=== PATIENT | female | born 1945 | race Caucasian/White ===

== ENCOUNTER 2016-08-23 16:09 | Inpatient (IN) | payer MEDICAID, MEDICARE ==
[~2016-08-23] VITALS: Ht 162.6 cm; Wt 72.1 kg
[~2016-08-23 16:09] MED LIST: /AUGM875TA OR; /AUGM875TA PO; /CELE20CA PO; /DULO30CA OR; /ESOM40CA OR; /ONDA4TA OR; /ONDA4TA PO; /PRAV20TA PO; /PREG100CA PO; ACET650S PO; ALLE25CA PO; AMBIE; AMBIEN OR; ANAS0.12 OR; ASA OR; ASPI81TA3 OR; ASPI81TA83 OR; BENT; BENT20TA OR; BENTYL PO; CALCCHW12 OR; CENTRUM PO; CIPR25SS PO; COLA100C2 OR; COZA100T OR; DICY10CA2 OR; DOCU10ELUD PO; FIBEPOW PO; FLAG500T PO; MIRALEX PO; MOTRIN PM PO; NITROGLYCERINE PO; OXYC10TA97 PO; PAXI20TA OR; PERC5TAB8 PO; PLAV75TA2 OR; TRAM50TA2 OR; VALS80CA PO; VITA500C PO; XANA0.5T PO; ZOCO5TAB OR; ZOCOR PO; [UNRECOGNIZED DRUG - OTHER] PO; asa OR
--- NOTE | 2016-08-23 17:06 | REP ---
Clinical: Weakness. Comparison: 03/18/2015. Findings: Mediastinum and cardiac silhouette are normal. Lung warner demonstrate chronic interstitial changes without obvious consolidation, effusion, or pneumothorax. Skeletal structures stable. Impression: Chronic stable changes. No acute cardiopulmonary process. Signed by Raoul Henriquez MD 08/23/2016 04:58 P
--- NOTE | 2016-08-23 17:20 | REP ---
Clinical: Weakness. Comparison: 05/16/2012 . Findings: Age-related atrophy and microvascular ischemic changes are appreciated. The ventricles and sulci are symmetric. Ayala-white differentiation is maintained. There is no evidence for acute intracranial hemorrhage, mass/mass effect, pathology or infarction. No extra-axial fluid collection. Calvarium is intact. Paranasal sinuses and mastoid air cells are clear. Impression: Age related atrophy and microvascular ischemic changes including old left cerebellar infarction. No acute intracranial hemorrhage, infarction, or mass/mass effect. Signed by Raoul Henriquez MD 08/23/2016 05:11 P
[2016-08-23 17:28] LABS: BASO % 0.4 % (0.0-1.0); EOS # 0.4 K/mm3 (0.0-0.50); EOS % 3.5 % (0.0-3.0); LARGE UNSTAINED CELL # 0.3 K/mm3 (0.0-0.4); LARGE UNSTAINED CELL % 2.3 % (0.0-4.0); LYMPH # 2.3 K/mm3 (1.5-4.5); MEAN CORPUSCULAR HEMOGLOBIN 28.3 pg (27.0-33.0); MEAN CORPUSCULAR VOLUME 88.5 fl (80.0-96.0); MONO # 0.7 K/mm3 (0.0-0.8); MONO % 5.5 % (0.0-5.0); NEUTROPHILS % 68.2 % (36.0-66.0); PLATELET COUNT, AUTOMATED 605 k/mm3 (150-450); RED CELL DISTRIBUTION WIDTH 14.9 % (11.5-14.5); WHITE BLOOD COUNT 11.7 K/mm3 (4.0-10.0)
[2016-08-23 17:32] LABS: CREATININE FOR GFR 1.17 MG/DL (0.55-1.02); GLOMERULAR FILTRATION RATE 48.7 (>39); POTASSIUM SERUM 3.9 MEQ/L (3.5-5.1)
[2016-08-23 17:46] LABS: INR 0.95
[2016-08-23] MEDS ORDERED: ASPIRIN 81 MG CHEW TABLET As Ordered ONE (19:35)
[2016-08-23] MEDS ORDERED: ATEN25TA PO (19:42)
[2016-08-23] MEDS ORDERED: TIZA4CAP3 PO (19:42)
[2016-08-23] MEDS ORDERED: OMEP40CA2 PO (19:42)
[2016-08-23] MEDS ORDERED: RANI150T PO (19:42)
[2016-08-23] MEDS ORDERED: AMLO5TAB2 PO (19:42)
[2016-08-23] MEDS ORDERED: ALPR0.5T3 PO (19:42)
[2016-08-23] MEDS ORDERED: PRAV40TA2 PO (19:42)
[2016-08-23] MEDS ORDERED: GABA300C3 PO (19:42)
[2016-08-23] MEDS ORDERED: IBUP800T23 PO (19:44)
[2016-08-23] MEDS ORDERED: HYDR-3713 PO (19:44)
[2016-08-23] MEDS ORDERED: CYMB60CA3 PO (19:44)
[2016-08-23] MEDS ORDERED: ASPI325T PO (19:44)
[2016-08-23] MEDS ORDERED: ONDANSETRON 4MG/2ML VIAL (J2405) IV PRN (19:45)
[2016-08-23] MEDS ORDERED: ACETAMINOPHEN TAB 650MG DOSE (2X325MG) PO PRN (19:45)
[2016-08-23 20:18] LABS: BASO % 0.4 % (0.0-1.0); EOS # 0.4 K/mm3 (0.0-0.50); EOS % 3.1 % (0.0-3.0); LARGE UNSTAINED CELL # 0.3 K/mm3 (0.0-0.4); LARGE UNSTAINED CELL % 2.3 % (0.0-4.0); LYMPH # 3.1 K/mm3 (1.5-4.5); LYMPH % 23.5 % (24.0-44.0); MEAN CORPUSCULAR HEMOGLOBIN 28.1 pg (27.0-33.0); MEAN CORPUSCULAR HGB CONC 31.8 g/dl (32.0-36.5); MEAN CORPUSCULAR VOLUME 88.3 fl (80.0-96.0); MONO # 0.6 K/mm3 (0.0-0.8); MONO % 4.4 % (0.0-5.0); NEUTROPHILS # 8.7 K/mm3 (1.8-7.7); NEUTROPHILS % 66.4 % (36.0-66.0); PLATELET COUNT, AUTOMATED 508 k/mm3 (150-450); RED CELL DISTRIBUTION WIDTH 15.1 % (11.5-14.5); WHITE BLOOD COUNT 13.1 K/mm3 (4.0-10.0)
[2016-08-23] MEDS ORDERED: OMEPRAZOLE 20 MG CAP PO PRN (20:30)
[2016-08-23] MEDS ORDERED: ALPRAZolam 0.5 MG TAB PO PRN (20:30)
[2016-08-23] MEDS ORDERED: tiZANidine 4 MG TAB PO PRN (20:30)
[2016-08-23 20:39] LABS: CALCIUM LEVEL 8.8 MG/DL (8.8-10.2); CREATININE FOR GFR 1.05 MG/DL (0.55-1.02); GLOMERULAR FILTRATION RATE 55.2 (>39); POTASSIUM SERUM 3.8 MEQ/L (3.5-5.1)
--- NOTE | 2016-08-23 20:47 | HPE ---
DATE OF ADMISSION: 08/23/2016 PRIMARY CARE PHYSICIAN: Dr. Kaylene Rain HOSPITALIST ATTENDING: Dr. Dean Raymundo CHIEF COMPLAINT: Right arm and leg weakness. HISTORY OF PRESENT ILLNESS: A 71-year-old female with a history of cerebrovascular accident (CVA) 2004, hypertension, reflux, depression, chronic back pain, coronary artery disease (CAD), myocardial infarction (MA), cardiac stents, bowel resection, hysterectomy, adenoidectomy, tonsil ectomy, active smoker. Still smokes three to four cigarettes daily. No alcohol use. 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 Trial of cardiopulmonary resuscitation (CPR) with no intubation presented to the emergency room with 2-day complaint of right arm and leg weakness. Patient noted some changes on Monday, when she complained of right shoulder pain, which was achy. She is right-handed. In general she has noted right arm and leg weakness. "I had a hard time walking and unable to write since Monday." Patient complained of dragging her right foot and holding onto park. Since that time she otherwise denies any palpitations, lightheadedness, chest pain, pressure, nausea, vomiting , diarrhea, fevers, chills, cough. No complaints of any dizziness. Patient had not taken any medications for pain or for the weakness. She had not called her neurologist. Usually follows with Dr. Tan as outpatient and takes aspirin 325 mg daily. Patient was noted to have some incomprehensible speech for the past 2 days. No difficulty with understanding. She was sent from [facility] to be evaluated in the emergency room. CT of the head was negative. Hospitalist service was called for evaluation of patient's complaints of right-sided weakness. PAST MEDICAL HISTORY: 1. Hypertension. 2. Reflux. 3. Depression. 4. Back pain. 5. CVA 2004. 6. CAD. PAST SURGICAL HISTORY: 1. Cardiac stents. 2. Bowel resection. 3. Hysterectomy. 4. Adenoidectomy. 5. Tonsillectomy. ALLERGIES: No known drug allergies. HOME MEDICATIONS: - aspirin 325 daily - gabapentin 300 three times a day - tizanidine 4 mg every 8 as needed - alprazolam 0.5 as needed - atenolol 25 daily - Norvasc 5 daily - pravastatin 40 daily - Zantac 150 daily - omeprazole 40 as needed - Vicodin, which she does not take anymore - Motrin 800 three times daily as needed - duloxetine 60 mg daily SOCIAL HISTORY: Continues to smoke three to four cigarettes per day. No alcohol use. Retired member of the [employer] of [employer]. REVIEW OF SYSTEMS: A 12-point system otherwise negative aside from positive findings in history of present illness (HPI). PHYSICAL EXAMINATION: Blood pressure on arrival 191/100, on admission 146/72, pulse 86, respiratory rate 16, temperature 97.6, pulse oximetry 100% to 98% on room air. 72.57 kg, 5 feet 4 inches tall. Generally, patient is awake, alert, oriented times three, answering questions appropriately. No facial asymmetry. Tongue is midline. Speech is fluent. No respiratory distress. No facial numbness. Slight dysmetria with [id number] testing on the right. Lungs are clear to auscultation. No wheezes, rales, or rhonchi. Heart: S1, S2, sinus rhythm. Abdomen is soft, nontender, nondistended. Positive bowel sounds. Extremities: No cyanosis, clubbing, or pitting edema. Neurologically, patient is awake, alert, oriented times three. Face is symmetric. Tongue is midline. Patient has fluent speech. No pronator drift. No Babinski bilaterally. Strength is 5/5 times four extremities. No sensory disturbance. EKG: At the bedside sinus rhythm. Ventricular rate of 87. LABORATORY DATA: White count 11.7, hemoglobin 12, hematocrit 39, platelet count 605. INR 0.95. A positive blood. Sodium 139, potassium 3.9, chloride 106, bicarbonate 25, BUN 11, creatinine 1.17 , glucose 99, calcium 9.0. INR 0.95. Chest x-ray: Chronic stable changes. No acute cardiopulmonary process. CT head: Age-related atrophy. Microvascular ischemic changes, including left cerebellar infarct. No acute intracranial hemorrhage, infarct, or mass effect. ASSESSMENT AND PLAN: This is a 71-year-old female with a history of cerebrovascular accident (CVA), on chronic aspirin, hypertension, reflux, depression, back pain, coronary artery disease (CAD), stents, bowel resection, hysterectomy, adenoidectomy, tonsillectomy, actively uses tobacco, who presents to the emergency room with 2-day history of right-sided weakness, unable to ambulate and unable to write on Monday, dragging her right foot. Patient was found to have a normal CT of the head. Hospitalist service was called for admission to evaluate complaints of right-sided weakness and difficulty writing. Patient will be admitted as an inpatient for 2 midnights for the following issues: 1. Right-sided weakness. Patient denied any headache. With her history of CVA in the past on chronic aspirin, patient will be admitted to telemetry to rule out atrial fibrillation or recurrent CVA. Dr. Tan has been consulted from neurology. She will be monitored with neurologic checks every 4 hours. MRI/MRA of the brain. Per Dr. Tan continue on aspirin 325 daily. No changes in medications until MRI is obtained. 2. History of CAD and stents. Continue on aspirin, pravastatin. Patient is not on beta amrit. 3. Hypertension. Continue on atenolol and Norvasc with holding parameters. 4. History of reflux. Continue on Prilosec. 5. Depression. Continue on duloxetine. 6. Chronic back pain and right shoulder pain. Continue, as stated, Tylenol. 7. Active tobacco use. Tobacco cessation counseling and nicotine patch. 8. Code status. Patient is DO NOT INTUBATE. Trial of CPR. Medical order for life-sustaining treatment (MOLST) form has been signed. Patient will be assigned to Dr. Dean Raymundo at 7 a.m. on 08/24/2016.\\ Addendum: per radiologist, Acute basal ganglia CVA. Per Dr. Tan, neurologist java application engineer, continue low dose aspirin at 81 mg daily and add plavix. MTDD
--- NOTE | 2016-08-23 21:20 | REPUSA ---
MRA of the brain Clinical history: stroke. Technique: [id number] MRA images of the brain were obtained without administration of contrast. 3 -D MIP images were also obtained. Findings: The vascular structures extending from the distal carotid and vertebrobasilar arterial syst ems, through the council of [place], demonstrate normal caliber and contour. There is no evidence of an eurysm, stenosis, or thrombosis. Impression: Unremarkable MRA examination of the brain.
--- NOTE | 2016-08-23 21:20 | REPUSA ---
MRI of the brain Clinical history: stroke. Technique: Multiecho multiplanar MRI images of the brain were obtained without administration of cont rast. Diffusion weighted images with ADC mapping was also obtained. Findings: The ventricles and sulci are symmetric but prominent in size bilaterally. There is chronic encephalom alacia in the left cerebellar hemisphere. The brain parenchyma demonstrates restricted diffusion in t he left basal ganglia consistent with an acute infarct. Periventricular and subcortical white matter T2 hyperintensity is scattered bilaterally. There is no midline shift, mass effect, or extra-axial fl uid collection. The midline intracranial structures do not demonstrate any gross abnormalities. The c ervical cranial junction is intact. The orbits are unremarkable. The visualized paranasal sinuses and mastoid air cells are clear. The osseous structures and superficial soft tissues are unremarkable. T he vascular structures demonstrate appropriate flow voids. Impression: 1. Acute infarct in the left basal ganglia. No surrounding mass effect or edema. 2. Moderate cerebral atrophy with chronic small vessel ischemic disease. Encephalomalacia the left ce rebellar hemisphere. Findings were discussed with the hospitalist at 9:15 PM on 08/23/2016.
--- NOTE | 2016-08-23 21:27 | IPN ---
DATE: 08/23/2016 Per Radiology, the patient's MRI of the brain for Carrie Calero shows an acute left basal ganglia cerebrovascular accident. Dr. Tan, neurologist sales promotion representative, had recommended aspirin 81 mg and Plavix to be given. The patient will be given Plavix 75 mg this evening, and we will change the aspirin from 325 mg to 81 mg daily. Will continue with neurologic checks, monitor for worsening changes or transformation to hemorrhagic cerebrovascular accident. WHITNEY
[2016-08-23] MEDS ORDERED: CLOPIDOGREL 75 MG TAB PO ONE (21:30)
[2016-08-23] MEDS ORDERED: CLOPIDOGREL 75 MG TAB As Ordered ONE (21:33)
[2016-08-23] MEDS ORDERED: NORCO, ANEXSIA 5/325MG TABLET (HYDROcodone/ACETAMINOPHEN) As Ordered ONE (22:18)
[2016-08-23 22:25] VITALS: BP 137/94
--- NOTE | 2016-08-23 22:32 | EDDOCDS ---
Physician Documentation [facility] Name: Carrie Calero Age: 71 yrs Sex: Female : 1945 Arrival Date: 08/23/2016 Time: 16:09 Bed 5 Private MD: Kaylene Rain Disposition: 08/23/16 19:34 Hospitalization ordered by Amaris Law for Inpatient Admission. Preliminary diagnosis is Weakness - right sided, rule out CVA. - Bed requested for 4 [facility] (Former[facility]). - Status is Inpatient Admission. af2 - Condition is Stable. - Problem is new. - Symptoms are unchanged. Historical: - Allergies: no known allergies; - Home Meds: 1. gabapentin 300 mg Oral tab three times a day 2. tizanidine 4 mg oral tab 1 tab every 8 hours PRN 3. alprazolam 0.5 mg Oral tab daily PRN 4. atenolol 25 mg Oral tab once daily (Last dose: 08/22/2016) 5. amlodipine 5 mg Oral tab 1 tab once daily (Last dose: 08/22/2016) 6. pravastatin 40 mg oral tab 1 tab once daily (Last dose: 08/22/2016) 7. Zantac 150 mg Oral cap once daily 8. omeprazole 40 mg Oral cpDR 1 cap once daily PRN 9. VICODIN 5/325MG as needed 10. Motrin 800 mg Oral tab 1 tab 3 times per day PRN 11. duloxetine 60 mg Oral cpDR 1 cap once daily (Last dose: 08/22/2016) - PMHx: Hypertension; GERD; Depression; BACK PAIN; STROKE 2004; - PSHx: Cardiac stents; Bowel resection; Hysterectomy; Adenoidectomy; Tonsillectomy; - Social history: Smoking status: Patient uses tobacco products, current every day smoker. No barriers to communication noted, The patient speaks fluent Georgian, Speaks appropriately for age. - Family history: Not pertinent. - : The pt / caregiver states he / she is not on anticoagulants. Home medication list is obtained from the patient. - Exposure Risk Screening:: None identified. Vital Signs: 08/23 16:14 BP 191 / 100; Pulse 87; Resp 16; Temp 97.6(O); Pulse Ox 100% ; Weight 72.57 kg / 159.99 lr2 lbs (R); Height 5 ft. 4 in. (162.56 cm); 16:14 BP 182 / 102 (man/); lr2 16:47 BP 119 / 82 (auto/); ck1 16:48 Pulse 78 MON; Pulse Ox 99% ; ck1 18:05 BP 148 / 100 (auto/); ck1 18:06 Pulse 74 MON; Pulse Ox 96% ; ck1 18:36 BP 146 / 72 (auto/); ck1 18:37 Pulse 86 MON; Pulse Ox 98% ; ck1 19:05 BP 148 / 78 (auto/); cf2 19:06 Pulse 72 MON; Pulse Ox 97% ; cf2 19:35 BP 149 / 100 (auto/); cf2 19:36 Pulse 74 MON; Pulse Ox 97% ; cf2 21:11 BP 160 / 88 (auto/); cf2 21:12 Pulse 78 MON; cf2 21:14 Pulse 80 MON; Pulse Ox 98% ; cf2 21:20 Pulse 76 MON; Pulse Ox 96% ; cf2 21:26 Pulse 82 MON; Pulse Ox 95% ; cf2 21:32 Pulse 76 MON; Pulse Ox 95% ; cf2 21:36 Pulse 72 MON; Pulse Ox 97% ; cf2 21:43 Pulse 72 MON; Pulse Ox 96% ; cf2 21:50 Pulse 72 MON; Pulse Ox 96% ; cf2 16:14 Body Mass Index 27.46 (72.57 kg, 162.56 cm) lr2 MDM: 16:38 Email Specialist/Pulse Ox/q 15 min VS ordered. sd1 16:38 Accucheck ordered. sd1 16:38 IV Saline Lock ordered. sd1 16:38 Rhythm Strip to chart ordered. sd1 16:38 Basic Metabolic Profile Ordered. EDMS 16:38 CBC with Diff Ordered. EDMS 16:38 Partial Thromboplastin Time Ordered. EDMS 16:38 Prothrombin Time Profile\E\INR Ordered. EDMS 16:39 Chest, 1 View Ordered. EDMS 16:39 Type & Screen Ordered. EDMS 16:39 CT Head Without Contrast Ordered. EDMS 16:39 ECG WITH READING ER PHYS+CARDIAG ordered. EDMS 19:02 Basic Metabolic Profile Reviewed. br1 19:02 CBC with Diff Reviewed. br1 19:02 Partial Thromboplastin Time Reviewed. br1 19:02 Prothrombin Time Profile\E\INR Reviewed. br1 19:02 Type & Screen Reviewed. br1 19:02 CT Head Without Contrast Reviewed. br1 19:02 Chest, 1 View Reviewed. br1 19:14 Aspirin 324 mg PO once ordered. br1 19:15 Urinalysis Ordered. EDMS 19:15 Urine Culture Ordered. EDMS 19:15 BED REQUEST+ADM ordered. EDMS 19:22 MRI Screening Tool - Place on chart, inform RN ordered. br1 19:23 -MRA-Brain without contrast Ordered. EDMS 19:23 -MRI-Brain without Ordered. EDMS 19:38 NO ADDED SALT DIET ordered. EDMS 19:39 BASIC METABOLIC PROFILE Ordered. EDMS 19:39 CBC WITH DIFFERENTIAL Ordered. EDMS 19:39 PHYSICAL THERAPY EVAL & TREAT ordered. EDMS 19:40 Admission / Observation Status ordered. EDMS 20:32 MRI Screening Tool - Place on chart, inform RN complete. kb5 20:50 Financial registration complete. zo 21:50 Plavix - Clopidogrel 75 mg PO once ordered. cf2 Administered Medications: 19:34 Drug: Aspirin 324 mg [aspirin 81 mg chewable tablet (4 tabs)] Route: PO; cf2 21:30 Drug: Plavix - Clopidogrel 75 mg [clopidogrel 75 mg tablet (1 tabs)] Route: PO; cf2 21:50 Follow up: Response: No significant change. cf2 22:08 Follow up: Response: No significant change. cf2 Signatures: Dispatcher [employer] [facility] Nany Coon MD MD sd1 Carmtia Doe RN RN [facility] CenterAle RN RN dauLis Delacruz Kristopher, TELEPHONE STATION INSTALLER TELEPHONE STATION INSTALLER kb5 Naveed Lion MD MD br1 Gem Dumas RN RN mk4 Elena BeltranRN RN af2 Eufemia Smith,RN RN cf2 MTDD
--- NOTE | 2016-08-23 22:32 | EDDOCDS ---
Nurse's Notes [facility] Name: Carrie Calero Age: 71 yrs Sex: Female : 1945 Arrival Date: 08/23/2016 Time: 16:09 Bed 5 Private MD: Kaylene Rain Diagnosis: Weakness-right sided, rule out CVA Presentation: 08/23 16:18 Presenting complaint: Patient states: right and leg weakness started 2 days. no change srm in symptoms . no facial asymmetry and tongue midline. speech normal at this time. 2 days speech was incomprehensible. all symptoms started on Monday08/21/2016. sent from [facility]. Adult Sepsis Screening: The patient does not have new or worsening altered mentation. Patient's respiratory rate is less than 22. Systolic blood pressure is greater than 100. Patient has a qSOFA score of 0- Negative Sepsis Screen. Suicide/Homicide risk assessment- the patient denies having any suicidal and/or homicidal ideations and does not present with any other emotional, behavioral or mental health complaints. Status: Patient is not a financial service rep or dependent. Transition of care: Patient was received from [facility]. 16:18 Acuity: MARIUSZ Level 3 srm 16:18 Method Of Arrival: Walkin/Carried/Asstd srm Triage Assessment: 16:29 General: Appears in no apparent distress, Behavior is appropriate for age, cooperative. srm Pain: Pain currently is 8 out of 10 on a pain scale. Historical: - Allergies: no known allergies; - Home Meds: 1. gabapentin 300 mg Oral tab three times a day 2. tizanidine 4 mg oral tab 1 tab every 8 hours PRN 3. alprazolam 0.5 mg Oral tab daily PRN 4. atenolol 25 mg Oral tab once daily (Last dose: 08/22/2016) 5. amlodipine 5 mg Oral tab 1 tab once daily (Last dose: 08/22/2016) 6. pravastatin 40 mg oral tab 1 tab once daily (Last dose: 08/22/2016) 7. Zantac 150 mg Oral cap once daily 8. omeprazole 40 mg Oral cpDR 1 cap once daily PRN 9. VICODIN 5/325MG as needed 10. Motrin 800 mg Oral tab 1 tab 3 times per day PRN 11. duloxetine 60 mg Oral cpDR 1 cap once daily (Last dose: 08/22/2016) - PMHx: Hypertension; GERD; Depression; BACK PAIN; STROKE 2004; - PSHx: Cardiac stents; Bowel resection; Hysterectomy; Adenoidectomy; Tonsillectomy; - Social history: Smoking status: Patient uses tobacco products, current every day smoker. No barriers to communication noted, The patient speaks fluent Zambian, Speaks appropriately for age. - Family history: Not pertinent. - : The pt / caregiver states he / she is not on anticoagulants. Home medication list is obtained from the patient. - Exposure Risk Screening:: None identified. Screenin:25 Screening information is obtained from the patient. Fall risk: No risks identified. mk4 Assistance ADL's: requires no assistance with activities of daily living. Abuse/DV Screen: The patient / caregiver reports he/she is: not in a situation that causes fear, pain or injury. Nutritional screening: No deficits noted. Advance Directives: Currently, there is no health care proxy. There is no active DNR order. There is no living will. There is no Power of Professional Services Manager. Advance directive information has not previously been placed in an [facility] medical record. home support is adequate. Assessment: 16:25 General: Appears in no apparent distress, pt transferred to my room and my care . mk4 General: pt states she " may have had a seizure a few days ago" pt states she had one before in 2004, pt . Neurological: Level of Consciousness is awake, alert, Oriented to person, place, time. Neurological: Gait is steady, Speech is normal, Facial symmetry appears normal, Denies weakness blurred vision headache. Respiratory: Airway is patent Respiratory effort is even, unlabored, Respiratory pattern is regular. 16:40 General: Appears in no apparent distress, Charge nurse aware of need for monitored bed mk4 for pt. Respiratory:. 17:40 General: Appears in no apparent distress, comfortable, Behavior is appropriate for age, ck1 cooperative. Pain: Location: head Pain currently is 8 out of 10 on a pain scale. Neurological: Level of Consciousness is awake, alert, obeys commands, Oriented to person, place, time, Gait is steady, Speech is normal, Facial symmetry appears normal. Respiratory: Respiratory effort is unlabored, Respiratory pattern is regular, symmetrical. Derm: Skin is pink, warm & dry. Musculoskeletal: Circulation, motion, and sensation intact. 18:33 Reassessment: Patient appears in no apparent distress at this time. ck1 19:44 General: Patient states she may "have to leave and come back tomorrow because my cf2 has seizures and he needs to go home and take his medications". Spoke with patient regarding importance of staying for MRI and MD made aware . 21:51 General: Patient alert and oriented, offers no complaints. No neuro deficits. cf2 Vital Signs: 16:14 BP 191 / 100; Pulse 87; Resp 16; Temp 97.6(O); Pulse Ox 100% ; Weight 72.57 kg (R); lr2 Height 5 ft. 4 in. (162.56 cm); 16:14 BP 182 / 102 (man/); lr2 16:47 BP 119 / 82 (auto/); ck1 16:48 Pulse 78 MON; Pulse Ox 99% ; ck1 18:05 BP 148 / 100 (auto/); ck1 18:06 Pulse 74 MON; Pulse Ox 96% ; ck1 18:36 BP 146 / 72 (auto/); ck1 18:37 Pulse 86 MON; Pulse Ox 98% ; ck1 19:05 BP 148 / 78 (auto/); cf2 19:06 Pulse 72 MON; Pulse Ox 97% ; cf2 19:35 BP 149 / 100 (auto/); cf2 19:36 Pulse 74 MON; Pulse Ox 97% ; cf2 21:11 BP 160 / 88 (auto/); cf2 21:12 Pulse 78 MON; cf2 21:14 Pulse 80 MON; Pulse Ox 98% ; cf2 21:20 Pulse 76 MON; Pulse Ox 96% ; cf2 21:26 Pulse 82 MON; Pulse Ox 95% ; cf2 21:32 Pulse 76 MON; Pulse Ox 95% ; cf2 21:36 Pulse 72 MON; Pulse Ox 97% ; cf2 21:43 Pulse 72 MON; Pulse Ox 96% ; cf2 21:50 Pulse 72 MON; Pulse Ox 96% ; cf2 16:14 Body Mass Index 27.46 (72.57 kg, 162.56 cm) lr2 Vitals: 21:53 Log In Time N/A - ambulance arrival. cf2 ED Course: 16:10 Patient visited by Kaylene Xie. lr2 16:10 Kaylene Rain DO is Private Physician. lr2 16:10 Patient moved to Waiting lr2 16:21 Triage Initiated srm 16:25 The patient / caregiver is instructed regarding the plan of care and ED course. mk4 16:34 Patient moved to I10 / 23 srm 17:05 Patient visited by Gem Dumas RN. mk4 17:08 Basic Metabolic Profile Sent. mk4 17:08 CBC with Diff Sent. mk4 17:08 Partial Thromboplastin Time Sent. mk4 17:08 Prothrombin Time Profile\\E\\INR Sent. mk4 17:10 Inserted saline lock: 20 gauge in right antecubital area and blood collected. mk4 17:25 Chest, 1 View Returned. EDMS 17:25 CT Head Without Contrast Returned. EDMS 17:27 Za Campbell,RN is Primary Nurse. mcp 17:27 Patient moved to 5 mcp 17:39 Patient visited by Justine Razo. nb2 17:39 Placed in gown. Bed in low position. Call light in reach. Side rails up X2. Cardiac nb2 monitor on. Pulse ox on. NIBP on. 17:39 EKG done. (by ED staff). Reviewed by Martin NAPOLES. nb2 18:15 Patient visited by Za Campbell,JOSE D. ck1 18:43 Patient visited by Za Campbell RN. ck1 18:50 Primary Nurse role handed off by Za Campbell,JOSE D ck1 19:02 Naveed Lion MD is Attending Physician. br1 19:10 Eufemia Smith,JOSE D is Primary Nurse. cf2 19:10 Patient visited by Euefmia Smith RN. cf2 19:13 Patient visited by Naveed Lion MD. br1 19:29 Patient visited by Eufemia Smith,JOSE D. cf2 19:34 Amaris Law is Hospitalizing Provider. br1 19:50 Patient visited by Eufemia Smith RN. cf2 20:14 Patient visited by Eufemia Smith,JOSE D. cf2 20:22 Patient visited by Eufemia Smith,JOSE D. cf2 20:28 Patient visited by Eufemia Smith RN. cf2 20:28 Patient visited by Eufemia Smith RN. cf2 20:36 Patient moved to MRI rs6 21:14 Patient moved to 5 rs6 21:23 Patient visited by Eufemia Smith RN. cf2 21:23 No procedures done that require assistance. cf2 21:40 Urine Culture Sent. cf2 21:40 Urinalysis Sent. cf2 21:49 Patient visited by Eufemia Smith RN. cf2 21:51 Patient visited by Eufemia Smith RN. cf2 22:01 Patient visited by Eufemia Smith RN. cf2 22:06 -MRI-Brain without Returned. EDMS 22:06 -MRA-Brain without contrast Returned. EDMS Administered Medications: 19:34 Drug: Aspirin 324 mg [aspirin 81 mg chewable tablet (4 tabs)] Route: PO; cf2 21:30 Drug: Plavix - Clopidogrel 75 mg [clopidogrel 75 mg tablet (1 tabs)] Route: PO; cf2 21:50 Follow up: Response: No significant change. cf2 22:08 Follow up: Response: No significant change. cf2 Order Results: Lab Order: Basic Metabolic Profile; SPEC'M 08/23/16 17:00 Test: GLUCOSE, FASTING; Value: 99; Range: 83-110; Units: MG/DL; Status: F Test: BLOOD UREA NITROGEN; Value: 11; Range: 7-18; Units: MG/DL; Status: F Test: CREATININE FOR GFR; Value: 1.17; Range: 0.55-1.02; Abnormal: Above high normal; Units: MG/DL; Status: F Test: GLOMERULAR FILTRATION RATE; Value: 48.7; Range: >39; Status: F Test: SODIUM LEVEL; Value: 139; Range: 136-145; Units: MEQ/L; Status: F Test: POTASSIUM SERUM; Value: 3.9; Range: 3.5-5.1; Units: MEQ/L; Status: F Test: CHLORIDE LEVEL; Value: 106; Range: 98-107; Units: MEQ/L; Status: F Test: CARBON DIOXIDE LEVEL; Value: 25; Range: 21-32; Units: MEQ/L; Status: F Test: ANION GAP; Value: 8; Range: 8-16; Units: MEQ/L; Status: F Test: CALCIUM LEVEL; Value: 9.0; Range: 8.8-10.2; Units: MG/DL; Status: F Test Note: ; Units are mL/min/1.73 m2 Chronic Kidney Disease Staging per NKF: Stage I & II GFR >=60 Normal to Mildly Decreased Stage III GFR 30-59 Moderately Decreased Stage IV GFR 15-29 Severely Decreased Stage V GFR <15 Very Little GFR Left ESRD GFR <15 on BUSINESS REPRESENTATIVE Lab Order: CBC with Diff; SPEC'M 08/23/16 17:00 Test: WHITE BLOOD COUNT; Value: 11.7; Range: 4.0-10.0; Abnormal: Above high normal; Units: K/mm3; Status: F Test: RED BLOOD COUNT; Value: 4.46; Range: 4.00-5.40; Units: M/mm3; Status: F Test: HEMOGLOBIN; Value: 12.6; Range: 12.0-16.0; Units: g/dl; Status: F Test: HEMATOCRIT; Value: 39.5; Range: 36.0-47.0; Units: %; Status: F Test: MEAN CORPUSCULAR VOLUME; Value: 88.5; Range: 80.0-96.0; Units: fl; Status: F Test: MEAN CORPUSCULAR HEMOGLOBIN; Value: 28.3; Range: 27.0-33.0; Units: pg; Status: F Test: MEAN CORPUSCULAR HGB CONC; Value: 32.0; Range: 32.0-36.5; Units: g/dl; Status: F Test: RED CELL DISTRIBUTION WIDTH; Value: 14.9; Range: 11.5-14.5; Abnormal: Above high normal; Units: %; Status: F Test: PLATELET COUNT, AUTOMATED; Value: 605; Range: 150-450; Abnormal: Above high normal; Units: k/mm3; Status: F Test: NEUTROPHILS %; Value: 68.2; Range: 36.0-66.0; Abnormal: Above high normal; Units: %; Status: F Test: LYMPH %; Value: 20.0; Range: 24.0-44.0; Abnormal: Below low normal; Units: %; Status: F Test: MONO %; Value: 5.5; Range: 0.0-5.0; Abnormal: Above high normal; Units: %; Status: F Test: EOS %; Value: 3.5; Range: 0.0-3.0; Abnormal: Above high normal; Units: %; Status: F Test: BASO %; Value: 0.4; Range: 0.0-1.0; Units: %; Status: F Test: LARGE UNSTAINED CELL %; Value: 2.3; Range: 0.0-4.0; Units: %; Status: F Test: NEUTROPHILS #; Value: 8.0; Range: 1.8-7.7; Abnormal: Above high normal; Units: K/mm3; Status: F Test: LYMPH #; Value: 2.3; Range: 1.5-4.5; Units: K/mm3; Status: F Test: MONO #; Value: 0.7; Range: 0.0-0.8; Units: K/mm3; Status: F Test: EOS #; Value: 0.4; Range: 0.0-0.50; Units: K/mm3; Status: F Test: BASO #; Value: 0.0; Range: 0.0-0.2; Units: K/mm3; Status: F Test: LARGE UNSTAINED CELL #; Value: 0.3; Range: 0.0-0.4; Units: K/mm3; Status: F Lab Order: Partial Thromboplastin Time; SPEC'M 08/23/16 17:00 Test: PARTIAL THROMBOPLASTIN TIME; Value: 27.9; Range: 26.6-37.1; Units: SECONDS; Status: F Lab Order: Prothrombin Time Profile\\E\\INR; SPEC'M 08/23/16 17:00 Test: PROTHROMBIN TIME; Value: 12.8; Range: 12.3-14.5; Units: SECONDS; Status: F Test: INR; Value: 0.95; Status: F Test Note: ; THERAPUTIC HUMAN INR VALUES INDICATIONS NORMAL RANGES PROPHYLAXIS/TREATMENT OF: VENOUS THROMBOSIS 2.0-3.0 PULMONARY EMBOLISM 2.0-3.0 PREVENTION OF SYSTEMIC EMBOLISM FROM: TISSUE HEART VALVES 2.0-3.0 ACUTE MYOCARDIAL INFARCTION 2.0-3.0 VALVULAR HEART DISEASE 2.0-3.0 ATRIAL FIBRILLATION 2.0-3.0 MECHANICAL VALVES(HIGH RISK) 2.5-3.5 RECURRENT MYOCARDIAL INFARCTION 2.5-3.5 Lab Order: Type & Screen; SPEC'M 08/23/16 17:00 Test: BLOOD TYPE; Value: A POS; Status: F Test: AB SCREEN (INDIRECT ROBERTH)VIS; Value: NEGATIVE; Status: F Lab Order: Urinalysis; SPEC'M 08/23/16 21:36 Test: APPEARANCE, URINE; Value: CLOUDY; Range: CLEAR; Abnormal: Above high normal; Status: F Test: COLOR, URINE; Value: ELENA; Range: YELLOW; Status: F Test: PH,URINE; Value: 5.0; Range: 5.0-9.0; Units: UNITS; Status: F Test: SPECIFIC GRAVITY URINE AUTO; Value: 1.025; Range: 1.002-1.035; Status: F Test: PROTEIN, URINE AUTO; Value: 1+; Range: NEGATIVE; Abnormal: Above high normal; Units: mg/dL; Status: F Test: GLUCOSE, URINE (UA) AUTO; Value: NEGATIVE; Range: NEGATIVE; Units: mg/dL; Status: F Test: KETONE, URINE AUTO; Value: TRACE; Range: NEGATIVE; Abnormal: Above high normal; Units: mg/dL; Status: F Test: UROBILINOGEN, URINE AUTO; Value: 0.2; Range: 0.0-2.0; Units: mg/dL; Status: F Test: BILIRUBIN, URINE AUTO; Value: NEGATIVE; Range: NEGATIVE; Status: F Test: NITRITE, URINE AUTO; Value: NEGATIVE; Range: NEGATIVE; Status: F Test: LEUKOCYTE ESTERASE, URINE AUTO; Value: 3+; Range: NEGATIVE; Abnormal: Above high normal; Status: F Test: BLOOD, URINE BLOOD; Value: NEGATIVE; Range: NEGATIVE; Status: F Test: WBC, URINE AUTO; Value: 52; Range: 0-3; Abnormal: Above high normal; Units: /HPF; Status: F Test: RBC, URINE AUTO; Value: 17; Range: 0-3; Abnormal: Above high normal; Units: /HPF; Status: F Test: BACTERIA, URINE AUTO; Value: 1+; Range: NEGATIVE; Abnormal: Above high normal; Status: F Test: SQUAMOUS EPITHELIAL CELL UR AU; Value: 9; Range: 0-6; Units: /HPF; Status: F Test: MUCUS, URINE; Value: SMALL; Range: NEGATIVE; Status: F Test: HYALINE CAST, URINE AUTO; Value: 16; Range: 0-1; Units: /LPF; Status: F Lab Order: BASIC METABOLIC PROFILE; SPEC08/23/16 20:06 Test: GLUCOSE, FASTING; Value: 114; Range: 83-110; Abnormal: Above high normal; Units: MG/DL; Status: F Test: BLOOD UREA NITROGEN; Value: 11; Range: 7-18; Units: MG/DL; Status: F Test: CREATININE FOR GFR; Value: 1.05; Range: 0.55-1.02; Abnormal: Above high normal; Units: MG/DL; Status: F Test: GLOMERULAR FILTRATION RATE; Value: 55.2; Range: >39; Status: F Test: SODIUM LEVEL; Value: 141; Range: 136-145; Units: MEQ/L; Status: F Test: POTASSIUM SERUM; Value: 3.8; Range: 3.5-5.1; Units: MEQ/L; Status: F Test: CHLORIDE LEVEL; Value: 109; Range: 98-107; Abnormal: Above high normal; Units: MEQ/L; Status: F Test: CARBON DIOXIDE LEVEL; Value: 25; Range: 21-32; Units: MEQ/L; Status: F Test: ANION GAP; Value: 7; Range: 8-16; Abnormal: Below low normal; Units: MEQ/L; Status: F Test: CALCIUM LEVEL; Value: 8.8; Range: 8.8-10.2; Units: MG/DL; Status: F Test Note: ; Units are mL/min/1.73 m2 Chronic Kidney Disease Staging per NKF: Stage I & II GFR >=60 Normal to Mildly Decreased Stage III GFR 30-59 Moderately Decreased Stage IV GFR 15-29 Severely Decreased Stage V GFR <15 Very Little GFR Left ESRD GFR <15 on BUSINESS REPRESENTATIVE Lab Order: CBC WITH DIFFERENTIAL; 08/23/16 20:06 Test: WHITE BLOOD COUNT; Value: 13.1; Range: 4.0-10.0; Abnormal: Above high normal; Units: K/mm3; Status: F Test: RED BLOOD COUNT; Value: 4.11; Range: 4.00-5.40; Units: M/mm3; Status: F Test: HEMOGLOBIN; Value: 11.5; Range: 12.0-16.0; Abnormal: Below low normal; Units: g/dl; Status: F Test: HEMATOCRIT; Value: 36.3; Range: 36.0-47.0; Units: %; Status: F Test: MEAN CORPUSCULAR VOLUME; Value: 88.3; Range: 80.0-96.0; Units: fl; Status: F Test: MEAN CORPUSCULAR HEMOGLOBIN; Value: 28.1; Range: 27.0-33.0; Units: pg; Status: F Test: MEAN CORPUSCULAR HGB CONC; Value: 31.8; Range: 32.0-36.5; Abnormal: Below low normal; Units: g/dl; Status: F Test: RED CELL DISTRIBUTION WIDTH; Value: 15.1; Range: 11.5-14.5; Abnormal: Above high normal; Units: %; Status: F Test: PLATELET COUNT, AUTOMATED; Value: 508; Range: 150-450; Abnormal: Above high normal; Units: k/mm3; Status: F Test: NEUTROPHILS %; Value: 66.4; Range: 36.0-66.0; Abnormal: Above high normal; Units: %; Status: F Test: LYMPH %; Value: 23.5; Range: 24.0-44.0; Abnormal: Below low normal; Units: %; Status: F Test: MONO %; Value: 4.4; Range: 0.0-5.0; Units: %; Status: F Test: EOS %; Value: 3.1; Range: 0.0-3.0; Abnormal: Above high normal; Units: %; Status: F Test: BASO %; Value: 0.4; Range: 0.0-1.0; Units: %; Status: F Test: LARGE UNSTAINED CELL %; Value: 2.3; Range: 0.0-4.0; Units: %; Status: F Test: NEUTROPHILS #; Value: 8.7; Range: 1.8-7.7; Abnormal: Above high normal; Units: K/mm3; Status: F Test: LYMPH #; Value: 3.1; Range: 1.5-4.5; Units: K/mm3; Status: F Test: MONO #; Value: 0.6; Range: 0.0-0.8; Units: K/mm3; Status: F Test: EOS #; Value: 0.4; Range: 0.0-0.50; Units: K/mm3; Status: F Test: BASO #; Value: 0.0; Range: 0.0-0.2; Units: K/mm3; Status: F Test: LARGE UNSTAINED CELL #; Value: 0.3; Range: 0.0-0.4; Units: K/mm3; Status: F Radiology Order: CT Head Without Contrast Test: CT Head Without Contrast REASON FOR EXAMINATION: weakness; Clinical: Weakness.; ; Comparison: 05/16/2012 .; ; Findings:; Age-related atrophy and microvascular ischemic changes are appreciated. The; ventricles and sulci are symmetric. Ayala-white differentiation is maintained.; There is no evidence for acute intracranial hemorrhage, mass/mass effect,; pathology or infarction. No extra-axial fluid collection. Calvarium is intact.; Paranasal sinuses and mastoid air cells are clear.; ; Impression:; Age related atrophy and microvascular ischemic changes including old left; cerebellar infarction.; No acute intracranial hemorrhage, infarction, or mass/mass effect.; ; ; Signed by; Raoul Henriquez MD 08/23/2016 05:11 P; Radiology Order: Chest, 1 View Test: Chest, 1 View REASON FOR EXAMINATION: weakness; Clinical: Weakness.; ; Comparison: 03/18/2015.; ; Findings: Mediastinum and cardiac silhouette are normal. Lung warner; demonstrate chronic interstitial changes without obvious consolidation, effusion,; or pneumothorax. Skeletal structures stable.; ; Impression:; Chronic stable changes. No acute cardiopulmonary process.; ; ; Signed by; Raoul Henriquez MD 08/23/2016 04:58 P; Radiology Order: -MRA-Brain without contrast Test: -MRA-Brain without contrast REASON FOR EXAMINATION: CVA >4.5hrs; ; MRA of the brain; Clinical history: stroke.; Technique: [id number]-eg-shwihs MRA images of the brain were obtained without administration of contrast. 3; -D MIP images were also obtained.; Findings: The vascular structures extending from the distal carotid and vertebrobasilar arterial syst; ems, through the [place] of [place], demonstrate normal caliber and contour. There is no evidence of an; eurysm, stenosis, or thrombosis.; Impression: Unremarkable MRA examination of the brain.; ; Radiology Order: -MRI-Brain without Test: -MRI-Brain without REASON FOR EXAMINATION: CVA >4.5hrs; ; MRI of the brain; Clinical history: stroke.; Technique: Multiecho multiplanar MRI images of the brain were obtained without administration of cont; rast. Diffusion weighted images with ADC mapping was also obtained.; Findings:; The ventricles and sulci are symmetric but prominent in size bilaterally. There is chronic encephalom; alacia in the left cerebellar hemisphere. The brain parenchyma demonstrates restricted diffusion in t; he left basal ganglia consistent with an acute infarct. Periventricular and subcortical white matter; T2 hyperintensity is scattered bilaterally. There is no midline shift, mass effect, or extra-axial fl; uid collection. The midline intracranial structures do not demonstrate any gross abnormalities. The c; ervical cranial junction is intact. The orbits are unremarkable. The visualized paranasal sinuses and; mastoid air cells are clear. The osseous structures and superficial soft tissues are unremarkable. T; he vascular structures demonstrate appropriate flow voids.; Impression:; 1. Acute infarct in the left basal ganglia. No surrounding mass effect or edema.; 2. Moderate cerebral atrophy with chronic small vessel ischemic disease. Encephalomalacia the left ce; rebellar hemisphere.; Findings were discussed with the hospitalist at 9:15 PM on 08/23/2016.; ; Outcome: 18:15 CT Study completed. ck1 19:05 Discharge Assessment: Patient awake, alert and oriented x 3. No cognitive and/or cf2 functional deficits noted. Patient verbalized understanding of disposition instructions. Patient awake and alert. Oriented to person, place and time. patient administered narcotics - no. The following High Risk Discharge criteria are identified: None. Admitted to PCU. Condition: stable. Property :Personal belongings accompany Pt. 19:34 Decision to Hospitalize by Provider. br1 22:32 Patient left the ED. af2 Signatures: Dispatcher [employer] EDMS Carmita Doe RN RN [facility] Elyssa Fritz RN RN [facility] Za Campbell RN RN ck1 Naveed Lion MD MD br1 Gem Dumas, RN RN mk4 Antolin, Gissell, THIRD MILLER THIRD MILLER rs6 Devin,Elena,RN RN af2 Eufemia Smith,RN RN cf2 Justine Razo2 Kaylene Xie2 MTDD
[2016-08-23] MEDS: ALPRAZolam 0.25 MG TAB PO SCH (22:50)
[2016-08-23] MEDS: GABAPENTIN 300 MG CAP PO SCH (22:50)
[2016-08-24] VITALS: BP 146/66
[2016-08-24 04:00] VITALS: BP 151/71
[2016-08-24 08:00] VITALS: BP 158/77
[2016-08-24 08:07] LABS: MEAN CORPUSCULAR HEMOGLOBIN 28.7 pg (27.0-33.0); MEAN CORPUSCULAR VOLUME 89.7 fl (80.0-96.0); WHITE BLOOD COUNT 12.3 K/mm3 (4.0-10.0)
[2016-08-24 08:34] LABS: ANION GAP 8 MEQ/L (8-16); BLOOD UREA NITROGEN 10 MG/DL (7-18); CALCIUM LEVEL 8.9 MG/DL (8.8-10.2); CARBON DIOXIDE LEVEL 25 MEQ/L (21-32); CHLORIDE LEVEL 108 MEQ/L (98-107); CREATININE FOR GFR 0.92 MG/DL (0.55-1.02); GLOMERULAR FILTRATION RATE > 60.0 (>39); GLUCOSE, FASTING 106 MG/DL (83-110); POTASSIUM SERUM 3.7 MEQ/L (3.5-5.1); SODIUM LEVEL 141 MEQ/L (136-145)
[2016-08-24] MEDS: ASPIRIN 81 MG CHEW TABLET PO SCH (08:57)
[2016-08-24] MEDS: ATENOLOL 25 MG TAB PO SCH (08:57)
[2016-08-24] MEDS: DULoxetine 30 MG CAP (CYMBALTA) PO SCH (08:57)
[2016-08-24] MEDS: amLODIPine 5 MG TAB PO SCH (08:57)
[2016-08-24] MEDS: CLOPIDOGREL 75 MG TAB PO SCH (08:57)
[2016-08-24] MEDS: GABAPENTIN 300 MG CAP PO SCH ×3 (08:57→21:01)
[2016-08-24] MEDS: NICOTINE 7 MG/24 HR TRANSDERMAL TD SCH (08:58)
[2016-08-24] MEDS: PRAVASTATIN 20 MG TAB PO SCH (08:58)
[2016-08-24] MEDS ORDERED: ASPIRIN 325 MG TAB PO SCH (09:00)
--- NOTE | 2016-08-24 09:57 | ECGEPIP ---
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
[2016-08-24 12:00] VITALS: BP 130/59
--- NOTE | 2016-08-24 13:14 | REP ---
MRA CAROTIDS WITHOUT AND WITH CONTRAST: HISTORY: Infarction. CONTRAST: ProHance 25 mL. Unenhanced 2D [id number] and contrast enhanced MR angiography were performed at the level of the carotid bifurcations. There is moderate stenosis of 40% of the right internal carotid artery at its origin. The origin of the right external carotid artery is normal. There is mild stenosis of 20% of the left internal carotid artery at its origin. The origin of the left external carotid artery is normal. There is loss of the normal hyperintense signal in the proximal two-thirds of the left vertebral artery. There is reconstitution of the left vertebral artery at the C3 level. The left vertebral artery is hypoplastic. The right vertebral artery is patent and dominant. IMPRESSION: 1. Moderate stenosis of 40% of the right internal carotid artery at its origin. 2. Mild stenosis of 20% of the left internal carotid artery and its origin. 3. There is loss of the normal hyperintense signal in the proximal two-thirds of the left vertebral artery. This is secondary to severe stenosis or occlusion. Signed by Rory Jones MD 08/24/2016 01:17 P
--- NOTE | 2016-08-24 15:41 | IPN ---
DATE: 08/24/2016 SUBJECTIVE: Today, the patient tells me that she is feeling better. She tells me that the weakness in her right upper extremity and right lower extremity are improved. She tells me that she thinks that her slurring has resolved. She denies any headache, chest pain, fevers, chills, nausea, vomiting, or diarrhea. OBJECTIVE: VITAL SIGNS: Temperature 97.2, pulse 81, respiratory rate 16, blood pressure 158/77, oxygen saturation 95% on room air. GENERAL: She is an obese, female laying flat in bed. She does not appear to be in any acute distress. HEENT: Face appears symmetric. Uvula is midline. Tongue is midline. She has moist mucous membranes. No elevation in central venous pressure (CVP). I do not appreciate any slurred speech or dysarthria or expressive aphasia. CARDIOVASCULAR: S1, S2, regular. RESPIRATORY: Clear. ABDOMEN: Obese. EXTREMITIES: No clubbing, cyanosis, or edema. NEUROLOGIC: Her strength is 4/5 in the right upper and right lower extremity and 5/5 in the other two extremities. Otherwise, neurologically, she appears to be intact. LABORATORY STUDIES: WBC 12.3, hemoglobin 11.4, hematocrit 35.8, platelet count 511. Chemistry panel: Sodium 141, potassium 3.7, chloride 108, bicarbonate 25, BUN 10, creatinine 0.9, TSH within normal limits. Hemoglobin A1c is 6.4. Microbiology: A urine culture is pending. IMAGING: The patient did have a CT scan of the head which revealed age-related atrophy and microvascular ischemic changes, including old left cerebellar infarct. She had a chest x-ray which revealed chronic stable changes. No acute cardiopulmonary process. She had a brain MRI that revealed acute infarct in the left basal ganglia, no surrounding mass effect or edema, as well as moderate cerebral atrophy with chronic small vessel ischemic disease, encephalomalacia of the left cerebellar hemisphere. The patient did have an MRA of the brain that was an unremarkable examination. She also had a carotid MRI that revealed loss of signal in the proximal two-thirds of the left vertebral artery secondary to severe stenosis or occlusion. ASSESSMENT AND PLAN: This is a 71-year-old female with acute cerebrovascular accident (CVA). 1. Acute CVA. The patient has a history of a CVA as well. It is unclear what role the patient's vertebral artery occlusion is playing in this or if there is any intervention, although I do not feel that there is likely any intervention that would benefit her. I have spoken with Dr. Tan of neurology who will see the patient later today. Currently, her blood pressure is controlled with Norvasc and atenolol. She is on Pravachol 40 mg. She is on aspirin 81 mg and Plavix has been added to her regimen during this stay. She is an active smoker. I did advise her that quitting smoking would likely decrease her risk of further strokes. An echocardiogram has been ordered. We will attempt to obtain an outpatient record of her recent echocardiogram to avoid repeating the study. Physical therapy (PT), occupation therapy (OT), and speech therapy evaluations have ordered. 2. Anxiety. The patient is continued on her home Xanax and Cymbalta. 3. Active tobacco use. Cessation counseling offered. She is being provided with a nicotine patch. 4. Chronic back pain. The patient is on Neurontin and tizanidine. 5. Gastroesophageal reflux disease. The patient is on omeprazole. 6. Coronary artery disease. The patient is on aspirin and a statin. She is on a beta amrit. We will defer to her outpatient providers. 7. Hypertension. Please note that the patient has been controlled. She is on atenolol and Norvasc. We will continue to monitor this patient closely with frequent neurologic checks.
[2016-08-24 16:00] VITALS: BP 133/66
[2016-08-24 20:00] VITALS: BP 125/57
[2016-08-24] MEDS: ALPRAZolam 0.25 MG TAB PO SCH (21:01)
[2016-08-25] VITALS: BP 134/94
[2016-08-25 04:00] VITALS: BP 144/90
[2016-08-25 06:38] LABS: MEAN CORPUSCULAR HEMOGLOBIN 28.9 pg (27.0-33.0); MEAN CORPUSCULAR HGB CONC 32.5 g/dl (32.0-36.5); MEAN CORPUSCULAR VOLUME 89.1 fl (80.0-96.0); RED CELL DISTRIBUTION WIDTH 15.4 % (11.5-14.5)
[2016-08-25 06:48] LABS: ANION GAP 9 MEQ/L (8-16); BLOOD UREA NITROGEN 10 MG/DL (7-18); CALCIUM LEVEL 9.1 MG/DL (8.8-10.2); CARBON DIOXIDE LEVEL 25 MEQ/L (21-32); CHLORIDE LEVEL 109 MEQ/L (98-107); CREATININE FOR GFR 0.87 MG/DL (0.55-1.02); GLOMERULAR FILTRATION RATE > 60.0 (>39); GLUCOSE, FASTING 119 MG/DL (83-110); POTASSIUM SERUM 3.8 MEQ/L (3.5-5.1); SODIUM LEVEL 143 MEQ/L (136-145)
--- NOTE | 2016-08-25 07:20 | CR ---
DATE OF CONSULTATION: 08/24/2016 REFERRING PHYSICIAN: Amaris Law MD REASON FOR CONSULTATION: Right-sided weakness. HISTORY OF PRESENT ILLNESS: Carrie Calero is a 71-year-old woman with history of stroke in 2004, chronic back pain, hypertension, coronary artery disease who was at her usual state of health until Monday night when she went to sleep. When she woke up on Monday morning she felt right-sided weakness. She was dragging her right leg. She felt weakness of her right arm. She had mild slurring of speech. She felt imbalance and incoordination. She did not seek medical attention. She states that she assumed that she had a stroke. She came to [facility] two days after the onset of her symptoms. She denies any seizures, dysphagia, diplopia or urinary incontinence. She denies any falls or loss of consciousness. She has history of chronic neck and back pain. She has history of chronic insomnia. PAST MEDICAL HISTORY: Hypertension. Acid reflux. Depression. Chronic back pain. History of stroke in 2004. Coronary artery disease status post coronary stents. Bowel resection. Hysterectomy. Tonsillectomy. Myocardial infarction. ALLERGIES: None. HOME MEDICATIONS: - aspirin 325 mg by mouth daily - gabapentin 300 mg by mouth three times a day - tizanidine 4 mg by mouth three times a day as needed - Xanax 0.5 mg by mouth twice a day as needed - atenolol 25 mg by mouth daily - Norvasc 5 mg by mouth daily - pravastatin 40 mg by mouth daily - Zantac 150 mg by mouth twice a day - Prilosec 40 mg by mouth daily - hydrocodone, which she does not take any more - ibuprofen 800 mg by mouth twice a day as needed - Cymbalta 60 mg by mouth daily SOCIAL HISTORY: She continues to smoke 3-4 cigarettes per day. She denies alcohol or illicit drugs. FAMILY HISTORY: Mother had cerebral hemorrhage. REVIEW OF SYSTEMS: All systems were reviewed and were found to be noncontributory except as mentioned in history present illness. PHYSICAL EXAMINATION: Temperature 97, pulse 66, respiratory rate 16, blood pressure 133/66, 96% saturation on room air. HEART: Regular rate and rhythm. LUNGS: Clear to auscultation. ABDOMEN: Soft, nontender, nondistended. NEUROLOGIC EXAMINATION: Patient is awake, alert, oriented to place, person and time. Normal speech comprehension and repetition. Extraocular muscles are intact. No facial weakness. Tongue and uvula are midline. 5/5 strength on left-sided and 5-/5 strength on the right side throughout. Deep tendon flexes 2+ throughout. Normal sensation to light touch, pinprick, vibration. Gait is normal. There is no pedal edema. EARS, NOSE AND THROAT: Examination is within normal limits. DIAGNOSTIC STUDIES: Her MRI scan of brain was reviewed and showed a small left basal ganglia internal capsule acute ischemic stroke. MRA of brain was within normal limits. MRA of the neck showed right internal carotid artery 40% and left internal carotid artery 20% stenosis. ASSESSMENT: 1. Small left basal ganglia internal capsule ischemic stroke. 2. Tobacco abuse. 3. Hypertension. 4. Dyslipidemia. PLAN 1. She must quit smoking. 2. Aspirin 81 mg by mouth daily and Plavix 75 mg by mouth daily. 3. Echocardiogram. 4. Physical and occupational therapy. 5. Follow with our office in 2 weeks after hospital discharge.
[2016-08-25 08:00] VITALS: BP 146/74
[2016-08-25] MEDS: GABAPENTIN 300 MG CAP PO SCH ×3 (10:11→21:13)
[2016-08-25] MEDS: DULoxetine 30 MG CAP (CYMBALTA) PO SCH (10:11)
[2016-08-25] MEDS: CLOPIDOGREL 75 MG TAB PO SCH (10:11)
[2016-08-25] MEDS: amLODIPine 5 MG TAB PO SCH (10:12)
[2016-08-25] MEDS: ATENOLOL 25 MG TAB PO SCH (10:12)
[2016-08-25] MEDS: ASPIRIN 81 MG CHEW TABLET PO SCH (10:13)
[2016-08-25] MEDS: NICOTINE 7 MG/24 HR TRANSDERMAL TD SCH (10:13)
[2016-08-25] MEDS: PRAVASTATIN 20 MG TAB PO SCH (10:13)
[2016-08-25 12:00] VITALS: BP 125/61
--- NOTE | 2016-08-25 14:13 | IPN ---
DATE OF EXAM: 08/25/2016 SUBJECTIVE: Today, the patient tells me that she is feeling better. She tells me that the weakness is improving. She is not quite back to normal, but she is getting there. She has no other complaints of chest pain, shortness of breath, fevers, chills, nausea, vomiting, or diarrhea. OBJECTIVE: VITAL SIGNS: Temperature 97.3, pulse 84, respiratory rate 18, blood pressure 146/74, oxygen saturation 92% on room air. GENERAL: She is a very pleasant female, laying flat in bed, sleeping peacefully when I enter the room. She is easily arousable to verbal stimuli. She does not appear to be in any distress. HEENT: Cranial nerves II through XII are grossly intact. Face is symmetric. Uvula is midline. CARDIOVASCULAR: S1 and S2, regular. RESPIRATORY: Clear. ABDOMEN: Benign, obese. EXTREMITIES: No clubbing, cyanosis, or edema. 4/5 strength in the right upper and right lower extremity, 5/5 otherwise. LABORATORY STUDIES: WBC 11.0, hemoglobin 11.9, hematocrit 36.6, platelet count 467. Chemistry panel: Sodium 143, potassium 3.8, chloride 109, bicarbonate 25, BUN 10, creatinine 0.8. Microbiology: Urine culture positive for Group B Streptococcus. No new imaging. ASSESSMENT AND PLAN: This is a 71-year-old female status post small left basal ganglia internal capsule ischemic stroke. 1. Acute CVA. Dr. Tan's help is greatly appreciated. The patient has been started on Plavix and she is on aspirin 81 mg. Physical therapy (PT) and occupational therapy (OT) will continue to evaluate here. OT has not cleared her for safe discharge at this time. She is to followup with neurology two weeks after discharge. We are currently awaiting the results of an echocardiogram prior to dispositioning her. Cessation counseling has been offered regarding her tobacco. She did have some vertebral artery stenosis and recommend she follow this up with neurology in the outpatient setting, although there is likely little, if anything can be done for it. Her other risk factors include hypertension and dyslipidemia which are being addressed with antihypertensives and pravastatin. 2. Anxiety. She is continued on her home Xanax and Cymbalta. 3. Tobacco use. Cessation counseling offered. She is provided with a nicotine patch. 4. Chronic back pain. She is on Neurontin and tizanidine. 5. Gastroesophageal reflux disease. She is on omeprazole. 6. Coronary artery disease. She is on an aspirin and a statin as well as a beta amrit. 7. Hypertension. Her blood pressure is controlled. She is on atenolol and Norvasc. DISPOSITION: We are awaiting the results of an echocardiogram and clearance from OT. I suspect she can be dispositioned within the next 24-48 hours.
[2016-08-25 16:00] VITALS: BP 135/82
[2016-08-25 20:00] VITALS: BP 142/68
[2016-08-25] MEDS: ALPRAZolam 0.25 MG TAB PO SCH (21:13)
--- NOTE | 2016-08-25 23:32 | EDDOCDS ---
Physician Documentation [facility] Name: Carrie Calero Age: 71 yrs Sex: Female : 1945 Arrival Date: 08/23/2016 Time: 16:09 Bed 5 Private MD: Kaylene Rain Disposition: 08/23/16 19:34 Hospitalization ordered by Amaris Law for Inpatient Admission. Preliminary diagnosis is Weakness - right sided, rule out CVA. - Bed requested for [facility] (Former[facility]). - Status is Inpatient Admission. af2 - Condition is Stable. - Problem is new. - Symptoms are unchanged. Historical: - Allergies: no known allergies; - Home Meds: 1. gabapentin 300 mg Oral tab three times a day 2. tizanidine 4 mg oral tab 1 tab every 8 hours PRN 3. alprazolam 0.5 mg Oral tab daily PRN 4. atenolol 25 mg Oral tab once daily (Last dose: 08/22/2016) 5. amlodipine 5 mg Oral tab 1 tab once daily (Last dose: 08/22/2016) 6. pravastatin 40 mg oral tab 1 tab once daily (Last dose: 08/22/2016) 7. Zantac 150 mg Oral cap once daily 8. omeprazole 40 mg Oral cpDR 1 cap once daily PRN 9. VICODIN 5/325MG as needed 10. Motrin 800 mg Oral tab 1 tab 3 times per day PRN 11. duloxetine 60 mg Oral cpDR 1 cap once daily (Last dose: 08/22/2016) - PMHx: Hypertension; GERD; Depression; BACK PAIN; STROKE 2004; - PSHx: Cardiac stents; Bowel resection; Hysterectomy; Adenoidectomy; Tonsillectomy; - Social history: Smoking status: Patient uses tobacco products, current every day smoker. No barriers to communication noted, The patient speaks fluent Romanian, Speaks appropriately for age. - Family history: Not pertinent. - : The pt / caregiver states he / she is not on anticoagulants. Home medication list is obtained from the patient. - Exposure Risk Screening:: None identified. Vital Signs: 08/23 16:14 BP 191 / 100; Pulse 87; Resp 16; Temp 97.6(O); Pulse Ox 100% ; Weight 72.57 kg / 159.99 lr2 lbs (R); Height 5 ft. 4 in. (162.56 cm); 16:14 BP 182 / 102 (man/); lr2 16:47 BP 119 / 82 (auto/); ck1 16:48 Pulse 78 MON; Pulse Ox 99% ; ck1 18:05 BP 148 / 100 (auto/); ck1 18:06 Pulse 74 MON; Pulse Ox 96% ; ck1 18:36 BP 146 / 72 (auto/); ck1 18:37 Pulse 86 MON; Pulse Ox 98% ; ck1 19:05 BP 148 / 78 (auto/); cf2 19:06 Pulse 72 MON; Pulse Ox 97% ; cf2 19:35 BP 149 / 100 (auto/); cf2 19:36 Pulse 74 MON; Pulse Ox 97% ; cf2 21:11 BP 160 / 88 (auto/); cf2 21:12 Pulse 78 MON; cf2 21:14 Pulse 80 MON; Pulse Ox 98% ; cf2 21:20 Pulse 76 MON; Pulse Ox 96% ; cf2 21:26 Pulse 82 MON; Pulse Ox 95% ; cf2 21:32 Pulse 76 MON; Pulse Ox 95% ; cf2 21:36 Pulse 72 MON; Pulse Ox 97% ; cf2 21:43 Pulse 72 MON; Pulse Ox 96% ; cf2 21:50 Pulse 72 MON; Pulse Ox 96% ; cf2 16:14 Body Mass Index 27.46 (72.57 kg, 162.56 cm) lr2 MDM: 16:38 Cap Parts Cutter/Pulse Ox/q 15 min VS ordered. sd1 16:38 Accucheck ordered. sd1 16:38 IV Saline Lock ordered. sd1 16:38 Rhythm Strip to chart ordered. sd1 16:38 Basic Metabolic Profile Ordered. EDMS 16:38 CBC with Diff Ordered. EDMS 16:38 Partial Thromboplastin Time Ordered. EDMS 16:38 Prothrombin Time Profile\E\INR Ordered. EDMS 16:39 Chest, 1 View Ordered. EDMS 16:39 Type & Screen Ordered. EDMS 16:39 CT Head Without Contrast Ordered. EDMS 16:39 ECG WITH READING ER PHYS+CARDIAG ordered. EDMS 19:02 Basic Metabolic Profile Reviewed. br1 19:02 CBC with Diff Reviewed. br1 19:02 Partial Thromboplastin Time Reviewed. br1 19:02 Prothrombin Time Profile\E\INR Reviewed. br1 19:02 Type & Screen Reviewed. br1 19:02 CT Head Without Contrast Reviewed. br1 19:02 Chest, 1 View Reviewed. br1 19:14 Aspirin 324 mg PO once ordered. br1 19:15 Urinalysis Ordered. EDMS 19:15 Urine Culture Ordered. EDMS 19:15 BED REQUEST+ADM ordered. EDMS 19:22 MRI Screening Tool - Place on chart, inform RN ordered. br1 19:23 -MRA-Brain without contrast Ordered. EDMS 19:23 -MRI-Brain without Ordered. EDMS 19:38 NO ADDED SALT DIET ordered. EDMS 19:39 BASIC METABOLIC PROFILE Ordered. EDMS 19:39 CBC WITH DIFFERENTIAL Ordered. EDMS 19:39 PHYSICAL THERAPY EVAL & TREAT ordered. EDMS 19:40 Admission / Observation Status ordered. EDMS 20:32 MRI Screening Tool - Place on chart, inform RN complete. kb5 20:50 Financial registration complete. zo 21:50 Plavix - Clopidogrel 75 mg PO once ordered. cf2 08/24 10:38 T-Sheet-- Draft Copy was scanned into [employer] and attached to record. gb Administered Medications: 08/23 19:34 Drug: Aspirin 324 mg [aspirin 81 mg chewable tablet (4 tabs)] Route: PO; cf2 21:30 Drug: Plavix - Clopidogrel 75 mg [clopidogrel 75 mg tablet (1 tabs)] Route: PO; cf2 21:50 Follow up: Response: No significant change. cf2 22:08 Follow up: Response: No significant change. cf2 Signatures: Dis[facility] Nany Coon MD MD sd1 Carmita Doe, RN RN [facility], Ale RN JOSE D daq Licha Crenshaw, Reg Reg gb Derian, Zoeann zo [place], Kamari, SURGICAL TECHNOLOGIST SURGICAL TECHNOLOGIST kb5 Naveed Lion MD MD br1 Gem Dumas RN RN mk4 Elena Beltran,RN RN af2 Eufemia Smith,RN RN cf2 The chart was reviewed and I authenticate all verbal orders and agree with the evaluation and treatment provided.Attachments: 08/24 10:38 T-Sheet-- Draft Copy gb Chart Complete MTDD
--- NOTE | 2016-08-25 23:32 | EDDOCDS ---
Nurse's Notes [facility] Name: Carrie Calero Age: 71 yrs Sex: Female : 1945 Arrival Date: 08/23/2016 Time: 16:09 Bed 5 Private MD: Kaylene Rain Diagnosis: Weakness-right sided, rule out CVA Presentation: 08/23 16:18 Presenting complaint: Patient states: right and leg weakness started 2 days. no change srm in symptoms . no facial asymmetry and tongue midline. speech normal at this time. 2 days speech was incomprehensible. all symptoms started on Monday08/21/2016. sent from [place] [facility]. Adult Sepsis Screening: The patient does not have new or worsening altered mentation. Patient's respiratory rate is less than 22. Systolic blood pressure is greater than 100. Patient has a qSOFA score of 0- Negative Sepsis Screen. Suicide/Homicide risk assessment- the patient denies having any suicidal and/or homicidal ideations and does not present with any other emotional, behavioral or mental health complaints. 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 Transition of care: Patient was received from [facility]. 16:18 Acuity: MARIUSZ Level 3 srm 16:18 Method Of Arrival: Walkin/Carried/Asstd srm Triage Assessment: 16:29 General: Appears in no apparent distress, Behavior is appropriate for age, cooperative. srm Pain: Pain currently is 8 out of 10 on a pain scale. Historical: - Allergies: no known allergies; - Home Meds: 1. gabapentin 300 mg Oral tab three times a day 2. tizanidine 4 mg oral tab 1 tab every 8 hours PRN 3. alprazolam 0.5 mg Oral tab daily PRN 4. atenolol 25 mg Oral tab once daily (Last dose: 08/22/2016) 5. amlodipine 5 mg Oral tab 1 tab once daily (Last dose: 08/22/2016) 6. pravastatin 40 mg oral tab 1 tab once daily (Last dose: 08/22/2016) 7. Zantac 150 mg Oral cap once daily 8. omeprazole 40 mg Oral cpDR 1 cap once daily PRN 9. VICODIN 5/325MG as needed 10. Motrin 800 mg Oral tab 1 tab 3 times per day PRN 11. duloxetine 60 mg Oral cpDR 1 cap once daily (Last dose: 08/22/2016) - PMHx: Hypertension; GERD; Depression; BACK PAIN; STROKE 2004; - PSHx: Cardiac stents; Bowel resection; Hysterectomy; Adenoidectomy; Tonsillectomy; - Social history: Smoking status: Patient uses tobacco products, current every day smoker. No barriers to communication noted, The patient speaks fluent Togolese, Speaks appropriately for age. - Family history: Not pertinent. - : The pt / caregiver states he / she is not on anticoagulants. Home medication list is obtained from the patient. - Exposure Risk Screening:: None identified. Screenin:25 Screening information is obtained from the patient. Fall risk: No risks identified. mk4 Assistance ADL's: requires no assistance with activities of daily living. Abuse/DV Screen: The patient / caregiver reports he/she is: not in a situation that causes fear, pain or injury. Nutritional screening: No deficits noted. Advance Directives: Currently, there is no health care proxy. There is no active DNR order. There is no living will. There is no Power of [place]. Advance directive information has not previously been placed in an [facility] medical record. home support is adequate. Assessment: 16:25 General: Appears in no apparent distress, pt transferred to my room and my care . mk4 General: pt states she " may have had a seizure a few days ago" pt states she had one before in 2004, pt . Neurological: Level of Consciousness is awake, alert, Oriented to person, place, time. Neurological: Gait is steady, Speech is normal, Facial symmetry appears normal, Denies weakness blurred vision headache. Respiratory: Airway is patent Respiratory effort is even, unlabored, Respiratory pattern is regular. 16:40 General: Appears in no apparent distress, Charge nurse aware of need for monitored bed mk4 for pt. Respiratory:. 17:40 General: Appears in no apparent distress, comfortable, Behavior is appropriate for age, ck1 cooperative. Pain: Location: head Pain currently is 8 out of 10 on a pain scale. Neurological: Level of Consciousness is awake, alert, obeys commands, Oriented to person, place, time, Gait is steady, Speech is normal, Facial symmetry appears normal. Respiratory: Respiratory effort is unlabored, Respiratory pattern is regular, symmetrical. Derm: Skin is pink, warm & dry. Musculoskeletal: Circulation, motion, and sensation intact. 18:33 Reassessment: Patient appears in no apparent distress at this time. ck1 19:44 General: Patient states she may "have to leave and come back tomorrow because my cf2 has seizures and he needs to go home and take his medications". Spoke with patient regarding importance of staying for MRI and MD made aware . 21:51 General: Patient alert and oriented, offers no complaints. No neuro deficits. cf2 Vital Signs: 16:14 BP 191 / 100; Pulse 87; Resp 16; Temp 97.6(O); Pulse Ox 100% ; Weight 72.57 kg (R); lr2 Height 5 ft. 4 in. (162.56 cm); 16:14 BP 182 / 102 (man/); lr2 16:47 BP 119 / 82 (auto/); ck1 16:48 Pulse 78 MON; Pulse Ox 99% ; ck1 18:05 BP 148 / 100 (auto/); ck1 18:06 Pulse 74 MON; Pulse Ox 96% ; ck1 18:36 BP 146 / 72 (auto/); ck1 18:37 Pulse 86 MON; Pulse Ox 98% ; ck1 19:05 BP 148 / 78 (auto/); cf2 19:06 Pulse 72 MON; Pulse Ox 97% ; cf2 19:35 BP 149 / 100 (auto/); cf2 19:36 Pulse 74 MON; Pulse Ox 97% ; cf2 21:11 BP 160 / 88 (auto/); cf2 21:12 Pulse 78 MON; cf2 21:14 Pulse 80 MON; Pulse Ox 98% ; cf2 21:20 Pulse 76 MON; Pulse Ox 96% ; cf2 21:26 Pulse 82 MON; Pulse Ox 95% ; cf2 21:32 Pulse 76 MON; Pulse Ox 95% ; cf2 21:36 Pulse 72 MON; Pulse Ox 97% ; cf2 21:43 Pulse 72 MON; Pulse Ox 96% ; cf2 21:50 Pulse 72 MON; Pulse Ox 96% ; cf2 16:14 Body Mass Index 27.46 (72.57 kg, 162.56 cm) lr2 Vitals: 21:53 Log In Time N/A - ambulance arrival. cf2 ED Course: 16:10 Patient visited by Kaylene Xie. lr2 16:10 Kaylene Rain DO is Private Physician. lr2 16:10 Patient moved to Waiting lr2 16:21 Triage Initiated srm 16:25 The patient / caregiver is instructed regarding the plan of care and ED course. mk4 16:34 Patient moved to I10 / 23 srm 17:05 Patient visited by Gem Dumas RN. mk4 17:08 Basic Metabolic Profile Sent. mk4 17:08 CBC with Diff Sent. mk4 17:08 Partial Thromboplastin Time Sent. mk4 17:08 Prothrombin Time Profile\\E\\INR Sent. mk4 17:10 Inserted saline lock: 20 gauge in right antecubital area and blood collected. mk4 17:25 Chest, 1 View Returned. EDMS 17:25 CT Head Without Contrast Returned. EDMS 17:27 Za Campbell,RN is Primary Nurse. mcp 17:27 Patient moved to 5 mcp 17:39 Patient visited by Justine Razo. nb2 17:39 Placed in gown. Bed in low position. Call light in reach. Side rails up X2. Cardiac nb2 monitor on. Pulse ox on. NIBP on. 17:39 EKG done. (by ED staff). Reviewed by Martin NAPOLES. nb2 18:15 Patient visited by Za Campbell,JOSE D. ck1 18:43 Patient visited by Za Campbell RN. ck1 18:50 Primary Nurse role handed off by Za Campbell,JOSE D ck1 19:02 Naveed Lion MD is Attending Physician. br1 19:10 Eufemia Smith,JOSE D is Primary Nurse. cf2 19:10 Patient visited by Eufemia Smith RN. cf2 19:13 Patient visited by Naveed Lion MD. br1 19:29 Patient visited by Eufemia Smith,JOSE D. cf2 19:34 Amaris Law is Hospitalizing Provider. br1 19:50 Patient visited by Eufemia Smith RN. cf2 20:14 Patient visited by Eufemia Smith,JOSE D. cf2 20:22 Patient visited by Eufemia Smith,JOSE D. cf2 20:28 Patient visited by Eufemia Smith RN. cf2 20:28 Patient visited by Eufemia Smith RN. cf2 20:36 Patient moved to MRI rs6 21:14 Patient moved to 5 rs6 21:23 Patient visited by Eufemia Smith RN. cf2 21:23 No procedures done that require assistance. cf2 21:40 Urine Culture Sent. cf2 21:40 Urinalysis Sent. cf2 21:49 Patient visited by Eufemia Smith RN. cf2 21:51 Patient visited by Eufemia Smith RN. cf2 22:01 Patient visited by Eufemia Smith RN. cf2 22:06 -MRI-Brain without Returned. EDMS 22:06 -MRA-Brain without contrast Returned. EDMS 08/24 10:38 T-Sheet-- Draft Copy was scanned into [employer] and attached to record. gb Administered Medications: 08/23 19:34 Drug: Aspirin 324 mg [aspirin 81 mg chewable tablet (4 tabs)] Route: PO; cf2 21:30 Drug: Plavix - Clopidogrel 75 mg [clopidogrel 75 mg tablet (1 tabs)] Route: PO; cf2 21:50 Follow up: Response: No significant change. cf2 22:08 Follow up: Response: No significant change. cf2 Order Results: Lab Order: Basic Metabolic Profile; SPEC'M 08/23/16 17:00 Test: GLUCOSE, FASTING; Value: 99; Range: 83-110; Units: MG/DL; Status: F Test: BLOOD UREA NITROGEN; Value: 11; Range: 7-18; Units: MG/DL; Status: F Test: CREATININE FOR GFR; Value: 1.17; Range: 0.55-1.02; Abnormal: Above high normal; Units: MG/DL; Status: F Test: GLOMERULAR FILTRATION RATE; Value: 48.7; Range: >39; Status: F Test: SODIUM LEVEL; Value: 139; Range: 136-145; Units: MEQ/L; Status: F Test: POTASSIUM SERUM; Value: 3.9; Range: 3.5-5.1; Units: MEQ/L; Status: F Test: CHLORIDE LEVEL; Value: 106; Range: 98-107; Units: MEQ/L; Status: F Test: CARBON DIOXIDE LEVEL; Value: 25; Range: 21-32; Units: MEQ/L; Status: F Test: ANION GAP; Value: 8; Range: 8-16; Units: MEQ/L; Status: F Test: CALCIUM LEVEL; Value: 9.0; Range: 8.8-10.2; Units: MG/DL; Status: F Test Note: ; Units are mL/min/1.73 m2 Chronic Kidney Disease Staging per NKF: Stage I & II GFR >=60 Normal to Mildly Decreased Stage III GFR 30-59 Moderately Decreased Stage IV GFR 15-29 Severely Decreased Stage V GFR <15 Very Little GFR Left ESRD GFR <15 on [employer] Lab Order: CBC with Diff; SPEC'M 08/23/16 17:00 Test: WHITE BLOOD COUNT; Value: 11.7; Range: 4.0-10.0; Abnormal: Above high normal; Units: K/mm3; Status: F Test: RED BLOOD COUNT; Value: 4.46; Range: 4.00-5.40; Units: M/mm3; Status: F Test: HEMOGLOBIN; Value: 12.6; Range: 12.0-16.0; Units: g/dl; Status: F Test: HEMATOCRIT; Value: 39.5; Range: 36.0-47.0; Units: %; Status: F Test: MEAN CORPUSCULAR VOLUME; Value: 88.5; Range: 80.0-96.0; Units: fl; Status: F Test: MEAN CORPUSCULAR HEMOGLOBIN; Value: 28.3; Range: 27.0-33.0; Units: pg; Status: F Test: MEAN CORPUSCULAR HGB CONC; Value: 32.0; Range: 32.0-36.5; Units: g/dl; Status: F Test: RED CELL DISTRIBUTION WIDTH; Value: 14.9; Range: 11.5-14.5; Abnormal: Above high normal; Units: %; Status: F Test: PLATELET COUNT, AUTOMATED; Value: 605; Range: 150-450; Abnormal: Above high normal; Units: k/mm3; Status: F Test: NEUTROPHILS %; Value: 68.2; Range: 36.0-66.0; Abnormal: Above high normal; Units: %; Status: F Test: LYMPH %; Value: 20.0; Range: 24.0-44.0; Abnormal: Below low normal; Units: %; Status: F Test: MONO %; Value: 5.5; Range: 0.0-5.0; Abnormal: Above high normal; Units: %; Status: F Test: EOS %; Value: 3.5; Range: 0.0-3.0; Abnormal: Above high normal; Units: %; Status: F Test: BASO %; Value: 0.4; Range: 0.0-1.0; Units: %; Status: F Test: LARGE UNSTAINED CELL %; Value: 2.3; Range: 0.0-4.0; Units: %; Status: F Test: NEUTROPHILS #; Value: 8.0; Range: 1.8-7.7; Abnormal: Above high normal; Units: K/mm3; Status: F Test: LYMPH #; Value: 2.3; Range: 1.5-4.5; Units: K/mm3; Status: F Test: MONO #; Value: 0.7; Range: 0.0-0.8; Units: K/mm3; Status: F Test: EOS #; Value: 0.4; Range: 0.0-0.50; Units: K/mm3; Status: F Test: BASO #; Value: 0.0; Range: 0.0-0.2; Units: K/mm3; Status: F Test: LARGE UNSTAINED CELL #; Value: 0.3; Range: 0.0-0.4; Units: K/mm3; Status: F Lab Order: Partial Thromboplastin Time; SPEC'M 08/23/16 17:00 Test: PARTIAL THROMBOPLASTIN TIME; Value: 27.9; Range: 26.6-37.1; Units: SECONDS; Status: F Lab Order: Prothrombin Time Profile\\E\\INR; SPEC'M 08/23/16 17:00 Test: PROTHROMBIN TIME; Value: 12.8; Range: 12.3-14.5; Units: SECONDS; Status: F Test: INR; Value: 0.95; Status: F Test Note: ; THERAPUTIC HUMAN INR VALUES INDICATIONS NORMAL RANGES PROPHYLAXIS/TREATMENT OF: VENOUS THROMBOSIS 2.0-3.0 PULMONARY EMBOLISM 2.0-3.0 PREVENTION OF SYSTEMIC EMBOLISM FROM: TISSUE HEART VALVES 2.0-3.0 ACUTE MYOCARDIAL INFARCTION 2.0-3.0 VALVULAR HEART DISEASE 2.0-3.0 ATRIAL FIBRILLATION 2.0-3.0 MECHANICAL VALVES(HIGH RISK) 2.5-3.5 RECURRENT MYOCARDIAL INFARCTION 2.5-3.5 Lab Order: Type & Screen; [facility] 08/23/16 17:00 Test: BLOOD TYPE; Value: A POS; Status: F Test: AB SCREEN (INDIRECT ROBERTH)VIS; Value: NEGATIVE; Status: F Lab Order: Urinalysis; [facility] 08/23/16 21:36 Test: APPEARANCE, URINE; Value: CLOUDY; Range: CLEAR; Abnormal: Above high normal; Status: F Test: COLOR, URINE; Value: ELENA; Range: YELLOW; Status: F Test: PH,URINE; Value: 5.0; Range: 5.0-9.0; Units: UNITS; Status: F Test: SPECIFIC GRAVITY URINE AUTO; Value: 1.025; Range: 1.002-1.035; Status: F Test: PROTEIN, URINE AUTO; Value: 1+; Range: NEGATIVE; Abnormal: Above high normal; Units: mg/dL; Status: F Test: GLUCOSE, URINE (UA) AUTO; Value: NEGATIVE; Range: NEGATIVE; Units: mg/dL; Status: F Test: KETONE, URINE AUTO; Value: TRACE; Range: NEGATIVE; Abnormal: Above high normal; Units: mg/dL; Status: F Test: UROBILINOGEN, URINE AUTO; Value: 0.2; Range: 0.0-2.0; Units: mg/dL; Status: F Test: BILIRUBIN, URINE AUTO; Value: NEGATIVE; Range: NEGATIVE; Status: F Test: NITRITE, URINE AUTO; Value: NEGATIVE; Range: NEGATIVE; Status: F Test: LEUKOCYTE ESTERASE, URINE AUTO; Value: 3+; Range: NEGATIVE; Abnormal: Above high normal; Status: F Test: BLOOD, URINE BLOOD; Value: NEGATIVE; Range: NEGATIVE; Status: F Test: WBC, URINE AUTO; Value: 52; Range: 0-3; Abnormal: Above high normal; Units: /HPF; Status: F Test: RBC, URINE AUTO; Value: 17; Range: 0-3; Abnormal: Above high normal; Units: /HPF; Status: F Test: BACTERIA, URINE AUTO; Value: 1+; Range: NEGATIVE; Abnormal: Above high normal; Status: F Test: SQUAMOUS EPITHELIAL CELL UR AU; Value: 9; Range: 0-6; Units: /HPF; Status: F Test: MUCUS, URINE; Value: SMALL; Range: NEGATIVE; Status: F Test: HYALINE CAST, URINE AUTO; Value: 16; Range: 0-1; Units: /LPF; Status: F Lab Order: BASIC METABOLIC PROFILE; SPEC'M 08/23/16 20:06 Test: GLUCOSE, FASTING; Value: 114; Range: 83-110; Abnormal: Above high normal; Units: MG/DL; Status: F Test: BLOOD UREA NITROGEN; Value: 11; Range: 7-18; Units: MG/DL; Status: F Test: CREATININE FOR GFR; Value: 1.05; Range: 0.55-1.02; Abnormal: Above high normal; Units: MG/DL; Status: F Test: GLOMERULAR FILTRATION RATE; Value: 55.2; Range: >39; Status: F Test: SODIUM LEVEL; Value: 141; Range: 136-145; Units: MEQ/L; Status: F Test: POTASSIUM SERUM; Value: 3.8; Range: 3.5-5.1; Units: MEQ/L; Status: F Test: CHLORIDE LEVEL; Value: 109; Range: 98-107; Abnormal: Above high normal; Units: MEQ/L; Status: F Test: CARBON DIOXIDE LEVEL; Value: 25; Range: 21-32; Units: MEQ/L; Status: F Test: ANION GAP; Value: 7; Range: 8-16; Abnormal: Below low normal; Units: MEQ/L; Status: F Test: CALCIUM LEVEL; Value: 8.8; Range: 8.8-10.2; Units: MG/DL; Status: F Test Note: ; Units are mL/min/1.73 m2 Chronic Kidney Disease Staging per NKF: Stage I & II GFR >=60 Normal to Mildly Decreased Stage III GFR 30-59 Moderately Decreased Stage IV GFR 15-29 Severely Decreased Stage V GFR <15 Very Little GFR Left ESRD GFR <15 on [employer] Lab Order: CBC WITH DIFFERENTIAL; SPEC'M 08/23/16 20:06 Test: WHITE BLOOD COUNT; Value: 13.1; Range: 4.0-10.0; Abnormal: Above high normal; Units: K/mm3; Status: F Test: RED BLOOD COUNT; Value: 4.11; Range: 4.00-5.40; Units: M/mm3; Status: F Test: HEMOGLOBIN; Value: 11.5; Range: 12.0-16.0; Abnormal: Below low normal; Units: g/dl; Status: F Test: HEMATOCRIT; Value: 36.3; Range: 36.0-47.0; Units: %; Status: F Test: MEAN CORPUSCULAR VOLUME; Value: 88.3; Range: 80.0-96.0; Units: fl; Status: F Test: MEAN CORPUSCULAR HEMOGLOBIN; Value: 28.1; Range: 27.0-33.0; Units: pg; Status: F Test: MEAN CORPUSCULAR HGB CONC; Value: 31.8; Range: 32.0-36.5; Abnormal: Below low normal; Units: g/dl; Status: F Test: RED CELL DISTRIBUTION WIDTH; Value: 15.1; Range: 11.5-14.5; Abnormal: Above high normal; Units: %; Status: F Test: PLATELET COUNT, AUTOMATED; Value: 508; Range: 150-450; Abnormal: Above high normal; Units: k/mm3; Status: F Test: NEUTROPHILS %; Value: 66.4; Range: 36.0-66.0; Abnormal: Above high normal; Units: %; Status: F Test: LYMPH %; Value: 23.5; Range: 24.0-44.0; Abnormal: Below low normal; Units: %; Status: F Test: MONO %; Value: 4.4; Range: 0.0-5.0; Units: %; Status: F Test: EOS %; Value: 3.1; Range: 0.0-3.0; Abnormal: Above high normal; Units: %; Status: F Test: BASO %; Value: 0.4; Range: 0.0-1.0; Units: %; Status: F Test: LARGE UNSTAINED CELL %; Value: 2.3; Range: 0.0-4.0; Units: %; Status: F Test: NEUTROPHILS #; Value: 8.7; Range: 1.8-7.7; Abnormal: Above high normal; Units: K/mm3; Status: F Test: LYMPH #; Value: 3.1; Range: 1.5-4.5; Units: K/mm3; Status: F Test: MONO #; Value: 0.6; Range: 0.0-0.8; Units: K/mm3; Status: F Test: EOS #; Value: 0.4; Range: 0.0-0.50; Units: K/mm3; Status: F Test: BASO #; Value: 0.0; Range: 0.0-0.2; Units: K/mm3; Status: F Test: LARGE UNSTAINED CELL #; Value: 0.3; Range: 0.0-0.4; Units: K/mm3; Status: F Radiology Order: CT Head Without Contrast Test: CT Head Without Contrast REASON FOR EXAMINATION: weakness; Clinical: Weakness.; ; Comparison: 05/16/2012 .; ; Findings:; Age-related atrophy and microvascular ischemic changes are appreciated. The; ventricles and sulci are symmetric. Ayala-white differentiation is maintained.; There is no evidence for acute intracranial hemorrhage, mass/mass effect,; pathology or infarction. No extra-axial fluid collection. Calvarium is intact.; Paranasal sinuses and mastoid air cells are clear.; ; Impression:; Age related atrophy and microvascular ischemic changes including old left; cerebellar infarction.; No acute intracranial hemorrhage, infarction, or mass/mass effect.; ; ; Signed by; Raoul Henriquez MD 08/23/2016 05:11 P; Radiology Order: Chest, 1 View Test: Chest, 1 View REASON FOR EXAMINATION: weakness; Clinical: Weakness.; ; Comparison: 03/18/2015.; ; Findings: Mediastinum and cardiac silhouette are normal. Lung warner; demonstrate chronic interstitial changes without obvious consolidation, effusion,; or pneumothorax. Skeletal structures stable.; ; Impression:; Chronic stable changes. No acute cardiopulmonary process.; ; ; Signed by; Raoul Henriquez MD 08/23/2016 04:58 P; Radiology Order: -MRA-Brain without contrast Test: -MRA-Brain without contrast REASON FOR EXAMINATION: CVA >4.5hrs; ; MRA of the brain; Clinical history: stroke.; Technique: [id number] MRA images of the brain were obtained without administration of contrast. 3; -D MIP images were also obtained.; Findings: The vascular structures extending from the distal carotid and vertebrobasilar arterial syst; ems, through the [place], demonstrate normal caliber and contour. There is no evidence of an; eurysm, stenosis, or thrombosis.; Impression: Unremarkable MRA examination of the brain.; ; Radiology Order: -MRI-Brain without Test: -MRI-Brain without REASON FOR EXAMINATION: CVA >4.5hrs; ; MRI of the brain; Clinical history: stroke.; Technique: Multiecho multiplanar MRI images of the brain were obtained without administration of cont; rast. Diffusion weighted images with ADC mapping was also obtained.; Findings:; The ventricles and sulci are symmetric but prominent in size bilaterally. There is chronic encephalom; alacia in the left cerebellar hemisphere. The brain parenchyma demonstrates restricted diffusion in t; he left basal ganglia consistent with an acute infarct. Periventricular and subcortical white matter; T2 hyperintensity is scattered bilaterally. There is no midline shift, mass effect, or extra-axial fl; uid collection. The midline intracranial structures do not demonstrate any gross abnormalities. The c; ervical cranial junction is intact. The orbits are unremarkable. The visualized paranasal sinuses and; mastoid air cells are clear. The osseous structures and superficial soft tissues are unremarkable. T; he vascular structures demonstrate appropriate flow voids.; Impression:; 1. Acute infarct in the left basal ganglia. No surrounding mass effect or edema.; 2. Moderate cerebral atrophy with chronic small vessel ischemic disease. Encephalomalacia the left ce; rebellar hemisphere.; Findings were discussed with the hospitalist at 9:15 PM on 08/23/2016.; ; Outcome: 18:15 CT Study completed. ck1 19:05 Discharge Assessment: Patient awake, alert and oriented x 3. No cognitive and/or cf2 functional deficits noted. Patient verbalized understanding of disposition instructions. Patient awake and alert. Oriented to person, place and time. patient administered narcotics - no. The following High Risk Discharge criteria are identified: None. Admitted to PCU. Condition: stable. Property :Personal belongings accompany Pt. 19:34 Decision to Hospitalize by Provider. br1 22:32 Patient left the ED. af2 Signatures: Dispatcher [employer] EDMS Carmita Doe, RN RN srm Fritz, Elyssa, RN RN mcp Den, Licha, Reg Reg gb Ankita-Amelia,Za,RN RN ck1 Naveed Lion MD MD br1 Gem Dumas, RN RN mk4 Antolin, Gissell, [employer] SUPERVISOR [employer] SUPERVISOR rs6 Devin,Elena,RN RN af2 Sarah,Eufemia,RN RN cf2 Justine Razo2 Kaylene Xie2 Chart Complete MTDD
--- NOTE | 2016-08-25 23:32 | EDDOCDS ---
Physician Documentation [facility] Name: Carrie Calero Age: 71 yrs Sex: Female : 1945 Arrival Date: 08/23/2016 Time: 16:09 Bed 5 Private MD: Kaylene Rain Disposition: 08/23/16 19:34 Hospitalization ordered by Amaris Law for Inpatient Admission. Preliminary diagnosis is Weakness - right sided, rule out CVA. - Bed requested for 4 [facility] (Formerly 3 [facility]). - Status is Inpatient Admission. af2 - Condition is Stable. - Problem is new. - Symptoms are unchanged. Historical: - Allergies: no known allergies; - Home Meds: 1. gabapentin 300 mg Oral tab three times a day 2. tizanidine 4 mg oral tab 1 tab every 8 hours PRN 3. alprazolam 0.5 mg Oral tab daily PRN 4. atenolol 25 mg Oral tab once daily (Last dose: 08/22/2016) 5. amlodipine 5 mg Oral tab 1 tab once daily (Last dose: 08/22/2016) 6. pravastatin 40 mg oral tab 1 tab once daily (Last dose: 08/22/2016) 7. Zantac 150 mg Oral cap once daily 8. omeprazole 40 mg Oral cpDR 1 cap once daily PRN 9. VICODIN 5/325MG as needed 10. Motrin 800 mg Oral tab 1 tab 3 times per day PRN 11. duloxetine 60 mg Oral cpDR 1 cap once daily (Last dose: 08/22/2016) - PMHx: Hypertension; GERD; Depression; BACK PAIN; STROKE 2004; - PSHx: Cardiac stents; Bowel resection; Hysterectomy; Adenoidectomy; Tonsillectomy; - Social history: Smoking status: Patient uses tobacco products, current every day smoker. No barriers to communication noted, The patient speaks fluent Korean, Speaks appropriately for age. - Family history: Not pertinent. - : The pt / caregiver states he / she is not on anticoagulants. Home medication list is obtained from the patient. - Exposure Risk Screening:: None identified. Vital Signs: 08/23 16:14 BP 191 / 100; Pulse 87; Resp 16; Temp 97.6(O); Pulse Ox 100% ; Weight 72.57 kg / 159.99 lr2 lbs (R); Height 5 ft. 4 in. (162.56 cm); 16:14 BP 182 / 102 (man/); lr2 16:47 BP 119 / 82 (auto/); ck1 16:48 Pulse 78 MON; Pulse Ox 99% ; ck1 18:05 BP 148 / 100 (auto/); ck1 18:06 Pulse 74 MON; Pulse Ox 96% ; ck1 18:36 BP 146 / 72 (auto/); ck1 18:37 Pulse 86 MON; Pulse Ox 98% ; ck1 19:05 BP 148 / 78 (auto/); cf2 19:06 Pulse 72 MON; Pulse Ox 97% ; cf2 19:35 BP 149 / 100 (auto/); cf2 19:36 Pulse 74 MON; Pulse Ox 97% ; cf2 21:11 BP 160 / 88 (auto/); cf2 21:12 Pulse 78 MON; cf2 21:14 Pulse 80 MON; Pulse Ox 98% ; cf2 21:20 Pulse 76 MON; Pulse Ox 96% ; cf2 21:26 Pulse 82 MON; Pulse Ox 95% ; cf2 21:32 Pulse 76 MON; Pulse Ox 95% ; cf2 21:36 Pulse 72 MON; Pulse Ox 97% ; cf2 21:43 Pulse 72 MON; Pulse Ox 96% ; cf2 21:50 Pulse 72 MON; Pulse Ox 96% ; cf2 16:14 Body Mass Index 27.46 (72.57 kg, 162.56 cm) lr2 MDM: 16:38 [place] Sewer/Pulse Ox/q 15 min VS ordered. sd1 16:38 Accucheck ordered. sd1 16:38 IV Saline Lock ordered. sd1 16:38 Rhythm Strip to chart ordered. sd1 16:38 Basic Metabolic Profile Ordered. EDMS 16:38 CBC with Diff Ordered. EDMS 16:38 Partial Thromboplastin Time Ordered. EDMS 16:38 Prothrombin Time Profile\E\INR Ordered. EDMS 16:39 Chest, 1 View Ordered. EDMS 16:39 Type & Screen Ordered. EDMS 16:39 CT Head Without Contrast Ordered. EDMS 16:39 ECG WITH READING ER PHYS+CARDIAG ordered. EDMS 19:02 Basic Metabolic Profile Reviewed. br1 19:02 CBC with Diff Reviewed. br1 19:02 Partial Thromboplastin Time Reviewed. br1 19:02 Prothrombin Time Profile\E\INR Reviewed. br1 19:02 Type & Screen Reviewed. br1 19:02 CT Head Without Contrast Reviewed. br1 19:02 Chest, 1 View Reviewed. br1 19:14 Aspirin 324 mg PO once ordered. br1 19:15 Urinalysis Ordered. EDMS 19:15 Urine Culture Ordered. EDMS 19:15 BED REQUEST+ADM ordered. EDMS 19:22 MRI Screening Tool - Place on chart, inform RN ordered. br1 19:23 -MRA-Brain without contrast Ordered. EDMS 19:23 -MRI-Brain without Ordered. EDMS 19:38 NO ADDED SALT DIET ordered. EDMS 19:39 BASIC METABOLIC PROFILE Ordered. EDMS 19:39 CBC WITH DIFFERENTIAL Ordered. EDMS 19:39 PHYSICAL THERAPY EVAL & TREAT ordered. EDMS 19:40 Admission / Observation Status ordered. EDMS 20:32 MRI Screening Tool - Place on chart, inform RN complete. kb5 20:50 Financial registration complete. zo 21:50 Plavix - Clopidogrel 75 mg PO once ordered. cf2 08/24 10:38 T-Sheet-- Draft Copy was scanned into [employer] and attached to record. gb Administered Medications: 08/23 19:34 Drug: Aspirin 324 mg [aspirin 81 mg chewable tablet (4 tabs)] Route: PO; cf2 21:30 Drug: Plavix - Clopidogrel 75 mg [clopidogrel 75 mg tablet (1 tabs)] Route: PO; cf2 21:50 Follow up: Response: No significant change. cf2 22:08 Follow up: Response: No significant change. cf2 Signatures: Dis[facility] Nany Coon MD MD sd1 Carmita Doe, RN RN [facility], Ale RN JOSE D daq Licha Crenshaw, Reg Reg gb Derian, Zoeann zo Lott, Kamari, CREDIT AUTHORIZER CREDIT AUTHORIZER kb5 Naveed Lion MD MD br1 Gem Dumas RN RN mk4 Elena Beltran,RN RN af2 Eufemia Smith,RN RN cf2 The chart was reviewed and I authenticate all verbal orders and agree with the evaluation and treatment provided.Attachments: 08/24 10:38 T-Sheet-- Draft Copy gb Chart Complete MTDD
[2016-08-26] VITALS: BP 142/82
[2016-08-26 04:00] VITALS: BP 156/96
[2016-08-26 06:42] LABS: MEAN CORPUSCULAR HEMOGLOBIN 28.9 pg (27.0-33.0); MEAN CORPUSCULAR HGB CONC 32.4 g/dl (32.0-36.5); MEAN CORPUSCULAR VOLUME 89.3 fl (80.0-96.0); WHITE BLOOD COUNT 10.2 K/mm3 (4.0-10.0)
[2016-08-26 06:58] LABS: ANION GAP 9 MEQ/L (8-16); BLOOD UREA NITROGEN 12 MG/DL (7-18); CALCIUM LEVEL 8.8 MG/DL (8.8-10.2); CARBON DIOXIDE LEVEL 24 MEQ/L (21-32); CHLORIDE LEVEL 110 MEQ/L (98-107); CREATININE FOR GFR 0.92 MG/DL (0.55-1.02); GLOMERULAR FILTRATION RATE > 60.0 (>39); GLUCOSE, FASTING 111 MG/DL (83-110); POTASSIUM SERUM 4.1 MEQ/L (3.5-5.1); SODIUM LEVEL 143 MEQ/L (136-145)
[2016-08-26 08:00] VITALS: BP 131/87
[2016-08-26] MEDS: ASPIRIN 81 MG CHEW TABLET PO SCH (08:42)
[2016-08-26] MEDS: CLOPIDOGREL 75 MG TAB PO SCH (08:42)
[2016-08-26] MEDS: DULoxetine 30 MG CAP (CYMBALTA) PO SCH (08:42)
[2016-08-26] MEDS: PRAVASTATIN 20 MG TAB PO SCH (08:42)
[2016-08-26] MEDS: GABAPENTIN 300 MG CAP PO SCH (08:42)
[2016-08-26 08:43] VITALS: BP 131/87
[2016-08-26] MEDS: ATENOLOL 25 MG TAB PO SCH (08:43)
[2016-08-26] MEDS: amLODIPine 5 MG TAB PO SCH (08:43)
[2016-08-26] MEDS: NICOTINE 7 MG/24 HR TRANSDERMAL TD SCH (08:43)
[2016-08-26 12:00] VITALS: BP 145/65
[2016-08-26] MEDS ORDERED: CLOP75TA2 PO (15:02)
[2016-08-26] MEDS ORDERED: NICO7PA TD (15:02)
[2016-08-26] MEDS ORDERED: ASPI81TA PO (15:02)
--- NOTE | 2016-08-26 15:51 | ECHO ---
DATE OF SERVICE: 08/24/2016 REFERRING PROVIDER: Dr. Amaris Law PATIENT LOCATION: Room 4131 REASON FOR ECHOCARDIOGRAM: CVA. 2D MEASUREMENTS: IVS: 1.1 cm LV: 3.8 cm LVPW: 1.0 cm LA: 3.0 cm Aorta: 2.9 cm IVC: 1.1 cm DOPPLER MEASUREMENTS: Peak velocity across the aortic valve: 1.5 m/s Peak velocity across the LVOT: 0.2 m/s Mitral E: 0.80 Mitral A: 0.95 with a ratio of 1.8 Maximum tricuspid valve velocity: 2.3 m/s 2D COMMENTS: 1. Normal left ventricular size, wall thickness and normal global left ventricular systolic function. The estimated global left ventricular systolic ejection fraction is 60-65%. 2. Normal left atrium. Normal right atrium and the left ventricle. 3. The atrial septum appeared to be normal without evidence of defect or shunt. 4. Normal aortic root. 5. No pericardial effusions seen. 6. Minimal calcified aortic valve with normal leaflet excursion. Mildly calcified mitral annulus with normal anterior mitral valve leaflet motion. Normal tricuspid valve. The pulmonic valve and proximal pulmonary artery branches were not well visualized. 7. The inferior vena cava was normal in size, central venous pressure is most likely normal. Doppler, it detects trace mitral regurgitation, trace tricuspid regurgitation. The calculated pulmonary artery systolic pressure was about 10 mmHg. Abnormal relaxation pattern was noted across the mitral valve leaflets as well as the mitral valve annulus consistent with a delayed relaxation. IMPRESSION: 1. Normal global left ventricular systolic function. There are features of left ventricular diastolic dysfunction, grade 1. 2. Aortic valve sclerosis without stenosis or aortic regurgitation. 3. Mitral annulus calcification which shows mitral regurgitation. 4. Trace tricuspid regurgitation with probably mild pulmonary hypertension.
--- NOTE | 2016-08-27 13:34 | DSES ---
DATE OF ADMISSION: 08/23/2016 DATE OF DISCHARGE: 08/26/2016 DISCHARGE DIAGNOSIS: Acute cerebrovascular accident. SECONDARY DIAGNOSIS: Anxiety. Tobacco use. Chronic back pain. Gastroesophageal reflux disease. Coronary artery disease. Hypertension. HOSPITAL COURSE: The patient is a 71-year-old female who initially presented with several days of right upper and lower extremity weakness as well as some dysarthria. She was admitted for potential cerebrovascular accident. She did have a CT scan of the head which revealed age-related microvascular changes. This was followed up with an MRI of the brain, which revealed acute infarct in left basal ganglia with also moderate cerebral atrophy and encephalomalacia in the left cerebral hemisphere. The patient had an MRA of the brain, which was unremarkable and an MRI of the carotids, which revealed loss of the normal hyperintense signal of the proximal two-thirds of the vertebral artery secondary to severe stenosis or occlusion. The patient also did have an echocardiogram which was read by Dr. Herring that revealed normal global LV, SV systolic function, grade 1 diastolic dysfunction, trace tricuspid regurgitation. The patient's symptoms did gradually improve with time. She was seen by physical therapy (PT), occupational therapy (OT) and speech therapy who had all cleared her. She was seen by Dr. Tan of Neurology in consultation. She had a thyroid-stimulating hormone (TSH) which was within normal limits and a hemoglobin A1c slightly elevated at 6.4. SUBJECTIVE: Today, the patient reports she is feeling well, she wants to go home and has no complaints. OBJECTIVE: VITAL SIGNS: Temperature 97.3, pulse 72, respiratory rate 18, blood pressure 131/87, oxygen saturation 98% on room air. GENERAL; She is a pleasant female, sleeping peacefully when I entered the room but easily arousable to verbal stimuli. She is in no acute distress. HEENT: Face is symmetric. Tongue is midline. Uvula is midline. Cranial nerves II-XII appear to be grossly intact. CARDIOVASCULAR EXAM: S1, S2 regular. RESPIRATORY EXAM: Clear. ABDOMINAL EXAM: Benign. EXTREMITIES: No clubbing, cyanosis, and edema, 4/5 strength in the right upper and lower extremity; otherwise 5/5 in the left upper and lower. LABORATORY STUDIES: WBC 10.2, hemoglobin 11.4, hematocrit 35.3, platelet count 464. Chemistry panel: Sodium 143, potassium 4.1, chloride 110, bicarbonate 24, BUN 12, creatinine 0.9. Microbiology. Urine culture was positive for Group B Strep. IMAGING: As outlined above. ASSESSMENT AND PLAN: This is a 71-year-old female status post small left basal ganglia internal capsule acute stroke. Problems: 1. Acute cerebrovascular accident. Dr. Tan's help is greatly appreciated. The patient came into the hospital on aspirin 325 mg daily. This has been decreased to aspirin 81 mg, and she has been started on Plavix 75 mg. PT, OT and speech therapy have all seen her. She has been cleared for discharge. She is to followup with neurology 2 weeks after discharge. Her other workup did not reveal any clear etiology for her stroke other than potentially tobacco use and possible vertebral artery stenosis, which she should followup with neurology in the outpatient setting. Her blood pressure is controlled with an antihypertensive and she is on a statin. 2. Anxiety. She is on Xanax, as above. 3. Tobacco use. Cessation and counseling have been offered. She has been provided a nicotine patch. 4. Chronic back pain. She is on Neurontin and tizanidine. 5. Gastroesophageal reflux disease. She is on omeprazole. 6. Coronary artery disease. She is on aspirin, statin, as well as a beta amrit. 7. Hypertension. Controlled with atenolol and Norvasc. 8. Asymptomatic bacturia: No treatment needed without symptoms DISPOSITION: The patient was cleared by physical therapy. She is medically stable for discharge. She is at her baseline functional status. She is being discharged home to the care of her significant other. She is to followup with her primary care provider (PCP) within 7 days, followup with Neurology within 2 weeks. Her activity is as prior to admission. Her diet is a 2-gram sodium. She is to avoid tobacco and return to the emergency room if her symptoms worsen. MEDICATIONS AT THE TIME OF DISCHARGE: - aspirin 81 mg daily - Plavix 75 mg daily - Nicoderm patch one patch daily 7 mg per 24 hours - hydrocodone/acetaminophen 5-325 mg one tablet every 6 hours as needed for pain , maximum daily dose four - alprazolam 0.5 mg daily as needed for anxiety - amlodipine 5 mg daily - atenolol 25 mg daily - Cymbalta 60 mg daily - gabapentin 300 mg three times a day - ibuprofen 800 mg three times a day - omeprazole 40 mg as needed for heartburn - pravastatin 40 mg daily - ranitidine one tablet by mouth daily - tizanidine 4 mg three times a day as needed for spasms. Greater than 30 minutes spent organizing disposition. MTDD
== END 2016-08-26 15:47 | disposition home or self-care (01) | DRG 66 ==
LOC: M ED 16:09 → M ED INP 19:35 → M ALC 22:25
PROVIDERS: ADMIT General Practice; ATTEND Internal Medicine
DX: I63.9 Cerebral infarction, unspecified (principal); M62.81 Muscle weakness (generalized); I10 Essential (primary) hypertension; K21.9 Gastro-esophageal reflux disease without esophagitis; F32.9 Major depressive disorder, single episode, unspecified; I25.10 Atherosclerotic heart disease of native coronary artery without angina pectoris; I25.2 Old myocardial infarction; Z95.5 Presence of coronary angioplasty implant and graft; F17.210 Nicotine dependence, cigarettes, uncomplicated; M54.9 Dorsalgia, unspecified; M25.511 Pain in right shoulder; E66.9 Obesity, unspecified; F41.9 Anxiety disorder, unspecified; I67.2 Cerebral atherosclerosis; Z79.1 Long term (current) use of non-steroidal anti-inflammatories (NSAID); Z90.710 Acquired absence of both cervix and uterus; Z90.49 Acquired absence of other specified parts of digestive tract; Z79.82 Long term (current) use of aspirin; Z86.73 Personal history of transient ischemic attack (TIA), and cerebral infarction without residual deficits; Z79.899 Other long term (current) drug therapy; Z68.27 Body mass index [BMI] 27.0-27.9, adult

== ENCOUNTER → 2016-09-20 | Outpatient (REF) | payer MEDICARE ==
[~2016-09-20] MED LIST changes: +ALPR0.5T3 PO; +AMLO5TAB2 PO; +ASPI325T PO; +ASPI81TA PO; +ATEN25TA PO; +CLOP75TA2 PO; +CYMB60CA3 PO; +GABA300C3 PO; +HYDR-3713 PO; +IBUP800T23 PO; +NICO7PA TD; +OMEP40CA2 PO; +PRAV40TA2 PO; +RANI150T PO; +TIZA4CAP3 PO
== END ==
LOC: M LAB REF 16:25
PROVIDERS: ATTEND Internal Medicine
DX: B37.3 Candidiasis of vulva and vagina (principal)

== ENCOUNTER 2016-10-24 13:00 | Outpatient (RCR) | payer MEDICARE ==
[~2016-10-24 13:00] MED LIST changes: +GABA-282 PO; -GABA300C3 PO
== END 2016-10-30 | disposition home or self-care (01) ==
LOC: M PT 13:00
PROVIDERS: ATTEND Psychiatry & Neurology Neurology
DX: Z51.89 Encounter for other specified aftercare (principal); R26.89 Other abnormalities of gait and mobility
CPT/HCPCS: 97110; 97162; G8978; G8979

== ENCOUNTER 2016-11-15 12:59 | Outpatient (RCR) | payer MEDICARE | END 2016-11-30 | LOC: M OT 12:59 | PROVIDERS: ATTEND Psychiatry & Neurology Neurology | DX: Z51.89 Encounter for other specified aftercare (principal); I69.351 Hemiplegia and hemiparesis following cerebral infarction affecting right dominant side | CPT/HCPCS: 97110; 97166; G8979; G8980; G8984; G8985; G8986 ==

== ENCOUNTER 2016-12-15 13:11 | Emergency (ER) | payer MEDICARE ==
[~2016-12-15] VITALS: Ht 162.6 cm; Wt 72.1 kg
[2016-12-15] MEDS ORDERED: NICOTINE 21MG/24HR 1 EA TRANSDERMAL TD ONE (15:00)
[2016-12-15 15:02] LABS: BASO # 0.1 K/mm3 (0.0-0.2); BASO % 0.4 % (0.0-1.0); EOS # 0.5 K/mm3 (0.0-0.50); EOS % 3.3 % (0.0-3.0); LARGE UNSTAINED CELL # 0.3 K/mm3 (0.0-0.4); LARGE UNSTAINED CELL % 1.7 % (0.0-4.0); LYMPH # 3.1 K/mm3 (1.5-4.5); LYMPH % 19.2 % (24.0-44.0); MEAN CORPUSCULAR HEMOGLOBIN 29.5 pg (27.0-33.0); MEAN CORPUSCULAR HGB CONC 32.9 g/dl (32.0-36.5); MEAN CORPUSCULAR VOLUME 89.8 fl (80.0-96.0); MONO # 0.8 K/mm3 (0.0-0.8); MONO % 5.6 % (0.0-5.0); NEUTROPHILS # 10.4 K/mm3 (1.8-7.7); NEUTROPHILS % 69.7 % (36.0-66.0); PLATELET COUNT, AUTOMATED 422 k/mm3 (150-450); RED CELL DISTRIBUTION WIDTH 16.3 % (11.5-14.5); WHITE BLOOD COUNT 14.9 K/mm3 (4.0-10.0)
[2016-12-15 15:12] LABS: ABG BASE EXCESS -6.8 (-2.0-2.0); ABG HCO3 16.9 MEQ/L (22.0-26.0); ABG PARTIAL PRESSURE CO2 28.3 mmHg (35.0-45.0); ABG PARTIAL PRESSURE O2 77.2 mmHg (75.0-100.0); ABG STANDARD HCO3 18.9 MEQ/L (22.0-26.0); ABG TOTAL CO2 17.8 MEQ/L (23.0-31.0); ABG pH (ARTERIAL) 7.394 UNITS (7.350-7.450)
[2016-12-15 15:19] LABS: CALCIUM LEVEL 8.9 MG/DL (8.8-10.2); CREATININE FOR GFR 1.04 MG/DL (0.55-1.02); GLOMERULAR FILTRATION RATE 55.8 (>39); POTASSIUM SERUM 3.9 MEQ/L (3.5-5.1)
--- NOTE | 2016-12-15 16:19 | REP ---
CHEST, PORTABLE SINGLE VIEW: COMPARISON: 08/23/2016 There is no evidence of acute infiltrate. No pleural effusion is seen. The heart is normal in size. The mediastinal silhouette is unremarkable. The visualized osseous structures are intact. IMPRESSION: No acute pulmonary disease. Signed by Christophe Ayala MD 12/15/2016 04:31 P
[2016-12-15 16:47] VITALS: BP 132/58
== END 2016-12-15 17:09 | disposition home or self-care (01) ==
LOC: M ED 13:54
DX: I69.398 Other sequelae of cerebral infarction (principal); I10 Essential (primary) hypertension; J44.9 Chronic obstructive pulmonary disease, unspecified; F32.9 Major depressive disorder, single episode, unspecified; K21.9 Gastro-esophageal reflux disease without esophagitis; F17.210 Nicotine dependence, cigarettes, uncomplicated; Z79.899 Other long term (current) drug therapy; Z79.82 Long term (current) use of aspirin; Z79.02 Long term (current) use of antithrombotics/antiplatelets

== ENCOUNTER 2017-04-07 16:19 | Emergency (ER) | payer MEDICAID, MEDICARE ==
[~2017-04-07] VITALS: Ht 162.6 cm; Wt 71.8 kg
[~2017-04-07 16:19] MED LIST changes: +IBUP1TAB7 PO; -IBUP800T23 PO
[2017-04-07] MEDS ORDERED: NORCOTAB PO (18:30)
[2017-04-07] MEDS ORDERED: AMOX500C PO (18:30)
[2017-04-07 18:52] VITALS: BP 157/97
== END 2017-04-07 18:53 | disposition home or self-care (01) ==
LOC: M ED 16:19
DX: G89.18 Other acute postprocedural pain (principal); K05.00 Acute gingivitis, plaque induced; F17.210 Nicotine dependence, cigarettes, uncomplicated; Z79.82 Long term (current) use of aspirin; Z79.899 Other long term (current) drug therapy

== ENCOUNTER 2017-05-27 11:31 | Emergency (ER) | payer MEDICAID, MEDICARE ==
[~2017-05-27] VITALS: Ht 162.6 cm; Wt 72.4 kg
[~2017-05-27 11:31] MED LIST changes: +AMOX500C PO; +NORCOTAB PO
[2017-05-27 11:32] VITALS: BP 124/61
--- NOTE | 2017-05-27 12:36 | REP ---
Clinical: Cough . Comparison: 12/15/2016 . Technique: PA and lateral. Findings: The mediastinum and cardiac silhouette are normal. The lung warner demonstrate mild chronic changes without acute consolidation, effusion, or pneumothorax. The skeletal structures are intact and normal. Impression: 1. No acute cardiopulmonary process. Signed by Raoul Henriquez MD 05/27/2017 12:28 P
[2017-05-27] MEDS ORDERED: AZIT-12 PO (13:44)
[2017-05-27] MEDS ORDERED: ALBU17IN2 INH (13:48)
[2017-05-27] MEDS ORDERED: MUCI1TAB16 PO (13:49)
== END 2017-05-27 13:58 | disposition home or self-care (01) ==
LOC: M ED 11:31
DX: J40 Bronchitis, not specified as acute or chronic (principal); I25.10 Atherosclerotic heart disease of native coronary artery without angina pectoris; I10 Essential (primary) hypertension; E05.90 Thyrotoxicosis, unspecified without thyrotoxic crisis or storm; F17.210 Nicotine dependence, cigarettes, uncomplicated; Z79.82 Long term (current) use of aspirin; Z79.899 Other long term (current) drug therapy; Z95.5 Presence of coronary angioplasty implant and graft; Z86.73 Personal history of transient ischemic attack (TIA), and cerebral infarction without residual deficits

== ENCOUNTER 2017-12-30 19:28 | Emergency (ER) | payer MEDICARE ==
[2017-12-30] MEDS: CLOPIDOGREL 75 MG TAB PO (20:50)
[2017-12-30] MEDS: ASPIRIN 325 MG TAB PO (20:50)
[2017-12-30] MEDS: NITROGLYCERIN 2% OINT 1 GM *U/D* PKT TOP (20:50)
[2017-12-30] MEDS: MORPHINE 2 MG/ML 1ML SYRINGE (J2270) IV (20:51)
[2017-12-30 20:54] LABS: BASO # 0.1 10^3/uL (0.0-0.2); BASO % 0.7 % (0.0-1.0); EOS # 1.1 10^3/uL (0.0-0.50); EOS % 7.5 % (0.0-3.0); HEMATOCRIT 33.6 % (36.0-47.0); HEMOGLOBIN 10.6 g/dl (12.0-15.5); IMMATURE GRANULOCYTE % 0.4 % (0-3.0); LYMPH # 3.6 10^3/uL (1.5-4.5); LYMPH % 25.7 % (24.0-44.0); MEAN CORPUSCULAR HEMOGLOBIN 27.5 pg (27.0-33.0); MEAN CORPUSCULAR HGB CONC 31.5 g/dl (32.0-36.5); MONO # 0.9 10^3/uL (0.0-0.8); MONO % 6.6 % (0.0-5.0); NEUTROPHILS # 8.4 10^3/uL (1.8-7.7); NEUTROPHILS % 59.1 % (36.0-66.0); PLATELET COUNT, AUTOMATED 475 10^3/uL (150-450); RED BLOOD COUNT 3.86 10^6/uL (4.00-5.40); RED CELL DISTRIBUTION WIDTH 15.4 % (11.5-14.5); WHITE BLOOD COUNT 14.1 10^3/uL (4.0-10.0)
[2017-12-30 20:57] LABS: INR 1.03; PROTHROMBIN TIME 13.6 SECONDS (12.1-14.4)
[2017-12-30 20:58] LABS: PARTIAL THROMBOPLASTIN TIME 29.3 SECONDS (25.4-37.6)
[2017-12-30 21:10] LABS: ANION GAP 8 MEQ/L (8-16); BLOOD UREA NITROGEN 17 MG/DL (7-18); CALCIUM LEVEL 8.2 MG/DL (8.8-10.2); CARBON DIOXIDE LEVEL 22 MEQ/L (21-32); CHLORIDE LEVEL 111 MEQ/L (98-107); CK-MB VALUE MASS 7.9 NG/ML (<3.6); CPK CREATINE PHOSPHOKINASE 117 U/L (26-192); CREATININE FOR GFR 1.61 MG/DL (0.55-1.30); GLOMERULAR FILTRATION RATE 33.6 (>39); GLUCOSE, FASTING 108 MG/DL (70-100); MB/CK RELATIVE INDEX 6.75 (< OR =4); POTASSIUM SERUM 4.1 MEQ/L (3.5-5.1); SODIUM LEVEL 141 MEQ/L (136-145)
[2017-12-30 21:28] LABS: ALBUMIN 3.2 GM/DL (3.2-5.2); ALBUMIN/GLOBULIN RATIO 0.86 (1.00-1.93); ALKALINE PHOSPHATASE 93 U/L (45-117); ALT/SGPT 12 U/L (12-78); AST/SGOT 13 U/L (7-37); BILIRUBIN,DIRECT < 0.1 MG/DL (0.0-0.2); BILIRUBIN,TOTAL 0.1 MG/DL (0.2-1.0); LIPASE 86 U/L (73-393); TOTAL PROTEIN 6.9 GM/DL (6.4-8.2)
[2017-12-30] MEDS: NS 500 ML IV (22:00)
[2017-12-30] MEDS: HEPARIN SOD (PORCINE) 5000 UNITS/ML VIAL IV (22:11)
[2017-12-30] MEDS: HEPARIN DRIP 25,000 UNITS in APPROPRIATE DILUENT 1 EA IV (22:11)
== END 2017-12-30 23:43 | disposition short-term general hospital (02) ==
LOC: M ED 19:28
DX: I21.4 Non-ST elevation (NSTEMI) myocardial infarction (principal); I10 Essential (primary) hypertension; E78.5 Hyperlipidemia, unspecified; K21.9 Gastro-esophageal reflux disease without esophagitis; Z86.73 Personal history of transient ischemic attack (TIA), and cerebral infarction without residual deficits; Z95.5 Presence of coronary angioplasty implant and graft; F17.200 Nicotine dependence, unspecified, uncomplicated; Z79.899 Other long term (current) drug therapy; Z79.82 Long term (current) use of aspirin
CPT/HCPCS: J2270

== ENCOUNTER 2018-03-14 12:22 | Emergency (ER) | payer MEDICARE, MEDICAID ==
[2018-03-14 13:08] LABS: BASO # 0.1 10^3/uL (0.0-0.2); BASO % 0.6 % (0.0-1.0); EOS # 0.5 10^3/uL (0.0-0.50); EOS % 4.8 % (0.0-3.0); HEMATOCRIT 32.4 % (36.0-47.0); IMMATURE GRANULOCYTE % 0.5 % (0-3.0); LYMPH % 18.3 % (24.0-44.0); MEAN CORPUSCULAR HGB CONC 30.9 g/dl (32.0-36.5); MEAN CORPUSCULAR VOLUME 87.3 fl (80.0-96.0); MONO # 0.8 10^3/uL (0.0-0.8); MONO % 7.3 % (0.0-5.0); NEUTROPHILS # 7.4 10^3/uL (1.8-7.7); NEUTROPHILS % 68.5 % (36.0-66.0); PLATELET COUNT, AUTOMATED 491 10^3/uL (150-450); RED BLOOD COUNT 3.71 10^6/uL (4.00-5.40); RED CELL DISTRIBUTION WIDTH 15.9 % (11.5-14.5); WHITE BLOOD COUNT 10.9 10^3/uL (4.0-10.0)
[2018-03-14 13:32] LABS: INR 0.95; PROTHROMBIN TIME 12.8 SECONDS (12.1-14.4)
[2018-03-14 13:33] LABS: PARTIAL THROMBOPLASTIN TIME 28.3 SECONDS (25.4-37.6)
[2018-03-14 13:46] LABS: ALBUMIN 3.1 GM/DL (3.2-5.2); ALBUMIN/GLOBULIN RATIO 0.82 (1.00-1.93); ALKALINE PHOSPHATASE 99 U/L (45-117); ALT/SGPT 15 U/L (12-78); ANION GAP 6 MEQ/L (8-16); AST/SGOT 9 U/L (7-37); BILIRUBIN,DIRECT < 0.1 MG/DL (0.0-0.2); BILIRUBIN,TOTAL 0.2 MG/DL (0.2-1.0); BLOOD UREA NITROGEN 13 MG/DL (7-18); CALCIUM LEVEL 8.5 MG/DL (8.8-10.2); CARBON DIOXIDE LEVEL 23 MEQ/L (21-32); CHLORIDE LEVEL 111 MEQ/L (98-107); CPK CREATINE PHOSPHOKINASE 72 U/L (26-192); CREATININE FOR GFR 1.44 MG/DL (0.55-1.30); GLOMERULAR FILTRATION RATE 38.2 (>39); GLUCOSE, FASTING 93 MG/DL (70-100); LIPASE 177 U/L (73-393); MB/CK RELATIVE INDEX 1.67 (< OR =4); SODIUM LEVEL 140 MEQ/L (136-145); TOTAL PROTEIN 6.9 GM/DL (6.4-8.2); TROPONIN I < 0.02 NG/ML (< 0.10)
[2018-03-14] MEDS ORDERED: ISOVUE-370 76% 100ML VIAL (Q9967) As Ordered (14:23)
== END 2018-03-14 18:17 | disposition left against medical advice (07) ==
LOC: M ED 12:22
DX: R07.9 Chest pain, unspecified (principal); R00.1 Bradycardia, unspecified; I25.10 Atherosclerotic heart disease of native coronary artery without angina pectoris; I25.2 Old myocardial infarction; Z86.73 Personal history of transient ischemic attack (TIA), and cerebral infarction without residual deficits; K21.9 Gastro-esophageal reflux disease without esophagitis; F32.9 Major depressive disorder, single episode, unspecified; G89.29 Other chronic pain; M54.9 Dorsalgia, unspecified; Z95.5 Presence of coronary angioplasty implant and graft; Z72.0 Tobacco use; I71.4 Abdominal aortic aneurysm, without rupture; Z79.82 Long term (current) use of aspirin; Z79.899 Other long term (current) drug therapy
CPT/HCPCS: Q9967

== ENCOUNTER 2018-06-22 10:40 | Day surgery (SDC) | payer MEDICARE ==
[~2018-06-22] VITALS: Ht 162.6 cm; Wt 67.5 kg
[~2018-06-22 10:40] MED LIST changes: +ALBU17IN2 INH; -AMLO5TAB2 PO; +AMLO5TAB4 PO; +ASPI81CH40 PO; -ASPI81TA PO; +ATOR80TA59 PO; +AZIT-12 PO; +DULO1CAP3 PO; -GABA-282 PO; +GABA-843 PO; +GLYC1TAB18 PO; +LOSA50TA73 PO; +METO25TA4 PO; +MUCI1TAB16 PO; +NEUR300C PO; +NITR0.4S14 SL; +PANT40TA3 PO; +TIZA4CAP PO; -TIZA4CAP3 PO
[2018-06-22] MEDS ORDERED: NS 1,000 ML IV ONE (11:00)
--- NOTE | 2018-06-22 11:50 | ROOR ---
Patient Name: Carrie Calero Procedure Date: 06/22/2018 11:35 AM Date of : 1945 Age: 72 Room: [facility] Gender: Female Note Status: Finalized Procedure: Upper GI endoscopy Indications: Unexplained iron deficiency anemia, Diarrhea Providers: Meliton GUERRERO MD Referring MD: Kaylene Rain DO Requesting Provider: Medicines: Monitored Anesthesia Care Complications: No immediate complications. Procedure: Pre-Anesthesia Assessment: - The heart rate, respiratory rate, oxygen saturations, blood pressure, adequacy of pulmonary ventilation, and response to care were monitored throughout the procedure. The Endoscope was introduced through the mouth, and advanced to the third part of duodenum. The upper GI endoscopy was accomplished without difficulty. The patient tolerated the procedure well. Findings: The esophagus was normal. The stomach was normal. The examined duodenum was normal. Biopsies for histology were taken with a cold forceps in the second portion of the duodenum and in the third portion of the duodenum for evaluation of celiac disease. Impression: - Normal esophagus. - Normal stomach. - Normal examined duodenum. - Biopsies were taken with a cold forceps for evaluation of celiac disease. Recommendation: - Await pathology results. - Telephone endoscopist for pathology results in 2 weeks. Meliton Guerrero MD Meliton GUERRERO MD 06/22/2018 11:50:27 AM This report has been signed electronically. Number of Addenda: 0 Note Initiated On: 06/22/2018 11:35 AM Estimated Blood Loss: Estimated blood loss: none.
[2018-06-22] MEDS ORDERED: PROPOFOL 200 MG/20 ML VIAL As Ordered ONE (11:52)
[2018-06-22] MEDS ORDERED: LIDOCAINE 2% INJ 100 MG/5 ML SDV (FOR ANES.) As Ordered ONE (11:52)
--- NOTE | 2018-06-22 12:12 | ROOR ---
Patient Name: Carrie Calero Procedure Date: 06/22/2018 11:35 AM Date of : 1945 Age: 72 Room: [facility] Gender: Female Note Status: Finalized Procedure: Colonoscopy Indications: Unexplained iron deficiency anemia Providers: Meliton GUERRERO MD Referring MD: Kaylene Rain DO Requesting Provider: Medicines: Monitored Anesthesia Care Complications: No immediate complications. Procedure: Pre-Anesthesia Assessment: - The heart rate, respiratory rate, oxygen saturations, blood pressure, adequacy of pulmonary ventilation, and response to care were monitored throughout the procedure. The Colonoscope was introduced through the anus and advanced to 10 cm into the ileum. The colonoscopy was performed without difficulty. The patient tolerated the procedure well. The quality of the bowel preparation was good. Findings: The perianal and digital rectal examinations were normal. Retroflexion in the right colon was performed. There was evidence of a prior end-to-side colo-colonic anastomosis in the recto-sigmoid colon. This was patent and was characterized by healthy appearing mucosa. The entire examined colon appeared normal. The terminal ileum appeared normal. Impression: - Patent end-to-side rectosigmoid anastomosis, characterized by healthy appearing mucosa. - The entire colon is otherwise normal. - The examined portion of the ileum was normal. - Small internal hemorrhoids. - No specimens collected. Recommendation: - Continue present medications. - Patient has a contact number available for emergencies. The signs and symptoms of potential delayed complications were discussed with the patient. Return to normal activities tomorrow. Written discharge instructions were provided to the patient. Meliton Guerrero MD Meliton GUERRERO MD 06/22/2018 12:11:43 PM This report has been signed electronically. Number of Addenda: 0 Note Initiated On: 06/22/2018 11:35 AM Estimated Blood Loss: Estimated blood loss: none.
[2018-06-22 12:30] VITALS: BP 110/77
== END 2018-06-22 12:45 | disposition home or self-care (01) ==
LOC: M OPP 10:40
PROVIDERS: ATTEND Internal Medicine Gastroenterology
DX: D50.9 Iron deficiency anemia, unspecified (principal); R19.7 Diarrhea, unspecified; I10 Essential (primary) hypertension; M12.9 Arthropathy, unspecified; M79.7 Fibromyalgia; F41.9 Anxiety disorder, unspecified; F32.9 Major depressive disorder, single episode, unspecified; J44.9 Chronic obstructive pulmonary disease, unspecified; K21.9 Gastro-esophageal reflux disease without esophagitis; Z79.82 Long term (current) use of aspirin; Z79.899 Other long term (current) drug therapy

== ENCOUNTER → 2018-11-12 | Outpatient (CLI) | payer MEDICARE, MEDICAID ==
[~2018-11-12] MED LIST changes: -/CELE20CA PO; -/DULO30CA OR; -/ESOM40CA OR; -/ONDA4TA OR; -/ONDA4TA PO; -/PRAV20TA PO; -/PREG100CA PO; -AMLO5TAB4 PO; +AMLO5TAB6 PO; +ASPI-1 PO; -ASPI325T PO; +ASPI81CH36 PO; -ASPI81CH40 PO; +CELE1CAP4 PO; +CYMB1CAP5 OR; -DOCU10ELUD PO; +DOCU5LIQ PO; +HYDR-3715 PO; -LOSA50TA73 PO; +LOSA50TA88 PO; +LYRI100C PO; +NEXI1CAP3 OR; -NORCOTAB PO; +ONDA-1 OR; +ONDA-1 PO; +PRAV1TAB39 PO
--- NOTE | 2018-11-12 17:51 | REP ---
Bilateral lower extremity arterial Doppler ultrasound: History: Peripheral vascular disease. Findings: The ankle brachial indices are normal, measured at 1.1 on the right and 1.0 on the left. Mild plaquing is seen. There is evidence of a mild stenosis of the superficial femoral artery on the right at mid to distal level. Biphasic waveforms are noted in the arteries bilaterally. Velocity chart right lower extremity arteries: CF A PSV 79 cm/S Profunda 144 Proximal SFA 137 Mid SFA 127 Distal SFA 153 Popliteal 63 Proximal AT A 30 Tibioperoneal trunk 60 Proximal CRITICAL CARE PARAMEDIC 56 Distal CRITICAL CARE PARAMEDIC 63 Distal AT A 48 Velocity chart left lower extremity arteries: CF A PSV 100 cm/S Profunda 160 Proximal SFA 135 Mid SFA 125 Distal SFA 128 Popliteal 104 Proximal AT A 47 Tibioperoneal trunk 74 Proximal CRITICAL CARE PARAMEDIC 57 Distal CRITICAL CARE PARAMEDIC 54 Distal AT A 66 Electronically Signed by Felice Chris MD 11/12/2018 05:42 P
== END ==
LOC: M RAD 12:37
PROVIDERS: ATTEND Internal Medicine
DX: I70.213 Atherosclerosis of native arteries of extremities with intermittent claudication, bilateral legs (principal)

== ENCOUNTER 2018-12-19 12:04 | Emergency (ER) | payer MEDICARE, MEDICAID ==
[~2018-12-19] VITALS: Ht 162.6 cm; Wt 68.2 kg
[2018-12-19] MEDS ORDERED: ALPR0.5T3 PO (12:27)
[2018-12-19] MEDS ORDERED: PLAV1TAB2 PO (12:27)
[2018-12-19] MEDS ORDERED: CHLO125TA PO (12:27)
[2018-12-19 12:36] LABS: BASO # 0.1 10^3/uL (0.0-0.2); BASO % 0.6 % (0.0-1.0); EOS # 0.6 10^3/uL (0.0-0.50); EOS % 4.9 % (0.0-3.0); HEMATOCRIT 29.7 % (36.0-47.0); HEMOGLOBIN 9.8 g/dl (12.0-15.5); LYMPH # 2.4 10^3/uL (1.5-4.5); LYMPH % 20.9 % (24.0-44.0); MEAN CORPUSCULAR HEMOGLOBIN 28.2 pg (27.0-33.0); MEAN CORPUSCULAR VOLUME 85.6 fl (80.0-96.0); MONO # 0.8 10^3/uL (0.0-0.8); MONO % 6.8 % (0.0-5.0); NEUTROPHILS # 7.7 10^3/uL (1.8-7.7); NEUTROPHILS % 66.4 % (36.0-66.0); PLATELET COUNT, AUTOMATED 479 10^3/uL (150-450); RED BLOOD COUNT 3.47 10^6/uL (4.00-5.40); WHITE BLOOD COUNT 11.6 10^3/uL (4.0-10.0)
[2018-12-19] MEDS ORDERED: NS 500 ML IV ONE (12:45)
[2018-12-19 12:47] LABS: INR 1.05; PROTHROMBIN TIME 13.4 SECONDS (11.8-14.0)
[2018-12-19 13:17] LABS: ALBUMIN 3.2 GM/DL (3.2-5.2); BILIRUBIN,TOTAL 0.3 MG/DL (0.2-1.0); CALCIUM LEVEL 8.3 MG/DL (8.8-10.2); CK-MB VALUE MASS 1.1 NG/ML (<3.6); CREATININE FOR GFR 1.82 MG/DL (0.55-1.30); GLOMERULAR FILTRATION RATE 29.1 (>39); MB/CK RELATIVE INDEX 1.59 (< OR =4); POTASSIUM SERUM 3.3 MEQ/L (3.5-5.1); TOTAL PROTEIN 7.1 GM/DL (6.4-8.2); TROPONIN I 0.02 NG/ML (< 0.10)
--- NOTE | 2018-12-19 15:06 | REP ---
CHEST, PORTABLE: AP portable view of the chest is performed and compared to a prior study of 12/30/2017. There is bibasilar interstitial fibrotic change. There is no acute infiltrate. The heart is normal in size and there is calcification and tortuosity of the thoracic aorta. The mediastinal silhouette is unchanged. IMPRESSION: Stable chronic findings without acute infiltrate. Electronically Signed by Christophe Ayala MD 12/19/2018 04:39 P
[2018-12-19 15:11] LABS: CK-MB VALUE MASS 1.2 NG/ML (<3.6); CPK CREATINE PHOSPHOKINASE 57 U/L (26-192); MB/CK RELATIVE INDEX 2.11 (< OR =4); TROPONIN I < 0.02 NG/ML (< 0.10)
[2018-12-19 16:38] VITALS: BP 139/68
--- NOTE | 2018-12-19 19:36 | ECGEPIP ---
[facility] - ED Test Date: 2018-12-19 Pat Name: MAHESH AQUINO Department: Room: - Gender: Female It Director: JKhoi : 1945 Requested By: Nany Coon Order Number: [id number] Reading MD: Nany Coon Measurements Intervals [place] Rate: 71 P: 43 WV: 193 QRS: 5 QRSD: 94 T: 75 QT: 422 QTc: 459 Interpretive Statements SINUS RHYTHM NONSPECIFIC T-WAVE ABNORMALITY LESS PRONOUNCED ST CHANGES COMPARED 03/14/18 Electronically Signed on 12-19-2018 19:35:52 EDT by Nany Coon
--- NOTE | 2018-12-20 06:20 | REP ---
CT CHEST WITHOUT IV CONTRAST: CT chest performed without IV contrast. Sagittal and coronal reconstruction images are performed. Comparison is made with prior studies of 07/31/2015 and 03/14/2018. There are diffuse interstitial fibrotic changes throughout both lungs, which appear stable. There is biapical pleural thickening, which is stable. No acute infiltrate is seen. There is a tiny stable 3 mm nodule in the left lower lobe on image 64. I do not see evidence of significant mediastinal or axillary adenopathy. There is atherosclerotic calcification of the thoracic aorta without aneurysm. The heart is not enlarged. There is no pleural or pericardial effusion. Left adrenal gland is thickened and unchanged. There are degenerative changes of the spine. IMPRESSION: Stable chronic fibrotic changes of the lungs without acute infiltrate. No gross mediastinal adenopathy. Electronically Signed by Christophe Ayala MD 12/20/2018 09:02 A
--- NOTE | 2018-12-20 21:41 | ECGEPIP ---
[facility] - ED Test Date: 2018-12-19 Pat Name: MAHESH AQUINO Department: Room: - Gender: Female Car [employer]: jennifer : 1945 Requested By: MELITON Coombs Order Number: [id number] Reading MD: Meliton Chung Measurements Intervals [place] Rate: 52 P: [place]: 129 QRS: 19 QRSD: 94 T: 99 QT: 469 QTc: 439 Interpretive Statements Sinus bradycardia NONSPECIFIC T-WAVE ABNORMALITY Electronically Signed on 12-20-2018 21:41:14 EDT by Meliton Chung
== END 2018-12-19 16:39 | disposition home or self-care (01) ==
LOC: M ED 12:04
DX: E86.0 Dehydration (principal); R07.89 Other chest pain; R06.02 Shortness of breath; I10 Essential (primary) hypertension; K21.9 Gastro-esophageal reflux disease without esophagitis; F33.9 Major depressive disorder, recurrent, unspecified; Z86.73 Personal history of transient ischemic attack (TIA), and cerebral infarction without residual deficits; Z79.82 Long term (current) use of aspirin; Z79.01 Long term (current) use of anticoagulants; Z95.5 Presence of coronary angioplasty implant and graft; F17.210 Nicotine dependence, cigarettes, uncomplicated

== ENCOUNTER → 2018-12-25 | Outpatient (REF) | payer MEDICARE, MEDICAID ==
[~2018-12-25] MED LIST changes: +CHLO125TA PO; +PLAV1TAB2 PO
[2018-12-25 19:05] LABS: C REACTIVE PROTEIN QUANTITATIV 2.66 MG/DL (0.00-0.30); PERCENT SATURATION 7.6 % (13.2-45.0)
== END ==
LOC: M LAB REF 16:44
PROVIDERS: ATTEND Internal Medicine
DX: G89.29 Other chronic pain (principal); D64.9 Anemia, unspecified

== ENCOUNTER 2019-01-05 09:29 | Emergency (ER) | payer MEDICARE, MEDICAID ==
[~2019-01-05] VITALS: Ht 162.6 cm; Wt 69.1 kg
[~2019-01-05 09:29] MED LIST changes: -ALBU17IN2 INH; +ASPI81CH32 PO; -ASPI81CH36 PO; -DULO1CAP3 PO; +DULO1CAP6 PO; -OMEP40CA2 PO; +OMEP40CA97 PO; +PROV108A INH
[2019-01-05 09:30] VITALS: BP 109/55
[2019-01-05] MEDS ORDERED: PRAM1TAB7 (09:41)
[2019-01-05] MEDS ORDERED: LIDOCAINE 5% (LIDODERM) PATCH TD ONE (10:15)
[2019-01-05] MEDS ORDERED: ACETAMINOPHEN TAB 650MG DOSE (2X325MG) PO ONE (10:15)
[2019-01-05] MEDS ORDERED: METAL LOCK LOOP XX ONE (10:38)
[2019-01-05] MEDS ORDERED: BACL10TA2 PO (10:52)
[2019-01-05] MEDS ORDERED: **NOTE PATIENT COMMENT** MISC XX SCH (21:00)
[2019-02-21] MEDS ORDERED: DULO1CAP6 PO (10:48)
== END 2019-01-05 11:06 | disposition home or self-care (01) ==
LOC: M ED 10:02
DX: S39.012A Strain of muscle, fascia and tendon of lower back, initial encounter (principal); X58.XXXA Exposure to other specified factors, initial encounter; Y92.89 Other specified places as the place of occurrence of the external cause; M54.16 Radiculopathy, lumbar region; M62.830 Muscle spasm of back; I10 Essential (primary) hypertension; G43.909 Migraine, unspecified, not intractable, without status migrainosus; K21.9 Gastro-esophageal reflux disease without esophagitis; K58.9 Irritable bowel syndrome, unspecified; F33.9 Major depressive disorder, recurrent, unspecified; F41.9 Anxiety disorder, unspecified; E78.5 Hyperlipidemia, unspecified; I25.10 Atherosclerotic heart disease of native coronary artery without angina pectoris; Z79.899 Other long term (current) drug therapy; Z79.82 Long term (current) use of aspirin; Z79.02 Long term (current) use of antithrombotics/antiplatelets; F17.210 Nicotine dependence, cigarettes, uncomplicated

== ENCOUNTER 2019-01-08 06:26 | Emergency (ER) | payer MEDICAID, MEDICARE ==
[~2019-01-08] VITALS: Ht 162.6 cm; Wt 67.3 kg
[~2019-01-08 06:26] MED LIST changes: +ALBU17IN2 INH; -ASPI81CH32 PO; +ASPI81CH36 PO; +BACL10TA2 PO; +OMEP40CA2 PO; -OMEP40CA97 PO; +PRAM1TAB7; -PROV108A INH
[2019-01-08] MEDS ORDERED: BACL1TAB8 PO (06:38)
[2019-01-08] MEDS ORDERED: LIDO5DIS41 TOP (06:40)
[2019-01-08] MEDS ORDERED: VENTAER (07:32)
[2019-01-08] MEDS ORDERED: FLUTISP PO (07:32)
[2019-01-08] MEDS ORDERED: SYMB16INH (07:32)
[2019-01-08] MEDS ORDERED: LOSA50TA88 (07:32)
[2019-01-08] MEDS ORDERED: PLAV1TAB2 (07:32)
[2019-01-08] MEDS ORDERED: METO1TAB87 (07:32)
[2019-01-08] MEDS ORDERED: CHLO125TA PO (07:32)
[2019-01-08] MEDS ORDERED: ASPI81TA33 PO (07:32)
[2019-01-08] MEDS ORDERED: SING10TA32 PO (07:32)
[2019-01-08] MEDS ORDERED: MOME0.1C3 (07:32)
[2019-01-08] MEDS ORDERED: MORPHINE 4 MG/ML 1ML VIAL/SYRINGE (J2270) IV ONE (08:45)
[2019-01-08 09:27] LABS: BASO # 0.1 10^3/uL (0.0-0.2); BASO % 0.6 % (0.0-1.0); EOS # 0.6 10^3/uL (0.0-0.50); EOS % 5.2 % (0.0-3.0); HEMATOCRIT 30.7 % (36.0-47.0); HEMOGLOBIN 9.6 g/dl (12.0-15.5); LYMPH # 2.5 10^3/uL (1.5-4.5); LYMPH % 23.7 % (24.0-44.0); MEAN CORPUSCULAR HEMOGLOBIN 27.3 pg (27.0-33.0); MEAN CORPUSCULAR HGB CONC 31.3 g/dl (32.0-36.5); MEAN CORPUSCULAR VOLUME 87.2 fl (80.0-96.0); MONO # 0.8 10^3/uL (0.0-0.8); MONO % 7.4 % (0.0-5.0); NEUTROPHILS # 6.7 10^3/uL (1.8-7.7); NEUTROPHILS % 62.8 % (36.0-66.0); PLATELET COUNT, AUTOMATED 515 10^3/uL (150-450); RED BLOOD COUNT 3.52 10^6/uL (4.00-5.40); WHITE BLOOD COUNT 10.6 10^3/uL (4.0-10.0)
[2019-01-08 09:59] LABS: ALBUMIN 2.9 GM/DL (3.2-5.2); ALT/SGPT 12 U/L (12-78); BILIRUBIN,DIRECT < 0.1 MG/DL (0.0-0.2); BILIRUBIN,TOTAL 0.3 MG/DL (0.2-1.0); BLOOD UREA NITROGEN 16 MG/DL (7-18); CALCIUM LEVEL 8.8 MG/DL (8.8-10.2); CARBON DIOXIDE LEVEL 27 MEQ/L (21-32); CHLORIDE LEVEL 108 MEQ/L (98-107); CREATININE FOR GFR 1.35 MG/DL (0.55-1.30); GLUCOSE, FASTING 104 MG/DL (70-100); LIPASE 88 U/L (73-393); SODIUM LEVEL 130 MEQ/L (136-145); TOTAL PROTEIN 6.8 GM/DL (6.4-8.2)
[2019-01-08] MEDS: GASTROGRAFIN SOLUTION 30ML PO SCH ×2 (10:57→12:01)
[2019-01-08] MEDS ORDERED: KETOROLAC 30 MG/ML VIAL (J1885) IV ONE (12:15)
[2019-01-08] MEDS ORDERED: ISOVUE-370 76% 100ML VIAL (Q9967) As Ordered ONE (12:31)
--- NOTE | 2019-01-08 13:51 | REP ---
CT ABDOMEN AND PELVIS WITH ORAL AND IV CONTRAST: TECHNIQUE: Axial contrast enhanced images from the lung bases to the pubic symphysis using 100 mL Isovue 370 intravenous contrast material with multiplanar reformations. Visualized lung bases demonstrate interstitial fibrotic change. Liver demonstrates no mass. Gallbladder grossly unremarkable. There is mild dilatation of the common bile duct at 9 mm and also of the pancreatic duct at 4 mm with no definite obstructing lesion. No mass is seen in the pancreas. Spleen is normal in size with no intrinsic abnormality. Mild nodular thickening of the adrenal glands is unchanged since the prior CT of 07/31/2015. Right kidney is unremarkable. There is left renal artery stenosis with resultant moderate left renal atrophy. There is a delayed left nephrogram. Abdominal aorta demonstrates moderate atherosclerotic plaquing diffusely with fusiform aneurysmal dilatation of the distal abdominal aorta 3.3 cm slightly increased since prior study in 2015. Right common iliac artery is dilated distally up to 2.4 cm. Left common iliac artery is dilated diffusely up to 1.9 cm. No adenopathy is seen in the abdomen or pelvis. I see no free air or free fluid. No bowel thickening is seen. There is no evidence of appendicitis. No pelvic mass is seen. The patient has had a hysterectomy. The urinary bladder is mildly distended and grossly unremarkable. IMPRESSION: Mild fusiform aneurysmal dilatation of the distal abdominal aorta up to 3.3 cm of moderate intraluminal plaquing. No evidence of aneurysmal rupture or dissection. There is also dilatation of the common iliac arteries. Slight dilatation of the common bile duct 9 mm and pancreatic duct 4 mm. No obstructing lesion identified. Further evaluation may be made with MRCP exam. Left renal artery stenosis with resultant moderate left renal atrophy. Electronically Signed by Christophe Ayala MD 01/10/2019 09:19 A
[2019-01-08 14:34] VITALS: BP 132/63
--- NOTE | 2019-01-10 12:25 | ED PDOC ---
Post-Departure Follow-Up dr pulido faxed formal report of ct abd/p for fu Ambrose Mckeon MD Jan 10, 2019 12:24
== END 2019-01-08 14:41 | disposition home or self-care (01) ==
LOC: M ED 06:26
DX: M54.5 Low back pain (principal); I71.4 Abdominal aortic aneurysm, without rupture; I10 Essential (primary) hypertension; J44.9 Chronic obstructive pulmonary disease, unspecified; F33.9 Major depressive disorder, recurrent, unspecified; F41.9 Anxiety disorder, unspecified; K58.9 Irritable bowel syndrome, unspecified; E78.9 Disorder of lipoprotein metabolism, unspecified; Z79.899 Other long term (current) drug therapy; Z79.02 Long term (current) use of antithrombotics/antiplatelets
CPT/HCPCS: 36415; 74177; 80048; 80076; 81001; 83690; 85025; 93041; 96374; 96375; 99285; J1885; J2270; Q9963; Q9967

== ENCOUNTER 2019-01-19 01:38 | Emergency (ER) | payer MEDICARE ==
[~2019-01-19] VITALS: Ht 162.6 cm; Wt 68.2 kg
[~2019-01-19 01:38] MED LIST changes: +ASPI81TA33 PO; +BACL1TAB8 PO; +FLUTISP PO; +LIDO5DIS41 TOP; +LOSA50TA88; +METO1TAB87; +MOME0.1C3; +PLAV1TAB2; +SING10TA32 PO; +SYMB16INH; +VENTAER
[2019-01-19] MEDS ORDERED: MORPHINE 4 MG/ML 1ML VIAL/SYRINGE (J2270) IM ONE (02:15)
[2019-01-19] MEDS ORDERED: MORPHINE 4 MG/ML 1ML VIAL/SYRINGE (J2270) IV ONE (02:45)
[2019-01-19 03:45] VITALS: BP 147/78
--- NOTE | 2019-01-19 04:09 | REPVR ---
EXAM: CT Head Without Contrast EXAM DATE/TIME: 01/19/2019 1:57 AM CLINICAL HISTORY: 73 years old, female; Weakness, extremity; Left; Additional info: Neuro symptoms TECHNIQUE: Imaging protocol: Computed tomography images of the head without contrast. Radiation optimization: All CT scans at this facility use at least one of these dose optimization techniques: automated exposure control; mA and/or kV adjustment per patient size (includes targeted exams where dose is matched to clinical indication); or iterative reconstruction. COMPARISON: CT Head without contrast 05/16/2012 2:23 PM Comparison made to the reports of a CT scan and MRI of the brain from 08/23/2016, but the images are not available for direct comparison. FINDINGS: Brain: There is moderate, diffuse parenchymal volume loss. There is mild diffuse heterogeneity of the white matter attenuation, consistent with chronic white matter ischemic changes. There is encephalomalacia in the left cerebellar hemisphere, likely due to a prior infarct, unchanged from 2012. Focal areas of low-attenuation are seen in the anterior limb and the posterior limb of the left internal capsule, and in the left basal ganglia, likely due to chronic lacunar infarcts. The infarct in the anterior limb of the internal capsule was present on the 2012 exam. The cortical/white matter interfaces are preserved throughout the brain. There is no evidence of intracranial hemorrhage. Ventricles: The ventricular system demonstrates moderate diffuse compensatory enlargement. Bones/joints: No acute fractures of the skull are identified. Sinuses: There is minimal mucoperiosteal thickening in the visualized paranasal sinuses. No fluid levels. Mastoid air cells: Fluid is seen in the bilateral mastoid air cells. Soft tissues: Unremarkable. Vasculature: Atherosclerotic calcifications are seen in the cerebral arteries at the skull base. IMPRESSION: 1. Chronic encephalomalacia in the left cerebellar hemisphere and smaller low attenuation areas most consistent with chronic lacunar infarcts in the left internal capsule and basal ganglia. 2. No evidence of acute infarct or hemorrhage. Electronically signed by: Jocelin Luciano On 01/19/2019 04:08:56 AM
--- NOTE | 2019-01-19 06:27 | ECGEPIP ---
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
--- NOTE | 2019-01-20 07:54 | REP ---
LEFT SHOULDER, THREE VIEWS: Three views of the left shoulder performed. There is no acute fracture or dislocation. There is mild narrowing at the acromioclavicular joint. IMPRESSION: No fracture or dislocation. Mild narrowing AC joint. Electronically Signed by Christophe Ayala MD 01/20/2019 10:29 P
== END 2019-01-19 04:32 | disposition home or self-care (01) ==
LOC: M ED 01:38
DX: S46.912A Strain of unspecified muscle, fascia and tendon at shoulder and upper arm level, left arm, initial encounter (principal); R00.1 Bradycardia, unspecified; X58.XXXA Exposure to other specified factors, initial encounter; Y92.9 Unspecified place or not applicable; Y93.9 Activity, unspecified; Y99.9 Unspecified external cause status; I25.10 Atherosclerotic heart disease of native coronary artery without angina pectoris; I10 Essential (primary) hypertension; E78.5 Hyperlipidemia, unspecified; K21.9 Gastro-esophageal reflux disease without esophagitis; G89.29 Other chronic pain; M54.9 Dorsalgia, unspecified; Z86.73 Personal history of transient ischemic attack (TIA), and cerebral infarction without residual deficits; Z79.82 Long term (current) use of aspirin; Z79.899 Other long term (current) drug therapy
CPT/HCPCS: 70450; 73030; 93005; 96374; 99284; J2270

== ENCOUNTER 2019-01-31 09:26 | Emergency (ER) | payer MEDICAID, MEDICARE ==
[~2019-01-31] VITALS: Ht 162.6 cm; Wt 69.3 kg
[2019-01-31] MEDS ORDERED: diazePAM 5 MG TAB PO ONE (10:15)
[2019-01-31] MEDS ORDERED: NORCO, ANEXSIA 5/325MG TABLET (HYDROcodone/ACETAMINOPHEN) PO ONE (10:15)
[2019-01-31 10:54] VITALS: BP 156/78
[2019-01-31] MEDS ORDERED: PRED10TA2 PO (11:01)
[2019-01-31] MEDS ORDERED: GABA-843 PO (11:01)
[2019-02-21] MEDS ORDERED: DULO1CAP6 PO (10:48)
== END 2019-01-31 11:11 | disposition home or self-care (01) ==
LOC: M ED 09:26
DX: G89.29 Other chronic pain (principal); M54.5 Low back pain; I10 Essential (primary) hypertension; J44.9 Chronic obstructive pulmonary disease, unspecified; E78.5 Hyperlipidemia, unspecified; K21.9 Gastro-esophageal reflux disease without esophagitis; F33.9 Major depressive disorder, recurrent, unspecified; F41.9 Anxiety disorder, unspecified; K58.9 Irritable bowel syndrome, unspecified; M79.7 Fibromyalgia; Z79.899 Other long term (current) drug therapy; Z79.82 Long term (current) use of aspirin; Z79.02 Long term (current) use of antithrombotics/antiplatelets; F17.210 Nicotine dependence, cigarettes, uncomplicated

== ENCOUNTER → 2019-02-07 | Outpatient (CLI) | payer MEDICARE, MEDICAID ==
[~2019-02-07] MED LIST changes: -ALBU17IN2 INH; +ASPI81CH32 PO; -ASPI81CH36 PO; -OMEP40CA2 PO; +OMEP40CA97 PO; +PRED10TA2 PO; +PROV108A INH; +RANI150T14
--- NOTE | 2019-02-07 18:17 | REP ---
UPPER EXTREMITY DUPLEX DOPPLER ARTERIAL ULTRASOUND: Real-time ultrasound evaluation and duplex Doppler interrogation of the left upper extremity arterial system is performed. A 2 cm long thrombus is seen in the left axillary artery causing incomplete obstruction of the artery. Normal flow velocities are seen in the left subclavian artery with triphasic waveforms, peak systolic velocity is 98 cm/s. Left axillary artery demonstrates prethrombotic peak systolic velocity 19.8 cm/s and post stenosis 128 cm/s with monophasic waveforms in all of the arterial structures distal to the thrombus. Brachial artery demonstrates peak systolic velocity 25.9 cm/s, ulnar artery 17.8 cm/s and radial artery 13.3 cm/s. There is flow into the distal radial and ulnar arteries. Parvus tardus waveforms are seen distal to the thrombus. IMPRESSION: Thrombus in the left axillary artery 2 cm in length causes incomplete obstruction of the artery. Decreased flow velocities and monophasic waveforms, with parvus tardus waveforms, are noted distal to the incomplete obstruction. Electronically Signed by Christophe Ayala MD 02/08/2019 09:51 A
== END ==
LOC: M RAD 12:42
PROVIDERS: ATTEND Surgery Vascular Surgery
DX: I74.2 Embolism and thrombosis of arteries of the upper extremities (principal)

== ENCOUNTER → 2019-02-25 | Outpatient (CLI) | payer MEDICARE, MEDICAID ==
[~2019-02-25] MED LIST changes: +BUPIVACAINE HCL 0.5% 10 ML VIAL As Ordered ONE; +HEPARIN 1,000 UNITS/ML 10ML VIAL (FOR RADIOLOGY& DIALYSIS ONLY) As Ordered ONE; +ISOVUE-300 61% 50ML VIAL (Q9967) As Ordered ONE; +LIDOCAINE 2% MDV 20 ML VIAL As Ordered ONE; +MIDAZOLAM INJ 2 MG/2 ML VIAL (J2250) As Ordered ONE; +diphenhydrAMINE INJ 50MG/ML VIAL (J1200) As Ordered ONE; +fentaNYL 100 MCG/2 ML INJECTION (J3010) As Ordered ONE
[2019-02-25 11:00] VITALS: BP 118/56
--- NOTE | 2019-03-06 07:37 | REPIR ---
DATE OF PROCEDURE: 02/25/2019 ATTENDING SURGEON: Dr. 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 PROCEDURE: Ultrasound evaluation of left brachial artery, left brachial artery exposure, selective left subclavian artery catheter placement with angiogram, left subclavian artery angioplasty with 6 x 100 balloon, left axillary artery angioplasty with 6 x 100 balloon, left brachial artery angioplasty with 6 x 100 balloon. INDICATION: The patient is a 73-year-old female with left hand pain and weakness who underwent an ultrasound which showed occlusive disease in the axillary and brachial artery in the left upper extremity. The patient will undergo an angiogram with possible angioplasty stent and/or atherectomy. ANESTHESIA: Local sedation with 2 mg Versed, 100 mcg of fentanyl and 20 mL of 2% lidocaine mixed with 0.5% Marcaine. FLUORO TIME: 1.1-minute. CONTRAST: 5 mL of Isovue-300. SEDATION TIME: From 09:47 a.m. to 10:29 a.m. for a total of 42 minutes. HEPARIN: 6000 units. PROTAMINE: None. COMPLICATIONS: None. DRAINS: None. SPECIMENS: None. IMPLANTS: None. PROCEDURE: The patient was taken to the angiography suite, placed supine on the angiography room table and then prepped and draped in a standard surgical fashion. The left brachial artery was identified using ultrasound guidance and incision was then made over the brachial artery and the brachial artery was sharply dissected free proximally and distally and encircled with vessel loops. The patient was given heparin after which the brachial artery was cannulated. An angled guidewire and catheter were used to traverse through the brachial artery, axillary artery and into the subclavian artery and an angiogram was performed via selective subclavian artery catheter placement. This showed near occlusive stenosis in the distal subclavian artery extending across the axillary artery and into the proximal brachial artery. The left subclavian artery, axillary artery and brachial artery were all angioplastied with a 6 x 100 balloon. A completion subclavian artery angiogram showed resolution of the stenosis with excellent flow into the brachial artery distally. Catheters and wires were removed. The arteriotomy in the brachial artery was closed using a #6-0 Prolene suture. The incision was closed using #3-0 Monocryl in a running subcuticular fashion. Steri-Strips and dressings were applied. The patient tolerated the procedure well. All instrument, sponge, needle counts were correct at the end of the case. There were no complications. Dr. Gonzales was present for and directed the entire case. The patient was transferred to the holding area and subsequently discharged in stable condition.
== END ==
LOC: M IRPRO 07:47
PROVIDERS: ATTEND Surgery Vascular Surgery
DX: I70.8 Atherosclerosis of other arteries (principal); M79.602 Pain in left arm; N18.9 Chronic kidney disease, unspecified; Z79.899 Other long term (current) drug therapy; Z79.82 Long term (current) use of aspirin; Z79.01 Long term (current) use of anticoagulants; Z72.0 Tobacco use
CPT/HCPCS: 36215; 37246; 75710; C1725; C1769; C1887; C1894; J1200; J2250; J3010; Q9967

== ENCOUNTER → 2019-03-15 | Outpatient (CLI) | payer MEDICAID, MEDICARE ==
[~2019-03-15] MED LIST changes: -ASPI81CH32 PO; +ASPI81CH36 PO; -BUPIVACAINE HCL 0.5% 10 ML VIAL As Ordered ONE; -HEPARIN 1,000 UNITS/ML 10ML VIAL (FOR RADIOLOGY& DIALYSIS ONLY) As Ordered ONE; -ISOVUE-300 61% 50ML VIAL (Q9967) As Ordered ONE; -LIDOCAINE 2% MDV 20 ML VIAL As Ordered ONE; -MIDAZOLAM INJ 2 MG/2 ML VIAL (J2250) As Ordered ONE; +OMEP40CA2 PO; -OMEP40CA97 PO; -RANI150T14; -diphenhydrAMINE INJ 50MG/ML VIAL (J1200) As Ordered ONE; -fentaNYL 100 MCG/2 ML INJECTION (J3010) As Ordered ONE
--- NOTE | 2019-03-15 12:40 | REP ---
LEFT UPPER EXTREMITY ARTERIAL DOPPLER ULTRASOUND: HISTORY: Pain in the left arm. Nicotine dependence. History of thrombus in the left axillary artery. Comparison sonography February 07, 2019. The patient is status post angioplasty. FINDINGS: The axillary and brachial artery is patent. The previously noted collateral is no longer visible. Biphasic and triphasic waveforms are seen throughout the left arm. VELOCITY CHART LEFT UPPER EXTREMITY: Left subclavian proximal 126 cm/s Distal left subclavian 101 cm/s Axillary artery 81 cm/s Proximal brachial artery and 45 cm/s Mid brachial artery 86 cm/s Distal brachial artery 70 cm/s Proximal radial artery 81 cm/s Mid radial artery 56 cm/s Distal radial artery at the wrist 40 cm/s Proximal ulnar artery 52 cm/s Mid ulnar artery 62 cm/s Distal ulnar artery at the wrist 49 cm/s IMPRESSION: The left upper extremity arteries are patent. Previously noted axillary thrombus is no longer visible. Electronically Signed by Felice Chris MD 03/15/2019 02:41 P
== END ==
LOC: M RAD 11:04
PROVIDERS: ATTEND Physician Assistant
DX: M79.602 Pain in left arm (principal); F17.210 Nicotine dependence, cigarettes, uncomplicated; Z86.718 Personal history of other venous thrombosis and embolism

== ENCOUNTER 2019-05-05 09:41 | Emergency (ER) | payer MEDICARE ==
[~2019-05-05] VITALS: Ht 162.6 cm; Wt 70.4 kg
[~2019-05-05 09:41] MED LIST changes: -OMEP40CA2 PO; +OMEP40CA97 PO
[2019-05-05] MEDS ORDERED: PRAM1TAB7 (09:54)
[2019-05-05] MEDS ORDERED: RANI150T14 (09:54)
[2019-05-05] MEDS ORDERED: NITROGLYCERIN 2% OINT 1 GM *U/D* PKT TOP ONE (10:15)
[2019-05-05] MEDS ORDERED: MORPHINE 2 MG/ML 1ML VIAL (J2270) IV PRN (10:15)
--- NOTE | 2019-05-05 10:21 | REP ---
Clinical: Chest pain. Comparison: 12/19/2018. Findings: Mediastinum and cardiac silhouette are stable. Lung warner demonstrate chronic changes without obvious focal consolidation or effusion. No pneumothorax. Skeletal structures intact. Impression: Chronic stable changes. Electronically Signed by Raoul Henriquez MD 05/05/2019 10:12 A
[2019-05-05 10:28] LABS: BASO # 0.1 10^3/uL (0.0-0.2); BASO % 0.6 % (0.0-1.0); EOS # 0.4 10^3/uL (0.0-0.5); EOS % 4.3 % (0.0-3.0); HEMATOCRIT 34.8 % (36.0-47.0); HEMOGLOBIN 10.8 g/dl (12.0-15.5); LYMPH # 2.1 10^3/uL (1.5-5.0); LYMPH % 20.8 % (24.0-44.0); MEAN CORPUSCULAR HEMOGLOBIN 28.6 pg (27.0-33.0); MEAN CORPUSCULAR VOLUME 92.1 fl (80.0-96.0); MONO # 0.7 10^3/uL (0.0-0.8); MONO % 6.4 % (0.0-5.0); NEUTROPHILS # 6.9 10^3/uL (1.5-8.5); NEUTROPHILS % 67.5 % (36.0-66.0); PLATELET COUNT, AUTOMATED 441 10^3/uL (150-450); RED BLOOD COUNT 3.78 10^6/uL (4.00-5.40); WHITE BLOOD COUNT 10.2 10^3/uL (4.0-10.0)
[2019-05-05] MEDS ORDERED: MORPHINE 2 MG/ML 1ML VIAL (J2270) As Ordered ONE (10:32)
[2019-05-05 10:39] LABS: INR 1.05; PROTHROMBIN TIME 13.4 SECONDS (11.8-14.0)
[2019-05-05 11:00] LABS: ALBUMIN 2.9 GM/DL (3.2-5.2); ALT/SGPT 9 U/L (12-78); BILIRUBIN,DIRECT < 0.1 MG/DL (0.0-0.2); BILIRUBIN,TOTAL 0.2 MG/DL (0.2-1.0); BLOOD UREA NITROGEN 14 MG/DL (7-18); CALCIUM LEVEL 8.7 MG/DL (8.8-10.2); CARBON DIOXIDE LEVEL 21 MEQ/L (21-32); CHLORIDE LEVEL 108 MEQ/L (98-107); CK-MB VALUE MASS < 1.0 NG/ML (<3.6); CPK CREATINE PHOSPHOKINASE 47 U/L (26-192); CREATININE FOR GFR 1.31 MG/DL (0.55-1.30); GLOMERULAR FILTRATION RATE 42.5 (>39); GLUCOSE, FASTING 86 MG/DL (70-100); LIPASE 107 U/L (73-393); MB/CK RELATIVE INDEX 2.13 (< OR =4); POTASSIUM SERUM 4.4 MEQ/L (3.5-5.1); SODIUM LEVEL 137 MEQ/L (136-145); TOTAL PROTEIN 6.9 GM/DL (6.4-8.2); TROPONIN I < 0.02 NG/ML (< 0.10)
--- NOTE | 2019-05-05 12:02 | ECGEPIP ---
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
[2019-05-05] MEDS ORDERED: ACETAMINOPHEN TAB 650MG DOSE (2X325MG) PO ONE (12:30)
[2019-05-05 14:33] LABS: CK-MB VALUE MASS 1.3 NG/ML (<3.6); CPK CREATINE PHOSPHOKINASE 48 U/L (26-192); MB/CK RELATIVE INDEX 2.71 (< OR =4); TROPONIN I < 0.02 NG/ML (< 0.10)
[2019-05-05 14:47] VITALS: BP 146/80
--- NOTE | 2019-05-06 16:22 | ECGEPIP ---
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
== END 2019-05-05 14:54 | disposition home or self-care (01) ==
LOC: M ED 09:41
DX: R07.89 Other chest pain (principal); R06.02 Shortness of breath; R51 Headache; I25.2 Old myocardial infarction; I10 Essential (primary) hypertension; E78.5 Hyperlipidemia, unspecified; Z86.73 Personal history of transient ischemic attack (TIA), and cerebral infarction without residual deficits; M54.9 Dorsalgia, unspecified; K57.92 Diverticulitis of intestine, part unspecified, without perforation or abscess without bleeding; Z95.5 Presence of coronary angioplasty implant and graft; F17.200 Nicotine dependence, unspecified, uncomplicated; Z79.899 Other long term (current) drug therapy; Z79.02 Long term (current) use of antithrombotics/antiplatelets; Z79.51 Long term (current) use of inhaled steroids; Z79.82 Long term (current) use of aspirin
CPT/HCPCS: 71045; 80047; 80048; 80076; 82550; 82553; 83690; 84484; 85025; 85610; 93005; 93041; 94760; 96374; 99285; J2270

== ENCOUNTER → 2019-06-06 | Outpatient (CLI) | payer MEDICARE, MEDICAID ==
[~2019-06-06] MED LIST changes: +RANI150T14
--- NOTE | 2019-06-06 11:43 | REP ---
Clinical: History of thrombosed left axillary artery. Comparison: 03/15/2019. Technique: Real time espinosa scale and color Doppler evaluation using linear high frequency transducer. Findings: The left subclavian artery is patent and demonstrates mild smooth noncalcified intimal thickening. The axillary artery appears patent. The previously noted collateral from the axillary artery demonstrates thrombus and near complete occlusion. The brachial, radial, and ulnar arteries appear normal and patent. Biphasic wave patterns are noted throughout the examination. Velocities (cm/sec) Left subclavian artery proximal 112 Left subclavian artery distal 125 Axillary artery 78.3 Brachial artery proximal 84.0 Brachial artery mid 117.0 Brachial artery distal 129 Ulnar artery proximal 52.5 Ulnar artery mid 31.6 Ulnar artery distal 49.7 Radial artery proximal 71.9 Radial artery mid 47.0 Radial artery distal 24.6 Impression: 1. Patent subclavian through the radial and ulnar arteries with findings as described above. 2. Near complete occlusion of the axillary collateral vessel. Electronically Signed by Raoul Henriquez MD 06/06/2019 11:34 A
== END ==
LOC: M RAD 10:02
PROVIDERS: ATTEND Physician Assistant
DX: I77.1 Stricture of artery (principal); M79.602 Pain in left arm

== ENCOUNTER → 2019-06-13 | Outpatient (CLI) | payer MEDICARE, MEDICAID ==
--- NOTE | 2019-06-13 13:56 | REP ---
Left hand series: Four views. History: Injury in a fall. Findings: Four views of the left hand demonstrate marked diffuse osteoporosis. There is an obliquely oriented nondisplaced fracture through the fifth metacarpal with some associated swelling. No carpal injury is appreciated. The distal radius and ulna. An intact. No phalangeal fracture is seen. Impression: Fifth metacarpal fracture nondisplaced. Marked diffuse osteopenia. Electronically Signed by Felice Chris MD 06/13/2019 01:47 P
--- NOTE | 2019-06-13 13:57 | REP ---
Left wrist series: Four views. History: Injury in a fall. Findings: Four views of the left wrist demonstrate osteopenia. There is a soft tissue calcification in the palmar soft tissues adjacent to the fifth metacarpal. There is minimal first carpometacarpal osteoarthritis. No fractures seen. Impression: No wrist fracture noted. Electronically Signed by Felice Chris MD 06/13/2019 01:49 P
== END ==
LOC: M RAD 13:21
PROVIDERS: ATTEND Physician Assistant
DX: M25.542 Pain in joints of left hand (principal)

== ENCOUNTER → 2019-08-28 | Outpatient (REF) | payer MEDICARE, MEDICAID ==
[~2019-08-28] MED LIST changes: +ASPI81CH32 PO; -ASPI81CH36 PO
[2019-08-28 18:35] LABS: BASO # 0.1 10^3/uL (0.0-0.2); BASO % 0.6 % (0.0-1.0); EOS # 1.6 10^3/uL (0.0-0.5); EOS % 11.1 % (0.0-3.0); HEMATOCRIT 36.5 % (36.0-47.0); HEMOGLOBIN 11.1 g/dl (12.0-15.5); LYMPH # 2.3 10^3/uL (1.5-5.0); LYMPH % 16.4 % (24.0-44.0); MEAN CORPUSCULAR HEMOGLOBIN 28.8 pg (27.0-33.0); MEAN CORPUSCULAR HGB CONC 30.4 g/dl (32.0-36.5); MEAN CORPUSCULAR VOLUME 94.8 fl (80.0-96.0); MONO # 0.9 10^3/uL (0.0-0.8); NEUTROPHILS # 9.3 10^3/uL (1.5-8.5); NEUTROPHILS % 65.4 % (36.0-66.0); PLATELET COUNT, AUTOMATED 529 10^3/uL (150-450); RED BLOOD COUNT 3.85 10^6/uL (4.00-5.40); WHITE BLOOD COUNT 14.2 10^3/uL (4.0-10.0)
[2019-08-28 18:50] LABS: INR 1.09; PROTHROMBIN TIME 13.9 SECONDS (11.8-14.0)
== END ==
LOC: M LAB REF 17:32
PROVIDERS: ATTEND Physician Assistant
DX: L98.9 Disorder of the skin and subcutaneous tissue, unspecified (principal); Z79.01 Long term (current) use of anticoagulants

== ENCOUNTER 2019-09-02 12:10 | Emergency (ER) | payer MEDICARE, MEDICAID ==
[~2019-09-02] VITALS: Ht 162.6 cm; Wt 73.3 kg
[2019-09-02 13:22] LABS: BASO # 0.1 10^3/uL (0.0-0.2); BASO % 0.7 % (0.0-1.0); EOS # 1.6 10^3/uL (0.0-0.5); EOS % 12.8 % (0.0-3.0); HEMOGLOBIN 10.8 g/dl (12.0-15.5); LYMPH # 2.1 10^3/uL (1.5-5.0); LYMPH % 16.7 % (24.0-44.0); MEAN CORPUSCULAR HEMOGLOBIN 28.1 pg (27.0-33.0); MEAN CORPUSCULAR VOLUME 93.5 fl (80.0-96.0); MONO # 0.7 10^3/uL (0.0-0.8); MONO % 5.2 % (0.0-5.0); NEUTROPHILS # 8.1 10^3/uL (1.5-8.5); NEUTROPHILS % 64.1 % (36.0-66.0); PLATELET COUNT, AUTOMATED 481 10^3/uL (150-450); RED BLOOD COUNT 3.85 10^6/uL (4.00-5.40); WHITE BLOOD COUNT 12.6 10^3/uL (4.0-10.0)
[2019-09-02 13:46] LABS: BLOOD UREA NITROGEN 15 MG/DL (7-18); CARBON DIOXIDE LEVEL 23 MEQ/L (21-32); CHLORIDE LEVEL 108 MEQ/L (98-107); CREATININE FOR GFR 1.66 MG/DL (0.55-1.30); GLOMERULAR FILTRATION RATE 32.2 (>39); GLUCOSE, FASTING 88 MG/DL (70-100); POTASSIUM SERUM 4.3 MEQ/L (3.5-5.1); SODIUM LEVEL 138 MEQ/L (136-145)
[2019-09-02] MEDS ORDERED: ACETAMINOPHEN 500 MG TAB PO ONE (14:30)
[2019-09-02 14:33] LABS: C REACTIVE PROTEIN QUANTITATIV 4.23 MG/DL (0.00-0.30); CK-MB VALUE MASS 1.7 NG/ML (<3.6); CPK CREATINE PHOSPHOKINASE 87 U/L (26-192); MB/CK RELATIVE INDEX 1.95 (< OR =4); RHEUMATOID FACTOR QUANT 48.1 IU/ML (<15.0); TROPONIN I < 0.02 NG/ML (< 0.10)
[2019-09-02 14:50] LABS: ERYTHROCYTE SEDIMENTATION RATE 65 mm/hr (0-30)
[2019-09-02 14:58] VITALS: BP 158/68
[2019-09-03 14:17] LABS: ANTINUCLEAR ANTIBODIES DIRECT Negative (Negative)
== END 2019-09-02 14:59 | disposition home or self-care (01) ==
LOC: M ED 12:10
DX: R21 Rash and other nonspecific skin eruption (principal); L95.8 Other vasculitis limited to the skin; D69.2 Other nonthrombocytopenic purpura; J44.9 Chronic obstructive pulmonary disease, unspecified; I25.2 Old myocardial infarction; I10 Essential (primary) hypertension; Z95.2 Presence of prosthetic heart valve; Z79.899 Other long term (current) drug therapy

== ENCOUNTER → 2019-09-30 | Outpatient (CLI) | payer MEDICARE ==
--- NOTE | 2019-09-30 16:12 | REP ---
LEFT UPPER EXTREMITY DUPLEX DOPPLER ARTERIAL ULTRASOUND: Real-time ultrasound evaluation and duplex Doppler interrogation of left upper extremity arterial system is performed. Left vertebral artery is not visualized. Left upper extremity arterial system demonstrates normal flow velocities with biphasic and triphasic waveforms, without evidence of hemodynamically significant stenosis. No arterial thrombus is seen. LEFT PSV CCA proximal 74.7 cm/s Proximal subclavian 124 Mid subclavian 66 Distal subclavian 107 Axillary 105 Brachial 108 Ulnar 69 Radial 58 IMPRESSION: No hemodynamically significant stenosis. No arterial thrombus seen. Electronically Signed by Christophe Ayala MD 09/30/2019 04:50 P
--- NOTE | 2019-09-30 16:18 | REP ---
CAROTID ULTRASOUND: Real-time ultrasound evaluation and duplex Doppler interrogation of extracranial carotid vasculature performed. There is mild scattered plaquing and narrowing in the carotid bulbs extending to the internal and external carotid arteries. There is no evidence of hemodynamically significant stenosis, with normal flow velocities identified bilaterally. There is normal direction of flow in the right vertebral artery. The left vertebral artery is not visualized. Right Left PSV ICA 93.4 cm/s 98.2 cm/s EDV ICA 25.2 26.1 PSV CCA 96.2 98.0 PSV ECA 139 102 ICA/CCA ratio 0.97 1.0 IMPRESSION: Mild luminal narrowing bilateral carotid bulbs and internal carotid arteries without evidence of hemodynamically significant stenosis. Electronically Signed by Christophe Ayala MD 09/30/2019 04:50 P
== END ==
LOC: M RAD 12:00
PROVIDERS: ATTEND Physician Assistant
DX: M79.602 Pain in left arm (principal); R09.89 Other specified symptoms and signs involving the circulatory and respiratory systems

== ENCOUNTER → 2019-10-22 | Outpatient (REF) | payer MEDICARE, MEDICAID | LOC: M LAB REF 17:06 | PROVIDERS: ATTEND Internal Medicine | DX: M06.4 Inflammatory polyarthropathy (principal) ==

== ENCOUNTER 2019-11-26 10:56 | Emergency (ER) | payer MEDICAID, MEDICARE ==
[~2019-11-26] VITALS: Ht 162.6 cm; Wt 72.7 kg
[2019-11-26] MEDS ORDERED: ACETAMINOPHEN TAB 650MG DOSE (2X325MG) PO ONE (12:30)
[2019-11-26] MEDS ORDERED: traMADol 50 MG TAB PO ONE (12:30)
[2019-11-26] MEDS ORDERED: TRAM50TA2 PO (14:29)
[2019-11-26 14:38] VITALS: BP 100/59
--- NOTE | 2019-11-26 16:59 | REP ---
LEFT FEMUR: TWO VIEWS. HISTORY: Trauma. FINDINGS: Two views of the left femur demonstrate normal bones, joints, and soft tissues. No fracture or subluxation is seen. IMPRESSION: No fracture noted. Electronically Signed by Felice Chris MD 11/26/2019 06:02 P
--- NOTE | 2019-11-26 16:59 | REP ---
MR SPINE SERIES: FIVE VIEWS. HISTORY: Trauma. Comparison MRI study of the lumbar spine is from July 20, 2011. FINDINGS: Lumbar vertebral body heights are preserved. No fracture is seen. Pedicles and posterior elements are intact. There is osteoarthritic facet joint narrowing at L4-5 and L5-S1 bilaterally. Vascular calcification is noted in the aorta. Sacrum and SI joints are intact. There are surgical clips and sutures in the abdomen. IMPRESSION: No traumatic abnormality noted. Mild osteoarthritic facet changes at L4-5 and L5-S1. Minimal discogenic spurring at L4-5 and L5-S1. Postoperative changes in the abdomen. Electronically Signed by Felice Chris MD 11/26/2019 06:02 P
--- NOTE | 2019-11-26 17:02 | REP ---
PELVIS LEFT HIP: THREE VIEWS. HISTORY: Trauma. FINDINGS: AP view of the pelvis shows an intact bony pelvic ring. There are clips and sutures in the pelvis. Sacrum and SI joints are intact. No hip fracture is appreciated on either side. AP and frog-leg views of the left hip show smooth rounded femoral head and intact hip joint space. Periarticular soft tissues are unremarkable. IMPRESSION: No fracture seen. Electronically Signed by Felice Chris MD 11/26/2019 06:02 P
== END 2019-11-26 14:41 | disposition home or self-care (01) ==
LOC: M ED 10:56
DX: S70.02XA Contusion of left hip, initial encounter (principal); S39.012A Strain of muscle, fascia and tendon of lower back, initial encounter; W19.XXXA Unspecified fall, initial encounter; Y92.9 Unspecified place or not applicable; F17.200 Nicotine dependence, unspecified, uncomplicated; Y99.8 Other external cause status; G43.909 Migraine, unspecified, not intractable, without status migrainosus; Z86.73 Personal history of transient ischemic attack (TIA), and cerebral infarction without residual deficits; J44.9 Chronic obstructive pulmonary disease, unspecified; K21.9 Gastro-esophageal reflux disease without esophagitis; Z79.02 Long term (current) use of antithrombotics/antiplatelets; Z79.82 Long term (current) use of aspirin; Z79.899 Other long term (current) drug therapy

== ENCOUNTER 2019-11-30 14:32 | Emergency (ER) | payer MEDICARE ==
[~2019-11-30] VITALS: Ht 162.6 cm; Wt 72.7 kg
[~2019-11-30 14:32] MED LIST changes: +TRAM50TA2 PO
[2019-11-30] MEDS ORDERED: LOSA25TA14 (14:42)
[2019-11-30] MEDS ORDERED: HYDR-3713 (14:42)
[2019-11-30] MEDS ORDERED: QUET1TAB7 (14:42)
[2019-11-30] MEDS ORDERED: NORCO, ANEXSIA 5/325MG TABLET (HYDROcodone/ACETAMINOPHEN) PO ONE (17:15)
[2019-11-30 17:58] VITALS: BP 136/67
--- NOTE | 2019-12-01 08:36 | REP ---
CT LUMBAR SPINE WITHOUT CONTRAST: CT lumbar spine performed without IV contrast. Sagittal and coronal reconstruction images are performed. There is mild compression fracture of L4 with depression of the superior endplate. There are no retropulsed bony fragments. No other acute fracture or dislocation is seen. There is mild diffuse disc bulging at all levels. Hypertrophic spurring at the posterior facet joints and hypertrophy of the ligamentum flavum appears to cause a moderate degree of spinal stenosis at L4-5. There is aneurysmal dilatation of the distal abdominal aorta, which appear similar to the prior CT of 01/08/2019. IMPRESSION: Mild compression fracture L4 with depression of the superior endplate. No retropulsed osseous fragments. Mild diffuse disc bulging at all levels. There is moderate spinal stenosis at L4-5. Electronically Signed by Christophe Ayala MD 12/01/2019 10:11 A
== END 2019-11-30 18:10 | disposition home or self-care (01) ==
LOC: M ED 14:32
DX: S32.040A Wedge compression fracture of fourth lumbar vertebra, initial encounter for closed fracture (principal); X58.XXXA Exposure to other specified factors, initial encounter; Y92.89 Other specified places as the place of occurrence of the external cause; I10 Essential (primary) hypertension; J44.9 Chronic obstructive pulmonary disease, unspecified; I25.2 Old myocardial infarction; K21.9 Gastro-esophageal reflux disease without esophagitis; K58.9 Irritable bowel syndrome, unspecified; Z79.899 Other long term (current) drug therapy; Z79.82 Long term (current) use of aspirin; Z79.01 Long term (current) use of anticoagulants

== ENCOUNTER 2019-12-31 12:47 | Emergency (ER) | payer MEDICARE ==
[~2019-12-31] VITALS: Ht 162.6 cm; Wt 72.7 kg
[~2019-12-31 12:47] MED LIST changes: +HYDR-3713; +LOSA25TA14; +QUET1TAB7
[2019-12-31] MEDS ORDERED: AMLO5TAB6 PO (13:10)
[2019-12-31] MEDS ORDERED: HYDR200T3 PO (13:10)
[2019-12-31] MEDS ORDERED: GABA-843 PO (13:10)
[2019-12-31] MEDS ORDERED: FAMO40TA3 PO (13:10)
[2019-12-31] MEDS ORDERED: ATOR40TA75 PO (13:10)
[2019-12-31] MEDS ORDERED: DULO1CAP6 PO (13:10)
--- NOTE | 2019-12-31 13:23 | REP ---
Clinical: Chest pain . Comparison: 05/05/2019 . Findings: The mediastinum and cardiac silhouette are stable and within normal limits for portable technique. The lung warner demonstrate stable chronic-appearing changes without acute consolidation, effusion, or pneumothorax. Skeletal structures are intact. Impression: No acute cardiopulmonary process appreciated. Electronically Signed by Raoul Henriquez MD 12/31/2019 01:16 P
[2019-12-31 13:42] LABS: BASO # 0.1 10^3/uL (0.0-0.2); BASO % 0.5 % (0.0-1.0); EOS # 0.5 10^3/uL (0.0-0.5); EOS % 3.4 % (0.0-3.0); HEMATOCRIT 28.8 % (36.0-47.0); HEMOGLOBIN 8.9 g/dl (12.0-15.5); LYMPH % 15.3 % (24.0-44.0); MEAN CORPUSCULAR HEMOGLOBIN 28.5 pg (27.0-33.0); MEAN CORPUSCULAR HGB CONC 30.9 g/dl (32.0-36.5); MEAN CORPUSCULAR VOLUME 92.3 fl (80.0-96.0); MONO # 1.3 10^3/uL (0.0-0.8); MONO % 9.4 % (0.0-5.0); NEUTROPHILS # 9.5 10^3/uL (1.5-8.5); PLATELET COUNT, AUTOMATED 449 10^3/uL (150-450); RED BLOOD COUNT 3.12 10^6/uL (4.00-5.40); WHITE BLOOD COUNT 13.4 10^3/uL (4.0-10.0)
[2019-12-31] MEDS ORDERED: NITR4TASL SL (14:14)
[2019-12-31 14:34] VITALS: BP 110/64
--- NOTE | 2019-12-31 16:23 | ECGEPIP ---
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
== END 2019-12-31 14:36 | disposition left against medical advice (07) ==
LOC: M ED 12:47
DX: R07.9 Chest pain, unspecified (principal); I11.9 Hypertensive heart disease without heart failure; I25.2 Old myocardial infarction; E78.5 Hyperlipidemia, unspecified; Z86.73 Personal history of transient ischemic attack (TIA), and cerebral infarction without residual deficits; I25.10 Atherosclerotic heart disease of native coronary artery without angina pectoris; J44.9 Chronic obstructive pulmonary disease, unspecified; K58.9 Irritable bowel syndrome, unspecified; F41.9 Anxiety disorder, unspecified; F32.9 Major depressive disorder, single episode, unspecified; Z95.5 Presence of coronary angioplasty implant and graft; F17.200 Nicotine dependence, unspecified, uncomplicated; Z79.899 Other long term (current) drug therapy; Z79.02 Long term (current) use of antithrombotics/antiplatelets; Z79.51 Long term (current) use of inhaled steroids; Z79.82 Long term (current) use of aspirin

== ENCOUNTER 2020-02-01 19:50 | Emergency (ER) | payer MEDICARE, OTHER ==
[~2020-02-01 19:50] MED LIST changes: +AMLO1TAB24 PO; -AMLO5TAB6 PO; +ATOR40TA75 PO; +FAMO40TA3 PO; +HYDR200T3 PO; +NITR4TASL SL; +PANT40TA29 PO; -PANT40TA3 PO
[2020-02-01] MEDS ORDERED: PERCOCET 5MG/325MG TAB As Ordered ONE (21:28)
[2020-02-01] MEDS ORDERED: ASPIRIN 81 MG CHEW TABLET As Ordered ONE (21:28)
[2020-02-01] MEDS ORDERED: ISOVUE-370 76% 100ML VIAL As Ordered ONE (22:01)
[2020-03-08 21:36] LABS: BASO # 0.1 10^3/uL (0.0-0.2); BASO % 0.7 % (0.0-1.0); EOS # 0.6 10^3/uL (0.0-0.5); EOS % 5.8 % (0.0-3.0); HEMATOCRIT 33.1 % (36.0-47.0); LYMPH # 2.8 10^3/uL (1.5-5.0); LYMPH % 28.3 % (24.0-44.0); MEAN CORPUSCULAR HEMOGLOBIN 27.9 pg (27.0-33.0); MEAN CORPUSCULAR HGB CONC 30.2 g/dl (32.0-36.5); MEAN CORPUSCULAR VOLUME 92.2 fl (80.0-96.0); MONO # 0.9 10^3/uL (0.0-0.8); MONO % 8.8 % (0.0-5.0); NEUTROPHILS # 5.5 10^3/uL (1.5-8.5); NEUTROPHILS % 56.1 % (36.0-66.0); PLATELET COUNT, AUTOMATED 427 10^3/uL (150-450); RED BLOOD COUNT 3.59 10^6/uL (4.00-5.40); WHITE BLOOD COUNT 9.8 10^3/uL (4.0-10.0)
[2020-03-08 21:49] LABS: INR 0.99; PARTIAL THROMBOPLASTIN TIME 30.2 SECONDS (25.0-38.4); PROTHROMBIN TIME 13.2 SECONDS (11.8-14.0)
--- NOTE | 2020-03-18 16:07 | ECGEPIP ---
SINUS RHYTHM NORMAL ECG INTERPRETATION BASED ON A DEFAULT AGE OF [address] & T-WAVE ABNORMALITY NO OLD AVAILABLE SEE SCANNED DOWNTIME REPORT MTDD
--- NOTE | 2020-03-25 08:36 | REP ---
HISTORY: Chest pain. Bilateral edema. FINDINGS: The lungs are somewhat hyperinflated. EKG electrodes are seen. No infiltrate is seen. Pleural angles are sharp. Heart is not enlarged. The aorta is tortuous. Pulmonary vasculature is not increased. IMPRESSION: Mild hyperinflation. Otherwise, no acute disease. MTDD
[2020-04-12 12:13] LABS: ALT/SGPT 11 U/L (12-78); BILIRUBIN,DIRECT < 0.1 MG/DL (0.0-0.2); BILIRUBIN,TOTAL 0.1 MG/DL (0.2-1.0); BLOOD UREA NITROGEN 10 MG/DL (7-18); CALCIUM LEVEL 8.5 MG/DL (8.8-10.2); CARBON DIOXIDE LEVEL 27 MEQ/L (21-32); CHLORIDE LEVEL 107 MEQ/L (98-107); CK-MB VALUE MASS < 1.0 NG/ML (<3.6); CPK CREATINE PHOSPHOKINASE 60 U/L (26-192); CREATININE FOR GFR 1.34 MG/DL (0.55-1.30); GLOMERULAR FILTRATION RATE 41.3 (>39); GLUCOSE, FASTING 103 MG/DL (70-100); LIPASE 80 U/L (73-393); MB/CK RELATIVE INDEX 1.67 (< OR =4); POTASSIUM SERUM 4.4 MEQ/L (3.5-5.1); SODIUM LEVEL 138 MEQ/L (136-145); THYROID STIMULATING HORMONE 0.753 uIU/ML (0.358-3.740); TROPONIN I < 0.02 NG/ML (< 0.10)
== END 2020-02-01 22:51 | disposition left against medical advice (07) ==
LOC: M ED 19:50
DX: R07.9 Chest pain, unspecified (principal); I11.9 Hypertensive heart disease without heart failure; Z95.5 Presence of coronary angioplasty implant and graft; M79.89 Other specified soft tissue disorders; F17.200 Nicotine dependence, unspecified, uncomplicated; Z79.899 Other long term (current) drug therapy
CPT/HCPCS: 71046; 71275; 80048; 80076; 82550; 82553; 83690; 84439; 84443; 84484; 85025; 85610; 85730; 93005; 93970; 99284; Q9967

== ENCOUNTER → 2020-03-13 | Outpatient (REF) | payer OTHER, MEDICAID ==
[2020-03-13 19:56] LABS: TOTAL PROTEIN 6.9 GM/DL (6.4-8.2)
[2020-03-17 13:13] LABS: ALBUMIN 3.66 GM/DL (3.29-5.55); ALBUMIN % 53.1 % (55.8-66.1); ALPHA-1-GLOBULIN % 5.2 % (2.9-4.9); ALPHA-1-GLOBULINS 0.36 GM/DL (0.17-0.41); ALPHA-2-GLOBULINS 0.97 GM/DL (0.42-0.99); BETA-1-GLOBULINS % 7.2 % (4.7-7.2); BETA-2-GLOBULINS 0.46 GM/DL (0.19-0.55); BETA-2-GLOBULINS % 6.6 % (3.2-6.5); GAMMA GLOBULIN % 13.9 % (11.1-18.8); GAMMA GLOBULINS 0.96 GM/DL (0.65-1.58)
[2020-03-17 17:11] LABS: ANCA-ATYPICAL <1:20 titer (Neg:<1:20); CYTOPLASMIC NEUTROP AB ANCA-C <1:20 titer (Neg:<1:20); PERINUCLEAR AB ANCA-P <1:20 titer (Neg:<1:20); PHOSPHOLIPIDS LEVEL 151 mg/dL (150-250)
== END ==
LOC: M LAB REF 16:54
PROVIDERS: ATTEND Internal Medicine
DX: N18.3 Chronic kidney disease, stage 3 (moderate) (principal)

== ENCOUNTER → 2020-05-05 | Outpatient (REF) | payer MEDICARE | LOC: M LAB REF 19:21 | PROVIDERS: ATTEND Physician Assistant | DX: D23.71 Other benign neoplasm of skin of right lower limb, including hip (principal) | CPT/HCPCS: 11104; 88305; 88313; G0463 ==

== ENCOUNTER → 2020-05-11 | Outpatient (CLI) | payer MEDICARE, MEDICAID ==
--- NOTE | 2020-05-11 14:54 | REP ---
INDICATION: LUNG CANCER SCREENING. COMPARISON: CT angio chest 02/01/2020, 03/14/2018.. TECHNIQUE: Low-dose lung screening CT protocol FINDINGS: Apical pleuroparenchymal scarring in the lung apices is stable for over 2 years. Scattered peripheral fibrotic changes in the subpleural lung warner bilaterally. Some bronchiectatic changes evident with cylindrical bronchiectasis upper and lower lung zones. No calcified pleural plaque, pleural based mass, effusion or acute infiltrate. Allowing for slight differences in technique there is no interval change from 02/01/2020 and 03/14/2018 exams. IMPRESSION: Lung-RADS category 2 benign, benign finding. Stable examination. Patient with this category findings have less than 1% chance of malignancy at the time of the examination. The patient is at high risk for lung malignancy, a routine annual screening low-dose CT would be recommended. <Electronically signed by Gabino Rodriguez > 05/11/20 [id number]
== END ==
LOC: M RAD 11:15
PROVIDERS: ATTEND Specialist
DX: Z12.2 Encounter for screening for malignant neoplasm of respiratory organs (principal); Z87.891 Personal history of nicotine dependence

== ENCOUNTER → 2020-06-04 | Outpatient (REF) | payer MEDICARE, MEDICAID ==
[2020-06-04 17:56] LABS: C REACTIVE PROTEIN QUANTITATIV 1.85 MG/DL (0.00-0.30); COMPLEMENT C3 156 MG/DL (90-180); COMPLEMENT C4 32 MG/DL (10-40); CPK CREATINE PHOSPHOKINASE 42 U/L (26-192)
[2020-06-04 18:16] LABS: HEPATITIS B SURFACE ANTIGEN NEGATIVE (NEGATIVE)
[2020-06-04 20:31] LABS: TOTAL PROTEIN,RANDOM URINE 147.1 MG/DL (0.0-12.0)
[2020-06-09 07:06] LABS: ANA (HEP2) Negative (.); BETA-2 GLYCOPROTEIN I ABY IGA <9 (0-25); BETA-2 GLYCOPROTEIN I ABY IGG <9 (0-20); BETA-2 GLYCOPROTEIN I ABY IGM <9 (0-32); CARDIOLIPIN IGA ANTIBODY <9 APL U/mL (0-11); CARDIOLIPIN IGG ANTIBODY <9 GPL U/mL (0-14); CARDIOLIPIN IGM ANTIBODY <9 MPL U/mL (0-12); HEPATITIS B CORE ANTIBODY IGG Negative (Negative); SSA SJOGRENS A <0.2 AI (0.0-0.9); SSB SJOGRENS B <0.2 AI (0.0-0.9)
== END ==
LOC: M SFHCRHEU 13:52
PROVIDERS: ATTEND Internal Medicine
DX: I77.6 Arteritis, unspecified (principal); R76.8 Other specified abnormal immunological findings in serum
CPT/HCPCS: 82550; 82570; 82595; 82787; 84156; 85613; 85652; 85732; 86038; 86140; 86146; 86147; 86160; 86235; 86431; 86704; 86803; 87340; G0463

== ENCOUNTER → 2020-07-10 | Outpatient (CLI) | payer MEDICAID, MEDICARE ==
[2020-07-10 15:37] LABS: BASO # 0.1 10^3/uL (0.0-0.2); BASO % 0.5 % (0.0-1.0); EOS # 1.2 10^3/uL (0.0-0.5); EOS % 10.2 % (0.0-3.0); HEMOGLOBIN 9.7 g/dl (12.0-15.5); LYMPH # 2.1 10^3/uL (1.5-5.0); LYMPH % 18.6 % (24.0-44.0); MEAN CORPUSCULAR HEMOGLOBIN 27.4 pg (27.0-33.0); MEAN CORPUSCULAR HGB CONC 30.3 g/dl (32.0-36.5); MEAN CORPUSCULAR VOLUME 90.4 fl (80.0-96.0); MONO % 9.1 % (0.0-5.0); NEUTROPHILS # 6.9 10^3/uL (1.5-8.5); NEUTROPHILS % 61.2 % (36.0-66.0); PLATELET COUNT, AUTOMATED 450 10^3/uL (150-450); RED BLOOD COUNT 3.54 10^6/uL (4.00-5.40); WHITE BLOOD COUNT 11.3 10^3/uL (4.0-10.0)
[2020-07-10 16:18] LABS: ERYTHROCYTE SEDIMENTATION RATE 79 mm/hr (0-30)
[2020-07-10 16:53] LABS: ALBUMIN 2.7 GM/DL (3.2-5.2); BILIRUBIN,TOTAL 0.2 MG/DL (0.2-1.0); C REACTIVE PROTEIN QUANTITATIV 2.83 MG/DL (0.00-0.30); CALCIUM LEVEL 8.5 MG/DL (8.8-10.2); CREATININE FOR GFR 1.55 MG/DL (0.55-1.30); GLOMERULAR FILTRATION RATE 34.8 (>39); POTASSIUM SERUM 4.9 MEQ/L (3.5-5.1); TOTAL PROTEIN 6.7 GM/DL (6.4-8.2)
== END ==
LOC: M LAB 14:53
PROVIDERS: ATTEND Internal Medicine
DX: I77.6 Arteritis, unspecified (principal)

== ENCOUNTER 2020-07-20 12:17 | Inpatient (IN) | payer MEDICARE, MEDICAID ==
[~2020-07-20] VITALS: Ht 162.6 cm; Wt 71.5 kg
[~2020-07-20 12:17] MED LIST changes: +FLUTISP NARES; -FLUTISP PO; +GABA-282 PO; -GABA-843 PO; -LOSA25TA14; +LOSA25TA14 PO; +PRAM1TAB7 PO; -QUET1TAB7; +QUET25TA3 PO; -SYMB16INH; +SYMB16INH INH; -VENTAER; +VENTAER INH
--- OUTSIDE RECORDS SUMMARY | 2020-07-20 12:24 | CCD | Continuity of Care Document ---
Author Organization Unknown Address Unknown Phone Unavailable Care Team Providers Care Database Security Expert Name Role Phone Gui Pineda MD AUTM [phone] Kaylene Rain DO AUTM Unavailable Cruzito Tan MD AUTM [phone] [facility] AUTM [phone] Problems Active Problems Provider Date Acute bronchitis Kaylene Rain DO Onset: 05/16/2011 Chronic pain Kaylene Rain DO Onset: 07/08/2011 Chronic obstructive lung disease Kaylene Rain DO Onset: 07/08/2011 Restless legs Kaylene Rain DO Onset: 07/08/2011 Female genital organ symptoms Kaylene Rain DO Onset: 12/2011 Diarrhea Kaylene Rain DO Onset: 08/08/2011 Primary fibromyalgia syndrome Kaylene Rain DO Onset: Orthostatic hypotension Kaylene Rain DO Onset: 9 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 Currently smokes 4-5 cigarettes a day and sometimes she doesn't smoke at all that day Tattoo/Piercing Tattoo Tattoo/Piercing Pierced ears Allergies, Adverse Reactions, Alerts Description No Known Drug Allergies Medications Active Medications SIG Qnty Indications Ordering Provide r Date Mirapex 1mg Tablets take 2 tablet by mouth at night before bedtime 60tabs Kaylene Rain DO 05/26/20 20 Losartan Potassium 25mg Tablets Take 1 Tablet By Mouth Once Daily 30tabs Kaylene Rain,DO 10/22 Hydroxychloroquine Sulfate 200mg T ablets Take One Tablet By Mouth Every Day, Then Increase To Two Times A Day After 7 Days 60tabs Kaylene Rain,DO 09/23/2019 Atorvastatin Calcium 40mg Tablets 1 by mouth every day 90tabs Kaylene Rian,DO 09/23/2019 Amlodipine Besylate 5mg Tablets 1 by mouth daily 30tabs Kaylene Rain,DO 09/17/2019 Famotidine 40mg Tablets Take One Tablet By Mouth Every Day 30tabs Kaylene Rain,DO 07/23/2019 Ferrous Gluconate 324(37.5Fe) mg T ablets 1 by mouth every day 30tabs Kaylene Rain,DO 12/26/2018 Fluticasone Propionate 50mcg/Act Suspension [place] 2 Sprays In Each Nostril Every Morning as Needed 16units Dasia Garcia,STORE PERSON 12/13/2018 Mometasone Furoate 0.1% Cream Apply To [place] Two Times A Day For 2 Weeks The as Needed 15units Kaylene Rain,DO 02/23/2018 Zovirax 5% Ointment use to affected area tid. 30gm Kaylene Rain,DO 02/06/2018 Singulair 10mg Tablets take one tablet by mouth at bedtime prn 30tabs Kaylene Rain,DO 08/04/2017 Symbicort 160-4.5mcg/Act Aerosol 1 puff twice a day prn 10.2units Kaylene Rain,DO 07/07/2017 Ventolin HFA 108(90Base) mcg/Act A erosol 2 puffs four times a day as needed 1units Kaylene RainDO 07/04/2017 Metoprolol Tartrate 25mg Tablets Take One Tablet By Mouth Every Day 30tabs Kaylene Rain,DO 2016 Plavix 75mg Tablets 1 by mouth every day 90tabs Kaylene Rain,DO 09/02/2016 Ra Aspirin Ec Adult Low Strength 81mg Tablets DR 1 by mouth every day 30tabs Kaylene Rain,DO 09/02 Levocetirizine Dihydrochloride 5mg Tablets take one by mouth at at bedtime 30tabs Kaylene juarez,DO 03/08/2016 Pantoprazole Sodium 40mg Tablets D R Take One Tablet By Mouth Every Day 30tabs Dia Newsome, STORE PERSON 0 01/06/2016 Duloxetine HCL 60mg C[address] Anna Take One Capsule By Mouth Twice A Day 180captuyet Rain,DO 01/2016 Colace 100mg Capsules take one capsule by mouth twice a day 60laya Rain,DO 09/17/2014 Alprazolam 0.5mg Tablets 1 by mouth every day at at bedtime as needed 30tabs F41.1 Iain Mcconnell M.D. 05/16/2011 Nitrostat 0.4mg Tablets Sub one under tongue every 5 minutes x 3 as needed for chest discomfort 25tabs Unknown Gabapentin 300mg Capsules 1 by mouth bid Unknown Tylenol Codeine 4 one pill po every 4 to 6 hours Unknown Immunizations CPT Code Status Date Vaccine Lot # U-Flu Given 03/13/2018 Influenza,Unspecified [id number] Refused 04/03/2013 Fluvirin Virus Vaccine Vital Signs Date Vital Result Comment 05/26/2020 1:57pm BP Systolic 138 mmHg BP Diastolic 82 mmHg Height 63 inches 5'3" Weight 158.00 lb O2 % BldC Oximetry 96 % RM Air BMI (Body Mass Index) 28.0 kg/m2 12/19/2019 2:04pm BP Systolic 102 mmHg BP Diastolic 56 mmHg Heart Rate 63 /min Height 63 inches 5'3" Weight 161.00 lb BMI (Body Mass Index) 28.5 kg/m2 Results Test Acquired Date Facility Test Result H/L Range Note Laboratory test finding 07/10/[address] [id number] [phone] Creatinine,Random Urine 341.0 mg/dL Normal 1 Total Protein,Random Urine 198.0 mg/dL High 0.0-12.0 2 CBC With Differential 07/10/[address] [id number] [phone] White Blood Count 11.3 10 High 4.0-10.0 Red Blood Count 3.54 10 Low 4.00-5.40 Hemoglobin 9.7 g/dL Low 12.0-15.5 Hematocrit 32.0 % Low 36.0-47.0 Mean Corpuscular Volume 90.4 fl Normal 80.0-96.0 Mean Corpuscular Hemoglobin 27.4 pg Normal 27.0-33.0 Mean Corpuscular HGB Conc 30.3 g/dL Low 32.0-36.5 Red Cell Distribution Width 16.1 % High 11.5-14.5 Platelet Count, Automated 450 10 Normal 150-450 Neutrophils % 61.2 % Normal 36.0-66.0 Lymph % 18.6 % Low 24.0-44.0 [place] % 9.1 % High 0.0-5.0 Eos % 10.2 % High 0.0-3.0 Baso % 0.5 % Normal 0.0-1.0 Immature Granulocyte % 0.4 % Normal 0-3.0 Nucleated Red Blood Cell % 0.0 % Normal 0-0 Neutrophils # 6.9 10 Normal 1.5-8.5 Lymph # 2.1 10 Normal 1.5-5.0 [place] # 1.0 10 High 0.0-0.8 Eos # 1.2 10 High 0.0-0.5 Baso # 0.1 10 Normal 0.0-0.2 Laboratory test finding 07/10/[address] [address] [phone] Erythrocyte Sedimentation Rate 79 mm/hr High 0 -30 Comprehensive Metabolic Profil 07/10/[address] [id number] [phone] Glucose, Fasting 110 mg/dL High 70-100 Blood Urea Nitrogen 15 mg/dL Normal 7-18 Creatinine For GFR 1.55 mg/dL High 0.55-1.30 Glomerular Filtration Rate 34.8 Low >39 3 Sodium Level 138 mEq/L Normal 136-145 Potassium Serum 4.9 mEq/L Normal 3.5-5.1 Chloride Level 110 mEq/L High 98-107 Carbon Dioxide Level 24 mEq/L Normal 21-32 Anion Gap 4 mEq/L Low 8-16 Calcium Level 8.5 mg/dL Low 8.8-10.2 Ast/Sgot 5 U/L Low 7-37 Alt/SGPT 10 U/L Low 12-78 Alkaline Phosphatase 92 U/L Normal 45-117 Bilirubin,Total 0.2 mg/dL Normal 0.2-1.0 Total Protein 6.7 GM/DL Normal 6.4-8.2 Albumin 2.7 GM/DL Low 3.2-5.2 Albumin/Globulin Ratio 0.7 Low 1.2-2.2 Laboratory test finding 07/10/2020 [facility] [address] [place] [address] [phone] Complement C3 139 mg/dL Normal 90-180 4 Complement C4 29 mg/dL Normal 10-40 5 C Reactive Protein Quantitativ 2.83 mg/dL High 0.00-0.30 6 Complete Blood Count 05/26/2020 [facility] [employer] [employer] Health And Safety Representative: [place] [address] [phone] WBC 11.9 x10*3/UL High 4.1 - 10.9 RBC 3.79 x10*6/UL Low 4.20 - 6.30 Hemoglobin 10.7 g/dL Low 12.0 - 18.0 Hematocrit 32.1 % Low 37.0 - 51.0 MCV 84.7 fL 80.0 - 97.0 MCH 28.4 pg 26.0 - 32.0 MCHC 33.5 g/dL 31.0 - 38.0 RDW 16.2 % High 11.6 - 13.7 PLT 560 x10*3/UL High 140 - 440 MPV 7.6 FL Low 7.8 - 11.0 Lymph % 17.9 % 10.0 - 58.5 Mid % 5.5 % 1.7 - 9.3 Neut % 76.6 % 37.0 - 92.0 Lymph # 2.1 x10*3/UL 0.6 - 4.1 Mid # 0.7 x10*3/UL High 0.1 - 0.6 Neut # 9.1 x10*3/UL High 2.0 - 7.8 Comprehensive Chem Profile 05/26/2020 [facility] Health And Safety Representative: [place] [address] [phone] Glucose 117 mg/dL High 74 - 99 7 BUN 12 mg/dL 7 - 18 Creatinine 1.6 mg/dL High 0.6 - 1.3 Sodium 142 mEq/L 136 - 145 Potassium 3.5 mEq/L 3.5 - 5.1 Chloride 106 mEq/L 98 - 107 Carbon Dioxide 25 mEq/L 21 - 32 Calcium 8.6 mg/dL 8.5 - 10.1 Alk. Phosphatase 92 mg/dL 46 - 116 Total Bilirubin 0.2 mg/dL 0.2 - 1.0 Ast (Sgot) 12 U/L Low 15 - 37 Alt (SGPT) 13 U/L 12 - 78 Albumin 3.2 g/dL Low 3.4 - 5.0 Total Protein 7.2 g/dL 6.4 - 8.2 A/G Ratio 0.80 CALC Low 1.00 - 1.90 GFR 32 mL/min Low >60 GFR 38 mL/min Low >60 8 CBC With Differential 04/29/[address] [id number] [phone] White Blood Count 12.1 10 High 4.0-10.0 Red Blood Count 3.57 10 Low 4.00-5.40 Hemoglobin 9.5 g/dL Low 12.0-15.5 Hematocrit 31.7 % Low 36.0-47.0 Mean Corpuscular Volume 88.8 fl Normal 80.0-96.0 Mean Corpuscular Hemoglobin 26.6 pg Low 27.0-33.0 Mean Corpuscular HGB Conc 30.0 g/dL Low 32.0-36.5 Red Cell Distribution Width 16.7 % High 11.5-14.5 Platelet Count, Automated 439 10 Normal 150-450 Neutrophils % 62.7 % Normal 36.0-66.0 Lymph % 22.4 % Low 24.0-44.0 [place] % 7.9 % High 0.0-5.0 Eos % 6.0 % High 0.0-3.0 Baso % 0.7 % Normal 0.0-1.0 Immature Granulocyte % 0.3 % Normal 0-3.0 Nucleated Red Blood Cell % 0.0 % Normal 0-0 Neutrophils # 7.6 10 Normal 1.5-8.5 Lymph # 2.7 10 Normal 1.5-5.0 [place] # 1.0 10 High 0.0-0.8 Eos # 0.7 10 High 0.0-0.5 Baso # 0.1 10 Normal 0.0-0.2 Comprehensive Metabolic Profil 04/29/[address] [address] [phone] Glucose, Fasting 86 mg/dL Normal 70-100 Blood Urea Nitrogen 14 mg/dL Normal 7-18 Creatinine For GFR 1.68 mg/dL High 0.55-1.30 Glomerular Filtration Rate 31.8 Low >39 9 Sodium Level 140 mEq/L Normal 136-145 Potassium Serum 4.1 mEq/L Normal 3.5-5.1 Chloride Level 110 mEq/L High 98-107 Carbon Dioxide Level 25 mEq/L Normal 21-32 Anion Gap 5 mEq/L Low 8-16 Calcium Level 8.3 mg/dL Low 8.8-10.2 Ast/Sgot 4 U/L Low 7-37 Alt/SGPT 9 U/L Low 12-78 Alkaline Phosphatase 85 U/L Normal 45-117 Bilirubin,Total 0.2 mg/dL Normal 0.2-1.0 Total Protein 6.8 GM/DL Normal 6.4-8.2 Albumin 3.0 GM/DL Low 3.2-5.2 Albumin/Globulin Ratio 0.8 Low 1.2-2.2 Laboratory test finding 04/29/[address] [address] [phone] Carcinoembryonic Antigen 4.0 NG/ML High <2.5 10 Laboratory test finding 03/13/[address] [address] [phone] Phospholipids Level 151 mg/dL Normal 150-250 1 1 Serum Protein Electrophoresis 03/13/[address] [address] [phone] Albumin % 53.1 % Low 55.8-66.1 Tlqjn-9-Oufxepyo % 5.2 % High 2.9-4.9 Dltsa-6-Cempeixki % 14.0 % High 7.1-11.8 Tvsn-2-Nlrnovdbd % 7.2 % Normal 4.7-7.2 Alvy-9-Urlvttscy % 6.6 % High 3.2-6.5 Gamma Globulin % 13.9 % Normal 11.1-18.8 Albumin 3.66 GM/DL Normal 3.29-5.55 Gfaqd-7-Jdwdwgehm 0.36 GM/DL Normal 0.17-0.41 Negly-2-Kzdxffkwt 0.97 GM/DL Normal 0.42-0.99 Vrnw-3-Nohbsjdut 0.50 GM/DL Normal 0.28-0.60 Jvcw-4-Bxcamtymp 0.46 GM/DL Normal 0.19-0.55 Gamma Globulins 0.96 GM/DL Normal 0.65-1.58 Total Protein 6.9 GM/DL Normal 6.4-8.2 Spep Interpretation SEE COMMENT Normal 12 Spep Pathologist Review REV'D BY O ADJAP <SEE NOTE> Normal 13 Anti-Neutrophil Cytoplasmic AB 03/13/2020 [place] [id number] [phone] Cytoplasmic Neutrop AB Anca-C <1:20 titer Normal N eg:<1:20 Perinuclear AB Anca-P <1:20 titer Normal Neg:<1:20 14 Anca-Atypical <1:20 titer Normal Neg:<1:20 15 Laboratory test finding 03/13/2020 [facility] [employer] Health And Safety Representative: [place] [address] [phone] Sed Rate 41 mm/hr High 0 - 15 PT & Aptt 02/01/2020 [facility] nter [address] [place] [address] [phone] Prothrombin Time 13.2 seconds Normal 11.8-14.0 Inr 0.99 Normal 16 Partial Thromboplastin Time 30.2 seconds Normal 25.0-38.4 CBC With Differential 02/01/[address] [address] [phone] White Blood Count 9.8 10 Normal 4.0-10.0 Red Blood Count 3.59 10 Low 4.00-5.40 Hemoglobin 10.0 g/dL Low 12.0-15.5 Hematocrit 33.1 % Low 36.0-47.0 Mean Corpuscular Volume 92.2 fl Normal 80.0-96.0 Mean Corpuscular Hemoglobin 27.9 pg Normal 27.0-33.0 Mean Corpuscular HGB Conc 30.2 g/dL Low 32.0-36.5 Red Cell Distribution Width 15.9 % High 11.5-14.5 Platelet Count, Automated 427 10 Normal 150-450 Neutrophils % 56.1 % Normal 36.0-66.0 Lymph % 28.3 % Normal 24.0-44.0 [place] % 8.8 % High 0.0-5.0 Eos % 5.8 % High 0.0-3.0 Baso % 0.7 % Normal 0.0-1.0 Immature Granulocyte % 0.3 % Normal 0-3.0 Nucleated Red Blood Cell % 0.0 % Normal 0-0 Neutrophils # 5.5 10 Normal 1.5-8.5 Lymph # 2.8 10 Normal 1.5-5.0 [place] # 0.9 10 High 0.0-0.8 Eos # 0.6 10 High 0.0-0.5 Baso # 0.1 10 Normal 0.0-0.2 Cardiac Injury Profile 02/01/[address] [address] [phone] CPK Creatine Phosphokinase 60 U/L Normal 26-19 2 CK-MB Value Mass < 1.0 NG/ML Normal <3.6 MB/CK Relative Index 1.67 Normal < Or =4 17 Liver Profile 02/01/2020 [facility] nter [address] [place] [address] [phone] Ast/Sgot 11 U/L Normal 7-37 Alt/SGPT 11 U/L Low 12-78 Alkaline Phosphatase 101 U/L Normal 45-117 Bilirubin,Total 0.1 mg/dL Low 0.2-1.0 Bilirubin,Direct < 0.1 mg/dL Normal 0.0-0.2 Total Protein 7.0 GM/DL Normal 6.4-8.2 Albumin 3.0 GM/DL Low 3.2-5.2 Albumin/Globulin Ratio 0.8 Low 1.2-2.2 Basic Metabolic Profile 02/01/[address] [address] [phone] Glucose, Fasting 103 mg/dL High 70-100 Blood Urea Nitrogen 10 mg/dL Normal 7-18 Creatinine For GFR 1.34 mg/dL High 0.55-1.30 Glomerular Filtration Rate 41.3 Normal >39 1 8 Sodium Level 138 mEq/L Normal 136-145 Potassium Serum 4.4 mEq/L Normal 3.5-5.1 Chloride Level 107 mEq/L Normal 98-107 Carbon Dioxide Level 27 mEq/L Normal 21-32 Anion Gap 4 mEq/L Low 8-16 Calcium Level 8.5 mg/dL Low 8.8-10.2 Laboratory test finding 02/01/2020 [facility] [address] [place], [place] [id number] [phone] Troponin I < 0.02 NG/ML Normal < 0.10 19 Lipase 80 U/L Normal 73-393 Thyroid Stimulating Hormone 0.753 uIU/ML Normal 0.358-3.740 Free T4 0.90 ng/dL Normal 0.76-1.46 Laboratory test finding 01/24/2020 [facility] And Safety Representative: [place] [address] [phone] Sed Rate 54 mm/hr High 0 - 15 1 note:<nlbl:demographic_chang ed> 2 note:<nlbl:demographic_chang ed> 3 Units are mL/min/1.73 m2 Chronic Kidney Disease Staging per NKF: Stage I & II GFR >=60 Normal to Mildly Decreased Stage III GFR 30-59 Moderately Decreased Stage IV GFR 15-29 Severely Decreased Stage V GFR <15 Very Little GFR Left ESRD GFR <15 on STORYBOARD ARTIST 4 note:<nlbl:demographic_chang ed> 5 note:<nlbl:demographic_chang ed> 6 note:<nlbl:demographic_chang ed> 7 100-125 mg/dL PRE-DIABET ES/FASTING >126 mg/dL DIABETES/FASTING 8 CHRONIC KIDNEY DISEASE STAGI NG PER NKF STAGE I & II GFR >= 60 NORMAL TO MILDLY DECREASED STAGE III GFR 30-59 MODERATELY DECREASED STAGE IV GFR 15-29 SEVERELY DECREASED STAGE V GFR <15 VERY LITTLE GFR LEFT ESRD GFR <15 ON STORYBOARD ARTIST 9 Units are mL/min/1.73 m2 Chronic Kidney Disease Staging per NKF: Stage I & II GFR >=60 Normal to Mildly Decreased Stage III GFR 30-59 Moderately Decreased Stage IV GFR 15-29 Severely Decreased Stage V GFR <15 Very Little GFR Left ESRD GFR <15 on STORYBOARD ARTIST 10 THE CEA ASSAY IS PERFORMED O N THE [place] World[employer]UR BY CHEMILUMINESCENCE AND SHOULD NOT BE COMPARED INTERCHANGEABLY WITH OTHER METHODS. IT SHOULD NOT BE USED ALONE A SCREENING TEST OR DIAGNOSIS FOR THE PRESENCE OR ABSENCE OF MALIGNANT DISEASE. PREDICTIONS OF DISEASE RECURRENCE SHOULD NOT BE BASED SOLELY ON VALUES OBTAINED FROM SERIAL PATIENT SERUM VALUES. 11 Results for this test are fo r research purposes only by the assay's employee adviser. The performance characteristics of this product have not been established. Results should not be used as a diagnostic procedure without confirmation of the diagnosis by another medically established diagnostic product or procedure. Performed at: [address] [id number] Health And Safety Representative: Trevin Hardin MD, Phone: [phone] 12 NO M-SPIKE(S)NOTED. 13 REV'D BY Samaria OLIVARES 14 The presence of positive flu orescence exhibiting P-ANCA or C-ANCA patterns alone is not specific for the diagnosis of Carmen's Granulomatosis (WG) or microscopic polyangiitis. Decisions about treatment should not be based solely on ANCA IFA results. The International ANCA Group Consensus recommends follow up testing of positive sera with both UT- 3 and MPO-ANCA enzyme immunoassays. As m any as 5% serum samples are positive only by EIA. Ref. AM J Clin Pathol 1999;111:507-513. 15 The atypical pANCA pattern h as been observed in a significant percentage of patients with ulcerative colitis, primary sclerosing cholangitis and autoimmune hepatitis. 16 THERAPUTIC HUMAN INR VALUES INDICATIONS NORMAL RANGES PROPHYLAXIS/TREATMENT OF: VENOUS THROMBOSIS 2.0-3.0 PULMONARY EMBOLISM 2.0-3.0 PREVENTION OF SYSTEMIC EMBOLISM FROM: TISSUE HEART VALVES 2.0-3.0 ACUTE MYOCARDIAL INFARCTION 2.0-3.0 VALVULAR HEART DISEASE 2.0-3.0 ATRIAL FIBRILLATION 2.0-3.0 MECHANICAL VALVES(HIGH RISK) 2.5-3.5 RECURRENT MYOCARDIAL INFARCTION 2.5-3.5 17 DIAGNOSIS CRITERIA MMB ng/ml Relative Index (RI) NON-AMI < or = 5 N/A [place] > 5 < or = 4 AMI > 5 > 4 18 Units are mL/min/1.73 m2 Chronic Kidney Disease Staging per NKF: Stage I & II GFR >=60 Normal to Mildly Decreased Stage III GFR 30-59 Moderately Decreased Stage IV GFR 15-29 Severely Decreased Stage V GFR <15 Very Little GFR Left ESRD GFR <15 on STORYBOARD ARTIST 19 Troponin I Reference Interva l for [facility] [place] LOCI: 99th Percentile= 0.00-0.045 ng/ml Risk Stratification: <= 0.10 ng/ml Decreased Risk for Adverse Clinical Events. 0.10-1.50 ng/ml Increased Risk for Adv erse Clinical Events. Evaluation of additional criterion and/or repeat testing in 2-6 hours is suggested to rule out myocardial damage. >= 1.50 ng/ml Indicative of Myocardial Injury. Procedures Date Code Description Status 02/25/2020 733017163 Diabetic Retinal Eye Exam Comple bertram 09/13/2018 [id number] Diabetic Retinal Eye Exam Comple bertram 06/22/2018 [id number] Colonoscopy Completed 11/23/2015 [id number] Mammogram Completed 10/24/2014 [id number] Mammogram Completed 11/19/2013 [id number] Colonoscopy Completed 05/15/2012 [id number] Mammogram Completed 01/24/2011 [id number] Mammogram Completed 04/01/2010 [id number] Colonoscopy Completed Medical Devices Description No Information Available Encounters Type Date Location Provider Dx Diagnosis Office Visit 05/26/2020 2:00p [facility] 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 M79.7 Fibromyalgia F41.0 Panic disorder [episodic par oxysmal anxiety] Z86.73 Prsnl hx of TIA (TIA), and c ereb infrc w/o resid deficits Assessments Date Code Description Provider 05/26/2020 G89.29 Other chronic pain Loco Brumfield 05/26/2020 J44.9 Chronic obstructive pulmonary di sease, unspecified Kaylene Rain DO 05/26/2020 G25.81 Restless legs syndrome Kaylene juarez DO 05/26/2020 I10 Essential (primary) hypertension Kaylene Rain DO 05/26/2020 N18.30 Chronic kidney disease, stage 3 unspecified Kaylene Rain,DO 05/26/2020 M06.4 Inflammatory polyarthropathy Humphrey ra Koffi,DO 05/26/2020 I25.5 Ischemic cardiomyopathy Kaylene Stacy ggs,DO 05/26/2020 D50.9 Iron deficiency anemia, unspecif ied Kaylene Rain,DO 05/26/2020 F17.210 Nicotine dependence, cigarettes, uncomplicated Kaylene Rain,DO 05/26/2020 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 Kaylene Rain, DO 05/26/2020 M79.7 Fibromyalgia Kaylene Rain,DO 05/26/2020 F41.0 Panic disorder [episodic paroxys mal anxiety] Kaylene Rain,DO 05/26/2020 Z86.73 Personal history of transient ischemic attack (TIA), and cerebral infarction without residual deficits Kaylene Rain,DO 05/20/2020 G89.29 Other chronic pain Kaylene Rain,D O 05/20/2020 J44.9 Chronic obstructive pulmonary di sease, unspecified Kaylene Rain,DO 05/20/2020 G25.81 Restless legs syndrome Kaylene Barone gs,DO 05/20/2020 I10 Essential (primary) hypertension Kaylene Rain,DO 04/08/2020 J44.9 Chronic obstructive pulmonary di sease, unspecified Kaylene Rain,DO 04/08/2020 G89.29 Other chronic pain Kaylene Rain,D O 04/08/2020 G25.81 Restless legs syndrome Kaylene Barone gs,DO 04/08/2020 I10 Essential (primary) hypertension Kaylene Rian,DO 03/13/2020 N18.3 Chronic kidney disease, stage 3 (moderate) Kaylene Rain,DO 03/13/2020 N18.3 Chronic kidney disease, stage 3 (moderate) Lab Schedule 01/31/2020 J44.9 Chronic obstructive pulmonary di sease, unspecified Kaylene Rain,DO 01/31/2020 G89.29 Other chronic pain Kaylene Rain,D O 01/31/2020 N18.3 Chronic kidney disease, stage 3 (moderate) Kaylene Rain,DO 01/31/2020 G25.81 Restless legs syndrome Kaylene Barone gs,DO 01/24/2020 M25.50 Pain in unspecified joint Kaylene Rain,DO 01/24/2020 M25.50 Pain in unspecified joint Lab Md stephon Plan of Treatment Future Appointment(s):* 11/23/2020 1:00 pm - Kaylene Rain DO at [facility] 05/26/2020 - Kaylene Rain DO* G89.29 Other chronic pain * J44.9 Chronic obstructive pulmonary disease, unspecified* Comments:* using inhalers as prescribed and has not had to use rescue inhaler. 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 * M79.7 Fibromyalgia * F41.0 Panic disorder [episodic paroxysmal anxiety] * Z86.73 Personal history of transient ischemic attack (TIA), and cerebral infarction without residual deficits * All * New Medication:* Mirapex 1 mg - take 2 tablet by mouth at night before bedtime Functional Status Description No Information Available Mental Status Description No Information Available Referrals Refer to Reason for Referral Status Appt Date [facility] Chest CT Screening Program CT EARLY CANCER LUNG SCREENING EX AM Sent [address] [place] [address] [phone] [facility] Hematology/Oncology CLIENT CARE REPRESENTATIVE CONSULT FOR POSSIBLE OCCULT JAYME FONTANA Patient Notified 03/24/2020 [address] [place] [address] [phone]
--- OUTSIDE RECORDS SUMMARY | 2020-07-20 12:24 | CCD ---
Author Author [facility] Organization [facility] Address Unknown Phone Unavailable Care Team Providers Care School Traffic Supervisor Name Role Phone Alexandra Pang Unavailable PROBLEMS Type Condition ICD9-CM Code [id number] Code Onset Dates Condition S tatus SNOMED Code Notes Problem Vasculitis I77.6 Active 63935777 Problem Lumbar spondylosis M47.816 Active 543057164 Problem Fibromyalgia M79.7 Active 514225754 ALLERGIES No Known Allergies ENCOUNTERS from 1945 to 2020-07-02 Encounter Location Date Provider Diagnosis [facility] Rheumatology [address] [place] [address] Jun, Alexandra Pang Vasculitis I77.6 ; Proteinuria, unspecif ied type R80.9 ; Rheumatoid factor positive R76.8 and Fibromyalgia M79.7 IMMUNIZATIONS No Information SOCIAL HISTORY Tobacco Use: Social History Observation Description Date Details (start date - stop date) Current Smoker Sex Assigned At : Social History Observation Description Sex Assigned At Unknown Alcohol Screening: Question Answer Notes Did you have a drink containing alcohol in the past year? No Points 0 Interpretation Negative Tobacco Use: Question Answer Notes Are you a: current smoker How many cigarettes a day do you smoke? 5 or less REASON FOR REFERRAL No Information VITAL SIGNS Weight 162.8 lbs Jun, Weight-kg 73.8 kg Jun, Height 64 in Jun, BMI 27.94 kg/m2 Jun, Heart Rate 105 /min Jun, Respiratory Rate 20 /min Jun, Temperature 97.2 degrees Fahrenheit Jun, Oximetry 99% Jun, Blood pressure systolic 128 mm Hg Jun, Blood pressure diastolic 68 mm Hg Jun, MEDICATIONS Medication SIG (Take, Route, Frequency, Duration) Notes Start Da te End Date Status Triamcinolone Acetonide 0.1 % 1 application Externally Twice a day to legs ( avoid biopsy site) for 14 days May, A ctive Nitrostat 0.4 MG as directed Sublingual Active Metoprolol Tartrate 25 MG 1 tablet with food Orally Twice a day for 30 day(s) Active Zovirax 5 % 1 application every 3 hours Externally Six times a day Active Losartan Potassium 50 MG 1 tablet Orally Once a day for 30 day(s) Active Furosemide 20 MG 1 tablet Orally Once a day for 30 day(s) Active Ventolin HFA 108 (90 Base) MCG/ACT 1 puff as needed Inhalation ever y 4 hrs Active Ferrous Gluconate 324 (38 Fe) MG 1 tablet with water o r juice between meals Orally Once a day for 30 day(s) Active Symbicort 160-4.5 MCG/ACT 2 puffs Inhalation Twice a day Active Fluticasone Propionate 50 MCG/ACT 1 spray in each nost ril Nasally Once a day for 30 day(s) Active Colace 100 MG 1 capsule as needed Orally Once a day for 30 day(s) Active Alprazolam 0.5 MG 1 tablet Orally Twice a day Active RA Aspirin Adult Low Strength 81 MG 1 tablet Orally Once a day f or 30 day(s) Active Plavix 75 MG 1 tablet Orally Once a day for 30 day(s) Active Duloxetine HCl 60 MG 1 capsule Orally Once a day for 30 day(s) Active Levocetirizine Dihydrochloride 5 MG 1 tablet in the evening Oral ly Once a day Active Singulair 10 MG 1 tablet Orally Once a day for 30 day(s) Active Pantoprazole Sodium 40 MG 1 tablet Orally Once a day for 30 day(s) Active Famotidine 40 MG/5ML as directed Orally Active Gabapentin 300 MG 1 capsule Orally Once a day for 30 day(s) Active Atorvastatin Calcium 80 MG 1 tablet Orally Once a day for 30 day(s) Active Mometasone Furoate 0.1 % 1 application Externally Once a day Active Tramadol HCl 50 MG 1 tablet as needed Orally Once a day Active Triamcinolone Acetonide 0.1 % 1 application Externally Twice a day for Two weeks May, Active PROCEDURES No Information RESULTS No Results REASON FOR VISIT 2-3 weeks MEDICAL (GENERAL) HISTORY Type Description Date Medical History Acute Bronchitis Medical History Chronic Pain Medical History Chronic Obstructive Lung Disease Medical History Restless Leg Syndrome Medical History Fibromyalgia Medical History Orthostatic Hypotension Medical History shingles Medical History biopsy Medical History stroke Medical History MRA Medical History mamogram Medical History coronary stint Medical History diverticulitis Surgical History hysterectomy Surgical History Hyterectomy 1982 Surgical History heart valve stint 2007 Surgical History tonsillectomy Surgical History angiogram Surgical History "stomach reconstruction" Surgical History stent placement Hospitalization History stent placement 2019 Goals Section No Information Health Concerns No Information MEDICAL EQUIPMENT No Information MENTAL STATUS No Information FUNCTIONAL STATUS No Information ASSESSMENTS Encounter Date Diagnosis Assessment Notes Treatment Notes Treatm ent Clinical Notes Jun, Vasculitis (ICD-10 - I77.6) I continue to be concerned that this patient has a significant autoimmune disorder as evidenced by the elevated ESR and CRP, elevated IgG4 level, positive rheumatoid factor, proteinuria, and abnormal findings on physical exam at the lower extremities. Her skin biopsy did not show vasculitis which is surprising to me given that the rash appears inflammatory and started in conjunction with significant lower extremity pain. I'm going to refer her back to dermatology for further evaluation of the skin findings. She had repeat nerve conduction studies, per her report they were unremarkable but we need to get a formal report. If the nerve conduction studies were normal, there may be no utility in getting a lower extremity muscle or nerve biopsy. Given her increased creatinine, she is not a candidate for CT angiogram of the abdomen or pelvis to look for vasculitis. A catheter-based study may be a consideration per radiology. Before contemplating that, I would like to refer her to nephrology for consideration of her renal biopsy. I also discussed empiric treatment with the patient, but I don't favor treatment without a specific diagnosis being made. She will follow-up in mid July with lab before. Jun, Proteinuria, unspecified type (ICD-10 - R80.9) She has an elevated creatinine and proteinuria, I'm referring her to nephrology to consider a renal biopsy. This may be helpful in making a diagnosis which would help guide treatment. Jun, Rheumatoid factor positive (ICD-10 - R76.8) Rheumatoid factor is positive but I see no evidence that she has rheumatoid arthritis. I believe this is simply an indication that the immune system is activated. Jun, Fibromyalgia (ICD-10 - M79.7) She has a long-standing history of chronic pain secondary to fibromyalgia. This is separate and different than her current symptoms. Jun, Other Patient instructions: Staff : Please refer CHEIKH/urgent to nephrology : Patient has half gram of proteinuria and elevated creatinine 1.6-1.9, she has evidence of systemic vasculitis, I'm trying to make a diagnosis and wonder if renal biopsy would be helpful. She needs another follow up with Brigida Gonzalez in Dermatology - please facilitate that Please get nerve conduction studies when they are complete from Neurology office Follow up third week of July with lab before PLAN OF TREATMENT Treatment Notes Assessment Notes Clinical Notes Vasculitis I continue to be concerned t hat this patient has a significant autoimmune disorder as evidenced by the elevated ESR and CRP, elevated IgG4 level, positive rheumatoid factor, proteinuria, and abnormal findings on physical exam at the lower extremities.Her skin biopsy did not show vasculitis which is surprising to me given that the rash appears inflammatory and started in conjunction with significant lower extremity pain.I'm going to refer her back to dermatology for further evaluation of the skin findings.She had repeat nerve conduction studies, per her report they were unremarkable but we need to get a formal report.If the nerve conduction studies were normal, there may be no utility in getting a lower extremity muscle or nerve biopsy.Given her increased creatinine, she is not a candidate for CT angiogram of the abdomen or pelvis to look for vasculitis.A catheter-based study may be a consideration per radiology.Before contemplating that, I would like to refer her to nephrology for consideration of her renal biopsy.I also discussed empiric treatment with the patient, but I don't favor treatment without a specific diagnosis being made.She will follow-up in mid July with lab before. Proteinuria, unspecified type She has an elevated crea tinine and proteinuria, I'm referring her to nephrology to consider a renal biopsy.This may be helpful in making a diagnosis which would help guide treatment. Rheumatoid factor positive Rheumatoid factor is positi ve but I see no evidence that she has rheumatoid arthritis. I believe this is simply an indication that the immune system is activated. Fibromyalgia She has a long-standing hist ory of chronic pain secondary to fibromyalgia. This is separate and different than her current symptoms. Future Test Test Name Order Date Comprehensive Metabolic Profile (CMP) [id number] ERYTHROCYTE SEDIMENTATION RATE [id number] C REACTIVE PROTEIN QUANTITATIV (At [facility]) [id number] CBC with Differential [id number] TOTAL PROTEIN,RANDOM URINE [id number] CREATININE,RANDOM URINE [id number] COMPLEMENT C3 [id number] COMPLEMENT C4 [id number] Next Appt Details july Reason: Provider Name:Alexandra Pang, 2020-07 01:00:00 PM, [address] [place], [address], Provider Name:Brigida Gonzalez, 2020-07-23 09:00:00 AM, [facility] [place], [address], Insurance Providers Payer Name Payer Address Payer Phone Insured Name Patient Relati onship to Insured Coverage Start Date Coverage End Date MEDICAID [employer] [address] [facility] [address] MAHESH AQUINO self MEDICARE Part A and B [address] [facility] [id number] MAHESH AQUINO self
--- OUTSIDE RECORDS SUMMARY | 2020-07-20 12:24 | CCD | Continuity of Care Document ---
Author Author Carrie ARRIAZA PA Organization Unknown Address [address] [place] [address] Phone [phone] Care Team Providers Care Director Of Ancillary Services Name Role Phone Kaylene Rain DO AUTM [phone] Maximo Rodriguez MD Unavailable Problems Active Problems Provider Date Acute gingivitis Onset: 04/07/2017 Atypical chest pain Onset: 12/19/2018 Bronchitis Onset: 05/27/2017 Chronic low back pain Onset: 01/05/2019 Cough Onset: 05/27/2017 Dehydration Onset: 12/19/2018 Sequela of cerebrovascular accident Onse t: 12/15/2016 Left against medical advice Onset: 03/14 Myocardial infarction Onset: 12/30/2017 Postoperative pain Onset: 04/07/2017 Right hemiparesis Onset: 08/23/2016 Essential hypertension ТАТЬЯНА Davalos Onset: 06/14/2019 Social History Type Date Description Comments Sex Unknown ETOH Use Denies alcohol use Tobacco Use Start: Unknown Patient is a current smoker, smo kes every day 5 cigs per day Smoking Status Reviewed: 06/13/19 Patient is a current smoker, smokes every day 5 cigs per day Allergies, Adverse Reactions, Alerts Description No Known Drug Allergies Medications Active Medications SIG Qnty Indications Ordering Provide r Date Tramadol HCL 50mg Tablets take 1 tablet by mouth twice daily for pain 10tabs D. Abilio Acosta MD 04/08/2020 Tylenol With Codeine #4 300-60mg T ablets take 1 tablet by mouth dialy, as needed for pain 4tabs S32.040A Alin Mar MD 12/02/2019 Gabapentin 300mg Capsules Once Daily As Needed as needed for Pain Unknown Metoprolol Tartrate 25mg Tablets Daily Unknown Protonix 20mg Tablets DR 1 by mouth every day Unknown Mirapex 0.5mg Tablets 1/2 tab by mouth every night Unknown Zantac 75 75mg Tablets 2 by mouth twice a day Unknown Aspirin 81mg Tablets DR 1 by mouth every day Unknown Plavix 75mg Tablets 1 by mouth every day Unknown Lipitor 10mg Tablets Unknown Immunizations Description No Information Available Vital Signs Date Vital Result Comment 06/18/2020 11:54am Body Temperature 96.4 F 05/20/2020 5:42pm Body Temperature 96.0 F Results Description No Information Available Procedures Date Code Description Status 06/18/2020 60442 X-Ray Spine Lumbosacral Ap & Lat eral 2-3 Views Completed 01/28/2020 13609 X-Ray Spine Lumbosacral Ap & Lat eral 2-3 Views Completed Medical Devices Description No Information Available Encounters Type Date Location Provider Dx Diagnosis Office Visit 06/18/2020 10:45a [place] ТАТЬЯНА Davalos S32.040D Wedge comprsn fx fourth lum vert, subs for fx w routn heal M51.36 Other intervertebral disc de generation, lumbar region M47.896 Other spondylosis, lumbar re gion M16.0 Bilateral primary osteoarthr itis of hip Office Visit 04/28/2020 3:15p [place] ТАТЬЯНА Davalos M54.5 Low back pain M16.0 Bilateral primary osteoarthr itis of hip M70.61 Trochanteric bursitis, right hip M70.62 Trochanteric bursitis, left hip S32.040S Wedge compression fracture o f fourth lum vertebra, sequela Assessments Date Code Description Provider 06/18/2020 S32.040D Wedge compression fr acture of fourth lumbar vertebra, subsequent encounter for fracture with routine healing ТАТЬЯНА Davalos 06/18/2020 M51.36 Other intervertebral disc degene ration, lumbar region ТАТЬЯНА Davalos 06/18/2020 M47.896 Other spondylosis, lumbar region ТАТЬЯНА Davalos 06/18/2020 M16.0 Bilateral primary osteoarthritis of hip Sha IRonny Sofiya, PA 05/20/2020 M51.36 Other intervertebral disc degene ration, lumbar region Sha I. Sofiya, PA 05/20/2020 M47.896 Other spondylosis, lumbar region Sha I. Sofiya, PA 05/20/2020 M16.0 Bilateral primary osteoarthritis of hip Sha I. Sherlynek, PA 05/20/2020 M70.61 Trochanteric bursitis, right hip Sha I. Sherlynek, PA 05/20/2020 M70.62 Trochanteric bursitis, left hip Sha I. Sherlynek, PA 05/20/2020 S32.040S Wedge compression fr acture of fourth lumbar vertebra, sequela Sha IRonny Arriaza, PA 04/28/2020 M54.5 Low back pain Sha MiriamRonny Arriaza, PA 04/28/2020 M16.0 Bilateral primary osteoarthritis of hip Sha I. Sofiya, PA 04/28/2020 M70.61 Trochanteric bursitis, right hip Sha I. Sherlynek, PA 04/28/2020 M70.62 Trochanteric bursitis, left hip Sha I. Sherlynek, PA 04/28/2020 S32.040S Wedge compression fr acture of fourth lumbar vertebra, sequela Sha IRonny Arriaza, PA 03/04/2020 S32.040D Wedge compression fr acture of fourth lumbar vertebra, subsequent encounter for fracture with routine healing Sha IRonny Arriaza, PA 03/04/2020 M16.0 Bilateral primary osteoarthritis of hip Sha I. Sherlynek, PA 03/04/2020 M70.61 Trochanteric bursitis, right hip Sha I. Sofiya, PA 03/04/2020 M70.62 Trochanteric bursitis, left hip Sha I. Sofiya, PA 03/04/2020 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, lumbar region Sha IRonny Arriaza, PA 03/04/2020 M51.36 Other intervertebral disc degene ration, lumbar region Sha IRonny Arriaza, PA 02/27/2020 S32.040D Wedge compression fr acture of fourth lumbar vertebra, subsequent encounter for fracture with routine healing Sha I. Sherly[place], PA 01/28/2020 S32.040D Wedge compression fr acture of fourth lumbar vertebra, subsequent encounter for fracture with routine healing ТАТЬЯНА Davalos 01/28/2020 R10.31 Right lower quadrant pain ТАТЬЯНА Rojas 01/28/2020 R10.32 Left lower quadrant pain ТАТЬЯНА Davalos Plan of Treatment 06/18/2020 - ТАТЬЯНА Davalos* S32.040D Wedge compression fracture of fourth lumbar vertebra, subsequent encounter for fracture with routine healing * M51.36 Other intervertebral disc degeneration, lumbar region* Follow up:* prn * M47.896 Other spondylosis, lumbar region * M16.0 Bilateral primary osteoarthritis of hip Functional Status Description No Information Available Mental Status Description No Information Available Referrals Refer to Dr Reason for Referral Status Appt Date Sha Arriaza [facility] Create d [address] [place] [phone] Sha Arriaza Pac PT BASED ON MED. [facility] TO PT DEPT. NT Closed [address] [place] [phone]
--- OUTSIDE RECORDS SUMMARY | 2020-07-20 12:24 | CCD | Continuity of Care Document ---
Author Author Carrie TAN M.D. Organization Unknown Address [address] [place] [id number] Phone [phone] Care Team Providers Care Risk Officer Name Role Phone Kaylene Rain D.O. AUTM [phone] Problems Active Problems Provider Date Insomnia Cruzito Tan M.D. Onset: 03/14/2014 Ischemic stroke Cruzito Tan M.D. Onset: 03/14/2014 Syncope Cruzito Tan M.D. Onset: 03/14/2014 Chronic back pain Cruzito Tan M.D. Onset: 03/14/2014 Restless legs Cruzito Tan M.D. Onset: 08/18/2015 Disorders of initiating and maintaining sleep Estiven Oleary Onset: 08/18/2015 Obstructive sleep apnea syndrome Cruzito Tan M.D. Onset: 08/18/2015 Low back pain Cruzito Tan M.D. 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 Onset: 09/28/2016 Spondylolysis Cruzito Tan M.D. Onset: 03/31/2017 Lumbar radiculopathy Cruzito Tan M.D. Onset: 03/31/2017 Pain in right lower limb Cruzito Tan M.D. Onset: 07/20/19 18 History of cerebrovascular accident without residual deficit s Cruzito Tan M.D. Onset: 10/24/2018 Nervous system symptoms Cruzito Tan M.D. Onset: 0 Abnormal gait Cruzito Tan M.D. Onset: 10/30/2019 Spondylolysis of cervical spine Cruzito Tan M.D. Onset: 0 11/06/2019 Neck pain Cruzito Tan M.D. Onset: 11/06/2019 Social History Type Date Description Comments Sex Unknown ETOH Use Denies alcohol use Tobacco Use Start: Unknown Light tobacco smoker (10 or fewe r cigarettes/day) Recreational Drug Use Never Used Drugs Allergies, Adverse Reactions, Alerts Description No Known Drug Allergies Medications Active Medications SIG Qnty Indications Ordering Provide r Date Hydrocodone Bitartrate/Acetaminophen 5-325mg Tablets 1 po bid prn for back and hip pain. 14taarjun Tan M.D. 11/27/2019 Quetiapine Fumarate 25mg Tablets take one tablet by mouth at bedtime 90taarjun Tan M.D. 06/02 Gabapentin 300mg Capsules take one capsule by mouth twice a day 180captuyet Tan M.D. 03/20/2019 Clopidogrel Bisulfate 75mg Tablets take 1 tablet by mouth once daily 90sly Tan M.D. 09/01 Pramipexole Dihydrochloride 1mg Ta blets take 1 tablet by mouth once daily at bedtime maximum daily dose = 1 90sly Tan M.D. 12/10/2013 Immunizations Description No Information Available Vital Signs Date Vital Result Comment 08/18/2015 12:38pm BP Systolic 125 mmHg BP Diastolic 80 mmHg Heart Rate 72 /min Respiratory Rate 16 /min Height 65 inches 5'5" Weight 168.00 lb BMI (Body Mass Index) 28.0 kg/m2 [place] Body Weight 125 lb 11/05/2014 12:46pm BP Systolic 120 mmHg BP Diastolic 80 mmHg Heart Rate 74 /min Respiratory Rate 16 /min Height 64 inches 5'4" Weight 135.00 lb BMI (Body Mass Index) 23.2 kg/m2 [place] Body Weight 120 lb Results Description No Information Available Procedures Date Code Description Status 06/15/2020 73778 Nerve Conduction 11-12 Studies C ompleted 06/15/2020 87625 Needle Electromyography Complete , Five Or More Muscles Studied Completed 06/15/2020 90502 Needle Electromyography Complete , Five Or More Muscles Studied Completed Medical Devices Description No Information Available Encounters Type Date Location Provider Dx Diagnosis Office Visit 07/01/2020 2:45p Main office - [place] Estiven Oleary M79.604 Pain in right leg R29.6 Repeated falls R26.81 Unsteadiness on feet M54.5 Low back pain M43.06 Spondylolysis, lumbar region M54.16 Radiculopathy, lumbar region G25.81 Restless legs syndrome I63.031 Cerebral infrc due to thromb osis of right carotid artery M43.02 Spondylolysis, cervical peter on M54.2 Cervicalgia I63.032 Cerebral infarction due to t hrombosis of left carotid artery Office Visit 01/28/2020 2:00p Main office - [place] Estiven Oleary R29.6 Repeated falls R26.81 Unsteadiness on feet M54.5 Low back pain M43.06 Spondylolysis, lumbar region M54.16 Radiculopathy, lumbar region G25.81 Restless legs syndrome I63.031 Cerebral infrc due to thromb osis of right carotid artery M43.02 Spondylolysis, cervical peter on M54.2 Cervicalgia I63.032 Cerebral infarction due to t hrombosis of left carotid artery F51.01 Primary insomnia Assessments Date Code Description Provider 07/01/2020 M79.604 Pain in right leg Estiven Oleary 07/01/2020 R29.6 Repeated falls Cruzito Tan M.D. 07/01/2020 R26.81 Unsteadiness on feet Cruzito Tan M.D. 07/01/2020 M54.5 Low back pain Cruzito Tan M.D. 07/01/2020 M43.06 Spondylolysis, lumbar region Gunnar Tan M.D. 07/01/2020 M54.16 Radiculopathy, lumbar region Gunnar Tan M.D. 07/01/2020 G25.81 Restless legs syndrome Cruzito St i, M.D. 07/01/2020 I63.031 Cerebral infarction due to thrombosis of right carotid artery Cruzito Tan M.D. 07/01/2020 M43.02 Spondylolysis, cervical region M brayan Tan M.D. 07/01/2020 M54.2 Cervicalgia Cruzito Tan M.D. 07/01/2020 I63.032 Cerebral infarction due to throm bosis of left carotid artery Cruzito Tan M.D. 06/15/2020 M79.606 Pain in leg, unspecified Cruzito Tan M.D. 06/15/2020 M54.89 Other dorsalgia Cruzito Tan M.D. 06/15/2020 M79.604 Pain in right leg Estiven Oleary 06/15/2020 M79.605 Pain in left leg Kristen Oleary 01/28/2020 R29.6 Repeated falls Cruzito Tan M.D. 01/28/2020 R26.81 Unsteadiness on feet Cruzito Tan M.D. 01/28/2020 M54.5 Low back pain Cruzito Tan M.D. 01/28/2020 M43.06 Spondylolysis, lumbar region Gunnar Tan M.D. 01/28/2020 M54.16 Radiculopathy, lumbar region Gunnar Tan M.D. 01/28/2020 G25.81 Restless legs syndrome Cruzito St i, M.D. 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 01/28/2020 M43.02 Spondylolysis, cervical region M brayan Tan M.D. 01/28/2020 M54.2 Cervicalgia Cruzito Tan M.D. 01/28/2020 I63.032 Cerebral infarction due to throm bosis of left carotid artery Cruzito Tan M.D. 01/28/2020 F51.01 Primary insomnia Kristen Oleary Plan of Treatment Future Appointment(s):* 11/25/2020 11:00 am - Cruzito Tan M.D. at Main office - [place] Functional Status Description No Information Available Mental Status Description No Information Available Referrals Refer to Dr Reason for Referral Status Appt Date Cruzito Tan M.D. Created [facility] [address] [place] [address] [phone] Cruzito Tan M.D. Created [facility] [address] [place] [address] [phone]
--- OUTSIDE RECORDS SUMMARY | 2020-07-20 12:24 | CCD | Continuity of Care Document ---
Author Organization Unknown Address Unknown Phone Unavailable Care Team Providers Care Grader Marker Name Role Phone Gui Pineda MD AUTM [phone] Kaylene Rain DO AUTM Unavailable Cruzito Tan MD AUTM [phone] [facility] AUTM [phone] Problems Active Problems Provider Date Acute bronchitis [...] by mouth every day 90tabs Kaylene Rain,DO 09/23/2019 Amlodipine Besylate 5mg Tablets 1 by mouth daily 30tabs Kaylene Rain,DO 09/17/2019 Famotidine 40mg Tablets Take One Tablet By Mouth Every Day 30tabs Kaylene Rain,DO 07/23/2019 Ferrous Gluconate 324(37.5Fe) mg T ablets 1 by mouth every day 30tabs Kaylene Rain,DO 12/26/2018 Fluticasone Propionate 50mcg/Act Suspension [place] 2 Sprays In Each Nostril Every Morning as Needed 16units Dasia Garcia,ELECTRICAL PLUMBING SUPERVISOR 12/13/2018 Mometasone Furoate 0.1% Cream Apply To [...] By Mouth Every Day 30tabs Dia Newsome, ELECTRICAL PLUMBING SUPERVISOR 0 01/06/2016 Duloxetine HCL 60mg Caps DR [...] H/L Range Note Laboratory test finding 07/10/[address] [id number] [phone] Creatinine,Random Urine 341.0 mg/dL Normal 1 Total Protein,Random Urine 198.0 mg/dL High 0.0-12.0 2 CBC With Differential 07/10/[address] [id number] [phone] White Blood Count 11.3 10 High 4.0-10.0 [...] 36.0-66.0 Lymph % 18.6 % Low 24.0-44.0 Roosevelt % 9.1 % High 0.0-5.0 Eos % 10.2 % High 0.0-3.0 Baso % 0.5 % Normal 0.0-1.0 Immature Granulocyte % 0.4 % Normal 0-3.0 Nucleated Red Blood Cell % 0.0 % Normal 0-0 Neutrophils # 6.9 10 Normal 1.5-8.5 Lymph # 2.1 10 Normal 1.5-5.0 Roosevelt # 1.0 10 High 0.0-0.8 Eos # 1.2 10 High 0.0-0.5 Baso # 0.1 10 Normal 0.0-0.2 Laboratory test finding 07/10/[address] [address] [phone] Erythrocyte Sedimentation Rate 79 mm/hr High 0 -30 Comprehensive Metabolic Profil 07/10/[address] [id number] [phone] Glucose, Fasting 110 mg/dL High 70-100 Blood [...] 0.7 Low 1.2-2.2 Laboratory test finding 07/10/2020 [facility] [address] [place] [address] [phone] Complement C3 139 mg/dL Normal 90-180 4 Complement C4 29 mg/dL Normal 10-40 5 C Reactive Protein Quantitativ 2.83 mg/dL High 0.00-0.30 6 Complete Blood Count 05/26/2020 [place] [employer] Attendant: [place] [address] [phone] WBC 11.9 x10*3/UL High 4.1 - 10.9 [...] 2.0 - 7.8 Comprehensive Chem Profile 05/26/2020 [place] [facility] [employer] Attendant: [place] [address] [phone] Glucose 117 mg/dL High 74 - 99 [...] Low >60 8 CBC With Differential 04/29/[address] [id number] [phone] White Blood Count 12.1 10 High 4.0-10.0 [...] 36.0-66.0 Lymph % 22.4 % Low 24.0-44.0 Roosevelt % 7.9 % High 0.0-5.0 Eos % 6.0 % High 0.0-3.0 Baso % 0.7 % Normal 0.0-1.0 Immature Granulocyte % 0.3 % Normal 0-3.0 Nucleated Red Blood Cell % 0.0 % Normal 0-0 Neutrophils # 7.6 10 Normal 1.5-8.5 Lymph # 2.7 10 Normal 1.5-5.0 Roosevelt # 1.0 10 High 0.0-0.8 Eos # 0.7 10 High 0.0-0.5 Baso # 0.1 10 Normal 0.0-0.2 Comprehensive Metabolic Profil 04/29/[address] [address] [phone] Glucose, Fasting 86 mg/dL Normal 70-100 Blood [...] 0.8 Low 1.2-2.2 Laboratory test finding 04/29/[address] [address] [phone] Carcinoembryonic Antigen 4.0 NG/ML High <2.5 10 Laboratory test finding 03/13/[address] [address] [phone] Phospholipids Level 151 mg/dL Normal 150-250 1 1 Serum Protein Electrophoresis 03/13/[address] [address] [phone] Albumin % 53.1 % Low 55.8-66.1 Lgmfc-8-Dexyofji % 5.2 % High 2.9-4.9 Uxywo-4-Qwfltctqw % 14.0 % High 7.1-11.8 Pbvm-8-Cmxjqtame % 7.2 % Normal 4.7-7.2 Lbsl-4-Bevvnzrje % 6.6 % High 3.2-6.5 Gamma Globulin % 13.9 % Normal 11.1-18.8 Albumin 3.66 GM/DL Normal 3.29-5.55 Rsgie-5-Knmlbnrxz 0.36 GM/DL Normal 0.17-0.41 Ozcqu-7-Bhowkamtf 0.97 GM/DL Normal 0.42-0.99 Yslw-2-Lenrqyhxv 0.50 GM/DL Normal 0.28-0.60 Qaxd-5-Ohayyhvzq 0.46 GM/DL Normal 0.19-0.55 Gamma Globulins 0.96 GM/DL Normal 0.65-1.58 Total Protein 6.9 GM/DL Normal 6.4-8.2 Spep Interpretation SEE COMMENT Normal 12 Spep Pathologist Review REV'D BY O ADJAP <SEE NOTE> Normal 13 Anti-Neutrophil Cytoplasmic AB 03/13/2020 [place] [id number] [phone] Cytoplasmic Neutrop AB Anca-C <1:20 titer Normal N eg:<1:20 Perinuclear AB Anca-P <1:20 titer Normal Neg:<1:20 14 Anca-Atypical <1:20 titer Normal Neg:<1:20 15 Laboratory test finding 03/13/2020 [place] [employer] Attendant: [place] [address] [phone] Sed Rate 41 mm/hr High 0 - 15 PT & Aptt 02/01/2020 [facility] nter [address] [place] [address] [phone] Prothrombin Time 13.2 seconds Normal 11.8-14.0 Inr 0.99 Normal 16 Partial Thromboplastin Time 30.2 seconds Normal 25.0-38.4 CBC With Differential 02/01/[address] [address] [phone] White Blood Count 9.8 10 Normal 4.0-10.0 [...] 36.0-66.0 Lymph % 28.3 % Normal 24.0-44.0 Roosevelt % 8.8 % High 0.0-5.0 Eos % 5.8 % High 0.0-3.0 Baso % 0.7 % Normal 0.0-1.0 Immature Granulocyte % 0.3 % Normal 0-3.0 Nucleated Red Blood Cell % 0.0 % Normal 0-0 Neutrophils # 5.5 10 Normal 1.5-8.5 Lymph # 2.8 10 Normal 1.5-5.0 Roosevelt # 0.9 10 High 0.0-0.8 Eos # 0.6 10 High 0.0-0.5 Baso # 0.1 10 Normal 0.0-0.2 Cardiac Injury Profile 02/01/[address] [address] [phone] CPK Creatine Phosphokinase 60 U/L Normal 26-19 2 CK-MB Value Mass < 1.0 NG/ML Normal <3.6 MB/CK Relative Index 1.67 Normal < Or =4 17 Liver Profile 02/01/2020 [facility] nter [address] [place] [address] [phone] Ast/Sgot 11 U/L Normal 7-37 Alt/SGPT 11 U/L Low 12-78 Alkaline Phosphatase 101 U/L Normal 45-117 Bilirubin,Total 0.1 mg/dL Low 0.2-1.0 Bilirubin,Direct < 0.1 mg/dL Normal 0.0-0.2 Total Protein 7.0 GM/DL Normal 6.4-8.2 Albumin 3.0 GM/DL Low 3.2-5.2 Albumin/Globulin Ratio 0.8 Low 1.2-2.2 Basic Metabolic Profile 02/01/[address] [address] [phone] Glucose, Fasting 103 mg/dL High 70-100 Blood [...] mg/dL Low 8.8-10.2 Laboratory test finding 02/01/2020 [facility] [address] [place], [place] 8632991 [phone] Troponin I < 0.02 NG/ML Normal < 0.10 19 Lipase 80 U/L Normal 73-393 Thyroid Stimulating Hormone 0.753 uIU/ML Normal 0.358-3.740 Free T4 0.90 ng/dL Normal 0.76-1.46 Laboratory test finding 01/24/2020 [place] [employer] Attendant: [place] [address] [phone] Sed Rate 54 mm/hr High 0 - 15 1 note:<nlbl:demographic_chang ed> 2 note:<nlbl:demographic_chang ed> 3 Units are mL/min/1.73 m2 Chronic Kidney Disease Staging per NKF: Stage I & II GFR >=60 Normal to Mildly Decreased Stage III GFR 30-59 Moderately Decreased Stage IV GFR 15-29 Severely Decreased Stage V GFR <15 Very Little GFR Left ESRD GFR <15 on GLASS EMBOSSER 4 note:<nlbl:demographic_chang ed> 5 note:<nlbl:demographic_chang ed> 6 note:<nlbl:demographic_chang ed> 7 100-125 mg/dL PRE-DIABET ES/FASTING >126 mg/dL DIABETES/FASTING 8 CHRONIC KIDNEY DISEASE STAGI NG PER NKF STAGE I & II GFR >= 60 NORMAL TO MILDLY DECREASED STAGE III GFR 30-59 MODERATELY DECREASED STAGE IV GFR 15-29 SEVERELY DECREASED STAGE V GFR <15 VERY LITTLE GFR LEFT ESRD GFR <15 ON GLASS EMBOSSER 9 Units are mL/min/1.73 m2 Chronic Kidney Disease Staging per NKF: Stage I & II GFR >=60 Normal to Mildly Decreased Stage III GFR 30-59 Moderately Decreased Stage IV GFR 15-29 Severely Decreased Stage V GFR <15 Very Little GFR Left ESRD GFR <15 on GLASS EMBOSSER 10 THE CEA ASSAY IS PERFORMED O N THE [employer] NetworksAUR BY CHEMILUMINESCENCE AND SHOULD NOT BE COMPARED INTERCHANGEABLY WITH OTHER METHODS. IT SHOULD NOT BE USED ALONE A SCREENING TEST OR DIAGNOSIS FOR THE PRESENCE OR ABSENCE OF MALIGNANT DISEASE. PREDICTIONS OF DISEASE RECURRENCE SHOULD NOT BE BASED SOLELY ON VALUES OBTAINED FROM SERIAL PATIENT SERUM VALUES. 11 Results for this test are fo r research purposes only by the assay's irrigationist designer. The performance characteristics of this product have not been established. Results should not be used as a diagnostic procedure without confirmation of the diagnosis by another medically established diagnostic product or procedure. Performed at: [address] [id number] [employer] Attendant: Trevin Hardin MD, Phone: [phone] 12 NO M-SPIKE(S)NOTED. 13 REV'D BY Samaria OLIVARES 14 The presence of positive flu orescence exhibiting P-ANCA or C-ANCA patterns alone is not specific for the diagnosis of Carmen's Granulomatosis (WG) or microscopic polyangiitis. Decisions about treatment should not be based solely on ANCA IFA results. The International ANCA Group Consensus recommends follow up testing of positive sera with both NC- 3 and MPO-ANCA enzyme immunoassays. As m [...] Little GFR Left ESRD GFR <15 on GLASS EMBOSSER 19 Troponin I Reference Interva l for [employer] [place] LOCI: 99th Percentile= 0.00-0.045 ng/ml Risk Stratification: <= 0.10 ng/ml Decreased Risk for Adverse Clinical Events. 0.10-1.50 ng/ml Increased Risk for Adv erse Clinical Events. Evaluation of additional criterion and/or repeat testing in 2-6 hours is suggested to rule out myocardial damage. >= 1.50 ng/ml Indicative of Myocardial Injury. Procedures Date Code Description Status 02/25/2020 522817775 Diabetic Retinal Eye Exam Comple bertram 09/13/2018 [id number] Diabetic Retinal Eye Exam Comple bertram 06/22/2018 [id number] Colonoscopy Completed 11/23/2015 [id number] Mammogram Completed 10/24/2014 [id number] Mammogram Completed 11/19/2013 [id number] Colonoscopy Completed 05/15/2012 [id number] Mammogram Completed 01/24/2011 [id number] Mammogram Completed 04/01/2010 [id number] Colonoscopy Completed Medical Devices Description No Information Available Encounters Type Date Location Provider Dx Diagnosis Office Visit 05/26/2020 2:00p [facility] Kaylene aRin DO G89.29 Other chronic pain J44.9 Chronic [...] (TIA), and cerebral infarction without residual deficits Kyalene Rain,DO 05/20/2020 G89.29 Other chronic pain Kayleen Rain,D O 05/20/2020 J44.9 Chronic obstructive pulmonary di sease, unspecified Kaylene Rain,DO 05/20/2020 G25.81 Restless legs syndrome Kaylene Barone gs,DO 05/20/2020 I10 Essential (primary) hypertension Kaylene Rain,DO 04/08/2020 J44.9 Chronic obstructive pulmonary di sease, unspecified Kaylene Rain,DO 04/08/2020 G89.29 Other chronic pain Kaylene Rain,D O 04/08/2020 G25.81 Restless legs syndrome Kaylene Barone gs,DO 04/08/2020 I10 Essential (primary) hypertension Kaylene Rain,DO 03/13/2020 N18.3 Chronic kidney disease, [...] 01/24/2020 M25.50 Pain in unspecified joint Lab Fl stephon Plan of Treatment Future Appointment(s):* 11/23/2020 1:00 pm - Kaylene Rain DO at [facility] 05/26/2020 - Kaylene Rain DO* [...] to Reason for Referral Status Appt Date [facility] Chest CT Screening Program CT EARLY CANCER LUNG SCREENING EX AM Sent [address] [place] [address] [phone] [facility] Hematology/Oncology EQUIPMENT PLANNER CONSULT FOR POSSIBLE OCCULT JAYME FONTANA Patient Notified 03/24/2020 [address] [place] [address] [phone]
--- OUTSIDE RECORDS SUMMARY | 2020-07-20 12:24 | CCD ---
Author Author [facility] Organization [facility] Address Unknown Phone Unavailable Care Team Providers Care Can Pusher Name Role Phone Alexandra Pang Unavailable PROBLEMS Type Condition ICD9-CM Code [id number] Code Onset Dates Condition S tatus SNOMED Code Notes Problem Vasculitis I77.6 Active 37822338 Problem Lumbar spondylosis M47.816 Active 914828843 Problem Fibromyalgia M79.7 Active 743237967 ALLERGIES No Known Allergies ENCOUNTERS from 1945 to 2020-07-15 Encounter Location Date Provider Diagnosis [facility] Rheumatology [address] [place] [address] Jul, Alexandra Pang Vasculitis I77.6 ; Proteinuria, unspecif ied type R80.9 ; 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 and Fibromyalgia M79.7 IMMUNIZATIONS No Information SOCIAL [...] FOR REFERRAL No Information VITAL SIGNS Weight 163.8 lbs Jul, Weight-kg 74.3 kg Jul, Height 64 in Jul, BMI 28.11 kg/m2 Jul, Heart Rate 76 /min Jul, Respiratory Rate 18 /min Jul, Temperature 98.2 degrees Fahrenheit Jul, Oximetry 99% Jul, Blood pressure systolic 128 mm Hg Jul, Blood pressure diastolic 68 mm Hg 11 Jul, 2020 MEDICATIONS Medication SIG (Take, Route, Frequency, Duration) Notes Start Da te End Date Status Colace 100 MG 1 capsule as needed Orally Once a day for 30 day(s) Active Furosemide 20 MG 1 tablet Orally Once a day for 30 day(s) Active Alprazolam 0.5 MG 1 tablet Orally Twice a day Active Pramipexole Dihydrochloride 1 MG TAKE 2 TABLETS BY MERY TH AT NIGHT BEFORE BEDTIME Oral for 30 Active Triamcinolone Acetonide 0.1 % 1 application Externally Twice a day for Two weeks May, Active Famotidine 40 MG/5ML as directed Orally Active Duloxetine HCl 60 MG 1 capsule Orally Once a day for 30 day(s) Active Quetiapine Fumarate 25 MG TAKE ONE TABLET BY MOUTH AT BEDTIME Oral for 90 Active Triamcinolone Acetonide 0.1 % 1 application Externally Twice a day to legs ( avoid biopsy site) for 14 days May, A ctive Gabapentin 300 MG 1 capsule Orally Once a day for 30 day(s) Active Levocetirizine Dihydrochloride 5 MG 1 tablet in the evening Oral ly Once a day Active Plavix 75 MG 1 tablet Orally Once a day for 30 day(s) Active Pantoprazole Sodium 40 MG 1 tablet Orally Once a day for 30 day(s) Active Ferrous Gluconate 324 (38 Fe) MG 1 tablet with water o r juice between meals Orally Once a day for 30 day(s) Active Metoprolol Tartrate 25 MG 1 tablet with food Orally Twice a day for 30 day(s) Active Losartan Potassium 50 MG 1 tablet Orally Once a day for 30 day(s) Active Symbicort 160-4.5 MCG/ACT 2 puffs Inhalation Twice a day Active RA Aspirin Adult Low Strength 81 MG 1 tablet Orally Once a day f or 30 day(s) Active Atorvastatin Calcium 80 MG 1 tablet Orally Once a day for 30 day(s) Active Tramadol HCl 50 MG 1 tablet as needed Orally Once a day Active Ventolin HFA 108 (90 Base) MCG/ACT 1 puff as needed Inhalation ever y 4 hrs Active Nitrostat 0.4 MG as directed Sublingual Active Singulair 10 MG 1 tablet Orally Once a day for 30 day(s) Active Cefuroxime Axetil 500 MG TAKE ONE TABLET BY MOUTH TWI A DAY FOR 10 DAYS Oral for 10 Active Mometasone Furoate 0.1 % 1 application Externally Once a day Active Fluticasone Propionate 50 MCG/ACT 1 spray in each nost ril Nasally Once a day for 30 day(s) Active Albuterol Sulfate HFA 108 (90 Base) MCG/ACT INHALE TWO PUFFS BY MOUTH THREE TIMES A DAY FOR 10 DAYS Inhalation for 33 Active Zovirax 5 % 1 application every 3 hours Externally Six times a day Active PROCEDURES No Information RESULTS No Results REASON FOR VISIT 3 weeks MEDICAL (GENERAL) HISTORY Type Description Date Medical History Acute Bronchitis Medical History Chronic Pain Medical History Chronic Obstructive Lung Disease Medical History Restless Leg Syndrome Medical History Fibromyalgia Medical History Orthostatic Hypotension Medical History shingles Medical History biopsy Medical History stroke Medical History MRA Medical History mamogram Medical History coronary stint Medical History diverticulitis Surgical History hysterectomy Surgical History Hyterectomy 1981 Surgical History heart valve stint 2006 Surgical History tonsillectomy Surgical History angiogram Surgical History "stomach reconstruction" Surgical History stent placement Hospitalization History stent placement 2019 Goals Section No Information Health Concerns No Information MEDICAL EQUIPMENT No Information MENTAL STATUS No Information FUNCTIONAL STATUS No Information ASSESSMENTS Encounter Date Diagnosis Assessment Notes Treatment Notes Treatm ent Clinical Notes Jul, Vasculitis (ICD-10 - I77.6) I believe the clinical picture is most likely consistent with vasculitis including the rash, elevated ESR and CRP, positive rheumatoid factor, elevated IgG4 level, and proteinuria. Most likely she needs treatment with prednisone, possibly rituximab, but I would like to have some biopsy confirmation of disease before initiating treatment. I have referred her to nephrology for possible renal biopsy. Jul, Proteinuria, unspecified type (ICD-10 - R80.9) As above, she has new onset proteinuria, elevated creatinine, I'm referring her to nephrology for CHEIKH consultation. 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 I have referred her back to dermatology for another look at her skin because there is clearly something autoimmune going on with her. I wonder if she would benefit from another biopsy in a slightly different location. Jul, Fibromyalgia (ICD-10 - M79.7) She has a long-standing history of fibromyalgia but this is clearly something different and new. Jul, Other Patient instructions : Call nephrology early next week to inquire about your appointment Keep appointment with Dermatology Follow up with me after you see Dermatology ( first or second week of August ) with lab before PLAN OF TREATMENT Treatment Notes Assessment Notes Clinical Notes Vasculitis I believe the clinical pictu re is most likely consistent with vasculitis including the rash, elevated ESR and CRP, positive rheumatoid factor, elevated IgG4 level, and proteinuria.Most likely she needs treatment with prednisone, possibly rituximab, but I would like to have some biopsy confirmation of disease before initiating treatment.I have referred her to nephrology for possible renal biopsy. Proteinuria, unspecified type As above, she has new on set proteinuria, elevated creatinine, I'm referring her to nephrology for CHEIKH consultation. Livedo reticularis She has a livedoid rash at t he lower extremities, her previous biopsy does not show any autoimmune disease which is very surprising.I have referred her back to dermatology for another look at her skin because there is clearly something autoimmune going on with her.I wonder if she would benefit from another biopsy in a slightly different location. Fibromyalgia She has a long-standing hist ory of fibromyalgia but this is clearly something different and new. Future Test Test Name Order Date QUANTIFERON TB GOLD TEST [id number] IgG SUBCLASS 4 [id number] CBC with Differential [id number] C REACTIVE PROTEIN QUANTITATIV (At [facility]) [id number] Comprehensive Metabolic Profile (CMP) [id number] ERYTHROCYTE SEDIMENTATION RATE [id number] TOTAL PROTEIN,RANDOM URINE [id number] CREATININE,RANDOM URINE [id number] Next Appt Details first or second week of August Reason: Provider Name:Brigida Gonzalez, 2020-08-03 01:15:00 PM, [address] [place], [address], Provider Name:Alexandra Pang, 2020-08 01:00:00 PM, [address] [place], [address], Insurance Providers Payer Name Payer Address Payer Phone Insured Name Patient Relati onship to Insured Coverage Start Date Coverage End Date MEDICARE Part A and B [address] [facility] [phone] MAHESH AQUINO self MEDICAID Examify [address] [facility] [address] MAHESH AQUINO self
--- OUTSIDE RECORDS SUMMARY | 2020-07-20 12:24 | CCD | Continuity of Care Document ---
Author Author Carrie TAN M.D. Organization Unknown Address [address] [place] [address] Phone [phone] Care Team Providers Care Commercial Airline Pilot Name Role Phone Kaylene Rain D.O. AUTM [phone] Problems Active Problems Provider Date Insomnia Cruzito [...] Tan M.D. Onset: 0 11/06/2019 Neck pain Cruizto Tan M.D. Onset: 11/06/2019 Social History Type [...] lb BMI (Body Mass Index) 28.0 kg/m2 Kelly Body Weight 125 lb 11/05/2014 12:46pm BP Systolic 120 mmHg BP Diastolic 80 mmHg Heart Rate 74 /min Respiratory Rate 16 /min Height 64 inches 5'4" Weight 135.00 lb BMI (Body Mass Index) 23.2 kg/m2 Kelly Body Weight 120 lb Results Description No Information Available Procedures Date Code Description Status 06/15/2020 41177 Nerve Conduction 11-12 Studies C ompleted 06/15/2020 19930 Needle Electromyography Complete , Five Or More Muscles Studied Completed 06/15/2020 45911 Needle Electromyography Complete , Five Or More Muscles Studied Completed Medical Devices Description No Information Available Encounters Type Date Location Provider Dx Diagnosis Office Visit 01/28/2020 2:00p Main office - [facility] Estiven Oleary R29.6 Repeated falls R26.81 Unsteadiness [...] Provider 07/01/2020 M79.604 Pain in right leg Alejandro Oleary. 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 DRonny 06/15/2020 M79.605 Pain in left leg Alejandro Oleary.D Ronny 01/28/2020 R29.6 Repeated falls Cruzito Tan M.DRonny 01/28/2020 R26.81 Unsteadiness on feet Estiven OlearyDRonny 01/28/2020 M54.5 Low back pain Cruzito Tan M.D. 01/28/2020 M43.06 Spondylolysis, lumbar region Gunnar Tan M.D. 01/28/2020 M54.16 Radiculopathy, lumbar region Gunnar Tan M.D. 01/28/2020 G25.81 Restless legs syndrome Cruzito St i, M.D. 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 01/28/2020 M43.02 Spondylolysis, cervical region Alejandro Tan M.D. 01/28/2020 M54.2 Cervicalgia Cruzito Tan M.D. 01/28/2020 I63.032 Cerebral infarction due to throm bosis of left carotid artery Cruzito Tan M.D. 01/28/2020 F51.01 Primary insomnia Kristen Oleary Plan of Treatment No Information Available Functional Status Description No Information Available Mental Status Description No Information Available Referrals Refer to Dr Reason for Referral Status Appt Date Cruzito Tan M.D. Created [facility] [address] [place] [address] [phone] Cruzito Tan M.D. Created [facility] [address] [place] [address] [phone]
--- OUTSIDE RECORDS SUMMARY | 2020-07-20 12:25 | CCD | Continuity of Care Document ---
Author Author Carrie TAN M.D. Organization Unknown Address [address] [place] [id number] Phone [phone] Care Team Providers Care Yard Operator Name Role Phone Kaylene Rain D.O. AUTM [phone] Problems Active Problems Provider Date Insomnia Cruzito [...] take one tablet by mouth at bedtime 90sly Tan M.D. 06/02 Gabapentin 300mg Capsules Take One Capsule By Mouth Twice A Day 180captuyet Tan M.D. 03/20/2019 Clopidogrel Bisulfate 75mg Tablets Take 1 Tablet By Mouth Once Daily 90sly Tan M.D. 09/01 Pramipexole Dihydrochloride 1mg Ta blets Take 1 Tablet By Mouth Once Daily AT Bedtime Maximum Daily Dose = 1 90sly Tan M.D. 12/10/2013 Immunizations Description No Information Available Vital Signs Date Vital Result Comment 08/18/2015 12:38pm BP Systolic 125 mmHg BP Diastolic 80 mmHg Heart Rate 72 /min Respiratory Rate 16 /min Height 65 inches 5'5" Weight 168.00 lb BMI (Body Mass Index) 28.0 kg/m2 [place] Body Weight 125 lb 11/05/2014 12:46pm BP Systolic 120 mmHg BP Diastolic 80 mmHg Heart Rate 74 /min Respiratory Rate 16 /min Height 64 inches 5'4" Weight 135.00 lb BMI (Body Mass Index) 23.2 kg/m2 [place] Body Weight 120 lb Results Description No Information Available Procedures Description No Information Available Medical Devices Description No Information Available Encounters Type Date Location Provider Dx Diagnosis Office Visit 01/28/2020 2:00p Main office - [place] Estiven Oleary R29.6 Repeated falls R26.81 Unsteadiness on feet M54.5 Low back pain M43.06 Spondylolysis, lumbar region M54.16 Radiculopathy, lumbar region G25.81 Restless legs syndrome 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 [...] Kristen Oleary Plan of Treatment Future Appointment(s):* 07/01/2020 2:45 pm - Cruzito Tan M.D. at Main office - [place] Functional Status Description No Information Available Mental Status Description No Information Available Referrals Refer to Dr Reason for Referral Status Appt Date Cruzito Tan M.D. Created [facility] [address] [place] [address] [phone]
--- OUTSIDE RECORDS SUMMARY | 2020-07-20 12:25 | CCD | Continuity of Care Document ---
Author Author Carrie ARRIAZA PA Organization Unknown Address [address] [facility] [place] [address] Phone [phone] Care Team Providers Care Religious Studies Professor Name Role Phone Kaylene Rain DO AUTM [phone] Maximo Rodriguez MD Unavailable Problems Active Problems [...] Provide r Date Tramadol HCL 50mg Tablets Take 1 tablet by mouth twice daily for pain 10tabs Oswaldo Mathew 04/08/2020 Tylenol With Codeine #4 300-60mg T [...] Available Procedures Date Code Description Status 06/18/2020 57529 X-Ray Spine Lumbosacral Ap & Lat eral 2-3 Views Completed 01/28/2020 72896 X-Ray Spine Lumbosacral Ap & Lat eral 2-3 Views Completed Medical Devices Description No Information Available Encounters Type Date Location Provider Dx Diagnosis Office Visit 04/28/2020 3:15p [place] ТАТЬЯНА Davalos M54.5 Low back pain M16.0 Bilateral primary osteoarthr itis of hip M70.61 Trochanteric bursitis, right hip M70.62 Trochanteric bursitis, left hip S32.040S Wedge compression fracture o f fourth lum vertebra, sequela Assessments Date Code Description Provider 06/18/2020 M51.36 Other intervertebral disc degene ration, lumbar region ТАТЬЯНА Davalos 06/18/2020 M47.896 Other spondylosis, lumbar region ТАТЬЯНА Davalos 06/18/2020 M16.0 Bilateral primary osteoarthritis of hip ТАТЬЯНА Davalos 06/18/2020 M70.61 Trochanteric bursitis, right hip ТАТЬЯНА Davalos 06/18/2020 M70.62 Trochanteric bursitis, left hip ТАТЬЯНА Davalos 06/18/2020 S32.040S Wedge compression fr acture of fourth lumbar vertebra, sequela ТАТЬЯНА Davalos 05/20/2020 M51.36 Other intervertebral disc degene ration, lumbar region Sha Soto Drazek, PA 05/20/2020 M47.896 Other spondylosis, lumbar region Sha I. Sofiya, PA 05/20/2020 M16.0 Bilateral primary osteoarthritis of hip Sha I. Sofiya, PA 05/20/2020 M70.61 Trochanteric bursitis, right hip Sha I. Sofiya, PA 05/20/2020 M70.62 Trochanteric bursitis, left hip Sha IRonny Arriaza, PA 05/20/2020 S32.040S Wedge compression fr acture of fourth lumbar vertebra, sequela Sha IRonny Arriaza, PA 04/28/2020 M54.5 Low back pain Sha IRonny Arriaza, PA 04/28/2020 M16.0 Bilateral primary osteoarthritis of hip Sha I. Sofiya, PA 04/28/2020 M70.61 Trochanteric bursitis, right hip Sha IRonny Arriaza, PA 04/28/2020 M70.62 Trochanteric bursitis, left hip Sha IRonny Arriaza, PA 04/28/2020 S32.040S Wedge compression fr acture of fourth lumbar vertebra, sequela Sha IRonny Arriaza, PA 03/04/2020 S32.040D Wedge compression fr acture of fourth lumbar vertebra, subsequent encounter for fracture with routine healing Sha IRonny Arriaza, PA 03/04/2020 M16.0 Bilateral primary osteoarthritis of hip Sha IRonny Arriaza, PA 03/04/2020 M70.61 Trochanteric bursitis, right hip Sha IRnony Arriaza, PA 03/04/2020 M70.62 Trochanteric bursitis, left hip Sha I. Sofiya, PA 03/04/2020 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, lumbar region Sha IRonny Arriaza, PA 03/04/2020 M51.36 Other intervertebral disc degene ration, lumbar region Sha IRonny Arriaza, PA 02/27/2020 S32.040D Wedge compression fr acture of fourth lumbar vertebra, subsequent encounter for fracture with routine healing Sha IRonny Arriaza, PA 01/28/2020 S32.040D Wedge compression fr acture of fourth lumbar vertebra, subsequent encounter for fracture with routine healing Sha IRonny Plataek, PA 01/28/2020 R10.31 Right lower quadrant pain ТАТЬЯНА Rojas 01/28/2020 R10.32 Left lower quadrant pain ТАТЬЯНА Davalos Plan of Treatment 06/18/2020 - ТАТЬЯНА Davalos* M51.36 Other intervertebral disc degeneration, lumbar region* Follow up:* prn * M47.896 Other spondylosis, lumbar region * M16.0 Bilateral primary osteoarthritis of hip * M70.61 Trochanteric bursitis, right hip * M70.62 Trochanteric bursitis, left hip * S32.040S Wedge compression fracture of fourth lumbar vertebra, sequela Functional Status Description No Information Available Mental Status Description No Information Available Referrals Refer to Dr Reason for Referral Status Appt Date Sha Arriaza Pac PT BASED ON MED. [facility] TO PT DEPT, NT Create d [address] [place] [phone] Sha Arriaza Pac PT BASED ON MED. [facility] TO PT DEPT. NT Closed [address] [place] [phone]
--- OUTSIDE RECORDS SUMMARY | 2020-07-20 12:25 | CCD | Continuity of Care Document ---
Author Author Carrie TAN M.D. Organization Unknown Address [address] [place] [id number] Phone [phone] Care Team Providers Care Speed Belt Sander Tender Name Role Phone Kaylene Rain D.O. AUTM [phone] Problems Active Problems Provider Date Insomnia Cruzito [...] lb BMI (Body Mass Index) 28.0 kg/m2 [place] Body Weight 125 lb 11/05/2014 12:46pm BP Systolic 120 mmHg BP Diastolic 80 mmHg Heart Rate 74 /min Respiratory Rate 16 /min Height 64 inches 5'4" Weight 135.00 lb BMI (Body Mass Index) 23.2 kg/m2 [place] Body Weight 120 lb Results Description No Information Available Procedures Date Code Description Status 06/15/2020 52156 Nerve Conduction 11-12 Studies C ompleted 06/15/2020 69831 Needle Electromyography Complete , Five Or More Muscles Studied Completed 06/15/2020 14930 Needle Electromyography Complete , Five Or More Muscles Studied Completed Medical Devices Description No Information Available Encounters Type Date Location Provider Dx Diagnosis Office Visit 01/28/2020 2:00p Main office - [place] Estiven Oleary R29.6 Repeated falls R26.81 Unsteadiness [...] Provider 07/01/2020 M79.604 Pain in right leg Cruzito Tan M. DRonny 07/01/2020 R29.6 Repeated falls Cruzito Tan M.D. 07/01/2020 R26.81 Unsteadiness on feet Cruzito Tan M.DRonny 07/01/2020 M54.5 Low back pain Alejandro Oleary.DRonny 07/01/2020 M43.06 Spondylolysis, lumbar region Gunnar sin Dominick M.DRonny 07/01/2020 M54.16 Radiculopathy, lumbar region Gunnar sin Dominick M.DRonny 07/01/2020 G25.81 Restless legs syndrome Alejandro Castellon i.DRonny 07/01/2020 I63.031 Cerebral infarction due to thrombosis of right carotid artery Cruzito Tan M.DRonny 07/01/2020 M43.02 Spondylolysis, cervical region M Alejandro Lott.DRonny 07/01/2020 M54.2 Cervicalgia Cruzito Tan M.DRonny 07/01/2020 I63.032 Cerebral infarction due to throm bosis of left carotid artery Cruzito Tan M.DRonny 06/15/2020 M79.604 Pain in right leg Cruzito Tan M. DRonny 06/15/2020 M79.605 Pain in left leg Cruzito Ali M.D Ronny 06/15/2020 M54.89 Other dorsalgia Cruzito Tan M.DRonny 01/28/2020 R29.6 Repeated falls Cruzito Tan M.DRonny 01/28/2020 R26.81 Unsteadiness on feet Cruzito Tan M.DRonny 01/28/2020 M54.5 Low back pain Cruzito Tan M.DRonny 01/28/2020 M43.06 Spondylolysis, lumbar region Gunnar sin Estiven TanDoRnny 01/28/2020 M54.16 Radiculopathy, lumbar region Gunnar Tan [...] Status Appt Date Cruzito Tan M.D. Created [facility] [address] [place] [address] [phone]
--- OUTSIDE RECORDS SUMMARY | 2020-07-20 12:25 | CCD | Continuity of Care Document ---
Author Author Carrie RAIN Organization Unknown Address [phone] [address] Phone [phone] Care Team Providers Care Driver Sales Name Role Phone Gui Pineda MD AUTM [phone] Kaylene Rain DO AUTM Unavailable Cruzito Tan MD AUTM [phone] [facility] AUTM [phone] Problems Active Problems Provider Date Acute bronchitis [...] mouth at night before bedtime 60tabs Kaylene Rain,DO 05/26/20 20 Losartan Potassium 25mg Tablets Take [...] Kaylene Rain,DO 12/26/2018 Fluticasone Propionate 50mcg/Act Suspension [place] 2 Sprays In Each Nostril Every Morning as Needed 16units Dasia Garcia,[facility] 12/13/2018 Mometasone Furoate 0.1% Cream Apply To [...] times a day as needed 1units Kaylene Rain,DO 07/04/2017 Metoprolol Tartrate 25mg Tablets Take One Tablet By Mouth Every Day 30tabs Kaylene Rain,DO 2016 Plavix 75mg Tablets 1 by mouth every day 90tabs Kaylene Rain,DO 09/02/2016 Ra Aspirin Ec Adult Low Strength 81mg Tablets DR 1 by mouth every day 30tabs Kaylene Rain,DO 09/02 Levocetirizine Dihydrochloride 5mg Tablets take one by mouth at at bedtime 30tabs Kaylene Abisai juarez,DO 03/08/2016 Pantoprazole Sodium 40mg Tablets D R Take One Tablet By Mouth Every Day 30tabs Dia Newsome, INTELLIGENCE OFFICER 0 01/06/2016 Duloxetine HCL 60mg Caps DR Anna Take One Capsule By Mouth Twice A Day 180caps Kaylenejerrell Rain,DO 01/2016 Colace 100mg Capsules take one capsule by mouth twice a day 60caps Kaylene Koffi,DO 09/17/2014 Alprazolam 0.5mg Tablets 1 by mouth every day at at bedtime as needed 30tabs F41.1 Kaylene Koffi,DO 05/03 Nitrostat 0.4mg Tablets Sub one under tongue [...] Date Facility Test Result H/L Range Note Complete Blood Count 05/26/2020 [employer] Anchorman: [place] [address] [phone] WBC 11.9 x10*3/UL High 4.1 - 10.9 [...] 2.0 - 7.8 Comprehensive Chem Profile 05/26/2020 [place] [facility] Anchorman: [place] [address] [phone] Glucose 117 mg/dL High 74 - 99 1 BUN 12 mg/dL 7 - 18 Creatinine [...] Low >60 GFR 38 mL/min Low >60 2 CBC With Differential 04/29/2020 [facility] [address] [place] [address] [phone] White Blood Count 12.1 10 High 4.0-10.0 [...] 36.0-66.0 Lymph % 22.4 % Low 24.0-44.0 Hopkins % 7.9 % High 0.0-5.0 Eos % 6.0 % High 0.0-3.0 Baso % 0.7 % Normal 0.0-1.0 Immature Granulocyte % 0.3 % Normal 0-3.0 Nucleated Red Blood Cell % 0.0 % Normal 0-0 Neutrophils # 7.6 10 Normal 1.5-8.5 Lymph # 2.7 10 Normal 1.5-5.0 Hopkins # 1.0 10 High 0.0-0.8 Eos # 0.7 10 High 0.0-0.5 Baso # 0.1 10 Normal 0.0-0.2 Comprehensive Metabolic Profil 04/29/2020 [place] [id number] [phone] Glucose, Fasting 86 mg/dL Normal 70-100 Blood Urea Nitrogen 14 mg/dL Normal 7-18 Creatinine For GFR 1.68 mg/dL High 0.55-1.30 Glomerular Filtration Rate 31.8 Low >39 3 Sodium Level 140 mEq/L Normal 136-145 Potassium [...] 0.8 Low 1.2-2.2 Laboratory test finding 04/29/2020 [place] [address] [phone] Carcinoembryonic Antigen 4.0 NG/ML High <2.5 4 Laboratory test finding 03/13/2020 [place] [employer] tia aly Anchorman: [place] [address] [phone] Sed Rate 41 mm/hr High 0 - 15 Anti-Neutrophil Cytoplasmic AB 03/13/2020 [place] [id number] [phone] Cytoplasmic Neutrop AB Anca-C <1:20 titer Normal N eg:<1:20 Perinuclear AB Anca-P <1:20 titer Normal Neg:<1:20 5 Anca-Atypical <1:20 titer Normal Neg:<1:20 6 Serum Protein Electrophoresis 03/13/[address] [address] [phone] Albumin % 53.1 % Low 55.8-66.1 Luqgd-2-Sjikalda % 5.2 % High 2.9-4.9 Tyfnx-4-Vkwwchozc % 14.0 % High 7.1-11.8 Flds-2-Cguziwrxd % 7.2 % Normal 4.7-7.2 Gvpx-9-Qfqrutkpa % 6.6 % High 3.2-6.5 Gamma Globulin % 13.9 % Normal 11.1-18.8 Albumin 3.66 GM/DL Normal 3.29-5.55 Xpzjv-7-Zjilveryd 0.36 GM/DL Normal 0.17-0.41 Ebhhi-4-Axzklhpli 0.97 GM/DL Normal 0.42-0.99 Wmxv-0-Uoauaphpz 0.50 GM/DL Normal 0.28-0.60 Msnj-4-Qnnjchhdf 0.46 GM/DL Normal 0.19-0.55 Gamma Globulins 0.96 GM/DL Normal 0.65-1.58 Total Protein 6.9 GM/DL Normal 6.4-8.2 Spep Interpretation SEE COMMENT Normal 7 Spep Pathologist Review REV'D BY O ADJAP <SEE NOTE> Normal 8 Laboratory test finding 03/13/[address] [address] [phone] Phospholipids Level 151 mg/dL Normal 150-250 9 Laboratory test finding 02/01/[address] [address] [phone] Troponin I < 0.02 NG/ML Normal < 0.10 10 Lipase 80 U/L Normal 73-393 Thyroid Stimulating Hormone 0.753 uIU/ML Normal 0.358-3.740 Free T4 0.90 ng/dL Normal 0.76-1.46 Basic Metabolic Profile 02/01/[address] [address] [phone] Glucose, Fasting 103 mg/dL High 70-100 Blood Urea Nitrogen 10 mg/dL Normal 7-18 Creatinine For GFR 1.34 mg/dL High 0.55-1.30 Glomerular Filtration Rate 41.3 Normal >39 1 1 Sodium Level 138 mEq/L Normal 136-145 Potassium Serum 4.4 mEq/L Normal 3.5-5.1 Chloride Level 107 mEq/L Normal 98-107 Carbon Dioxide Level 27 mEq/L Normal 21-32 Anion Gap 4 mEq/L Low 8-16 Calcium Level 8.5 mg/dL Low 8.8-10.2 Liver Profile 02/01/2020 [facility] nter [address] [place] [address] [phone] Ast/Sgot 11 U/L Normal 7-37 Alt/SGPT 11 U/L Low 12-78 Alkaline Phosphatase 101 U/L Normal 45-117 Bilirubin,Total 0.1 mg/dL Low 0.2-1.0 Bilirubin,Direct < 0.1 mg/dL Normal 0.0-0.2 Total Protein 7.0 GM/DL Normal 6.4-8.2 Albumin 3.0 GM/DL Low 3.2-5.2 Albumin/Globulin Ratio 0.8 Low 1.2-2.2 Cardiac Injury Profile 02/01/[address] [address] [phone] CPK Creatine Phosphokinase 60 U/L Normal 26-19 2 CK-MB Value Mass < 1.0 NG/ML Normal <3.6 MB/CK Relative Index 1.67 Normal < Or =4 12 CBC With Differential 02/01/2020 [facility] [address] [place] [address] [phone] White Blood Count 9.8 10 Normal 4.0-10.0 [...] 36.0-66.0 Lymph % 28.3 % Normal 24.0-44.0 Hopkins % 8.8 % High 0.0-5.0 Eos % 5.8 % High 0.0-3.0 Baso % 0.7 % Normal 0.0-1.0 Immature Granulocyte % 0.3 % Normal 0-3.0 Nucleated Red Blood Cell % 0.0 % Normal 0-0 Neutrophils # 5.5 10 Normal 1.5-8.5 Lymph # 2.8 10 Normal 1.5-5.0 Hopkins # 0.9 10 High 0.0-0.8 Eos # 0.6 10 High 0.0-0.5 Baso # 0.1 10 Normal 0.0-0.2 PT & Aptt 02/01/2020 [facility] nter [address] [place] [address] [phone] Prothrombin Time 13.2 seconds Normal 11.8-14.0 Inr 0.99 Normal 13 Partial Thromboplastin Time 30.2 seconds Normal 25.0-38.4 Laboratory test finding 01/24/2020 [place] [employer] Anchorman: [place] [address] [phone] Sed Rate 54 mm/hr High 0 - 15 Istat Chem8+ Panel 12/31/2019 [facility] nter [address] [place], [place] [id number] [phone] iSTAT HCT 31.0 % Low 38.0-51.0 iSTAT Glucose 122 mg/dL High 70-105 iSTAT Sodium 138 mEq/L Normal 136-145 iSTAT Potassium 3.8 mEq/L Normal 3.5-5.1 iSTAT CA++ 4.6 mg/dL Normal 4.5-5.3 iSTAT Chloride 104 mEq/L Normal 98-109 iSTAT Co2 20.0 MM/L Low 23.0-27.0 iSTAT BUN 9 mg/dL Normal 8-26 iSTAT Creatinine 1.3 mg/dL Normal 0.6-1.3 CBC With Differential 12/31/2019 [facility] [address] [place], [place] [address] [phone] White Blood Count 13.4 10 High 4.0-10.0 Red Blood Count 3.12 10 Low 4.00-5.40 Hemoglobin 8.9 g/dL Low 12.0-15.5 Hematocrit 28.8 % Low 36.0-47.0 Mean Corpuscular Volume 92.3 fl Normal 80.0-96.0 Mean Corpuscular Hemoglobin 28.5 pg Normal 27.0-33.0 Mean Corpuscular HGB Conc 30.9 g/dL Low 32.0-36.5 Red Cell Distribution Width 17.3 % High 11.5-14.5 Platelet Count, Automated 449 10 Normal 150-450 Neutrophils % 71.0 % High 36.0-66.0 Lymph % 15.3 % Low 24.0-44.0 Hopkins % 9.4 % High 0.0-5.0 Eos % 3.4 % High 0.0-3.0 Baso % 0.5 % Normal 0.0-1.0 Immature Granulocyte % 0.4 % Normal 0-3.0 Nucleated Red Blood Cell % 0.0 % Normal 0-0 Neutrophils # 9.5 10 High 1.5-8.5 Lymph # 2.0 10 Normal 1.5-5.0 Hopkins # 1.3 10 High 0.0-0.8 Eos # 0.5 10 Normal 0.0-0.5 Baso # 0.1 10 Normal 0.0-0.2 Laboratory test finding 12/31/2019 [facility] [address] [place] [address] [phone] iSTAT Troponin 0.00 NG/ML Normal 0.00-0.08 Complete Blood Count 12/19/2019 [place] [employer] Anchorman: [place] [address] [phone] WBC 10.8 x10*3/UL 4.1 - 10.9 RBC 3.41 x10*6/UL Low 4.20 - 6.30 Hemoglobin 9.7 g/dL Low 12.0 - 18.0 14 Hematocrit 30.3 % Low 37.0 - 51.0 MCV 88.7 fL 80.0 - 97.0 MCH 28.6 pg 26.0 - 32.0 MCHC 32.2 g/dL 31.0 - 38.0 RDW 17.2 % High 11.6 - 13.7 PLT 530 x10*3/UL High 140 - 440 MPV 7.0 FL Low 7.8 - 11.0 Lymph % 21.6 % 10.0 - 58.5 Mid % 7.6 % 1.7 - 9.3 Neut % 70.8 % 37.0 - 92.0 Lymph # 2.3 x10*3/UL 0.6 - 4.1 Mid # 0.8 x10*3/UL High 0.1 - 0.6 Neut # 7.7 x10*3/UL 2.0 - 7.8 Laboratory test finding 12/19/2019 [place] [employer] tia aly Anchorman: [place] [address] [phone] Sed Rate 55 mm/hr High 0 - 15 Comprehensive Chem Profile 12/19/2019 [place] [facility] Menjivar Anchorman: [place] [address] [phone] Glucose 100 mg/dL High 74 - 99 15 BUN 11 mg/dL 7 - 18 Creatinine 1.5 mg/dL High 0.6 - 1.3 16 Sodium 138 mEq/L 136 - 145 Potassium 4.5 mEq/L 3.5 - 5.1 Chloride 104 mEq/L 98 - 107 Carbon Dioxide 27 mEq/L 21 - 32 Calcium 8.0 mg/dL Low 8.5 - 10.1 17 Alk. Phosphatase 96 mg/dL 46 - 116 Total Bilirubin 0.2 mg/dL Low 0.2 - 1.0 Ast (Sgot) 10 U/L Low 15 - 37 Alt (SGPT) 14 U/L 12 - 78 Albumin 2.7 g/dL Low 3.4 - 5.0 18 Total Protein 7.1 g/dL 6.4 - 8.2 A/G Ratio 0.61 CALC Low 1.00 - 1.90 GFR 34 mL/min Low >60 GFR 41 mL/min Low >60 19 Lipid Profile 12/19/2019 [facility] Anchorman: [place] [address] [phone] Cholesterol 109 mg/dL Low 131 - 200 Triglycerides 93 mg/dL 30 - 150 HDL Cholesterol 52 mg/dL 35 - 60 LDL (Calculated) 38 CALC Low 50 - 159 1 100-125 mg/dL PRE-DIABET ES/FASTING >126 mg/dL DIABETES/FASTING 2 CHRONIC KIDNEY DISEASE STAGI NG PER NKF STAGE I & II GFR >= 60 NORMAL TO MILDLY DECREASED STAGE III GFR 30-59 MODERATELY DECREASED STAGE IV GFR 15-29 SEVERELY DECREASED STAGE V GFR <15 VERY LITTLE GFR LEFT ESRD GFR <15 ON DIRECTOR [employer] 3 Units are mL/min/1.73 m2 Chronic Kidney Disease Staging per NKF: Stage I & II GFR >=60 Normal to Mildly Decreased Stage III GFR 30-59 Moderately Decreased Stage IV GFR 15-29 Severely Decreased Stage V GFR <15 Very Little GFR Left ESRD GFR <15 on DIRECTOR [employer] 4 THE CEA ASSAY IS PERFORMED O N THE [employer] BY CHEMILUMINESCENCE AND SHOULD NOT BE COMPARED INTERCHANGEABLY WITH OTHER METHODS. IT SHOULD NOT BE USED ALONE A SCREENING TEST OR DIAGNOSIS FOR THE PRESENCE OR ABSENCE OF MALIGNANT DISEASE. PREDICTIONS OF DISEASE RECURRENCE SHOULD NOT BE BASED SOLELY ON VALUES OBTAINED FROM SERIAL PATIENT SERUM VALUES. 5 The presence of positive flu orescence exhibiting P-ANCA or C-ANCA patterns alone is not specific for the diagnosis of Carmen's Granulomatosis (WG) or microscopic polyangiitis. Decisions about treatment should not be based solely on ANCA IFA results. The International ANCA Group Consensus recommends follow up testing of positive sera with both NM- 3 and MPO-ANCA enzyme immunoassays. As m any as 5% serum samples are positive only by EIA. Ref. AM J Clin Pathol 1999;111:507-513. 6 The atypical pANCA pattern h as been observed in a significant percentage of patients with ulcerative colitis, primary sclerosing cholangitis and autoimmune hepatitis. 7 NO M-SPIKE(S)NOTED. 8 REV'D BY Samaria OLIVARES 9 Results for this test are fo r research purposes only by the assay's architect marine. The performance characteristics of this product have not been established. Results should not be used as a diagnostic procedure without confirmation of the diagnosis by another medically established diagnostic product or procedure. Performed at: [address] [id number] Anchorman: Trevin Hardin MD, Phone: [phone] 10 Troponin I Reference Interva l for [employer] [place] LOCI: 99th Percentile= 0.00-0.045 ng/ml Risk Stratification: <= 0.10 ng/ml Decreased Risk for Adverse Clinical Events. 0.10-1.50 ng/ml Increased Risk for Adv erse Clinical Events. Evaluation of additional criterion and/or repeat testing in 2-6 hours is suggested to rule out myocardial damage. >= 1.50 ng/ml Indicative of Myocardial Injury. 11 Units are mL/min/1.73 m2 Chronic Kidney Disease Staging per NKF: Stage I & II GFR >=60 Normal to Mildly Decreased Stage III GFR 30-59 Moderately Decreased Stage IV GFR 15-29 Severely Decreased Stage V GFR <15 Very Little GFR Left ESRD GFR <15 on DIRECTOR [employer] 12 DIAGNOSIS CRITERIA MMB ng/ml Relative Index (RI) NON-AMI < or = 5 N/A BLANC ZONE > 5 < or = 4 AMI > 5 > 4 13 THERAPUTIC HUMAN INR VALUES INDICATIONS NORMAL RANGES PROPHYLAXIS/TREATMENT OF: VENOUS THROMBOSIS 2.0-3.0 PULMONARY EMBOLISM 2.0-3.0 PREVENTION OF SYSTEMIC EMBOLISM FROM: TISSUE HEART VALVES 2.0-3.0 ACUTE MYOCARDIAL INFARCTION 2.0-3.0 VALVULAR HEART DISEASE 2.0-3.0 ATRIAL FIBRILLATION 2.0-3.0 MECHANICAL VALVES(HIGH RISK) 2.5-3.5 RECURRENT MYOCARDIAL INFARCTION 2.5-3.5 14 NOTE: RESULT VERIFIED. 15 100-125 mg/dL PRE-DIABET ES/FASTING >126 mg/dL DIABETES/FASTING 16 NOTE: RESULT VERIFIED. 17 NOTE: RESULT VERIFIED. 18 NOTE: RESULT VERIFIED. 19 CHRONIC KIDNEY DISEASE STAGI NG PER NKF STAGE I & II GFR >= 60 NORMAL TO MILDLY DECREASED STAGE III GFR 30-59 MODERATELY DECREASED STAGE IV GFR 15-29 SEVERELY DECREASED STAGE V GFR <15 VERY LITTLE GFR LEFT ESRD GFR <15 ON DIRECTOR MULTIM[employer]IA Procedures Date Code Description Status 02/25/2020 672231439 Diabetic Retinal Eye Exam Comple bertram 09/13/2018 [id number] Diabetic Retinal Eye Exam Comple bertram 06/22/2018 [id number] Colonoscopy Completed 11/23/2015 [id number] Mammogram Completed 10/24/2014 [id number] Mammogram Completed 11/19/2013 [id number] Colonoscopy Completed 05/15/2012 [id number] Mammogram Completed 01/24/2011 [id number] Mammogram Completed 04/01/2010 [id number] Colonoscopy Completed Medical Devices Description No Information Available Encounters Type Date Location Provider Dx Diagnosis Office Visit 05/26/2020 2:00p [facility] PRicarda Rain DO G89.29 Other chronic pain J44.9 [...] and c ereb infrc w/o resid deficits Office Visit 12/19/2019 2:00p [place] [facility] aly DO M06.4 Inflammatory polyarthropathy J44.9 Chronic obstructive pulmonar y disease, unspecified G89.29 Other chronic pain N18.3 Chronic kidney disease, stag e 3 (moderate) I25.5 Ischemic cardiomyopathy I73.9 Peripheral vascular disease, unspecified G25.81 Restless legs syndrome D50.9 Iron deficiency anemia, unsp ecified I10 Essential (primary) hyperten mando E78.00 Pure hypercholesterolemia, u nspecified Assessments Date Code Description Provider 05/26/2020 G89.29 Other chronic pain Loco Brumfield 05/26/2020 J44.9 Chronic obstructive pulmonary di sease, unspecified Kaylene Rain,DO 05/26/2020 G25.81 Restless legs syndrome Kaylene juarez,DO 05/26/2020 I10 Essential (primary) hypertension Kaylene Rain,DO 05/26/2020 N18.30 Chronic kidney disease, stage 3 unspecified Kaylene Koffi,DO 05/26/2020 M06.4 Inflammatory polyarthropathy Humphrey ra Koffi,DO [...] and cerebral infarction without residual deficits Kaylene Koffi,DO 04/08/2020 J44.9 Chronic obstructive pulmonary di sease, unspecified Kaylene Rain,DO 04/08/2020 G89.29 Other chronic pain Kaylene Koffi,D O 04/08/2020 G25.81 Restless legs syndrome Kaylene Barone larry,DO 04/08/2020 I10 Essential (primary) hypertension Kaylene Koffi,DO 03/13/2020 N18.3 Chronic kidney disease, stage 3 (moderate) Kaylene Rain,DO 03/13/2020 N18.3 Chronic kidney disease, stage 3 (moderate) Lab Schedule 01/31/2020 J44.9 Chronic obstructive pulmonary di sease, unspecified Kaylene Rain,DO 01/31/2020 G89.29 Other chronic pain Kaylene Koffi,D O 01/31/2020 N18.3 Chronic kidney disease, stage 3 (moderate) Kaylene Koffi,DO 01/31/2020 G25.81 Restless legs syndrome Kaylene juarez,DO 01/24/2020 M25.50 Pain in unspecified joint Kaylene Rain,DO 01/24/2020 M25.50 Pain in unspecified joint Lab Sc hedule 12/30/2019 J44.9 Chronic obstructive pulmonary di sease, unspecified Kaylene Rain,DO 12/30/2019 G89.29 Other chronic pain Loco Brumfield O 12/30/2019 N18.3 Chronic kidney disease, stage 3 (moderate) Kaylene Rain,DO 12/30/2019 G25.81 Restless legs syndrome Kaylene juarez,DO 12/19/2019 M06.4 Inflammatory polyarthropathy Milagro Rain,DO 12/19/2019 J44.9 Chronic obstructive pulmonary di sease, unspecified Kaylene Rain,DO 12/19/2019 G89.29 Other chronic pain Loco Brumfield O 12/19/2019 N18.3 Chronic kidney disease, stage 3 (moderate) Kaylene Rain,DO 12/19/2019 I25.5 Ischemic cardiomyopathy Kaylene marins,DO 12/19/2019 I73.9 Peripheral vascular disease, uns pecified Kaylene Rain,DO 12/19/2019 G25.81 Restless legs syndrome Kaylene juarez,DO 12/19/2019 D50.9 Iron deficiency anemia, unspecif ied Kaylene Rain,DO 12/19/2019 I10 Essential (primary) hypertension Kaylene Rain, 12/19/2019 E78.00 Pure hypercholesterolemia, unspe cified Kaylene Rain DO Plan of Treatment Future Appointment(s):* 11/23/2020 1:00 pm - Kaylene Rain DO at [facility] 05/26/2020 - Kaylene Rain DO* [...] to Reason for Referral Status Appt Date [facility] Chest CT Screening Program CT EARLY CANCER LUNG SCREENING EX AM Sent [address] [place] [address] [phone] [facility] Hematology/Oncology SHAKE MA[facility]ER CONSULT FOR POSSIBLE OCCULT JAYME FONTANA Patient Notified 03/24/2020 [address] [place] [address] [phone]
--- OUTSIDE RECORDS SUMMARY | 2020-07-20 12:25 | CCD ---
Author Author [facility] Organization [facility] Address Unknown Phone Unavailable Care Team Providers Care Housekeeping Assistant Name Role Phone Carlos, Brigida Unavailable PROBLEMS Type Condition ICD9-CM Code GZP55-NM Code Onset Dates Condition S tatus SNOMED Code Notes Problem Vasculitis I77.6 Active 89624620 Problem Lumbar spondylosis M47.816 Active 912331017 Problem Fibromyalgia M79.7 Active 796011856 ALLERGIES No Known Allergies ENCOUNTERS from 1945 to 2020-06-11 Encounter Location Date Provider Diagnosis [address] [address] Jun, Brigida Gonzalez IMMUNIZATIONS No Information SOCIAL HISTORY Tobacco Use: [...] REASON FOR REFERRAL No Information VITAL SIGNS No information MEDICATIONS Medication SIG (Take, Route, Frequency, Duration) Notes Start Da te End Date Status Levocetirizine Dihydrochloride 5 MG 1 tablet in the evening Oral ly Once a day Active Pantoprazole Sodium 40 MG 1 tablet Orally Once a day for 30 day(s) Active Plavix 75 MG 1 tablet Orally Once a day for 30 day(s) Active Tramadol HCl 50 MG 1 tablet as needed Orally Once a day Active Alprazolam 0.5 MG 1 tablet Orally Twice a day Active Furosemide 20 MG 1 tablet Orally Once a day for 30 day(s) Active Mometasone Furoate 0.1 % 1 application Externally Once a day Active Singulair 10 MG 1 tablet Orally Once a day for 30 day(s) Active Fluticasone Propionate 50 MCG/ACT 1 spray in each nost ril Nasally Once a day for 30 day(s) Active Symbicort 160-4.5 MCG/ACT 2 puffs Inhalation Twice a day Active Gabapentin 300 MG 1 capsule Orally Once a day for 30 day(s) Active Losartan Potassium 50 MG 1 tablet Orally Once a day for 30 day(s) Active RA Aspirin Adult Low Strength 81 MG 1 tablet Orally Once a day f or 30 day(s) Active Famotidine 40 MG/5ML as directed Orally Active Atorvastatin Calcium 80 MG 1 tablet Orally Once a day for 30 day(s) Active Metoprolol Tartrate 25 MG 1 tablet with food Orally Twice a day for 30 day(s) Active Ferrous Gluconate 324 (38 Fe) MG 1 tablet with water o r juice between meals Orally Once a day for 30 day(s) Active Nitrostat 0.4 MG as directed Sublingual Active Triamcinolone Acetonide 0.1 % 1 application Externally Twice a day for Two weeks May, Active Colace 100 MG 1 capsule as needed Orally Once a day for 30 day(s) Active Duloxetine HCl 60 MG 1 capsule Orally Once a day for 30 day(s) Active Ventolin HFA 108 (90 Base) MCG/ACT 1 puff as needed Inhalation ever y 4 hrs Active Zovirax 5 % 1 application every 3 hours Externally Six times a day Active Triamcinolone Acetonide 0.1 % 1 application Externally Twice a day to legs ( avoid biopsy site) for 14 days May, A ctive PROCEDURES No Information RESULTS No Results REASON FOR VISIT Results MEDICAL (GENERAL) HISTORY Type Description Date Medical History Acute Bronchitis Medical History Chronic Pain Medical History Chronic Obstructive Lung Disease Medical History Restless Leg Syndrome Medical History Fibromyalgia Medical History Orthostatic Hypotension Medical History shingles Medical History biopsy Medical History stroke Medical History MRA Medical History mamogram Medical History coronary stint Medical History diverticulitis Surgical History hysterectomy Surgical History tonsillectomy Surgical History angiogram Surgical History "stomach reconstruction" Surgical History stent placement Hospitalization History stent placement 2019 [place] No Information Health Concerns No Information MEDICAL EQUIPMENT No Information MENTAL STATUS No Information FUNCTIONAL STATUS No Information ASSESSMENTS No Information PLAN OF TREATMENT Next Appt Details Provider Name:Brigida Gonzalez, 2020-06-16 01:00:00 PM, [address] [place], [address], Provider Name:Alexandra Pang, 2020-06 01:00:00 PM, [address] [place], [address], Insurance Providers Payer Name Payer Address Payer Phone Insured Name Patient Relati onship to Insured Coverage Start Date Coverage End Date MEDICARE Part A and B [address] [facility] [id number] MAHESH AQUINO self MEDICAID [facility] [address] [facility] [address] MAHESH AQUINO self
--- OUTSIDE RECORDS SUMMARY | 2020-07-20 12:25 | CCD | Continuity of Care Document ---
Author Author Carrie RAIN Organization Unknown Address [address] [address] Phone [phone] Care Team Providers Care Restaurant Kitchen Manager Name Role Phone Gui Pineda MD AUTM [phone] Kaylene Rain DO AUTM Unavailable Cruzito Tan MD AUTM [phone] [facility] AUTM [phone] Problems Active Problems Provider Date Acute bronchitis [...] Kaylene Rain,DO 12/26/2018 Fluticasone Propionate 50mcg/Act Suspension [place] 2 Sprays In Each Nostril Every Morning as Needed 16units Dasia Garcia,[facility] 12/13/2018 Mometasone Furoate 0.1% Cream Apply To [...] By Mouth Every Day 30tabs Dia Newsome, CLINICAL APPEALS REVIEWER 0 01/06/[address] H[address] C[address] [...] Range Note Complete Blood Count 05/26/2020 [facility] [employer] Distributor: [place] [address] [phone] WBC 11.9 x10*3/UL High 4.1 - 10.9 [...] 2.0 - 7.8 Comprehensive Chem Profile 05/26/2020 [place] [facility] [employer] Distributor: [place] [address] [phone] Glucose 117 mg/dL High 74 - 99 [...] Low >60 2 CBC With Differential 04/29/2020 [facility] [address] [place] [address] [phone] White Blood Count 12.1 10 High 4.0-10.0 [...] 36.0-66.0 Lymph % 22.4 % Low 24.0-44.0 Mcdonald % 7.9 % High 0.0-5.0 Eos % 6.0 % High 0.0-3.0 Baso % 0.7 % Normal 0.0-1.0 Immature Granulocyte % 0.3 % Normal 0-3.0 Nucleated Red Blood Cell % 0.0 % Normal 0-0 Neutrophils # 7.6 10 Normal 1.5-8.5 Lymph # 2.7 10 Normal 1.5-5.0 Mcdonald # 1.0 10 High 0.0-0.8 Eos # 0.7 10 High 0.0-0.5 Baso # 0.1 10 Normal 0.0-0.2 Comprehensive Metabolic Profil 04/29/2020 [place] [id number] [phone] Glucose, Fasting 86 mg/dL Normal 70-100 Blood [...] 0.8 Low 1.2-2.2 Laboratory test finding 04/29/2020 [place] [address] [phone] Carcinoembryonic Antigen 4.0 NG/ML High <2.5 4 Laboratory test finding 03/13/2020 [place] [facility] [employer] [facility] [employer] Distributor: [place] [address] [phone] Sed Rate 41 mm/hr High 0 - 15 Anti-Neutrophil Cytoplasmic AB 03/13/2020 [place] [id number] [phone] Cytoplasmic Neutrop AB Anca-C <1:20 titer Normal N eg:<1:20 Perinuclear AB Anca-P <1:20 titer Normal Neg:<1:20 5 Anca-Atypical <1:20 titer Normal Neg:<1:20 6 Serum Protein Electrophoresis 03/13/[address] [address] [phone] Albumin % 53.1 % Low 55.8-66.1 Holla-0-Zyjfustq % 5.2 % High 2.9-4.9 Wyzed-6-Meomoyvve % 14.0 % High 7.1-11.8 Wglk-8-Subadgnuk % 7.2 % Normal 4.7-7.2 Ibox-1-Mhplhbkoh % 6.6 % High 3.2-6.5 Gamma Globulin % 13.9 % Normal 11.1-18.8 Albumin 3.66 GM/DL Normal 3.29-5.55 Xfxzz-7-Upnzkvobl 0.36 GM/DL Normal 0.17-0.41 Rqapf-9-Onhkqetga 0.97 GM/DL Normal 0.42-0.99 Uwix-4-Zzwsbkjvg 0.50 GM/DL Normal 0.28-0.60 Wugy-3-Kyberktqm 0.46 GM/DL Normal 0.19-0.55 Gamma Globulins 0.96 GM/DL Normal 0.65-1.58 Total Protein 6.9 GM/DL Normal 6.4-8.2 Spep Interpretation SEE COMMENT Normal 7 Spep Pathologist Review REV'D BY O ADJAP <SEE NOTE> Normal 8 Laboratory test finding 03/13/[address] [address] [phone] Phospholipids Level 151 mg/dL Normal 150-250 9 Laboratory test finding 02/01/[address] [address] [phone] Troponin I < 0.02 NG/ML Normal < 0.10 10 Lipase 80 U/L Normal 73-393 Thyroid Stimulating Hormone 0.753 uIU/ML Normal 0.358-3.740 Free T4 0.90 ng/dL Normal 0.76-1.46 Basic Metabolic Profile 02/01/[address] [address] [phone] Glucose, Fasting 103 mg/dL High 70-100 Blood [...] 8.5 mg/dL Low 8.8-10.2 Liver Profile 02/01/2020 [facility] nter [address] [place] [address] [phone] Ast/Sgot 11 U/L Normal 7-37 Alt/SGPT 11 U/L Low 12-78 Alkaline Phosphatase 101 U/L Normal 45-117 Bilirubin,Total 0.1 mg/dL Low 0.2-1.0 Bilirubin,Direct < 0.1 mg/dL Normal 0.0-0.2 Total Protein 7.0 GM/DL Normal 6.4-8.2 Albumin 3.0 GM/DL Low 3.2-5.2 Albumin/Globulin Ratio 0.8 Low 1.2-2.2 Cardiac Injury Profile 02/01/[address] [address] [phone] CPK Creatine Phosphokinase 60 U/L Normal 26-19 2 CK-MB Value Mass < 1.0 NG/ML Normal <3.6 MB/CK Relative Index 1.67 Normal < Or =4 12 CBC With Differential 02/01/2020 [facility] [address] [place] [address] [phone] White Blood Count 9.8 10 Normal 4.0-10.0 [...] 36.0-66.0 Lymph % 28.3 % Normal 24.0-44.0 Mcdonald % 8.8 % High 0.0-5.0 Eos % 5.8 % High 0.0-3.0 Baso % 0.7 % Normal 0.0-1.0 Immature Granulocyte % 0.3 % Normal 0-3.0 Nucleated Red Blood Cell % 0.0 % Normal 0-0 Neutrophils # 5.5 10 Normal 1.5-8.5 Lymph # 2.8 10 Normal 1.5-5.0 Mcdonald # 0.9 10 High 0.0-0.8 Eos # 0.6 10 High 0.0-0.5 Baso # 0.1 10 Normal 0.0-0.2 PT & Aptt 02/01/2020 [facility] nter [address] [place] [address] [phone] Prothrombin Time 13.2 seconds Normal 11.8-14.0 Inr 0.99 Normal 13 Partial Thromboplastin Time 30.2 seconds Normal 25.0-38.4 Laboratory test finding 01/24/2020 [place] [facility] [employer] [employer] Distributor: [place] [address] [phone] Sed Rate 54 mm/hr High 0 - 15 Istat Chem8+ Panel 12/31/2019 [facility] nter [address] [place], [place] [address] [phone] iSTAT HCT 31.0 % Low 38.0-51.0 iSTAT Glucose 122 mg/dL High 70-105 iSTAT Sodium 138 mEq/L Normal 136-145 iSTAT Potassium 3.8 mEq/L Normal 3.5-5.1 iSTAT CA++ 4.6 mg/dL Normal 4.5-5.3 iSTAT Chloride 104 mEq/L Normal 98-109 iSTAT Co2 20.0 MM/L Low 23.0-27.0 iSTAT BUN 9 mg/dL Normal 8-26 iSTAT Creatinine 1.3 mg/dL Normal 0.6-1.3 CBC With Differential 12/31/2019 [facility] [address] [place], [place] [address] [phone] White Blood Count 13.4 10 High 4.0-10.0 [...] 36.0-66.0 Lymph % 15.3 % Low 24.0-44.0 Mcdonald % 9.4 % High 0.0-5.0 Eos % 3.4 % High 0.0-3.0 Baso % 0.5 % Normal 0.0-1.0 Immature Granulocyte % 0.4 % Normal 0-3.0 Nucleated Red Blood Cell % 0.0 % Normal 0-0 Neutrophils # 9.5 10 High 1.5-8.5 Lymph # 2.0 10 Normal 1.5-5.0 Mcdonald # 1.3 10 High 0.0-0.8 Eos # 0.5 10 Normal 0.0-0.5 Baso # 0.1 10 Normal 0.0-0.2 Laboratory test finding 12/31/2019 [facility] [address] [place] [address] [phone] iSTAT Troponin 0.00 NG/ML Normal 0.00-0.08 Complete Blood Count 12/19/2019 [place] [facility] [employer] [employer] Distributor: [place] [address] [phone] WBC 10.8 x10*3/UL 4.1 - 10.9 RBC [...] 2.0 - 7.8 Laboratory test finding 12/19/2019 [place] [facility] [employer] Distributor: [place] [address] [phone] Sed Rate 55 mm/hr High 0 - 15 Comprehensive Chem Profile 12/19/2019 [place] [facility] [employer] Distributor: [place] [address] [phone] Glucose 100 mg/dL High 74 - 99 [...] mL/min Low >60 19 Lipid Profile 12/19/2019 [facility] [employer] Distributor: [place] [address] [phone] Cholesterol 109 mg/dL Low 131 - 200 [...] LITTLE GFR LEFT ESRD GFR <15 ON ZOO VETERINARIAN 3 Units are mL/min/1.73 m2 Chronic Kidney Disease Staging per NKF: Stage I & II GFR >=60 Normal to Mildly Decreased Stage III GFR 30-59 Moderately Decreased Stage IV GFR 15-29 Severely Decreased Stage V GFR <15 Very Little GFR Left ESRD GFR <15 on ZOO VETERINARIAN 4 THE CEA ASSAY IS PERFORMED O N THE ihijiAUR BY CHEMILUMINESCENCE AND SHOULD NOT BE COMPARED [...] up testing of positive sera with both LA- 3 and MPO-ANCA enzyme immunoassays. As m [...] r research purposes only by the assay's automotive specialty technician. The performance characteristics of this product have not been established. Results should not be used as a diagnostic procedure without confirmation of the diagnosis by another medically established diagnostic product or procedure. Performed at: [address] [id number] 61 [employer] Distributor: Trevin Hardin MD, Phone: [phone] Troponin I Reference Interva l for [employer] [place] LOCI: 99th Percentile= 0.00-0.045 ng/ml Risk Stratification: [...] Little GFR Left ESRD GFR <15 on ZOO VETERINARIAN 12 DIAGNOSIS CRITERIA MMB ng/ml Relative Index [...] LITTLE GFR LEFT ESRD GFR <15 ON ZOO VETERINARIAN Procedures Date Code Description Status 02/25/2020 [id number] Diabetic Retinal Eye Exam Comple bertram 09/13/2018 [id number] Diabetic Retinal Eye Exam Comple bertram 06/22/2018 [id number] Colonoscopy Completed 11/23/2015 [id number] Mammogram Completed 10/24/2014 [id number] Mammogram Completed 11/19/2013 [id number] Colonoscopy Completed 05/15/2012 [id number] Mammogram Completed 01/24/2011 [id number] Mammogram Completed 04/01/2010 [id number] Colonoscopy Completed Medical Devices Description No Information Available Encounters Type Date Location Provider Dx Diagnosis Office Visit 12/19/2019 2:00p [facility] Kaylene Rain ,DO M06.4 Inflammatory polyarthropathy J44.9 Chronic obstructive pulmonar y disease, unspecified G89.29 Other chronic pain N18.3 Chronic kidney disease, stag e 3 (moderate) I25.5 Ischemic cardiomyopathy I73.9 Peripheral vascular disease, unspecified G25.81 Restless legs syndrome D50.9 Iron deficiency anemia, unsp ecified I10 Essential (primary) hyperten mando E78.00 Pure hypercholesterolemia, u nspecified Assessments Date Code Description Provider 05/26/2020 G89.29 Other chronic pain Loco Brumfield O 05/26/2020 J44.9 Chronic obstructive pulmonary di sease, unspecified Kaylene Rain,DO 05/26/2020 G25.81 Restless legs syndrome Kaylene juarez,DO 05/26/2020 I10 Essential (primary) hypertension Kaylene Rain,DO 05/26/2020 N18.30 Chronic kidney disease, stage 3 unspecified Kaylene Rain,DO 05/26/2020 M06.4 Inflammatory polyarthropathy Humphrey ra Rain,DO 05/26/2020 I25.5 Ischemic cardiomyopathy Kaylene marins,DO 05/26/2020 D50.9 Iron deficiency anemia, unspecif ied Kaylene Rain,DO 05/26/2020 F17.210 Nicotine dependence, cigarettes, uncomplicated Kaylene Rain,DO 05/26/2020 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 Kaylene Rain, DO 05/26/2020 M79.7 Fibromyalgia Kaylene Rain,DO 05/26/2020 F41.0 Panic disorder [episodic paroxys mal anxiety] Kaylene Rain,DO 05/26/2020 Z86.73 Personal history of transient ischemic attack (TIA), and cerebral infarction without residual deficits Kaylene Rain,DO 04/08/2020 J44.9 Chronic obstructive pulmonary di sease, unspecified Kaylene Rain,DO 04/08/2020 G89.29 Other chronic pain Kaylene Rain,D O 04/08/2020 G25.81 Restless legs syndrome Kaylene juarez,DO 04/08/2020 I10 Essential (primary) hypertension Kaylene Rain,DO 03/13/2020 N18.3 Chronic kidney disease, stage 3 (moderate) Kaylene Rain,DO 03/13/2020 N18.3 Chronic kidney disease, stage 3 (moderate) Lab Schedule 01/31/2020 J44.9 Chronic obstructive pulmonary di sease, unspecified Kaylene Rain,DO 01/31/2020 G89.29 Other chronic pain Kaylene Koffi,D O 01/31/2020 N18.3 Chronic kidney disease, stage 3 (moderate) Kaylene Rain,DO 01/31/2020 G25.81 Restless legs syndrome Kaylene juarez,DO 01/24/2020 M25.50 Pain in unspecified joint Kaylene Rain,DO 01/24/2020 M25.50 Pain in unspecified joint Lab Sc hedule 12/30/2019 J44.9 Chronic obstructive pulmonary di sease, unspecified Kaylene Rain,DO 12/30/2019 G89.29 Other chronic pain Kaylene Koffi,D O 12/30/2019 N18.3 Chronic kidney disease, stage 3 (moderate) Kaylenejerrell Rain,DO 12/30/2019 G25.81 Restless legs syndrome Kaylene juarez,DO 12/19/2019 M06.4 Inflammatory polyarthropathy Milagro Rain,DO 12/19/2019 J44.9 Chronic obstructive pulmonary di sease, unspecified Kaylene Rain,DO 12/19/2019 G89.29 Other chronic pain Kaylene Rain,D O 12/19/2019 N18.3 Chronic kidney disease, stage 3 (moderate) Kaylene Rain,DO 12/19/2019 I25.5 Ischemic cardiomyopathy Kaylene Stacy ggs,DO 12/19/2019 I73.9 Peripheral vascular disease, uns pecified Kaylene Rain,DO 12/19/2019 G25.81 Restless legs syndrome Kaylene Abisai juarez,DO 12/19/2019 D50.9 Iron deficiency anemia, unspecif ied Kaylene Rain,DO 12/19/2019 I10 Essential (primary) hypertension Kaylene Rain, 12/19/2019 E78.00 Pure hypercholesterolemia, unspe cified Kaylene Rain DO Plan of Treatment Future Appointment(s):* 11/23/2020 1:00 pm - Kaylene Rain DO at [facility] 05/26/2020 - Kaylene Rain DO* [...] to Reason for Referral Status Appt Date [facility] Chest CT Screening Program CT EARLY CANCER LUNG SCREENING EX AM Sent [address] [place] [address] [phone] [facility] Hematology/Oncology [employer] SUPERVISOR CONSULT FOR POSSIBLE OCCULT JAYME FONTANA Patient Notified 03/24/2020 [address] [place] [address] [phone]
--- OUTSIDE RECORDS SUMMARY | 2020-07-20 12:25 | CCD ---
Author Author [facility] Organization [facility] Address Unknown Phone Unavailable Care Team Providers Care Interpretative Dancer Name Role Phone Alexandra Pang Unavailable PROBLEMS Type Condition ICD9-CM Code AEB18-MD Code Onset Dates Condition S tatus SNOMED Code Notes Problem Vasculitis I77.6 Active 90338716 Problem Lumbar spondylosis M47.816 Active 518154091 Problem Fibromyalgia M79.7 Active 984657556 ALLERGIES No Known Allergies ENCOUNTERS from 1945 to 2020-06-08 Encounter Location Date Provider Diagnosis [facility]umatology [address] [place] [address] Jun, Alexandra Pang Vasculitis I77.6 ; Rheumatoid factor pos itive R76.8 ; Lumbar spondylosis M47.816 and Fibromyalgia M79.7 IMMUNIZATIONS No Information SOCIAL [...] FOR REFERRAL No Information VITAL SIGNS Weight 161.0 lbs Jun, Weight-kg 73.0 kg Jun, Height 64 in Jun, BMI 27.63 kg/m2 Jun, Heart Rate 64 /min Jun, Respiratory Rate 18 /min Jun, Temperature 97.8 degrees Fahrenheit Jun, Oximetry 100% Jun, Blood pressure systolic 124 mm Hg Jun, Blood pressure diastolic 66 mm Hg Jun, MEDICATIONS Medication SIG (Take, [...] May, A ctive PROCEDURES No Information RESULTS REASON FOR VISIT follow up MEDICAL (GENERAL) HISTORY Type Description Date Medical History Acute Bronchitis Medical History Chronic Pain Medical History Chronic Obstructive Lung Disease Medical History Restless Leg Syndrome Medical History Fibromyalgia Medical History Orthostatic Hypotension Surgical History hysterectomy Surgical History tonsillectomy Surgical History angiogram Surgical History "stomach reconstruction" Surgical History stent placement Hospitalization History stent placement 2019 Goals Section No Information Health Concerns No Information MEDICAL EQUIPMENT No Information MENTAL STATUS No Information FUNCTIONAL STATUS No Information ASSESSMENTS Encounter Date Diagnosis Assessment Notes Treatment Notes Treatm ent Clinical Notes Jun, Vasculitis (ICD-10 - I77.6) The lower extremity rash seems to be vasculitic. Not clear to me if this is a systemic vasculitis affecting other organ systems or more of a limited cutaneous issue. I need to get more information including the skin biopsy results. Additional lab tests need to be obtained today. I'm referring her back to neurology for lower extremity EMG/nerve conduction. Additional testing that she might need could include muscle and nerve biopsy. Not clear if she could have any further angiographic studies like MRI angiogram of the abdominal vasculature with her elevated creatinine. Alternatively, she may need empiric treatment with a drug like azathioprine or CellCept. She will follow up in 2-3 weeks to review test results. Jun, Rheumatoid factor positive (ICD-10 - R76.8) Rheumatoid factor was previously reportedly positive though I could not find a record of that. Clinically she doesn't have any evidence of RA joint disease. Positive rheumatoid factor is most likely an indicator that the immune system is activated, a nonspecific result. I will order some specific tests in relation to positive rheumatoid factor including cryoglobulins and Sjogren's antibodies. Jun, Lumbar spondylosis (ICD-10 - M47.816) She has chronic back pain which is related to mechanical issues, this does not appear to be an autoimmune problem. She should continue to follow this up with pain management. Jun, Fibromyalgia (ICD-10 - M79.7) She has significant chronic pain secondary to fibromyalgia, but some of her lower extremity pain may be related to vasculitic inflammation. Jun, Other Patient instructions: I think this rash is caused by an autoimmune disease that's causing inflammation in your system. Continue the Plaquenil, that's a helpful drug for you to be on, but we may need to add additional medications. Lab tests today. We will refer you back to your neurologist Dr. Tan for nerve conduction tests of the lower extremities. Staff : The patient's neurologist is Dr. Tan - please refer back to him for E MG/nerve conduction lower extremities? Vasculitis please see if he can do this CHEIKH. Also, please continue to try to work on obtaining skin biopsy report both from [facility]. Follow-up visit 2-3 weeks PLAN OF TREATMENT Treatment Notes Assessment Notes Clinical Notes Vasculitis The lower extremity rash see ms to be vasculitic.Not clear to me if this is a systemic vasculitis affecting other organ systems or more of a limited cutaneous issue.I need to get more information including the skin biopsy results.Additional lab tests need to be obtained today.I'm referring her back to neurology for lower extremity EMG/nerve conduction.Additional testing that she might need could include muscle and nerve biopsy. Not clear if she could have any further angiographic studies like MRI angiogram of the abdominal vasculature with her elevated creatinine.Alternatively, she may need empiric treatment with a drug like azathioprine or CellCept.She will follow up in 2-3 weeks to review test results. Rheumatoid factor positive Rheumatoid factor was previ ously reportedly positive though I could not find a record of that.Clinically she doesn't have any evidence of RA joint disease.Positive rheumatoid factor is most likely an in dicator that the immune system is activated, a nonspecific result.I will order some specific tests in relation to positive rheumatoid factor including cryoglobulins and Sjogren's antibodies. Lumbar spondylosis She has chronic back pain wh ich is related to mechanical issues, this does not appear to be an autoimmune problem.She should continue to follow this up with pain management. Fibromyalgia She has significant chronic pain secondary to fibromyalgia, but some of her lower extremity pain may be related to vasculitic inflammation. Treatment Notes Test Name Order Date C REACTIVE PROTEIN QUANTITATIV (At [facility]) 2020-06-08 CPK CREATINE PHOSPHOKINASE 2020-06-08 HEPATITIS B SURFACE ANTIGEN 2020-06-08 Lupus Anticoagulant with RFX Send Out ONLY 2020-06-08 ERYTHROCYTE SEDIMENTATION RATE 2020-06-08 HEPATITIS C ANTIBODY INDEX 2020-06-08 TOTAL PROTEIN,RANDOM URINE 2020-06-08 COMPLEMENT C4 2020-06-08 ANTI-SJOGRENS A&B ANTIBODIES 2020-06-08 LAKESHA TITER & PATTERN 2020-06-08 COMPLEMENT C3 2020-06-08 HEPATITIS B CORE ANTIBODY IGG 2020-06-08 CREATININE,RANDOM URINE 2020-06-08 ANTI-CARDIOLIPIN ANTIBODIES 2020-06-08 CRYOGLOBULINS 2020-06-08 BETA-2 GLYCOPROTEIN 1 LEANN ROBERT 2020-06-08 IgG SUBCLASS 4 2020-06-08 RHEUMATOID FACTOR QUANT 2020-06-08 Next Appt Details 2-3 weeks Reason: Provider Name:Brigida Gonzalez, 2020-06-16 01:00:00 PM, [address] [place], [address], Provider Name:Alexandra Pang, 2020-06 01:00:00 PM, [address] [place], [address], Insurance Providers Payer Name Payer Address Payer Phone Insured Name Patient Relati onship to Insured Coverage Start Date Coverage End Date MEDICARE Part A and B [address] [facility] [address] MAHESH AQUINO self [facility]ICA[facility] [address] [facility] [id number] MAHESH AQUINO self
--- OUTSIDE RECORDS SUMMARY | 2020-07-20 12:25 | CCD ---
Author Author [facility] Organization [facility] Address Unknown Phone Unavailable Care Team Providers Care Director Park Name Role Phone Jaun Pangy Unavailable PROBLEMS Type Condition ICD9-CM Code [id number] Code Onset Dates Condition S tatus SNOMED Code Notes Problem Vasculitis I77.6 Active 86455509 Problem Lumbar spondylosis M47.816 Active 354776355 Problem Fibromyalgia M79.7 Active 056281642 ALLERGIES No Known Allergies ENCOUNTERS from 1945 to 2020-06-09 Encounter Location Date Provider Diagnosis [facility] [address] [place] [address] Jun, Alexandra Pang IMMUNIZATIONS No Information SOCIAL HISTORY Tobacco Use: [...] Information RESULTS No Results REASON FOR VISIT right foot pain MEDICAL (GENERAL) HISTORY Type Description Date Medical [...] Details Provider Name:Brigida Gonzalez, 2020-06-16 01:00:00 PM, [address] [place] [address], [id number], Provider Name:Alexandra Pang, 2020-06 01:00:00 PM, [address] [place] [address], [address], Insurance Providers Payer Name Payer Address Payer Phone Insured Name Patient Relati onship to Insured Coverage Start Date Coverage End Date MEDICARE Part A and B [address] [facility] [phone] MAHESH AQUINO self MEDICAID [employer] [address] [facility] [id number] MAHESH AQUINO self
--- OUTSIDE RECORDS SUMMARY | 2020-07-20 12:26 | CCD ---
Author Author [employer] Organization [employer] Address Unknown Phone Unavailable Care Team Providers Care Studio Technician Video Operator Name Role Phone Brigida Gonzalez Unavailable PROBLEMS Type Condition ICD9-CM Code FIB25-AX Code Onset Dates Condition S tatus SNOMED Code Notes Problem Fibromyalgia M79.7 Active 883587235 ALLERGIES No Known Allergies ENCOUNTERS from 1945 to 2020-05-22 Encounter Location Date Provider Diagnosis [facility] [address] [place] [address] May, Brigida Gonzalez IMMUNIZATIONS No Information SOCIAL HISTORY [...] Notes Start Da te End Date Status Ventolin HFA 108 (90 Base) MCG/ACT 1 puff as needed Inhalation ever y 4 hrs Active Furosemide 20 MG 1 tablet Orally Once a day for 30 day(s) Active Alprazolam 0.5 MG 1 tablet Orally Twice a day Active Losartan Potassium 50 MG 1 tablet Orally Once a day for 30 day(s) Active Symbicort 160-4.5 MCG/ACT 2 puffs Inhalation Twice a day Active Colace 100 MG 1 capsule as needed Orally Once a day for 30 day(s) Active Gabapentin 300 MG 1 capsule Orally Once a day for 30 day(s) Active Ferrous Gluconate 324 (38 Fe) MG 1 tablet with water o r juice between meals Orally Once a day for 30 day(s) Active Atorvastatin Calcium 80 MG 1 tablet Orally Once a day for 30 day(s) Active Triamcinolone Acetonide 0.1 % 1 application Externally Twice a day to legs ( avoid biopsy site) for 14 days May, A ctive Levocetirizine Dihydrochloride 5 MG 1 tablet in [...] Nitrostat 0.4 MG as directed Sublingual Active RA Aspirin Adult Low Strength 81 MG 1 tablet Orally Once a day f or 30 day(s) Active Mometasone Furoate 0.1 % 1 application Externally Once a day Active Singulair 10 MG 1 tablet Orally Once a day for 30 day(s) Active Famotidine 40 MG/5ML as directed Orally Active Metoprolol Tartrate 25 MG 1 tablet with food Orally Twice a day for 30 day(s) Active Triamcinolone Acetonide 0.1 % 1 application Externally Twice a day for Two weeks May, Active Tramadol HCl 50 MG 1 tablet as needed Orally Once a day Active Zovirax 5 % 1 application every 3 hours Externally Six times a day Active PROCEDURES No Information RESULTS No Results REASON FOR VISIT No Information MEDICAL (GENERAL) HISTORY Type Description Date Medical [...] Information ASSESSMENTS No Information PLAN OF TREATMENT Medication Medication Name Sig Start Date Stop Date Levocetirizine Dihydrochloride 5 MG 1 tablet in the evening Oral ly Once a day Triamcinolone Acetonide 0.1 % 1 application Externally Twice a day for Two weeks May, Next Appt Details Provider Name:Brigida Gonzalez, 2020-06-16 01:00:00 PM, [address] [place], [address], Insurance Providers Payer Name Payer Address Payer Phone Insured Name Patient Relati onship to Insured Coverage Start Date Coverage End Date MEDICARE Part A and [address] [facility] [phone] MAHESH AQUINO self
--- OUTSIDE RECORDS SUMMARY | 2020-07-20 12:26 | CCD | Continuity of Care Document ---
Author Author Carrie RAIN Organization Unknown Address [phone] [address] Phone [phone] Care Team Providers Care Beamer Operator Name Role Phone Gui Pineda MD AUTM [phone] Kaylene Rain DO AUTM Unavailable Cruzito Tan MD AUTM [phone] [facility] AUTM [phone] Problems Active Problems Provider Date Acute bronchitis [...] Kaylene Rain,DO 12/26/2018 Fluticasone Propionate 50mcg/Act Suspension [place] 2 Sprays In Each Nostril Every Morning as Needed 16units Dasia Garcia,[facility] 12/13/2018 Mometasone Furoate 0.1% Cream Apply To [...] By Mouth Every Day 30tabs Dia Newsome, ORDER BUILDER LOADER 0 01/06/[address] Duloxetine HCL 60mg Caps DR Part Take One Capsule By Mouth Twice A Day 180caps Kaylene Rain,DO 01/2016 Colace 100mg Capsules take one capsule by mouth twice a day 60caps Kaylene Rain,DO 09/17/2014 Alprazolam 0.5mg Tablets 1 by mouth every day at at bedtime as needed 30tabs F41.1 Kaylene Rain,DO 05/03 Nitrostat 0.4mg Tablets Sub one under [...] Date Facility Test Result H/L Range Note CBC With Differential 04/29/2020 [facility] [address] [place] [address] [phone] White Blood Count 12.1 10 High 4.0-10.0 [...] 36.0-66.0 Lymph % 22.4 % Low 24.0-44.0 Butts % 7.9 % High 0.0-5.0 Eos % 6.0 % High 0.0-3.0 Baso % 0.7 % Normal 0.0-1.0 Immature Granulocyte % 0.3 % Normal 0-3.0 Nucleated Red Blood Cell % 0.0 % Normal 0-0 Neutrophils # 7.6 10 Normal 1.5-8.5 Lymph # 2.7 10 Normal 1.5-5.0 Butts # 1.0 10 High 0.0-0.8 Eos # 0.7 10 High 0.0-0.5 Baso # 0.1 10 Normal 0.0-0.2 Comprehensive Metabolic Profil 04/29/[address] [address] [phone] Glucose, Fasting 86 mg/dL Normal 70-100 Blood Urea Nitrogen 14 mg/dL Normal 7-18 Creatinine For GFR 1.68 mg/dL High 0.55-1.30 Glomerular Filtration Rate 31.8 Low >39 1 Sodium Level 140 mEq/L Normal 136-145 Potassium [...] 0.8 Low 1.2-2.2 Laboratory test finding 04/29/[address] [address] [phone] Carcinoembryonic Antigen 4.0 NG/ML High <2.5 2 Laboratory test finding 03/13/2020 [facility] tia aly Cemetery Warden: [place] [address] [phone] Sed Rate 41 mm/hr High 0 - 15 Anti-Neutrophil Cytoplasmic AB 03/13/[address] [address] [phone] Cytoplasmic Neutrop AB Anca-C <1:20 titer Normal N eg:<1:20 Perinuclear AB Anca-P <1:20 titer Normal Neg:<1:20 3 Anca-Atypical <1:20 titer Normal Neg:<1:20 4 Serum Protein Electrophoresis 03/13/[address] [address] [phone] Albumin % 53.1 % Low 55.8-66.1 Trzri-1-Hccnotnx % 5.2 % High 2.9-4.9 Izsnq-9-Ecalbinlb % 14.0 % High 7.1-11.8 Uwrf-3-Nxyvhefzw % 7.2 % Normal 4.7-7.2 Nmnn-2-Kvubtmgyq % 6.6 % High 3.2-6.5 Gamma Globulin % 13.9 % Normal 11.1-18.8 Albumin 3.66 GM/DL Normal 3.29-5.55 Kbcfv-0-Mdakyfujl 0.36 GM/DL Normal 0.17-0.41 Xqpjo-9-Eufpygbeh 0.97 GM/DL Normal 0.42-0.99 Njxy-8-Nmufunmix 0.50 GM/DL Normal 0.28-0.60 Nign-8-Ebwyryrjb 0.46 GM/DL Normal 0.19-0.55 Gamma Globulins 0.96 GM/DL Normal 0.65-1.58 Total Protein 6.9 GM/DL Normal 6.4-8.2 Spep Interpretation SEE COMMENT Normal 5 Spep Pathologist Review REV'D BY O ADJAP <SEE NOTE> Normal 6 Laboratory test finding 03/13/[address] [address] [phone] Phospholipids Level 151 mg/dL Normal 150-250 7 Laboratory test finding 02/01/2020 [facility] [address] [place] [address] [phone] Troponin I < 0.02 NG/ML Normal < 0.10 8 Lipase 80 U/L Normal 73-393 Thyroid Stimulating Hormone 0.753 uIU/ML Normal 0.358-3.740 Free T4 0.90 ng/dL Normal 0.76-1.46 Basic Metabolic Profile 02/01/2020 [facility] [address] [place] [address] [phone] Glucose, Fasting 103 mg/dL High 70-100 Blood Urea Nitrogen 10 mg/dL Normal 7-18 Creatinine For GFR 1.34 mg/dL High 0.55-1.30 Glomerular Filtration Rate 41.3 Normal >39 9 Sodium Level 138 mEq/L Normal 136-145 Potassium Serum 4.4 mEq/L Normal 3.5-5.1 Chloride Level 107 mEq/L Normal 98-107 Carbon Dioxide Level 27 mEq/L Normal 21-32 Anion Gap 4 mEq/L Low 8-16 Calcium Level 8.5 mg/dL Low 8.8-10.2 Liver Profile 02/01/2020 [facility] nter [address] [place] [address] [phone] Ast/Sgot 11 U/L Normal 7-37 Alt/SGPT 11 U/L Low 12-78 Alkaline Phosphatase 101 U/L Normal 45-117 Bilirubin,Total 0.1 mg/dL Low 0.2-1.0 Bilirubin,Direct < 0.1 mg/dL Normal 0.0-0.2 Total Protein 7.0 GM/DL Normal 6.4-8.2 Albumin 3.0 GM/DL Low 3.2-5.2 Albumin/Globulin Ratio 0.8 Low 1.2-2.2 Cardiac Injury Profile 02/01/[address] [address] [phone] CPK Creatine Phosphokinase 60 U/L Normal 26-19 2 CK-MB Value Mass < 1.0 NG/ML Normal <3.6 MB/CK Relative Index 1.67 Normal < Or =4 10 CBC With Differential 02/01/[address] [address] [phone] White Blood Count 9.8 10 Normal 4.0-10.0 [...] 36.0-66.0 Lymph % 28.3 % Normal 24.0-44.0 Butts % 8.8 % High 0.0-5.0 Eos % 5.8 % High 0.0-3.0 Baso % 0.7 % Normal 0.0-1.0 Immature Granulocyte % 0.3 % Normal 0-3.0 Nucleated Red Blood Cell % 0.0 % Normal 0-0 Neutrophils # 5.5 10 Normal 1.5-8.5 Lymph # 2.8 10 Normal 1.5-5.0 Butts # 0.9 10 High 0.0-0.8 Eos # 0.6 10 High 0.0-0.5 Baso # 0.1 10 Normal 0.0-0.2 PT & Aptt 02/01/2020 [facility] nter [address] [place] [address] [phone] Prothrombin Time 13.2 seconds Normal 11.8-14.0 Inr 0.99 Normal 11 Partial Thromboplastin Time 30.2 seconds Normal 25.0-38.4 Laboratory test finding 01/24/2020 [facility] Cemetery Warden: [place] [address] [phone] Sed Rate 54 mm/hr High 0 - 15 Istat Chem8+ Panel 12/31/2019 [facility] nter [address] [place] [address] [phone] iSTAT HCT 31.0 % Low 38.0-51.0 iSTAT Glucose 122 mg/dL High 70-105 iSTAT Sodium 138 mEq/L Normal 136-145 iSTAT Potassium 3.8 mEq/L Normal 3.5-5.1 iSTAT CA++ 4.6 mg/dL Normal 4.5-5.3 iSTAT Chloride 104 mEq/L Normal 98-109 iSTAT Co2 20.0 MM/L Low 23.0-27.0 iSTAT BUN 9 mg/dL Normal 8-26 iSTAT Creatinine 1.3 mg/dL Normal 0.6-1.3 CBC With Differential 12/31/[address] [address] [phone] White Blood Count 13.4 10 High 4.0-10.0 [...] 36.0-66.0 Lymph % 15.3 % Low 24.0-44.0 Butts % 9.4 % High 0.0-5.0 Eos % 3.4 % High 0.0-3.0 Baso % 0.5 % Normal 0.0-1.0 Immature Granulocyte % 0.4 % Normal 0-3.0 Nucleated Red Blood Cell % 0.0 % Normal 0-0 Neutrophils # 9.5 10 High 1.5-8.5 Lymph # 2.0 10 Normal 1.5-5.0 Butts # 1.3 10 High 0.0-0.8 Eos # 0.5 10 Normal 0.0-0.5 Baso # 0.1 10 Normal 0.0-0.2 Laboratory test finding 12/31/[address] [address] [phone] iSTAT Troponin 0.00 NG/ML Normal 0.00-0.08 Complete Blood Count 12/19/2019 [facility] Cemetery Warden: [place] [address] [phone] WBC 10.8 x10*3/UL 4.1 - 10.9 RBC 3.41 x10*6/UL Low 4.20 - 6.30 Hemoglobin 9.7 g/dL Low 12.0 - 18.0 12 Hematocrit 30.3 % Low 37.0 - 51.0 [...] 2.0 - 7.8 Laboratory test finding 12/19/2019 [facility] Cemetery Warden: [place] [address] [phone] Sed Rate 55 mm/hr High 0 - 15 Comprehensive Chem Profile 12/19/2019 [facility] Warden: [place] [address] [phone] Glucose 100 mg/dL High 74 - 99 13 BUN 11 mg/dL 7 - 18 Creatinine 1.5 mg/dL High 0.6 - 1.3 14 Sodium 138 mEq/L 136 - 145 Potassium 4.5 mEq/L 3.5 - 5.1 Chloride 104 mEq/L 98 - 107 Carbon Dioxide 27 mEq/L 21 - 32 Calcium 8.0 mg/dL Low 8.5 - 10.1 15 Alk. Phosphatase 96 mg/dL 46 - 116 Total Bilirubin 0.2 mg/dL Low 0.2 - 1.0 Ast (Sgot) 10 U/L Low 15 - 37 Alt (SGPT) 14 U/L 12 - 78 Albumin 2.7 g/dL Low 3.4 - 5.0 16 Total Protein 7.1 g/dL 6.4 - 8.2 A/G Ratio 0.61 CALC Low 1.00 - 1.90 GFR 34 mL/min Low >60 GFR 41 mL/min Low >60 17 Lipid Profile 12/19/2019 [facility] , Cemetery Warden: Dr Sai Pascal [place], [place] [address] [phone] Cholesterol 109 mg/dL Low 131 - 200 Triglycerides 93 mg/dL 30 - 150 HDL Cholesterol 52 mg/dL 35 - 60 LDL (Calculated) 38 CALC Low 50 - 159 1 Units are mL/min/1.73 m2 Chronic Kidney Disease Staging per NKF: Stage I & II GFR >=60 Normal to Mildly Decreased Stage III GFR 30-59 Moderately Decreased Stage IV GFR 15-29 Severely Decreased Stage V GFR <15 Very Little GFR Left ESRD GFR <15 on COAT PADDER 2 THE CEA ASSAY IS PERFORMED O N THE [employer] BY CHEMILUMINESCENCE AND SHOULD NOT BE COMPARED INTERCHANGEABLY WITH OTHER METHODS. IT SHOULD NOT BE USED ALONE A SCREENING TEST OR DIAGNOSIS FOR THE PRESENCE OR ABSENCE OF MALIGNANT DISEASE. PREDICTIONS OF DISEASE RECURRENCE SHOULD NOT BE BASED SOLELY ON VALUES OBTAINED FROM SERIAL PATIENT SERUM VALUES. 3 The presence of positive flu orescence exhibiting P-ANCA or C-ANCA patterns alone is not specific for the diagnosis of Carmen's Granulomatosis (WG) or microscopic polyangiitis. Decisions about treatment should not be based solely on ANCA IFA results. The International ANCA Group Consensus recommends follow up testing of positive sera with both MI- 3 and MPO-ANCA enzyme immunoassays. As m any as 5% serum samples are positive only by EIA. Ref. AM J Clin Pathol 1999;111:507-513. 4 The atypical pANCA pattern h as been observed in a significant percentage of patients with ulcerative colitis, primary sclerosing cholangitis and autoimmune hepatitis. 5 NO M-SPIKE(S)NOTED. 6 REV'D BY Samaria OLIVARES 7 Results for this test are fo r research purposes only by the assay's director presales. The performance characteristics of this product have not been established. Results should not be used as a diagnostic procedure without confirmation of the diagnosis by another medically established diagnostic product or procedure. Performed at: - [address], [place], [place] [address] 61 Cemetery Warden: Trevin Hardin MD, Phone: [phone] Troponin I Reference Interva l for Siemens Brinklow LOCI: 99th Percentile= 0.00-0.045 ng/ml Risk Stratification: <= 0.10 ng/ml Decreased Risk for Adverse Clinical Events. 0.10-1.50 ng/ml Increased Risk for Adv erse Clinical Events. Evaluation of additional criterion and/or repeat testing in 2-6 hours is suggested to rule out myocardial damage. >= 1.50 ng/ml Indicative of Myocardial Injury. 9 Units are mL/min/1.73 m2 Chronic Kidney Disease Staging per NKF: Stage I & II GFR >=60 Normal to Mildly Decreased Stage III GFR 30-59 Moderately Decreased Stage IV GFR 15-29 Severely Decreased Stage V GFR <15 Very Little GFR Left ESRD GFR <15 on COAT PADDER 10 DIAGNOSIS CRITERIA MMB ng/ml Relative Index (RI) NON-AMI < or = 5 N/A BLNAC ZONE > 5 < or = 4 AMI > 5 > 4 11 THERAPUTIC HUMAN INR VALUES INDICATIONS NORMAL RANGES PROPHYLAXIS/TREATMENT OF: VENOUS THROMBOSIS 2.0-3.0 PULMONARY EMBOLISM 2.0-3.0 PREVENTION OF SYSTEMIC EMBOLISM FROM: TISSUE HEART VALVES 2.0-3.0 ACUTE MYOCARDIAL INFARCTION 2.0-3.0 VALVULAR HEART DISEASE 2.0-3.0 ATRIAL FIBRILLATION 2.0-3.0 MECHANICAL VALVES(HIGH RISK) 2.5-3.5 RECURRENT MYOCARDIAL INFARCTION 2.5-3.5 12 NOTE: RESULT VERIFIED. 13 100-125 mg/dL PRE-DIABET ES/FASTING >126 mg/dL DIABETES/FASTING 14 NOTE: RESULT VERIFIED. 15 NOTE: RESULT VERIFIED. 16 NOTE: RESULT VERIFIED. 17 CHRONIC KIDNEY DISEASE STAGI NG PER NKF STAGE I & II GFR >= 60 NORMAL TO MILDLY DECREASED STAGE III GFR 30-59 MODERATELY DECREASED STAGE IV GFR 15-29 SEVERELY DECREASED STAGE V GFR <15 VERY LITTLE GFR LEFT ESRD GFR <15 ON COAT PADDER Procedures Date Code Description Status 02/25/2020 [id number] Diabetic Retinal Eye Exam Comple bertram 09/13/2018 [id number] Diabetic Retinal Eye Exam Comple bertram 06/22/2018 [id number] Colonoscopy Completed 11/23/2015 [id number] Mammogram Completed 10/24/2014 [id number] Mammogram Completed 11/19/2013 [id number] Colonoscopy Completed 05/15/2012 [id number] Mammogram Completed 01/24/2011 [id number] Mammogram Completed 04/01/2010 [id number] Colonoscopy Completed Medical Devices Description No Information Available Encounters Type Date Location Provider Dx Diagnosis Office Visit 12/19/2019 2:00p [facility] Kaylene Rain ,DO M06.4 Inflammatory polyarthropathy J44.9 Chronic obstructive pulmonar y disease, unspecified G89.29 Other chronic pain N18.3 Chronic kidney disease, stag e 3 (moderate) I25.5 Ischemic cardiomyopathy I73.9 Peripheral vascular disease, unspecified G25.81 Restless legs syndrome D50.9 Iron deficiency anemia, unsp ecified I10 Essential (primary) hyperten mando E78.00 Pure hypercholesterolemia, u nspecified Assessments Date Code Description Provider 04/08/2020 J44.9 Chronic obstructive pulmonary di sease, unspecified Kaylene Rain,DO 04/08/2020 G89.29 Other chronic pain Loco Brumfield O 04/08/2020 G25.81 Restless legs syndrome Kaylene juarez,DO 04/08/2020 I10 Essential (primary) hypertension Kaylene Rain, 03/13/2020 N18.3 Chronic kidney disease, stage 3 (moderate) Kaylene Rain,DO 03/13/2020 N18.3 Chronic kidney disease, stage 3 (moderate) Lab Schedule 01/31/2020 J44.9 Chronic obstructive pulmonary di sease, unspecified Kaylene Rain,DO 01/31/2020 G89.29 Other chronic pain Loco Brumfield O 01/31/2020 N18.3 Chronic kidney disease, stage [...] Rain,DO 12/30/2019 G25.81 Restless legs syndrome Kaylene Barone larry,DO 12/19/2019 M06.4 Inflammatory polyarthropathy Milagro guajardo Koffi,DO 12/19/2019 J44.9 Chronic obstructive pulmonary di sease, unspecified Kaylene Rain,DO 12/19/2019 G89.29 Other chronic pain Kaylene Loco Rain O 12/19/2019 N18.3 Chronic kidney disease, stage 3 (moderate) Kaylene Rain,DO 12/19/2019 I25.5 Ischemic cardiomyopathy Kaylene marins,DO 12/19/2019 I73.9 Peripheral vascular disease, uns pecified Kaylene Rain,DO 12/19/2019 G25.81 Restless legs syndrome Kaylene Barone larry,DO 12/19/2019 D50.9 Iron deficiency anemia, unspecif ied Kaylene Rain,DO 12/19/2019 I10 Essential (primary) hypertension Kaylene Rain,DO 12/19/2019 E78.00 Pure hypercholesterolemia, unspe cified Kaylene Rain DO Plan of Treatment 05/26/2020 - Kaylene Rain DO* All * New Medication:* Mirapex 1 mg - take 2 tablet by mouth at night before bedtime Functional Status Description No Information Available Mental Status Description No Information Available Referrals Refer to Dr Reason for Referral Status Appt Date [facility] Chest CT Screening Program CT EARLY CANCER LUNG SCREENING EX AM Sent [address] [place] [address] [phone] [facility] Hematology/Oncology [employer] PROJECT MANAGER CONSULT FOR POSSIBLE OCCULT JAYME FONTANA Patient Notified 03/24/2020 [address] [place] [address] [phone]
--- OUTSIDE RECORDS SUMMARY | 2020-07-20 12:26 | CCD ---
Author Author [facility] Organization [facility] Address Unknown Phone Unavailable Care Team Providers Care Wire Weaver Helper Name Role Phone Brigida Gonzalez Unavailable PROBLEMS Type Condition ICD9-CM Code ZBT61-ND Code Onset Dates Condition S tatus SNOMED Code Notes Problem Fibromyalgia M79.7 Active [id number] ALLERGIES No Known Allergies ENCOUNTERS from 1945 to 2020-05-15 Encounter Location Date Provider Diagnosis [facility] [place] [address] [place] [address] 0 3 May, 2020 Brigida Gonzalez Rash R21 IMMUNIZATIONS No Information SOCIAL HISTORY Tobacco Use: [...] FOR REFERRAL No Information VITAL SIGNS Weight 158 lbs May, Height 64 in May, BMI 27.12 kg/m2 May, Blood pressure systolic 130 mm Hg May, Blood pressure diastolic 68 mm Hg May, MEDICATIONS Medication SIG (Take, Route, Frequency, Duration) Start Date En d Date Status Furosemide 20 MG 1 tablet Orally Once a day for 30 day(s) Active Triamcinolone Acetonide 0.1 % 1 application Externally Twice a day to legs ( avoid biopsy site) for 14 days May, Active Losartan Potassium 50 MG 1 tablet Orally Once a day for 30 day(s) Active Symbicort 160-4.5 MCG/ACT 2 puffs Inhalation Twice a day Active Tramadol HCl 50 MG 1 tablet as needed Orally Once a day Active Plavix 75 MG 1 tablet Orally Once a day for 30 day(s) Active Fluticasone Propionate 50 MCG/ACT 1 spray in each nost ril Nasally Once a day for 30 day(s) Active Atorvastatin Calcium 80 MG 1 tablet Orally Once a day for 30 day(s) Active Singulair 10 MG 1 tablet Orally Once a day for 30 day(s) Active Nitrostat 0.4 MG as directed Sublingual A ctive Alprazolam 0.5 MG 1 tablet Orally Twice a day Active Ferrous Gluconate 324 (38 Fe) MG 1 tablet with water o r juice between meals Orally Once a day for 30 day(s) Active Levocetirizine Dihydrochloride 5 MG 1 tablet in the ev ening Orally Once a day for 30 day(s) Active Duloxetine HCl 60 MG 1 capsule Orally Once a day for 30 day(s) Active Famotidine 40 MG/5ML as directed Orally A ctive Gabapentin 300 MG 1 capsule Orally Once a day for 30 day(s) Active Colace 100 MG 1 capsule as needed Orally Once a day for 30 day(s) Active Pantoprazole Sodium 40 MG 1 tablet Orally Once a day for 30 day(s) Active Ventolin HFA 108 (90 Base) MCG/ACT 1 puff as needed Inhalation ever y 4 hrs Active Metoprolol Tartrate 25 MG 1 tablet with food Orally Twice a day for 30 day(s) Active Zovirax 5 % 1 application every 3 hours Externally Six times a day Active Mometasone Furoate 0.1 % 1 application Externally Once a day Active RA Aspirin Adult Low Strength 81 MG 1 tablet Orally Once a day f or 30 day(s) Active PROCEDURES No Information RESULTS No Results REASON FOR VISIT Rash MEDICAL (GENERAL) HISTORY Type Description Date Medical [...] STATUS No Information ASSESSMENTS Encounter Date Diagnosis Notes May, Rash (ICD-10 - R21) PLAN OF TREATMENT Medication Medication Name Sig Start Date Stop Date Triamcinolone Acetonide 0.1 % 1 application Externally Twice a day to legs ( avoid biopsy site) for 14 days May, Treatment Notes Assessment Notes Clinical Notes Rash Scattered purpuric macules w ith telangiectasias on upper and lower extremities. Benign pigmented purpura vs vasculitis vs other 4mm punch biopsy today on right medial lower legProcedure: Punch Biopsy. [place] protocol was followed in compliance with [facility] standards. The patient was educated on the potential risks and benefits of the procedure and gave his/her informed consent. Area(s) treated with EtOH. Local anesthesia performed with <1mL of 1% lidocaine with epinephrine per site. Site(s) verified with patient via timeout utilizing patient''s name and date of . Biopsy/Biopsies performed. Dual site-specimen cup verification performed verbally between provider and clinic staff. Hemostasis achieved with hyfrecation or aluminum chloride. Photographs of biopsies scanned into the chart and documented in the physical exam. Closure: superficial interrupted 4-0 non-absorbable ethilon sutures. Petrolatum and bandage applied. Wound care instruction addressed with patient by provider or clinic staff and wound care handout given. Suture removal: patient was instructed with a date to return for suture removal. Patient tolerated the procedure well and left in stable condition. Pain reports that his/her pain was well-managed. There was no noted significant difference from baseline pain score after procedure. Patient was educated to use acetaminophen 500mg up to 4 times daily. If not sufficient, patient was educated to re-present to the dermatology clinic or, if after hours, the emergency department. Patient was informed they would be notified in 10-14 days by telephone for all malignant conditions and scheduled for definitive management. Next Appt Details 10-14 days sutures Reason: Insurance Providers Payer Name Payer Address Payer Phone Insured Name Patient Relati onship to Insured Coverage Start Date Coverage End Date MEDICARE Part A and B [address] [facility] [id number] [phone] MAHESH AQUINO self
--- OUTSIDE RECORDS SUMMARY | 2020-07-20 12:26 | CCD ---
Author Author [facility] Organization [facility] Address Unknown Phone Unavailable Care Team Providers Care Administrative Assistant Receptionist Name Role Phone Brigida Gonzalez Unavailable PROBLEMS Type Condition ICD9-CM Code [id number] Code Onset Dates Condition S tatus SNOMED Code Notes Problem Fibromyalgia M79.7 Active [id number] ALLERGIES No Known Allergies ENCOUNTERS from 1945 to 2020-05-25 Encounter Location Date Provider Diagnosis [facility] [place] [address] [place] [address] 1 7 May, 2020 Brigidarachel Palmaant Rash R21 and Visit for suture removal Z4 8.02 IMMUNIZATIONS No Information SOCIAL HISTORY Tobacco Use: [...] 65 in May, BMI 27.12 kg/m2 May, MEDICATIONS Medication SIG (Take, Route, Frequency, [...] Information RESULTS No Results REASON FOR VISIT s/r andrash MEDICAL (GENERAL) HISTORY Type Description Date Medical [...] Notes Treatment Notes Treatm ent Clinical Notes May, Rash (ICD-10 - R21) -Add hydroxyzine QHS -Check labs Was contacted by pharmacy regarding interaction between hydroxyzine and Plaquenil. Script for hydroxyzine was cancelled. Patient is already on Neurontin, levocetirizine, and topical steroid May, Visit for suture removal (ICD-10 - Z48.02) PLAN OF TREATMENT Medication Medication Name Sig Start Date Stop Date Levocetirizine Dihydrochloride 5 MG 1 tablet in the evening Oral ly Once a day Triamcinolone Acetonide 0.1 % 1 application Externally Twice a day for Two weeks May, Treatment Notes Assessment Notes Clinical Notes Rash -Add hydroxyzine QHS -Check labsWas contacted by pharmacy regarding interaction between hydroxyzine and Plaquenil. Script for hydroxyzine was cancelled. Patient is already on Neurontin, levocetirizine, and topical steroid Treatment Notes Test Name Order Date COMPLEMENT C3 2020-05-25 COMPLEMENT C4 2020-05-25 ERYTHROCYTE SEDIMENTATION RATE 2020-05-25 LAKESHA TITER & PATTERN 2020-05-25 C1Q Antibody 2020-05-25 Next Appt Details 4 Weeks Reason:rash follow up Provider Name:Brigida Gonzalez, 2020-06-16 01:00:00 PM, [address] [place], [address], Follow Up:4 Weeksrash follow up Insurance Providers Payer Name Payer Address Payer Phone Insured Name Patient Relati onship to Insured Coverage Start Date Coverage End Date MEDICARE Part A and B [address] [facility] [place] [phone] MAHESH AQUINO self
--- OUTSIDE RECORDS SUMMARY | 2020-07-20 12:26 | CCD | Continuity of Care Document ---
Author Author Carrie ARRIAZA PA Organization Unknown Address [address] [facility] [place] [address] Phone [phone] Care Team Providers Care Running Instructor Name Role Phone Kaylene Rain DO AUTM [phone] Maximo Rodriguez MD Unavailable Problems Active Problems [...] r Date Tramadol HCL 50mg Tablets Take 1-2 Tablets By Mouth Every 6 Hours as Needed For Pain, MDD 3 15tabs D. Abilio Acosta MD 04/08/2020 Tylenol With [...] Available Vital Signs Date Vital Result Comment 05/20/2020 5:42pm Body Temperature 96.0 F 06/13/2019 3:45pm Height 64 inches 5'4" Weight 149.00 lb BMI (Body Mass Index) 25.6 kg/m2 Results Description No Information Available Procedures Date Code Description Status 01/28/2020 41898 X-Ray Spine Lumbosacral Ap & Lat eral 2-3 Views Completed 12/16/2019 97303 X-Ray Spine Lumbosacral Ap & Lat eral 2-3 Views Completed 12/02/2019 15536 FX CL Vertebral Body Wi Cast/Bra ce Completed Medical Devices Description No Information Available Encounters Type Date Location Provider Dx Diagnosis Office Visit 04/28/2020 3:15p [place] ТАТЬЯНА Davalos M54.5 Low back pain M16.0 Bilateral primary osteoarthr itis of hip M70.61 Trochanteric bursitis, right hip M70.62 Trochanteric bursitis, left hip S32.040S Wedge compression fracture o f fourth lum vertebra, sequela Assessments Date Code Description Provider 05/20/2020 M54.5 Low back pain ТАТЬЯНА Davalos 05/20/2020 M16.0 Bilateral primary osteoarthritis of hip ТАТЬЯНА Davalos 05/20/2020 M70.61 Trochanteric bursitis, right hip ТАТЬЯНА Davalos 05/20/2020 M70.62 Trochanteric bursitis, left hip ТАТЬЯНА Davalos 05/20/2020 S32.040S Wedge compression fr acture of fourth lumbar vertebra, sequela ТАТЬЯНА Davalos 04/28/2020 M54.5 Low back pain Sha Arriaza, PA 04/28/2020 M16.0 Bilateral primary osteoarthritis of hip Sha Arriaza, PA 04/28/2020 M70.61 Trochanteric bursitis, right hip Sha IRonny Arriaaz, PA 04/28/2020 M70.62 Trochanteric bursitis, left hip Sha IRonny Arriaza, PA 04/28/2020 S32.040S Wedge compression fr acture of fourth lumbar vertebra, sequela Sha Arriaza, PA 03/04/2020 S32.040D Wedge compression fr acture of fourth lumbar vertebra, subsequent encounter for fracture with routine healing Sha Arriaza, PA 03/04/2020 M16.0 Bilateral primary osteoarthritis of hip Sha Arriaza, PA 03/04/2020 M70.61 Trochanteric bursitis, right hip Sha IRonny Arriaza, PA 03/04/2020 M70.62 Trochanteric bursitis, left hip Sha IRonny Arriaza, PA 03/04/2020 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, lumbar region Sha Arriaza, PA 03/04/2020 M51.36 Other intervertebral disc degene ration, lumbar region Sha Arriaza, PA 02/27/2020 S32.040D Wedge compression fr acture of fourth lumbar vertebra, subsequent encounter for fracture with routine healing Sha Arriaza, PA 01/28/2020 S32.040D Wedge compression fr acture of fourth lumbar vertebra, subsequent encounter for fracture with routine healing Sha IRonny Arriaza, PA 01/28/2020 R10.31 Right lower quadrant pain Sha I Ronny Arriaza, PA 01/28/2020 R10.32 Left lower quadrant pain Sha IRonny Arriaza, PA 12/16/2019 S32.040D Wedge compression fr acture of fourth lumbar vertebra, subsequent encounter for fracture with routine healing Sha IRonny Arriaza, PA 12/16/2019 M51.36 Other intervertebral disc degene ration, lumbar region Sha Arriaza, PA 12/02/2019 S32.040A Wedge compression fr acture of fourth lumbar vertebra, initial encounter for closed fracture Sha Arriaza, PA 12/02/2019 S32.040A Wedge compression fr acture of fourth lumbar vertebra, initial encounter for closed fracture ТАТЬЯНА Davalos 12/02/2019 M51.36 Other intervertebral disc degene ration, lumbar region ТАТЬЯНА Davalos 12/02/2019 M16.0 Bilateral primary osteoarthritis of hip ТАТЬЯНА Davalos Plan of Treatment 05/20/2020 - ТАТЬЯНА Davalos* M54.5 Low back pain * M16.0 Bilateral primary osteoarthritis of hip * M70.61 Trochanteric bursitis, right hip * M70.62 Trochanteric bursitis, left hip * S32.040S Wedge compression fracture of fourth lumbar vertebra, sequela* Follow up:* 4 weeks with IID for back recheck with xrays Functional Status Description No Information Available Mental Status Description No Information Available Referrals Refer to Reason for Referral Status Appt Date Sha Arriaza Pac PT BASED ON MED. [facility] TO PT DEPT. NT Closed [address] [place] [address] [address] [place] [address] [phone]
--- OUTSIDE RECORDS SUMMARY | 2020-07-20 12:28 | CCD ---
Author Author [facility] Organization [facility] Address Unknown Phone Unavailable Care Team Providers Care Bi Analyst Name Role Phone Koffi, Kaylene DO Unavailable Unavailable Koffi, Kaylene DO Unavailable Unavailable Koffi, Kaylene DO Unavailable Unavailable Koffi, Kaylene DO Unavailable Unavailable Koffi, Kaylene DO Unavailable Unavailable Koffi, Kaylene DO Unavailable Unavailable Koffi, Kaylene DO Unavailable Unavailable Koffi, Kaylene DO Unavailable Unavailable Koffi, Kaylene DO Unavailable Unavailable Koffi, Kaylene DO Unavailable Unavailable Koffi, Kaylene DO Unavailable Unavailable Koffi, Kaylene DO Unavailable Unavailable Koffi, Kaylene DO Unavailable Unavailable Koffi, Kaylene DO Unavailable Unavailable Koffi, Kaylene DO Unavailable Unavailable Koffi, Kaylene DO Unavailable Unavailable Koffi, Kaylene DO Unavailable Unavailable Koffi, Kaylene DO Unavailable Unavailable Koffi, Kaylene DO Unavailable Unavailable Koffi, Kaylene DO Unavailable Unavailable Koffi, Akylene DO Unavailable Unavailable Koffi, Kaylene DO Unavailable Unavailable Koffi, Kaylene DO Unavailable Unavailable Koffi, Kaylene DO Unavailable Unavailable Koffi, Kaylene DO Unavailable Unavailable Koffi, Kaylene DO Unavailable Unavailable Koffi, Kaylene DO Unavailable Unavailable Koffi, Kaylene DO Unavailable Unavailable Koffi, Kaylene DO Unavailable Unavailable Koffi, Kaylene DO Unavailable Unavailable Koffi, Kaylene DO Unavailable Unavailable Koffi, Kaylene DO Unavailable Unavailable Koffi, Kaylene DO Unavailable Unavailable Koffi, Kaylene DO Unavailable Unavailable Koffi, Kaylene DO Unavailable Unavailable Koffi, Kaylene DO Unavailable Unavailable Koffi, Kaylene DO Unavailable Unavailable Koffi, Kaylene DO Unavailable Unavailable Koffi, Kaylene DO Unavailable Unavailable Koffi, Kaylene DO Unavailable Unavailable Koffi, Kaylene DO Unavailable Unavailable Koffi, Kaylene DO Unavailable Unavailable Koffi, Kaylene DO Unavailable Unavailable Koffi, Kaylene DO Unavailable Unavailable Koffi, Kaylene DO Unavailable Unavailable Koffi, Kaylene DO Unavailable Unavailable Koffi, Kaylene DO Unavailable Unavailable Koffi, Kaylene DO Unavailable Unavailable Koffi, Kaylene DO Unavailable Unavailable Koffi, Kaylene DO Unavailable Unavailable Koffi, Kaylene DO Unavailable Unavailable Koffi, Kaylene DO Unavailable Unavailable Koffi, Kaylene DO Unavailable Unavailable Koffi, Kaylene DO Unavailable Unavailable Koffi, Kaylene DO Unavailable Unavailable Koffi, Kaylene DO Unavailable Unavailable Koffi, Kaylene DO Unavailable Unavailable Kofif, Kaylene DO Unavailable Unavailable Koffi, Kaylene DO Unavailable Unavailable Koffi, Kaylene DO Unavailable Unavailable Koffi, Kaylene DO Unavailable Unavailable Koffi, Kaylene DO Unavailable Unavailable Koffi, Kaylene DO Unavailable Unavailable Koffi, Kaylene DO Unavailable Unavailable Koffi, Kaylene DO Unavailable Unavailable Koffi, Kaylene DO Unavailable Unavailable Koffi, Kaylene DO Unavailable Unavailable Koffi, Kaylene DO Unavailable Unavailable Koffi, Kaylene DO Unavailable Unavailable Koffi, Kaylene DO Unavailable Unavailable Koffi, Kaylene DO Unavailable Unavailable Koffi, Kaylene DO Unavailable Unavailable Kocan, J Maria Elena HUB BANDER Unavailable Unavailable Kocan, J Maria Elena HUB BANDER Unavailable Unavailable Kocan, J Maria Elena HUB BANDER Unavailable Unavailable Kocan, J Maria Elena HUB BANDER Unavailable Unavailable Kocan, J Maria Elena HUB BANDER Unavailable Unavailable Kocan, J Maria Elena HUB BANDER Unavailable Unavailable Kocan, J Maria Elena HUB BANDER Unavailable Unavailable Kocan, J Maria Elena HUB BANDER Unavailable Unavailable Kocan, J Maria Elena HUB BANDER Unavailable Unavailable Kocan, J Maria Elena HUB BANDER Unavailable Unavailable Kocan, J Maria Elena HUB BANDER Unavailable Unavailable Kocan, J Maria Elena HUB BANDER Unavailable Unavailable Kocan, J Maria Elena HUB BANDER Unavailable Unavailable Koffi, Kaylene DO Unavailable Unavailable Koffi, Kaylene DO Unavailable Unavailable Koffi, Kaylene DO Unavailable Unavailable Koffi, Kaylene DO Unavailable Unavailable Koffi, Kaylene DO Unavailable Unavailable Koffi, Kaylene DO Unavailable Unavailable Koffi, Kaylene DO Unavailable Unavailable Koffi, Kaylene DO Unavailable Unavailable Koffi, Kaylene DO Unavailable Unavailable Koffi, Kaylene DO Unavailable Unavailable Koffi, Kaylene DO Unavailable Unavailable Koffi, Kaylene DO Unavailable Unavailable Koffi, Kaylene DO Unavailable Unavailable Koffi, Kalyene DO Unavailable Unavailable Koffi, Kaylene DO Unavailable Unavailable Koffi, Kaylene DO Unavailable Unavailable Koffi, Kaylene DO Unavailable Unavailable Koffi, Kaylene DO Unavailable Unavailable Koffi, Kaylene DO Unavailable Unavailable Koffi, Kaylene DO Unavailable Unavailable Koffi, Kaylene DO Unavailable Unavailable Koffi, Kaylene DO Unavailable Unavailable Koffi, Kaylene DO Unavailable Unavailable Koffi, Kaylene DO Unavailable Unavailable Koffi, Kaylene DO Unavailable Unavailable Koffi, Kaylene DO Unavailable Unavailable Koffi, Kaylene DO Unavailable Unavailable Koffi, Kaylene DO Unavailable Unavailable Koffi, Kaylene DO Unavailable Unavailable Koffi, Kaylene DO Unavailable Unavailable Koffi, Kaylene DO Unavailable Unavailable Koffi, Kaylene DO Unavailable Unavailable Koffi, Kaylene DO Unavailable Unavailable Koffi, Kaylene DO Unavailable Unavailable Koffi, Kaylene DO Unavailable Unavailable Koffi, Kaylene DO Unavailable Unavailable Koffi, Kaylene DO Unavailable Unavailable Koffi, Kaylene DO Unavailable Unavailable Koffi, Kaylene DO Unavailable Unavailable Koffi, Kaylene DO Unavailable Unavailable Koffi, Kaylene DO Unavailable Unavailable Koffi, Kaylene DO Unavailable Unavailable Koffi, Kaylene DO Unavailable Unavailable Koffi, Kaylene DO Unavailable Unavailable Koffi, Kaylene DO Unavailable Unavailable Koffi, Kaylene DO Unavailable Unavailable Koffi, Kaylene DO Unavailable Unavailable Koffi, Kaylene DO Unavailable Unavailable Koffi, Kaylene DO Unavailable Unavailable Koffi, Kaylene DO Unavailable Unavailable Koffi, Kaylene DO Unavailable Unavailable Koffi, Kaylene DO Unavailable Unavailable Koffi, Kaylene DO Unavailable Unavailable Koffi, Kaylene DO Unavailable Unavailable Koffi, Kaylene DO Unavailable Unavailable Koffi, Kaylene DO Unavailable Unavailable Koffi, Kaylene DO Unavailable Unavailable Koffi, Kaylene DO Unavailable Unavailable Koffi, Kaylene DO Unavailable Unavailable Koffi, Kaylene DO Unavailable Unavailable Koffi, Kaylene DO Unavailable Unavailable Koffi, Kaylene DO Unavailable Unavailable Koffi, Kaylene DO Unavailable Unavailable Koffi, Kaylene DO Unavailable Unavailable Koffi, Kaylene DO Unavailable Unavailable Koffi, Kaylene DO Unavailable Unavailable Koffi, Kaylene DO Unavailable Unavailable Koffi, Kaylene DO Unavailable Unavailable Koffi, Kaylene DO Unavailable Unavailable Koffi, Kaylene DO Unavailable Unavailable Koffi, Kaylene DO Unavailable Unavailable Koffi, Kaylene DO Unavailable Unavailable Clark, L Radha RPA Unavailable Unavailable Clark, L Radha RPA Unavailable Unavailable Clark, L Radha RPA Unavailable Unavailable Clark, L Radha RPA Unavailable Unavailable Clark, L Radha RPA Unavailable Unavailable Clark, L Radha RPA Unavailable Unavailable Clark, L Radha RPA Unavailable Unavailable Clark, L Radha RPA Unavailable Unavailable Clark, L Radha RPA Unavailable Unavailable Clark, L Radha RPA Unavailable Unavailable Clark, L Radha RPA Unavailable Unavailable Clark, L Radha RPA Unavailable Unavailable Clark, L Radha RPA Unavailable Unavailable Clark, L Radha RPA Unavailable Unavailable Clark, L Radha RPA Unavailable Unavailable Clark, L Radha RPA Unavailable Unavailable Clark, L Radha RPA Unavailable Unavailable Clark, L Radha RPA Unavailable Unavailable Clark, L Radha RPA Unavailable Unavailable Clark, L Radha RPA Unavailable Unavailable Clark, L Radha RPA Unavailable Unavailable Clark, L Radha RPA Unavailable Unavailable Clark, L Radha RPA Unavailable Unavailable Clark, L Radha RPA Unavailable Unavailable Clark, L Radha RPA Unavailable Unavailable Clark, L Radha RPA Unavailable Unavailable Clark, L Radha RPA Unavailable Unavailable Clark, L Radha RPA Unavailable Unavailable Clark, L Radha RPA Unavailable Unavailable Clark, L Radha RPA Unavailable Unavailable Clark, L Radha RPA Unavailable Unavailable Clark, L Radha RPA Unavailable Unavailable DRAZEK, I FIGUEROA PA Unavailable Unavailable DRAZEK, I FIGUEROA PA Unavailable Unavailable DRAZEK, I FIGUEROA PA Unavailable Unavailable DRAZEK, I FIGUEROA PA Unavailable Unavailable DRAZEK, I FIGUEROA PA Unavailable Unavailable DRAZEK, I FIGUEROA PA Unavailable Unavailable DRAZEK, I FIGUEROA PA Unavailable Unavailable DRAZEK, I FIGUEROA PA Unavailable Unavailable DRAZEK, I FIGUEROA PA Unavailable Unavailable DRAZEK, I FIGUEROA PA Unavailable Unavailable DRAZEK, I FIGUEROA PA Unavailable Unavailable DRAZEK, I FIGUEROA PA Unavailable Unavailable DRAZEK, I FIGUEROA PA Unavailable Unavailable DRAZEK, I FIGUEROA PA Unavailable Unavailable DRAZEK, I FIGUEROA PA Unavailable Unavailable DRAZEK, I FIGUEROA PA Unavailable Unavailable DRAZEK, I FIGUEROA PA Unavailable Unavailable DRAZEK, I FIGUEROA PA Unavailable Unavailable DRAZEK, I FIGUEROA PA Unavailable Unavailable DRAZEK, I FIGUEROA PA Unavailable Unavailable DRAZEK, I FIGUEROA PA Unavailable Unavailable DRAZEK, I FIGUEROA PA Unavailable Unavailable DRAZEK, I FIGUEROA PA Unavailable Unavailable DRAZEK, I FIGUEROA PA Unavailable Unavailable DRAZEK, I FIGUEROA PA Unavailable Unavailable DRAZEK, I FIGUEROA PA Unavailable Unavailable DRAZEK, I FIGUEROA PA Unavailable Unavailable DRAZEK, I FIGUEROA PA Unavailable Unavailable DRAZEK, I FIGUEROA PA Unavailable Unavailable DRAZEK, I FIGUEROA PA Unavailable Unavailable RODRI, JAYSON CURRIE Unavailable Unavailable RODRI, JAYSON CURRIE Unavailable Unavailable RODRI, JAYSON CURRIE Unavailable Unavailable RODRI, JAYSON CURRIE Unavailable Unavailable RODRI, JAYSON CURRIE Unavailable Unavailable RODRI, JAYSON CURRIE Unavailable Unavailable RODRI, JAYSON CURRIE Unavailable Unavailable RODRI, JAYSON CURRIE Unavailable Unavailable RODRI, JAYSON CURRIE Unavailable Unavailable RODRI, JAYSON CURRIE Unavailable Unavailable RODRI, JAYSON CURRIE Unavailable Unavailable RODRI, JAYSON CURRIE Unavailable Unavailable RODRI, JAYSON CURRIE Unavailable Unavailable RODRI, JAYSON CURRIE Unavailable Unavailable RODRI, JAYSON CURRIE Unavailable Unavailable RODRI, JAYSON CURRIE Unavailable Unavailable RODRI, JAYSON CURRIE Unavailable Unavailable RODRI, JAYSON CURRIE Unavailable Unavailable RODRI, JAYSON CURRIE Unavailable Unavailable RODRI, JAYSON CURRIE Unavailable Unavailable RODRI, JAYSON CURRIE Unavailable Unavailable RODRI, JAYSON CURRIE Unavailable Unavailable RODRI, JAYSON CURRIE Unavailable Unavailable RODRI, JAYSON CURRIE Unavailable Unavailable RODRI, JAYSON CURRIE Unavailable Unavailable RODRI, JAYSON CURRIE Unavailable Unavailable RODRI, JAYSON CURRIE Unavailable Unavailable RODRI, JAYSON CURRIE Unavailable Unavailable RODRI, JAYSON CURRIE Unavailable Unavailable RODRI, JAYSON CURRIE Unavailable Unavailable RODRI, JAYSON CURRIE Unavailable Unavailable RODRI, JAYSON CURRIE Unavailable Unavailable RODRI, JAYSON CURRIE Unavailable Unavailable RODRI, JAYSON CURRIE Unavailable Unavailable RODRI, JAYSON CURRIE Unavailable Unavailable RODRI, JAYSON CURRIE Unavailable Unavailable RODRI, JAYSON CURRIE Unavailable Unavailable RODRI, JAYSON CURRIE Unavailable Unavailable RODRI, JAYSON CURRIE Unavailable Unavailable RODRI, JAYSON CURRIE Unavailable Unavailable RODRI, JAYSON CURRIE Unavailable Unavailable RODRI, JAYSON CURRIE Unavailable Unavailable RODRI, JAYSON CURRIE Unavailable Unavailable RODRI, JAYSON CURRIE Unavailable Unavailable RODRI, JAYSON CURRIE Unavailable Unavailable RODRI, JAYSON CURRIE Unavailable Unavailable RODRI, JAYSON CURRIE Unavailable Unavailable RODRI, JAYSON CURRIE Unavailable Unavailable RODRI, JAYSON CURRIE Unavailable Unavailable RODRI, JASYON CURRIE Unavailable Unavailable RODRI, JAYSON CURRIE Unavailable Unavailable RODRI, JAYSON CURRIE Unavailable Unavailable RODRI, JAYSON CURRIE Unavailable Unavailable RODRI, JAYSON CURRIE Unavailable Unavailable Cruzito Tan MD Unavailable Unavailable Cruzito Tan MD Unavailable Unavailable Cruzito Tan MD Unavailable Unavailable Cruzito Tan MD Unavailable Unavailable Cruzito Tan MD Unavailable Unavailable Cruzito Tan MD Unavailable Unavailable Cruzito Tan MD Unavailable Unavailable Cruzito Tan MD Unavailable Unavailable Ali, Cruzito MD Unavailable Unavailable Ali, Cruzito MD Unavailable Unavailable Ali, Cruzito MD Unavailable Unavailable Ali, Cruzito MD Unavailable Unavailable Ali, Cruzito MD Unavailable Unavailable Ali, Cruzito MD Unavailable Unavailable Ali, Cruzito MD Unavailable Unavailable Ali, Cruzito MD Unavailable Unavailable Ali, Cruzito MD Unavailable Unavailable Ali, Cruzito MD Unavailable Unavailable Ali, Cruzito MD Unavailable Unavailable Ali, Cruzito MD Unavailable Unavailable Ali, Cruzito MD Unavailable Unavailable Ali, Cruzito MD Unavailable Unavailable Ali, Cruzito MD Unavailable Unavailable Ali, Cruzito MD Unavailable Unavailable Ali, Cruzito MD Unavailable Unavailable Ali, Cruzito MD Unavailable Unavailable Ali, Cruzito MD Unavailable Unavailable Ali, Cruzito MD Unavailable Unavailable Ali, Cruzito MD Unavailable Unavailable Ali, Cruzito MD Unavailable Unavailable Ali, Cruzito MD Unavailable Unavailable Ali, Cruzito MD Unavailable Unavailable Ali, Cruzito MD Unavailable Unavailable Ali, Cruzito MD Unavailable Unavailable Ali, Cruzito MD Unavailable Unavailable Ali, Cruzito MD Unavailable Unavailable Ali, Cruzito MD Unavailable Unavailable Ali, Cruzito MD Unavailable Unavailable Ali, Cruzito MD Unavailable Unavailable Ali, Cruzito MD Unavailable Unavailable Ali, Cruzito MD Unavailable Unavailable Ali, Cruzito MD Unavailable Unavailable Ali, Cruzito MD Unavailable Unavailable Ali, Cruzito MD Unavailable Unavailable Ali, Cruzito MD Unavailable Unavailable Ali, Cruzito MD Unavailable Unavailable Ali, Cruzito MD Unavailable Unavailable Ali, Cruzito MD Unavailable Unavailable Ali, Cruzito MD Unavailable Unavailable Ali, Cruzito MD Unavailable Unavailable Ali, Cruzito MD Unavailable Unavailable Ali, Cruzito MD Unavailable Unavailable Re-disclosure Warning The records that you are about to access may contain information from federally-assisted alcohol or drug abuse programs. If such information is present, then the following federally mandated warning applies: This information has been disclosed to you from records protected by federal confidentiality rules (42 CFR part 2). The federal rules prohibit you from making any further disclosure of this information unless further disclosure is expressly permitted by the written consent of the person to whom it pertains or as otherwise permitted by 42 CFR part 2. A general authorization for the release of medical or other information is NOT sufficient for this purpose. The Federal rules restrict any use of the information to criminally investigate or prosecute any alcohol or drug abuse patient.The records that you are about to access may contain highly sensitive health information, the redisclosure of which is protected by Article 27-F of the [place] State Public Health law. If you continue you may have access to information: Regarding HIV / AIDS; Provided by facilities licensed or operated by the [facility] Office of Mental Health; or Provided by the [facility] Office for People With Developmental Disabilities. If such information is present, then the following [facility] mandated warning applies: This information has been disclosed to you from confidential records which are protected by state law. State law prohibits you from making any further disclosure of this information without the specific written consent of the person to whom it pertains, or as otherwise permitted by law. Any unauthorized further disclosure in violation of state law may result in a fine or snf sentence or both. A general authorization for the release of medical or other information is NOT sufficient authorization for further disc losure. Family History Family Member Name Family Member Gender Family Member Status Date o f Status Description Data Source(s) Unknown Unknown Problem MEDENT ([facility]) Unknown Unknown Problem [facility] ([facility]) Unknown Unknown Problem [facility] ([facility]) Unknown Unknown Problem [facility] ([facility]) Unknown Unknown Problem [facility] ([facility] ) Encounters Encounter Providers Location Date Indications Data Source(s ) Office Visit, Est Pt., Level 4 [address] [place] [address] 07/13/2020 12:00:00 AM EST eCW1 ([facility]) Office Visit Attender: Cruzito Tan MD Main office [place] 07/01/2020 01:45:00 PM EST MED[facility] ([facility]) Office Visit, Est Pt., Level [address] [place] [id number] 06/24/2020 12:00:00 AM EST eCW1 ([facility]) Outpatient Attender: FIGUEROA VAZ Physical Therapy 06/18/2020 0 9:45:00 AM EST MEDENT ([facility]) Outpatient Attender: Maria Elena [email or web address] 2019 12:00:00 AM EST - 06/12/2020 02:38:36 PM EST [facility] Unknown [address] [place] [address], [facility] [id number] 06/09/2020 12:00:00 AM EST eCW1 ([facility]) [place] [address] [facility] [address] 06/08/2020 12:00:00 AM EST eCW1 ([facility]) Office Visit, Est Pt., Level 5 PC [address] [place] [address] 06/04/2020 12:00:00 AM EST eCW1 ([facility]) Outpatient Attender: Kaylene Desir 05/26 01:00:00 PM EST [facility] ([facility] ) [place] [address] [facility] [address] 05/21/2020 12:00:00 AM EST eCW1 ([facility]) Out[place] [address] [facility] [address] 05/19/2020 12:00:00 AM EST eCW1 ([facility]) [place] [address] [facility] [address] 05/12/2020 12:00:00 AM EST eCW1 ([facility]) Out[place] [address] [facility] [address] 05/05/2020 12:00:00 AM EST eCW1 ([facility]) Outpatient Attender: FIGUEROA AVZ Physical Therapy 04/28/2020 0 3:15:00 PM EDT MED[facility] ([facility]) Office Visit Attender: Cruzito Tan MD Main office - [place] 01/28/2020 02:00:00 PM EDT [facility] ([facility]) Outpatient [address] [facility] [address] 01/21/2020 12:00:00 AM EDT eCW1 ([facility]) Outpatient Referrer: Kaylene Rain DO 12/23/2019 07:50:00 AM EDT [facility] Outpatient Attender: Kaylene Desir 12/18 02:00:00 PM EDT MEDENT ([facility] ) Outpatient Attender: JAYSON [email or web address] 0 12:00:00 AM EDT - 10/24/2019 09:09:45 AM EDT [facility] Outpatient Attender: Kaylene Gottilogradha Rendon 10/21 02:45:00 PM EDT MED[facility] ([facility] ) Outpatient Referrer: Kaylene Rain DO 10/10/2019 01:59:00 PM EDT [facility] Outpatient Referrer: Kaylene Rain DO 10/02/2019 03:18:00 PM EDT [facility] Outpatient Referrer: Kaylene Rain DO 10/02/2019 10:31:00 AM EDT [facility] Outpatient Attender: Kaylene Rain DO Gwyn Julieta 09/22 02:45:00 PM EDT MED[facility] ([facility] ) Outpatient Attender: Radha Clark RPA Angelica/Talcott/Bryson/R eindl 09/17/2019 11:00:00 AM EDT MED[facility] ([facility]) Outpatient Attender: Kaylene Desir 09/05 01:00:00 PM EST MED[facility] ([facility] ) Outpatient Referrer: JAYSON [email or web address] 08/07/2019 12:00:00 AM EST [facility] Outpatient Attender: Kaylene Desir 07/23 12:30:00 PM EST MED[facility] ([facility] ) Outpatient Attender: JAYSON MACE MDConsultant: JAYSON Avitia JP.[email or web address] 07/10/2019 12:22:38 PM EST - 07/10/2019 02:02:15 PM EST [facility] Outpatient Referrer: Kaylene Rain DO 07/08/2019 02:11:00 PM EST [facility] Outpatient Attender: Radha Clark RPA Angelica/Talcott/Bryson/R eindl 06/19/2019 10:15:00 AM EST [facility] ([facility]) Outpatient Attender: Kaylene Desir 06/17 01:30:00 PM EST MED[facility] ([facility] ) Outpatient Referrer: Kaylene Rain DO 06/14/2019 02:15:00 PM EST [facility] Outpatient Attender: Cruzito Tan MD Main office - [place] 06/12/2019 12:30:00 PM EST [facility] ([facility]) Immunizations Vaccine Date Status Description Data Source(s) INFLUENZA VIRUS VACCINE QUADRIVAL SPLIT (65 YR UP)/PF 04/14/2020 12:00:00 AM EDT completed [facility] Medications Medication Brand Name Start Date Product Form Dose Route Admi nistrative Instructions Pharmacy Instructions Status Indications Reaction Description Data Source(s) 1 mg 07/16/2020 12:00:00 AM EST tablet 90 TAKE ONE TABLET BY MOUTH EVERY DAY AT BEDTIME TAKE ONE TABLET BY MOUTH EVERY DAY AT BEDTIME SOLD: 07/16/2020 [facility] Alprazolam 0.5 MG Oral Tablet ALPRAZOLAM 07/14/2020 12:00:00 AM EST ta blet 30 TAKE ONE TABLET BY MOUTH EVERY DAY AT BEDTIME NEEDED MAXIMUM DAILY DOSE = 1 TAKE ONE TABLET BY MOUTH EVERY DAY AT BEDTIME NEEDED MAXIMUM DAILY DOSE = 1 SOLD: 07/16/2020 [facility] 50 mg 07/13/2020 12:00:00 AM EST tablet 10 TAKE ONE TABLET BY MOUTH TWICE A DAY NEEDED FOR PAIN MAXIMUM DAILY DOSE = 2 TABLETS TAKE ONE TABLET BY MOUTH TWICE A DAY NEEDED FOR PAIN MAXIMUM DAILY DOSE = 2 TABLETS SOLD: 07/16/2020 [facility] 500 mg 07/07/2020 12:00:00 AM EST tablet 20 TAKE ONE TABLET BY MOUTH TWICE A DAY FOR 10 DAYS TAKE ONE TABLET BY MOUTH TWICE A DAY FOR 10 DAYS SOLD: 07/07/2020 [facility] 90 mcg/actuation 07/07/2020 12:00:00 AM EST HFA aerosol inha ler 8 INHALE TWO PUFFS BY MOUTH THREE TIMES A DAY FOR 10 DAYS INHALE TWO PUFFS BY MOUTH THREE TIMES A DAY FOR 10 DAYS SOLD: 07/07/2020 [facility] 25 mg 07/02/2020 12:00:00 AM EST tablet 90 TAKE ONE TABLET BY MOUTH EVERY DAY AT BEDTIME TAKE ONE TABLET BY MOUTH EVERY DAY AT BEDTIME SOLD: 07/02/2020 [facility] 75 mg 07/02/2020 12:00:00 AM EST tablet 90 TAKE ONE TABLET BY MOUTH EVERY DAY TAKE ONE TABLET BY MOUTH EVERY DAY SOLD: 07/02/2020 [facility] 50 mg 06/30/2020 12:00:00 AM EST tablet 10 TAKE ONE TABLET BY MOUTH TWICE A DAY FOR PAIN MAXIMUM DAILY DOSE = 2 TABLETS TAKE ONE TABLET BY MOUTH TWICE A DAY FOR PAIN MAXIMUM DAILY DOSE = 2 TABLETS SOLD: 06/30/2020 [facility] 1 mg 06/22/2020 12:00:00 AM EST tablet 60 TAKE 2 TABLETS BY MOUTH AT NIGHT BEFORE BEDTIME TAKE 2 TABLETS BY MOUTH AT NIGHT BEFORE BEDTIME SOLD: 2019 [facility] 50 mg 06/17/2020 12:00:00 AM EST tablet 10 TAKE ONE TABLET BY MOUTH TWICE A DAY FOR PAIN MAXIMUM DAILY DOSE = 2 TABLETS TAKE ONE TABLET BY MOUTH TWICE A DAY FOR PAIN MAXIMUM DAILY DOSE = 2 TABLETS SOLD: 06/17/2020 [facility] Alprazolam 0.5 MG Oral Tablet ALPRAZOLAM 06/14/2020 12:00:00 AM EST ta blet 30 TAKE ONE TABLET BY MOUTH AT BEDTIME NEEDED MAXIMUM DAILY DOSE = 1 TABLETS TAKE ONE TABLET BY MOUTH AT BEDTIME NEEDED MAXIMUM DAILY DOSE = 1 TABLETS SOLD: 06/14/2020 [facility] Alprazolam 0.5 MG Oral Tablet ALPRAZOLAM 06/10/2020 12:00:00 AM EST ta blet 30 TAKE ONE TABLET BY MOUTH AT BEDTIME NEEDED MAXIMUM DAILY DOSE = 1 TABLETS TAKE ONE TABLET BY MOUTH AT BEDTIME NEEDED MAXIMUM DAILY DOSE = 1 TABLETS SOLD: 06/11/2020 [facility] 50 mg 06/08/2020 12:00:00 AM EST tablet 15 TAKE 1-2 TABLETS BY MOUTH EVERY 6 HOURS NEEDED FOR PAIN MAXIMUM DAILY DOSE = 3 TAKE 1-2 TABLETS BY MOUTH EVERY 6 HOURS NEEDED FOR PAIN MAXIMUM DAILY DOSE = 3 SOLD: 06/08/2020 [facility] Losartan Potassium 25 MG Oral Tablet losartan (COZAAR) 25 MG tablet losartan (COZAAR) 25 MG tablet 06/05/2020 12:00:00 AM EST 25 mg Oral active Take 25 mg by mouth daily [facility] 50 mg 06/02/2020 12:00:00 AM EST tablet 15 TAKE ONE TO TWO TABLETS BY MOUTH EVERY 6 HOURS NEEDED FOR PAIN MAXIMUM DAILY DOSE = 3 TABLETS TAKE ONE TO TWO TABLETS BY MOUTH EVERY 6 HOURS NEEDED FOR PAIN MAXIMUM DAILY DOSE = 3 TABLETS SOLD: 06/02/2020 [facility] 50 mg 05/29/2020 12:00:00 AM EST tablet 15 TAKE ONE TO TWO TABLETS BY MOUTH EVERY 6 HOURS NEEDED FOR PAIN MAXIMUM DAILY DOSE = 3 TAKE ONE TO TWO TABLETS BY MOUTH EVERY 6 HOURS NEEDED FOR PAIN MAXIMUM DAILY DOSE = 3 SOLD: 05/29/2020 [facility] Pramipexole dihydrochloride 1 MG Oral Tablet [Mirapex] Mirap ex 05/26/2020 12:00:00 AM EST ORAL active [facility]IVAS ([facility]) 25 mg 05/25/2020 12:00:00 AM EST tablet 30 TAKE ONE TABLET BY MOUTH EVERY DAY TAKE ONE TABLET BY MOUTH EVERY DAY SOLD: 05/25/2020 [facility] 25 mg 05/25/2020 12:00:00 AM EST tablet 30 TAKE ONE TABLET BY MOUTH EVERY DAY TAKE ONE TABLET BY MOUTH EVERY DAY SOLD: 06/22/2020 [facility] Famotidine 40 MG Oral Tablet famotidine (PEPCID) 40 MG tablet famotidine (PEPCID) 40 MG tablet 05/23/2020 12:00:00 AM EST 40 mg Oral active Take 40 mg by mouth daily [facility] 50 mg 05/20/2020 12:00:00 AM EST tablet 15 TAKE ONE TO TWO TABLETS BY MOUTH EVERY 6 HOURS NEEDED FOR PAIN MAXIMUM DAILY DOSE = 3 TABLETS TAKE ONE TO TWO TABLETS BY MOUTH EVERY 6 HOURS NEEDED FOR PAIN MAXIMUM DAILY DOSE = 3 TABLETS SOLD: 05/20/2020 [facility] 1 mg 05/19/2020 12:00:00 AM EST tablet 90 TAKE ONE TABLET BY MOUTH EVERY DAY AT BEDTIME MAXIMUM DAILY DOSE = 1 TAKE ONE TABLET BY MOUTH EVERY DAY AT BE DTIME MAXIMUM DAILY DOSE = 1 SOLD: 05/19/2020 [facility] Triamcinolone Acetonide 0.001 MG/MG [facility] Ointment Triamcinolone Acetonide 0.1 % Triamcinolone Acetonide 0.1 % 05/19/2020 12:00:00 AM EST 1.0 {application} active Triamcinolone Aceton zita 0.1 % eCW1 ([facility]) Triamcinolone Acetonide 0.001 MG/MG [facility] Ointment Triamcinolone Acetonide 0.1 % Triamcinolone Acetonide 0.1 % 05/19/2020 12:00:00 AM EST 1.0 {application} active Triamcinolone Aceton zita 0.1 % eCW1 ([facility]) Triamcinolone Acetonide 0.001 MG/MG [facility] Ointment Triamcinolone Acetonide 0.1 % Triamcinolone Acetonide 0.1 % 05/19/2020 12:00:00 AM EST 1.0 {application} active Triamcinolone Aceton zita 0.1 % eCW1 ([facility]) Triamcinolone Acetonide 0.001 MG/MG [facility] Ointment Triamcinolone Acetonide 0.1 % Triamcinolone Acetonide 0.1 % 05/19/2020 12:00:00 AM EST 1.0 {application} active Triamcinolone Aceton zita 0.1 % eCW1 ([facility]) Triamcinolone Acetonide 0.001 MG/MG [facility] Ointment Triamcinolone Acetonide 0.1 % Triamcinolone Acetonide 0.1 % 05/19/2020 12:00:00 AM EST 1.0 {application} active Triamcinolone Aceton zita 0.1 % eCW1 ([facility]) Triamcinolone Acetonide 0.001 MG/MG [facility] Ointment Triamcinolone Acetonide 0.1 % Triamcinolone Acetonide 0.1 % 05/19/2020 12:00:00 AM EST 1.0 {application} active Triamcinolone Aceton zita 0.1 % eCW1 ([facility]) Triamcinolone Acetonide 0.001 MG/MG [facility] Ointment Triamcinolone Acetonide 0.1 % Triamcinolone Acetonide 0.1 % 05/19/2020 12:00:00 AM EST 1.0 {application} active Triamcinolone Aceton zita 0.1 % eCW1 ([facility]) Triamcinolone Acetonide 0.001 MG/MG [facility] Ointment Triamcinolone Acetonide 0.1 % Triamcinolone Acetonide 0.1 % 05/12/2020 12:00:00 AM EST 1.0 {application} active Triamcinolone Aceton zita 0.1 % eCW1 ([facility]) Triamcinolone Acetonide 0.001 MG/MG [facility] Ointment Triamcinolone Acetonide 0.1 % Triamcinolone Acetonide 0.1 % 05/12/2020 12:00:00 AM EST 1.0 {application} active Triamcinolone Aceton zita 0.1 % eCW1 ([facility]) Triamcinolone Acetonide 0.001 MG/MG Topi [facility] Ointment Triamcinolone Acetonide 0.1 % Triamcinolone Acetonide 0.1 % 05/12/2020 12:00:00 AM EST 1.0 {application} active Triamcinolone Aceton zita 0.1 % eCW1 ([facility]) Triamcinolone Acetonide 0.001 MG/MG Topi [facility] Ointment Triamcinolone Acetonide 0.1 % Triamcinolone Acetonide 0.1 % 05/12/2020 12:00:00 AM EST 1.0 {application} active Triamcinolone Aceton zita 0.1 % eCW1 ([facility]) Triamcinolone Acetonide 0.001 MG/MG Topi [facility] Ointment Triamcinolone Acetonide 0.1 % Triamcinolone Acetonide 0.1 % 05/12/2020 12:00:00 AM EST 1.0 {application} active Triamcinolone Aceton zita 0.1 % eCW1 ([facility]) 0.1 % 05/12/2020 12:00:00 AM EST ointment 80 APPLY 1 APPLICATION TWICE A DAY TO LEGS FOR 14 DAYS (AVOID BIOPSY SITE) APPLY 1 APPLICATION TWICE A DAY TO LEGS FOR 14 DAYS (AVOID BIOPSY SITE) SOLD: 05/12/2020 [facility] 50 mg 05/12/2020 12:00:00 AM EST tablet 15 TAKE 1-2 TABLETS BY MOUTH EVERY 6 HOURS NEEDED FOR PAIN MAXIMUM DAILY DOSE = 3 TAKE 1-2 TABLETS BY MOUTH EVERY 6 HOURS NEEDED FOR PAIN MAXIMUM DAILY DOSE = 3 SOLD: 05/12/2020 [facility] Triamcinolone Acetonide 0.001 MG/MG Topi [facility] Ointment Triamcinolone Acetonide 0.1 % Triamcinolone Acetonide 0.1 % 05/12/2020 12:00:00 AM EST 1.0 {application} active Triamcinolone Aceton zita 0.1 % eCW1 ([facility]) Triamcinolone Acetonide 0.001 MG/MG Topi [facility] Ointment Triamcinolone Acetonide 0.1 % Triamcinolone Acetonide 0.1 % 05/12/2020 12:00:00 AM EST 1.0 {application} active Triamcinolone Aceton zita 0.1 % eCW1 ([facility]) Triamcinolone Acetonide 0.001 MG/MG Topi [facility] Ointment Triamcinolone Acetonide 0.1 % Triamcinolone Acetonide 0.1 % 05/12/2020 12:00:00 AM EST 1.0 {application} active Triamcinolone Aceton zita 0.1 % eCW1 ([facility]) Triamcinolone Acetonide 0.001 MG/MG Topi reg[facility] Ointment Triamcinolone Acetonide 0.1 % Triamcinolone Acetonide 0.1 % 05/12/2020 12:00:00 AM EST 1.0 {application} active Triamcinolone Aceton zita 0.1 % eCW1 ([facility]) 25 mg 05/11/2020 12:00:00 AM EST tablet 90 TAKE ONE TABLET BY MOUTH AT BEDTIME TAKE ONE TABLET BY MOUTH AT BEDTIME SOLD: 05/11/2020 [facility] Alprazolam 0.5 MG Oral Tablet ALPRAZOLAM 05/09/2020 12:00:00 AM EST ta blet 30 TAKE ONE TABLET BY MOUTH EVERY DAY AT BEDTIME NEEDED MAXIMUM DAILY DOSE = 1 TAKE ONE TABLET BY MOUTH EVERY DAY AT BEDTIME NEEDED MAXIMUM DAILY DOSE = 1 SOLD: 05/10/2020 [facility] 25 mg 05/08/2020 12:00:00 AM EST tablet 30 TAKE 1 TABLET BY MOUTH ONCE DAILY TAKE 1 TABLET BY MOUTH ONCE DAILY SOLD: 06/05/2020 [facility] Hydroxychloroquine Sulfate 200 MG Oral Tablet HYDROXYCHLOROQ UINE SULFATE 05/08/2020 12:00:00 AM EST tablet 60 TAKE ONE TABLET BY MOUTH EVERY DAY, THEN INCREASE TO TWO TIMES A DAY AFTER 7 DAYS TAKE ONE TABLET BY MOUTH EVERY DAY, THEN INCREASE TO TWO TIMES A DAY AFTER 7 DAYS SOLD: 07/03/2020 [facility] Hydroxychloroquine Sulfate 200 MG Oral Tablet HYDROXYCHLOROQ UINE SULFATE 05/08/2020 12:00:00 AM EST tablet 60 TAKE ONE TABLET BY MOUTH EVERY DAY, THEN INCREASE TO TWO TIMES A DAY AFTER 7 DAYS TAKE ONE TABLET BY MOUTH EVERY DAY, THEN INCREASE TO TWO TIMES A DAY AFTER 7 DAYS SOLD: 06/05/2020 [facility] Hydroxychloroquine Sulfate 200 MG Oral Tablet HYDROXYCHLOROQ UINE SULFATE 05/08/2020 12:00:00 AM EST tablet 60 TAKE ONE TABLET BY MOUTH EVERY DAY, THEN INCREASE TO TWO TIMES A DAY AFTER 7 DAYS TAKE ONE TABLET BY MOUTH EVERY DAY, THEN INCREASE TO TWO TIMES A DAY AFTER 7 DAYS SOLD: 05/08/2020 [facility] 25 mg 05/08/2020 12:00:00 AM EST tablet 30 TAKE 1 TABLET BY MOUTH ONCE DAILY TAKE 1 TABLET BY MOUTH ONCE DAILY SOLD: 05/08/2020 [facility] 25 mg 05/08/2020 12:00:00 AM EST tablet 30 TAKE 1 TABLET BY MOUTH ONCE DAILY TAKE 1 TABLET BY MOUTH ONCE DAILY SOLD: 07/03/2020 [facility] 75 mg 05/01/2020 12:00:00 AM EDT tablet 90 TAKE ONE TABLET BY MOUTH EVERY DAY TAKE ONE TABLET BY MOUTH EVERY DAY SOLD: 05/01/2020 [facility] 50 mg 04/28/2020 12:00:00 AM EDT tablet 30 TAKE 1-2 TABLETS BY MOUTH EVERY 4 TO 6 HOURS NEEDED FOR PAIN MAXIMUM DAILY DOSE = 6 TAKE 1-2 TABLETS BY MOUTH EVERY 4 TO 6 HOURS NEEDED FOR PAIN MAXIMUM DAILY DOSE = 6 SOLD: 04/28/2020 [facility] Alprazolam 0.5 MG Oral Tablet ALPRAZOLAM 04/10/2020 12:00:00 AM EDT ta blet 30 TAKE ONE TABLET BY MOUTH EVERY DAY AT BEDTIME NEEDED MAXIMUM DAILY DOSE = 1 TAKE ONE TABLET BY MOUTH EVERY DAY AT BEDTIME NEEDED MAXIMUM DAILY DOSE = 1 SOLD: 04/10/2020 [facility] 50 mg 04/08/2020 12:00:00 AM EDT tablet 30 TAKE ONE TO TWO TABLETS BY MOUTH EVERY 4 TO 6 HOURS NEEDED FOR PAIN MAXIMUM DAILY DOSE = 6 TABLETS TAKE ONE TO TWO TABLETS BY MOUTH EVERY 4 TO 6 HOURS NEEDED FOR PAIN MAXIMUM DAILY DOSE = 6 TABLETS SOLD: 04/08/2020 [facility] tramadol hydrochloride 50 MG Oral Tablet Tramadol HCL 04/08/2020 12:00:00 AM EDT ORAL active [facility] ([facility] ) 300-60 mg 04/07/2020 12:00:00 AM EDT tablet 4 TAKE ONE TABLET BY MOUTH EVERY DAY NEEDED FOR PAIN MAXIMUM DAILY DOSE = 1 TABLET TAKE ONE TABLET BY MOUTH EVERY DAY NEEDED FOR PAIN MAXIMUM DAILY DOSE = 1 TABLET SOLD: 04/07/2020 [facility] 300-60 mg 04/03/2020 12:00:00 AM EDT tablet 5 TAKE ONE TABLET BY MOUTH DAILY NEEDED FOR PAIN MAXIMUM DAILY DOSE = 1 TAKE ONE TABLET BY MOUTH DAILY NEEDED FOR PAIN MAXIMUM DAILY DOSE = 1 SOLD: 04/03/2020 [facility] 300-60 mg 03/28/2020 12:00:00 AM EDT tablet 10 TAKE ONE TABLET BY MOUTH TWICE A DAY NEEDED FOR PAIN MAXIMUM DAILY DOSE = 2 TAKE ONE TABLET BY MOUTH TWICE A DAY NEEDED FOR PAIN MAXIMUM DAILY DOSE = 2 SOLD: 03/28/2020 [facility] 300-60 mg 03/23/2020 12:00:00 AM EDT tablet 15 TAKE ONE TABLET BY MOUTH EVERY 4 TO 6 HOURS NEEDED FOR PAIN MAXIMUM DAILY DOSE = 3 TABLETS TAKE ONE TABLET BY MOUTH EVERY 4 TO 6 HOURS NEEDED FOR PAIN MAXIMUM DAILY DOSE = 3 TABLETS SOLD: 03/24/2020 [facility] 300-60 mg 03/17/2020 12:00:00 AM EDT tablet 15 TAKE 1 TABLET BY MOUTH EVERY 4-6 HOURS NEEDED FOR PAIN MAXIMUM DAILY DOSE = 3 TAKE 1 TABLET BY MOUTH EVERY 4-6 HOURS NEEDED FOR PAIN MAXIMUM DAILY DOSE = 3 SOLD: 03/18/2020 [facility] 60 mg 03/14/2020 12:00:00 AM EDT capsule,delayed release (DR/EC) 180 TAKE ONE CAPSULE BY MOUTH TWICE A DAY TAKE ONE CAPSULE BY MOUTH TWICE A DAY SOLD: 03/15/2020 [facility] 60 mg 03/14/2020 12:00:00 AM EDT capsule,delayed release (DR/EC) 180 TAKE ONE CAPSULE BY MOUTH TWICE A DAY TAKE ONE CAPSULE BY MOUTH TWICE A DAY SOLD: 06/11/2020 [facility] Alprazolam 0.5 MG Oral Tablet ALPRAZOLAM 03/11/2020 12:00:00 AM EDT ta blet 30 TAKE ONE TABLET BY MOUTH EVERY DAY AT BEDTIME NEEDED MAXIMUM DAILY DOSE = 1 TAKE ONE TABLET BY MOUTH EVERY DAY AT BEDTIME NEEDED MAXIMUM DAILY DOSE = 1 SOLD: 03/12/2020 [facility] 300-60 mg 03/10/2020 12:00:00 AM EDT tablet 15 TAKE ONE TABLET BY MOUTH EVERY 4 TO 6 HOURS NEEDED FOR PAIN, MAXIMUM DAILY DOSE = THREE TABLETS TAKE ONE TABLET BY MOUTH EVERY 4 TO 6 HOURS NEEDED FOR PAIN, MAXIMUM DAILY DOSE = THREE TABLETS SOLD: 03/10/2020 [facility] 300-60 mg 03/06/2020 12:00:00 AM EDT tablet 15 TAKE ONE TABLET BY MOUTH EVERY 4 TO 6 HOURS NEEDED FOR PAIN - MAXIMUM DAILY DOSE = 3 TAKE ONE TABLET BY MOUTH EVERY 4 TO 6 HOURS NEEDED FOR PAIN - MAXIMUM DAILY DOSE = 3 SOLD: 03/06/2020 [facility] 300-60 mg 03/02/2020 12:00:00 AM EDT tablet 15 TAKE ONE TABLET BY MOUTH EVERY 4 TO 6 HOURS NEEDED FOR PAIN MAXIMUM DAILY DOSE = 3 TAKE ONE TABLET BY MOUTH EVERY 4 TO 6 HOURS NEEDED FOR PAIN MAXIMUM DAILY DOSE = 3 SOLD: 03/02/2020 [facility] 10 mg 02/27/2020 12:00:00 AM EDT tablet 20 TAKE ONE TABLET BY MOUTH EVERY DAY WITH FOOD TAKE ONE TABLET BY MOUTH EVERY DAY WITH FOOD SOLD: 02/28/2020 [facility] 300-60 mg 02/26/2020 12:00:00 AM EDT tablet 15 TAKE ONE TABLET BY MOUTH EVERY 4 TO 6 HOURS NEEDED FOR PAIN MAXIMUM DAILY DOSE = 3 TABLETS TAKE ONE TABLET BY MOUTH EVERY 4 TO 6 HOURS NEEDED FOR PAIN MAXIMUM DAILY DOSE = 3 TABLETS SOLD: 02/26/2020 [facility] 300-60 mg 02/19/2020 12:00:00 AM EDT tablet 20 TAKE 1 TABLET BY MOUTH EVERY 4-6 HOURS NEEDED FOR PAIN MAXIMUM DAILY DOSE = 4 TAKE 1 TABLET BY MOUTH EVERY 4-6 HOURS NEEDED FOR PAIN MAXIMUM DAILY DOSE = 4 SOLD: 02/19/2020 [facility] 300-60 mg 02/11/2020 12:00:00 AM EDT tablet 20 TAKE ONE TABLET BY MOUTH EVERY 4 TO 6 HOURS NEEDED FOR PAIN MAXIMUM DAILY DOSE = 4 TAKE ONE TABLET BY MOUTH EVERY 4 TO 6 HOURS NEEDED FOR PAIN MAXIMUM DAILY DOSE = 4 SOLD: 02/12/2020 [facility] Alprazolam 0.5 MG Oral Tablet ALPRAZOLAM 02/10/2020 12:00:00 AM EDT ta blet 30 TAKE ONE TABLET BY MOUTH AT BEDTIME NEEDED, MAXIMUM DAILY DOSE = 1 TAKE ONE TABLET BY MOUTH AT BEDTIME NEEDED, MAXIMUM DAILY DOSE = 1 SOLD: 02/11/2020 [facility] 300-60 mg 02/07/2020 12:00:00 AM EDT tablet 20 TAKE ONE TABLET BY MOUTH EVERY 4 TO 6 HOURS NEEDED FOR PAIN MAXIMUM DAILY DOSE = 4 TABLETS TAKE ONE TABLET BY MOUTH EVERY 4 TO 6 HOURS NEEDED FOR PAIN MAXIMUM DAILY DOSE = 4 TABLETS SOLD: 02/07/2020 [facility] 300-60 mg 02/03/2020 12:00:00 AM EDT tablet 20 TAKE ONE TABLET BY MOUTH EVERY 4 TO 6 HOURS NEEDED FOR PAIN MAXIMUM DAILY DOSE = 4 TAKE ONE TABLET BY MOUTH EVERY 4 TO 6 HOURS NEEDED FOR PAIN MAXIMUM DAILY DOSE = 4 SOLD: 02/03/2020 [facility] Famotidine 40 MG Oral Tablet FAMOTIDINE 01/28/2020 12:00:00 AM EDT tab let 30 TAKE ONE TABLET BY MOUTH EVERY DAY TAKE ONE TABLET BY MOUTH EVERY DAY SOLD: 05/24/2020 [facility] Famotidine 40 MG Oral Tablet FAMOTIDINE 01/28/2020 12:00:00 AM EDT tab let 30 TAKE ONE TABLET BY MOUTH EVERY DAY TAKE ONE TABLET BY MOUTH EVERY DAY SOLD: 06/21/2020 [facility] 40 mg 01/28/2020 12:00:00 AM EDT tablet 30 TAKE ONE TABLET BY MOUTH EVERY DAY TAKE ONE TABLET BY MOUTH EVERY DAY SOLD: 04/26/2020 [facility] 40 mg 01/28/2020 12:00:00 AM EDT tablet 30 TAKE ONE TABLET BY MOUTH EVERY DAY TAKE ONE TABLET BY MOUTH EVERY DAY SOLD: 03/28/2020 [facility] 40 mg 01/28/2020 12:00:00 AM EDT tablet 30 TAKE ONE TABLET BY MOUTH EVERY DAY TAKE ONE TABLET BY MOUTH EVERY DAY SOLD: 01/28/2020 [facility] Famotidine 40 MG Oral Tablet FAMOTIDINE 01/28/2020 12:00:00 AM EDT tab let 30 TAKE ONE TABLET BY MOUTH EVERY DAY TAKE ONE TABLET BY MOUTH EVERY DAY SOLD: 07/19/2020 [facility] 300-60 mg 01/28/2020 12:00:00 AM EDT tablet 30 TAKE ONE TABLET BY MOUTH EVERY 4 TO 6 HOURS NEEDED FOR PAIN, MAXIMUM DAILY DOSE = 6 TAKE ONE TABLET BY MOUTH EVERY 4 TO 6 HOURS NEEDED FOR PAIN, MAXIMUM DAILY DOSE = 6 SOLD: 01/28/2020 [facility] 40 mg 01/28/2020 12:00:00 AM EDT tablet 30 TAKE ONE TABLET BY MOUTH EVERY DAY TAKE ONE TABLET BY MOUTH EVERY DAY SOLD: 02/26/2020 [facility] 300-60 mg 01/21/2020 12:00:00 AM EDT tablet 30 TAKE ONE TABLET BY MOUTH EVERY 4 TO 6 HOURS NEEDED FOR PAIN MAXIMUM DAILY DOSE = 6 TAKE ONE TABLET BY MOUTH EVERY 4 TO 6 HOURS NEEDED FOR PAIN MAXIMUM DAILY DOSE = 6 SOLD: 01/21/2020 [facility] 300-60 mg 01/13/2020 12:00:00 AM EDT tablet 30 TAKE 1 TABLET BY MOUTH EVERY 4-6 HOURS NEEDED FOR PAIN MAXIMUM DAILY DOSE = 6 TAKE 1 TABLET BY MOUTH EVERY 4-6 HOURS NEEDED FOR PAIN MAXIMUM DAILY DOSE = 6 SOLD: 01/13/2020 [facility] Alprazolam 0.5 MG Oral Tablet ALPRAZOLAM 01/11/2020 12:00:00 AM EDT ta blet 30 TAKE ONE TABLET BY MOUTH AT BEDTIME NEEDED MAXIMUM DAILY DOSE = 1 TAKE ONE TABLET BY MOUTH AT BEDTIME NEEDED MAXIMUM DAILY DOSE = 1 SOLD: 01/12/2020 [facility] Hydroxychloroquine Sulfate 200 MG Oral Tablet HYDROXYCHLOROQ UINE SULFATE 01/09/2020 12:00:00 AM EDT tablet 60 TAKE ONE TABLET BY MOUTH EVERY DAY, THEN INCREASE TO TWO TIMES A DAY AFTER 7 DAYS TAKE ONE TABLET BY MOUTH EVERY DAY, THEN INCREASE TO TWO TIMES A DAY AFTER 7 DAYS SOLD: 03/10/2020 [facility] Hydroxychloroquine Sulfate 200 MG Oral Tablet HYDROXYCHLOROQ UINE SULFATE 01/09/2020 12:00:00 AM EDT tablet 60 TAKE ONE TABLET BY MOUTH EVERY DAY, THEN INCREASE TO TWO TIMES A DAY AFTER 7 DAYS TAKE ONE TABLET BY MOUTH EVERY DAY, THEN INCREASE TO TWO TIMES A DAY AFTER 7 DAYS SOLD: 01/09/2020 [facility] Hydroxychloroquine Sulfate 200 MG Oral Tablet HYDROXYCHLOROQ UINE SULFATE 01/09/2020 12:00:00 AM EDT tablet 60 TAKE ONE TABLET BY MOUTH EVERY DAY, THEN INCREASE TO TWO TIMES A DAY AFTER 7 DAYS TAKE ONE TABLET BY MOUTH EVERY DAY, THEN INCREASE TO TWO TIMES A DAY AFTER 7 DAYS SOLD: 04/10/2020 [facility] Hydroxychloroquine Sulfate 200 MG Oral Tablet HYDROXYCHLOROQ UINE SULFATE 01/09/2020 12:00:00 AM EDT tablet 60 TAKE ONE TABLET BY MOUTH EVERY DAY, THEN INCREASE TO TWO TIMES A DAY AFTER 7 DAYS TAKE ONE TABLET BY MOUTH EVERY DAY, THEN INCREASE TO TWO TIMES A DAY AFTER 7 DAYS SOLD: 02/07/2020 [facility] 300-60 mg 01/07/2020 12:00:00 AM EDT tablet 30 TAKE ONE TABLET BY MOUTH EVERY 4 TO 6 HOURS NEEDED FOR PAIN MAXIMUM DAILY DOSE = 6 TAKE ONE TABLET BY MOUTH EVERY 4 TO 6 HOURS NEEDED FOR PAIN MAXIMUM DAILY DOSE = 6 SOLD: 01/07/2020 [facility] 0.4 mg 12/31/2019 12:00:00 AM EDT tablet, sublingual [address] PLACE ONE TABLET UNDER THE TONGUE EVERY 5 MINUTES FOR UP TO 3 DOSES NEEDED FOR CHEST PAIN. IF CHEST PAIN STILL PERSISTS CONTACT [address] ONE TABLET UNDER THE TONGUE EVERY 5 MINUTES FOR UP TO 3 DOSES NEEDED FOR CHEST PAIN. IF CHEST PAIN STILL PERSISTS CONTACT 911 SOLD: 12/31/2019 [facility] 300-60 mg 12/30/2019 12:00:00 AM EDT tablet 30 TAKE ONE TABLET BY MOUTH EVERY 4 TO 6 HOURS NEEDED FOR PAIN MAXIMUM DAILY DOSE = 6 TABLETS TAKE ONE TABLET BY MOUTH EVERY 4 TO 6 HOURS NEEDED FOR PAIN MAXIMUM DAILY DOSE = 6 TABLETS SOLD: 12/30/2019 [facility] 300-60 mg 12/17/2019 12:00:00 AM EDT tablet 30 TAKE ONE TABLET BY MOUTH EVERY 4-6 HOURS NEEDED FOR PAIN MAXIMUM DAILY DOSE = 6 TABLETS TAKE ONE TABLET BY MOUTH EVERY 4-6 HOURS NEEDED FOR PAIN MAXIMUM DAILY DOSE = 6 TABLETS SOLD: 12/17/2019 [facility] Alprazolam 0.5 MG Oral Tablet ALPRAZOLAM 12/14/2019 12:00:00 AM EDT ta blet 30 TAKE 1TABLET BY MOUTH EVERY DAY AT BEDTIME NEEDED MAXIMUM DAILY DOSE = 1 TAKE 1TABLET BY MOUTH EVERY DAY AT BEDTIME NEEDED MAXIMUM DAILY DOSE = 1 SOLD: 12/15/2019 [facility] 300-60 mg 12/09/2019 12:00:00 AM EDT tablet 30 TAKE 1 TABLET BY MOUTH EVERY 4-6 HOURS NEEDED FOR PAIN MAXIMUM DAILY DOSE = 6 TAKE 1 TABLET BY MOUTH EVERY 4-6 HOURS NEEDED FOR PAIN MAXIMUM DAILY DOSE = 6 SOLD: 12/09/2019 [facility] 300 mg 12/03/2019 12:00:00 AM EDT capsule 180 TAKE ONE CAPSULE BY MOUTH TWICE A DAY TAKE ONE CAPSULE BY MOUTH TWICE A DAY SOLD: 12/03/2019 [facility] 300 mg 12/03/2019 12:00:00 AM EDT capsule 180 TAKE ONE CAPSULE BY MOUTH TWICE A DAY TAKE ONE CAPSULE BY MOUTH TWICE A DAY SOLD: 03/02/2020 [facility] 300 mg 12/03/2019 12:00:00 AM EDT capsule 180 TAKE ONE CAPSULE BY MOUTH TWICE A DAY TAKE ONE CAPSULE BY MOUTH TWICE A DAY SOLD: 05/29/2020 [facility] 300-60 mg 12/02/2019 12:00:00 AM EDT tablet 30 TAKE ONE TABLET BY MOUTH EVERY 4 TO 6 HOURS NEEDED FOR PAIN, MAXIMUM DAILY DOSE = 6 TAKE ONE TABLET BY MOUTH EVERY 4 TO 6 HOURS NEEDED FOR PAIN, MAXIMUM DAILY DOSE = 6 SOLD: 12/02/2019 [facility] Acetaminophen 300 MG / Codeine Phosphate 60 MG Oral Tablet [Tylenol with Codeine] Tylenol With Codeine #4 12/02/2019 12:00:00 AM EDT ORAL active [facility] ([facility]) Acetaminophen 325 MG / Hydrocodone Bitartrate 5 MG Ora l Tablet Hydrocodone Bitartrate/Acetaminophen 11/27/2019 12:00:00 AM EDT ORAL active [facility] ([facility]) 5-325 mg 11/27/2019 12:00:00 AM EDT tablet 14 TAKE ONE TABLET BY MOUTH TWICE A DAY NEEDED FOR BACK PAIN AND HIP PAIN MAXIMUM DAILY DOSE = 2 TAKE ONE TABLET BY MOUTH TWICE A DAY NEEDED FOR BACK PAIN AND HIP PAIN MAXIMUM DAILY DOSE = 2 SOLD: 11/27/2019 [facility] 50 mg 11/26/2019 12:00:00 AM EDT tablet 9 TAKE ONE TABLET BY MOUTH THREE TIMES A DAY NEEDED FOR PAIN, MAXIMUM DAILY DOSE = 3 TAKE ONE TABLET BY MOUTH THREE TIMES A DAY NEEDED FOR PAIN, MAXIMUM DAILY DOSE = 3 SOLD: 11/26/2019 [facility] 1 mg 11/21/2019 12:00:00 AM EDT tablet 90 TAKE 1 TABLET BY MOUTH ONCE DAILY AT BEDTIME MAXIMUM DAILY DOSE = 1 TAKE 1 TABLET BY MOUTH ONCE DAILY AT BED TIME MAXIMUM DAILY DOSE = 1 SOLD: 02/19/2020 [facility] 1 mg 11/21/2019 12:00:00 AM EDT tablet 90 TAKE 1 TABLET BY MOUTH ONCE DAILY AT BEDTIME MAXIMUM DAILY DOSE = 1 TAKE 1 TABLET BY MOUTH ONCE DAILY AT BED TIME MAXIMUM DAILY DOSE = 1 SOLD: 11/21/2019 [facility] 25 mg 11/18/2019 12:00:00 AM EDT tablet 90 TAKE 1 TABLET BY MOUTH ONCE DAILY AT BEDTIME TAKE 1 TABLET BY MOUTH ONCE DAILY AT BEDTIME SOLD: 11/18/2019 [facility] 25 mg 11/18/2019 12:00:00 AM EDT tablet 90 TAKE 1 TABLET BY MOUTH ONCE DAILY AT BEDTIME TAKE 1 TABLET BY MOUTH ONCE DAILY AT BEDTIME SOLD: 02/13/2020 [facility] Alprazolam 0.5 MG Oral Tablet ALPRAZOLAM 11/15/2019 12:00:00 AM EDT ta blet 30 TAKE ONE TABLET BY MOUTH AT BEDTIME NEEDED MAXIMUM DAILY DOSE = 1 TAKE ONE TABLET BY MOUTH AT BEDTIME NEEDED MAXIMUM DAILY DOSE = 1 SOLD: 11/15/2019 [facility] 25 mg 11/06/2019 12:00:00 AM EDT tablet 30 TAKE ONE TABLET BY MOUTH EVERY DAY TAKE ONE TABLET BY MOUTH EVERY DAY SOLD: 04/26/2020 [facility] 25 mg 11/06/2019 12:00:00 AM EDT tablet 30 TAKE ONE TABLET BY MOUTH EVERY DAY TAKE ONE TABLET BY MOUTH EVERY DAY SOLD: 02/26/2020 [facility] tramadol hydrochloride 50 MG Oral Tablet Tramadol HCL 11/06/2019 12:00:00 AM EDT ORAL completed [facility] ([facility]) 25 mg 11/06/2019 12:00:00 AM EDT tablet 30 TAKE ONE TABLET BY MOUTH EVERY DAY TAKE ONE TABLET BY MOUTH EVERY DAY SOLD: 12/30/2019 [facility] 25 mg 11/06/2019 12:00:00 AM EDT tablet 30 TAKE ONE TABLET BY MOUTH EVERY DAY TAKE ONE TABLET BY MOUTH EVERY DAY SOLD: 11/06/2019 [facility] 25 mg 11/06/2019 12:00:00 AM EDT tablet 30 TAKE ONE TABLET BY MOUTH EVERY DAY TAKE ONE TABLET BY MOUTH EVERY DAY SOLD: 12/02/2019 [facility] tramadol hydrochloride 50 MG Oral Tablet TRAMADOL HCL 11/06/2019 12:00:00 AM EDT tablet 14 TAKE ONE TABLET BY MOUTH TWICE A DAY NEEDED FOR BACK PAIN MAXIMUM DAILY DOSE = 2 TAKE ONE TABLET BY MOUTH TWICE A DAY NEEDED FOR BACK PAIN MAXIMUM DAILY DOSE = 2 SOLD: 11/06/2019 [facility] 25 mg 11/06/2019 12:00:00 AM EDT tablet 30 TAKE ONE TABLET BY MOUTH EVERY DAY TAKE ONE TABLET BY MOUTH EVERY DAY SOLD: 03/28/2020 [facility] tramadol hydrochloride 50 MG Oral Tablet Tramadol HCL 11/06/2019 12:00:00 AM EDT ORAL completed [facility] ([facility] 25 mg 11/06/2019 12:00:00 AM EDT tablet 30 TAKE ONE TABLET BY MOUTH EVERY DAY TAKE ONE TABLET BY MOUTH EVERY DAY SOLD: 01/27/2020 [facility] 75 mg 10/31/2019 12:00:00 AM EDT tablet 90 TAKE 1 TABLET BY MOUTH ONCE DAILY TAKE 1 TABLET BY MOUTH ONCE DAILY SOLD: 10/31/2019 [facility] 75 mg 10/31/2019 12:00:00 AM EDT tablet 90 TAKE 1 TABLET BY MOUTH ONCE DAILY TAKE 1 TABLET BY MOUTH ONCE DAILY SOLD: 01/27/2020 [facility] 25 mg 10/24/2019 12:00:00 AM EDT tablet 30 TAKE 1 TABLET BY MOUTH ONCE DAILY AT BEDTIME TAKE 1 TABLET BY MOUTH ONCE DAILY AT BEDTIME SOLD: 10/24/2019 [facility] 10 mg 10/23/2019 12:00:00 AM EDT tablet 30 TAKE FOUR TABLETS BY MOUTH EVERY DAY FOR 3 DAYS THEN 3 TABS. DAILY FOR 3 DAYS THEN 2 TABS. DAILY FOR 3 DAYS THEN 1 TAB.. DAILY FOR 3 DAYS UNTIL SEEN TAKE FOUR TABLETS BY MOUTH EVERY DAY FOR 3 DAYS THEN 3 TABS. DAILY FOR 3 DAYS THEN 2 TABS. DAILY FOR 3 DAYS THEN 1 TAB.. DAILY FOR 3 DAYS UNTIL SEEN SOLD: 10/23/2019 [facility] 25 mg 10/23/2019 12:00:00 AM EDT tablet 30 TAKE 1 TABLET BY MOUTH ONCE DAILY TAKE 1 TABLET BY MOUTH ONCE DAILY SOLD: 10/23/2019 [facility] 25 mg 10/23/2019 12:00:00 AM EDT tablet 30 TAKE 1 TABLET BY MOUTH ONCE DAILY TAKE 1 TABLET BY MOUTH ONCE DAILY SOLD: 12/15/2019 [facility] 25 mg 10/23/2019 12:00:00 AM EDT tablet 30 TAKE 1 TABLET BY MOUTH ONCE DAILY TAKE 1 TABLET BY MOUTH ONCE DAILY SOLD: 11/18/2019 [facility] 25 mg 10/23/2019 12:00:00 AM EDT tablet 30 TAKE 1 TABLET BY MOUTH ONCE DAILY TAKE 1 TABLET BY MOUTH ONCE DAILY SOLD: 02/10/2020 [facility] 25 mg 10/23/2019 12:00:00 AM EDT tablet 30 TAKE 1 TABLET BY MOUTH ONCE DAILY TAKE 1 TABLET BY MOUTH ONCE DAILY SOLD: 04/10/2020 [facility] Losartan Potassium 25 MG Oral Tablet Losartan Potassium 12:00:00 AM EDT active [facility] ([facility]) Prednisone 10 MG Oral Tablet Prednisone 10/23/2019 12:00:00 AM EDT completed [facility] ([facility]) Losartan Potassium 25 MG Oral Tablet LOSARTAN POTASSIUM 12:00:00 AM EDT tablet 30 TAKE 1 TABLET BY MOUTH ONCE DAILY TAKE 1 TABLET BY MOUTH ONCE DAILY SOLD: 03/10/2020 [facility] 25 mg 10/23/2019 12:00:00 AM EDT tablet 30 TAKE 1 TABLET BY MOUTH ONCE DAILY TAKE 1 TABLET BY MOUTH ONCE DAILY SOLD: 01/12/2020 [facility] Alprazolam 0.5 MG Oral Tablet ALPRAZOLAM 10/15/2019 12:00:00 AM EDT ta blet 30 TAKE 1 TABLET BY MOUTH EVERY DAY AT BEDTIME NEEDED MAXIMUM DAILY DOSE = 1 TAKE 1 TABLET BY MOUTH EVERY DAY AT BEDTIME NEEDED MAXIMUM DAILY DOSE = 1 SOLD: 10/15/2019 [facility] Hydroxychloroquine Sulfate 200 MG Oral Tablet HYDROXYCHLOROQ UINE SULFATE 09/24/2019 12:00:00 AM EDT tablet 60 TAKE ONE TABLET BY MOUTH EVERY DAY, THEN INCREASE TO TWO TIMES A DAY AFTER 7 DAYS TAKE ONE TABLET BY MOUTH EVERY DAY, THEN INCREASE TO TWO TIMES A DAY AFTER 7 DAYS SOLD: 12/12/2019 [facility] 40 mg 09/24/2019 12:00:00 AM EDT tablet 90 TAKE ONE TABLET BY MOUTH EVERY DAY TAKE ONE TABLET BY MOUTH EVERY DAY SOLD: 09/24/2019 [facility] Hydroxychloroquine Sulfate 200 MG Oral Tablet HYDROXYCHLOROQ UINE SULFATE 09/24/2019 12:00:00 AM EDT tablet 60 TAKE ONE TABLET BY MOUTH EVERY DAY, THEN INCREASE TO TWO TIMES A DAY AFTER 7 DAYS TAKE ONE TABLET BY MOUTH EVERY DAY, THEN INCREASE TO TWO TIMES A DAY AFTER 7 DAYS SOLD: 11/15/2019 [facility] Hydroxychloroquine Sulfate 200 MG Oral Tablet HYDROXYCHLOROQ UINE SULFATE 09/24/2019 12:00:00 AM EDT tablet 60 TAKE ONE TABLET BY MOUTH EVERY DAY, THEN INCREASE TO TWO TIMES A DAY AFTER 7 DAYS TAKE ONE TABLET BY MOUTH EVERY DAY, THEN INCREASE TO TWO TIMES A DAY AFTER 7 DAYS SOLD: 10/20/2019 [facility] 40 mg 09/24/2019 12:00:00 AM EDT tablet 90 TAKE ONE TABLET BY MOUTH EVERY DAY TAKE ONE TABLET BY MOUTH EVERY DAY SOLD: 12/20/2019 [facility] atorvastatin 40 MG Oral Tablet ATORVASTATIN CALCIUM 09/24/2019 1 2:00:00 AM EDT tablet 90 TAKE ONE TABLET BY MOUTH EVERY D AY TAKE ONE TABLET BY MOUTH EVERY DAY SOLD: 06/14/2020 [facility] atorvastatin 40 MG Oral Tablet ATORVASTATIN CALCIUM 09/24/2019 1 2:00:00 AM EDT tablet 90 TAKE ONE TABLET BY MOUTH EVERY D AY TAKE ONE TABLET BY MOUTH EVERY DAY SOLD: 03/18/2020 [facility] Hydroxychloroquine Sulfate 200 MG Oral Tablet HYDROXYCHLOROQ UINE SULFATE 09/24/2019 12:00:00 AM EDT tablet 60 TAKE ONE TABLET BY MOUTH EVERY DAY, THEN INCREASE TO TWO TIMES A DAY AFTER 7 DAYS TAKE ONE TABLET BY MOUTH EVERY DAY, THEN INCREASE TO TWO TIMES A DAY AFTER 7 DAYS SOLD: 09/24/2019 [facility] Hydroxychloroquine Sulfate 200 MG Oral Tablet Hydroxychloroq uine Sulfate 09/23/2019 12:00:00 AM EDT active [facility] ([facility]) atorvastatin 40 MG Oral Tablet Atorvastatin Calcium 09/23/2019 1 2:00:00 AM EDT ORAL active [facility] ( [facility]) Alprazolam 0.5 MG Oral Tablet ALPRAZOLAM 09/18/2019 12:00:00 AM EDT ta blet 30 TAKE ONE TABLET BY MOUTH AT BEDTIME NEEDED MAXIMUM DAILY DOSE = 1 TAKE ONE TABLET BY MOUTH AT BEDTIME NEEDED MAXIMUM DAILY DOSE = 1 SOLD: 09/18/2019 [facility] Amlodipine 5 MG Oral Tablet Amlodipine Besylate 09/17/2019 12:00:00 A M EDT ORAL active [facility] ([facility]) 5 mg 09/17/2019 12:00:00 AM EDT tablet 60 TAKE ONE TABLET BY MOUTH TWICE A DAY TAKE ONE TABLET BY MOUTH TWICE A DAY SOLD: 12/08/2019 [facility] 5 mg 09/17/2019 12:00:00 AM EDT tablet 60 TAKE ONE TABLET BY MOUTH TWICE A DAY TAKE ONE TABLET BY MOUTH TWICE A DAY SOLD: 12/06/2019 [facility] 5 mg 09/17/2019 12:00:00 AM EDT tablet 60 TAKE ONE TABLET BY MOUTH TWICE A DAY TAKE ONE TABLET BY MOUTH TWICE A DAY SOLD: 11/10/2019 [facility] 5 mg 09/17/2019 12:00:00 AM EDT tablet 60 TAKE ONE TABLET BY MOUTH TWICE A DAY TAKE ONE TABLET BY MOUTH TWICE A DAY SOLD: 10/14/2019 [facility] 5 mg 09/17/2019 12:00:00 AM EDT tablet 60 TAKE ONE TABLET BY MOUTH TWICE A DAY TAKE ONE TABLET BY MOUTH TWICE A DAY SOLD: 09/17/2019 [facility] Alprazolam 0.5 MG Oral Tablet ALPRAZOLAM 08/20/2019 12:00:00 AM EST ta blet 30 TAKE ONE TABLET BY MOUTH AT BEDTIME NEEDED MAXIMUM DAILY DOSE = 1 TAKE ONE TABLET BY MOUTH AT BEDTIME NEEDED MAXIMUM DAILY DOSE = 1 SOLD: 08/20/2019 [facility] Furosemide 20 MG Oral Tablet furosemide (LASIX) 20 MG tablet furosemide (LASIX) 20 MG tablet 07/24/2019 12:00:00 AM EST 20 mg Oral activ e Take 20 mg by mouth daily [facility] 20 mg 07/24/2019 12:00:00 AM EST tablet 30 TAKE ONE TABLET BY MOUTH EVERY DAY TAKE ONE TABLET BY MOUTH EVERY DAY SOLD: 08/20/2019 [facility] 20 mg 07/24/2019 12:00:00 AM EST tablet 30 TAKE ONE TABLET BY MOUTH EVERY DAY TAKE ONE TABLET BY MOUTH EVERY DAY SOLD: 09/16/2019 [facility] 20 mg 07/24/2019 12:00:00 AM EST tablet 30 TAKE ONE TABLET BY MOUTH EVERY DAY TAKE ONE TABLET BY MOUTH EVERY DAY SOLD: 07/25/2019 [facility] 40 mg 07/23/2019 12:00:00 AM EST tablet 30 TAKE ONE TABLET BY MOUTH EVERY DAY TAKE ONE TABLET BY MOUTH EVERY DAY SOLD: 12/03/2019 [facility] 40 mg 07/23/2019 12:00:00 AM EST tablet 30 TAKE ONE TABLET BY MOUTH EVERY DAY TAKE ONE TABLET BY MOUTH EVERY DAY SOLD: 07/23/2019 [facility] 40 mg 07/23/2019 12:00:00 AM EST tablet 30 TAKE ONE TABLET BY MOUTH EVERY DAY TAKE ONE TABLET BY MOUTH EVERY DAY SOLD: 09/13/2019 [facility] 40 mg 07/23/2019 12:00:00 AM EST tablet 30 TAKE ONE TABLET BY MOUTH EVERY DAY TAKE ONE TABLET BY MOUTH EVERY DAY SOLD: 08/18/2019 [facility] Famotidine 40 MG Oral Tablet Famotidine 07/23/2019 12:00:00 AM EST active [facility] ([facility]) Furosemide 20 MG Oral Tablet Furosemide 07/23/2019 12:00:00 AM EST ORAL completed [facility] ([facility]) 40 mg 07/23/2019 12:00:00 AM EST tablet 30 TAKE ONE TABLET BY MOUTH EVERY DAY TAKE ONE TABLET BY MOUTH EVERY DAY SOLD: 11/06/2019 [facility] 40 mg 07/23/2019 12:00:00 AM EST tablet 30 TAKE ONE TABLET BY MOUTH EVERY DAY TAKE ONE TABLET BY MOUTH EVERY DAY SOLD: 10/10/2019 [facility] Alprazolam 0.5 MG Oral Tablet ALPRAZOLAM 07/23/2019 12:00:00 AM EST ta blet 30 TAKE ONE TABLET BY MOUTH AT BEDTIME NEEDED, MAXIMUM DAILY DOSE = 1 TAKE ONE TABLET BY MOUTH AT BEDTIME NEEDED, MAXIMUM DAILY DOSE = 1 SOLD: 07/23/2019 [facility] 40 mg 07/23/2019 12:00:00 AM EST tablet 30 TAKE ONE TABLET BY MOUTH EVERY DAY TAKE ONE TABLET BY MOUTH EVERY DAY SOLD: 12/30/2019 [facility] Metoprolol Tartrate 25 MG Oral Tablet me toprolol tartrate (LOPRESSOR) 25 MG tablet metoprolol tartrate (LOPRESSOR) 25 MG tablet 07/10/2019 12:0 0:00 AM EST 25 mg Oral active Take 1 tablet (2 5 mg total) by mouth 2 (two) times a day [facility] Alprazolam 0.5 MG Oral Tablet ALPRAZOLAM 06/27/2019 12:00:00 AM EST ta blet 30 TAKE ONE TABLET BY MOUTH AT BEDTIME NEEDED MAXIMUM DAILY DOSE = 1 TAKE ONE TABLET BY MOUTH AT BEDTIME NEEDED MAXIMUM DAILY DOSE = 1 SOLD: 06/27/2019 [facility] 25 mg 06/13/2019 12:00:00 AM EST tablet 30 TAKE ONE TABLET BY MOUTH AT BEDTIME TAKE ONE TABLET BY MOUTH AT BEDTIME SOLD: 07/10/2019 [facility] 25 mg 06/13/2019 12:00:00 AM EST tablet 30 TAKE ONE TABLET BY MOUTH AT BEDTIME TAKE ONE TABLET BY MOUTH AT BEDTIME SOLD: 08/05/2019 [facility] quetiapine 25 MG Oral Tablet QUEtiapine (SEROQUEL) 25 MG tablet QUEtiapine (SEROQUEL) 25 MG tablet 06/13/2019 12:00:00 AM EST 25 mg Oral active Take 25 mg by mouth [facility] 300 mg 06/13/2019 12:00:00 AM EST capsule 180 TAKE ONE CAPSULE BY MOUTH TWICE A DAY TAKE ONE CAPSULE BY MOUTH TWICE A DAY SOLD: 09/08/2019 [facility] 300 mg 06/13/2019 12:00:00 AM EST capsule 180 TAKE ONE CAPSULE BY MOUTH TWICE A DAY TAKE ONE CAPSULE BY MOUTH TWICE A DAY SOLD: 06/13/2019 [facility] 25 mg 06/13/2019 12:00:00 AM EST tablet 30 TAKE ONE TABLET BY MOUTH AT BEDTIME TAKE ONE TABLET BY MOUTH AT BEDTIME SOLD: 09/27/2019 [facility] 1 mg 06/13/2019 12:00:00 AM EST tablet 90 TAKE ONE TABLET BY MOUTH AT BEDTIME TAKE ONE TABLET BY MOUTH AT BEDTIME SOLD: 09/08/2019 [facility] 25 mg 06/13/2019 12:00:00 AM EST tablet 30 TAKE ONE TABLET BY MOUTH AT BEDTIME TAKE ONE TABLET BY MOUTH AT BEDTIME SOLD: 09/01/2019 [facility] 25 mg 06/13/2019 12:00:00 AM EST tablet 30 TAKE ONE TABLET BY MOUTH AT BEDTIME TAKE ONE TABLET BY MOUTH AT BEDTIME SOLD: 06/13/2019 [facility] 1 mg 06/13/2019 12:00:00 AM EST tablet 90 TAKE ONE TABLET BY MOUTH AT BEDTIME TAKE ONE TABLET BY MOUTH AT BEDTIME SOLD: 06/13/2019 [facility] quetiapine 25 MG Oral Tablet Quetiapine Fumarate 06/12/2019 12:00:00 AM EST ORAL active [facility] ([facility]) 80 mg 06/11/2019 12:00:00 AM EST tablet 90 TAKE ONE TABLET BY MOUTH EVERY DAY TAKE ONE TABLET BY MOUTH EVERY DAY SOLD: 06/11/2019 [facility] 0.5 mg 05/29/2019 12:00:00 AM EST tablet 30 TAKE ONE TABLET BY MOUTH AT BEDTIME NEEDED MAXIMUM DAILY DOSE = 1 TAKE ONE TABLET BY MOUTH AT BEDTIME NEEDED MAXIMUM DAILY DOSE = 1 SOLD: 05/29/2019 [facility] 25 mg 05/01/2019 12:00:00 AM EDT tablet 30 TAKE ONE TABLET BY MOUTH EVERY DAY TAKE ONE TABLET BY MOUTH EVERY DAY SOLD: 07/22/2019 [facility] 25 mg 05/01/2019 12:00:00 AM EDT tablet 30 TAKE ONE TABLET BY MOUTH EVERY DAY TAKE ONE TABLET BY MOUTH EVERY DAY SOLD: 09/15/2019 [facility] 25 mg 05/01/2019 12:00:00 AM EDT tablet 30 TAKE ONE TABLET BY MOUTH EVERY DAY TAKE ONE TABLET BY MOUTH EVERY DAY SOLD: 10/11/2019 [facility] 25 mg 05/01/2019 12:00:00 AM EDT tablet 30 TAKE ONE TABLET BY MOUTH EVERY DAY TAKE ONE TABLET BY MOUTH EVERY DAY SOLD: 08/18/2019 [facility] 25 mg 05/01/2019 12:00:00 AM EDT tablet 30 TAKE ONE TABLET BY MOUTH EVERY DAY TAKE ONE TABLET BY MOUTH EVERY DAY SOLD: 06/24/2019 [facility] 25 mg 05/01/2019 12:00:00 AM EDT tablet 30 TAKE ONE TABLET BY MOUTH EVERY DAY TAKE ONE TABLET BY MOUTH EVERY DAY SOLD: 05/29/2019 [facility] 60 mg 04/01/2019 12:00:00 AM EDT capsule,delayed release (DR/EC) 180 TAKE ONE CAPSULE BY MOUTH TWICE A DAY TAKE ONE CAPSULE BY MOUTH TWICE A DAY SOLD: 06/27/2019 [facility] 60 mg 04/01/2019 12:00:00 AM EDT capsule,delayed release (DR/EC) 180 TAKE ONE CAPSULE BY MOUTH TWICE A DAY TAKE ONE CAPSULE BY MOUTH TWICE A DAY SOLD: 09/22/2019 [facility] 60 mg 04/01/2019 12:00:00 AM EDT capsule,delayed release (DR/EC) 180 TAKE ONE CAPSULE BY MOUTH TWICE A DAY TAKE ONE CAPSULE BY MOUTH TWICE A DAY SOLD: 12/17/2019 [facility] 324 mg (37.5 mg iron) 12/27/2018 12:00:00 AM EDT tablet 3 0 TAKE ONE TABLET BY MOUTH EVERY DAY TAKE ONE TABLET BY MOUTH EVERY DAY SOLD: 09/10/2019 [facility] 150 mg 12/27/2018 12:00:00 AM EDT tablet 30 TAKE 1 TABLET BY MOUTH IN THE EVENING BEFORE BED TAKE 1 TABLET BY MOUTH IN THE EVENING BEFORE BED SOLD: 06/28/2019 [facility] 150 mg 12/27/2018 12:00:00 AM EDT tablet 30 TAKE 1 TABLET BY MOUTH IN THE EVENING BEFORE BED TAKE 1 TABLET BY MOUTH IN THE EVENING BEFORE BED SOLD: 06/02/2019 [facility] 324 mg (37.5 mg iron) 12/27/2018 12:00:00 AM EDT tablet 3 0 TAKE ONE TABLET BY MOUTH EVERY DAY TAKE ONE TABLET BY MOUTH EVERY DAY SOLD: 10/06/2019 [facility] 324 mg (37.5 mg iron) 12/27/2018 12:00:00 AM EDT tablet 3 0 TAKE ONE TABLET BY MOUTH EVERY DAY TAKE ONE TABLET BY MOUTH EVERY DAY SOLD: 10/09/2019 [facility] Losartan Potassium 50 MG Oral Tablet losartan (COZAAR) 50 MG tablet losartan (COZAAR) 50 MG tablet 50 mg Oral aborted Take 50 mg by mouth 2 (two) times a day [facility] Insurance Providers Payer name Policy type / Coverage type Policy ID Covered alliance party ID Covered alliance party's relationship to thompson Policy Thompson Plan Information EMEDNY [id number] SP [id number] MEDICARE [id number] SP [id number] MEDICARE [id number] SP [id number] MEDICAID [id number] MEDICARE [id number] MEDICARE [id number] Jewell [id number] [id number] HUMANA GOLD O [id number] S [id number] MEDICAID [id number] HUMANA GOLD [id number] SP [id number] MEDICARE C [id number] S [id number] EMEDNY [id number] SP [id number] MEDICAID [id number] SP [id number] MEDICARE [id number] Jewell [id number] Y64 MEDICARE [id number] SP [id number] A MEDICAID [id number] SP [id number] 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 [id number] Self [id number] Medicaid Medigap Part B [id number] Self [id number] Medicare Natl Govt Servic Medicare Primary [id number] Self [id number] MEDICAID [id number] SP [id number] MEDICAID [id number] SP [id number] 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 [id number] Self [id number] Medicaid Medigap Part B [id number] Self [id number] Medicare [place]l Govt Servic Medicare Primary [id number] Self [id number] 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 [id number] Self [id number] Medicaid Medigap Part B [id number] Self [id number] Medicare [place] Govt Servic Medicare Primary [id number] Self [id number] Medicaid Medigap Part B [id number] Self [id number] 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 [id number] Self [id number] Medicare [place]l Govt Servic Medicare Primary [id number] Self [id number] Medicaid Medigap Part B [id number] Self [id number] 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 [id number] Self [id number] Medicare [place] Govt Servic Medicare Primary [id number] Self [id number] Medicaid Medigap Part B [id number] Self [id number] 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 [id number] Self [id number] Medicare [place] Govt Servic Medicare Primary [id number] Self [id number] Medicaid Medigap Part B [id number] Self [id number] 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 [id number] Self [id number] Medicare [place] Govt Servic Medicare Primary [id number] Self [id number] MEDICAID UNAVAILABLE [place] BLE [place] Primary [id number] Self [id number] Medicaid Medigap Part B [id number] Self [id number] 63C 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 [id number] Self [id number] Medicare [place] Govt Servic Medicare Primary [id number] Self [id number] MEDICAID [id number] Jewell [id number] MEDICARE [id number] Jewell [id number] Medicaid Medigap Part B [id number] Self [id number] 63C 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 [id number] Self [id number] Medicare [place] Govt Servic Medicare Primary [id number] Self [id number] Medicaid Medigap Part B [id number] Self [id number] 63C 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 [id number] Self [id number] Medicare [place] Govt Servic Medicare Primary [id number] Self [id number] Medicaid Medigap Part B [id number] Self [id number] 63C 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 [id number] Self [id number] Medicare [place] Govt Serv[employer] Medicare Primary [id number] Self [id number] MEDICARE PI PI Medicaid Medigap Part B [id number] Self [id number] 63C 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 [id number] Self [id number] Medicare [place] Govt Servic Medicare Primary [id number] Self [id number] Medicaid Medigap Part B [id number] Self [id number] 63C 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 [id number] Self [id number] Medicare [place] Govt Servic Medicare Primary [id number] Self [id number] Medicaid Medigap Part B [id number] Self [id number] 63C 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 [id number] Self [id number] Medicare [place] Govt Servic Medicare Primary [id number] Self [id number] MEDICARE C [id number] S [id number] A Medicaid Medigap Part B [id number] Self [id number] 63C 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 [id number] Self [id number] Medicare [place] Govt Servic Medicare Primary [id number] Self [id number] Medicaid Medigap Part B [id number] Self [id number] 63C 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 [id number] Self [id number] Medicare [place] Govt Servic Medicare Primary [id number] Self [id number] MEDICAID [id number] SP [id number] Medicaid Medigap Part B [id number] Self [id number] 63C 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 [id number] Self [id number] Medicare [place] Govt Servic Medicare Primary [id number] Self [id number] Medicaid Medigap Part B [id number] Self [id number] 63C 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 [id number] Self [id number] Medicare [place] Govt Serv[employer] Medicare Primary [id number] Self [id number] MEDICARE [id number] SP [id number] [place]ig[place] Part B Self Medicare [place] Gov't Servi Medicare Primary Self Medicaid Medigap Part B 1 1 Self 1 1 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 Self Medicare [facility] Govt Servic Medicare Primary Self [place] Medigap Part B Self Medicare [facility] Medicare Primary Self [facility] () Workers 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 Self OTHER WORKERS COMPENSATION [id number] SP [id number] A Problems, Conditions, and Diagnoses Code Display Name Description Problem Type Effective Dates Data Source(s) I25.5 Ischemic cardiomyopathy Ischemic cardiomyopathy 291481 2020 12:00:00 AM EST [facility] M47.816 [id number] Lumbar spondylosis Problem 06/04/2020 12:00: 00 AM EST eCW1 ([facility]) I77.6 [id number] Vasculitis Problem 06/04/2020 12:00:00 AM ES T eCW1 ([facility]) M79.7 [id number] Fibromyalgia Problem 01/21/2020 12:00:00 AM EDT eCW1 ([facility]) 81543549 Neck pain Neck pain Problem 11/06/2019 12:00:00 AM ED T [facility] ([facility]) 829204296 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 Problem 11/06/2019 12:00:00 AM EDT [facility] ([facility]) 49575988 Abnormal gait Abnormal gait Problem 10/30/2019 12:00:00 AM EDT [facility] ([facility]) 025523114 Nervous system symptoms Nervous system symptoms Proble m 10/30/2019 12:00:00 AM EDT [facility] ([facility]) 556631605 CVA - cerebrovascular accident due to ce rebral artery occlusion CVA - cerebrovascular accident due to cerebral artery occlusion Problem 06/18/2019 12:00:00 AM EST [facility] ([facility]) 95692232 Essential hypertension Essential hypertension Problem 06/14/2019 12:00:00 AM EST [facility] ([facility]) I10 Essential (primary) hypertension Essential (primary) h ypertension Diagnosis 06/12/2020 01:26:55 PM EST [facility] E78.5 Hyperlipidemia, unspecified Hyperlipidemia, unspecifie d Diagnosis 06/12/2020 01:26:55 PM [facility] N18.9 Chronic kidney disease, unspecified Chronic kidn ey disease, unspecified Diagnosis 06/12/2020 01:26:55 PM [facility] Z72.0 Tobacco use Tobacco use Diagnosis 06/12/2020 01:26:55 PM [facility] I25.83 Coronary atherosclerosis due to lipid ri ch plaque Coronary atherosclerosis due to lipid ri Diagnosis 06/12/2020 01:26:55 PM [facility] I25.10 Atherosclerotic heart diseas e of [facility] coronary artery without angina pectoris Atherosclerotic heart disease of [facility] Diagnosis 06/12/2020 01:26:55 PM [facility] F41.9 Anxiety disorder, unspecified Anxiety disorder, unspec ified Diagnosis 10/23/2019 12:50:14 PM EDT [facility] D64.9 Anemia, unspecified Anemia, unspecified Diagnosis 0 10/23/2019 12:50:14 PM EDT [facility] Z86.73 Personal history of transien t ischemic attack (TIA), and cerebral infarction without residual deficits Personal history of transient ischemic a Diagnosis 10/23/2019 12:50:14 PM EDT [facility] M79.606 Pain in leg, unspecified Pain in leg, unspecified Diag nosis 07/10/2019 12:22:38 PM [facility] Surgeries/Procedures Procedure Description Date Indications Data Source(s) RADEX SPINE LUMBOSACRAL 2/3 VIEWS 06/18/2020 12:00:00 AM EST [facility] ([facility]) Needle electromyography, each extremity, with related paraspinal areas, when performed, done with nerve conduction, amplitude and latency/velocity study; complete, five or more muscles studied, innervated by three or more nerves or four or more spinal levels (list separately in addition to the code for primary procedure). 06/15/2020 12:00:00 AM EST ANITHA T ([facility]) Needle electromyography, each extremity, with related paraspinal areas, when performed, done with nerve conduction, amplitude and latency/velocity study; complete, five or more muscles studied, innervated by three or more nerves or four or more spinal levels (list separately in addition to the code for primary procedure). 06/15/2020 12:00:00 AM EST MEDEN T ([facility] ) Nerve Conduction 11-12 Studies 06/15/2020 12:00:00 AM EST [facility] ([facility] ) ECG ROUTINE ECG W/LEAST 12 LDS W/I&R POCT AMB EKG Routine 06/12/2020 5:31 PM EST Coronary artery disease due to lipid rich plaque Essential hypertension 06/12/2020 10:31:00 PM EST Essential hypertensionCoronary artery disease due to lipid rich plaque [facility] Essential hypertension Coronary artery disease due to lipid tristian h plaque HEPATIC FUNCTION PANEL HEPATIC FUNCTION PANEL Routine 05/26/2020 05/26/2020 12:00:00 AM EST [facility] BASIC METABOLIC PANEL CALCIUM TOTAL BASIC METABOLIC PANEL Routine 05/26/2020 05/26/2020 12:00:00 AM [facility] BLOOD COUNT COMPLETE AUTO&AUTO DIFRNTL WBC COUNT CBC AND DIFFER ENTIAL Routine 04/21/2020 04/21/2020 12:00:00 AM EDT [facility] Diabetic Retinal Eye Exam 02/25/2020 12:00:00 AM EDT [facility] ([facility]) RADEX SPINE LUMBOSACRAL 2/3 VIEWS 01/28/2020 12:00:00 AM EDT [facility] ([facility] RADEX SPINE LUMBOSACRAL 2/3 VIEWS 12/16/2019 12:00:00 AM EDT [facility] ([facility] ) CLTX VRT BDY FX W/O MANJ REQ&W/CSTING/BRACING 12/02/19 12:00:00 AM EDT [facility] ([facility] ) MRI BRAIN BRAIN STEM W/O CONTRAST MATERIAL 11/02/2019 12:00:00 AM EDT [facility] ([facility] MRI BRAIN BRAIN STEM W/O CONTRAST MATERIAL 11/02/2019 12:00:00 AM EDT [facility] ([facility] MRI SPINAL CANAL CERVICAL W/O CONTRAST MATRL 0 12:00:00 AM EDT [facility] ([facility] MRI SPINAL CANAL CERVICAL W/O CONTRAST MATRL 0 12:00:00 AM EDT [facility] ([facility]) RADEX HAND MINIMUM 3 VIEWS 08/23/2019 12:00:00 AM EST [facility] ([facility]) RADEX HAND MINIMUM 3 VIEWS 07/25/2019 12:00:00 AM EST [facility] ([facility]) RADEX HAND MINIMUM 3 VIEWS 07/11/2019 12:00:00 AM EST [facility] ([facility]) APPLICATION CAST ELBOW FINGER SHORT ARM 07/04/2019 12: 00:00 AM EST [facility] ([facility]) CLTX METACARPAL FX W/O MANIPULATION EACH BONE 06/13/20 12:00:00 AM EST [facility] ([facility]) Results ID Date Data Source [id number] 07/10/2020 03:17:00 PM EST [facility] ([facility]) Name Value Range Interpretation Code Description Data Amber rce(s) Supporting Document(s) Creatinine [Mass/volume] in Urine 341.0 mg/dL [facility] ([facility]) <content>note:<nlbl:demographic_changed> </content>
<content></content> Protein [Mass/volume] in Urine 198.0 mg/dL 0.0-12.0 [facility] ([facility]) <content>note:<nlbl:demographic_changed> </content>
<content></content> ID Date Data Source [id number] 07/10/2020 03:14:00 PM EST [facility]) Name Value Range Interpretation Code Description Data Amber rce(s) Supporting Document(s) Complement C3 [Mass/volume] in Serum or Plasma 139 mg/dL 90-180 [facility] ([facility]) <content>note:<nlbl:demographic_changed> </content>
<content></content> Complement C4 [Mass/volume] in Serum or Plasma 29 mg/dL 10-40 [facility] ([facility]) <content>note:<nlbl:demographic_changed> </content>
<content></content> C reactive protein [Mass/volume] in Serum or Plasma by High sensitivity method 2.83 mg/dL 0.00-0.30 [facility] ([facility] ) <content>note:<nlbl:demographic_changed> </content>
<content></content> ID Date Data Source [id number] 07/10/2020 03:14:00 PM EST [facility] ([facility]) Name Value Range Interpretation Code Description Data Amber rce(s) Supporting Document(s) Blood Urea Nitrogen 15 mg/dL 7-18 [facility] ([facility]) Glucose, Fasting 110 mg/dL 70-100 [facility] ([facility]) Creatinine For GFR 1.55 mg/dL 0.55-1.30 [facility] ([facility]) Glomerular Filtration Rate 34.8 [facility] ([facility]) <content>Units are mL/min/1.73 m2</content>
<content></content>
<content>Chronic Kidney Disease Staging per NKF:</content>
<content></content>
<content>Stage I & II GFR >=60 Normal to Mildly Decreased</content>
<content>Stage III GFR 30- 59 Moderately Decreased</content>
<content>Stage IV GFR 15-29 Severely Decreased</content>
<content>Stage V GFR <15 Very Little GFR Left</content>
<content>ESRD GFR <15 on ELECTRICAL SIGN WIRER</content>
<content></content> Sodium Level 138 meq/L 136-145 [facility] ([facility]) Chloride Level 110 meq/L 98-107 [facility] ([facility]) Carbon Dioxide Level 24 meq/L 21-32 [facility] ([facility]) Potassium Serum 4.9 meq/L 3.5-5.1 [facility] ([facility]) Calcium Level 8.5 mg/dL 8.8-10.2 [facility] ([facility]) Anion Gap 4 meq/L 8-16 [facility] ([facility]) Ast/Sgot 5 U/L 7-37 [facility] ([facility]) Alt/SGPT 10 U/L 12-78 [facility] ([facility]) Bilirubin,Total 0.2 mg/dL 0.2-1.0 [facility] ([facility]) Alkaline Phosphatase 92 U/L 45-117 [facility] ([facility]) Albumin 2.7 GM/DL 3.2-5.2 [facility] ([facility]) Total Protein 6.7 GM/DL 6.4-8.2 [facility] ([facility]) Albumin/Globulin Ratio 0.7 1.2-2.2 [facility] ([facility]) ID Date Data Source [id number] 07/10/2020 03:14:00 PM EST [facility] ([facility]) Name Value Range Interpretation Code Description Data Amber rce(s) Supporting Document(s) Erythrocyte sedimentation rate by Westergren method 79 mm/hr 0-30 [facility] ([facility]) ID Date Data Source [id number] 07/10/2020 03:14:00 PM EST [facility] ([facility]) Name Value Range Interpretation Code Description Data Amber rce(s) Supporting Document(s) White Blood Count 11.3 10 4.0-10.0 [facility] ([facility]) Hemoglobin 9.7 g/dL 12.0-15.5 [facility] ([facility]) Red Blood Count 3.54 10 4.00-5.40 [facility] ([facility]) Hematocrit 32.0 % 36.0-47.0 [facility] ([facility]) Mean Corpuscular Volume 90.4 fl 80.0-96.0 [facility] ([facility]) Mean Corpuscular Hemoglobin 27.4 pg 27.0-33.0 ME DENT ([facility]) Mean Corpuscular HGB Conc 30.3 g/dL 32.0-36.5 MEDE NT ([facility]) Red Cell Distribution Width 16.1 % 11.5-14.5 MS D[facility] ([facility]) Platelet Count, Automated 450 10 150-450 MED[facility] NT ([facility]) Neutrophils % 61.2 % 36.0-66.0 [facility] ([facility]) Lymph % 18.6 % 24.0-44.0 [facility] ([facility]) [place] % 9.1 % 0.0-5.0 [facility]) Eos % 10.2 % 0.0-3.0 [facility]) Immature Granulocyte % 0.4 % 0-3.0 [facility] ([facility]) Baso % 0.5 % 0.0-1.0 [facility]) Neutrophils # 6.9 10 1.5-8.5 [facility] ([facility]) Nucleated Red Blood Cell % 0.0 % 0-0 [facility] ([facility]) Lymph # 2.1 10 1.5-5.0 [facility]) [place]ac # 1.0 10 0.0-0.8 [facility]) Eos # 1.2 10 0.0-0.5 [facility]) Baso # 0.1 10 0.0-0.2 [facility]) ID Date Data Source RHEUMATOID FACTOR QUANT 06/04/2020 12:00:00 AM EST eCW1 ([facility]) Name Value Range Interpretation Code Description Data Amber rce(s) Supporting Document(s) 67.1 <15.0 eCW1 ([facility]) ID Date Data Source IgG SUBCLASS 4 06/04/2020 12:00:00 AM EST eCW1 ([facility]) Name Value Range Interpretation Code Description Data Amber rce(s) Supporting Document(s) 237 2-96 eCW1 ([facility]) ID Date Data Source CREATININE,RANDOM URINE 06/04/2020 12:00:00 AM EST eCW1 ([facility]) Name Value Range Interpretation Code Description Data Amber rce(s) Supporting Document(s) 267.0 eCW1 ([facility]) ID Date Data Source LAKESHA TITER & PATTERN 06/04/2020 12:00:00 AM EST eCW1 ([facility]) Name Value Range Interpretation Code Description Data Amber rce(s) Supporting Document(s) Negative . eCW1 ([facility]) ID Date Data Source ANTI-SJOGRENS A&B ANTIBODIES 06/04/2020 12:00:00 AM EST eCW1 ([facility]) Name Value Range Interpretation Code Description Data Amber rce(s) Supporting Document(s) <0.2 0.0-0.9 eCW1 ([facility]) <0.2 0.0-0.9 eCW1 ([facility]) ID Date Data Source TOTAL PROTEIN,RANDOM URINE 06/04/2020 12:00:00 AM EST eCW1 ( [facility]) Name Value Range Interpretation Code Description Data Amber rce(s) Supporting Document(s) 147.1 0.0-12.0 eCW1 ([facility]) ID Date Data Source HEPATITIS C ANTIBODY INDEX 06/04/2020 12:00:00 AM EST eCW1 ( [facility]) Name Value Range Interpretation Code Description Data Amber rce(s) Supporting Document(s) 0.0 <0.8 eCW1 ([facility]) ID Date Data Source Lupus Anticoagulant with RFX Send Out ONLY 06/04/2020 12:00: 00 AM EST eCW1 ([facility]) Name Value Range Interpretation Code Description Data Amber rce(s) Supporting Document(s) 42.9 0.0-47.0 eCW1 ([facility]) 39.1 0.0-51.9 eCW1 ([facility]) Comment: . eCW1 ([facility]) ID Date Data Source CRYOGLOBULINS 06/04/2020 12:00:00 AM EST eCW1 ([facility]) Name Value Range Interpretation Code Description Data Amber rce(s) Supporting Document(s) NEGATIVE NEGATIVE eCW1 ([facility]) ID Date Data Source ANTI-CARDIOLIPIN ANTIBODIES 06/04/2020 12:00:00 AM EST eCW1 ([facility]) Name Value Range Interpretation Code Description Data Amber rce(s) Supporting Document(s) <9 0-12 eCW1 ([facility]) <9 0-11 eCW1 ([facility]) <9 0-14 eCW1 ([facility]) ID Date Data Source HEPATITIS B CORE ANTIBODY IGG 06/04/2020 12:00:00 AM EST eCW 1 ([facility]) Name Value Range Interpretation Code Description Data Amber rce(s) Supporting Document(s) Negative Negative eCW1 ([facility]) ID Date Data Source ERYTHROCYTE SEDIMENTATION RATE 06/04/2020 12:00:00 AM EST eC W1 ([facility]) Name Value Range Interpretation Code Description Data Amber rce(s) Supporting Document(s) 54 0-30 eCW1 ([facility]) ID Date Data Source HEPATITIS B SURFACE ANTIGEN 06/04/2020 12:00:00 AM EST eCW1 ([facility]) Name Value Range Interpretation Code Description Data Amber rce(s) Supporting Document(s) NEGATIVE NEGATIVE eCW1 ([facility]) ID Date Data Source CPK CREATINE PHOSPHOKINASE 06/04/2020 12:00:00 AM EST eCW1 ( [facility]) Name Value Range Interpretation Code Description Data Amber rce(s) Supporting Document(s) 42 26-192 eCW1 ([facility]) ID Date Data Source COMPLEMENT C4 06/04/2020 12:00:00 AM EST eCW1 ([facility]) Name Value Range Interpretation Code Description Data Amber rce(s) Supporting Document(s) 32 10-40 eCW1 ([facility]) ID Date Data Source COMPLEMENT C3 06/04/2020 12:00:00 AM EST eCW1 ([facility]) Name Value Range Interpretation Code Description Data Amber rce(s) Supporting Document(s) 156 90-180 eCW1 ([facility]) ID Date Data Source BETA-2 GLYCOPROTEIN 1 LEANN ROBERT 06/04/2020 12:00:00 AM EST eCW 1 ([facility]) Name Value Range Interpretation Code Description Data Amber rce(s) Supporting Document(s) <9 0-25 eCW1 ([facility]) <9 0-32 eCW1 ([facility]) <9 0-20 eCW1 ([facility]) ID Date Data Source [id number] 05/26/2020 01:48:00 PM EST [facility] ([facility]) Name Value Range Interpretation Code Description Data Amber rce(s) Supporting Document(s) Glucose [Mass/volume] in Serum or Plasma 117 mg/dL 74-99 [facility] ([facility]) 100-125 mg/dL PRE-DIABETES/FASTING >126 mg/dL DIABETES/FASTING Urea nitrogen [Mass/volume] in Serum or Plasma 12 mg/dL 7-18 [facility] ([facility]) Sodium [Moles/volume] in Serum or Plasma 142 meq/L 136-145 [facility] ([facility]) Creatinine 1.6 mg/dL 0.6-1.3 [facility] Chloride [Moles/volume] in Serum or Plasma 106 meq/L 98-107 [facility] ([facility]) Carbon dioxide, total [Moles/volume] in Serum or Plasma 25 meq/L 21 -32 [facility] ([facility]) Potassium [Moles/volume] in Serum or Plasma 3.5 meq/L 3.5-5.1 [facility] ([facility]) Calcium [Mass/volume] in Serum or Plasma 8.6 mg/dL 8.5-10.1 [facility] ([facility]) Total Bilirubin 0.2 mg/dL 0.2-1.0 [facility] ([facility]) Aspartate aminotransferase [Enzymatic activity/volume] in Serum or Plasma 12 U/L 15-37 [facility] ([facility] ) Alkaline phosphatase isoenzyme [Units/volume] in Serum or Pl asma 92 mg/dL 46-116 [facility] ([facility]) Proteinase 3 Ab [Units/volume] in Serum 7.2 g/dL 6.4-8.2 [facility] ([facility]) Alanine aminotransferase [Enzymatic activity/volume] in Seru m or Plasma 13 U/L 12-78 [facility] Albumin [Mass/volume] in Serum or Plasma 3.2 g/dL 3.4-5.0 [facility] ([facility]) Glomerular filtration rate/1.73 sq M pre dicted among non-blacks [Volume Rate/Area] in Serum or Plasma by Creatinine-based formula (MDRD) 32 mL/min [facility] Glomerular filtration rate/1.73 sq M pre dicted among blacks [Volume Rate/Area] in Serum or Plasma by Creatinine-based formula (MDRD) 38 mL/min [facility] <content>CHRONIC KIDNEY DISEASE STAGING PER NKF</content>
<content></content>
<content>STAGE I & II GFR >= 60 NORMAL TO MILDLY DECREASED</content>
<content>STAGE III GFR 30-59 MODERATELY DECREASED</content>
<content>STAGE IV GFR 15-29 SEVERELY DECREASED</content>
<content>STAGE V GFR <15 VERY LITTLE GFR LEFT</content>
<content>ESRD GFR <15 ON ELECTRICAL SIGN WIRER</content>
<content></content> A/G Ratio 0.80 CALC 1.00-1.90 [facility] ([facility]) ID Date Data Source [id number] 05/26/2020 01:48:00 PM EST [facility] Name Value Range Interpretation Code Description Data Amber rce(s) Supporting Document(s) Erythrocytes [#/volume] in Blood by Automated count 3.79 x10*6/UL 4.2 0-6.30 [facility] ([facility]) Leukocytes [#/volume] in Blood by Automated count 11.9 x10*3/UL 4.1-1 0.9 [facility] ([facility]) Hematocrit [Volume Fraction] of Blood by Automated count 32.1 % 3 7.0-51.0 [facility] MCV 84.7 fL 80.0-97.0 [facility] ([facility]) Hemoglobin [Mass/volume] in Blood 10.7 g/dL 12.0-18.0 [facility] ([facility]) Erythrocyte distribution width [Ratio] by Automated count 16.2 % 11.6-13.7 [facility] ([facility]) MCH 28.4 pg 26.0-32.0 [facility]) MCHC 33.5 g/dL 31.0-38.0 [facility]) Platelets [#/volume] in Blood by Automated count 560 x10*3/UL 140-440 [facility] ([facility]) Lymph % 17.9 % 10.0-58.5 [facility]) MPV 7.6 FL 7.8-11.0 [facility]) Mid % 5.5 % 1.7-9.3 [facility] ([facility]) Neut % 76.6 % 37.0-92.0 [facility]) Lymph # 2.1 x10*3/UL 0.6-4.1 [facility] ([facility]) Neut # 9.1 x10*3/UL 2.0-7.8 [facility] ([facility]) Mid # 0.7 x10*3/UL 0.1-0.6 [facility] ([facility]) ID Date Data Source [id number] 05/14/2020 12:00:00 AM EST [facility] [place] [facility] Patient Name: MAXWELL AQUINO [facility] 1945[facility] [place] [address] Date of Exam: 05/14/2020#: Fax: [phone] EXAM: MRI LUMBAR SPINE WITHOUT CONTRASTPROCEDURE INFORMATION:Exam: MR Lumbar Spine Without Contrast.Exam date and time: 05/14/2020 10:40 AM Age: 74 years oldClinical indication: Low back painTECHNIQUE: Imaging protocol: Multiplanar magnetic resonance images of thelumbar spine without intravenous contrast.COMPARISON: MRI LUMBAR SPINE WITHOUT CONTRAST 01/24/2019 1:35 PMFINDINGS:Vertebrae: 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 The diameter appears to be about 32 mm on the previousexam. CT follow-up is recommended for more complete assessment. There isinterval compression of the superior endplate of L4 with associated edemasuggesting a recent injury. There has been a 5.6 mm decrease in staturecentrally. A small Schmorl's node has developed on sagittal image 6measuring 8 mm in diameter. There is symmetric sacralization of L5.Spinal cord: The conus medullaris is normal.L1-L2: No significant disc disease. No significant spinal canal stenosis.No neural foraminal stenosis. L2-L3: No significant disc disease. Nosignificant spinal canal stenosis. No neural foraminal stenosis. L3-L4:There is mild bulging of the L3-L4 disc anteriorly. There is no posteriordisc herniation. There is mild facet arthropathy and subarticular stenosis.L4-L5: The L4-L5 level demonstrates a mild diffuse posterior discherniation. There is moderate facet arthropathy and thickening of theligaments posteriorly. There is moderate subarticular stenosis on axialimage 8 and constriction of the central canal with limited fluid separatingthe nerve root. There is no foraminal compromise.L5-S1: The L5-S1 level shows no evidence of a significant posterior discherniation. There is moderate facet arthropathy and ligament thickening.There is no nerve root compression.Soft tissues: See "L4-L5" finding.Other findings: The lower thoracic and upper lumbar levels show no evidenceof significant disc space narrowing, disc herniations, foraminal stenosisor canal compromise.IMPRESSION:1. 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 The diameter appears to be about 32 mm on the previousexam. CT follow-up is recommended for more complete assessment.2. There is interval compression of the superior endplate of L4 withassociated edema suggesting a recent injury. There has been a 5.6 mmdecrease in stature centrally. A small Schmorl's node has developed onsagittal image 6 measuring 8 mm in diameter.3. There is mild bulging of the L3-L4 disc anteriorly. There is noposterior disc herniation. There is mild facet arthropathy and subarticularstenosis.4. The L4-L5 level demonstrates a mild diffuse posterior disc herniation.There is moderate facet arthropathy and thickening of the ligamentsposteriorly. There is moderate subarticular stenosis on axial image 8 andconstriction of the central canal with limited fluid the nerveroot. There is no foraminal compromise.5. The L5-S1 level shows no evidence of a significant posterior discherniation. There is moderate facet arthropathy and ligament thickening.There is no nerve root compression.Thank you for allowing us to participate in the care of your patient.Dictated and Authenticated by: Rusty Yates MD 05/14/2020 11:48 AM [facility] ( & Angela)RafiV/jmPola you for referring MAHESH AQUINO to our office. Electronically Signed - RAFI 05/14/20 12:29 Name Value Range Interpretation Code Description Data Amber rce(s) Supporting Document(s) ID Date Data Source [id number] 04/29/2020 02:50:00 PM EDT [facility] ([facility]) Name Value Range Interpretation Code Description Data Amber rce(s) Supporting Document(s) Carcinoembryonic Ag [Mass/volume] in Serum or Plasma 4.0 ng/mL [facility] ([facility]) THE CEA ASSAY IS PERFORMED ON THE SpazzlesAUR BY CHEMILUMINESCENCE AND SHOULD NOT BE COMPARED INTERCHANGEABLY WITH OTHER METHODS. IT SHOULD NOT BE USED ALONE A SCREENING TEST OR DIAGNOSIS FOR THE PRESENCE OR ABSENCE OF MALIGNANT DISEASE. PREDICTIONS OF DISEASE RECURRENCE SHOULD NOT BE BASED SOLELY ON VALUES OBTAINED FROM SERIAL PATIENT SERUM VALUES. ID Date Data Source [id number] 04/29/2020 02:50:00 PM EDT [facility] ([facility]) Name Value Range Interpretation Code Description Data Amber rce(s) Supporting Document(s) Glucose, Fasting 86 mg/dL 70-100 [facility] ([facility]) Blood Urea Nitrogen 14 mg/dL 7-18 [facility] ([facility]) Creatinine For GFR 1.68 mg/dL 0.55-1.30 [facility] Glomerular Filtration Rate 31.8 [facility] ([facility]) <content>Units are mL/min/1.73 m2</content>
<content></content>
<content>Chronic Kidney Disease Staging per NKF:</content>
<content></content>
<content>Stage I & II GFR >=60 Normal to Mildly Decreased</content>
<content>Stage III GFR 30- 59 Moderately Decreased</content>
<content>Stage IV GFR 15-29 Severely Decreased</content>
<content>Stage V GFR <15 Very Little GFR Left</content>
<content>ESRD GFR <15 on ELECTRICAL SIGN WIRER</content>
<content></content> Chloride Level 110 meq/L 98-107 [facility] ([facility]) Sodium Level 140 meq/L 136-145 [facility] ([facility]) Potassium Serum 4.1 meq/L 3.5-5.1 [facility] ([facility]) Anion Gap 5 meq/L 8-16 [facility] ([facility]) Carbon Dioxide Level 25 meq/L 21-32 [facility] Alt/SGPT 9 U/L 12-78 [facility] ([facility]) Calcium Level 8.3 mg/dL 8.8-10.2 [facility] ([facility]) Ast/Sgot 4 U/L 7-37 [facility] ([facility]) Alkaline Phosphatase 85 U/L 45-117 [facility] Bilirubin,Total 0.2 mg/dL 0.2-1.0 [facility] ([facility]) Total Protein 6.8 GM/DL 6.4-8.2 [facility] ([facility]) Albumin/Globulin Ratio 0.8 1.2-2.2 [facility] ([facility]) Albumin 3.0 GM/DL 3.2-5.2 [facility]) ID Date Data Source [id number] 04/29/2020 02:50:00 PM EDT [facility] ([facility]) Name Value Range Interpretation Code Description Data Amber rce(s) Supporting Document(s) Red Blood Count 3.57 10 4.00-5.40 [facility] ([facility]) White Blood Count 12.1 10 4.0-10.0 [facility] ([facility]) Hemoglobin 9.5 g/dL 12.0-15.5 [facility] Hematocrit 31.7 % 36.0-47.0 [facility] ([facility]) Mean Corpuscular Volume 88.8 fl 80.0-96.0 [facility] ([facility]) Mean Corpuscular Hemoglobin 26.6 pg 27.0-33.0 [facility] ([facility]) Mean Corpuscular HGB Conc 30.0 g/dL 32.0-36.5 [facility] ([facility]) Red Cell Distribution Width 16.7 % 11.5-14.5 [facility] ([facility]) Platelet Count, Automated 439 10 150-450 [facility] ([facility]) Neutrophils % 62.7 % 36.0-66.0 [facility] ([facility]) Lymph % 22.4 % 24.0-44.0 [facility]) [place] % 7.9 % 0.0-5.0 [facility]) Eos % 6.0 % 0.0-3.0 [facility]) Immature Granulocyte % 0.3 % 0-3.0 [facility] ([facility]) Nucleated Red Blood Cell % 0.0 % 0-0 [facility] ([facility]) Baso % 0.7 % 0.0-1.0 [facility]) Neutrophils # 7.6 10 1.5-8.5 [facility] ([facility]) Arenac # 1.0 10 0.0-0.8 [facility]) Lymph # 2.7 10 1.5-5.0 [facility] Eos # 0.7 10 0.0-0.5 [facility] Baso # 0.1 10 0.0-0.2 [facility] ID Date Data Source [id number] 03/13/2020 11:32:00 AM EDT [facility] ([facility]) Name Value Range Interpretation Code Description Data Amber rce(s) Supporting Document(s) Erythrocyte sedimentation rate by Westergren method 41 mm/hr 0-15 [facility] ([facility]) ID Date Data Source [id number] 03/13/2020 11:31:00 AM EDT [facility] Name Value Range Interpretation Code Description Data Amber rce(s) Supporting Document(s) Perinuclear AB Anca-P Laboratory test result [facility] The presence of positive fluorescence ex hibiting P-ANCA or C-ANCA patterns alone is not specific for the diagnosis of Carmen's Granulomatosis (WG) or microscopic polyangiitis. Decisions about treatment should not be based solely on ANCA IFA results. The International ANCA [employer] Consensus recommends follow up testing of positive sera with both MD- 3 and MPO-ANCA enzyme immunoassays. As m any as 5% serum samples are positive only by EIA. Ref. AM J Clin Pathol 1999;111:507-513. Anca-Atypical Laboratory test result [facility] ([facility]) The atypical pANCA pattern has been obse rved in a significant percentage of patients with ulcerative colitis, primary sclerosing cholangitis and autoimmune hepatitis. Cytoplasmic Neutrop AB Anca-C Laboratory test result [facility] ([facility]) ID Date Data Source [id number] 03/13/2020 11:31:00 AM EDT [facility] Name Value Range Interpretation Code Description Data Amber rce(s) Supporting Document(s) Fjnzf-2-Tfwpcnbw % 5.2 % 2.9-4.9 [facility] ([facility]) Albumin % 53.1 % 55.8-66.1 [facility]) Afnwf-4-Xmcmppukm % 14.0 % 7.1-11.8 [facility] ([facility]) Mhnm-5-Kvlecfrnk % 7.2 % 4.7-7.2 [facility] ([facility]) Eqxl-5-Vxrexhafo % 6.6 % 3.2-6.5 [facility] ([facility]) Gamma Globulin % 13.9 % 11.1-18.8 [facility] ([facility]) Lbmxz-2-Thhurpyaz 0.97 GM/DL 0.42-0.99 [facility] ([facility]) Snkah-1-Frsihmtmn 0.36 GM/DL 0.17-0.41 [facility] ([facility]) Albumin 3.66 GM/DL 3.29-5.55 [facility]) Atti-2-Bepesbgjx 0.50 GM/DL 0.28-0.60 [facility] ([facility]) Gamma Globulins 0.96 GM/DL 0.65-1.58 [facility] ([facility]) Doel-9-Ubtxfhjjs 0.46 GM/DL 0.19-0.55 [facility] ([facility]) Total Protein 6.9 GM/DL 6.4-8.2 [facility] ([facility]) Spep Interpretation Laboratory test result [facility] ([facility]) NO M-SPIKE(S)NOTED. Laboratory test finding (navigational concept) Laboratory test result [facility] ([facility]) REV'D BY Samaria SENIORONG ID Date Data Source [id number] 03/13/2020 11:31:00 AM EDT [facility] ([facility]) Name Value Range Interpretation Code Description Data Amber rce(s) Supporting Document(s) Phospholipid phosphorus [Mass/volume] in Serum 151 mg/dL 150-250 [facility] ([facility]) Results for this test are for research p urposes only by the assay's processing associate. The performance characteristics of this product have not been established. Results should not be used as a diagnostic procedure without confirmation of the diagnosis by another medically established diagnostic product or procedure. Performed at: [address], [place], [place] [id number] 61 Senior Market Research Analyst: Trevin Hardin MD, Phone: [phone] ID Date Data Source [id number] 02/12/2020 12:00:00 AM EDT [facility] [place] [facility] Patient Name: MAHESH AQUINO[address] [facility] Date [place] : 1945[place] [address] Date of Exam: 02/12/2020#: Fax: [phone] EXAM: MRI PELVIS WITHOUT CONTRASTCLINICAL INFORMATION: Bilateral hip pain.There are no prior pelvic MRI's for comparison.3T multiplanar MRI imaging of the pelvis was obtained using varioussequences.The femoral heads are spherical in shape and symmetric in appearance.There is bois-vn-vurrukka rather symmetric appearing hip joint spacenarrowing. No abnormal focal chondral or subchondral signal is seen in thefemoral or acetabular component of either hip. There is no hip jointeffusion. There is abpa-df-olelgilp T2 hypersignal seen in thetrochanteric tendinobursal region of each hip. The signal and morphologythroughout the imaged musculature is within normal limits. There is noevidence of a mass or mass effect. The sacroiliac joints are within normallimits. The cortical and marrow signal seen throughout the imaged osseouspelvis is within normal limits.IMPRESSION:1. Lhkt-sm-huufpdtm bilateral hip degenerative changes.2. [id number]-[id number] bilateral trochanteric tendinobursitis.Accredited by the [employer] in MR.ANGELIC Almaguer/Zoran hernandez for referring MAHESH AQUINO to our office. Electronically Signed - JASSON BETTS DO 02/12/20 17:50 Name Value Range Interpretation Code Description Data Amber rce(s) Supporting Document(s) ID Date Data Source [id number] 02/01/2020 09:00:00 PM EDT [facility] ([facility]) Name Value Range Interpretation Code Description Data Amber rce(s) Supporting Document(s) Prothrombin Time 13.2 s 11.8-14.0 [facility] ([facility]) Inr 0.99 [facility] ([facility] THERAPUTIC HUMAN INR VALUES INDICATIONS NORMAL RANGES PROPHYLAXIS/TREATMENT OF: VENOUS THROMBOSIS 2.0-3.0 PULMONARY EMBOLISM 2.0-3.0 PREVENTION OF SYSTEMIC EMBOLISM FROM: TISSUE HEART VALVES 2.0-3.0 ACUTE MYOCARDIAL INFARCTION 2.0-3.0 VALVULAR HEART DISEASE 2.0-3.0 ATRIAL FIBRILLATION 2.0-3.0 MECHANICAL VALVES(HIGH RISK) 2.5-3.5 RECURRENT MYOCARDIAL INFARCTION 2.5-3.5 Partial Thromboplastin Time 30.2 s 25.0-38.4 [facility] ([facility]) ID Date Data Source [id number] 02/01/2020 08:40:00 PM EDT [facility] ([facility]) Name Value Range Interpretation Code Description Data Amber rce(s) Supporting Document(s) Troponin I.cardiac [Mass/volume] in Serum or Plasma Laboratory test result [facility] ([facility]) <content>Troponin I Reference Interval f or Siemens [place] LOCI:</content>
<content></content>
<content>99th Percentile= 0.00-0.045 ng/ml</content>
<content></content>
<content>Risk Stratification:</content>
<content><= 0.10 ng/ml Decreased Risk for Adverse Clinical</content>
<content>Events.</content>
<content>0.10-1.50 ng/ml Increased Risk for Adverse Clinical</content>
<content>Events. Evaluation of additional</content>
<content>criterion and/or repeat testing in 2-6</content>
<content>hours is suggested to rule out myocardial</content>
<content>damage.</content>
<content>>= 1.50 ng/ml Indicative of Myocardial Injury.</content>
<content></content> Lipoprotein lipase [Enzymatic activity/volume] in Serum or Plasm a 80 U/L 73-393 [facility] ([facility]) Thyrotropin [Units/volume] in Serum or Plasma by Detec tion limit <= 0.05 mIU/L 0.753 uIU/ML 0.358-3.740 [facility] ([facility] ) Thyroxine (T4) free [Mass/volume] in Serum or Plasma 0.90 ng/dL 0.76- 1.46 [facility] ([facility]) ID Date Data Source [id number] 02/01/2020 08:40:00 PM EDT [facility] ([facility]) Name Value Range Interpretation Code Description Data Amber rce(s) Supporting Document(s) Glucose, Fasting 103 mg/dL 70-100 [facility] ([facility]) Blood Urea Nitrogen 10 mg/dL 7-18 [facility] ([facility]) Creatinine For GFR 1.34 mg/dL 0.55-1.30 [facility] Glomerular Filtration Rate 41.3 [facility] ([facility]) <content>Units are mL/min/1.73 m2</content>
<content></content>
<content>Chronic Kidney Disease Staging per NKF:</content>
<content></content>
<content>Stage I & II GFR >=60 Normal to Mildly Decreased</content>
<content>Stage III GFR 30- 59 Moderately Decreased</content>
<content>Stage IV GFR 15-29 Severely Decreased</content>
<content>Stage V GFR <15 Very Little GFR Left</content>
<content>ESRD GFR <15 on ELECTRICAL SIGN WIRER</content>
<content></content> Sodium Level 138 meq/L 136-145 [facility] ([facility]) Potassium Serum 4.4 meq/L 3.5-5.1 [facility] ([facility]) Chloride Level 107 meq/L 98-107 [facility] ([facility]) Carbon Dioxide Level 27 meq/L 21-32 [facility] ([facility]) Anion Gap 4 meq/L 8-16 [facility]) Calcium Level 8.5 mg/dL 8.8-10.2 [facility] ([facility]) ID Date Data Source [id number] 02/01/2020 08:40:00 PM EDT [facility] Name Value Range Interpretation Code Description Data Amber rce(s) Supporting Document(s) Ast/Sgot 11 U/L 7-37 [facility]) Alt/SGPT 11 U/L 12-78 [facility] ([facility]) Alkaline Phosphatase 101 U/L 45-117 [facility] ([facility]) Bilirubin,Total 0.1 mg/dL 0.2-1.0 [facility] ([facility]) Bilirubin,Direct Laboratory test result 0.0-0.2 [facility] ([facility]) Total Protein 7.0 GM/DL 6.4-8.2 [facility] ([facility]) Albumin 3.0 GM/DL 3.2-5.2 [facility] ([facility]) Albumin/Globulin Ratio 0.8 1.2-2.2 [facility] ([facility]) ID Date Data Source [id number] 02/01/2020 08:40:00 PM EDT [facility] ([facility]) Name Value Range Interpretation Code Description Data Amber rce(s) Supporting Document(s) CPK Creatine Phosphokinase 60 U/L 26-192 [facility] ([facility]) CK-MB Value Mass Laboratory test result [facility]) MB/CK Relative Index 1.67 [facility] ([facility]) <content>DIAGNOSIS CRITERIA</content>
<content>MMB ng/ml Relative Index (RI)</content>
<content>NON-AMI < or = 5 N/A</content>
<content>BLANC ZONE > 5 < or = 4</content>
<content>AMI > 5 > 4</content>
<content></content> ID Date Data Source [id number] 02/01/2020 08:40:00 PM EDT [facility] ([facility]) Name Value Range Interpretation Code Description Data Amber rce(s) Supporting Document(s) White Blood Count 9.8 10 4.0-10.0 [facility] ([facility]) Red Blood Count 3.59 10 4.00-5.40 [facility] ([facility]) Hematocrit 33.1 % 36.0-47.0 [facility] Hemoglobin 10.0 g/dL 12.0-15.5 [facility] ([facility]) Mean Corpuscular Volume 92.2 fl 80.0-96.0 [facility] ([facility]) Red Cell Distribution Width 15.9 % 11.5-14.5 [facility] ([facility]) Mean Corpuscular HGB Conc 30.2 g/dL 32.0-36.5 [facility] NT ([facility]) Mean Corpuscular Hemoglobin 27.9 pg 27.0-33.0 [facility] ([facility]) Platelet Count, Automated 427 10 150-450 [facility] ([facility]) Neutrophils % 56.1 % 36.0-66.0 [facility] ([facility]) Lymph % 28.3 % 24.0-44.0 [facility]) Eos % 5.8 % 0.0-3.0 [facility]) [place] % 8.8 % 0.0-5.0 [facility]) Baso % 0.7 % 0.0-1.0 [facility]) Immature Granulocyte % 0.3 % 0-3.0 [facility] ([facility]) Nucleated Red Blood Cell % 0.0 % 0-0 [facility] ([facility]) Neutrophils # 5.5 10 1.5-8.5 [facility] ([facility]) Eos # 0.6 10 0.0-0.5 [facility] Lymph # 2.8 10 1.5-5.0 [facility] [place] # 0.9 10 0.0-0.8 [facility] ([facility]) Baso # 0.1 10 0.0-0.2 [facility] ([facility]) ID Date Data Source [id number] 01/24/2020 01:00:00 PM EDT [facility] ([facility]) Name Value Range Interpretation Code Description Data Amber rce(s) Supporting Document(s) C reactive protein [Mass/volume] in Serum or Plasma by High sensitivity method Laboratory test result [facility] ([facility]) ID Date Data Source [id number] 01/24/2020 12:59:00 PM EDT [facility] ([facility]) Name Value Range Interpretation Code Description Data Amber rce(s) Supporting Document(s) Erythrocyte sedimentation rate by Westergren method 54 mm/hr 0-15 [facility] ([facility]) ID Date Data Source [id number] 12/31/2019 01:24:00 PM EDT [facility] ([facility]) Name Value Range Interpretation Code Description Data Amber rce(s) Supporting Document(s) Laboratory test finding (navigational concept) 122 mg/dL 70-105 [facility] ([facility]) Laboratory test finding (navigational concept) 31.0 % 38.0-51.0 [facility] ([facility]) Laboratory test finding (navigational concept) 3.8 meq/L 3.5-5.1 [facility] ([facility]) Laboratory test finding (navigational concept) 4.6 mg/dL 4.5-5.3 [facility] ([facility]) Laboratory test finding (navigational concept) 138 meq/L 136-145 [facility] ([facility]) Laboratory test finding (navigational concept) 9 mg/dL 8-26 [facility] ([facility]) Laboratory test finding (navigational concept) 20.0 MM/L 23.0-27.0 [facility] ([facility]) Laboratory test finding (navigational concept) 104 meq/L 98-109 [facility] ([facility]) Laboratory test finding (navigational concept) 1.3 mg/dL 0.6-1.3 [facility] ([facility]) ID Date Data Source [id number] 12/31/2019 01:22:00 PM EDT [facility] ([facility]) Name Value Range Interpretation Code Description Data Amber rce(s) Supporting Document(s) White Blood Count 13.4 10 4.0-10.0 [facility] ([facility]) Red Blood Count 3.12 10 4.00-5.40 [facility] ([facility]) Hematocrit 28.8 % 36.0-47.0 [facility] Hemoglobin 8.9 g/dL 12.0-15.5 [facility] ([facility]) Mean Corpuscular Volume 92.3 fl 80.0-96.0 [facility] ([facility]) Mean Corpuscular HGB Conc 30.9 g/dL 32.0-36.5 [facility] NT ([facility]) Mean Corpuscular Hemoglobin 28.5 pg 27.0-33.0 [facility] ([facility]) Red Cell Distribution Width 17.3 % 11.5-14.5 [facility] ([facility]) Neutrophils % 71.0 % 36.0-66.0 [facility] ([facility]) Platelet Count, Automated 449 10 150-450 [facility] NT ([facility]) [place] % 9.4 % 0.0-5.0 [facility]) Eos % 3.4 % 0.0-3.0 [facility]) Lymph % 15.3 % 24.0-44.0 [facility] ([facility]) Baso % 0.5 % 0.0-1.0 [facility] Immature Granulocyte % 0.4 % 0-3.0 [facility] ([facility]) Nucleated Red Blood Cell % 0.0 % 0-0 [facility] ([facility]) Neutrophils # 9.5 10 1.5-8.5 [facility] ([facility]) Lymph # 2.0 10 1.5-5.0 [facility] [place] # 1.3 10 0.0-0.8 [facility] Eos # 0.5 10 0.0-0.5 [facility] ([facility]) Baso # 0.1 10 0.0-0.2 [facility] ([facility]) ID Date Data Source [id number] 12/31/2019 01:17:00 PM EDT [facility] ([facility]) Name Value Range Interpretation Code Description Data Ambre rce(s) Supporting Document(s) Laboratory test finding (navigational concept) 0.00 ng/mL 0.00-0.08 [facility] ([facility]) ID Date Data Source [id number] 12/31/2019 01:17:00 PM EDT [facility] ([facility]) Name Value Range Interpretation Code Description Data Amber rce(s) Supporting Document(s) Troponin I.cardiac [Mass/volume] in Serum or Plasma Laboratory test result [facility] ([facility]) Laboratory test finding (navigational concept) 0.00 ng/mL 0.00-0.08 [facility] ([facility]) ID Date Data Source [id number] 12/19/2019 02:28:00 PM EDT [facility] ([facility]) Name Value Range Interpretation Code Description Data Amber rce(s) Supporting Document(s) Cholesterol [Mass/volume] in Serum or Plasma 109 mg/dL 131-200 [facility] ([facility]) Cholesterol in HDL [Mass/volume] in Serum or Plasma 52 mg/dL 35-60 [facility] ([facility]) Triglyceride [Mass/volume] in Serum or Plasma 93 mg/dL 30-150 [facility] ([facility]) Cholesterol in LDL [Mass/volume] in Serum or Plasma by calcu lation 38 CALC 50-159 [facility] ([facility]) ID Date Data Source [id number] 12/19/2019 02:28:00 PM EDT [facility] ([facility]) Name Value Range Interpretation Code Description Data Amber rce(s) Supporting Document(s) Urea nitrogen [Mass/volume] in Serum or Plasma 11 mg/dL 7-18 [facility] ([facility]) Creatinine 1.5 mg/dL 0.6-1.3 [facility] NOTE: RESULT VERIFIED. Glucose [Mass/volume] in Serum or Plasma 100 mg/dL 74-99 [facility] ([facility]) 100-125 mg/dL PRE-DIABETES/FASTING >126 mg/dL DIABETES/FASTING Sodium [Moles/volume] in Serum or Plasma 138 meq/L 136-145 [facility] ([facility]) Chloride [Moles/volume] in Serum or Plasma 104 meq/L 98-107 [facility] ([facility]) Potassium [Moles/volume] in Serum or Plasma 4.5 meq/L 3.5-5.1 [facility] ([facility]) Calcium [Mass/volume] in Serum or Plasma 8.0 mg/dL 8.5-10.1 [facility] ([facility]) NOTE: RESULT VERIFIED. Alkaline phosphatase isoenzyme [Units/volume] in Serum or Pl asma 96 mg/dL 46-116 [facility] ([facility]) Carbon dioxide, total [Moles/volume] in Serum or Plasma 27 meq/L 21 -32 [facility] ([facility]) Aspartate aminotransferase [Enzymatic activity/volume] in Serum or Plasma 10 U/L 15-37 [facility] ([facility] ) Alanine aminotransferase [Enzymatic activity/volume] in Seru m or Plasma 14 U/L 12-78 [facility] ([facility]) Total Bilirubin 0.2 mg/dL 0.2-1.0 [facility] ([facility]) A/G Ratio 0.61 CALC 1.00-1.90 [facility] ([facility]) Albumin [Mass/volume] in Serum or Plasma 2.7 g/dL 3.4-5.0 [facility] ([facility]) NOTE: RESULT VERIFIED. Proteinase 3 Ab [Units/volume] in Serum 7.1 g/dL 6.4-8.2 [facility]) Glomerular filtration rate/1.73 sq M pre dicted among non-blacks [Volume Rate/Area] in Serum or Plasma by Creatinine-based formula (MDRD) 34 mL/min [facility] ([facility]) Glomerular filtration rate/1.73 sq M pre dicted among blacks [Volume Rate/Area] in Serum or Plasma by Creatinine-based formula (MDRD) 41 mL/min [facility] ([facility]) <content>CHRONIC KIDNEY DISEASE STAGING PER NKF</content>
<content></content>
<content>STAGE I & II GFR >= 60 NORMAL TO MILDLY DECREASED</content>
<content>STAGE III GFR 30-59 MODERATELY DECREASED</content>
<content>STAGE IV GFR 15-29 SEVERELY DECREASED</content>
<content>STAGE V GFR <15 VERY LITTLE GFR LEFT</content>
<content>ESRD GFR <15 ON ELECTRICAL SIGN WIRER</content>
<content></content> ID Date Data Source [id number] 12/19/2019 02:28:00 PM EDT [facility] ([facility]) Name Value Range Interpretation Code Description Data Amber rce(s) Supporting Document(s) Erythrocyte sedimentation rate by Westergren method 55 mm/hr 0-15 [facility]) ID Date Data Source [id number] 12/19/2019 02:28:00 PM EDT [facility] Name Value Range Interpretation Code Description Data Amber rce(s) Supporting Document(s) Leukocytes [#/volume] in Blood by Automated count 10.8 x10*3/UL 4.1-1 0.9 [facility] ([facility]) Erythrocytes [#/volume] in Blood by Automated count 3.41 x10*6/UL 4.2 0-6.30 [facility] ([facility]) Hemoglobin [Mass/volume] in Blood 9.7 g/dL 12.0-18.0 [facility] ([facility]) NOTE: RESULT VERIFIED. MCV 88.7 fL 80.0-97.0 [facility] ([facility]) MCH 28.6 pg 26.0-32.0 [facility] ([facility]) Hematocrit [Volume Fraction] of Blood by Automated count 30.3 % 3 7.0-51.0 [facility] ([facility]) Erythrocyte distribution width [Ratio] by Automated count 17.2 % 11.6-13.7 [facility] ([facility]) Platelets [#/volume] in Blood by Automated count 530 x10*3/UL 140-440 [facility] ([facility]) MCHC 32.2 g/dL 31.0-38.0 [facility] ([facility]) MPV 7.0 FL 7.8-11.0 [facility] ([facility]) Mid % 7.6 % 1.7-9.3 [facility] ([facility]) Lymph % 21.6 % 10.0-58.5 [facility] ([facility]) Mid # 0.8 x10*3/UL 0.1-0.6 [facility] ([facility]) Neut % 70.8 % 37.0-92.0 [facility] ([facility]) Lymph # 2.3 x10*3/UL 0.6-4.1 [facility] ([facility]) Neut # 7.7 x10*3/UL 2.0-7.8 [facility] ([facility]) ID Date Data Source [id number] 10/22/2019 02:22:00 PM EDT [facility] Name Value Range Interpretation Code Description Data Amebr rce(s) Supporting Document(s) Cyclic citrullinated peptide IgG Ab [Units/volume] in Serum or Plasma 9 units 0-19 [facility] ([facility]) <content>Negative <20</con tent>
<content>Weak positive 20 - 39</content>
<content>Moderate positive 40 - 59</content>
<content>Strong positive >59</content>
<content>Performed at: [facility]</content>
<content>[address], [place] [id number]</content>
<content>Senior Market Research Analyst: Trevin Hardin MD, Phone: [phone]</content>
<content></content> ID Date Data Source [id number] 10/22/2019 02:22:00 PM EDT [facility] ([facility]) Name Value Range Interpretation Code Description Data Amber rce(s) Supporting Document(s) Glucose [Mass/volume] in Serum or Plasma 131 mg/dL 74-99 [facility] ([facility]) 100-125 mg/dL PRE-DIABETES/FASTING >126 mg/dL DIABETES/FASTING Creatinine 1.9 mg/dL 0.6-1.3 [facility] Urea nitrogen [Mass/volume] in Serum or Plasma 17 mg/dL 7-18 [facility] ([facility]) Chloride [Moles/volume] in Serum or Plasma 103 meq/L 98-107 [facility] ([facility]) Carbon dioxide, total [Moles/volume] in Serum or Plasma 25 meq/L 21 -32 [facility] ([facility]) Sodium [Moles/volume] in Serum or Plasma 139 meq/L 136-145 [facility] ([facility]) Potassium [Moles/volume] in Serum or Plasma 3.7 meq/L 3.5-5.1 [facility] ([facility]) Glomerular filtration rate/1.73 sq M pre dicted among blacks [Volume Rate/Area] in Serum or Plasma by Creatinine-based formula (MDRD) 31 mL/min [facility] ([facility]) <content>CHRONIC KIDNEY DISEASE STAGING PER NKF</content>
<content></content>
<content>STAGE I & II GFR >= 60 NORMAL TO MILDLY DECREASED</content>
<content>STAGE III GFR 30-59 MODERATELY DECREASED</content>
<content>STAGE IV GFR 15-29 SEVERELY DECREASED</content>
<content>STAGE V GFR <15 VERY LITTLE GFR LEFT</content>
<content>ESRD GFR <15 ON ELECTRICAL SIGN WIRER</content>
<content></content> Calcium [Mass/volume] in Serum or Plasma 8.3 mg/dL 8.5-10.1 [facility] Glomerular filtration rate/1.73 sq M pre dicted among non-blacks [Volume Rate/Area] in Serum or Plasma by Creatinine-based formula (MDRD) 26 mL/min [facility] ID Date Data Source [id number] 10/22/2019 02:22:00 PM EDT [facility]) Name Value Range Interpretation Code Description Data Amber rce(s) Supporting Document(s) Erythrocyte sedimentation rate by Westergren method 55 mm/hr 0-15 [facility] ID Date Data Source [id number] 10/22/2019 02:22:00 PM EDT [facility] ([facility] Name Value Range Interpretation Code Description Data Amber rce(s) Supporting Document(s) Erythrocytes [#/volume] in Blood by Automated count 3.58 x10*6/UL 4.2 0-6.30 [facility] ([facility]) Leukocytes [#/volume] in Blood by Automated count 14.0 x10*3/UL 4.1-1 0.9 [facility]) NOTE: RESULT VERIFIED. MCH 28.5 pg 26.0-32.0 [facility]) Hematocrit [Volume Fraction] of Blood by Automated count 30.5 % 3 7.0-51.0 [facility] ([facility]) Hemoglobin [Mass/volume] in Blood 10.2 g/dL 12.0-18.0 [facility] ([facility]) MCV 85.0 fL 80.0-97.0 [facility] ([facility]) MCHC 33.5 g/dL 31.0-38.0 [facility] ([facility]) Platelets [#/volume] in Blood by Automated count 551 x10*3/UL 140-440 [facility] ([facility]) Erythrocyte distribution width [Ratio] by Automated count 15.5 % 11.6-13.7 [facility] ([facility]) Lymph % 17.5 % 10.0-58.5 [facility] Neut % 77.4 % 37.0-92.0 [facility] ([facility]) MPV 7.6 FL 7.8-11.0 [facility] Mid % 5.1 % 1.7-9.3 [facility] ([facility]) Neut # 10.9 x10*3/UL 2.0-7.8 [facility] ([facility]) Lymph # 2.4 x10*3/UL 0.6-4.1 [facility] ([facility]) Mid # 0.7 x10*3/UL 0.1-0.6 [facility] ([facility]) ID Date Data Source [id number] 09/17/2019 02:25:00 PM EDT [facility] ([facility]) Name Value Range Interpretation Code Description Data Amber rce(s) Supporting Document(s) Urea nitrogen [Mass/volume] in Serum or Plasma 16 mg/dL 7-18 [facility] ([facility]) Sodium [Moles/volume] in Serum or Plasma 138 meq/L 136-145 [facility] ([facility]) Creatinine 1.8 mg/dL 0.6-1.3 [facility] ([facility]) Glucose [Mass/volume] in Serum or Plasma 123 mg/dL 74-99 [facility] ([facility]) 100-125 mg/dL PRE-DIABETES/FASTING >126 mg/dL DIABETES/FASTING Carbon dioxide, total [Moles/volume] in Serum or Plasma 26 meq/L 21 -32 [facility] ([facility]) Potassium [Moles/volume] in Serum or Plasma 3.6 meq/L 3.5-5.1 [facility] ([facility]) Calcium [Mass/volume] in Serum or Plasma 8.3 mg/dL 8.5-10.1 [facility] ([facility]) Chloride [Moles/volume] in Serum or Plasma 103 meq/L 98-107 [facility] ([facility]) Aspartate aminotransferase [Enzymatic activity/volume] in Se rum or Plasma 8 U/L 15-37 [facility] ([facility]) Alanine aminotransferase [Enzymatic activity/volume] in Seru m or Plasma 11 U/L 12-78 [facility] ([facility]) Alkaline phosphatase isoenzyme [Units/volume] in Serum or Pl asma 96 mg/dL 46-116 [facility] ([facility]) Total Bilirubin 0.2 mg/dL 0.2-1.0 [facility] ([facility]) Albumin [Mass/volume] in Serum or Plasma 2.9 g/dL 3.4-5.0 [facility] ([facility]) Proteinase 3 Ab [Units/volume] in Serum 7.9 g/dL 6.4-8.2 [facility] ([facility]) A/G Ratio 0.58 CALC 1.00-1.90 [facility]) Glomerular filtration rate/1.73 sq M pre dicted among non-blacks [Volume Rate/Area] in Serum or Plasma by Creatinine-based formula (MDRD) 28 mL/min [facility] ([facility]) Glomerular filtration rate/1.73 sq M pre dicted among blacks [Volume Rate/Area] in Serum or Plasma by Creatinine-based formula (MDRD) 33 mL/min [facility] ([facility]) <content>CHRONIC KIDNEY DISEASE STAGING PER NKF</content>
<content></content>
<content>STAGE I & II GFR >= 60 NORMAL TO MILDLY DECREASED</content>
<content>STAGE III GFR 30-59 MODERATELY DECREASED</content>
<content>STAGE IV GFR 15-29 SEVERELY DECREASED</content>
<content>STAGE V GFR <15 VERY LITTLE GFR LEFT</content>
<content>ESRD GFR <15 ON ELECTRICAL SIGN WIRER</content>
<content></content> ID Date Data Source [id number] 09/17/2019 02:25:00 PM EDT [facility] ([facility]) Name Value Range Interpretation Code Description Data Amber rce(s) Supporting Document(s) Creatine kinase [Enzymatic activity/volume] in Serum or Plasma 40 U /L 26-192 [facility] ([facility]) ID Date Data Source [id number] 09/17/2019 02:24:00 PM EDT [facility] ([facility]) Name Value Range Interpretation Code Description Data Amber rce(s) Supporting Document(s) Myoglobin Screen, Urine Laboratory test result [facility] ID Date Data Source [id number] 09/17/2019 02:24:00 PM EDT [facility] ([facility]) Name Value Range Interpretation Code Description Data Amber rce(s) Supporting Document(s) Color, Urine Laboratory test result [facility] ([facility]) Appearance, Urine Laboratory test result [facility]) Specific Porter Urine Auto 1.014 1.002-1.035 [facility] Protein, Urine Auto Laboratory test result [facility]) PH,Urine 5.0 units 5.0-9.0 [facility]) Glucose, Urine (Ua) Auto Laboratory test result [facility] ([facility]) Ketone, Urine Auto Laboratory test result [facility] ([facility]) Bilirubin, Urine Auto Laboratory test result [facility] Urobilinogen, Urine Auto 0.2 mg/dL 0.0-2.0 MEDEN T ([facility]) Leukocyte Esterase, Urine Auto Laboratory test result [facility]ENT ([facility]) WBC, Urine Auto 7 /HPF 0-3 [facility] ([facility]) Blood, Urine Blood Laboratory test result [facility] ([facility]) Nitrite, Urine Auto Laboratory test result [facility] ([facility]) Bacteria, Urine Auto Laboratory test result [facility] ([facility]) Squamous Epithelial Cell Ur AU 2 /HPF 0-6 [facility] ([facility]) RBC, Urine Auto 4 /HPF 0-3 [facility] ([facility]) Transitional Epithelial Auto Laboratory test result [facility] ([facility]) Hyaline Cast, Urine Auto 0 /LPF 0-1 MEDEN T ([facility]) Mucus, Urine Laboratory test result MEDE NT ([facility]) ID Date Data Source [id number] 09/06/2019 02:22:00 PM EST [facility]) Name Value Range Interpretation Code Description Data Amber rce(s) Supporting Document(s) PTT Lupus Type Anticoag Screen 1.1 0-1.2 [facility] ([facility]) RESULT IS LESS THAN 1.2, NO FURTHER TEST ING INDICATED. INTERPRETATION This test is to screen those individuals that may have a circulating lupus anticoagulant. If the LA Screen test is normal, and/or the LA Confirm test is normal, the presence of a Lupus Anticoagulant (LA) is unlikely, but does not completely exclude LA-like activity. If both tests or the LA Confirm test are elevated, the specimen will be reflexed to a hexagonal phase phospholipid test through our reference laboratory for confirmation. A positive hexagonal phase phospholipid is indicative of LA. A negative hexagonal phase phospholipid test may indicate a coagulation factor deficiency or a specific inhibitor. ID Date Data Source [id number] 09/06/2019 02:22:00 PM EST MEDENT ([facility]) Name Value Range Interpretation Code Description Data Amber rce(s) Supporting Document(s) Cyclic citrullinated peptide IgG Ab [Units/volume] in Serum or Plasma 9 units 0-19 [facility] ([facility]) <content>Negative <20</con tent>
<content>Weak positive 20 - 39</content>
<content>Moderate positive 40 - 59</content>
<content>Strong positive >59</content>
<content>Performed at: [facility]</content>
<content>[address] [place] [id number]</content>
<content>Senior Market Research Analyst: Trevin Hardin MD, Phone: [phone]</content>
<content></content> ID Date Data Source [id number] 09/06/2019 02:18:00 PM EST [facility] ([facility]) Name Value Range Interpretation Code Description Data Amber rce(s) Supporting Document(s) Glucose [Mass/volume] in Serum or Plasma 130 mg/dL 74-99 [facility] ([facility]) 100-125 mg/dL PRE-DIABETES/FASTING >126 mg/dL DIABETES/FASTING Urea nitrogen [Mass/volume] in Serum or Plasma 18 mg/dL 7-18 [facility] ([facility]) Potassium [Moles/volume] in Serum or Plasma 3.8 meq/L 3.5-5.1 [facility] ([facility]) Creatinine 2.0 mg/dL 0.6-1.3 [facility] ([facility]) Sodium [Moles/volume] in Serum or Plasma 138 meq/L 136-145 [facility] ([facility]) Carbon dioxide, total [Moles/volume] in Serum or Plasma 23 meq/L 21 -32 [facility] ([facility]) Chloride [Moles/volume] in Serum or Plasma 103 meq/L 98-107 [facility] ([facility]) Calcium [Mass/volume] in Serum or Plasma 8.4 mg/dL 8.5-10.1 [facility] ([facility]) Glomerular filtration rate/1.73 sq M pre dicted among non-blacks [Volume Rate/Area] in Serum or Plasma by Creatinine-based formula (MDRD) 24 mL/min [facility] ([facility]) Glomerular filtration rate/1.73 sq M pre dicted among blacks [Volume Rate/Area] in Serum or Plasma by Creatinine-based formula (MDRD) 30 mL/min [facility] ([facility]) <content>CHRONIC KIDNEY DISEASE STAGING PER NKF</content>
<content></content>
<content>STAGE I & II GFR >= 60 NORMAL TO MILDLY DECREASED</content>
<content>STAGE III GFR 30-59 MODERATELY DECREASED</content>
<content>STAGE IV GFR 15-29 SEVERELY DECREASED</content>
<content>STAGE V GFR <15 VERY LITTLE GFR LEFT</content>
<content>ESRD GFR <15 ON ELECTRICAL SIGN WIRER</content>
<content></content> ID Date Data Source [id number] 09/06/2019 02:18:00 PM EST [facility]ENT ([facility]) Name Value Range Interpretation Code Description Data Amber rce(s) Supporting Document(s) Leukocytes [#/volume] in Blood by Automated count 10.4 x10*3/UL 4.1-1 0.9 [facility] ([facility]) Erythrocytes [#/volume] in Blood by Automated count 3.79 x10*6/UL 4.2 0-6.30 [facility] ([facility]) Hemoglobin [Mass/volume] in Blood 10.8 g/dL 12.0-18.0 [facility] ([facility]) Hematocrit [Volume Fraction] of Blood by Automated count 33.2 % 3 7.0-51.0 [facility] ([facility]) MCV 87.6 fL 80.0-97.0 [facility] MCHC 32.6 g/dL 31.0-38.0 [facility] ([facility] MCH 28.5 pg 26.0-32.0 [facility] ([facility]) Platelets [#/volume] in Blood by Automated count 455 x10*3/UL 140-440 [facility] ([facility]) Erythrocyte distribution width [Ratio] by Automated count 15.4 % 11.6-13.7 [facility] ([facility]) MPV 7.5 FL 7.8-11.0 [facility] ([facility]) Lymph % 17.2 % 10.0-58.5 [facility] ([facility]) Mid % 6.2 % 1.7-9.3 [facility] ([facility]) Mid # 0.8 x10*3/UL 0.1-0.6 [facility] ([facility]) Neut # 7.9 x10*3/UL 2.0-7.8 [facility] ([facility]) Lymph # 1.7 x10*3/UL 0.6-4.1 [facility] ([facility]) Neut % 76.6 % 37.0-92.0 [facility] ([facility]) ID Date Data Source [id number] 09/02/2019 12:48:00 PM EST [facility] ([facility]) Name Value Range Interpretation Code Description Data Amber rce(s) Supporting Document(s) Antinuclear Antibodies Laboratory test result [facility] ([facility]) Performed at: [facility] - [facility] [address] [id number] Senior Market Research Analyst: Jillian Miner MD, Phone: [phone] ID Date Data Source [id number] 09/02/2019 12:48:00 PM EST [facility] ([facility]) Name Value Range Interpretation Code Description Data Amber rce(s) Supporting Document(s) Rheumatoid Factor Quant 48.1 IU/ml MED T ([facility]) <content>note:<nlbl:demographic_changed></content>
<content>note:<nlbl:demog raphic_changed></content>
<content>note:<nlbl:demographic_changed></content>
<content></content> Erythrocyte sedimentation rate by Westergren method 65 mm/hr 0-30 [facility] ([facility]) Bacteria identified in Blood by Culture Laboratory test result [facility] ([facility]) No growth after 72 hours . All specimens observed for 5 days. Results final at that time. No growth after 48 hours . All specimens observed for 5 days. Results final at that time. No growth after 24 hours . All specimens observed for 5 days. Results final at that time. NO GROWTH AFTER 5 DAYS C reactive protein [Mass/volume] in Serum or Plasma by High sensitivity method 4.23 mg/dL 0.00-0.30 [facility] ([facility] ) <content>note:<nlbl:demographic_changed></content>
<content>note:<nlbl:demog raphic_changed></content>
<content>note:<nlbl:demographic_changed></content>
<content></content> ID Date Data Source [id number] 09/02/2019 12:48:00 PM EST [facility] ([facility]) Name Value Range Interpretation Code Description Data Amber rce(s) Supporting Document(s) CPK Creatine Phosphokinase 87 U/L 26-192 [facility] ([facility]) MB/CK Relative Index 1.95 [facility] ([facility]) <content>DIAGNOSIS CRITERIA</content>
<content>MMB ng/ml Relative Index (RI)</content>
<content>NON-AMI < or = 5 N/A</content>
<content>BLANC ZONE > 5 < or = 4</content>
<content>AMI > 5 > 4</content>
<content></content> CK-MB Value Mass 1.7 ng/mL [facility] ([facility]) Troponin I Laboratory test result [facility] ([facility]) <content>Troponin I Reference Interval f or Siemens [place] LOCI:</content>
<content></content>
<content>99th Percentile= 0.00-0.045 ng/ml</content>
<content></content>
<content>Risk Stratification:</content>
<content><= 0.10 ng/ml Decreased Risk for Adverse Clinical</content>
<content>Events.</content>
<content>0.10-1.50 ng/ml Increased Risk for Adverse Clinical</content>
<content>Events. Evaluation of additional</content>
<content>criterion and/or repeat testing in 2-6</content>
<content>hours is suggested to rule out myocardial</content>
<content>damage.</content>
<content>>= 1.50 ng/ml Indicative of Myocardial Injury.</content>
<content></content> ID Date Data Source [id number] 09/02/2019 12:48:00 PM EST [facility] ([facility]) Name Value Range Interpretation Code Description Data Amber rce(s) Supporting Document(s) Lactate [Mass/volume] in Serum or Plasma 1.6 mmol/L 0.4-2.0 [facility] ([facility]) <content>note:<nlbl:demographic_changed> </content>
<content>Y/N query for Sepsis Lactate Rule: Y</content>
<content></content> ID Date Data Source [id number] 09/02/2019 12:48:00 PM EST [facility] ([facility]) Name Value Range Interpretation Code Description Data Amber rce(s) Supporting Document(s) Glucose, Fasting 88 mg/dL 70-100 [facility] ([facility]) Blood Urea Nitrogen 15 mg/dL 7-18 [facility] ([facility]) Sodium Level 138 meq/L 136-145 [facility] ([facility]) Creatinine For GFR 1.66 mg/dL 0.55-1.30 [facility] ([facility]) Glomerular Filtration Rate 32.2 [facility] ([facility]) <content>Units are mL/min/1.73 m2</content>
<content></content>
<content>Chronic Kidney Disease Staging per NKF:</content>
<content></content>
<content>Stage I & II GFR >=60 Normal to Mildly Decreased</content>
<content>Stage III GFR 30- 59 Moderately Decreased</content>
<content>Stage IV GFR 15-29 Severely Decreased</content>
<content>Stage V GFR <15 Very Little GFR Left</content>
<content>ESRD GFR <15 on ELECTRICAL SIGN WIRER</content>
<content></content> Carbon Dioxide Level 23 meq/L 21-32 [facility] Anion Gap 7 meq/L 8-16 [facility]) Potassium Serum 4.3 meq/L 3.5-5.1 [facility] ([facility]) Chloride Level 108 meq/L 98-107 [facility] ([facility]) Calcium Level 8.0 mg/dL 8.8-10.2 [facility] ([facility]) ID Date Data Source [id number] 09/02/2019 12:48:00 PM EST [facility] ([facility]) Name Value Range Interpretation Code Description Data Amber rce(s) Supporting Document(s) White Blood Count 12.6 10 4.0-10.0 [facility] Hematocrit 36.0 % 36.0-47.0 [facility] Red Blood Count 3.85 10 4.00-5.40 [facility] ([facility]) Hemoglobin 10.8 g/dL 12.0-15.5 [facility]) Red Cell Distribution Width 16.1 % 11.5-14.5 ME [facility] ([facility]) Mean Corpuscular HGB Conc 30.0 g/dL 32.0-36.5 [facility]E NT ([facility]) Mean Corpuscular Hemoglobin 28.1 pg 27.0-33.0 [facility] ([facility]) Mean Corpuscular Volume 93.5 fl 80.0-96.0 [facility] ([facility]) Lymph % 16.7 % 24.0-44.0 [facility]) Platelet Count, Automated 481 10 150-450 [facility]E NT ([facility]) Neutrophils % 64.1 % 36.0-66.0 [facility] ([facility]) Baso % 0.7 % 0.0-1.0 [facility]) Eos % 12.8 % 0.0-3.0 [facility] ([facility]) [place] % 5.2 % 0.0-5.0 [facility]) Lymph # 2.1 10 1.5-5.0 [facility]) Neutrophils # 8.1 10 1.5-8.5 [facility] ([facility]) Immature Granulocyte % 0.5 % 0-3.0 [facility] ([facility]) Nucleated Red Blood Cell % 0.0 % 0-0 [facility] ([facility]) Eos # 1.6 10 0.0-0.5 [facility] ([facility]) Baso # 0.1 10 0.0-0.2 [facility] ([facility]) [place] # 0.7 10 0.0-0.8 [facility]) ID Date Data Source [id number] 08/07/2019 10:04:30 PM EST [facility] Name Value Range Interpretation Code Description Data Amber rce(s) Supporting Document(s) &PDF [facility] ASFQUa4cChIXSrPn75/EQAqxEZSqx7DtTZooSLr6GAuvOLMeU6LupFezRMQCXQEBZ06wIQ5FUFJGOSMz yKE [file] pMUH4zpPVzJNyCtaT0qds/6isYC/I9AP0XqOMU9+STEWARD/STEWARDESS THIRD CLASS [file] +BQuQpZPBHFPHsRUUbDX0Un2o9h/GzIPgArF8TZnw7zq2ZbUOB4ZFvEUZ7HyldjAcA5iZ+ZkEKGl+Disability Aide [file] AgICAgICAgICAgICAgICAgICAgICAgICAgICAgICAgICAgICAgICAgICAgICAgICAgICAgICAgICAgIC AgICAgICAgICANCiAgICAgICAgICAgICAgICAgICAg ICAgICAgICAgICAgICAgICAgICAgICAgICAgICAgICAgICAgICAgICAgICAgICAgICAgICAgICAgICAg ICAgICAgICAgICAgICAgICAgICANCiAgICAgICAgICAgICAgICAgICAgICAgICAgICAgICAgICAgICAg ICAgICAgICAgICAgICAgICAgICAgICAgICAgICAgIC AgICAgICAgICAgICAgICAgICAgICAgICAgICAgICANCiAgICAgICAgICAgICAgICAgICAgICAgICAgIC AgICAgICAgICAgICAgICAgICAgICAgICAgICAgICAgICAgICAgICAgICAgICAgICAgICAgICAgICAgIC AgICAgICAgICAgICANCiAgICAgICAgICAgICAgICAg ICAgICAgICAgICAgICAgICAgICAgICAgICAgICAgICAgICAgICAgICAgICAgICAgICAgICAgICAgICAg ICAgICAgICAgICAgICAgICAgICAgICANCiAgICAgICAgICAgICAgICAgICAgICAgICAgICAgICAgICAg ICAgICAgICAgICAgICAgICAgICAgICAgICAgICAgIC AgICAgICAgICAgICAgICAgICAgICAgICAgICAgICAgICANCiAgICAgICAgICAgICAgICAgICAgICAgIC AgICAgICAgICAgICAgICAgICAgICAgICAgICAgICAgICAgICAgICAgICAgICAgICAgICAgICAgICAgIC AgICAgICAgICAgICAgICANCiAgICAgICAgICAgICAg ICAgICAgICAgICAgICAgICAgICAgICAgICAgICAgICAgICAgICAgICAgICAgICAgICAgICAgICAgICAg ICAgICAgICAgICAgICAgICAgICAgICAgICANCiAgICAgICAgICAgICAgICAgICAgICAgICAgICAgICAg ICAgICAgICAgICAgICAgICAgICAgICAgICAgICAgIC AgICAgICAgICAgICAgICAgICAgICAgICAgICAgICAgICAgICANCiAgICAgICAgICAgICAgICAgICAgIC AgICAgICAgICAgICAgICAgICAgICAgICAgICAgICAgICAgICAgICAgICAgICAgICAgICAgICAgICAgIC AgICAgICAgICAgICAgICAgICANCjw/xMYfP0eedRKa sxL1T7ppZm8EUf5YVJ5lg9LxNLZhDLpctoUiHwaRHdUgYASzTrlATbl1AGjaMG2NmPAuG8RuI6WjOMai IO8RMMOpNCQkkZHxSXRuWVInKtR9DVGoYDzkFU1FiYEwYNijLZEjSVSqOxJxWXBcVU8AVRUiC318voGn Wi3PGq5UYwBzKW8msb6ZNiLlHBVwCuvSNwc4HBqmFT 0MhILbX2HuoHEgc9nINpIkK9UKMXUnHPHlDh0BCJTuNmJcZNNgVGtsTN9hFMNoTNSVwTnvedZ6NZ2WAP 9zzkHhZR3VPkIdQl9ePm3KCeKpO9PhN0CeGWYvQTTXIHsbDP4EKBSvXMG7YXQhHiLrWRQOXlNyB14wMG 2HX5Xqb98vSqZ5LIBjGkEyHJfqZQ83dCiyatEkvWWy eKqfRD0QPt1+CRthsgXwBqkNUidbYDRXNsDyRrTKCiWyWEPkKIYjQBUoFlO6WjAaBl2VPNTiZIFxVVIw RbVsDAYnZDWgLGqbRZEwMMl9JgJdTPXeSJLfJP1YFlZpEUFeCKcuAURlTXDoLQZind0WGILuOVGlOBY5 UuJfKULtUPHvFZutPTAsDSOeFUD6BWMdHQGlUE3EVm QjHHYoUUJ6XmCcVHPlKJTyzy6XHGTjJKJqZQU1BOFdXDIrOLAbMLnqYUHzFYS6QUa1PYBoKWCeBG9FQv EuIIQnNAC0IpUgKAUzJBEjia1OBMFqAAMoUuxgDyZuZVBoSIAmSDcaKYOiRXO2ZRXmCZDaBGLiKL5BOq ObFHEbLVt4GPDfLTGiTHQtww4OGUScCYRvQZE0ETXk VQXjTUPlYGfgSYFmVFS7TrJdDPGdWHPyJN6AEdRxOAElTYXeGYwiJEMcQPLebm9ZDZHeJQEjYmKvVfIc XAYxXODpAYgiTUCcPISvPeZ7WSQsAUGvLG5IEmUcQBCvCZR9MVhkSGCqGFRwvj4LACNpIWVeDUZySPGu TDJrVISaWEhkHLDbOAR2ZBz3JXYdATWfXG1UUjUwHY BeGASzMbHsMMDiCYCkzk4OGNNpDVTqFCBaWANyLGKqSKSiKGfgKWLxLJVeUUL6UPDaPIFyWP3IVbLnPX VoMwXmElmxLHZeMJKeqe7DPDFkNEOpHQV3FNObRCEvMGKuUUhyYGZyYXC9KRWeFAUpJWOqDC5MNrUlPP XjIFClKYfjLNHbMQNytp9QXDNiZZL6EpW2MBCvIXRp KRIpDZtsMLXcWTm9EIU8GXViKGEnHI9XPwIvITBcPVWtDNyaHSCeCZMwcz3CFCTjDIM5MgK2TFOgNOVi VMQkAXztLTEaWBn8CJXnLPTvNWBjVL8UEtSlUVYoGSisZDhzJGCbNLBgbp6BtEVzaSfuzb1MTWeRGw6B fMvyFKU3WWbbXg5gsMYhFdSgTUNXYg2QwcHdWUTdIK KEVFusWNOeZENdOcsrRpS7EAe8EdGvBSa7P8AnKTPnEBUwYBTqRFTlZoM5SHUtE2X4OinrFHfbOSB4KQ liFZJ6YlIuKXEhGkG5BwM+TQ7sVHl+Dd9Rt1KvzoL1kzLgBHz9OGC6EU8PAWKUW0OJIi== Procedure Social History Code Duration Value Status Description Data Source(s ) Smoking 07/13/2020 12:00:00 AM EST Current Smoker completed Curre nt Smoker eCW1 ([facility]) Smoking 06/24/2020 12:00:00 AM EST Current Smoker completed Curre nt Smoker eCW1 ([facility]) Alcohol intake 06/12/2020 12:00:00 AM EST Never completed [facility] Smoking 06/12/2020 12:00:00 AM EST Current every day smoker co mpleted Current every day smoker [facility] Smoking 06/04/2020 12:00:00 AM EST Current Smoker completed Curre nt Smoker eCW1 ([facility]) Smoking 06/04/2020 12:00:00 AM EST Current Smoker completed Curre nt Smoker eCW1 ([facility]) Smoking 06/04/2020 12:00:00 AM EST Current Smoker completed Curre nt Smoker eCW1 ([facility]) Smoking 05/19/2020 12:00:00 AM EST Current Smoker completed Curre nt Smoker eCW1 ([facility]) Smoking 05/19/2020 12:00:00 AM EST Current Smoker completed Curre nt Smoker eCW1 ([facility]) Smoking 05/05/2020 12:00:00 AM EST Current Smoker completed Curre nt Smoker eCW1 ([facility]) Smoking 05/05/2020 12:00:00 AM EST Current Smoker completed Curre nt Smoker eCW1 ([facility]) Smoking 01/21/2020 12:00:00 AM EDT Current Smoker completed Curre nt Smoker eCW1 ([facility]) Vital Signs ID Date Data Source UNK Name Value Range Interpretation Code Description Data Source(s) Diastolic blood pressure 68 mm[Hg] 68 mm[Hg] eCW1 ([facility]) Systolic blood pressure 128 mm[Hg] 128 mm[Hg] e CW1 ([facility]) Body temperature 98.2 [degF] 98.2 [degF] eCW1 ( [facility]) Respiratory rate 18 /min 18 /min eCW1 ([facility]) Heart rate 76 /min 76 /min eCW1 ([facility]) Body mass index (BMI) [Ratio] 28.11 kg/m2 28.11 kg/m2 W1 ([facility]) Body height 64 [in_i] 64 [in_i] eCW1 ([facility]) Body weight 74.3 kg 74.3 kg eCW1 ([facility]) Body weight 163.8 [lb_av] 163.8 [lb_av] eCW1 ([facility]) Diastolic blood pressure 68 mm[Hg] 68 mm[Hg] eCW1 ([facility]) Systolic blood pressure 128 mm[Hg] 128 mm[Hg] e CW1 ([facility]) Body temperature 97.2 [degF] 97.2 [degF] eCW1 ( [facility]) Respiratory rate 20 /min 20 /min eCW1 ([facility]) Heart rate 105 /min 105 /min eCW1 ([facility]) Body mass index (BMI) [Ratio] 27.94 kg/m2 27.94 kg/m2 eCW1 ([facility]) Body height 64 [in_i] 64 [in_i] eCW1 ([facility]) Body weight 73.8 kg 73.8 kg eCW1 ([facility]) Body weight 162.8 [lb_av] 162.8 [lb_av] eCW1 ([facility]) Body temperature 96.4 [degF] 96.4 [degF] MED[facility] ([facility]) Diastolic blood pressure 74 mm[Hg] 74 mm[Hg] [facility] Systolic blood pressure 124 mm[Hg] 124 mm[Hg] [facility] Oxygen saturation in Arterial blood by Pulse oximetry 98 % 98 % [facility] Body mass index (BMI) [Ratio] 28.34 kg/m2 28.34 kg/m2 [facility] Body weight 72.576 kg 72.576 kg [facility] Heart rate 92 /min 92 /min [facility] Diastolic blood pressure 66 mm[Hg] 66 mm[Hg] eCW1 ([facility]) Systolic blood pressure 124 mm[Hg] 124 mm[Hg] e CW1 ([facility]) Body temperature 97.8 [degF] 97.8 [degF] eCW1 ( [facility]) Respiratory rate 18 /min 18 /min eCW1 ([facility]) Heart rate 64 /min 64 /min eCW1 ([facility]) Body mass index (BMI) [Ratio] 27.63 kg/m2 27.63 kg/m2 eCW1 ([facility]) Body height 64 [in_i] 64 [in_i] eCW1 ([facility]) Body weight 73.0 kg 73.0 kg eCW1 ([facility]) Body weight 161.0 [lb_av] 161.0 [lb_av] eCW1 ([facility]) Body mass index (BMI) [Ratio] 28.0 kg/m2 28.0 k g/m2 [facility] ([facility]) Oxygen saturation in Arterial blood by Pulse oximetry 96 % 96 % [facility] ([facility]) RM Air Body weight 158.00 [lb_av] 158.00 [lb_av] MEDEN T ([facility]) Body height 63 [in_i] 63 [in_i] [facility] ([facility]) 5'3" Diastolic blood pressure 82 mm[Hg] 82 mm[Hg] [facility] ([facility]) Systolic blood pressure 138 mm[Hg] 138 mm[Hg] M EDENT ([facility]) Body temperature 96.0 [degF] 96.0 [degF] [facility] ([facility] Body mass index (BMI) [Ratio] 27.12 kg/m2 27.12 kg/m2 eCW1 ([facility]) Body height 64 [in_i] 64 [in_i] eCW1 ([facility]) Body weight 158 [lb_av] 158 [lb_av] eCW1 ([facility]) Diastolic blood pressure 68 mm[Hg] 68 mm[Hg] eCW1 ([facility]) Systolic blood pressure 130 mm[Hg] 130 mm[Hg] e CW1 ([facility]) Body mass index (BMI) [Ratio] 27.12 kg/m2 27.12 kg/m2 eCW1 ([facility]) Body height 64 [in_i] 64 [in_i] eCW1 ([facility]) Body weight 158 [lb_av] 158 [lb_av] eCW1 ([facility]) Body temperature 97.8 [degF] 97.8 [degF] eCW1 ( [facility]) Respiratory rate 18 /min 18 /min eCW1 ([facility]) Heart rate 53 /min 53 /min eCW1 ([facility]) Body mass index (BMI) [Ratio] 26.71 kg/m2 26.71 kg/m2 eCW1 ([facility]) Body height 64 [in_i] 64 [in_i] eCW1 ([facility]) Body weight 70.6 kg 70.6 kg eCW1 ([facility]) Body weight 155.6 [lb_av] 155.6 [lb_av] eCW1 ([facility]) Body mass index (BMI) [Ratio] 28.5 kg/m2 28.5 k g/m2 MEDRICK ([facility]) Body weight 161.00 [lb_av] 161.00 [lb_av] ANITHA T ([facility]) Body height 63 [in_i] 63 [in_i] MEDRICK ([facility]) 5'3" Heart rate 63 /min 63 /min [facility]ICK ([facility]) Diastolic blood pressure 56 mm[Hg] 56 mm[Hg] MED[facility]ICK ([facility]) Systolic blood pressure 102 mm[Hg] 102 mm[Hg] M EDENT ([facility]) Body mass index (BMI) [Ratio] 28.3 kg/m2 28.3 k g/m2 [facility] ([facility]) Oxygen saturation in Arterial blood by Pulse oximetry 97 % 97 % MEDRICK ([facility]) Air Body weight 160.00 [lb_av] 160.00 [lb_av] ANITHA T ([facility]) Body height 63 [in_i] 63 [in_i] [facility] ([facility]) 5'3" Heart rate 73 /min 73 /min [facility] ([facility]) Diastolic blood pressure 60 mm[Hg] 60 mm[Hg] [facility] ([facility]) Systolic blood pressure 118 mm[Hg] 118 mm[Hg] [facility] ([facility]) Body weight 72.746 kg 72.746 kg [facility] ([facility]) Body mass index (BMI) [Ratio] 27.5 kg/m2 27.5 k g/m2 [facility] ([facility]) Body weight 160.38 [lb_av] 160.38 [lb_av] [facility] Body height 64 [in_i] 64 [in_i] [facility] ([facility]) 5'4" Body temperature 98.1 [degF] 98.1 [degF] [facility] ([facility]) Diastolic blood pressure 87 mm[Hg] 87 mm[Hg] [facility] ([facility]) Systolic blood pressure 147 mm[Hg] 147 mm[Hg] [facility] ([facility]) Body mass index (BMI) [Ratio] 28.2 kg/m2 28.2 k g/m2 [facility] ([facility]) Oxygen saturation in Arterial blood by Pulse oximetry 98 % 98 % [facility] ([facility]) Air Body weight 159.00 [lb_av] 159.00 [lb_av] [facility] Body height 63 [in_i] 63 [in_i] [facility] ([facility]) 5'3" Heart rate 86 /min 86 /min [facility] ([facility]) Diastolic blood pressure 84 mm[Hg] 84 mm[Hg] [facility] ([facility]) Systolic blood pressure 130 mm[Hg] 130 mm[Hg] [facility] ([facility]) Body weight 73.540 kg 73.540 kg [facility] ([facility]) Body mass index (BMI) [Ratio] 27.8 kg/m2 27.8 k g/m2 [facility] ([facility]) Body weight 162.12 [lb_av] 162.12 [lb_av] [facility] ([facility]) Body height 64 [in_i] 64 [in_i] [facility] ([facility]) 5'4" Diastolic blood pressure 62 mm[Hg] 62 mm[Hg] [facility] ([facility]) Systolic blood pressure 108 mm[Hg] 108 mm[Hg] [facility] ([facility]) Body mass index (BMI) [Ratio] 28.3 kg/m2 28.3 k g/m2 [facility] ([facility]) Oxygen saturation in Arterial blood by Pulse oximetry 98 % 98 % [facility] ([facility]) RM Air Body weight 160.00 [lb_av] 160.00 [lb_av] [facility] ([facility]) Body height 63 [in_i] 63 [in_i] [facility] ([facility]) 5'3" Heart rate 84 /min 84 /min [facility] ([facility]) Diastolic blood pressure 90 mm[Hg] 90 mm[Hg] [facility] ([facility]) Systolic blood pressure 140 mm[Hg] 140 mm[Hg] [facility] ([facility]) Body mass index (BMI) [Ratio] 29.6 kg/m2 29.6 k g/m2 [facility] ([facility]) Oxygen saturation in Arterial blood by Pulse oximetry 97 % 97 % [facility] ([facility]) RM Air Body weight 167.00 [lb_av] 167.00 [lb_av] [facility] ([facility]) Body height 63 [in_i] 63 [in_i] [facility] ([facility]) 5'3" Heart rate 66 /min 66 /min [facility] ([facility]) Diastolic blood pressure 84 mm[Hg] 84 mm[Hg] [facility] ([facility]) Systolic blood pressure 140 mm[Hg] 140 mm[Hg] [facility] ([facility]) Body weight 72.746 kg 72.746 kg [facility] ([facility]) Body mass index (BMI) [Ratio] 27.5 kg/m2 27.5 k g/m2 [facility] ([facility]) Body weight 160.38 [lb_av] 160.38 [lb_av] [facility] ([facility]) Body height 64 [in_i] 64 [in_i] [facility] ([facility], ) 5'4" Diastolic blood pressure 83 mm[Hg] 83 mm[Hg] [facility] ([facility]) Systolic blood pressure 152 mm[Hg] 152 mm[Hg] [facility] ([facility]) Body mass index (BMI) [Ratio] 28.7 kg/m2 28.7 k g/m2 [facility] ([facility]) Oxygen saturation in Arterial blood by Pulse oximetry 98 % 98 % [facility] ([facility]) Body weight 162.00 [lb_av] 162.00 [lb_av] [facility] ([facility]) Body height 63 [in_i] 63 [in_i] [facility] ([facility]) 5'3" Heart rate 96 /min 96 /min [facility] ([facility]) Diastolic blood pressure 60 mm[Hg] 60 mm[Hg] [facility] ([facility]) Systolic blood pressure 126 mm[Hg] 126 mm[Hg] [facility] ([facility]) Body mass index (BMI) [Ratio] 25.6 kg/m2 25.6 k g/m2 [facility] ([facility] ) Body weight 149.00 [lb_av] 149.00 [lb_av] [facility] ([facility] ) Body height 64 [in_i] 64 [in_i] [facility] ([facility] ) 5'4" Patient Treatment Plan of Care Planned Activity Planned Date Details Description Data Source (s) Losartan Potassium 25 MG Oral Tablet 06/05/2020 12:00:00 AM EST [facility] Famotidine 40 MG Oral Tablet 05/23/2020 12:00:00 AM EST [facility] Triamcinolone Acetonide 0.001 MG/MG Topical Ointment 020 12:00:00 AM EST [facility] ([facility]) Triamcinolone Acetonide 0.001 MG/MG Topical Ointment 12:00:00 AM EST [email or web address] ([facility]) Triamcinolone Acetonide 0.001 MG/MG Topical Ointment 12:00:00 AM EST [facility]1 ([facility]) Triamcinolone Acetonide 0.001 MG/MG Topical Ointment 12:00:00 AM EST [facility]1 ([facility]) Furosemide 20 MG Oral Tablet 07/24/2019 12:00:00 AM EST [facility] Metoprolol Tartrate 25 MG Oral Tablet 07/10/2019 12:00:00 AM EST [facility] quetiapine 25 MG Oral Tablet 06/13/2019 12:00:00 AM EST [facility] Losartan Potassium 50 MG Oral Tablet [facility]
--- NOTE | 2020-07-20 12:58 | REP ---
INDICATION: fall on thinners. COMPARISON: Comparison is made with prior CT studies from January 19, 2019 and August 23, 2016.. TECHNIQUE: Helical scanning is acquired. 5 mm axial images were reformatted. Coronal MPR images were generated. FINDINGS: Digital preliminary junior art director radiographs are unremarkable. Patient is edentulous. Bone window settings demonstrate an intact bony calvarium. No skull fracture is seen. No scalp hematoma is appreciated. Visualized paranasal sinuses are clear. Vascular calcification is noted in the distal internal carotid arteries bilaterally. No intraorbital abnormality is seen. 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 There is an old lacunar infarct in the left thalamus which is unchanged from the January 19, 2019 study. A 2nd smaller low-density area representing a lacunar infarct is seen in the anterior limb of the internal capsule on the left. This is unchanged from both prior studies. There are 2 focal low-density areas in the periventricular white matter of the right frontal parietal region which were not apparent on previous studies but appear to be lacunar infarcts. These do not appear to be acute. There is a small focus of decreased density in the right thalamus which was not apparent previously. This is age indeterminate. Mild small vessel changes are again noted. There is no evidence of intracranial hemorrhage. No extra-axial fluid collection, mass or midline shift is observed. 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 Two of these in the right frontal parietal periventricular white matter are new from the December 2018 study however they have a chronic appearance. There is another new sub cm focus of decreased density in the right thalamus which is age indeterminate. No evidence of intracranial hemorrhage or skull fracture.. <Electronically signed by Christiano Chris > 07/20/20 [id number]
[2020-07-20] MEDS ORDERED: MORPHINE 4 MG/ML 1ML VIAL/SYRINGE (J2270) IV ONE ×2 (13:00→15:00)
--- NOTE | 2020-07-20 13:02 | REP ---
INDICATION: fall on thinners. COMPARISON: None. TECHNIQUE: Helical scanning is acquired and overlapping 2 mm high resolution axial images were generated and reviewed at bone and soft tissue window settings. Coronal and sagittal multiplanar re-formations images are generated. FINDINGS: There is no evidence of cervical spine element fracture. No skull base fracture is seen. Cervical vertebral body heights are preserved. Alignment is normal. Facet joints are normally aligned bilaterally at each cervical level on multiplanar re-formations images. There is no evidence of intraspinal or paraspinal hematoma. No extra vertebral abnormality is seen. There are mild degenerative disc changes in the lower cervical spine. Left-sided uncovertebral spurring is noted at C6-7. Biapical pleuroparenchymal scarring is seen in the upper lung regions. Vascular calcification is apparent. IMPRESSION: Degenerative spondylosis changes. No fracture or other traumatic abnormality seen.. <Electronically signed by Christiano Chris > 07/20/20 [id number]
--- OUTSIDE RECORDS SUMMARY | 2020-07-20 13:08 | CCD ---
Author Author [facility] Organization [facility] Address Unknown Phone Unavailable Care Team Providers Care Commercial Insulator Name Role Phone Koffi, Kaylene DO Unavailable [...] DO Unavailable Unavailable Kocan, J Maria Elena RADIOLOGIC TECHNOLOGIST Unavailable Unavailable Kocan, J Maria Elena RADIOLOGIC TECHNOLOGIST Unavailable Unavailable Kocan, J Maria Elena RADIOLOGIC TECHNOLOGIST Unavailable Unavailable Kocan, J Maria Elena RADIOLOGIC TECHNOLOGIST Unavailable Unavailable Kocan, J Maria Elena RADIOLOGIC TECHNOLOGIST Unavailable Unavailable Kocan, J Maria Elena RADIOLOGIC TECHNOLOGIST Unavailable Unavailable Kocan, J Maria Elena RADIOLOGIC TECHNOLOGIST Unavailable Unavailable Kocan, J Maria Elena RADIOLOGIC TECHNOLOGIST Unavailable Unavailable Kocan, J Maria Elena RADIOLOGIC TECHNOLOGIST Unavailable Unavailable Kocan, J Maria Elena RADIOLOGIC TECHNOLOGIST Unavailable Unavailable Kocan, J Maria Elena RADIOLOGIC TECHNOLOGIST Unavailable Unavailable Kocan, J Maria Elena RADIOLOGIC TECHNOLOGIST Unavailable Unavailable Kocan, J Maria Elena RADIOLOGIC TECHNOLOGIST Unavailable Unavailable Koffi, Kaylene DO Unavailable Unavailable [...] Unavailable Unavailable Koffi, Kaylene DO Unavailable Unavailable Kfofi, Kaylene DO Unavailable Unavailable Koffi, Kaylene DO [...] is protected by Article 27-F of the [place] State Public Health law. If you continue you may have access to information: Regarding HIV / AIDS; Provided by facilities licensed or operated by the [facility] Office of Mental Health; or Provided by the [facility] Office for People With Developmental Disabilities. If such information is present, then the following [facility] mandated warning applies: This information has [...] law may result in a fine or intermediate sentence or both. A general authorization for the release of medical or other information is NOT sufficient authorization for further disc losure. Family History Family Member Name Family Member Gender Family Member Status Date o f Status Description Data Source(s) Unknown Unknown Problem MEDENT ([facility]) Unknown Unknown Problem MEDENT ([facility]) Unknown Unknown Problem MEDENT ([facility]) Unknown Unknown Problem MEDENT ([facility]) Unknown Unknown Problem MEDENT ([facility] ) Encounters Encounter Providers Location Date Indications Data Source(s ) Office Visit, Est Pt., Level 4 [address] [place] [address] 07/13/2020 12:00:00 AM EST eCW1 (formerly [facility]) Office Visit Attender: Cruzito Tan MD Main office - [place] 07/01/2020 01:45:00 PM EST MEDENT ([facility]) Office Visit, Est Pt., Level [address] [place] [address] 06/24/2020 12:00:00 AM EST eCW1 (formerly [facility]) Outpatient Attender: FIGUEROA VAZ Physical Therapy 06/18/2020 0 9:45:00 AM EST MEDENT ([facility]) Outpatient Attender: Maria Elena DEWITT.ISRRAEL-SJOswaldo.ISRRAEL 2019 12:00:00 AM EST - 06/12/2020 02:38:36 PM EST [facility] Unknown [address] [place] [address], [facility] [address] 06/09/2020 12:00:00 AM EST eCW1 ([facility]) Unknown [address] [facility] [address] 06/08/2020 12:00:00 AM EST eCW1 ([facility]) Office Visit, Est Pt., Level 5 [address] [place] [address] 06/04/2020 12:00:00 AM EST eCW1 (formerly [facility]) Outpatient Attender: Kaylene Desir 05/26 01:00:00 PM EST MEDENT ([facility] ) [place] [address] [facility] [address] 05/21/2020 12:00:00 AM EST eCW1 ([facility]) [place] [address] [facility] [address] 05/19/2020 12:00:00 AM EST eCW1 ([facility]) [place] [address] [facility] [address] 05/12/2020 12:00:00 AM EST eCW1 ([facility]) [place] [address] [facility] [address] 05/05/2020 12:00:00 AM EST eCW1 ([facility]) Outpatient Attender: FIGUEROA VAZ Physical Therapy 04/28/2020 0 3:15:00 PM EDT MEDENT ([facility]) Office Visit Attender: Cruzito Tan MD Main office - [place] 01/28/2020 02:00:00 PM EDT MEDENT ([facility]) Out[place] [address] [facility] [address] 01/21/2020 12:00:00 AM EDT eCW1 ([facility]) Outpatient Referrer: Kaylene Rain DO 12/23/2019 07:50:00 AM EDT [facility] Outpatient Attender: Kaylene Desir 12/18 02:00:00 PM EDT MEDENT ([facility] ) Outpatient Attender: JAYSON DEWITT.ISRRAEL-SJP.ISRRAEL 0 12:00:00 AM EDT - 10/24/2019 09:09:45 AM EDT [facility] Outpatient Attender: Kaylene Gottilogradha Rendon 10/21 02:45:00 PM EDT MEDENT ([facility] ) Outpatient Referrer: Kaylene Rain DO 10/10/2019 01:59:00 PM EDT [facility] Outpatient Referrer: Kaylene Rain DO 10/02/2019 03:18:00 PM EDT [facility] Outpatient Referrer: Kaylene Rain DO 10/02/2019 10:31:00 AM EDT [facility] Outpatient Attender: Kaylene Rain DO Gwyn Julieta 09/22 02:45:00 PM EDT MEDENT ([facility] ) Outpatient Attender: Radha Clark RPA Angelica/Irrigon/Bryson/R eindl 09/17/2019 11:00:00 AM EDT MEDENT ([facility]) Outpatient Attender: Kaylene Desir 09/05 01:00:00 PM EST MEDENT ([facility] ) Outpatient Referrer: JAYSON ONEILL-SJP.ISRRAEL 08/07/2019 12:00:00 AM EST [facility] Outpatient Attender: Kaylene Desir 07/23 12:30:00 PM EST MEDENT ([facility] ) Outpatient Attender: JAYSON MACE MDConsultant: JAYSON Avitia JP.ISRRAEL-SJP 07/10/2019 12:22:38 PM EST - 07/10/2019 02:02:15 PM EST [facility] Outpatient Referrer: Kaylene Rain DO 07/08/2019 02:11:00 PM EST [facility] Outpatient Attender: Radha Clark RPA Angelica/Irrigon/Bryson/R eindl 06/19/2019 10:15:00 AM EST MEDENT ([facility]) Outpatient Attender: Kaylene Desir 06/17 01:30:00 PM EST MEDENT ([facility] ) Outpatient Referrer: Kaylene Rain DO 06/14/2019 02:15:00 PM EST [facility] Outpatient Attender: Cruzito Tan MD Main office - [place] 06/12/2019 12:30:00 PM EST MEDENT ([facility] LUISA [facility]eno) Immunizations Vaccine [...] active Take 25 mg by mouth daily [facility] 50 mg 06/02/2020 12:00:00 AM EST tablet 15 TAKE ONE TO TWO TABLETS BY MOUTH EVERY 6 HOURS NEEDED FOR PAIN MAXIMUM DAILY DOSE = 3 TABLETS TAKE ONE TO TWO TABLETS BY MOUTH EVERY 6 HOURS NEEDED FOR PAIN MAXIMUM DAILY DOSE = 3 TABLETS SOLD: 06/02/2020 [facility] 50 mg 05/29/2020 12:00:00 AM EST tablet 15 TAKE ONE TO TWO TABLETS BY MOUTH EVERY 6 HOURS NEEDED FOR PAIN MAXIMUM DAILY DOSE = 3 TAKE ONE TO TWO TABLETS BY MOUTH EVERY 6 HOURS NEEDED FOR PAIN MAXIMUM DAILY DOSE = 3 SOLD: 05/29/2020 [facility] Pramipexole dihydrochloride 1 MG Oral Tablet [Mirapex] Mirap ex 05/26/2020 12:00:00 AM EST ORAL active Alejandro VIVAS ([facility]) 25 mg 05/25/2020 12:00:00 AM EST tablet 30 TAKE ONE TABLET BY MOUTH EVERY DAY TAKE ONE TABLET BY MOUTH EVERY DAY SOLD: 05/25/2020 [facility] 25 mg 05/25/2020 12:00:00 AM EST tablet 30 TAKE ONE TABLET BY MOUTH EVERY DAY TAKE ONE TABLET BY MOUTH EVERY DAY SOLD: 06/22/2020 [facility] Famotidine 40 MG Oral Tablet famotidine (PEPCID) 40 MG tablet famotidine (PEPCID) 40 MG tablet 05/23/2020 12:00:00 AM EST 40 mg Oral active Take 40 mg by mouth daily [facility] 50 mg 05/20/2020 12:00:00 AM EST tablet 15 TAKE ONE TO TWO TABLETS BY MOUTH EVERY 6 HOURS NEEDED FOR PAIN MAXIMUM DAILY DOSE = 3 TABLETS TAKE ONE TO TWO TABLETS BY MOUTH EVERY 6 HOURS NEEDED FOR PAIN MAXIMUM DAILY DOSE = 3 TABLETS SOLD: 05/20/2020 [facility] 1 mg 05/19/2020 12:00:00 AM EST tablet 90 TAKE ONE TABLET BY MOUTH EVERY DAY AT BEDTIME MAXIMUM DAILY DOSE = 1 TAKE ONE TABLET BY MOUTH EVERY DAY AT BE DTIME MAXIMUM DAILY DOSE = 1 SOLD: 05/19/2020 [facility] Triamcinolone Acetonide 0.001 MG/MG [facility] Ointment Triamcinolone Acetonide 0.1 % Triamcinolone Acetonide 0.1 % 05/19/2020 12:00:00 AM EST 1.0 {application} active Triamcinolone Aceton zita 0.1 % eCW1 ([facility]) Triamcinolone Acetonide 0.001 MG/MG Topi reg[facility] Ointment Triamcinolone Acetonide 0.1 % Triamcinolone Acetonide 0.1 % 05/19/2020 12:00:00 AM EST 1.0 {application} active Triamcinolone Aceton zita 0.1 % eCW1 ([facility]) Triamcinolone Acetonide 0.001 MG/MG [facility] Ointment Triamcinolone Acetonide 0.1 % Triamcinolone Acetonide 0.1 % 05/19/2020 12:00:00 AM EST 1.0 {application} active Triamcinolone Aceton zita 0.1 % eCW1 ([facility]) Triamcinolone Acetonide 0.001 MG/MG Topi reg[facility] Ointment Triamcinolone Acetonide 0.1 % Triamcinolone Acetonide 0.1 % 05/19/2020 12:00:00 AM EST 1.0 {application} active Triamcinolone Aceton zita 0.1 % eCW1 ([facility]) Triamcinolone Acetonide 0.001 MG/MG [facility]i reg[facility] Ointment Triamcinolone Acetonide 0.1 % Triamcinolone Acetonide 0.1 % 05/19/2020 12:00:00 AM EST 1.0 {application} active Triamcinolone Aceton zita 0.1 % eCW1 ([facility]) Triamcinolone Acetonide 0.001 MG/MG [facility]i reg[facility] Ointment Triamcinolone Acetonide 0.1 % Triamcinolone Acetonide 0.1 % 05/19/2020 12:00:00 AM EST 1.0 {application} active Triamcinolone Aceton zita 0.1 % eCW1 ([facility]) Triamcinolone Acetonide 0.001 MG/MG [facility]i reg[facility] Ointment Triamcinolone Acetonide 0.1 % Triamcinolone Acetonide 0.1 % 05/19/2020 12:00:00 AM EST 1.0 {application} active Triamcinolone Aceton zita 0.1 % eCW1 ([facility]) Triamcinolone Acetonide 0.001 MG/MG [facility]i reg[facility] Ointment Triamcinolone Acetonide 0.1 % Triamcinolone Acetonide 0.1 % 05/12/2020 12:00:00 AM EST 1.0 {application} active Triamcinolone Aceton zita 0.1 % eCW1 ([facility]) Triamcinolone Acetonide 0.001 MG/MG [facility] Ointment Triamcinolone Acetonide 0.1 % Triamcinolone Acetonide 0.1 % 05/12/2020 12:00:00 AM EST 1.0 {application} active Triamcinolone Aceton zita 0.1 % eCW1 ([facility]) Triamcinolone Acetonide 0.001 MG/MG [facility]i reg[facility] Ointment Triamcinolone Acetonide 0.1 % Triamcinolone Acetonide 0.1 % 05/12/2020 12:00:00 AM EST 1.0 {application} active Triamcinolone Aceton zita 0.1 % eCW1 ([facility]) Triamcinolone Acetonide 0.001 MG/MG Topi reg[facility] Ointment Triamcinolone Acetonide 0.1 % Triamcinolone Acetonide 0.1 % 05/12/2020 12:00:00 AM EST 1.0 {application} active Triamcinolone Aceton zita 0.1 % eCW1 ([facility]) Triamcinolone Acetonide 0.001 MG/MG Topi reg[facility] Ointment Triamcinolone Acetonide 0.1 % Triamcinolone Acetonide 0.1 % 05/12/2020 12:00:00 AM EST 1.0 {application} active Triamcinolone Aceton zita 0.1 % eCW1 ([facility]) 0.1 % 05/12/2020 12:00:00 AM EST ointment [...] active Triamcinolone Aceton zita 0.1 % eCW1 ([facility]) Triamcinolone Acetonide 0.001 MG/MG Topi regina Ointment Triamcinolone Acetonide 0.1 % Triamcinolone Acetonide 0.1 % 05/12/2020 12:00:00 AM EST 1.0 {application} active Triamcinolone Aceton zita 0.1 % eCW1 ([facility]) Triamcinolone Acetonide 0.001 MG/MG Topi reg[facility] Ointment Triamcinolone Acetonide 0.1 % Triamcinolone Acetonide 0.1 % 05/12/2020 12:00:00 AM EST 1.0 {application} active Triamcinolone Aceton zita 0.1 % eCW1 ([facility]) Triamcinolone Acetonide 0.001 MG/MG Topi regina Ointment Triamcinolone Acetonide 0.1 % Triamcinolone Acetonide 0.1 % 05/12/2020 12:00:00 AM EST 1.0 {application} active Triamcinolone Aceton zita 0.1 % eCW1 ([facility]) 25 mg 05/11/2020 12:00:00 AM EST tablet 90 TAKE ONE TABLET BY MOUTH AT BEDTIME TAKE ONE TABLET BY MOUTH AT BEDTIME SOLD: 05/11/2020 [facility] Alprazolam 0.5 MG Oral Tablet ALPRAZOLAM 05/09/2020 [...] TABLET BY MOUTH ONCE DAILY SOLD: 06/05/2020 [facility] Hydroxychloroquine Sulfate 200 MG Oral Tablet [...] TABLET BY MOUTH ONCE DAILY SOLD: 05/08/2020 [facility] 25 mg 05/08/2020 [...] 12:00:00 AM EDT ORAL active MEDENT ([facility] 300-60 mg 04/07/2020 12:00:00 [...] 12/02/2019 12:00:00 AM EDT ORAL active MEDENT ([facility]) Acetaminophen 325 MG / Hydrocodone Bitartrate 5 MG Ora l Tablet Hydrocodone Bitartrate/Acetaminophen 11/27/2019 12:00:00 AM EDT ORAL active MEDENT ([facility]) 5-325 mg 11/27/2019 12:00:00 [...] 11/06/2019 12:00:00 AM EDT ORAL completed MEDENT ([facility]) 25 mg 11/06/2019 12:00:00 [...] 11/06/2019 12:00:00 AM EDT ORAL completed MEDENT ([facility] ) 25 mg 11/06/2019 12:00:00 [...] Prednisone 10/23/2019 12:00:00 AM EDT completed MEDENT ([facility]) Losartan Potassium 25 MG Oral [...] Sulfate 09/23/2019 12:00:00 AM EDT active MEDENT ([facility]) atorvastatin 40 MG Oral Tablet Atorvastatin Calcium 09/23/2019 1 2:00:00 AM EDT ORAL active MEDENT ( [facility]) Alprazolam 0.5 MG Oral Tablet ALPRAZOLAM 09/18/2019 12:00:00 AM EDT ta blet 30 TAKE ONE TABLET BY MOUTH AT BEDTIME NEEDED MAXIMUM DAILY DOSE = 1 TAKE ONE TABLET BY MOUTH AT BEDTIME NEEDED MAXIMUM DAILY DOSE = 1 SOLD: 09/18/2019 [facility] Amlodipine 5 MG Oral Tablet Amlodipine Besylate 09/17/2019 12:00:00 A M EDT ORAL active MEDENT ([facility]) 5 mg 09/17/2019 12:00:00 AM EDT [...] e Take 20 mg by mouth daily [facility] 20 mg 07/24/2019 12:00:00 AM [...] 07/23/2019 12:00:00 AM EST ORAL completed [facility] ([facility]) 40 mg 07/23/2019 12:00:00 AM [...] by mouth 2 (two) times a day [facility] Alprazolam 0.5 MG Oral Tablet [...] Oral active Take 25 mg by mouth [facility] 300 mg 06/13/2019 12:00:00 AM [...] TABLET BY MOUTH AT BEDTIME SOLD: 09/27/2019 [facility] 1 mg 06/13/2019 12:00:00 AM EST [...] 12:00:00 AM EST ORAL active MEDENT ([facility]) 80 mg 06/11/2019 12:00:00 [...] by mouth 2 (two) times a day [facility] Insurance Providers Payer name Policy type / Coverage type Policy ID Covered republican ID Covered republican's relationship to thompson Policy Thompson Plan Information EMEDNY [id number] SP [id number] MEDICARE [id number] SP [id number] MEDICARE [id number] SP [id number] MEDICAID [id number] MEDICARE [id number] MEDICARE [id number] Jewell [id number] Y64 HUMANA GOLD O [id number] S [id number] MEDICAID M [id number] HUMANA GOLD [id number] SP [id number] MEDICARE C [id number] S [id number] EMEDNY [id number] SP [id number] MEDICAID [id number] SP [id number] MEDICARE [id number] Jewell [id number] Y64 MEDICARE [id number] SP [id number] A MEDICAID [id number] SP [id number] 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 [id number] Self [id number] Medicaid Medigap Part B [id number] Self [id number] Medicare Natl Govt Servic Medicare Primary [id number] Self [id number] MEDICAID [id number] SP [id number] MEDICAID [id number] SP [id number] 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 [id number] Self [id number] Medicaid Medigap Part B [id number] Self [id number] 63C Medicare Natl Govt Servic Medicare Primary [id number] Self [id number] 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 [id number] Self [id number] Medicaid Medigap Part B [id number] Self [id number] 63C Medicare [place] Govt Servic Medicare Primary [id number] Self [id number] Medicaid Medigap Part B [id number] Self [id number] 63C 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 [id number] Self [id number] Medicare [place]l Govt Servic Medicare Primary [id number] Self [id number] Medicaid Medigap Part B [id number] Self [id number] 63C 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 [id number] Self [id number] Medicare Natl Govt Servic Medicare Primary [id number] Self [id number] Medicaid Medigap Part B [id number] Self [id number] 63C 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 [id number] Self [id number] Medicare Natl Govt Servic Medicare Primary [id number] Self [id number] Medicaid Medigap Part B [id number] Self [id number] 63C 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 [id number] Self [id number] Medicare Natl Govt Servic Medicare Primary [id number] Self [id number] MEDICAID UNAVAILABLE [place]NA[place]ILA BLE [place] Medicare Primary [id number] Self [id number] Medicaid Medigap Part B [id number] Self [id number] 63C 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 [id number] Self [id number] Medicare Natl Govt Servic Medicare Primary [id number] Self [id number] MEDICAID [id number] Jewell [id number] MEDICARE [id number] Jewell [id number] A Medicaid Medigap Part B [id number] Self [id number] 63C 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 [id number] Self [id number] Medicare Natl Govt Servic Medicare Primary [id number] Self [id number] Medicaid Medigap Part B [id number] Self [id number] 63C 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 [id number] Self [id number] Medicare Natl Govt Servic Medicare Primary [id number] Self [id number] Medicaid Medigap Part B [id number] Self [id number] 63C 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 [id number] Self [id number] Medicare Natl Govt Servic Medicare Primary [id number] Self [id number] MEDICARE PI PI Medicaid Medigap Part B [id number] Self [id number] 63C 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 [id number] Self [id number] Medicare Natl Govt Servic Medicare Primary [id number] Self [id number] Medicaid Medigap Part B [id number] Self [id number] 63C 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 [id number] Self [id number] Medicare Natl Govt Servic Medicare Primary [id number] Self [id number] Medicaid Medigap Part B [id number] Self [id number] 63C 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 [id number] Self [id number] Medicare Natl Govt Servic Medicare Primary [id number] Self [id number] MEDICARE C [id number] S [id number] A Medicaid Medigap Part B [id number] Self [id number] 63C 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 [id number] Self [id number] Medicare Natl Govt Servic Medicare Primary [id number] Self [id number] Medicaid Medigap Part B [id number] Self [id number] 63C 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 [id number] Self [id number] Medicare Natl Govt Servic Medicare Primary [id number] Self [id number] MEDICAID [id number] SP [id number] Medicaid Medigap Part B [id number] Self [id number] 63C 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 [id number] Self [id number] Medicare Natl Govt Servic Medicare Primary [id number] Self [id number] Medicaid Medigap Part B [id number] Self [id number] 63C 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 [id number] Self [id number] Medicare Natl Govt Servic Medicare Primary [id number] Self [id number] MEDICARE [id number] SP [id number] A Medicaid [place] Medig[place] Part B Self Medicare Nat[place] Gov't Servi Medicare Primary Self Medicaid Medigap Part B 1 1 Self 1 1 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 Self Medicare [facility] Govt Servic Medicare Primary Self [place] Medigap Part B Self Medicare [facility] Medicare Primary Self [facility] () Workers 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 Self OTHER WORKERS COMPENSATION [id number] SP [id number] A Problems, Conditions, and Diagnoses Code Display Name Description Problem Type Effective Dates Data Source(s) I25.5 Ischemic cardiomyopathy Ischemic cardiomyopathy 907236 2020 12:00:00 AM EST [facility] M47.816 173649544 Lumbar spondylosis Problem 06/04/2020 12:00: 00 AM EST eCW1 ([facility]) I77.6 93088785 Vasculitis Problem 06/04/2020 12:00:00 AM ES T eCW1 ([facility]) M79.7 518491603 Fibromyalgia Problem 01/21/2020 12:00:00 AM EDT eCW1 ([facility]) 25997471 Neck pain Neck pain Problem 11/06/2019 12:00:00 AM ED T MEDENT ([facility]) 559045862 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 Problem 11/06/2019 12:00:00 AM EDT MEDENT ([facility]) 96172623 Abnormal gait Abnormal gait Problem 10/30/2019 12:00:00 AM EDT MEDENT ([facility]) 815952716 Nervous system symptoms Nervous system symptoms Proble m 10/30/2019 12:00:00 AM EDT MEDENT ([facility]) 257342648 CVA - cerebrovascular accident due to ce rebral artery occlusion CVA - cerebrovascular accident due to cerebral artery occlusion Problem 06/18/2019 12:00:00 AM EST MEDENT ([facility]) 96577416 Essential hypertension Essential hypertension Problem 06/14/2019 12:00:00 AM EST MEDENT ([facility]) I10 Essential (primary) hypertension Essential (primary) h ypertension Diagnosis 06/12/2020 01:26:55 PM EST [facility] E78.5 Hyperlipidemia, unspecified Hyperlipidemia, unspecifie d Diagnosis 06/12/2020 01:26:55 PM [facility] N18.9 Chronic kidney disease, unspecified Chronic kidn ey disease, unspecified Diagnosis 06/12/2020 01:26:55 PM [facility] Z72.0 Tobacco use Tobacco use Diagnosis 06/12/2020 01:26:55 PM [facility] I25.83 Coronary atherosclerosis due to lipid ri ch plaque Coronary atherosclerosis due to lipid ri Diagnosis 06/12/2020 01:26:55 PM [facility] I25.10 Atherosclerotic heart diseas e of [place] coronary artery without angina pectoris Atherosclerotic heart disease of [place] Diagnosis 06/12/2020 01:26:55 PM [facility] F41.9 Anxiety disorder, unspecified Anxiety disorder, unspec ified Diagnosis 10/23/2019 12:50:14 PM EDT [facility] D64.9 Anemia, unspecified Anemia, unspecified Diagnosis 0 10/23/2019 12:50:14 PM EDT [facility] Z86.73 Personal history of transien t ischemic attack (TIA), and cerebral infarction without residual deficits Personal history of transient ischemic a Diagnosis 10/23/2019 12:50:14 PM EDT [facility] M79.606 Pain in leg, unspecified Pain in leg, unspecified Diag nosis 07/10/2019 12:22:38 PM [facility] Surgeries/Procedures Procedure Description Date Indications Data Source(s) RADEX SPINE LUMBOSACRAL 2/3 VIEWS 06/18/2020 12:00:00 AM EST MEDENT ([facility]) Needle electromyography, each extremity, with related paraspinal areas, when performed, done with nerve conduction, amplitude and latency/velocity study; complete, five or more muscles studied, innervated by three or more nerves or four or more spinal levels (list separately in addition to the code for primary procedure). 06/15/2020 12:00:00 AM EST ANITHA T ([facility]) Needle electromyography, each extremity, with related paraspinal areas, when performed, done with nerve conduction, amplitude and latency/velocity study; complete, five or more muscles studied, innervated by three or more nerves or four or more spinal levels (list separately in addition to the code for primary procedure). 06/15/2020 12:00:00 AM EST MEDEN T ([facility] ) Nerve Conduction 11-12 Studies 06/15/2020 12:00:00 AM EST MEDENT ([facility] ) ECG ROUTINE ECG W/LEAST 12 LDS W/I&R POCT AMB EKG Routine 06/12/2020 5:31 PM EST Coronary artery disease due to lipid rich plaque Essential hypertension 06/12/2020 10:31:00 PM EST Essential hypertensionCoronary artery disease due to lipid rich plaque [facility] Essential hypertension Coronary artery disease due to lipid tristian h plaque HEPATIC FUNCTION PANEL HEPATIC FUNCTION PANEL Routine 05/26/2020 05/26/2020 12:00:00 AM EST [facility] BASIC METABOLIC PANEL CALCIUM TOTAL BASIC METABOLIC PANEL Routine 05/26/2020 05/26/2020 12:00:00 AM [facility] BLOOD COUNT COMPLETE AUTO&AUTO DIFRNTL WBC COUNT CBC AND DIFFER ENTIAL Routine 04/21/2020 04/21/2020 12:00:00 AM EDT [facility] Diabetic Retinal Eye Exam 02/25/2020 12:00:00 AM EDT MEDENT ([facility]) RADEX SPINE LUMBOSACRAL 2/3 VIEWS 01/28/2020 12:00:00 AM EDT MEDENT ([facility] ) RADEX SPINE LUMBOSACRAL 2/3 VIEWS 12/16/2019 12:00:00 AM EDT MEDENT ([facility] ) CLTX VRT BDY FX W/O MANJ REQ&W/CSTING/BRACING 12/02/19 12:00:00 AM EDT [facility] ([facility] [facility] ) MRI BRAIN BRAIN STEM W/O CONTRAST MATERIAL 11/02/2019 12:00:00 AM EDT [facility] ([facility], ) MRI BRAIN BRAIN STEM W/O CONTRAST MATERIAL 11/02/2019 12:00:00 AM EDT [facility] ([facility] ) MRI SPINAL CANAL CERVICAL W/O CONTRAST MATRL 0 12:00:00 AM EDT [facility] ([facility], ) MRI SPINAL CANAL CERVICAL W/O CONTRAST MATRL 0 12:00:00 AM EDT [facility] ([facility]) RADEX HAND MINIMUM 3 VIEWS 08/23/2019 12:00:00 AM EST [facility] ([facility]) RADEX HAND MINIMUM 3 VIEWS 07/25/2019 12:00:00 AM EST [facility] ([facility]) RADEX HAND MINIMUM 3 VIEWS 07/11/2019 12:00:00 AM EST [facility] ([facility]) APPLICATION CAST ELBOW FINGER SHORT ARM 07/04/2019 12: 00:00 AM EST [facility] ([facility]) CLTX METACARPAL FX W/O MANIPULATION EACH BONE 06/13/20 12:00:00 AM EST [facility] ([facility]) Results ID Date Data Source [id number] 07/10/2020 03:17:00 PM EST [facility] ([facility]) Name Value Range Interpretation Code Description Data Amber rce(s) Supporting Document(s) Creatinine [Mass/volume] in Urine 341.0 mg/dL [facility] ([facility]) <content>note:<nlbl:demographic_changed> </content>
<content></content> Protein [Mass/volume] in Urine 198.0 mg/dL 0.0-12.0 [facility] ([facility]) <content>note:<nlbl:demographic_changed> </content>
<content></content> ID Date Data Source [id number] 07/10/2020 03:14:00 PM EST [facility] Name Value Range Interpretation Code Description Data Amber rce(s) Supporting Document(s) Complement C3 [Mass/volume] in Serum or Plasma 139 mg/dL 90-180 [facility] ([facility]) <content>note:<nlbl:demographic_changed> </content>
<content></content> Complement C4 [Mass/volume] in Serum or Plasma 29 mg/dL 10-40 [facility] ([facility]) <content>note:<nlbl:demographic_changed> </content>
<content></content> C reactive protein [Mass/volume] in Serum or Plasma by High sensitivity method 2.83 mg/dL 0.00-0.30 [facility] ([facility] ) <content>note:<nlbl:demographic_changed> </content>
<content></content> ID Date Data Source [id number] 07/10/2020 03:14:00 PM EST [facility] ([facility]) Name Value Range Interpretation Code Description Data Amber rce(s) Supporting Document(s) Blood Urea Nitrogen 15 mg/dL 7-18 [facility] ([facility]) Glucose, Fasting 110 mg/dL 70-100 [facility] ([facility]) Creatinine For GFR 1.55 mg/dL 0.55-1.30 [facility] ([facility]) Glomerular Filtration Rate 34.8 [facility] ([facility]) <content>Units are mL/min/1.73 m2</content>
<content></content>
<content>Chronic Kidney Disease Staging per NKF:</content>
<content></content>
<content>Stage I & II GFR >=60 Normal to Mildly Decreased</content>
<content>Stage III GFR 30- 59 Moderately Decreased</content>
<content>Stage IV GFR 15-29 Severely Decreased</content>
<content>Stage V GFR <15 Very Little GFR Left</content>
<content>ESRD GFR <15 on POLICE CHIEF DEPUTY</content>
<content></content> Sodium Level 138 meq/L 136-145 [facility] ([facility]) Chloride Level 110 meq/L 98-107 [facility] ([facility]) Carbon Dioxide Level 24 meq/L 21-32 [facility] ([facility]) Potassium Serum 4.9 meq/L 3.5-5.1 [facility] ([facility]) Calcium Level 8.5 mg/dL 8.8-10.2 [facility] ([facility]) Anion Gap 4 meq/L 8-16 [facility] [facility] Ast/Sgot 5 U/L 7-37 [facility] ([place] [facility]) Alt/SGPT 10 U/L 12-78 [facility] ([place] [facility]) Bilirubin,Total 0.2 mg/dL 0.2-1.0 [facility] ([facility]) Alkaline Phosphatase 92 U/L 45-117 [facility] ([facility]) Albumin 2.7 GM/DL 3.2-5.2 [facility] ([place] [facility]) Total Protein 6.7 GM/DL 6.4-8.2 [facility] ([facility]) Albumin/Globulin Ratio 0.7 1.2-2.2 [facility] ([facility]) ID Date Data Source [id number] 07/10/2020 03:14:00 PM EST [facility] ([facility]) Name Value Range Interpretation Code Description Data Amber rce(s) Supporting Document(s) Erythrocyte sedimentation rate by Westergren method 79 mm/hr 0-30 [facility] ([facility]) ID Date Data Source [id number] 07/10/2020 03:14:00 PM EST [facility] ([facility]) Name Value Range Interpretation Code Description Data Amber rce(s) Supporting Document(s) White Blood Count 11.3 10 4.0-10.0 [facility] ([facility]) Hemoglobin 9.7 g/dL 12.0-15.5 [facility] ([place] [facility]) Red Blood Count 3.54 10 4.00-5.40 [facility] ([facility]) Hematocrit 32.0 % 36.0-47.0 [facility] ([place] [facility]) Mean Corpuscular Volume 90.4 fl 80.0-96.0 [facility] ([facility]) Mean Corpuscular Hemoglobin 27.4 pg 27.0-33.0 ME [facility]ENT ([facility]) Mean Corpuscular HGB Conc 30.3 g/dL 32.0-36.5 MEDE NT ([facility]) Red Cell Distribution Width 16.1 % 11.5-14.5 PA [facility] ([facility]) Platelet Count, Automated 450 10 150-450 MEDE NT ([facility]) Neutrophils % 61.2 % 36.0-66.0 [facility] ([facility]) Lymph % 18.6 % 24.0-44.0 [facility]) Edgar % 9.1 % 0.0-5.0 [facility]) Eos % 10.2 % 0.0-3.0 [facility] [facility]) Immature Granulocyte % 0.4 % 0-3.0 [facility] ([facility]) Baso % 0.5 % 0.0-1.0 [facility] [facility]) Neutrophils # 6.9 10 1.5-8.5 [facility] ([facility]) Nucleated Red Blood Cell % 0.0 % 0-0 [facility] ([facility]) Lymph # 2.1 10 1.5-5.0 [facility] [facility]) Edgar # 1.0 10 0.0-0.8 [facility] [facility]) Eos # 1.2 10 0.0-0.5 [facility] [facility]) Baso # 0.1 10 0.0-0.2 [facility] [facility]) ID Date Data Source RHEUMATOID FACTOR QUANT 06/04/2020 12:00:00 AM EST eCW1 ([facility]) Name Value Range Interpretation Code Description Data Amber rce(s) Supporting Document(s) 67.1 <15.0 eCW1 ([facility]) ID Date Data Source IgG SUBCLASS 4 06/04/2020 12:00:00 AM EST eCW1 ([facility]) Name Value Range Interpretation Code Description Data Amber rce(s) Supporting Document(s) 237 2-96 eCW1 ([facility]) ID Date Data Source CREATININE,RANDOM URINE 06/04/2020 12:00:00 AM EST eCW1 ([facility]) Name Value Range Interpretation Code Description Data Amber rce(s) Supporting Document(s) 267.0 eCW1 ([facility]) ID Date Data Source LAKESHA TITER & PATTERN 06/04/2020 12:00:00 AM EST eCW1 ([facility]) Name Value Range Interpretation Code Description Data Amber rce(s) Supporting Document(s) Negative . eCW1 ([facility]) ID Date Data Source ANTI-SJOGRENS A&B ANTIBODIES 06/04/2020 12:00:00 AM EST eCW1 ([facility]) Name Value Range Interpretation Code Description Data Amber rce(s) Supporting Document(s) <0.2 0.0-0.9 eCW1 ([facility]) <0.2 0.0-0.9 eCW1 ([facility]) ID Date Data Source TOTAL PROTEIN,RANDOM URINE 06/04/2020 12:00:00 AM EST eCW1 ( [facility]) Name Value Range Interpretation Code Description Data Amber rce(s) Supporting Document(s) 147.1 0.0-12.0 eCW1 ([facility]) ID Date Data Source HEPATITIS C ANTIBODY INDEX 06/04/2020 12:00:00 AM EST eCW1 ( [facility]) Name Value Range Interpretation Code Description Data Amber rce(s) Supporting Document(s) 0.0 <0.8 eCW1 ([facility]) ID Date Data Source Lupus Anticoagulant with RFX Send Out ONLY 06/04/2020 12:00: 00 AM EST eCW1 ([facility]) Name Value Range Interpretation Code Description Data Amber rce(s) Supporting Document(s) 42.9 0.0-47.0 eCW1 ([facility]) 39.1 0.0-51.9 eCW1 ([facility]) Comment: . eCW1 ([facility]) ID Date Data Source CRYOGLOBULINS 06/04/2020 12:00:00 AM EST eCW1 ([facility]) Name Value Range Interpretation Code Description Data Amber rce(s) Supporting Document(s) NEGATIVE NEGATIVE eCW1 ([facility]) ID Date Data Source ANTI-CARDIOLIPIN ANTIBODIES 06/04/2020 12:00:00 AM EST eCW1 ([facility]) Name Value Range Interpretation Code Description Data Amber rce(s) Supporting Document(s) <9 0-12 eCW1 ([facility]) <9 0-11 eCW1 ([facility]) <9 0-14 eCW1 ([facility]) ID Date Data Source HEPATITIS B CORE ANTIBODY IGG 06/04/2020 12:00:00 AM EST eCW 1 ([facility]) Name Value Range Interpretation Code Description Data Amber rce(s) Supporting Document(s) Negative Negative eCW1 ([facility]) ID Date Data Source ERYTHROCYTE SEDIMENTATION RATE 06/04/2020 12:00:00 AM EST eC W1 ([facility]) Name Value Range Interpretation Code Description Data Amber rce(s) Supporting Document(s) 54 0-30 eCW1 ([facility]) ID Date Data Source HEPATITIS B SURFACE ANTIGEN 06/04/2020 12:00:00 AM EST eCW1 ([facility]) Name Value Range Interpretation Code Description Data Amber rce(s) Supporting Document(s) NEGATIVE NEGATIVE eCW1 ([facility]) ID Date Data Source CPK CREATINE PHOSPHOKINASE 06/04/2020 12:00:00 AM EST eCW1 ( [facility]) Name Value Range Interpretation Code Description Data Amber rce(s) Supporting Document(s) 42 26-192 eCW1 ([facility]) ID Date Data Source COMPLEMENT C4 06/04/2020 12:00:00 AM EST eCW1 ([facility]) Name Value Range Interpretation Code Description Data Amber rce(s) Supporting Document(s) 32 10-40 eCW1 ([facility]) ID Date Data Source COMPLEMENT C3 06/04/2020 12:00:00 AM EST eCW1 ([facility]) Name Value Range Interpretation Code Description Data Amber rce(s) Supporting Document(s) 156 90-180 eCW1 ([facility]) ID Date Data Source BETA-2 GLYCOPROTEIN 1 LEANN ROBERT 06/04/2020 12:00:00 AM EST eCW 1 ([facility]) Name Value Range Interpretation Code Description Data Amber rce(s) Supporting Document(s) <9 0-25 eCW1 ([facility]) <9 0-32 eCW1 ([facility]) <9 0-20 eCW1 ([facility]) ID Date Data Source [id number] 05/26/2020 01:48:00 PM EST [facility] ([facility]) Name Value Range Interpretation Code Description Data Amber rce(s) Supporting Document(s) Glucose [Mass/volume] in Serum or Plasma 117 mg/dL 74-99 [facility] ([facility]) 100-125 mg/dL PRE-DIABETES/FASTING >126 mg/dL DIABETES/FASTING Urea nitrogen [Mass/volume] in Serum or Plasma 12 mg/dL 7-18 [facility] ([facility]) Sodium [Moles/volume] in Serum or Plasma 142 meq/L 136-145 [facility] ([facility]) Creatinine 1.6 mg/dL 0.6-1.3 [facility] Chloride [Moles/volume] in Serum or Plasma 106 meq/L 98-107 [facility] ([facility]) Carbon dioxide, total [Moles/volume] in Serum or Plasma 25 meq/L 21 -32 [facility] ([facility]) Potassium [Moles/volume] in Serum or Plasma 3.5 meq/L 3.5-5.1 [facility] ([facility]) Calcium [Mass/volume] in Serum or Plasma 8.6 mg/dL 8.5-10.1 [facility] ([facility]) Total Bilirubin 0.2 mg/dL 0.2-1.0 [facility] ([facility]) Aspartate aminotransferase [Enzymatic activity/volume] in Serum or Plasma 12 U/L 15-37 [facility] ([facility] ) Alkaline phosphatase isoenzyme [Units/volume] in Serum or Pl asma 92 mg/dL 46-116 [facility] ([facility]) Proteinase 3 Ab [Units/volume] in Serum 7.2 g/dL 6.4-8.2 [facility] ([facility]) Alanine aminotransferase [Enzymatic activity/volume] in Seru m or Plasma 13 U/L 12-78 [facility] Albumin [Mass/volume] in Serum or Plasma 3.2 g/dL 3.4-5.0 [facility] ([facility]) Glomerular filtration rate/1.73 sq M pre dicted among non-blacks [Volume Rate/Area] in Serum or Plasma by Creatinine-based formula (MDRD) 32 mL/min [facility] Glomerular filtration rate/1.73 sq M pre dicted among blacks [Volume Rate/Area] in Serum or Plasma by Creatinine-based formula (MDRD) 38 mL/min [facility] <content>CHRONIC KIDNEY DISEASE STAGING PER NKF</content>
<content></content>
<content>STAGE I & II GFR >= 60 NORMAL TO MILDLY DECREASED</content>
<content>STAGE III GFR 30-59 MODERATELY DECREASED</content>
<content>STAGE IV GFR 15-29 SEVERELY DECREASED</content>
<content>STAGE V GFR <15 VERY LITTLE GFR LEFT</content>
<content>ESRD GFR <15 ON POLICE CHIEF DEPUTY</content>
<content></content> A/G Ratio 0.80 CALC 1.00-1.90 [facility] ([facility]) ID Date Data Source [id number] 05/26/2020 01:48:00 PM EST [facility] Name Value Range Interpretation Code Description Data Amber rce(s) Supporting Document(s) Erythrocytes [#/volume] in Blood by Automated count 3.79 x10*6/UL 4.2 0-6.30 [facility] ([facility]) Leukocytes [#/volume] in Blood by Automated count 11.9 x10*3/UL 4.1-1 0.9 [facility] ([facility]) Hematocrit [Volume Fraction] of Blood by Automated count 32.1 % 3 7.0-51.0 [facility] MCV 84.7 fL 80.0-97.0 [facility] ([facility]) Hemoglobin [Mass/volume] in Blood 10.7 g/dL 12.0-18.0 [facility] ([facility]) Erythrocyte distribution width [Ratio] by Automated count 16.2 % 11.6-13.7 [facility] ([facility]) MCH 28.4 pg 26.0-32.0 [facility] [facility]) MCHC 33.5 g/dL 31.0-38.0 [facility] [facility]) Platelets [#/volume] in Blood by Automated count 560 x10*3/UL 140-440 [facility] ([facility]) Lymph % 17.9 % 10.0-58.5 [facility] [facility]) MPV 7.6 FL 7.8-11.0 [facility] [facility]) Mid % 5.5 % 1.7-9.3 [facility] [facility]) Neut % 76.6 % 37.0-92.0 [facility] [facility]) Lymph # 2.1 x10*3/UL 0.6-4.1 [facility] ([facility]) Neut # 9.1 x10*3/UL 2.0-7.8 [facility] ([facility]) Mid # 0.7 x10*3/UL 0.1-0.6 [facility] ([facility]) ID Date Data Source [id number] 05/14/2020 12:00:00 AM EST [facility] Patient Name: MAXWELL AQUINO [facility] Date [facility] : 1945[facility] [place] [address] Date of Exam: 05/14/2020#: Fax: [phone] EXAM: [...] cm at the L3 level on the M8ljfibtze series. The diameter appears to be about [...] by: Rusty Yates MD 05/14/2020 11:48 AM [facility] ( & Angela)RafiV/jmPola you for referring MAHESH AQUINO to our office. Electronically Signed - RAFI 05/14/20 12:29 Name Value Range Interpretation Code Description Data Amber rce(s) Supporting Document(s) ID Date Data Source [id number] 04/29/2020 02:50:00 PM EDT [facility] ([facility]) Name Value Range Interpretation Code Description Data Amber rce(s) Supporting Document(s) Carcinoembryonic Ag [Mass/volume] in Serum or Plasma 4.0 ng/mL [facility] ([facility]) THE CEA ASSAY IS PERFORMED ON THE JimuboxAUR BY CHEMILUMINESCENCE AND SHOULD NOT BE COMPARED INTERCHANGEABLY WITH OTHER METHODS. IT SHOULD NOT BE USED ALONE A SCREENING TEST OR DIAGNOSIS FOR THE PRESENCE OR ABSENCE OF MALIGNANT DISEASE. PREDICTIONS OF DISEASE RECURRENCE SHOULD NOT BE BASED SOLELY ON VALUES OBTAINED FROM SERIAL PATIENT SERUM VALUES. ID Date Data Source [id number] 04/29/2020 02:50:00 PM EDT [facility] ([facility]) Name Value Range Interpretation Code Description Data Amber rce(s) Supporting Document(s) Glucose, Fasting 86 mg/dL 70-100 [facility] ([facility]) Blood Urea Nitrogen 14 mg/dL 7-18 [facility] ([facility]) Creatinine For GFR 1.68 mg/dL 0.55-1.30 [facility] Glomerular Filtration Rate 31.8 [facility] ([facility]) <content>Units are mL/min/1.73 m2</content>
<content></content>
<content>Chronic Kidney Disease Staging per NKF:</content>
<content></content>
<content>Stage I & II GFR >=60 Normal to Mildly Decreased</content>
<content>Stage III GFR 30- 59 Moderately Decreased</content>
<content>Stage IV GFR 15-29 Severely Decreased</content>
<content>Stage V GFR <15 Very Little GFR Left</content>
<content>ESRD GFR <15 on POLICE CHIEF DEPUTY</content>
<content></content> Chloride Level 110 meq/L 98-107 [facility] ([facility]) Sodium Level 140 meq/L 136-145 [facility] ([facility]) Potassium Serum 4.1 meq/L 3.5-5.1 [facility] ([facility]) Anion Gap 5 meq/L 8-16 [facility] ([facility]) Carbon Dioxide Level 25 meq/L 21-32 [facility] Alt/SGPT 9 U/L 12-78 [facility] ([facility]) Calcium Level 8.3 mg/dL 8.8-10.2 [facility] ([facility]) Ast/Sgot 4 U/L 7-37 [facility] ([facility]) Alkaline Phosphatase 85 U/L 45-117 [facility] Bilirubin,Total 0.2 mg/dL 0.2-1.0 [facility] ([facility]) Total Protein 6.8 GM/DL 6.4-8.2 [facility] ([facility]) Albumin/Globulin Ratio 0.8 1.2-2.2 [facility] ([facility]) Albumin 3.0 GM/DL 3.2-5.2 [facility] [facility]) ID Date Data Source [id number] 04/29/2020 02:50:00 PM EDT [facility] ([facility]) Name Value Range Interpretation Code Description Data Amber rce(s) Supporting Document(s) Red Blood Count 3.57 10 4.00-5.40 [facility] ([facility]) White Blood Count 12.1 10 4.0-10.0 [facility] ([facility]) Hemoglobin 9.5 g/dL 12.0-15.5 [facility] [facility] Hematocrit 31.7 % 36.0-47.0 [facility] ([place] [facility]) Mean Corpuscular Volume 88.8 fl 80.0-96.0 [facility] ([facility]) Mean Corpuscular Hemoglobin 26.6 pg 27.0-33.0 [facility] ([facility]) Mean Corpuscular HGB Conc 30.0 g/dL 32.0-36.5 [facility] NT ([facility]) Red Cell Distribution Width 16.7 % 11.5-14.5 [facility] ([facility]) Platelet Count, Automated 439 10 150-450 [facility] NT ([facility]) Neutrophils % 62.7 % 36.0-66.0 [facility] ([facility]) Lymph % 22.4 % 24.0-44.0 [facility] [facility]) Edgar % 7.9 % 0.0-5.0 [facility] [facility]) Eos % 6.0 % 0.0-3.0 [facility] [facility]) Immature Granulocyte % 0.3 % 0-3.0 [facility] ([facility]) Nucleated Red Blood Cell % 0.0 % 0-0 [facility] ([facility]) Baso % 0.7 % 0.0-1.0 [facility] [facility]) Neutrophils # 7.6 10 1.5-8.5 [facility] ([facility]) Edgar # 1.0 10 0.0-0.8 [facility] [facility]) Lymph # 2.7 10 1.5-5.0 [facility] [facility] Eos # 0.7 10 0.0-0.5 [facility] [facility] Baso # 0.1 10 0.0-0.2 [facility] [facility] ID Date Data Source [id number] 03/13/2020 11:32:00 AM EDT [facility] ([facility]) Name Value Range Interpretation Code Description Data Amber rce(s) Supporting Document(s) Erythrocyte sedimentation rate by Westergren method 41 mm/hr 0-15 [facility] ([facility]) ID Date Data Source [id number] 03/13/2020 11:31:00 AM EDT [facility] Name Value Range Interpretation Code Description Data Amber rce(s) Supporting Document(s) Perinuclear AB Anca-P Laboratory test result [facility] The presence of positive fluorescence ex hibiting P-ANCA or C-ANCA patterns alone is not specific for the diagnosis of Carmen's Granulomatosis (WG) or microscopic polyangiitis. Decisions about treatment should not be based solely on ANCA IFA results. The International ANCA [employer] Consensus recommends follow up testing of positive sera with both CO- 3 and MPO-ANCA enzyme immunoassays. As m any as 5% serum samples are positive only by EIA. Ref. AM J Clin Pathol 1999;111:507-513. Anca-Atypical Laboratory test result [facility] ([facility]) The atypical pANCA pattern has been obse rved in a significant percentage of patients with ulcerative colitis, primary sclerosing cholangitis and autoimmune hepatitis. Cytoplasmic Neutrop AB Anca-C Laboratory test result [facility] ([facility]) ID Date Data Source [id number] 03/13/2020 11:31:00 AM EDT [facility] Name Value Range Interpretation Code Description Data Amber rce(s) Supporting Document(s) Kufho-3-Cacpdbxp % 5.2 % 2.9-4.9 [facility] ([facility]) Albumin % 53.1 % 55.8-66.1 [facility] ([place] [facility]) Uqlkd-1-Ekuhyzgfx % 14.0 % 7.1-11.8 [facility] ([facility]) Koes-5-Fndzyftpc % 7.2 % 4.7-7.2 [facility] ([facility]) Fttc-0-Hhygdhhkg % 6.6 % 3.2-6.5 [facility] ([facility]) Gamma Globulin % 13.9 % 11.1-18.8 [facility] ([facility]) Nbaxp-2-Kmvnuefwu 0.97 GM/DL 0.42-0.99 [facility] ([facility]) Knqlz-6-Lkfewkkgf 0.36 GM/DL 0.17-0.41 [facility] ([facility]) Albumin 3.66 GM/DL 3.29-5.55 [facility] [facility] Vmcj-8-Qdqbwbdpx 0.50 GM/DL 0.28-0.60 [facility] ([facility]) Gamma Globulins 0.96 GM/DL 0.65-1.58 [facility] ([facility]) Cpmm-9-Bmgvoolmi 0.46 GM/DL 0.19-0.55 [facility] ([facility]) Total Protein 6.9 GM/DL 6.4-8.2 [facility] ([facility]) Spep Interpretation Laboratory test result [facility] ([facility]) NO M-SPIKE(S)NOTED. Laboratory test finding (navigational concept) Laboratory test result [facility] ([facility]) REV'D BY Samaria SENIORONG ID Date Data Source [id number] 03/13/2020 11:31:00 AM EDT [facility] ([facility]) Name Value Range Interpretation Code Description Data Amber rce(s) Supporting Document(s) Phospholipid phosphorus [Mass/volume] in Serum 151 mg/dL 150-250 [facility] ([facility]) Results for this test are for research p urposes only by the assay's hazardous materials waste technician. The performance characteristics of this product have not been established. Results should not be used as a diagnostic procedure without confirmation of the diagnosis by another medically established diagnostic product or procedure. Performed at: [address], [place], [place] [address] 61 Nitroglycerin Supervisor: Trevin Hardin MD, Phone: [phone] ID Date Data Source [id number] 02/12/2020 12:00:00 AM EDT [facility] Patient Name: MAHESH [id number] [facility] Date [facility] : 1945[facility] [place] [address] Date of Exam: 02/12/2020#: Fax: [phone] EXAM: MRI PELVIS WITHOUT CONTRASTCLINICAL INFORMATION: Bilateral hip pain.There are no prior pelvic MRI's for comparison.3T multiplanar MRI imaging of the pelvis was obtained using varioussequences.The femoral heads are spherical in shape and symmetric in appearance.There is xtig-pc-jfdkucqt rather symmetric appearing hip joint spacenarrowing. No abnormal focal chondral or subchondral signal is seen in thefemoral or acetabular component of either hip. There is no hip jointeffusion. There is givs-xy-ymfazbza T2 hypersignal seen in thetrochanteric tendinobursal region of each hip. The signal and morphologythroughout the imaged musculature is within normal limits. There is noevidence of a mass or mass effect. The sacroiliac joints are within normallimits. The cortical and marrow signal seen throughout the imaged osseouspelvis is within normal limits.IMPRESSION:1. Cmyq-lj-ytvpoimt bilateral hip degenerative changes.2. Tkxr-gk-lprmitmv bilateral trochanteric tendinobursitis.Accredited by the [employer] in MR.ANGELIC Almaguer/Zoran hernandez for referring MAHESH AQUINO to our office. Electronically Signed - JASSON BETTS DO 02/12/20 17:50 Name Value Range Interpretation Code Description Data Amber rce(s) Supporting Document(s) ID Date Data Source [id number] 02/01/2020 09:00:00 PM EDT [facility] ([facility]) Name Value Range Interpretation Code Description Data Amber rce(s) Supporting Document(s) Prothrombin Time 13.2 s 11.8-14.0 [facility] ([facility]) Inr 0.99 [facility] ([place] [facility]) THERAPUTIC HUMAN INR VALUES INDICATIONS NORMAL RANGES PROPHYLAXIS/TREATMENT OF: VENOUS THROMBOSIS 2.0-3.0 PULMONARY EMBOLISM 2.0-3.0 PREVENTION OF SYSTEMIC EMBOLISM FROM: TISSUE HEART VALVES 2.0-3.0 ACUTE MYOCARDIAL INFARCTION 2.0-3.0 VALVULAR HEART DISEASE 2.0-3.0 ATRIAL FIBRILLATION 2.0-3.0 MECHANICAL VALVES(HIGH RISK) 2.5-3.5 RECURRENT MYOCARDIAL INFARCTION 2.5-3.5 Partial Thromboplastin Time 30.2 s 25.0-38.4 [facility] ([facility]) ID Date Data Source [id number] 02/01/2020 08:40:00 PM EDT [facility] ([facility]) Name Value Range Interpretation Code Description Data Amber rce(s) Supporting Document(s) Troponin I.cardiac [Mass/volume] in Serum or Plasma Laboratory test result [facility] ([facility]) <content>Troponin I Reference Interval f or Siemens [place] LOCI:</content>
<content></content>
<content>99th Percentile= 0.00-0.045 ng/ml</content>
<content></content>
[...] or Plasm a 80 U/L 73-393 [facility] ([facility]) Thyrotropin [Units/volume] in Serum or Plasma by Detec tion limit <= 0.05 mIU/L 0.753 uIU/ML 0.358-3.740 [facility] ([facility] ) Thyroxine (T4) free [Mass/volume] in Serum or Plasma 0.90 ng/dL 0.76- 1.46 [facility] ([facility]) ID Date Data Source [id number] 02/01/2020 08:40:00 PM EDT [facility] ([facility]) Name Value Range Interpretation Code Description Data Amber rce(s) Supporting Document(s) Glucose, Fasting 103 mg/dL 70-100 [facility] ([facility]) Blood Urea Nitrogen 10 mg/dL 7-18 [facility] ([facility]) Creatinine For GFR 1.34 mg/dL 0.55-1.30 [facility] Glomerular Filtration Rate 41.3 [facility] ([facility]) <content>Units are mL/min/1.73 m2</content>
<content></content>
<content>Chronic Kidney Disease Staging per NKF:</content>
<content></content>
<content>Stage I & II GFR >=60 Normal to Mildly Decreased</content>
<content>Stage III GFR 30- 59 Moderately Decreased</content>
<content>Stage IV GFR 15-29 Severely Decreased</content>
<content>Stage V GFR <15 Very Little GFR Left</content>
<content>ESRD GFR <15 on POLICE CHIEF DEPUTY</content>
<content></content> Sodium Level 138 meq/L 136-145 [facility] ([facility]) Potassium Serum 4.4 meq/L 3.5-5.1 [facility] ([facility]) Chloride Level 107 meq/L 98-107 [facility] ([facility]) Carbon Dioxide Level 27 meq/L 21-32 [facility] ([facility]) Anion Gap 4 meq/L 8-16 [facility] ([facility]) Calcium Level 8.5 mg/dL 8.8-10.2 [facility] ([facility]) ID Date Data Source [id number] 02/01/2020 08:40:00 PM EDT [facility] Name Value Range Interpretation Code Description Data Amber rce(s) Supporting Document(s) Ast/Sgot 11 U/L 7-37 [facility] ([facility]) Alt/SGPT 11 U/L 12-78 [facility] ([facility]) Alkaline Phosphatase 101 U/L 45-117 [facility] ([facility]) Bilirubin,Total 0.1 mg/dL 0.2-1.0 [facility] ([facility]) Bilirubin,Direct Laboratory test result 0.0-0.2 [facility] ([facility]) Total Protein 7.0 GM/DL 6.4-8.2 [facility] ([facility]) Albumin 3.0 GM/DL 3.2-5.2 [facility] ([facility]) Albumin/Globulin Ratio 0.8 1.2-2.2 [facility] ([facility]) ID Date Data Source [id number] 02/01/2020 08:40:00 PM EDT [facility] ([facility]) Name Value Range Interpretation Code Description Data Amber rce(s) Supporting Document(s) CPK Creatine Phosphokinase 60 U/L 26-192 [facility] ([facility]) CK-MB Value Mass Laboratory test result [facility] ([facility]) MB/CK Relative Index 1.67 [facility] ([facility]) <content>DIAGNOSIS CRITERIA</content>
<content>MMB ng/ml Relative Index (RI)</content>
<content>NON-AMI < or = 5 N/A</content>
<content>BLANC ZONE > 5 < or = 4</content>
<content>AMI > 5 > 4</content>
<content></content> ID Date Data Source [id number] 02/01/2020 08:40:00 PM EDT [facility] ([facility]) Name Value Range Interpretation Code Description Data Amber rce(s) Supporting Document(s) White Blood Count 9.8 10 4.0-10.0 [facility] ([facility]) Red Blood Count 3.59 10 4.00-5.40 [facility] ([facility]) Hematocrit 33.1 % 36.0-47.0 [facility] [facility] Hemoglobin 10.0 g/dL 12.0-15.5 [facility] ([place] [facility]) Mean Corpuscular Volume 92.2 fl 80.0-96.0 [facility] ([facility]) Red Cell Distribution Width 15.9 % 11.5-14.5 [facility] ([facility]) Mean Corpuscular HGB Conc 30.2 g/dL 32.0-36.5 [facility] ([facility]) Mean Corpuscular Hemoglobin 27.9 pg 27.0-33.0 [facility] ([facility]) Platelet Count, Automated 427 10 150-450 [facility] ([facility]) Neutrophils % 56.1 % 36.0-66.0 [facility] ([facility]) Lymph % 28.3 % 24.0-44.0 [facility] [facility]) Eos % 5.8 % 0.0-3.0 [facility]) Edgar % 8.8 % 0.0-5.0 [facility]) Baso % 0.7 % 0.0-1.0 [facility] ([facility]) Immature Granulocyte % 0.3 % 0-3.0 [facility] ([facility]) Nucleated Red Blood Cell % 0.0 % 0-0 [facility] ([facility]) Neutrophils # 5.5 10 1.5-8.5 [facility] ([facility]) Eos # 0.6 10 0.0-0.5 [facility] [facility] Lymph # 2.8 10 1.5-5.0 [facility] [facility] Edgar # 0.9 10 0.0-0.8 [facility] ([facility]) Baso # 0.1 10 0.0-0.2 [facility] ([facility]) ID Date Data Source [id number] 01/24/2020 01:00:00 PM EDT [facility] ([facility]) Name Value Range Interpretation Code Description Data Amber rce(s) Supporting Document(s) C reactive protein [Mass/volume] in Serum or Plasma by High sensitivity method Laboratory test result [facility] ([facility]) ID Date Data Source [id number] 01/24/2020 12:59:00 PM EDT [facility] ([facility]) Name Value Range Interpretation Code Description Data Amber rce(s) Supporting Document(s) Erythrocyte sedimentation rate by Westergren method 54 mm/hr 0-15 [facility] ([facility]) ID Date Data Source [id number] 12/31/2019 01:24:00 PM EDT [facility] ([facility]) Name Value Range Interpretation Code Description Data Amber rce(s) Supporting Document(s) Laboratory test finding (navigational concept) 122 mg/dL 70-105 [facility] ([facility]) Laboratory test finding (navigational concept) 31.0 % 38.0-51.0 [facility] ([facility]) Laboratory test finding (navigational concept) 3.8 meq/L 3.5-5.1 [facility] ([facility]) Laboratory test finding (navigational concept) 4.6 mg/dL 4.5-5.3 [facility] ([facility]) Laboratory test finding (navigational concept) 138 meq/L 136-145 [facility] ([facility]) Laboratory test finding (navigational concept) 9 mg/dL 8-26 [facility] ([facility]) Laboratory test finding (navigational concept) 20.0 MM/L 23.0-27.0 [facility] ([facility]) Laboratory test finding (navigational concept) 104 meq/L 98-109 [facility] ([facility]) Laboratory test finding (navigational concept) 1.3 mg/dL 0.6-1.3 [facility] ([facility]) ID Date Data Source [id number] 12/31/2019 01:22:00 PM EDT [facility] ([facility]) Name Value Range Interpretation Code Description Data Amber rce(s) Supporting Document(s) White Blood Count 13.4 10 4.0-10.0 [facility] ([facility]) Red Blood Count 3.12 10 4.00-5.40 [facility] ([facility]) Hematocrit 28.8 % 36.0-47.0 [facility] [facility] Hemoglobin 8.9 g/dL 12.0-15.5 [facility] ([facility]) Mean Corpuscular Volume 92.3 fl 80.0-96.0 [facility] ([facility]) Mean Corpuscular HGB Conc 30.9 g/dL 32.0-36.5 [facility] NT ([facility]) Mean Corpuscular Hemoglobin 28.5 pg 27.0-33.0 [facility] ([facility]) Red Cell Distribution Width 17.3 % 11.5-14.5 [facility] ([facility]) Neutrophils % 71.0 % 36.0-66.0 [facility] ([facility]) Platelet Count, Automated 449 10 150-450 [facility] NT ([facility]) Edgar % 9.4 % 0.0-5.0 [facility] [facility]) Eos % 3.4 % 0.0-3.0 [facility]) Lymph % 15.3 % 24.0-44.0 [facility] ([facility]) Baso % 0.5 % 0.0-1.0 [facility] [facility] Immature Granulocyte % 0.4 % 0-3.0 [facility] ([facility]) Nucleated Red Blood Cell % 0.0 % 0-0 [facility] ([facility]) Neutrophils # 9.5 10 1.5-8.5 [facility] ([facility]) Lymph # 2.0 10 1.5-5.0 [facility] [facility] Edgar # 1.3 10 0.0-0.8 [facility] [facility] Eos # 0.5 10 0.0-0.5 [facility] ([facility]) Baso # 0.1 10 0.0-0.2 [facility] ([facility]) ID Date Data Source [id number] 12/31/2019 01:17:00 PM EDT [facility] ([facility]) Name Value Range Interpretation Code Description Data Amber rce(s) Supporting Document(s) Laboratory test finding (navigational concept) 0.00 ng/mL 0.00-0.08 [facility] ([facility]) ID Date Data Source [id number] 12/31/2019 01:17:00 PM EDT [facility] ([facility]) Name Value Range Interpretation Code Description Data Amber rce(s) Supporting Document(s) Troponin I.cardiac [Mass/volume] in Serum or Plasma Laboratory test result [facility] ([facility]) Laboratory test finding (navigational concept) 0.00 ng/mL 0.00-0.08 [facility] ([facility]) ID Date Data Source [id number] 12/19/2019 02:28:00 PM EDT [facility] ([facility]) Name Value Range Interpretation Code Description Data Amber rce(s) Supporting Document(s) Cholesterol [Mass/volume] in Serum or Plasma 109 mg/dL 131-200 [facility] ([facility]) Cholesterol in HDL [Mass/volume] in Serum or Plasma 52 mg/dL 35-60 [facility] ([facility]) Triglyceride [Mass/volume] in Serum or Plasma 93 mg/dL 30-150 [facility] ([facility]) Cholesterol in LDL [Mass/volume] in Serum or Plasma by calcu lation 38 CALC 50-159 [facility] ([facility]) ID Date Data Source [id number] 12/19/2019 02:28:00 PM EDT [facility] ([facility]) Name Value Range Interpretation Code Description Data Amber rce(s) Supporting Document(s) Urea nitrogen [Mass/volume] in Serum or Plasma 11 mg/dL 7-18 [facility] ([facility]) Creatinine 1.5 mg/dL 0.6-1.3 [facility] NOTE: RESULT VERIFIED. Glucose [Mass/volume] in Serum or Plasma 100 mg/dL 74-99 [facility] ([facility]) 100-125 mg/dL PRE-DIABETES/FASTING >126 mg/dL DIABETES/FASTING Sodium [Moles/volume] in Serum or Plasma 138 meq/L 136-145 [facility] ([facility]) Chloride [Moles/volume] in Serum or Plasma 104 meq/L 98-107 [facility] ([facility]) Potassium [Moles/volume] in Serum or Plasma 4.5 meq/L 3.5-5.1 [facility] ([facility]) Calcium [Mass/volume] in Serum or Plasma 8.0 mg/dL 8.5-10.1 [facility] ([facility]) NOTE: RESULT VERIFIED. Alkaline phosphatase isoenzyme [Units/volume] in Serum or Pl asma 96 mg/dL 46-116 [facility] ([facility]) Carbon dioxide, total [Moles/volume] in Serum or Plasma 27 meq/L 21 -32 [facility] ([facility]) Aspartate aminotransferase [Enzymatic activity/volume] in Serum or Plasma 10 U/L 15-37 [facility] ([facility] ) Alanine aminotransferase [Enzymatic activity/volume] in Seru m or Plasma 14 U/L 12-78 [facility] ([facility]) Total Bilirubin 0.2 mg/dL 0.2-1.0 [facility] ([facility]) A/G Ratio 0.61 CALC 1.00-1.90 [facility] ([facility]) Albumin [Mass/volume] in Serum or Plasma 2.7 g/dL 3.4-5.0 [facility] ([facility]) NOTE: RESULT VERIFIED. Proteinase 3 Ab [Units/volume] in Serum 7.1 g/dL 6.4-8.2 [facility] Glomerular filtration rate/1.73 sq M pre dicted among non-blacks [Volume Rate/Area] in Serum or Plasma by Creatinine-based formula (MDRD) 34 mL/min [facility] ([facility]) Glomerular filtration rate/1.73 sq M pre dicted among blacks [Volume Rate/Area] in Serum or Plasma by Creatinine-based formula (MDRD) 41 mL/min [facility] <content>CHRONIC KIDNEY DISEASE STAGING PER NKF</content>
<content></content>
<content>STAGE I & II GFR >= 60 NORMAL TO MILDLY DECREASED</content>
<content>STAGE III GFR 30-59 MODERATELY DECREASED</content>
<content>STAGE IV GFR 15-29 SEVERELY DECREASED</content>
<content>STAGE V GFR <15 VERY LITTLE GFR LEFT</content>
<content>ESRD GFR <15 ON POLICE CHIEF DEPUTY</content>
<content></content> ID Date Data Source [id number] 12/19/2019 02:28:00 PM EDT [facility] ([facility]) Name Value Range Interpretation Code Description Data Amber rce(s) Supporting Document(s) Erythrocyte sedimentation rate by Westergren method 55 mm/hr 0-15 [facility] ID Date Data Source [id number] 12/19/2019 02:28:00 PM EDT [facility] Name Value Range Interpretation Code Description Data Amebr rce(s) Supporting Document(s) Leukocytes [#/volume] in Blood by Automated count 10.8 x10*3/UL 4.1-1 0.9 [facility] ([facility]) Erythrocytes [#/volume] in Blood by Automated count 3.41 x10*6/UL 4.2 0-6.30 [facility] ([facility]) Hemoglobin [Mass/volume] in Blood 9.7 g/dL 12.0-18.0 [facility] NOTE: RESULT VERIFIED. MCV 88.7 fL 80.0-97.0 [facility] ([facility]) MCH 28.6 pg 26.0-32.0 [facility] ([facility]) Hematocrit [Volume Fraction] of Blood by Automated count 30.3 % 3 7.0-51.0 [facility] Erythrocyte distribution width [Ratio] by Automated count 17.2 % 11.6-13.7 [facility] ([facility]) Platelets [#/volume] in Blood by Automated count 530 x10*3/UL 140-440 [facility] MCHC 32.2 g/dL 31.0-38.0 [facility] ([facility]) MPV 7.0 FL 7.8-11.0 [facility] ([facility]) Mid % 7.6 % 1.7-9.3 [facility] ([facility]) Lymph % 21.6 % 10.0-58.5 [facility] ([facility]) Mid # 0.8 x10*3/UL 0.1-0.6 [facility] ([facility]) Neut % 70.8 % 37.0-92.0 [facility] ([facility]) Lymph # 2.3 x10*3/UL 0.6-4.1 [facility] ([facility]) Neut # 7.7 x10*3/UL 2.0-7.8 [facility] ([facility]) ID Date Data Source [id number] 10/22/2019 02:22:00 PM EDT [facility] Name Value Range Interpretation Code Description Data Amber rce(s) Supporting Document(s) Cyclic citrullinated peptide IgG Ab [Units/volume] in Serum or Plasma 9 units 0-19 [facility] <content>Negative <20</con tent>
<content>Weak positive 20 - 39</content>
<content>Moderate positive 40 - 59</content>
<content>Strong positive >59</content>
<content>Performed at: [facility]</content>
<content>[address], [place] [id number]</content>
<content>Nitroglycerin Supervisor: Trevin Hardin MD, Phone: [phone]</content>
<content></content> ID Date Data Source [id number] 10/22/2019 02:22:00 PM EDT [facility] ([facility]) Name Value Range Interpretation Code Description Data Amber rce(s) Supporting Document(s) Glucose [Mass/volume] in Serum or Plasma 131 mg/dL 74-99 [facility] ([facility]) 100-125 mg/dL PRE-DIABETES/FASTING >126 mg/dL DIABETES/FASTING Creatinine 1.9 mg/dL 0.6-1.3 [facility] Urea nitrogen [Mass/volume] in Serum or Plasma 17 mg/dL 7-18 [facility] ([facility]) Chloride [Moles/volume] in Serum or Plasma 103 meq/L 98-107 [facility] ([facility]) Carbon dioxide, total [Moles/volume] in Serum or Plasma 25 meq/L 21 -32 [facility] ([facility]) Sodium [Moles/volume] in Serum or Plasma 139 meq/L 136-145 [facility] ([facility]) Potassium [Moles/volume] in Serum or Plasma 3.7 meq/L 3.5-5.1 [facility] ([facility]) Glomerular filtration rate/1.73 sq M pre dicted among blacks [Volume Rate/Area] in Serum or Plasma by Creatinine-based formula (MDRD) 31 mL/min [facility] ([facility]) <content>CHRONIC KIDNEY DISEASE STAGING PER NKF</content>
<content></content>
<content>STAGE I & II GFR >= 60 NORMAL TO MILDLY DECREASED</content>
<content>STAGE III GFR 30-59 MODERATELY DECREASED</content>
<content>STAGE IV GFR 15-29 SEVERELY DECREASED</content>
<content>STAGE V GFR <15 VERY LITTLE GFR LEFT</content>
<content>ESRD GFR <15 ON POLICE CHIEF DEPUTY</content>
<content></content> Calcium [Mass/volume] in Serum or Plasma 8.3 mg/dL 8.5-10.1 [facility] Glomerular filtration rate/1.73 sq M pre dicted among non-blacks [Volume Rate/Area] in Serum or Plasma by Creatinine-based formula (MDRD) 26 mL/min [facility] ID Date Data Source [id number] 10/22/2019 02:22:00 PM EDT [facility] ([facility]) Name Value Range Interpretation Code Description Data Amber rce(s) Supporting Document(s) Erythrocyte sedimentation rate by Westergren method 55 mm/hr 0-15 [facility] ID Date Data Source [id number] 10/22/2019 02:22:00 PM EDT [facility] Name Value Range Interpretation Code Description Data Amber rce(s) Supporting Document(s) Erythrocytes [#/volume] in Blood by Automated count 3.58 x10*6/UL 4.2 0-6.30 [facility] ([facility]) Leukocytes [#/volume] in Blood by Automated count 14.0 x10*3/UL 4.1-1 0.9 [facility] ([facility]) NOTE: RESULT VERIFIED. MCH 28.5 pg 26.0-32.0 [facility] [facility]) Hematocrit [Volume Fraction] of Blood by Automated count 30.5 % 3 7.0-51.0 [facility] ([facility]) Hemoglobin [Mass/volume] in Blood 10.2 g/dL 12.0-18.0 [facility] ([facility]) MCV 85.0 fL 80.0-97.0 [facility] ([facility]) MCHC 33.5 g/dL 31.0-38.0 [facility] ([facility]) Platelets [#/volume] in Blood by Automated count 551 x10*3/UL 140-440 [facility] ([facility]) Erythrocyte distribution width [Ratio] by Automated count 15.5 % 11.6-13.7 [facility] ([facility]) Lymph % 17.5 % 10.0-58.5 [facility] [facility] Neut % 77.4 % 37.0-92.0 [facility] [facility] MPV 7.6 FL 7.8-11.0 [facility] [facility] Mid % 5.1 % 1.7-9.3 [facility] [facility] Neut # 10.9 x10*3/UL 2.0-7.8 [facility] ([facility]) Lymph # 2.4 x10*3/UL 0.6-4.1 [facility] ([facility]) Mid # 0.7 x10*3/UL 0.1-0.6 [facility] ([facility]) ID Date Data Source [id number] 09/17/2019 02:25:00 PM EDT [facility] ([facility]) Name Value Range Interpretation Code Description Data Amber rce(s) Supporting Document(s) Urea nitrogen [Mass/volume] in Serum or Plasma 16 mg/dL 7-18 [facility] ([facility]) Sodium [Moles/volume] in Serum or Plasma 138 meq/L 136-145 [facility] ([facility]) Creatinine 1.8 mg/dL 0.6-1.3 [facility] ([facility]) Glucose [Mass/volume] in Serum or Plasma 123 mg/dL 74-99 [facility] ([facility]) 100-125 mg/dL PRE-DIABETES/FASTING >126 mg/dL DIABETES/FASTING Carbon dioxide, total [Moles/volume] in Serum or Plasma 26 meq/L 21 -32 [facility] ([facility]) Potassium [Moles/volume] in Serum or Plasma 3.6 meq/L 3.5-5.1 [facility] ([facility]) Calcium [Mass/volume] in Serum or Plasma 8.3 mg/dL 8.5-10.1 [facility] ([facility]) Chloride [Moles/volume] in Serum or Plasma 103 meq/L 98-107 [facility] ([facility]) Aspartate aminotransferase [Enzymatic activity/volume] in Se rum or Plasma 8 U/L 15-37 [facility] ([facility]) Alanine aminotransferase [Enzymatic activity/volume] in Seru m or Plasma 11 U/L 12-78 [facility] ([facility]) Alkaline phosphatase isoenzyme [Units/volume] in Serum or Pl asma 96 mg/dL 46-116 [facility] ([facility]) Total Bilirubin 0.2 mg/dL 0.2-1.0 [facility] ([facility]) Albumin [Mass/volume] in Serum or Plasma 2.9 g/dL 3.4-5.0 [facility] ([facility]) Proteinase 3 Ab [Units/volume] in Serum 7.9 g/dL 6.4-8.2 [facility] ([facility]) A/G Ratio 0.58 CALC 1.00-1.90 [facility]) Glomerular filtration rate/1.73 sq M pre dicted among non-blacks [Volume Rate/Area] in Serum or Plasma by Creatinine-based formula (MDRD) 28 mL/min [facility] ([facility]) Glomerular filtration rate/1.73 sq M pre dicted among blacks [Volume Rate/Area] in Serum or Plasma by Creatinine-based formula (MDRD) 33 mL/min [facility] ([facility]) <content>CHRONIC KIDNEY DISEASE STAGING PER NKF</content>
<content></content>
<content>STAGE I & II GFR >= 60 NORMAL TO MILDLY DECREASED</content>
<content>STAGE III GFR 30-59 MODERATELY DECREASED</content>
<content>STAGE IV GFR 15-29 SEVERELY DECREASED</content>
<content>STAGE V GFR <15 VERY LITTLE GFR LEFT</content>
<content>ESRD GFR <15 ON POLICE CHIEF DEPUTY</content>
<content></content> ID Date Data Source [id number] 09/17/2019 02:25:00 PM EDT [facility] ([facility]) Name Value Range Interpretation Code Description Data Amber rce(s) Supporting Document(s) Creatine kinase [Enzymatic activity/volume] in Serum or Plasma 40 U /L 26-192 [facility] ([facility]) ID Date Data Source [id number] 09/17/2019 02:24:00 PM EDT [facility] ([facility]) Name Value Range Interpretation Code Description Data Amber rce(s) Supporting Document(s) Myoglobin Screen, Urine Laboratory [facility] ID Date Data Source [id number] 09/17/2019 02:24:00 PM EDT [facility] ([facility]) Name Value Range Interpretation Code Description Data Amber rce(s) Supporting Document(s) Color, Urine Laboratory test result [facility] ([facility]) Appearance, Urine Laboratory [facility] Specific [place] Urine Auto 1.014 1.002-1.035 [facility] [facility] Protein, Urine Auto Laboratory test result [facility] PH,Urine 5.0 units 5.0-9.0 [facility] ([facility] [facility] Glucose, Urine (Ua) Auto Laboratory test result [facility] ([facility]) Ketone, Urine Auto Laboratory test result [facility] ([facility]) Bilirubin, Urine Auto Laboratory test result [facility] Urobilinogen, Urine Auto 0.2 mg/dL 0.0-2.0 MEDEN T ([facility] Leukocyte Esterase, Urine Auto Laboratory test result MEDENT ([facility]) WBC, Urine Auto 7 /HPF 0-3 MED[facility] ([facility]) Blood, Urine Blood Laboratory test result [facility] Nitrite, Urine Auto Laboratory test result [facility]ENT ([facility]) Bacteria, Urine Auto Laboratory test result [facility] Squamous Epithelial Cell Ur AU 2 /HPF 0-6 [facility] ([facility] RBC, Urine Auto 4 /HPF 0-3 MEDENT ([facility]) Transitional Epithelial Auto Laboratory test result [facility] Hyaline Cast, Urine Auto 0 /LPF 0-1 MEDEN T ([facility] Mucus, Urine Laboratory test result MEDE NT ([facility]) ID Date Data Source [id number] 09/06/2019 02:22:00 PM EST [facility]) Name Value Range Interpretation Code Description Data Amber rce(s) Supporting Document(s) PTT Lupus Type Anticoag Screen 1.1 0-1.2 [facility] ([facility]) RESULT IS LESS THAN 1.2, NO [...] a specific inhibitor. ID Date Data Source [id number] 09/06/2019 02:22:00 PM EST MEDENT ([facility]) Name Value Range Interpretation Code Description Data Amber rce(s) Supporting Document(s) Cyclic citrullinated peptide IgG Ab [Units/volume] in Serum or Plasma 9 units 0-19 [facility] ([facility]) <content>Negative <20</con tent>
<content>Weak positive 20 - 39</content>
<content>Moderate positive 40 - 59</content>
<content>Strong positive >59</content>
<content>Performed at: [facility]</content>
<content>[address] [place] [id number]</content>
<content>Nitroglycerin Supervisor: Trevin Hardin MD, Phone: [phone]</content>
<content></content> ID Date Data Source [id number] 09/06/2019 02:18:00 PM EST MEDENT ([facility]) Name Value Range Interpretation Code Description Data Amber rce(s) Supporting Document(s) Glucose [Mass/volume] in Serum or Plasma 130 mg/dL 74-99 [facility] ([facility]) 100-125 mg/dL PRE-DIABETES/FASTING >126 mg/dL DIABETES/FASTING Urea nitrogen [Mass/volume] in Serum or Plasma 18 mg/dL 7-18 [facility] ([facility]) Potassium [Moles/volume] in Serum or Plasma 3.8 meq/L 3.5-5.1 [facility] ([facility]) Creatinine 2.0 mg/dL 0.6-1.3 [facility] ([facility]) Sodium [Moles/volume] in Serum or Plasma 138 meq/L 136-145 [facility] ([facility]) Carbon dioxide, total [Moles/volume] in Serum or Plasma 23 meq/L 21 -32 [facility] ([facility]) Chloride [Moles/volume] in Serum or Plasma 103 meq/L 98-107 [facility] ([facility]) Calcium [Mass/volume] in Serum or Plasma 8.4 mg/dL 8.5-10.1 [facility] ([facility]) Glomerular filtration rate/1.73 sq M pre dicted among non-blacks [Volume Rate/Area] in Serum or Plasma by Creatinine-based formula (MDRD) 24 mL/min MEDENT ([facility]) Glomerular filtration rate/1.73 sq M pre dicted among blacks [Volume Rate/Area] in Serum or Plasma by Creatinine-based formula (MDRD) 30 mL/min [facility]ENT ([facility]) <content>CHRONIC KIDNEY DISEASE STAGING PER NKF</content>
<content></content>
<content>STAGE I & II GFR >= 60 NORMAL TO MILDLY DECREASED</content>
<content>STAGE III GFR 30-59 MODERATELY DECREASED</content>
<content>STAGE IV GFR 15-29 SEVERELY DECREASED</content>
<content>STAGE V GFR <15 VERY LITTLE GFR LEFT</content>
<content>ESRD GFR <15 ON POLICE CHIEF DEPUTY</content>
<content></content> ID Date Data Source [id number] 09/06/2019 02:18:00 PM EST MEDENT ([facility]) Name Value Range Interpretation Code Description Data Amber rce(s) Supporting Document(s) Leukocytes [#/volume] in Blood by Automated count 10.4 x10*3/UL 4.1-1 0.9 [facility] ([facility]) Erythrocytes [#/volume] in Blood by Automated count 3.79 x10*6/UL 4.2 0-6.30 [facility] ([facility]) Hemoglobin [Mass/volume] in Blood 10.8 g/dL 12.0-18.0 [facility] ([facility]) Hematocrit [Volume Fraction] of Blood by Automated count 33.2 % 3 7.0-51.0 [facility] ([facility]) MCV 87.6 fL 80.0-97.0 [facility] ([place] [facility]) MCHC 32.6 g/dL 31.0-38.0 [facility] ([place] [facility]) MCH 28.5 pg 26.0-32.0 MEDENT ([facility]) Platelets [#/volume] in Blood by Automated count 455 x10*3/UL 140-440 [facility] ([facility]) Erythrocyte distribution width [Ratio] by Automated count 15.4 % 11.6-13.7 [facility] ([facility]) MPV 7.5 FL 7.8-11.0 [facility] ([place] [facility]) Lymph % 17.2 % 10.0-58.5 [facility] ([place] [facility]) Mid % 6.2 % 1.7-9.3 MED[facility] ([facility]) Mid # 0.8 x10*3/UL 0.1-0.6 [facility] ([facility]) Neut # 7.9 x10*3/UL 2.0-7.8 [facility] ([facility]) Lymph # 1.7 x10*3/UL 0.6-4.1 [facility] ([facility]) Neut % 76.6 % 37.0-92.0 [facility] ([place] [facility]) ID Date Data Source [id number] 09/02/2019 12:48:00 PM EST MEDENT ([facility]) Name Value Range Interpretation Code Description Data Amber rce(s) Supporting Document(s) Antinuclear Antibodies Laboratory test result [facility] Performed at: [facility] - [facility] [address] [id number] Nitroglycerin Supervisor: Jillian Miner MD, Phone: [phone] ID Date Data Source [id number] 09/02/2019 12:48:00 PM EST [facility] Name Value Range Interpretation Code Description Data Amber rce(s) Supporting Document(s) Rheumatoid Factor Quant 48.1 IU/ml MED T ([facility] <content>note:<nlbl:demographic_changed></content>
<content>note:<nlbl:demog raphic_changed></content>
<content>note:<nlbl:demographic_changed></content>
<content></content> Erythrocyte sedimentation rate by Westergren method 65 mm/hr 0-30 [facility] Bacteria identified in Blood by Culture Laboratory test result [facility] ([facility]) No growth after 72 hours . [...] by High sensitivity method 4.23 mg/dL 0.00-0.30 [facility] <content>note:<nlbl:demographic_changed></content>
<content>note:<nlbl:demog raphic_changed></content>
<content>note:<nlbl:demographic_changed></content>
<content></content> ID Date Data Source [id number] 09/02/2019 12:48:00 PM EST [facility] ([facility]) Name Value Range Interpretation Code Description Data Amber rce(s) Supporting Document(s) CPK Creatine Phosphokinase 87 U/L 26-192 [facility] MB/CK Relative Index 1.95 [facility] <content>DIAGNOSIS CRITERIA</content>
<content>MMB ng/ml Relative Index (RI)</content>
<content>NON-AMI < or = 5 N/A</content>
<content>BLANC ZONE > 5 < or = 4</content>
<content>AMI > 5 > 4</content>
<content></content> CK-MB Value Mass 1.7 ng/mL [facility] Troponin I Laboratory test result [facility] ([facility]) <content>Troponin I Reference Interval f or Siemens [place] LOCI:</content>
<content></content>
<content>99th Percentile= 0.00-0.045 ng/ml</content>
<content></content>
<content>Risk Stratification:</content>
<content><= 0.10 ng/ml Decreased Risk for Adverse Clinical</content>
<content>Events.</content>
<content>0.10-1.50 ng/ml Increased Risk for Adverse Clinical</content>
<content>Events. Evaluation of additional</content>
<content>criterion and/or repeat testing in 2-6</content>
<content>hours is suggested to rule out myocardial</content>
<content>damage.</content>
<content>>= 1.50 ng/ml Indicative of Myocardial Injury.</content>
<content></content> ID Date Data Source [id number] 09/02/2019 12:48:00 PM EST [facility] ([facility]) Name Value Range Interpretation Code Description Data Amber rce(s) Supporting Document(s) Lactate [Mass/volume] in Serum or Plasma 1.6 mmol/L 0.4-2.0 [facility] ([facility]) <content>note:<nlbl:demographic_changed> </content>
<content>Y/N query for Sepsis Lactate Rule: Y</content>
<content></content> ID Date Data Source [id number] 09/02/2019 12:48:00 PM EST [facility] ([facility]) Name Value Range Interpretation Code Description Data Amber rce(s) Supporting Document(s) Glucose, Fasting 88 mg/dL 70-100 [facility] ([facility]) Blood Urea Nitrogen 15 mg/dL 7-18 [facility] ([facility]) Sodium Level 138 meq/L 136-145 [facility] ([facility]) Creatinine For GFR 1.66 mg/dL 0.55-1.30 [facility] ([facility]) Glomerular Filtration Rate 32.2 [facility] ([facility]) <content>Units are mL/min/1.73 m2</content>
<content></content>
<content>Chronic Kidney Disease Staging per NKF:</content>
<content></content>
<content>Stage I & II GFR >=60 Normal to Mildly Decreased</content>
<content>Stage III GFR 30- 59 Moderately Decreased</content>
<content>Stage IV GFR 15-29 Severely Decreased</content>
<content>Stage V GFR <15 Very Little GFR Left</content>
<content>ESRD GFR <15 on POLICE CHIEF DEPUTY</content>
<content></content> Carbon Dioxide Level 23 meq/L 21-32 [facility] Anion Gap 7 meq/L 8-16 [facility] ([place] [facility]) Potassium Serum 4.3 meq/L 3.5-5.1 [facility] ([facility]) Chloride Level 108 meq/L 98-107 [facility] ([facility]) Calcium Level 8.0 mg/dL 8.8-10.2 [facility] ([facility]) ID Date Data Source [id number] 09/02/2019 12:48:00 PM EST [facility] ([facility]) Name Value Range Interpretation Code Description Data Amber rce(s) Supporting Document(s) White Blood Count 12.6 10 4.0-10.0 [facility] Hematocrit 36.0 % 36.0-47.0 [facility] ([place] [facility] Red Blood Count 3.85 10 4.00-5.40 [facility] ([facility]) Hemoglobin 10.8 g/dL 12.0-15.5 [facility] ([place] [facility] Red Cell Distribution Width 16.1 % 11.5-14.5 ME DENT ([facility]) Mean Corpuscular HGB Conc 30.0 g/dL 32.0-36.5 MEDE NT ([facility]) Mean Corpuscular Hemoglobin 28.1 pg 27.0-33.0 ME [facility]ENT ([facility]) Mean Corpuscular Volume 93.5 fl 80.0-96.0 [facility] ([facility]) Lymph % 16.7 % 24.0-44.0 [facility] ([facility]) Platelet Count, Automated 481 10 150-450 MEDE NT ([facility]) Neutrophils % 64.1 % 36.0-66.0 [facility] ([facility]) Baso % 0.7 % 0.0-1.0 [facility] ([facility]) Eos % 12.8 % 0.0-3.0 [facility] ([facility]) Edgar % 5.2 % 0.0-5.0 [facility] ([facility]) Lymph # 2.1 10 1.5-5.0 [facility] ([facility]) Neutrophils # 8.1 10 1.5-8.5 [facility] ([facility]) Immature Granulocyte % 0.5 % 0-3.0 [facility] ([facility]) Nucleated Red Blood Cell % 0.0 % 0-0 MED E[facility] ([facility]) Eos # 1.6 10 0.0-0.5 [facility] ([facility]) Baso # 0.1 10 0.0-0.2 [facility] ([facility]) Edgar # 0.7 10 0.0-0.8 [facility] ([place] [facility]) ID Date Data Source [id number] 08/07/2019 10:04:30 PM EST [facility] Name Value Range Interpretation Code Description Data Amber rce(s) Supporting Document(s) &PDF [facility] IKQEKa1qLcSTFtIv95/DOSxxWAOkc3JhKTcjKHc9DBgqWDKeZ2GdmJjaLQPZMKTOJ58mPO6ZCCPMJCWe yKE [file] mGQG9lpDUgCQnRmyD2ick/6isYC/D0NB5McMOA6+SECURITY OPERATIONS SPECIALIST [file] Stripper [file] AgICAgICAgICAgICAgICAgICAgICAgICAgICAgICAgICAgICAgICAgICAgICAgICAgICAgICAgICAgIC AgICAgICAgICANCiAgICAgICAgICAgICAgICAgICAg ICAgICAgICAgICAgICAgICAgICAgICAgICAgICAgICAgICAgICAgICAgICAgICAgICAgICAgICAgICAg ICAgICAgICAgICAgICAgICAgICANCiAgICAgICAgICAgICAgICAgICAgICAgICAgICAgICAgICAgICAg ICAgICAgICAgICAgICAgICAgICAgICAgICAgICAgIC AgICAgICAgICAgICAgICAgICAgICAgICAgICAgICANCiAgICAgICAgICAgICAgICAgICAgICAgICAgIC AgICAgICAgICAgICAgICAgICAgICAgICAgICAgICAgICAgICAgICAgICAgICAgICAgICAgICAgICAgIC AgICAgICAgICAgICANCiAgICAgICAgICAgICAgICAg ICAgICAgICAgICAgICAgICAgICAgICAgICAgICAgICAgICAgICAgICAgICAgICAgICAgICAgICAgICAg ICAgICAgICAgICAgICAgICAgICAgICANCiAgICAgICAgICAgICAgICAgICAgICAgICAgICAgICAgICAg ICAgICAgICAgICAgICAgICAgICAgICAgICAgICAgIC AgICAgICAgICAgICAgICAgICAgICAgICAgICAgICAgICANCiAgICAgICAgICAgICAgICAgICAgICAgIC AgICAgICAgICAgICAgICAgICAgICAgICAgICAgICAgICAgICAgICAgICAgICAgICAgICAgICAgICAgIC AgICAgICAgICAgICAgICANCiAgICAgICAgICAgICAg ICAgICAgICAgICAgICAgICAgICAgICAgICAgICAgICAgICAgICAgICAgICAgICAgICAgICAgICAgICAg ICAgICAgICAgICAgICAgICAgICAgICAgICANCiAgICAgICAgICAgICAgICAgICAgICAgICAgICAgICAg ICAgICAgICAgICAgICAgICAgICAgICAgICAgICAgIC AgICAgICAgICAgICAgICAgICAgICAgICAgICAgICAgICAgICANCiAgICAgICAgICAgICAgICAgICAgIC AgICAgICAgICAgICAgICAgICAgICAgICAgICAgICAgICAgICAgICAgICAgICAgICAgICAgICAgICAgIC AgICAgICAgICAgICAgICAgICANCjw/aOBrP1jouKFm taN0Q9tuRl2LNl7TDA5da1FhMODlMZhhorLzFepUQcYoWUFtSefOSoe4XNdkBK9XaODkQ5IvL0QzWBwu AH6XFHMwETLjcIKgTYYmFLCnYyV5KBNtXKdaPW8IaQEvWJfrOXXuKCEeYcIpFNKqLS1SFHJsU131zsRr Ss8XAx0UApFeJM3gpp5DQjVbETCgUchOMoj4FFugZT 8XsJAxQ2SehHAxh3vOUaGhN8OSIDWwIAVlEz0YTATgElVyAHYlQDywTT0rTBPoPTTMbRgbgdM5OF7VGL 6kodXkTU0GGmRfVl1dAf0KGaSgT3XrS3DlVLWyADMHQNzqWQ0GTHWgKOK9CPQsRoGkKYIOHePsT51nZO 5CJ0Rvg57eRsM9OZVqZpQmLRsmFR55mPwjqxZsoEZt tUgoTC3ZSt4+EUlvilWcPdjSWvhlGIZIJdQsTiTRBjZxEYApZWYcAROsNiF2VpQgTp8UYZMjUIDpUBCc McXvKUHvLUAsNQkxXTXzOCm1CwYwXSTeGJXtRW4HOcMgZMPiSResBJBrMLUoWTZgph3BVJXdEFFxRJU4 HkXoRBVaFBKzJLytGGNvZLRuABX6XQWgLGFlXH0ETo LyEFNkTTT2TvZhQNEfHSQbjr0GSQFxYUJxFTM4QZOhJSGaVTGsLYutUUReTMQ1DZg5RRSdGZSwMF3ZGd BgLVWqCFP0WiWeUBScQDFbhc4HUKUcGKLtGzugLhHeEYEnMRGyJCtxHLRdZLB5HOEhQIHnMBHfGS7TVo EhGDFvKGh3AKDpSGHcRPAudy8WIKXbFEAcWLJ3EXWo YECuYLKkKAeeOXNpHNI8WyPnEADqKIUzEV1GPiVxUVPjMBDtFVqlUZAdWNOcza6BSWSbWLUwKdOsGfAn OSSwEVTlMUgvLZSwEFJvHvZ3LCKlZPSaNU4ANnErAMVgMBP8EQacLZHgRMKzhi8DKQSsAXWsBPZaKXFw TJCaGQKmBPtqBCLkEVH2XPg1YVLcAIRaOS4HFcWcMM RyUHYnFcTaXRUlJMTiou8PDQThDHZyNQAaULIwOXFmDGPhFLmtVSHzRIOcTZE1STLsOCYkUA6DOxWzTE LiRqTvAwxrWVQaACFavf9QGMOlEJQgYXE6BGGtJPHiMDJkUNehXXGoUDI5HEFwHBUyTQFmOP0KQwJzQM NqUXKhWSmfPNSwTNZmuu3MISQnKXO7YtZ9FRTiHHCw YAOfUXonQCZwKPm5MMH2ABCvZZLyWH1RPwZwADNbHCRrTVwzOQCaDOXgsh9GKOVcGSA3IqF4LUTvCOJq OIIlYNynJKNfYVt4WVRhGCUyYVVvIF4HZnQfTXQfZHzqJOacIKVgTFPfpm2ZrENxoFuxvk8BSIaKRh7I nQxcLNU0GSxiLp3rxTCmUgYqIAYSCn6HkvJtOXLpQJ NOULhvDJFrEMBmAcmiRhB1JJn1KjGnNZn5K9ZyKKAtXIJiTOIjKAJsEiZ8GWAwQ7D8GaiyFBpvWAC8AL nfBXW9PnToMMJcVpD8XkN+OK5jXSn+Mc4Zz7WabaC2mdUuVZl3TZX7CK3GPEIMB8TEWx== Procedure Social History Code Duration Value Status Description Data Source(s ) Smoking 07/13/2020 12:00:00 AM EST Current Smoker completed Curre nt Smoker eCW1 ([facility]) Smoking 06/24/2020 12:00:00 AM EST Current Smoker completed Curre nt Smoker eCW1 ([facility]) Alcohol intake 06/12/2020 12:00:00 AM EST Never completed [facility] Smoking 06/12/2020 12:00:00 AM EST Current every day smoker co mpleted Current every day smoker [facility] Smoking 06/04/2020 12:00:00 AM EST Current Smoker completed Curre nt Smoker eCW1 ([facility]) Smoking 06/04/2020 12:00:00 AM EST Current Smoker completed Curre nt Smoker eCW1 ([facility]) Smoking 06/04/2020 12:00:00 AM EST Current Smoker completed Curre nt Smoker eCW1 ([facility]) Smoking 05/19/2020 12:00:00 AM EST Current Smoker completed Curre nt Smoker eCW1 ([facility]) Smoking 05/19/2020 12:00:00 AM EST Current Smoker completed Curre nt Smoker eCW1 ([facility]) Smoking 05/05/2020 12:00:00 AM EST Current Smoker completed Curre nt Smoker eCW1 ([facility]) Smoking 05/05/2020 12:00:00 AM EST Current Smoker completed Curre nt Smoker eCW1 ([facility]) Smoking 01/21/2020 12:00:00 AM EDT Current Smoker completed Curre nt Smoker eCW1 ([facility]) Vital Signs ID Date Data Source [id number] Name Value Range Interpretation Code Description Data Source(s) Diastolic blood pressure 68 mm[Hg] 68 mm[Hg] eCW1 ([facility]) Systolic blood pressure 128 mm[Hg] 128 mm[Hg] e CW1 ([facility]) Body temperature 98.2 [degF] 98.2 [degF] eCW1 ( [facility]) Respiratory rate 18 /min 18 /min eCW1 ([facility]) Heart rate 76 /min 76 /min eCW1 ([facility]) Body mass index (BMI) [Ratio] 28.11 kg/m2 28.11 kg/m2 W1 ([facility]) Body height 64 [in_i] 64 [in_i] eCW1 ([facility]) Body weight 74.3 kg 74.3 kg eCW1 ([facility]) Body weight 163.8 [lb_av] 163.8 [lb_av] eCW1 ([facility]) Diastolic blood pressure 68 mm[Hg] 68 mm[Hg] eCW1 ([facility]) Systolic blood pressure 128 mm[Hg] 128 mm[Hg] e CW1 ([facility]) Body temperature 97.2 [degF] 97.2 [degF] eCW1 ( [facility]) Respiratory rate 20 /min 20 /min eCW1 ([facility]) Heart rate 105 /min 105 /min eCW1 ([facility]) Body mass index (BMI) [Ratio] 27.94 kg/m2 27.94 kg/m2 eCW1 ([facility]) Body height 64 [in_i] 64 [in_i] eCW1 ([facility]) Body weight 73.8 kg 73.8 kg eCW1 ([facility]) Body weight 162.8 [lb_av] 162.8 [lb_av] eCW1 ([facility]) Body temperature 96.4 [degF] 96.4 [degF] MED[facility] ([facility]) Diastolic blood pressure 74 mm[Hg] 74 mm[Hg] [facility] Systolic blood pressure 124 mm[Hg] 124 mm[Hg] [facility] Oxygen saturation in Arterial blood by Pulse oximetry 98 % 98 % [facility] Body mass index (BMI) [Ratio] 28.34 kg/m2 28.34 kg/m2 [facility] Body weight 72.576 kg 72.576 kg [facility] Heart rate 92 /min 92 /min [facility] Diastolic blood pressure 66 mm[Hg] 66 mm[Hg] eCW1 ([facility]) Systolic blood pressure 124 mm[Hg] 124 mm[Hg] e CW1 ([facility]) Body temperature 97.8 [degF] 97.8 [degF] eCW1 ( [facility]) Respiratory rate 18 /min 18 /min eCW1 ([facility]) Heart rate 64 /min 64 /min eCW1 ([facility]) Body mass index (BMI) [Ratio] 27.63 kg/m2 27.63 kg/m2 eCW1 ([facility]) Body height 64 [in_i] 64 [in_i] eCW1 ([facility]) Body weight 73.0 kg 73.0 kg eCW1 ([facility]) Body weight 161.0 [lb_av] 161.0 [lb_av] eCW1 ([facility]) Body mass index (BMI) [Ratio] 28.0 kg/m2 28.0 k g/m2 MED[facility] ([facility]) Oxygen saturation in Arterial blood by Pulse oximetry 96 % 96 % [facility] ([facility]) RM Air Body weight 158.00 [lb_av] 158.00 [lb_av] MEDEN T ([facility]) Body height 63 [in_i] 63 [in_i] [facility] ([facility]) 5'3" Diastolic blood pressure 82 mm[Hg] 82 mm[Hg] [facility] ([facility]) Systolic blood pressure 138 mm[Hg] 138 mm[Hg] M EDENT ([facility]) Body temperature 96.0 [degF] 96.0 [degF] [facility] ([facility] Body mass index (BMI) [Ratio] 27.12 kg/m2 27.12 kg/m2 eCW1 ([facility]) Body height 64 [in_i] 64 [in_i] eCW1 ([facility]) Body weight 158 [lb_av] 158 [lb_av] eCW1 ([facility]) Diastolic blood pressure 68 mm[Hg] 68 mm[Hg] eCW1 ([facility]) Systolic blood pressure 130 mm[Hg] 130 mm[Hg] e CW1 ([facility]) Body mass index (BMI) [Ratio] 27.12 kg/m2 27.12 kg/m2 eCW1 ([facility]) Body height 64 [in_i] 64 [in_i] eCW1 ([facility]) Body weight 158 [lb_av] 158 [lb_av] eCW1 ([facility]) Body temperature 97.8 [degF] 97.8 [degF] eCW1 ( [facility]) Respiratory rate 18 /min 18 /min eCW1 ([facility]) Heart rate 53 /min 53 /min eCW1 ([facility]) Body mass index (BMI) [Ratio] 26.71 kg/m2 26.71 kg/m2 eCW1 ([facility]) Body height 64 [in_i] 64 [in_i] eCW1 ([facility]) Body weight 70.6 kg 70.6 kg eCW1 ([facility]) Body weight 155.6 [lb_av] 155.6 [lb_av] eCW1 ([facility]) Body mass index (BMI) [Ratio] 28.5 kg/m2 28.5 k g/m2 MEDRICK ([facility]) Body weight 161.00 [lb_av] 161.00 [lb_av] ANITHA T ([facility]) Body height 63 [in_i] 63 [in_i] MEDRICK ([facility]) 5'3" Heart rate 63 /min 63 /min MEDRICK ([facility]) Diastolic blood pressure 56 mm[Hg] 56 mm[Hg] MEDRICK ([facility]) Systolic blood pressure 102 mm[Hg] 102 mm[Hg] M EDENT ([facility]) Body mass index (BMI) [Ratio] 28.3 kg/m2 28.3 k g/m2 MEDENT ([facility]) Oxygen saturation in Arterial blood by Pulse oximetry 97 % 97 % MEDRICK ([facility]) Air Body weight 160.00 [lb_av] 160.00 [lb_av] ANITHA T ([facility]) Body height 63 [in_i] 63 [in_i] MEDENT ([facility]) 5'3" Heart rate 73 /min 73 /min [facility] ([facility]) Diastolic blood pressure 60 mm[Hg] 60 mm[Hg] [facility] ([facility]) Systolic blood pressure 118 mm[Hg] 118 mm[Hg] [facility] ([facility]) Body weight 72.746 kg 72.746 kg [facility] ([facility]) Body mass index (BMI) [Ratio] 27.5 kg/m2 27.5 k g/m2 [facility] ([facility]) Body weight 160.38 [lb_av] 160.38 [lb_av] [facility] Body height 64 [in_i] 64 [in_i] [facility] ([facility]) 5'4" Body temperature 98.1 [degF] 98.1 [degF] [facility] ([facility]) Diastolic blood pressure 87 mm[Hg] 87 mm[Hg] [facility] ([facility]) Systolic blood pressure 147 mm[Hg] 147 mm[Hg] [facility] ([facility]) Body mass index (BMI) [Ratio] 28.2 kg/m2 28.2 k g/m2 [facility] ([facility]) Oxygen saturation in Arterial blood by Pulse oximetry 98 % 98 % [facility] ([facility]) Air Body weight 159.00 [lb_av] 159.00 [lb_av] [facility] Body height 63 [in_i] 63 [in_i] [facility] ([facility]) 5'3" Heart rate 86 /min 86 /min [facility] ([facility]) Diastolic blood pressure 84 mm[Hg] 84 mm[Hg] [facility] ([facility]) Systolic blood pressure 130 mm[Hg] 130 mm[Hg] [facility] ([facility]) Body weight 73.540 kg 73.540 kg [facility] ([facility]) Body mass index (BMI) [Ratio] 27.8 kg/m2 27.8 k g/m2 [facility] ([facility]) Body weight 162.12 [lb_av] 162.12 [lb_av] [facility] ([facility]) Body height 64 [in_i] 64 [in_i] [facility] ([facility]) 5'4" Diastolic blood pressure 62 mm[Hg] 62 mm[Hg] [facility] ([facility]) Systolic blood pressure 108 mm[Hg] 108 mm[Hg] [facility] [facility] ([facility]) Body mass index (BMI) [Ratio] 28.3 kg/m2 28.3 k g/m2 [facility] ([facility]) Oxygen saturation in Arterial blood by Pulse oximetry 98 % 98 % [facility] ([facility]) RM Air Body weight 160.00 [lb_av] 160.00 [lb_av] [facility] T ([facility]) Body height 63 [in_i] 63 [in_i] [facility] ([facility]) 5'3" Heart rate 84 /min 84 /min [facility] ([facility]) Diastolic blood pressure 90 mm[Hg] 90 mm[Hg] [facility] ([facility]) Systolic blood pressure 140 mm[Hg] 140 mm[Hg] [facility] ([facility]) Body mass index (BMI) [Ratio] 29.6 kg/m2 29.6 k g/m2 [facility] ([facility]) Oxygen saturation in Arterial blood by Pulse oximetry 97 % 97 % [facility] ([facility]) RM Air Body weight 167.00 [lb_av] 167.00 [lb_av] [facility] T ([facility]) Body height 63 [in_i] 63 [in_i] [facility] ([facility]) 5'3" Heart rate 66 /min 66 /min [facility] ([facility]) Diastolic blood pressure 84 mm[Hg] 84 mm[Hg] [facility] ([facility]) Systolic blood pressure 140 mm[Hg] 140 mm[Hg] [facility] ([facility]) Body weight 72.746 kg 72.746 kg [facility] ([facility]) Body mass index (BMI) [Ratio] 27.5 kg/m2 27.5 k g/m2 [facility] ([facility]) Body weight 160.38 [lb_av] 160.38 [lb_av] [facility] ([facility]) Body height 64 [in_i] 64 [in_i] [facility] ([facility], ) 5'4" Diastolic blood pressure 83 mm[Hg] 83 mm[Hg] [facility] ([facility]) Systolic blood pressure 152 mm[Hg] 152 mm[Hg] [facility] ([facility]) Body mass index (BMI) [Ratio] 28.7 kg/m2 28.7 k g/m2 [facility] ([facility]) Oxygen saturation in Arterial blood by Pulse oximetry 98 % 98 % [facility] ([facility]) Body weight 162.00 [lb_av] 162.00 [lb_av] [facility] ([facility]) Body height 63 [in_i] 63 [in_i] [facility] ([facility]) 5'3" Heart rate 96 /min 96 /min [facility] ([facility]) Diastolic blood pressure 60 mm[Hg] 60 mm[Hg] [facility] ([facility]) Systolic blood pressure 126 mm[Hg] 126 mm[Hg] [facility] ([facility]) Body mass index (BMI) [Ratio] 25.6 kg/m2 25.6 k g/m2 [facility] ([facility] ) Body weight 149.00 [lb_av] 149.00 [lb_av] [facility] ([facility] ) Body height 64 [in_i] 64 [in_i] [facility] ([facility] ) 5'4" Patient Treatment Plan of Care Planned Activity Planned Date Details Description Data Source (s) Losartan Potassium 25 MG Oral Tablet 06/05/2020 12:00:00 AM EST [facility] Famotidine 40 MG Oral Tablet 05/23/2020 12:00:00 AM EST [facility] Triamcinolone Acetonide 0.001 MG/MG Topical Ointment 020 12:00:00 AM EST [facility] ([facility]) Triamcinolone Acetonide 0.001 MG/MG Topical Ointment 12:00:00 AM EST eCW1 ([facility]) Triamcinolone Acetonide 0.001 MG/MG Topical Ointment 12:00:00 AM EST eCW1 ([facility]) Triamcinolone Acetonide 0.001 MG/MG Topical Ointment 12:00:00 AM EST eCW1 ([facility]) Furosemide 20 MG Oral Tablet 07/24/2019 12:00:00 AM EST [facility] Metoprolol Tartrate 25 MG Oral Tablet 07/10/2019 12:00:00 AM EST [facility] quetiapine 25 MG Oral Tablet 06/13/2019 12:00:00 AM EST [facility] Losartan Potassium 50 MG Oral Tablet [facility]
[2020-07-20 13:42] LABS: BASO # 0.1 10^3/uL (0.0-0.2); BASO % 0.6 % (0.0-1.0); EOS # 0.8 10^3/uL (0.0-0.5); EOS % 7.6 % (0.0-3.0); HEMOGLOBIN 9.2 g/dl (12.0-15.5); LYMPH # 2.1 10^3/uL (1.5-5.0); LYMPH % 19.4 % (24.0-44.0); MEAN CORPUSCULAR HEMOGLOBIN 26.6 pg (27.0-33.0); MEAN CORPUSCULAR HGB CONC 29.7 g/dl (32.0-36.5); MEAN CORPUSCULAR VOLUME 89.6 fl (80.0-96.0); MONO # 0.8 10^3/uL (0.0-0.8); MONO % 7.6 % (0.0-5.0); NEUTROPHILS % 64.3 % (36.0-66.0); PLATELET COUNT, AUTOMATED 433 10^3/uL (150-450); RED BLOOD COUNT 3.46 10^6/uL (4.00-5.40); WHITE BLOOD COUNT 10.9 10^3/uL (4.0-10.0)
[2020-07-20 13:59] LABS: INR 1.01; PROTHROMBIN TIME 13.5 SECONDS (12.5-14.3)
[2020-07-20 14:00] LABS: PARTIAL THROMBOPLASTIN TIME 31.8 SECONDS (24.2-38.5)
[2020-07-20 14:09] LABS: BLOOD UREA NITROGEN 17 MG/DL (7-18); CALCIUM LEVEL 8.5 MG/DL (8.8-10.2); CARBON DIOXIDE LEVEL 22 MEQ/L (21-32); CHLORIDE LEVEL 109 MEQ/L (98-107); CK-MB VALUE MASS 1.4 NG/ML (<3.6); CPK CREATINE PHOSPHOKINASE 44 U/L (26-192); CREATININE FOR GFR 1.67 MG/DL (0.55-1.30); GLOMERULAR FILTRATION RATE 31.9 (>39); GLUCOSE, FASTING 105 MG/DL (70-100); MB/CK RELATIVE INDEX 3.18 (< OR =4); POTASSIUM SERUM 4.2 MEQ/L (3.5-5.1); SODIUM LEVEL 136 MEQ/L (136-145); TROPONIN I < 0.02 NG/ML (< 0.10)
--- NOTE | 2020-07-20 15:09 | REP ---
INDICATION: trauma. COMPARISON: 02/01/2020. TECHNIQUE: CT chest performed without the use of intravenous contrast. Sagittal and coronal reconstruction images are performed. FINDINGS: Lungs: There is diffuse interstitial fibrotic change. No acute infiltrate is seen. Mediastinum: No gross adenopathy. Kiara: No gross adenopathy. Axilla: No gross adenopathy. Pleura: No effusion. Heart: Not enlarged. Thoracic aorta: No aneurysm. Focal ectasia at the isthmus of the thoracic aorta is unchanged compared to multiple prior exams. Visualized osseous structures: There are mild degenerative changes of the spine without compression deformity. IMPRESSION: Unremarkable noncontrast CT chest. <Electronically signed by Christophe Ayala > 07/20/20 [id number]
--- NOTE | 2020-07-20 15:11 | REP ---
INDICATION: trauma. COMPARISON: Comparison is made with prior CT study of the lumbar spine from November 30, 2019, comparison radiographs of the lumbar spine dated November 26, 2019, and comparison MRI study of the lumbar spine from May 14, 2020.. TECHNIQUE: Helical scanning is acquired and 4 mm axial images re-formatted. Coronal and sagittal MPR images are generated. FINDINGS: In the interval since the November 30, 2019 and May 14, 2020 prior lumbar spine study, a partial superior endplate collapse has developed at the L2 level. There is no paravertebral hematoma but this is consistent with a recent compression fracture deformity. Anteriorly there is less than 10% loss of vertebral body height. No other acute fracture is seen. The previous study showed a similar partial collapse of the L4 superior endplate. Progressive changes are seen here. There is some healing sclerosis but erosive changes are noted along the superior endplate of the L4 vertebral body centrally and anteriorly which are new since the prior study and not typical for healing compression deformity changes. There is no progressive loss of vertebral body height or new fracture. At L5, there is also new finding within erosion along the anterior margin of the inferior endplate at L5 which was not seen on November 30, 2019. No paravertebral soft tissue mass is seen. There is moderate central canal stenosis at L4-5 due to ligamentum flavum and facet hypertrophy and can junction with diffuse disc bulging. This was observed on recent MRI study. It is felt to be unchanged. 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 There is a 1.9 cm eccentric aneurysmal bulge from the left lateral wall of the aorta at the level of the left renal artery origin. The infrarenal abdominal aorta measures 4.2 cm in greatest right to left dimension. Its anterior wall is excluded from the field of view of today's study. Left common iliac artery measures 2.4 cm in greatest diameter. The distal right common iliac artery is aneurysmal measuring 2.4 cm in diameter as well. IMPRESSION: 1. Interval partial collapse of the superior endplate of the L2 vertebral body consistent with recent traumatic or osteoporotic compression fracture deformity. 2. Progressive erosive change visible along superior endplate of the L4 vertebral body where the CT exam from November of 2019 showed partial collapse of the superior endplate. Similar new erosive changes seen along the anterior margin of the L5 vertebral body at its inferior endplate. These changes are atypical for degenerative disc disease or healing fracture. They raise the question of low-grade infectious discitis such as tuberculosis or other etiology. 3. Aorta bi-iliac aneurysm again noted. 4. Moderate central canal stenosis again noted at L4-5. <Electronically signed by Christiano Chris > 07/20/20 1722
--- NOTE | 2020-07-20 15:15 | REP ---
INDICATION: trauma. COMPARISON: Comparison CT imaging February 01, 2020.. TECHNIQUE: Helical scanning is acquired and 4 mm axial images are generated. Coronal and sagittal MPR images are generated and reviewed. FINDINGS: Thoracic vertebral body heights are preserved. Partial collapse of the superior endplate of L2 is again noted as described in the CT lumbar spine study. Discogenic spurring is again noted in midthoracic levels as visible previously in the February 01, 2020 prior study. There is a small vacuum phenomena at the T7-T8 disc and there are Schmorl's nodes on either side of the anterior margin of this disc. No bony destructive lesion is seen. No thoracic vertebral body fracture or collapse is observed. No paravertebral mass or hematoma is observed.11 degenerative disc disease changes are noted at C6-7 as well. No focal central canal narrowing is appreciated. No thoracic disc herniation is seen. IMPRESSION: Degenerative disc changes as noted above. No acute abnormality in the thoracic spine. <Electronically signed by Christiano Chris > 07/20/20 [id number]
--- NOTE | 2020-07-20 15:19 | REP ---
INDICATION: trauma COMPARISON: 01/08/2019. TECHNIQUE: CT Scan of the abdomen and pelvis was performed without intravenous contrast. Sagittal and coronal reconstruction images performed. FINDINGS: Lung bases: Unremarkable. Liver: Grossly unremarkable. Gallbladder: Unremarkable. Spleen: Grossly unremarkable.. Adrenals: Normal. Pancreas: Grossly unremarkable.. Kidneys: 2 punctate calcifications are seen in the upper pole of the right kidney. The right kidney demonstrates an extrarenal pelvis. There is moderate left renal atrophy. There is no left hydronephrosis. Small and large bowel: Grossly unremarkable.. Free fluid: None. Abdominal aorta: Focal saccular outpouching along the left side of the abdominal aorta just above the level of the left renal artery is unchanged. The infrarenal abdominal aorta demonstrates fusiform aneurysmal dilatation which has increased since the prior exam, maximum AP diameter 4.2 cm. Common iliac arteries are dilated. Adenopathy: None. Appendix: Not inflamed. Osseous structures: Compression deformities of L2 and L4. Please see CT lumbar spine report from today. Pelvis: Prior hysterectomy. No mass. Bladder grossly unremarkable. IMPRESSION: Increased size of abdominal aortic aneurysm as discussed in detail above since prior CT of 01/08/2019. No free air or free fluid. Compression deformities at L2 and L4. Please see CT lumbar spine report from today. <Electronically signed by Christophe Ayala > 07/20/20 [id number]
[2020-07-20 16:08] LABS: RSV AMPLIFICATION NEGATIVE (NEGATIVE)
[2020-07-20] MEDS ORDERED: ACETAMINOPHEN TAB 650MG DOSE (2X325MG) PO PRN (16:30)
[2020-07-20] MEDS ORDERED: MORPHINE 2 MG/ML 1ML VIAL (J2270) IV PRN (16:45)
[2020-07-20] MEDS ORDERED: NICOTINE 14 MG/24 HR TRANSDERMAL TD ONE (17:00)
[2020-07-20 17:13] LABS: ERYTHROCYTE SEDIMENTATION RATE 67 mm/hr (0-30)
--- NOTE | 2020-07-20 17:15 | HPEPDOC ---
[facility] Medical History & Physical Date of Admission Jul 20, 2020 Date of Service: Jul 20, 2020 Attending Physician: Yandy Esposito MD History and Physical CHIEF COMPLAINT: Back pain HISTORY OF PRESENT ILLNESS: Patient is a 75-year-old female with past medical history of coronary artery disease status post stents, anxiety, depression, COPD, history of multiple CVAs, GERD, chronic pain, hypertension, lipidemia who presented to [facility] emergency room with the chief complaint of persistent bilateral mid and lower back pain status post fall 2 days ago. The patient states she cannot remember what caused her to fall but she lost her balance, she denies hitting her head. She landed on her right side and immediately noticed mid to lower back pain bilaterally. She held off coming to the emergency room states today the pain was 10/10, bilateral from the thoracic to the lumbar area, nonradiating, sharp, worsened with activity. The patient tried Tylenol and other [id number] medications at home did not help with the pain. The patient walks normally with a walker and cane at baseline. She felt as though she had increasing unsteadiness on her feet and cane for further evaluation. The patient denies lower extremity weakness lower extremity pain, numbness, loss of consciousness with her fall, facial drooping, speech issues, blurry vision, chest pain, shortness of breath, lightheadedness, dizziness, nausea, vomiting, tingling actually is. In the emergency room, vital signs were stable. The patient displayed no neurological deficits, no weakness, no pain, no numbness or tingling. WBC slightly elevated at 10.9, creatinine 1.67. CT head: Multiple old cortical and lacunar infarcts as described above- two of these in the right frontal parietal periventricular white matter are new from the December 2018 study however they have a chronic appearance. There is another new sub cm focus of decreased density in the right thalamus which is age indeterminate. CT lumbar spine: L4 vertebral body changes atypical for degenerative disc disease or healing fracture raising the question of low-grade infectious discitis such as tuberculosis or other etiology. Patient was attempted to walk to bathroom but had severe pain and had to have assistance. She lives alone. Due to findings of concern above, patient was admitted to hospitalist service for further workup of lower back pain possibly 2/2 to lumbar discitis, new CVA, ambulatory dysfunction s/p fall REVIEW OF SYSTEMS: Neg except mentioned above PAST MEDICAL HISTORY: Coronary artery disease status post stents Hypertension HLD Depression/anxiety COPD RLS HX of multiple CVAs GERD Chronic pain PAST SURGICAL HISTORY: Total hysterectomy Coronary Artery stent placement Tonsillectomy Stomach reconstruction surgery FAMILY HISTORY: Father: Lung cancer. at 54 y/o Mother: HTN. at 75 y/o SOCIAL HISTORY: Patient is a smoker for5 cigarettes per day. Has been smoking for 30 years. Denies alcohol or drug use. Uses a walker and cane at baseline. Patient follows with cardiology, Dr. Herring. Neurology, Dr. Tan. PCP- Dr. Rain. Lives alone. Full Code. ALLERGIES: Please see below. HOME MEDICATIONS: Please see below. PHYSICAL EXAMINATION: VS: Stable CONSTITUTIONAL: Appears uncomfortable from pain, AAO x 3 EYES: PERRLA, EOM intact HENT, MOUTH: Normocephalic, atraumatic, moist mucous membranes NECK: SUPPLE, no JVD, no lymphadenopathy, no carotid bruit CV: Regular rate and rhythm, S1S2 normal, no murmurs/rubs/gallops RESPIRATORY: Clear to auscultation bilaterally, no rales/rhonchi/wheezes GI: BS positive in 4 quadrants, soft, nontender, nondistended, no rebound or guarding, no organomegaly : Deferred MUSCULOSKELETAL: Stiff to sit up in bed, tenderness to palpation of the bilateral lumbar area on back. No cyanosis, clubbing, swelling, joint deformity, extremity edema, bruising. ROM not tested of back INTEGUMENTARY: right elbow skin injury from fall, scabbed. Otherwise, intact, no rashes, no lesions, no erythema NEUROLOGIC: Cranial Nerves II-XII are intact, no focal deficits PSYCHIATRIC: Mood and affect are normal LABORATORY DATA: Please see below MICRO: Blood cultures x 2 sets ordered IMAGING: F/u MRI/MRA brain and MRI of lumbar spine with contrast CT head: Multiple old cortical and lacunar infarcts as described above. Two of these in the right frontal parietal periventricular white matter are new from the December 2018 study however they have a chronic appearance. There is another new sub cm focus of decreased density in the right thalamus which is age indeterminate. No evidence of intracranial hemorrhage or skull fracture. CT lumbar spine: 1. Interval partial collapse of the superior endplate of the L2 vertebral body consistent with recent traumatic or osteoporotic compression fracture deformity. 2. Progressive erosive change visible along superior endplate of the L4 vertebral body where the CT exam from November of 2019 showed partial collapse of the superior endplate. Similar new erosive changes seen along the anterior margin of the L5 vertebral body at its inferior endplate. These changes are atypical for degenerative disc disease or healing fracture. They raise the question of low grade infectious discitis such as tuberculosis or other etiology. 3. Aorta bi-iliac aneurysm again noted. 4. Moderate central canal stenosis again noted at L4-5. CT abd/pelvis: Increased size of abdominal aortic aneurysm 4.2 cm as discussed in detail above since prior CT of 01/08/2019. No free air or free fluid. Compression deformities at L2 and L4. ASSESSMENT: PLAN: Lumbar back pain possibly 2/2 to lumbar discitis, lumbar compression fracture -Pain s/p mechanical fall -Afebrile, WBC minimally elevated -F/u blood cultures x 2 sets, CRP, ESR -CT spine above -When have results of MRI lumbar spine, would consult orthopedic surgery to evaluate. -Withholding antimicrobial therapy until a microbiologic diagnosis is confirmed, per recommendations (no sepsis or neurological compromise present) -Also did not order PT/OT, would hold off until after orthopedic surgery evaluation. -Morphine PRN for pain CVA, age indeterminant. Hx of CVA in past -Please see CT head above -Currently no neurological deficits; however, concerning for embolic disease? -MRI/MRA brain ordered from ER, echo with bubble study and carotid doppler pending -Follows with Dr. Tan neurology o/p -C/w home ASA, plavix and statin Ambulatory dysfunction s/p mechanical fall -Holding off on PT/OT until MRI can be discussed with orthopedic surgery AAA -Chronic -4.2 cm in size -F/u with PCP CKD Stage III -Cr baseline -C/w home meds, avoid additional nephrotoxic medications Coronary artery disease status post stents -Denies chest pain, shortness of breath -CT chest neg -C/w home cardiac meds Hypertension -C/w home meds HLD -C/w statin Depression/anxiety -Stable -C/w home meds COPD -On RA -C/w home med Tobacco use -Nicotine patch RLS -C/w home med GERD -C/w famotidine Chronic pain -C/w home med DVT px -Heparin sC DISPOSITION: Admitted as acute inpatient. Plan is to continue w/u above and hopeful for discharge home. Vital Signs Vital Signs Date Time Temp Pulse Resp B/P (MAP) Pulse Ox O2 Delivery O2 Flow Rate FiO2 07/20/20 15:30 67 18 132/58 (82) 97 Room Air 07/20/20 12:17 99.1 Laboratory Data Labs 24H Laboratory Tests 2 07/20/20 12:50: Prothrombin Time 13.5, Prothromb Time International Ratio 1.01, Activated Partial Thromboplast Time 31.8, Anion Gap 5L, Glomerular Filtration Rate 31.9L, Calcium Level 8.5L, Total Creatine Kinase 44, Creatine Kinase MB 1.4, Creatine Kinase MB Relative Index 3.18, Troponin I < 0.02 07/20/20 13:25: Immature Granulocyte % (Auto) 0.5, Neutrophils (%) (Auto) 64.3, Lymphocytes (%) (Auto) 19.4L, Monocytes (%) (Auto) 7.6H, Eosinophils (%) (Auto) 7.6H, Basophils (%) (Auto) 0.6, Neutrophils # (Auto) 7.0, Lymphocytes # (Auto) 2.1, Monocytes # (Auto) 0.8, Eosinophils # (Auto) 0.8H, Basophils # (Auto) 0.1, Nucleated Red Blood Cells % (auto) 0.0 07/20/20 15:24: Coronavirus (COVID-19)(PCR) NEGATIVE, Influenza Type A (RT-PCR) NEGATIVE, Influenza Type B (RT-PCR) NEGATIVE, Respiratory Syncytial Virus (PCR) NEGATIVE CBC/BMP Laboratory Tests 07/20/20 12:50 07/20/20 13:25 Home Medications Scheduled Amlodipine Besylate (Amlodipine Besylate) 5 Mg Tablet, 5 MG PO BID Aspirin (Aspirin EC) 81 Mg Tablet.dr, 81 MG PO DAILY Atorvastatin Calcium (Atorvastatin Calcium) 40 Mg Tablet, 40 MG PO DAILY Budesonide/Formoterol (Symbicort 160-4.5 Mcg Inhaler) 6 Gm Hfa.aer.ad, 2 PUFF INH BID Duloxetine Hcl (Duloxetine HCl) 60 Mg Capsule.dr, 60 MG PO BID Famotidine (Famotidine) 40 Mg Tablet, 40 MG PO DAILY Gabapentin (Gabapentin) 300 Mg Capsule, 300 MG PO BID Hydroxychloroquine Sulfate (Hydroxychloroquine Sulfate) 200 Mg Tablet, 200 MG PO BID Losartan Potassium (Losartan Potassium) 25 Mg Tablet, 25 MG PO DAILY Metoprolol Tartrate (Metoprolol Tartrate) 25 Mg Tab, 25 MG PO DAILY Pramipexole Di-HCl (Pramipexole Dihydrochloride) 1 Mg Tablet, 1 MG PO QHS Quetiapine Fumarate (Quetiapine Fumarate) 25 Mg Tablet, 25 MG PO QHS Scheduled PRN Albuterol Sulfate (Ventolin Hfa) 18 Gm Hfa.aer.ad, 2 PUFF INH Q4H PRN for SOB/WHEEZING Alprazolam (Alprazolam) 0.5 Mg Tablet, 0.5 MG PO QHS PRN for ANXIETY/AGITATION Fluticasone Propionate (Fluticasone Propionate) 16 Gm [place].susp, 1 SPRAY NARES DAILY PRN for CONGESTION Nitroglycerin (Nitroglycerin) 0.4 Mg Sub, 0.4 MG SL NITRO PRN for CHEST PAIN Allergies Coded Allergies: No Known Allergies (Unverified , 12/19/18) A-FIB/CHADSVASC A-FIB History Current/History of A-Fib/PAF?: No Current PO Anticoag Therapy: No Age/Risk Factor Scoring CHADSVASC: CHADSVASC Response (Comments) Value Age Risk Factor Age 65-74 years old 1 Gender Risk Factor Female 1 Hx of CHF No 0 Hx of HTN Yes 1 Hx of Stroke/TIA/or VTE Yes 2 Hx of Diabetes No 0 Hx of Vascular Disease No 0 Total 5 Treatment Other anticoagulant ordered: heparin Yandy Esposito MD Jul 20, 2020 17:15
[2020-07-20] MEDS ORDERED: ALBUTEROL 90 MCG/ACT 8GM HFA INHALER INH PRN (17:30)
[2020-07-20] MEDS ORDERED: FLUTICASONE PROP 0.05% NASAL SPRAY 16 GM (FLONASE) NARES PRN (17:30)
[2020-07-20] MEDS ORDERED: ALPRAZolam 0.5 MG TAB PO PRN (17:30)
--- OUTSIDE RECORDS SUMMARY | 2020-07-20 17:41 | CCD ---
Author Author [facility] Organization [facility] Address Unknown Phone Unavailable Care Team Providers Care Final Dressing Cutter Name Role Phone Koffi, Kaylene DO Unavailable [...] DO Unavailable Unavailable Kocan, J Maria Elena ENTEROSTOMAL THERAPY NURSE Unavailable Unavailable Kocan, J Maria Elena ENTEROSTOMAL THERAPY NURSE Unavailable Unavailable Kocan, J Maria Elena ENTEROSTOMAL THERAPY NURSE Unavailable Unavailable Kocan, J Maria Elena ENTEROSTOMAL THERAPY NURSE Unavailable Unavailable Kocan, J Maria Elena ENTEROSTOMAL THERAPY NURSE Unavailable Unavailable Kocan, J Maria Elena ENTEROSTOMAL THERAPY NURSE Unavailable Unavailable Kocan, J Maria Elena ENTEROSTOMAL THERAPY NURSE Unavailable Unavailable Kocan, J Maria Elena ENTEROSTOMAL THERAPY NURSE Unavailable Unavailable Kocan, J Maria Elena ENTEROSTOMAL THERAPY NURSE Unavailable Unavailable Kocan, J Maria Elena ENTEROSTOMAL THERAPY NURSE Unavailable Unavailable Kocan, J Maria Elena ENTEROSTOMAL THERAPY NURSE Unavailable Unavailable Kocan, J Maria Elena ENTEROSTOMAL THERAPY NURSE Unavailable Unavailable Kocan, J Maria Elena ENTEROSTOMAL THERAPY NURSE Unavailable Unavailable Koffi, Kaylene DO Unavailable Unavailable Koffi, Kaylene DO Unavailable Unavailable Koffi, Kaylene DO Unavailable Unavailable Koffi, Kaylene DO Unavailable Unavailable Koffi, Kyalene DO Unavailable Unavailable Koffi, Kaylene DO Unavailable [...] Unavailable RODRI, JAYSON CURRIE Unavailable Unavailable RODRI, JAYSNO CURRIE Unavailable Unavailable RODRI, JAYSON CURRIE Unavailable [...] is protected by Article 27-F of the [place] State Public Health law. If you continue you may have access to information: Regarding HIV / AIDS; Provided by facilities licensed or operated by the [facility] Office of Mental Health; or Provided by the [facility] Office for People With Developmental Disabilities. If such information is present, then the following [facility] mandated warning applies: This information has been [...] law may result in a fine or long-term sentence or both. A general authorization for the release of medical or other information is NOT sufficient authorization for further disc losure. Family History Family Member Name Family Member Gender Family Member Status Date o f Status Description Data Source(s) Unknown Unknown Problem MEDENT ([facility]) Unknown Unknown Problem MEDENT ([facility]) Unknown Unknown Problem MEDENT ([facility]) Unknown Unknown Problem MEDENT ([facility]) Unknown Unknown Problem MEDENT ([facility] ) Encounters Encounter Providers Location Date Indications Data Source(s ) Office Visit, Est Pt., Level 4 [address] [place] [address] 07/13/2020 12:00:00 AM EST eCW1 ([facility]) Office Visit Attender: Cruzito Tan MD Main office - [place] 07/01/2020 01:45:00 PM EST MEDENT ([facility]) Office Visit, Est Pt., Level [address] [place] [phone] 06/24/2020 12:00:00 AM EST eCW1 ([facility]) Outpatient Attender: FIGUEROA VAZ Physical Therapy 06/18/2020 0 9:45:00 AM EST MEDENT ([facility]) Outpatient Attender: Maria Elena DEWITT.ISRRAEL-[email or web address] 2019 12:00:00 AM EST - 06/12/2020 02:38:36 PM EST [facility] Unknown [address] [place] [address], [facility] [address] 06/09/2020 12:00:00 AM EST eCW1 ([facility]) [place] [address] [address] 06/08/2020 12:00:00 AM EST eCW1 ([facility]) Office Visit, Est Pt., Level [address] [place] [address] 06/04/2020 12:00:00 AM EST eCW1 ([facility]) Outpatient Attender: Kaylene Desir 05/26 01:00:00 PM EST MEDENT ([facility] ) [place] [address] [address] 05/21/2020 12:00:00 AM EST eCW1 ([facility]) Outpatient [address] [address] 05/19/2020 12:00:00 AM EST eCW1 ([facility]) [place] [address] [address] 05/12/2020 12:00:00 AM EST eCW1 ([facility]) Outpatient [address] [address] 05/05/2020 12:00:00 AM EST eCW1 ([facility]) Outpatient Attender: FIGUEROA VAZ Physical Therapy 04/28/2020 0 3:15:00 PM EDT MEDENT ([facility]) Office Visit Attender: Cruzito Tan MD Main office - [place] 01/28/2020 02:00:00 PM EDT MEDENT ([facility]) [place]patient [address] [address] 01/21/2020 12:00:00 AM EDT eCW1 ([facility]) Outpatient Referrer: Kaylene Rain DO 12/23/2019 07:50:00 AM EDT [facility] Outpatient Attender: Kaylene Desir 12/18 02:00:00 PM EDT MEDENT ([facility] ) Outpatient Attender: JAYSON DEWITT.ISRRAEL-SJP.ISRRAEL 0 12:00:00 AM EDT - 10/24/2019 09:09:45 AM EDT [facility] Outpatient Attender: Kaylene Gottilogradha Rendon 10/21 02:45:00 PM EDT MEDENT ([facility] ) Outpatient Referrer: Kaylene Rain DO 10/10/2019 01:59:00 PM EDT [facility] Outpatient Referrer: Kaylene Rain DO 10/02/2019 03:18:00 PM EDT [facility] Outpatient Referrer: Kaylene Rain DO 10/02/2019 10:31:00 AM EDT [facility] Outpatient Attender: Kaylene Rain DO Gwyn Julieta 09/22 02:45:00 PM EDT MEDENT ([facility] ) Outpatient Attender: Radha Clark RPA Angelica/Strawberry/Bryson/R eindl 09/17/2019 11:00:00 AM EDT MEDENT ([facility]) Outpatient Attender: Kaylene Desir 09/05 01:00:00 PM EST MEDENT ([facility] ) Outpatient Referrer: JAYSON ONEILL-SJP.ISRRAEL 08/07/2019 12:00:00 AM EST [facility] Outpatient Attender: Kaylene Desir 07/23 12:30:00 PM EST MEDENT ([facility] ) Outpatient Attender: JAYSON MACE MDConsultant: JAYSON Avitia JP.ISRRAEL-SJP 07/10/2019 12:22:38 PM EST - 07/10/2019 02:02:15 PM EST [facility] Outpatient Referrer: Kaylene Rain DO 07/08/2019 02:11:00 PM EST [facility] Outpatient Attender: Radha Clark RPA Angelica/Strawberry/Bryson/R eindl 06/19/2019 10:15:00 AM EST MEDENT ([facility]) Outpatient Attender: Kaylene Desir 06/17 01:30:00 PM EST MEDENT ([facility] ) Outpatient Referrer: Kaylene Rain DO 06/14/2019 02:15:00 PM EST [facility] Outpatient Attender: Cruzito Tan MD Main office - [place] 06/12/2019 12:30:00 PM EST MEDENT ([facility]) Immunizations Vaccine [...] active Take 25 mg by mouth daily [facility] 50 mg 06/02/2020 12:00:00 AM EST tablet 15 TAKE ONE TO TWO TABLETS BY MOUTH EVERY 6 HOURS NEEDED FOR PAIN MAXIMUM DAILY DOSE = 3 TABLETS TAKE ONE TO TWO TABLETS BY MOUTH EVERY 6 HOURS NEEDED FOR PAIN MAXIMUM DAILY DOSE = 3 TABLETS SOLD: 06/02/2020 [email or web address] 50 mg 05/29/2020 12:00:00 AM EST tablet 15 TAKE ONE TO TWO TABLETS BY MOUTH EVERY 6 HOURS NEEDED FOR PAIN MAXIMUM DAILY DOSE = 3 TAKE ONE TO TWO TABLETS BY MOUTH EVERY 6 HOURS NEEDED FOR PAIN MAXIMUM DAILY DOSE = 3 SOLD: 05/29/2020 [facility] Pramipexole dihydrochloride 1 MG Oral Tablet [Mirapex] Mirap ex 05/26/2020 12:00:00 AM EST ORAL active Alejandro VIVAS ([facility]) 25 mg 05/25/2020 12:00:00 AM EST tablet 30 TAKE ONE TABLET BY MOUTH EVERY DAY TAKE ONE TABLET BY MOUTH EVERY DAY SOLD: 05/25/2020 [facility] 25 mg 05/25/2020 12:00:00 AM EST tablet 30 TAKE ONE TABLET BY MOUTH EVERY DAY TAKE ONE TABLET BY MOUTH EVERY DAY SOLD: 06/22/2020 [facility] Famotidine 40 MG Oral Tablet famotidine (PEPCID) 40 MG tablet famotidine (PEPCID) 40 MG tablet 05/23/2020 12:00:00 AM EST 40 mg Oral active Take 40 mg by mouth daily [facility] 50 mg 05/20/2020 12:00:00 AM EST tablet 15 TAKE ONE TO TWO TABLETS BY MOUTH EVERY 6 HOURS NEEDED FOR PAIN MAXIMUM DAILY DOSE = 3 TABLETS TAKE ONE TO TWO TABLETS BY MOUTH EVERY 6 HOURS NEEDED FOR PAIN MAXIMUM DAILY DOSE = 3 TABLETS SOLD: 05/20/2020 [email or web address] 1 mg 05/19/2020 12:00:00 AM EST tablet 90 TAKE ONE TABLET BY MOUTH EVERY DAY AT BEDTIME MAXIMUM DAILY DOSE = 1 TAKE ONE TABLET BY MOUTH EVERY DAY AT BE DTIME MAXIMUM DAILY DOSE = 1 SOLD: 05/19/2020 [facility] Triamcinolone Acetonide 0.001 MG/MG Topi regina Ointment Triamcinolone Acetonide 0.1 % Triamcinolone Acetonide 0.1 % 05/19/2020 12:00:00 AM EST 1.0 {application} active Triamcinolone Aceton zita 0.1 % eCW1 ([facility]) Triamcinolone Acetonide 0.001 MG/MG Topi regina Ointment Triamcinolone Acetonide 0.1 % Triamcinolone Acetonide 0.1 % 05/19/2020 12:00:00 AM EST 1.0 {application} active Triamcinolone Aceton zita 0.1 % eCW1 ([facility]) Triamcinolone Acetonide 0.001 MG/MG Topi regina Ointment Triamcinolone Acetonide 0.1 % Triamcinolone Acetonide 0.1 % 05/19/2020 12:00:00 AM EST 1.0 {application} active Triamcinolone Aceton zita 0.1 % eCW1 ([facility]) Triamcinolone Acetonide 0.001 MG/MG Topi regina Ointment Triamcinolone Acetonide 0.1 % Triamcinolone Acetonide 0.1 % 05/19/2020 12:00:00 AM EST 1.0 {application} active Triamcinolone Aceton zita 0.1 % eCW1 ([facility]) Triamcinolone Acetonide 0.001 MG/MG Topi regina Ointment Triamcinolone Acetonide 0.1 % Triamcinolone Acetonide 0.1 % 05/19/2020 12:00:00 AM EST 1.0 {application} active Triamcinolone Aceton zita 0.1 % eCW1 ([facility]) Triamcinolone Acetonide 0.001 MG/MG Topi regina Ointment Triamcinolone Acetonide 0.1 % Triamcinolone Acetonide 0.1 % 05/19/2020 12:00:00 AM EST 1.0 {application} active Triamcinolone Aceton zita 0.1 % eCW1 ([facility]) Triamcinolone Acetonide 0.001 MG/MG Topi regina Ointment Triamcinolone Acetonide 0.1 % Triamcinolone Acetonide 0.1 % 05/19/2020 12:00:00 AM EST 1.0 {application} active Triamcinolone Aceton zita 0.1 % eCW1 ([facility]) Triamcinolone Acetonide 0.001 MG/MG Topi regina Ointment Triamcinolone Acetonide 0.1 % Triamcinolone Acetonide 0.1 % 05/12/2020 12:00:00 AM EST 1.0 {application} active Triamcinolone Aceton zita 0.1 % eCW1 ([facility]) Triamcinolone Acetonide 0.001 MG/MG Topi reg[facility] Ointment Triamcinolone Acetonide 0.1 % Triamcinolone Acetonide 0.1 % 05/12/2020 12:00:00 AM EST 1.0 {application} active Triamcinolone Aceton zita 0.1 % eCW1 ([facility]) Triamcinolone Acetonide 0.001 MG/MG Topi regina Ointment Triamcinolone Acetonide 0.1 % Triamcinolone Acetonide 0.1 % 05/12/2020 12:00:00 AM EST 1.0 {application} active Triamcinolone Aceton zita 0.1 % eCW1 ([facility]) Triamcinolone Acetonide 0.001 MG/MG Topi regina Ointment Triamcinolone Acetonide 0.1 % Triamcinolone Acetonide 0.1 % 05/12/2020 12:00:00 AM EST 1.0 {application} active Triamcinolone Aceton ziat 0.1 % eCW1 ([facility]) Triamcinolone Acetonide 0.001 MG/MG Topi regina Ointment Triamcinolone Acetonide 0.1 % Triamcinolone Acetonide 0.1 % 05/12/2020 12:00:00 AM EST 1.0 {application} active Triamcinolone Aceton zita 0.1 % eCW1 ([facility]) 0.1 % 05/12/2020 12:00:00 AM EST ointment 80 APPLY 1 APPLICATION TWICE A DAY TO LEGS FOR 14 DAYS (AVOID BIOPSY SITE) APPLY 1 APPLICATION TWICE A DAY TO LEGS FOR 14 DAYS (AVOID BIOPSY SITE) SOLD: 05/12/2020 [facility] 50 mg 05/12/2020 12:00:00 AM EST [...] active Triamcinolone Aceton zita 0.1 % eCW1 ([facility]) Triamcinolone Acetonide 0.001 MG/MG Topi regina Ointment Triamcinolone Acetonide 0.1 % Triamcinolone Acetonide 0.1 % 05/12/2020 12:00:00 AM EST 1.0 {application} active Triamcinolone Aceton zita 0.1 % eCW1 ([facility]) Triamcinolone Acetonide 0.001 MG/MG Topi regina Ointment Triamcinolone Acetonide 0.1 % Triamcinolone Acetonide 0.1 % 05/12/2020 12:00:00 AM EST 1.0 {application} active Triamcinolone Aceton zita 0.1 % eCW1 ([facility]) Triamcinolone Acetonide 0.001 MG/MG Topi regina Ointment Triamcinolone Acetonide 0.1 % Triamcinolone Acetonide 0.1 % 05/12/2020 12:00:00 AM EST 1.0 {application} active Triamcinolone Aceton zita 0.1 % eCW1 ([facility]) 25 mg 05/11/2020 12:00:00 AM EST tablet 90 TAKE ONE TABLET BY MOUTH AT BEDTIME TAKE ONE TABLET BY MOUTH AT BEDTIME SOLD: 05/11/2020 [facility] Alprazolam 0.5 MG Oral Tablet ALPRAZOLAM 05/09/2020 12:00:00 AM EST ta blet 30 TAKE ONE TABLET BY MOUTH EVERY DAY AT BEDTIME NEEDED MAXIMUM DAILY DOSE = 1 TAKE ONE TABLET BY MOUTH EVERY DAY AT BEDTIME NEEDED MAXIMUM DAILY DOSE = 1 SOLD: 05/10/2020 [facility] 25 mg 05/08/2020 12:00:00 AM EST tablet 30 TAKE 1 TABLET BY MOUTH ONCE DAILY TAKE 1 TABLET BY MOUTH ONCE DAILY SOLD: 06/05/2020 [email or web address] Hydroxychloroquine Sulfate 200 MG Oral Tablet [...] 12:00:00 AM EDT ORAL active [facility] ([facility] ) 300-60 mg 04/07/2020 12:00:00 [...] 12/02/2019 12:00:00 AM EDT ORAL active [facility] ([facility]) Acetaminophen 325 MG / Hydrocodone Bitartrate 5 MG Ora l Tablet Hydrocodone Bitartrate/Acetaminophen 11/27/2019 12:00:00 AM EDT ORAL active MEDENT ([facility]) 5-325 mg 11/27/2019 12:00:00 [...] 11/06/2019 12:00:00 AM EDT ORAL completed MEDENT ([facility]) 25 mg 11/06/2019 12:00:00 [...] 11/06/2019 12:00:00 AM EDT ORAL completed MEDENT ([facility] ) 25 mg 11/06/2019 12:00:00 [...] Prednisone 10/23/2019 12:00:00 AM EDT completed MEDENT ([facility]) Losartan Potassium 25 MG Oral [...] Sulfate 09/23/2019 12:00:00 AM EDT active MEDENT ([facility]) atorvastatin 40 MG Oral Tablet Atorvastatin Calcium 09/23/2019 1 2:00:00 AM EDT ORAL active MEDENT ( [facility]) Alprazolam 0.5 MG Oral Tablet ALPRAZOLAM 09/18/2019 12:00:00 AM EDT ta blet 30 TAKE ONE TABLET BY MOUTH AT BEDTIME NEEDED MAXIMUM DAILY DOSE = 1 TAKE ONE TABLET BY MOUTH AT BEDTIME NEEDED MAXIMUM DAILY DOSE = 1 SOLD: 09/18/2019 [facility] Amlodipine 5 MG Oral Tablet Amlodipine Besylate 09/17/2019 12:00:00 A M EDT ORAL active MEDENT ([facility]) 5 mg 09/17/2019 12:00:00 AM EDT [...] e Take 20 mg by mouth daily [facility] 20 mg 07/24/2019 12:00:00 AM EST tablet [...] 07/23/2019 12:00:00 AM EST ORAL completed MED[facility] ([facility]) 40 mg 07/23/2019 12:00:00 AM [...] by mouth 2 (two) times a day [facility] Alprazolam 0.5 MG Oral Tablet ALPRAZOLAM 06/27/2019 [...] Oral active Take 25 mg by mouth [facility] 300 mg 06/13/2019 12:00:00 AM EST capsule [...] 12:00:00 AM EST ORAL active MEDENT ([facility]) 80 mg 06/11/2019 12:00:00 [...] by mouth 2 (two) times a day [facility] Insurance Providers Payer name Policy type / Coverage type Policy ID Covered republican ID Covered republican's relationship to thompson Policy Thompson Plan Information EMEDNY [id number] SP [id number] MEDICARE [id number] SP [id number] MEDICARE [id number] SP [id number] [id number] MEDICAID [id number] MEDICARE [id number] MEDICARE [id number] Jewell [id number] Y64 HUMANA GOLD O [id number] S [id number] MEDICAID M [id number] HUMANA GOLD [id number] SP [id number] MEDICARE C [id number] S [id number] EMEDNY [id number] SP [id number] MEDICAID [id number] SP [id number] MEDICARE [id number] Jewell [id number] Y64 MEDICARE [id number] SP [id number] MEDICAID [id number] SP [id number] 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 [id number] Self [id number] Medicaid Medigap Part B [id number] Self [id number] Medicare Natl Govt Servic Medicare Primary [id number] Self [id number] MEDICAID [id number] SP [id number] MEDICAID [id number] SP [id number] 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 [id number] Self [id number] Medicaid Medigap Part B [id number] Self [id number] Medicare Natl Govt Servic Medicare Primary [id number] Self [id number] 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 [id number] Self [id number] Medicaid Medigap Part B [id number] Self [id number] Medicare [place] Govt Servic Medicare Primary [id number] Self [id number] Medicaid Medigap Part B [id number] Self [id number] 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 [id number] Self [id number] Medicare Natl Govt Servic Medicare Primary [id number] Self [id number] Medicaid Medigap Part B [id number] Self [id number] 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 [id number] Self [id number] Medicare [place] Govt Servic Medicare Primary [id number] Self [id number] Medicaid Medigap Part B [id number] Self [id number] 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 [id number] Self [id number] Medicare Natl Govt Servic Medicare Primary [id number] Self [id number] Medicaid Medigap Part B [id number] Self [id number] 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 [id number] Self [id number] Medicare Natl Govt Servic Medicare Primary [id number] Self [id number] MEDICAID UNAVAILABLE UNAVAILA BLE 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 [id number] Self [id number] Medicare Natl Govt Servic Medicare Primary [id number] Self [id number] Medicaid Medigap Part B [id number] Self [id number] 63C 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 [id number] Self [id number] Medicare Natl Govt Servic Medicare Primary [id number] Self [id number] MEDICARE PI PI Medicaid Medigap Part B [id number] Self [id number] 63C 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 [id number] Self [id number] Medicare Natl Govt Servic Medicare Primary [id number] Self [id number] Medicaid Medigap Part B [id number] Self [id number] 63C 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 [id number] Self [id number] Medicare [place] Govt Servic Medicare Primary [id number] Self [id number] Medicaid Medigap Part B [id number] Self [id number] 63C 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 [id number] Self [id number] Medicare Natl Govt Servic Medicare Primary [id number] Self [id number] MEDICARE C [id number] S [id number] A Medicaid Medigap Part B [id number] Self [id number] 63C 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 [id number] Self [id number] Medicare Natl Govt Servic Medicare Primary [id number] Self [id number] Medicaid Medigap Part B [id number] Self [id number] 63C 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 [id number] Self [id number] Medicare Natl Govt Servic Medicare Primary [id number] Self [id number] MEDICAID [id number] SP [id number] Medicaid Medigap Part B [id number] Self [id number] 63C 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 [id number] Self [id number] Medicare Natl Govt Servic Medicare Primary [id number] Self [id number] Medicaid Medigap Part B [id number] Self [id number] 63C 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 [id number] Self [id number] Medicare [place] Govt Servic Medicare Primary [id number] Self [id number] MEDICARE [id number] SP [id number] A [place] Part B Self Medicare Nat[place] Gov't Servi Medicare Primary Self Medicaid Medigap Part B 1 1 Self 1 1 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 Self Medicare [facility] Medicare Primary Self [place] Part B Self Medicare [facility] Medicare Primary Self [facility] () Workers 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 Self OTHER WORKERS COMPENSATION [id number] SP [id number] A Problems, Conditions, and Diagnoses Code Display Name Description Problem Type Effective Dates Data Source(s) I25.5 Ischemic cardiomyopathy Ischemic cardiomyopathy 707922 2020 12:00:00 AM EST [facility] M47.816 068597818 Lumbar spondylosis Problem 06/04/2020 12:00: 00 AM EST eCW1 ([facility]) I77.6 46238802 Vasculitis Problem 06/04/2020 12:00:00 AM ES T eCW1 ([facility]) M79.7 [id number] Fibromyalgia Problem 01/21/2020 12:00:00 AM EDT eCW1 ([facility]) 81288809 Neck pain Neck pain Problem 11/06/2019 12:00:00 AM ED T MEDENT ([facility]) [id number] 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 Problem 11/06/2019 12:00:00 AM EDT MEDENT ([facility]) 65931030 Abnormal gait Abnormal gait Problem 10/30/2019 12:00:00 AM EDT MEDENT ([facility]) 714304538 Nervous system symptoms Nervous system symptoms Proble m 10/30/2019 12:00:00 AM EDT MEDENT ([facility]) 931810850 CVA - cerebrovascular accident due to ce rebral artery occlusion CVA - cerebrovascular accident due to cerebral artery occlusion Problem 06/18/2019 12:00:00 AM EST MEDENT ([facility]) 55526525 Essential hypertension Essential hypertension Problem 06/14/2019 12:00:00 AM EST MEDENT ([facility]) I10 Essential (primary) hypertension Essential (primary) h ypertension Diagnosis 06/12/2020 01:26:55 PM EST [facility] E78.5 Hyperlipidemia, unspecified Hyperlipidemia, unspecifie d Diagnosis 06/12/2020 01:26:55 PM [facility] N18.9 Chronic kidney disease, unspecified Chronic kidn ey disease, unspecified Diagnosis 06/12/2020 01:26:55 PM [facility] Z72.0 Tobacco use Tobacco use Diagnosis 06/12/2020 01:26:55 PM [facility] I25.83 Coronary atherosclerosis due to lipid ri ch plaque Coronary atherosclerosis due to lipid ri Diagnosis 06/12/2020 01:26:[address] [facility] I25.10 Atherosclerotic heart diseas e of [place] coronary artery without angina pectoris Atherosclerotic heart disease of [place] Diagnosis 06/12/2020 01:26:55 PM [facility] F41.9 Anxiety disorder, unspecified Anxiety disorder, unspec ified Diagnosis 10/23/2019 12:50:14 PM EDT [facility] D64.9 Anemia, unspecified Anemia, unspecified Diagnosis 0 10/23/2019 12:50:14 PM EDT [facility] Z86.73 Personal history of transien t ischemic attack (TIA), and cerebral infarction without residual deficits Personal history of transient ischemic a Diagnosis 10/23/2019 12:50:14 PM EDT [facility] M79.606 Pain in leg, unspecified Pain in leg, unspecified Diag nosis 07/10/2019 12:22:38 PM [facility] Surgeries/Procedures Procedure Description Date Indications Data Source(s) RADEX SPINE LUMBOSACRAL 2/3 VIEWS 06/18/2020 12:00:00 AM EST MEDENT ([facility]) Needle electromyography, each extremity, with related paraspinal areas, when performed, done with nerve conduction, amplitude and latency/velocity study; complete, five or more muscles studied, innervated by three or more nerves or four or more spinal levels (list separately in addition to the code for primary procedure). 06/15/2020 12:00:00 AM EST ANITHA T ([facility]) Needle electromyography, each extremity, with related paraspinal areas, when performed, done with nerve conduction, amplitude and latency/velocity study; complete, five or more muscles studied, innervated by three or more nerves or four or more spinal levels (list separately in addition to the code for primary procedure). 06/15/2020 12:00:00 AM EST MEDEN T ([facility] ) Nerve Conduction 11-12 Studies 06/15/2020 12:00:00 AM EST MEDENT ([facility] ) ECG ROUTINE ECG W/LEAST 12 LDS W/I&R POCT AMB EKG Routine 06/12/2020 5:31 PM EST Coronary artery disease due to lipid rich plaque Essential hypertension 06/12/2020 10:31:00 PM EST Essential hypertensionCoronary artery disease due to lipid rich plaque [facility] Essential hypertension Coronary artery disease due to lipid tristian h plaque HEPATIC FUNCTION PANEL HEPATIC FUNCTION PANEL Routine 05/26/2020 05/26/2020 12:00:00 AM EST [facility] BASIC METABOLIC PANEL CALCIUM TOTAL BASIC METABOLIC PANEL Routine 05/26/2020 05/26/2020 12:00:00 AM [facility] BLOOD COUNT COMPLETE AUTO&AUTO DIFRNTL WBC COUNT CBC AND DIFFER ENTIAL Routine 04/21/2020 04/21/2020 12:00:00 AM EDT [facility] [facility] Diabetic Retinal Eye Exam 02/25/2020 12:00:00 AM EDT [facility] ([facility]) RADEX SPINE LUMBOSACRAL 2/3 VIEWS 01/28/2020 12:00:00 AM EDT [facility] ([facility] ) RADEX SPINE LUMBOSACRAL 2/3 VIEWS 12/16/2019 12:00:00 AM EDT [facility] ([facility] ) CLTX VRT BDY FX W/O MANJ REQ&W/CSTING/BRACING 12/02/19 12:00:00 AM EDT [facility] ([facility] ) MRI BRAIN BRAIN STEM W/O CONTRAST MATERIAL 11/02/2019 12:00:00 AM EDT [facility] ([facility] ) MRI BRAIN BRAIN STEM W/O CONTRAST MATERIAL 11/02/2019 12:00:00 AM EDT [facility] ([facility] ) MRI SPINAL CANAL CERVICAL W/O CONTRAST MATRL 0 12:00:00 AM EDT [facility] ([facility] ) MRI SPINAL CANAL CERVICAL W/O CONTRAST MATRL 0 12:00:00 AM EDT [facility] ([facility]) RADEX HAND MINIMUM 3 VIEWS 08/23/2019 12:00:00 AM EST [facility] ([facility]) RADEX HAND MINIMUM 3 VIEWS 07/25/2019 12:00:00 AM EST [facility] ([facility]) RADEX HAND MINIMUM 3 VIEWS 07/11/2019 12:00:00 AM EST [facility] ([facility]) APPLICATION CAST ELBOW FINGER SHORT ARM 07/04/2019 12: 00:00 AM EST [facility] ([facility]) CLTX METACARPAL FX W/O MANIPULATION EACH BONE 06/13/20 12:00:00 AM EST [facility] ([facility]) Results ID Date Data Source [id number] 07/10/2020 03:17:00 PM EST [facility] ([facility]) Name Value Range Interpretation Code Description Data Amber rce(s) Supporting Document(s) Creatinine [Mass/volume] in Urine 341.0 mg/dL [facility] ([facility]) <content>note:<nlbl:demographic_changed> </content>
<content></content> Protein [Mass/volume] in Urine 198.0 mg/dL 0.0-12.0 [facility] ([facility]) <content>note:<nlbl:demographic_changed> </content>
<content></content> ID Date Data Source [id number] 07/10/2020 03:14:00 PM EST [facility] ([facility]) Name Value Range Interpretation Code Description Data Amber rce(s) Supporting Document(s) Complement C3 [Mass/volume] in Serum or Plasma 139 mg/dL 90-180 [facility] ([facility]) <content>note:<nlbl:demographic_changed> </content>
<content></content> Complement C4 [Mass/volume] in Serum or Plasma 29 mg/dL 10-40 [facility] ([facility]) <content>note:<nlbl:demographic_changed> </content>
<content></content> C reactive protein [Mass/volume] in Serum or Plasma by High sensitivity method 2.83 mg/dL 0.00-0.30 [facility] ([facility] ) <content>note:<nlbl:demographic_changed> </content>
<content></content> ID Date Data Source [id number] 07/10/2020 03:14:00 PM EST [facility] ([facility]) Name Value Range Interpretation Code Description Data Amber rce(s) Supporting Document(s) Blood Urea Nitrogen 15 mg/dL 7-18 [facility] ([facility]) Glucose, Fasting 110 mg/dL 70-100 [facility] ([facility]) Creatinine For GFR 1.55 mg/dL 0.55-1.30 [facility] ([facility]) Glomerular Filtration Rate 34.8 [facility] ([facility]) <content>Units are mL/min/1.73 m2</content>
<content></content>
<content>Chronic Kidney Disease Staging per NKF:</content>
<content></content>
<content>Stage I & II GFR >=60 Normal to Mildly Decreased</content>
<content>Stage III GFR 30- 59 Moderately Decreased</content>
<content>Stage IV GFR 15-29 Severely Decreased</content>
<content>Stage V GFR <15 Very Little GFR Left</content>
<content>ESRD GFR <15 on SCRIPT SUPERVISOR</content>
<content></content> Sodium Level 138 meq/L 136-145 [facility] ([facility]) Chloride Level 110 meq/L 98-107 [facility] ([facility]) Carbon Dioxide Level 24 meq/L 21-32 [facility] ([facility]) Potassium Serum 4.9 meq/L 3.5-5.1 [facility] ([facility]) Calcium Level 8.5 mg/dL 8.8-10.2 [facility] ([facility]) Anion Gap 4 meq/L 8-16 [facility] [facility] Ast/Sgot 5 U/L 7-37 [facility] [facility]) Alt/SGPT 10 U/L 12-78 [facility] [facility]) Bilirubin,Total 0.2 mg/dL 0.2-1.0 [facility] ([facility]) Alkaline Phosphatase 92 U/L 45-117 [facility] ([facility]) Albumin 2.7 GM/DL 3.2-5.2 [facility] ([place] [facility]) Total Protein 6.7 GM/DL 6.4-8.2 [facility] ([facility]) Albumin/Globulin Ratio 0.7 1.2-2.2 [facility] ([facility]) ID Date Data Source [id number] 07/10/2020 03:14:00 PM EST [facility] ([facility]) Name Value Range Interpretation Code Description Data Amber rce(s) Supporting Document(s) Erythrocyte sedimentation rate by Westergren method 79 mm/hr 0-30 [facility] ([facility]) ID Date Data Source [id number] 07/10/2020 03:14:00 PM EST [facility] ([facility]) Name Value Range Interpretation Code Description Data Amber rce(s) Supporting Document(s) White Blood Count 11.3 10 4.0-10.0 [facility] ([facility]) Hemoglobin 9.7 g/dL 12.0-15.5 [facility] ([place] [facility]) Red Blood Count 3.54 10 4.00-5.40 [facility] ([facility]) Hematocrit 32.0 % 36.0-47.0 [facility] ([place] [facility]) Mean Corpuscular Volume 90.4 fl 80.0-96.0 [facility] ([facility]) Mean Corpuscular Hemoglobin 27.4 pg 27.0-33.0 ME DENT ([facility]) Mean Corpuscular HGB Conc 30.3 g/dL 32.0-36.5 MEDE NT ([facility]) Red Cell Distribution Width 16.1 % 11.5-14.5 IA DENT ([facility]) Platelet Count, Automated 450 10 150-450 MEDE NT ([facility]) Neutrophils % 61.2 % 36.0-66.0 [facility]) Lymph % 18.6 % 24.0-44.0 [facility] [place] [facility]) Boyle % 9.1 % 0.0-5.0 [facility]) Eos % 10.2 % 0.0-3.0 [facility]) Immature Granulocyte % 0.4 % 0-3.0 [facility] ([facility]) Baso % 0.5 % 0.0-1.0 [facility] [place] [facility]) Neutrophils # 6.9 10 1.5-8.5 [facility] ([facility]) Nucleated Red Blood Cell % 0.0 % 0-0 [facility] ([facility]) Lymph # 2.1 10 1.5-5.0 [facility] [place] [facility]) Boyle # 1.0 10 0.0-0.8 [facility] [place] [facility]) Eos # 1.2 10 0.0-0.5 [facility] [place] [facility]) Baso # 0.1 10 0.0-0.2 [facility] [facility]) ID Date Data Source RHEUMATOID FACTOR QUANT 06/04/2020 12:00:00 AM EST eCW1 ([facility]) Name Value Range Interpretation Code Description Data Amber rce(s) Supporting Document(s) 67.1 <15.0 eCW1 ([facility]) ID Date Data Source IgG SUBCLASS 4 06/04/2020 12:00:00 AM EST eCW1 ([facility]) Name Value Range Interpretation Code Description Data Amber rce(s) Supporting Document(s) 237 2-96 eCW1 ([facility]) ID Date Data Source CREATININE,RANDOM URINE 06/04/2020 12:00:00 AM EST eCW1 ([facility]) Name Value Range Interpretation Code Description Data Amber rce(s) Supporting Document(s) 267.0 eCW1 ([facility]) ID Date Data Source LAKESHA TITER & PATTERN 06/04/2020 12:00:00 AM EST eCW1 ([facility]) Name Value Range Interpretation Code Description Data Amber rce(s) Supporting Document(s) Negative . eCW1 ([facility]) ID Date Data Source ANTI-SJOGRENS A&B ANTIBODIES 06/04/2020 12:00:00 AM EST eCW1 ([facility]) Name Value Range Interpretation Code Description Data Amber rce(s) Supporting Document(s) <0.2 0.0-0.9 eCW1 ([facility]) <0.2 0.0-0.9 eCW1 ([facility]) ID Date Data Source TOTAL PROTEIN,RANDOM URINE 06/04/2020 12:00:00 AM EST eCW1 ( [facility]) Name Value Range Interpretation Code Description Data Amber rce(s) Supporting Document(s) 147.1 0.0-12.0 eCW1 ([facility]) ID Date Data Source HEPATITIS C ANTIBODY INDEX 06/04/2020 12:00:00 AM EST eCW1 ( [facility]) Name Value Range Interpretation Code Description Data Amber rce(s) Supporting Document(s) 0.0 <0.8 eCW1 ([facility]) ID Date Data Source Lupus Anticoagulant with RFX Send Out ONLY 06/04/2020 12:00: 00 AM EST eCW1 ([facility]) Name Value Range Interpretation Code Description Data Amber rce(s) Supporting Document(s) 42.9 0.0-47.0 eCW1 ([facility]) 39.1 0.0-51.9 eCW1 ([facility]) Comment: . eCW1 ([facility]) ID Date Data Source CRYOGLOBULINS 06/04/2020 12:00:00 AM EST eCW1 ([facility]) Name Value Range Interpretation Code Description Data Amber rce(s) Supporting Document(s) NEGATIVE NEGATIVE eCW1 ([facility]) ID Date Data Source ANTI-CARDIOLIPIN ANTIBODIES 06/04/2020 12:00:00 AM EST eCW1 ([facility]) Name Value Range Interpretation Code Description Data Amber rce(s) Supporting Document(s) <9 0-12 eCW1 ([facility]) <9 0-11 eCW1 ([facility]) <9 0-14 eCW1 ([facility]) ID Date Data Source HEPATITIS B CORE ANTIBODY IGG 06/04/2020 12:00:00 AM EST eCW 1 ([facility]) Name Value Range Interpretation Code Description Data Amber rce(s) Supporting Document(s) Negative Negative eCW1 ([facility]) ID Date Data Source ERYTHROCYTE SEDIMENTATION RATE 06/04/2020 12:00:00 AM EST eC W1 ([facility]) Name Value Range Interpretation Code Description Data Amber rce(s) Supporting Document(s) 54 0-30 eCW1 ([facility]) ID Date Data Source HEPATITIS B SURFACE ANTIGEN 06/04/2020 12:00:00 AM EST eCW1 ([facility]) Name Value Range Interpretation Code Description Data Amber rce(s) Supporting Document(s) NEGATIVE NEGATIVE eCW1 ([facility]) ID Date Data Source CPK CREATINE PHOSPHOKINASE 06/04/2020 12:00:00 AM EST eCW1 ( [facility]) Name Value Range Interpretation Code Description Data Amber rce(s) Supporting Document(s) 42 26-192 eCW1 ([facility]) ID Date Data Source COMPLEMENT C4 06/04/2020 12:00:00 AM EST eCW1 ([facility]) Name Value Range Interpretation Code Description Data Amber rce(s) Supporting Document(s) 32 10-40 eCW1 ([facility]) ID Date Data Source COMPLEMENT C3 06/04/2020 12:00:00 AM EST eCW1 ([facility]) Name Value Range Interpretation Code Description Data Amber rce(s) Supporting Document(s) 156 90-180 eCW1 ([facility]) ID Date Data Source BETA-2 GLYCOPROTEIN 1 LEANN ROBERT 06/04/2020 12:00:00 AM EST eCW 1 ([facility]) Name Value Range Interpretation Code Description Data Amber rce(s) Supporting Document(s) <9 0-25 eCW1 ([facility]) <9 0-32 eCW1 ([facility]) <9 0-20 eCW1 ([facility]) ID Date Data Source [id number] 05/26/2020 01:48:00 PM EST [facility] ([facility]) Name Value Range Interpretation Code Description Data Amber rce(s) Supporting Document(s) Glucose [Mass/volume] in Serum or Plasma 117 mg/dL 74-99 [facility] ([facility]) 100-125 mg/dL PRE-DIABETES/FASTING >126 mg/dL DIABETES/FASTING Urea nitrogen [Mass/volume] in Serum or Plasma 12 mg/dL 7-18 [facility] ([facility]) Sodium [Moles/volume] in Serum or Plasma 142 meq/L 136-145 [facility] ([facility]) Creatinine 1.6 mg/dL 0.6-1.3 [facility] Chloride [Moles/volume] in Serum or Plasma 106 meq/L 98-107 [facility] ([facility]) Carbon dioxide, total [Moles/volume] in Serum or Plasma 25 meq/L 21 -32 [facility] ([facility]) Potassium [Moles/volume] in Serum or Plasma 3.5 meq/L 3.5-5.1 [facility] ([facility]) Calcium [Mass/volume] in Serum or Plasma 8.6 mg/dL 8.5-10.1 [facility] ([facility]) Total Bilirubin 0.2 mg/dL 0.2-1.0 [facility] ([facility]) Aspartate aminotransferase [Enzymatic activity/volume] in Serum or Plasma 12 U/L 15-37 [facility] ([facility] ) Alkaline phosphatase isoenzyme [Units/volume] in Serum or Pl asma 92 mg/dL 46-116 [facility] ([facility]) Proteinase 3 Ab [Units/volume] in Serum 7.2 g/dL 6.4-8.2 [facility] ([facility]) Alanine aminotransferase [Enzymatic activity/volume] in Seru m or Plasma 13 U/L 12-78 [facility] ([facility] Albumin [Mass/volume] in Serum or Plasma 3.2 g/dL 3.4-5.0 [facility] ([facility]) Glomerular filtration rate/1.73 sq M pre dicted among non-blacks [Volume Rate/Area] in Serum or Plasma by Creatinine-based formula (MDRD) 32 mL/min [facility] Glomerular filtration rate/1.73 sq M pre dicted among blacks [Volume Rate/Area] in Serum or Plasma by Creatinine-based formula (MDRD) 38 mL/min [facility] ([facility]) <content>CHRONIC KIDNEY DISEASE STAGING PER NKF</content>
<content></content>
<content>STAGE I & II GFR >= 60 NORMAL TO MILDLY DECREASED</content>
<content>STAGE III GFR 30-59 MODERATELY DECREASED</content>
<content>STAGE IV GFR 15-29 SEVERELY DECREASED</content>
<content>STAGE V GFR <15 VERY LITTLE GFR LEFT</content>
<content>ESRD GFR <15 ON SCRIPT SUPERVISOR</content>
<content></content> A/G Ratio 0.80 CALC 1.00-1.90 [facility] ([facility]) ID Date Data Source [id number] 05/26/2020 01:48:00 PM EST [facility] Name Value Range Interpretation Code Description Data Amber rce(s) Supporting Document(s) Erythrocytes [#/volume] in Blood by Automated count 3.79 x10*6/UL 4.2 0-6.30 [facility] ([facility]) Leukocytes [#/volume] in Blood by Automated count 11.9 x10*3/UL 4.1-1 0.9 [facility] ([facility]) Hematocrit [Volume Fraction] of Blood by Automated count 32.1 % 3 7.0-51.0 [facility] ([facility]) MCV 84.7 fL 80.0-97.0 [facility] ([facility]) Hemoglobin [Mass/volume] in Blood 10.7 g/dL 12.0-18.0 [facility] ([facility]) Erythrocyte distribution width [Ratio] by Automated count 16.2 % 11.6-13.7 [facility] ([facility]) MCH 28.4 pg 26.0-32.0 [facility] [facility]) MCHC 33.5 g/dL 31.0-38.0 [facility] [facility]) Platelets [#/volume] in Blood by Automated count 560 x10*3/UL 140-440 [facility] ([facility]) Lymph % 17.9 % 10.0-58.5 [facility] [facility]) MPV 7.6 FL 7.8-11.0 [facility] [facility]) Mid % 5.5 % 1.7-9.3 [facility] [facility]) Neut % 76.6 % 37.0-92.0 [facility] [facility]) Lymph # 2.1 x10*3/UL 0.6-4.1 [facility] ([facility]) Neut # 9.1 x10*3/UL 2.0-7.8 [facility] ([facility]) Mid # 0.7 x10*3/UL 0.1-0.6 [facility] ([facility]) ID Date Data Source [id number] 05/14/2020 12:00:00 AM EST [facility] Patient Name: MAXWELL AQUINO [facility] Date [place] : 1945[place] [place] [facility] [place] [id number] Date of Exam: 05/14/2020#: Fax: [phone] EXAM: [...] cm at the L3 level on the P2znnveuhd series. The diameter appears to be about [...] by: Rusty Yates MD 05/14/2020 11:48 AM [facility] ( & Angela)RafiV/jmPola you for referring MAHESH AQUINO to our office. Electronically Signed - RAFI 05/14/20 12:29 Name Value Range Interpretation Code Description Data Amber rce(s) Supporting Document(s) ID Date Data Source [id number] 04/29/2020 02:50:00 PM EDT [facility] ([facility]) Name Value Range Interpretation Code Description Data Amber rce(s) Supporting Document(s) Carcinoembryonic Ag [Mass/volume] in Serum or Plasma 4.0 ng/mL [facility] ([facility]) THE CEA ASSAY IS PERFORMED ON THE [employer] BY CHEMILUMINESCENCE AND SHOULD NOT BE COMPARED INTERCHANGEABLY WITH OTHER METHODS. IT SHOULD NOT BE USED ALONE A SCREENING TEST OR DIAGNOSIS FOR THE PRESENCE OR ABSENCE OF MALIGNANT DISEASE. PREDICTIONS OF DISEASE RECURRENCE SHOULD NOT BE BASED SOLELY ON VALUES OBTAINED FROM SERIAL PATIENT SERUM VALUES. ID Date Data Source [id number] 04/29/2020 02:50:00 PM EDT [facility] ([facility]) Name Value Range Interpretation Code Description Data Amber rce(s) Supporting Document(s) Glucose, Fasting 86 mg/dL 70-100 [facility] ([facility]) Blood Urea Nitrogen 14 mg/dL 7-18 [facility] ([facility]) Creatinine For GFR 1.68 mg/dL 0.55-1.30 [facility] ([facility]) Glomerular Filtration Rate 31.8 [facility] ([facility]) <content>Units are mL/min/1.73 m2</content>
<content></content>
<content>Chronic Kidney Disease Staging per NKF:</content>
<content></content>
<content>Stage I & II GFR >=60 Normal to Mildly Decreased</content>
<content>Stage III GFR 30- 59 Moderately Decreased</content>
<content>Stage IV GFR 15-29 Severely Decreased</content>
<content>Stage V GFR <15 Very Little GFR Left</content>
<content>ESRD GFR <15 on SCRIPT SUPERVISOR</content>
<content></content> Chloride Level 110 meq/L 98-107 [facility] ([facility]) Sodium Level 140 meq/L 136-145 [facility] ([facility]) Potassium Serum 4.1 meq/L 3.5-5.1 [facility] ([facility]) Anion Gap 5 meq/L 8-16 [facility] ([facility]) Carbon Dioxide Level 25 meq/L 21-32 [facility] ([facility]) Alt/SGPT 9 U/L 12-78 [facility] ([facility]) Calcium Level 8.3 mg/dL 8.8-10.2 [facility] ([facility]) Ast/Sgot 4 U/L 7-37 [facility] ([facility]) Alkaline Phosphatase 85 U/L 45-117 [facility] ([facility]) Bilirubin,Total 0.2 mg/dL 0.2-1.0 [facility] ([facility]) Total Protein 6.8 GM/DL 6.4-8.2 [facility] ([facility]) Albumin/Globulin Ratio 0.8 1.2-2.2 [facility] ([facility]) Albumin 3.0 GM/DL 3.2-5.2 [facility] [facility]) ID Date Data Source [id number] 04/29/2020 02:50:00 PM EDT [facility] ([facility]) Name Value Range Interpretation Code Description Data Amber rce(s) Supporting Document(s) Red Blood Count 3.57 10 4.00-5.40 [facility] ([facility]) White Blood Count 12.1 10 4.0-10.0 [facility] ([facility]) Hemoglobin 9.5 g/dL 12.0-15.5 [facility] [facility] Hematocrit 31.7 % 36.0-47.0 [facility] ([place] [facility]) Mean Corpuscular Volume 88.8 fl 80.0-96.0 [facility] ([facility]) Mean Corpuscular Hemoglobin 26.6 pg 27.0-33.0 ME D[facility] ([facility]) Mean Corpuscular HGB Conc 30.0 g/dL 32.0-36.5 MEDE NT ([facility]) Red Cell Distribution Width 16.7 % 11.5-14.5 ME [facility] ([facility]) Platelet Count, Automated 439 10 150-450 MEDE NT ([facility]) Neutrophils % 62.7 % 36.0-66.0 [facility] ([facility]) Lymph % 22.4 % 24.0-44.0 [facility] [facility]) Boyle % 7.9 % 0.0-5.0 [facility] [facility]) Eos % 6.0 % 0.0-3.0 [facility] [facility]) Immature Granulocyte % 0.3 % 0-3.0 [facility] ([facility]) Nucleated Red Blood Cell % 0.0 % 0-0 [facility] ([facility]) Baso % 0.7 % 0.0-1.0 [facility] [facility]) Neutrophils # 7.6 10 1.5-8.5 [facility] ([facility]) Boyle # 1.0 10 0.0-0.8 [facility] [facility]) Lymph # 2.7 10 1.5-5.0 [facility] [facility] Eos # 0.7 10 0.0-0.5 [facility] [facility] Baso # 0.1 10 0.0-0.2 [facility] [facility] ID Date Data Source [id number] 03/13/2020 11:32:00 AM EDT [facility] ([facility]) Name Value Range Interpretation Code Description Data Amber rce(s) Supporting Document(s) Erythrocyte sedimentation rate by Westergren method 41 mm/hr 0-15 [facility] ([facility]) ID Date Data Source [id number] 03/13/2020 11:31:00 AM EDT [facility] Name Value Range Interpretation Code Description Data Amber rce(s) Supporting Document(s) Perinuclear AB Anca-P Laboratory test result [facility] ([place] [facility]) The presence of positive fluorescence ex hibiting [...] 1999;111:507-513. Anca-Atypical Laboratory test result [facility] ([facility]) The atypical pANCA pattern has been obse rved in a significant percentage of patients with ulcerative colitis, primary sclerosing cholangitis and autoimmune hepatitis. Cytoplasmic Neutrop AB Anca-C Laboratory test result [facility] ([facility]) ID Date Data Source [id number] 03/13/2020 11:31:00 AM EDT [facility] ([facility]) Name Value Range Interpretation Code Description Data Amber rce(s) Supporting Document(s) Uqzhk-7-Hdigzgoy % 5.2 % 2.9-4.9 [facility] ([facility]) Albumin % 53.1 % 55.8-66.1 [facility] [facility]) Hpria-0-Jnoidhnnt % 14.0 % 7.1-11.8 [facility] ([facility]) Ewxu-5-Hccdcgbfk % 7.2 % 4.7-7.2 [facility] ([facility]) Zvkn-0-Dpnhgaltn % 6.6 % 3.2-6.5 [facility] ([facility]) Gamma Globulin % 13.9 % 11.1-18.8 [facility] ([facility]) Guvuc-4-Epabzrrnh 0.97 GM/DL 0.42-0.99 [facility] ([facility]) Cjiym-5-Kfpjysdzs 0.36 GM/DL 0.17-0.41 [facility] ([facility]) Albumin 3.66 GM/DL 3.29-5.55 [facility] [facility]) Bvvi-2-Cyhgrazac 0.50 GM/DL 0.28-0.60 [facility] ([facility]) Gamma Globulins 0.96 GM/DL 0.65-1.58 [facility] ([facility]) Heej-8-Azmthewey 0.46 GM/DL 0.19-0.55 [facility] ([facility]) Total Protein 6.9 GM/DL 6.4-8.2 [facility] ([facility]) Spep Interpretation Laboratory test result [facility] ([facility]) NO M-SPIKE(S)NOTED. Laboratory test finding (navigational concept) Laboratory test result [facility] ([facility]) REV'D BY Samaria SENIORONG ID Date Data Source [id number] 03/13/2020 11:31:00 AM EDT [facility] ([facility]) Name Value Range Interpretation Code Description Data Amber rce(s) Supporting Document(s) Phospholipid phosphorus [Mass/volume] in Serum 151 mg/dL 150-250 [facility] ([facility]) Results for this test are for research p urposes only by the assay's snailer. The performance characteristics of this product have not been established. Results should not be used as a diagnostic procedure without confirmation of the diagnosis by another medically established diagnostic product or procedure. Performed at: [address], [place], [place] [address] [address] Officer: Trevin Hardin MD, Phone: [phone] ID Date Data Source [id number] 02/12/2020 12:00:00 AM EDT [facility] Patient Name: MAHESH [id number] [facility] Date of : 1945[facility] [place] [address] Date of Exam: 02/12/2020#: Fax: [phone] EXAM: MRI PELVIS WITHOUT CONTRASTCLINICAL INFORMATION: Bilateral hip pain.There are no prior pelvic MRI's for comparison.3T multiplanar MRI imaging of the pelvis was obtained using varioussequences.The femoral heads are spherical in shape and symmetric in appearance.There is mysb-lz-xxjfnauv rather symmetric appearing hip joint spacenarrowing. No abnormal focal chondral or subchondral signal is seen in thefemoral or acetabular component of either hip. There is no hip jointeffusion. There is zvov-ub-orwlhwzd T2 hypersignal seen in thetrochanteric tendinobursal region of each hip. The signal and morphologythroughout the imaged musculature is within normal limits. There is noevidence of a mass or mass effect. The sacroiliac joints are within normallimits. The cortical and marrow signal seen throughout the imaged osseouspelvis is within normal limits.IMPRESSION:1. Arzk-gu-zlfmriol bilateral hip degenerative changes.2. Wjuc-tb-uejmajyb bilateral trochanteric tendinobursitis.Accredited by the [employer] in MR.ANGELIC Almaguer/Zoran hernandez for referring MAHESH AQUINO to our office. Electronically Signed - JASSON BETTS DO 02/12/20 17:50 Name Value Range Interpretation Code Description Data Amber rce(s) Supporting Document(s) ID Date Data Source [id number] 02/01/2020 09:00:00 PM EDT [facility] ([facility]) Name Value Range Interpretation Code Description Data Amber rce(s) Supporting Document(s) Prothrombin Time 13.2 s 11.8-14.0 [facility] ([facility]) Inr 0.99 [facility] ([place] [facility] THERAPUTIC HUMAN INR VALUES INDICATIONS NORMAL RANGES PROPHYLAXIS/TREATMENT OF: VENOUS THROMBOSIS 2.0-3.0 PULMONARY EMBOLISM 2.0-3.0 PREVENTION OF SYSTEMIC EMBOLISM FROM: TISSUE HEART VALVES 2.0-3.0 ACUTE MYOCARDIAL INFARCTION 2.0-3.0 VALVULAR HEART DISEASE 2.0-3.0 ATRIAL FIBRILLATION 2.0-3.0 MECHANICAL VALVES(HIGH RISK) 2.5-3.5 RECURRENT MYOCARDIAL INFARCTION 2.5-3.5 Partial Thromboplastin Time 30.2 s 25.0-38.4 IA D[facility] ([facility]) ID Date Data Source [id number] 02/01/2020 08:40:00 PM EDT [facility] ([facility]) Name Value Range Interpretation Code Description Data Amber rce(s) Supporting Document(s) Troponin I.cardiac [Mass/volume] in Serum or Plasma Laboratory test result [facility] ([facility]) <content>Troponin I Reference Interval f or Siemens Osborne LOCI:</content>
<content></content>
<content>99th Percentile= 0.00-0.045 ng/ml</content>
<content></content>
[...] or Plasm a 80 U/L 73-393 [facility] ([facility]) Thyrotropin [Units/volume] in Serum or Plasma by Detec tion limit <= 0.05 mIU/L 0.753 uIU/ML 0.358-3.740 [facility] ([facility] ) Thyroxine (T4) free [Mass/volume] in Serum or Plasma 0.90 ng/dL 0.76- 1.46 [facility] ([facility]) ID Date Data Source [id number] 02/01/2020 08:40:00 PM EDT [facility] ([facility]) Name Value Range Interpretation Code Description Data Amber rce(s) Supporting Document(s) Glucose, Fasting 103 mg/dL 70-100 [facility] ([facility]) Blood Urea Nitrogen 10 mg/dL 7-18 [facility] ([facility]) Creatinine For GFR 1.34 mg/dL 0.55-1.30 [facility] Glomerular Filtration Rate 41.3 MED [facility] ([facility]) <content>Units are mL/min/1.73 m2</content>
<content></content>
<content>Chronic Kidney Disease Staging per NKF:</content>
<content></content>
<content>Stage I & II GFR >=60 Normal to Mildly Decreased</content>
<content>Stage III GFR 30- 59 Moderately Decreased</content>
<content>Stage IV GFR 15-29 Severely Decreased</content>
<content>Stage V GFR <15 Very Little GFR Left</content>
<content>ESRD GFR <15 on SCRIPT SUPERVISOR</content>
<content></content> Sodium Level 138 meq/L 136-145 [facility] ([facility]) Potassium Serum 4.4 meq/L 3.5-5.1 [facility] ([facility]) Chloride Level 107 meq/L 98-107 [facility] ([facility]) Carbon Dioxide Level 27 meq/L 21-32 [facility] ([facility]) Anion Gap 4 meq/L 8-16 [facility] ([place] [facility]) Calcium Level 8.5 mg/dL 8.8-10.2 [facility] ([facility]) ID Date Data Source [id number] 02/01/2020 08:40:00 PM EDT [facility]) Name Value Range Interpretation Code Description Data Amber rce(s) Supporting Document(s) Ast/Sgot 11 U/L 7-37 [facility] ([place] [facility]) Alt/SGPT 11 U/L 12-78 [facility] ([facility]) Alkaline Phosphatase 101 U/L 45-117 [facility] ([facility]) Bilirubin,Total 0.1 mg/dL 0.2-1.0 [facility] ([facility]) Bilirubin,Direct Laboratory test result 0.0-0.2 [facility] ([facility]) Total Protein 7.0 GM/DL 6.4-8.2 [facility] ([facility]) Albumin 3.0 GM/DL 3.2-5.2 [facility] ([place] [facility]) Albumin/Globulin Ratio 0.8 1.2-2.2 [facility] ([facility]) ID Date Data Source [id number] 02/01/2020 08:40:00 PM EDT [facility] ([facility]) Name Value Range Interpretation Code Description Data Amber rce(s) Supporting Document(s) CPK Creatine Phosphokinase 60 U/L 26-192 [facility] ([facility]) CK-MB Value Mass Laboratory test result [facility] ([facility]) MB/CK Relative Index 1.67 [facility] ([facility]) <content>DIAGNOSIS CRITERIA</content>
<content>MMB ng/ml Relative Index (RI)</content>
<content>NON-AMI < or = 5 N/A</content>
<content>BLANC ZONE > 5 < or = 4</content>
<content>AMI > 5 > 4</content>
<content></content> ID Date Data Source [id number] 02/01/2020 08:40:00 PM EDT [facility] ([facility]) Name Value Range Interpretation Code Description Data Amber rce(s) Supporting Document(s) White Blood Count 9.8 10 4.0-10.0 [facility] ([facility]) Red Blood Count 3.59 10 4.00-5.40 [facility] ([facility]) Hematocrit 33.1 % 36.0-47.0 [facility] [facility]) Hemoglobin 10.0 g/dL 12.0-15.5 [facility] ([place] [facility]) Mean Corpuscular Volume 92.2 fl 80.0-96.0 [facility] ([facility]) Red Cell Distribution Width 15.9 % 11.5-14.5 ME DENT ([facility]) Mean Corpuscular HGB Conc 30.2 g/dL 32.0-36.5 MEDE NT ([facility]) Mean Corpuscular Hemoglobin 27.9 pg 27.0-33.0 ME D[facility] ([facility]) Platelet Count, Automated 427 10 150-450 MEDE NT ([facility]) Neutrophils % 56.1 % 36.0-66.0 [facility] ([facility]) Lymph % 28.3 % 24.0-44.0 [facility] [facility]) Eos % 5.8 % 0.0-3.0 [facility] [facility]) Boyle % 8.8 % 0.0-5.0 [facility] [facility]) Baso % 0.7 % 0.0-1.0 [facility] ([place] [facility]) Immature Granulocyte % 0.3 % 0-3.0 [facility] ([facility]) Nucleated Red Blood Cell % 0.0 % 0-0 [facility] ([facility]) Neutrophils # 5.5 10 1.5-8.5 [facility] ([facility]) Eos # 0.6 10 0.0-0.5 [facility] [facility] Lymph # 2.8 10 1.5-5.0 [facility] [facility] Boyle # 0.9 10 0.0-0.8 [facility] ([place] [facility]) Baso # 0.1 10 0.0-0.2 [facility] ([place] [facility]) ID Date Data Source [id number] 01/24/2020 01:00:00 PM EDT [facility] ([facility]) Name Value Range Interpretation Code Description Data Amber rce(s) Supporting Document(s) C reactive protein [Mass/volume] in Serum or Plasma by High sensitivity method Laboratory test result [facility] ([facility]) ID Date Data Source [id number] 01/24/2020 12:59:00 PM EDT [facility] ([facility]) Name Value Range Interpretation Code Description Data Amber rce(s) Supporting Document(s) Erythrocyte sedimentation rate by Westergren method 54 mm/hr 0-15 [facility] ([facility]) ID Date Data Source [id number] 12/31/2019 01:24:00 PM EDT [facility] ([facility]) Name Value Range Interpretation Code Description Data Amber rce(s) Supporting Document(s) Laboratory test finding (navigational concept) 122 mg/dL 70-105 [facility] ([facility]) Laboratory test finding (navigational concept) 31.0 % 38.0-51.0 [facility] ([facility]) Laboratory test finding (navigational concept) 3.8 meq/L 3.5-5.1 [facility] ([facility]) Laboratory test finding (navigational concept) 4.6 mg/dL 4.5-5.3 [facility] ([facility]) Laboratory test finding (navigational concept) 138 meq/L 136-145 [facility] ([facility]) Laboratory test finding (navigational concept) 9 mg/dL 8-26 [facility] ([facility]) Laboratory test finding (navigational concept) 20.0 MM/L 23.0-27.0 [facility] ([facility]) Laboratory test finding (navigational concept) 104 meq/L 98-109 [facility] ([facility]) Laboratory test finding (navigational concept) 1.3 mg/dL 0.6-1.3 [facility] ([facility]) ID Date Data Source [id number] 12/31/2019 01:22:00 PM EDT [facility] ([facility]) Name Value Range Interpretation Code Description Data Amber rce(s) Supporting Document(s) White Blood Count 13.4 10 4.0-10.0 [facility] ([facility]) Red Blood Count 3.12 10 4.00-5.40 [facility] ([facility]) Hematocrit 28.8 % 36.0-47.0 [facility] ([place] [facility]) Hemoglobin 8.9 g/dL 12.0-15.5 [facility] ([facility]) Mean Corpuscular Volume 92.3 fl 80.0-96.0 [facility] ([facility]) Mean Corpuscular HGB Conc 30.9 g/dL 32.0-36.5 MEDE NT ([facility]) Mean Corpuscular Hemoglobin 28.5 pg 27.0-33.0 ME [facility] ([facility]) Red Cell Distribution Width 17.3 % 11.5-14.5 [facility] ([facility]) Neutrophils % 71.0 % 36.0-66.0 [facility] ([facility]) Platelet Count, Automated 449 10 150-450 MEDE NT ([facility]) Boyle % 9.4 % 0.0-5.0 [facility] [facility]) Eos % 3.4 % 0.0-3.0 [facility] [facility]) Lymph % 15.3 % 24.0-44.0 [facility] ([place] [facility]) Baso % 0.5 % 0.0-1.0 [facility] ([place] [facility] Immature Granulocyte % 0.4 % 0-3.0 [facility] ([facility]) Nucleated Red Blood Cell % 0.0 % 0-0 [facility] ([facility]) Neutrophils # 9.5 10 1.5-8.5 [facility] ([facility]) Lymph # 2.0 10 1.5-5.0 [facility] ([place] [facility] Boyle # 1.3 10 0.0-0.8 [facility] ([place] [facility] Eos # 0.5 10 0.0-0.5 [facility] ([place] [facility]) Baso # 0.1 10 0.0-0.2 [facility] ([place] [facility]) ID Date Data Source [id number] 12/31/2019 01:17:00 PM EDT [facility] ([facility]) Name Value Range Interpretation Code Description Data Amber rce(s) Supporting Document(s) Laboratory test finding (navigational concept) 0.00 ng/mL 0.00-0.08 [facility] ([facility]) ID Date Data Source [id number] 12/31/2019 01:17:00 PM EDT [facility] ([facility]) Name Value Range Interpretation Code Description Data Amber rce(s) Supporting Document(s) Troponin I.cardiac [Mass/volume] in Serum or Plasma Laboratory test result [facility] ([facility]) Laboratory test finding (navigational concept) 0.00 ng/mL 0.00-0.08 [facility] ([facility]) ID Date Data Source [id number] 12/19/2019 02:28:00 PM EDT [facility] ([facility]) Name Value Range Interpretation Code Description Data Amber rce(s) Supporting Document(s) Cholesterol [Mass/volume] in Serum or Plasma 109 mg/dL 131-200 [facility] ([facility]) Cholesterol in HDL [Mass/volume] in Serum or Plasma 52 mg/dL 35-60 [facility] ([facility]) Triglyceride [Mass/volume] in Serum or Plasma 93 mg/dL 30-150 [facility] ([facility]) Cholesterol in LDL [Mass/volume] in Serum or Plasma by calcu lation 38 CALC 50-159 [facility] ([facility]) ID Date Data Source [id number] 12/19/2019 02:28:00 PM EDT [facility] ([facility]) Name Value Range Interpretation Code Description Data Amber rce(s) Supporting Document(s) Urea nitrogen [Mass/volume] in Serum or Plasma 11 mg/dL 7-18 [facility] ([facility]) Creatinine 1.5 mg/dL 0.6-1.3 [facility] NOTE: RESULT VERIFIED. Glucose [Mass/volume] in Serum or Plasma 100 mg/dL 74-99 [facility] ([facility]) 100-125 mg/dL PRE-DIABETES/FASTING >126 mg/dL DIABETES/FASTING Sodium [Moles/volume] in Serum or Plasma 138 meq/L 136-145 [facility] ([facility]) Chloride [Moles/volume] in Serum or Plasma 104 meq/L 98-107 [facility] ([facility]) Potassium [Moles/volume] in Serum or Plasma 4.5 meq/L 3.5-5.1 [facility] ([facility]) Calcium [Mass/volume] in Serum or Plasma 8.0 mg/dL 8.5-10.1 [facility] ([facility]) NOTE: RESULT VERIFIED. Alkaline phosphatase isoenzyme [Units/volume] in Serum or Pl asma 96 mg/dL 46-116 [facility] ([facility]) Carbon dioxide, total [Moles/volume] in Serum or Plasma 27 meq/L 21 -32 [facility] ([facility]) Aspartate aminotransferase [Enzymatic activity/volume] in Serum or Plasma 10 U/L 15-37 [facility] ([facility] ) Alanine aminotransferase [Enzymatic activity/volume] in Seru m or Plasma 14 U/L 12-78 [facility] ([facility]) Total Bilirubin 0.2 mg/dL 0.2-1.0 [facility] ([facility]) A/G Ratio 0.61 CALC 1.00-1.90 [facility] ([place] [facility]) Albumin [Mass/volume] in Serum or Plasma 2.7 g/dL 3.4-5.0 [facility] ([facility]) NOTE: RESULT VERIFIED. Proteinase 3 Ab [Units/volume] in Serum 7.1 g/dL 6.4-8.2 [facility] ([facility] [place] [facility]) Glomerular filtration rate/1.73 sq M pre dicted among non-blacks [Volume Rate/Area] in Serum or Plasma by Creatinine-based formula (MDRD) 34 mL/min [facility] ([facility]) Glomerular filtration rate/1.73 sq M pre dicted among blacks [Volume Rate/Area] in Serum or Plasma by Creatinine-based formula (MDRD) 41 mL/min [facility] ([place] [facility]) <content>CHRONIC KIDNEY DISEASE STAGING PER NKF</content>
<content></content>
<content>STAGE I & II GFR >= 60 NORMAL TO MILDLY DECREASED</content>
<content>STAGE III GFR 30-59 MODERATELY DECREASED</content>
<content>STAGE IV GFR 15-29 SEVERELY DECREASED</content>
<content>STAGE V GFR <15 VERY LITTLE GFR LEFT</content>
<content>ESRD GFR <15 ON SCRIPT SUPERVISOR</content>
<content></content> ID Date Data Source [id number] 12/19/2019 02:28:00 PM EDT [facility] ([facility]) Name Value Range Interpretation Code Description Data Amber rce(s) Supporting Document(s) Erythrocyte sedimentation rate by Westergren method 55 mm/hr 0-15 [facility] ([place] [facility]) ID Date Data Source [id number] 12/19/2019 02:28:00 PM EDT [facility] Name Value Range Interpretation Code Description Data Amber rce(s) Supporting Document(s) Leukocytes [#/volume] in Blood by Automated count 10.8 x10*3/UL 4.1-1 0.9 [facility] ([facility]) Erythrocytes [#/volume] in Blood by Automated count 3.41 x10*6/UL 4.2 0-6.30 [facility] ([facility]) Hemoglobin [Mass/volume] in Blood 9.7 g/dL 12.0-18.0 [facility] ([place] [facility]) NOTE: RESULT VERIFIED. MCV 88.7 fL 80.0-97.0 [facility] ([facility]) MCH 28.6 pg 26.0-32.0 [facility] ([facility]) Hematocrit [Volume Fraction] of Blood by Automated count 30.3 % 3 7.0-51.0 [facility] ([place] [facility]) Erythrocyte distribution width [Ratio] by Automated count 17.2 % 11.6-13.7 [facility] ([facility]) Platelets [#/volume] in Blood by Automated count 530 x10*3/UL 140-440 [facility] ([place] [facility]) MCHC 32.2 g/dL 31.0-38.0 [facility] ([facility]) MPV 7.0 FL 7.8-11.0 [facility] ([facility]) Mid % 7.6 % 1.7-9.3 [facility] ([facility]) Lymph % 21.6 % 10.0-58.5 [facility] ([facility]) Mid # 0.8 x10*3/UL 0.1-0.6 [facility] ([facility]) Neut % 70.8 % 37.0-92.0 [facility] ([facility]) Lymph # 2.3 x10*3/UL 0.6-4.1 [facility] ([facility]) Neut # 7.7 x10*3/UL 2.0-7.8 [facility] ([facility]) ID Date Data Source [id number] 10/22/2019 02:22:00 PM EDT [facility] ([facility]) Name Value Range Interpretation Code Description Data Amber rce(s) Supporting Document(s) Cyclic citrullinated peptide IgG Ab [Units/volume] in Serum or Plasma 9 units 0-19 [facility] ([place] [facility]) <content>Negative <20</con tent>
<content>Weak positive 20 - 39</content>
<content>Moderate positive 40 - 59</content>
<content>Strong positive >59</content>
<content>Performed at: [facility]</content>
<content>[address], [place] [id number]</content>
<content>[address] [employer] Officer: Trevin Hardin MD, Phone: [phone]</content>
<content></content> ID Date Data Source [id number] 10/22/2019 02:22:00 PM EDT [facility] ([facility]) Name Value Range Interpretation Code Description Data Amber rce(s) Supporting Document(s) Glucose [Mass/volume] in Serum or Plasma 131 mg/dL 74-99 [facility] ([facility]) 100-125 mg/dL PRE-DIABETES/FASTING >126 mg/dL DIABETES/FASTING Creatinine 1.9 mg/dL 0.6-1.3 [facility] [facility] Urea nitrogen [Mass/volume] in Serum or Plasma 17 mg/dL 7-18 [facility] ([facility]) Chloride [Moles/volume] in Serum or Plasma 103 meq/L 98-107 [facility] ([facility]) Carbon dioxide, total [Moles/volume] in Serum or Plasma 25 meq/L 21 -32 [facility] ([facility]) Sodium [Moles/volume] in Serum or Plasma 139 meq/L 136-145 [facility] ([facility]) Potassium [Moles/volume] in Serum or Plasma 3.7 meq/L 3.5-5.1 [facility] ([facility]) Glomerular filtration rate/1.73 sq M pre dicted among blacks [Volume Rate/Area] in Serum or Plasma by Creatinine-based formula (MDRD) 31 mL/min [facility] ([facility]) <content>CHRONIC KIDNEY DISEASE STAGING PER NKF</content>
<content></content>
<content>STAGE I & II GFR >= 60 NORMAL TO MILDLY DECREASED</content>
<content>STAGE III GFR 30-59 MODERATELY DECREASED</content>
<content>STAGE IV GFR 15-29 SEVERELY DECREASED</content>
<content>STAGE V GFR <15 VERY LITTLE GFR LEFT</content>
<content>ESRD GFR <15 ON SCRIPT SUPERVISOR</content>
<content></content> Calcium [Mass/volume] in Serum or Plasma 8.3 mg/dL 8.5-10.1 [facility] [facility] Glomerular filtration rate/1.73 sq M pre dicted among non-blacks [Volume Rate/Area] in Serum or Plasma by Creatinine-based formula (MDRD) 26 mL/min [facility] [facility] ID Date Data Source [id number] 10/22/2019 02:22:00 PM EDT [facility] ([facility]) Name Value Range Interpretation Code Description Data Amber rce(s) Supporting Document(s) Erythrocyte sedimentation rate by Westergren method 55 mm/hr 0-15 [facility] [facility] ID Date Data Source [id number] 10/22/2019 02:22:00 PM EDT [facility] ([facility] Name Value Range Interpretation Code Description Data Amber rce(s) Supporting Document(s) Erythrocytes [#/volume] in Blood by Automated count 3.58 x10*6/UL 4.2 0-6.30 [facility] ([facility]) Leukocytes [#/volume] in Blood by Automated count 14.0 x10*3/UL 4.1-1 0.9 [facility] ([facility]) NOTE: RESULT VERIFIED. MCH 28.5 pg 26.0-32.0 [facility] ([place] [facility]) Hematocrit [Volume Fraction] of Blood by Automated count 30.5 % 3 7.0-51.0 [facility] ([facility]) Hemoglobin [Mass/volume] in Blood 10.2 g/dL 12.0-18.0 [facility] ([facility]) MCV 85.0 fL 80.0-97.0 [facility] ([facility]) MCHC 33.5 g/dL 31.0-38.0 [facility] ([facility]) Platelets [#/volume] in Blood by Automated count 551 x10*3/UL 140-440 [facility] ([facility]) Erythrocyte distribution width [Ratio] by Automated count 15.5 % 11.6-13.7 [facility] ([facility]) Lymph % 17.5 % 10.0-58.5 [facility] ([place] [facility] Neut % 77.4 % 37.0-92.0 [facility] ([place] [facility]) MPV 7.6 FL 7.8-11.0 [facility] ([place] [facility] Mid % 5.1 % 1.7-9.3 [facility] ([place] [facility]) Neut # 10.9 x10*3/UL 2.0-7.8 [facility] ([facility]) Lymph # 2.4 x10*3/UL 0.6-4.1 [facility] ([facility]) Mid # 0.7 x10*3/UL 0.1-0.6 [facility] ([facility]) ID Date Data Source [id number] 09/17/2019 02:25:00 PM EDT [facility] ([facility]) Name Value Range Interpretation Code Description Data Amber rce(s) Supporting Document(s) Urea nitrogen [Mass/volume] in Serum or Plasma 16 mg/dL 7-18 [facility] ([facility]) Sodium [Moles/volume] in Serum or Plasma 138 meq/L 136-145 [facility] ([facility]) Creatinine 1.8 mg/dL 0.6-1.3 [facility] ([facility]) Glucose [Mass/volume] in Serum or Plasma 123 mg/dL 74-99 [facility] ([facility]) 100-125 mg/dL PRE-DIABETES/FASTING >126 mg/dL DIABETES/FASTING Carbon dioxide, total [Moles/volume] in Serum or Plasma 26 meq/L 21 -32 [facility] ([facility]) Potassium [Moles/volume] in Serum or Plasma 3.6 meq/L 3.5-5.1 [facility] ([facility]) Calcium [Mass/volume] in Serum or Plasma 8.3 mg/dL 8.5-10.1 [facility] ([facility]) Chloride [Moles/volume] in Serum or Plasma 103 meq/L 98-107 [facility] ([facility]) Aspartate aminotransferase [Enzymatic activity/volume] in Se rum or Plasma 8 U/L 15-37 [facility] ([facility]) Alanine aminotransferase [Enzymatic activity/volume] in Seru m or Plasma 11 U/L 12-78 [facility] ([facility]) Alkaline phosphatase isoenzyme [Units/volume] in Serum or Pl asma 96 mg/dL 46-116 [facility] ([facility]) Total Bilirubin 0.2 mg/dL 0.2-1.0 [facility] ([facility]) Albumin [Mass/volume] in Serum or Plasma 2.9 g/dL 3.4-5.0 [facility] ([facility]) Proteinase 3 Ab [Units/volume] in Serum 7.9 g/dL 6.4-8.2 [facility] ([facility]) A/G Ratio 0.58 CALC 1.00-1.90 [facility] ([place] [facility]) Glomerular filtration rate/1.73 sq M pre dicted among non-blacks [Volume Rate/Area] in Serum or Plasma by Creatinine-based formula (MDRD) 28 mL/min [facility] ([facility]) Glomerular filtration rate/1.73 sq M pre dicted among blacks [Volume Rate/Area] in Serum or Plasma by Creatinine-based formula (MDRD) 33 mL/min MEDENT ([facility]) <content>CHRONIC KIDNEY DISEASE STAGING PER NKF</content>
<content></content>
<content>STAGE I & II GFR >= 60 NORMAL TO MILDLY DECREASED</content>
<content>STAGE III GFR 30-59 MODERATELY DECREASED</content>
<content>STAGE IV GFR 15-29 SEVERELY DECREASED</content>
<content>STAGE V GFR <15 VERY LITTLE GFR LEFT</content>
<content>ESRD GFR <15 ON SCRIPT SUPERVISOR</content>
<content></content> ID Date Data Source [id number] 09/17/2019 02:25:00 PM EDT MEDENT ([facility]) Name Value Range Interpretation Code Description Data Amber rce(s) Supporting Document(s) Creatine kinase [Enzymatic activity/volume] in Serum or Plasma 40 U /L 26-192 MEDENT ([facility]) ID Date Data Source [id number] 09/17/2019 02:24:00 PM EDT MEDENT ([facility]) Name Value Range Interpretation Code Description Data Amber rce(s) Supporting Document(s) Myoglobin Screen, Urine Laboratory test result [facility] ([facility]) ID Date Data Source [id number] 09/17/2019 02:24:00 PM EDT MEDENT ([facility]) Name Value Range Interpretation Code Description Data Amber rce(s) Supporting Document(s) Color, Urine Laboratory test result MEDE NT ([facility]) Appearance, Urine Laboratory test result [facility] ([facility]) Specific Benson Urine Auto 1.014 1.002-1.035 [facility] ([facility]) Protein, Urine Auto Laboratory test result [facility] ([facility]) PH,Urine 5.0 units 5.0-9.0 [facility]) Glucose, Urine (Ua) Auto Laboratory test result MEDENT ([facility]) Ketone, Urine Auto Laboratory test result MEDENT ([facility]) Bilirubin, Urine Auto Laboratory test result [facility] ([facility]) Urobilinogen, Urine Auto 0.2 mg/dL 0.0-2.0 MEDEN T ([facility]) Leukocyte Esterase, Urine Auto Laboratory test result MEDENT ([facility]) WBC, Urine Auto 7 /HPF 0-3 MEDENT ([facility]) Blood, Urine Blood Laboratory test result MED[facility] ([facility]) Nitrite, Urine Auto Laboratory test result MEDENT ([facility]) Bacteria, Urine Auto Laboratory test result [facility] ([facility]) Squamous Epithelial Cell Ur AU 2 /HPF 0-6 [facility] ([facility]) RBC, Urine Auto 4 /HPF 0-3 MEDENT ([facility]) Transitional Epithelial Auto Laboratory test result MED[facility] ([facility]) Hyaline Cast, Urine Auto 0 /LPF 0-1 MEDEN T ([facility]) Mucus, Urine Laboratory test result MEDE NT ([facility]) ID Date Data Source [id number] 09/06/2019 02:22:00 PM EST [facility]) Name Value Range Interpretation Code Description Data Amber rce(s) Supporting Document(s) PTT Lupus Type Anticoag Screen 1.1 0-1.2 [facility] ([facility]) RESULT IS LESS THAN 1.2, [...] a specific inhibitor. ID Date Data Source [id number] 09/06/2019 02:22:00 PM EST MEDENT ([facility]) Name Value Range Interpretation Code Description Data Amber rce(s) Supporting Document(s) Cyclic citrullinated peptide IgG Ab [Units/volume] in Serum or Plasma 9 units 0-19 [facility] ([facility]) <content>Negative <20</con tent>
<content>Weak positive 20 - 39</content>
<content>Moderate positive 40 - 59</content>
<content>Strong positive >59</content>
<content>Performed at: - [facility]</content>
<content>[address] [place] [id number]</content>
<content>[employer] [address] [employer] Officer: Trevin Hardin MD, Phone: [phone]</content>
<content></content> ID Date Data Source [id number] 09/06/2019 02:18:00 PM EST MEDENT ([facility]) Name Value Range Interpretation Code Description Data Amber rce(s) Supporting Document(s) Glucose [Mass/volume] in Serum or Plasma 130 mg/dL 74-99 MEDENT ([facility]) 100-125 mg/dL PRE-DIABETES/FASTING >126 mg/dL DIABETES/FASTING Urea nitrogen [Mass/volume] in Serum or Plasma 18 mg/dL 7-18 MEDENT ([facility]) Potassium [Moles/volume] in Serum or Plasma 3.8 meq/L 3.5-5.1 MEDENT ([facility]) Creatinine 2.0 mg/dL 0.6-1.3 MED[facility] ([facility] Sodium [Moles/volume] in Serum or Plasma 138 meq/L 136-145 MEDENT ([facility]) Carbon dioxide, total [Moles/volume] in Serum or Plasma 23 meq/L 21 -32 MEDENT ([facility]) Chloride [Moles/volume] in Serum or Plasma 103 meq/L 98-107 MEDENT ([facility]) Calcium [Mass/volume] in Serum or Plasma 8.4 mg/dL 8.5-10.1 MEDENT ([facility]) Glomerular filtration rate/1.73 sq M pre dicted among non-blacks [Volume Rate/Area] in Serum or Plasma by Creatinine-based formula (MDRD) 24 mL/min MEDENT ([facility]) Glomerular filtration rate/1.73 sq M pre dicted among blacks [Volume Rate/Area] in Serum or Plasma by Creatinine-based formula (MDRD) 30 mL/min MEDENT ([facility]) <content>CHRONIC KIDNEY DISEASE STAGING PER NKF</content>
<content></content>
<content>STAGE I & II GFR >= 60 NORMAL TO MILDLY DECREASED</content>
<content>STAGE III GFR 30-59 MODERATELY DECREASED</content>
<content>STAGE IV GFR 15-29 SEVERELY DECREASED</content>
<content>STAGE V GFR <15 VERY LITTLE GFR LEFT</content>
<content>ESRD GFR <15 ON SCRIPT SUPERVISOR</content>
<content></content> ID Date Data Source [id number] 09/06/2019 02:18:00 PM EST MEDENT ([facility]) Name Value Range Interpretation Code Description Data Amber rce(s) Supporting Document(s) Leukocytes [#/volume] in Blood by Automated count 10.4 x10*3/UL 4.1-1 0.9 MEDENT ([facility]) Erythrocytes [#/volume] in Blood by Automated count 3.79 x10*6/UL 4.2 0-6.30 MEDENT ([facility]) Hemoglobin [Mass/volume] in Blood 10.8 g/dL 12.0-18.0 MEDENT ([facility]) Hematocrit [Volume Fraction] of Blood by Automated count 33.2 % 3 7.0-51.0 MEDENT ([facility]) MCV 87.6 fL 80.0-97.0 [facility] MCHC 32.6 g/dL 31.0-38.0 [facility] ([facility]) MCH 28.5 pg 26.0-32.0 MEDENT ([facility]) Platelets [#/volume] in Blood by Automated count 455 x10*3/UL 140-440 MEDENT ([facility]) Erythrocyte distribution width [Ratio] by Automated count 15.4 % 11.6-13.7 MEDENT ([facility]) MPV 7.5 FL 7.8-11.0 [facility] ([facility]) Lymph % 17.2 % 10.0-58.5 [facility] ([facility]) Mid % 6.2 % 1.7-9.3 MEDENT ([facility]) Mid # 0.8 x10*3/UL 0.1-0.6 MEDENT ([facility]) Neut # 7.9 x10*3/UL 2.0-7.8 MEDENT ([facility]) Lymph # 1.7 x10*3/UL 0.6-4.1 MEDENT ([facility]) Neut % 76.6 % 37.0-92.0 [facility]) ID Date Data Source [id number] 09/02/2019 12:48:00 PM EST MEDENT ([facility]) Name Value Range Interpretation Code Description Data Amber rce(s) Supporting Document(s) Antinuclear Antibodies Laboratory test result [facility] ([facility]) Performed at: [facility] [address] [id number] [address] Officer: Jillian Miner MD, Phone: [phone] ID Date Data Source [id number] 09/02/2019 12:48:00 PM EST MED[facility] ([facility]) Name Value Range Interpretation Code Description Data Amber rce(s) Supporting Document(s) Rheumatoid Factor Quant 48.1 IU/ml MED T ([facility]) <content>note:<nlbl:demographic_changed></content>
<content>note:<nlbl:demog raphic_changed></content>
<content>note:<nlbl:demographic_changed></content>
<content></content> Erythrocyte sedimentation rate by Westergren method 65 mm/hr 0-30 [facility] ([facility]) Bacteria identified in Blood by Culture Laboratory test result [facility] ([facility]) No growth after 72 hours [...] by High sensitivity method 4.23 mg/dL 0.00-0.30 [facility] ([facility] ) <content>note:<nlbl:demographic_changed></content>
<content>note:<nlbl:demog raphic_changed></content>
<content>note:<nlbl:demographic_changed></content>
<content></content> ID Date Data Source [id number] 09/02/2019 12:48:00 PM EST MEDENT ([facility]) Name Value Range Interpretation Code Description Data Amber rce(s) Supporting Document(s) CPK Creatine Phosphokinase 87 U/L 26-192 MED ENT ([facility]) MB/CK Relative Index 1.95 [facility] ([facility]) <content>DIAGNOSIS CRITERIA</content>
<content>MMB ng/ml Relative Index (RI)</content>
<content>NON-AMI < or = 5 N/A</content>
<content>BLANC ZONE > 5 < or = 4</content>
<content>AMI > 5 > 4</content>
<content></content> CK-MB Value Mass 1.7 ng/mL [facility] ([facility]) Troponin I Laboratory test result [facility] ([facility]) <content>Troponin I Reference Interval f or Siemens Osborne LOCI:</content>
<content></content>
<content>99th Percentile= 0.00-0.045 ng/ml</content>
<content></content>
<content>Risk Stratification:</content>
<content><= 0.10 ng/ml Decreased Risk for Adverse Clinical</content>
<content>Events.</content>
<content>0.10-1.50 ng/ml Increased Risk for Adverse Clinical</content>
<content>Events. Evaluation of additional</content>
<content>criterion and/or repeat testing in 2-6</content>
<content>hours is suggested to rule out myocardial</content>
<content>damage.</content>
<content>>= 1.50 ng/ml Indicative of Myocardial Injury.</content>
<content></content> ID Date Data Source [id number] 09/02/2019 12:48:00 PM EST [facility] ([facility]) Name Value Range Interpretation Code Description Data Abmer rce(s) Supporting Document(s) Lactate [Mass/volume] in Serum or Plasma 1.6 mmol/L 0.4-2.0 [facility] ([facility]) <content>note:<nlbl:demographic_changed> </content>
<content>Y/N query for Sepsis Lactate Rule: Y</content>
<content></content> ID Date Data Source [id number] 09/02/2019 12:48:00 PM EST MEDENT ([facility]) Name Value Range Interpretation Code Description Data Amber rce(s) Supporting Document(s) Glucose, Fasting 88 mg/dL 70-100 [facility] ([facility]) Blood Urea Nitrogen 15 mg/dL 7-18 [facility] ([facility]) Sodium Level 138 meq/L 136-145 [facility] ([facility]) Creatinine For GFR 1.66 mg/dL 0.55-1.30 [facility] ([facility]) Glomerular Filtration Rate 32.2 MED ENT ([facility]) <content>Units are mL/min/1.73 m2</content>
<content></content>
<content>Chronic Kidney Disease Staging per NKF:</content>
<content></content>
<content>Stage I & II GFR >=60 Normal to Mildly Decreased</content>
<content>Stage III GFR 30- 59 Moderately Decreased</content>
<content>Stage IV GFR 15-29 Severely Decreased</content>
<content>Stage V GFR <15 Very Little GFR Left</content>
<content>ESRD GFR <15 on SCRIPT SUPERVISOR</content>
<content></content> Carbon Dioxide Level 23 meq/L 21-32 [facility] Anion Gap 7 meq/L 8-16 [facility]) Potassium Serum 4.3 meq/L 3.5-5.1 [facility] ([facility]) Chloride Level 108 meq/L 98-107 [facility] ([facility]) Calcium Level 8.0 mg/dL 8.8-10.2 MED[facility] ([facility]) ID Date Data Source [id number] 09/02/2019 12:48:00 PM EST MEDENT ([facility]) Name Value Range Interpretation Code Description Data Amber rce(s) Supporting Document(s) White Blood Count 12.6 10 4.0-10.0 [facility] Hematocrit 36.0 % 36.0-47.0 [facility]) Red Blood Count 3.85 10 4.00-5.40 [facility] ([facility]) Hemoglobin 10.8 g/dL 12.0-15.5 [facility]) Red Cell Distribution Width 16.1 % 11.5-14.5 ME DENT ([facility]) Mean Corpuscular HGB Conc 30.0 g/dL 32.0-36.5 MEDE NT ([facility]) Mean Corpuscular Hemoglobin 28.1 pg 27.0-33.0 ME DENT ([facility]) Mean Corpuscular Volume 93.5 fl 80.0-96.0 [facility] ([facility]) Lymph % 16.7 % 24.0-44.0 [facility]) Platelet Count, Automated 481 10 150-450 MEDE NT ([facility]) Neutrophils % 64.1 % 36.0-66.0 [facility] ([facility]) Baso % 0.7 % 0.0-1.0 [facility]) Eos % 12.8 % 0.0-3.0 [facility] ([facility]) Boyle % 5.2 % 0.0-5.0 [facility]) Lymph # 2.1 10 1.5-5.0 [facility]) Neutrophils # 8.1 10 1.5-8.5 [facility] ([facility]) Immature Granulocyte % 0.5 % 0-3.0 MED[facility] ([facility]) Nucleated Red Blood Cell % 0.0 % 0-0 MED ENT ([facility]) Eos # 1.6 10 0.0-0.5 [facility]) Baso # 0.1 10 0.0-0.2 [facility] ([facility]) Boyle # 0.7 10 0.0-0.8 [facility]) ID Date Data Source [id number] 08/07/2019 10:04:30 PM EST [facility] Name Value Range Interpretation Code Description Data Amber rce(s) Supporting Document(s) &PDF [facility] ARJMFz4jNiXVWoJe00/ZCPnnBMGgb6KxWGrvNAd2BFchGJBhP9DbbPohQYESPXGYF54jWZ8SBMWYIYVe yKE [file] uATM4bvFScWBdNyrV7vym/6isYC/I6DP9UcWXI1+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 [file] +RAwWlABMIUVBbQQPzJR6Ig0d0r/ArYFkQsM9SNxf3fb9KyAZE3DJfZCH7UpuyiGzU4lP+ZkEKGl+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 [file] AgICAgICAgICAgICAgICAgICAgICAgICAgICAgICAgICAgICAgICAgICAgICAgICAgICAgICAgICAgIC AgICAgICAgICANCiAgICAgICAgICAgICAgICAgICAg ICAgICAgICAgICAgICAgICAgICAgICAgICAgICAgICAgICAgICAgICAgICAgICAgICAgICAgICAgICAg ICAgICAgICAgICAgICAgICAgICANCiAgICAgICAgICAgICAgICAgICAgICAgICAgICAgICAgICAgICAg ICAgICAgICAgICAgICAgICAgICAgICAgICAgICAgIC AgICAgICAgICAgICAgICAgICAgICAgICAgICAgICANCiAgICAgICAgICAgICAgICAgICAgICAgICAgIC AgICAgICAgICAgICAgICAgICAgICAgICAgICAgICAgICAgICAgICAgICAgICAgICAgICAgICAgICAgIC AgICAgICAgICAgICANCiAgICAgICAgICAgICAgICAg ICAgICAgICAgICAgICAgICAgICAgICAgICAgICAgICAgICAgICAgICAgICAgICAgICAgICAgICAgICAg ICAgICAgICAgICAgICAgICAgICAgICANCiAgICAgICAgICAgICAgICAgICAgICAgICAgICAgICAgICAg ICAgICAgICAgICAgICAgICAgICAgICAgICAgICAgIC AgICAgICAgICAgICAgICAgICAgICAgICAgICAgICAgICANCiAgICAgICAgICAgICAgICAgICAgICAgIC AgICAgICAgICAgICAgICAgICAgICAgICAgICAgICAgICAgICAgICAgICAgICAgICAgICAgICAgICAgIC AgICAgICAgICAgICAgICANCiAgICAgICAgICAgICAg ICAgICAgICAgICAgICAgICAgICAgICAgICAgICAgICAgICAgICAgICAgICAgICAgICAgICAgICAgICAg ICAgICAgICAgICAgICAgICAgICAgICAgICANCiAgICAgICAgICAgICAgICAgICAgICAgICAgICAgICAg ICAgICAgICAgICAgICAgICAgICAgICAgICAgICAgIC AgICAgICAgICAgICAgICAgICAgICAgICAgICAgICAgICAgICANCiAgICAgICAgICAgICAgICAgICAgIC AgICAgICAgICAgICAgICAgICAgICAgICAgICAgICAgICAgICAgICAgICAgICAgICAgICAgICAgICAgIC AgICAgICAgICAgICAgICAgICANCjw/tXPfM1ygwFRh fmA1V7jqYf3QXe5QVY1dz2JwHJLfWQdakiNqIobXKuOhLMVpKshKPlo6PYowYR4TwXUpX4JlK5UaFAjc XD3YWAYiZXGxqBDzVUEzZWPsGkF6KHUaEGqiQS0LtHPsBDddVCIbQZSwXmUvKRNcEA7KOYTjL071odKx Og7AHg4CIgKpRE2uvk6IGdOyPGXgBxhQRlo4TTjoEW 7GaRXcW4NgzKFnz7uYGoOsD5RXRKTvAUQyBn1MGMLzQiJnALVvANrmCE1dJNVoGOKQkGnolqC7PC9YZV 4repAdYQ2JQwVyOq5yQa8KEtBoO0PkR0XjJIIlCGLCRMtdIN2FKQPgMYL6AMStScSxPMOOVwPvC85nVY 7KA2Ghd69xRzU2JVGdKtRcSZggLW16yXseidQkrRTh eZxzRK5ITl3+UDnnlxFhBdtZJcwnKVBXRaQmZxSZUbWvSZIyYTXgEDHyGrB8KxPaMe7EVYDxLCUbELTa DiJuWGGeMMQfGUegQSDtFEe9VdAtGFAaAVVbTU1NExSlFGHsZPgnQYNyQRQfJMPqpj7YXNMnAATuMZK9 YgDoZXHhBNJuDKgiTWKvYMFxRLZ0HMOkCLRjYK8QBb ZoGVUpCGP7HaZmBLFbIWXeir5JQSKxHCTdSAN2LVRjBCSiZKOlFOpvGKBzCXG6URd3ZGNwOADmIJ9SXo YlIBWvVQI8FqRhMGHyCMEinu5UCJFlZEXzWdgePyNsFXHuWRNyVLxuBJYcDOC2UOHgKLYmWTDyRV0OMn IhGKAnCIc6XPPkOFCjDYYvgr0PKJYoCSUnSCC1LMJa FLOwQEZoKPahWIAlWXI6QjUjFYVjGCNaFC4VCdRuKPSaBXHfQHscVNHeCMKbtj1YLLYbHZUiPdZsLmNd NWYzFDGdTEnqJGGyFTSmKdQ0CPWhDNFiCW8HMkLvFDWiZXC3NCwnGMOaJIJxci4PUXFrMVPnNLImJPUc LMAtGEJjGBanYHDbEWW3EOq2ZRCuYOYcJL8ARbLaRB IdXQGyWaXhDIUlOCSbjb3CTPNbTZIvLNMfJEKhOBIcCOYyAPteOPAjHITpPJV3JTYxTJRpXP0AQjDuFZ EbWzXlBqmwLXNaCUZrpi3GJATcAJSqMVE5PQYnCPYhVSKuYOumFEHnRCX1NPFzVCAqYIKaEU2UYcGcQK PmETHsEUkpQXUjUZEmuo5TMGHwJJS2CeY4DXYkJTLg FRImAXqjXSPlMFt8XIB7YWRtEHNmBB5YGjRbWGLyRMZrEVddRQXuZEXxno8WIBOnGPG5DgI7OTWbAOAa VVVfZBcmRARaAGl9BRZxZDFkPRMuHD7QOtVsFKHlBWlfQStzXFOuYRSfze1DrPQtgOlffc2TXQwSSx0O mHroZAX7VMuiEh6kcGJwZlRmIJGSFv9YplLfHRXuOU TOAKyeLEGzCMNiGteiDfL3MGf7GjQkEKx4B2QpUPMxQOHlEGSrZFFaAhV0RIJiJ2T0ZvnfXZvkXOS8TG vmROH9TeTfANVtUmW7VgN+UJ9yXEy+Fx2Iw8EujcB3dmNsKTr7OKT5IR9HLZARO4ESEz== Procedure Social History Code Duration Value Status Description Data Source(s ) Smoking 07/13/2020 12:00:00 AM EST Current Smoker completed Curre nt Smoker eCW1 ([facility]) Smoking 06/24/2020 12:00:00 AM EST Current Smoker completed Curre nt Smoker eCW1 ([facility]) Alcohol intake 06/12/2020 12:00:00 AM EST Never completed [facility] Smoking 06/12/2020 12:00:00 AM EST Current every day smoker co mpleted Current every day smoker [facility] Smoking 06/04/2020 12:00:00 AM EST Current Smoker completed Curre nt Smoker eCW1 ([facility]) Smoking 06/04/2020 12:00:00 AM EST Current Smoker completed Curre nt Smoker eCW1 ([facility]) Smoking 06/04/2020 12:00:00 AM EST Current Smoker completed Curre nt Smoker eCW1 ([facility]) Smoking 05/19/2020 12:00:00 AM EST Current Smoker completed Curre nt Smoker eCW1 ([facility]) Smoking 05/19/2020 12:00:00 AM EST Current Smoker completed Curre nt Smoker eCW1 ([facility]) Smoking 05/05/2020 12:00:00 AM EST Current Smoker completed Curre nt Smoker eCW1 ([facility]) Smoking 05/05/2020 12:00:00 AM EST Current Smoker completed Curre nt Smoker eCW1 ([facility]) Smoking 01/21/2020 12:00:00 AM EDT Current Smoker completed Curre nt Smoker eCW1 ([facility]) Vital Signs ID Date Data Source UNK Name Value Range Interpretation Code Description Data Source(s) Diastolic blood pressure 68 mm[Hg] 68 mm[Hg] eCW1 ([facility]) Systolic blood pressure 128 mm[Hg] 128 mm[Hg] e CW1 ([facility]) Body temperature 98.2 [degF] 98.2 [degF] eCW1 ( [facility]) Respiratory rate 18 /min 18 /min eCW1 ([facility]) Heart rate 76 /min 76 /min eCW1 ([facility]) Body mass index (BMI) [Ratio] 28.11 kg/m2 28.11 kg/m2 W1 ([facility]) Body height 64 [in_i] 64 [in_i] eCW1 ([facility]) Body weight 74.3 kg 74.3 kg eCW1 ([facility]) Body weight 163.8 [lb_av] 163.8 [lb_av] eCW1 ([facility] Diastolic blood pressure 68 mm[Hg] 68 mm[Hg] eCW1 ([facility]) Systolic blood pressure 128 mm[Hg] 128 mm[Hg] e CW1 ([facility]) Body temperature 97.2 [degF] 97.2 [degF] eCW1 ( [facility]) Respiratory rate 20 /min 20 /min eCW1 ([facility]) Heart rate 105 /min 105 /min eCW1 ([facility]) Body mass index (BMI) [Ratio] 27.94 kg/m2 27.94 kg/m2 eCW1 ([facility]) Body height 64 [in_i] 64 [in_i] eCW1 ([facility]) Body weight 73.8 kg 73.8 kg eCW1 ([facility]) Body weight 162.8 [lb_av] 162.8 [lb_av] eCW1 ([facility]) Body temperature 96.4 [degF] 96.4 [degF] MEDENT ([facility]) Diastolic blood pressure 74 mm[Hg] 74 mm[Hg] [facility] Systolic blood pressure 124 mm[Hg] 124 mm[Hg] [facility] Oxygen saturation in Arterial blood by Pulse oximetry 98 % 98 % [facility] Body mass index (BMI) [Ratio] 28.34 kg/m2 28.34 kg/m2 [facility] Body weight 72.576 kg 72.576 kg [facility] Heart rate 92 /min 92 /min [facility] Diastolic blood pressure 66 mm[Hg] 66 mm[Hg] eCW1 ([facility]) Systolic blood pressure 124 mm[Hg] 124 mm[Hg] e CW1 ([facility]) Body temperature 97.8 [degF] 97.8 [degF] eCW1 ( [facility]) Respiratory rate 18 /min 18 /min eCW1 ([facility]) Heart rate 64 /min 64 /min eCW1 ([facility]) Body mass index (BMI) [Ratio] 27.63 kg/m2 27.63 kg/m2 eCW1 ([facility]) Body height 64 [in_i] 64 [in_i] eCW1 ([facility]) Body weight 73.0 kg 73.0 kg eCW1 ([facility]) Body weight 161.0 [lb_av] 161.0 [lb_av] eCW1 ([facility]) Body mass index (BMI) [Ratio] 28.0 kg/m2 28.0 k g/m2 MEDENT ([facility]) Oxygen saturation in Arterial blood by Pulse oximetry 96 % 96 % MED[facility] ([facility]) RM Air Body weight 158.00 [lb_av] 158.00 [lb_av] MEDEN T ([facility]) Body height 63 [in_i] 63 [in_i] MEDENT ([facility]) 5'3" Diastolic blood pressure 82 mm[Hg] 82 mm[Hg] MEDENT ([facility]) Systolic blood pressure 138 mm[Hg] 138 mm[Hg] M EDENT ([facility]) Body temperature 96.0 [degF] 96.0 [degF] MEDENT ([facility] Body mass index (BMI) [Ratio] 27.12 kg/m2 27.12 kg/m2 eCW1 ([facility]) Body height 64 [in_i] 64 [in_i] eCW1 ([facility]) Body weight 158 [lb_av] 158 [lb_av] eCW1 ([facility]) Diastolic blood pressure 68 mm[Hg] 68 mm[Hg] eCW1 ([facility]) Systolic blood pressure 130 mm[Hg] 130 mm[Hg] e CW1 ([facility]) Body mass index (BMI) [Ratio] 27.12 kg/m2 27.12 kg/m2 eCW1 ([facility]) Body height 64 [in_i] 64 [in_i] eCW1 ([facility]) Body weight 158 [lb_av] 158 [lb_av] eCW1 ([facility]) Body temperature 97.8 [degF] 97.8 [degF] eCW1 ( [facility]) Respiratory rate 18 /min 18 /min eCW1 ([facility]) Heart rate 53 /min 53 /min eCW1 ([facility]) Body mass index (BMI) [Ratio] 26.71 kg/m2 26.71 kg/m2 eCW1 ([facility]) Body height 64 [in_i] 64 [in_i] eCW1 ([facility]) Body weight 70.6 kg 70.6 kg eCW1 ([facility]) Body weight 155.6 [lb_av] 155.6 [lb_av] eCW1 ([facility]) Body mass index (BMI) [Ratio] 28.5 kg/m2 28.5 k g/m2 MEDRICK ([facility]) Body weight 161.00 [lb_av] 161.00 [lb_av] ANITHA T ([facility]) Body height 63 [in_i] 63 [in_i] MEDRICK ([facility]) 5'3" Heart rate 63 /min 63 /min MEDRICK ([facility]) Diastolic blood pressure 56 mm[Hg] 56 mm[Hg] MEDRICK ([facility]) Systolic blood pressure 102 mm[Hg] 102 mm[Hg] M EDENT ([facility]) Body mass index (BMI) [Ratio] 28.3 kg/m2 28.3 k g/m2 MEDENT ([facility]) Oxygen saturation in Arterial blood by Pulse oximetry 97 % 97 % MEDRICK ([facility]) Air Body weight 160.00 [lb_av] 160.00 [lb_av] ANITHA T ([facility]) Body height 63 [in_i] 63 [in_i] MEDENT ([facility]) 5'3" Heart rate 73 /min 73 /min [facility] ([facility]) Diastolic blood pressure 60 mm[Hg] 60 mm[Hg] [facility] ([facility]) Systolic blood pressure 118 mm[Hg] 118 mm[Hg] [facility] ([facility]) Body weight 72.746 kg 72.746 kg [facility] ([facility]) Body mass index (BMI) [Ratio] 27.5 kg/m2 27.5 k g/m2 [facility] ([facility]) Body weight 160.38 [lb_av] 160.38 [lb_av] [facility] ([facility]) Body height 64 [in_i] 64 [in_i] [facility] ([facility]) 5'4" Body temperature 98.1 [degF] 98.1 [degF] [facility] ([facility]) Diastolic blood pressure 87 mm[Hg] 87 mm[Hg] [facility] ([facility]) Systolic blood pressure 147 mm[Hg] 147 mm[Hg] [facility] ([facility]) Body mass index (BMI) [Ratio] 28.2 kg/m2 28.2 k g/m2 [facility] ([facility]) Oxygen saturation in Arterial blood by Pulse oximetry 98 % 98 % [facility] ([facility]) Air Body weight 159.00 [lb_av] 159.00 [lb_av] [facility] ([facility]) Body height 63 [in_i] 63 [in_i] [facility] ([facility]) 5'3" Heart rate 86 /min 86 /min [facility] ([facility]) Diastolic blood pressure 84 mm[Hg] 84 mm[Hg] [facility] ([facility]) Systolic blood pressure 130 mm[Hg] 130 mm[Hg] [facility] ([facility]) Body weight 73.540 kg 73.540 kg [facility] ([facility]) Body mass index (BMI) [Ratio] 27.8 kg/m2 27.8 k g/m2 [facility] ([facility]) Body weight 162.12 [lb_av] 162.12 [lb_av] [facility] ([facility]) Body height 64 [in_i] 64 [in_i] [facility] ([facility]) 5'4" Diastolic blood pressure 62 mm[Hg] 62 mm[Hg] [facility] ([facility]) Systolic blood pressure 108 mm[Hg] 108 mm[Hg] [facility] ([facility]) Body mass index (BMI) [Ratio] 28.3 kg/m2 28.3 k g/m2 [facility] ([facility]) Oxygen saturation in Arterial blood by Pulse oximetry 98 % 98 % [facility] ([facility]) RM Air Body weight 160.00 [lb_av] 160.00 [lb_av] [facility] ([facility]) Body height 63 [in_i] 63 [in_i] [facility] ([facility]) 5'3" Heart rate 84 /min 84 /min [facility] ([facility]) Diastolic blood pressure 90 mm[Hg] 90 mm[Hg] [facility] ([facility]) Systolic blood pressure 140 mm[Hg] 140 mm[Hg] [facility] ([facility]) Body mass index (BMI) [Ratio] 29.6 kg/m2 29.6 k g/m2 [facility] ([facility]) Oxygen saturation in Arterial blood by Pulse oximetry 97 % 97 % [facility] ([facility]) RM Air Body weight 167.00 [lb_av] 167.00 [lb_av] [facility] ([facility]) Body height 63 [in_i] 63 [in_i] [facility] ([facility]) 5'3" Heart rate 66 /min 66 /min [facility] ([facility]) Diastolic blood pressure 84 mm[Hg] 84 mm[Hg] [facility] ([facility]) Systolic blood pressure 140 mm[Hg] 140 mm[Hg] [facility] ([facility]) Body weight 72.746 kg 72.746 kg [facility] ([facility]) Body mass index (BMI) [Ratio] 27.5 kg/m2 27.5 k g/m2 [facility] ([facility]) Body weight 160.38 [lb_av] 160.38 [lb_av] [facility] ([facility]) Body height 64 [in_i] 64 [in_i] [facility] ([facility], ) 5'4" Diastolic blood pressure 83 mm[Hg] 83 mm[Hg] [facility] ([facility]) Systolic blood pressure 152 mm[Hg] 152 mm[Hg] M [facility] ([facility]) Body mass index (BMI) [Ratio] 28.7 kg/m2 28.7 k g/m2 [facility] ([facility]) Oxygen saturation in Arterial blood by Pulse oximetry 98 % 98 % [facility] ([facility]) Body weight 162.00 [lb_av] 162.00 [lb_av] [facility] ([facility]) Body height 63 [in_i] 63 [in_i] [facility] ([facility]) 5'3" Heart rate 96 /min 96 /min [facility] ([facility]) Diastolic blood pressure 60 mm[Hg] 60 mm[Hg] [facility] ([facility]) Systolic blood pressure 126 mm[Hg] 126 mm[Hg] [facility] ([facility]) Body mass index (BMI) [Ratio] 25.6 kg/m2 25.6 k g/m2 [facility] ([facility] ) Body weight 149.00 [lb_av] 149.00 [lb_av] [facility] ([facility] ) Body height 64 [in_i] 64 [in_i] [facility] ([facility] ) 5'4" Patient Treatment Plan of Care Planned Activity Planned Date Details Description Data Source (s) Losartan Potassium 25 MG Oral Tablet 06/05/2020 12:00:00 AM EST [facility] Famotidine 40 MG Oral Tablet 05/23/2020 12:00:00 AM EST [facility] Triamcinolone Acetonide 0.001 MG/MG Topical Ointment 020 12:00:00 AM EST [facility] ([facility]) Triamcinolone Acetonide 0.001 MG/MG Topical Ointment 12:00:00 AM EST [facility] ([facility]) Triamcinolone Acetonide 0.001 MG/MG Topical Ointment 12:00:00 AM EST [facility] ([facility]) Triamcinolone Acetonide 0.001 MG/MG Topical Ointment 12:00:00 AM EST [facility] ([facility]) Furosemide 20 MG Oral Tablet 07/24/2019 12:00:00 AM EST [facility] Metoprolol Tartrate 25 MG Oral Tablet 07/10/2019 12:00:00 AM EST [facility] quetiapine 25 MG Oral Tablet 06/13/2019 12:00:00 AM EST [facility] Losartan Potassium 50 MG Oral Tablet [facility]
[2020-07-20] MEDS: MORPHINE 2 MG/ML 1ML VIAL (J2270) IV PRN (18:16)
--- NOTE | 2020-07-20 19:59 | ECGEPIP ---
[facility] - ED Test Date: 2020-07-20 Pat Name: MAHESH AQUINO Department: Room: - Gender: Female [employer]: : 1945 Requested By: MICHAEL Viveros Order Number: [id number] Reading MD: Nany Coon Measurements Intervals [place] Rate: 62 P: 52 NH: 168 QRS: 20 QRSD: 89 T: 37 QT: 448 QTc: 457 Interpretive Statements SINUS RHYTHM SIMILAR 12/31/19 Electronically Signed on 07-20-2020 19:59:38 EST by Nany Coon
[2020-07-20 20:56] VITALS: BP 163/89
[2020-07-20] MEDS ORDERED: QUEtiapine FUMARATE 25 MG TAB PO SCH (21:00)
[2020-07-20] MEDS ORDERED: PRAMIPEXOLE 1 MG TAB PO SCH (21:00)
[2020-07-20] MEDS: HEPARIN SOD (PORCINE) 5000UNITS/ML 1ML VIAL/SYRINGE SC SCH (21:11)
[2020-07-20] MEDS: GABAPENTIN 300 MG CAP PO SCH (21:12)
[2020-07-20] MEDS: DULoxetine 30 MG CAP (CYMBALTA) PO SCH (21:12)
[2020-07-20] MEDS: amLODIPine 5 MG TAB PO SCH (21:13)
--- NOTE | 2020-07-20 23:36 | REPVR ---
PROCEDURE INFORMATION: Exam: MR Lumbar Spine Without Contrast. Exam date and time: 07/20/2020 10:55 PM Age: 75 years old Clinical indication: Patient HX: Low back pain, ; additional info: R/O osteomyelitis/discitis TECHNIQUE: Imaging protocol: Multiplanar magnetic resonance images of the lumbar spine without intravenous contrast. COMPARISON: CT Spine, lumbar w/o contrast 07/20/2020 2:25 PM FINDINGS: Examination is limited by excessive patient motion. There are mild superior endplate compression fractures involving L2 and L4 with mild edema. No significant osseous retropulsion. L4 fracture is mildly progressed from 11/30/2019. There is degenerative endplate signal. No evidence of discitis/osteomyelitis. No gross epidural fluid collection. Conus medullaris terminates at L1. L1-L2: Mild disc bulge and mild facet joint arthropathy. No significant central or foraminal stenosis. L2-L3: Mild disc bulge with bilateral facet joint arthropathy. No definite significant central or foraminal stenosis. L3-L4: Mild to moderate disc bulge with bilateral facet joint arthropathy and posterior laxity of ligamentum flavum. There is wuvg-kt-thvtzwmb central canal stenosis and mild left foraminal stenosis. L4-L5: Cklw-bf-ydtcuwql disc bulge with bilateral facet joint arthropathy. Wiqj-ez-paxkxslj central canal stenosis and mild bilateral foraminal stenosis. L5-S1: Mild disc bulge with bilateral facet joint arthropathy. No significant central canal stenosis. Mild left foraminal stenosis. IMPRESSION: 1. Examination is significantly motion limited. 2. Mild superior endplate compression fracture involving L2 with mild edema, likely subacute in age. 3. Superior endplate compression fracture at L4 with interval increase loss of height since 11/30/2019. There is mild associated edema and progression is likely recent. 4. No definite discitis/osteomyelitis. Electronically signed by: Victor Manuel Luciano On 07/20/2020 23:35:13 PM
--- NOTE | 2020-07-20 23:38 | REPVR ---
PROCEDURE INFORMATION: Exam: MR Head Without Contrast Exam date and time: 07/20/2020 10:07 PM Age: 75 years old Clinical indication: Altered mental status/memory loss; Confusion or disorientation; Patient HX: AMS and weakness that has since subsided; Additional info: CVA TECHNIQUE: Imaging protocol: MR of the head without contrast. COMPARISON: CT Head without contrast 07/20/2020 12:33 PM FINDINGS: Examination is significantly motion limited. Age-related volume loss. Major vascular flow voids at the skull base are preserved. No extra-axial fluid collection. No midline shift or intracranial mass effect. Nonspecific white matter gliosis, probable chronic microvascular ischemia. Chronic left cerebellar infarct. Chronic lacunar infarcts involving the left thalamus and bilateral diaz radiata. No diffusion restriction. Visualized paranasal sinuses and mastoid air cells are clear. Minimal right mastoid effusion. IMPRESSION: 1. Examination is limited by significant patient motion. 2. No definite acute intracranial abnormality. Electronically signed by: Victor Manuel Luciano On 07/20/2020 23:38:07 PM
--- NOTE | 2020-07-20 23:41 | REPVR ---
PROCEDURE INFORMATION: Exam: MR Angiogram Head Without Contrast, Arteries Exam date and time: 07/20/2020 10:07 PM Age: 75 years old Clinical indication: Cognitive deficit; Altered mental status; Patient HX: AMS and weakness that has since subsided; Additional info: CVA TECHNIQUE: Imaging protocol: MR angiogram head without contrast. Exam focused on the arteries. 3D rendering (Not supervised by radiologist): MIP and/or 3D reconstructed images were created by the technologist. COMPARISON: MRA BRAIN W/O CONTRAST 08/23/2016 8:26 PM FINDINGS: Examination is limited by excessive patient motion. Visualized vertebral arteries are patent without occlusion or gross significant stenosis. No occlusion or significant stenosis involving the basilar artery. No large vessel occlusion or gross high-grade stenosis involving either posterior cerebral artery. Bilateral internal carotid arteries are without occlusion or gross significant stenosis. No gross large vessel occlusion involving the MCAs or ACAs. No large intracranial aneurysm is visualized. IMPRESSION: 1. Examination is significantly motion limited. 2. No gross large vessel occlusion. Electronically signed by: Victor Manuel Luciano On 07/20/2020 23:40:52 PM
--- NOTE | 2020-07-20 23:54 | REPVR ---
PROCEDURE INFORMATION: Exam: US Duplex Bilateral Extracranial Arteries Exam date and time: 07/20/2020 11:25 PM Age: 75 years old Clinical indication: Altered mental status/memory loss; Confusion or disorientation; Additional info: CVA TECHNIQUE: Imaging protocol: Real-time Duplex ultrasound scan of the bilateral carotid and vertebral arteries combining espinosa scale, color Doppler and spectral waveform analysis. Bilateral exam. COMPARISON: CT Head without contrast 07/20/2020 12:33 PM FINDINGS: Right common carotid artery: Mild heterogeneous plaque formation at the right common carotid bifurcation. Peak systolic velocity of the right common carotid artery is 110 cm/s. Right internal carotid artery: Mild heterogeneous plaque formation at the right carotid bulb. Peak systolic velocity of the right internal carotid artery is 120 cm/s. Right ICA/CCA ratio: Right ICA CCA ratio is 1.09. Right external carotid artery: No stenosis in the origin. Right vertebral artery: Normal flow within the right vertebral artery. Left common carotid artery: Mild heterogeneous plaque formation at the left common carotid bifurcation. Peak systolic velocity of the left common carotid artery is 124 cm per 2nd. Left internal carotid artery: Mild heterogeneous plaque formation at the left carotid bulb. Peak systolic velocity of the left internal carotid artery is 160 cm/s. Left ICA/CCA ratio: Left ICA CCA ratio is 1.29. Left external carotid artery: No stenosis in the origin. Left vertebral artery: Left vertebral artery is not discretely visualized. IMPRESSION: Elevated velocity at the proximal left ICA suggesting stenosis between 50% and 69%. REFERENCES: SRU CRITERIA. The degree of internal carotid artery stenosis is based on criteria defined by the Society of Radiologists in Ultrasound (SRU). Normal is no stenosis. Mild is less than 50% stenosis. Moderate is 50-69% stenosis. Severe is greater than 69% stenosis to near occlusion. Near occlusion is a markedly narrowed lumen. Total occlusion is no detectable patent lumen. Electronically signed by: Victor Manuel Luciano On 07/20/2020 23:54:11 PM
[2020-07-21] MEDS: HYDROXYCHLOROQUINE 200 MG TAB PO SCH ×2 (00:25→09:00)
[2020-07-21] MEDS: MORPHINE 2 MG/ML 1ML VIAL (J2270) IV PRN ×2 (00:28→12:11)
[2020-07-21 05:37] LABS: APPEARANCE, URINE CLEAR (CLEAR); BACTERIA, URINE AUTO NEGATIVE (NEGATIVE); BILIRUBIN, URINE AUTO NEGATIVE (NEGATIVE); BLOOD, URINE BLOOD NEGATIVE (NEGATIVE); COLOR, URINE YELLOW (YELLOW); GLUCOSE, URINE (UA) AUTO NEGATIVE (NEGATIVE); KETONE, URINE AUTO NEGATIVE (NEGATIVE); LEUKOCYTE ESTERASE, URINE AUTO TRACE (NEGATIVE); NITRITE, URINE AUTO NEGATIVE (NEGATIVE); PROTEIN, URINE AUTO NEGATIVE (NEGATIVE); RBC, URINE AUTO 3 /HPF (0-3); SPECIFIC GRAVITY URINE AUTO 1.015 (1.002-1.035); SQUAMOUS EPITHELIAL CELL UR AU 0 /HPF (0-6); UROBILINOGEN, URINE AUTO 0.2 mg/dL (0.0-2.0); WBC, URINE AUTO 1 /HPF (0-3)
[2020-07-21 06:00] VITALS: BP 127/75
[2020-07-21 07:14] LABS: HEMATOCRIT 29.2 % (36.0-47.0); HEMOGLOBIN 8.7 g/dl (12.0-15.5); MEAN CORPUSCULAR HEMOGLOBIN 26.8 pg (27.0-33.0); MEAN CORPUSCULAR HGB CONC 29.8 g/dl (32.0-36.5); MEAN CORPUSCULAR VOLUME 89.8 fl (80.0-96.0); PLATELET COUNT, AUTOMATED 428 10^3/uL (150-450); RED BLOOD COUNT 3.25 10^6/uL (4.00-5.40)
[2020-07-21 07:36] LABS: CALCIUM LEVEL 8.5 MG/DL (8.8-10.2); CREATININE FOR GFR 1.48 MG/DL (0.55-1.30); GLOMERULAR FILTRATION RATE 36.7 (>39); POTASSIUM SERUM 4.1 MEQ/L (3.5-5.1)
[2020-07-21] MEDS: HEPARIN SOD (PORCINE) 5000UNITS/ML 1ML VIAL/SYRINGE SC SCH (08:59)
[2020-07-21] MEDS: GABAPENTIN 300 MG CAP PO SCH (09:00)
[2020-07-21] MEDS ORDERED: ASPIRIN 81 MG ENTERIC TAB PO SCH (09:00)
[2020-07-21] MEDS: amLODIPine 5 MG TAB PO SCH (09:00)
[2020-07-21] MEDS ORDERED: METOPROLOL TART 25 MG TABLET PO SCH (09:00)
[2020-07-21] MEDS: DULoxetine 30 MG CAP (CYMBALTA) PO SCH (09:00)
[2020-07-21] MEDS ORDERED: LOSARTAN 25 MG TAB PO SCH (09:00)
[2020-07-21] MEDS ORDERED: FAMOTIDINE 20 MG TAB PO SCH (09:00)
[2020-07-21] MEDS ORDERED: ATORVASTATIN 20 MG TAB PO SCH (09:00)
[2020-07-21 09:01] VITALS: BP 128/76
[2020-07-21] MEDS ORDERED: MIRALAX *UNIT DOSE* 17GM PACKET PO PRN (12:45)
[2020-07-21] MEDS ORDERED: TRAM50TA2 PO (12:46)
[2020-07-21] MEDS ORDERED: traMADol 50 MG TAB PO PRN (13:00)
[2020-07-21] MEDS ORDERED: PERCOCET 5MG/325MG TAB PO PRN (13:00)
[2020-07-21 14:00] VITALS: BP 101/57
[2020-07-21] MEDS ORDERED: PERCOCET PO (15:33)
[2020-07-21] MEDS ORDERED: CALC-190 PO (19:12)
[2020-07-21] MEDS ORDERED: ALEN35TA54 PO (19:12)
--- NOTE | 2020-07-21 19:32 | DS.PDOC ---
Discharge Summary General Date of Admission Jul 20, 2020 at 16:58 Date of Discharge 07/21/20 Discharge Summary PROCEDURES PERFORMED DURING STAY: [None]. ADMITTING DIAGNOSES: Lumbar back pain CVA Ambulatory dysfunction s/p mechanical fall AAA CKD Stage III Coronary artery disease status post stents Hypertension HLD Depression/anxiety COPD Tobacco use RLS GERD Chronic pain DISCHARGE DIAGNOSES: Lumbar back pain CVA Ambulatory dysfunction s/p mechanical fall AAA CKD Stage III Coronary artery disease status post stents Hypertension HLD Depression/anxiety COPD Tobacco use RLS GERD Chronic pain COMPLICATIONS/CHIEF COMPLAINT: Ambulatory Dysfunction/Falls. HISTORY OF PRESENT ILLNESS: Patient is a 75-year-old female with past medical history of coronary artery disease status post stents, anxiety, depression, COPD, history of multiple CVAs, GERD, chronic pain, hypertension, lipidemia who presented to [facility] emergency room with the chief complaint of persistent bilateral mid and lower back pain status post fall 2 days ago. The patient states she cannot remember what caused her to fall but she lost her balance, she denies hitting her head. She landed on her right side and immedia tely noticed mid to lower back pain bilaterally. She held off coming to the emergency room states today the pain was 10/10, bilateral from the thoracic to the lumbar area, nonradiating, sharp, worsened with activity. The patient tried Tylenol and other zhbz-jkb-qcdbbin medications at home did not help with the pain. The patient walks normally with a walker and cane at baseline. She felt as though she had increasing unsteadiness on her feet and cane for further evaluation. The patient denies lower extremity weakness lower extremity pain, numbness, loss of consciousness with her fall, facial drooping, speech issues, blurry vision, chest pain, shortness of breath, lightheadedness, dizziness, na usea, vomiting, tingling actually is. In the emergency room, vital signs were stable. The patient displayed no neurological deficits, no weakness, no pain, no numbness or tingling. WBC slightly elevated at 10.9, creatinine 1.67. CT head: Multiple old cortical and lacunar infarcts as described above- two of these in the right frontal parietal periventricular white matter are new from the December 2018 study however they have a chronic appearance. There is another new sub cm focus of decreased density in the right thalamus which is age indeterminate. CT lumbar spine: L4 vertebral body changes atypical for degenerative disc disease or healing fracture raising the question of low-grade infectious discitis such as tuberculosis or other etiology. Patient was attempted to walk to bathroom but had severe pain and had to have assistance. She lives alone HOSPITAL COURSE: Lumbar back pain possibly 2/2 to lumbar discitis, lumbar compression fracture -Pain s/p mechanical fall -Afebrile, WBC minimally elevated -F/u blood cultures x 2 sets, CRP, ESR -CT spine above -MRI : Interval partial collapse of the superior endplate of the L2 vertebral body consistent with recent traumatic or osteoporotic compression fracture deformity. Progressive erosive change visible along superior endplate of the L4 vertebral body where the CT exam from November of 2019 showed partial collapse of the superior endplate. -Withholding antimicrobial therapy until a microbiologic diagnosis is confirmed, per recommendations (no sepsis or neurological compromise present) PT/OT CVA, age indeterminant. Hx of CVA in past -Please see CT head above -Currently no neurological deficits; however, concerning for embolic disease? -MRI/MRA brain negative -Follows with Dr. Tan neurology o/p -C/w home ASA, plavix and statin Ambulatory dysfunction s/p mechanical fall -Holding off on PT/OT until MRI can be discussed with orthopedic surgery AAA -Chronic -4.2 cm in size -F/u with PCP CKD Stage III -Cr baseline -C/w home meds, avoid additional nephrotoxic medications Coronary artery disease status post stents -Denies chest pain, shortness of breath -CT chest neg -C/w home cardiac meds Hypertension -C/w home meds HLD -C/w statin Depression/anxiety -Stable -C/w home meds COPD -On RA -C/w home med Tobacco use -Nicotine patch RLS -C/w home med GERD -C/w famotidine Chronic pain -C/w home med DISCHARGE MEDICATIONS: Please see below. ALLERGIES: Please see below. PHYSICAL EXAMINATION ON DISCHARGE: VITAL SIGNS: Please see below. CONSTITUTIONAL: Appears uncomfortable from pain, AAO x 3 EYES: PERRLA, EOM intact HENT, MOUTH: Normocephalic, atraumatic, moist mucous membranes NECK: SUPPLE, no JVD, no lymphadenopathy, no carotid bruit CV: Regular rate and rhythm, S1S2 normal, no murmurs/rubs/gallops RESPIRATORY: Clear to auscultation bilaterally, no rales/rhonchi/wheezes GI: BS positive in 4 quadrants, soft, nontender, nondistended, no rebound or guarding, no organomegaly : Deferred MUSCULOSKELETAL: Stiff to sit up in bed, tenderness to palpation of the bilateral lumbar area on back. No cyanosis, clubbing, swelling, joint deformity, extremity edema, bruising. ROM not tested of back INTEGUMENTARY: right elbow skin injury from fall, scabbed. Otherwise, intact, n o rashes, no lesions, no erythema NEUROLOGIC: Cranial Nerves II-XII are intact, no focal deficits PSYCHIATRIC: Mood and affect are normal LABORATORY DATA: Please see below. IMAGING: See above PROGNOSIS: Fair ACTIVITY: [As tolerated]. DIET: Cardiac DISPOSITION: 01 Home, Self-Care. ITEMS TO FOLLOWUP ON ON OUTPATIENT: Follow-up with PCP and orthopedic team DISCHARGE CONDITION: [Stable]. TIME SPENT ON DISCHARGE: Greater than 40 minutes. Vital Signs/I&Os Vital Signs Date Time Temp Pulse Resp B/P (MAP) Pulse Ox O2 Delivery O2 Flow Rate FiO2 07/21/20 14:30 18 07/21/20 14:00 99.1 67 101/57 (72) 92 Room Air I&O- Last 24 Hours up to 6 AM 07/21/20 06:00 Intake Total 455 ml Output Total 400 ml Balance 55 ml Laboratory Data Labs 24H Laboratory Tests 2 07/21/20 05:16: Urine Color YELLOW, Urine Appearance CLEAR, Urine pH 5.0, Urine Specific [place] 1.015, Urine Protein NEGATIVE, Urine Glucose (Auto)(UA) NEGATIVE, Urine Ketones (Auto) NEGATIVE, Urine Blood NEGATIVE, Urine Nitrite NEGATIVE, Urine Bilirubin NEGATIVE, Urine Urobilinogen 0.2, Urine Leukocyte Esterase (Auto) TRACEH, Urine WBC (Auto) 1, Urine RBC (Auto) 3, Urine Hyaline Casts (Auto) 0, Urine Bacteria (Auto) NEGATIVE, Urine Squamous Epithelial Cells 0, Urine Sperm (Auto) 07/21/20 06:39: Nucleated Red Blood Cells % (auto) 0.0, Anion Gap 7L, Glomerular Filtration Rate 36.7L, Calcium Level 8.5L CBC/BMP Laboratory Tests 07/21/20 06:39 Microbiology Microbiology 07/20/20 Blood Culture - Preliminary, Resulted No growth after 24 hours . All specim... 07/20/20 Blood Culture - Preliminary, Resulted No growth after 24 hours . All specim... Discharge Medications Scheduled Alendronate Sodium (Alendronate Sodium) 35 Mg Tablet, 35 MG PO Q7D Amlodipine Besylate (Amlodipine Besylate) 5 Mg Tablet, 5 MG PO BID, (Reported) Aspirin (Aspirin EC) 81 Mg Tablet.dr, 81 MG PO DAILY, (Reported) Atorvastatin Calcium (Atorvastatin Calcium) 40 Mg Tablet, 40 MG PO DAILY, (Reported) Calcium Carbonate/Vitamin D3 (Calcium 1,000 + D3 [place]) 1 Each Tablet, 1 TAB PO DAILY Duloxetine Hcl (Duloxetine HCl) 60 Mg Capsule.dr, 60 MG PO BID, (Reported) Famotidine (Famotidine) 40 Mg Tablet, 40 MG PO DAILY, (Reported) Gabapentin (Gabapentin) 300 Mg Capsule, 300 MG PO BID, (Reported) Hydroxychloroquine Sulfate (Hydroxychloroquine Sulfate) 200 Mg Tablet, 200 MG PO BID, (Reported) Losartan Potassium (Losartan Potassium) 25 Mg Tablet, 25 MG PO DAILY, (Reported) Metoprolol Tartrate (Metoprolol Tartrate) 25 Mg Tab, 25 MG PO DAILY, (Reported) Pramipexole Di-HCl (Pramipexole Dihydrochloride) 1 Mg Tablet, 1 MG PO QHS, (Reported) Quetiapine Fumarate (Quetiapine Fumarate) 25 Mg Tablet, 25 MG PO QHS, (Reported) Scheduled PRN Albuterol Sulfate (Ventolin Hfa) 18 Gm Hfa.aer.ad, 2 PUFF INH Q4H PRN for SOB/WHEEZING, (Reported) Alprazolam (Alprazolam) 0.5 Mg Tablet, 0.5 MG PO QHS PRN for ANXIETY/AGITATION, (Reported) Fluticasone Propionate (Fluticasone Propionate) 16 Gm [place].susp, 1 SPRAY NARES DAILY PRN for CONGESTION, (Reported) Nitroglycerin (Nitroglycerin) 0.4 Mg Sub, 0.4 MG SL NITRO PRN for CHEST PAIN, (Reported) Oxycodone/Acetaminophen (Oxycodone-Acetaminophen 5-325) 1 Each Tablet, 2 TAB PO Q6HP PRN for SEVERE PAIN (PS 8-10) Tramadol HCl (Tramadol HCl) 50 Mg Tablet, 1 TAB PO Q6HP PRN for pain Allergies Coded Allergies: No Known Allergies (Unverified , 12/19/18) JENNIFER POON DO Jul 21, 2020 19:32
--- NOTE | 2020-07-22 08:49 | ECHO ---
DATE OF PROCEDURE: 07/21/2020 Age: 75 Gender: Female Height: 163 cm Weight: 73 kg REFERRING PHYSICIAN: Dr. Yandy Esposito INDICATION: Cerebrovascular accident (CVA). MEASUREMENTS: LA 3.0 cm IVS 0.9 cm LV 5.1 cm LVPW 0.8 cm Aorta 2.9 cm IVC 1.3 cm Mitral E wave velocity 67 Mitral A wave 108 E prime septal 7.0 E prime lateral 9.4 FINDINGS: This study is of acceptable technical quality. The patient is in sinus rhythm. Left ventricle is of normal size and normal systolic function, I estimate LVEF around 60% to 65%. No segmental wall motion abnormalities are appreciated. Right ventricle also has normal size and systolic function. Both atria appear normal. Aortic valve is sclerotic, but it has three cusps and preserved mobility. There are mild degenerative abnormalities of the mitral valve, but mobility of leaflets is preserved. Tricuspid valve appears normal. Pulmonic valve was not visualized. No pericardial effusion was present. Inferior vena cava is normal size. Aortic root appears normal. Aortic arch was not well seen. Limited views of abdominal aorta appear normal. Doppler interrogation reveals no aortic stenosis or insufficiency. There is trace mitral insufficiency and trace tricuspid insufficiency. Calculated pulmonary artery pressure is within normal limits. Mitral inflow pattern and tissue Doppler imaging of the mitral annulus reveal grade 1 diastolic dysfunction. CONCLUSIONS: 1. Study is of acceptable technical quality, underlying sinus rhythm. 2. Normal LV size with preserved LV systolic function and grade 1 diastolic dysfunction. 3. Aortic sclerosis, but no stenosis or insufficiency. 4. Trace mitral and tricuspid insufficiency. 5. Likely normal central venous pressure and normal pulmonary artery pressure. [facility]
== END 2020-07-21 16:49 | disposition home health service (06) | DRG 552 ==
LOC: M ED 12:17 → M ED INP 16:58 → M MSPAV 20:55
PROVIDERS: ADMIT Internal Medicine; ATTEND Internal Medicine
DX: M54.5 Low back pain (principal); M48.56XA Collapsed vertebra, not elsewhere classified, lumbar region, initial encounter for fracture; I25.10 Atherosclerotic heart disease of native coronary artery without angina pectoris; F41.9 Anxiety disorder, unspecified; F32.9 Major depressive disorder, single episode, unspecified; J44.9 Chronic obstructive pulmonary disease, unspecified; M46.46 Discitis, unspecified, lumbar region; K21.9 Gastro-esophageal reflux disease without esophagitis; I12.9 Hypertensive chronic kidney disease with stage 1 through stage 4 chronic kidney disease, or unspecified chronic kidney disease; F17.210 Nicotine dependence, cigarettes, uncomplicated; G25.81 Restless legs syndrome; N18.30 Chronic kidney disease, stage 3 unspecified; I71.4 Abdominal aortic aneurysm, without rupture; G89.29 Other chronic pain; E78.5 Hyperlipidemia, unspecified; R26.81 Unsteadiness on feet; Z86.73 Personal history of transient ischemic attack (TIA), and cerebral infarction without residual deficits; Z95.5 Presence of coronary angioplasty implant and graft; Z20.822 Contact with and (suspected) exposure to COVID-19; Z79.82 Long term (current) use of aspirin

== ENCOUNTER 2020-07-24 12:21 | Emergency (ER) | payer MEDICAID, MEDICARE ==
[~2020-07-24] VITALS: Ht 162.6 cm; Wt 72.7 kg
[~2020-07-24 12:21] MED LIST changes: +ALEN35TA54 PO; +CALC-190 PO; +PERCOCET PO
[2020-07-24] MEDS ORDERED: NS 500 ML IV ONE (13:45)
--- NOTE | 2020-07-24 14:06 | REP ---
INDICATION: fall. COMPARISON: Comparison study 20 July 2020.. TECHNIQUE: Helical scanning is acquired. 5 mm axial images were reformatted. Coronal MPR images were generated. FINDINGS: Digital preliminary low vision therapist radiograph is unremarkable. Bone window settings demonstrate no evidence of skull fracture. Visualized paranasal sinuses are essentially clear. Vascular calcification is again noted in the distal internal carotid and distal vertebral arteries. The There is generalized volume loss. Old cortical infarct is seen in the left inferior cerebellum unchanged. There are multiple old lacunar infarcts in the basal ganglia bilaterally. Lacunar infarcts are seen in the periventricular white matter of the right frontal lobe also unchanged. A low-density area is again seen in the right thalamus unchanged from the most recent prior study July 20, 2020. No evidence of intracranial hemorrhage. No extra-axial fluid collection is seen. No intracranial mass lesion. IMPRESSION: Generalized volume loss. Multiple old lacunar infarcts noted bilaterally. Old left cerebellar cortical infarction. No intracranial hemorrhage, skull fracture or other acute intracranial lesion seen.. <Electronically signed by Christiano Chris > 07/24/20 [id number]
[2020-07-24] MEDS ORDERED: ACETAMINOPHEN 325 MG TAB PO ONE (14:30)
[2020-07-24 14:32] LABS: BASO # 0.1 10^3/uL (0.0-0.2); BASO % 0.5 % (0.0-1.0); EOS # 0.5 10^3/uL (0.0-0.5); EOS % 4.4 % (0.0-3.0); HEMATOCRIT 30.5 % (36.0-47.0); HEMOGLOBIN 9.4 g/dl (12.0-15.5); LYMPH # 1.8 10^3/uL (1.5-5.0); LYMPH % 15.3 % (24.0-44.0); MEAN CORPUSCULAR HEMOGLOBIN 27.2 pg (27.0-33.0); MEAN CORPUSCULAR HGB CONC 30.8 g/dl (32.0-36.5); MEAN CORPUSCULAR VOLUME 88.2 fl (80.0-96.0); MONO # 0.9 10^3/uL (0.0-0.8); MONO % 7.9 % (0.0-5.0); NEUTROPHILS # 8.4 10^3/uL (1.5-8.5); NEUTROPHILS % 71.4 % (36.0-66.0); PLATELET COUNT, AUTOMATED 445 10^3/uL (150-450); RED BLOOD COUNT 3.46 10^6/uL (4.00-5.40); WHITE BLOOD COUNT 11.8 10^3/uL (4.0-10.0)
--- NOTE | 2020-07-24 14:41 | REP ---
INDICATION: fall. COMPARISON: Radiographs 11/26/2019. MRI 07/20/2020. TECHNIQUE: Three AP and lateral views of the thoracic spine are performed. FINDINGS: There is no compression fracture of any of the thoracic vertebral bodies. There is normal thoracic kyphosis and alignment. There is mild diffuse spurring. There is mild disc space narrowing at some of the midthoracic disc levels. Posterior elements are intact. There is mild curvature toward the left. IMPRESSION: No acute fracture or dislocation. Mild degenerative changes and curvature. <Electronically signed by Christophe Ayala > 07/24/20 [id number]
[2020-07-24 14:44] LABS: INR 0.97; PROTHROMBIN TIME 13.1 SECONDS (12.5-14.3)
--- NOTE | 2020-07-24 14:45 | REP ---
INDICATION: fall. COMPARISON: Radiographs 11/26/2019 and MRI 07/20/2020. TECHNIQUE: Five views lumbosacral spine. FINDINGS: There is depression of the superior endplate of L2 which is unchanged since the prior MRI. Similar findings are seen at L4. There is no new acute compression fracture. There is normal lumbar lordosis and alignment. There is no spondylolysis. There is mild diffuse spurring. Disc spaces are not significantly narrowed. There is sclerosis and spurring at the posterior facet joints of L3-4, L4-5 and L5-S1. The posterior elements are intact. Metallic clips are seen in the pelvis. IMPRESSION: Depression of the superior endplate of L2 and L4 is chronic and unchanged since 2020. No acute fracture or dislocation. <Electronically signed by Christophe Ayala > 07/24/20 [id number]
[2020-07-24] MEDS ORDERED: traMADol 50 MG TAB PO ONE ×2 (15:00→15:15)
[2020-07-24 15:01] LABS: ALBUMIN 2.8 GM/DL (3.2-5.2); BILIRUBIN,DIRECT 0.1 MG/DL (0.0-0.2); BILIRUBIN,TOTAL 0.3 MG/DL (0.2-1.0); TOTAL PROTEIN 6.8 GM/DL (6.4-8.2)
[2020-07-24] MEDS ORDERED: MORPHINE 2 MG/ML 1ML VIAL (J2270) IV ONE (17:00)
[2020-07-24] MEDS ORDERED: METOPROLOL TART 25 MG TABLET PO ONE (17:30)
--- NOTE | 2020-07-24 19:31 | REPVR ---
PROCEDURE INFORMATION: Exam: MR Lumbar Spine Without Contrast. Exam date and time: 07/24/2020 7:08 PM Age: 75 years old Clinical indication: Low back pain; Additional info: Weakness legs/ back pain TECHNIQUE: Imaging protocol: Multiplanar magnetic resonance images of the lumbar spine without intravenous contrast. COMPARISON: MRI-Spine, L.S. without con 07/20/2020 10:22 PM FINDINGS: Vertebrae: Mild compression deformity at L2 demonstrates presence of marrow edema and fracture of the superior endplate consistent with a acute to subacute fracture. Moderate compression deformity at L4 with 50% loss of vertebral height and evidence of marrow edema adjacent to the superior endplate. Large Schmorl's nodes demonstrated anteriorly and posteriorly. Findings consistent with subacute to acute endplate fracture. Focus of marrow edema in the anterior inferior aspect of L5 without significant loss of vertebral height. Finding may be related to degenerative changes however edema related to an occult fracture not excluded. Spinal cord: Normal signal. No cord compression. L1-L2: There is a moderate central spinal stenosis at L1-L2 secondary to diffuse annular bulging, thickened ligamentum flavum with mild facet joint arthropathy. L2-L3: There is a moderate central spinal stenosis at L2-L3 secondary to diffuse annular bulging, thickened ligamentum flavum with facet joint arthropathy. L3-L4: There is a moderate to severe central spinal stenosis at L3-L4 secondary to diffuse annular bulging, thickened ligamentum flavum with facet joint arthropathy. L4-L5: There is a severe central spinal stenosis at L4-L5 secondary to diffuse annular bulging, thickened ligamentum flavum with facet joint arthropathy. L5-S1: No significant disc disease. No significant spinal canal stenosis. No neural foraminal stenosis. Soft tissues: Partially visualized infrarenal abdominal aortic aneurysm measures 3.5 cm. Possible cyst versus UPJ obstruction right kidney. Otherwise unremarkable. IMPRESSION: 1. Mild compression deformity at L2 with marrow edema and fracture of the superior endplate consistent with a acute to subacute fracture. 2. Moderate compression deformity at L4 with 50% loss of vertebral height and evidence of marrow edema adjacent to the superior endplate. Large Schmorl's nodes demonstrated anteriorly and posteriorly. Findings consistent with subacute to acute endplate fracture. 3. Focus of marrow edema in the anterior inferior aspect of L5 as described above may be related to prior trauma. 4. Multilevel spinal stenoses, moderate at L1-L2 and L2-L3, moderate to severe at L3-L4, and severe at L4-L5. Electronically signed by: Dewayne Hernandez On 07/24/2020 19:31:18 PM
[2020-07-24] MEDS ORDERED: CALCITONIN NASAL SPRAY 3.7 ML BTL STA (20:44)
[2020-07-24] MEDS ORDERED: CALC20SPR (21:08)
--- NOTE | 2020-07-24 21:11 | ECGEPIP ---
[facility] - ED Test Date: 2020-07-24 Pat Name: MAHESH AQUINO Department: Room: - Gender: Female Poultry Sexer: aleena : 1945 Requested By: PAWAN Linares PA-C Order Number: [id number] Reading MD: Nany Coon Measurements Intervals [place] Rate: 89 P: 33 MO: 172 QRS: 13 QRSD: 87 T: 27 QT: 371 QTc: 452 Interpretive Statements SINUS RHYTHM NSTTW abnormalities INCREASED RATE 07/20/20 Electronically Signed on 07-24-2020 21:11:15 EST by Nany Coon
[2020-07-24] MEDS ORDERED: dexameTHASONE 20MG/5ML VIAL (J1100 PER 1MG) IV ONE (21:15)
[2020-07-24 21:47] VITALS: BP 172/79
[2020-07-24] MEDS ORDERED: BRACE EXT (21:57)
--- NOTE | 2020-07-27 13:43 | ER ---
ER ORTHOPEDIC CONSULTATION DATE: 07/24/2020 CHIEF COMPLAINT: Lower back pain. HISTORY OF PRESENT ILLNESS: The patient is a 75-year-old female who states that she has recently over the last several years and definitely over the last several months has been experiencing multiple falls. The patient presented to the Emergency Room several days prior complaining of lower back pain and was diagnosed with a compression fracture. The patient was discharged and sustained another fall and had increased pain, presented back to the Emergency Room. Further imaging was ordered by the Emergency Room practitioners and some edema was seen on the MRI around the L2 and the L4 compression fractures and orthopedics was consulted. The patient states that she has pain in her back that has been present since about Monday which is about two days prior and then had an exacerbation of the pain earlier today after a repeat fall. The patient states that she is still ambulatory on her however, her pain is what bothers her and brings her in for pain medication. The patient states that she denies any bowel or bladder problems or any neurologic weakness. The patient states that the pain is achy and throbbing, this is not made adequately better with Tylenol and NSAIDs and that this is made better with opioid pain medications. She has previously tried a brace which the patient states only provides her some minimal relief. PAST MEDICAL HISTORY: Cerebral artery occlusion, left sided weakness with multiple CVAs, migraines, AAA, angina with am [place] in 2006, coronary artery disease, IBS, spondylosis, old lesser toe fracture, history of shingles, depression, anxiety, degenerative disc disease, fibromyalgia, urinary tract infections, endometriosis, gastric reflux, diverticulosis, GERD, COPD, hypertension, hypercholesterolemia. PAST SURGICAL HISTORY: Tonsillectomy, stents, bowel resection, hysterectomy. MEDICATIONS: 1. Metoprolol. 2. Acetaminophen. 3. Calcium carbonate. 4. Vitamin D3. 5. Alendronate. 6. Nitroglycerin. 7. Metoprolol. 8. Alprazolam. 9. Fluconazole. 10.Albuterol. 11.Aspirin. 12.Losartan. 13.Atorvastatin. 14.Amlodipine. 15.Hydroxychloroquine. 16.Gabapentin. 17.Duloxetine. 18.Amlodipine. SOCIAL HISTORY: The patient lives at home. ALLERGIES: No known drug allergies. PHYSICAL EXAMINATION: The patient was examined in the Emergency Room suite. The patient was seated when I entered the room. The patient was alert and oriented x3. Her affect was calm. The patient's overall appearance was atraumatic. Her neck was supple. The patient had normal eye motions, regular speech patterns. The patient denied any pain with gross evaluation of her bilateral upper extremities. She was able to move her bilateral shoulders, elbows and wrists without any discomfort or pain. The patient was able to stand up and her gait was observed. The patient did guard slightly due to complaining of lower back pain, however her gait was not significantly antalgic. The patient did complain of some point tenderness around her lower lumbar spine. The paraspinals are mildly tender and mildly spastic. Bilateral hips were evaluated. Straight leg raising was negative bilaterally. Bilateral hips were evaluated and had symmetric internal and external rotation about 20 degrees of internal rotation and 30 degrees of external rotation. No significant groin pain was felt with hip range of motion. There was no trochanteric bursal pain. Bilateral knees had appropriate range of motion, stability and strength from about 5 to about 120+ degrees without any instability. Bilateral calves are soft and nontender. The patient was able to wiggle her toes. EHL shows ___ was intact. The patient was able to walk on her tiptoes. Patellar reflexes were symmetrical bilaterally. IMAGING: Imaging which was obtained in the Emergency Room was reviewed. This included lumbar spine x-rays, thoracic x-rays, which were obtained on 07/24/2019. I personally reviewed the images myself as well as reports. The patient had depression of superior endplate of L2 and L4. Per the radiology report, this was unchanged from prior views. Due to the patient's increase in her pain, an MRI was ordered by the Emergency Room provider. The MRI was then reviewed. I reviewed both the images as well as the report. The patient had mild compression of L2 with some marrow edema making this an acute versus a subacute fracture. There was also L4 compression fracture. This was between 25 and 50% loss of vertebral height. There was some evidence of marrow edema, however there was no retropulsion or any radiographic signs of instability or cord compression. Lumbar stenosis was seen as well. ASSESSMENT: Patient is a 75-year-old female with a history of multiple falls who sustained a fall three days ago and then another fall more recently which was earlier today with increased back pain likely due to an acute on chronic versus acute L2 and L4 compression fracture without any neurovascular compromise. PLAN: The patient's pain will be controlled per the Emergency Room. The patient will follow-up with my colleagues at [facility]. She will be provided with their phone number for follow-up. A [place] brace will be prescribed. Additionally, the patient will receive calcitonin intranasally. Should the patient have any deterioration of her neurovascular status, any weakness, any bowel or bladder problems, the patient is to immediately present back to the Emergency Room.
== END 2020-07-24 22:14 | disposition home or self-care (01) ==
LOC: M ED 12:21
DX: S32.020S Wedge compression fracture of second lumbar vertebra, sequela (principal); S32.040S Wedge compression fracture of fourth lumbar vertebra, sequela; W01.0XXA Fall on same level from slipping, tripping and stumbling without subsequent striking against object, initial encounter; M48.061 Spinal stenosis, lumbar region without neurogenic claudication; Y92.9 Unspecified place or not applicable; Y93.9 Activity, unspecified; Y99.9 Unspecified external cause status; I10 Essential (primary) hypertension; Z95.818 Presence of other cardiac implants and grafts; Z78.0 Asymptomatic menopausal state; R29.6 Repeated falls; Z79.82 Long term (current) use of aspirin; Z79.899 Other long term (current) drug therapy; Z79.52 Long term (current) use of systemic steroids
CPT/HCPCS: 36415; 70450; 72072; 72110; 72148; 80047; 80076; 83605; 83690; 84484; 85025; 85610; 85730; 93005; 93041; 94760; 96361; 96374; 99285; J1100

== ENCOUNTER 2020-07-26 13:42 | Emergency (ER) | payer MEDICARE ==
[~2020-07-26] VITALS: Ht 162.6 cm; Wt 72.7 kg
[~2020-07-26 13:42] MED LIST changes: +BRACE EXT; +CALC20SPR
[2020-07-26] MEDS ORDERED: LIDO5DIS41 TOP (15:42)
[2020-07-26] MEDS ORDERED: LIDOCAINE 5% (LIDODERM) PATCH TD ONE (15:45)
[2020-07-26] MEDS ORDERED: ACETAMINOPH W/CODEINE #3 TAB UD PO ONE (15:45)
[2020-07-26 15:52] VITALS: BP 143/75
[2020-07-26] MEDS ORDERED: **NOTE PATIENT COMMENT** MISC XX SCH (21:00)
[2020-07-27] MEDS ORDERED: ROBA750T4 PO (21:04)
== END 2020-07-26 15:59 | disposition home or self-care (01) ==
LOC: M ED 13:42
DX: S32.020D Wedge compression fracture of second lumbar vertebra, subsequent encounter for fracture with routine healing (principal); S32.040D Wedge compression fracture of fourth lumbar vertebra, subsequent encounter for fracture with routine healing; X58.XXXD Exposure to other specified factors, subsequent encounter; Y92.89 Other specified places as the place of occurrence of the external cause; M47.816 Spondylosis without myelopathy or radiculopathy, lumbar region; M48.07 Spinal stenosis, lumbosacral region; G89.29 Other chronic pain; I25.10 Atherosclerotic heart disease of native coronary artery without angina pectoris; I13.10 Hypertensive heart and chronic kidney disease without heart failure, with stage 1 through stage 4 chronic kidney disease, or unspecified chronic kidney disease; N18.30 Chronic kidney disease, stage 3 unspecified; J44.9 Chronic obstructive pulmonary disease, unspecified; I25.2 Old myocardial infarction; E78.5 Hyperlipidemia, unspecified; K58.9 Irritable bowel syndrome, unspecified; K21.9 Gastro-esophageal reflux disease without esophagitis; M19.90 Unspecified osteoarthritis, unspecified site; M79.7 Fibromyalgia; G25.81 Restless legs syndrome; F17.200 Nicotine dependence, unspecified, uncomplicated; Z79.899 Other long term (current) drug therapy; Z79.82 Long term (current) use of aspirin; Z86.73 Personal history of transient ischemic attack (TIA), and cerebral infarction without residual deficits; Z86.79 Personal history of other diseases of the circulatory system; Z82.49 Family history of ischemic heart disease and other diseases of the circulatory system; Z80.1 Family history of malignant neoplasm of trachea, bronchus and lung; Z95.5 Presence of coronary angioplasty implant and graft; Z98.890 Other specified postprocedural states

== ENCOUNTER 2020-07-27 17:42 | Emergency (ER) | payer MEDICARE ==
[~2020-07-27] VITALS: Ht 162.6 cm; Wt 72.7 kg
[2020-07-27] MEDS ORDERED: methocarbamoL 750 MG TAB PO ONE (20:15)
[2020-07-27] MEDS ORDERED: traMADol 50 MG TAB PO ONE ×2 (20:15→21:00)
[2020-07-27] MEDS ORDERED: ROBA750T4 PO (21:04)
[2020-07-27 21:11] VITALS: BP 135/78
== END 2020-07-27 21:14 | disposition home or self-care (01) ==
LOC: M ED 17:42
DX: M54.5 Low back pain (principal); F17.200 Nicotine dependence, unspecified, uncomplicated

== ENCOUNTER 2020-07-31 23:34 | Inpatient (IN) | payer MEDICARE ==
[~2020-07-31] VITALS: Ht 162.6 cm; Wt 71.4 kg
[~2020-07-31 23:34] MED LIST changes: +ROBA750T4 PO
--- OUTSIDE RECORDS SUMMARY | 2020-07-31 23:39 | CCD | Continuity of Care Document ---
Author Author Carrie ARRIAZA PA Organization Unknown Address [address] [place] [address] Phone [phone] Care Team Providers Care Route Rider Name Role Phone Kaylene Rain DO AUTM [phone] Maximo Rodriguez MD Unavailable Problems Active Problems [...] SIG Qnty Indications Ordering Provide r Date Tizanidine HCL 4mg Capsules 1 by mouth three times a day 30caps S32.020A Héctor Hewitt MD 07/29/2020 Hydrocodone-Acetaminophen 5-325mg Tablets 1 tab every 4 hours for as needed for pain. 15tabs S32.020A Jose L Hewitt MD 07/29/2020 Tramadol HCL 50mg Tablets take 1 tablet by mouth twice daily for pain 10tabs Héctor Hewitt MD Tylenol With Codeine #4 300-60mg T ablets [...] Available Vital Signs Date Vital Result Comment 07/29/2020 10:51am Body Temperature 96.3 F Height 63.5 inches 5'3.50" Weight 160.00 lb BMI (Body Mass Index) 27.9 kg/m2 06/18/2020 11:54am Body Temperature 96.4 F Results Description No Information Available Procedures Date Code Description Status 07/29/2020 58912 X-Ray Spine Thoracolumbar Ap & L ateral 2 Views Completed 06/18/2020 76874 X-Ray Spine Lumbosacral Ap & Lat eral 2-3 Views Completed 01/28/2020 31465 X-Ray Spine Lumbosacral Ap & Lat eral 2-3 Views Completed Medical Devices Description No Information Available Encounters Type Date Location Provider Dx Diagnosis Office Visit 06/18[place] 10[place] S32.040D Wedge comprsn fx fourth lum vert, subs for fx w routn heal M51.36 Other intervertebral disc de generation, lumbar region M47.896 Other spondylosis, lumbar re gion M16.0 Bilateral primary osteoarthr itis of hip Office Visit 04/28/2020 3:[place] M54.5 Low back pain M16.0 Bilateral primary osteoarthr itis of hip M70.61 Trochanteric bursitis, right hip M70.62 Trochanteric bursitis, left hip S32.040S Wedge compression fracture o f fourth lum vertebra, sequela Assessments Date Code Description Provider 07/29/2020 S32.020A Wedge compression fr acture of second lumbar vertebra, initial encounter for closed fracture [place] Davalos 06/18/2020 S32.040D Wedge compression fr acture of fourth lumbar vertebra, subsequent encounter for fracture with routine healing ТАТЬЯНА Davalos 06/18/2020 M51.36 Other intervertebral disc degene ration, lumbar region Sha Arriaza, PA 06/18/2020 M47.896 Other spondylosis, lumbar region ТАТЬЯНА Davalos 06/18/2020 M16.0 Bilateral primary osteoarthritis of hip Sha Arriaza, [place] 05/20/2020 M51.36 Other intervertebral disc degene ration, lumbar region Sha Arriaza, PA 05/20/2020 M47.896 Other spondylosis, lumbar region Sha Arriaza, ТАТЬЯНА 05/20/2020 M16.0 Bilateral primary osteoarthritis of hip ТАТЬЯНА Davalos 05/20/2020 M70.61 Trochanteric bursitis, right hip Sha Arriaza, ТАТЬЯНА 05/20/2020 M70.62 Trochanteric bursitis, left hip Sha Arriaza, PA 05/20/2020 S32.040S Wedge compression fr acture of fourth lumbar vertebra, sequela ТАТЬЯНА Davalos 04/28/2020 M54.5 Low back pain ТАТЬЯНА Davalos 04/28/2020 M16.0 Bilateral primary osteoarthritis of hip ТАТЬЯНА Davalos 04/28/2020 M70.61 Trochanteric bursitis, right hip ТАТЬЯНА Davalos 04/28/2020 M70.62 Trochanteric bursitis, left hip ТАТЬЯНА Davalos 04/28/2020 S32.040S Wedge compression fr acture of fourth lumbar vertebra, sequela ТАТЬЯНА Davalos 03/04/2020 S32.040D Wedge compression fr acture of fourth lumbar vertebra, subsequent encounter for fracture with routine healing ТАТЬЯНА Davalos 03/04/2020 M16.0 Bilateral primary osteoarthritis of hip ТАТЬЯНА Davalos 03/04/2020 M70.61 Trochanteric bursitis, right hip ТАТЬЯНА Davalos 03/04/2020 M70.62 Trochanteric bursitis, left hip ТАТЬЯНА Davalos 03/04/2020 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, lumbar region ТАТЬЯНА Davalos 03/04/2020 M51.36 Other intervertebral disc degene ration, lumbar region ТАТЬЯНА Davalos 02/27/2020 S32.040D Wedge compression fr acture of fourth lumbar vertebra, subsequent encounter for fracture with routine healing ТАТЬЯНА Davalos 01/28/2020 S32.040D Wedge compression fr acture of fourth lumbar vertebra, subsequent encounter for fracture with routine healing ТАТЬЯНА Davalos 01/28/2020 R10.31 Right lower quadrant pain ТАТЬЯНА Rojas 01/28/2020 R10.32 Left lower quadrant pain ТАТЬЯНА Davalos Plan of Treatment 07/29/2020 - ТАТЬЯНА Davalos* S32.020A Wedge compression fracture of second lumbar vertebra, initial encounter for closed fracture* New Medication:* Tizanidine HCL 4 mg - 1 by mouth three times a day * Hydrocodone-Acetaminophen 5-325 mg - 1 tab every 4 hours for as needed for pain. * Follow up:* 2 weeks for back recheck with IID with repeat xrays Functional Status Description No Information Available Mental Status Description No Information Available Referrals Refer to Dr Reason for Referral Status Appt Date Sha Ar[facility]aza [facility] NT Create d [address] [place] [phone] Sha Arriaza Pac PT BASED ON MED. [facility] TO PT DEPT. NT Closed [facility] [address] [address] [phone]
--- OUTSIDE RECORDS SUMMARY | 2020-07-31 23:39 | CCD | Continuity of Care Document ---
Author Organization Unknown Address Unknown Phone Unavailable Care Team Providers Care Time Study Clerk Name Role Phone Gui Pineda MD AUTM [phone] Kaylene Rain DO AUTM Unavailable Cruzito Tan MD AUTM [phone] [facility] Rheumatology AUTM [phone] [facility] Home Hea AUTM [phone] Problems Active Problems Provider Date Acute bronchitis [...] Take 1 Tablet By Mouth Once Daily 30bs Kaylene Baronegs,DO 10/22 Hydroxychloroquine Sulfate 200mg T ablets Take One Tablet By Mouth Every Day, Then Increase To Two Times A Day After 7 Days 60tabs Kaylene Rain,DO 09/23/2019 Atorvastatin Calcium 40mg Tablets 1 by mouth every day 90tabs Kaylene Baronegs,DO 09/23/2019 Amlodipine Besylate 5mg Tablets 1 by mouth daily 30tabs Kaylene Baronegs,DO 09/17/2019 Famotidine 40mg Tablets Take One Tablet By Mouth Every Day 30tabs Kaylene Rain,DO 07/23/2019 Ferrous Gluconate 324(37.5Fe) mg T ablets 1 by mouth every day 30tabs Kaylene Baronegs,DO 12/26/2018 Fluticasone Propionate 50mcg/Act Suspension Luther 2 Sprays In Each Nostril Every Morning as Needed [facility] 12/13/2018 Mometasone Furoate 0.1% Cream Apply To Labia Two Times A Day For 2 Weeks The as Needed 15units Kaylene Rain, 02/23/2018 Zovirax 5% Ointment use to affected area tid. 30gm Kaylene Rain,DO 02/06/2018 Symbicort 160-4.5mcg/Act Aerosol 1 puff twice a day prn 10.2units Kaylene Rain,DO 07/07/2017 Ventolin HFA 108(90Base) mcg/Act A erosol 2 puffs four times a day as needed 1units Kaylene Rain,DO 07/04/2017 Metoprolol Tartrate 25mg Tablets Take One Tablet By Mouth Every Day 30tabs Kaylene Rain,DO 2016 Ra Aspirin Ec Adult Low Strength 81mg Tablets DR 1 by mouth every day 30tabs Kaylene Rain,DO 09/02 Plavix 75mg Tablets 1 by mouth every day 90tabs Kaylene Rain,DO 09/02/2016 Levocetirizine Dihydrochloride 5mg Tablets take one by mouth at at bedtime 30tabs Kaylene Barone ,DO 03/08/2016 Duloxetine HCL 60mg Caps DR Part Take One Capsule By Mouth Twice A Day 180izabelatuyet Pattersonjerrell Rain,DO 01/2016 Colace 100mg Capsules take one capsule by mouth twice a day 60laya Pattersonjerrell Rain,DO 09/17/2014 Alprazolam 0.5mg Tablets 1 by mouth every day at at bedtime as needed 30tabs F41.1 Kaylene RainDO 05/03 Nitrostat 0.4mg Tablets Sub one under tongue every 5 minutes x 3 as needed for chest discomfort 25tabs Unknown Gabapentin 300mg Capsules 1 by mouth bid Unknown Alendronate Sodium 35mg Tablets take 1 tablet by mouth once a week Unknown Quetiapine Fumarate 25mg Tablets one by mouth at at bedtime Unknown Tramadol HCL 50mg Tablets 1 tab every 6 hours as needed for pain Unknown 000 Oxycodone-Acetaminophen 5-325mg Ta blets 2 tablets po q6hp prn for severe pain Unknown History Medications Glycopyrrolate 1mg Tablets one by mouth twice a day 60tabs Kaylene RainDO 07/23/2020 - Immunizations CPT Code Status Date Vaccine Lot [...] Result H/L Range Note Laboratory test finding 07/24/2020 [facility] [address] [place], [place] [address] [phone] iSTAT Troponin 0.00 NG/ML Normal 0.00-0.08 Istat Chem8+ Panel 07/24/2020 [facility] nter [address] [place], [place] [address] [phone] iSTAT HCT 31.0 % Low 38.0-51.0 iSTAT Glucose 97 mg/dL Normal 70-105 iSTAT Sodium 138 mEq/L Normal 136-145 iSTAT Potassium 4.0 mEq/L Normal 3.5-5.1 iSTAT CA++ 4.4 mg/dL Low 4.5-5.3 iSTAT Chloride 105 mEq/L Normal 98-109 iSTAT Co2 26.0 MM/L Normal 23.0-27.0 iSTAT BUN 11 mg/dL Normal 8-26 iSTAT Creatinine 1.3 mg/dL Normal 0.6-1.3 CBC With Differential 07/24/[address] [address] [phone] White Blood Count 11.8 10 High 4.0-10.0 Red Blood Count 3.46 10 Low 4.00-5.40 Hemoglobin 9.4 g/dL Low 12.0-15.5 Hematocrit 30.5 % Low 36.0-47.0 Mean Corpuscular Volume 88.2 fl Normal 80.0-96.0 Mean Corpuscular Hemoglobin 27.2 pg Normal 27.0-33.0 Mean Corpuscular HGB Conc 30.8 g/dL Low 32.0-36.5 Red Cell Distribution Width 15.6 % High 11.5-14.5 Platelet Count, Automated 445 10 Normal 150-450 Neutrophils % 71.4 % High 36.0-66.0 Lymph % 15.3 % Low 24.0-44.0 Montague % 7.9 % High 0.0-5.0 Eos % 4.4 % High 0.0-3.0 Baso % 0.5 % Normal 0.0-1.0 Immature Granulocyte % 0.5 % Normal 0-3.0 Nucleated Red Blood Cell % 0.0 % Normal 0-0 Neutrophils # 8.4 10 Normal 1.5-8.5 Lymph # 1.8 10 Normal 1.5-5.0 Montague # 0.9 10 High 0.0-0.8 Eos # 0.5 10 Normal 0.0-0.5 Baso # 0.1 10 Normal 0.0-0.2 Laboratory test finding 07/24/2020 [facility] [address] [place] [address] [phone] Lactic Acid Sepsis Protocol 1.3 mmol/L Normal 0.4- 2.0 1 Prothrombin Time/Inr 07/24/2020 [facility] C enter [address] [place] [address] [phone] Prothrombin Time 13.1 seconds Normal 12.5-14.3 Inr 0.97 Normal 2 Laboratory test finding 07/24/2020 [facility] [address] [place] [address] [phone] Partial Thromboplastin Time 31.0 seconds Normal 24 .2-38.5 Liver Profile 07/24/2020 [facility] nter [address] [place] [address] [phone] Ast/Sgot 9 U/L Normal 7-37 Alt/SGPT 8 U/L Low 12-78 Alkaline Phosphatase 93 U/L Normal 45-117 Bilirubin,Total 0.3 mg/dL Normal 0.2-1.0 Bilirubin,Direct 0.1 mg/dL Normal 0.0-0.2 Total Protein 6.8 GM/DL Normal 6.4-8.2 Albumin 2.8 GM/DL Low 3.2-5.2 Albumin/Globulin Ratio 0.7 Low 1.2-2.2 Laboratory test finding 07/24/[address] [address] [phone] Lipase 48 U/L Low 73-393 3 Laboratory test finding 07/24/2020 [facility] [address] [place] [address] [phone] Bedside Glucose 97 mg/dL Normal 83-110 Influenza A/B RSV Covid Amp 07/20/[address] [address] [phone] Influenza A Amplification NEGATIVE Normal Negati ve 4 Influenza B Amplification NEGATIVE Normal Negative 5 RSV Amplification NEGATIVE Normal Negative 6 Sars Covid-19 Amplification NEGATIVE Normal Negative 7 Laboratory test finding 07/10/[address] [address] [phone] Creatinine,Random Urine 341.0 mg/dL Normal 8 Total Protein,Random Urine 198.0 mg/dL High 0.0-12.0 9 CBC With Differential 07/10/[address] [address] [phone] White Blood Count 11.3 10 High 4.0-10.0 [...] 36.0-66.0 Lymph % 18.6 % Low 24.0-44.0 Montague % 9.1 % High 0.0-5.0 Eos % 10.2 % High 0.0-3.0 Baso % 0.5 % Normal 0.0-1.0 Immature Granulocyte % 0.4 % Normal 0-3.0 Nucleated Red Blood Cell % 0.0 % Normal 0-0 Neutrophils # 6.9 10 Normal 1.5-8.5 Lymph # 2.1 10 Normal 1.5-5.0 Montague # 1.0 10 High 0.0-0.8 Eos # 1.2 10 High 0.0-0.5 Baso # 0.1 10 Normal 0.0-0.2 Laboratory test finding 07/10/2020 [facility] [address] [place] [address] [phone] Erythrocyte Sedimentation Rate 79 mm/hr High 0 -30 Comprehensive Metabolic Profil 07/10/2020 [place] [address] [place] [address] [phone] Glucose, Fasting 110 mg/dL High 70-100 Blood Urea Nitrogen 15 mg/dL Normal 7-18 Creatinine For GFR 1.55 mg/dL High 0.55-1.30 Glomerular Filtration Rate 34.8 Low >39 1 0 Sodium Level 138 mEq/L Normal 136-145 Potassium [...] 0.7 Low 1.2-2.2 Laboratory test finding 07/10/2020 [facility] [address] [place], [place] [address] [phone] Complement C3 139 mg/dL Normal 90-180 11 Complement C4 29 mg/dL Normal 10-40 12 C Reactive Protein Quantitativ 2.83 mg/dL High 0.00-0.30 13 Comprehensive Chem Profile 05/26/2020 [place] [facility] [employer] Building: Dr Sai Pascal [place], [place] [address] [phone] Glucose 117 mg/dL High 74 - 99 14 BUN 12 mg/dL 7 - 18 Creatinine [...] Low >60 GFR 38 mL/min Low >60 15 Complete Blood Count 05/26/2020 [place] [employer] Building: [place] [address] [phone] WBC 11.9 x10*3/UL High 4.1 - 10.9 [...] # 9.1 x10*3/UL High 2.0 - 7.8 CBC With Differential 04/29/2020 [facility] [address] [place], [place] [address] [phone] White Blood Count 12.1 10 High 4.0-10.0 [...] 36.0-66.0 Lymph % 22.4 % Low 24.0-44.0 Montague % 7.9 % High 0.0-5.0 Eos % 6.0 % High 0.0-3.0 Baso % 0.7 % Normal 0.0-1.0 Immature Granulocyte % 0.3 % Normal 0-3.0 Nucleated Red Blood Cell % 0.0 % Normal 0-0 Neutrophils # 7.6 10 Normal 1.5-8.5 Lymph # 2.7 10 Normal 1.5-5.0 Montague # 1.0 10 High 0.0-0.8 Eos # 0.7 10 High 0.0-0.5 Baso # 0.1 10 Normal 0.0-0.2 Comprehensive Metabolic Profil 04/29/[address] [address] [phone] Glucose, Fasting 86 mg/dL Normal 70-100 Blood Urea Nitrogen 14 mg/dL Normal 7-18 Creatinine For GFR 1.68 mg/dL High 0.55-1.30 Glomerular Filtration Rate 31.8 Low >39 1 6 Sodium Level 140 mEq/L Normal 136-145 Potassium [...] 0.8 Low 1.2-2.2 Laboratory test finding 04/29/2020 [facility] [address] [place] [address] [phone] Carcinoembryonic Antigen 4.0 NG/ML High <2.5 17 Laboratory test finding 03/13/2020 [place] [employer] Building: [place] [address] [phone] Sed Rate 41 mm/hr High 0 - 15 Anti-Neutrophil Cytoplasmic AB 03/13/[address] [place] [address] [phone] Cytoplasmic Neutrop AB Anca-C <1:20 titer Normal N eg:<1:20 Perinuclear AB Anca-P <1:20 titer Normal Neg:<1:20 18 Anca-Atypical <1:20 titer Normal Neg:<1:20 19 Serum Protein Electrophoresis 03/13/[address] [address] [phone] Albumin % 53.1 % Low 55.8-66.1 Cpviz-4-Ycvxaywt % 5.2 % High 2.9-4.9 Ysuho-0-Hfekeunkg % 14.0 % High 7.1-11.8 Vwot-6-Bmrrugcul % 7.2 % Normal 4.7-7.2 Toyb-3-Vcwehokjc % 6.6 % High 3.2-6.5 Gamma Globulin % 13.9 % Normal 11.1-18.8 Albumin 3.66 GM/DL Normal 3.29-5.55 Bkutk-3-Ckbqtuqvy 0.36 GM/DL Normal 0.17-0.41 Jdylf-1-Aadzttwil 0.97 GM/DL Normal 0.42-0.99 Akib-8-Chrgxxkiu 0.50 GM/DL Normal 0.28-0.60 Xmjd-3-Ykjbpacgd 0.46 GM/DL Normal 0.19-0.55 Gamma Globulins 0.96 GM/DL Normal 0.65-1.58 Total Protein 6.9 GM/DL Normal 6.4-8.2 Spep Interpretation SEE COMMENT Normal 20 Spep Pathologist Review REV'D BY O ADJAP <SEE NOTE> Normal 21 Laboratory test finding 03/13/2020 [facility] [address] [place] [address] [phone] Phospholipids Level 151 mg/dL Normal 150-250 2 2 PT & Aptt 02/01/2020 [facility] nter [address] [place] [address] [phone] Prothrombin Time 13.2 seconds Normal 11.8-14.0 Inr 0.99 Normal 23 Partial Thromboplastin Time 30.2 seconds Normal 25.0-38.4 CBC With Differential 02/01/[address] [place] [address] [phone] White Blood Count 9.8 10 Normal 4.0-10.0 [...] 36.0-66.0 Lymph % 28.3 % Normal 24.0-44.0 Montague % 8.8 % High 0.0-5.0 Eos % 5.8 % High 0.0-3.0 Baso % 0.7 % Normal 0.0-1.0 Immature Granulocyte % 0.3 % Normal 0-3.0 Nucleated Red Blood Cell % 0.0 % Normal 0-0 Neutrophils # 5.5 10 Normal 1.5-8.5 Lymph # 2.8 10 Normal 1.5-5.0 Montague # 0.9 10 High 0.0-0.8 Eos # 0.6 10 High 0.0-0.5 Baso # 0.1 10 Normal 0.0-0.2 Cardiac Injury Profile 02/01/2020 [facility] [address] [place] [address] [phone] CPK Creatine Phosphokinase 60 U/L Normal 26-19 2 CK-MB Value Mass < 1.0 NG/ML Normal <3.6 MB/CK Relative Index 1.67 Normal < Or =4 24 Liver Profile 02/01/2020 [facility] nter [address] [place] [address] [phone] Ast/Sgot 11 U/L Normal 7-37 Alt/SGPT 11 U/L Low 12-78 Alkaline Phosphatase 101 U/L Normal 45-117 Bilirubin,Total 0.1 mg/dL Low 0.2-1.0 Bilirubin,Direct < 0.1 mg/dL Normal 0.0-0.2 Total Protein 7.0 GM/DL Normal 6.4-8.2 Albumin 3.0 GM/DL Low 3.2-5.2 Albumin/Globulin Ratio 0.8 Low 1.2-2.2 Basic Metabolic Profile 02/01/[address] [address] [phone] Glucose, Fasting 103 mg/dL High 70-100 Blood Urea Nitrogen 10 mg/dL Normal 7-18 Creatinine For GFR 1.34 mg/dL High 0.55-1.30 Glomerular Filtration Rate 41.3 Normal >39 2 5 Sodium Level 138 mEq/L Normal 136-145 Potassium Serum 4.4 mEq/L Normal 3.5-5.1 Chloride Level 107 mEq/L Normal 98-107 Carbon Dioxide Level 27 mEq/L Normal 21-32 Anion Gap 4 mEq/L Low 8-16 Calcium Level 8.5 mg/dL Low 8.8-10.2 Laboratory test finding 02/01/[address] [address] [phone] Troponin I < 0.02 NG/ML Normal < 0.10 26 Lipase 80 U/L Normal 73-393 Thyroid Stimulating Hormone 0.753 uIU/ML Normal 0.358-3.740 Free T4 0.90 ng/dL Normal 0.76-1.46 Laboratory test finding 01/24/2020 [place] [employer] tia aly [employer] Building: [place] [address] [phone] Sed Rate 54 mm/hr High 0 - 15 1 note:<nlbl:demographic_[facility] ed> Y/N query for Sepsis Lactate Rule: Y 2 THERAPUTIC HUMAN INR VALUES INDICATIONS NORMAL RANGES PROPHYLAXIS/TREATMENT OF: VENOUS THROMBOSIS 2.0-3.0 PULMONARY EMBOLISM 2.0-3.0 PREVENTION OF SYSTEMIC EMBOLISM FROM: TISSUE HEART VALVES 2.0-3.0 ACUTE MYOCARDIAL INFARCTION 2.0-3.0 VALVULAR HEART DISEASE 2.0-3.0 ATRIAL FIBRILLATION 2.0-3.0 MECHANICAL VALVES(HIGH RISK) 2.5-3.5 RECURRENT MYOCARDIAL INFARCTION 2.5-3.5 3 note:<nlbl:demographic_[facility] ed> 4 Negative results do not prec lude influenza or RSV virus infection and should not be used as the sole basis for treatment or other patient management decisions. 5 Negative results do not prec lude influenza or RSV virus infection and should not be used as the sole basis for treatment or other patient management decisions. 6 Negative results do not prec lude influenza or RSV virus infection and should not be used as the sole basis for treatment or other patient management decisions. 7 A false negative result may occur if a specimen is improperly collected, transported or handled. False negative results may also occur if inadequate numbers of organisms are present in the specimen. As with any molecular test, mutations within the target regions of Xpert Xpress SARS-CoV-2 could affect primer and/or probe binding resulting in failure to detect the presence of virus. This test cannot rule out diseases caused by other bacterial or viral pathogens. DISCLAIMER: Testing was performed using the [employer] SARS-CoV-2 test. This test was developed and its performance characteristics determined by [employer]. This test has not been FDA cleared or approved. This test has been authorized by FDA under an Emergency Use Authorization (EUA). This test is only authorized for the duration of time the declaration that circumstances exist justifying the authorization of the emergency use of in vitro diagnostic tests for detection of SARS-CoV-2 virus and/or diagnosis of COVID-19 infection under section 564(b)(1) of the Act, 21 U.S.C. 360bbb-3(b)(1), unless the authorization is terminated or revoked sooner. 8 note:<nlbl:demographic_chang ed> 9 note:<nlbl:demographic_chang ed> 10 Units are mL/min/1.73 m2 Chronic Kidney Disease Staging per NKF: Stage I & II GFR >=60 Normal to Mildly Decreased Stage III GFR 30-59 Moderately Decreased Stage IV GFR 15-29 Severely Decreased Stage V GFR <15 Very Little GFR Left ESRD GFR <15 on TRANSPORT NURSE 11 note:<nlbl:demographic_chang ed> 12 note:<nlbl:demographic_chang ed> 13 note:<nlbl:demographic_chang ed> 14 100-125 mg/dL PRE-DIABET ES/FASTING >126 mg/dL DIABETES/FASTING 15 CHRONIC KIDNEY DISEASE STAGI NG PER NKF STAGE I & II GFR >= 60 NORMAL TO MILDLY DECREASED STAGE III GFR 30-59 MODERATELY DECREASED STAGE IV GFR 15-29 SEVERELY DECREASED STAGE V GFR <15 VERY LITTLE GFR LEFT ESRD GFR <15 ON TRANSPORT NURSE 16 Units are mL/min/1.73 m2 Chronic Kidney Disease Staging per NKF: Stage I & II GFR >=60 Normal to Mildly Decreased Stage III GFR 30-59 Moderately Decreased Stage IV GFR 15-29 Severely Decreased Stage V GFR <15 Very Little GFR Left ESRD GFR <15 on TRANSPORT NURSE 17 THE CEA ASSAY IS PERFORMED O N THE [employer] BY CHEMILUMINESCENCE AND SHOULD NOT BE COMPARED INTERCHANGEABLY WITH OTHER METHODS. IT SHOULD NOT BE USED ALONE A SCREENING TEST OR DIAGNOSIS FOR THE PRESENCE OR ABSENCE OF MALIGNANT DISEASE. PREDICTIONS OF DISEASE RECURRENCE SHOULD NOT BE BASED SOLELY ON VALUES OBTAINED FROM SERIAL PATIENT SERUM VALUES. 18 The presence of positive flu orescence exhibiting P-ANCA or C-ANCA patterns alone is not specific for the diagnosis of Carmen's Granulomatosis (WG) or microscopic polyangiitis. Decisions about treatment should not be based solely on ANCA IFA results. The International ANCA Group Consensus recommends follow up testing of positive sera with both FL- 3 and MPO-ANCA enzyme immunoassays. As m any as 5% serum samples are positive only by EIA. Ref. AM J Clin Pathol 1999;111:507-513. 19 The atypical pANCA pattern h as been observed in a significant percentage of patients with ulcerative colitis, primary sclerosing cholangitis and autoimmune hepatitis. 20 NO M-SPIKE(S)NOTED. 21 REV'D BY Samaria OLIVARES 22 Results for this test are fo r research purposes only by the assay's industrial manufacturing technician. The performance characteristics of this product have not been established. Results should not be used as a diagnostic procedure without confirmation of the diagnosis by another medically established diagnostic product or procedure. Performed at: [address] [id number] [employer] Building: Trevin Hardin MD, Phone: [phone] 23 THERAPUTIC HUMAN INR VALUES INDICATIONS NORMAL RANGES PROPHYLAXIS/TREATMENT OF: VENOUS THROMBOSIS 2.0-3.0 PULMONARY EMBOLISM 2.0-3.0 PREVENTION OF SYSTEMIC EMBOLISM FROM: TISSUE HEART VALVES 2.0-3.0 ACUTE MYOCARDIAL INFARCTION 2.0-3.0 VALVULAR HEART DISEASE 2.0-3.0 ATRIAL FIBRILLATION 2.0-3.0 MECHANICAL VALVES(HIGH RISK) 2.5-3.5 RECURRENT MYOCARDIAL INFARCTION 2.5-3.5 24 DIAGNOSIS CRITERIA MMB ng/ml Relative Index (RI) NON-AMI < or = 5 N/A [place]ONE > 5 < or = 4 AMI > 5 > 4 25 Units are mL/min/1.73 m2 Chronic Kidney Disease Staging per NKF: Stage I & II GFR >=60 Normal to Mildly Decreased Stage III GFR 30-59 Moderately Decreased Stage IV GFR 15-29 Severely Decreased Stage V GFR <15 Very Little GFR Left ESRD GFR <15 on TRANSPORT NURSE 26 Troponin I Reference Interva l for BIMA LOCI: 99th Percentile= 0.00-0.045 ng/ml Risk Stratification: <= 0.10 ng/ml Decreased Risk for Adverse Clinical Events. 0.10-1.50 ng/ml Increased Risk for Adv erse Clinical Events. Evaluation of additional criterion and/or repeat testing in 2-6 hours is suggested to rule out myocardial damage. >= 1.50 ng/ml Indicative of Myocardial Injury. Procedures Date Code Description Status 02/25/2020 950834100 Diabetic Retinal Eye Exam Comple bertram 09/13/2018 [id number] Diabetic Retinal Eye Exam Comple bertram 06/22/2018 [id number] Colonoscopy Completed 11/23/2015 [id number] Mammogram Completed 10/24/2014 [id number] Mammogram Completed 11/19/2013 [id number] Colonoscopy Completed 05/15/2012 [id number] Mammogram Completed 01/24/2011 [id number] Mammogram Completed 04/01/2010 [id number] Colonoscopy Completed Medical Devices Description No Information Available Encounters Type Date Location Provider Dx Diagnosis Office Visit 05/26/2020 2:[facility]p [facility] G89.29 Other chronic pain J44.9 [...] resid deficits Assessments Date Code Description Provider 06/30/2020 G89.29 Other chronic pain Kaylene Rain,D O 06/30/2020 J44.9 Chronic obstructive pulmonary di sease, unspecified Kaylene Rain,DO 06/30/2020 G25.81 Restless legs syndrome Kaylene Barone gs,DO 06/30/2020 I10 Essential (primary) hypertension Kaylene Rain,DO 05/26/2020 G89.29 Other chronic pain Kaylene Rain,D O 05/26/2020 J44.9 Chronic obstructive pulmonary di sease, unspecified Kaylene Rain,DO 05/26/2020 G25.81 Restless legs syndrome Kaylene Barone gs,DO 05/26/2020 I10 Essential (primary) hypertension Kaylene Rain,DO 05/26/2020 N18.30 Chronic kidney disease, stage 3 unspecified Kaylene Rain,DO 05/26/2020 M06.4 Inflammatory polyarthropathy Humphrey ra Rain,DO 05/26/2020 I25.5 Ischemic cardiomyopathy Kaylene Regis ggs,DO 05/26/2020 D50.9 Iron deficiency anemia, unspecif [...] gs,DO 04/08/2020 I10 Essential (primary) hypertension Kaylene Rain DO 03/13/2020 N18.3 Chronic kidney disease, stage 3 (moderate) Kaylene Rian DO 03/13/2020 N18.3 Chronic kidney disease, stage 3 (moderate) Lab Schedule 01/31/2020 J44.9 Chronic obstructive pulmonary di sease, unspecified Kaylene Rain DO 01/31/2020 G89.29 Other chronic pain Loco Brumfield O 01/31/2020 N18.3 Chronic kidney disease, stage 3 (moderate) Kaylene Rain, 01/31/2020 G25.81 Restless legs syndrome Kaylene juarez,DO 01/24/2020 M25.50 Pain in unspecified joint Kaylene Rain, 01/24/2020 M25.50 Pain in unspecified joint Lab Sc hedule Plan of Treatment Future Appointment(s):* 11/23/2020 1:00 pm - Kaylene Rain DO at [facility] 05/26/2020 - Kaylene Rain DO* [...] to Reason for Referral Status Appt Date [facility] Chest CT Screening Program CT EARLY CANCER LUNG SCREENING EX AM Sent [address] [place] [address] [phone] [facility] Hematology/Oncology EDUCATIONAL CONSULTANT CONSULT FOR POSSIBLE OCCULT JAYME FONTANA Patient Notified 03/24/2020 [address] [place] [address] [phone]
--- OUTSIDE RECORDS SUMMARY | 2020-07-31 23:39 | CCD ---
Author Author [facility] Organization [facility] Address Unknown Phone Unavailable Care Team Providers Care Artificial Flowers Dyer Name Role Phone Sha Navarrete Unavailable PROBLEMS Type Condition ICD9-CM Code LVT82-PP Code Onset Dates Condition S tatus SNOMED Code Notes Problem Vasculitis I77.6 Active 01946195 Problem Lumbar spondylosis M47.816 Active 495659790 Problem Fibromyalgia M79.7 Active 234795413 ALLERGIES No Known Allergies ENCOUNTERS from 1945 to 2020-07-29 Encounter Location Date Provider Diagnosis [facility] [address] [place] [address] Jul, Sha Navarrete IMMUNIZATIONS No Information SOCIAL HISTORY Tobacco Use: [...] TABLET BY MOUTH AT BEDTIME Oral for Active Triamcinolone Acetonide 0.1 % 1 application [...] 500 MG TAKE ONE TABLET BY MOUTH TW A DAY FOR 10 DAYS Oral for [...] Information RESULTS No Results REASON FOR VISIT NEW PATIENT APPOINTMENT MEDICAL (GENERAL) HISTORY Type Description Date Medical [...] TREATMENT Next Appt Details Provider Name:Brigida Gonzalez, 2020-08-03 01:15:00 PM, [address] [place], [address], Provider Name:Alexandra Pang, 2020-08 01:00:00 PM, [address] [place], [address], Insurance Providers Payer Name Payer Address Payer Phone Insured Name Patient Relati onship to Insured Coverage Start Date Coverage End Date MEDICARE Part A and B [address] [facility] [id number] [phone] MAHESH AQUINO self MEDICAID [facility] [address] [facility] [id number] MAHESH AQUINO self
--- OUTSIDE RECORDS SUMMARY | 2020-07-31 23:39 | CCD | Continuity of Care Document ---
Author Organization Unknown Address Unknown Phone Unavailable Care Team Providers Care Experience Designer Name Role Phone Gui Pineda MD AUTM [phone] Kaylene Rain DO AUTM Unavailable Cruzito Tan MD AUTM [phone] [facility] AUTM [phone] [facility] AUTM [phone] Problems Active Problems Provider Date Acute bronchitis Kaylene Rain DO Onset: 05/16/2011 Chronic pain Kaylene Rain DO Onset: 07/08/2011 Chronic obstructive lung disease Kaylene Rain DO Onset: 07/08/2011 Restless legs Kaylene Rain DO Onset: 07/08/2011 Female genital organ symptoms Kaylene Rain DO Onset: 12/2011 Diarrhea Kaylene Rain DO Onset: 08/08/2011 Primary fibromyalgia syndrome Kaylene Rain DO Onset: Orthostatic hypotension Kalyene Rain DO Onset: 9 CVA - cerebrovascular [...] Kaylene Baronegs,DO 12/26/2018 Fluticasone Propionate 50mcg/Act Suspension Tonica 2 Sprays In Each Nostril Every Morning as Needed 16units [facility] 12/13/2018 Mometasone Furoate 0.1% Cream Apply [...] H/L Range Note Laboratory test finding 07/24/2020 [facility] [address] [place], [place] [id number] [phone] iSTAT Troponin 0.00 NG/ML Normal 0.00-0.08 Istat Chem8+ Panel 07/24/2020 [facility] nter [address] [place], [place] [id number] [phone] iSTAT HCT 31.0 % Low 38.0-51.0 iSTAT Glucose 97 mg/dL Normal 70-105 iSTAT Sodium 138 mEq/L Normal 136-145 iSTAT Potassium 4.0 mEq/L Normal 3.5-5.1 iSTAT CA++ 4.4 mg/dL Low 4.5-5.3 iSTAT Chloride 105 mEq/L Normal 98-109 iSTAT Co2 26.0 MM/L Normal 23.0-27.0 iSTAT BUN 11 mg/dL Normal 8-26 iSTAT Creatinine 1.3 mg/dL Normal 0.6-1.3 CBC With Differential 07/24/[address] [address] [phone] White Blood Count 11.8 10 High 4.0-10.0 [...] 36.0-66.0 Lymph % 15.3 % Low 24.0-44.0 [place] % 7.9 % High 0.0-5.0 Eos % 4.4 % High 0.0-3.0 Baso % 0.5 % Normal 0.0-1.0 Immature Granulocyte % 0.5 % Normal 0-3.0 Nucleated Red Blood Cell % 0.0 % Normal 0-0 Neutrophils # 8.4 10 Normal 1.5-8.5 Lymph # 1.8 10 Normal 1.5-5.0 [place] # 0.9 10 High 0.0-0.8 Eos # 0.5 10 Normal 0.0-0.5 Baso # 0.1 10 Normal 0.0-0.2 Laboratory test finding 07/24/2020 [facility] [address] [place] [address] [phone] Lactic Acid Sepsis Protocol 1.3 mmol/L Normal 0.4- 2.0 1 Prothrombin Time/Inr 07/24/2020 [facility] enter [address] [place] [address] [phone] Prothrombin Time 13.1 seconds Normal 12.5-14.3 Inr 0.97 Normal 2 Laboratory test finding 07/24/2020 [facility] [address] [place] [address] [phone] Partial Thromboplastin Time 31.0 seconds Normal 24 .2-38.5 Liver Profile 07/24/2020 [facility] nter [address] [place] [address] [phone] Ast/Sgot 9 U/L Normal 7-37 Alt/SGPT 8 U/L Low 12-78 Alkaline Phosphatase 93 U/L Normal 45-117 Bilirubin,Total 0.3 mg/dL Normal 0.2-1.0 Bilirubin,Direct 0.1 mg/dL Normal 0.0-0.2 Total Protein 6.8 GM/DL Normal 6.4-8.2 Albumin 2.8 GM/DL Low 3.2-5.2 Albumin/Globulin Ratio 0.7 Low 1.2-2.2 Laboratory test finding 07/24/[address] [address] [phone] Lipase 48 U/L Low 73-393 3 Laboratory test finding 07/24/2020 [facility] [address] [place] [address] [phone] Bedside Glucose 97 mg/dL Normal 83-110 Influenza A/B RSV Covid Amp 07/20/[address] [address] [phone] Influenza A Amplification NEGATIVE Normal Negati ve 4 Influenza B Amplification NEGATIVE Normal Negative 5 RSV Amplification NEGATIVE Normal Negative 6 Sars Covid-19 Amplification NEGATIVE Normal Negative 7 Laboratory test finding 07/10/[address] [address] [phone] Creatinine,Random Urine 341.0 mg/dL Normal 8 Total Protein,Random Urine 198.0 mg/dL High 0.0-12.0 9 CBC With Differential 07/10/[address] [address] [phone] White Blood Count 11.3 10 High 4.0-10.0 [...] 36.0-66.0 Lymph % 18.6 % Low 24.0-44.0 [place] % 9.1 % High 0.0-5.0 Eos % 10.2 % High 0.0-3.0 Baso % 0.5 % Normal 0.0-1.0 Immature Granulocyte % 0.4 % Normal 0-3.0 Nucleated Red Blood Cell % 0.0 % Normal 0-0 Neutrophils # 6.9 10 Normal 1.5-8.5 Lymph # 2.1 10 Normal 1.5-5.0 [place] # 1.0 10 High 0.0-0.8 Eos # 1.2 10 High 0.0-0.5 Baso # 0.1 10 Normal 0.0-0.2 Laboratory test finding 07/10/2020 [facility] [address] [place] [address] [phone] Erythrocyte Sedimentation Rate 79 mm/hr High 0 -30 Comprehensive Metabolic Profil 07/10/2020 [place] [address] [place] [address] [phone] Glucose, Fasting 110 mg/dL High 70-100 Blood [...] 0.7 Low 1.2-2.2 Laboratory test finding 07/10/2020 [facility] [address] [place], [place] [address] [phone] Complement C3 139 mg/dL Normal 90-180 11 Complement C4 29 mg/dL Normal 10-40 12 C Reactive Protein Quantitativ 2.83 mg/dL High 0.00-0.30 13 Comprehensive Chem Profile 05/26/2020 [place] [facility] Director Of Resource Development: Dr Sai Pascal [place], [place] [address] [phone] Glucose 117 mg/dL High 74 - 99 [...] Low >60 15 Complete Blood Count 05/26/2020 [facility] Director Of Resource Development: [place] [address] [phone] WBC 11.9 x10*3/UL High 4.1 - 10.9 [...] 2.0 - 7.8 CBC With Differential 04/29/2020 [facility] [address] [place], [place] [address] [phone] White Blood Count 12.1 10 High 4.0-10.0 [...] 36.0-66.0 Lymph % 22.4 % Low 24.0-44.0 [place] % 7.9 % High 0.0-5.0 Eos % 6.0 % High 0.0-3.0 Baso % 0.7 % Normal 0.0-1.0 Immature Granulocyte % 0.3 % Normal 0-3.0 Nucleated Red Blood Cell % 0.0 % Normal 0-0 Neutrophils # 7.6 10 Normal 1.5-8.5 Lymph # 2.7 10 Normal 1.5-5.0 [place] # 1.0 10 High 0.0-0.8 Eos # 0.7 10 High 0.0-0.5 Baso # 0.1 10 Normal 0.0-0.2 Comprehensive Metabolic Profil 04/29/[address] [address] [phone] Glucose, Fasting 86 mg/dL Normal 70-100 Blood [...] 0.8 Low 1.2-2.2 Laboratory test finding 04/29/2020 [facility] [address] [place] [address] [phone] Carcinoembryonic Antigen 4.0 NG/ML High <2.5 17 Laboratory test finding 03/13/2020 [place] [facility] Director Of Resource Development: [place] [address] [phone] Sed Rate 41 mm/hr High 0 - 15 Anti-Neutrophil Cytoplasmic AB 03/13/[address] [place] [address] [phone] Cytoplasmic Neutrop AB Anca-C <1:20 titer Normal N eg:<1:20 Perinuclear AB Anca-P <1:20 titer Normal Neg:<1:20 18 Anca-Atypical <1:20 titer Normal Neg:<1:20 19 Serum Protein Electrophoresis 03/13/[address] [address] [phone] Albumin % 53.1 % Low 55.8-66.1 Dyhnk-1-Ccrfruew % 5.2 % High 2.9-4.9 Aayyg-3-Aghynlazy % 14.0 % High 7.1-11.8 Amzq-4-Zdtlsatyd % 7.2 % Normal 4.7-7.2 Typa-0-Efgkzibhj % 6.6 % High 3.2-6.5 Gamma Globulin % 13.9 % Normal 11.1-18.8 Albumin 3.66 GM/DL Normal 3.29-5.55 Aowqg-7-Dqmplpykh 0.36 GM/DL Normal 0.17-0.41 Hqpwy-6-Jlaqnsqfz 0.97 GM/DL Normal 0.42-0.99 Gqhp-5-Mckbbwpvo 0.50 GM/DL Normal 0.28-0.60 Ccoi-8-Vnziblspl 0.46 GM/DL Normal 0.19-0.55 Gamma Globulins 0.96 GM/DL Normal 0.65-1.58 Total Protein 6.9 GM/DL Normal 6.4-8.2 Spep Interpretation SEE COMMENT Normal 20 Spep Pathologist Review REV'D BY O ADJAP <SEE NOTE> Normal 21 Laboratory test finding 03/13/2020 [facility] [address] [place] [address] [phone] Phospholipids Level 151 mg/dL Normal 150-250 2 2 PT & Aptt 02/01/2020 [facility] nter [address] [place] [address] [phone] Prothrombin Time 13.2 seconds Normal 11.8-14.0 Inr 0.99 Normal 23 Partial Thromboplastin Time 30.2 seconds Normal 25.0-38.4 CBC With Differential 02/01/[address] [place] [address] [phone] White Blood Count 9.8 10 Normal 4.0-10.0 [...] 36.0-66.0 Lymph % 28.3 % Normal 24.0-44.0 [place] % 8.8 % High 0.0-5.0 Eos % 5.8 % High 0.0-3.0 Baso % 0.7 % Normal 0.0-1.0 Immature Granulocyte % 0.3 % Normal 0-3.0 Nucleated Red Blood Cell % 0.0 % Normal 0-0 Neutrophils # 5.5 10 Normal 1.5-8.5 Lymph # 2.8 10 Normal 1.5-5.0 [place] # 0.9 10 High 0.0-0.8 Eos # 0.6 10 High 0.0-0.5 Baso # 0.1 10 Normal 0.0-0.2 Cardiac Injury Profile 02/01/2020 [facility] [address] [place] [address] [phone] CPK Creatine Phosphokinase 60 U/L Normal 26-19 2 CK-MB Value Mass < 1.0 NG/ML Normal <3.6 MB/CK Relative Index 1.67 Normal < Or =4 24 Liver Profile 02/01/2020 [facility] n[facility] [address] [place] [address] [phone] Ast/Sgot 11 U/L Normal 7-37 Alt/SGPT 11 U/L Low 12-78 Alkaline Phosphatase 101 U/L Normal 45-117 Bilirubin,Total 0.1 mg/dL Low 0.2-1.0 Bilirubin,Direct < 0.1 mg/dL Normal 0.0-0.2 Total Protein 7.0 GM/DL Normal 6.4-8.2 Albumin 3.0 GM/DL Low 3.2-5.2 Albumin/Globulin Ratio 0.8 Low 1.2-2.2 Basic Metabolic Profile 02/01/[address] [address] [phone] Glucose, Fasting 103 mg/dL High 70-100 Blood [...] mg/dL Low 8.8-10.2 Laboratory test finding 02/01/[address] [address] [phone] Troponin I < 0.02 NG/ML Normal < 0.10 26 Lipase 80 U/L Normal 73-393 Thyroid Stimulating Hormone 0.753 uIU/ML Normal 0.358-3.740 Free T4 0.90 ng/dL Normal 0.76-1.46 Laboratory test finding 01/24/2020 [facility] Director Of Resource Development: [place] [address] [phone] Sed Rate 54 mm/hr High 0 - 15 1 note:<nlbl:demographic_[facility] ed> Y/N query for Sepsis Lactate Rule: Y 2 THERAPUTIC HUMAN INR VALUES INDICATIONS NORMAL RANGES PROPHYLAXIS/TREATMENT OF: VENOUS THROMBOSIS 2.0-3.0 PULMONARY EMBOLISM 2.0-3.0 PREVENTION OF SYSTEMIC EMBOLISM FROM: TISSUE HEART VALVES 2.0-3.0 ACUTE MYOCARDIAL INFARCTION 2.0-3.0 VALVULAR HEART DISEASE 2.0-3.0 ATRIAL FIBRILLATION 2.0-3.0 MECHANICAL VALVES(HIGH RISK) 2.5-3.5 RECURRENT MYOCARDIAL INFARCTION 2.5-3.5 3 note:<nlbl:demographic_[facility] ed> 4 Negative results do not [...] pathogens. DISCLAIMER: Testing was performed using the [employer] SARS-CoV-2 test. This test was developed and its performance characteristics determined by [employer] [facility]. This test has not been FDA cleared [...] Little GFR Left ESRD GFR <15 on THIOKOL OPERATOR 11 note:<nlbl:demographic_chang ed> 12 note:<nlbl:demographic_chang ed> 13 note:<nlbl:demographic_chang ed> 14 100-125 mg/dL PRE-DIABET ES/FASTING >126 mg/dL DIABETES/FASTING 15 CHRONIC KIDNEY DISEASE STAGI NG PER NKF STAGE I & II GFR >= 60 NORMAL TO MILDLY DECREASED STAGE III GFR 30-59 MODERATELY DECREASED STAGE IV GFR 15-29 SEVERELY DECREASED STAGE V GFR <15 VERY LITTLE GFR LEFT ESRD GFR <15 ON THIOKOL OPERATOR 16 Units are mL/min/1.73 m2 Chronic Kidney Disease Staging per NKF: Stage I & II GFR >=60 Normal to Mildly Decreased Stage III GFR 30-59 Moderately Decreased Stage IV GFR 15-29 Severely Decreased Stage V GFR <15 Very Little GFR Left ESRD GFR <15 on THIOKOL OPERATOR 17 THE CEA ASSAY IS PERFORMED O N THE [employer] BY CHEMILUMINESCENCE AND SHOULD NOT BE COMPARED [...] up testing of positive sera with both OR- 3 and MPO-ANCA enzyme immunoassays. As m [...] r research purposes only by the assay's durability technician. The performance characteristics of this product have not been established. Results should not be used as a diagnostic procedure without confirmation of the diagnosis by another medically established diagnostic product or procedure. Performed at: [address] [id number] Director Of Resource Development: Trevin Hardin MD, Phone: [phone] THERAPUTIC HUMAN INR VALUES INDICATIONS NORMAL [...] Little GFR Left ESRD GFR <15 on THIOKOL OPERATOR 26 Troponin I Reference Interva l for [employer] LOCI: 99th Percentile= 0.00-0.045 ng/ml Risk Stratification: <= 0.10 ng/ml Decreased Risk for Adverse Clinical Events. 0.10-1.50 ng/ml Increased Risk for Adv erse Clinical Events. Evaluation of additional criterion and/or repeat testing in 2-6 hours is suggested to rule out myocardial damage. >= 1.50 ng/ml Indicative of Myocardial Injury. Procedures Date Code Description Status 02/25/2020 450717316 Diabetic Retinal Eye Exam Comple bertram 09/13/2018 [id number] Diabetic Retinal Eye Exam Comple bertram 06/22/2018 [id number] Colonoscopy Completed 11/23/2015 [id number] Mammogram Completed 10/24/2014 [id number] Mammogram Completed 11/19/2013 [id number] Colonoscopy Completed 05/15/2012 [id number] Mammogram Completed 01/24/2011 [id number] Mammogram Completed 04/01/2010 [id number] Colonoscopy Completed Medical Devices Description No Information Available Encounters Type Date Location Provider Dx Diagnosis Office Visit [facility] G89.29 Other chronic [...] Chronic kidney disease, stage 3 (moderate) Kaylene Rain DO 03/13/2020 N18.3 Chronic kidney [...] 1:00 pm - Kaylene Rain DO at [facility] 05/26/2020 - Kaylene Rain DO* [...] to Reason for Referral Status Appt Date [facility] Chest CT Screening Program CT EARLY CANCER LUNG SCREENING EX AM Sent [address] [place] [address] [phone] [facility] Hematology/Oncology BUDGET TECHNICIAN CONSULT FOR POSSIBLE OCCULT JAYME FONTANA Patient Notified 03/24/2020 [address] [place] [address] [phone]
--- OUTSIDE RECORDS SUMMARY | 2020-07-31 23:40 | CCD | Continuity of Care Document ---
Author Author Carrie HOLLIS Organization Unknown Address [address] [address] Phone [phone] Care Team Providers Care [employer] Name Role Phone Gui Pineda MD AUTM [phone] Kaylene Hollis DO AUTM Unavailable Cruzito Tan MD AUTM [phone] [facility] Rheumatology AUTM [phone] [facility] Home Hea AUTM [phone] Problems Active Problems Provider Date Acute bronchitis Kaylene Hollis DO Onset: 05/16/2011 Chronic pain Kaylene Hollis DO Onset: 07/08/2011 Chronic obstructive lung disease Kaylene Hollis DO Onset: 07/08/2011 Restless legs Kaylene Hollis DO Onset: 07/08/2011 Female genital organ symptoms Kaylene Hollis DO Onset: 12/2011 Diarrhea Kaylene Hollis DO Onset: 08/08/2011 Primary fibromyalgia syndrome Kaylene Hollis DO Onset: Orthostatic hypotension Kaylene Hollis DO Onset: 9 CVA - cerebrovascular accident due to cerebral artery occlus ion Kaylene Hollis DO Onset: 06/18/2019 Social History Type Date [...] mouth at night before bedtime 60tabs Kaylene Hollis,DO 05/26/20 20 Losartan Potassium 25mg Tablets Take 1 Tablet By Mouth Once Daily 30tabs Kaylene Hollis,DO 10/22 Hydroxychloroquine Sulfate 200mg T ablets Take One Tablet By Mouth Every Day, Then Increase To Two Times A Day After 7 Days 60tabs Kaylene Hollis,DO 09/23/2019 Atorvastatin Calcium 40mg Tablets 1 by mouth every day 90tabs Kaylene Hollis,DO 09/23/2019 Amlodipine Besylate 5mg Tablets 1 by mouth daily 30tabs Kaylene Hollis,DO 09/17/2019 Famotidine 40mg Tablets Take One Tablet By Mouth Every Day 30tabs Kaylene Hollis,DO 07/23/2019 Ferrous Gluconate 324(37.5Fe) mg T ablets 1 by mouth every day 30tabs Kaylene Hollis,DO 12/26/2018 Fluticasone Propionate 50mcg/Act Suspension Radisson 2 Sprays In Each Nostril Every Morning as Needed 16units Dasia Garcia,SENIOR PRODUCT ENGINEER 12/13/2018 Mometasone Furoate 0.1% Cream Apply To Labia Two Times A Day For 2 Weeks The as Needed 15units Kaylene Hollis, 02/23/2018 Zovirax 5% Ointment use to affected area tid. 30gm Kaylene Hollis DO 02/06/2018 Symbicort 160-4.5mcg/Act Aerosol 1 puff twice a day prn 10.2units Kaylene HollisDO 07/07/2017 Ventolin HFA 108(90Base) mcg/Act A erosol 2 puffs four times a day as needed 1units Kaylene Hollis DO 07/04/2017 Metoprolol Tartrate 25mg Tablets Take One Tablet By Mouth Every Day 30tabs Kaylene Hollis,DO 2016 Ra Aspirin Ec Adult Low Strength 81mg Tablets DR 1 by mouth every day 30tabs Kaylene Hollis,DO 09/02 Plavix 75mg Tablets 1 by mouth every day 90tabs Kaylene Hollis,DO 09/02/2016 Levocetirizine Dihydrochloride 5mg Tablets take one by mouth at at bedtime 30tabs Kaylene juarezDO 03/08/2016 Duloxetine HCL 60mg Caps DR Part Take One Capsule By Mouth Twice A Day 180caps Kaylene Hollis,DO 01/2016 Colace 100mg Capsules take one capsule by mouth twice a day 60caps Kaylene HollisDO 09/17/2014 Alprazolam 0.5mg Tablets 1 by mouth every day at at bedtime as needed 30tabs F41.1 Kaylene HollisDO 05/03 Nitrostat 0.4mg Tablets Sub one under [...] by mouth twice a day 60tabs Kaylene Hollis DO 07/23/2020 - Immunizations CPT Code Status Date [...] Result H/L Range Note CBC With Differential 07/24/[address] [address] [phone] White Blood Count 11.8 10 High 4.0-10.0 [...] 36.0-66.0 Lymph % 15.3 % Low 24.0-44.0 Piatt % 7.9 % High 0.0-5.0 Eos % 4.4 % High 0.0-3.0 Baso % 0.5 % Normal 0.0-1.0 Immature Granulocyte % 0.5 % Normal 0-3.0 Nucleated Red Blood Cell % 0.0 % Normal 0-0 Neutrophils # 8.4 10 Normal 1.5-8.5 Lymph # 1.8 10 Normal 1.5-5.0 Piatt # 0.9 10 High 0.0-0.8 Eos # 0.5 10 Normal 0.0-0.5 Baso # 0.1 10 Normal 0.0-0.2 Prothrombin Time/Inr 07/24/2020 [facility] [address] [place] [address] [phone] Prothrombin Time 13.1 seconds Normal 12.5-14.3 Inr 0.97 Normal 1 Laboratory test finding 07/24/2020 [facility] [address] [place] [address] [phone] Partial Thromboplastin Time 31.0 seconds Normal 24 .2-38.5 Laboratory test finding 07/24/2020 [facility] [address] [place] [address] [phone] Bedside Glucose 97 mg/dL Normal 83-110 Influenza A/B RSV Covid Amp 07/20/2020 [facility] [address] [place] [address] [phone] Influenza A Amplification NEGATIVE Normal Negati ve 2 Influenza B Amplification NEGATIVE Normal Negative 3 RSV Amplification NEGATIVE Normal Negative 4 Sars Covid-19 Amplification NEGATIVE Normal Negative 5 Laboratory test finding 07/10/[address] [address] [phone] Creatinine,Random Urine 341.0 mg/dL Normal 6 Total Protein,Random Urine 198.0 mg/dL High 0.0-12.0 7 CBC With Differential 07/10/[address] [address] [phone] White Blood Count 11.3 10 High 4.0-10.0 [...] 36.0-66.0 Lymph % 18.6 % Low 24.0-44.0 Piatt % 9.1 % High 0.0-5.0 Eos % 10.2 % High 0.0-3.0 Baso % 0.5 % Normal 0.0-1.0 Immature Granulocyte % 0.4 % Normal 0-3.0 Nucleated Red Blood Cell % 0.0 % Normal 0-0 Neutrophils # 6.9 10 Normal 1.5-8.5 Lymph # 2.1 10 Normal 1.5-5.0 Piatt # 1.0 10 High 0.0-0.8 Eos # 1.2 10 High 0.0-0.5 Baso # 0.1 10 Normal 0.0-0.2 Laboratory test finding 07/10/[address] [address] [phone] Erythrocyte Sedimentation Rate 79 mm/hr High 0 -30 Comprehensive Metabolic Profil 07/10/[address] [id number] [phone] Glucose, Fasting 110 mg/dL High 70-100 Blood Urea Nitrogen 15 mg/dL Normal 7-18 Creatinine For GFR 1.55 mg/dL High 0.55-1.30 Glomerular Filtration Rate 34.8 Low >39 8 Sodium Level 138 mEq/L Normal 136-145 [...] 0.7 Low 1.2-2.2 Laboratory test finding 07/10/2020 [facility] [address] [place], [place] [address] [phone] Complement C3 139 mg/dL Normal 90-180 9 Complement C4 29 mg/dL Normal 10-40 10 C Reactive Protein Quantitativ 2.83 mg/dL High 0.00-0.30 11 Complete Blood Count 05/26/2020 [facility] Certified Cytotechnologist: [place] [address] [phone] WBC 11.9 x10*3/UL High 4.1 - 10.9 [...] 2.0 - 7.8 Comprehensive Chem Profile 05/26/2020 [facility] Certified Cytotechnologist: Dr Sai Pascal [place], [place] [id number] [phone] Glucose 117 mg/dL High 74 - 99 12 BUN 12 mg/dL 7 - 18 Creatinine [...] Low >60 GFR 38 mL/min Low >60 13 Laboratory test finding 04/29/[address] [address] [phone] Carcinoembryonic Antigen 4.0 NG/ML High <2.5 14 Comprehensive Metabolic Profil 04/29/[address] [address] [phone] Glucose, Fasting 86 mg/dL Normal 70-100 Blood Urea Nitrogen 14 mg/dL Normal 7-18 Creatinine For GFR 1.68 mg/dL High 0.55-1.30 Glomerular Filtration Rate 31.8 Low >39 1 5 Sodium Level 140 mEq/L Normal 136-145 Potassium [...] Low 3.2-5.2 Albumin/Globulin Ratio 0.8 Low 1.2-2.2 CBC With Differential 04/29/2020 [place] [id number] [phone] White Blood Count 12.1 10 High 4.0-10.0 [...] 36.0-66.0 Lymph % 22.4 % Low 24.0-44.0 Piatt % 7.9 % High 0.0-5.0 Eos % 6.0 % High 0.0-3.0 Baso % 0.7 % Normal 0.0-1.0 Immature Granulocyte % 0.3 % Normal 0-3.0 Nucleated Red Blood Cell % 0.0 % Normal 0-0 Neutrophils # 7.6 10 Normal 1.5-8.5 Lymph # 2.7 10 Normal 1.5-5.0 Piatt # 1.0 10 High 0.0-0.8 Eos # 0.7 10 High 0.0-0.5 Baso # 0.1 10 Normal 0.0-0.2 Laboratory test finding 03/13/2020 [facility] Certified Cytotechnologist: [place] [address] [phone] Sed Rate 41 mm/hr High 0 - 15 Anti-Neutrophil Cytoplasmic AB 03/13/2020 [place] [address] [phone] Cytoplasmic Neutrop AB Anca-C <1:20 titer Normal N eg:<1:20 Perinuclear AB Anca-P <1:20 titer Normal Neg:<1:20 16 Anca-Atypical <1:20 titer Normal Neg:<1:20 17 Serum Protein Electrophoresis 03/13/[address] [address] [phone] Albumin % 53.1 % Low 55.8-66.1 Zsvau-2-Ultyauat % 5.2 % High 2.9-4.9 Gbpql-6-Vmtfhecau % 14.0 % High 7.1-11.8 Bubr-3-Poradzmtn % 7.2 % Normal 4.7-7.2 Lziu-6-Qyybtmrkh % 6.6 % High 3.2-6.5 Gamma Globulin % 13.9 % Normal 11.1-18.8 Albumin 3.66 GM/DL Normal 3.29-5.55 Epglr-5-Wbcqohpof 0.36 GM/DL Normal 0.17-0.41 Ndbip-5-Mvgpmheok 0.97 GM/DL Normal 0.42-0.99 Nxzr-1-Vazjsjxku 0.50 GM/DL Normal 0.28-0.60 Vkxb-0-Spmwfmkgz 0.46 GM/DL Normal 0.19-0.55 Gamma Globulins 0.96 GM/DL Normal 0.65-1.58 Total Protein 6.9 GM/DL Normal 6.4-8.2 Spep Interpretation SEE COMMENT Normal 18 [facility] Pathologist Review REV'D BY O ADJAP <SEE NOTE> Normal 19 Laboratory test finding 03/13/[address] [address] [phone] Phospholipids Level 151 mg/dL Normal 150-250 2 0 PT & Aptt 02/01/2020 [facility] nter [address] [place] [address] [phone] Prothrombin Time 13.2 seconds Normal 11.8-14.0 Inr 0.99 Normal 21 Partial Thromboplastin Time 30.2 seconds Normal 25.0-38.4 CBC With Differential 02/01/2020 [facility] [address] [place] [address] [phone] White Blood Count 9.8 10 Normal 4.0-10.0 [...] 36.0-66.0 Lymph % 28.3 % Normal 24.0-44.0 Piatt % 8.8 % High 0.0-5.0 Eos % 5.8 % High 0.0-3.0 Baso % 0.7 % Normal 0.0-1.0 Immature Granulocyte % 0.3 % Normal 0-3.0 Nucleated Red Blood Cell % 0.0 % Normal 0-0 Neutrophils # 5.5 10 Normal 1.5-8.5 Lymph # 2.8 10 Normal 1.5-5.0 Piatt # 0.9 10 High 0.0-0.8 Eos # 0.6 10 High 0.0-0.5 Baso # 0.1 10 Normal 0.0-0.2 Cardiac Injury Profile 02/01/2020 [facility] [address] [place] [address] [phone] CPK Creatine Phosphokinase 60 U/L Normal 26-19 2 CK-MB Value Mass < 1.0 NG/ML Normal <3.6 MB/CK Relative Index 1.67 Normal < Or =4 22 Liver Profile 02/01/2020 [facility]ter [address] [place] [address] [phone] Ast/Sgot 11 U/L Normal 7-37 Alt/SGPT 11 U/L Low 12-78 Alkaline Phosphatase 101 U/L Normal 45-117 Bilirubin,Total 0.1 mg/dL Low 0.2-1.0 Bilirubin,Direct < 0.1 mg/dL Normal 0.0-0.2 Total Protein 7.0 GM/DL Normal 6.4-8.2 Albumin 3.0 GM/DL Low 3.2-5.2 Albumin/Globulin Ratio 0.8 Low 1.2-2.2 Basic Metabolic Profile 02/01/2020 [place] [id number] [phone] Glucose, Fasting 103 mg/dL High 70-100 Blood Urea Nitrogen 10 mg/dL Normal 7-18 Creatinine For GFR 1.34 mg/dL High 0.55-1.30 Glomerular Filtration Rate 41.3 Normal >39 2 3 Sodium Level 138 mEq/L Normal 136-145 Potassium Serum 4.4 mEq/L Normal 3.5-5.1 Chloride Level 107 mEq/L Normal 98-107 Carbon Dioxide Level 27 mEq/L Normal 21-32 Anion Gap 4 mEq/L Low 8-16 Calcium Level 8.5 mg/dL Low 8.8-10.2 Laboratory test finding 02/01/[address] [address] [phone] Troponin I < 0.02 NG/ML Normal < 0.10 24 Lipase 80 U/L Normal 73-393 Thyroid Stimulating Hormone 0.753 uIU/ML Normal 0.358-3.740 Free T4 0.90 ng/dL Normal 0.76-1.46 Laboratory test finding 01/24/2020 [facility] Certified Cytotechnologist: [place] [address] [phone] Sed Rate 54 mm/hr High 0 - 15 1 THERAPUTIC HUMAN INR VALUES INDICATIONS NORMAL RANGES PROPHYLAXIS/TREATMENT OF: VENOUS THROMBOSIS 2.0-3.0 PULMONARY EMBOLISM 2.0-3.0 PREVENTION OF SYSTEMIC EMBOLISM FROM: TISSUE HEART VALVES 2.0-3.0 ACUTE MYOCARDIAL INFARCTION 2.0-3.0 VALVULAR HEART DISEASE 2.0-3.0 ATRIAL FIBRILLATION 2.0-3.0 MECHANICAL VALVES(HIGH RISK) 2.5-3.5 RECURRENT MYOCARDIAL INFARCTION 2.5-3.5 2 Negative results do not prec lude influenza or RSV virus infection and should not be used as the sole basis for treatment or other patient management decisions. 3 Negative results do not prec lude influenza or RSV virus infection and should not be used as the sole basis for treatment or other patient management decisions. 4 Negative results do not prec lude influenza or RSV virus infection and should not be used as the sole basis for treatment or other patient management decisions. 5 A false negative result may occur if [...] pathogens. DISCLAIMER: Testing was performed using the [employer] SARS-CoV-2 test. This test was developed and its performance characteristics determined by [employer]. This test has not been FDA cleared [...] the authorization is terminated or revoked sooner. 6 note:<nlbl:demographic_chang ed> 7 note:<nlbl:demographic_chang ed> 8 Units are mL/min/1.73 m2 Chronic Kidney Disease Staging per NKF: Stage I & II GFR >=60 Normal to Mildly Decreased Stage III GFR 30-59 Moderately Decreased Stage IV GFR 15-29 Severely Decreased Stage V GFR <15 Very Little GFR Left ESRD GFR <15 on DIRECTOR CARDIOVASCULAR 9 note:<nlbl:demographic_chang ed> 10 note:<nlbl:demographic_chang ed> 11 note:<nlbl:demographic_chang ed> 12 100-125 mg/dL PRE-DIABET ES/FASTING >126 mg/dL DIABETES/FASTING 13 CHRONIC KIDNEY DISEASE STAGI NG PER NKF STAGE I & II GFR >= 60 NORMAL TO MILDLY DECREASED STAGE III GFR 30-59 MODERATELY DECREASED STAGE IV GFR 15-29 SEVERELY DECREASED STAGE V GFR <15 VERY LITTLE GFR LEFT ESRD GFR <15 ON DIRECTOR CARDIOVASCULAR 14 THE CEA ASSAY IS PERFORMED O N THE [employer] BY CHEMILUMINESCENCE AND SHOULD NOT BE COMPARED INTERCHANGEABLY WITH OTHER METHODS. IT SHOULD NOT BE USED ALONE A SCREENING TEST OR DIAGNOSIS FOR THE PRESENCE OR ABSENCE OF MALIGNANT DISEASE. PREDICTIONS OF DISEASE RECURRENCE SHOULD NOT BE BASED SOLELY ON VALUES OBTAINED FROM SERIAL PATIENT SERUM VALUES. 15 Units are mL/min/1.73 m2 Chronic Kidney Disease Staging per NKF: Stage I & II GFR >=60 Normal to Mildly Decreased Stage III GFR 30-59 Moderately Decreased Stage IV GFR 15-29 Severely Decreased Stage V GFR <15 Very Little GFR Left ESRD GFR <15 on DIRECTOR CARDIOVASCULAR 16 The presence of positive flu orescence exhibiting P-ANCA or C-ANCA patterns alone is not specific for the diagnosis of Carmen's Granulomatosis (WG) or microscopic polyangiitis. Decisions about treatment should not be based solely on ANCA IFA results. The International ANCA Group Consensus recommends follow up testing of positive sera with both GA- 3 and MPO-ANCA enzyme immunoassays. As m any as 5% serum samples are positive only by EIA. Ref. AM J Clin Pathol 1999;111:507-513. 17 The atypical pANCA pattern h as been observed in a significant percentage of patients with ulcerative colitis, primary sclerosing cholangitis and autoimmune hepatitis. 18 NO M-SPIKE(S)NOTED. 19 REV'D BY Samaria OLIVARES 20 Results for this test are fo r research purposes only by the assay's air motor repairer. The performance characteristics of this product have not been established. Results should not be used as a diagnostic procedure without confirmation of the diagnosis by another medically established diagnostic product or procedure. Performed at: [facility] [address] [id number] Certified Cytotechnologist: Trevin Hardin MD, Phone: [phone] 21 THERAPUTIC HUMAN INR VALUES INDICATIONS NORMAL RANGES PROPHYLAXIS/TREATMENT OF: VENOUS THROMBOSIS 2.0-3.0 PULMONARY EMBOLISM 2.0-3.0 PREVENTION OF SYSTEMIC EMBOLISM FROM: TISSUE HEART VALVES 2.0-3.0 ACUTE MYOCARDIAL INFARCTION 2.0-3.0 VALVULAR HEART DISEASE 2.0-3.0 ATRIAL FIBRILLATION 2.0-3.0 MECHANICAL VALVES(HIGH RISK) 2.5-3.5 RECURRENT MYOCARDIAL INFARCTION 2.5-3.5 22 DIAGNOSIS CRITERIA MMB ng/ml Relative Index (RI) NON-AMI < or = 5 N/A [place] > 5 < or = 4 AMI > 5 > 4 23 Units are mL/min/1.73 m2 Chronic Kidney Disease Staging per NKF: Stage I & II GFR >=60 Normal to Mildly Decreased Stage III GFR 30-59 Moderately Decreased Stage IV GFR 15-29 Severely Decreased Stage V GFR <15 Very Little GFR Left ESRD GFR <15 on DIRECTOR CARDIOVASCULAR 24 Troponin I Reference Interva l for Colizer LOCI: 99th Percentile= 0.00-0.045 ng/ml Risk Stratification: <= 0.10 ng/ml Decreased Risk for Adverse Clinical Events. 0.10-1.50 ng/ml Increased Risk for Adv erse Clinical Events. Evaluation of additional criterion and/or repeat testing in 2-6 hours is suggested to rule out myocardial damage. >= 1.50 ng/ml Indicative of Myocardial Injury. Procedures Date Code Description Status 02/25/2020 705181187 Diabetic Retinal Eye Exam Comple bertram 09/13/2018 [id number] Diabetic Retinal Eye Exam Comple bertram 06/22/2018 [id number] Colonoscopy Completed 11/23/2015 [id number] Mammogram Completed 10/24/2014 [id number] Mammogram Completed 11/19/2013 [id number] Colonoscopy Completed 05/15/2012 [id number] Mammogram Completed 01/24/2011 [id number] Mammogram Completed 04/01/2010 [id number] Colonoscopy Completed Medical Devices Description No Information Available Encounters Type Date Location Provider Dx Diagnosis Office Visit 05/26/2020 [facility] G89.29 Other chronic pain J44.9 Chronic [...] Provider 06/30/2020 G89.29 Other chronic pain Kaylene Hollis,D O 06/30/2020 J44.9 Chronic obstructive pulmonary di sease, unspecified Kaylene Hollis,DO 06/30/2020 G25.81 Restless legs syndrome Kaylene juarez,DO 06/30/2020 I10 Essential (primary) hypertension Kaylene Hollis,DO 05/26/2020 G89.29 Other chronic pain Kaylene Hollis,D O 05/26/2020 J44.9 Chronic obstructive pulmonary di sease, unspecified Kaylene Hollis,DO 05/26/2020 G25.81 Restless legs syndrome Kaylene Barone larry,DO 05/26/2020 I10 Essential (primary) hypertension Kaylene Hollis,DO 05/26/2020 N18.30 Chronic kidney disease, stage 3 unspecified Kaylene Hollis,DO 05/26/2020 M06.4 Inflammatory polyarthropathy Milagro Baronegs,DO 05/26/2020 I25.5 Ischemic cardiomyopathy Kaylene Stacy tanias,DO 05/26/2020 D50.9 Iron deficiency anemia, unspecif ied Kaylene Hollis,DO 05/26/2020 F17.210 Nicotine dependence, cigarettes, uncomplicated Kaylene Hollis,DO 05/26/2020 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 Kaylene Hollis, DO 05/26/2020 M79.7 Fibromyalgia Kaylene Hollis,DO 05/26/2020 F41.0 Panic disorder [episodic paroxys mal anxiety] Kaylene Hollis,DO 05/26/2020 Z86.73 Personal history of transient ischemic attack (TIA), and cerebral infarction without residual deficits Kaylene Hollis,DO 05/20/2020 G89.29 Other chronic pain Kaylene Hollis,D O 05/20/2020 J44.9 Chronic obstructive pulmonary di sease, unspecified Kaylene oHllis,DO 05/20/2020 G25.81 Restless legs syndrome Kaylene Barone larry,DO 05/20/2020 I10 Essential (primary) hypertension Kaylene Hollis,DO 04/08/2020 J44.9 Chronic obstructive pulmonary di sease, unspecified Kaylene Hollis,DO 04/08/2020 G89.29 Other chronic pain Kaylene Koffi,D O 04/08/2020 G25.81 Restless legs syndrome Kaylene Abisai juarez,DO 04/08/2020 I10 Essential (primary) hypertension Kaylene DO Koffi 03/13/2020 N18.3 Chronic kidney disease, stage 3 (moderate) Kaylene Hollis, 03/13/2020 N18.3 Chronic kidney disease, stage 3 (moderate) Lab Schedule 01/31/2020 J44.9 Chronic obstructive pulmonary di sease, unspecified Kaylene Hollis, 01/31/2020 G89.29 Other chronic pain Loco Brumfield O 01/31/2020 N18.3 Chronic kidney disease, stage 3 (moderate) Kaylene Hollis,DO 01/31/2020 G25.81 Restless legs syndrome Kaylene Barone larry,DO 01/24/2020 M25.50 Pain in unspecified joint Kaylene Hollis,DO 01/24/2020 M25.50 Pain in unspecified joint Lab Sc hedule Plan of Treatment Future Appointment(s):* 11/23/2020 1:00 pm - Kaylene Hollis DO at [facility] 05/26/2020 - Kaylene Hollis DO* G89.29 Other chronic pain * J44.9 [...] to Reason for Referral Status Appt Date [facility] Chest CT Screening Program CT EARLY CANCER LUNG SCREENING EX AM Sent [address] [place] [address] [phone] [facility] Hematology/Oncology QUALITY COMPLIANCE COORDINATOR CONSULT FOR POSSIBLE OCCULT JAYME FONTANA Patient Notified 03/24/2020 [address] [place] [address] [phone]
--- OUTSIDE RECORDS SUMMARY | 2020-07-31 23:40 | CCD | Continuity of Care Document ---
Author Author Carrie HOLLIS Organization Unknown Address [address] [address] Phone [phone] Care Team Providers Care Wave Guide Assembler Name Role Phone Gui Pineda MD AUTM [phone] Kaylene Hollis DO AUTM Unavailable Cruzito Tan MD AUTM [phone] [facility] Rheumatology AUTM [phone] [facility] Home Hea AUTM [phone] Problems Active Problems Provider Date Acute bronchitis [...] Kaylene Hollis,DO 12/26/2018 Fluticasone Propionate 50mcg/Act Suspension [place] 2 Sprays In Each Nostril Every Morning as Needed 16units Dasia Garcia,[employer]UST[employer] 12/13/2018 Mometasone Furoate 0.1% Cream Apply To [...] at at bedtime 30tabs Kaylene juarez,DO 03/08/2016 Duloxetine HCL 60mg Caps DR Part [...] H/L Range Note Laboratory test finding 07/24/[address] [id number] [phone] iSTAT Troponin 0.00 NG/ML Normal 0.00-0.08 Istat Chem8+ Panel 07/24/2020 [facility] nter [address] [place] [address] [phone] iSTAT HCT 31.0 % Low 38.0-51.0 iSTAT Glucose 97 mg/dL Normal 70-105 iSTAT Sodium 138 mEq/L Normal 136-145 iSTAT Potassium 4.0 mEq/L Normal 3.5-5.1 iSTAT CA++ 4.4 mg/dL Low 4.5-5.3 iSTAT Chloride 105 mEq/L Normal 98-109 iSTAT Co2 26.0 MM/L Normal 23.0-27.0 iSTAT BUN 11 mg/dL Normal 8-26 iSTAT Creatinine 1.3 mg/dL Normal 0.6-1.3 CBC With Differential 07/24/2020 [facility] [address] [place] [address] [phone] White Blood Count 11.8 10 High 4.0-10.0 [...] 36.0-66.0 Lymph % 15.3 % Low 24.0-44.0 Summers % 7.9 % High 0.0-5.0 Eos % 4.4 % High 0.0-3.0 Baso % 0.5 % Normal 0.0-1.0 Immature Granulocyte % 0.5 % Normal 0-3.0 Nucleated Red Blood Cell % 0.0 % Normal 0-0 Neutrophils # 8.4 10 Normal 1.5-8.5 Lymph # 1.8 10 Normal 1.5-5.0 Summers # 0.9 10 High 0.0-0.8 Eos # 0.5 10 Normal 0.0-0.5 Baso # 0.1 10 Normal 0.0-0.2 Laboratory test finding 07/24/2020 [facility] [address] [place] [address] [phone] Lactic Acid Sepsis Protocol 1.3 mmol/L Normal 0.4- 2.0 1 Prothrombin Time/Inr 07/24/2020 [facility] C enter [address] [place] [address] [phone] Prothrombin Time 13.1 seconds Normal 12.5-14.3 Inr 0.97 Normal 2 Laboratory test finding 07/24/2020 [facility] [address] [place] [address] [phone] Partial Thromboplastin Time 31.0 seconds Normal 24 .2-38.5 Liver Profile 07/24/2020 [facility] nter [address] [place] [address] [phone] Ast/Sgot 9 U/L Normal 7-37 Alt/SGPT 8 U/L Low 12-78 Alkaline Phosphatase 93 U/L Normal 45-117 Bilirubin,Total 0.3 mg/dL Normal 0.2-1.0 Bilirubin,Direct 0.1 mg/dL Normal 0.0-0.2 Total Protein 6.8 GM/DL Normal 6.4-8.2 Albumin 2.8 GM/DL Low 3.2-5.2 Albumin/Globulin Ratio 0.7 Low 1.2-2.2 Laboratory test finding 07/24/2020 [facility] [address] [place] [address] [phone] Lipase 48 U/L Low 73-393 3 Laboratory test finding 07/24/2020 [facility] [address] [place] [address] [phone] Bedside Glucose 97 mg/dL Normal 83-110 Influenza A/B RSV Covid Amp 07/20/2020 [facility] [address] [place] [address] [phone] Influenza A Amplification NEGATIVE Normal Negati ve 4 Influenza B Amplification NEGATIVE Normal Negative 5 RSV Amplification NEGATIVE Normal Negative 6 Sars Covid-19 Amplification NEGATIVE Normal Negative 7 Laboratory test finding 07/10/[address] [address] [phone] Creatinine,Random Urine 341.0 mg/dL Normal 8 Total Protein,Random Urine 198.0 mg/dL High 0.0-12.0 9 CBC With Differential 07/10/[address] [address] [phone] White Blood Count 11.3 10 High 4.0-10.0 [...] 36.0-66.0 Lymph % 18.6 % Low 24.0-44.0 Summers % 9.1 % High 0.0-5.0 Eos % 10.2 % High 0.0-3.0 Baso % 0.5 % Normal 0.0-1.0 Immature Granulocyte % 0.4 % Normal 0-3.0 Nucleated Red Blood Cell % 0.0 % Normal 0-0 Neutrophils # 6.9 10 Normal 1.5-8.5 Lymph # 2.1 10 Normal 1.5-5.0 Summers # 1.0 10 High 0.0-0.8 Eos # 1.2 10 High 0.0-0.5 Baso # 0.1 10 Normal 0.0-0.2 Laboratory test finding 07/10/[address] [address] [phone] Erythrocyte Sedimentation Rate 79 mm/hr High 0 -30 Comprehensive Metabolic Profil 07/10/[address] [address] [phone] Glucose, Fasting 110 mg/dL High 70-100 Blood [...] 0.7 Low 1.2-2.2 Laboratory test finding 07/10/2020 [facility] [address] [place], [place] [id number] [phone] Complement C3 139 mg/dL Normal 90-180 11 Complement C4 29 mg/dL Normal 10-40 12 C Reactive Protein Quantitativ 2.83 mg/dL High 0.00-0.30 13 Comprehensive Chem Profile 05/26/2020 [facility] Professional: [place] [address] [phone] Glucose 117 mg/dL High 74 - 99 [...] Low >60 15 Complete Blood Count 05/26/2020 [facility] Network Professional: Dr Sai Pascal [place], [place] [id number] [phone] WBC 11.9 x10*3/UL High 4.1 - 10.9 [...] 2.0 - 7.8 CBC With Differential 04/29/[address] [address] [phone] White Blood Count 12.1 10 High 4.0-10.0 [...] 36.0-66.0 Lymph % 22.4 % Low 24.0-44.0 Summers % 7.9 % High 0.0-5.0 Eos % 6.0 % High 0.0-3.0 Baso % 0.7 % Normal 0.0-1.0 Immature Granulocyte % 0.3 % Normal 0-3.0 Nucleated Red Blood Cell % 0.0 % Normal 0-0 Neutrophils # 7.6 10 Normal 1.5-8.5 Lymph # 2.7 10 Normal 1.5-5.0 Summers # 1.0 10 High 0.0-0.8 Eos # 0.7 10 High 0.0-0.5 Baso # 0.1 10 Normal 0.0-0.2 Comprehensive Metabolic Profil 04/29/[address] [address] [phone] Glucose, Fasting 86 mg/dL Normal 70-100 Blood [...] 0.8 Low 1.2-2.2 Laboratory test finding 04/29/[address] [address] [phone] Carcinoembryonic Antigen 4.0 NG/ML High <2.5 17 Laboratory test finding 03/13/2020 [facility] Network Professional: [place] [address] [phone] Sed Rate 41 mm/hr High 0 - 15 Anti-Neutrophil Cytoplasmic AB 03/13/[address] [address] [phone] Cytoplasmic Neutrop AB Anca-C <1:20 titer Normal N eg:<1:20 Perinuclear AB Anca-P <1:20 titer Normal Neg:<1:20 18 Anca-Atypical <1:20 titer Normal Neg:<1:20 19 Serum Protein Electrophoresis 03/13/[address] [address] [phone] Albumin % 53.1 % Low 55.8-66.1 Skotb-1-Dkwdqalm % 5.2 % High 2.9-4.9 Pwjvj-2-Ndbqlxukw % 14.0 % High 7.1-11.8 Jwnk-4-Ndivuqnmj % 7.2 % Normal 4.7-7.2 Togf-6-Tmpvzntgv % 6.6 % High 3.2-6.5 Gamma Globulin % 13.9 % Normal 11.1-18.8 Albumin 3.66 GM/DL Normal 3.29-5.55 Hhumm-1-Wbpxnngjm 0.36 GM/DL Normal 0.17-0.41 Xofur-0-Rcwecultr 0.97 GM/DL Normal 0.42-0.99 Ujps-8-Uwbjnsres 0.50 GM/DL Normal 0.28-0.60 Hukb-4-Vpallmxst 0.46 GM/DL Normal 0.19-0.55 Gamma Globulins 0.96 GM/DL Normal 0.65-1.58 Total Protein 6.9 GM/DL Normal 6.4-8.2 Spep Interpretation SEE COMMENT Normal 20 Spep Pathologist Review REV'D BY O ADJAP <SEE NOTE> Normal 21 Laboratory test finding 03/13/2020 [facility] [address] [place] [address] [phone] Phospholipids Level 151 mg/dL Normal 150-250 2 2 PT & Aptt 02/01/2020 [facility] nter [address] [place] [address] [phone] Prothrombin Time 13.2 seconds Normal 11.8-14.0 Inr 0.99 Normal 23 Partial Thromboplastin Time 30.2 seconds Normal 25.0-38.4 CBC With Differential 02/01/2020 [place] [address] [place] [address] [phone] White Blood Count 9.8 10 Normal 4.0-10.0 [...] 36.0-66.0 Lymph % 28.3 % Normal 24.0-44.0 Summers % 8.8 % High 0.0-5.0 Eos % 5.8 % High 0.0-3.0 Baso % 0.7 % Normal 0.0-1.0 Immature Granulocyte % 0.3 % Normal 0-3.0 Nucleated Red Blood Cell % 0.0 % Normal 0-0 Neutrophils # 5.5 10 Normal 1.5-8.5 Lymph # 2.8 10 Normal 1.5-5.0 Summers # 0.9 10 High 0.0-0.8 Eos # 0.6 10 High 0.0-0.5 Baso # 0.1 10 Normal 0.0-0.2 Cardiac Injury Profile 02/01/2020 [facility] [address] [place] [address] [phone] CPK Creatine Phosphokinase 60 U/L Normal 26-19 2 CK-MB Value Mass < 1.0 NG/ML Normal <3.6 MB/CK Relative Index 1.67 Normal < Or =4 24 Liver Profile 02/01/2020 [facility] nter [address] [place] [address] [phone] Ast/Sgot 11 U/L Normal 7-37 Alt/SGPT 11 U/L Low 12-78 Alkaline Phosphatase 101 U/L Normal 45-117 Bilirubin,Total 0.1 mg/dL Low 0.2-1.0 Bilirubin,Direct < 0.1 mg/dL Normal 0.0-0.2 Total Protein 7.0 GM/DL Normal 6.4-8.2 Albumin 3.0 GM/DL Low 3.2-5.2 Albumin/Globulin Ratio 0.8 Low 1.2-2.2 Basic Metabolic Profile 02/01/2020 [place] [id number] [phone] Glucose, Fasting 103 mg/dL High 70-100 Blood [...] mg/dL Low 8.8-10.2 Laboratory test finding 02/01/[address] [address] [phone] Troponin I < 0.02 NG/ML Normal < 0.10 26 Lipase 80 U/L Normal 73-393 Thyroid Stimulating Hormone 0.753 uIU/ML Normal 0.358-3.740 Free T4 0.90 ng/dL Normal 0.76-1.46 Laboratory test finding 01/24/2020 [facility] Network Professional: [place] [address] [phone] Sed Rate 54 mm/hr High 0 - 15 1 note:<nlbl:demographic_chang ed> Y/N query for Sepsis Lactate Rule: Y 2 THERAPUTIC HUMAN INR VALUES INDICATIONS NORMAL RANGES PROPHYLAXIS/TREATMENT OF: VENOUS THROMBOSIS 2.0-3.0 PULMONARY EMBOLISM 2.0-3.0 PREVENTION OF SYSTEMIC EMBOLISM FROM: TISSUE HEART VALVES 2.0-3.0 ACUTE MYOCARDIAL INFARCTION 2.0-3.0 VALVULAR HEART DISEASE 2.0-3.0 ATRIAL FIBRILLATION 2.0-3.0 MECHANICAL VALVES(HIGH RISK) 2.5-3.5 RECURRENT MYOCARDIAL INFARCTION 2.5-3.5 3 note:<nlbl:demographic_chang ed> 4 Negative results do not prec [...] pathogens. DISCLAIMER: Testing was performed using the [employer] SARS-CoV-2 test. This test was developed and its performance characteristics determined by [employer]. This test has not been FDA cleared [...] Little GFR Left ESRD GFR <15 on SENIOR QUALITY MANAGER 11 note:<nlbl:demographic_chang ed> 12 note:<nlbl:demographic_chang ed> 13 note:<nlbl:demographic_chang ed> 14 100-125 mg/dL PRE-DIABET ES/FASTING >126 mg/dL DIABETES/FASTING 15 CHRONIC KIDNEY DISEASE STAGI NG PER NKF STAGE I & II GFR >= 60 NORMAL TO MILDLY DECREASED STAGE III GFR 30-59 MODERATELY DECREASED STAGE IV GFR 15-29 SEVERELY DECREASED STAGE V GFR <15 VERY LITTLE GFR LEFT ESRD GFR <15 ON SENIOR QUALITY MANAGER 16 Units are mL/min/1.73 m2 Chronic Kidney Disease Staging per NKF: Stage I & II GFR >=60 Normal to Mildly Decreased Stage III GFR 30-59 Moderately Decreased Stage IV GFR 15-29 Severely Decreased Stage V GFR <15 Very Little GFR Left ESRD GFR <15 on SENIOR QUALITY MANAGER 17 THE CEA ASSAY IS PERFORMED O N THE [employer] BY CHEMILUMINESCENCE AND SHOULD NOT BE COMPARED [...] research purposes only by the assay's automotive electrical helper. The performance characteristics of this product have not been established. Results should not be used as a diagnostic procedure without confirmation of the diagnosis by another medically established diagnostic product or procedure. Performed at: [address] [id number] Network Professional: Trevin Hardin MD, Phone: [phone] THERAPUTIC HUMAN INR VALUES INDICATIONS NORMAL [...] Little GFR Left ESRD GFR <15 on SENIOR QUALITY MANAGER 26 Troponin I Reference Interva l for [place] LOCI: 99th Percentile= 0.00-0.045 ng/ml Risk Stratification: <= 0.10 ng/ml Decreased Risk for Adverse Clinical Events. 0.10-1.50 ng/ml Increased Risk for Adv erse Clinical Events. Evaluation of additional criterion and/or repeat testing in 2-6 hours is suggested to rule out myocardial damage. >= 1.50 ng/ml Indicative of Myocardial Injury. Procedures Date Code Description Status 02/25/2020 502917578 Diabetic Retinal Eye Exam Comple bertram 09/13/2018 [id number] Diabetic Retinal Eye Exam Comple bertram 06/22/2018 [id number] Colonoscopy Completed 11/23/2015 [id number] Mammogram Completed 10/24/2014 [id number] Mammogram Completed 11/19/2013 [id number] Colonoscopy Completed 05/15/2012 [id number] Mammogram Completed 01/24/2011 [id number] Mammogram Completed 04/01/2010 [id number] Colonoscopy Completed Medical Devices Description No Information Available Encounters Type Date Location Provider Dx Diagnosis [facility] Visit [facility] G89.29 Other chronic [...] gs,DO 05/26/2020 I10 Essential (primary) hypertension Kaylene Hollis,DO 05/26/2020 N18.30 Chronic kidney disease, stage 3 unspecified Kaylene Hollis,DO 05/26/2020 M06.4 Inflammatory polyarthropathy Milagro guajardo Koffi,DO 05/26/2020 I25.5 Ischemic cardiomyopathy Kaylene Stacy [...] obstructive pulmonary di sease, unspecified Kaylene Hollis,DO 05/20/2020 G25.81 Restless legs syndrome Kaylene juarez,DO 05/20/2020 I10 Essential (primary) hypertension Kaylene Hollis,DO 04/08/2020 J44.9 Chronic obstructive pulmonary di sease, unspecified Kaylene Hollis,DO 04/08/2020 G89.29 Other chronic pain Kaylene Loco Hollis O 04/08/2020 G25.81 Restless legs syndrome Kaylene Abisai juarez,DO 04/08/2020 I10 Essential (primary) hypertension Kaylene Hollis, 03/13/2020 N18.3 Chronic kidney disease, stage 3 (moderate) Kaylene Hollis,DO 03/13/2020 N18.3 Chronic kidney disease, stage 3 (moderate) Lab Schedule 01/31/2020 J44.9 Chronic obstructive pulmonary di sease, unspecified Kaylene Hollis,DO 01/31/2020 G89.29 Other chronic pain Loco [place]field O 01/31/2020 N18.3 Chronic kidney disease, stage 3 (moderate) Kaylene Hollis,DO 01/31/2020 G25.81 Restless legs syndrome Kaylene juarez,DO 01/24/2020 M25.50 Pain in unspecified joint Kaylene Hollis,DO 01/24/2020 M25.50 Pain in unspecified joint Lab Sc hedule Plan of Treatment Future Appointment(s):* 11/23/2020 1:00 pm - Kaylene Hollis DO at [facility] 05/26/2020 - Kaylene Hollis DO* [...] Dr Reason for Referral Status Appt [place] [facility] [place] Screening Program CT EARLY CANCER LUNG SCREENING EX AM Sent [address] [place] [address] [phone] [facility] [place]ematology/Oncology RETURN AGENT CONSULT FOR POSSIBLE OCCULT JAYME FONTANA Patient Notified 03/24/2020 [address] [place] [address] [phone]
--- OUTSIDE RECORDS SUMMARY | 2020-07-31 23:40 | CCD | Continuity of Care Document ---
Author Author Carrie HOLLIS Organization Unknown Address [address] [address] Phone [phone] Care Team Providers Care Miner Helper Name Role Phone Gui Pineda MD AUTM [phone] Kaylene Hollis DO AUTM Unavailable Cruzito Tan MD AUTM [phone] [facility] Rheumatology AUTM [phone] [facility] Home Hea AUTM [phone] Problems Active Problems Provider Date Acute bronchitis [...] Kaylene Hollis,DO 12/26/2018 Fluticasone Propionate 50mcg/Act Suspension [place] 2 Sprays In Each Nostril Every Morning as Needed 16units Dasia Garcia,CLINICAL PHARMACY MANAGER 12/13/2018 Mometasone Furoate 0.1% Cream Apply To [...] H/L Range Note Laboratory test finding 07/24/[address] [id number] [phone] iSTAT Troponin 0.00 NG/ML Normal 0.00-0.08 Istat Chem8+ Panel 07/24/2020 [facility] nter [address] [place] [address] [phone] iSTAT HCT 31.0 % Low 38.0-51.0 iSTAT Glucose 97 mg/dL Normal 70-105 iSTAT Sodium 138 mEq/L Normal 136-145 iSTAT Potassium 4.0 mEq/L Normal 3.5-5.1 iSTAT CA++ 4.4 mg/dL Low 4.5-5.3 iSTAT Chloride 105 mEq/L Normal 98-109 iSTAT Co2 26.0 MM/L Normal 23.0-27.0 iSTAT BUN 11 mg/dL Normal 8-26 iSTAT Creatinine 1.3 mg/dL Normal 0.6-1.3 CBC With Differential 07/24/2020 [facility] [address] [place] [address] [phone] White Blood Count 11.8 10 High 4.0-10.0 [...] 36.0-66.0 Lymph % 15.3 % Low 24.0-44.0 Deuel % 7.9 % High 0.0-5.0 Eos % 4.4 % High 0.0-3.0 Baso % 0.5 % Normal 0.0-1.0 Immature Granulocyte % 0.5 % Normal 0-3.0 Nucleated Red Blood Cell % 0.0 % Normal 0-0 Neutrophils # 8.4 10 Normal 1.5-8.5 Lymph # 1.8 10 Normal 1.5-5.0 Deuel # 0.9 10 High 0.0-0.8 Eos # 0.5 10 Normal 0.0-0.5 Baso # 0.1 10 Normal 0.0-0.2 Laboratory test finding 07/24/2020 [facility] [address] [place] [address] [phone] Lactic Acid Sepsis Protocol 1.3 mmol/L Normal 0.4- 2.0 1 Prothrombin Time/Inr 07/24/2020 [facility] C enter [address] [place] [address] [phone] Prothrombin Time 13.1 seconds Normal 12.5-14.3 Inr 0.97 Normal 2 Laboratory test finding 07/24/2020 [facility] [address] [place] [address] [phone] Partial Thromboplastin Time 31.0 seconds Normal 24 .2-38.5 Liver Profile 07/24/2020 [facility] nter [address] [place] [address] [phone] Ast/Sgot 9 U/L Normal 7-37 Alt/SGPT 8 U/L Low 12-78 Alkaline Phosphatase 93 U/L Normal 45-117 Bilirubin,Total 0.3 mg/dL Normal 0.2-1.0 Bilirubin,Direct 0.1 mg/dL Normal 0.0-0.2 Total Protein 6.8 GM/DL Normal 6.4-8.2 Albumin 2.8 GM/DL Low 3.2-5.2 Albumin/Globulin Ratio 0.7 Low 1.2-2.2 Laboratory test finding 07/24/2020 [facility] [address] [place] [address] [phone] Lipase 48 U/L Low 73-393 3 Laboratory test finding 07/24/2020 [facility] [address] [place] [address] [phone] Bedside Glucose 97 mg/dL Normal 83-110 Influenza A/B RSV Covid Amp 07/20/2020 [facility] [address] [place] [address] [phone] Influenza A Amplification NEGATIVE Normal Negati ve 4 Influenza B Amplification NEGATIVE Normal Negative 5 RSV Amplification NEGATIVE Normal Negative 6 Sars Covid-19 Amplification NEGATIVE Normal Negative 7 Laboratory test finding 07/10/[address] [address] [phone] Creatinine,Random Urine 341.0 mg/dL Normal 8 Total Protein,Random Urine 198.0 mg/dL High 0.0-12.0 9 CBC With Differential 07/10/[address] [address] [phone] White Blood Count 11.3 10 High 4.0-10.0 [...] 36.0-66.0 Lymph % 18.6 % Low 24.0-44.0 Deuel % 9.1 % High 0.0-5.0 Eos % 10.2 % High 0.0-3.0 Baso % 0.5 % Normal 0.0-1.0 Immature Granulocyte % 0.4 % Normal 0-3.0 Nucleated Red Blood Cell % 0.0 % Normal 0-0 Neutrophils # 6.9 10 Normal 1.5-8.5 Lymph # 2.1 10 Normal 1.5-5.0 Deuel # 1.0 10 High 0.0-0.8 Eos # 1.2 10 High 0.0-0.5 Baso # 0.1 10 Normal 0.0-0.2 Laboratory test finding 07/10/[address] [address] [phone] Erythrocyte Sedimentation Rate 79 mm/hr High 0 -30 Comprehensive Metabolic Profil 07/10/[address] [address] [phone] Glucose, Fasting 110 mg/dL High 70-100 Blood [...] 0.7 Low 1.2-2.2 Laboratory test finding 07/10/2020 [facility] [address] [place], [place] [address] [phone] Complement C3 139 mg/dL Normal 90-180 11 Complement C4 29 mg/dL Normal 10-40 12 C Reactive Protein Quantitativ 2.83 mg/dL High 0.00-0.30 13 Comprehensive Chem Profile 05/26/2020 [place] [facility] [place]: [place] [address] [phone] Glucose 117 mg/dL High 74 - 99 [...] Low >60 15 Complete Blood Count 05/26/2020 [facility] [place]: Dr Sai Pascal [place], [place] [id number] [phone] WBC 11.9 x10*3/UL High 4.1 - 10.9 [...] 2.0 - 7.8 CBC With Differential 04/29/[address] [address] [phone] White Blood Count 12.1 10 High 4.0-10.0 [...] 36.0-66.0 Lymph % 22.4 % Low 24.0-44.0 Deuel % 7.9 % High 0.0-5.0 Eos % 6.0 % High 0.0-3.0 Baso % 0.7 % Normal 0.0-1.0 Immature Granulocyte % 0.3 % Normal 0-3.0 Nucleated Red Blood Cell % 0.0 % Normal 0-0 Neutrophils # 7.6 10 Normal 1.5-8.5 Lymph # 2.7 10 Normal 1.5-5.0 Deuel # 1.0 10 High 0.0-0.8 Eos # 0.7 10 High 0.0-0.5 Baso # 0.1 10 Normal 0.0-0.2 Comprehensive Metabolic Profil 04/29/[address] [address] [phone] Glucose, Fasting 86 mg/dL Normal 70-100 Blood [...] 0.8 Low 1.2-2.2 Laboratory test finding 04/29/[address] [address] [phone] Carcinoembryonic Antigen 4.0 NG/ML High <2.5 17 Laboratory test finding 03/13/2020 [place] [facility] [place]: [place] [address] [phone] Sed Rate 41 mm/hr High 0 - 15 Anti-Neutrophil Cytoplasmic AB 03/13/[address] [address] [phone] Cytoplasmic Neutrop AB Anca-C <1:20 titer Normal N eg:<1:20 Perinuclear AB Anca-P <1:20 titer Normal Neg:<1:20 18 Anca-Atypical <1:20 titer Normal Neg:<1:20 19 Serum Protein Electrophoresis 03/13/[address] [address] [phone] Albumin % 53.1 % Low 55.8-66.1 Ectva-2-Dbmpjuxh % 5.2 % High 2.9-4.9 Ajqnv-0-Rnhokoevz % 14.0 % High 7.1-11.8 Hstg-0-Thumekauc % 7.2 % Normal 4.7-7.2 Yjvz-0-Qnmliiwcz % 6.6 % High 3.2-6.5 Gamma Globulin % 13.9 % Normal 11.1-18.8 Albumin 3.66 GM/DL Normal 3.29-5.55 Nyrss-7-Tymukrwer 0.36 GM/DL Normal 0.17-0.41 Caowh-5-Pxsxyeazy 0.97 GM/DL Normal 0.42-0.99 Bfqa-1-Qkprpezbt 0.50 GM/DL Normal 0.28-0.60 Zvqy-8-Hgmtsvrjv 0.46 GM/DL Normal 0.19-0.55 Gamma Globulins 0.96 GM/DL Normal 0.65-1.58 Total Protein 6.9 GM/DL Normal 6.4-8.2 Spep Interpretation SEE COMMENT Normal 20 Spep Pathologist Review REV'D BY O ADJAP <SEE NOTE> Normal 21 Laboratory test finding 03/13/2020 [facility] [address] [place] [address] [phone] Phospholipids Level 151 mg/dL Normal 150-250 2 2 PT & Aptt 02/01/2020 [facility] nter [address] [place] [address] [phone] Prothrombin Time 13.2 seconds Normal 11.8-14.0 Inr 0.99 Normal 23 Partial Thromboplastin Time 30.2 seconds Normal 25.0-38.4 CBC With Differential 02/01/2020 [place] [address] [place] [address] [phone] White Blood Count 9.8 10 Normal 4.0-10.0 [...] 36.0-66.0 Lymph % 28.3 % Normal 24.0-44.0 Deuel % 8.8 % High 0.0-5.0 Eos % 5.8 % High 0.0-3.0 Baso % 0.7 % Normal 0.0-1.0 Immature Granulocyte % 0.3 % Normal 0-3.0 Nucleated Red Blood Cell % 0.0 % Normal 0-0 Neutrophils # 5.5 10 Normal 1.5-8.5 Lymph # 2.8 10 Normal 1.5-5.0 Deuel # 0.9 10 High 0.0-0.8 Eos # 0.6 10 High 0.0-0.5 Baso # 0.1 10 Normal 0.0-0.2 Cardiac Injury Profile 02/01/2020 [facility] [address] [place] [address] [phone] CPK Creatine Phosphokinase 60 U/L Normal 26-19 2 CK-MB Value Mass < 1.0 NG/ML Normal <3.6 MB/CK Relative Index 1.67 Normal < Or =4 24 Liver Profile 02/01/2020 [facility] nter [address] [place] [address] [phone] Ast/Sgot 11 U/L Normal 7-37 Alt/SGPT 11 U/L Low 12-78 Alkaline Phosphatase 101 U/L Normal 45-117 Bilirubin,Total 0.1 mg/dL Low 0.2-1.0 Bilirubin,Direct < 0.1 mg/dL Normal 0.0-0.2 Total Protein 7.0 GM/DL Normal 6.4-8.2 Albumin 3.0 GM/DL Low 3.2-5.2 Albumin/Globulin Ratio 0.8 Low 1.2-2.2 Basic Metabolic Profile 02/01/2020 [place] [id number] [phone] Glucose, Fasting 103 mg/dL High 70-100 Blood [...] mg/dL Low 8.8-10.2 Laboratory test finding 02/01/[address] [address] [phone] Troponin I < 0.02 NG/ML Normal < 0.10 26 Lipase 80 U/L Normal 73-393 Thyroid Stimulating Hormone 0.753 uIU/ML Normal 0.358-3.740 Free T4 0.90 ng/dL Normal 0.76-1.46 Laboratory test finding 01/24/2020 [place] [facility] [place]: [place] [address] [phone] Sed Rate 54 mm/hr High 0 - [...] pathogens. DISCLAIMER: Testing was performed using the [employer] SARS-CoV-2 test. This test was developed and its performance characteristics determined by [facility]. This test has not been FDA cleared [...] Little GFR Left ESRD GFR <15 on [facility] 11 note:<nlbl:demographic_chang ed> 12 note:<nlbl:demographic_chang ed> 13 note:<nlbl:demographic_chang ed> 14 100-125 mg/dL PRE-DIABET ES/FASTING >126 mg/dL DIABETES/FASTING 15 CHRONIC KIDNEY DISEASE STAGI NG PER NKF STAGE I & II GFR >= 60 NORMAL TO MILDLY DECREASED STAGE III GFR 30-59 MODERATELY DECREASED STAGE IV GFR 15-29 SEVERELY DECREASED STAGE V GFR <15 VERY LITTLE GFR LEFT ESRD GFR <15 ON [facility] 16 Units are mL/min/1.73 m2 Chronic Kidney Disease Staging per NKF: Stage I & II GFR >=60 Normal to Mildly Decreased Stage III GFR 30-59 Moderately Decreased Stage IV GFR 15-29 Severely Decreased Stage V GFR <15 Very Little GFR Left ESRD GFR <15 on [facility] 17 THE CEA ASSAY IS PERFORMED O N THE [employer]UR BY CHEMILUMINESCENCE AND SHOULD NOT BE COMPARED [...] r research purposes only by the assay's bulldozer engineer. The performance characteristics of this product have not been established. Results should not be used as a diagnostic procedure without confirmation of the diagnosis by another medically established diagnostic product or procedure. Performed at: [address] [id number] [place]: Trevin Hardin MD, Phone: [phone] THERAPUTIC HUMAN INR VALUES INDICATIONS NORMAL [...] Little GFR Left ESRD GFR <15 on [facility] 26 Troponin I Reference Interva l for [facility] LOCI: 99th Percentile= 0.00-0.045 ng/ml Risk Stratification: <= 0.10 ng/ml Decreased Risk for Adverse Clinical Events. 0.10-1.50 ng/ml Increased Risk for Adv erse Clinical Events. Evaluation of additional criterion and/or repeat testing in 2-6 hours is suggested to rule out myocardial damage. >= 1.50 ng/ml Indicative of Myocardial Injury. Procedures Date Code Description Status 02/25/2020 [id number] Diabetic Retinal Eye Exam Comple bertram 09/13/2018 [id number] Diabetic Retinal Eye Exam Comple bertram 06/22/2018 [id number] Colonoscopy Completed 11/23/2015 [id number] Mammogram Completed 10/24/2014 [id number] Mammogram Completed 11/19/2013 [id number] Colonoscopy Completed 05/15/2012 [id number] Mammogram Completed 01/24/2011 [id number] Mammogram Completed 04/01/2010 [id number] Colonoscopy Completed Medical Devices Description No Information Available Encounters Type Date Location Provider Dx Diagnosis Office Visit [facility]2020 [facility] G[facility].29 Other chronic [...] 1:00 pm - Kaylene Hollis DO at [facility] 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
--- OUTSIDE RECORDS SUMMARY | 2020-07-31 23:41 | CCD | Continuity of Care Document ---
Author Author Carrie RAIN Organization Unknown Address [address] [address] Phone [phone] Care Team Providers Care Vendette Name Role Phone Gui Pineda MD [facility] [phone] Kaylene Rain DO AUTM Unavailable Cruzito Tan MD [facility] [phone] [facility] [phone] Problems Active Problems Provider Date Acute bronchitis [...] Kaylene Rain,DO 12/26/2018 Fluticasone Propionate 50mcg/Act Suspension [place] 2 Sprays In Each Nostril Every Morning as Needed 16units Dasia Garcia,[facility] 12/13/2018 Mometasone Furoate 0.1% Cream Apply [...] By Mouth Every Day 30tabs Dia Newsome, FING[employer] SEWER 0 01/06/[address]ox[address] HCL 60mg C[address] DR [...] Date Facility Test Result H/L Range Note Influenza A/B RSV Covid Amp 07/20/2020 [facility] [address] [place], [place] [id number] [phone] Influenza A Amplification NEGATIVE Normal Negati ve 1 Influenza B Amplification NEGATIVE Normal Negative 2 RSV Amplification NEGATIVE Normal Negative 3 Sars Covid-19 Amplification NEGATIVE Normal Negative 4 Laboratory test finding 07/10/2020 [facility] [address] [place], [place] [id number] [phone] Creatinine,Random Urine 341.0 mg/dL Normal 5 Total Protein,Random Urine 198.0 mg/dL High 0.0-12.0 6 CBC With Differential 07/10/[address] [address] [phone] White Blood Count 11.3 10 High 4.0-10.0 [...] 36.0-66.0 Lymph % 18.6 % Low 24.0-44.0 Door % 9.1 % High 0.0-5.0 Eos % 10.2 % High 0.0-3.0 Baso % 0.5 % Normal 0.0-1.0 Immature Granulocyte % 0.4 % Normal 0-3.0 Nucleated Red Blood Cell % 0.0 % Normal 0-0 Neutrophils # 6.9 10 Normal 1.5-8.5 Lymph # 2.1 10 Normal 1.5-5.0 Door # 1.0 10 High 0.0-0.8 Eos # 1.2 10 High 0.0-0.5 Baso # 0.1 10 Normal 0.0-0.2 Laboratory test finding 07/10/2020 [facility] [address] [place] [address] [phone] Erythrocyte Sedimentation Rate 79 mm/hr High 0 -30 Comprehensive Metabolic Profil 07/10/[address] [address] [phone] Glucose, Fasting 110 mg/dL High 70-100 Blood Urea Nitrogen 15 mg/dL Normal 7-18 Creatinine For GFR 1.55 mg/dL High 0.55-1.30 Glomerular Filtration Rate 34.8 Low >39 7 Sodium Level 138 mEq/L Normal 136-145 Potassium [...] 0.7 Low 1.2-2.2 Laboratory test finding 07/10/2020 [facility] [address] [place], [place] [id number] [phone] Complement C3 139 mg/dL Normal 90-180 8 Complement C4 29 mg/dL Normal 10-40 9 C Reactive Protein Quantitativ 2.83 mg/dL High 0.00-0.30 10 Complete Blood Count 05/26/2020 [facility] Bar Pointer: Dr Sai Pascal [place], [place] [id number] [phone] WBC 11.9 x10*3/UL High 4.1 - 10.9 [...] 2.0 - 7.8 Comprehensive Chem Profile 05/26/2020 [facility] Bar Pointer: [place] [address] [phone] Glucose 117 mg/dL High 74 - 99 11 BUN 12 mg/dL 7 - 18 Creatinine [...] Low >60 GFR 38 mL/min Low >60 12 CBC With Differential 04/29/2020 [facility] [address] [place] [address] [phone] White Blood Count 12.1 10 High 4.0-10.0 [...] 36.0-66.0 Lymph % 22.4 % Low 24.0-44.0 Door % 7.9 % High 0.0-5.0 Eos % 6.0 % High 0.0-3.0 Baso % 0.7 % Normal 0.0-1.0 Immature Granulocyte % 0.3 % Normal 0-3.0 Nucleated Red Blood Cell % 0.0 % Normal 0-0 Neutrophils # 7.6 10 Normal 1.5-8.5 Lymph # 2.7 10 Normal 1.5-5.0 Door # 1.0 10 High 0.0-0.8 Eos # 0.7 10 High 0.0-0.5 Baso # 0.1 10 Normal 0.0-0.2 Comprehensive Metabolic Profil 04/29/[address] [address] [phone] Glucose, Fasting 86 mg/dL Normal 70-100 Blood Urea Nitrogen 14 mg/dL Normal 7-18 Creatinine For GFR 1.68 mg/dL High 0.55-1.30 Glomerular Filtration Rate 31.8 Low >39 1 3 Sodium Level 140 mEq/L Normal 136-145 [...] 0.8 Low 1.2-2.2 Laboratory test finding 04/29/[address] [address] [phone] Carcinoembryonic Antigen 4.0 NG/ML High <2.5 14 Laboratory test finding 03/13/[address] [address] [phone] Phospholipids Level 151 mg/dL Normal 150-250 1 5 Serum Protein Electrophoresis 03/13/[address] [address] [phone] Albumin % 53.1 % Low 55.8-66.1 Nnhkb-2-Jujmkkiq % 5.2 % High 2.9-4.9 Guiqq-5-Drztculie % 14.0 % High 7.1-11.8 Sdtg-9-Pvyvqpaxd % 7.2 % Normal 4.7-7.2 Zvyl-5-Iwylqnmtc % 6.6 % High 3.2-6.5 Gamma Globulin % 13.9 % Normal 11.1-18.8 Albumin 3.66 GM/DL Normal 3.29-5.55 Corww-4-Oipcpqkiy 0.36 GM/DL Normal 0.17-0.41 Hzocp-2-Dgajojlnh 0.97 GM/DL Normal 0.42-0.99 Luxs-7-Vyhocxedh 0.50 GM/DL Normal 0.28-0.60 Gqyc-1-Bsmjzgizz 0.46 GM/DL Normal 0.19-0.55 Gamma Globulins 0.96 GM/DL Normal 0.65-1.58 Total Protein 6.9 GM/DL Normal 6.4-8.2 Spep Interpretation SEE COMMENT Normal 16 Spep Pathologist Review REV'D BY O ADJAP <SEE NOTE> Normal 17 Anti-Neutrophil Cytoplasmic AB 03/13/[address] [address] [phone] Cytoplasmic Neutrop AB Anca-C <1:20 titer Normal N eg:<1:20 Perinuclear AB Anca-P <1:20 titer Normal Neg:<1:20 18 Anca-Atypical <1:20 titer Normal Neg:<1:20 19 Laboratory test finding 03/13/2020 [facility] Bar Pointer: Dr Sai Pascal [place] [id number] [phone] Sed Rate 41 mm/hr High 0 - 15 PT & Aptt 02/01/2020 [facility] [address] [place] [address] [phone] Prothrombin Time 13.2 seconds Normal 11.8-14.0 Inr 0.99 Normal 20 Partial Thromboplastin Time 30.2 seconds Normal 25.0-38.4 CBC With Differential 02/01/[address] [address] [phone] White Blood Count 9.8 10 Normal 4.0-10.0 [...] 36.0-66.0 Lymph % 28.3 % Normal 24.0-44.0 Door % 8.8 % High 0.0-5.0 Eos % 5.8 % High 0.0-3.0 Baso % 0.7 % Normal 0.0-1.0 Immature Granulocyte % 0.3 % Normal 0-3.0 Nucleated Red Blood Cell % 0.0 % Normal 0-0 Neutrophils # 5.5 10 Normal 1.5-8.5 Lymph # 2.8 10 Normal 1.5-5.0 Door # 0.9 10 High 0.0-0.8 Eos # 0.6 10 High 0.0-0.5 Baso # 0.1 10 Normal 0.0-0.2 Cardiac Injury Profile 02/01/2020 [facility] [address] [place] [address] [phone] CPK Creatine Phosphokinase 60 U/L Normal 26-19 2 CK-MB Value Mass < 1.0 NG/ML Normal <3.6 MB/CK Relative Index 1.67 Normal < Or =4 21 Liver Profile 02/01/2020 [facility] [address] [place] [address] [phone] Ast/Sgot 11 U/L Normal 7-37 Alt/SGPT 11 U/L Low 12-78 Alkaline Phosphatase 101 U/L Normal 45-117 Bilirubin,Total 0.1 mg/dL Low 0.2-1.0 Bilirubin,Direct < 0.1 mg/dL Normal 0.0-0.2 Total Protein 7.0 GM/DL Normal 6.4-8.2 Albumin 3.0 GM/DL Low 3.2-5.2 Albumin/Globulin Ratio 0.8 Low 1.2-2.2 Basic Metabolic Profile 02/01/[address] [address] [phone] Glucose, Fasting 103 mg/dL High 70-100 Blood Urea Nitrogen 10 mg/dL Normal 7-18 Creatinine For GFR 1.34 mg/dL High 0.55-1.30 Glomerular Filtration Rate 41.3 Normal >39 2 2 Sodium Level 138 mEq/L Normal 136-145 Potassium Serum 4.4 mEq/L Normal 3.5-5.1 Chloride Level 107 mEq/L Normal 98-107 Carbon Dioxide Level 27 mEq/L Normal 21-32 Anion Gap 4 mEq/L Low 8-16 Calcium Level 8.5 mg/dL Low 8.8-10.2 Laboratory test finding 02/01/[address] [address] [phone] Troponin I < 0.02 NG/ML Normal < 0.10 23 Lipase 80 U/L Normal 73-393 Thyroid Stimulating Hormone 0.753 uIU/ML Normal 0.358-3.740 Free T4 0.90 ng/dL Normal 0.76-1.46 Laboratory test finding 01/24/2020 [facility] Bar Pointer: [place] [address] [phone] Sed Rate 54 mm/hr High 0 - 15 1 Negative results do not prec lude influenza or RSV virus infection and should not be used as the sole basis for treatment or other patient management decisions. 2 Negative results do not prec lude influenza or RSV virus infection and should not be used as the sole basis for treatment or other patient management decisions. 3 Negative results do not prec lude influenza or RSV virus infection and should not be used as the sole basis for treatment or other patient management decisions. 4 A false negative result may occur if [...] pathogens. DISCLAIMER: Testing was performed using the [employer] SARS-CoV-2 test. This test was developed and its performance characteristics determined by [employer]. This test has not been FDA cleared [...] the authorization is terminated or revoked sooner. 5 note:<nlbl:demographic_chang ed> 6 note:<nlbl:demographic_chang ed> 7 Units are mL/min/1.73 m2 Chronic Kidney Disease Staging per NKF: Stage I & II GFR >=60 Normal to Mildly Decreased Stage III GFR 30-59 Moderately Decreased Stage IV GFR 15-29 Severely Decreased Stage V GFR <15 Very Little GFR Left ESRD GFR <15 on CUT OFF MACHINE HELPER 8 note:<nlbl:demographic_chang ed> 9 note:<nlbl:demographic_chang ed> 10 note:<nlbl:demographic_chang ed> 11 100-125 mg/dL PRE-DIABET ES/FASTING >126 mg/dL DIABETES/FASTING 12 CHRONIC KIDNEY DISEASE STAGI NG PER NKF STAGE I & II GFR >= 60 NORMAL TO MILDLY DECREASED STAGE III GFR 30-59 MODERATELY DECREASED STAGE IV GFR 15-29 SEVERELY DECREASED STAGE V GFR <15 VERY LITTLE GFR LEFT ESRD GFR <15 ON CUT OFF MACHINE HELPER 13 Units are mL/min/1.73 m2 Chronic Kidney Disease Staging per NKF: Stage I & II GFR >=60 Normal to Mildly Decreased Stage III GFR 30-59 Moderately Decreased Stage IV GFR 15-29 Severely Decreased Stage V GFR <15 Very Little GFR Left ESRD GFR <15 on CUT OFF MACHINE HELPER 14 THE CEA ASSAY IS PERFORMED O N THE [employer] BY CHEMILUMINESCENCE AND SHOULD NOT BE COMPARED INTERCHANGEABLY WITH OTHER METHODS. IT SHOULD NOT BE USED ALONE A SCREENING TEST OR DIAGNOSIS FOR THE PRESENCE OR ABSENCE OF MALIGNANT DISEASE. PREDICTIONS OF DISEASE RECURRENCE SHOULD NOT BE BASED SOLELY ON VALUES OBTAINED FROM SERIAL PATIENT SERUM VALUES. 15 Results for this test are fo r research purposes only by the assay's quality assurance representative. The performance characteristics of this product have not been established. Results should not be used as a diagnostic procedure without confirmation of the diagnosis by another medically established diagnostic product or procedure. Performed at: [address] [id number] 61 Bar Pointer: Trevin Hardin MD, Phone: [phone] 16 NO M-SPIKE(S)NOTED. 17 REV'D BY Samaria OLIVARES 18 The presence of positive flu orescence exhibiting P-ANCA or C-ANCA patterns alone is not specific for the diagnosis of Carmen's Granulomatosis (WG) or microscopic polyangiitis. Decisions about treatment should not be based solely on ANCA IFA results. The International ANCA Group Consensus recommends follow up testing of positive sera with both VA- 3 and MPO-ANCA enzyme immunoassays. As m any as 5% serum samples are positive only by EIA. Ref. AM J Clin Pathol 1999;111:507-513. 19 The atypical pANCA pattern h as been observed in a significant percentage of patients with ulcerative colitis, primary sclerosing cholangitis and autoimmune hepatitis. 20 THERAPUTIC HUMAN INR VALUES INDICATIONS NORMAL RANGES PROPHYLAXIS/TREATMENT OF: VENOUS THROMBOSIS 2.0-3.0 PULMONARY EMBOLISM 2.0-3.0 PREVENTION OF SYSTEMIC EMBOLISM FROM: TISSUE HEART VALVES 2.0-3.0 ACUTE MYOCARDIAL INFARCTION 2.0-3.0 VALVULAR HEART DISEASE 2.0-3.0 ATRIAL FIBRILLATION 2.0-3.0 MECHANICAL VALVES(HIGH RISK) 2.5-3.5 RECURRENT MYOCARDIAL INFARCTION 2.5-3.5 21 DIAGNOSIS CRITERIA MMB ng/ml Relative Index (RI) NON-AMI < or = 5 N/A [place] > 5 < or = 4 AMI > 5 > 4 22 Units are mL/min/1.73 m2 Chronic Kidney Disease Staging per NKF: Stage I & II GFR >=60 Normal to Mildly Decreased Stage III GFR 30-59 Moderately Decreased Stage IV GFR 15-29 Severely Decreased Stage V GFR <15 Very Little GFR Left ESRD GFR <15 on CUT OFF MACHINE HELPER 23 Troponin I Reference Interva l for [employer] POS LOCI: 99th Percentile= 0.00-0.045 ng/ml Risk Stratification: <= 0.10 ng/ml Decreased Risk for Adverse Clinical Events. 0.10-1.50 ng/ml Increased Risk for Adv erse Clinical Events. Evaluation of additional criterion and/or repeat testing in 2-6 hours is suggested to rule out myocardial damage. >= 1.50 ng/ml Indicative of Myocardial Injury. Procedures Date Code Description Status 02/25/2020 119444355 Diabetic Retinal Eye Exam Comple bertram 09/13/2018 [id number] Diabetic Retinal Eye Exam Comple bertram 06/22/2018 [id number] Colonoscopy Completed 11/23/2015 [id number] Mammogram Completed 10/24/2014 [id number] Mammogram Completed 11/19/2013 [id number] Colonoscopy Completed 05/15/2012 [id number] Mammogram Completed 01/24/2011 [id number] Mammogram Completed 04/01/2010 [id number] Colonoscopy Completed Medical Devices Description No Information Available Encounters Type Date Location Provider Dx Diagnosis Office Visit 05/26/2020 2:00p [facility] Kaylene Rain ,DO G89.29 Other chronic pain J44.9 Chronic obstructive [...] Description Provider 06/30/2020 G89.29 Other chronic pain Loco Brumfield O 06/30/2020 J44.9 Chronic obstructive pulmonary di sease, unspecified Kaylene Rain,DO 06/30/2020 G25.81 Restless legs syndrome Kaylene juarez,DO 06/30/2020 I10 Essential (primary) hypertension Kaylene Rain,DO 05/26/2020 G89.29 Other chronic pain Loco Brumfield O 05/26/2020 J44.9 Chronic obstructive pulmonary di sease, unspecified Kaylene Rain,DO 05/26/2020 G25.81 Restless legs syndrome Kaylene juarez,DO 05/26/2020 I10 Essential (primary) hypertension Kaylene Rain,DO 05/26/2020 N18.30 Chronic kidney disease, stage 3 unspecified Kaylene Rain,DO 05/26/2020 M06.4 Inflammatory polyarthropathy Humphrey ra Rain,DO 05/26/2020 I25.5 Ischemic cardiomyopathy Kaylene Stacy ggs,DO [...] Rain,DO 05/20/2020 G25.81 Restless legs syndrome Kaylene juarez,DO 05/20/2020 I10 Essential (primary) hypertension Kaylene Rain,DO [...] 01/24/2020 M25.50 Pain in unspecified joint Kaylene Rain DO 01/24/2020 M25.50 Pain in unspecified joint Lab [facility] szymanski Plan of Treatment Future Appointment(s):* 07/22/2020 11:00 am - Lab Schedule at [facility] * 11/23/2020 1:00 pm - Kaylene Rain DO at [facility] 05/26/2020 - Kaylene Rain DO* [...] to Reason for Referral Status Appt Date [facility] Chest CT Screening Program CT EARLY CANCER LUNG SCREENING EX AM Sent [address] [place] [address] [phone] [facility] Hematology/Oncology DIRECTOR GLOBAL CONSULT FOR POSSIBLE OCCULT JAYME FONTANA Patient Notified 03/24/2020 [address] [place] [address] [phone]
--- OUTSIDE RECORDS SUMMARY | 2020-07-31 23:41 | CCD | Continuity of Care Document ---
Author Organization Unknown Address Unknown Phone Unavailable Care Team Providers Care Repair Weaver Name Role Phone Gui Pineda MD AUTM [phone] Kaylene Rain DO AUTM Unavailable Cruzito Tan MD AUTM [phone] [facility] Rheumatology AUTM [phone] [facility] Home Hea AUTM [phone] Problems Active Problems Provider Date Acute bronchitis [...] Kaylene Baronegs,DO 12/26/2018 Fluticasone Propionate 50mcg/Act Suspension [place] 2 Sprays In Each Nostril Every Morning as Needed 16units [facility] 12/13/2018 Mometasone Furoate 0.1% Cream [...] One Capsule By Mouth Twice A Day 180laya Kaylenejerrell RainDO 01/2016 Colace 100mg Capsules take one capsule by mouth twice a day 60izabelatuyet Kaylene Rain,DO 09/17/2014 Alprazolam 0.5mg Tablets 1 [...] H/L Range Note Laboratory test finding 07/24/2020 [facility] [address], [place] [address] [phone] Bedside Glucose 97 mg/dL Normal 83-110 Influenza A/B RSV Covid Amp 07/20/2020 [facility] [address], [place] [id number] [phone] Influenza A Amplification NEGATIVE Normal Negati ve 1 Influenza B Amplification NEGATIVE Normal Negative 2 RSV Amplification NEGATIVE Normal Negative 3 Sars Covid-19 Amplification NEGATIVE Normal Negative 4 Laboratory test finding 07/10/[address] [address] [phone] Creatinine,Random Urine 341.0 mg/dL Normal 5 Total Protein,Random Urine 198.0 mg/dL High 0.0-12.0 6 CBC With Differential 07/10/[address] [address] [phone] White Blood Count 11.3 10 High 4.0-10.0 [...] 36.0-66.0 Lymph % 18.6 % Low 24.0-44.0 [place] % 9.1 % High 0.0-5.0 Eos % 10.2 % High 0.0-3.0 Baso % 0.5 % Normal 0.0-1.0 Immature Granulocyte % 0.4 % Normal 0-3.0 Nucleated Red Blood Cell % 0.0 % Normal 0-0 Neutrophils # 6.9 10 Normal 1.5-8.5 Lymph # 2.1 10 Normal 1.5-5.0 [place] # 1.0 10 High 0.0-0.8 Eos # 1.2 10 High 0.0-0.5 Baso # 0.1 10 Normal 0.0-0.2 Laboratory test finding 07/10/[address] [address] [phone] Erythrocyte Sedimentation Rate 79 mm/hr High 0 -30 Comprehensive Metabolic Profil 07/10/[address] [id number] [phone] Glucose, Fasting 110 mg/dL High 70-100 Blood [...] 0.7 Low 1.2-2.2 Laboratory test finding 07/10/[address] [address] [phone] Complement C3 139 mg/dL Normal 90-180 8 Complement C4 29 mg/dL Normal 10-40 9 C Reactive Protein Quantitativ 2.83 mg/dL High 0.00-0.30 10 Complete Blood Count 05/26/2020 [place] [facility] User Interface Developer: Dr Sai Pascal [place], [place] [id number] [phone] WBC 11.9 x10*3/UL High 4.1 - 10.9 [...] 2.0 - 7.8 Comprehensive Chem Profile 05/26/2020 [place] User Interface Developer: Dr Sai Pascal [place], [place] [address]53 [phone] Glucose 117 mg/dL High 74 - 99 [...] Low >60 12 CBC With Differential 04/29/2020 [facility] [address], [place] [address] [phone] White Blood Count 12.1 10 High 4.0-10.0 [...] 36.0-66.0 Lymph % 22.4 % Low 24.0-44.0 [place] % 7.9 % High 0.0-5.0 Eos % 6.0 % High 0.0-3.0 Baso % 0.7 % Normal 0.0-1.0 Immature Granulocyte % 0.3 % Normal 0-3.0 Nucleated Red Blood Cell % 0.0 % Normal 0-0 Neutrophils # 7.6 10 Normal 1.5-8.5 Lymph # 2.7 10 Normal 1.5-5.0 [place] # 1.0 10 High 0.0-0.8 Eos # 0.7 10 High 0.0-0.5 Baso # 0.1 10 Normal 0.0-0.2 Comprehensive Metabolic Profil 04/29/[address] [address] [phone] Glucose, Fasting 86 mg/dL Normal 70-100 Blood [...] 0.8 Low 1.2-2.2 Laboratory test finding 04/29/[address] [address] [phone] Carcinoembryonic Antigen 4.0 NG/ML High <2.5 14 Laboratory test finding 03/13/2020 [facility] [address] [place] [address] [phone] Phospholipids Level 151 mg/dL Normal 150-250 1 5 Serum Protein Electrophoresis 03/13/2020 [facility] [address] [place] [address] [phone] Albumin % 53.1 % Low 55.8-66.1 Cdaag-4-Quemotvg % 5.2 % High 2.9-4.9 Ptmgm-5-Whxbdisca % 14.0 % High 7.1-11.8 Tokc-0-Mounjacce % 7.2 % Normal 4.7-7.2 Tukx-0-Ybcerwbkb % 6.6 % High 3.2-6.5 Gamma Globulin % 13.9 % Normal 11.1-18.8 Albumin 3.66 GM/DL Normal 3.29-5.55 Megyz-0-Oioyjqqzf 0.36 GM/DL Normal 0.17-0.41 Bjsps-4-Xurxolipm 0.97 GM/DL Normal 0.42-0.99 Diah-8-Lvuhbouuf 0.50 GM/DL Normal 0.28-0.60 Plud-9-Kewvigaax 0.46 GM/DL Normal 0.19-0.55 Gamma Globulins 0.96 GM/DL Normal 0.65-1.58 Total Protein 6.9 GM/DL Normal 6.4-8.2 Spep Interpretation SEE COMMENT Normal 16 Spep Pathologist Review REV'D BY O ADJAP <SEE NOTE> Normal 17 Anti-Neutrophil Cytoplasmic AB 03/13/2020 [place] [address] [phone] Cytoplasmic Neutrop AB Anca-C <1:20 titer Normal N eg:<1:20 Perinuclear AB Anca-P <1:20 titer Normal Neg:<1:20 18 Anca-Atypical <1:20 titer Normal Neg:<1:20 19 Laboratory test finding 03/13/2020 [place] [facility] [employer] [facility] User Interface Developer: [place] [address] [phone] Sed Rate 41 mm/hr High 0 - 15 PT & Aptt 02/01/2020 [facility] nter [address], [place] [address] [phone] Prothrombin Time 13.2 seconds Normal 11.8-14.0 Inr 0.99 Normal 20 Partial Thromboplastin Time 30.2 seconds Normal 25.0-38.4 CBC With Differential 02/01/2020 [facility] [address] [place] [address] [phone] White Blood Count 9.8 10 Normal 4.0-10.0 [...] 36.0-66.0 Lymph % 28.3 % Normal 24.0-44.0 [place]yer % 8.8 % High 0.0-5.0 Eos % 5.8 % High 0.0-3.0 Baso % 0.7 % Normal 0.0-1.0 Immature Granulocyte % 0.3 % Normal 0-3.0 Nucleated Red Blood Cell % 0.0 % Normal 0-0 Neutrophils # 5.5 10 Normal 1.5-8.5 Lymph # 2.8 10 Normal 1.5-5.0 [place] # 0.9 10 High 0.0-0.8 Eos # 0.6 10 High 0.0-0.5 Baso # 0.1 10 Normal 0.0-0.2 Cardiac Injury Profile 02/01/2020 [facility] [address] [place] [address] [phone] CPK Creatine Phosphokinase 60 U/L Normal 26-19 2 CK-MB Value Mass < 1.0 NG/ML Normal <3.6 MB/CK Relative Index 1.67 Normal < Or =4 21 Liver Profile 02/01/2020 [facility] nter [address] [place] [address] [phone] Ast/Sgot 11 U/L Normal 7-37 Alt/SGPT 11 U/L Low 12-78 Alkaline Phosphatase 101 U/L Normal 45-117 Bilirubin,Total 0.1 mg/dL Low 0.2-1.0 Bilirubin,Direct < 0.1 mg/dL Normal 0.0-0.2 Total Protein 7.0 GM/DL Normal 6.4-8.2 Albumin 3.0 GM/DL Low 3.2-5.2 Albumin/Globulin Ratio 0.8 Low 1.2-2.2 Basic Metabolic Profile 02/01/[address] [address] [phone] Glucose, Fasting 103 mg/dL High 70-100 Blood [...] mg/dL Low 8.8-10.2 Laboratory test finding 02/01/[address] [address] [phone] Troponin I < 0.02 NG/ML Normal < 0.10 23 Lipase 80 U/L Normal 73-393 Thyroid Stimulating Hormone 0.753 uIU/ML Normal 0.358-3.740 Free T4 0.90 ng/dL Normal 0.76-1.46 Laboratory test finding 01/24/2020 [place] [employer] [facility] [employer]ly User Interface Developer: [place] [address] [phone] Sed Rate 54 mm/hr High 0 - [...] pathogens. DISCLAIMER: Testing was performed using the [employer] SARS-CoV-2 test. This test was developed and its performance characteristics determined by [employer]. This test has not been FDA cleared [...] Little GFR Left ESRD GFR <15 on TOOL POLISHING MACHINE OPERATOR 8 note:<nlbl:demographic_chang ed> 9 note:<nlbl:demographic_chang ed> 10 note:<nlbl:demographic_chang ed> 11 100-125 mg/dL PRE-DIABET ES/FASTING >126 mg/dL DIABETES/FASTING 12 CHRONIC KIDNEY DISEASE STAGI NG PER NKF STAGE I & II GFR >= 60 NORMAL TO MILDLY DECREASED STAGE III GFR 30-59 MODERATELY DECREASED STAGE IV GFR 15-29 SEVERELY DECREASED STAGE V GFR <15 VERY LITTLE GFR LEFT ESRD GFR <15 ON TOOL POLISHING MACHINE OPERATOR 13 Units are mL/min/1.73 m2 Chronic Kidney Disease Staging per NKF: Stage I & II GFR >=60 Normal to Mildly Decreased Stage III GFR 30-59 Moderately Decreased Stage IV GFR 15-29 Severely Decreased Stage V GFR <15 Very Little GFR Left ESRD GFR <15 on TOOL POLISHING MACHINE OPERATOR 14 THE CEA ASSAY IS PERFORMED O N THE [employer] BY CHEMILUMINESCENCE AND SHOULD NOT BE COMPARED INTERCHANGEABLY WITH OTHER METHODS. IT SHOULD NOT BE USED ALONE A SCREENING TEST OR DIAGNOSIS FOR THE PRESENCE OR ABSENCE OF MALIGNANT DISEASE. PREDICTIONS OF DISEASE RECURRENCE SHOULD NOT BE BASED SOLELY ON VALUES OBTAINED FROM SERIAL PATIENT SERUM VALUES. 15 Results for this test are fo r research purposes only by the assay's electric motor winders assembler. The performance characteristics of this product have not been established. Results should not be used as a diagnostic procedure without confirmation of the diagnosis by another medically established diagnostic product or procedure. Performed at: [facility] [id number] 17 User Interface Developer: Trevin Hardin MD, Phone: [phone] 16 NO M-SPIKE(S)NOTED. 17 REV'D BY Samaria OLIVARES 18 The presence of positive flu orescence exhibiting P-ANCA or C-ANCA patterns alone is not specific for the diagnosis of Carmen's Granulomatosis (WG) or microscopic polyangiitis. Decisions about treatment should not be based solely on ANCA IFA results. The [employer] ANCA [employer] Consensus recommends follow up testing of positive sera with both TX- 3 and MPO-ANCA enzyme immunoassays. As m [...] Little GFR Left ESRD GFR <15 on TOOL POLISHING MACHINE OPERATOR 23 Troponin I Reference Interva l for [employer] [place] LOCI: 99th Percentile= 0.00-0.045 ng/ml Risk Stratification: <= 0.10 ng/ml Decreased Risk for Adverse Clinical Events. 0.10-1.50 ng/ml Increased Risk for Adv erse Clinical Events. Evaluation of additional criterion and/or repeat testing in 2-6 hours is suggested to rule out myocardial damage. >= 1.50 ng/ml Indicative of Myocardial Injury. Procedures Date Code Description Status 02/25/2020 [id number] Diabetic Retinal Eye Exam Comple bertram 09/13/2018 [id number] Diabetic Retinal Eye Exam Comple bertram 06/22/2018 [id number] Colonoscopy Completed 11/23/2015 [id number] Mammogram Completed 10/24/2014 [id number] Mammogram Completed 11/19/2013 [id number] Colonoscopy Completed 05/15/2012 [id number] Mammogram Completed 01/24/2011 [id number] Mammogram Completed 04/01/2010 [id number] Colonoscopy Completed Medical Devices Description No Information Available Encounters Type Date Location Provider Dx Diagnosis Office Visit 05/26/2020 2:00p [facility] Kaylene Rain DO G89.29 Other [...] Description Provider 06/30/2020 G89.29 Other chronic pain oLco Brumfield 06/30/2020 J44.9 Chronic obstructive pulmonary di sease, unspecified Kaylene Rain DO 06/30/2020 G25.81 Restless legs syndrome Kaylene juarez DO 06/30/2020 I10 Essential (primary) hypertension Kaylene Rain,DO [...] kidney disease, stage 3 (moderate) Kaylenejerrell Rain,DO 03/13/2020 N18.3 Chronic kidney disease, stage 3 (moderate) Lab Schedule 01/31/2020 J44.9 Chronic obstructive pulmonary di sease, unspecified Kaylene Rain, 01/31/2020 G89.29 Other chronic pain Loco Brumfield O 01/31/2020 N18.3 Chronic kidney disease, stage 3 (moderate) Kaylene Rain, 01/31/2020 G25.81 Restless legs syndrome Kaylene juarez, 01/24/2020 M25.50 Pain in unspecified joint Kaylene Rain,DO 01/24/2020 M25.50 Pain in unspecified joint Lab Sc [facility] Plan of Treatment Future Appointment(s):* 11/23/2020 1:00 pm - Kaylene Rain DO at [facility] 05/26/2020 - Kaylene Rain DO* [...] Dr Reason for Referral Status Appt Date [facility] Chest CT Screening Program CT EARLY CANCER LUNG SCREENING EX AM Sent [address] [place] [address] [phone] [facility] Hematology/Oncology CONTACT FINGER ASSEMBLER CONSULT FOR POSSIBLE OCCULT JAYME FONTANA Patient Notified 03/24/2020 [address] [place] [address] [phone]
--- OUTSIDE RECORDS SUMMARY | 2020-07-31 23:41 | CCD | Continuity of Care Document ---
Author Author Carrie HOLLIS Organization Unknown Address [address] [address] Phone [phone] Care Team Providers Care Tooth Cutter Spur Name Role Phone Gui Pineda MD AUTM [phone] Kaylene Hollis DO AUTM Unavailable Cruzito Tan MD AUTM [phone] [facility] Rheumatology AUTM [phone] [facility] Home Hea AUTM [phone] Problems Active Problems Provider Date Acute bronchitis [...] Kaylene Hollis,DO 12/26/2018 Fluticasone Propionate 50mcg/Act Suspension [place] 2 Sprays In Each Nostril Every Morning as Needed 16units Dasia Garcia,UNISHEAR OPERATOR 12/13/2018 Mometasone Furoate 0.1% Cream Apply To [...] Date Facility Test Result H/L Range Note Prothrombin Time/Inr 07/24/2020 [facility] enter [address] [place] [id number] [phone] Prothrombin Time 13.1 seconds Normal 12.5-14.3 Inr 0.97 Normal 1 Laboratory test finding 07/24/2020 [facility] [address] [place] [address] [phone] Partial Thromboplastin Time 31.0 seconds Normal 24 .2-38.5 Laboratory test finding 07/24/2020 [facility] [address] [place] [address] [phone] Bedside Glucose 97 mg/dL Normal 83-110 Influenza A/B RSV Covid Amp 07/20/2020 [facility] [address] [place] [address] [phone] Influenza A Amplification NEGATIVE Normal Negati ve 2 Influenza B Amplification NEGATIVE Normal Negative 3 RSV Amplification NEGATIVE Normal Negative 4 Sars Covid-19 Amplification NEGATIVE Normal Negative 5 Laboratory test finding 07/10/2020 [facility] [address] [place] [address] [phone] Creatinine,Random Urine 341.0 mg/dL Normal 6 Total Protein,Random Urine 198.0 mg/dL High 0.0-12.0 7 CBC With Differential 07/10/[address] [address] [phone] White Blood Count 11.3 10 High 4.0-10.0 [...] 36.0-66.0 Lymph % 18.6 % Low 24.0-44.0 [place] % 9.1 % High 0.0-5.0 Eos % 10.2 % High 0.0-3.0 Baso % 0.5 % Normal 0.0-1.0 Immature Granulocyte % 0.4 % Normal 0-3.0 Nucleated Red Blood Cell % 0.0 % Normal 0-0 Neutrophils # 6.9 10 Normal 1.5-8.5 Lymph # 2.1 10 Normal 1.5-5.0 [place] # 1.0 10 High 0.0-0.8 Eos # 1.2 10 High 0.0-0.5 Baso # 0.1 10 Normal 0.0-0.2 Laboratory test finding 07/10/[address] [address] [phone] Erythrocyte Sedimentation Rate 79 mm/hr High 0 -30 Comprehensive Metabolic Profil 07/10/[address] [address] [phone] Glucose, Fasting 110 mg/dL High 70-100 Blood [...] 0.7 Low 1.2-2.2 Laboratory test finding 07/10/[address] [address] [phone] Complement C3 139 mg/dL Normal 90-180 9 Complement C4 29 mg/dL Normal 10-40 10 C Reactive Protein Quantitativ 2.83 mg/dL High 0.00-0.30 11 Complete Blood Count 05/26/2020 [facility] Olive Grader: [place] [address] [phone] WBC 11.9 x10*3/UL High 4.1 - 10.9 [...] 2.0 - 7.8 Comprehensive Chem Profile 05/26/2020 [place] [facility]jiv[facility] Olive Grader: [place] [address] [phone] Glucose 117 mg/dL High 74 - 99 [...] Low >60 13 Laboratory test finding 04/29/2020 [facility] [address] [place] [address] [phone] Carcinoembryonic Antigen 4.0 NG/ML High <2.5 14 Comprehensive Metabolic Profil 04/29/[address] [address] [phone] Glucose, Fasting 86 mg/dL Normal 70-100 Blood [...] 0.8 Low 1.2-2.2 CBC With Differential 04/29/[address] [address] [phone] White Blood Count 12.1 10 High 4.0-10.0 [...] 36.0-66.0 Lymph % 22.4 % Low 24.0-44.0 [place] % 7.9 % High 0.0-5.0 Eos % 6.0 % High 0.0-3.0 Baso % 0.7 % Normal 0.0-1.0 Immature Granulocyte % 0.3 % Normal 0-3.0 Nucleated Red Blood Cell % 0.0 % Normal 0-0 Neutrophils # 7.6 10 Normal 1.5-8.5 Lymph # 2.7 10 Normal 1.5-5.0 [place] # 1.0 10 High 0.0-0.8 Eos # 0.7 10 High 0.0-0.5 Baso # 0.1 10 Normal 0.0-0.2 Laboratory test finding 03/13/2020 [place] [facility] [employer] [facility] Olive Grader: Dr Sai Pascal [place] [id number] [phone] Sed Rate 41 mm/hr High 0 - 15 Anti-Neutrophil Cytoplasmic AB 03/13/[address] [address] [phone] Cytoplasmic Neutrop AB Anca-C <1:20 titer Normal N eg:<1:20 Perinuclear AB Anca-P <1:20 titer Normal Neg:<1:20 16 Anca-Atypical <1:20 titer Normal Neg:<1:20 17 Serum Protein Electrophoresis 03/13/[address] [address] [phone] Albumin % 53.1 % Low 55.8-66.1 Wslla-9-Hirrjlmt % 5.2 % High 2.9-4.9 Xvbgn-3-Khlcylvbf % 14.0 % High 7.1-11.8 Qcga-3-Uvdykwjff % 7.2 % Normal 4.7-7.2 Cjwx-7-Hoaizgtlv % 6.6 % High 3.2-6.5 Gamma Globulin % 13.9 % Normal 11.1-18.8 Albumin 3.66 GM/DL Normal 3.29-5.55 Tnaeg-1-Rytsmtlbm 0.36 GM/DL Normal 0.17-0.41 Bxkvb-1-Oupufopnt 0.97 GM/DL Normal 0.42-0.99 Yysn-0-Mnfktaeto 0.50 GM/DL Normal 0.28-0.60 Hxhd-1-Xiezrdcpr 0.46 GM/DL Normal 0.19-0.55 Gamma Globulins 0.96 GM/DL Normal 0.65-1.58 Total Protein 6.9 GM/DL Normal 6.4-8.2 Spep Interpretation SEE COMMENT Normal 18 Spep Pathologist Review REV'D BY O NADEEN <SEE NOTE> Normal 19 Laboratory test finding 03/13/2020 [facility] [address] [place] [address] [phone] Phospholipids Level 151 mg/dL Normal 150-250 2 0 PT & Aptt 02/01/2020 [facility] nter [address] [place] [address] [phone] Prothrombin Time 13.2 seconds Normal 11.8-14.0 Inr 0.99 Normal 21 Partial Thromboplastin Time 30.2 seconds Normal 25.0-38.4 CBC With Differential 02/01/2020 [facility] [address] [place] [address] [phone] White Blood Count 9.8 10 Normal 4.0-10.0 [...] 36.0-66.0 Lymph % 28.3 % Normal 24.0-44.0 [place] % 8.8 % High 0.0-5.0 Eos % 5.8 % High 0.0-3.0 Baso % 0.7 % Normal 0.0-1.0 Immature Granulocyte % 0.3 % Normal 0-3.0 Nucleated Red Blood Cell % 0.0 % Normal 0-0 Neutrophils # 5.5 10 Normal 1.5-8.5 Lymph # 2.8 10 Normal 1.5-5.0 [place] # 0.9 10 High 0.0-0.8 Eos # 0.6 10 High 0.0-0.5 Baso # 0.1 10 Normal 0.0-0.2 Cardiac Injury Profile 02/01/[address] [address] [phone] CPK Creatine Phosphokinase 60 U/L Normal 26-19 2 CK-MB Value Mass < 1.0 NG/ML Normal <3.6 MB/CK Relative Index 1.67 Normal < Or =4 22 Liver Profile 02/01/2020 [facility] nter [address] [place] [address] [phone] Ast/Sgot 11 U/L Normal 7-37 Alt/SGPT 11 U/L Low 12-78 Alkaline Phosphatase 101 U/L Normal 45-117 Bilirubin,Total 0.1 mg/dL Low 0.2-1.0 Bilirubin,Direct < 0.1 mg/dL Normal 0.0-0.2 Total Protein 7.0 GM/DL Normal 6.4-8.2 Albumin 3.0 GM/DL Low 3.2-5.2 Albumin/Globulin Ratio 0.8 Low 1.2-2.2 Basic Metabolic Profile 02/01/[address] [address] [phone] Glucose, Fasting 103 mg/dL High 70-100 Blood [...] mg/dL Low 8.8-10.2 Laboratory test finding 02/01/[address] [address] [phone] Troponin I < 0.02 NG/ML Normal < 0.10 24 Lipase 80 U/L Normal 73-393 Thyroid Stimulating Hormone 0.753 uIU/ML Normal 0.358-3.740 Free T4 0.90 ng/dL Normal 0.76-1.46 Laboratory test finding 01/24/2020 [place] [employer] [facility] tia Olive Grader: [place] [address] [phone] Sed Rate 54 mm/hr High 0 - [...] pathogens. DISCLAIMER: Testing was performed using the [employer] SARS-CoV-2 test. This test was developed and its performance characteristics determined by [employer] This test has not been FDA cleared [...] Little GFR Left ESRD GFR <15 on SIGNING AGENT 9 note:<nlbl:demographic_chang ed> 10 note:<nlbl:demographic_chang ed> 11 note:<nlbl:demographic_chang ed> 12 100-125 mg/dL PRE-DIABET ES/FASTING >126 mg/dL DIABETES/FASTING 13 CHRONIC KIDNEY DISEASE STAGI NG PER NKF STAGE I & II GFR >= 60 NORMAL TO MILDLY DECREASED STAGE III GFR 30-59 MODERATELY DECREASED STAGE IV GFR 15-29 SEVERELY DECREASED STAGE V GFR <15 VERY LITTLE GFR LEFT ESRD GFR <15 ON SIGNING AGENT 14 THE CEA ASSAY IS PERFORMED O N THE [employer] BY CHEMILUMINESCENCE AND SHOULD NOT BE COMPARED [...] Little GFR Left ESRD GFR <15 on SIGNING AGENT 16 The presence of positive flu orescence [...] r research purposes only by the assay's fast food attendant. The performance characteristics of this product have not been established. Results should not be used as a diagnostic procedure without confirmation of the diagnosis by another medically established diagnostic product or procedure. Performed at: [address] [id number] 61 Olive Grader: Trevin Hardin MD, Phone: [phone] THERAPUTIC HUMAN INR VALUES INDICATIONS NORMAL [...] Little GFR Left ESRD GFR <15 on SIGNING AGENT 24 Troponin I Reference Interva l for [employer] [place] LOCI: 99th Percentile= 0.00-0.045 ng/ml Risk Stratification: <= 0.10 ng/ml Decreased Risk for Adverse Clinical Events. 0.10-1.50 ng/ml Increased Risk for Adv erse Clinical Events. Evaluation of additional criterion and/or repeat testing in 2-6 hours is suggested to rule out myocardial damage. >= 1.50 ng/ml Indicative of Myocardial Injury. Procedures Date Code Description Status 02/25/2020 [id number] Diabetic Retinal Eye Exam Comple bertram 09/13/2018 [id number] Diabetic Retinal Eye Exam Comple bertram 06/22/2018 [id number] Colonoscopy Completed 11/23/2015 [id number] Mammogram Completed 10/24/2014 [id number] Mammogram Completed 11/19/2013 [id number] Colonoscopy Completed 05/15/2012 [id number] Mammogram Completed 01/24/2011 [id number] Mammogram Completed 04/01/2010 [id number] Colonoscopy Completed Medical Devices Description No Information Available Encounters Type Date Location Provider Dx Diagnosis Office Visit 05/26/2020 2:00p [facility] Kaylene Hollis ,DO G89.29 Other chronic pain J44.9 Chronic [...] Hollis,DO 06/30/2020 G25.81 Restless legs syndrome Kaylene Barone gs,DO 06/30/2020 I10 Essential (primary) hypertension Kaylene Hollis,DO 05/26/2020 G89.29 Other chronic pain Kaylene Hollis,D O 05/26/2020 J44.9 Chronic obstructive pulmonary di sease, unspecified Kaylene Hollis,DO 05/26/2020 G25.81 Restless legs syndrome Kaylene Barone gs,DO 05/26/2020 I10 Essential (primary) hypertension Kaylene Hollis,DO 05/26/2020 N18.30 Chronic kidney disease, stage 3 unspecified Kaylene Koffi,DO 05/26/2020 M06.4 Inflammatory polyarthropathy Humphrey ra Baronegs,DO 05/26/2020 I25.5 Ischemic cardiomyopathy Kaylene Regis ggs,DO 05/26/2020 D50.9 Iron deficiency anemia, unspecif ied Kaylene Koffi,DO 05/26/2020 F17.210 Nicotine dependence, cigarettes, uncomplicated Kaylene Hollis,DO 05/26/2020 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 Kaylene Koffi, DO 05/26/2020 M79.7 Fibromyalgia Kaylene Koffi,DO 05/26/2020 F41.0 Panic disorder [episodic paroxys mal anxiety] Kaylene Hollis,DO 05/26/2020 Z86.73 Personal history of transient ischemic attack (TIA), and cerebral infarction without residual deficits Kaylene Koffi,DO 05/20/2020 G89.29 Other chronic pain Kaylene Hollis,D O 05/20/2020 J44.9 Chronic obstructive pulmonary di sease, unspecified Kaylene Hollis,DO 05/20/2020 G25.81 Restless legs syndrome Kaylene juarez,DO 05/20/2020 I10 Essential (primary) hypertension Kaylene Koffi,DO 04/08/2020 J44.9 Chronic obstructive pulmonary di sease, unspecified Kaylene Hollis,DO 04/08/2020 G89.29 Other chronic pain Kaylene Baronegs,D O 04/08/2020 G25.81 Restless legs syndrome Kaylene Barone larry,DO 04/08/2020 I10 Essential (primary) hypertension Kaylene Koffi,DO 03/13/2020 N18.3 Chronic kidney disease, stage 3 (moderate) Kaylene Hollis,DO 03/13/2020 N18.3 Chronic kidney disease, stage 3 (moderate) Lab Schedule 01/31/2020 J44.9 Chronic obstructive pulmonary di sease, unspecified Kaylene Koffi,DO 01/31/2020 G89.29 Other chronic pain Kaylene Baronegs,D O 01/31/2020 N18.3 Chronic kidney disease, stage 3 (moderate) Kaylene Hollis,DO 01/31/2020 G25.81 Restless legs syndrome Kaylene Barone larry,DO 01/24/2020 M25.50 Pain in unspecified joint Kaylene Hollis,DO 01/24/2020 M25.50 Pain in unspecified joint Lab Sc [facility] Plan of Treatment Future Appointment(s):* 11/23/2020 1:00 pm - Kaylene Hollis DO at [facility] 05/26/2020 - Kaylene Hollis DO* [...] to Reason for Referral Status Appt Date [facility] Chest CT Screening Program CT EARLY CANCER LUNG SCREENING EX AM Sent [address] [place] [address] [phone] [facility] Hematology/Oncology MIXER SLAGMAN CONSULT FOR POSSIBLE OCCULT JAYME FONTANA Patient Notified 03/24/2020 [address] [place] [address] [phone]
--- OUTSIDE RECORDS SUMMARY | 2020-07-31 23:44 | CCD ---
Author Author [facility] Address Unknown Phone Unavailable Care Team Providers Care Director Of Infection Prevention Name Role Phone Koffi, Kaylene DO Unavailable [...] DO Unavailable Unavailable Kocan, J Maria Elena DRAWING PRESS OPERATOR Unavailable Unavailable Kocan, J Maria Elena DRAWING PRESS OPERATOR Unavailable Unavailable Kocan, J Maria Elena DRAWING PRESS OPERATOR Unavailable Unavailable Kocan, J Maria Elena DRAWING PRESS OPERATOR Unavailable Unavailable Kocan, J Maria Elena DRAWING PRESS OPERATOR Unavailable Unavailable Kocan, J Maria Elena DRAWING PRESS OPERATOR Unavailable Unavailable Kocan, J Maria Elena DRAWING PRESS OPERATOR Unavailable Unavailable Kocan, J Maria Elena DRAWING PRESS OPERATOR Unavailable Unavailable Kocan, J Maria Elena DRAWING PRESS OPERATOR Unavailable Unavailable Kocan, J Maria Elena DRAWING PRESS OPERATOR Unavailable Unavailable Kocan, J Maria Elena DRAWING PRESS OPERATOR Unavailable Unavailable Kocan, J Maria Elena DRAWING PRESS OPERATOR Unavailable Unavailable Kocan, J Maria Elena DRAWING PRESS OPERATOR Unavailable Unavailable Koffi, Kaylene DO Unavailable Unavailable [...] Koffi, Kaylene DO Unavailable Unavailable Clark, L Rdaha RPA Unavailable Unavailable Clark, L Radha RPA [...] I FIGUEROA PA Unavailable Unavailable DRAZEK, I FIGUEORA PA Unavailable Unavailable DRAZEK, I FIGUEROA PA [...] Unavailable DRAZEK, I FIGUEROA PA Unavailable Unavailable RODRIJAYSON MD Unavailable Unavailable RODRIJAYSON MD Unavailable Unavailable RODRI, JAYSON CURRIE Unavailable Unavailable [...] Unavailable Unavailable RODRI, JAYSON CURRIE Unavailable Unavailable ORDRI, JAYSON CURRIE Unavailable Unavailable RODRI, JAYSON CURRIE [...] is protected by Article 27-F of the [facility] Public Health law. If you continue you may have access to information: Regarding HIV / AIDS; Provided by facilities licensed or operated by the [facility] Office of Mental Health; or Provided by the [facility] Office for People With Developmental Disabilities. If such information is present, then the following [facility] mandated warning applies: This information has [...] law may result in a fine or detention sentence or both. A general authorization for the release of medical or other information is NOT sufficient authorization for further disc losure. Family History Family Member Name Family Member Gender Family Member Status Date o f Status Description Data Source(s) Unknown Unknown Problem MEDENT ([facility] ) Unknown Unknown Problem [facility] ([facility]) Unknown Unknown Problem [facility] ([facility]) Unknown Unknown Problem [facility] ([facility]) Unknown Unknown Problem [facility] ([facility] ) Encounters Encounter Providers Location Date Indications Data Source(s ) Unknown [address] [place] [id number] 07/28/2020 12:00:00 AM EST eCW1 (Critical access hospital) Office Visit, Est Pt., Level 4 [facility] [place] [address] 07/13/2020 12:00:00 AM EST eCW1 (Formerly [facility]) Office Visit Attender: Cruzito Tan MD Main office - [place] 07/01/2020 01:45:00 PM EST MED[facility] ([facility] ) Office Visit, Est Pt., Level 5 [facility] [address] [place] [address] 06/24/2020 12:00:00 AM EST eCW1 (Formerly [facility]) Outpatient Attender: FIGUEROA VAZ Physical Therapy 06/18/2020 0 9:45:00 AM EST MEDENT ([facility] ) Outpatient Attender: Maria Elena [email or web address] 2019 12:00:00 AM EST - 06/12/2020 02:38:36 PM EST [facility] [place] [address] [facility] [address] 06/09/2020 12:00:00 AM EST [facility]CW1 [facility] [place] [address] [facility] [address] 06/08/2020 12:00:00 AM EST eCW1 [facility] Office Visit, Est Pt., Level 5 [address] [place] [address] 06/04/2020 12:00:00 AM EST eCW1 ([facility]ly [facility]) Outpatient Attender: Kaylene Desir 05/26 01:00:00 PM EST [facility] ([facility] ) [place] [address] [facility] [address] 05/21/2020 12:00:00 AM EST eCW1 (Critical access hospital) Outpatient [address] [facility] [place] [address] 05/19/2020 12:00:00 AM EST eCW1 (Critical access hospital) [place] [address] [facility] [address] 05/12/2020 12:00:00 AM EST eCW1 (Critical access hospital) Outpatient [address] [facility] [place] [address] 05/05/2020 12:00:00 AM EST eCW1 (Critical access hospital) Outpatient Attender: FIGUEROA VAZ Physical Therapy 04/28/2020 0 3:15:00 PM EDT MED[facility] ([facility]) Office Visit Attender: Cruzito Tan MD Main office - [place] 01/28/2020 02:00:00 PM EDT MED[facility] ([facility]) [place] [address] [facility] [address] 01/21/2020 12:00:00 AM EDT eCW1 (Critical access hospital) Outpatient Referrer: Kaylene Rain DO 12/23/2019 07:50:00 AM EDT [facility] Outpatient Attender: Kaylene Desir 12/18 02:00:00 PM EDT MEDENT ([facility] ) Outpatient Attender: JAYSON CRUZ 0 12:00:00 AM EDT - 10/24/2019 09:09:45 AM EDT [facility] Outpatient Attender: Kaylene Koffi HERNÁNDEZ Gwyn Parrahema 10/21 02:45:00 PM EDT MEDENT ([facility] ) Outpatient Referrer: Kaylene Rain DO 10/10/2019 01:59:00 PM EDT [facility] Outpatient Referrer: Kaylene Rain DO 10/02/2019 03:18:00 PM EDT [facility] Outpatient Referrer: Kaylene Rain DO 10/02/2019 10:31:00 AM EDT [facility] Outpatient Attender: Kaylene Braonelarry HERNÁNDEZ Gwyn Parrahema 09/22 02:45:00 PM EDT MEDENT ([facility] ) Outpatient Attender: Radha Clark RPA Angelica/Macon/Bryson/R eindl 09/17/2019 11:00:00 AM EDT MED[facility] ([facility]) Outpatient Attender: Kaylene Koffi HERNÁNDEZ Gwyn Underwoodeliot 09/05 01:00:00 PM EST MEDENT ([facility] ) Outpatient Referrer: JAYSON CRUZ 08/07/2019 12:00:00 AM EST [facility] Outpatient Attender: Kaylene Koffi HERÁNNDEZ Gwyn Underwoodeliot 07/23 12:30:00 PM EST MEDENT ([facility] ) Outpatient Attender: JAYSON MACE MDConsultant: JAYSON Avitia JP.WAT-SJP 07/10/2019 12:22:38 PM EST - 07/10/2019 02:02:15 PM EST [facility] Outpatient Referrer: Kaylene Rain DO 07/08/2019 02:11:00 PM EST [facility] Outpatient Attender: Radha Clark RPA Angelica/Macon/Bryson/R eindl 06/19/2019 10:15:00 AM EST MED[facility] ([facility]) Outpatient Attender: Kaylene Desir 06/17 01:30:00 PM EST MEDENT ([facility] ) Outpatient Referrer: Kaylene Rain DO 06/14/2019 02:15:00 PM EST [facility] Outpatient Attender: Cruzito Tan MD Main office - [place] 06/12/2019 12:30:00 PM EST MED[facility] ([facility]) Immunizations Vaccine Date Status Description Data Source(s) INFLUENZA VIRUS VACCINE QUADRIVAL SPLIT 2019-(65 YR UP)/PF 04/14/2020 12:00:00 AM EDT completed [facility] Medications Medication Brand Name Start Date Product Form Dose Route Admi nistrative Instructions Pharmacy Instructions Status Indications Reaction Description Data Source(s) Acetaminophen 325 MG / Hydrocodone Bitartrate 5 MG Ora l Tablet Hydrocodone-Acetaminophen 07/29/2020 12:00:00 AM EST active [facility] ([facility]) tizanidine 4 MG Oral Capsule Tizanidine HCL 07/29/2020 12:00:00 AM EST ORAL active [facility] ([facility]) 4 mg 07/29/2020 12:00:00 AM EST capsule 30 TAKE ONE CAPSULE BY MOUTH THREE TIMES A DAY TAKE ONE CAPSULE BY MOUTH THREE TIMES A DAY SOLD: 07/29/2020 [facility] 5-325 mg 07/29/2020 12:00:00 AM EST tablet 15 TAKE ONE TABLET BY MOUTH EVERY 4 HOURS NEEDED FOR PAIN MAXIMUM DAILY DOSE = 4 TABLETS TAKE ONE TABLET BY MOUTH EVERY 4 HOURS NEEDED FOR PAIN MAXIMUM DAILY DOSE = 4 TABLETS SOLD: 07/29/2020 [facility] 750 mg 07/28/2020 12:00:00 AM EST tablet 21 TAKE ONE TABLET BY MOUTH THREE TIMES A DAY TAKE ONE TABLET BY MOUTH THREE TIMES A DAY SOLD: 07/28/2020 [facility] 5 % 07/26/2020 12:00:00 AM EST adhesive patch,medicate d 15 APPLY ONE PATCH TOPICALLY EVERY DAY, MAY WEAR FOR UP TO 12 HOURS THEN LEAVE OFF FOR 12 HOURS APPLY ONE PATCH TOPICALLY EVERY DAY, MAY WEAR FOR UP TO 12 HOURS THEN LEAVE OFF FOR 12 HOURS SOLD: 07/26/2020 [facility] 200 unit/actuation 07/25/2020 12:00:00 AM EST spray,non-aero dianne 3 SPRAY 1 SPRAY IN ONE NOSTRIL DAILY SPRAY 1 SPRAY IN ONE NOSTRIL DAILY SOLD: 07/25/2020 [facility] Glycopyrrolate 1 MG Oral Tablet Glycopyrrolate 07/23/2020 12:00:00 AM EST ORAL completed MEDENT ([facility]) 35 mg 07/22/2020 12:00:00 AM EST tablet 4 TAKE ONE TABLET BY MOUTH WEEKLY TAKE ONE TABLET BY MOUTH WEEKLY SOLD: 07/22/2020 [facility] 50 mg 07/21/2020 12:00:00 AM EST tablet 20 TAKE ONE TABLET BY MOUTH EVERY 6 HOURS NEEDED FOR PAIN MAXIMUM DAILY DOSE = 4 TABLETS TAKE ONE TABLET BY MOUTH EVERY 6 HOURS NEEDED FOR PAIN MAXIMUM DAILY DOSE = 4 TABLETS SOLD: 07/21/2020 [facility] 5-325 mg 07/21/2020 12:00:00 AM EST tablet 20 TAKE TWO TABLETS BY MOUTH EVERY 6 HOURS NEEDED FOR SEVERE PAIN (PS 8-10) MAXIMUM DAILY DOSE = 4 TABLETS TAKE TWO TABLETS BY MOUTH EVERY 6 HOURS NEEDED FOR SEVERE PAIN (PS 8-10) MAXIMUM DAILY DOSE = 4 TABLETS SOLD: 07/21/2020 [facility] 1 mg 07/16/2020 12:00:00 AM EST tablet [...] A DAY FOR 10 DAYS SOLD: 07/07/2020 [facility] 25 mg 07/02/2020 12:00:00 AM EST tablet 90 TAKE ONE TABLET BY MOUTH EVERY DAY AT BEDTIME TAKE ONE TABLET BY MOUTH EVERY DAY AT BEDTIME SOLD: 07/02/2020 [facility] 75 mg 07/02/2020 12:00:00 AM EST tablet 90 TAKE ONE TABLET BY MOUTH EVERY DAY TAKE ONE TABLET BY MOUTH EVERY DAY SOLD: 07/02/2020 [facility] 50 mg 06/30/2020 12:00:00 AM EST tablet 10 TAKE ONE TABLET BY MOUTH TWICE A DAY FOR PAIN MAXIMUM DAILY DOSE = 2 TABLETS TAKE ONE TABLET BY MOUTH TWICE A DAY FOR PAIN MAXIMUM DAILY DOSE = 2 TABLETS SOLD: 06/30/2020 [facility] 1 mg 06/22/2020 12:00:00 AM EST tablet 60 TAKE 2 TABLETS BY MOUTH AT NIGHT BEFORE BEDTIME TAKE 2 TABLETS BY MOUTH AT NIGHT BEFORE BEDTIME SOLD: 2019 [facility] 50 mg 06/17/2020 12:00:00 AM EST tablet 10 TAKE ONE TABLET BY MOUTH TWICE A DAY FOR PAIN MAXIMUM DAILY DOSE = 2 TABLETS TAKE ONE TABLET BY MOUTH TWICE A DAY FOR PAIN MAXIMUM DAILY DOSE = 2 TABLETS SOLD: 06/17/2020 [facility] Alprazolam 0.5 MG Oral Tablet ALPRAZOLAM 06/14/2020 12:00:00 AM EST ta blet 30 TAKE ONE TABLET BY MOUTH AT BEDTIME NEEDED MAXIMUM DAILY DOSE = 1 TABLETS TAKE ONE TABLET BY MOUTH AT BEDTIME NEEDED MAXIMUM DAILY DOSE = 1 TABLETS SOLD: 06/14/2020 [facility] Alprazolam 0.5 MG Oral Tablet ALPRAZOLAM 06/10/2020 12:00:00 AM EST ta blet 30 TAKE ONE TABLET BY MOUTH AT BEDTIME NEEDED MAXIMUM DAILY DOSE = 1 TABLETS TAKE ONE TABLET BY MOUTH AT BEDTIME NEEDED MAXIMUM DAILY DOSE = 1 TABLETS SOLD: 06/11/2020 [facility] 50 mg 06/08/2020 12:00:00 AM EST tablet 15 TAKE 1-2 TABLETS BY MOUTH EVERY 6 HOURS NEEDED FOR PAIN MAXIMUM DAILY DOSE = 3 TAKE 1-2 TABLETS BY MOUTH EVERY 6 HOURS NEEDED FOR PAIN MAXIMUM DAILY DOSE = 3 SOLD: 06/08/2020 [facility] Losartan Potassium 25 MG Oral Tablet losartan (COZAAR) 25 MG tablet losartan (COZAAR) 25 MG tablet 06/05/2020 12:00:00 AM EST 25 mg Oral active Take 25 mg by mouth daily [facility] 50 mg 06/02/2020 12:00:00 AM EST tablet 15 TAKE ONE TO TWO TABLETS BY MOUTH EVERY 6 HOURS NEEDED FOR PAIN MAXIMUM DAILY DOSE = 3 TABLETS TAKE ONE TO TWO TABLETS BY MOUTH EVERY 6 HOURS NEEDED FOR PAIN MAXIMUM DAILY DOSE = 3 TABLETS SOLD: 06/02/2020 [facility] 50 mg 05/29/2020 12:00:00 AM EST tablet 15 TAKE ONE TO TWO TABLETS BY MOUTH EVERY 6 HOURS NEEDED FOR PAIN MAXIMUM DAILY DOSE = 3 TAKE ONE TO TWO TABLETS BY MOUTH EVERY 6 HOURS NEEDED FOR PAIN MAXIMUM DAILY DOSE = 3 SOLD: 05/29/2020 [facility] Pramipexole dihydrochloride 1 MG Oral Tablet [Mirapex] Mirap ex 05/26/2020 12:00:00 AM EST ORAL active [facility] ([facility]) 25 mg 05/25/2020 12:00:00 AM EST tablet 30 TAKE ONE TABLET BY MOUTH EVERY DAY TAKE ONE TABLET BY MOUTH EVERY DAY SOLD: 07/21/2020 [facility] 25 mg 05/25/2020 12:00:00 AM EST tablet 30 TAKE ONE TABLET BY MOUTH EVERY DAY TAKE ONE TABLET BY MOUTH EVERY DAY SOLD: 06/22/2020 [facility] 25 mg 05/25/2020 12:00:00 AM EST tablet 30 TAKE ONE TABLET BY MOUTH EVERY DAY TAKE ONE TABLET BY MOUTH EVERY DAY SOLD: 05/25/2020 [facility] Famotidine 40 MG Oral Tablet famotidine (PEPCID) 40 MG tablet famotidine (PEPCID) 40 MG tablet 05/23/2020 12:00:00 AM EST 40 mg Oral active Take 40 mg by mouth daily [facility] 50 mg 05/20/2020 12:00:00 AM EST tablet 15 TAKE ONE TO TWO TABLETS BY MOUTH EVERY 6 HOURS NEEDED FOR PAIN MAXIMUM DAILY DOSE = 3 TABLETS TAKE ONE TO TWO TABLETS BY MOUTH EVERY 6 HOURS NEEDED FOR PAIN MAXIMUM DAILY DOSE = 3 TABLETS SOLD: 05/20/2020 [facility] Triamcinolone Acetonide 0.001 MG/MG Topi [facility] Ointment Triamcinolone Acetonide 0.1 % Triamcinolone Acetonide 0.1 % 05/19/2020 12:00:00 AM EST 1.0 {application} active Triamcinolone Aceton zita 0.1 % eCW1 ([facility]) Triamcinolone Acetonide 0.001 MG/MG Topi reg[facility] Ointment Triamcinolone Acetonide 0.1 % Triamcinolone Acetonide 0.1 % 05/19/2020 12:00:00 AM EST 1.0 {application} active Triamcinolone Aceton zita 0.1 % eCW1 ([facility]) Triamcinolone Acetonide 0.001 MG/MG [facility]i [facility] Ointment Triamcinolone Acetonide 0.1 % Triamcinolone Acetonide 0.1 % 05/19/2020 12:00:00 AM EST 1.0 {application} active Triamcinolone Aceton zita 0.1 % eCW1 ([facility]) Triamcinolone Acetonide 0.001 MG/MG [facility] Ointment Triamcinolone Acetonide 0.1 % Triamcinolone Acetonide 0.1 % 05/19/2020 12:00:00 AM EST 1.0 {application} active Triamcinolone Aceton zita 0.1 % eCW1 ([facility]) Triamcinolone Acetonide 0.001 MG/MG Topi reg[facility] Ointment Triamcinolone Acetonide 0.1 % Triamcinolone Acetonide 0.1 % 05/19/2020 12:00:00 AM EST 1.0 {application} active Triamcinolone Aceton zita 0.1 % eCW1 ([facility]) 1 mg 05/19/2020 12:00:00 AM EST tablet 90 TAKE ONE TABLET BY MOUTH EVERY DAY AT BEDTIME MAXIMUM DAILY DOSE = 1 TAKE ONE TABLET BY MOUTH EVERY DAY AT BE DTIME MAXIMUM DAILY DOSE = 1 SOLD: 05/19/2020 [facility] Triamcinolone Acetonide 0.001 MG/MG Topi regina Ointment Triamcinolone Acetonide 0.1 % Triamcinolone Acetonide 0.1 % 05/19/2020 12:00:00 AM EST 1.0 {application} active Triamcinolone Aceton zita 0.1 % eCW1 ([facility]) Triamcinolone Acetonide 0.001 MG/MG [facility] Ointment Triamcinolone Acetonide 0.1 % Triamcinolone Acetonide 0.1 % 05/19/2020 12:00:00 AM EST 1.0 {application} active Triamcinolone Aceton zita 0.1 % eCW1 ([facility]) Triamcinolone Acetonide 0.001 MG/MG [facility] Ointment Triamcinolone Acetonide 0.1 % Triamcinolone Acetonide 0.1 % 05/19/2020 12:00:00 AM EST 1.0 {application} active Triamcinolone Aceton zita 0.1 % eCW1 ([facility]) Triamcinolone Acetonide 0.001 MG/MG [facility] Ointment Triamcinolone Acetonide 0.1 % Triamcinolone Acetonide 0.1 % 05/12/2020 12:00:00 AM EST 1.0 {application} active Triamcinolone Aceton zita 0.1 % eCW1 ([facility]) Triamcinolone Acetonide 0.001 MG/MG [facility] Ointment Triamcinolone Acetonide 0.1 % Triamcinolone Acetonide 0.1 % 05/12/2020 12:00:00 AM EST 1.0 {application} active Triamcinolone Aceton zita 0.1 % eCW1 ([facility]) 0.1 % 05/12/2020 12:00:00 AM EST ointment 80 APPLY 1 APPLICATION TWICE A DAY TO LEGS FOR 14 DAYS (AVOID BIOPSY SITE) APPLY 1 APPLICATION TWICE A DAY TO LEGS FOR 14 DAYS (AVOID BIOPSY SITE) SOLD: 05/12/2020 [facility] Triamcinolone Acetonide 0.001 MG/MG Topi regina Ointment Triamcinolone Acetonide 0.1 % Triamcinolone Acetonide 0.1 % 05/12/2020 12:00:00 AM EST 1.0 {application} active Triamcinolone Aceton zita 0.1 % eCW1 ([facility]) Triamcinolone Acetonide 0.001 MG/MG [facility]i [facility] Ointment Triamcinolone Acetonide 0.1 % Triamcinolone Acetonide 0.1 % 05/12/2020 12:00:00 AM EST 1.0 {application} active Triamcinolone Aceton zita 0.1 % eCW1 ([facility]) Triamcinolone Acetonide 0.001 MG/MG [facility] Ointment Triamcinolone Acetonide 0.1 % Triamcinolone Acetonide 0.1 % 05/12/2020 12:00:00 AM EST 1.0 {application} active Triamcinolone Aceton zita 0.1 % eCW1 ([facility]) Triamcinolone Acetonide 0.001 MG/MG Topi reg[facility] Ointment Triamcinolone Acetonide 0.1 % Triamcinolone Acetonide 0.1 % 05/12/2020 12:00:00 AM EST 1.0 {application} active Triamcinolone Aceton zita 0.1 % eCW1 ([facility]) Triamcinolone Acetonide 0.001 MG/MG Topi reg[facility] Ointment Triamcinolone Acetonide 0.1 % Triamcinolone Acetonide 0.1 % 05/12/2020 12:00:00 AM EST 1.0 {application} active Triamcinolone Aceton zita 0.1 % eCW1 ([facility]) 50 mg 05/12/2020 12:00:00 AM EST tablet [...] active Triamcinolone Aceton zita 0.1 % eCW1 ([facility]) Triamcinolone Acetonide 0.001 MG/MG Topi regina Ointment Triamcinolone Acetonide 0.1 % Triamcinolone Acetonide 0.1 % 05/12/2020 12:00:00 AM EST 1.0 {application} active Triamcinolone Aceton zita 0.1 % eCW1 ([facility]) Triamcinolone Acetonide 0.001 MG/MG Topi regina Ointment Triamcinolone Acetonide 0.1 % Triamcinolone Acetonide 0.1 % 05/12/2020 12:00:00 AM EST 1.0 {application} active Triamcinolone Aceton zita 0.1 % eCW1 ([facility]) 25 mg 05/11/2020 12:00:00 AM EST tablet 90 TAKE ONE TABLET BY MOUTH AT BEDTIME TAKE ONE TABLET BY MOUTH AT BEDTIME SOLD: 05/11/2020 [facility] Alprazolam 0.5 MG Oral Tablet ALPRAZOLAM 05/09/2020 12:00:00 AM EST ta blet 30 TAKE ONE TABLET BY MOUTH EVERY DAY AT BEDTIME NEEDED MAXIMUM DAILY DOSE = 1 TAKE ONE TABLET BY MOUTH EVERY DAY AT BEDTIME NEEDED MAXIMUM DAILY DOSE = 1 SOLD: 05/10/2020 [facility] Hydroxychloroquine Sulfate 200 MG Oral [...] TABLET BY MOUTH ONCE DAILY SOLD: 06/05/2020 [facility] 25 mg 05/08/2020 12:00:00 AM [...] 12:00:00 AM EDT ORAL active MED[facility] ([facility] ) 300-60 mg 04/07/2020 12:00:00 [...] DAILY DOSE = 4 TABLETS SOLD: 02/07/2020 [facility] 300-60 mg 02/03/2020 12:00:00 AM [...] A DAY AFTER 7 DAYS SOLD: 04/10/2020 [facility] Hydroxychloroquine Sulfate 200 MG Oral Tablet [...] 12/02/2019 12:00:00 AM EDT ORAL active [facility] ([facility]) Acetaminophen 325 MG / Hydrocodone Bitartrate 5 MG Ora l Tablet Hydrocodone Bitartrate/Acetaminophen 11/27/2019 12:00:00 AM EDT ORAL active MEDENT ([facility]) 5-325 mg 11/27/2019 12:00:00 AM [...] DAILY AT BEDTIME SOLD: 02/13/2020 [facility] 25 mg 11/18/2019 12:00:00 AM EDT tablet 90 TAKE 1 TABLET BY MOUTH ONCE DAILY AT BEDTIME TAKE 1 TABLET BY MOUTH ONCE DAILY AT BEDTIME SOLD: 11/18/2019 [facility] Alprazolam 0.5 MG Oral Tablet [...] TABLET BY MOUTH EVERY DAY SOLD: 11/06/2019 [facility] 25 mg 11/06/2019 12:00:00 AM EDT tablet 30 TAKE ONE TABLET BY MOUTH EVERY DAY TAKE ONE TABLET BY MOUTH EVERY DAY SOLD: 12/02/2019 [facility] 25 mg 11/06/2019 12:00:00 AM EDT tablet 30 TAKE ONE TABLET BY MOUTH EVERY DAY TAKE ONE TABLET BY MOUTH EVERY DAY SOLD: 03/28/2020 [facility] tramadol hydrochloride 50 MG Oral Tablet Tramadol HCL 11/06/2019 12:00:00 AM EDT ORAL completed MED[facility] ([facility]) 25 mg 11/06/2019 12:00:00 AM EDT tablet 30 TAKE ONE TABLET BY MOUTH EVERY DAY TAKE ONE TABLET BY MOUTH EVERY DAY SOLD: 01/27/2020 [facility] 25 mg 11/06/2019 12:00:00 AM EDT tablet 30 TAKE ONE TABLET BY MOUTH EVERY DAY TAKE ONE TABLET BY MOUTH EVERY DAY SOLD: 04/26/2020 [facility] 25 mg 11/06/2019 12:00:00 AM EDT tablet 30 TAKE ONE TABLET BY MOUTH EVERY DAY TAKE ONE TABLET BY MOUTH EVERY DAY SOLD: 02/26/2020 [facility] tramadol hydrochloride 50 MG Oral Tablet Tramadol HCL 11/06/2019 12:00:00 AM EDT ORAL completed [facility] ([facility]) tramadol hydrochloride 50 MG Oral Tablet TRAMADOL HCL 11/06/2019 12:00:00 AM EDT tablet 14 TAKE ONE TABLET BY MOUTH TWICE A DAY NEEDED FOR BACK PAIN MAXIMUM DAILY DOSE = 2 TAKE ONE TABLET BY MOUTH TWICE A DAY NEEDED FOR BACK PAIN MAXIMUM DAILY DOSE = 2 SOLD: 11/06/2019 [facility] 75 mg 10/31/2019 12:00:00 AM EDT tablet 90 TAKE 1 TABLET BY MOUTH ONCE DAILY TAKE 1 TABLET BY MOUTH ONCE DAILY SOLD: 01/27/2020 [facility] 75 mg 10/31/2019 12:00:00 AM EDT tablet 90 TAKE 1 TABLET BY MOUTH ONCE DAILY TAKE 1 TABLET BY MOUTH ONCE DAILY SOLD: 10/31/2019 [facility] 25 mg 10/24/2019 12:00:00 AM [...] MOUTH ONCE DAILY SOLD: 12/15/2019 [facility] Losartan Potassium 25 MG Oral Tablet Losartan Potassium 12:00:00 AM EDT active MED[facility] ([facility]) Prednisone 10 MG Oral Tablet Prednisone 10/23/2019 12:00:00 AM EDT completed [facility] ([facility]) Losartan Potassium 25 MG Oral Tablet LOSARTAN POTASSIUM 12:00:00 AM EDT tablet 30 TAKE 1 TABLET BY MOUTH ONCE DAILY TAKE 1 TABLET BY MOUTH ONCE DAILY SOLD: 03/10/2020 [facility] 25 mg 10/23/2019 12:00:00 AM EDT tablet 30 TAKE 1 TABLET BY MOUTH ONCE DAILY TAKE 1 TABLET BY MOUTH ONCE DAILY SOLD: 01/12/2020 [facility] 25 mg 10/23/2019 12:00:00 AM EDT tablet 30 TAKE 1 TABLET BY MOUTH ONCE DAILY TAKE 1 TABLET BY MOUTH ONCE DAILY SOLD: 11/18/2019 [facility] 25 mg 10/23/2019 12:00:00 AM EDT tablet 30 TAKE 1 TABLET BY MOUTH ONCE DAILY TAKE 1 TABLET BY MOUTH ONCE DAILY SOLD: 02/10/2020 [facility] 25 mg 10/23/2019 12:00:00 AM EDT tablet 30 TAKE 1 TABLET BY MOUTH ONCE DAILY TAKE 1 TABLET BY MOUTH ONCE DAILY SOLD: 04/10/2020 [facility] Alprazolam 0.5 MG Oral Tablet ALPRAZOLAM 10/15/2019 12:00:00 AM EDT ta blet 30 TAKE 1 TABLET BY MOUTH EVERY DAY AT BEDTIME NEEDED MAXIMUM DAILY DOSE = 1 TAKE 1 TABLET BY MOUTH EVERY DAY AT BEDTIME NEEDED MAXIMUM DAILY DOSE = 1 SOLD: 10/15/2019 [facility] Hydroxychloroquine Sulfate 200 MG Oral Tablet HYDROXYCHLOROQ UINE SULFATE 09/24/2019 12:00:00 AM EDT tablet 60 TAKE ONE TABLET BY MOUTH EVERY DAY, THEN INCREASE TO TWO TIMES A DAY AFTER 7 DAYS TAKE ONE TABLET BY MOUTH EVERY DAY, THEN INCREASE TO TWO TIMES A DAY AFTER 7 DAYS SOLD: 10/20/2019 [facility] atorvastatin 40 MG Oral Tablet ATORVASTATIN CALCIUM 09/24/2019 1 2:00:00 AM EDT tablet 90 TAKE ONE TABLET BY MOUTH EVERY D AY TAKE ONE TABLET BY MOUTH EVERY DAY SOLD: 06/14/2020 [facility] Hydroxychloroquine Sulfate 200 MG Oral Tablet HYDROXYCHLOROQ UINE SULFATE 09/24/2019 12:00:00 AM EDT tablet 60 TAKE ONE TABLET BY MOUTH EVERY DAY, THEN INCREASE TO TWO TIMES A DAY AFTER 7 DAYS TAKE ONE TABLET BY MOUTH EVERY DAY, THEN INCREASE TO TWO TIMES A DAY AFTER 7 DAYS SOLD: 12/12/2019 [facility] 40 mg 09/24/2019 12:00:00 AM EDT tablet 90 TAKE ONE TABLET BY MOUTH EVERY DAY TAKE ONE TABLET BY MOUTH EVERY DAY SOLD: 09/24/2019 [facility] Hydroxychloroquine Sulfate 200 MG Oral Tablet HYDROXYCHLOROQ UINE SULFATE 09/24/2019 12:00:00 AM EDT tablet 60 TAKE ONE TABLET BY MOUTH EVERY DAY, THEN INCREASE TO TWO TIMES A DAY AFTER 7 DAYS TAKE ONE TABLET BY MOUTH EVERY DAY, THEN INCREASE TO TWO TIMES A DAY AFTER 7 DAYS SOLD: 11/15/2019 [facility] 40 mg 09/24/2019 12:00:00 AM EDT tablet 90 TAKE ONE TABLET BY MOUTH EVERY DAY TAKE ONE TABLET BY MOUTH EVERY DAY SOLD: 12/20/2019 [facility] atorvastatin 40 MG Oral Tablet ATORVASTATIN CALCIUM 09/24/2019 1 2:00:00 AM EDT tablet 90 TAKE ONE TABLET BY MOUTH EVERY D AY TAKE ONE TABLET BY MOUTH EVERY DAY SOLD: 03/18/2020 [facility] Hydroxychloroquine Sulfate 200 MG Oral Tablet HYDROXYCHLOROQ UINE SULFATE 09/24/2019 12:00:00 AM EDT tablet 60 TAKE ONE TABLET BY MOUTH EVERY DAY, THEN INCREASE TO TWO TIMES A DAY AFTER 7 DAYS TAKE ONE TABLET BY MOUTH EVERY DAY, THEN INCREASE TO TWO TIMES A DAY AFTER 7 DAYS SOLD: 09/24/2019 [facility] Hydroxychloroquine Sulfate 200 MG Oral Tablet Hydroxychloroq uine Sulfate 09/23/2019 12:00:00 AM EDT active [facility] ([facility]) atorvastatin 40 MG Oral Tablet Atorvastatin Calcium 09/23/2019 1 2:00:00 AM EDT ORAL active [facility] ( [facility]) Alprazolam 0.5 MG Oral Tablet ALPRAZOLAM 09/18/2019 12:00:00 AM EDT ta blet 30 TAKE ONE TABLET BY MOUTH AT BEDTIME NEEDED MAXIMUM DAILY DOSE = 1 TAKE ONE TABLET BY MOUTH AT BEDTIME NEEDED MAXIMUM DAILY DOSE = 1 SOLD: 09/18/2019 [facility] Amlodipine 5 MG Oral Tablet Amlodipine Besylate 09/17/2019 12:00:00 A M EDT ORAL active [facility] ([facility]) 5 mg 09/17/2019 12:00:00 AM EDT tablet 60 TAKE ONE TABLET BY MOUTH TWICE A DAY TAKE ONE TABLET BY MOUTH TWICE A DAY SOLD: 12/08/2019 [facility] 5 mg 09/17/2019 12:00:00 AM EDT tablet 60 TAKE ONE TABLET BY MOUTH TWICE A DAY TAKE ONE TABLET BY MOUTH TWICE A DAY SOLD: 12/06/2019 [facility] 5 mg 09/17/2019 12:00:00 AM EDT tablet 60 TAKE ONE TABLET BY MOUTH TWICE A DAY TAKE ONE TABLET BY MOUTH TWICE A DAY SOLD: 11/10/2019 [facility] 5 mg 09/17/2019 12:00:00 AM EDT tablet 60 TAKE ONE TABLET BY MOUTH TWICE A DAY TAKE ONE TABLET BY MOUTH TWICE A DAY SOLD: 10/14/2019 [facility] 5 mg 09/17/2019 12:00:00 AM EDT tablet 60 TAKE ONE TABLET BY MOUTH TWICE A DAY TAKE ONE TABLET BY MOUTH TWICE A DAY SOLD: 09/17/2019 [facility] Alprazolam 0.5 MG Oral Tablet ALPRAZOLAM 08/20/2019 12:00:00 AM EST ta blet 30 TAKE ONE TABLET BY MOUTH AT BEDTIME NEEDED MAXIMUM DAILY DOSE = 1 TAKE ONE TABLET BY MOUTH AT BEDTIME NEEDED MAXIMUM DAILY DOSE = 1 SOLD: 08/20/2019 [facility] Furosemide 20 MG Oral Tablet furosemide (LASIX) 20 MG tablet furosemide (LASIX) 20 MG tablet 07/24/2019 12:00:00 AM EST 20 mg Oral activ e Take 20 mg by mouth daily [facility] 20 mg 07/24/2019 12:00:00 AM EST tablet [...] MOUTH EVERY DAY SOLD: 12/30/2019 [facility] Alprazolam 0.5 MG Oral Tablet [...] Famotidine 07/23/2019 12:00:00 AM EST active [facility] ([facility]) Furosemide 20 MG Oral Tablet Furosemide 07/23/2019 12:00:00 AM EST ORAL completed [facility] ([facility]) 40 mg 07/23/2019 12:00:00 AM EST tablet 30 TAKE ONE TABLET BY MOUTH EVERY DAY TAKE ONE TABLET BY MOUTH EVERY DAY SOLD: 11/06/2019 [facility] 40 mg 07/23/2019 12:00:00 AM EST tablet 30 TAKE ONE TABLET BY MOUTH EVERY DAY TAKE ONE TABLET BY MOUTH EVERY DAY SOLD: 10/10/2019 [facility] Metoprolol Tartrate 25 MG Oral Tablet me toprolol tartrate (LOPRESSOR) 25 MG tablet metoprolol tartrate (LOPRESSOR) 25 MG tablet 07/10/2019 12:0 0:00 AM EST 25 mg Oral active Take 1 tablet (2 5 mg total) by mouth 2 (two) times a day [facility] Alprazolam 0.5 MG Oral Tablet ALPRAZOLAM 06/27/2019 [...] Oral active Take 25 mg by mouth [facility] 300 mg 06/13/2019 12:00:00 AM EST capsule [...] 12:00:00 AM EST ORAL active [facility] ([facility]) 80 mg 06/11/2019 12:00:00 AM EST tablet 90 TAKE ONE TABLET BY MOUTH EVERY DAY TAKE ONE TABLET BY MOUTH EVERY DAY SOLD: 06/11/2019 [facility] 25 mg 05/01/2019 12:00:00 AM [...] MOUTH EVERY DAY SOLD: 08/18/2019 [facility] 60 mg 04/01/2019 12:00:00 AM [...] TWICE A DAY SOLD: 12/17/2019 [facility] 150 mg 12/27/2018 12:00:00 AM EDT tablet 30 TAKE 1 TABLET BY MOUTH IN THE EVENING BEFORE BED TAKE 1 TABLET BY MOUTH IN THE EVENING BEFORE BED SOLD: 06/28/2019 [facility] 324 mg (37.5 mg iron) [...] by mouth 2 (two) times a day [facility] Insurance Providers Payer name Policy type / Coverage type Policy ID Covered constitution party ID Covered constitution party's relationship to thompson Policy Thompson Plan Information MEDICARE [id number] SP [id number] MEDICARE C [id number] S [id number] [id number] AETNA MEDICARE [id number] SP [id number] [facility] [id number] SP [id number] [place] [id number] SP [id number] MEDICARE [id number] SP [id number] Y64 MEDICAID [id number] MEDICARE [id number] MEDICARE [id number] Jewell [id number] Y64 HUMANA GOLD O [id number] S [id number] MEDICAID M [id number] HUMANA GOLD [id number] SP [id number] EMED[place] [id number] SP [id number] MEDICAID [id number] SP [id number] MEDICARE [id number] Jewell [id number] Y64 MEDICARE [id number] SP [id number] A MEDICAID [id number] SP [id number] 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 [id number] Self [id number] Medicaid Medigap Part B [id number] Self [id number] Medicare Natl Govt Servic Medicare Primary [id number] Self [id number] MEDICAID [id number] SP [id number] MEDICAID [id number] SP [id number] 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 [id number] Self [id number] Medicaid Medigap Part B [id number] Self [id number] Medicare Natl Govt Servic Medicare Primary [id number] Self [id number] 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 [id number] Self [id number] Medicaid Medigap Part B [id number] Self [id number] Medicare [place] Govt Servic Medicare Primary [id number] Self [id number] Medicaid Medigap Part B [id number] Self [id number] 63C 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 [id number] Self [id number] Medicare [place] Govt Servic Medicare Primary [id number] Self [id number] Medicaid Medigap Part B [id number] Self [id number] 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 [id number] Self [id number] Medicare Natl Govt Servic Medicare Primary [id number] Self [id number] Medicaid Medigap Part B [id number] Self [id number] 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 [id number] Self [id number] Medicare [place] Govt Servic Medicare Primary [id number] Self [id number] Medicaid Medigap Part B [id number] Self [id number] 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 [id number] Self [id number] Medicare Natl Govt Servic Medicare Primary [id number] Self [id number] MEDICAID UNAVAILABLE UNAVAILA BLE Medicare [facility] Medicare Primary [id number] Self [id number] Medicaid Medigap Part B [id number] Self [id number] 63C 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 [id number] Self [id number] Medicare Natl Govt Servic Medicare Primary [id number] Self [id number] MEDICAID [id number] Jewell [id number] MEDICARE [id number] Jewell [id number] A Medicaid Medigap Part B [id number] Self [id number] 63C 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 [id number] Self [id number] Medicare Natl Govt Servic Medicare Primary [id number] Self [id number] Medicaid Medigap Part B [id number] Self [id number] 63C 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 [id number] Self [id number] Medicare Natl Govt Servic Medicare Primary [id number] Self [id number] Medicaid Medigap Part B [id number] Self [id number] 63C 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 [id number] Self [id number] Medicare [place] Govt Servic Medicare Primary [id number] Self [id number] MEDICARE PI PI Medicaid Medigap Part B [id number] Self [id number] 63C 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 [id number] Self [id number] Medicare [place] Govt Servic Medicare Primary [id number] Self [id number] Medicaid Medigap Part B [id number] Self [id number] 63C 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 [id number] Self [id number] Medicare [place] Govt Servic Medicare Primary [id number] Self [id number] Medicaid Medigap Part B [id number] Self [id number] 63C 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 [id number] Self [id number] Medicare [place]l Govt Servic Medicare Primary [id number] Self [id number] MEDICARE C [id number] S [id number] A Medicaid Medigap Part B [id number] Self [id number] 63C 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 [id number] Self [id number] Medicare [place] Govt Serv[employer] Medicare Primary [id number] Self [id number] Medicaid Medigap Part B [id number] Self [id number] 63C 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 [id number] Self [id number] Medicare [place] Govt Servic Medicare Primary [id number] Self [id number] MEDICAID [id number] SP [id number] Medicaid Medigap Part B [id number] Self [id number] 63C 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 [id number] Self [id number] Medicare [place] Govt Serv[employer] Medicare Primary [id number] Self [id number] Medicaid Medigap Part B [id number] Self [id number] 63C 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 [id number] Self [id number] Medicare [place] Govt Serv[employer] Medicare Primary [id number] Self [id number] MEDICARE [id number] SP [id number] [place] B Self [place] Gov[place] Servi Medicare Primary Self Medicaid Medigap Part B 1 1 Self 1 1 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 Self Medicare [place] Self [place] Ins Fund [place] Workers 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 Self OTHER WORKERS COMPENSATION [id number] SP [id number] A Problems, Conditions, and Diagnoses Code Display Name Description Problem Type Effective Dates Data Source(s) I25.5 Ischemic cardiomyopathy Ischemic cardiomyopathy 429128 2020 12:00:00 AM EST [facility] M47.816 [id number] Lumbar spondylosis Problem 06/04/2020 12:00: 00 AM EST eCW1 ([facility]) I77.6 [id number] Vasculitis Problem 06/04/2020 12:00:00 AM ES T eCW1 ([facility]) M79.7 [id number] Fibromyalgia Problem 01/21/2020 12:00:00 AM EDT eCW1 ([facility]) [id number] Neck pain Neck pain Problem 11/06/2019 12:00:00 AM ED T YOHANA ([facility]) [id number] 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 Problem 11/06/2019 12:00:00 AM EDT [facility] ([facility]) [id number] Abnormal gait Abnormal gait Problem 10/30/2019 12:00:00 AM EDT [facility] ([facility]) [id number] Nervous system symptoms Nervous system symptoms Proble m 10/30/2019 12:00:00 AM EDT [facility] ([facility]) [id number] CVA - cerebrovascular accident due to ce rebral artery occlusion CVA - cerebrovascular accident due to cerebral artery occlusion Problem 06/18/2019 12:00:00 AM EST [facility] ([facility]) [id number] Essential hypertension Essential hypertension Problem 06/14/2019 12:00:00 AM EST [facility] ([facility]) I10 Essential (primary) hypertension Essential (primary) h ypertension Diagnosis 06/12/2020 01:26:55 PM [facility] E78.5 Hyperlipidemia, unspecified Hyperlipidemia, unspecifie d Diagnosis 06/12/2020 01:26:55 PM EST [facility] N18.9 Chronic kidney disease, unspecified Chronic kidn ey disease, unspecified Diagnosis 06/12/2020 01:26:55 PM EST [facility] Z72.0 Tobacco use Tobacco use Diagnosis 06/12/2020 01:26:55 PM [facility] I25.83 Coronary atherosclerosis due to lipid ri ch plaque Coronary atherosclerosis due to lipid ri Diagnosis 06/12/2020 01:26:55 PM [facility] I25.10 Atherosclerotic heart diseas 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 M79.606 Pain in leg, unspecified Pain in leg, unspecified Diag nosis 07/10/2019 12:22:38 PM EST [facility] Surgeries/Procedures Procedure Description Date Indications Data Source(s) X-Ray Spine Thoracolumbar Ap & Lateral 2 Views 021 12:00:00 AM EST [facility] ([facility]) RADEX SPINE LUMBOSACRAL 2/3 VIEWS 06/18/2020 12:00:00 AM EST [facility] ([facility] ) Needle electromyography, each extremity, with related paraspinal areas, when performed, done with nerve conduction, amplitude and latency/velocity study; complete, five or more muscles studied, innervated by three or more nerves or four or more spinal levels (list separately in addition to the code for primary procedure). 06/15/2020 12:00:00 AM EST MEDEN T ([facility]) Needle electromyography, each extremity, with related paraspinal areas, when performed, done with nerve conduction, amplitude and latency/velocity study; complete, five or more muscles studied, innervated by three or more nerves or four or more spinal levels (list separately in addition to the code for primary procedure). 06/15/2020 12:00:00 AM EST MEDEN T ([facility]) Nerve Conduction 11-12 Studies 06/15/2020 12:00:00 AM EST [facility] ([facility] ECG ROUTINE ECG W/LEAST 12 LDS W/I&R POCT AMB EKG Routine 06/12/2020 5:31 PM EST Coronary artery disease due to lipid rich plaque Essential hypertension 06/12/2020 10:31:00 PM EST Essential hypertensionCoronary artery disease due to lipid rich plaque [facility] Essential hypertension Coronary artery disease due to lipid tristian h plaque HEPATIC FUNCTION PANEL HEPATIC FUNCTION PANEL Routine 05/26/2020 05/26/2020 12:00:00 AM EST [facility] BASIC METABOLIC PANEL CALCIUM TOTAL BASIC METABOLIC PANEL Routine 05/26/2020 05/26/2020 12:00:00 AM EST [facility] BLOOD COUNT COMPLETE AUTO&AUTO DIFRNTL WBC COUNT CBC AND DIFFER ENTIAL Routine 04/21/2020 04/21/2020 12:00:00 AM EDT [facility] Diabetic Retinal Eye Exam 02/25/2020 12:00:00 AM EDT [facility] ([facility]) RADEX SPINE LUMBOSACRAL 2/3 VIEWS 01/28/2020 12:00:00 AM EDT [facility] ([facility] RADEX SPINE LUMBOSACRAL 2/3 VIEWS 12/16/2019 12:00:00 AM EDT [facility] ([facility] ) CLTX VRT BDY FX W/O MANJ REQ&W/CSTING/BRACING 12/02/19 12:00:00 AM EDT [facility] ([facility] ) MRI BRAIN BRAIN STEM W/O CONTRAST MATERIAL 11/02/2019 12:00:00 AM EDT [facility] ([facility] MRI BRAIN BRAIN STEM W/O CONTRAST MATERIAL 11/02/2019 12:00:00 AM EDT [facility] ([facility] MRI SPINAL CANAL CERVICAL W/O CONTRAST MATRL 0 12:00:00 AM EDT [facility] ([facility] MRI SPINAL CANAL CERVICAL W/O CONTRAST MATRL 0 12:00:00 AM EDT [facility] ([facility] RADEX HAND MINIMUM 3 VIEWS 08/23/2019 12:00:00 AM EST [facility] ([facility] ) RADEX HAND MINIMUM 3 VIEWS 07/25/2019 12:00:00 AM EST [facility] ([facility] ) RADEX HAND MINIMUM 3 VIEWS 07/11/2019 12:00:00 AM EST [facility] ([facility] ) APPLICATION CAST ELBOW FINGER SHORT ARM 07/04/2019 12: 00:00 AM EST [facility] ([facility]) CLTX METACARPAL FX W/O MANIPULATION EACH BONE 06/13/20 12:00:00 AM EST [facility] ([facility] ) Results ID Date Data Source [id number] 07/24/2020 02:16:00 PM EST [facility] ([facility]) Name Value Range Interpretation Code Description Data Amber rce(s) Supporting Document(s) Laboratory test finding (navigational concept) 0.00 ng/mL 0.00-0.08 [facility] ([facility]) ID Date Data Source [id number] 07/24/2020 02:13:00 PM EST [facility] ([facility]) Name Value Range Interpretation Code Description Data Amber rce(s) Supporting Document(s) Laboratory test finding (navigational concept) 31.0 % 38.0-51.0 [facility] ([facility]) Laboratory test finding (navigational concept) 138 meq/L 136-145 [facility] ([facility]) Laboratory test finding (navigational concept) 97 mg/dL 70-105 [facility] ([facility]) Laboratory test finding (navigational concept) 4.4 mg/dL 4.5-5.3 [facility] ([facility]) Laboratory test finding (navigational concept) 4.0 meq/L 3.5-5.1 [facility] ([facility]) Laboratory test finding (navigational concept) 26.0 MM/L 23.0-27.0 [facility] ([facility]) Laboratory test finding (navigational concept) 11 mg/dL 8-26 [facility] ([facility]) Laboratory test finding (navigational concept) 105 meq/L 98-109 [facility] ([facility]) Laboratory test finding (navigational concept) 1.3 mg/dL 0.6-1.3 [facility] ([facility]) ID Date Data Source [id number] 07/24/2020 02:12:00 PM EST [facility] ([facility]) Name Value Range Interpretation Code Description Data Amber rce(s) Supporting Document(s) Lactate [Mass/volume] in Serum or Plasma 1.3 mmol/L 0.4-2.0 [facility] ([facility]) <content>note:<nlbl:demographic_changed> </content>
<content>Y/N query for Sepsis Lactate Rule: Y</content>
<content></content> ID Date Data Source [id number] 07/24/2020 02:12:00 PM EST [facility] ([facility]) Name Value Range Interpretation Code Description Data Amber rce(s) Supporting Document(s) White Blood Count 11.8 10 4.0-10.0 [facility] ([facility]) Hemoglobin 9.4 g/dL 12.0-15.5 [facility] Red Blood Count 3.46 10 4.00-5.40 [facility] ([facility]) Hematocrit 30.5 % 36.0-47.0 [facility]) Mean Corpuscular Hemoglobin 27.2 pg 27.0-33.0 ME DENT ([facility]) Mean Corpuscular Volume 88.2 fl 80.0-96.0 [facility] ([facility]) Mean Corpuscular HGB Conc 30.8 g/dL 32.0-36.5 MEDE NT ([facility]) Platelet Count, Automated 445 10 150-450 [facility] NT ([facility]) Red Cell Distribution Width 15.6 % 11.5-14.5 [facility] ([facility]) Neutrophils % 71.4 % 36.0-66.0 [facility] Eos % 4.4 % 0.0-3.0 [facility]) [place] % 7.9 % 0.0-5.0 [facility]) Lymph % 15.3 % 24.0-44.0 [facility]) Immature Granulocyte % 0.5 % 0-3.0 [facility] ([facility]) Nucleated Red Blood Cell % 0.0 % 0-0 [facility] ([facility]) Baso % 0.5 % 0.0-1.0 [facility]) Lymph # 1.8 10 1.5-5.0 [facility]) Neutrophils # 8.4 10 1.5-8.5 [facility] ([facility]) [place] # 0.9 10 0.0-0.8 [facility]) Eos # 0.5 10 0.0-0.5 [facility]) Baso # 0.1 10 0.0-0.2 [facility] ID Date Data Source [id number] 07/24/2020 02:11:00 PM EST [facility] ([facility]) Name Value Range Interpretation Code Description Data Amber rce(s) Supporting Document(s) Lipoprotein lipase [Enzymatic activity/volume] in Serum or Plasm a 48 U/L 73-393 [facility] ([facility]) <content>note:<nlbl:demographic_changed> </content>
<content></content> ID Date Data Source [id number] 07/24/2020 02:11:00 PM EST [facility] ([facility]) Name Value Range Interpretation Code Description Data Amber rce(s) Supporting Document(s) Ast/Sgot 9 U/L 7-37 [facility] ([facility]) Alt/SGPT 8 U/L 12-78 [facility] ([facility]) Alkaline Phosphatase 93 U/L 45-117 [facility] ([facility]) Bilirubin,Total 0.3 mg/dL 0.2-1.0 [facility] ([facility]) Total Protein 6.8 GM/DL 6.4-8.2 [facility] ([facility]) Albumin 2.8 GM/DL 3.2-5.2 [facility] ([facility]) Bilirubin,Direct 0.1 mg/dL 0.0-0.2 [facility] ([facility]) Albumin/Globulin Ratio 0.7 1.2-2.2 [facility] ([facility]) ID Date Data Source [id number] 07/24/2020 02:11:00 PM EST [facility] ([facility]) Name Value Range Interpretation Code Description Data Amber rce(s) Supporting Document(s) aPTT in Blood by Coagulation assay 31.0 s 24.2-38.5 [facility] ([facility]) ID Date Data Source [id number] 07/24/2020 02:11:00 PM EST [facility] ([facility]) Name Value Range Interpretation Code Description Data Amber rce(s) Supporting Document(s) Prothrombin Time 13.1 s 12.5-14.3 [facility] ([facility]) Inr 0.97 [facility] THERAPUTIC HUMAN INR VALUES INDICATIONS NORMAL RANGES PROPHYLAXIS/TREATMENT OF: VENOUS THROMBOSIS 2.0-3.0 PULMONARY EMBOLISM 2.0-3.0 PREVENTION OF SYSTEMIC EMBOLISM FROM: TISSUE HEART VALVES 2.0-3.0 ACUTE MYOCARDIAL INFARCTION 2.0-3.0 VALVULAR HEART DISEASE 2.0-3.0 ATRIAL FIBRILLATION 2.0-3.0 MECHANICAL VALVES(HIGH RISK) 2.5-3.5 RECURRENT MYOCARDIAL INFARCTION 2.5-3.5 ID Date Data Source [id number] 07/24/2020 02:00:00 PM EST [facility] ([facility]) Name Value Range Interpretation Code Description Data Amber rce(s) Supporting Document(s) Bedside Glucose 97 mg/dL 83-110 [facility] ([facility]) ID Date Data Source [id number] 07/20/2020 03:24:00 PM EST [facility] ([facility]) Name Value Range Interpretation Code Description Data Amber rce(s) Supporting Document(s) Influenza A Amplification Laboratory test result [facility] ([facility]) Negative results do not preclude influen za or RSV virus infection and should not be used as the sole basis for treatment or other patient management decisions. Influenza B Amplification Laboratory test result [facility] ([facility]) Negative results do not preclude influen za or RSV virus infection and should not be used as the sole basis for treatment or other patient management decisions. Laboratory test finding (navigational concept) Laboratory test result [facility] ([facility]) A false negative result may occur if a s pecimen is improperly collected, transported or handled. False [...] pathogens. DISCLAIMER: Testing was performed using the [employer] SARS-CoV-2 test. This test was developed and its performance characteristics determined by [employer]. This test has not been FDA cleared [...] the authorization is terminated or revoked sooner. RSV Amplification Laboratory test result [facility] Negative results do not preclude influen za or RSV virus infection and should not be used as the sole basis for treatment or other patient management decisions. ID Date Data Source [id number] 07/20/2020 03:24:00 PM EST [facility] Name Value Range Interpretation Code Description Data Amber rce(s) Supporting Document(s) SARS coronavirus 2 RNA [Presence] in Res piratory specimen by JOSE with probe detection NEGATIVE [facility] This lab was ordered by [facility] a nd reported by [facility]. ID Date Data Source [id number] 07/10/2020 03:17:00 PM EST [facility] ([facility]) Name Value Range Interpretation Code Description Data Amber rce(s) Supporting Document(s) Protein [Mass/volume] in Urine 198.0 mg/dL 0.0-12.0 [facility] ([facility]) <content>note:<nlbl:demographic_changed> </content>
<content></content> Creatinine [Mass/volume] in Urine 341.0 mg/dL [facility] ([facility]) <content>note:<nlbl:demographic_changed> </content>
<content></content> ID Date Data Source [id number] 07/10/2020 03:14:00 PM EST [facility] ([facility]) Name Value Range Interpretation Code Description Data Amber rce(s) Supporting Document(s) Complement C3 [Mass/volume] in Serum or Plasma 139 mg/dL 90-180 [facility] ([facility]) <content>note:<nlbl:demographic_changed> </content>
<content></content> C reactive protein [Mass/volume] in Serum or Plasma by High sensitivity method 2.83 mg/dL 0.00-0.30 [facility] ([facility] ) <content>note:<nlbl:demographic_changed> </content>
<content></content> Complement C4 [Mass/volume] in Serum or Plasma 29 mg/dL 10-40 [facility] ([facility]) <content>note:<nlbl:demographic_changed> </content>
<content></content> ID Date Data Source [id number] 07/10/2020 03:14:00 PM EST [facility] ([facility]) Name Value Range Interpretation Code Description Data Amber rce(s) Supporting Document(s) Blood Urea Nitrogen 15 mg/dL 7-18 [facility] ([facility]) Creatinine For GFR 1.55 mg/dL 0.55-1.30 [facility] ([facility]) Glucose, Fasting 110 mg/dL 70-100 [facility] ([facility]) Glomerular Filtration Rate 34.8 [facility] ([facility]) <content>Units are mL/min/1.73 m2</content>
<content></content>
<content>Chronic Kidney Disease Staging per NKF:</content>
<content></content>
<content>Stage I & II GFR >=60 Normal to Mildly Decreased</content>
<content>Stage III GFR 30- 59 Moderately Decreased</content>
<content>Stage IV GFR 15-29 Severely Decreased</content>
<content>Stage V GFR <15 Very Little GFR Left</content>
<content>ESRD GFR <15 on CLERICAL AIDE TEACHER</content>
<content></content> Sodium Level 138 meq/L 136-145 [facility] ([facility]) Potassium Serum 4.9 meq/L 3.5-5.1 [facility] ([facility]) Chloride Level 110 meq/L 98-107 [facility] ([facility]) Anion Gap 4 meq/L 8-16 [facility] Carbon Dioxide Level 24 meq/L 21-32 [facility] ([facility]) Alt/SGPT 10 U/L 12-78 [facility] Calcium Level 8.5 mg/dL 8.8-10.2 [facility] ([facility]) Ast/Sgot 5 U/L 7-37 [facility] ([facility]) Bilirubin,Total 0.2 mg/dL 0.2-1.0 [facility] ([facility]) Total Protein 6.7 GM/DL 6.4-8.2 [facility] ([facility]) Alkaline Phosphatase 92 U/L 45-117 [facility] ([facility]) Albumin 2.7 GM/DL 3.2-5.2 [facility] ([facility]) Albumin/Globulin Ratio 0.7 1.2-2.2 [facility] ([facility]) ID Date Data Source [id number] 07/10/2020 03:14:00 PM EST [facility] ([facility]) Name Value Range Interpretation Code Description Data Amber rce(s) Supporting Document(s) Erythrocyte sedimentation rate by Westergren method 79 mm/hr 0-30 [facility] ([facility]) ID Date Data Source [id number] 07/10/2020 03:14:00 PM EST [facility] ([facility]) Name Value Range Interpretation Code Description Data Amber rce(s) Supporting Document(s) White Blood Count 11.3 10 4.0-10.0 [facility] ([facility]) Hemoglobin 9.7 g/dL 12.0-15.5 [facility] Red Blood Count 3.54 10 4.00-5.40 [facility] ([facility]) Hematocrit 32.0 % 36.0-47.0 [facility]) Mean Corpuscular Volume 90.4 fl 80.0-96.0 [facility] Mean Corpuscular Hemoglobin 27.4 pg 27.0-33.0 NM DENT ([facility]) Red Cell Distribution Width 16.1 % 11.5-14.5 NM [facility] ([facility]) Mean Corpuscular HGB Conc 30.3 g/dL 32.0-36.5 MEDE NT ([facility]) Platelet Count, Automated 450 10 150-450 MEDE NT ([facility]) Lymph % 18.6 % 24.0-44.0 [facility]) Neutrophils % 61.2 % 36.0-66.0 [facility] ([facility] [place] % 9.1 % 0.0-5.0 [facility]) Immature Granulocyte % 0.4 % 0-3.0 [facility] ([facility]) Eos % 10.2 % 0.0-3.0 [facility]) Baso % 0.5 % 0.0-1.0 [facility]) Lymph # 2.1 10 1.5-5.0 [facility]) Neutrophils # 6.9 10 1.5-8.5 [facility] Nucleated Red Blood Cell % 0.0 % 0-0 MED E[facility] ([facility]) [place] # 1.0 10 0.0-0.8 [facility]) Baso # 0.1 10 0.0-0.2 [facility]) Eos # 1.2 10 0.0-0.5 [facility]) ID Date Data Source RHEUMATOID FACTOR QUANT 06/04/2020 12:00:00 AM EST eCW1 ([facility]) Name Value Range Interpretation Code Description Data Amber rce(s) Supporting Document(s) 67.1 <15.0 eCW1 ([facility]) ID Date Data Source IgG SUBCLASS 4 06/04/2020 12:00:00 AM EST eCW1 ([facility]) Name Value Range Interpretation Code Description Data Amber rce(s) Supporting Document(s) 237 2-96 eCW1 ([facility]) ID Date Data Source CREATININE,RANDOM URINE 06/04/2020 12:00:00 AM EST eCW1 ([facility]) Name Value Range Interpretation Code Description Data Amber rce(s) Supporting Document(s) 267.0 eCW1 ([facility]) ID Date Data Source LAKESHA TITER & PATTERN 06/04/2020 12:00:00 AM EST eCW1 ([facility]) Name Value Range Interpretation Code Description Data Amber rce(s) Supporting Document(s) Negative . eCW1 ([facility]) ID Date Data Source ANTI-SJOGRENS A&B ANTIBODIES 06/04/2020 12:00:00 AM EST eCW1 ([facility]) Name Value Range Interpretation Code Description Data Amber rce(s) Supporting Document(s) <0.2 0.0-0.9 eCW1 ([facility]) <0.2 0.0-0.9 eCW1 ([facility]) ID Date Data Source TOTAL PROTEIN,RANDOM URINE 06/04/2020 12:00:00 AM EST eCW1 ( [facility]) Name Value Range Interpretation Code Description Data Amber rce(s) Supporting Document(s) 147.1 0.0-12.0 eCW1 ([facility]) ID Date Data Source HEPATITIS C ANTIBODY INDEX 06/04/2020 12:00:00 AM EST eCW1 ( [facility]) Name Value Range Interpretation Code Description Data Amber rce(s) Supporting Document(s) 0.0 <0.8 eCW1 ([facility]) ID Date Data Source Lupus Anticoagulant with RFX Send Out ONLY 06/04/2020 12:00: 00 AM EST eCW1 ([facility]) Name Value Range Interpretation Code Description Data Amber rce(s) Supporting Document(s) 42.9 0.0-47.0 eCW1 ([facility]) 39.1 0.0-51.9 eCW1 ([facility]) Comment: . eCW1 ([facility]) ID Date Data Source CRYOGLOBULINS 06/04/2020 12:00:00 AM EST eCW1 ([facility]) Name Value Range Interpretation Code Description Data Amber rce(s) Supporting Document(s) NEGATIVE NEGATIVE eCW1 ([facility]) ID Date Data Source ANTI-CARDIOLIPIN ANTIBODIES 06/04/2020 12:00:00 AM EST eCW1 ([facility]) Name Value Range Interpretation Code Description Data Amber rce(s) Supporting Document(s) <9 0-12 eCW1 ([facility]) <9 0-11 eCW1 ([facility]) <9 0-14 eCW1 ([facility]) ID Date Data Source HEPATITIS B CORE ANTIBODY IGG 06/04/2020 12:00:00 AM EST eCW 1 ([facility]) Name Value Range Interpretation Code Description Data Amber rce(s) Supporting Document(s) Negative Negative eCW1 ([facility]) ID Date Data Source ERYTHROCYTE SEDIMENTATION RATE 06/04/2020 12:00:00 AM EST eC W1 ([facility]) Name Value Range Interpretation Code Description Data Amber rce(s) Supporting Document(s) 54 0-30 eCW1 ([facility]) ID Date Data Source HEPATITIS B SURFACE ANTIGEN 06/04/2020 12:00:00 AM EST eCW1 ([facility]) Name Value Range Interpretation Code Description Data Amber rce(s) Supporting Document(s) NEGATIVE NEGATIVE eCW1 ([facility]) ID Date Data Source CPK CREATINE PHOSPHOKINASE 06/04/2020 12:00:00 AM EST eCW1 ( [facility]) Name Value Range Interpretation Code Description Data Amber rce(s) Supporting Document(s) 42 26-192 eCW1 ([facility]) ID Date Data Source COMPLEMENT C4 06/04/2020 12:00:00 AM EST eCW1 ([facility]) Name Value Range Interpretation Code Description Data Amber rce(s) Supporting Document(s) 32 10-40 eCW1 ([facility]) ID Date Data Source COMPLEMENT C3 06/04/2020 12:00:00 AM EST eCW1 ([facility]) Name Value Range Interpretation Code Description Data Amber rce(s) Supporting Document(s) 156 90-180 eCW1 ([facility]) ID Date Data Source BETA-2 GLYCOPROTEIN 1 LEANN ROBERT 06/04/2020 12:00:00 AM EST eCW 1 ([facility]) Name Value Range Interpretation Code Description Data Amber rce(s) Supporting Document(s) <9 0-25 eCW1 ([facility]) <9 0-32 eCW1 ([facility]) <9 0-20 eCW1 ([facility]) ID Date Data Source [id number] 05/26/2020 01:48:00 PM EST MED[facility] ([facility]) Name Value Range Interpretation Code Description Data Amber rce(s) Supporting Document(s) Erythrocytes [#/volume] in Blood by Automated count 3.79 x10*6/UL 4.2 0-6.30 [facility] ([facility]) Leukocytes [#/volume] in Blood by Automated count 11.9 x10*3/UL 4.1-1 0.9 [facility] ([facility]) Hemoglobin [Mass/volume] in Blood 10.7 g/dL 12.0-18.0 [facility] ([facility]) Hematocrit [Volume Fraction] of Blood by Automated count 32.1 % 3 7.0-51.0 [facility] ([facility]) MCV 84.7 fL 80.0-97.0 [facility] MCH 28.4 pg 26.0-32.0 [facility] Platelets [#/volume] in Blood by Automated count 560 x10*3/UL 140-440 [facility] ([facility]) Erythrocyte distribution width [Ratio] by Automated count 16.2 % 11.6-13.7 [facility] ([facility]) MCHC 33.5 g/dL 31.0-38.0 [facility]) Mid % 5.5 % 1.7-9.3 [facility]) Lymph % 17.9 % 10.0-58.5 [facility] MPV 7.6 FL 7.8-11.0 [facility] ([facility]) Mid # 0.7 x10*3/UL 0.1-0.6 [facility] ([facility]) Neut % 76.6 % 37.0-92.0 [facility]) Lymph # 2.1 x10*3/UL 0.6-4.1 [facility] ([facility]) Neut # 9.1 x10*3/UL 2.0-7.8 [facility] ([facility]) ID Date Data Source [id number] 05/26/2020 01:48:00 PM EST [facility] ([facility]) Name Value Range Interpretation Code Description Data Amber rce(s) Supporting Document(s) Urea nitrogen [Mass/volume] in Serum or Plasma 12 mg/dL 7-18 [facility] ([facility]) Glucose [Mass/volume] in Serum or Plasma 117 mg/dL 74-99 [facility] ([facility]) 100-125 mg/dL PRE-DIABETES/FASTING >126 mg/dL DIABETES/FASTING Sodium [Moles/volume] in Serum or Plasma 142 meq/L 136-145 [facility] ([facility]) Creatinine 1.6 mg/dL 0.6-1.3 [facility] ([facility]) Potassium [Moles/volume] in Serum or Plasma 3.5 meq/L 3.5-5.1 [facility] ([facility]) Chloride [Moles/volume] in Serum or Plasma 106 meq/L 98-107 [facility] ([facility]) Carbon dioxide, total [Moles/volume] in Serum or Plasma 25 meq/L 21 -32 [facility] ([facility]) Calcium [Mass/volume] in Serum or Plasma 8.6 mg/dL 8.5-10.1 [facility] ([facility]) Total Bilirubin 0.2 mg/dL 0.2-1.0 [facility] ([facility]) Aspartate aminotransferase [Enzymatic activity/volume] in Serum or Plasma 12 U/L 15-37 [facility] ([facility] ) Alkaline phosphatase isoenzyme [Units/volume] in Serum or Pl asma 92 mg/dL 46-116 [facility] ([facility]) Alanine aminotransferase [Enzymatic activity/volume] in Seru m or Plasma 13 U/L 12- [facility] ([facility]) Albumin [Mass/volume] in Serum or Plasma 3.2 g/dL 3.4-5.0 [facility] ([facility]) Glomerular filtration rate/1.73 sq M pre dicted among non-blacks [Volume Rate/Area] in Serum or Plasma by Creatinine-based formula (MDRD) 32 mL/min [facility] ([facility]) Proteinase 3 Ab [Units/volume] in Serum 7.2 g/dL 6.4-8.2 [facility] ([facility]) A/G Ratio 0.80 CALC 1.00-1.90 [facility]) Glomerular filtration rate/1.73 sq M pre dicted among blacks [Volume Rate/Area] in Serum or Plasma by Creatinine-based formula (MDRD) 38 mL/min [facility] ([facility]) <content>CHRONIC KIDNEY DISEASE STAGING PER [facility]</content>
<content></content>
<content>STAGE I & II GFR >= 60 NORMAL TO MILDLY DECREASED</content>
<content>STAGE III GFR 30-59 MODERATELY DECREASED</content>
<content>STAGE IV GFR 15-29 SEVERELY DECREASED</content>
<content>STAGE V GFR <15 VERY LITTLE GFR LEFT</content>
<content>ESRD GFR <15 ON CLERICAL AIDE TEACHER</content>
<content></content> ID Date Data Source [id number] 05/14/2020 12:00:00 AM EST [facility] Patient Name: YULISSA [id number] [facility] Date of : 1945[place] [address] Date of Exam: 05/14/2020#: Fax: [phone] EXAM: [...] cm at the L3 level on the [id number] series. The diameter appears to be about [...] by: Rusty Yates MD 05/14/2020 11:48 AM [facility] ( & Angela)AbimbolaadV/Zoran you for referring MAHESH AQUINO to our office. Electronically Signed - RAFI 05/14/20 12:29 Name Value Range Interpretation Code Description Data Amber rce(s) Supporting Document(s) ID Date Data Source [id number] 04/29/2020 02:50:00 PM EDT YOHANA ([facility]) Name Value Range Interpretation Code Description Data Amber rce(s) Supporting Document(s) Carcinoembryonic Ag [Mass/volume] in Serum or Plasma 4.0 ng/mL YOHANA ([facility]) THE CEA ASSAY IS PERFORMED ON THE Modality BY CHEMILUMINESCENCE AND SHOULD NOT BE COMPARED INTERCHANGEABLY WITH OTHER METHODS. IT SHOULD NOT BE USED ALONE A SCREENING TEST OR DIAGNOSIS FOR THE PRESENCE OR ABSENCE OF MALIGNANT DISEASE. PREDICTIONS OF DISEASE RECURRENCE SHOULD NOT BE BASED SOLELY ON VALUES OBTAINED FROM SERIAL PATIENT SERUM VALUES. ID Date Data Source [id number] 04/29/2020 02:50:00 PM EDT [facility] ([facility]) Name Value Range Interpretation Code Description Data Amber rce(s) Supporting Document(s) Glucose, Fasting 86 mg/dL 70-100 [facility] ([facility]) Glomerular Filtration Rate 31.8 MED ENT ([facility]) <content>Units are mL/min/1.73 m2</content>
<content></content>
<content>Chronic Kidney Disease Staging per NKF:</content>
<content></content>
<content>Stage I & II GFR >=60 Normal to Mildly Decreased</content>
<content>Stage III GFR 30- 59 Moderately Decreased</content>
<content>Stage IV GFR 15-29 Severely Decreased</content>
<content>Stage V GFR <15 Very Little GFR Left</content>
<content>ESRD GFR <15 on CLERICAL AIDE TEACHER</content>
<content></content> Blood Urea Nitrogen 14 mg/dL 7-18 [facility] ([facility]) Creatinine For GFR 1.68 mg/dL 0.55-1.30 [facility] ([facility]) Chloride Level 110 meq/L 98-107 [facility] ([facility]) Sodium Level 140 meq/L 136-145 [facility] ([facility]) Potassium Serum 4.1 meq/L 3.5-5.1 [facility] ([facility]) Anion Gap 5 meq/L 8-16 [facility] ([facility]) Carbon Dioxide Level 25 meq/L 21-32 [facility] ([facility]) Alt/SGPT 9 U/L 12-78 [facility]) Calcium Level 8.3 mg/dL 8.8-10.2 [facility] ([facility]) Ast/Sgot 4 U/L 7-37 [facility] ([facility]) Alkaline Phosphatase 85 U/L 45-117 [facility] ([facility]) Bilirubin,Total 0.2 mg/dL 0.2-1.0 [facility] ([facility]) Total Protein 6.8 GM/DL 6.4-8.2 [facility] ([facility]) Albumin/Globulin Ratio 0.8 1.2-2.2 [facility] ([facility]) Albumin 3.0 GM/DL 3.2-5.2 [facility] ([facility]) ID Date Data Source [id number] 04/29/2020 02:50:00 PM EDT [facility] ([facility]) Name Value Range Interpretation Code Description Data Amber rce(s) Supporting Document(s) Red Blood Count 3.57 10 4.00-5.40 [facility] ([facility]) White Blood Count 12.1 10 4.0-10.0 [facility] ([facility]) Hemoglobin 9.5 g/dL 12.0-15.5 [facility] Mean Corpuscular Volume 88.8 fl 80.0-96.0 [facility] ([facility]) Mean Corpuscular Hemoglobin 26.6 pg 27.0-33.0 NM DENT ([facility]) Hematocrit 31.7 % 36.0-47.0 [facility]) Mean Corpuscular HGB Conc 30.0 g/dL 32.0-36.5 MEDE NT ([facility]) Red Cell Distribution Width 16.7 % 11.5-14.5 NM DENT ([facility]) Platelet Count, Automated 439 10 150-450 MEDE NT ([facility]) [place] % 7.9 % 0.0-5.0 [facility] Neutrophils % 62.7 % 36.0-66.0 [facility] ([facility]) Lymph % 22.4 % 24.0-44.0 [facility] Eos % 6.0 % 0.0-3.0 [facility] ([facility]) Baso % 0.7 % 0.0-1.0 [facility]) Immature Granulocyte % 0.3 % 0-3.0 [facility] ([facility]) Neutrophils # 7.6 10 1.5-8.5 [facility] ([facility]) Nucleated Red Blood Cell % 0.0 % 0-0 MED [facility] ([facility]) Eos # 0.7 10 0.0-0.5 [facility] [place] # 1.0 10 0.0-0.8 [facility] ([facility]) Lymph # 2.7 10 1.5-5.0 [facility] ([facility]) Baso # 0.1 10 0.0-0.2 [facility] ([facility]) ID Date Data Source [id number] 03/13/2020 11:32:00 AM EDT [facility] ([facility]) Name Value Range Interpretation Code Description Data Amber rce(s) Supporting Document(s) Erythrocyte sedimentation rate by Westergren method 41 mm/hr 0-15 [facility]) ID Date Data Source [id number] 03/13/2020 11:31:00 AM EDT [facility] ([facility]) Name Value Range Interpretation Code Description Data Amber rce(s) Supporting Document(s) Phospholipid phosphorus [Mass/volume] in Serum 151 mg/dL 150-250 [facility] ([facility]) Results for this test are for research p urposes only by the assay's railway track plant operator. The performance characteristics of this product have not been established. Results should not be used as a diagnostic procedure without confirmation of the diagnosis by another medically established diagnostic product or procedure. Performed at: [address] [id number] [address] Mortgage Consultant: Trevin Hardin MD, Phone: [phone] ID Date Data Source [id number] 03/13/2020 11:31:00 AM EDT [facility] ([facility]) Name Value Range Interpretation Code Description Data Amber rce(s) Supporting Document(s) Jlvlo-4-Biiaoxxa % 5.2 % 2.9-4.9 [facility] ([facility]) Albumin % 53.1 % 55.8-66.1 [facility]) Lvxyw-5-Bidpekctv % 14.0 % 7.1-11.8 [facility] Dkkv-9-Ciizvfbcf % 7.2 % 4.7-7.2 [facility] ([facility]) Ieto-0-Jbxzzqvfp % 6.6 % 3.2-6.5 [facility] ([facility]) Gamma Globulin % 13.9 % 11.1-18.8 [facility] ([facility]) Zudnj-9-Xmpkbozsz 0.97 GM/DL 0.42-0.99 [facility] ([facility]) Ruvaw-6-Snqyxlitm 0.36 GM/DL 0.17-0.41 [facility] ([facility]) Albumin 3.66 GM/DL 3.29-5.55 [facility] ([facility]) Wenx-8-Eogougned 0.50 GM/DL 0.28-0.60 [facility] ([facility]) Gamma Globulins 0.96 GM/DL 0.65-1.58 [facility] ([facility]) Vuoe-9-Xjgebrwag 0.46 GM/DL 0.19-0.55 [facility] ([facility]) Total Protein 6.9 GM/DL 6.4-8.2 [facility] ([facility]) Spep Interpretation Laboratory test result [facility] ([facility]) NO M-SPIKE(S)NOTED. Laboratory test finding (navigational concept) Laboratory test result [facility] ([facility]) REV'D BY Samaria SENIORONG ID Date Data Source [id number] 03/13/2020 11:31:00 AM EDT [facility] ([facility]) Name Value Range Interpretation Code Description Data Amber rce(s) Supporting Document(s) Perinuclear AB Anca-P Laboratory test result [facility]) The presence of positive fluorescence ex hibiting [...] Pathol 1999;111:507-513. Anca-Atypical Laboratory test result [facility]) The atypical pANCA pattern has been obse rved in a significant percentage of patients with ulcerative colitis, primary sclerosing cholangitis and autoimmune hepatitis. Cytoplasmic Neutrop AB Anca-C Laboratory test result [facility] ([facility]) ID Date Data Source [id number] 02/12/2020 12:00:00 AM EDT [facility] Patient Name: MAHESH [id number] [facility] Date of : 1945[place] [address] Date of Exam: 02/12/2020PH#: Fax: [phone] EXAM: MRI PELVIS WITHOUT CONTRASTCLINICAL INFORMATION: Bilateral hip pain.There are no prior pelvic MRI's for comparison.3T multiplanar MRI imaging of the pelvis was obtained using varioussequences.The femoral heads are spherical in shape and symmetric in appearance.There is qnyb-qy-dniooowy rather symmetric appearing hip joint spacenarrowing. No abnormal focal chondral or subchondral signal is seen in thefemoral or acetabular component of either hip. There is no hip jointeffusion. There is jyqb-xp-ewgbabxw T2 hypersignal seen in thetrochanteric tendinobursal region of each hip. The signal and morphologythroughout the imaged musculature is within normal limits. There is noevidence of a mass or mass effect. The sacroiliac joints are within normallimits. The cortical and marrow signal seen throughout the imaged osseouspelvis is within normal limits.IMPRESSION:1. Gfng-pc-lvgahhsw bilateral hip degenerative changes.2. Glzn-wz-gyyjofse bilateral trochanteric tendinobursitis.Accredited by the [employer] in [place].ANGELIC Almaguer/Zoran hernandez for referring MAHESH AQUINO to our office. Electronically Signed - JASSON BETTS DO 02/12/20 17:50 Name Value Range Interpretation Code Description Data Amber rce(s) Supporting Document(s) ID Date Data Source [id number] 02/01/2020 09:00:00 PM EDT [facility] ([facility]) Name Value Range Interpretation Code Description Data Amber rce(s) Supporting Document(s) Prothrombin Time 13.2 s 11.8-14.0 [facility] ([facility]) Partial Thromboplastin Time 30.2 s 25.0-38.4 ME [facility] ([facility]) Inr 0.99 [facility]) THERAPUTIC HUMAN INR VALUES INDICATIONS NORMAL RANGES PROPHYLAXIS/TREATMENT OF: VENOUS THROMBOSIS 2.0-3.0 PULMONARY EMBOLISM 2.0-3.0 PREVENTION OF SYSTEMIC EMBOLISM FROM: TISSUE HEART VALVES 2.0-3.0 ACUTE MYOCARDIAL INFARCTION 2.0-3.0 VALVULAR HEART DISEASE 2.0-3.0 ATRIAL FIBRILLATION 2.0-3.0 MECHANICAL VALVES(HIGH RISK) 2.5-3.5 RECURRENT MYOCARDIAL INFARCTION 2.5-3.5 ID Date Data Source [id number] 02/01/2020 08:40:00 PM EDT [facility] ([facility]) Name Value Range Interpretation Code Description Data Amber rce(s) Supporting Document(s) White Blood Count 9.8 10 4.0-10.0 [facility] ([facility]) Hemoglobin 10.0 g/dL 12.0-15.5 [facility] Red Blood Count 3.59 10 4.00-5.40 [facility] ([facility]) Hematocrit 33.1 % 36.0-47.0 [facility]) Mean Corpuscular Volume 92.2 fl 80.0-96.0 [facility] ([facility]) Mean Corpuscular Hemoglobin 27.9 pg 27.0-33.0 ME [facility] ([facility]) Platelet Count, Automated 427 10 150-450 MED[facility] NT ([facility]) Red Cell Distribution Width 15.9 % 11.5-14.5 ME [facility] ([facility]) Mean Corpuscular HGB Conc 30.2 g/dL 32.0-36.5 MED[facility] NT ([facility]) [place] % 8.8 % 0.0-5.0 [facility]) Neutrophils % 56.1 % 36.0-66.0 [facility] ([facility]) Lymph % 28.3 % 24.0-44.0 [facility]) Eos % 5.8 % 0.0-3.0 [facility]) Immature Granulocyte % 0.3 % 0-3.0 [facility] ([facility]) Baso % 0.7 % 0.0-1.0 [facility]) Nucleated Red Blood Cell % 0.0 % 0-0 [facility] ([facility]) Neutrophils # 5.5 10 1.5-8.5 [facility] ([facility]) Eos # 0.6 10 0.0-0.5 [facility]) Lymph # 2.8 10 1.5-5.0 [facility]) [place] # 0.9 10 0.0-0.8 [facility]) Baso # 0.1 10 0.0-0.2 [facility]) ID Date Data Source [id number] 02/01/2020 08:40:00 PM EDT [facility] ([facility]) Name Value Range Interpretation Code Description Data Amber rce(s) Supporting Document(s) Troponin I.cardiac [Mass/volume] in Serum or Plasma Laboratory test result [facility] ([facility]) <content>Troponin I Reference Interval f or Siemens [place] LOCI:</content>
<content></content>
<content>99th Percentile= 0.00-0.045 ng/ml</content>
<content></content>
<content>Risk Stratification:</content>
<content><= 0.10 ng/ml Decreased Risk for Adverse Clinical</content>
<content>Events.</content>
<content>0.10-1.50 ng/ml Increased Risk for Adverse Clinical</content>
<content>Events. Evaluation of additional</content>
<content>criterion and/or repeat testing in 2-6</content>
<content>hours is suggested to rule out myocardial</content>
<content>damage.</content>
<content>>= 1.50 ng/ml Indicative of Myocardial Injury.</content>
<content></content> Lipoprotein lipase [Enzymatic activity/volume] in Serum or Plasm a 80 U/L 73-393 [facility] ([facility]) Thyrotropin [Units/volume] in Serum or Plasma by Detec tion limit <= 0.05 mIU/L 0.753 uIU/ML 0.358-3.740 [facility] ([facility] ) Thyroxine (T4) free [Mass/volume] in Serum or Plasma 0.90 ng/dL 0.76- 1.46 [facility] ([facility]) ID Date Data Source [id number] 02/01/2020 08:40:00 PM EDT [facility] ([facility]) Name Value Range Interpretation Code Description Data Amber rce(s) Supporting Document(s) Glucose, Fasting 103 mg/dL 70-100 [facility] ([facility]) Blood Urea Nitrogen 10 mg/dL 7-18 [facility] ([facility]) Creatinine For GFR 1.34 mg/dL 0.55-1.30 [facility] ([facility]) Sodium Level 138 meq/L 136-145 [facility] ([facility]) Glomerular Filtration Rate 41.3 [facility] ([facility]) <content>Units are mL/min/1.73 m2</content>
<content></content>
<content>Chronic Kidney Disease Staging per NKF:</content>
<content></content>
<content>Stage I & II GFR >=60 Normal to Mildly Decreased</content>
<content>Stage III GFR 30- 59 Moderately Decreased</content>
<content>Stage IV GFR 15-29 Severely Decreased</content>
<content>Stage V GFR <15 Very Little GFR Left</content>
<content>ESRD GFR <15 on CLERICAL AIDE TEACHER</content>
<content></content> Potassium Serum 4.4 meq/L 3.5-5.1 [facility] ([facility]) Chloride Level 107 meq/L 98-107 [facility] ([facility]) Carbon Dioxide Level 27 meq/L 21-32 [facility] ([facility]) Anion Gap 4 meq/L 8-16 [facility] ([facility]) Calcium Level 8.5 mg/dL 8.8-10.2 [facility] ([facility]) ID Date Data Source [id number] 02/01/2020 08:40:00 PM EDT [facility] ([facility]) Name Value Range Interpretation Code Description Data Amber rce(s) Supporting Document(s) Ast/Sgot 11 U/L 7-37 [facility] ([facility]) Alt/SGPT 11 U/L 12-78 [facility] ([facility]) Bilirubin,Total 0.1 mg/dL 0.2-1.0 [facility] ([facility]) Alkaline Phosphatase 101 U/L 45-117 [facility] ([facility]) Bilirubin,Direct Laboratory test result 0.0-0.2 [facility] ([facility]) Albumin 3.0 GM/DL 3.2-5.2 [facility] ([facility]) Total Protein 7.0 GM/DL 6.4-8.2 [facility] ([facility]) Albumin/Globulin Ratio 0.8 1.2-2.2 [facility] ([facility]) ID Date Data Source [id number] 02/01/2020 08:40:00 PM EDT [facility] ([facility]) Name Value Range Interpretation Code Description Data Amber rce(s) Supporting Document(s) CPK Creatine Phosphokinase 60 U/L 26-192 [facility]) CK-MB Value Mass Laboratory test result [facility] ([facility]) MB/CK Relative Index 1.67 [facility] ([facility]) <content>DIAGNOSIS CRITERIA</content>
<content>MMB ng/ml Relative Index (RI)</content>
<content>NON-AMI < or = 5 N/A</content>
<content>BLANC ZONE > 5 < or = 4</content>
<content>AMI > 5 > 4</content>
<content></content> ID Date Data Source [id number] 01/24/2020 01:00:00 PM EDT [facility] ([facility]) Name Value Range Interpretation Code Description Data Amber rce(s) Supporting Document(s) C reactive protein [Mass/volume] in Serum or Plasma by High sensitivity method Laboratory test result [facility] ([facility]) ID Date Data Source [id number] 01/24/2020 12:59:00 PM EDT [facility] ([facility]) Name Value Range Interpretation Code Description Data Amber rce(s) Supporting Document(s) Erythrocyte sedimentation rate by Westergren method 54 mm/hr 0-15 [facility] ([facility]) ID Date Data Source [id number] 12/31/2019 01:24:00 PM EDT [facility]) Name Value Range Interpretation Code Description Data Amber rce(s) Supporting Document(s) Laboratory test finding (navigational concept) 122 mg/dL 70-105 [facility] ([facility]) Laboratory test finding (navigational concept) 31.0 % 38.0-51.0 [facility] ([facility]) Laboratory test finding (navigational concept) 3.8 meq/L 3.5-5.1 [facility] ([facility]) Laboratory test finding (navigational concept) 4.6 mg/dL 4.5-5.3 [facility] ([facility]) Laboratory test finding (navigational concept) 138 meq/L 136-145 [facility] ([facility]) Laboratory test finding (navigational concept) 9 mg/dL 8-26 [facility] ([facility]) Laboratory test finding (navigational concept) 20.0 MM/L 23.0-27.0 [facility] ([facility]) Laboratory test finding (navigational concept) 104 meq/L 98-109 [facility] ([facility]) Laboratory test finding (navigational concept) 1.3 mg/dL 0.6-1.3 [facility] ([facility]) ID Date Data Source [id number] 12/31/2019 01:22:00 PM EDT [facility] ([facility]) Name Value Range Interpretation Code Description Data Amber rce(s) Supporting Document(s) White Blood Count 13.4 10 4.0-10.0 [facility] ([facility]) Red Blood Count 3.12 10 4.00-5.40 [facility] ([facility]) Hematocrit 28.8 % 36.0-47.0 [facility] Hemoglobin 8.9 g/dL 12.0-15.5 [facility] ([facility]) Mean Corpuscular Volume 92.3 fl 80.0-96.0 [facility] ([facility]) Mean Corpuscular HGB Conc 30.9 g/dL 32.0-36.5 [facility] ([facility]) Mean Corpuscular Hemoglobin 28.5 pg 27.0-33.0 [facility] ([facility]) Red Cell Distribution Width 17.3 % 11.5-14.5 [facility] ([facility]) Neutrophils % 71.0 % 36.0-66.0 [facility] ([facility]) Platelet Count, Automated 449 10 150-450 [facility] ([facility]) [place] % 9.4 % 0.0-5.0 [facility]) Eos % 3.4 % 0.0-3.0 [facility] Lymph % 15.3 % 24.0-44.0 [facility] [place] [facility] Baso % 0.5 % 0.0-1.0 [facility] [place] [facility] Immature Granulocyte % 0.4 % 0-3.0 [facility] ([facility]) Nucleated Red Blood Cell % 0.0 % 0-0 [facility] ([facility]) Neutrophils # 9.5 10 1.5-8.5 [facility] ([facility]) Lymph # 2.0 10 1.5-5.0 [facility] [place] # 1.3 10 0.0-0.8 [facility] Eos # 0.5 10 0.0-0.5 [facility] Baso # 0.1 10 0.0-0.2 [facility] [place] ID Date Data Source [id number] 12/31/2019 01:17:00 PM EDT [facility] ([facility]) Name Value Range Interpretation Code Description Data Amber rce(s) Supporting Document(s) Laboratory test finding (navigational concept) 0.00 ng/mL 0.00-0.08 [facility] ([facility]) ID Date Data Source [id number] 12/31/2019 01:17:00 PM EDT [facility] ([facility]) Name Value Range Interpretation Code Description Data Amber rce(s) Supporting Document(s) Troponin I.cardiac [Mass/volume] in Serum or Plasma Laboratory test result [facility] ([facility]) Laboratory test finding (navigational concept) 0.00 ng/mL 0.00-0.08 [facility] ([facility]) ID Date Data Source [id number] 12/19/2019 02:28:00 PM EDT [facility] ([facility]) Name Value Range Interpretation Code Description Data Amber rce(s) Supporting Document(s) Cholesterol [Mass/volume] in Serum or Plasma 109 mg/dL 131-200 [facility] ([facility]) Cholesterol in HDL [Mass/volume] in Serum or Plasma 52 mg/dL 35-60 [facility] ([facility]) Triglyceride [Mass/volume] in Serum or Plasma 93 mg/dL 30-150 [facility] ([facility]) Cholesterol in LDL [Mass/volume] in Serum or Plasma by calcu lation 38 CALC 50-159 [facility] ([facility]) ID Date Data Source [id number] 12/19/2019 02:28:00 PM EDT [facility] ([facility]) Name Value Range Interpretation Code Description Data Amber rce(s) Supporting Document(s) Urea nitrogen [Mass/volume] in Serum or Plasma 11 mg/dL 7-18 [facility] ([facility]) Creatinine 1.5 mg/dL 0.6-1.3 [facility] ([facility]) NOTE: RESULT VERIFIED. Glucose [Mass/volume] in Serum or Plasma 100 mg/dL 74-99 [facility] ([facility]) 100-125 mg/dL PRE-DIABETES/FASTING >126 mg/dL DIABETES/FASTING Sodium [Moles/volume] in Serum or Plasma 138 meq/L 136-145 [facility] ([facility]) Chloride [Moles/volume] in Serum or Plasma 104 meq/L 98-107 [facility] ([facility]) Potassium [Moles/volume] in Serum or Plasma 4.5 meq/L 3.5-5.1 [facility] ([facility]) Calcium [Mass/volume] in Serum or Plasma 8.0 mg/dL 8.5-10.1 [facility] ([facility]) NOTE: RESULT VERIFIED. Alkaline phosphatase isoenzyme [Units/volume] in Serum or Pl asma 96 mg/dL 46-116 [facility] ([facility]) Carbon dioxide, total [Moles/volume] in Serum or Plasma 27 meq/L 21 -32 [facility] ([facility]) Aspartate aminotransferase [Enzymatic activity/volume] in Serum or Plasma 10 U/L 15-37 [facility] ([facility] ) Alanine aminotransferase [Enzymatic activity/volume] in Seru m or Plasma 14 U/L 12-78 [facility] ([facility]) Total Bilirubin 0.2 mg/dL 0.2-1.0 [facility] ([facility]) A/G Ratio 0.61 CALC 1.00-1.90 [facility]) Albumin [Mass/volume] in Serum or Plasma 2.7 g/dL 3.4-5.0 [facility] ([facility]) NOTE: RESULT VERIFIED. Proteinase 3 Ab [Units/volume] in Serum 7.1 g/dL 6.4-8.2 [facility] ([facility]) Glomerular filtration rate/1.73 sq M pre dicted among non-blacks [Volume Rate/Area] in Serum or Plasma by Creatinine-based formula (MDRD) 34 mL/min [facility] ([facility]) Glomerular filtration rate/1.73 sq M pre dicted among blacks [Volume Rate/Area] in Serum or Plasma by Creatinine-based formula (MDRD) 41 mL/min [facility] ([facility]) <content>CHRONIC KIDNEY DISEASE STAGING PER NKF</content>
<content></content>
<content>STAGE I & II GFR >= 60 NORMAL TO MILDLY DECREASED</content>
<content>STAGE III GFR 30-59 MODERATELY DECREASED</content>
<content>STAGE IV GFR 15-29 SEVERELY DECREASED</content>
<content>STAGE V GFR <15 VERY LITTLE GFR LEFT</content>
<content>ESRD GFR <15 ON CLERICAL AIDE TEACHER</content>
<content></content> ID Date Data Source [id number] 12/19/2019 02:28:00 PM EDT [facility] ([facility]) Name Value Range Interpretation Code Description Data Amber rce(s) Supporting Document(s) Erythrocyte sedimentation rate by Westergren method 55 mm/hr 0-15 [facility] ([facility]) ID Date Data Source [id number] 12/19/2019 02:28:00 PM EDT [facility] ([facility]) Name Value Range Interpretation Code Description Data Amber rce(s) Supporting Document(s) Leukocytes [#/volume] in Blood by Automated count 10.8 x10*3/UL 4.1-1 0.9 [facility] ([facility]) Erythrocytes [#/volume] in Blood by Automated count 3.41 x10*6/UL 4.2 0-6.30 [facility] ([facility]) Hemoglobin [Mass/volume] in Blood 9.7 g/dL 12.0-18.0 [facility] ([facility]) NOTE: RESULT VERIFIED. MCV 88.7 fL 80.0-97.0 [facility] ([facility]) MCH 28.6 pg 26.0-32.0 [facility] ([facility]) Hematocrit [Volume Fraction] of Blood by Automated count 30.3 % 3 7.0-51.0 [facility] ([facility]) Erythrocyte distribution width [Ratio] by Automated count 17.2 % 11.6-13.7 [facility] ([facility]) Platelets [#/volume] in Blood by Automated count 530 x10*3/UL 140-440 [facility] ([facility]) MCHC 32.2 g/dL 31.0-38.0 [facility] ([facility]) MPV 7.0 FL 7.8-11.0 [facility] ([facility]) Mid % 7.6 % 1.7-9.3 [facility] ([facility]) Lymph % 21.6 % 10.0-58.5 [facility] ([facility]) Mid # 0.8 x10*3/UL 0.1-0.6 [facility] ([facility]) Neut % 70.8 % 37.0-92.0 [facility] ([facility]) Lymph # 2.3 x10*3/UL 0.6-4.1 [facility] ([facility]) Neut # 7.7 x10*3/UL 2.0-7.8 [facility] ([facility]) ID Date Data Source [id number] 10/22/2019 02:22:00 PM EDT [facility] ([facility]) Name Value Range Interpretation Code Description Data Amber rce(s) Supporting Document(s) Cyclic citrullinated peptide IgG Ab [Units/volume] in Serum or Plasma 9 units 0-19 [facility] ([facility]) <content>Negative <20</con tent>
<content>Weak positive 20 - 39</content>
<content>Moderate positive 40 - 59</content>
<content>Strong positive >59</content>
<content>Performed at: [facility]</content>
<content>[address], [place] [id number]</content>
<content>Mortgage Consultant: Trevin Hardin MD, Phone: [phone]</content>
<content></content> ID Date Data Source [id number] 10/22/2019 02:22:00 PM EDT [facility] ([facility]) Name Value Range Interpretation Code Description Data Amber rce(s) Supporting Document(s) Glucose [Mass/volume] in Serum or Plasma 131 mg/dL 74-99 [facility] ([facility]) 100-125 mg/dL PRE-DIABETES/FASTING >126 mg/dL DIABETES/FASTING Creatinine 1.9 mg/dL 0.6-1.3 [facility]) Urea nitrogen [Mass/volume] in Serum or Plasma 17 mg/dL 7-18 [facility] ([facility]) Chloride [Moles/volume] in Serum or Plasma 103 meq/L 98-107 [facility] ([facility]) Carbon dioxide, total [Moles/volume] in Serum or Plasma 25 meq/L 21 -32 [facility] ([facility]) Sodium [Moles/volume] in Serum or Plasma 139 meq/L 136-145 [facility] ([facility]) Potassium [Moles/volume] in Serum or Plasma 3.7 meq/L 3.5-5.1 [facility] ([facility]) Glomerular filtration rate/1.73 sq M pre dicted among blacks [Volume Rate/Area] in Serum or Plasma by Creatinine-based formula (MDRD) 31 mL/min [facility] ([facility]) <content>CHRONIC KIDNEY DISEASE STAGING PER NKF</content>
<content></content>
<content>STAGE I & II GFR >= 60 NORMAL TO MILDLY DECREASED</content>
<content>STAGE III GFR 30-59 MODERATELY DECREASED</content>
<content>STAGE IV GFR 15-29 SEVERELY DECREASED</content>
<content>STAGE V GFR <15 VERY LITTLE GFR LEFT</content>
<content>ESRD GFR <15 ON CLERICAL AIDE TEACHER</content>
<content></content> Calcium [Mass/volume] in Serum or Plasma 8.3 mg/dL 8.5-10.1 [facility] ([facility]) Glomerular filtration rate/1.73 sq M pre dicted among non-blacks [Volume Rate/Area] in Serum or Plasma by Creatinine-based formula (MDRD) 26 mL/min [facility] ([facility]) ID Date Data Source [id number] 10/22/2019 02:22:00 PM EDT [facility] ([facility]) Name Value Range Interpretation Code Description Data Amber rce(s) Supporting Document(s) Erythrocyte sedimentation rate by Westergren method 55 mm/hr 0-15 [facility] ([facility]) ID Date Data Source [id number] 10/22/2019 02:22:00 PM EDT [facility] ([facility]) Name Value Range Interpretation Code Description Data Amber rce(s) Supporting Document(s) Erythrocytes [#/volume] in Blood by Automated count 3.58 x10*6/UL 4.2 0-6.30 [facility] ([facility]) Leukocytes [#/volume] in Blood by Automated count 14.0 x10*3/UL 4.1-1 0.9 [facility] ([facility]) NOTE: RESULT VERIFIED. MCH 28.5 pg 26.0-32.0 [facility] Hematocrit [Volume Fraction] of Blood by Automated count 30.5 % 3 7.0-51.0 [facility] ([facility]) Hemoglobin [Mass/volume] in Blood 10.2 g/dL 12.0-18.0 [facility] ([facility]) MCV 85.0 fL 80.0-97.0 [facility] ([facility]) MCHC 33.5 g/dL 31.0-38.0 [facility] ([facility]) Platelets [#/volume] in Blood by Automated count 551 x10*3/UL 140-440 [facility] ([facility]) Erythrocyte distribution width [Ratio] by Automated count 15.5 % 11.6-13.7 [facility] ([facility]) Lymph % 17.5 % 10.0-58.5 [facility] ([facility]) Neut % 77.4 % 37.0-92.0 [facility] ([facility]) MPV 7.6 FL 7.8-11.0 [facility] ([facility]) Mid % 5.1 % 1.7-9.3 [facility] ([facility]) Neut # 10.9 x10*3/UL 2.0-7.8 [facility] ([facility]) Lymph # 2.4 x10*3/UL 0.6-4.1 [facility] ([facility]) Mid # 0.7 x10*3/UL 0.1-0.6 [facility] ([facility]) ID Date Data Source [id number] 09/17/2019 02:25:00 PM EDT [facility] ([facility]) Name Value Range Interpretation Code Description Data Amber rce(s) Supporting Document(s) Urea nitrogen [Mass/volume] in Serum or Plasma 16 mg/dL 7-18 [facility] ([facility]) Sodium [Moles/volume] in Serum or Plasma 138 meq/L 136-145 [facility] ([facility]) Creatinine 1.8 mg/dL 0.6-1.3 [facility] ([facility]) Glucose [Mass/volume] in Serum or Plasma 123 mg/dL 74-99 [facility] ([facility]) 100-125 mg/dL PRE-DIABETES/FASTING >126 mg/dL DIABETES/FASTING Carbon dioxide, total [Moles/volume] in Serum or Plasma 26 meq/L 21 -32 [facility] ([facility]) Potassium [Moles/volume] in Serum or Plasma 3.6 meq/L 3.5-5.1 [facility] ([facility]) Calcium [Mass/volume] in Serum or Plasma 8.3 mg/dL 8.5-10.1 [facility] ([facility]) Chloride [Moles/volume] in Serum or Plasma 103 meq/L 98-107 [facility] ([facility]) Aspartate aminotransferase [Enzymatic activity/volume] in Se rum or Plasma 8 U/L 15-37 [facility] ([facility]) Alanine aminotransferase [Enzymatic activity/volume] in Seru m or Plasma 11 U/L 12-78 [facility] ([facility]) Alkaline phosphatase isoenzyme [Units/volume] in Serum or Pl asma 96 mg/dL 46-116 [facility] ([facility]) Total Bilirubin 0.2 mg/dL 0.2-1.0 [facility] ([facility]) Albumin [Mass/volume] in Serum or Plasma 2.9 g/dL 3.4-5.0 [facility] ([facility]) Proteinase 3 Ab [Units/volume] in Serum 7.9 g/dL 6.4-8.2 [facility] ([facility]) A/G Ratio 0.58 CALC 1.00-1.90 [facility] ([facility]) Glomerular filtration rate/1.73 sq M pre dicted among non-blacks [Volume Rate/Area] in Serum or Plasma by Creatinine-based formula (MDRD) 28 mL/min [facility] ([facility]) Glomerular filtration rate/1.73 sq M pre dicted among blacks [Volume Rate/Area] in Serum or Plasma by Creatinine-based formula (MDRD) 33 mL/min [facility] ([facility]) <content>CHRONIC KIDNEY DISEASE STAGING PER NKF</content>
<content></content>
<content>STAGE I & II GFR >= 60 NORMAL TO MILDLY DECREASED</content>
<content>STAGE III GFR 30-59 MODERATELY DECREASED</content>
<content>STAGE IV GFR 15-29 SEVERELY DECREASED</content>
<content>STAGE V GFR <15 VERY LITTLE GFR LEFT</content>
<content>ESRD GFR <15 ON CLERICAL AIDE TEACHER</content>
<content></content> ID Date Data Source [id number] 09/17/2019 02:25:00 PM EDT [facility] ([facility]) Name Value Range Interpretation Code Description Data Amber rce(s) Supporting Document(s) Creatine kinase [Enzymatic activity/volume] in Serum or Plasma 40 U /L 26-192 [facility] ([facility]) ID Date Data Source [id number] 09/17/2019 02:24:00 PM EDT [facility] ([facility]) Name Value Range Interpretation Code Description Data Amber rce(s) Supporting Document(s) Myoglobin Screen, Urine Laboratory test result [facility] ([facility]) ID Date Data Source [id number] 09/17/2019 02:24:00 PM EDT [facility] ([facility]) Name Value Range Interpretation Code Description Data Amber rce(s) Supporting Document(s) Color, Urine Laboratory test result [facility] ([facility]) Appearance, Urine Laboratory test result [facility] ([facility]) Specific Jenkins Urine Auto 1.014 1.002-1.035 [facility] ([facility]) Protein, Urine Auto Laboratory test result [facility] ([facility]) PH,Urine 5.0 units 5.0-9.0 [facility] Glucose, Urine (Ua) Auto Laboratory test result [facility] ([facility]) Ketone, Urine Auto Laboratory test result [facility] ([facility]) Bilirubin, Urine Auto Laboratory test result [facility] ([facility]) Urobilinogen, Urine Auto 0.2 mg/dL 0.0-2.0 [facility] ([facility]) Leukocyte Esterase, Urine Auto Laboratory test result [facility] ([facility]) WBC, Urine Auto 7 /HPF 0-3 [facility] ([facility]) Blood, Urine Blood Laboratory test result [facility] ([facility]) Nitrite, Urine Auto Laboratory test result [facility] ([facility]) Bacteria, Urine Auto Laboratory test result [facility] ([facility]) Squamous Epithelial Cell Ur AU 2 /HPF 0-6 [facility] ([facility]) RBC, Urine Auto 4 /HPF 0-3 [facility] ([facility]) Transitional Epithelial Auto Laboratory test result [facility] ([facility]) Hyaline Cast, Urine Auto 0 /LPF 0-1 [facility] ([facility]) Mucus, Urine Laboratory test result [facility] ([facility]) ID Date Data Source [id number] 09/06/2019 02:22:00 PM EST [facility] ([facility]) Name Value Range Interpretation Code Description Data Amber rce(s) Supporting Document(s) PTT Lupus Type Anticoag Screen 1.1 0-1.2 [facility] ([facility]) RESULT IS LESS THAN 1.2, [...] a specific inhibitor. ID Date Data Source [id number] 09/06/2019 02:22:00 PM EST [facility] ([facility]) Name Value Range Interpretation Code Description Data Amber rce(s) Supporting Document(s) Cyclic citrullinated peptide IgG Ab [Units/volume] in Serum or Plasma 9 units 0-19 [facility] ([facility]) <content>Negative <20</con tent>
<content>Weak positive 20 - 39</content>
<content>Moderate positive 40 - 59</content>
<content>Strong positive >59</content>
<content>Performed at: [facility]</content>
<content>[address] [place] [id number]</content>
<content>Mortgage Consultant: Trevin Hardin MD, Phone: [phone]</content>
<content></content> ID Date Data Source [id number] 09/06/2019 02:18:00 PM EST [facility] ([facility]) Name Value Range Interpretation Code Description Data Amber rce(s) Supporting Document(s) Glucose [Mass/volume] in Serum or Plasma 130 mg/dL 74-99 [facility] ([facility]) 100-125 mg/dL PRE-DIABETES/FASTING >126 mg/dL DIABETES/FASTING Urea nitrogen [Mass/volume] in Serum or Plasma 18 mg/dL 7-18 [facility] ([facility]) Potassium [Moles/volume] in Serum or Plasma 3.8 meq/L 3.5-5.1 [facility] ([facility]) Creatinine 2.0 mg/dL 0.6-1.3 [facility] ([facility]) Sodium [Moles/volume] in Serum or Plasma 138 meq/L 136-145 [facility] ([facility]) Carbon dioxide, total [Moles/volume] in Serum or Plasma 23 meq/L 21 -32 [facility] ([facility]) Chloride [Moles/volume] in Serum or Plasma 103 meq/L 98-107 [facility] ([facility]) Calcium [Mass/volume] in Serum or Plasma 8.4 mg/dL 8.5-10.1 [facility] ([facility]) Glomerular filtration rate/1.73 sq M pre dicted among non-blacks [Volume Rate/Area] in Serum or Plasma by Creatinine-based formula (MDRD) 24 mL/min [facility] ([facility]) Glomerular filtration rate/1.73 sq M pre dicted among blacks [Volume Rate/Area] in Serum or Plasma by Creatinine-based formula (MDRD) 30 mL/min [facility] ([facility]) <content>CHRONIC KIDNEY DISEASE STAGING PER NKF</content>
<content></content>
<content>STAGE I & II GFR >= 60 NORMAL TO MILDLY DECREASED</content>
<content>STAGE III GFR 30-59 MODERATELY DECREASED</content>
<content>STAGE IV GFR 15-29 SEVERELY DECREASED</content>
<content>STAGE V GFR <15 VERY LITTLE GFR LEFT</content>
<content>ESRD GFR <15 ON CLERICAL AIDE TEACHER</content>
<content></content> ID Date Data Source [id number] 09/06/2019 02:18:00 PM EST MEDENT ([facility]) Name Value Range Interpretation Code Description Data Amber rce(s) Supporting Document(s) Leukocytes [#/volume] in Blood by Automated count 10.4 x10*3/UL 4.1-1 0.9 MEDENT ([facility]) Erythrocytes [#/volume] in Blood by Automated count 3.79 x10*6/UL 4.2 0-6.30 [facility] ([facility]) Hemoglobin [Mass/volume] in Blood 10.8 g/dL 12.0-18.0 [facility] ([facility]) Hematocrit [Volume Fraction] of Blood by Automated count 33.2 % 3 7.0-51.0 [facility] ([facility]) MCV 87.6 fL 80.0-97.0 [facility] MCHC 32.6 g/dL 31.0-38.0 [facility] MCH 28.5 pg 26.0-32.0 [facility] Platelets [#/volume] in Blood by Automated count 455 x10*3/UL 140-440 MED[facility] ([facility]) Erythrocyte distribution width [Ratio] by Automated count 15.4 % 11.6-13.7 [facility] ([facility]) MPV 7.5 FL 7.8-11.0 [facility] Lymph % 17.2 % 10.0-58.5 [facility] Mid % 6.2 % 1.7-9.3 [facility] Mid # 0.8 x10*3/UL 0.1-0.6 [facility] ([facility]) Neut # 7.9 x10*3/UL 2.0-7.8 [facility] ([facility]) Lymph # 1.7 x10*3/UL 0.6-4.1 [facility] ([facility]) Neut % 76.6 % 37.0-92.0 [facility] ID Date Data Source [id number] 09/02/2019 12:48:00 PM EST MEDENT ([facility]) Name Value Range Interpretation Code Description Data Amber rce(s) Supporting Document(s) Antinuclear Antibodies Laboratory test result [facility] ([facility]) Performed at: RN - [facility] [address] [id number] Mortgage Consultant: Jillian Miner MD, Phone: [phone] ID Date Data Source [id number] 09/02/2019 12:48:00 PM EST MEDENT ([facility]) Name Value Range Interpretation Code Description Data Amber rce(s) Supporting Document(s) Rheumatoid Factor Quant 48.1 IU/ml MEDEN T ([facility]) <content>note:<nlbl:demographic_changed></content>
<content>note:<nlbl:demog raphic_changed></content>
<content>note:<nlbl:demographic_changed></content>
<content></content> Erythrocyte sedimentation rate by Westergren method 65 mm/hr 0-30 [facility] ([facility]) Bacteria identified in Blood by Culture Laboratory test result [facility] ([facility]) No growth after 72 hours . All [...] by High sensitivity method 4.23 mg/dL 0.00-0.30 [facility] ([facility] ) <content>note:<nlbl:demographic_changed></content>
<content>note:<nlbl:demog raphic_changed></content>
<content>note:<nlbl:demographic_changed></content>
<content></content> ID Date Data Source [id number] 09/02/2019 12:48:00 PM EST MEDENT ([facility]) Name Value Range Interpretation Code Description Data Amber rce(s) Supporting Document(s) CPK Creatine Phosphokinase 87 U/L 26-192 [facility] ENT ([facility]) MB/CK Relative Index 1.95 [facility] ([facility]) <content>DIAGNOSIS CRITERIA</content>
<content>MMB ng/ml Relative Index (RI)</content>
<content>NON-AMI < or = 5 N/A</content>
<content>BLANC ZONE > 5 < or = 4</content>
<content>AMI > 5 > 4</content>
<content></content> CK-MB Value Mass 1.7 ng/mL [facility] ([facility]) Troponin I Laboratory test result [facility]) <content>Troponin I Reference Interval f or Siemens [place] LOCI:</content>
<content></content>
<content>99th Percentile= 0.00-0.045 ng/ml</content>
<content></content>
<content>Risk Stratification:</content>
<content><= 0.10 ng/ml Decreased Risk for Adverse Clinical</content>
<content>Events.</content>
<content>0.10-1.50 ng/ml Increased Risk for Adverse Clinical</content>
<content>Events. Evaluation of additional</content>
<content>criterion and/or repeat testing in 2-6</content>
<content>hours is suggested to rule out myocardial</content>
<content>damage.</content>
<content>>= 1.50 ng/ml Indicative of Myocardial Injury.</content>
<content></content> ID Date Data Source [id number] 09/02/2019 12:48:00 PM EST MEDENT ([facility]) Name Value Range Interpretation Code Description Data Amber rce(s) Supporting Document(s) Lactate [Mass/volume] in Serum or Plasma 1.6 mmol/L 0.4-2.0 [facility] ([facility]) <content>note:<nlbl:demographic_changed> </content>
<content>Y/N query for Sepsis Lactate Rule: Y</content>
<content></content> ID Date Data Source [id number] 09/02/2019 12:48:00 PM EST MEDENT ([facility]) Name Value Range Interpretation Code Description Data Amber rce(s) Supporting Document(s) Glucose, Fasting 88 mg/dL 70-100 [facility] ([facility]) Blood Urea Nitrogen 15 mg/dL 7-18 [facility] ([facility]) Sodium Level 138 meq/L 136-145 [facility] ([facility]) Creatinine For GFR 1.66 mg/dL 0.55-1.30 [facility] ([facility]) Glomerular Filtration Rate 32.2 [facility] ([facility]) <content>Units are mL/min/1.73 m2</content>
<content></content>
<content>Chronic Kidney Disease Staging per NKF:</content>
<content></content>
<content>Stage I & II GFR >=60 Normal to Mildly Decreased</content>
<content>Stage III GFR 30- 59 Moderately Decreased</content>
<content>Stage IV GFR 15-29 Severely Decreased</content>
<content>Stage V GFR <15 Very Little GFR Left</content>
<content>ESRD GFR <15 on CLERICAL AIDE TEACHER</content>
<content></content> Carbon Dioxide Level 23 meq/L 21-32 [facility] ([facility]) Anion Gap 7 meq/L 8-16 [facility]) Potassium Serum 4.3 meq/L 3.5-5.1 [facility] ([facility]) Chloride Level 108 meq/L 98-107 [facility] ([facility]) Calcium Level 8.0 mg/dL 8.8-10.2 [facility] ([facility]) ID Date Data Source [id number] 09/02/2019 12:48:00 PM EST MED[facility] ([facility]) Name Value Range Interpretation Code Description Data Amber rce(s) Supporting Document(s) White Blood Count 12.6 10 4.0-10.0 [facility] ([facility]) Hematocrit 36.0 % 36.0-47.0 [facility] Red Blood Count 3.85 10 4.00-5.40 [facility] ([facility]) Hemoglobin 10.8 g/dL 12.0-15.5 [facility] ([facility] Red Cell Distribution Width 16.1 % 11.5-14.5 NM DENT ([facility]) Mean Corpuscular HGB Conc 30.0 g/dL 32.0-36.5 MEDE NT ([facility]) Mean Corpuscular Hemoglobin 28.1 pg 27.0-33.0 ME DENT ([facility]) Mean Corpuscular Volume 93.5 fl 80.0-96.0 [facility] ([facility]) Lymph % 16.7 % 24.0-44.0 [facility]) Platelet Count, Automated 481 10 150-450 MEDE NT ([facility]) Neutrophils % 64.1 % 36.0-66.0 [facility] ([facility]) Baso % 0.7 % 0.0-1.0 [facility]) Eos % 12.8 % 0.0-3.0 [facility]) [place] % 5.2 % 0.0-5.0 [facility]) Lymph # 2.1 10 1.5-5.0 [facility]) Neutrophils # 8.1 10 1.5-8.5 [facility] ([facility]) Immature Granulocyte % 0.5 % 0-3.0 [facility] ([facility]) Nucleated Red Blood Cell % 0.0 % 0-0 MED [facility] ([facility]) Eos # 1.6 10 0.0-0.5 [facility]) Baso # 0.1 10 0.0-0.2 [facility]) [place] # 0.7 10 0.0-0.8 [facility]) ID Date Data Source [id number] 08/07/2019 10:04:30 PM EST [facility] Name Value Range Interpretation Code Description Data Amber rce(s) Supporting Document(s) &PDF [facility] THFMPb8cDcPYUaDj99/PUOyxVUIac1FtNQvaLBf8ZVvpKZNqX9HbhDbgTKLAOEXAN95mZP9YSXRECNBy yKE [file] rNRX8xlGLyXGeBfiI2eex/6isYC/E4YN6WnHPR6+GIFTED PROGRAM TEACHER [file] +MAtJeNAQBPVQiWVTyVI2Wy3p8e/NgSMjEwV3VFfb9bh2EnGYD0IVeRIX7RgykkRbS8eE+ZkEKGl+Entry Level Paralegal [file] AgICAgICAgICAgICAgICAgICAgICAgICAgICAgICAgICAgICAgICAgICAgICAgICAgICAgICAgICAgIC AgICAgICAgICANCiAgICAgICAgICAgICAgICAgICAg ICAgICAgICAgICAgICAgICAgICAgICAgICAgICAgICAgICAgICAgICAgICAgICAgICAgICAgICAgICAg ICAgICAgICAgICAgICAgICAgICANCiAgICAgICAgICAgICAgICAgICAgICAgICAgICAgICAgICAgICAg ICAgICAgICAgICAgICAgICAgICAgICAgICAgICAgIC AgICAgICAgICAgICAgICAgICAgICAgICAgICAgICANCiAgICAgICAgICAgICAgICAgICAgICAgICAgIC AgICAgICAgICAgICAgICAgICAgICAgICAgICAgICAgICAgICAgICAgICAgICAgICAgICAgICAgICAgIC AgICAgICAgICAgICANCiAgICAgICAgICAgICAgICAg ICAgICAgICAgICAgICAgICAgICAgICAgICAgICAgICAgICAgICAgICAgICAgICAgICAgICAgICAgICAg ICAgICAgICAgICAgICAgICAgICAgICANCiAgICAgICAgICAgICAgICAgICAgICAgICAgICAgICAgICAg ICAgICAgICAgICAgICAgICAgICAgICAgICAgICAgIC AgICAgICAgICAgICAgICAgICAgICAgICAgICAgICAgICANCiAgICAgICAgICAgICAgICAgICAgICAgIC AgICAgICAgICAgICAgICAgICAgICAgICAgICAgICAgICAgICAgICAgICAgICAgICAgICAgICAgICAgIC AgICAgICAgICAgICAgICANCiAgICAgICAgICAgICAg ICAgICAgICAgICAgICAgICAgICAgICAgICAgICAgICAgICAgICAgICAgICAgICAgICAgICAgICAgICAg ICAgICAgICAgICAgICAgICAgICAgICAgICANCiAgICAgICAgICAgICAgICAgICAgICAgICAgICAgICAg ICAgICAgICAgICAgICAgICAgICAgICAgICAgICAgIC AgICAgICAgICAgICAgICAgICAgICAgICAgICAgICAgICAgICANCiAgICAgICAgICAgICAgICAgICAgIC AgICAgICAgICAgICAgICAgICAgICAgICAgICAgICAgICAgICAgICAgICAgICAgICAgICAgICAgICAgIC AgICAgICAgICAgICAgICAgICANCjw/oQHaM2cudUDq nzE3N6twNw3QHe0KLD4ob0BwWZPdNRkvtfRxPuxMOzYiONZsEucBDjg1RCvfHD0QyNDcB1YzV7FgBHet FE0WQXFaFJGkqIXaGGIiXCEoPoE0WQNnAVeiDC6SsPLhPUabKZOqJMRuSxGjQXPmQG9RRPPlH642fkIv Zn9DFx5SWcEcXR5aru1WCkIwMPXhCfxSQox7NSfsIO 3AyWZiN8MmoPGnb1uRRlQpW6CQWFCrVJZkJl2KACFzJuYkIRUmKLxvGZ8vQXGvQLFKgYzhuuM9GM3ZDM 6ufwUsPN3UFbMkMq8xKo5GRcWtK1IjC2VxZHAyHMDBMThpZL0HPQOrBNO2YMKpTbPiOJECBbKyS38kOO 3BV5Kql20tQdD7EZPdCoLfVSckJA56bArtjwIgzHAt zPymSW5PSi9+EOrblaRxXpuBEtrfJBVPKvUaPyDVAeRuCYHkLRIlNLGhWsE2TxHdHu5KHOIgWQIpZGCe FaZhDJEeWRWyAPdxADSaZDd5WhTmMAZgWIAkBU4AKgFqBVWnADiwISLqENYjLIFpsc0BHEYbEEAdCJD6 TxPqIEDjRIJvCGraLHSqDJIjYGT0EVVaVINeVB7BZx VaMKNrJLO5CoNbQJLeKMKgib4KZNIiBLRoHUM6LDSlRJNeNYYmCYotHOOoXQT5HTb0MVWnPDRaDF6LLr KoRKHrOXD8JbQlPJWjCFPjas6PBHGrOFRuXpnzJrRzKHRzHXQeHZidXONcSDP3QJViHVHaVRCaUZ6JWw KbYFYrXZx2DIMvLHEbPWUmam0VDCNrQJOzRIN0OFJz LXMcJYKvWOxdDHBcMCN7AdNyDBInXTRlHD7NWvSmHGNzIYCrLYlvTFRuIRWvqb1QNSYmWBKbYhTsKbTm JZUeVFHePYtaRGFrYRMaUwT8LIAyNGBzXX1YIcItMNZxPEB6DLoxOKSwOOVlty0DLXRvWTKxVYKeTYUv CKXeRHApKLikDMBxYIO0ZXi1BELbJYKhMK6ZPlEzPX KiFFWgUpFsTDPsFHFaix9ZQGOtPPSrULIeOCZpWXWkUUDqSMncYMHoADRrINF6ZYVyYHTjJP3SJvTtTN NgAcFiSnwnXQLlBFDvwo6PCQNhCJRlBSM1HUGrXOYyQUKyXIgcTZPwPIY1UXOhRKCjLVLyEF1BEeSfHQ WrOWNrAVxrDKNeFUCkia4MQBQwLJB1AuI0LWWaHCKb XKOuCUrhWENyIRe9ZJL9LZBkVFQgNE8SCfVcBDYuKVNuMVrfIPZcJJYrzm7IQTLtTDF2YoB4FLDjMKOz KOLvEMduARHjHOo9TSIlMDCxOSHwIB9FLaZjNPUcRIovYAlnBCBkPQNrxz4JuYXerWtrhe6NTFaSJa7C fIkaVCJ6WFidXt1ymFPvAyEbOZHFCe3OvkPmQCVxHT LRQOjmFVZtOWUmRndfHvB9BKh8UqNtDUb5B4GhKJPxVBNkSGOvADPqPnT4MJBuR5L4HldaNFgbHNV8SI waSRD3JgGoADKhRmZ6DfI+IH3jFOy+Hv8Yq7DpbuO6vrUqKOb9AUU3VN4NXHTOR5TDMf== Procedure Social History Code Duration Value Status Description Data Source(s ) Smoking 07/13/2020 12:00:00 AM EST Current Smoker completed Curre nt Smoker eCW1 ([facility]) Smoking 07/13/2020 12:00:00 AM EST Current Smoker completed Curre nt Smoker eCW1 ([facility]) Smoking 06/24/2020 12:00:00 AM EST Current Smoker completed Curre nt Smoker eCW1 ([facility]) Alcohol intake 06/12/2020 12:00:00 AM EST Never completed [facility] Smoking 06/12/2020 12:00:00 AM EST Current every day smoker co mpleted Current every day smoker [facility] Smoking 06/04/2020 12:00:00 AM EST Current Smoker completed Curre nt Smoker eCW1 ([facility]) Smoking 06/04/2020 12:00:00 AM EST Current Smoker completed Curre nt Smoker eCW1 ([facility]) Smoking 06/04/2020 12:00:00 AM EST Current Smoker completed Curre nt Smoker eCW1 ([facility]) Smoking 05/19/2020 12:00:00 AM EST Current Smoker completed Curre nt Smoker eCW1 ([facility]) Smoking 05/19/2020 12:00:00 AM EST Current Smoker completed Curre nt Smoker eCW1 ([facility]) Smoking 05/05/2020 12:00:00 AM EST Current Smoker completed Curre nt Smoker eCW1 ([facility]) Smoking 05/05/2020 12:00:00 AM EST Current Smoker completed Curre nt Smoker eCW1 ([facility]) Smoking 01/21/2020 12:00:00 AM EDT Current Smoker completed Curre nt Smoker eCW1 ([facility]) Vital Signs ID Date Data Source UNK Name Value Range Interpretation Code Description Data Source(s) Body mass index (BMI) [Ratio] 27.9 kg/m2 27.9 k g/m2 MED[facility] ([facility]) Body weight 160.00 [lb_av] 160.00 [lb_av] MEDEN T ([facility]) Body height 63.5 [in_i] 63.5 [in_i] [facility] ([facility]) 5'3.50" Body temperature 96.3 [degF] 96.3 [degF] MED[facility] ([facility]) Diastolic blood pressure 68 mm[Hg] 68 mm[Hg] eCW1 ([facility]) Systolic blood pressure 128 mm[Hg] 128 mm[Hg] e CW1 ([facility]) Body temperature 98.2 [degF] 98.2 [degF] eCW1 ( [facility]) Respiratory rate 18 /min 18 /min eCW1 ([facility]) Heart rate 76 /min 76 /min eCW1 ([facility]) Body mass index (BMI) [Ratio] 28.11 kg/m2 28.11 kg/m2 eCW1 ([facility]) Body height 64 [in_i] 64 [in_i] eCW1 ([facility]) Body weight 74.3 kg 74.3 kg eCW1 ([facility]) Body weight 163.8 [lb_av] 163.8 [lb_av] eCW1 ([facility]) Diastolic blood pressure 68 mm[Hg] 68 mm[Hg] eCW1 ([facility]) Systolic blood pressure 128 mm[Hg] 128 mm[Hg] e CW1 ([facility]) Body temperature 97.2 [degF] 97.2 [degF] eCW1 ( [facility]) Respiratory rate 20 /min 20 /min eCW1 ([facility]) Heart rate 105 /min 105 /min eCW1 ([facility]) Body mass index (BMI) [Ratio] 27.94 kg/m2 27.94 kg/m2 eCW1 ([facility]) Body height 64 [in_i] 64 [in_i] eCW1 ([facility]) Body weight 73.8 kg 73.8 kg eCW1 ([facility]) Body weight 162.8 [lb_av] 162.8 [lb_av] eCW1 ([facility]) Body temperature 96.4 [degF] 96.4 [degF] MEDENT ([facility]) Diastolic blood pressure 74 mm[Hg] 74 mm[Hg] [facility] Systolic blood pressure 124 mm[Hg] 124 mm[Hg] [facility] Oxygen saturation in Arterial blood by Pulse oximetry 98 % 98 % [facility] Body mass index (BMI) [Ratio] 28.34 kg/m2 28.34 kg/m2 [facility] Body weight 72.576 kg 72.576 kg [facility] Heart rate 92 /min 92 /min [facility] Diastolic blood pressure 66 mm[Hg] 66 mm[Hg] eCW1 ([facility]) Systolic blood pressure 124 mm[Hg] 124 mm[Hg] e CW1 ([facility]) Body temperature 97.8 [degF] 97.8 [degF] eCW1 ( [facility]) Respiratory rate 18 /min 18 /min eCW1 ([facility]) Heart rate 64 /min 64 /min eCW1 ([facility]) Body mass index (BMI) [Ratio] 27.63 kg/m2 27.63 kg/m2 W1 ([facility]) Body height 64 [in_i] 64 [in_i] eCW1 ([facility]) Body weight 73.0 kg 73.0 kg eCW1 ([facility]) Body weight 161.0 [lb_av] 161.0 [lb_av] eCW1 ([facility]) Body mass index (BMI) [Ratio] 28.0 kg/m2 28.0 k g/m2 MEDENT ([facility]) Oxygen saturation in Arterial blood by Pulse oximetry 96 % 96 % MEDRICK ([facility]) Air Body weight 158.00 [lb_av] 158.00 [lb_av] ANITHA T ([facility]) Body height 63 [in_i] 63 [in_i] MEDRICK ([facility]) 5'3" Diastolic blood pressure 82 mm[Hg] 82 mm[Hg] MEDENT ([facility]) Systolic blood pressure 138 mm[Hg] 138 mm[Hg] M EDENT ([facility]) Body temperature 96.0 [degF] 96.0 [degF] MEDENT ([facility]) Body mass index (BMI) [Ratio] 27.12 kg/m2 27.12 kg/m2 eCW1 ([facility]) Body height 64 [in_i] 64 [in_i] eCW1 ([facility]) Body weight 158 [lb_av] 158 [lb_av] eCW1 ([facility]) Diastolic blood pressure 68 mm[Hg] 68 mm[Hg] eCW1 ([facility]) Systolic blood pressure 130 mm[Hg] 130 mm[Hg] e CW1 ([facility]) Body mass index (BMI) [Ratio] 27.12 kg/m2 27.12 kg/m2 eCW1 ([facility]) Body height 64 [in_i] 64 [in_i] eCW1 ([facility]) Body weight 158 [lb_av] 158 [lb_av] eCW1 ([facility]) Body temperature 97.8 [degF] 97.8 [degF] eCW1 ( [facility]) Respiratory rate 18 /min 18 /min eCW1 ([facility]) Heart rate 53 /min 53 /min eCW1 ([facility]) Body mass index (BMI) [Ratio] 26.71 kg/m2 26.71 kg/m2 eCW1 ([facility]) Body height 64 [in_i] 64 [in_i] eCW1 ([facility]) Body weight 70.6 kg 70.6 kg eCW1 ([facility]) Body weight 155.6 [lb_av] 155.6 [lb_av] eCW1 ([facility]) Body mass index (BMI) [Ratio] 28.5 kg/m2 28.5 k g/m2 MEDENT ([facility]) Body weight 161.00 [lb_av] 161.00 [lb_av] KADENEN T ([facility]) Body height 63 [in_i] 63 [in_i] [facility] 5'3" Heart rate 63 /min 63 /min [facility] ([facility]) Diastolic blood pressure 56 mm[Hg] 56 mm[Hg] [facility] ([facility]) Systolic blood pressure 102 mm[Hg] 102 mm[Hg] [facility] ([facility]) Body mass index (BMI) [Ratio] 28.3 kg/m2 28.3 k g/m2 [facility] ([facility]) Oxygen saturation in Arterial blood by Pulse oximetry 97 % 97 % [facility] ([facility]) Air Body weight 160.00 [lb_av] 160.00 [lb_av] [facility] Body height 63 [in_i] 63 [in_i] [facility] ([facility]) 5'3" Heart rate 73 /min 73 /min [facility] ([facility]) Diastolic blood pressure 60 mm[Hg] 60 mm[Hg] [facility] ([facility]) Systolic blood pressure 118 mm[Hg] 118 mm[Hg] [facility] ([facility]) Body weight 72.746 kg 72.746 kg [facility] ([facility]) Body mass index (BMI) [Ratio] 27.5 kg/m2 27.5 k g/m2 [facility] ([facility]) Body weight 160.38 [lb_av] 160.38 [lb_av] [facility] Body height 64 [in_i] 64 [in_i] [facility] ([facility]) 5'4" Body temperature 98.1 [degF] 98.1 [degF] [facility] ([facility]) Diastolic blood pressure 87 mm[Hg] 87 mm[Hg] [facility] ([facility]) Systolic blood pressure 147 mm[Hg] 147 mm[Hg] [facility] ([facility]) Body mass index (BMI) [Ratio] 28.2 kg/m2 28.2 k g/m2 [facility] ([facility]) Oxygen saturation in Arterial blood by Pulse oximetry 98 % 98 % [facility] ([facility]) RM Air Body weight 159.00 [lb_av] 159.00 [lb_av] MEDEN T ([facility]) Body height 63 [in_i] 63 [in_i] [facility] ([facility]) 5'3" Heart rate 86 /min 86 /min [facility] ([facility]) Diastolic blood pressure 84 mm[Hg] 84 mm[Hg] [facility] ([facility]) Systolic blood pressure 130 mm[Hg] 130 mm[Hg] [facility] ([facility]) Body weight 73.540 kg 73.540 kg [facility] ([facility]) Body mass index (BMI) [Ratio] 27.8 kg/m2 27.8 k g/m2 [facility] ([facility]) Body weight 162.12 [lb_av] 162.12 [lb_av] [facility] Body height 64 [in_i] 64 [in_i] [facility] ([facility]) 5'4" Diastolic blood pressure 62 mm[Hg] 62 mm[Hg] [facility] ([facility]) Systolic blood pressure 108 mm[Hg] 108 mm[Hg] [facility] ([facility]) Body mass index (BMI) [Ratio] 28.3 kg/m2 28.3 k g/m2 [facility] ([facility]) Oxygen saturation in Arterial blood by Pulse oximetry 98 % 98 % [facility] ([facility]) RM Air Body weight 160.00 [lb_av] 160.00 [lb_av] MEDEN T ([facility]) Body height 63 [in_i] 63 [in_i] [facility] ([facility]) 5'3" Heart rate 84 /min 84 /min [facility] ([facility]) Diastolic blood pressure 90 mm[Hg] 90 mm[Hg] [facility] ([facility]) Systolic blood pressure 140 mm[Hg] 140 mm[Hg] [facility] ([facility]) Body mass index (BMI) [Ratio] 29.6 kg/m2 29.6 k g/m2 [facility] ([facility]) Oxygen saturation in Arterial blood by Pulse oximetry 97 % 97 % [facility] ([facility]) Air Body weight 167.00 [lb_av] 167.00 [lb_av] MEDEN T ([facility]) Body height 63 [in_i] 63 [in_i] [facility] ([facility]) 5'3" Heart rate 66 /min 66 /min [facility] ([facility]) Diastolic blood pressure 84 mm[Hg] 84 mm[Hg] [facility] ([facility]) Systolic blood pressure 140 mm[Hg] 140 mm[Hg] [facility] ([facility]) Body weight 72.746 kg 72.746 kg [facility] ([facility]) Body mass index (BMI) [Ratio] 27.5 kg/m2 27.5 k g/m2 [facility] ([facility]) Body weight 160.38 [lb_av] 160.38 [lb_av] [facility] Body height 64 [in_i] 64 [in_i] [facility] ([facility]) 5'4" Diastolic blood pressure 83 mm[Hg] 83 mm[Hg] [facility] ([facility]) Systolic blood pressure 152 mm[Hg] 152 mm[Hg] [facility] ([facility]) Body mass index (BMI) [Ratio] 28.7 kg/m2 28.7 k g/m2 [facility] ([facility]) Oxygen saturation in Arterial blood by Pulse oximetry 98 % 98 % [facility] ([facility]) Body weight 162.00 [lb_av] 162.00 [lb_av] [facility] Body height 63 [in_i] 63 [in_i] [facility] ([facility]) 5'3" Heart rate 96 /min 96 /min [facility] ([facility]) Diastolic blood pressure 60 mm[Hg] 60 mm[Hg] [facility] ([facility]) Systolic blood pressure 126 mm[Hg] 126 mm[Hg] [facility] ([facility]) Body mass index (BMI) [Ratio] 25.6 kg/m2 25.6 k g/m2 [facility] ([facility]) Body weight 149.00 [lb_av] 149.00 [lb_av] [facility] ([facility]) Body height 64 [in_i] 64 [in_i] [facility] ([facility]) 5'4" Patient Treatment Plan of Care Planned Activity Planned Date Details Description Data Source (s) Losartan Potassium 25 MG Oral Tablet 06/05/2020 12:00:00 AM EST [facility] Famotidine 40 MG Oral Tablet 05/23/2020 12:00:00 AM EST [facility] Triamcinolone Acetonide 0.001 MG/MG Topical Ointment 12:00:00 AM EST [email or web address] (Critical access hospital) Triamcinolone Acetonide 0.001 MG/MG Topical Ointment 12:00:00 AM EST [email or web address] (Critical access hospital) Triamcinolone Acetonide 0.001 MG/MG Topical Ointment 12:00:00 AM EST [facility] (Critical [facility] hospital) Triamcinolone Acetonide 0.001 MG/MG Topical Ointment 12:00:00 AM EST [facility] (Critical access hospital) Furosemide 20 MG Oral Tablet 07/24/2019 12:00:00 AM EST [facility] Metoprolol Tartrate 25 MG Oral Tablet 07/10/2019 12:00:00 AM EST [facility] quetiapine 25 MG Oral Tablet 06/13/2019 12:00:00 AM EST [facility] Losartan Potassium 50 MG Oral Tablet [facility]
--- NOTE | 2020-08-01 | REPVR ---
PROCEDURE INFORMATION: Exam: CT Cervical Spine Without Contrast Exam date and time: 07/31/2020 11:42 PM Age: 75 years old Clinical indication: Neck pain; Additional info: Unresponsive TECHNIQUE: Imaging protocol: Computed tomography images of the cervical spine without contrast. Radiation optimization: All CT scans at this facility use at least one of these dose optimization techniques: automated exposure control; mA and/or kV adjustment per patient size (includes targeted exams where dose is matched to clinical indication); or iterative reconstruction. COMPARISON: 1. CT Spine,cervical w/o contrast 2020-07-20 12:33 2. US Duplex,carotid (complete) 2019-09-30 12:17 FINDINGS: Limitations: Motion artifact does moderately limit the sensitivity of this examination. Limited by patient's body habitus. Bones/joints: Mild degenerative cervical alignment abnormalities. Discs/Spinal canal/Neural foramina: Diffuse degenerative disc space loss with degenerative disc osteophyte complexes, facet arthropathy, and ligamentum flavum thickening causes up to moderate spinal and foraminal stenosis greatest at C4-C6. Lungs: Scarring or lesion in the right upper lung apex measuring 2.2 cm. Soft tissues: Unremarkable. IMPRESSION: Scarring or lesion in the right upper lung apex measuring 2.2 cm. Correlate with priors or recommend follow-up. COMMENTS: As per Fleischner Society guidelines for follow-up and management of pulmonary nodules: Recommend initial follow-up chest CT at 3, 9 and 24 months. Consider contrast enhanced chest CT, PET scan and/or biopsy as clinically warranted. Electronically signed by: Meliton Spangler On 08/01/2020 00:00:09 AM
--- NOTE | 2020-08-01 00:01 | REPVR ---
PROCEDURE INFORMATION: Exam: CT Head Without Contrast Exam date and time: 07/31/2020 11:42 PM Age: 75 years old Clinical indication: Altered mental status/memory loss; Other: Unreswponsive; Additional info: Unresponsive TECHNIQUE: Imaging protocol: Computed tomography of the head without contrast. Radiation optimization: All CT scans at this facility use at least one of these dose optimization techniques: automated exposure control; mA and/or kV adjustment per patient size (includes targeted exams where dose is matched to clinical indication); or iterative reconstruction. COMPARISON: 1. CT Head without contrast 2020-07-24 13:[address] Head without contrast 2020-07-20 12:33 FINDINGS: Brain: Chronic left ubaldo cerebellar large infarct. Scattered chronic appearing lacunae in the deep espinosa structures and/or periventricular white matter. 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 Cerebral ventricles: No ventriculomegaly. Bones/joints: Unremarkable. No acute fracture. Paranasal sinuses: Visualized sinuses are unremarkable. No fluid levels. Mastoid air cells: Visualized mastoid air cells are well aerated. Soft tissues: Unremarkable. IMPRESSION: No acute abnormality or significant change. Electronically signed by: Meliton Spangler On 08/01/2020 00:01:05 AM
--- OUTSIDE RECORDS SUMMARY | 2020-08-01 00:11 | CCD ---
Author Author [facility] Address Unknown Phone Unavailable Care Team Providers Care Postal Transportation Clerk Name Role Phone Koffi, Kaylene DO Unavailable [...] Unavailable Koffi, Kaylene DO Unavailable Unavailable Koffi, Kaylnee DO Unavailable Unavailable Koffi, Kaylene DO Unavailable [...] DO Unavailable Unavailable Kocan, J Maria Elena HEALTHCARE RECEPTIONIST Unavailable Unavailable Kocan, J Maria Elena HEALTHCARE RECEPTIONIST Unavailable Unavailable Kocan, J Maria Elena HEALTHCARE RECEPTIONIST Unavailable Unavailable Kocan, J Maria Elena HEALTHCARE RECEPTIONIST Unavailable Unavailable Kocan, J Maria Elena HEALTHCARE RECEPTIONIST Unavailable Unavailable Kocan, J Maria Elena HEALTHCARE RECEPTIONIST Unavailable Unavailable Kocan, J Maria Elena HEALTHCARE RECEPTIONIST Unavailable Unavailable Kocan, J Maria Elena HEALTHCARE RECEPTIONIST Unavailable Unavailable Kocan, J Maria Elena HEALTHCARE RECEPTIONIST Unavailable Unavailable Kocan, J Maria Elena HEALTHCARE RECEPTIONIST Unavailable Unavailable Kocan, J Maria Elena HEALTHCARE RECEPTIONIST Unavailable Unavailable Kocan, J Maria Elena HEALTHCARE RECEPTIONIST Unavailable Unavailable Kocan, J Maria Elena HEALTHCARE RECEPTIONIST Unavailable Unavailable Koffi, Kaylene DO Unavailable Unavailable [...] Unavailable Unavailable Koffi, Kaylene DO Unavailable Unavailable Okffi, Kaylene DO Unavailable Unavailable Koffi, Kaylene DO [...] Unavailable Unavailable RODRI, JAYSON CURRIE Unavailable Unavailable Crzuito Tan MD Unavailable Unavailable Cruzito Tan MD [...] is protected by Article 27-F of the [facility] Public Health law. If you continue you may have access to information: Regarding HIV / AIDS; Provided by facilities licensed or operated by the [facility] Office of Mental Health; or Provided by the [facility] Office for People With Developmental Disabilities. If such information is present, then the following [facility] mandated warning applies: This information has [...] law may result in a fine or custodial sentence or both. A general authorization for the release of medical or other information is NOT sufficient authorization for further disc losure. Family History Family Member Name Family Member Gender Family Member Status Date o f Status Description Data Source(s) Unknown Unknown Problem MEDENT ([facility] ) Unknown Unknown Problem MEDENT ([facility]) Unknown Unknown Problem MEDENT ([facility]) Unknown Unknown Problem MEDENT ([facility]) Unknown Unknown Problem MEDENT ([facility] ) Encounters Encounter Providers Location Date Indications Data Source(s ) Unknown [address] [place] [phone] 07/28/2020 12:00:00 AM EST eCW1 ([facility]) Office Visit, Est Pt., Level 4 [facility] [place] [address] 07/13/2020 12:00:00 AM EST eCW1 ([facility]) Office Visit Attender: Cruzito Tan MD Main office - [place] 07/01/2020 01:45:00 PM EST MEDENT ([facility] ) Office Visit, Est Pt., Level 5 [address] [place] [address] 06/24/2020 12:00:00 AM EST eCW1 ([facility]) Outpatient Attender: FIGUEROA VAZ Physical Therapy 06/18/2020 0 9:45:00 AM EST MEDENT ([facility] ) Outpatient Attender: Maria Elena CORNELIUSP.ISRRAEL-SJP.ISRRAEL 2019 12:00:00 AM EST - 06/12/2020 02:38:36 PM EST [facility] Unknown [address] [facility] [address] 06/09/2020 12:00:00 AM EST eCW1 ([facility] [place] [address] [facility] [address] 06/08/2020 12:00:00 AM EST eCW1 ([facility] Office Visit, Est Pt., Level 5 [address] [place] [address] 06/04/2020 12:00:00 AM EST eCW1 ([facility]) Outpatient Attender: Kaylene Desir 05/26 01:00:00 PM EST MEDENT ([facility] ) [place] [address] [facility] [address] 05/21/2020 12:00:00 AM EST eCW1 ([facility]) Outpatient [address] [facility] [place] [address] 05/19/2020 12:00:00 AM EST eCW1 ([facility]) Unknown [address] [facility] [address] 05/12/2020 12:00:00 AM EST eCW1 ([facility]) Outpatient [address] [facility] [place] [address] 05/05/2020 12:00:00 AM EST eCW1 ([facility]) Outpatient Attender: FIGUEROA VAZ Physical Therapy 04/28/2020 0 3:15:00 PM EDT MEDENT ([facility]) Office Visit Attender: Cruzito Tan MD Main office - [place] 01/28/2020 02:00:00 PM EDT MEDENT ([facility]) Outpatient [address] [facility] [address] 01/21/2020 12:00:00 AM EDT eCW1 ([facility]) Outpatient Referrer: Kaylene Rain DO 12/23/2019 07:50:00 AM EDT [facility] Outpatient Attender: Kaylene Desir 12/18 02:00:00 PM EDT MEDENT ([facility] ) Outpatient Attender: JAYSON CRUZ 0 12:00:00 AM EDT - 10/24/2019 09:09:45 AM EDT [facility] Outpatient Attender: Kaylene Koffi HERNÁNDEZ Gwyn Parrahema 10/21 02:45:00 PM EDT MEDENT ([facility] ) Outpatient Referrer: Kaylene Rain DO 10/10/2019 01:59:00 PM EDT [facility] Outpatient Referrer: Kaylene Rain DO 10/02/2019 03:18:00 PM EDT [facility] Outpatient Referrer: Kaylene Rain DO 10/02/2019 10:31:00 AM EDT [facility] Outpatient Attender: Kaylene Baronelarry HERNÁNDEZ Gwyn Parrahema 09/22 02:45:00 PM EDT MEDENT ([facility] ) Outpatient Attender: Radha Clark RPA Angelica/Planada/Bryson/R eindl 09/17/2019 11:00:00 AM EDT MEDENT ([facility] Outpatient Attender: Kaylene Koffi HERNÁNDEZ Gwyn Underwoodeliot 09/05 01:00:00 PM EST MEDENT ([facility] ) Outpatient Referrer: JAYSON CRUZ 08/07/2019 12:00:00 AM EST [facility] Outpatient Attender: Kaylene Koffi HERNÁNDEZ Gwyn Underwoodeliot 07/23 12:30:00 PM EST MEDENT ([facility] ) Outpatient Attender: JAYSON MACE MDConsultant: JAYSON Avitia JP.WAT-SJP 07/10/2019 12:22:38 PM EST - 07/10/2019 02:02:[address] [facility] Outpatient Referrer: Kaylene Rain DO 07/08/2019 02:11:00 PM EST [facility] Outpatient Attender: Radha Clark RPA Angelica/Planada/Bryson/R eindl 06/19/2019 10:15:00 AM EST MEDENT ([facility] Outpatient Attender: Kaylene Desir 06/17 01:30:00 PM EST MEDENT ([facility] ) Outpatient Referrer: Kaylene Rain DO 06/14/2019 02:15:00 PM EST [facility] Outpatient Attender: Cruzito Tan MD Main office - [place] 06/12/2019 12:30:00 PM EST MEDENT ([facility]) Immunizations Vaccine Date Status Description Data Source(s) INFLUENZA VIRUS VACCINE QUADRIVAL SPLIT 2019-(65 YR UP)/PF 04/14/2020 12:00:00 AM EDT completed [facility] Medications Medication Brand Name Start Date Product Form Dose Route Admi nistrative Instructions Pharmacy Instructions Status Indications Reaction Description Data Source(s) Acetaminophen 325 MG / Hydrocodone Bitartrate 5 MG Ora l Tablet Hydrocodone-Acetaminophen 07/29/2020 12:00:00 AM EST active MEDENT ([facility]) tizanidine 4 MG Oral Capsule Tizanidine HCL 07/29/2020 12:00:00 AM EST ORAL active MEDENT ([facility]) 4 mg 07/29/2020 12:00:00 AM [...] 07/23/2020 12:00:00 AM EST ORAL completed MEDENT ([facility]) 35 mg 07/22/2020 12:00:00 [...] A DAY FOR 10 DAYS SOLD: 07/07/2020 [facility] 25 mg 07/02/2020 12:00:00 AM EST tablet 90 TAKE ONE TABLET BY MOUTH EVERY DAY AT BEDTIME TAKE ONE TABLET BY MOUTH EVERY DAY AT BEDTIME SOLD: 07/02/2020 [facility] 75 mg 07/02/2020 12:00:00 AM EST tablet 90 TAKE ONE TABLET BY MOUTH EVERY DAY TAKE ONE TABLET BY MOUTH EVERY DAY SOLD: 07/02/2020 [facility] 50 mg 06/30/2020 12:00:00 AM EST tablet 10 TAKE ONE TABLET BY MOUTH TWICE A DAY FOR PAIN MAXIMUM DAILY DOSE = 2 TABLETS TAKE ONE TABLET BY MOUTH TWICE A DAY FOR PAIN MAXIMUM DAILY DOSE = 2 TABLETS SOLD: 06/30/2020 [facility] 1 mg 06/22/2020 12:00:00 AM EST tablet 60 TAKE 2 TABLETS BY MOUTH AT NIGHT BEFORE BEDTIME TAKE 2 TABLETS BY MOUTH AT NIGHT BEFORE BEDTIME SOLD: 2019 [facility] 50 mg 06/17/2020 12:00:00 AM EST tablet 10 TAKE ONE TABLET BY MOUTH TWICE A DAY FOR PAIN MAXIMUM DAILY DOSE = 2 TABLETS TAKE ONE TABLET BY MOUTH TWICE A DAY FOR PAIN MAXIMUM DAILY DOSE = 2 TABLETS SOLD: 06/17/2020 [facility] Alprazolam 0.5 MG Oral Tablet ALPRAZOLAM 06/14/2020 12:00:00 AM EST ta blet 30 TAKE ONE TABLET BY MOUTH AT BEDTIME NEEDED MAXIMUM DAILY DOSE = 1 TABLETS TAKE ONE TABLET BY MOUTH AT BEDTIME NEEDED MAXIMUM DAILY DOSE = 1 TABLETS SOLD: 06/14/2020 [facility] Alprazolam 0.5 MG Oral Tablet ALPRAZOLAM 06/10/2020 12:00:00 AM EST ta blet 30 TAKE ONE TABLET BY MOUTH AT BEDTIME NEEDED MAXIMUM DAILY DOSE = 1 TABLETS TAKE ONE TABLET BY MOUTH AT BEDTIME NEEDED MAXIMUM DAILY DOSE = 1 TABLETS SOLD: 06/11/2020 [facility] 50 mg 06/08/2020 12:00:00 AM EST [...] active Take 25 mg by mouth daily [facility] 50 mg 06/02/2020 12:00:00 AM EST [...] 12:00:00 AM EST ORAL active M ORTEGA ([facility]) 25 mg 05/25/2020 12:00:00 AM EST [...] active Take 40 mg by mouth daily [facility] 50 mg 05/20/2020 12:00:00 AM EST [...] active Triamcinolone Aceton zita 0.1 % eCW1 ([facility]) Triamcinolone Acetonide 0.001 MG/MG Topi regina Ointment Triamcinolone Acetonide 0.1 % Triamcinolone Acetonide 0.1 % 05/19/2020 12:00:00 AM EST 1.0 {application} active Triamcinolone Aceton zita 0.1 % eCW1 ([facility]) Triamcinolone Acetonide 0.001 MG/MG Topi regina Ointment Triamcinolone Acetonide 0.1 % Triamcinolone Acetonide 0.1 % 05/19/2020 12:00:00 AM EST 1.0 {application} active Triamcinolone Aceton zita 0.1 % eCW1 ([facility]) Triamcinolone Acetonide 0.001 MG/MG Topi regina Ointment Triamcinolone Acetonide 0.1 % Triamcinolone Acetonide 0.1 % 05/19/2020 12:00:00 AM EST 1.0 {application} active Triamcinolone Aceton zita 0.1 % eCW1 ([facility]) Triamcinolone Acetonide 0.001 MG/MG Topi regina Ointment Triamcinolone Acetonide 0.1 % Triamcinolone Acetonide 0.1 % 05/19/2020 12:00:00 AM EST 1.0 {application} active Triamcinolone Aceton zita 0.1 % eCW1 ([facility]) 1 mg 05/19/2020 12:00:00 AM [...] active Triamcinolone Aceton zita 0.1 % eCW1 ([facility]) Triamcinolone Acetonide 0.001 MG/MG Topi regina Ointment Triamcinolone Acetonide 0.1 % Triamcinolone Acetonide 0.1 % 05/19/2020 12:00:00 AM EST 1.0 {application} active Triamcinolone Aceton zita 0.1 % eCW1 ([facility]) Triamcinolone Acetonide 0.001 MG/MG Topi regina Ointment Triamcinolone Acetonide 0.1 % Triamcinolone Acetonide 0.1 % 05/19/2020 12:00:00 AM EST 1.0 {application} active Triamcinolone Aceton zita 0.1 % eCW1 ([facility]) Triamcinolone Acetonide 0.001 MG/MG Topi regina Ointment Triamcinolone Acetonide 0.1 % Triamcinolone Acetonide 0.1 % 05/12/2020 12:00:00 AM EST 1.0 {application} active Triamcinolone Aceton zita 0.1 % eCW1 ([facility]) Triamcinolone Acetonide 0.001 MG/MG Topi regina Ointment Triamcinolone Acetonide 0.1 % Triamcinolone Acetonide 0.1 % 05/12/2020 12:00:00 AM EST 1.0 {application} active Triamcinolone Aceton zita 0.1 % eCW1 ([facility]) 0.1 % 05/12/2020 12:00:00 AM [...] active Triamcinolone Aceton zita 0.1 % eCW1 ([facility]) Triamcinolone Acetonide 0.001 MG/MG Topi regina Ointment Triamcinolone Acetonide 0.1 % Triamcinolone Acetonide 0.1 % 05/12/2020 12:00:00 AM EST 1.0 {application} active Triamcinolone Aceton zita 0.1 % eCW1 ([facility]) Triamcinolone Acetonide 0.001 MG/MG Topi regina Ointment Triamcinolone Acetonide 0.1 % Triamcinolone Acetonide 0.1 % 05/12/2020 12:00:00 AM EST 1.0 {application} active Triamcinolone Aceton zita 0.1 % eCW1 ([facility]) Triamcinolone Acetonide 0.001 MG/MG Topi regina Ointment Triamcinolone Acetonide 0.1 % Triamcinolone Acetonide 0.1 % 05/12/2020 12:00:00 AM EST 1.0 {application} active Triamcinolone Aceton zita 0.1 % eCW1 ([facility]) Triamcinolone Acetonide 0.001 MG/MG Topi regina Ointment Triamcinolone Acetonide 0.1 % Triamcinolone Acetonide 0.1 % 05/12/2020 12:00:00 AM EST 1.0 {application} active Triamcinolone Aceton zita 0.1 % eCW1 ([facility]) 50 mg 05/12/2020 12:00:00 AM [...] active Triamcinolone Aceton zita 0.1 % eCW1 ([facility]) Triamcinolone Acetonide 0.001 MG/MG Topi regina Ointment Triamcinolone Acetonide 0.1 % Triamcinolone Acetonide 0.1 % 05/12/2020 12:00:00 AM EST 1.0 {application} active Triamcinolone Aceton zita 0.1 % eCW1 ([facility]) Triamcinolone Acetonide 0.001 MG/MG Topi regina Ointment Triamcinolone Acetonide 0.1 % Triamcinolone Acetonide 0.1 % 05/12/2020 12:00:00 AM EST 1.0 {application} active Triamcinolone Aceton zita 0.1 % eCW1 ([facility]) 25 mg 05/11/2020 12:00:00 AM [...] 12:00:00 AM EDT ORAL active [facility] ([facility] ) 300-60 mg 04/07/2020 [...] 12/02/2019 12:00:00 AM EDT ORAL active MEDENT ([facility]) Acetaminophen 325 MG [...] completed MEDENT ([facility]) tramadol hydrochloride 50 MG Oral [...] TABLET BY MOUTH ONCE DAILY SOLD: 12/15/2019 [facility] Losartan Potassium 25 MG Oral Tablet Losartan Potassium 12:00:00 AM EDT active MEDENT ([facility]) Prednisone 10 MG Oral Tablet Prednisone 10/23/2019 12:00:00 AM EDT completed MEDENT ([facility]) Losartan Potassium 25 MG Oral Tablet [...] Sulfate 09/23/2019 12:00:00 AM EDT active MEDENT ([facility]) atorvastatin 40 MG Oral Tablet Atorvastatin Calcium 09/23/2019 1 2:00:00 AM EDT ORAL active MEDENT ( [facility]) Alprazolam 0.5 MG Oral Tablet ALPRAZOLAM 09/18/2019 12:00:00 AM EDT ta blet 30 TAKE ONE TABLET BY MOUTH AT BEDTIME NEEDED MAXIMUM DAILY DOSE = 1 TAKE ONE TABLET BY MOUTH AT BEDTIME NEEDED MAXIMUM DAILY DOSE = 1 SOLD: 09/18/2019 [facility] Amlodipine 5 MG Oral Tablet Amlodipine Besylate 09/17/2019 12:00:00 A M EDT ORAL active MEDENT ([facility]) 5 mg 09/17/2019 12:00:00 [...] e Take 20 mg by mouth daily [facility] 20 mg 07/24/2019 12:00:00 AM EST [...] Famotidine 07/23/2019 12:00:00 AM EST active [facility] ([facility]) Furosemide 20 MG Oral Tablet Furosemide 07/23/2019 12:00:00 AM EST ORAL completed [facility] ([facility]) 40 mg 07/23/2019 12:00:00 AM [...] by mouth 2 (two) times a day [facility] Alprazolam 0.5 MG Oral Tablet ALPRAZOLAM [...] Oral active Take 25 mg by mouth [facility] 300 mg 06/13/2019 12:00:00 AM EST [...] 12:00:00 AM EST ORAL active MEDENT ([facility]) 80 mg 06/11/2019 [...] by mouth 2 (two) times a day [facility] Insurance Providers Payer name Policy type / Coverage type Policy ID Covered green party ID Covered green party's relationship to thompson Policy Thompson Plan Information MEDICARE [id number] SP [id number] MEDICARE C [id number] S [id number] [id number] AETNA MEDICARE [id number] SP [id number] [facility] [id number] SP [id number] [place] [id number] SP [id number] MEDICARE [id number] SP [id number] Y64 MEDICAID [id number] MEDICARE [id number] MEDICARE [id number] Jewell [id number] Y64 HUMANA GOLD O [id number] S [id number] MEDICAID M [id number] HUMANA GOLD [id number] SP [id number] EMED[place] [id number] SP [id number] MEDICAID [id number] SP [id number] MEDICARE [id number] Jewell [id number] Y64 MEDICARE [id number] SP [id number] MEDICAID [id number] SP [id number] 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 [id number] Self [id number] Medicaid Medigap Part B [id number] Self [id number] Medicare Natl Govt Servic Medicare Primary [id number] Self [id number] MEDICAID [id number] SP [id number] MEDICAID [id number] SP [id number] 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 [id number] Self [id number] Medicaid Medigap Part B [id number] Self [id number] 63C Medicare [place] Govt Servic Medicare Primary [id number] Self [id number] 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 [id number] Self [id number] Medicaid Medigap Part B [id number] Self [id number] 63C Medicare [place] Govt Servic Medicare Primary [id number] Self [id number] Medicaid Medigap Part B [id number] Self [id number] 63C 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 [id number] Self [id number] Medicare [place] Govt Servic Medicare Primary [id number] Self [id number] Medicaid Medigap Part B [id number] Self [id number] 63C 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 [id number] Self [id number] Medicare Nat[place] Govt Servic Medicare Primary [id number] Self [id number] Medicaid Medigap Part B [id number] Self [id number] 63C 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 [id number] Self [id number] Medicare [place] Govt Servic Medicare Primary [id number] Self [id number] Medicaid Medigap Part B [id number] Self [id number] 63C 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 [id number] Self [id number] Medicare Natl Govt Servic Medicare Primary [id number] Self [id number] MEDICAID UNAVAILABLE UNAVAILA BLE Medicare [facility] Medicare Primary [id number] Self [id number] Medicaid Medigap Part B [id number] Self [id number] 63C 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 [id number] Self [id number] Medicare Natl Govt Servic Medicare Primary [id number] Self [id number] MEDICAID [id number] Jewell [id number] MEDICARE [id number] Jewell [id number] A Medicaid Medigap Part B [id number] Self [id number] 63C 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 [id number] Self [id number] Medicare [place] Govt Servic Medicare Primary [id number] Self [id number] Medicaid Medigap Part B [id number] Self [id number] 63C 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 [id number] Self [id number] Medicare Nat[place] Govt Servic Medicare Primary [id number] Self [id number] Medicaid Medigap Part B [id number] Self [id number] 63C 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 [id number] Self [id number] Medicare [place] Govt Servic Medicare Primary [id number] Self [id number] MEDICARE PI PI Medicaid Medigap Part B [id number] Self [id number] 63C 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 [id number] Self [id number] Medicare [place] Govt Servic Medicare Primary [id number] Self [id number] Medicaid Medigap Part B [id number] Self [id number] 63C 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 [id number] Self [id number] Medicare [place] Govt Servic Medicare Primary [id number] Self [id number] Medicaid Medigap Part B [id number] Self [id number] 63C 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 [id number] Self [id number] Medicare Natl Govt Servic Medicare Primary [id number] Self [id number] MEDICARE C [id number] S [id number] A Medicaid Medigap Part B [id number] Self [id number] 63C 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 [id number] Self [id number] Medicare [place] Govt Servic Medicare Primary [id number] Self [id number] Medicaid Medigap Part B [id number] Self [id number] 63C 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 [id number] Self [id number] Medicare [place] Govt Servic Medicare Primary [id number] Self [id number] MEDICAID [id number] SP [id number] Medicaid Medigap Part B [id number] Self [id number] 63C 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 [id number] Self [id number] Medicare [place] Govt Servic Medicare Primary [id number] Self [id number] Medicaid Medigap Part B [id number] Self [id number] 63C 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 [id number] Self [id number] Medicare [place] Govt Servic Medicare Primary [id number] Self [id number] MEDICARE [id number] SP [id number] [place] Part B Self Medicare [place] Gov't Servi Medicare Primary Self Medicaid Medigap Part B 1 1 Self 1 1 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 Self Medicare [place] Self [place] B [place] Self [place] Ins Fund [place] Workers 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 Self OTHER WORKERS COMPENSATION [id number] SP [id number] A Problems, Conditions, and Diagnoses Code Display Name Description Problem Type Effective Dates Data Source(s) I25.5 Ischemic cardiomyopathy Ischemic cardiomyopathy 045488 2020 12:00:00 AM EST [facility] M47.816 [id number] Lumbar spondylosis Problem 06/04/2020 12:00: 00 AM EST eCW1 ([facility]) I77.6 71472017 Vasculitis Problem 06/04/2020 12:00:00 AM ES T eCW1 ([facility]) M79.7 [id number] Fibromyalgia Problem 01/21/2020 12:00:00 AM EDT eCW1 ([facility]) 23146643 Neck pain Neck pain Problem 11/06/2019 12:00:00 AM ED T YOHANA ([facility]) [id number] 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 Problem 11/06/2019 12:00:00 AM EDT MEDENT ([facility]) [id number] Abnormal gait Abnormal gait Problem 10/30/2019 12:00:00 AM EDT MEDENT ([facility]) 710505949 Nervous system symptoms Nervous system symptoms Proble m 10/30/2019 12:00:00 AM EDT MEDENT ([facility]) [id number] CVA - cerebrovascular accident due to ce rebral artery occlusion CVA - cerebrovascular accident due to cerebral artery occlusion Problem 06/18/2019 12:00:00 AM EST MEDENT ([facility]) [id number] Essential hypertension Essential hypertension Problem 06/14/2019 12:00:00 AM EST MEDENT ([facility]) I10 Essential (primary) hypertension Essential (primary) h ypertension Diagnosis 06/12/2020 01:26:55 PM [facility] E78.5 Hyperlipidemia, unspecified Hyperlipidemia, unspecifie d Diagnosis 06/12/2020 01:26:55 PM EST [facility] N18.9 Chronic kidney disease, unspecified Chronic kidn ey disease, unspecified Diagnosis 06/12/2020 01:26:55 PM EST [facility] Z72.0 Tobacco use Tobacco use Diagnosis 06/12/2020 01:26:55 PM [facility] I25.83 Coronary atherosclerosis due to lipid ri ch plaque Coronary atherosclerosis due to lipid ri Diagnosis 06/12/2020 01:26:55 PM [facility] I25.10 Atherosclerotic heart diseas 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 Atherosclerotic heart disease of nez perce Diagnosis 06/12/2020 01:26:55 PM EST [facility] F41.9 Anxiety disorder, unspecified Anxiety disorder, unspec ified Diagnosis 10/23/2019 12:50:14 PM EDT [facility] D64.9 Anemia, unspecified Anemia, unspecified Diagnosis 0 10/23/2019 12:50:14 PM EDT [facility] Z86.73 Personal history of transien t ischemic attack (TIA), and cerebral infarction without residual deficits Personal history of transient ischemic a Diagnosis 10/23/2019 12:50:14 PM EDT [facility] M79.606 Pain in leg, unspecified Pain in leg, unspecified Diag nosis 07/10/2019 12:22:38 PM EST [facility] Surgeries/Procedures Procedure Description Date Indications Data Source(s) X-Ray Spine Thoracolumbar Ap & Lateral 2 Views 021 12:00:00 AM EST MEDENT ([facility] PC) RADEX SPINE LUMBOSACRAL 2/3 VIEWS 06/18/2020 12:00:00 AM EST MEDENT ([facility] ) Needle electromyography, each extremity, with related paraspinal areas, when performed, done with nerve conduction, amplitude and latency/velocity study; complete, five or more muscles studied, innervated by three or more nerves or four or more spinal levels (list separately in addition to the code for primary procedure). 06/15/2020 12:00:00 AM EST MEDEN T ([facility]) Needle electromyography, each extremity, with related paraspinal areas, when performed, done with nerve conduction, amplitude and latency/velocity study; complete, five or more muscles studied, innervated by three or more nerves or four or more spinal levels (list separately in addition to the code for primary procedure). 06/15/2020 12:00:00 AM EST MEDEN T ([facility]) Nerve Conduction 11-12 Studies 06/15/2020 12:00:00 AM EST MEDENT ([facility], ) ECG ROUTINE ECG W/LEAST 12 LDS W/I&R POCT AMB EKG Routine 06/12/2020 5:31 PM EST Coronary artery disease due to lipid rich plaque Essential hypertension 06/12/2020 10:31:00 PM EST Essential hypertensionCoronary artery disease due to lipid rich plaque [facility] Essential hypertension Coronary artery disease due to lipid tristian h plaque HEPATIC FUNCTION PANEL HEPATIC FUNCTION PANEL Routine 05/26/2020 05/26/2020 12:00:00 AM EST [facility] BASIC METABOLIC PANEL CALCIUM TOTAL BASIC METABOLIC PANEL Routine 05/26/2020 05/26/2020 12:00:00 AM EST [facility] BLOOD COUNT COMPLETE AUTO&AUTO DIFRNTL WBC COUNT CBC AND DIFFER ENTIAL Routine 04/21/2020 04/21/2020 12:00:00 AM EDT [facility] Diabetic Retinal Eye Exam 02/25/2020 12:00:00 AM EDT MEDENT ([facility]) RADEX SPINE LUMBOSACRAL 2/3 VIEWS 01/28/2020 [...] EDT MEDENT ([facility] ) RADEX HAND MINIMUM 3 VIEWS 08/23/2019 12:00:00 AM EST MEDENT ([facility] ) RADEX HAND MINIMUM 3 VIEWS 07/25/2019 12:00:00 AM EST MEDENT ([facility] ) RADEX HAND MINIMUM 3 VIEWS 07/11/2019 12:00:00 AM EST MEDENT ([facility] ) APPLICATION CAST ELBOW FINGER SHORT ARM 07/04/2019 12: 00:00 AM EST MEDENT ([facility]) CLTX METACARPAL FX W/O MANIPULATION EACH BONE 06/13/20 12:00:00 AM EST MEDENT ([facility] ) Results ID Date Data Source [id number] 07/24/2020 02:16:00 PM EST MEDENT ([facility]) Name Value Range Interpretation Code Description Data Amber rce(s) Supporting Document(s) Laboratory test finding (navigational concept) 0.00 ng/mL 0.00-0.08 [facility] ID Date Data Source [id number] 07/24/2020 02:13:00 PM EST MEDENT ([facility]) Name Value Range Interpretation Code Description Data Amber rce(s) Supporting Document(s) Laboratory test finding (navigational concept) 31.0 % 38.0-51.0 [facility] Laboratory test finding (navigational concept) 138 meq/L 136-145 MED[facility] ([facility]) Laboratory test finding (navigational concept) 97 mg/dL 70-105 MED[facility] ([facility]) Laboratory test finding (navigational concept) 4.4 mg/dL 4.5-5.3 [facility] ([facility]) Laboratory test finding (navigational concept) 4.0 meq/L 3.5-5.1 [facility] ([facility]) Laboratory test finding (navigational concept) 26.0 MM/L 23.0-27.0 [facility] ([facility]) Laboratory test finding (navigational concept) 11 mg/dL 8-26 MED[facility] ([facility]) Laboratory test finding (navigational concept) 105 meq/L 98-109 MED[facility] ([facility]) Laboratory test finding (navigational concept) 1.3 mg/dL 0.6-1.3 [facility] ID Date Data Source [id number] 07/24/2020 02:12:00 PM EST MEDENT ([facility]) Name Value Range Interpretation Code Description Data Amber rce(s) Supporting Document(s) Lactate [Mass/volume] in Serum or Plasma 1.3 mmol/L 0.4-2.0 [facility] <content>note:<nlbl:demographic_changed> </content>
<content>Y/N query for Sepsis Lactate Rule: Y</content>
<content></content> ID Date Data Source [id number] 07/24/2020 02:12:00 PM EST MEDENT ([facility]) Name Value Range Interpretation Code Description Data Amber rce(s) Supporting Document(s) White Blood Count 11.8 10 4.0-10.0 MEDENT ([facility]) Hemoglobin 9.4 g/dL 12.0-15.5 [facility] Red Blood Count 3.46 10 4.00-5.40 MEDENT ([facility]) Hematocrit 30.5 % 36.0-47.0 [facility] Mean Corpuscular Hemoglobin 27.2 pg 27.0-33.0 ME DENT ([facility]) Mean Corpuscular Volume 88.2 fl 80.0-96.0 MEDENT ([facility]) Mean Corpuscular HGB Conc 30.8 g/dL 32.0-36.5 MEDE NT ([facility]) Platelet Count, Automated 445 10 150-450 MEDE NT ([facility]) Red Cell Distribution Width 15.6 % 11.5-14.5 ME DENT ([facility]) Neutrophils % 71.4 % 36.0-66.0 [facility] Eos % 4.4 % 0.0-3.0 [facility]) [place] % 7.9 % 0.0-5.0 [facility] Lymph % 15.3 % 24.0-44.0 [facility]) Immature Granulocyte % 0.5 % 0-3.0 MED[facility] ([facility]) Nucleated Red Blood Cell % 0.0 % 0-0 MED ENT ([facility]) Baso % 0.5 % 0.0-1.0 [facility] Lymph # 1.8 10 1.5-5.0 [facility]) Neutrophils # 8.4 10 1.5-8.5 [facility]) [place] # 0.9 10 0.0-0.8 [facility] Eos # 0.5 10 0.0-0.5 [facility] Baso # 0.1 10 0.0-0.2 [facility] ID Date Data Source [id number] 07/24/2020 02:11:00 PM EST MED[facility] ([facility]) Name Value Range Interpretation Code Description Data Amber rce(s) Supporting Document(s) Lipoprotein lipase [Enzymatic activity/volume] in Serum or Plasm a 48 U/L 73-393 MED[facility] ([facility]) <content>note:<nlbl:demographic_changed> </content>
<content></content> ID Date Data Source [id number] 07/24/2020 02:11:00 PM EST MED[facility] ([facility]) Name Value Range Interpretation Code Description Data Amber rce(s) Supporting Document(s) Ast/Sgot 9 U/L 7-37 MED[facility] ([facility]) Alt/SGPT 8 U/L 12-78 MED[facility] ([facility]) Alkaline Phosphatase 93 U/L 45-117 MED[facility] ([facility]) Bilirubin,Total 0.3 mg/dL 0.2-1.0 MEDENT ([facility]) Total Protein 6.8 GM/DL 6.4-8.2 MED[facility] ([facility]) Albumin 2.8 GM/DL 3.2-5.2 MED[facility] ([facility]) Bilirubin,Direct 0.1 mg/dL 0.0-0.2 MED[facility] ([facility]) Albumin/Globulin Ratio 0.7 1.2-2.2 [facility] ([facility]) ID Date Data Source [id number] 07/24/2020 02:11:00 PM EST MED[facility] ([facility]) Name Value Range Interpretation Code Description Data Amber rce(s) Supporting Document(s) aPTT in Blood by Coagulation assay 31.0 s 24.2-38.5 [facility] ([facility]) ID Date Data Source [id number] 07/24/2020 02:11:00 PM EST MED[facility] ([facility]) Name Value Range Interpretation Code Description Data Amber rce(s) Supporting Document(s) Prothrombin Time 13.1 s 12.5-14.3 [facility] ([facility]) Inr 0.97 [facility] THERAPUTIC HUMAN INR VALUES INDICATIONS NORMAL RANGES PROPHYLAXIS/TREATMENT OF: VENOUS THROMBOSIS 2.0-3.0 PULMONARY EMBOLISM 2.0-3.0 PREVENTION OF SYSTEMIC EMBOLISM FROM: TISSUE HEART VALVES 2.0-3.0 ACUTE MYOCARDIAL INFARCTION 2.0-3.0 VALVULAR HEART DISEASE 2.0-3.0 ATRIAL FIBRILLATION 2.0-3.0 MECHANICAL VALVES(HIGH RISK) 2.5-3.5 RECURRENT MYOCARDIAL INFARCTION 2.5-3.5 ID Date Data Source [id number] 07/24/2020 02:00:00 PM EST MED[facility] ([facility]) Name Value Range Interpretation Code Description Data Amber rce(s) Supporting Document(s) Bedside Glucose 97 mg/dL 83-110 MED[facility] ([facility]) ID Date Data Source [id number] 07/20/2020 03:24:00 PM EST MED[facility] ([facility]) Name Value Range Interpretation Code Description Data Amber rce(s) Supporting Document(s) Influenza A Amplification Laboratory test result MED[facility] ([facility]) Negative results do not preclude influen za or RSV virus infection and should not be used as the sole basis for treatment or other patient management decisions. Influenza B Amplification Laboratory test result [facility] ([facility]) Negative results do not preclude influen za or RSV virus infection and should not be used as the sole basis for treatment or other patient management decisions. Laboratory test finding (navigational concept) Laboratory test result MED[facility] ([facility]) A false negative result may occur [...] pathogens. DISCLAIMER: Testing was performed using the [employer] SARS-CoV-2 test. This test was developed and its performance characteristics determined by [employer]. This test has not been FDA cleared [...] revoked sooner. RSV Amplification [facility] Negative results do not preclude influen za or RSV virus infection and should not be used as the sole basis for treatment or other patient management decisions. ID Date Data Source [id number] 07/20/2020 03:24:00 PM EST [facility] Name Value Range Interpretation Code Description Data Amber rce(s) Supporting Document(s) SARS coronavirus 2 RNA [Presence] in Res piratory specimen by JOSE with probe detection NEGATIVE [facility] This lab was ordered by [facility] a nd reported by [facility]. ID Date Data Source [id number] 07/10/2020 03:17:00 PM EST [facility] Name Value Range Interpretation Code Description Data Amber rce(s) Supporting Document(s) Protein [Mass/volume] in Urine 198.0 mg/dL 0.0-12.0 [facility] <content>note:<nlbl:demographic_changed> </content>
<content></content> Creatinine [Mass/volume] in Urine 341.0 mg/dL [facility] <content>note:<nlbl:demographic_changed> </content>
<content></content> ID Date Data Source [id number] 07/10/2020 03:14:00 PM EST [facility] Name Value Range Interpretation Code Description Data Amber rce(s) Supporting Document(s) Complement C3 [Mass/volume] in Serum or Plasma 139 mg/dL 90-180 [facility] <content>note:<nlbl:demographic_changed> </content>
<content></content> C reactive protein [Mass/volume] in Serum or Plasma by High sensitivity method 2.83 mg/dL 0.00-0.30 [facility] ([facility] ) <content>note:<nlbl:demographic_changed> </content>
<content></content> Complement C4 [Mass/volume] in Serum or Plasma 29 mg/dL 10-40 [facility] ([facility]) <content>note:<nlbl:demographic_changed> </content>
<content></content> ID Date Data Source [id number] 07/10/2020 03:14:00 PM EST MED[facility] ([facility]) Name Value Range Interpretation Code Description Data Amber rce(s) Supporting Document(s) Blood Urea Nitrogen 15 mg/dL 7-18 [facility] ([facility]) Creatinine For GFR 1.55 mg/dL 0.55-1.30 [facility] ([facility]) Glucose, Fasting 110 mg/dL 70-100 MEDENT ([facility]) Glomerular Filtration Rate 34.8 MED ENT ([facility]) <content>Units are mL/min/1.73 m2</content>
<content></content>
<content>Chronic Kidney Disease Staging per [facility]:</content>
<content></content>
<content>Stage I & II GFR >=60 Normal to Mildly Decreased</content>
<content>Stage III GFR 30- 59 Moderately Decreased</content>
<content>Stage IV GFR 15-29 Severely Decreased</content>
<content>Stage V GFR <15 Very Little GFR Left</content>
<content>ESRD GFR <15 on RACE STARTER</content>
<content></content> Sodium Level 138 meq/L 136-145 MED[facility] ([facility]) Potassium Serum 4.9 meq/L 3.5-5.1 MED[facility] ([facility]) Chloride Level 110 meq/L 98-107 MED[facility] ([facility]) Anion Gap 4 meq/L 8-16 [facility] Carbon Dioxide Level 24 meq/L 21-32 [facility] ([facility]) Alt/SGPT 10 U/L 12-78 [facility]) Calcium Level 8.5 mg/dL 8.8-10.2 MEDENT ([facility]) Ast/Sgot 5 U/L 7-37 [facility]) Bilirubin,Total 0.2 mg/dL 0.2-1.0 MED[facility] ([facility]) Total Protein 6.7 GM/DL 6.4-8.2 MED[facility] ([facility]) Alkaline Phosphatase 92 U/L 45-117 [facility] ([facility]) Albumin 2.7 GM/DL 3.2-5.2 [facility]) Albumin/Globulin Ratio 0.7 1.2-2.2 [facility] ([facility]) ID Date Data Source [id number] 07/10/2020 03:14:00 PM EST MED[facility] ([facility]) Name Value Range Interpretation Code Description Data Amber rce(s) Supporting Document(s) Erythrocyte sedimentation rate by Westergren method 79 mm/hr 0-30 MED[facility] ([facility]) ID Date Data Source [id number] 07/10/2020 03:14:00 PM EST MED[facility] ([facility]) Name Value Range Interpretation Code Description Data Amber rce(s) Supporting Document(s) White Blood Count 11.3 10 4.0-10.0 MED[facility] ([facility]) Hemoglobin 9.7 g/dL 12.0-15.5 [facility] Red Blood Count 3.54 10 4.00-5.40 MED[facility] ([facility]) Hematocrit 32.0 % 36.0-47.0 [facility]) Mean Corpuscular Volume 90.4 fl 80.0-96.0 [facility] Mean Corpuscular Hemoglobin 27.4 pg 27.0-33.0 RI DENT ([facility]) Red Cell Distribution Width 16.1 % 11.5-14.5 RI DENT ([facility]) Mean Corpuscular HGB Conc 30.3 g/dL 32.0-36.5 MEDE NT ([facility]) Platelet Count, Automated 450 10 150-450 MEDE NT ([facility]) Lymph % 18.6 % 24.0-44.0 [facility]) Neutrophils % 61.2 % 36.0-66.0 [facility] [place] % 9.1 % 0.0-5.0 [facility]) Immature Granulocyte % 0.4 % 0-3.0 [facility] ([facility]) Eos % 10.2 % 0.0-3.0 [facility]) Baso % 0.5 % 0.0-1.0 [facility] Lymph # 2.1 10 1.5-5.0 [facility]) Neutrophils # 6.9 10 1.5-8.5 [facility] Nucleated Red Blood Cell % 0.0 % 0-0 MED ENT ([facility]) [place] # 1.0 10 0.0-0.8 [facility]) Baso # 0.1 10 0.0-0.2 [facility] Eos # 1.2 10 0.0-0.5 [facility]) ID Date Data Source RHEUMATOID FACTOR QUANT 06/04/2020 12:00:00 AM EST eCW1 ([facility]) Name Value Range Interpretation Code Description Data Amber rce(s) Supporting Document(s) 67.1 <15.0 eCW1 ([facility]) ID Date Data Source IgG SUBCLASS 4 06/04/2020 12:00:00 AM EST eCW1 ([facility]) Name Value Range Interpretation Code Description Data Amber rce(s) Supporting Document(s) 237 2-96 eCW1 ([facility]) ID Date Data Source CREATININE,RANDOM URINE 06/04/2020 12:00:00 AM EST eCW1 ([facility]) Name Value Range Interpretation Code Description Data Amber rce(s) Supporting Document(s) 267.0 eCW1 ([facility]) ID Date Data Source LAKESHA TITER & PATTERN 06/04/2020 12:00:00 AM EST eCW1 ([facility]) Name Value Range Interpretation Code Description Data Amber rce(s) Supporting Document(s) Negative . eCW1 ([facility]) ID Date Data Source ANTI-SJOGRENS A&B ANTIBODIES 06/04/2020 12:00:00 AM EST eCW1 ([facility]) Name Value Range Interpretation Code Description Data Amber rce(s) Supporting Document(s) <0.2 0.0-0.9 eCW1 ([facility]) <0.2 0.0-0.9 eCW1 ([facility]) ID Date Data Source TOTAL PROTEIN,RANDOM URINE 06/04/2020 12:00:00 AM EST eCW1 ( [facility]) Name Value Range Interpretation Code Description Data Amber rce(s) Supporting Document(s) 147.1 0.0-12.0 eCW1 ([facility]) ID Date Data Source HEPATITIS C ANTIBODY INDEX 06/04/2020 12:00:00 AM EST eCW1 ( [facility]) Name Value Range Interpretation Code Description Data Amber rce(s) Supporting Document(s) 0.0 <0.8 eCW1 ([facility]) ID Date Data Source Lupus Anticoagulant with RFX Send Out ONLY 06/04/2020 12:00: 00 AM EST eCW1 ([facility]) Name Value Range Interpretation Code Description Data Amber rce(s) Supporting Document(s) 42.9 0.0-47.0 eCW1 ([facility]) 39.1 0.0-51.9 eCW1 ([facility]) Comment: . eCW1 ([facility]) ID Date Data Source CRYOGLOBULINS 06/04/2020 12:00:00 AM EST eCW1 ([facility]) Name Value Range Interpretation Code Description Data Amber rce(s) Supporting Document(s) NEGATIVE NEGATIVE eCW1 ([facility]) ID Date Data Source ANTI-CARDIOLIPIN ANTIBODIES 06/04/2020 12:00:00 AM EST eCW1 ([facility]) Name Value Range Interpretation Code Description Data Amber rce(s) Supporting Document(s) <9 0-12 eCW1 ([facility]) <9 0-11 eCW1 ([facility]) <9 0-14 eCW1 ([facility]) ID Date Data Source HEPATITIS B CORE ANTIBODY IGG 06/04/2020 12:00:00 AM EST eCW 1 ([facility]) Name Value Range Interpretation Code Description Data Amber rce(s) Supporting Document(s) Negative Negative eCW1 ([facility]) ID Date Data Source ERYTHROCYTE SEDIMENTATION RATE 06/04/2020 12:00:00 AM EST eC W1 ([facility]) Name Value Range Interpretation Code Description Data Amber rce(s) Supporting Document(s) 54 0-30 eCW1 ([facility]) ID Date Data Source HEPATITIS B SURFACE ANTIGEN 06/04/2020 12:00:00 AM EST eCW1 ([facility]) Name Value Range Interpretation Code Description Data Amber rce(s) Supporting Document(s) NEGATIVE NEGATIVE eCW1 ([facility]) ID Date Data Source CPK CREATINE PHOSPHOKINASE 06/04/2020 12:00:00 AM EST eCW1 ( [facility]) Name Value Range Interpretation Code Description Data Amber rce(s) Supporting Document(s) 42 26-192 eCW1 ([facility]) ID Date Data Source COMPLEMENT C4 06/04/2020 12:00:00 AM EST eCW1 ([facility]) Name Value Range Interpretation Code Description Data Amber rce(s) Supporting Document(s) 32 10-40 eCW1 ([facility]) ID Date Data Source COMPLEMENT C3 06/04/2020 12:00:00 AM EST eCW1 ([facility]) Name Value Range Interpretation Code Description Data Amber rce(s) Supporting Document(s) 156 90-180 eCW1 ([facility]) ID Date Data Source BETA-2 GLYCOPROTEIN 1 LEANN ROBERT 06/04/2020 12:00:00 AM EST eCW 1 ([facility]) Name Value Range Interpretation Code Description Data Amber rce(s) Supporting Document(s) <9 0-25 eCW1 ([facility]) <9 0-32 eCW1 ([facility]) <9 0-20 eCW1 ([facility]) ID Date Data Source [id number] 05/26/2020 01:48:00 PM EST MEDENT ([facility]) Name Value Range Interpretation Code Description Data Amber rce(s) Supporting Document(s) Erythrocytes [#/volume] in Blood by Automated count 3.79 x10*6/UL 4.2 0-6.30 MEDENT ([facility]) Leukocytes [#/volume] in Blood by Automated count 11.9 x10*3/UL 4.1-1 0.9 MED[facility] ([facility]) Hemoglobin [Mass/volume] in Blood 10.7 g/dL 12.0-18.0 MED[facility] ([facility]) Hematocrit [Volume Fraction] of Blood by Automated count 32.1 % 3 7.0-51.0 MED[facility] ([facility]) MCV 84.7 fL 80.0-97.0 [facility] MCH 28.4 pg 26.0-32.0 [facility] Platelets [#/volume] in Blood by Automated count 560 x10*3/UL 140-440 MED[facility] ([facility]) Erythrocyte distribution width [Ratio] by Automated count 16.2 % 11.6-13.7 [facility] ([facility]) MCHC 33.5 g/dL 31.0-38.0 [facility] Mid % 5.5 % 1.7-9.3 [facility] Lymph % 17.9 % 10.0-58.5 [facility] MPV 7.6 FL 7.8-11.0 [facility] ([facility]) Mid # 0.7 x10*3/UL 0.1-0.6 [facility] ([facility]) Neut % 76.6 % 37.0-92.0 [facility] ([facility]) Lymph # 2.1 x10*3/UL 0.6-4.1 [facility] ([facility]) Neut # 9.1 x10*3/UL 2.0-7.8 [facility] ([facility]) ID Date Data Source [id number] 05/26/2020 01:48:00 PM EST MEDENT ([facility]) Name Value Range Interpretation Code Description Data Amber rce(s) Supporting Document(s) Urea nitrogen [Mass/volume] in Serum or Plasma 12 mg/dL 7-18 [facility] ([facility]) Glucose [Mass/volume] in Serum or Plasma 117 mg/dL 74-99 [facility] ([facility]) 100-125 mg/dL PRE-DIABETES/FASTING >126 mg/dL DIABETES/FASTING Sodium [Moles/volume] in Serum or Plasma 142 meq/L 136-145 [facility] ([facility]) Creatinine 1.6 mg/dL 0.6-1.3 MEDENT ([facility]) Potassium [Moles/volume] in Serum or Plasma 3.5 meq/L 3.5-5.1 [facility] ([facility]) Chloride [Moles/volume] in Serum or Plasma 106 meq/L 98-107 [facility] ([facility]) Carbon dioxide, total [Moles/volume] in Serum or Plasma 25 meq/L 21 -32 [facility] ([facility]) Calcium [Mass/volume] in Serum or Plasma 8.6 mg/dL 8.5-10.1 [facility] ([facility]) Total Bilirubin 0.2 mg/dL 0.2-1.0 MEDENT ([facility]) Aspartate aminotransferase [Enzymatic activity/volume] in Serum or Plasma 12 U/L 15-37 [facility] ([facility] ) Alkaline phosphatase isoenzyme [Units/volume] in Serum or Pl asma 92 mg/dL 46-116 [facility] ([facility]) Alanine aminotransferase [Enzymatic activity/volume] in Seru m or Plasma 13 U/L 12- [facility] ([facility]) Albumin [Mass/volume] in Serum or Plasma 3.2 g/dL 3.4-5.0 [facility] ([facility]) Glomerular filtration rate/1.73 sq M pre dicted among non-blacks [Volume Rate/Area] in Serum or Plasma by Creatinine-based formula (MDRD) 32 mL/min MEDENT ([facility]) Proteinase 3 Ab [Units/volume] in Serum 7.2 g/dL 6.4-8.2 [facility] ([facility]) A/G Ratio 0.80 CALC 1.00-1.90 [facility] Glomerular filtration rate/1.73 sq M pre dicted among blacks [Volume Rate/Area] in Serum or Plasma by Creatinine-based formula (MDRD) 38 mL/min MED[facility] ([facility]) <content>CHRONIC KIDNEY DISEASE STAGING PER [facility]</content>
<content></content>
<content>STAGE I & II GFR >= 60 NORMAL TO MILDLY DECREASED</content>
<content>STAGE III GFR 30-59 MODERATELY DECREASED</content>
<content>STAGE IV GFR 15-29 SEVERELY DECREASED</content>
<content>STAGE V GFR <15 VERY LITTLE GFR LEFT</content>
<content>ESRD GFR <15 ON RACE STARTER</content>
<content></content> ID Date Data Source [id number] 05/14/2020 12:00:00 AM EST [facility] [place] [facility] Patient Name: YULISSA [id number] [facility] Date of : 1945[place], [place] [address] Date of Exam: 05/14/2020#: Fax: [phone] EXAM: [...] cm at the L3 level on the [id number] series. The diameter appears to be about [...] by: Rusty Yates MD 05/14/2020 11:48 AM [facility] ( & Angela)AbimbolaadV/Zoran you for referring MAHESH AQUINO to our office. Electronically Signed - RAFI 05/14/20 12:29 Name Value Range Interpretation Code Description Data Amber rce(s) Supporting Document(s) ID Date Data Source [id number] 04/29/2020 02:50:00 PM EDT YOHANA ([facility]) Name Value Range Interpretation Code Description Data Amber rce(s) Supporting Document(s) Carcinoembryonic Ag [Mass/volume] in Serum or Plasma 4.0 ng/mL YOHANA ([facility]) THE CEA ASSAY IS PERFORMED ON THE [employer] BY CHEMILUMINESCENCE AND SHOULD NOT BE COMPARED INTERCHANGEABLY WITH OTHER METHODS. IT SHOULD NOT BE USED ALONE A SCREENING TEST OR DIAGNOSIS FOR THE PRESENCE OR ABSENCE OF MALIGNANT DISEASE. PREDICTIONS OF DISEASE RECURRENCE SHOULD NOT BE BASED SOLELY ON VALUES OBTAINED FROM SERIAL PATIENT SERUM VALUES. ID Date Data Source [id number] 04/29/2020 02:50:00 PM EDT MEDENT ([facility]) Name Value Range Interpretation Code Description Data Amber rce(s) Supporting Document(s) Glucose, Fasting 86 mg/dL 70-100 MED[facility] ([facility]) Glomerular Filtration Rate 31.8 MED ENT ([facility]) <content>Units are mL/min/1.73 m2</content>
<content></content>
<content>Chronic Kidney Disease Staging per NKF:</content>
<content></content>
<content>Stage I & II GFR >=60 Normal to Mildly Decreased</content>
<content>Stage III GFR 30- 59 Moderately Decreased</content>
<content>Stage IV GFR 15-29 Severely Decreased</content>
<content>Stage V GFR <15 Very Little GFR Left</content>
<content>ESRD GFR <15 on RACE STARTER</content>
<content></content> Blood Urea Nitrogen 14 mg/dL 7-18 MEDENT ([facility]) Creatinine For GFR 1.68 mg/dL 0.55-1.30 MED[facility] ([facility]) Chloride Level 110 meq/L 98-107 MED[facility] ([facility]) Sodium Level 140 meq/L 136-145 [facility] ([facility]) Potassium Serum 4.1 meq/L 3.5-5.1 MED[facility] ([facility]) Anion Gap 5 meq/L 8-16 [facility] ([facility]) Carbon Dioxide Level 25 meq/L 21-32 MED[facility] ([facility]) Alt/SGPT 9 U/L 12-78 [facility] ([facility]) Calcium Level 8.3 mg/dL 8.8-10.2 MED[facility] ([facility]) Ast/Sgot 4 U/L 7-37 [facility] ([facility]) Alkaline Phosphatase 85 U/L 45-117 [facility] ([facility]) Bilirubin,Total 0.2 mg/dL 0.2-1.0 [facility] ([facility]) Total Protein 6.8 GM/DL 6.4-8.2 MED[facility] ([facility]) Albumin/Globulin Ratio 0.8 1.2-2.2 [facility] ([facility]) Albumin 3.0 GM/DL 3.2-5.2 [facility] ([facility]) ID Date Data Source [id number] 04/29/2020 02:50:00 PM EDT MED[facility] ([facility]) Name Value Range Interpretation Code Description Data Amber rce(s) Supporting Document(s) Red Blood Count 3.57 10 4.00-5.40 MED[facility] ([facility]) White Blood Count 12.1 10 4.0-10.0 MED[facility] ([facility]) Hemoglobin 9.5 g/dL 12.0-15.5 [facility] ([facility]) Mean Corpuscular Volume 88.8 fl 80.0-96.0 MED[facility] ([facility]) Mean Corpuscular Hemoglobin 26.6 pg 27.0-33.0 RI DENT ([facility]) Hematocrit 31.7 % 36.0-47.0 [facility] ([facility]) Mean Corpuscular HGB Conc 30.0 g/dL 32.0-36.5 MEDE NT ([facility]) Red Cell Distribution Width 16.7 % 11.5-14.5 RI DENT ([facility]) Platelet Count, Automated 439 10 150-450 MEDE NT ([facility]) [place] % 7.9 % 0.0-5.0 [facility] Neutrophils % 62.7 % 36.0-66.0 [facility] ([facility]) Lymph % 22.4 % 24.0-44.0 [facility] Eos % 6.0 % 0.0-3.0 [facility] ([facility]) Baso % 0.7 % 0.0-1.0 [facility] ([facility]) Immature Granulocyte % 0.3 % 0-3.0 [facility] ([facility]) Neutrophils # 7.6 10 1.5-8.5 MED[facility] ([facility]) Nucleated Red Blood Cell % 0.0 % 0-0 MED ENT ([facility]) Eos # 0.7 10 0.0-0.5 [facility] [place] # 1.0 10 0.0-0.8 [facility] ([facility]) Lymph # 2.7 10 1.5-5.0 [facility] ([facility]) Baso # 0.1 10 0.0-0.2 [facility] ([facility]) ID Date Data Source [id number] 03/13/2020 11:32:00 AM EDT MED[facility] ([facility]) Name Value Range Interpretation Code Description Data Amber rce(s) Supporting Document(s) Erythrocyte sedimentation rate by Westergren method 41 mm/hr 0-15 [facility] ID Date Data Source [id number] 03/13/2020 11:31:00 AM EDT [facility] Name Value Range Interpretation Code Description Data Amber rce(s) Supporting Document(s) Phospholipid phosphorus [Mass/volume] in Serum 151 mg/dL 150-250 [facility] Results for this test are for research p urposes only by the assay's habilitation assistant. The performance characteristics of this product have not been established. Results should not be used as a diagnostic procedure without confirmation of the diagnosis by another medically established diagnostic product or procedure. Performed at: [address] [id number] [address] Architect: Trevin Hardin MD, Phone: [phone] ID Date Data Source [id number] 03/13/2020 11:31:00 AM EDT [facility] Name Value Range Interpretation Code Description Data Amber rce(s) Supporting Document(s) Qvule-8-Uorcydor % 5.2 % 2.9-4.9 MED[facility] ([facility]) Albumin % 53.1 % 55.8-66.1 [facility]) Osczy-0-Hozctchch % 14.0 % 7.1-11.8 [facility] Rtzr-8-Tipkqpnqd % 7.2 % 4.7-7.2 [facility] ([facility]) Mcbw-4-Chlegdipc % 6.6 % 3.2-6.5 [facility] ([facility]) Gamma Globulin % 13.9 % 11.1-18.8 [facility] ([facility]) Acpnh-5-Eufwpcmqr 0.97 GM/DL 0.42-0.99 [facility] ([facility]) Uoonx-0-Aidatumpm 0.36 GM/DL 0.17-0.41 MED[facility] ([facility]) Albumin 3.66 GM/DL 3.29-5.55 [facility] ([facility]) Mvxv-4-Xcufhqrjx 0.50 GM/DL 0.28-0.60 MED[facility] ([facility]) Gamma Globulins 0.96 GM/DL 0.65-1.58 MED[facility] ([facility]) Xmmn-5-Psxtfoprg 0.46 GM/DL 0.19-0.55 MED[facility] ([facility]) Total Protein 6.9 GM/DL 6.4-8.2 MED[facility] ([facility]) Spep Interpretation Laboratory test result [facility] ([facility]) NO M-SPIKE(S)NOTED. Laboratory test finding (navigational concept) Laboratory test result [facility] ([facility]) REV'D BY Samaria SENIORONG ID Date Data Source [id number] 03/13/2020 11:31:00 AM EDT [facility]) Name Value Range Interpretation Code Description Data Amber rce(s) Supporting Document(s) Perinuclear AB Anca-P Laboratory test result [facility]) The presence of positive fluorescence ex hibiting P-ANCA or C-ANCA patterns alone is not specific for the diagnosis of Carmen's Granulomatosis (WG) or microscopic polyangiitis. Decisions about treatment should not be based solely on ANCA IFA results. The International ANCA Group Consensus recommends follow up testing of positive sera with both CA- 3 and MPO-ANCA enzyme immunoassays. As m any as 5% serum samples are positive only by EIA. Ref. AM J Clin Pathol 1999;111:507-513. Anca-Atypical Laboratory test result [facility] ([facility]) The atypical pANCA pattern has been obse rved in a significant percentage of patients with ulcerative colitis, primary sclerosing cholangitis and autoimmune hepatitis. Cytoplasmic Neutrop AB Anca-C Laboratory test result [facility]) ID Date Data Source [id number] 02/12/2020 12:00:00 AM EDT [facility] [facility] Patient Name: MAHESH [id number] [facility] Date of : 1945[place] [address] Date of Exam: 02/12/2020PH#: Fax: [phone] EXAM: MRI PELVIS WITHOUT CONTRASTCLINICAL INFORMATION: Bilateral hip pain.There are no prior pelvic MRI's for comparison.3T multiplanar MRI imaging of the pelvis was obtained using varioussequences.The femoral heads are spherical in shape and symmetric in appearance.There is dfxw-lu-bkjiutqp rather symmetric appearing hip joint spacenarrowing. No abnormal focal chondral or subchondral signal is seen in thefemoral or acetabular component of either hip. There is no hip jointeffusion. There is dwdo-wr-srvuqipn T2 hypersignal seen in thetrochanteric tendinobursal region of each hip. The signal and morphologythroughout the imaged musculature is within normal limits. There is noevidence of a mass or mass effect. The sacroiliac joints are within normallimits. The cortical and marrow signal seen throughout the imaged osseouspelvis is within normal limits.IMPRESSION:1. Nbgc-pw-cbmeusip bilateral hip degenerative changes.2. Uwuq-io-fistkbsr bilateral trochanteric tendinobursitis.Accredited by the [employer] in [place].ANGELIC Almaguer/Zoran hernandez for referring MAHESH AQUINO to our office. Electronically Signed - JASSON BETTS DO 02/12/20 17:50 Name Value Range Interpretation Code Description Data Amber rce(s) Supporting Document(s) ID Date Data Source [id number] 02/01/2020 09:00:00 PM EDT MED[facility] ([facility]) Name Value Range Interpretation Code Description Data Amber rce(s) Supporting Document(s) Prothrombin Time 13.2 s 11.8-14.0 [facility] ([facility]) Partial Thromboplastin Time 30.2 s 25.0-38.4 ME DENT ([facility]) Inr 0.99 [facility]) THERAPUTIC HUMAN INR VALUES INDICATIONS NORMAL RANGES PROPHYLAXIS/TREATMENT OF: VENOUS THROMBOSIS 2.0-3.0 PULMONARY EMBOLISM 2.0-3.0 PREVENTION OF SYSTEMIC EMBOLISM FROM: TISSUE HEART VALVES 2.0-3.0 ACUTE MYOCARDIAL INFARCTION 2.0-3.0 VALVULAR HEART DISEASE 2.0-3.0 ATRIAL FIBRILLATION 2.0-3.0 MECHANICAL VALVES(HIGH RISK) 2.5-3.5 RECURRENT MYOCARDIAL INFARCTION 2.5-3.5 ID Date Data Source [id number] 02/01/2020 08:40:00 PM EDT [facility] ([facility]) Name Value Range Interpretation Code Description Data Amber rce(s) Supporting Document(s) White Blood Count 9.8 10 4.0-10.0 [facility] ([facility]) Hemoglobin 10.0 g/dL 12.0-15.5 [facility]) Red Blood Count 3.59 10 4.00-5.40 [facility] ([facility]) Hematocrit 33.1 % 36.0-47.0 [facility]) Mean Corpuscular Volume 92.2 fl 80.0-96.0 [facility] ([facility]) Mean Corpuscular Hemoglobin 27.9 pg 27.0-33.0 ME DENT ([facility]) Platelet Count, Automated 427 10 150-450 MEDE NT ([facility]) Red Cell Distribution Width 15.9 % 11.5-14.5 ME DENT ([facility]) Mean Corpuscular HGB Conc 30.2 g/dL 32.0-36.5 MEDE NT ([facility]) [place] % 8.8 % 0.0-5.0 [facility]) Neutrophils % 56.1 % 36.0-66.0 [facility] ([facility]) Lymph % 28.3 % 24.0-44.0 [facility]) Eos % 5.8 % 0.0-3.0 [facility]) Immature Granulocyte % 0.3 % 0-3.0 [facility] ([facility]) Baso % 0.7 % 0.0-1.0 [facility]) Nucleated Red Blood Cell % 0.0 % 0-0 MED ENT ([facility]) Neutrophils # 5.5 10 1.5-8.5 [facility] ([facility]) Eos # 0.6 10 0.0-0.5 [facility]) Lymph # 2.8 10 1.5-5.0 [facility]) [place] # 0.9 10 0.0-0.8 [facility] ([facility]) Baso # 0.1 10 0.0-0.2 [facility]) ID Date Data Source [id number] 02/01/2020 08:40:00 PM EDT [facility] ([facility]) Name Value Range Interpretation Code Description Data Amber rce(s) Supporting Document(s) Troponin I.cardiac [Mass/volume] in Serum or Plasma Laboratory test result MEDENT ([facility]) <content>Troponin I Reference Interval f or Siemens Logan LOCI:</content>
<content></content>
<content>99th Percentile= 0.00-0.045 ng/ml</content>
<content></content>
<content>Risk Stratification:</content>
<content><= 0.10 ng/ml Decreased Risk for Adverse Clinical</content>
<content>Events.</content>
<content>0.10-1.50 ng/ml Increased Risk for Adverse Clinical</content>
<content>Events. Evaluation of additional</content>
<content>criterion and/or repeat testing in 2-6</content>
<content>hours is suggested to rule out myocardial</content>
<content>damage.</content>
<content>>= 1.50 ng/ml Indicative of Myocardial Injury.</content>
<content></content> Lipoprotein lipase [Enzymatic activity/volume] in Serum or Plasm a 80 U/L 73-393 [facility] Thyrotropin [Units/volume] in Serum or Plasma by Detec tion limit <= 0.05 mIU/L 0.753 uIU/ML 0.358-3.740 [facility] ) Thyroxine (T4) free [Mass/volume] in Serum or Plasma 0.90 ng/dL 0.76- 1.46 [facility]) ID Date Data Source [id number] 02/01/2020 08:40:00 PM EDT [facility]) Name Value Range Interpretation Code Description Data Amber rce(s) Supporting Document(s) Glucose, Fasting 103 mg/dL 70-100 [facility] Blood Urea Nitrogen 10 mg/dL 7-18 [facility] ([facility] Creatinine For GFR 1.34 mg/dL 0.55-1.30 [facility] ([facility]) Sodium Level 138 meq/L 136-145 [facility]) Glomerular Filtration Rate 41.3 MED ENT ([facility]) <content>Units are mL/min/1.73 m2</content>
<content></content>
<content>Chronic Kidney Disease Staging per NKF:</content>
<content></content>
<content>Stage I & II GFR >=60 Normal to Mildly Decreased</content>
<content>Stage III GFR 30- 59 Moderately Decreased</content>
<content>Stage IV GFR 15-29 Severely Decreased</content>
<content>Stage V GFR <15 Very Little GFR Left</content>
<content>ESRD GFR <15 on RACE STARTER</content>
<content></content> Potassium Serum 4.4 meq/L 3.5-5.1 [facility] ([facility]) Chloride Level 107 meq/L 98-107 [facility] ([facility]) Carbon Dioxide Level 27 meq/L 21-32 [facility] ([facility]) Anion Gap 4 meq/L 8-16 [facility] ([facility]) Calcium Level 8.5 mg/dL 8.8-10.2 [facility] ([facility]) ID Date Data Source [id number] 02/01/2020 08:40:00 PM EDT [facility] ([facility]) Name Value Range Interpretation Code Description Data Amber rce(s) Supporting Document(s) Ast/Sgot 11 U/L 7-37 [facility] ([facility]) Alt/SGPT 11 U/L 12-78 [facility] ([facility]) Bilirubin,Total 0.1 mg/dL 0.2-1.0 [facility] ([facility]) Alkaline Phosphatase 101 U/L 45-117 [facility] ([facility]) Bilirubin,Direct Laboratory test result 0.0-0.2 [facility] ([facility]) Albumin 3.0 GM/DL 3.2-5.2 [facility] ([facility]) Total Protein 7.0 GM/DL 6.4-8.2 [facility] Albumin/Globulin Ratio 0.8 1.2-2.2 [facility] ([facility]) ID Date Data Source [id number] 02/01/2020 08:40:00 PM EDT [facility] Name Value Range Interpretation Code Description Data Amber rce(s) Supporting Document(s) CPK Creatine Phosphokinase 60 U/L 26-192 [facility] CK-MB Value Mass Laboratory test result [facility] MB/CK Relative Index 1.67 [facility] ([facility]) <content>DIAGNOSIS CRITERIA</content>
<content>MMB ng/ml Relative Index (RI)</content>
<content>NON-AMI < or = 5 N/A</content>
<content>BLANC ZONE > 5 < or = 4</content>
<content>AMI > 5 > 4</content>
<content></content> ID Date Data Source [id number] 01/24/2020 01:00:00 PM EDT [facility] Name Value Range Interpretation Code Description Data Amber rce(s) Supporting Document(s) C reactive protein [Mass/volume] in Serum or Plasma by High sensitivity method Laboratory test result [facility] ([facility]) ID Date Data Source [id number] 01/24/2020 12:59:00 PM EDT [facility] ([facility]) Name Value Range Interpretation Code Description Data Amber rce(s) Supporting Document(s) Erythrocyte sedimentation rate by Westergren method 54 mm/hr 0-15 [facility] ID Date Data Source [id number] 12/31/2019 01:24:00 PM EDT [facility] Name Value Range Interpretation Code Description Data Amber rce(s) Supporting Document(s) Laboratory test finding (navigational concept) 122 mg/dL 70-105 [facility] ([facility]) Laboratory test finding (navigational concept) 31.0 % 38.0-51.0 [facility] Laboratory test finding (navigational concept) 3.8 meq/L 3.5-5.1 [facility] ([facility]) Laboratory test finding (navigational concept) 4.6 mg/dL 4.5-5.3 [facility] ([facility]) Laboratory test finding (navigational concept) 138 meq/L 136-145 [facility] ([facility]) Laboratory test finding (navigational concept) 9 mg/dL 8-26 [facility] ([facility]) Laboratory test finding (navigational concept) 20.0 MM/L 23.0-27.0 [facility] ([facility]) Laboratory test finding (navigational concept) 104 meq/L 98-109 [facility] ([facility]) Laboratory test finding (navigational concept) 1.3 mg/dL 0.6-1.3 [facility] ([facility]) ID Date Data Source [id number] 12/31/2019 01:22:00 PM EDT [facility] ([facility]) Name Value Range Interpretation Code Description Data Amber rce(s) Supporting Document(s) White Blood Count 13.4 10 4.0-10.0 [facility] ([facility]) Red Blood Count 3.12 10 4.00-5.40 [facility] ([facility]) Hematocrit 28.8 % 36.0-47.0 [facility] Hemoglobin 8.9 g/dL 12.0-15.5 [facility] ([facility]) Mean Corpuscular Volume 92.3 fl 80.0-96.0 [facility] ([facility]) Mean Corpuscular HGB Conc 30.9 g/dL 32.0-36.5 MEDE NT ([facility]) Mean Corpuscular Hemoglobin 28.5 pg 27.0-33.0 RI DENT ([facility]) Red Cell Distribution Width 17.3 % 11.5-14.5 RI DENT ([facility]) Neutrophils % 71.0 % 36.0-66.0 [facility] ([facility]) Platelet Count, Automated 449 10 150-450 MEDE NT ([facility]) [place] % 9.4 % 0.0-5.0 [facility]) Eos % 3.4 % 0.0-3.0 [facility] Lymph % 15.3 % 24.0-44.0 [facility] Baso % 0.5 % 0.0-1.0 [facility] Immature Granulocyte % 0.4 % 0-3.0 [facility] ([facility]) Nucleated Red Blood Cell % 0.0 % 0-0 MED ENT ([facility]) Neutrophils # 9.5 10 1.5-8.5 [facility] ([facility]) Lymph # 2.0 10 1.5-5.0 [facility] [place] # 1.3 10 0.0-0.8 [facility] Eos # 0.5 10 0.0-0.5 [facility] Baso # 0.1 10 0.0-0.2 [facility] ID Date Data Source [id number] 12/31/2019 01:17:00 PM EDT [facility] ([facility]) Name Value Range Interpretation Code Description Data Amber rce(s) Supporting Document(s) Laboratory test finding (navigational concept) 0.00 ng/mL 0.00-0.08 [facility] ([facility]) ID Date Data Source [id number] 12/31/2019 01:17:00 PM EDT [facility] ([facility]) Name Value Range Interpretation Code Description Data Amber rce(s) Supporting Document(s) Troponin I.cardiac [Mass/volume] in Serum or Plasma Laboratory test result [facility] ([facility]) Laboratory test finding (navigational concept) 0.00 ng/mL 0.00-0.08 [facility] ([facility]) ID Date Data Source [id number] 12/19/2019 02:28:00 PM EDT [facility] ([facility]) Name Value Range Interpretation Code Description Data Amber rce(s) Supporting Document(s) Cholesterol [Mass/volume] in Serum or Plasma 109 mg/dL 131-200 [facility] ([facility]) Cholesterol in HDL [Mass/volume] in Serum or Plasma 52 mg/dL 35-60 [facility] ([facility]) Triglyceride [Mass/volume] in Serum or Plasma 93 mg/dL 30-150 [facility] ([facility]) Cholesterol in LDL [Mass/volume] in Serum or Plasma by calcu lation 38 CALC 50-159 [facility] ([facility]) ID Date Data Source [id number] 12/19/2019 02:28:00 PM EDT [facility] ([facility]) Name Value Range Interpretation Code Description Data Amber rce(s) Supporting Document(s) Urea nitrogen [Mass/volume] in Serum or Plasma 11 mg/dL 7-18 [facility] ([facility]) Creatinine 1.5 mg/dL 0.6-1.3 [facility] ([facility]) NOTE: RESULT VERIFIED. Glucose [Mass/volume] in Serum or Plasma 100 mg/dL 74-99 [facility] ([facility]) 100-125 mg/dL PRE-DIABETES/FASTING >126 mg/dL DIABETES/FASTING Sodium [Moles/volume] in Serum or Plasma 138 meq/L 136-145 [facility] ([facility]) Chloride [Moles/volume] in Serum or Plasma 104 meq/L 98-107 [facility] ([facility]) Potassium [Moles/volume] in Serum or Plasma 4.5 meq/L 3.5-5.1 [facility] ([facility]) Calcium [Mass/volume] in Serum or Plasma 8.0 mg/dL 8.5-10.1 [facility] ([facility]) NOTE: RESULT VERIFIED. Alkaline phosphatase isoenzyme [Units/volume] in Serum or Pl asma 96 mg/dL 46-116 [facility] ([facility]) Carbon dioxide, total [Moles/volume] in Serum or Plasma 27 meq/L 21 -32 [facility] ([facility]) Aspartate aminotransferase [Enzymatic activity/volume] in Serum or Plasma 10 U/L 15-37 [facility] ([facility] ) Alanine aminotransferase [Enzymatic activity/volume] in Seru m or Plasma 14 U/L 12-78 [facility] ([facility]) Total Bilirubin 0.2 mg/dL 0.2-1.0 [facility] ([facility]) A/G Ratio 0.61 CALC 1.00-1.90 [facility]) Albumin [Mass/volume] in Serum or Plasma 2.7 g/dL 3.4-5.0 [facility] ([facility]) NOTE: RESULT VERIFIED. Proteinase 3 Ab [Units/volume] in Serum 7.1 g/dL 6.4-8.2 [facility] ([facility]) Glomerular filtration rate/1.73 sq M pre dicted among non-blacks [Volume Rate/Area] in Serum or Plasma by Creatinine-based formula (MDRD) 34 mL/min [facility] Glomerular filtration rate/1.73 sq M pre dicted among blacks [Volume Rate/Area] in Serum or Plasma by Creatinine-based formula (MDRD) 41 mL/min [facility] [facility] <content>CHRONIC KIDNEY DISEASE STAGING PER NKF</content>
<content></content>
<content>STAGE I & II GFR >= 60 NORMAL TO MILDLY DECREASED</content>
<content>STAGE III GFR 30-59 MODERATELY DECREASED</content>
<content>STAGE IV GFR 15-29 SEVERELY DECREASED</content>
<content>STAGE V GFR <15 VERY LITTLE GFR LEFT</content>
<content>ESRD GFR <15 ON RACE STARTER</content>
<content></content> ID Date Data Source [id number] 12/19/2019 02:28:00 PM EDT [facility] Name Value Range Interpretation Code Description Data Amber rce(s) Supporting Document(s) Erythrocyte sedimentation rate by Westergren method 55 mm/hr 0-15 [facility] ID Date Data Source [id number] 12/19/2019 02:28:00 PM EDT [facility] Name Value Range Interpretation Code Description Data Amber rce(s) Supporting Document(s) Leukocytes [#/volume] in Blood by Automated count 10.8 x10*3/UL 4.1-1 0.9 [facility] ([facility]) Erythrocytes [#/volume] in Blood by Automated count 3.41 x10*6/UL 4.2 0-6.30 [facility] ([facility]) Hemoglobin [Mass/volume] in Blood 9.7 g/dL 12.0-18.0 [facility] ([facility]) NOTE: RESULT VERIFIED. MCV 88.7 fL 80.0-97.0 [facility] ([facility]) MCH 28.6 pg 26.0-32.0 [facility] ([facility]) Hematocrit [Volume Fraction] of Blood by Automated count 30.3 % 3 7.0-51.0 [facility] ([facility] Erythrocyte distribution width [Ratio] by Automated count 17.2 % 11.6-13.7 [facility] ([facility]) Platelets [#/volume] in Blood by Automated count 530 x10*3/UL 140-440 [facility] ([facility]) MCHC 32.2 g/dL 31.0-38.0 [facility] ([facility]) MPV 7.0 FL 7.8-11.0 [facility] ([facility]) Mid % 7.6 % 1.7-9.3 [facility] ([facility]) Lymph % 21.6 % 10.0-58.5 [facility] ([facility]) Mid # 0.8 x10*3/UL 0.1-0.6 [facility] ([facility]) Neut % 70.8 % 37.0-92.0 [facility] ([facility]) Lymph # 2.3 x10*3/UL 0.6-4.1 [facility] ([facility]) Neut # 7.7 x10*3/UL 2.0-7.8 [facility] ([facility] ID Date Data Source [id number] 10/22/2019 02:22:00 PM EDT [facility] ([facility] Name Value Range Interpretation Code Description Data Amber rce(s) Supporting Document(s) Cyclic citrullinated peptide IgG Ab [Units/volume] in Serum or Plasma 9 units 0-19 [facility] ([facility]) <content>Negative <20</con tent>
<content>Weak positive 20 - 39</content>
<content>Moderate positive 40 - 59</content>
<content>Strong positive >59</content>
<content>Performed at: [facility]</content>
<content>[address], [place] [id number]</content>
<content>Golf Course Architect: Trevin Hardin MD, Phone: [phone]</content>
<content></content> ID Date Data Source [id number] 10/22/2019 02:22:00 PM EDT [facility] ([facility]) Name Value Range Interpretation Code Description Data Amber rce(s) Supporting Document(s) Glucose [Mass/volume] in Serum or Plasma 131 mg/dL 74-99 [facility] ([facility]) 100-125 mg/dL PRE-DIABETES/FASTING >126 mg/dL DIABETES/FASTING Creatinine 1.9 mg/dL 0.6-1.3 [facility] Urea nitrogen [Mass/volume] in Serum or Plasma 17 mg/dL 7-18 [facility] ([facility]) Chloride [Moles/volume] in Serum or Plasma 103 meq/L 98-107 [facility] ([facility]) Carbon dioxide, total [Moles/volume] in Serum or Plasma 25 meq/L 21 -32 [facility] ([facility]) Sodium [Moles/volume] in Serum or Plasma 139 meq/L 136-145 [facility] ([facility]) Potassium [Moles/volume] in Serum or Plasma 3.7 meq/L 3.5-5.1 [facility] ([facility]) Glomerular filtration rate/1.73 sq M pre dicted among blacks [Volume Rate/Area] in Serum or Plasma by Creatinine-based formula (MDRD) 31 mL/min [facility] ([facility]) <content>CHRONIC KIDNEY DISEASE STAGING PER NKF</content>
<content></content>
<content>STAGE I & II GFR >= 60 NORMAL TO MILDLY DECREASED</content>
<content>STAGE III GFR 30-59 MODERATELY DECREASED</content>
<content>STAGE IV GFR 15-29 SEVERELY DECREASED</content>
<content>STAGE V GFR <15 VERY LITTLE GFR LEFT</content>
<content>ESRD GFR <15 ON RACE STARTER</content>
<content></content> Calcium [Mass/volume] in Serum or Plasma 8.3 mg/dL 8.5-10.1 [facility] Glomerular filtration rate/1.73 sq M pre dicted among non-blacks [Volume Rate/Area] in Serum or Plasma by Creatinine-based formula (MDRD) 26 mL/min [facility] ID Date Data Source [id number] 10/22/2019 02:22:00 PM EDT [facility] Name Value Range Interpretation Code Description Data Amber rce(s) Supporting Document(s) Erythrocyte sedimentation rate by Westergren method 55 mm/hr 0-15 [facility] ID Date Data Source [id number] 10/22/2019 02:22:00 PM EDT [facility] Name Value Range Interpretation Code Description Data Amber rce(s) Supporting Document(s) Erythrocytes [#/volume] in Blood by Automated count 3.58 x10*6/UL 4.2 0-6.30 [facility] Leukocytes [#/volume] in Blood by Automated count 14.0 x10*3/UL 4.1-1 0.9 [facility] NOTE: RESULT VERIFIED. MCH 28.5 pg 26.0-32.0 [facility] Hematocrit [Volume Fraction] of Blood by Automated count 30.5 % 3 7.0-51.0 [facility] Hemoglobin [Mass/volume] in Blood 10.2 g/dL 12.0-18.0 [facility] MCV 85.0 fL 80.0-97.0 [facility] MCHC 33.5 g/dL 31.0-38.0 [facility] ([facility]) Platelets [#/volume] in Blood by Automated count 551 x10*3/UL 140-440 [facility] ([facility]) Erythrocyte distribution width [Ratio] by Automated count 15.5 % 11.6-13.7 [facility] ([facility]) Lymph % 17.5 % 10.0-58.5 [facility] ([facility]) Neut % 77.4 % 37.0-92.0 [facility] ([facility]) MPV 7.6 FL 7.8-11.0 [facility]) Mid % 5.1 % 1.7-9.3 [facility]) Neut # 10.9 x10*3/UL 2.0-7.8 [facility] ([facility]) Lymph # 2.4 x10*3/UL 0.6-4.1 [facility] ([facility]) Mid # 0.7 x10*3/UL 0.1-0.6 [facility] ([facility]) ID Date Data Source [id number] 09/17/2019 02:25:00 PM EDT [facility] ([facility]) Name Value Range Interpretation Code Description Data Amber rce(s) Supporting Document(s) Urea nitrogen [Mass/volume] in Serum or Plasma 16 mg/dL 7-18 [facility] ([facility]) Sodium [Moles/volume] in Serum or Plasma 138 meq/L 136-145 [facility] ([facility]) Creatinine 1.8 mg/dL 0.6-1.3 [facility] ([facility]) Glucose [Mass/volume] in Serum or Plasma 123 mg/dL 74-99 [facility] ([facility]) 100-125 mg/dL PRE-DIABETES/FASTING >126 mg/dL DIABETES/FASTING Carbon dioxide, total [Moles/volume] in Serum or Plasma 26 meq/L 21 -32 [facility] ([facility]) Potassium [Moles/volume] in Serum or Plasma 3.6 meq/L 3.5-5.1 [facility] ([facility]) Calcium [Mass/volume] in Serum or Plasma 8.3 mg/dL 8.5-10.1 [facility] ([facility]) Chloride [Moles/volume] in Serum or Plasma 103 meq/L 98-107 [facility] ([facility]) Aspartate aminotransferase [Enzymatic activity/volume] in Se rum or Plasma 8 U/L 15-37 [facility] ([facility]) Alanine aminotransferase [Enzymatic activity/volume] in Seru m or Plasma 11 U/L 12-78 [facility] ([facility]) Alkaline phosphatase isoenzyme [Units/volume] in Serum or Pl asma 96 mg/dL 46-116 [facility] ([facility]) Total Bilirubin 0.2 mg/dL 0.2-1.0 [facility] ([facility]) Albumin [Mass/volume] in Serum or Plasma 2.9 g/dL 3.4-5.0 [facility] ([facility]) Proteinase 3 Ab [Units/volume] in Serum 7.9 g/dL 6.4-8.2 [facility] ([facility]) A/G Ratio 0.58 CALC 1.00-1.90 [facility] Glomerular filtration rate/1.73 sq M pre dicted among non-blacks [Volume Rate/Area] in Serum or Plasma by Creatinine-based formula (MDRD) 28 mL/min [facility] ([facility]) Glomerular filtration rate/1.73 sq M pre dicted among blacks [Volume Rate/Area] in Serum or Plasma by Creatinine-based formula (MDRD) 33 mL/min [facility] ([facility]) <content>CHRONIC KIDNEY DISEASE STAGING PER NKF</content>
<content></content>
<content>STAGE I & II GFR >= 60 NORMAL TO MILDLY DECREASED</content>
<content>STAGE III GFR 30-59 MODERATELY DECREASED</content>
<content>STAGE IV GFR 15-29 SEVERELY DECREASED</content>
<content>STAGE V GFR <15 VERY LITTLE GFR LEFT</content>
<content>ESRD GFR <15 ON RACE STARTER</content>
<content></content> ID Date Data Source [id number] 09/17/2019 02:25:00 PM EDT [facility] ([facility]) Name Value Range Interpretation Code Description Data Amber rce(s) Supporting Document(s) Creatine kinase [Enzymatic activity/volume] in Serum or Plasma 40 U /L 26-192 [facility] ([facility]) ID Date Data Source [id number] 09/17/2019 02:24:00 PM EDT [facility] ([facility] Name Value Range Interpretation Code Description Data Amber rce(s) Supporting Document(s) Myoglobin Screen, Urine Laboratory test result [facility] ([facility]) ID Date Data Source [id number] 09/17/2019 02:24:00 PM EDT [facility] Name Value Range Interpretation Code Description Data Amber rce(s) Supporting Document(s) Color, Urine Laboratory test result [facility] ([facility]) Appearance, Urine Laboratory test result [facility] ([facility]) Specific [place] Urine Auto 1.014 1.002-1.035 [facility] ([facility]) Protein, Urine Auto Laboratory test result [facility] ([facility]) PH,Urine 5.0 units 5.0-9.0 [facility] Glucose, Urine (Ua) Auto Laboratory test result [facility] ([facility]) Ketone, Urine Auto Laboratory test result [facility] ([facility]) Bilirubin, Urine Auto Laboratory test result [facility] ([facility]) Urobilinogen, Urine Auto 0.2 mg/dL 0.0-2.0 [facility] ([facility]) Leukocyte Esterase, Urine Auto Laboratory test result [facility] ([facility]) WBC, Urine Auto 7 /HPF 0-3 [facility] ([facility] Blood, Urine Blood Laboratory test result [facility] ([facility]) Nitrite, Urine Auto Laboratory test result [facility] ([facility]) Bacteria, Urine Auto Laboratory test result [facility] ([facility]) Squamous Epithelial Cell Ur AU 2 /HPF 0-6 [facility] ([facility]) RBC, Urine Auto 4 /HPF 0-3 [facility] ([facility]) Transitional Epithelial Auto Laboratory test result [facility] ([facility]) Hyaline Cast, Urine Auto 0 /LPF 0-1 [facility] ([facility]) Mucus, Urine Laboratory test result [facility] ([facility]) ID Date Data Source [id number] 09/06/2019 02:22:00 PM EST [facility] ([facility]) Name Value Range Interpretation Code Description Data Amber rce(s) Supporting Document(s) PTT Lupus Type Anticoag Screen 1.1 0-1.2 [facility] ([facility]) RESULT IS LESS THAN 1.2, NO FURTHER [...] a specific inhibitor. ID Date Data Source [id number] 09/06/2019 02:22:00 PM EST [facility] ([facility]) Name Value Range Interpretation Code Description Data Amber rce(s) Supporting Document(s) Cyclic citrullinated peptide IgG Ab [Units/volume] in Serum or Plasma 9 units 0-19 [facility] ([facility]) <content>Negative <20</con tent>
<content>Weak positive 20 - 39</content>
<content>Moderate positive 40 - 59</content>
<content>Strong positive >59</content>
<content>Performed at: [facility]</content>
<content>[address] [place] [id number]</content>
<content>Golf Course Architect: Trevin Hardin MD, Phone: [phone]</content>
<content></content> ID Date Data Source [id number] 09/06/2019 02:18:00 PM EST [facility] ([facility]) Name Value Range Interpretation Code Description Data Amber rce(s) Supporting Document(s) Glucose [Mass/volume] in Serum or Plasma 130 mg/dL 74-99 [facility] ([facility]) 100-125 mg/dL PRE-DIABETES/FASTING >126 mg/dL DIABETES/FASTING Urea nitrogen [Mass/volume] in Serum or Plasma 18 mg/dL 7-18 [facility] ([facility]) Potassium [Moles/volume] in Serum or Plasma 3.8 meq/L 3.5-5.1 [facility] ([facility]) Creatinine 2.0 mg/dL 0.6-1.3 [facility] Sodium [Moles/volume] in Serum or Plasma 138 meq/L 136-145 [facility] ([facility]) Carbon dioxide, total [Moles/volume] in Serum or Plasma 23 meq/L 21 -32 [facility] ([facility]) Chloride [Moles/volume] in Serum or Plasma 103 meq/L 98-107 [facility] ([facility]) Calcium [Mass/volume] in Serum or Plasma 8.4 mg/dL 8.5-10.1 [facility] ([facility]) Glomerular filtration rate/1.73 sq M pre dicted among non-blacks [Volume Rate/Area] in Serum or Plasma by Creatinine-based formula (MDRD) 24 mL/min [facility] ([facility]) Glomerular filtration rate/1.73 sq M pre dicted among blacks [Volume Rate/Area] in Serum or Plasma by Creatinine-based formula (MDRD) 30 mL/min [facility] ([facility]) <content>CHRONIC KIDNEY DISEASE STAGING PER NKF</content>
<content></content>
<content>STAGE I & II GFR >= 60 NORMAL TO MILDLY DECREASED</content>
<content>STAGE III GFR 30-59 MODERATELY DECREASED</content>
<content>STAGE IV GFR 15-29 SEVERELY DECREASED</content>
<content>STAGE V GFR <15 VERY LITTLE GFR LEFT</content>
<content>ESRD GFR <15 ON RACE STARTER</content>
<content></content> ID Date Data Source [id number] 09/06/2019 02:18:00 PM EST [facility] ([facility]) Name Value Range Interpretation Code Description Data Amber rce(s) Supporting Document(s) Leukocytes [#/volume] in Blood by Automated count 10.4 x10*3/UL 4.1-1 0.9 [facility] ([facility]) Erythrocytes [#/volume] in Blood by Automated count 3.79 x10*6/UL 4.2 0-6.30 [facility] ([facility]) Hemoglobin [Mass/volume] in Blood 10.8 g/dL 12.0-18.0 [facility] ([facility]) Hematocrit [Volume Fraction] of Blood by Automated count 33.2 % 3 7.0-51.0 [facility] ([facility]) MCV 87.6 fL 80.0-97.0 [facility] MCHC 32.6 g/dL 31.0-38.0 [facility] ([facility] MCH 28.5 pg 26.0-32.0 [facility] Platelets [#/volume] in Blood by Automated count 455 x10*3/UL 140-440 [facility] ([facility]) Erythrocyte distribution width [Ratio] by Automated count 15.4 % 11.6-13.7 [facility] ([facility]) MPV 7.5 FL 7.8-11.0 [facility] Lymph % 17.2 % 10.0-58.5 [facility] ([facility] Mid % 6.2 % 1.7-9.3 [facility] Mid # 0.8 x10*3/UL 0.1-0.6 [facility] ([facility]) Neut # 7.9 x10*3/UL 2.0-7.8 [facility] ([facility]) Lymph # 1.7 x10*3/UL 0.6-4.1 [facility] ([facility]) Neut % 76.6 % 37.0-92.0 [facility]) ID Date Data Source [id number] 09/02/2019 12:48:00 PM EST [facility] ([facility]) Name Value Range Interpretation Code Description Data Amber rce(s) Supporting Document(s) Antinuclear Antibodies Laboratory test result [facility] ([facility]) Performed at: RN - [facility] [address] [id number] [employer] Architect: Jillian Miner MD, Phone: [phone] ID Date Data Source [id number] 09/02/2019 12:48:00 PM EST [facility] ([facility]) Name Value Range Interpretation Code Description Data Amber rce(s) Supporting Document(s) Rheumatoid Factor Quant 48.1 IU/ml [facility] ([facility]) <content>note:<nlbl:demographic_changed></content>
<content>note:<nlbl:demog raphic_changed></content>
<content>note:<nlbl:demographic_changed></content>
<content></content> Erythrocyte sedimentation rate by Westergren method 65 mm/hr 0-30 [facility] ([facility]) Bacteria identified in Blood by Culture Laboratory test result [facility] ([facility]) No growth after 72 hours . All [...] High sensitivity method 4.23 mg/dL 0.00-0.30 [facility] ([facility] ) <content>note:<nlbl:demographic_changed></content>
<content>note:<nlbl:demog raphic_changed></content>
<content>note:<nlbl:demographic_changed></content>
<content></content> ID Date Data Source [id number] 09/02/2019 12:48:00 PM EST [facility] ([facility]) Name Value Range Interpretation Code Description Data Amber rce(s) Supporting Document(s) CPK Creatine Phosphokinase 87 U/L 26-192 [facility] ([facility]) MB/CK Relative Index 1.95 [facility] <content>DIAGNOSIS CRITERIA</content>
<content>MMB ng/ml Relative Index (RI)</content>
<content>NON-AMI < or = 5 N/A</content>
<content>BLANC ZONE > 5 < or = 4</content>
<content>AMI > 5 > 4</content>
<content></content> CK-MB Value Mass 1.7 ng/mL [facility] Troponin I Laboratory test result [facility]) <content>Troponin I Reference Interval f or Siemens [place] LOCI:</content>
<content></content>
<content>99th Percentile= 0.00-0.045 ng/ml</content>
<content></content>
<content>Risk Stratification:</content>
<content><= 0.10 ng/ml Decreased Risk for Adverse Clinical</content>
<content>Events.</content>
<content>0.10-1.50 ng/ml Increased Risk for Adverse Clinical</content>
<content>Events. Evaluation of additional</content>
<content>criterion and/or repeat testing in 2-6</content>
<content>hours is suggested to rule out myocardial</content>
<content>damage.</content>
<content>>= 1.50 ng/ml Indicative of Myocardial Injury.</content>
<content></content> ID Date Data Source [id number] 09/02/2019 12:48:00 PM EST [facility] ([facility]) Name Value Range Interpretation Code Description Data Amber rce(s) Supporting Document(s) Lactate [Mass/volume] in Serum or Plasma 1.6 mmol/L 0.4-2.0 [facility] ([facility]) <content>note:<nlbl:demographic_changed> </content>
<content>Y/N query for Sepsis Lactate Rule: Y</content>
<content></content> ID Date Data Source [id number] 09/02/2019 12:48:00 PM EST [facility] ([facility]) Name Value Range Interpretation Code Description Data Amber rce(s) Supporting Document(s) Glucose, Fasting 88 mg/dL 70-100 [facility] ([facility]) Blood Urea Nitrogen 15 mg/dL 7-18 [facility] ([facility]) Sodium Level 138 meq/L 136-145 [facility] ([facility]) Creatinine For GFR 1.66 mg/dL 0.55-1.30 [facility] ([facility]) Glomerular Filtration Rate 32.2 [facility] ([facility]) <content>Units are mL/min/1.73 m2</content>
<content></content>
<content>Chronic Kidney Disease Staging per NKF:</content>
<content></content>
<content>Stage I & II GFR >=60 Normal to Mildly Decreased</content>
<content>Stage III GFR 30- 59 Moderately Decreased</content>
<content>Stage IV GFR 15-29 Severely Decreased</content>
<content>Stage V GFR <15 Very Little GFR Left</content>
<content>ESRD GFR <15 on RACE STARTER</content>
<content></content> Carbon Dioxide Level 23 meq/L 21-32 [facility] ([facility]) Anion Gap 7 meq/L 8-16 [facility] Potassium Serum 4.3 meq/L 3.5-5.1 [facility] ([facility]) Chloride Level 108 meq/L 98-107 [facility] ([facility]) Calcium Level 8.0 mg/dL 8.8-10.2 [facility] ([facility]) ID Date Data Source [id number] 09/02/2019 12:48:00 PM EST [facility] ([facility]) Name Value Range Interpretation Code Description Data Amber rce(s) Supporting Document(s) White Blood Count 12.6 10 4.0-10.0 [facility] ([facility]) Hematocrit 36.0 % 36.0-47.0 [facility] ([facility]) Red Blood Count 3.85 10 4.00-5.40 [facility] ([facility]) Hemoglobin 10.8 g/dL 12.0-15.5 [facility] ([facility] Red Cell Distribution Width 16.1 % 11.5-14.5 [facility] ([facility]) Mean Corpuscular HGB Conc 30.0 g/dL 32.0-36.5 [facility] ([facility]) Mean Corpuscular Hemoglobin 28.1 pg 27.0-33.0 [facility] ([facility]) Mean Corpuscular Volume 93.5 fl 80.0-96.0 [facility] ([facility]) Lymph % 16.7 % 24.0-44.0 [facility]) Platelet Count, Automated 481 10 150-450 [facility] ([facility]) Neutrophils % 64.1 % 36.0-66.0 [facility] ([facility]) Baso % 0.7 % 0.0-1.0 [facility] Eos % 12.8 % 0.0-3.0 [facility]) [place] % 5.2 % 0.0-5.0 [facility] Lymph # 2.1 10 1.5-5.0 [facility] Neutrophils # 8.1 10 1.5-8.5 [facility] ([facility]) Immature Granulocyte % 0.5 % 0-3.0 [facility] ([facility]) Nucleated Red Blood Cell % 0.0 % 0-0 [facility] ([facility]) Eos # 1.6 10 0.0-0.5 [facility] Baso # 0.1 10 0.0-0.2 [facility]) [place] # 0.7 10 0.0-0.8 [facility]) ID Date Data Source [id number] 08/07/2019 10:04:30 PM EST [facility] Name Value Range Interpretation Code Description Data Amber rce(s) Supporting Document(s) &PDF [facility] SWILVl3oNzNYOvAm16/YAKgpENUdq0PtOZfvWMi3OTllRFMmW4VmpKqcQWBBBFMCG14eII7UPHCNDMSf yKE [file] uQFZ4txWMvEUkOzmG4shv/6isYC/Q9ID6ArLHC1+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 [employer]ANS [file] +NIsRhTGCSUNVkLQHzVL7Iz3y7n/RfXYwRvF7VJfq0fy2ItJIO8WCkNHK4UopdtFrN0rM+ZkEKGl+Director Integrated [file] AgICAgICAgICAgICAgICAgICAgICAgICAgICAgICAgICAgICAgICAgICAgICAgICAgICAgICAgICAgIC AgICAgICAgICANCiAgICAgICAgICAgICAgICAgICAg ICAgICAgICAgICAgICAgICAgICAgICAgICAgICAgICAgICAgICAgICAgICAgICAgICAgICAgICAgICAg ICAgICAgICAgICAgICAgICAgICANCiAgICAgICAgICAgICAgICAgICAgICAgICAgICAgICAgICAgICAg ICAgICAgICAgICAgICAgICAgICAgICAgICAgICAgIC AgICAgICAgICAgICAgICAgICAgICAgICAgICAgICANCiAgICAgICAgICAgICAgICAgICAgICAgICAgIC AgICAgICAgICAgICAgICAgICAgICAgICAgICAgICAgICAgICAgICAgICAgICAgICAgICAgICAgICAgIC AgICAgICAgICAgICANCiAgICAgICAgICAgICAgICAg ICAgICAgICAgICAgICAgICAgICAgICAgICAgICAgICAgICAgICAgICAgICAgICAgICAgICAgICAgICAg ICAgICAgICAgICAgICAgICAgICAgICANCiAgICAgICAgICAgICAgICAgICAgICAgICAgICAgICAgICAg ICAgICAgICAgICAgICAgICAgICAgICAgICAgICAgIC AgICAgICAgICAgICAgICAgICAgICAgICAgICAgICAgICANCiAgICAgICAgICAgICAgICAgICAgICAgIC AgICAgICAgICAgICAgICAgICAgICAgICAgICAgICAgICAgICAgICAgICAgICAgICAgICAgICAgICAgIC AgICAgICAgICAgICAgICANCiAgICAgICAgICAgICAg ICAgICAgICAgICAgICAgICAgICAgICAgICAgICAgICAgICAgICAgICAgICAgICAgICAgICAgICAgICAg ICAgICAgICAgICAgICAgICAgICAgICAgICANCiAgICAgICAgICAgICAgICAgICAgICAgICAgICAgICAg ICAgICAgICAgICAgICAgICAgICAgICAgICAgICAgIC AgICAgICAgICAgICAgICAgICAgICAgICAgICAgICAgICAgICANCiAgICAgICAgICAgICAgICAgICAgIC AgICAgICAgICAgICAgICAgICAgICAgICAgICAgICAgICAgICAgICAgICAgICAgICAgICAgICAgICAgIC AgICAgICAgICAgICAgICAgICANCjw/cIDvJ5ponJEc zmV4I0akMw0DCm2HDF8gm9HuKZUtSFocodCkGtiXXtSgYQAmGjeZBea6OIjlIM7EfITtT6YeJ8PfWVmp JI0CLTRtBOIhuDTjFLWoAYRxTyS0RSIaWAuuQB3QgURmUUtpUTUsEHFlKzKwBQMtKU9VHCSuO964fdBm Rr2JPz9ZIxUnCZ7uov3ERvJzYKZnLosJIsg9GRuvKT 9OoBMqL0RvbSDoh9rSFiIsH8MTVABwCZFxFh1CGMJjWmDeSDDyWZxsOV5aFEFxFHFKcQmpnjK3GO7JXE 9nlzSvNL0ZIrGaXt8nJg1YPhObL1MdG0WaROChUTGERDehRR7FVEFnVKI4EBYwCkKxYZLRLcRsH24eFH 5LI0Vwy85kLgY7VOWyTgOdTAdgMT93zPjzbmBddETd mOtfFR9MBt7+CCdxbqAhMiwXQrfeHMYJAbHnTxPWUgWzEVKpUVGcGKXbSoL5SlVkPy2DRCMlPGUqEYHm TgWhUEJrANDgDFnfTKLuGNm3ZaTbNQNrLNFrBM8KEzQwDUVyDTglJCCuZRHbNDQpri5WETSxEAItVCC4 JnTjRRGqQUPvINphVMNqADLwBEB2XRPrRHEiEH1JZr NrFUGnISE8ZgCvLEYgTSZxum0VTROwJGBxSLY5BHKtRZIkZRKpUAlkXBHzZUL7JHd2NHMkDZQfZX6MDx SrWLJrEUS7XaSeUJMyHSHeot7TNTCpHUPpHceqGbFmKSLwLHPoSCbwBZDiXKS5TGCmRREwCUBfOY8ZBj ZgBCIcKFr9XFEhEMAhULExpr4WSHJfWANuHXU9QZHq TNEjMJSrVWxyVLOfHMA8SrDmSTHhFWGxXK0OLiNiJKYdKTCrWZxoFJMrEDCopc8ZFGVkOHGeRfUvZtFg MIJoVGBaLTkcJIPfLSMqTpR0MWVoGJObAW2HVuEtDBYlNFB7MIfkMYHuJIWaey9EUIBgOXGqPHLlEBUs HAYzIDVxVMjnVODwTSJ8HZb6QMPhWWDuEV5CHzHhWR AuLCMqHgExFMQuHKArmi5NJGZbUJAgBLOkPOYtGNNiYTJvMYggSHDdQIErDBU8MFZxSHCdDE9ZEsVsRL JlJuUcGwnmMXMoUFZwfw5FXBEhYUKnFZU6UMHxZQYgZPLuMIknNNWoNLC6SNDmRFCjGKNaHO1BDoYwAM YaRGUjXCngEMUvBEIagy9XFWWgBED8DdE9BHNjZHWc WEFsNIskOTOrIDq5OMQ2MAJfLSIrVW2BHeLzTBMnRODrKFxdEQAbWUKvkc0NVOGsPDU6FgI7IOQdILPc TPOuGPumSXJpEXz7HAYqALUyYSXgUG3CMtBbOVMjPNrqIDlnTYVfVYPsfz1TbNVdpRvgrr0KRDfYJw8C zJoqGWC3FEioIq8rcRVmZjZoTEIVFa2BwyOlKLRcNM PJNYrmUMXsYANxCjbdPmZ5GLh6EfFmBXu9N5DdLMWbLXBzCUXtNAWiZqJ7NGKzV8K6KedsUFehWPO8QN ogRIY4TjErFOSjMiJ0WwO+YM5fRPn+Vx5Zq9EfylX9biPgJCi8OSK8VQ6OWKFJR5CREk== Procedure Social History Code Duration Value Status Description Data Source(s ) Smoking 07/13/2020 12:00:00 AM EST Current Smoker completed Curre nt Smoker eCW1 ([facility]) Smoking 07/13/2020 12:00:00 AM EST Current Smoker completed Curre nt Smoker eCW1 ([facility]) Smoking 06/24/2020 12:00:00 AM EST Current Smoker completed Curre nt Smoker eCW1 ([facility]) Alcohol intake 06/12/2020 12:00:00 AM EST Never completed [facility] Smoking 06/12/2020 12:00:00 AM EST Current every day smoker co mpleted Current every day smoker [facility] Smoking 06/04/2020 12:00:00 AM EST Current Smoker completed Curre nt Smoker eCW1 ([facility]) Smoking 06/04/2020 12:00:00 AM EST Current Smoker completed Curre nt Smoker eCW1 ([facility]) Smoking 06/04/2020 12:00:00 AM EST Current Smoker completed Curre nt Smoker eCW1 ([facility]) Smoking 05/19/2020 12:00:00 AM EST Current Smoker completed Curre nt Smoker eCW1 ([facility]) Smoking 05/19/2020 12:00:00 AM EST Current Smoker completed Curre nt Smoker eCW1 ([facility]) Smoking 05/05/2020 12:00:00 AM EST Current Smoker completed Curre nt Smoker eCW1 ([facility]) Smoking 05/05/2020 12:00:00 AM EST Current Smoker completed Curre nt Smoker eCW1 ([facility]) Smoking 01/21/2020 12:00:00 AM EDT Current Smoker completed Curre nt Smoker eCW1 ([facility]) Vital Signs ID Date Data Source UNK Name Value Range Interpretation Code Description Data Source(s) Body mass index (BMI) [Ratio] 27.9 kg/m2 27.9 k g/m2 MEDENT ([facility]) Body weight 160.00 [lb_av] 160.00 [lb_av] MEDEN T ([facility]) Body height 63.5 [in_i] 63.5 [in_i] MEDENT ([facility]) 5'3.50" Body temperature 96.3 [degF] 96.3 [degF] MEDENT ([facility]) Diastolic blood pressure 68 mm[Hg] 68 mm[Hg] eCW1 ([facility]) Systolic blood pressure 128 mm[Hg] 128 mm[Hg] e CW1 ([facility]) Body temperature 98.2 [degF] 98.2 [degF] eCW1 ( [facility]) Respiratory rate 18 /min 18 /min eCW1 ([facility]) Heart rate 76 /min 76 /min eCW1 ([facility]) Body mass index (BMI) [Ratio] 28.11 kg/m2 28.11 kg/m2 eCW1 ([facility]) Body height 64 [in_i] 64 [in_i] eCW1 ([facility]) Body weight 74.3 kg 74.3 kg eCW1 ([facility]) Body weight 163.8 [lb_av] 163.8 [lb_av] eCW1 ([facility]) Diastolic blood pressure 68 mm[Hg] 68 mm[Hg] eCW1 ([facility]) Systolic blood pressure 128 mm[Hg] 128 mm[Hg] e CW1 ([facility]) Body temperature 97.2 [degF] 97.2 [degF] eCW1 ( [facility]) Respiratory rate 20 /min 20 /min eCW1 ([facility]) Heart rate 105 /min 105 /min eCW1 ([facility]) Body mass index (BMI) [Ratio] 27.94 kg/m2 27.94 kg/m2 eCW1 ([facility]) Body height 64 [in_i] 64 [in_i] eCW1 ([facility]) Body weight 73.8 kg 73.8 kg eCW1 ([facility]) Body weight 162.8 [lb_av] 162.8 [lb_av] eCW1 ([facility]) Body temperature 96.4 [degF] 96.4 [degF] MEDENT ([facility]) Diastolic blood pressure 74 mm[Hg] 74 mm[Hg] [facility] Systolic blood pressure 124 mm[Hg] 124 mm[Hg] [facility] Oxygen saturation in Arterial blood by Pulse oximetry 98 % 98 % [facility] Body mass index (BMI) [Ratio] 28.34 kg/m2 28.34 kg/m2 [facility] Body weight 72.576 kg 72.576 kg [facility] Heart rate 92 /min 92 /min [facility] Diastolic blood pressure 66 mm[Hg] 66 mm[Hg] eCW1 ([facility]) Systolic blood pressure 124 mm[Hg] 124 mm[Hg] e CW1 ([facility]) Body temperature 97.8 [degF] 97.8 [degF] eCW1 ( [facility]) Respiratory rate 18 /min 18 /min eCW1 ([facility]) Heart rate 64 /min 64 /min eCW1 ([facility]) Body mass index (BMI) [Ratio] 27.63 kg/m2 27.63 kg/m2 W1 ([facility]) Body height 64 [in_i] 64 [in_i] eCW1 ([facility]) Body weight 73.0 kg 73.0 kg eCW1 ([facility]) Body weight 161.0 [lb_av] 161.0 [lb_av] eCW1 ([facility]) Body mass index (BMI) [Ratio] 28.0 kg/m2 28.0 k g/m2 MEDENT ([facility]) Oxygen saturation in Arterial blood by Pulse oximetry 96 % 96 % MEDRICK ([facility]) Air Body weight 158.00 [lb_av] 158.00 [lb_av] ANITHA T ([facility]) Body height 63 [in_i] 63 [in_i] MEDRICK ([facility]) 5'3" Diastolic blood pressure 82 mm[Hg] 82 mm[Hg] MEDENT ([facility]) Systolic blood pressure 138 mm[Hg] 138 mm[Hg] M EDENT ([facility]) Body temperature 96.0 [degF] 96.0 [degF] MEDENT ([facility]) Body mass index (BMI) [Ratio] 27.12 kg/m2 27.12 kg/m2 eCW1 ([facility]) Body height 64 [in_i] 64 [in_i] eCW1 ([facility]) Body weight 158 [lb_av] 158 [lb_av] eCW1 ([facility]) Diastolic blood pressure 68 mm[Hg] 68 mm[Hg] eCW1 ([facility]) Systolic blood pressure 130 mm[Hg] 130 mm[Hg] e CW1 ([facility]) Body mass index (BMI) [Ratio] 27.12 kg/m2 27.12 kg/m2 eCW1 ([facility]) Body height 64 [in_i] 64 [in_i] eCW1 ([facility]) Body weight 158 [lb_av] 158 [lb_av] eCW1 ([facility]) Body temperature 97.8 [degF] 97.8 [degF] eCW1 ( [facility]) Respiratory rate 18 /min 18 /min eCW1 ([facility]) Heart rate 53 /min 53 /min eCW1 ([facility]) Body mass index (BMI) [Ratio] 26.71 kg/m2 26.71 kg/m2 eCW1 ([facility]) Body height 64 [in_i] 64 [in_i] eCW1 ([facility]) Body weight 70.6 kg 70.6 kg eCW1 ([facility]) Body weight 155.6 [lb_av] 155.6 [lb_av] eCW1 ([facility]) Body mass index (BMI) [Ratio] 28.5 kg/m2 28.5 k g/m2 MEDENT ([facility]) Body weight 161.00 [lb_av] 161.00 [lb_av] KADENEN T ([facility]) Body height 63 [in_i] 63 [in_i] [facility] 5'3" Heart rate 63 /min 63 /min [facility]) Diastolic blood pressure 56 mm[Hg] 56 mm[Hg] [facility] ([facility]) Systolic blood pressure 102 mm[Hg] 102 mm[Hg] [facility] ([facility]) Body mass index (BMI) [Ratio] 28.3 kg/m2 28.3 k g/m2 [facility] ([facility]) Oxygen saturation in Arterial blood by Pulse oximetry 97 % 97 % [facility] ([facility]) Air Body weight 160.00 [lb_av] 160.00 [lb_av] [facility] Body height 63 [in_i] 63 [in_i] [facility] ([facility]) 5'3" Heart rate 73 /min 73 /min [facility] ([facility]) Diastolic blood pressure 60 mm[Hg] 60 mm[Hg] [facility] ([facility]) Systolic blood pressure 118 mm[Hg] 118 mm[Hg] [facility] ([facility]) Body weight 72.746 kg 72.746 kg [facility] ([facility]) Body mass index (BMI) [Ratio] 27.5 kg/m2 27.5 k g/m2 [facility] ([facility]) Body weight 160.38 [lb_av] 160.38 [lb_av] [facility] Body height 64 [in_i] 64 [in_i] [facility] ([facility]) 5'4" Body temperature 98.1 [degF] 98.1 [degF] [facility] ([facility]) Diastolic blood pressure 87 mm[Hg] 87 mm[Hg] [facility] ([facility]) Systolic blood pressure 147 mm[Hg] 147 mm[Hg] [facility] ([facility]) Body mass index (BMI) [Ratio] 28.2 kg/m2 28.2 k g/m2 [facility] ([facility]) Oxygen saturation in Arterial blood by Pulse oximetry 98 % 98 % [facility] ([facility]) RM Air Body weight 159.00 [lb_av] 159.00 [lb_av] MEDEN T ([facility]) Body height 63 [in_i] 63 [in_i] [facility] ([facility]) 5'3" Heart rate 86 /min 86 /min [facility] ([facility]) Diastolic blood pressure 84 mm[Hg] 84 mm[Hg] [facility] Systolic blood pressure 130 mm[Hg] 130 mm[Hg] [facility] ([facility]) Body weight 73.540 kg 73.540 kg [facility] ([facility]) Body mass index (BMI) [Ratio] 27.8 kg/m2 27.8 k g/m2 [facility] ([facility]) Body weight 162.12 [lb_av] 162.12 [lb_av] [facility] Body height 64 [in_i] 64 [in_i] [facility] ([facility]) 5'4" Diastolic blood pressure 62 mm[Hg] 62 mm[Hg] [facility] ([facility]) Systolic blood pressure 108 mm[Hg] 108 mm[Hg] [facility] ([facility]) Body mass index (BMI) [Ratio] 28.3 kg/m2 28.3 k g/m2 [facility] ([facility]) Oxygen saturation in Arterial blood by Pulse oximetry 98 % 98 % [facility] ([facility]) RM Air Body weight 160.00 [lb_av] 160.00 [lb_av] MEDEN T ([facility]) Body height 63 [in_i] 63 [in_i] [facility] ([facility]) 5'3" Heart rate 84 /min 84 /min [facility] ([facility]) Diastolic blood pressure 90 mm[Hg] 90 mm[Hg] [facility] ([facility]) Systolic blood pressure 140 mm[Hg] 140 mm[Hg] [facility] ([facility]) Body mass index (BMI) [Ratio] 29.6 kg/m2 29.6 k g/m2 [facility] ([facility]) Oxygen saturation in Arterial blood by Pulse oximetry 97 % 97 % [facility] ([facility]) Air Body weight 167.00 [lb_av] 167.00 [lb_av] MEDEN T ([facility]) Body height 63 [in_i] 63 [in_i] [facility] ([facility]) 5'3" Heart rate 66 /min 66 /min [facility] Diastolic blood pressure 84 mm[Hg] 84 mm[Hg] [facility] Systolic blood pressure 140 mm[Hg] 140 mm[Hg] [facility] ([facility]) Body weight 72.746 kg 72.746 kg [facility] ([facility]) Body mass index (BMI) [Ratio] 27.5 kg/m2 27.5 k g/m2 [facility] ([facility]) Body weight 160.38 [lb_av] 160.38 [lb_av] [facility] Body height 64 [in_i] 64 [in_i] [facility]) 5'4" Diastolic blood pressure 83 mm[Hg] 83 mm[Hg] [facility] ([facility]) Systolic blood pressure 152 mm[Hg] 152 mm[Hg] [facility] ([facility]) Body mass index (BMI) [Ratio] 28.7 kg/m2 28.7 k g/m2 [facility] ([facility]) Oxygen saturation in Arterial blood by Pulse oximetry 98 % 98 % [facility] ([facility]) Body weight 162.00 [lb_av] 162.00 [lb_av] [facility] Body height 63 [in_i] 63 [in_i] [facility] ([facility]) 5'3" Heart rate 96 /min 96 /min [facility] Diastolic blood pressure 60 mm[Hg] 60 mm[Hg] [facility] ([facility]) Systolic blood pressure 126 mm[Hg] 126 mm[Hg] [facility] ([facility]) Body mass index (BMI) [Ratio] 25.6 kg/m2 25.6 k g/m2 [facility] ([facility]) Body weight 149.00 [lb_av] 149.00 [lb_av] MEDEN T ([facility]) Body height 64 [in_i] 64 [in_i] MEDENT ([facility]) 5'4" Patient Treatment Plan of Care Planned Activity Planned Date Details Description Data Source (s) Losartan Potassium 25 MG Oral Tablet 06/05/2020 12:00:00 AM EST [facility] Famotidine 40 MG Oral Tablet 05/23/2020 12:00:00 AM EST [facility] Triamcinolone Acetonide 0.001 MG/MG Topical Ointment 12:00:00 AM EST eCW1 ([facility]) Triamcinolone Acetonide 0.001 MG/MG Topical Ointment 12:00:00 AM EST eCW1 ([facility]) Triamcinolone Acetonide 0.001 MG/MG Topical Ointment 12:00:00 AM EST eCW1 ([facility]) Triamcinolone Acetonide 0.001 MG/MG Topical Ointment 12:00:00 AM EST eCW1 ([facility]) Furosemide 20 MG Oral Tablet 07/24/2019 12:00:00 AM EST [facility] Metoprolol Tartrate 25 MG Oral Tablet 07/10/2019 12:00:00 AM EST [facility] quetiapine 25 MG Oral Tablet 06/13/2019 12:00:00 AM EST [facility] Losartan Potassium 50 MG Oral Tablet [facility]
[2020-08-01 00:30] LABS: BASO % 0.2 % (0.0-1.0); EOS # 0.1 10^3/uL (0.0-0.5); EOS % 0.6 % (0.0-3.0); HEMATOCRIT 24.1 % (36.0-47.0); HEMOGLOBIN 7.3 g/dl (12.0-15.5); LYMPH # 1.3 10^3/uL (1.5-5.0); LYMPH % 6.4 % (24.0-44.0); MEAN CORPUSCULAR HEMOGLOBIN 26.6 pg (27.0-33.0); MEAN CORPUSCULAR HGB CONC 30.3 g/dl (32.0-36.5); MONO # 1.2 10^3/uL (0.0-0.8); MONO % 5.8 % (0.0-5.0); NEUTROPHILS % 84.6 % (36.0-66.0); PLATELET COUNT, AUTOMATED 253 10^3/uL (150-450); RED BLOOD COUNT 2.74 10^6/uL (4.00-5.40)
[2020-08-01] MEDS ORDERED: NS 1,000 ML IV ONE (00:45)
[2020-08-01] MEDS ORDERED: ASPIRIN 81 MG CHEW TABLET PO ONE (00:45)
[2020-08-01 01:04] LABS: ALBUMIN 1.9 GM/DL (3.2-5.2); ALT/SGPT 7 U/L (12-78); BILIRUBIN,DIRECT 0.2 MG/DL (0.0-0.2); BILIRUBIN,TOTAL 0.2 MG/DL (0.2-1.0); BLOOD UREA NITROGEN 33 MG/DL (7-18); CALCIUM LEVEL 6.4 MG/DL (8.8-10.2); CARBON DIOXIDE LEVEL 17 MEQ/L (21-32); CHLORIDE LEVEL 111 MEQ/L (98-107); CK-MB VALUE MASS 2.9 NG/ML (<3.6); CPK CREATINE PHOSPHOKINASE 99 U/L (26-192); CREATININE FOR GFR 3.15 MG/DL (0.55-1.30); GLOMERULAR FILTRATION RATE 15.3 (>39); GLUCOSE, FASTING 109 MG/DL (70-100); MB/CK RELATIVE INDEX 2.93 (< OR =4); POTASSIUM SERUM 3.2 MEQ/L (3.5-5.1); SODIUM LEVEL 139 MEQ/L (136-145); THYROID STIMULATING HORMONE 0.179 uIU/ML (0.358-3.740); TOTAL PROTEIN 4.7 GM/DL (6.4-8.2); TROPONIN I < 0.02 NG/ML (< 0.10)
[2020-08-01] MEDS ORDERED: CALCIUM GLUCONATE 1,000 MG in D5W MINI-BAG PLUS 100 ML IV ONE (01:30)
[2020-08-01] MEDS ORDERED: POTASSIUM CHLORIDE 10 MEQ SR TABLET PO ONE (01:30)
[2020-08-01 02:16] LABS: RSV AMPLIFICATION NEGATIVE (NEGATIVE)
[2020-08-01] MEDS ORDERED: CALC20SPR (03:25)
[2020-08-01] MEDS ORDERED: CALC-190 PO (03:25)
[2020-08-01] MEDS ORDERED: ALEN35TA54 PO (03:25)
[2020-08-01] MEDS ORDERED: METH-1165 PO (03:31)
[2020-08-01] MEDS ORDERED: TIZA4CAP PO (03:31)
[2020-08-01] MEDS ORDERED: LIDO1PAD TOP (03:31)
[2020-08-01] MEDS ORDERED: CLOP75TA2 PO (03:31)
[2020-08-01] MEDS ORDERED: MED REC COMMENT (03:37)
[2020-08-01 04:21] LABS: ACETAMINOPHEN LEVEL 10.4 UG/ML (10.0-30.0); ETHYL ALCOHOL (ETHANOL) < 0.003 % (0.000-0.010); SALICYLATE LEVEL 3.2 MG/DL (5.0-30.0)
[2020-08-01] MEDS ORDERED: MAALOX 30 ML SUSP *UDC PO PRN (05:15)
[2020-08-01] MEDS ORDERED: SODIUM CHLORIDE 0.9% 1000ML IV SCH (05:15)
[2020-08-01] MEDS ORDERED: MOM 30ML SUSPENSION UDC PO PRN (05:15)
--- NOTE | 2020-08-01 05:20 | HPEPDOC ---
[facility] Medical History & Physical Date of Admission Aug 01, 2020 Date of Service: Aug 01, 2020 Primary Care Physician: HUANG BARKER M.D. Attending Physician: IRVIN DIAZ MD History and Physical TIME OF SERVICE: 520AM CHIEF COMPLAINT: lethargic HISTORY OF PRESENT ILLNESS: The patient was confused and unable to provide any meaningful history. The history was obtained via chart review and d/w . When this 75 yr old F was brought to the ER she was unresponsive; suspected that she took excess doses of her Xanax, robaxin, methocarbamon and gabapentin, but I was unable to confirm this with the patient. In addition to AMS, treated her for hypotension, UTI, hypokalemia and hypocalcemia with IVF, abx, KCl and Calcium gluconate. At the time of my evaluation she was more alert, and conversant but didnt know how she came to the hospital and couldnt tell me the events that had occurred last night and c/o that her back hurt and that she was feeling short of breath. REVIEW OF SYSTEMS: unobtainable bc the patient is confused PAST MEDICAL/ SURGICAL HISTORY: CKD3 Coronary artery disease status post stent Hypertension HLD Depression/anxiety COPD RLS HX of multiple CVAs GERD Chronic pain Total hysterectomy Coronary Artery stent placement Tonsillectomy Stomach reconstruction surgery FAMILY HISTORY: Father: Lung cancer. at 54 y/o Mother: HTN. at 75 y/o SOCIAL HISTORY: Patient is a smoker for5 cigarettes per day. Has been smoking for 30 years. Denies alcohol or drug use. Uses a walker and cane at baseline. Lives alone. ALLERGIES: Please see below. HOME MEDICATIONS: Please see below. PHYSICAL EXAMINATION: VITAL SIGNS: Please see below. GENERAL APPEARANCE: well nourished / well developed / NAD HEENT: EOMI CARDIOVASCULAR: RRR/NMRG LUNGS: using accessory muscles to breath / not coughing / breath sounds are diminished ABDOMEN: obese / soft & NT on palpation MUSCULOSKELETAL: GERMANIA x 4 INTEGUMENT: has generalized pallor NEUROLOGICAL: CN 2-12 intact / speech not dyarthric PSYCHIATRIC: A&O to person, but not place or time LABORATORY 08/01/20 00:18: Immature Granulocyte % (Auto) 2.4, Neutrophils (%) (Auto) 84.6H, Lymphocytes (%) (Auto) 6.4L, Monocytes (%) (Auto) 5.8H, Eosinophils (%) (Auto) 0.6, Basophils (%) (Auto) 0.2, Neutrophils # (Auto) 17.0H, Lymphocytes # (Auto) 1.3L, Monocytes # (Auto) 1.2H, Eosinophils # (Auto) 0.1, Basophils # (Auto) 0.0, Nucleated Red Blood Cells % (auto) 0.0, Anion Gap 11, Glomerular Filtration Rate 15.3L, Calcium Level 6.4L, Total Bilirubin 0.2, Direct Bilirubin 0.2, Aspartate Amino Transf (AST/SGOT) 5L, Alanine Aminotransferase (ALT/SGPT) 7L, Alkaline Phosphatase 74, Total Creatine Kinase 99, Creatine Kinase MB 2.9, Creatine Kinase MB Relative Index 2.93, Troponin I < 0.02, Total Protein 4.7L, Albumin 1.9L, Albumin/Globulin Ratio 0.7L, Thyroid Stimulating Hormone (TSH) 0.179L, Salicylates Level 3.2L, Acetaminophen Level 10.4, Ethyl Alcohol Level < 0.003 08/01/20 00:23: POC Troponin I (Misc) 0.03 08/01/20 01:32: Coronavirus (COVID-19)(PCR) NEGATIVE, Influenza Type A (RT-PCR) NEGATIVE, Influe nza Type B (RT-PCR) NEGATIVE, Respiratory Syncytial Virus (PCR) NEGATIVE IMAGING: CT head IMPRESSION: No acute abnormality or significant change. CT cervical spine IMPRESSION: Scarring or lesion in the right upper lung apex measuring 2.2 cm. Correlate with priors or recommend follow-up. Chest xray IMPRESSION: No acute findings. MICROBIOLOGY: Respiratory panel & covid neg ASSESSMENT: is a 75 yr old w a hx of CVAs , MDD/LAVERNE , CAD w stents, COPD, , GERD, chronic pain, HTN and DLP who presented w encephalopathy likely due to taking multiple medications; the AMS is resolving she will be admitted for tx of TONEY, acute anemia & UTI. PLAN: 1. Encephalopathy Resolving. May have been a reaction to multiple meds and or infection Plan: admit to PCU / frequent neurochecks / hold alprazolam, duloxetine, famotidine, gabapentin, methocarbamol, tizanidine & quetiapine / treat UTI 2. Hypotension Likely due to infection and medications She has a hx of HTN Plan: hold metoprolol, losartan, amlodipine, nitroglycerin, pramipexole / IVF / treat infection 3. Acute COPD Possibly triggered by aspiration while she was unresponsive The chest xray and COVID are neg Plan: Solumedrol now / aspiration precautions / DuoNeb Q6H, Albuterol Q4HP, Prednisone / hold of PPI bc it can cause an increase in Cr 4. UTI Leukocytosis likely 2/2 UTI Plan: f/u UCx / c/w IV Ceftriaxone 5. TONEY on CKD 3 Based on clinic notes her PCP was of the opinion that the patient may have some sort of vasculitis and had made plans to refer the patient to Nephro for a biopsy. Hep B and C neg therefore unlikely she has cryoglobinemia Plan: f/u [facility] for FENa, PTH, Vitamin D, C3, C4, SPEP / IVF / hold losartan / Nephrology consult / hold ASA in case she needs biopsy this admission 6. Acute anemia Possibly 2/2 GI bleed and or chronic disease Plan: transfuse 1 unit of PRBCs to keep Hg > 8 bc of hx of CAD / f/u iron panel & stool occult, will ask day time team to f/u on results prior to GI consult & discuss Venofer and or EPO agent w Nephro once infection is treated 7. Hypokalemia She received KCl in the ER Will avoid giving additional supplementation to avoid over correction in the setting of TONEY on CKD Plan: f/u repeat K, Mg and Ca 8. Hypocalcemia Corrected Ca++ for low albumin is 8 She received Ca gluconate in the ER Plan: f/u repeat BMP, PTH, TSH and MG 9. Non-anion gap metabolic acidosis Possibly due to RTA Plan: f/u [facility] for Urine anion gap and w Nephro to see if she needs bicarb supplementation 10.Lung lesion Plan: f/u w PCP for spiral CT +/- IR consult for biopsy if size is confirmed to be > 1 cm 11.Coronary artery disease status post stent / HLD / HX of multiple CVAs Plan: hold ASA 12. Osteoporosis Plan: hold alendronate bc GFR is <35 13.Depression/anxiety Plan: resume meds once mental status is back to baseline 14.Chronic Pain Plan: lidocaine patches / hold gabapentin & methocarbamol 15.Chronic Plaquenil use I was unable to find a diagnosis that correlates with the use of this med in recent notes; her PCP had mentioned that the patient had a positive RF and a rash and had made plans to refer her to Derm for a biopsy Plan; the day time team may contact the patients PCP for additional history /c/w Plaquenil DVT px w SCDs bc of anemia Dispo: home after at least 2 midnights stay Home Medications Scheduled Alendronate Sodium (Alendronate Sodium) 35 Mg Tablet, 35 MG PO QWEEK Amlodipine Besylate (Amlodipine Besylate) 5 Mg Tablet, 5 MG PO BID Aspirin (Aspirin EC) 81 Mg Tablet.dr, 81 MG PO DAILY Atorvastatin Calcium (Atorvastatin Calcium) 40 Mg Tablet, 40 MG PO DAILY Calcitonin Montrose (Calcitonin-Montrose) 3.7 Ml Blanchard.pump, 1 SPRAY NA DAILY Calcium Carbonate/Vitamin D3 (Calcium 1,000 + D3 Caplet) 1 Each Tablet, 1 TAB PO DAILY Duloxetine Hcl (Duloxetine HCl) 60 Mg Capsule.dr, 60 MG PO BID Famotidine (Famotidine) 40 Mg Tablet, 40 MG PO DAILY Gabapentin (Gabapentin) 300 Mg Capsule, 300 MG PO BID Hydroxychloroquine Sulfate (Hydroxychloroquine Sulfate) 200 Mg Tablet, 200 MG PO BID Lidocaine (Lidocaine) 5% Adh..patch, 1 PATCH TOP DAILY ON 12 HOURS OFF 12 HOURS Losartan Potassium (Losartan Potassium) 25 Mg Tablet, 25 MG PO DAILY Methocarbamol (Robaxin-750) 750 Mg Tablet, 1 TAB PO TID Metoprolol Tartrate (Metoprolol Tartrate) 25 Mg Tab, 25 MG PO DAILY Pramipexole Di-HCl (Pramipexole Dihydrochloride) 1 Mg Tablet, 1 MG PO QHS Quetiapine Fumarate (Quetiapine Fumarate) 25 Mg Tablet, 25 MG PO QHS Scheduled PRN Albuterol Sulfate (Ventolin Hfa) 18 Gm Hfa.aer.ad, 2 PUFF INH Q4H PRN for SOB/WHEEZING Alprazolam (Alprazolam) 0.5 Mg Tablet, 0.5 MG PO QHS PRN for ANXIETY/AGITATION Fluticasone Propionate (Fluticasone Propionate) 16 Gm Blanchard.susp, 1 SPRAY NARES DAILY PRN for CONGESTION Methocarbamol (Methocarbamol) 750 Mg Tablet, 750 MG PO TID PRN for MUSCLE SPASMS Nitroglycerin (Nitroglycerin) 0.4 Mg Sub, 0.4 MG SL NITRO PRN for CHEST PAIN Tizanidine HCl (Tizanidine HCl) 4 Mg Capsule, 4 MG PO TID PRN for MUSCLE SPASMS Miscellaneous Medications [Med Rec Comment] USED EXTERNAL MED HISTORY AND LAST DISCHARGE FROM 07/22/20 Allergies Coded Allergies: No Known Allergies (Unverified , 12/19/18) A-FIB/CHADSVASC A-FIB History Current/History of A-Fib/PAF?: No Current PO Anticoag Therapy: No IRVIN DIAZ MD Aug 01, 2020 05:20
--- OUTSIDE RECORDS SUMMARY | 2020-08-01 05:27 | CCD ---
Author Author [facility] Address Unknown Phone Unavailable Care Team Providers Care Custom Studio Coordinator Name Role Phone Koffi, Kaylene DO Unavailable [...] DO Unavailable Unavailable Kocan, J Maria Elena MUSHROOM SPAWN MAKER Unavailable Unavailable Kocan, J Maria Elena MUSHROOM SPAWN MAKER Unavailable Unavailable Kocan, J Maria Elena MUSHROOM SPAWN MAKER Unavailable Unavailable Kocan, J Maria Elena MUSHROOM SPAWN MAKER Unavailable Unavailable Kocan, J Maria Elena MUSHROOM SPAWN MAKER Unavailable Unavailable Kocan, J Maria Elena MUSHROOM SPAWN MAKER Unavailable Unavailable Kocan, J Maria Elena MUSHROOM SPAWN MAKER Unavailable Unavailable Kocan, J Maria Elena MUSHROOM SPAWN MAKER Unavailable Unavailable Kocan, J Maria Elena MUSHROOM SPAWN MAKER Unavailable Unavailable Kocan, J Maria Elena MUSHROOM SPAWN MAKER Unavailable Unavailable Kocan, J Maria Elena MUSHROOM SPAWN MAKER Unavailable Unavailable Kocan, J Maria Elena MUSHROOM SPAWN MAKER Unavailable Unavailable Kocan, J Maria Elena MUSHROOM SPAWN MAKER Unavailable Unavailable Koffi, Kaylene DO Unavailable Unavailable [...] Unavailable Clark, L Radha RPA Unavailable Unavailable Clakr, L Radha RPA Unavailable Unavailable Clark, L [...] Unavailable Unavailable RODRI, JAYSON CURRIE Unavailable Unavailable RORDI, JAYSON CURRIE Unavailable Unavailable RODRI, JAYSON CURRIE Unavailable Unavailable RODRI, JAYSON CURRIE Unavailable Unavailable RODRI, JAYSON CURRIE Unavailable Unavailable RODRI, JAYSON CURRIE Unavailable Unavailable RODRI, JAYSON CURRIE Unavailable Unavailable RODRI, JAYSON CURRIE Unavailable Unavailable RODRI, JAYSON CURRIE Unavailable Unavailable RODRI, JAYSON CURRIE Unavailable Unavailable RODRI, JYASON CURRIE Unavailable Unavailable RODRI, JAYSON CURRIE Unavailable [...] is protected by Article 27-F of the [facility] Public Health law. If you continue you may have access to information: Regarding HIV / AIDS; Provided by facilities licensed or operated by the [facility] Office of Mental Health; or Provided by the [facility] Office for People With Developmental Disabilities. If such information is present, then the following [facility] mandated warning applies: This [...] law may result in a fine or assisted sentence or both. A general authorization for the release of medical or other information is NOT sufficient authorization for further disc losure. Family History Family Member Name Family Member Gender Family Member Status Date o f Status Description Data Source(s) Unknown Unknown Problem MEDENT ([facility] ) Unknown Unknown Problem MEDENT ([facility]) Unknown Unknown Problem MED[facility] ([facility]) Unknown Unknown Problem MEDENT ([facility]) Unknown Unknown Problem MEDENT ([facility] ) Encounters Encounter Providers Location Date Indications Data Source(s ) Unknown [address] [place] [id number] 07/28/2020 12:00:00 AM EST eCW1 ([facility]) Office Visit, Est Pt., Level [address] [facility] [place] [address] 07/13/2020 12:00:00 AM EST eCW1 ([facility]) Office Visit Attender: Cruzito Tan MD Main office - [facility] 07/01/2020 01:45:00 PM EST MEDENT ([facility] ) Office Visit, Est Pt., Level 5 [facility] [address] [place] [address] 06/24/2020 12:00:00 AM EST eCW1 ([facility]) Outpatient Attender: FIGUEROA VAZ Physical Therapy 06/18/2020 0 9:45:00 AM EST MEDENT ([facility] ) Outpatient Attender: Maria Elena CORNELIUSP.ISRRAEL-SJP.IRSRAEL 2019 12:00:00 AM EST - 06/12/2020 02:38:[address] [facility] Unknown [address] [facility] [address] 06/09/2020 12:00:00 AM EST eCW1 ([facility]) Unknown [address] [facility] [address] 06/08/2020 12:00:00 AM EST eCW1 [facility]) Office Visit, Est Pt., Level 5 [address] [place] [address] 06/04/2020 12:00:00 AM EST eCW1 ([facility]) Outpatient Attender: Kaylene Desir 05/26 01:00:00 PM EST MEDENT ([facility] ) Unknown [address] [facility] [address] 05/21/2020 12:00:00 AM EST eCW1 ([facility]) Outpatient [address] [facility] [place] [address] 05/19/2020 12:00:00 AM EST eCW1 ([facility]) Unknown [address] [facility] [address] 05/12/2020 12:00:00 AM EST eCW1 ([facility]) Outpatient [address] [facility] [place] [address] 05/05/2020 12:00:00 AM EST eCW1 ([facility]) Outpatient Attender: FIGUEROA VAZ Physical Therapy 04/28/2020 0 3:15:00 PM EDT MEDENT ([facility]) Office Visit Attender: Cruzito Tan MD Main office - [place] 01/28/2020 02:00:00 PM EDT MEDENT ([facility]) Outpatient [address] [facility] [address] 01/21/2020 12:00:00 AM EDT eCW1 ([facility]) Outpatient Referrer: Kaylene Rain DO 12/23/2019 07:50:00 AM EDT [facility] Outpatient Attender: Kaylene Desir 12/18 02:00:00 PM EDT MEDENT ([facility] ) Outpatient Attender: JAYSON CRUZ 0 12:00:00 AM EDT - 10/24/2019 09:09:45 AM EDT [facility] Outpatient Attender: Kaylene Koffi HERNÁNDEZ Gwyn Parrahema 10/21 02:45:00 PM EDT MEDENT ([facility] ) Outpatient Referrer: Kaylene Rain DO 10/10/2019 01:59:00 PM EDT [facility] Outpatient Referrer: Kaylene Rain DO 10/02/2019 03:18:00 PM EDT [facility] Outpatient Referrer: Kaylene Rain DO 10/02/2019 10:31:00 AM EDT [facility] Outpatient Attender: Kaylene Baronelarry HERNÁNDEZ Gwyn Parrahema 09/22 02:45:00 PM EDT MEDENT ([facility] ) Outpatient Attender: Radha Clark RPA Angelica/[place]/R eindl 09/17/2019 11:00:00 AM EDT MEDENT ([facility] Outpatient Attender: Kaylene Koffi HERNÁNDEZ Gwyn Underwoodeliot 09/05 01:00:00 PM EST MEDENT ([facility] ) Outpatient Referrer: JAYSON CRUZ 08/07/2019 12:00:00 AM EST [facility] Outpatient Attender: Kaylene Koffi HERNÁNDEZ Gwyn Underwoodeliot 07/23 12:30:00 PM EST MEDENT ([facility] ) Outpatient Attender: JAYSON MACE MDConsultant: JAYSON Avitia JP.WAT-SJP 07/10/2019 12:22:38 PM EST - 07/10/2019 02:02:15 PM EST [facility] Outpatient Referrer: Kaylene Rain DO 07/08/2019 02:11:00 PM EST [facility] Outpatient Attender: Radha Clark RPA Angelica/[place]/R eindl 06/19/2019 10:15:00 AM EST MEDENT ([facility]) Outpatient Attender: Kaylene Desir 06/17 01:30:00 PM EST MEDENT ([facility] ) Outpatient Referrer: Kaylene Rain DO 06/14/2019 02:15:00 PM EST [facility] Outpatient Attender: Cruzito Tan MD Main office - [place] 06/12/2019 12:30:00 PM EST MEDENT ([facility] Immunizations Vaccine Date Status [...] Hydrocodone-Acetaminophen 07/29/2020 12:00:00 AM EST active MEDENT ([facility]) tizanidine 4 MG Oral Capsule Tizanidine HCL 07/29/2020 12:00:00 AM EST ORAL active MED[facility] ([facility]) 4 mg 07/29/2020 [...] 07/23/2020 12:00:00 AM EST ORAL completed MEDENT ([facility]) 35 mg 07/22/2020 12:00:00 AM EST [...] A DAY FOR 10 DAYS SOLD: 07/07/2020 [facility] 25 mg 07/02/2020 12:00:00 AM EST tablet 90 TAKE ONE TABLET BY MOUTH EVERY DAY AT BEDTIME TAKE ONE TABLET BY MOUTH EVERY DAY AT BEDTIME SOLD: 07/02/2020 [facility] 75 mg 07/02/2020 12:00:00 AM EST tablet 90 TAKE ONE TABLET BY MOUTH EVERY DAY TAKE ONE TABLET BY MOUTH EVERY DAY SOLD: 07/02/2020 [facility] 50 mg 06/30/2020 12:00:00 AM EST tablet 10 TAKE ONE TABLET BY MOUTH TWICE A DAY FOR PAIN MAXIMUM DAILY DOSE = 2 TABLETS TAKE ONE TABLET BY MOUTH TWICE A DAY FOR PAIN MAXIMUM DAILY DOSE = 2 TABLETS SOLD: 06/30/2020 [facility] 1 mg 06/22/2020 12:00:00 AM EST tablet 60 TAKE 2 TABLETS BY MOUTH AT NIGHT BEFORE BEDTIME TAKE 2 TABLETS BY MOUTH AT NIGHT BEFORE BEDTIME SOLD: 2019 [facility] 50 mg 06/17/2020 12:00:00 AM EST tablet 10 TAKE ONE TABLET BY MOUTH TWICE A DAY FOR PAIN MAXIMUM DAILY DOSE = 2 TABLETS TAKE ONE TABLET BY MOUTH TWICE A DAY FOR PAIN MAXIMUM DAILY DOSE = 2 TABLETS SOLD: 06/17/2020 [facility] Alpraz[facility]am 0.5 MG Oral Tablet ALPRAZOLAM 06/14/2020 12:00:00 AM EST ta blet 30 TAKE ONE TABLET BY MOUTH AT BEDTIME NEEDED MAXIMUM DAILY DOSE = 1 TABLETS TAKE ONE TABLET BY MOUTH AT BEDTIME NEEDED MAXIMUM DAILY DOSE = 1 TABLETS SOLD: 06/14/2020 [facility] Alprazolam 0.5 MG Oral Tablet ALPRAZOLAM 06/10/2020 12:00:00 AM EST ta blet 30 TAKE ONE TABLET BY MOUTH AT BEDTIME NEEDED MAXIMUM DAILY DOSE = 1 TABLETS TAKE ONE TABLET BY MOUTH AT BEDTIME NEEDED MAXIMUM DAILY DOSE = 1 TABLETS SOLD: 06/11/2020 [facility] 50 mg 06/08/2020 12:00:00 AM EST [...] active Take 25 mg by mouth daily [facility] 50 mg 06/02/2020 12:00:00 AM EST [...] 12:00:00 AM EST ORAL active M ORTEGA ([facility]) 25 mg 05/25/2020 12:00:00 AM EST [...] active Take 40 mg by mouth daily [facility] 50 mg 05/20/2020 12:00:00 AM EST [...] active Triamcinolone Aceton zita 0.1 % eCW1 ([facility]) Triamcinolone Acetonide 0.001 MG/MG Topi regina Ointment Triamcinolone Acetonide 0.1 % Triamcinolone Acetonide 0.1 % 05/19/2020 12:00:00 AM EST 1.0 {application} active Triamcinolone Aceton zita 0.1 % eCW1 ([facility]) Triamcinolone Acetonide 0.001 MG/MG Topi regina Ointment Triamcinolone Acetonide 0.1 % Triamcinolone Acetonide 0.1 % 05/19/2020 12:00:00 AM EST 1.0 {application} active Triamcinolone Aceton zita 0.1 % eCW1 ([facility]) Triamcinolone Acetonide 0.001 MG/MG Topi regina Ointment Triamcinolone Acetonide 0.1 % Triamcinolone Acetonide 0.1 % 05/19/2020 12:00:00 AM EST 1.0 {application} active Triamcinolone Aceton zita 0.1 % eCW1 ([facility]) Triamcinolone Acetonide 0.001 MG/MG Topi regina Ointment Triamcinolone Acetonide 0.1 % Triamcinolone Acetonide 0.1 % 05/19/2020 12:00:00 AM EST 1.0 {application} active Triamcinolone Aceton zita 0.1 % eCW1 ([facility]) 1 mg 05/19/2020 12:00:00 AM EST tablet [...] active Triamcinolone Aceton zita 0.1 % eCW1 ([facility]) Triamcinolone Acetonide 0.001 MG/MG Topi regina Ointment Triamcinolone Acetonide 0.1 % Triamcinolone Acetonide 0.1 % 05/19/2020 12:00:00 AM EST 1.0 {application} active Triamcinolone Aceton zita 0.1 % eCW1 ([facility]) Triamcinolone Acetonide 0.001 MG/MG Topi regina Ointment Triamcinolone Acetonide 0.1 % Triamcinolone Acetonide 0.1 % 05/19/2020 12:00:00 AM EST 1.0 {application} active Triamcinolone Aceton zita 0.1 % eCW1 ([facility]) Triamcinolone Acetonide 0.001 MG/MG Topi regina Ointment Triamcinolone Acetonide 0.1 % Triamcinolone Acetonide 0.1 % 05/12/2020 12:00:00 AM EST 1.0 {application} active Triamcinolone Aceton zita 0.1 % eCW1 ([facility]) Triamcinolone Acetonide 0.001 MG/MG Topi regina Ointment Triamcinolone Acetonide 0.1 % Triamcinolone Acetonide 0.1 % 05/12/2020 12:00:00 AM EST 1.0 {application} active Triamcinolone Aceton zita 0.1 % eCW1 ([facility]) 0.1 % 05/12/2020 12:00:00 AM EST ointment [...] active Triamcinolone Aceton zita 0.1 % eCW1 ([facility]) Triamcinolone Acetonide 0.001 MG/MG Topi regina Ointment Triamcinolone Acetonide 0.1 % Triamcinolone Acetonide 0.1 % 05/12/2020 12:00:00 AM EST 1.0 {application} active Triamcinolone Aceton zita 0.1 % eCW1 ([facility]) Triamcinolone Acetonide 0.001 MG/MG Topi regina Ointment Triamcinolone Acetonide 0.1 % Triamcinolone Acetonide 0.1 % 05/12/2020 12:00:00 AM EST 1.0 {application} active Triamcinolone Aceton zita 0.1 % eCW1 ([facility]) Triamcinolone Acetonide 0.001 MG/MG Topi regina Ointment Triamcinolone Acetonide 0.1 % Triamcinolone Acetonide 0.1 % 05/12/2020 12:00:00 AM EST 1.0 {application} active Triamcinolone Aceton zita 0.1 % eCW1 ([facility]) Triamcinolone Acetonide 0.001 MG/MG Topi regina Ointment Triamcinolone Acetonide 0.1 % Triamcinolone Acetonide 0.1 % 05/12/2020 12:00:00 AM EST 1.0 {application} active Triamcinolone Aceton zita 0.1 % eCW1 ([facility]) 50 mg 05/12/2020 12:00:00 AM EST tablet [...] active Triamcinolone Aceton zita 0.1 % eCW1 ([facility]) Triamcinolone Acetonide 0.001 MG/MG Topi regina Ointment Triamcinolone Acetonide 0.1 % Triamcinolone Acetonide 0.1 % 05/12/2020 12:00:00 AM EST 1.0 {application} active Triamcinolone Aceton zita 0.1 % eCW1 ([facility]) Triamcinolone Acetonide 0.001 MG/MG Topi regina Ointment Triamcinolone Acetonide 0.1 % Triamcinolone Acetonide 0.1 % 05/12/2020 12:00:00 AM EST 1.0 {application} active Triamcinolone Aceton zita 0.1 % eCW1 ([facility]) 25 mg 05/11/2020 12:00:00 AM EST tablet [...] 1 TABLET BY MOUTH ONCE DAILY SOLD: 07/31/2020 [facility] 25 mg 05/08/2020 12:00:00 AM EST tablet 30 TAKE 1 TABLET BY MOUTH ONCE DAILY TAKE 1 TABLET BY MOUTH ONCE DAILY SOLD: 06/05/2020 [facility] Hydroxychloroquine Sulfate 200 MG Oral Tablet HYDROXYCHLOROQ UINE SULFATE 05/08/2020 12:00:00 AM EST tablet 60 TAKE ONE TABLET BY MOUTH EVERY DAY, THEN INCREASE TO TWO TIMES A DAY AFTER 7 DAYS TAKE ONE TABLET BY MOUTH EVERY DAY, THEN INCREASE TO TWO TIMES A DAY AFTER 7 DAYS SOLD: 07/31/2020 [facility] 25 mg 05/08/2020 12:00:00 AM EST [...] 12:00:00 AM EDT ORAL active MED[facility] ([facility]) 300-60 mg 04/07/2020 12:00:00 AM EDT tablet [...] DOSE = THREE TABLETS SOLD: 03/10/2020 [facility] 300-60 mg 03/06/2020 12:00:00 AM EDT tablet [...] 12/02/2019 12:00:00 AM EDT ORAL active MEDENT ([facility]) Acetaminophen 325 MG / Hydrocodone Bitartrate 5 MG Ora l Tablet Hydrocodone Bitartrate/Acetaminophen 11/27/2019 12:00:00 AM EDT ORAL active MEDENT ([facility]) 5-325 mg 11/27/2019 [...] 11/06/2019 12:00:00 AM EDT ORAL completed MEDENT ([facility]) 25 mg 11/06/2019 [...] 11/06/2019 12:00:00 AM EDT ORAL completed MEDENT ([facility] ) tramadol hydrochloride 50 MG Oral Tablet TRAMADOL [...] Losartan Potassium 12:00:00 AM EDT active MEDENT ([facility]) Prednisone 10 MG Oral Tablet Prednisone 10/23/2019 12:00:00 AM EDT completed [facility]) Losartan Potassium 25 MG Oral Tablet LOSARTAN POTASSIUM 12:00:00 AM EDT tablet 30 TAKE 1 TABLET BY MOUTH ONCE DAILY TAKE 1 TABLET BY MOUTH ONCE DAILY SOLD: 03/10/2020 [facility] 25 mg 10/23/2019 12:00:00 AM [...] TABLET BY MOUTH ONCE DAILY SOLD: 02/10/2020 [facility] 25 mg 10/23/2019 12:00:00 AM [...] TABLET BY MOUTH EVERY DAY SOLD: 12/20/2019 [facility] atorvastatin 40 MG Oral Tablet [...] Sulfate 09/23/2019 12:00:00 AM EDT active MEDENT ([facility]) atorvastatin 40 MG Oral Tablet Atorvastatin Calcium 09/23/2019 1 2:00:00 AM EDT ORAL active MEDENT ( [facility]) Alprazolam 0.5 MG Oral Tablet ALPRAZOLAM 09/18/2019 12:00:00 AM EDT ta blet 30 TAKE ONE TABLET BY MOUTH AT BEDTIME NEEDED MAXIMUM DAILY DOSE = 1 TAKE ONE TABLET BY MOUTH AT BEDTIME NEEDED MAXIMUM DAILY DOSE = 1 SOLD: 09/18/2019 [facility] Amlodipine 5 MG Oral Tablet Amlodipine Besylate 09/17/2019 12:00:00 A M EDT ORAL active MEDENT ([facility]) 5 mg 09/17/2019 12:00:00 AM EDT [...] e Take 20 mg by mouth daily [facility] 20 mg 07/24/2019 12:00:00 AM EST [...] Famotidine 07/23/2019 12:00:00 AM EST active [facility] ([facility]) Furosemide 20 MG Oral Tablet Furosemide 07/23/2019 12:00:00 AM EST ORAL completed [facility] ([facility]) 40 mg 07/23/2019 12:00:00 AM EST tablet 30 TAKE ONE TABLET BY MOUTH EVERY DAY TAKE ONE TABLET BY MOUTH EVERY DAY SOLD: 11/06/2019 [facility] 40 mg 07/23/2019 12:00:00 AM EST tablet 30 TAKE ONE TABLET BY MOUTH EVERY DAY TAKE ONE TABLET BY MOUTH EVERY DAY SOLD: 10/10/2019 [facility] Metoprolol Tartrate 25 MG Oral Tablet me toprolol tartrate (LOPRESSOR) 25 MG tablet metoprolol tartrate (LOPRESSOR) 25 MG tablet 07/10/2019 12:0 0:00 AM EST 25 mg Oral active Take 1 tablet (2 5 mg total) by mouth 2 (two) times a day [facility] Alprazolam 0.5 MG Oral Tablet ALPRAZOLAM [...] Oral active Take 25 mg by mouth [facility] 300 mg 06/13/2019 12:00:00 AM EST [...] 12:00:00 AM EST ORAL active [facility] ([facility] 80 mg [...] by mouth 2 (two) times a day [facility] Insurance Providers Payer name Policy type / Coverage type Policy ID Covered democrat ID Covered democrat's relationship to thompson Policy Thompson Plan Information MEDICARE [id number] SP [id number] MEDICARE C [id number] S [id number] [id number] AETNA MEDICARE [id number] SP [id number] [facility] [id number] SP [id number] EMEDNY [id number] SP [id number] MEDICARE [id number] SP [id number] [id number] MEDICAID [id number] MEDICARE [id number] MEDICARE [id number] Jewell [id number] Y64 HUMANA GOLD O [id number] S [id number] MEDICAID M [id number] S [id number] HUMANA GOLD [id number] SP [id number] EMEDNY [id number] SP [id number] MEDICAID [id number] SP [id number] MEDICARE [id number] Jewell [id number] Y64 MEDICARE [id number] SP [id number] A MEDICAID [id number] SP 00 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 [id number] Self [id number] Medicaid Medigap Part B [id number] Self [id number] Medicare Natl Govt Servic Medicare Primary [id number] Self [id number] MEDICAID [id number] SP [id number] MEDICAID [id number] SP [id number] 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 [id number] Self [id number] Medicaid Medigap Part B [id number] Self [id number] Medicare [place] Govt Servic Medicare Primary [id number] Self [id number] 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 [id number] Self [id number] Medicaid Medigap Part B [id number] Self [id number] Medicare [place] Govt Servic Medicare Primary [id number] Self [id number] Medicaid Medigap Part B [id number] Self [id number] 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 [id number] Self [id number] Medicare [place] Govt Servic Medicare Primary [id number] Self [id number] Medicaid Medigap Part B [id number] Self [id number] 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 [id number] Self [id number] Medicare [place] Govt Servic Medicare Primary [id number] Self [id number] Medicaid Medigap Part B [id number] Self [id number] 63C 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 [id number] Self [id number] Medicare [place] Govt Servic Medicare Primary [id number] Self [id number] MEDICARE PI PI Medicaid Medigap Part B [id number] Self [id number] 63C 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 [id number] Self [id number] Medicare [place] Govt Servic Medicare Primary [id number] Self [id number] Medicaid Medigap Part B [id number] Self [id number] 63C 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 [id number] Self [id number] Medicare [place] Govt Servic Medicare Primary [id number] Self [id number] Medicaid Medigap Part B [id number] Self [id number] 63C 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 [id number] Self [id number] Medicare [place] Govt Servic Medicare Primary [id number] Self [id number] MEDICARE C [id number] S [id number] A Medicaid Medigap Part B [id number] Self [id number] 63C 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 [id number] Self [id number] Medicare [place] Govt Servic Medicare Primary [id number] Self [id number] Medicaid Medigap Part B [id number] Self [id number] 63C 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 [id number] Self [id number] Medicare [place] Govt Servic Medicare Primary [id number] Self [id number] MEDICAID [id number] SP [id number] Medicaid Medigap Part B [id number] Self [id number] 63C 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 [id number] Self [id number] Medicare [place] Govt Servic Medicare Primary [id number] Self [id number] Medicaid Medigap Part B [id number] Self [id number] 63C 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 [id number] Self [id number] Medicare [place] Govt Servic Medicare Primary [id number] Self [id number] MEDICARE [id number] SP [id number] A [place] Part B Self Medicare [place] Gov't Servi Medicare Primary Self Medicaid Medigap Part B 1 1 Self 1 1 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 Self Medicare [place] Self [place] Self State Ins Fund [place] Workers 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 Self OTHER WORKERS COMPENSATION [id number] SP [id number] A Problems, Conditions, and Diagnoses Code Display Name Description Problem Type Effective Dates Data Source(s) I25.5 Ischemic cardiomyopathy Ischemic cardiomyopathy 788149 2020 12:00:00 AM EST [facility] M47.816 720776488 Lumbar spondylosis Problem 06/04/2020 12:00: 00 AM EST eCW1 ([facility]) I77.6 99478107 Vasculitis Problem 06/04/2020 12:00:00 AM ES T eCW1 ([facility]) M79.7 [id number] Fibromyalgia Problem 01/21/2020 12:00:00 AM EDT eCW1 ([facility]) 95685020 Neck pain Neck pain Problem 11/06/2019 12:00:00 AM ED T MEDENT ([facility]) 122440175 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 Problem 11/06/2019 12:00:00 AM EDT MEDENT ([facility]) 44373993 Abnormal gait Abnormal gait Problem 10/30/2019 12:00:00 AM EDT MEDENT ([facility]) 675944559 Nervous system symptoms Nervous system symptoms Proble m 10/30/2019 12:00:00 AM EDT MEDENT ([facility] ) 105906959 CVA - cerebrovascular accident due to ce rebral artery occlusion CVA - cerebrovascular accident due to cerebral artery occlusion Problem 06/18/2019 12:00:00 AM EST MEDENT ([facility]) 03023276 Essential hypertension Essential hypertension Problem 06/14/2019 12:00:00 AM EST MEDENT ([facility]) I10 Essential (primary) hypertension Essential (primary) h ypertension Diagnosis 06/12/2020 01:26:55 PM [facility] E78.5 Hyperlipidemia, unspecified Hyperlipidemia, unspecifie d Diagnosis 06/12/2020 01:26:55 PM [facility] N18.9 Chronic kidney disease, unspecified Chronic kidn ey disease, unspecified Diagnosis 06/12/2020 01:26:55 PM [facility] Z72.0 Tobacco use Tobacco use Diagnosis 06/12/2020 01:26:55 PM [facility] I25.83 Coronary atherosclerosis due to lipid ri ch plaque Coronary atherosclerosis due to lipid ri Diagnosis 06/12/2020 01:26:55 PM [facility] I25.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 Atherosclerotic heart disease of [place] Diagnosis 06/12/2020 01:26:55 PM EST [facility] F41.9 Anxiety disorder, unspecified Anxiety disorder, unspec ified Diagnosis 10/23/2019 12:50:14 PM EDT [facility] D64.9 Anemia, unspecified Anemia, unspecified Diagnosis 0 10/23/2019 12:50:14 PM EDT [facility] Z86.73 Personal history of transien t ischemic attack (TIA), and cerebral infarction without residual deficits Personal history of transient ischemic a Diagnosis 10/23/2019 12:50:14 PM EDT [facility] M79.606 Pain in leg, unspecified Pain in leg, unspecified Diag nosis 07/10/2019 12:22:38 PM EST [facility] Surgeries/Procedures Procedure Description Date Indications Data Source(s) X-Ray Spine Thoracolumbar Ap & Lateral 2 Views 021 12:00:00 AM EST [facility] ([facility] ) RADEX SPINE LUMBOSACRAL 2/3 VIEWS 06/18/2020 12:00:00 AM EST [facility] ([facility] ) Needle electromyography, each extremity, with related paraspinal areas, when performed, done with nerve conduction, amplitude and latency/velocity study; complete, five or more muscles studied, innervated by three or more nerves or four or more spinal levels (list separately in addition to the code for primary procedure). 06/15/2020 12:00:00 AM EST [facility] T ([facility], ) Needle electromyography, each extremity, with related paraspinal areas, when performed, done with nerve conduction, amplitude and latency/velocity study; complete, five or more muscles studied, innervated by three or more nerves or four or more spinal levels (list separately in addition to the code for primary procedure). 06/15/2020 12:00:00 AM EST [facility] T ([facility], ) Nerve Conduction 11-12 Studies 06/15/2020 12:00:00 AM EST [facility] ([facility] ) ECG ROUTINE ECG W/LEAST 12 LDS W/I&R POCT AMB EKG Routine 06/12/2020 5:31 PM EST Coronary artery disease due to lipid rich plaque Essential hypertension 06/12/2020 10:31:00 PM EST Essential hypertensionCoronary artery disease due to lipid rich plaque [facility] Essential hypertension Coronary artery disease due to lipid tristian h plaque HEPATIC FUNCTION PANEL HEPATIC FUNCTION PANEL Routine 05/26/2020 05/26/2020 12:00:00 AM EST [facility] BASIC METABOLIC PANEL CALCIUM TOTAL BASIC METABOLIC PANEL Routine 05/26/2020 05/26/2020 12:00:00 AM EST [facility] BLOOD COUNT COMPLETE AUTO&AUTO DIFRNTL WBC COUNT CBC AND DIFFER ENTIAL Routine 04/21/2020 04/21/2020 12:00:[address] [facility] Diabetic Retinal Eye Exam 02/25/2020 12:00:00 AM EDT [facility] ([facility]) RADEX SPINE LUMBOSACRAL 2/3 VIEWS 01/28/2020 12:00:00 AM EDT [facility] ([facility] ) RADEX SPINE LUMBOSACRAL 2/3 VIEWS 12/16/2019 12:00:00 AM EDT [facility] ([facility] ) CLTX VRT BDY FX W/O MANJ REQ&W/CSTING/BRACING 12/02/19 12:00:00 AM EDT [facility] ([facility] ) MRI BRAIN BRAIN STEM W/O CONTRAST MATERIAL 11/02/2019 12:00:00 AM EDT [facility] ([facility] ) MRI BRAIN BRAIN STEM W/O CONTRAST MATERIAL 11/02/2019 12:00:00 AM EDT [facility] ([facility] ) MRI SPINAL CANAL CERVICAL W/O CONTRAST MATRL 0 12:00:00 AM EDT [facility] ([facility] ) MRI SPINAL CANAL CERVICAL W/O CONTRAST MATRL 0 12:00:00 AM EDT [facility] ([facility] ) RADEX HAND MINIMUM 3 VIEWS 08/23/2019 12:00:00 AM EST [facility] ([facility] ) RADEX HAND MINIMUM 3 VIEWS 07/25/2019 12:00:00 AM EST [facility] ([facility] ) RADEX HAND MINIMUM 3 VIEWS 07/11/2019 12:00:00 AM EST [facility] ([facility] ) APPLICATION CAST ELBOW FINGER SHORT ARM 07/04/2019 12: 00:00 AM EST [facility] ([facility]) CLTX METACARPAL FX W/O MANIPULATION EACH BONE 06/13/20 12:00:00 AM EST [facility] ([facility]) Results ID Date Data Source [id number] 07/24/2020 02:16:00 PM EST [facility] ([facility]) Name Value Range Interpretation Code Description Data Amber rce(s) Supporting Document(s) Laboratory test finding (navigational concept) 0.00 ng/mL 0.00-0.08 [facility] ([facility]) ID Date Data Source [id number] 07/24/2020 02:13:00 PM EST [facility] ([facility]) Name Value Range Interpretation Code Description Data Amber rce(s) Supporting Document(s) Laboratory test finding (navigational concept) 31.0 % 38.0-51.0 [facility] ([facility]) Laboratory test finding (navigational concept) 138 meq/L 136-145 [facility] ([facility]) Laboratory test finding (navigational concept) 97 mg/dL 70-105 [facility] ([facility]) Laboratory test finding (navigational concept) 4.4 mg/dL 4.5-5.3 [facility] ([facility]) Laboratory test finding (navigational concept) 4.0 meq/L 3.5-5.1 [facility] ([facility]) Laboratory test finding (navigational concept) 26.0 MM/L 23.0-27.0 [facility] ([facility]) Laboratory test finding (navigational concept) 11 mg/dL 8-26 [facility] ([facility]) Laboratory test finding (navigational concept) 105 meq/L 98-109 [facility] ([facility]) Laboratory test finding (navigational concept) 1.3 mg/dL 0.6-1.3 [facility] ([facility]) ID Date Data Source [id number] 07/24/2020 02:12:00 PM EST [facility] ([facility]) Name Value Range Interpretation Code Description Data Amber rce(s) Supporting Document(s) Lactate [Mass/volume] in Serum or Plasma 1.3 mmol/L 0.4-2.0 [facility] ([facility]) <content>note:<nlbl:demographic_changed> </content>
<content>Y/N query for Sepsis Lactate Rule: Y</content>
<content></content> ID Date Data Source [id number] 07/24/2020 02:12:00 PM EST [facility] ([facility]) Name Value Range Interpretation Code Description Data Amber rce(s) Supporting Document(s) White Blood Count 11.8 10 4.0-10.0 [facility] ([facility]) Hemoglobin 9.4 g/dL 12.0-15.5 [facility] Red Blood Count 3.46 10 4.00-5.40 [facility] ([facility]) Hematocrit 30.5 % 36.0-47.0 [facility]) Mean Corpuscular Hemoglobin 27.2 pg 27.0-33.0 [facility] ([facility]) Mean Corpuscular Volume 88.2 fl 80.0-96.0 [facility] ([facility]) Mean Corpuscular HGB Conc 30.8 g/dL 32.0-36.5 [facility] ([facility]) Platelet Count, Automated 445 10 150-450 [facility] ([facility]) Red Cell Distribution Width 15.6 % 11.5-14.5 [facility] ([facility]) Neutrophils % 71.4 % 36.0-66.0 [facility] ([facility]) Eos % 4.4 % 0.0-3.0 [facility]) Potter % 7.9 % 0.0-5.0 [facility] Lymph % 15.3 % 24.0-44.0 [facility]) Immature Granulocyte % 0.5 % 0-3.0 [facility] ([facility]) Nucleated Red Blood Cell % 0.0 % 0-0 [facility] ([facility]) Baso % 0.5 % 0.0-1.0 [facility]) Lymph # 1.8 10 1.5-5.0 [facility] Neutrophils # 8.4 10 1.5-8.5 [facility] ([facility]) Potter # 0.9 10 0.0-0.8 [facility] Eos # 0.5 10 0.0-0.5 [facility] Baso # 0.1 10 0.0-0.2 [facility]) ID Date Data Source [id number] 07/24/2020 02:11:00 PM EST [facility] ([facility]) Name Value Range Interpretation Code Description Data Amber rce(s) Supporting Document(s) Lipoprotein lipase [Enzymatic activity/volume] in Serum or Plasm a 48 U/L 73-393 [facility] ([facility]) <content>note:<nlbl:demographic_changed> </content>
<content></content> ID Date Data Source [id number] 07/24/2020 02:11:00 PM EST [facility] ([facility]) Name Value Range Interpretation Code Description Data Amber rce(s) Supporting Document(s) Ast/Sgot 9 U/L 7-37 [facility] Alt/SGPT 8 U/L 12-78 [facility]) Alkaline Phosphatase 93 U/L 45-117 [facility] ([facility]) Bilirubin,Total 0.3 mg/dL 0.2-1.0 [facility] ([facility]) Total Protein 6.8 GM/DL 6.4-8.2 [facility] ([facility]) Albumin 2.8 GM/DL 3.2-5.2 [facility]) Bilirubin,Direct 0.1 mg/dL 0.0-0.2 [facility] ([facility]) Albumin/Globulin Ratio 0.7 1.2-2.2 [facility] ([facility]) ID Date Data Source [id number] 07/24/2020 02:11:00 PM EST [facility] ([facility]) Name Value Range Interpretation Code Description Data Amber rce(s) Supporting Document(s) aPTT in Blood by Coagulation assay 31.0 s 24.2-38.5 [facility] ([facility]) ID Date Data Source [id number] 07/24/2020 02:11:00 PM EST [facility] ([facility]) Name Value Range Interpretation Code Description Data Amber rce(s) Supporting Document(s) Prothrombin Time 13.1 s 12.5-14.3 [facility]) Inr 0.97 [facility] THERAPUTIC HUMAN INR VALUES INDICATIONS NORMAL RANGES PROPHYLAXIS/TREATMENT OF: VENOUS THROMBOSIS 2.0-3.0 PULMONARY EMBOLISM 2.0-3.0 PREVENTION OF SYSTEMIC EMBOLISM FROM: TISSUE HEART VALVES 2.0-3.0 ACUTE MYOCARDIAL INFARCTION 2.0-3.0 VALVULAR HEART DISEASE 2.0-3.0 ATRIAL FIBRILLATION 2.0-3.0 MECHANICAL VALVES(HIGH RISK) 2.5-3.5 RECURRENT MYOCARDIAL INFARCTION 2.5-3.5 ID Date Data Source [id number] 07/24/2020 02:00:00 PM EST [facility] ([facility]) Name Value Range Interpretation Code Description Data Amber rce(s) Supporting Document(s) Bedside Glucose 97 mg/dL 83-110 [facility] ([facility]) ID Date Data Source [id number] 07/20/2020 03:24:00 PM EST [facility] ([facility] Name Value Range Interpretation Code Description Data Amber rce(s) Supporting Document(s) Influenza A Amplification Laboratory test result [facility] Negative results do not preclude influen za or RSV virus infection and should not be used as the sole basis for treatment or other patient management decisions. Influenza B Amplification Laboratory test result [facility] ([facility]) Negative results do not preclude influen za or RSV virus infection and should not be used as the sole basis for treatment or other patient management decisions. Laboratory test finding (navigational concept) Laboratory test result [facility]) A false negative result may occur [...] pathogens. DISCLAIMER: Testing was performed using the [employer] SARS-CoV-2 test. This test was developed and its performance characteristics determined by [employer]. This test has not been FDA cleared [...] revoked sooner. RSV Amplification Laboratory test result [facility]) Negative results do not preclude influen za or RSV virus infection and should not be used as the sole basis for treatment or other patient management decisions. ID Date Data Source [id number] 07/20/2020 03:24:00 PM EST [facility] Name Value Range Interpretation Code Description Data Amber rce(s) Supporting Document(s) SARS coronavirus 2 RNA [Presence] in Res piratory specimen by JOSE with probe detection NEGATIVE [facility] This lab was ordered by [facility] a nd reported by [facility]. ID Date Data Source [id number] 07/10/2020 03:17:00 PM EST [facility] ([facility]) Name Value Range Interpretation Code Description Data Amber rce(s) Supporting Document(s) Protein [Mass/volume] in Urine 198.0 mg/dL 0.0-12.0 [facility] ([facility]) <content>note:<nlbl:demographic_changed> </content>
<content></content> Creatinine [Mass/volume] in Urine 341.0 mg/dL [facility]) <content>note:<nlbl:demographic_changed> </content>
<content></content> ID Date Data Source [id number] 07/10/2020 03:14:00 PM EST [facility] ([facility]) Name Value Range Interpretation Code Description Data Amber rce(s) Supporting Document(s) Complement C3 [Mass/volume] in Serum or Plasma 139 mg/dL 90-180 [facility] ([facility]) <content>note:<nlbl:demographic_changed> </content>
<content></content> C reactive protein [Mass/volume] in Serum or Plasma by High sensitivity method 2.83 mg/dL 0.00-0.30 [facility] <content>note:<nlbl:demographic_changed> </content>
<content></content> Complement C4 [Mass/volume] in Serum or Plasma 29 mg/dL 10-40 [facility] <content>note:<nlbl:demographic_changed> </content>
<content></content> ID Date Data Source [id number] 07/10/2020 03:14:00 PM EST [facility] ([facility]) Name Value Range Interpretation Code Description Data Amber rce(s) Supporting Document(s) Blood Urea Nitrogen 15 mg/dL 7-18 [facility] ([facility]) Creatinine For GFR 1.55 mg/dL 0.55-1.30 [facility] ([facility]) Glucose, Fasting 110 mg/dL 70-100 [facility] ([facility]) Glomerular Filtration Rate 34.8 [facility] ([facility]) <content>Units are mL/min/1.73 m2</content>
<content></content>
<content>Chronic Kidney Disease Staging per NKF:</content>
<content></content>
<content>Stage I & II GFR >=60 Normal to Mildly Decreased</content>
<content>Stage III GFR 30- 59 Moderately Decreased</content>
<content>Stage IV GFR 15-29 Severely Decreased</content>
<content>Stage V GFR <15 Very Little GFR Left</content>
<content>ESRD GFR <15 on EXTERNAL AUDITOR</content>
<content></content> Sodium Level 138 meq/L 136-145 [facility] ([facility]) Potassium Serum 4.9 meq/L 3.5-5.1 [facility] ([facility]) Chloride Level 110 meq/L 98-107 [facility] ([facility]) Anion Gap 4 meq/L 8-16 [facility] ([facility]) Carbon Dioxide Level 24 meq/L 21-32 [facility] ([facility]) Alt/SGPT 10 U/L 12-78 [facility]) Calcium Level 8.5 mg/dL 8.8-10.2 [facility] ([facility]) Ast/Sgot 5 U/L 7-37 [facility]) Bilirubin,Total 0.2 mg/dL 0.2-1.0 [facility] ([facility]) Total Protein 6.7 GM/DL 6.4-8.2 [facility] ([facility]) Alkaline Phosphatase 92 U/L 45-117 [facility] ([facility]) Albumin 2.7 GM/DL 3.2-5.2 [facility] ([facility]) Albumin/Globulin Ratio 0.7 1.2-2.2 [facility] ([facility]) ID Date Data Source [id number] 07/10/2020 03:14:00 PM EST [facility] ([facility]) Name Value Range Interpretation Code Description Data Amber rce(s) Supporting Document(s) Erythrocyte sedimentation rate by Westergren method 79 mm/hr 0-30 [facility] ([facility]) ID Date Data Source [id number] 07/10/2020 03:14:00 PM EST [facility] ([facility]) Name Value Range Interpretation Code Description Data Amber rce(s) Supporting Document(s) White Blood Count 11.3 10 4.0-10.0 [facility] ([facility]) Hemoglobin 9.7 g/dL 12.0-15.5 [facility] ([facility]) Red Blood Count 3.54 10 4.00-5.40 [facility] ([facility]) Hematocrit 32.0 % 36.0-47.0 [facility] Mean Corpuscular Volume 90.4 fl 80.0-96.0 [facility] ([facility]) Mean Corpuscular Hemoglobin 27.4 pg 27.0-33.0 [facility] ([facility]) Red Cell Distribution Width 16.1 % 11.5-14.5 [facility] ([facility]) Mean Corpuscular HGB Conc 30.3 g/dL 32.0-36.5 [facility] ([facility]) Platelet Count, Automated 450 10 150-450 [facility] ([facility]) Lymph % 18.6 % 24.0-44.0 [facility]) Neutrophils % 61.2 % 36.0-66.0 [facility]) Potter % 9.1 % 0.0-5.0 [facility]) Immature Granulocyte % 0.4 % 0-3.0 [facility] ([facility]) Eos % 10.2 % 0.0-3.0 [facility]) Baso % 0.5 % 0.0-1.0 [facility]) Lymph # 2.1 10 1.5-5.0 [facility]) Neutrophils # 6.9 10 1.5-8.5 [facility]) Nucleated Red Blood Cell % 0.0 % 0-0 [facility] ([facility]) Potter # 1.0 10 0.0-0.8 [facility]) Baso # 0.1 10 0.0-0.2 [facility] Eos # 1.2 10 0.0-0.5 [facility]) ID Date Data Source RHEUMATOID FACTOR QUANT 06/04/2020 12:00:00 AM EST eCW1 ([facility]) Name Value Range Interpretation Code Description Data Amber rce(s) Supporting Document(s) 67.1 <15.0 eCW1 ([facility]) ID Date Data Source IgG SUBCLASS 4 06/04/2020 12:00:00 AM EST eCW1 ([facility]) Name Value Range Interpretation Code Description Data Amber rce(s) Supporting Document(s) 237 2-96 eCW1 ([facility]) ID Date Data Source CREATININE,RANDOM URINE 06/04/2020 12:00:00 AM EST eCW1 ([facility]) Name Value Range Interpretation Code Description Data Amber rce(s) Supporting Document(s) 267.0 eCW1 ([facility]) ID Date Data Source LAKESHA TITER & PATTERN 06/04/2020 12:00:00 AM EST eCW1 ([facility]) Name Value Range Interpretation Code Description Data Amber rce(s) Supporting Document(s) Negative . eCW1 ([facility]) ID Date Data Source ANTI-SJOGRENS A&B ANTIBODIES 06/04/2020 12:00:00 AM EST eCW1 ([facility]) Name Value Range Interpretation Code Description Data Amber rce(s) Supporting Document(s) <0.2 0.0-0.9 eCW1 ([facility]) <0.2 0.0-0.9 eCW1 ([facility]) ID Date Data Source TOTAL PROTEIN,RANDOM URINE 06/04/2020 12:00:00 AM EST eCW1 ( [facility]) Name Value Range Interpretation Code Description Data Amber rce(s) Supporting Document(s) 147.1 0.0-12.0 eCW1 ([facility]) ID Date Data Source HEPATITIS C ANTIBODY INDEX 06/04/2020 12:00:00 AM EST eCW1 ( [facility]) Name Value Range Interpretation Code Description Data Amber rce(s) Supporting Document(s) 0.0 <0.8 eCW1 ([facility]) ID Date Data Source Lupus Anticoagulant with RFX Send Out ONLY 06/04/2020 12:00: 00 AM EST eCW1 ([facility]) Name Value Range Interpretation Code Description Data Amber rce(s) Supporting Document(s) 42.9 0.0-47.0 eCW1 ([facility]) 39.1 0.0-51.9 eCW1 ([facility]) Comment: . eCW1 ([facility]) ID Date Data Source CRYOGLOBULINS 06/04/2020 12:00:00 AM EST eCW1 ([facility]) Name Value Range Interpretation Code Description Data Amber rce(s) Supporting Document(s) NEGATIVE NEGATIVE eCW1 ([facility]) ID Date Data Source ANTI-CARDIOLIPIN ANTIBODIES 06/04/2020 12:00:00 AM EST eCW1 ([facility]) Name Value Range Interpretation Code Description Data Amber rce(s) Supporting Document(s) <9 0-12 eCW1 ([facility]) <9 0-11 eCW1 ([facility]) <9 0-14 eCW1 ([facility]) ID Date Data Source HEPATITIS B CORE ANTIBODY IGG 06/04/2020 12:00:00 AM EST eCW 1 ([facility]) Name Value Range Interpretation Code Description Data Amber rce(s) Supporting Document(s) Negative Negative eCW1 ([facility]) ID Date Data Source ERYTHROCYTE SEDIMENTATION RATE 06/04/2020 12:00:00 AM EST eC W1 ([facility]) Name Value Range Interpretation Code Description Data Amber rce(s) Supporting Document(s) 54 0-30 eCW1 ([facility]) ID Date Data Source HEPATITIS B SURFACE ANTIGEN 06/04/2020 12:00:00 AM EST eCW1 ([facility]) Name Value Range Interpretation Code Description Data Amber rce(s) Supporting Document(s) NEGATIVE NEGATIVE eCW1 ([facility]) ID Date Data Source CPK CREATINE PHOSPHOKINASE 06/04/2020 12:00:00 AM EST eCW1 ( [facility]) Name Value Range Interpretation Code Description Data Amber rce(s) Supporting Document(s) 42 26-192 eCW1 ([facility]) ID Date Data Source COMPLEMENT C4 06/04/2020 12:00:00 AM EST eCW1 ([facility]) Name Value Range Interpretation Code Description Data Amber rce(s) Supporting Document(s) 32 10-40 eCW1 ([facility]) ID Date Data Source COMPLEMENT C3 06/04/2020 12:00:00 AM EST eCW1 ([facility]) Name Value Range Interpretation Code Description Data Amber rce(s) Supporting Document(s) 156 90-180 eCW1 ([facility]) ID Date Data Source BETA-2 GLYCOPROTEIN 1 LEANN ROBERT 06/04/2020 12:00:00 AM EST eCW 1 ([facility]) Name Value Range Interpretation Code Description Data Amber rce(s) Supporting Document(s) <9 0-25 eCW1 ([facility]) <9 0-32 eCW1 ([facility]) <9 0-20 eCW1 ([facility]) ID Date Data Source [id number] 05/26/2020 01:48:00 PM EST [facility] ([facility]) Name Value Range Interpretation Code Description Data Amber rce(s) Supporting Document(s) Erythrocytes [#/volume] in Blood by Automated count 3.79 x10*6/UL 4.2 0-6.30 [facility] ([facility]) Leukocytes [#/volume] in Blood by Automated count 11.9 x10*3/UL 4.1-1 0.9 [facility] ([facility]) Hemoglobin [Mass/volume] in Blood 10.7 g/dL 12.0-18.0 [facility] ([facility]) Hematocrit [Volume Fraction] of Blood by Automated count 32.1 % 3 7.0-51.0 [facility] ([facility]) MCV 84.7 fL 80.0-97.0 [facility]) MCH 28.4 pg 26.0-32.0 [facility]) Platelets [#/volume] in Blood by Automated count 560 x10*3/UL 140-440 [facility] ([facility]) Erythrocyte distribution width [Ratio] by Automated count 16.2 % 11.6-13.7 [facility] ([facility]) MCHC 33.5 g/dL 31.0-38.0 [facility]) Mid % 5.5 % 1.7-9.3 [facility]) Lymph % 17.9 % 10.0-58.5 [facility] ([facility]) MPV 7.6 FL 7.8-11.0 [facility]) Mid # 0.7 x10*3/UL 0.1-0.6 [facility] ([facility]) Neut % 76.6 % 37.0-92.0 [facility]) Lymph # 2.1 x10*3/UL 0.6-4.1 [facility] ([facility]) Neut # 9.1 x10*3/UL 2.0-7.8 [facility] ([facility]) ID Date Data Source [id number] 05/26/2020 01:48:00 PM EST [facility] ([facility]) Name Value Range Interpretation Code Description Data Amber rce(s) Supporting Document(s) Urea nitrogen [Mass/volume] in Serum or Plasma 12 mg/dL 7-18 [facility] ([facility]) Glucose [Mass/volume] in Serum or Plasma 117 mg/dL 74-99 [facility] ([facility]) 100-125 mg/dL PRE-DIABETES/FASTING >126 mg/dL DIABETES/FASTING Sodium [Moles/volume] in Serum or Plasma 142 meq/L 136-145 [facility] ([facility]) Creatinine 1.6 mg/dL 0.6-1.3 [facility] ([facility]) Potassium [Moles/volume] in Serum or Plasma 3.5 meq/L 3.5-5.1 [facility] ([facility]) Chloride [Moles/volume] in Serum or Plasma 106 meq/L 98-107 [facility] ([facility]) Carbon dioxide, total [Moles/volume] in Serum or Plasma 25 meq/L 21 -32 [facility] ([facility]) Calcium [Mass/volume] in Serum or Plasma 8.6 mg/dL 8.5-10.1 [facility] ([facility]) Total Bilirubin 0.2 mg/dL 0.2-1.0 [facility] ([facility]) Aspartate aminotransferase [Enzymatic activity/volume] in Serum or Plasma 12 U/L 15-37 [facility] ([facility] ) Alkaline phosphatase isoenzyme [Units/volume] in Serum or Pl asma 92 mg/dL 46-116 [facility] ([facility]) Alanine aminotransferase [Enzymatic activity/volume] in Seru m or Plasma 13 U/L 12-78 [facility] ([facility]) Albumin [Mass/volume] in Serum or Plasma 3.2 g/dL 3.4-5.0 [facility] ([facility]) Glomerular filtration rate/1.73 sq M pre dicted among non-blacks [Volume Rate/Area] in Serum or Plasma by Creatinine-based formula (MDRD) 32 mL/min [facility] ([facility]) Proteinase 3 Ab [Units/volume] in Serum 7.2 g/dL 6.4-8.2 [facility] ([facility]) A/G Ratio 0.80 CALC 1.00-1.90 [facility] Glomerular filtration rate/1.73 sq M pre dicted among blacks [Volume Rate/Area] in Serum or Plasma by Creatinine-based formula (MDRD) 38 mL/min [facility] ([facility]) <content>CHRONIC KIDNEY DISEASE STAGING PER NKF</content>
<content></content>
<content>STAGE I & II GFR >= 60 NORMAL TO MILDLY DECREASED</content>
<content>STAGE III GFR 30-59 MODERATELY DECREASED</content>
<content>STAGE IV GFR 15-29 SEVERELY DECREASED</content>
<content>STAGE V GFR <15 VERY LITTLE GFR LEFT</content>
<content>ESRD GFR <15 ON EXTERNAL AUDITOR</content>
<content></content> ID Date Data Source [id number] 05/14/2020 12:00:00 AM [facility] Patient Name: MAHESH AQUINO[address] [facility] 1945[facility] [place] [address] Date of Exam: 05/14/2020#: Fax: [phone] EXAM: [...] cm at the L3 level on the [id number] series. The diameter appears to be about [...] by: Rusty Yates MD 05/14/2020 11:48 AM [facility] [facility] [place])RafiV/Zoran you for referring MAHESH AQUINO to our office. Electronically Signed - RAFI 05/14/20 12:29 Name Value Range Interpretation Code Description Data Amber rce(s) Supporting Document(s) ID Date Data Source [id number] 04/29/2020 02:50:00 PM EDT [facility] ([facility]) Name Value Range Interpretation Code Description Data Amber rce(s) Supporting Document(s) Carcinoembryonic Ag [Mass/volume] in Serum or Plasma 4.0 ng/mL [facility] ([facility]) THE CEA ASSAY IS PERFORMED ON THE AppTriggerR BY CHEMILUMINESCENCE AND SHOULD NOT BE COMPARED INTERCHANGEABLY WITH OTHER METHODS. IT SHOULD NOT BE USED ALONE A SCREENING TEST OR DIAGNOSIS FOR THE PRESENCE OR ABSENCE OF MALIGNANT DISEASE. PREDICTIONS OF DISEASE RECURRENCE SHOULD NOT BE BASED SOLELY ON VALUES OBTAINED FROM SERIAL PATIENT SERUM VALUES. ID Date Data Source [id number] 04/29/2020 02:50:00 PM EDT [facility] Name Value Range Interpretation Code Description Data Amber rce(s) Supporting Document(s) Glucose, Fasting 86 mg/dL 70-100 [facility] ([facility]) Glomerular Filtration Rate 31.8 [facility]) <content>Units are mL/min/1.73 m2</content>
<content></content>
<content>Chronic Kidney Disease Staging per NKF:</content>
<content></content>
<content>Stage I & II GFR >=60 Normal to Mildly Decreased</content>
<content>Stage III GFR 30- 59 Moderately Decreased</content>
<content>Stage IV GFR 15-29 Severely Decreased</content>
<content>Stage V GFR <15 Very Little GFR Left</content>
<content>ESRD GFR <15 on EXTERNAL AUDITOR</content>
<content></content> Blood Urea Nitrogen 14 mg/dL 7-18 [facility] ([facility]) Creatinine For GFR 1.68 mg/dL 0.55-1.30 [facility] ([facility]) Chloride Level 110 meq/L 98-107 [facility] ([facility]) Sodium Level 140 meq/L 136-145 [facility] ([facility]) Potassium Serum 4.1 meq/L 3.5-5.1 [facility] ([facility]) Anion Gap 5 meq/L 8-16 [facility] ([facility]) Carbon Dioxide Level 25 meq/L 21-32 [facility] ([facility]) Alt/SGPT 9 U/L 12-78 [facility] ([facility]) Calcium Level 8.3 mg/dL 8.8-10.2 [facility] ([facility]) Ast/Sgot 4 U/L 7-37 [facility] ([facility]) Alkaline Phosphatase 85 U/L 45-117 [facility] ([facility]) Bilirubin,Total 0.2 mg/dL 0.2-1.0 [facility] ([facility]) Total Protein 6.8 GM/DL 6.4-8.2 [facility] ([facility]) Albumin/Globulin Ratio 0.8 1.2-2.2 [facility] ([facility]) Albumin 3.0 GM/DL 3.2-5.2 [facility] ([facility]) ID Date Data Source [id number] 04/29/2020 02:50:00 PM EDT [facility] ([facility]) Name Value Range Interpretation Code Description Data Amber rce(s) Supporting Document(s) Red Blood Count 3.57 10 4.00-5.40 [facility] ([facility]) White Blood Count 12.1 10 4.0-10.0 [facility] ([facility]) Hemoglobin 9.5 g/dL 12.0-15.5 [facility] Mean Corpuscular Volume 88.8 fl 80.0-96.0 [facility] Mean Corpuscular Hemoglobin 26.6 pg 27.0-33.0 [facility] ([facility]) Hematocrit 31.7 % 36.0-47.0 [facility] Mean Corpuscular HGB Conc 30.0 g/dL 32.0-36.5 [facility] NT ([facility]) Red Cell Distribution Width 16.7 % 11.5-14.5 [facility] ([facility]) Platelet Count, Automated 439 10 150-450 [facility]) Potter % 7.9 % 0.0-5.0 [facility] ([facility]) Neutrophils % 62.7 % 36.0-66.0 [facility] ([facility]) Lymph % 22.4 % 24.0-44.0 [facility] ([facility]) Eos % 6.0 % 0.0-3.0 [facility] ([facility]) Baso % 0.7 % 0.0-1.0 [facility] ([facility]) Immature Granulocyte % 0.3 % 0-3.0 [facility] ([facility]) Neutrophils # 7.6 10 1.5-8.5 [facility] ([facility]) Nucleated Red Blood Cell % 0.0 % 0-0 [facility]) Eos # 0.7 10 0.0-0.5 [facility] ([facility]) Potter # 1.0 10 0.0-0.8 [facility] ([facility]) Lymph # 2.7 10 1.5-5.0 [facility]) Baso # 0.1 10 0.0-0.2 [facility] ([facility]) ID Date Data Source [id number] 03/13/2020 11:32:00 AM EDT [facility] ([facility]) Name Value Range Interpretation Code Description Data Amber rce(s) Supporting Document(s) Erythrocyte sedimentation rate by Westergren method 41 mm/hr 0-15 [facility]) ID Date Data Source [id number] 03/13/2020 11:31:00 AM EDT [facility] ([facility]) Name Value Range Interpretation Code Description Data Amber rce(s) Supporting Document(s) Phospholipid phosphorus [Mass/volume] in Serum 151 mg/dL 150-250 [facility]) Results for this test are for research p urposes only by the assay's extra gang supervisor. The performance characteristics of this product have not been established. Results should not be used as a diagnostic procedure without confirmation of the diagnosis by another medically established diagnostic product or procedure. Performed at: - [address] [id number] Regional Environmental Manager: Trevin Hardin MD, Phone: [phone] ID Date Data Source [id number] 03/13/2020 11:31:00 AM EDT [facility] ([facility]) Name Value Range Interpretation Code Description Data Amber rce(s) Supporting Document(s) Riqqx-6-Llbieref % 5.2 % 2.9-4.9 [facility] ([facility]) Albumin % 53.1 % 55.8-66.1 [facility]) Sjayr-2-Ekhzzoprj % 14.0 % 7.1-11.8 [facility] ([facility]) Hafh-5-Vvqhxurad % 7.2 % 4.7-7.2 [facility] ([facility]) Fenv-8-Ysrsoonbq % 6.6 % 3.2-6.5 [facility] ([facility]) Gamma Globulin % 13.9 % 11.1-18.8 [facility] ([facility]) Mbqbn-4-Qnliqpojr 0.97 GM/DL 0.42-0.99 [facility] ([facility]) Utihx-4-Qpzgjzmuv 0.36 GM/DL 0.17-0.41 [facility] ([facility]) Albumin 3.66 GM/DL 3.29-5.55 [facility] Rqqx-6-Ezzoornyy 0.50 GM/DL 0.28-0.60 [facility] ([facility]) Gamma Globulins 0.96 GM/DL 0.65-1.58 [facility] ([facility]) Wvpd-0-Qtzxmhwqy 0.46 GM/DL 0.19-0.55 [facility] ([facility]) Total Protein 6.9 GM/DL 6.4-8.2 [facility] ([facility]) Spep Interpretation Laboratory test result [facility] ([facility]) NO M-SPIKE(S)NOTED. Laboratory test finding (navigational concept) Laboratory test result [facility] ([facility]) REV'D BY O ELISE ID Date Data Source [id number] 03/13/2020 11:31:00 AM EDT [facility]) Name Value Range Interpretation Code Description Data Amber rce(s) Supporting Document(s) Perinuclear AB Anca-P Laboratory test result [facility] ([facility]) The presence of positive fluorescence ex [...] 1999;111:507-513. Anca-Atypical Laboratory test result [facility] ([facility]) The atypical pANCA pattern has been obse rved in a significant percentage of patients with ulcerative colitis, primary sclerosing cholangitis and autoimmune hepatitis. Cytoplasmic Neutrop AB Anca-C Laboratory test result [facility]) ID Date Data Source [id number] 02/12/2020 12:00:00 AM EDT [facility] Patient Name: MAXWELL AQUINO [facility] Date of : 1945[place] [address] Date of Exam: 02/12/2020PH#: Fax: [phone] EXAM: MRI PELVIS WITHOUT CONTRASTCLINICAL INFORMATION: Bilateral hip pain.There are no prior pelvic MRI's for comparison.3T multiplanar MRI imaging of the pelvis was obtained using varioussequences.The femoral heads are spherical in shape and symmetric in appearance.There is fqes-gr-cllwjllj rather symmetric appearing hip joint spacenarrowing. No abnormal focal chondral or subchondral signal is seen in thefemoral or acetabular component of either hip. There is no hip jointeffusion. There is nbqo-uc-zujxrscs T2 hypersignal seen in thetrochanteric tendinobursal region of each hip. The signal and morphologythroughout the imaged musculature is within normal limits. There is noevidence of a mass or mass effect. The sacroiliac joints are within normallimits. The cortical and marrow signal seen throughout the imaged osseouspelvis is within normal limits.IMPRESSION:1. Ivox-oi-qlvqlrlw bilateral hip degenerative changes.2. Tlaa-fj-kovwubhk bilateral trochanteric tendinobursitis.Accredited by the [employer] in [place].ANGELIC Almaguer/Zoran hernandez for referring MAHESH AQUINO to our office. Electronically Signed - JASSON BETTS DO 02/12/20 17:50 Name Value Range Interpretation Code Description Data Amber rce(s) Supporting Document(s) ID Date Data Source [id number] 02/01/2020 09:00:00 PM EDT [facility] ([facility]) Name Value Range Interpretation Code Description Data Amber rce(s) Supporting Document(s) Prothrombin Time 13.2 s 11.8-14.0 [facility] ([facility]) Partial Thromboplastin Time 30.2 s 25.0-38.4 [facility] ([facility]) Inr 0.99 [facility]) THERAPUTIC HUMAN INR VALUES INDICATIONS NORMAL RANGES PROPHYLAXIS/TREATMENT OF: VENOUS THROMBOSIS 2.0-3.0 PULMONARY EMBOLISM 2.0-3.0 PREVENTION OF SYSTEMIC EMBOLISM FROM: TISSUE HEART VALVES 2.0-3.0 ACUTE MYOCARDIAL INFARCTION 2.0-3.0 VALVULAR HEART DISEASE 2.0-3.0 ATRIAL FIBRILLATION 2.0-3.0 MECHANICAL VALVES(HIGH RISK) 2.5-3.5 RECURRENT MYOCARDIAL INFARCTION 2.5-3.5 ID Date Data Source [id number] 02/01/2020 08:40:00 PM EDT [facility] ([facility]) Name Value Range Interpretation Code Description Data Amber rce(s) Supporting Document(s) White Blood Count 9.8 10 4.0-10.0 [facility] ([facility]) Hemoglobin 10.0 g/dL 12.0-15.5 [facility] ([facility]) Red Blood Count 3.59 10 4.00-5.40 [facility] ([facility]) Hematocrit 33.1 % 36.0-47.0 [facility] Mean Corpuscular Volume 92.2 fl 80.0-96.0 [facility] ([facility]) Mean Corpuscular Hemoglobin 27.9 pg 27.0-33.0 [facility] ([facility]) Platelet Count, Automated 427 10 150-450 [facility] NT ([facility]) Red Cell Distribution Width 15.9 % 11.5-14.5 [facility] ([facility]) Mean Corpuscular HGB Conc 30.2 g/dL 32.0-36.5 [facility] ([facility]) Potter % 8.8 % 0.0-5.0 [facility] Neutrophils % 56.1 % 36.0-66.0 [facility] ([facility]) Lymph % 28.3 % 24.0-44.0 [facility] Eos % 5.8 % 0.0-3.0 [facility] Immature Granulocyte % 0.3 % 0-3.0 [facility] ([facility]) Baso % 0.7 % 0.0-1.0 [facility] Nucleated Red Blood Cell % 0.0 % 0-0 [facility] ([facility]) Neutrophils # 5.5 10 1.5-8.5 [facility] ([facility]) Eos # 0.6 10 0.0-0.5 [facility]) Lymph # 2.8 10 1.5-5.0 [facility] ([facility]) Potter # 0.9 10 0.0-0.8 [facility] Baso # 0.1 10 0.0-0.2 [facility] ID Date Data Source [id number] 02/01/2020 08:40:00 PM EDT [facility]) Name Value Range Interpretation Code Description Data Amber rce(s) Supporting Document(s) Troponin I.cardiac [Mass/volume] in Serum or Plasma Laboratory test result [facility]) <content>Troponin I Reference Interval f or Siemens [place] LOCI:</content>
<content></content>
<content>99th Percentile= 0.00-0.045 ng/ml</content>
<content></content>
<content>Risk Stratification:</content>
<content><= 0.10 ng/ml Decreased Risk for Adverse Clinical</content>
<content>Events.</content>
<content>0.10-1.50 ng/ml Increased Risk for Adverse Clinical</content>
<content>Events. Evaluation of additional</content>
<content>criterion and/or repeat testing in 2-6</content>
<content>hours is suggested to rule out myocardial</content>
<content>damage.</content>
<content>>= 1.50 ng/ml Indicative of Myocardial Injury.</content>
<content></content> Lipoprotein lipase [Enzymatic activity/volume] in Serum or Plasm a 80 U/L 73-393 [facility]) Thyrotropin [Units/volume] in Serum or Plasma by Detec tion limit <= 0.05 mIU/L 0.753 uIU/ML 0.358-3.740 [facility] ) Thyroxine (T4) free [Mass/volume] in Serum or Plasma 0.90 ng/dL 0.76- 1.46 [facility]) ID Date Data Source [id number] 02/01/2020 08:40:00 PM EDT [facility] ([facility]) Name Value Range Interpretation Code Description Data Amber rce(s) Supporting Document(s) Glucose, Fasting 103 mg/dL 70-100 [facility] ([facility]) Blood Urea Nitrogen 10 mg/dL 7-18 [facility] ([facility]) Creatinine For GFR 1.34 mg/dL 0.55-1.30 [facility] ([facility]) Sodium Level 138 meq/L 136-145 [facility] ([facility]) Glomerular Filtration Rate 41.3 [facility] ([facility]) <content>Units are mL/min/1.73 m2</content>
<content></content>
<content>Chronic Kidney Disease Staging per NKF:</content>
<content></content>
<content>Stage I & II GFR >=60 Normal to Mildly Decreased</content>
<content>Stage III GFR 30- 59 Moderately Decreased</content>
<content>Stage IV GFR 15-29 Severely Decreased</content>
<content>Stage V GFR <15 Very Little GFR Left</content>
<content>ESRD GFR <15 on EXTERNAL AUDITOR</content>
<content></content> Potassium Serum 4.4 meq/L 3.5-5.1 [facility] ([facility]) Chloride Level 107 meq/L 98-107 [facility] ([facility]) Carbon Dioxide Level 27 meq/L 21-32 [facility] ([facility]) Anion Gap 4 meq/L 8-16 [facility] ([facility]) Calcium Level 8.5 mg/dL 8.8-10.2 [facility] ([facility]) ID Date Data Source [id number] 02/01/2020 08:40:00 PM EDT [facility] ([facility]) Name Value Range Interpretation Code Description Data Amber rce(s) Supporting Document(s) Ast/Sgot 11 U/L 7-37 [facility]) Alt/SGPT 11 U/L 12-78 [facility] ([facility]) Bilirubin,Total 0.1 mg/dL 0.2-1.0 [facility] ([facility]) Alkaline Phosphatase 101 U/L 45-117 [facility] ([facility]) Bilirubin,Direct Laboratory test result 0.0-0.2 [facility]) Albumin 3.0 GM/DL 3.2-5.2 [facility] ([facility]) Total Protein 7.0 GM/DL 6.4-8.2 [facility]) Albumin/Globulin Ratio 0.8 1.2-2.2 [facility] ([facility]) ID Date Data Source [id number] 02/01/2020 08:40:00 PM EDT [facility]) Name Value Range Interpretation Code Description Data Amber rce(s) Supporting Document(s) CPK Creatine Phosphokinase 60 U/L 26-192 [facility]) CK-MB Value Mass Laboratory test result [facility]) MB/CK Relative Index 1.67 [facility]) <content>DIAGNOSIS CRITERIA</content>
<content>MMB ng/ml Relative Index (RI)</content>
<content>NON-AMI < or = 5 N/A</content>
<content>BLANC ZONE > 5 < or = 4</content>
<content>AMI > 5 > 4</content>
<content></content> ID Date Data Source [id number] 01/24/2020 01:00:00 PM EDT [facility] ([facility]) Name Value Range Interpretation Code Description Data Amber rce(s) Supporting Document(s) C reactive protein [Mass/volume] in Serum or Plasma by High sensitivity method Laboratory test result [facility] ([facility]) ID Date Data Source [id number] 01/24/2020 12:59:00 PM EDT [facility] Name Value Range Interpretation Code Description Data Amber rce(s) Supporting Document(s) Erythrocyte sedimentation rate by Westergren method 54 mm/hr 0-15 [facility] ([facility]) ID Date Data Source [id number] 12/31/2019 01:24:00 PM EDT [facility] ([facility]) Name Value Range Interpretation Code Description Data Amber rce(s) Supporting Document(s) Laboratory test finding (navigational concept) 122 mg/dL 70-105 [facility] ([facility]) Laboratory test finding (navigational concept) 31.0 % 38.0-51.0 [facility] ([facility]) Laboratory test finding (navigational concept) 3.8 meq/L 3.5-5.1 [facility] ([facility]) Laboratory test finding (navigational concept) 4.6 mg/dL 4.5-5.3 [facility] ([facility]) Laboratory test finding (navigational concept) 138 meq/L 136-145 [facility] ([facility]) Laboratory test finding (navigational concept) 9 mg/dL 8-26 [facility] ([facility]) Laboratory test finding (navigational concept) 20.0 MM/L 23.0-27.0 [facility] ([facility]) Laboratory test finding (navigational concept) 104 meq/L 98-109 [facility] ([facility]) Laboratory test finding (navigational concept) 1.3 mg/dL 0.6-1.3 [facility] ([facility]) ID Date Data Source [id number] 12/31/2019 01:22:00 PM EDT [facility] ([facility]) Name Value Range Interpretation Code Description Data Amber rce(s) Supporting Document(s) White Blood Count 13.4 10 4.0-10.0 [facility] ([facility]) Red Blood Count 3.12 10 4.00-5.40 [facility] ([facility]) Hematocrit 28.8 % 36.0-47.0 [facility]) Hemoglobin 8.9 g/dL 12.0-15.5 [facility] ([facility]) Mean Corpuscular Volume 92.3 fl 80.0-96.0 [facility] ([facility]) Mean Corpuscular HGB Conc 30.9 g/dL 32.0-36.5 [facility] ([facility]) Mean Corpuscular Hemoglobin 28.5 pg 27.0-33.0 [facility] ([facility]) Red Cell Distribution Width 17.3 % 11.5-14.5 [facility] ([facility]) Neutrophils % 71.0 % 36.0-66.0 [facility] ([facility]) Platelet Count, Automated 449 10 150-450 [facility] ([facility]) Potter % 9.4 % 0.0-5.0 [facility]) Eos % 3.4 % 0.0-3.0 [facility] Lymph % 15.3 % 24.0-44.0 [facility] Baso % 0.5 % 0.0-1.0 [facility] Immature Granulocyte % 0.4 % 0-3.0 [facility] ([facility]) Nucleated Red Blood Cell % 0.0 % 0-0 [facility] ([facility]) Neutrophils # 9.5 10 1.5-8.5 [facility] ([facility]) Lymph # 2.0 10 1.5-5.0 [facility]) Potter # 1.3 10 0.0-0.8 [facility] Eos # 0.5 10 0.0-0.5 [facility] Baso # 0.1 10 0.0-0.2 [facility] ID Date Data Source [id number] 12/31/2019 01:17:00 PM EDT [facility] ([facility]) Name Value Range Interpretation Code Description Data Amber rce(s) Supporting Document(s) Laboratory test finding (navigational concept) 0.00 ng/mL 0.00-0.08 [facility] ([facility]) ID Date Data Source [id number] 12/31/2019 01:17:00 PM EDT [facility] ([facility]) Name Value Range Interpretation Code Description Data Amber rce(s) Supporting Document(s) Troponin I.cardiac [Mass/volume] in Serum or Plasma Laboratory test result [facility] Laboratory test finding (navigational concept) 0.00 ng/mL 0.00-0.08 [facility] ([facility]) ID Date Data Source [id number] 12/19/2019 02:28:00 PM EDT [facility] ([facility] Name Value Range Interpretation Code Description Data Amber rce(s) Supporting Document(s) Cholesterol [Mass/volume] in Serum or Plasma 109 mg/dL 131-200 [facility] Cholesterol in HDL [Mass/volume] in Serum or Plasma 52 mg/dL 35-60 [facility]) Triglyceride [Mass/volume] in Serum or Plasma 93 mg/dL 30-150 [facility] ([facility]) Cholesterol in LDL [Mass/volume] in Serum or Plasma by calcu lation 38 CALC 50-159 [facility] ID Date Data Source [id number] 12/19/2019 02:28:00 PM EDT [facility] ([facility]) Name Value Range Interpretation Code Description Data Amber rce(s) Supporting Document(s) Urea nitrogen [Mass/volume] in Serum or Plasma 11 mg/dL 7-18 [facility]) Creatinine 1.5 mg/dL 0.6-1.3 [facility] ([facility]) NOTE: RESULT VERIFIED. Glucose [Mass/volume] in Serum or Plasma 100 mg/dL 74-99 [facility] ([facility]) 100-125 mg/dL PRE-DIABETES/FASTING >126 mg/dL DIABETES/FASTING Sodium [Moles/volume] in Serum or Plasma 138 meq/L 136-145 [facility] Chloride [Moles/volume] in Serum or Plasma 104 meq/L 98-107 [facility]) Potassium [Moles/volume] in Serum or Plasma 4.5 meq/L 3.5-5.1 [facility] Calcium [Mass/volume] in Serum or Plasma 8.0 mg/dL 8.5-10.1 [facility] ([facility]) NOTE: RESULT VERIFIED. Alkaline phosphatase isoenzyme [Units/volume] in Serum or Pl asma 96 mg/dL 46-116 [facility] ([facility]) Carbon dioxide, total [Moles/volume] in Serum or Plasma 27 meq/L 21 -32 [facility] ([facility]) Aspartate aminotransferase [Enzymatic activity/volume] in Serum or Plasma 10 U/L 15-37 [facility] ([facility] ) Alanine aminotransferase [Enzymatic activity/volume] in Seru m or Plasma 14 U/L 12-78 [facility] ([facility]) Total Bilirubin 0.2 mg/dL 0.2-1.0 [facility] ([facility]) A/G Ratio 0.61 CALC 1.00-1.90 [facility] ([facility]) Albumin [Mass/volume] in Serum or Plasma 2.7 g/dL 3.4-5.0 [facility] ([facility]) NOTE: RESULT VERIFIED. Proteinase 3 Ab [Units/volume] in Serum 7.1 g/dL 6.4-8.2 [facility] ([facility]) Glomerular filtration rate/1.73 sq M pre dicted among non-blacks [Volume Rate/Area] in Serum or Plasma by Creatinine-based formula (MDRD) 34 mL/min [facility] ([facility]) Glomerular filtration rate/1.73 sq M pre dicted among blacks [Volume Rate/Area] in Serum or Plasma by Creatinine-based formula (MDRD) 41 mL/min [facility] ([facility]) <content>CHRONIC KIDNEY DISEASE STAGING PER NKF</content>
<content></content>
<content>STAGE I & II GFR >= 60 NORMAL TO MILDLY DECREASED</content>
<content>STAGE III GFR 30-59 MODERATELY DECREASED</content>
<content>STAGE IV GFR 15-29 SEVERELY DECREASED</content>
<content>STAGE V GFR <15 VERY LITTLE GFR LEFT</content>
<content>ESRD GFR <15 ON EXTERNAL AUDITOR</content>
<content></content> ID Date Data Source [id number] 12/19/2019 02:28:00 PM EDT [facility] ([facility]) Name Value Range Interpretation Code Description Data Amber rce(s) Supporting Document(s) Erythrocyte sedimentation rate by Westergren method 55 mm/hr 0-15 [facility] ([facility]) ID Date Data Source [id number] 12/19/2019 02:28:00 PM EDT [facility] ([facility]) Name Value Range Interpretation Code Description Data Amber rce(s) Supporting Document(s) Leukocytes [#/volume] in Blood by Automated count 10.8 x10*3/UL 4.1-1 0.9 [facility] ([facility]) Erythrocytes [#/volume] in Blood by Automated count 3.41 x10*6/UL 4.2 0-6.30 [facility] ([facility]) Hemoglobin [Mass/volume] in Blood 9.7 g/dL 12.0-18.0 [facility] ([facility]) NOTE: RESULT VERIFIED. MCV 88.7 fL 80.0-97.0 [facility] ([facility]) MCH 28.6 pg 26.0-32.0 [facility] ([facility]) Hematocrit [Volume Fraction] of Blood by Automated count 30.3 % 3 7.0-51.0 [facility] ([facility]) Erythrocyte distribution width [Ratio] by Automated count 17.2 % 11.6-13.7 [facility] ([facility]) Platelets [#/volume] in Blood by Automated count 530 x10*3/UL 140-440 [facility] ([facility]) MCHC 32.2 g/dL 31.0-38.0 [facility] ([facility]) MPV 7.0 FL 7.8-11.0 [facility] ([facility]) Mid % 7.6 % 1.7-9.3 [facility] ([facility]) Lymph % 21.6 % 10.0-58.5 [facility] ([facility]) Mid # 0.8 x10*3/UL 0.1-0.6 [facility] ([facility]) Neut % 70.8 % 37.0-92.0 [facility]) Lymph # 2.3 x10*3/UL 0.6-4.1 [facility] ([facility]) Neut # 7.7 x10*3/UL 2.0-7.8 [facility] ([facility]) ID Date Data Source [id number] 10/22/2019 02:22:00 PM EDT [facility] ([facility]) Name Value Range Interpretation Code Description Data Amber rce(s) Supporting Document(s) Cyclic citrullinated peptide IgG Ab [Units/volume] in Serum or Plasma 9 units 0-19 [facility] ([facility]) <content>Negative <20</con tent>
<content>Weak positive 20 - 39</content>
<content>Moderate positive 40 - 59</content>
<content>Strong positive >59</content>
<content>Performed at: [facility]</content>
<content>[address] [place] [id number]</content>
<content>Regional Environmental Manager: Trevin Hardin MD, Phone: [phone]</content>
<content></content> ID Date Data Source [id number] 10/22/2019 02:22:00 PM EDT [facility] ([facility]) Name Value Range Interpretation Code Description Data Amber rce(s) Supporting Document(s) Glucose [Mass/volume] in Serum or Plasma 131 mg/dL 74-99 [facility] ([facility]) 100-125 mg/dL PRE-DIABETES/FASTING >126 mg/dL DIABETES/FASTING Creatinine 1.9 mg/dL 0.6-1.3 [facility]) Urea nitrogen [Mass/volume] in Serum or Plasma 17 mg/dL 7-18 [facility] ([facility]) Chloride [Moles/volume] in Serum or Plasma 103 meq/L 98-107 [facility] ([facility]) Carbon dioxide, total [Moles/volume] in Serum or Plasma 25 meq/L 21 -32 [facility] ([facility]) Sodium [Moles/volume] in Serum or Plasma 139 meq/L 136-145 [facility] ([facility]) Potassium [Moles/volume] in Serum or Plasma 3.7 meq/L 3.5-5.1 [facility] ([facility]) Glomerular filtration rate/1.73 sq M pre dicted among blacks [Volume Rate/Area] in Serum or Plasma by Creatinine-based formula (MDRD) 31 mL/min [facility] ([facility]) <content>CHRONIC KIDNEY DISEASE STAGING PER NKF</content>
<content></content>
<content>STAGE I & II GFR >= 60 NORMAL TO MILDLY DECREASED</content>
<content>STAGE III GFR 30-59 MODERATELY DECREASED</content>
<content>STAGE IV GFR 15-29 SEVERELY DECREASED</content>
<content>STAGE V GFR <15 VERY LITTLE GFR LEFT</content>
<content>ESRD GFR <15 ON EXTERNAL AUDITOR</content>
<content></content> Calcium [Mass/volume] in Serum or Plasma 8.3 mg/dL 8.5-10.1 [facility] ([facility]) Glomerular filtration rate/1.73 sq M pre dicted among non-blacks [Volume Rate/Area] in Serum or Plasma by Creatinine-based formula (MDRD) 26 mL/min [facility] ([facility]) ID Date Data Source [id number] 10/22/2019 02:22:00 PM EDT [facility]) Name Value Range Interpretation Code Description Data Amber rce(s) Supporting Document(s) Erythrocyte sedimentation rate by Westergren method 55 mm/hr 0-15 [facility]) ID Date Data Source [id number] 10/22/2019 02:22:00 PM EDT [facility] ([facility]) Name Value Range Interpretation Code Description Data Amber rce(s) Supporting Document(s) Erythrocytes [#/volume] in Blood by Automated count 3.58 x10*6/UL 4.2 0-6.30 [facility]) Leukocytes [#/volume] in Blood by Automated count 14.0 x10*3/UL 4.1-1 0.9 [facility] ([facility]) NOTE: RESULT VERIFIED. MCH 28.5 pg 26.0-32.0 [facility] ([facility]) Hematocrit [Volume Fraction] of Blood by Automated count 30.5 % 3 7.0-51.0 [facility] ([facility]) Hemoglobin [Mass/volume] in Blood 10.2 g/dL 12.0-18.0 [facility] ([facility]) MCV 85.0 fL 80.0-97.0 [facility] ([facility]) MCHC 33.5 g/dL 31.0-38.0 [facility] ([facility]) Platelets [#/volume] in Blood by Automated count 551 x10*3/UL 140-440 [facility] ([facility]) Erythrocyte distribution width [Ratio] by Automated count 15.5 % 11.6-13.7 [facility] ([facility]) Lymph % 17.5 % 10.0-58.5 [facility] ([facility]) Neut % 77.4 % 37.0-92.0 [facility] ([facility]) MPV 7.6 FL 7.8-11.0 [facility] ([facility]) Mid % 5.1 % 1.7-9.3 [facility] ([facility]) Neut # 10.9 x10*3/UL 2.0-7.8 [facility] ([facility]) Lymph # 2.4 x10*3/UL 0.6-4.1 [facility] ([facility]) Mid # 0.7 x10*3/UL 0.1-0.6 [facility] ([facility]) ID Date Data Source [id number] 09/17/2019 02:25:00 PM EDT [facility] ([facility]) Name Value Range Interpretation Code Description Data Amber rce(s) Supporting Document(s) Urea nitrogen [Mass/volume] in Serum or Plasma 16 mg/dL 7-18 [facility] ([facility]) Sodium [Moles/volume] in Serum or Plasma 138 meq/L 136-145 [facility] ([facility]) Creatinine 1.8 mg/dL 0.6-1.3 [facility] ([facility]) Glucose [Mass/volume] in Serum or Plasma 123 mg/dL 74-99 [facility] ([facility]) 100-125 mg/dL PRE-DIABETES/FASTING >126 mg/dL DIABETES/FASTING Carbon dioxide, total [Moles/volume] in Serum or Plasma 26 meq/L 21 -32 [facility] ([facility]) Potassium [Moles/volume] in Serum or Plasma 3.6 meq/L 3.5-5.1 [facility] ([facility]) Calcium [Mass/volume] in Serum or Plasma 8.3 mg/dL 8.5-10.1 [facility] ([facility]) Chloride [Moles/volume] in Serum or Plasma 103 meq/L 98-107 [facility] ([facility]) Aspartate aminotransferase [Enzymatic activity/volume] in Se rum or Plasma 8 U/L 15-37 [facility] ([facility]) Alanine aminotransferase [Enzymatic activity/volume] in Seru m or Plasma 11 U/L 12-78 [facility] ([facility]) Alkaline phosphatase isoenzyme [Units/volume] in Serum or Pl asma 96 mg/dL 46-116 [facility] ([facility]) Total Bilirubin 0.2 mg/dL 0.2-1.0 [facility] ([facility]) Albumin [Mass/volume] in Serum or Plasma 2.9 g/dL 3.4-5.0 [facility] ([facility]) Proteinase 3 Ab [Units/volume] in Serum 7.9 g/dL 6.4-8.2 [facility] ([facility]) A/G Ratio 0.58 CALC 1.00-1.90 [facility]) Glomerular filtration rate/1.73 sq M pre dicted among non-blacks [Volume Rate/Area] in Serum or Plasma by Creatinine-based formula (MDRD) 28 mL/min [facility] ([facility]) Glomerular filtration rate/1.73 sq M pre dicted among blacks [Volume Rate/Area] in Serum or Plasma by Creatinine-based formula (MDRD) 33 mL/min [facility] ([facility]) <content>CHRONIC KIDNEY DISEASE STAGING PER NKF</content>
<content></content>
<content>STAGE I & II GFR >= 60 NORMAL TO MILDLY DECREASED</content>
<content>STAGE III GFR 30-59 MODERATELY DECREASED</content>
<content>STAGE IV GFR 15-29 SEVERELY DECREASED</content>
<content>STAGE V GFR <15 VERY LITTLE GFR LEFT</content>
<content>ESRD GFR <15 ON EXTERNAL AUDITOR</content>
<content></content> ID Date Data Source [id number] 09/17/2019 02:25:00 PM EDT [facility] ([facility]) Name Value Range Interpretation Code Description Data Amber rce(s) Supporting Document(s) Creatine kinase [Enzymatic activity/volume] in Serum or Plasma 40 U /L 26-192 [facility] ([facility]) ID Date Data Source [id number] 09/17/2019 02:24:00 PM EDT [facility] ([facility]) Name Value Range Interpretation Code Description Data Amber rce(s) Supporting Document(s) Myoglobin Screen, Urine Laboratory test result [facility] ([facility]) ID Date Data Source [id number] 09/17/2019 02:24:00 PM EDT [facility] ([facility]) Name Value Range Interpretation Code Description Data Amber rce(s) Supporting Document(s) Color, Urine Laboratory test result [facility] ([facility]) Appearance, Urine Laboratory test result [facility] ([facility]) Specific [place] Urine Auto 1.014 1.002-1.035 [facility] ([facility]) Protein, Urine Auto Laboratory test result [facility] ([facility]) PH,Urine 5.0 units 5.0-9.0 [facility]) Glucose, Urine (Ua) Auto Laboratory test result [facility] ([facility]) Ketone, Urine Auto Laboratory test result [facility] ([facility]) Bilirubin, Urine Auto Laboratory test result [facility] ([facility]) Urobilinogen, Urine Auto 0.2 mg/dL 0.0-2.0 [facility] ([facility]) Leukocyte Esterase, Urine Auto Laboratory test result [facility] ([facility]) WBC, Urine Auto 7 /HPF 0-3 [facility] ([facility]) Blood, Urine Blood [facility] Nitrite, Urine Auto [facility] Bacteria, Urine Auto Laboratory test result [facility] ([facility]) Squamous Epithelial Cell Ur AU 2 /HPF 0-6 [facility] ([facility]) RBC, Urine Auto 4 /HPF 0-3 [facility] ([facility]) Transitional Epithelial Auto Laboratory test result [facility] ([facility]) Hyaline Cast, Urine Auto 0 /LPF 0-1 [facility] ([facility]) Mucus, Urine Laboratory test result [facility] ([facility]) ID Date Data Source [id number] 09/06/2019 02:22:00 PM EST [facility] ([facility]) Name Value Range Interpretation Code Description Data Amber rce(s) Supporting Document(s) PTT Lupus Type Anticoag Screen 1.1 0-1.2 [facility] ([facility]) RESULT IS LESS THAN 1.2, [...] a specific inhibitor. ID Date Data Source [id number] 09/06/2019 02:22:00 PM EST [facility] ([facility]) Name Value Range Interpretation Code Description Data Amber rce(s) Supporting Document(s) Cyclic citrullinated peptide IgG Ab [Units/volume] in Serum or Plasma 9 units 0-19 [facility] ([facility]) <content>Negative <20</con tent>
<content>Weak positive 20 - 39</content>
<content>Moderate positive 40 - 59</content>
<content>Strong positive >59</content>
<content>Performed at: [facility]</content>
<content>[address], [place] [id number]</content>
<content>Regional Environmental Manager: Trevin Hardin MD, Phone: [phone]</content>
<content></content> ID Date Data Source [id number] 09/06/2019 02:18:00 PM EST [facility] ([facility]) Name Value Range Interpretation Code Description Data Amber rce(s) Supporting Document(s) Glucose [Mass/volume] in Serum or Plasma 130 mg/dL 74-99 [facility] ([facility]) 100-125 mg/dL PRE-DIABETES/FASTING >126 mg/dL DIABETES/FASTING Urea nitrogen [Mass/volume] in Serum or Plasma 18 mg/dL 7-18 [facility] ([facility]) Potassium [Moles/volume] in Serum or Plasma 3.8 meq/L 3.5-5.1 [facility] ([facility]) Creatinine 2.0 mg/dL 0.6-1.3 [facility]) Sodium [Moles/volume] in Serum or Plasma 138 meq/L 136-145 [facility] ([facility]) Carbon dioxide, total [Moles/volume] in Serum or Plasma 23 meq/L 21 -32 [facility] ([facility]) Chloride [Moles/volume] in Serum or Plasma 103 meq/L 98-107 [facility] ([facility]) Calcium [Mass/volume] in Serum or Plasma 8.4 mg/dL 8.5-10.1 [facility] ([facility]) Glomerular filtration rate/1.73 sq M pre dicted among non-blacks [Volume Rate/Area] in Serum or Plasma by Creatinine-based formula (MDRD) 24 mL/min [facility] ([facility]) Glomerular filtration rate/1.73 sq M pre dicted among blacks [Volume Rate/Area] in Serum or Plasma by Creatinine-based formula (MDRD) 30 mL/min [facility] ([facility]) <content>CHRONIC KIDNEY DISEASE STAGING PER NKF</content>
<content></content>
<content>STAGE I & II GFR >= 60 NORMAL TO MILDLY DECREASED</content>
<content>STAGE III GFR 30-59 MODERATELY DECREASED</content>
<content>STAGE IV GFR 15-29 SEVERELY DECREASED</content>
<content>STAGE V GFR <15 VERY LITTLE GFR LEFT</content>
<content>ESRD GFR <15 ON EXTERNAL AUDITOR</content>
<content></content> ID Date Data Source [id number] 09/06/2019 02:18:00 PM EST [facility] ([facility]) Name Value Range Interpretation Code Description Data Amber rce(s) Supporting Document(s) Leukocytes [#/volume] in Blood by Automated count 10.4 x10*3/UL 4.1-1 0.9 [facility] ([facility]) Erythrocytes [#/volume] in Blood by Automated count 3.79 x10*6/UL 4.2 0-6.30 [facility] ([facility]) Hemoglobin [Mass/volume] in Blood 10.8 g/dL 12.0-18.0 [facility] ([facility]) Hematocrit [Volume Fraction] of Blood by Automated count 33.2 % 3 7.0-51.0 [facility] ([facility]) MCV 87.6 fL 80.0-97.0 [facility] ([facility]) MCHC 32.6 g/dL 31.0-38.0 [facility] ([facility]) MCH 28.5 pg 26.0-32.0 [facility] ([facility]) Platelets [#/volume] in Blood by Automated count 455 x10*3/UL 140-440 [facility] ([facility]) Erythrocyte distribution width [Ratio] by Automated count 15.4 % 11.6-13.7 [facility] ([facility]) MPV 7.5 FL 7.8-11.0 [facility]) Lymph % 17.2 % 10.0-58.5 [facility] Mid % 6.2 % 1.7-9.3 [facility] Mid # 0.8 x10*3/UL 0.1-0.6 [facility] ([facility]) Neut # 7.9 x10*3/UL 2.0-7.8 [facility] ([facility]) Lymph # 1.7 x10*3/UL 0.6-4.1 [facility] ([facility]) Neut % 76.6 % 37.0-92.0 [facility] ID Date Data Source [id number] 09/02/2019 12:48:00 PM EST [facility] ([facility]) Name Value Range Interpretation Code Description Data Amber rce(s) Supporting Document(s) Antinuclear Antibodies Laboratory test result [facility] ([facility]) Performed at: - [facility] [id number] Regional Environmental Manager: Jillian Miner MD, Phone: [phone] ID Date Data Source [id number] 09/02/2019 12:48:00 PM EST [facility] ([facility]) Name Value Range Interpretation Code Description Data Amber rce(s) Supporting Document(s) Rheumatoid Factor Quant 48.1 IU/ml [facility] ([facility]) <content>note:<nlbl:demographic_changed></content>
<content>note:<nlbl:demog raphic_changed></content>
<content>note:<nlbl:demographic_changed></content>
<content></content> Erythrocyte sedimentation rate by Westergren method 65 mm/hr 0-30 [facility] ([facility]) Bacteria identified in Blood by Culture Laboratory test result [facility] ([facility]) No growth after 72 hours . All [...] by High sensitivity method 4.23 mg/dL 0.00-0.30 [facility] ([facility] ) <content>note:<nlbl:demographic_changed></content>
<content>note:<nlbl:demog raphic_changed></content>
<content>note:<nlbl:demographic_changed></content>
<content></content> ID Date Data Source [id number] 09/02/2019 12:48:00 PM EST [facility] ([facility]) Name Value Range Interpretation Code Description Data Amber rce(s) Supporting Document(s) CPK Creatine Phosphokinase 87 U/L 26-192 [facility] ([facility]) MB/CK Relative Index 1.95 [facility] ([facility]) <content>DIAGNOSIS CRITERIA</content>
<content>MMB ng/ml Relative Index (RI)</content>
<content>NON-AMI < or = 5 N/A</content>
<content>BLANC ZONE > 5 < or = 4</content>
<content>AMI > 5 > 4</content>
<content></content> CK-MB Value Mass 1.7 ng/mL [facility] ([facility]) Troponin I Laboratory test result [facility]) <content>Troponin I Reference Interval f or Siemens [place] LOCI:</content>
<content></content>
<content>99th Percentile= 0.00-0.045 ng/ml</content>
<content></content>
<content>Risk Stratification:</content>
<content><= 0.10 ng/ml Decreased Risk for Adverse Clinical</content>
<content>Events.</content>
<content>0.10-1.50 ng/ml Increased Risk for Adverse Clinical</content>
<content>Events. Evaluation of additional</content>
<content>criterion and/or repeat testing in 2-6</content>
<content>hours is suggested to rule out myocardial</content>
<content>damage.</content>
<content>>= 1.50 ng/ml Indicative of Myocardial Injury.</content>
<content></content> ID Date Data Source [id number] 09/02/2019 12:48:00 PM EST [facility] ([facility]) Name Value Range Interpretation Code Description Data Amber rce(s) Supporting Document(s) Lactate [Mass/volume] in Serum or Plasma 1.6 mmol/L 0.4-2.0 [facility] ([facility]) <content>note:<nlbl:demographic_changed> </content>
<content>Y/N query for Sepsis Lactate Rule: Y</content>
<content></content> ID Date Data Source [id number] 09/02/2019 12:48:00 PM EST [facility] ([facility]) Name Value Range Interpretation Code Description Data Amber rce(s) Supporting Document(s) Glucose, Fasting 88 mg/dL 70-100 [facility] ([facility]) Blood Urea Nitrogen 15 mg/dL 7-18 [facility] ([facility]) Sodium Level 138 meq/L 136-145 [facility] ([facility]) Creatinine For GFR 1.66 mg/dL 0.55-1.30 [facility] ([facility]) Glomerular Filtration Rate 32.2 [facility] ([facility]) <content>Units are mL/min/1.73 m2</content>
<content></content>
<content>Chronic Kidney Disease Staging per NKF:</content>
<content></content>
<content>Stage I & II GFR >=60 Normal to Mildly Decreased</content>
<content>Stage III GFR 30- 59 Moderately Decreased</content>
<content>Stage IV GFR 15-29 Severely Decreased</content>
<content>Stage V GFR <15 Very Little GFR Left</content>
<content>ESRD GFR <15 on EXTERNAL AUDITOR</content>
<content></content> Carbon Dioxide Level 23 meq/L 21-32 [facility] Anion Gap 7 meq/L 8-16 [facility] ([facility]) Potassium Serum 4.3 meq/L 3.5-5.1 [facility] ([facility]) Chloride Level 108 meq/L 98-107 [facility] ([facility]) Calcium Level 8.0 mg/dL 8.8-10.2 [facility] ([facility]) ID Date Data Source [id number] 09/02/2019 12:48:00 PM EST [facility] ([facility]) Name Value Range Interpretation Code Description Data Amber rce(s) Supporting Document(s) White Blood Count 12.6 10 4.0-10.0 [facility] ([facility]) Hematocrit 36.0 % 36.0-47.0 [facility]) Red Blood Count 3.85 10 4.00-5.40 [facility] ([facility]) Hemoglobin 10.8 g/dL 12.0-15.5 [facility]) Red Cell Distribution Width 16.1 % 11.5-14.5 [facility] ([facility]) Mean Corpuscular HGB Conc 30.0 g/dL 32.0-36.5 [facility] ([facility]) Mean Corpuscular Hemoglobin 28.1 pg 27.0-33.0 [facility] ([facility]) Mean Corpuscular Volume 93.5 fl 80.0-96.0 [facility] ([facility]) Lymph % 16.7 % 24.0-44.0 [facility] ([facility]) Platelet Count, Automated 481 10 150-450 [facility] ([facility]) Neutrophils % 64.1 % 36.0-66.0 [facility] ([facility]) Baso % 0.7 % 0.0-1.0 [facility] ([facility]) Eos % 12.8 % 0.0-3.0 [facility]) Potter % 5.2 % 0.0-5.0 [facility]) Lymph # 2.1 10 1.5-5.0 [facility]) Neutrophils # 8.1 10 1.5-8.5 [facility]) Immature Granulocyte % 0.5 % 0-3.0 [facility] ([facility]) Nucleated Red Blood Cell % 0.0 % 0-0 [facility] ([facility]) Eos # 1.6 10 0.0-0.5 [facility]) Baso # 0.1 10 0.0-0.2 [facility]) Potter # 0.7 10 0.0-0.8 [facility]) ID Date Data Source [id number] 08/07/2019 10:04:30 PM EST [facility] Name Value Range Interpretation Code Description Data Amber rce(s) Supporting Document(s) &PDF [facility] GQTKTu1uNlHSOfLy04/RMCgqGACuu8KwCBokQIu5HWvcQGPhO7NtcNdtDZOIUOUKS38hVB0WFSRMXDSi yKE [file] oZCR5bmVKoSXfZkhA1dam/6isYC/V4ZM7FuIEZ0+PAINT SPRAYER SANDBLASTER [file] +GFzIkSYYISVXhYSCjWT0Ps7i4z/EsZXtPvT3XNjh8eg4HhYAS4NOvCCX9RwprkTaU7wR+ZkEKGl+Nursing Coordinator [file] AgICAgICAgICAgICAgICAgICAgICAgICAgICAgICAgICAgICAgICAgICAgICAgICAgICAgICAgICAgIC AgICAgICAgICANCiAgICAgICAgICAgICAgICAgICAg ICAgICAgICAgICAgICAgICAgICAgICAgICAgICAgICAgICAgICAgICAgICAgICAgICAgICAgICAgICAg ICAgICAgICAgICAgICAgICAgICANCiAgICAgICAgICAgICAgICAgICAgICAgICAgICAgICAgICAgICAg ICAgICAgICAgICAgICAgICAgICAgICAgICAgICAgIC AgICAgICAgICAgICAgICAgICAgICAgICAgICAgICANCiAgICAgICAgICAgICAgICAgICAgICAgICAgIC AgICAgICAgICAgICAgICAgICAgICAgICAgICAgICAgICAgICAgICAgICAgICAgICAgICAgICAgICAgIC AgICAgICAgICAgICANCiAgICAgICAgICAgICAgICAg ICAgICAgICAgICAgICAgICAgICAgICAgICAgICAgICAgICAgICAgICAgICAgICAgICAgICAgICAgICAg ICAgICAgICAgICAgICAgICAgICAgICANCiAgICAgICAgICAgICAgICAgICAgICAgICAgICAgICAgICAg ICAgICAgICAgICAgICAgICAgICAgICAgICAgICAgIC AgICAgICAgICAgICAgICAgICAgICAgICAgICAgICAgICANCiAgICAgICAgICAgICAgICAgICAgICAgIC AgICAgICAgICAgICAgICAgICAgICAgICAgICAgICAgICAgICAgICAgICAgICAgICAgICAgICAgICAgIC AgICAgICAgICAgICAgICANCiAgICAgICAgICAgICAg ICAgICAgICAgICAgICAgICAgICAgICAgICAgICAgICAgICAgICAgICAgICAgICAgICAgICAgICAgICAg ICAgICAgICAgICAgICAgICAgICAgICAgICANCiAgICAgICAgICAgICAgICAgICAgICAgICAgICAgICAg ICAgICAgICAgICAgICAgICAgICAgICAgICAgICAgIC AgICAgICAgICAgICAgICAgICAgICAgICAgICAgICAgICAgICANCiAgICAgICAgICAgICAgICAgICAgIC AgICAgICAgICAgICAgICAgICAgICAgICAgICAgICAgICAgICAgICAgICAgICAgICAgICAgICAgICAgIC AgICAgICAgICAgICAgICAgICANCjw/oEYcF0hkpTCk ytV6T2njTu5GCw2IRJ4fz9QtPESuDCjjvpUmBikNFgEwJJPsGysDBzd1DHlsBH9YxAXcL2WuL6WqPFqf SG8YATZcGATvlQLcDSMzLGDuFmA6MXMtXXkyUU2KyUUrSTouBYHcZXBzAnSoYCXcBD9LHCYsS423aeCn Fq8AWs2PNzHoIM4voi8APwIzOROnLxvXYer4SDnhJN 8EkMPnA9HugPZtv8zUMsMxW6OMYNZmNWKqFe0LUPBgFrLkJAQeRDelOO1bMWWeJADKwPqwdqO6PE1AYB 6efrAyJK7LGfYoKb0zCo9VCfJoO8WtP5IxYFXqEMYZLDevOU7EWABbFGS3ZYYkJhPdYYWUNtDcL85lHT 2EB9Dsa70fLjZ5PWPeSwSnNLiqMX20xQzkngKfxDEp tRznIT1QPl2+LIhdrkPlAafCCgngJVGFHvCjVzDACqIvICGiYDEqXPZbLxT9GrPbPy9BHVMiFGUrHTQv XnTnGRLlWAMjSGfcPMJqQZs6QiLoEQLkRWUbBF6RJuFhMFVvQFcoMRXgKELgWLPxze2NLKYiCXZvBBL9 MlPnCCNgNXZlGEwsNPGkMEDdWZF8OMDcQMAiKL0NXa VxXPBkXDZ7XfZlAMNjEXVgfu6SGHMcGTCaKBY6KEHuSXQvIJNqYNsbYVPfXKH5IZw7RRGgLNNeNX0CWk PzFXKtHWE2NdVtHHPpXFAmee4JXUDkAMSbEmqsKiMmJGVeJKIpTZmsKZDyACD3GBFvMJCqQWUaEX1HMp RsJLHfWWi2IVRvZIUgWYPxbr6HJIYpZXVzBWE2WJEi VQJfRDDoTHnuTKPfQZQ9RnAkIKSaCBXnFC7VOtPfPKFpGBYrMXwuMEPxNQGtym4BLUBkWWBpHvWkRjWq VXIyIRXoMXvyPHQbFJRtCgO3TGQhLMHmIA8OSkPbODLaPYE3GVemOHKeLUEkmj1SOHIzPETcSHYyZOPg MKFdJGQvNViaXGNrDTJ4FOr0QTHiXGZlPA2WCvFpMR QuNIRoImNxZBZhVLLvpk2MQMTfRDBcGHSeFMIjSJWdLQNaUHkoHURfREMgZAX2VFMgITXrKS6AWtBrXI FfEpLlHeqhZCSuVMYpsy4GACWyNUWhEUK8VVDmKFXyYAAzUXhmQVDeEAG0BKSoXPIsOEIfVC0FXwTrIU PhUFSpSZmmKRVfBCPniw7NPDChRAL3VcQ4HXZeXYTl JIPkRDnhYUZdIMw6QPD9HNSyPZXkJM5IYdPpPWUzUVYuPMyrWBZpPQLhyc8LSCDyZWZ6JiY9RJSiGDPx KGDbKJjaIBWzYRf1EKEvVTVbKMShFM4RXiChIDRdNCcpPWhnDZYhXDFswm7CcQFjhAjzcr3SIWhUJo6C gYxgAZQ1PHgkHp7guOMcMwYyCPAGXs3WneHwGIJrUD NBSUykYGHeKDWyUhavXoU2ATj9VsDyXAa0U6NgRLEwWZBlTUTwLDCyXuC6IFOeM3P4GbruLEslARE1UX iiKIE1KbSrVKFsMbZ6NtU+BH0tYDm+Gq7Es0HeqzA2zfSlQUx2EYG9MP1GWFNNM9HBEn== Procedure Social History Code Duration Value Status Description Data Source(s ) Smoking 07/13/2020 12:00:00 AM EST Current Smoker completed Curre nt Smoker eCW1 ([facility]) Smoking 07/13/2020 12:00:00 AM EST Current Smoker completed Curre nt Smoker eCW1 ([facility]) Smoking 06/24/2020 12:00:00 AM EST Current Smoker completed Curre nt Smoker eCW1 ([facility]) Alcohol intake 06/12/2020 12:00:00 AM EST Never completed [facility] Smoking 06/12/2020 12:00:00 AM EST Current every day smoker co mpleted Current every day smoker [facility] Smoking 06/04/2020 12:00:00 AM EST Current Smoker completed Curre nt Smoker eCW1 ([facility]) Smoking 06/04/2020 12:00:00 AM EST Current Smoker completed Curre nt Smoker eCW1 ([facility]) Smoking 06/04/2020 12:00:00 AM EST Current Smoker completed Curre nt Smoker eCW1 ([facility]) Smoking 05/19/2020 12:00:00 AM EST Current Smoker completed Curre nt Smoker eCW1 ([facility]) Smoking 05/19/2020 12:00:00 AM EST Current Smoker completed Curre nt Smoker eCW1 ([facility]) Smoking 05/05/2020 12:00:00 AM EST Current Smoker completed Curre nt Smoker eCW1 ([facility]) Smoking 05/05/2020 12:00:00 AM EST Current Smoker completed Curre nt Smoker eCW1 ([facility]) Smoking 01/21/2020 12:00:00 AM EDT Current Smoker completed Curre nt Smoker eCW1 ([facility]) Vital Signs ID Date Data Source UNK Name Value Range Interpretation Code Description Data Source(s) Body mass index (BMI) [Ratio] 27.9 kg/m2 27.9 k g/m2 [facility] ([facility]) Body weight 160.00 [lb_av] 160.00 [lb_av] MEDEN T ([facility]) Body height 63.5 [in_i] 63.5 [in_i] [facility] ([facility]) 5'3.50" Body temperature 96.3 [degF] 96.3 [degF] [facility] ([facility] Diastolic blood pressure 68 mm[Hg] 68 mm[Hg] eCW1 ([facility]) Systolic blood pressure 128 mm[Hg] 128 mm[Hg] e CW1 ([facility]) Body temperature 98.2 [degF] 98.2 [degF] eCW1 ( [facility]) Respiratory rate 18 /min 18 /min eCW1 ([facility]) Heart rate 76 /min 76 /min eCW1 ([facility]) Body mass index (BMI) [Ratio] 28.11 kg/m2 28.11 kg/m2 W1 ([facility]) Body height 64 [in_i] 64 [in_i] eCW1 ([facility]) Body weight 74.3 kg 74.3 kg eCW1 ([facility]) Body weight 163.8 [lb_av] 163.8 [lb_av] eCW1 ([facility]) Diastolic blood pressure 68 mm[Hg] 68 mm[Hg] eCW1 ([facility]) Systolic blood pressure 128 mm[Hg] 128 mm[Hg] e CW1 ([facility]) Body temperature 97.2 [degF] 97.2 [degF] eCW1 ( [facility]) Respiratory rate 20 /min 20 /min eCW1 ([facility]) Heart rate 105 /min 105 /min eCW1 ([facility]) Body mass index (BMI) [Ratio] 27.94 kg/m2 27.94 kg/m2 eCW1 ([facility]) Body height 64 [in_i] 64 [in_i] eCW1 ([facility]) Body weight 73.8 kg 73.8 kg eCW1 ([facility]) Body weight 162.8 [lb_av] 162.8 [lb_av] eCW1 ([facility]) Body temperature 96.4 [degF] 96.4 [degF] MEDENT ([facility]) Diastolic blood pressure 74 mm[Hg] 74 mm[Hg] [facility] Systolic blood pressure 124 mm[Hg] 124 mm[Hg] [facility] Oxygen saturation in Arterial blood by Pulse oximetry 98 % 98 % [facility] Body mass index (BMI) [Ratio] 28.34 kg/m2 28.34 kg/m2 [facility] Body weight 72.576 kg 72.576 kg [facility] Heart rate 92 /min 92 /min [facility] Diastolic blood pressure 66 mm[Hg] 66 mm[Hg] eCW1 ([facility]) Systolic blood pressure 124 mm[Hg] 124 mm[Hg] e CW1 ([facility]) Body temperature 97.8 [degF] 97.8 [degF] eCW1 ( [facility]) Respiratory rate 18 /min 18 /min eCW1 ([facility]) Heart rate 64 /min 64 /min eCW1 ([facility]) Body mass index (BMI) [Ratio] 27.63 kg/m2 27.63 kg/m2 eCW1 ([facility]) Body height 64 [in_i] 64 [in_i] eCW1 ([facility]) Body weight 73.0 kg 73.0 kg eCW1 ([facility]) Body weight 161.0 [lb_av] 161.0 [lb_av] eCW1 ([facility]) Body mass index (BMI) [Ratio] 28.0 kg/m2 28.0 k g/m2 MEDENT ([facility]) Oxygen saturation in Arterial blood by Pulse oximetry 96 % 96 % [facility] ([facility]) [facility] Body weight 158.00 [lb_av] 158.00 [lb_av] MEDEN T ([facility]) Body height 63 [in_i] 63 [in_i] [facility] ([facility]) 5'3" Diastolic blood pressure 82 mm[Hg] 82 mm[Hg] [facility] ([facility]) Systolic blood pressure 138 mm[Hg] 138 mm[Hg] M EDENT ([facility]) Body temperature 96.0 [degF] 96.0 [degF] [facility]ENT ([facility]) Body mass index (BMI) [Ratio] 27.12 kg/m2 27.12 kg/m2 W1 ([facility]) Body height 64 [in_i] 64 [in_i] eCW1 ([facility]) Body weight 158 [lb_av] 158 [lb_av] eCW1 ([facility]) Diastolic blood pressure 68 mm[Hg] 68 mm[Hg] eCW1 ([facility]) Systolic blood pressure 130 mm[Hg] 130 mm[Hg] e CW1 ([facility]) Body mass index (BMI) [Ratio] 27.12 kg/m2 27.12 kg/m2 W1 ([facility]) Body height 64 [in_i] 64 [in_i] eCW1 ([facility]) Body weight 158 [lb_av] 158 [lb_av] eCW1 ([facility]) Body temperature 97.8 [degF] 97.8 [degF] eCW1 ( [facility]) Respiratory rate 18 /min 18 /min eCW1 ([facility]) Heart rate 53 /min 53 /min W1 ([facility]) Body mass index (BMI) [Ratio] 26.71 kg/m2 26.71 kg/m2 W1 ([facility]) Body height 64 [in_i] 64 [in_i] eCW1 ([facility]) Body weight 70.6 kg 70.6 kg eCW1 ([facility]) Body weight 155.6 [lb_av] 155.6 [lb_av] eCW1 ([facility]) Body mass index (BMI) [Ratio] 28.5 kg/m2 28.5 k g/m2 MEDENT ([facility]) Body weight 161.00 [lb_av] 161.00 [lb_av] MEDEN T ([facility]) Body height 63 [in_i] 63 [in_i] [facility] ([facility]) 5'3" Heart rate 63 /min 63 /min [facility] ([facility]) Diastolic blood pressure 56 mm[Hg] 56 mm[Hg] [facility] ([facility]) Systolic blood pressure 102 mm[Hg] 102 mm[Hg] [facility] ([facility]) Body mass index (BMI) [Ratio] 28.3 kg/m2 28.3 k g/m2 [facility] ([facility]) Oxygen saturation in Arterial blood by Pulse oximetry 97 % 97 % [facility] ([facility]) Air Body weight 160.00 [lb_av] 160.00 [lb_av] MEDEN T ([facility]) Body height 63 [in_i] 63 [in_i] [facility] ([facility]) 5'3" Heart rate 73 /min 73 /min [facility] ([facility]) Diastolic blood pressure 60 mm[Hg] 60 mm[Hg] [facility] ([facility]) Systolic blood pressure 118 mm[Hg] 118 mm[Hg] [facility] ([facility]) Body weight 72.746 kg 72.746 kg [facility] ([facility], ) Body mass index (BMI) [Ratio] 27.5 kg/m2 27.5 k g/m2 [facility] ([facility], ) Body weight 160.38 [lb_av] 160.38 [lb_av] MEDEN T ([facility], ) Body height 64 [in_i] 64 [in_i] [facility] ([facility], ) 5'4" Body temperature 98.1 [degF] 98.1 [degF] [facility] ([facility]) Diastolic blood pressure 87 mm[Hg] 87 mm[Hg] [facility] ([facility]) Systolic blood pressure 147 mm[Hg] 147 mm[Hg] [facility] ([facility]) Body mass index (BMI) [Ratio] 28.2 kg/m2 28.2 k g/m2 [facility] ([facility]) Oxygen saturation in Arterial blood by Pulse oximetry 98 % 98 % [facility] ([facility]) RM Air Body weight 159.00 [lb_av] 159.00 [lb_av] MED[facility] T ([facility]) Body height 63 [in_i] 63 [in_i] [facility] ([facility]) 5'3" Heart rate 86 /min 86 /min [facility] ([facility]) Diastolic blood pressure 84 mm[Hg] 84 mm[Hg] [facility] ([facility]) Systolic blood pressure 130 mm[Hg] 130 mm[Hg] [facility] ([facility]) Body weight 73.540 kg 73.540 kg [facility] ([facility]) Body mass index (BMI) [Ratio] 27.8 kg/m2 27.8 k g/m2 [facility] ([facility]) Body weight 162.12 [lb_av] 162.12 [lb_av] [facility] Body height 64 [in_i] 64 [in_i] [facility] ([facility]) 5'4" Diastolic blood pressure 62 mm[Hg] 62 mm[Hg] [facility] ([facility]) Systolic blood pressure 108 mm[Hg] 108 mm[Hg] [facility] ([facility]) Body mass index (BMI) [Ratio] 28.3 kg/m2 28.3 k g/m2 [facility] ([facility]) Oxygen saturation in Arterial blood by Pulse oximetry 98 % 98 % [facility] ([facility]) RM Air Body weight 160.00 [lb_av] 160.00 [lb_av] [facility] T ([facility]) Body height 63 [in_i] 63 [in_i] [facility] ([facility]) 5'3" Heart rate 84 /min 84 /min [facility] ([facility]) Diastolic blood pressure 90 mm[Hg] 90 mm[Hg] [facility] ([facility]) Systolic blood pressure 140 mm[Hg] 140 mm[Hg] [facility] ([facility]) Body mass index (BMI) [Ratio] 29.6 kg/m2 29.6 k g/m2 [facility] ([facility]) Oxygen saturation in Arterial blood by Pulse oximetry 97 % 97 % [facility] ([facility]) [facility] Body weight 167.00 [lb_av] 167.00 [lb_av] [facility] T ([facility]) Body height 63 [in_i] 63 [in_i] [facility] ([facility]) 5'3" Heart rate 66 /min 66 /min [facility] ([facility]) Diastolic blood pressure 84 mm[Hg] 84 mm[Hg] [facility] ([facility]) Systolic blood pressure 140 mm[Hg] 140 mm[Hg] [facility] ([facility]) Body weight 72.746 kg 72.746 kg [facility] ([facility]) Body mass index (BMI) [Ratio] 27.5 kg/m2 27.5 k g/m2 [facility] ([facility]) Body weight 160.38 [lb_av] 160.38 [lb_av] [facility] Body height 64 [in_i] 64 [in_i] [facility] ([facility]) 5'4" Diastolic blood pressure 83 mm[Hg] 83 mm[Hg] [facility] ([facility]) Systolic blood pressure 152 mm[Hg] 152 mm[Hg] [facility] ([facility]) Body mass index (BMI) [Ratio] 28.7 kg/m2 28.7 k g/m2 [facility] ([facility]) Oxygen saturation in Arterial blood by Pulse oximetry 98 % 98 % [facility] ([facility]) Body weight 162.00 [lb_av] 162.00 [lb_av] MED[facility] T ([facility]) Body height 63 [in_i] 63 [in_i] [facility] ([facility]) 5'3" Heart rate 96 /min 96 /min [facility] ([facility]) Diastolic blood pressure 60 mm[Hg] 60 mm[Hg] [facility] ([facility]) Systolic blood pressure 126 mm[Hg] 126 mm[Hg] [facility] ([facility]) Body mass index (BMI) [Ratio] 25.6 kg/m2 25.6 k g/m2 [facility] ([facility]) Body weight 149.00 [lb_av] 149.00 [lb_av] MEDEN T ([facility]) Body height 64 [in_i] 64 [in_i] [facility] ([facility]) 5'4" Patient Treatment Plan of Care Planned Activity Planned Date Details Description Data Source (s) Losartan Potassium 25 MG Oral Tablet 06/05/2020 12:00:00 AM [facility] Famotidine 40 MG Oral Tablet 05/23/2020 12:00:00 AM [facility] Triamcinolone Acetonide 0.001 MG/MG Topical Ointment 12:00:00 AM EST [facility] ([facility]) Triamcinolone Acetonide 0.001 MG/MG Topical Ointment 12:00:00 AM EST [facility] ([facility]) Triamcinolone Acetonide 0.001 MG/MG Topical Ointment 12:00:00 AM EST eCW1 ([facility]) Triamcinolone Acetonide 0.001 MG/MG Topical Ointment 020 12:00:00 AM EST eC1 ([facility]) Furosemide 20 MG Oral Tablet 07/24/2019 12:00:00 AM EST [facility] Metoprolol Tartrate 25 MG Oral Tablet 07/10/2019 12:00:00 AM EST [facility] quetiapine 25 MG Oral Tablet 06/13/2019 12:00:00 AM EST [facility] Losartan Potassium 50 MG Oral Tablet [facility]
[2020-08-01] MEDS ORDERED: methylPREDNISolone 125MG 2ML VIAL IV STA (05:28)
[2020-08-01] MEDS ORDERED: COMBIVENT RESPIMAT 100-20MCG INHALER 4GM INH SCH (05:30)
[2020-08-01 05:43] LABS: INR 1.29; PROTHROMBIN TIME 16.4 SECONDS (12.5-14.3)
[2020-08-01 05:44] LABS: PARTIAL THROMBOPLASTIN TIME 39.3 SECONDS (24.2-38.5)
--- NOTE | 2020-08-01 05:57 | REPVR ---
PROCEDURE INFORMATION: Exam: XR Chest, 1 View Exam date and time: 08/01/2020 5:30 AM Age: 75 years old Clinical indication: Condition or disease; Other: Elevated wbc TECHNIQUE: Imaging protocol: XR of the chest Views: 1 view. COMPARISON: CT Chest without contrast 07/20/2020 2:25 PM FINDINGS: Lungs: Unremarkable. No consolidation. Pleural spaces: Unremarkable. No pleural effusion. No pneumothorax. Heart/Mediastinum: Unremarkable. No cardiomegaly. Bones/joints: Unremarkable. IMPRESSION: No acute findings. Electronically signed by: Jocelin Luciano On 08/01/2020 05:57:28 AM
[2020-08-01] MEDS ORDERED: cefTRIAXone SOD 2 GM in D5W MINI-BAG PLUS 50 ML IV ONE (06:00)
--- NOTE | 2020-08-01 06:03 | REPVR ---
PROCEDURE INFORMATION: Exam: US Retroperitoneal Limited, Kidneys Exam date and time: 08/01/2020 5:44 AM Age: 75 years old Clinical indication: Abnormal findings; Abnormal lab test; Abnormal kidney function lab tests; Additional info: Silver on ckd3 TECHNIQUE: Imaging protocol: Real-time ultrasound of the retroperitoneum with image documentation. Examination was focused on the kidneys. COMPARISON: 1. RENAL US 09/13/2019 12:[address] ABD PELVIS W/O CONTRAST 07/20/2020 2:25:44 PM FINDINGS: Right kidney: The right kidney is increased in echogenicity but normal in size. No hydronephrosis or stones identified. The right kidney measures 11.7 cm in length. Left kidney: Visibility of the left kidney is limited. The left kidney appears echogenic and small with thinning of the parenchyma, similar to the prior ultrasound. The left kidney measures approximately 8.4 cm in length. There is no hydronephrosis. Intraperitoneal space: The bladder was minimally distended with fluid and appears grossly unremarkable but was not well assessed. IMPRESSION: 1. Small, echogenic left kidney consistent with chronic atrophy, similar to the prior exams. 2. Increased echogenicity but normal size of the right kidney. No hydronephrosis. Electronically signed by: Jocelin Luciano On 08/01/2020 06:03:08 AM
[2020-08-01 06:35] LABS: AMPHETAMINES LEVEL URINE NEGATIVE (NEGATIVE); BARBITURATES URINE NEGATIVE (NEGATIVE); BENZODIAZEPINES URINE POSITIVE (NEGATIVE); CANNABINOIDS URINE NEGATIVE (NEGATIVE); COCAINE METABOLITE URINE NEGATIVE (NEGATIVE); METHADONE URINE NEGATIVE (NEGATIVE); OPIATES URINE POSITIVE (NEGATIVE); PHENCYCLIDINE URINE NEGATIVE (NEGATIVE); POTASSIUM RANDOM URINE 46.9 MEQ/L; TOTAL PROTEIN,RANDOM URINE 297.8 MG/DL (0.0-12.0)
[2020-08-01] MEDS: ACETAMINOPHEN TAB 650MG DOSE (2X325MG) PO PRN ×3 (06:43→20:27)
[2020-08-01] MEDS ORDERED: FLUTICASONE PROP 0.05% NASAL SPRAY 16 GM (FLONASE) NARES PRN (07:45)
[2020-08-01] MEDS: IPRATROPIUM 0.5MG/ALBUTEROL 2.5MG INH SOL UD 3ML (DUONEB) NEB SCH ×3 (08:18→19:32)
[2020-08-01 08:28] LABS: HEMOGLOBIN 8.6 g/dl (12.0-15.5); MEAN CORPUSCULAR HEMOGLOBIN 26.5 pg (27.0-33.0); MEAN CORPUSCULAR HGB CONC 30.7 g/dl (32.0-36.5); MEAN CORPUSCULAR VOLUME 86.2 fl (80.0-96.0); PLATELET COUNT, AUTOMATED 280 10^3/uL (150-450); RED BLOOD COUNT 3.25 10^6/uL (4.00-5.40); WHITE BLOOD COUNT 17.5 10^3/uL (4.0-10.0)
[2020-08-01] MEDS ORDERED: CALCITONIN NASAL SPRAY 3.7 ML BTL SCH (09:00)
[2020-08-01] MEDS ORDERED: NS 1,000 ML IV SCH (09:00)
[2020-08-01] MEDS ORDERED: ENOXAPARIN 30MG/0.3ML SYRINGE (J1650 PER 10MG) SC SCH (09:00)
[2020-08-01] MEDS ORDERED: PANTOPRAZOLE 40MG TAB (PROTONIX) PO SCH (09:00)
[2020-08-01 09:15] LABS: BLOOD UREA NITROGEN 37 MG/DL (7-18); CARBON DIOXIDE LEVEL 16 MEQ/L (21-32); CHLORIDE LEVEL 107 MEQ/L (98-107); CREATININE FOR GFR 4.02 MG/DL (0.55-1.30); GLOMERULAR FILTRATION RATE 11.6 (>39); GLUCOSE, FASTING 94 MG/DL (70-100); POTASSIUM SERUM 3.7 MEQ/L (3.5-5.1); SODIUM LEVEL 138 MEQ/L (136-145)
[2020-08-01 09:16] LABS: ALBUMIN 2.2 GM/DL (3.2-5.2); ALT/SGPT 8 U/L (12-78); BILIRUBIN,TOTAL 0.3 MG/DL (0.2-1.0); CALCIUM LEVEL 7.5 MG/DL (8.8-10.2); COMPLEMENT C3 118 MG/DL (90-180); COMPLEMENT C4 27 MG/DL (10-40); FERRITIN 97 NG/ML (8-252); IRON (FE) 7 UG/DL (50-170); MAGNESIUM LEVEL 1.8 MG/DL (1.8-2.4); PERCENT SATURATION 3.5 % (13.2-45.0); PHOSPHORUS LEVEL 3.6 MG/DL (2.5-4.9); TOTAL IRON BINDING CAPACITY 201 UG/DL (250-450); URIC ACID 5.9 MG/DL (2.6-6.0)
[2020-08-01 09:23] LABS: TOTAL PROTEIN 5.7 GM/DL (6.4-8.2)
[2020-08-01] MEDS: ATORVASTATIN 20 MG TAB PO SCH (09:51)
[2020-08-01] MEDS: predniSONE 20 MG TAB PO SCH (09:51)
[2020-08-01] MEDS: LIDOCAINE 5% (LIDODERM) PATCH TOP SCH (09:51)
[2020-08-01] MEDS: HYDROXYCHLOROQUINE 200 MG TAB PO SCH ×2 (09:51→20:26)
[2020-08-01] MEDS ORDERED: NS 500 ML IV ONE (13:00)
[2020-08-01] MEDS ORDERED: VANCOMYCIN HCL 1,000 MG, VIAL MATE ADAPTER 1 EACH in D5W 250 ML IV ONE (14:00)
[2020-08-01 16:00] VITALS: BP 122/80; O2SAT 96
[2020-08-01] MEDS: SODIUM BICARBONATE 75 MEQ in NS 0.45% 1,000 ML IV SCH (16:43)
[2020-08-01 17:51] LABS: ALBUMIN 2.1 GM/DL (3.2-5.2); CALCIUM LEVEL 7.2 MG/DL (8.8-10.2); CREATININE FOR GFR 4.63 MG/DL (0.55-1.30); GLOMERULAR FILTRATION RATE 9.8 (>39); PHOSPHORUS LEVEL 4.3 MG/DL (2.5-4.9); POTASSIUM SERUM 4.3 MEQ/L (3.5-5.1)
[2020-08-01 19:58] VITALS: O2SAT 92
[2020-08-01 20:00] VITALS: BP 136/65
[2020-08-01] MEDS: **NOTE PATIENT COMMENT** MISC XX SCH (21:00)
--- NOTE | 2020-08-01 21:05 | CR ---
ER NEPHROLOGY CONSULTATION DATE: 08/01/2020 REQUESTING PHYSICIAN: Dr. Linda Ziegler. REASON FOR CONSULTATION: Management of acute renal failure and metabolic encephalopathy. CHIEF COMPLAINT: Patient was brought to the emergency room because of altered mental status. NOTE: History was obtained from patient's chart and from the medical team. Patient herself was unable to provide any reliable history. HISTORY OF PRESENT ILLNESS: Carrie Calero is a 75-year-old female with past medical history of chronic kidney disease stage III with a best baseline creatinine of 1.3 as of previous records. She was brought to the emergency room with altered mental status and confusion. She was unable to provide any history. She was found to have leukocytosis with a white cell count of 20. She had acute renal failure on the labs of 3.1. Patient also had fever spikes with a maximum temperature (T-max) of more than 102 degrees Fahrenheit. She was hypotensive on arrival. She was given intravenous (IV) normal saline bolus and was started on IV ceftriaxone. Nephrology was called for further help in the management of this patient. Patient needed my immediate attention. I emergency saw and evaluated the patient in the emergency room. She was laying in the bed. She was awake and able to answer a few questions, but she was reporting that she was feeling very thirsty and she was asking for more water. PAST MEDICAL HISTORY: 1. Chronic kidney disease stage III, baseline creatinine of 1.3. 2. History of hypertension. 3. Osteoporosis. 4. Hyperlipidemia. 5. History of depression. PAST SURGICAL HISTORY: She was unable to provide me with any past surgical history. ALLERGIES: No known drug allergies. FAMILY HISTORY: No significant family history of end-stage renal disease requiring hemodialysis. SOCIAL HISTORY: Patient lives at home. No history of smoking or illicit drug abuse. REVIEW OF SYSTEMS: Extensive review of systems was tried with this patient; however, because of altered mental status, she was only able to tell me that she is feeling weak and she was thirsty and she had some abdominal discomfort. PHYSICAL EXAMINATION: GENERAL: Patient is awake and drowsy and oriented times two only. VITAL SIGNS: Temperature 99.1 degrees Fahrenheit, blood pressure 122/59, pulse 115, respiratory rate 20, saturating 95% on room air. T-max in the emergency room was 102.4 degrees Fahrenheit. Blood pressure on arrival was 64/40. HEAD AND NECK: Extraocular muscles intact. Pupils equally round and reactive to light. Mucous membranes are very dry. Neck is supple. There is no jugular venous distention (JVD). CARDIOVASCULAR: S1, S2. Tachycardia. No edema of the bilateral lower extremities. RESPIRATORY: Bilateral equal air entry. No active rales or rhonchi were noted. ABDOMEN: Soft. Positive bowel sounds. Nontender. No organomegaly. GENITOURINARY: Bedside bladder scan was done. There was less than 20 mL of urine in the bladder. MUSCULOSKELETAL: No clubbing or cyanosis. Pulses are 2+. 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 She is able to follow commands and move her extremities. LABORATORY DATA: CBC showed a WBC 20, hemoglobin 7.3, platelets of 253. Repeat CBC showed some improvement in WBC at 17.5. INR was 1.29. Urinalysis done today morning showed it was very turbid, 3+ protein, 1+ blood, 3+ leukocyte esterase, too numerous to count WBCs, 2+ bacteria. Urine osmolality was 292 with a total protein of 297. BMP done today morning showed sodium 138, potassium 3.7, chloride 107, bicarbonate 16, BUN 37, creatinine 4.02, uric acid 5.9, calcium 7.5, phosphorus 3.6, magnesium 1.8. Iron 7, total iron binding capacity (TIBC) 201, transferrin saturation 3.5, ferritin 97. TOXICOLOGY: Urine was positive for opiates and benzodiazepines. IMMUNOLOGY: C3 and C4 levels are within the acceptable range. SEROLOGY: Hepatitis B serology is negative. Influenza is negative COVID-19 is negative. MICROBIOLOGY: Blood cultures and urine cultures are pending. IMAGING DATA: A renal ultrasound was done, which showed a small echogenic left kidney consistent with chronic atrophy, increased echogenicity, but normal size of the right kidney. There was no hydronephrosis. Chest x-ray was done today which showed no acute findings. CT of the cervical spine was done which showed scarring or lesion in the right upper lung apex measuring 2.2 cm. CURRENT INPATIENT MEDICATIONS: Patient's medications are all reviewed by myself. She was receiving ceftriaxone 1 gram IV daily. She was given a dose of IV calcium gluconate. She was also given normal saline 1 liter bolus overnight. I also gave her another bolus 500 mL. She was receiving normal saline at 60 mL/hour. I have started her on sodium bicarbonate containing fluid, half-normal saline plus 75 mEq of bicarbonate at 100 mL/hour and normal saline has been stopped. I also gave her a dose of IV vancomycin. She was also given a dose of aspirin. She is on atorvastatin 40 mg daily. She is on Plaquenil 200 mg by mouth twice a day. She was also given a dose of Solu-Medrol 125 mg IV times one dose and she has been started on prednisone 40 mg by mouth daily. ASSESSMENT AND PLAN: 1. Acute renal failure. Patient has acute oliguric renal failure which most likely is associated with sepsis, although there was a concern that patient has proteinuria and there might be some glomerulonephritis. However, at this time I need to treat the patient for infection and once the infection and sepsis is treated, then I will do further proteinuria workup. 2. Severe sepsis. Patient came in with leukocytosis, hypotension, tachycardia and fever with a T-max of more than 102 degrees Fahrenheit. I gave her an additional bolus of 500 mL IV normal saline. She is being covered for gram-negative. I have added IV vancomycin as well. Final cultures and sensitivity are pending. Lauren catheter has been placed to monitor intake and output as well. 3. High anion gap metabolic acidosis. It is secondary to acute renal failure. Patient has been started on IV bicarbonate-containing fluids. 4. Iron deficiency anemia. Patient has a hemoglobin of 8.6. One unit of packed red blood cells has already been ordered. 5. Hypocalcemia. Patient was getting intranasal calcitonin spray. I have stopped the calcitonin. She is not even a candidate for bisphosphonates at this time. She was given IV calcium gluconate. Thank you for involving me in the care of this patient. I shall be able to follow the patient along with you tomorrow morning. Total critical care time spent in the management of this patient today morning in the emergency room excluding all the procedures was 1 hour and 45 minutes.
[2020-08-01 21:33] LABS: ALBUMIN 2.2 GM/DL (3.2-5.2); BILIRUBIN,TOTAL 0.3 MG/DL (0.2-1.0); CALCIUM LEVEL 7.4 MG/DL (8.8-10.2); CREATININE FOR GFR 4.72 MG/DL (0.55-1.30); GLOMERULAR FILTRATION RATE 9.6 (>39); POTASSIUM SERUM 3.7 MEQ/L (3.5-5.1); TOTAL PROTEIN 6.5 GM/DL (6.4-8.2)
[2020-08-01 21:43] LABS: ABG pH (ARTERIAL) 7.315 UNITS (7.350-7.450)
[2020-08-01 21:44] LABS: ABG BASE EXCESS -11.3 (-2.0-2.0); ABG HCO3 13.6 MEQ/L (22.0-26.0); ABG O2 SATURATION 91.7 % (95.0-99.0); ABG PARTIAL PRESSURE CO2 27.4 mmHg (35.0-45.0); ABG PARTIAL PRESSURE O2 63.6 mmHg (75.0-100.0); ABG STANDARD HCO3 15.3 MEQ/L (22.0-26.0); ABG TOTAL CO2 14.5 MEQ/L (23.0-31.0)
[2020-08-01] MEDS ORDERED: MORPHINE 2 MG/ML 1ML VIAL (J2270) IV ONE (22:45)
[2020-08-02] VITALS (7 sets, daily range): BP systolic 120–188; BP diastolic 61–106
[2020-08-02] MEDS: IPRATROPIUM 0.5MG/ALBUTEROL 2.5MG INH SOL UD 3ML (DUONEB) NEB SCH ×4 (02:00→19:43)
[2020-08-02 05:47] LABS: ABG BASE EXCESS -11.1 (-2.0-2.0); ABG HCO3 13.5 MEQ/L (22.0-26.0); ABG O2 SATURATION 98.3 % (95.0-99.0); ABG PARTIAL PRESSURE CO2 26.1 mmHg (35.0-45.0); ABG PARTIAL PRESSURE O2 104.4 mmHg (75.0-100.0); ABG STANDARD HCO3 15.5 MEQ/L (22.0-26.0); ABG TOTAL CO2 14.3 MEQ/L (23.0-31.0); ABG pH (ARTERIAL) 7.333 UNITS (7.350-7.450)
[2020-08-02 06:09] LABS: HEMOGLOBIN 8.1 g/dl (12.0-15.5); MEAN CORPUSCULAR HEMOGLOBIN 26.3 pg (27.0-33.0); MEAN CORPUSCULAR HGB CONC 31.2 g/dl (32.0-36.5); MEAN CORPUSCULAR VOLUME 84.4 fl (80.0-96.0); PLATELET COUNT, AUTOMATED 310 10^3/uL (150-450); RED BLOOD COUNT 3.08 10^6/uL (4.00-5.40)
[2020-08-02 06:19] LABS: WHITE BLOOD COUNT 30.4 10^3/uL (4.0-10.0)
[2020-08-02 06:39] LABS: ALBUMIN 2.3 GM/DL (3.2-5.2); BILIRUBIN,TOTAL 0.3 MG/DL (0.2-1.0); CALCIUM LEVEL 7.2 MG/DL (8.8-10.2); CREATININE FOR GFR 4.83 MG/DL (0.55-1.30); GLOMERULAR FILTRATION RATE 9.4 (>39); TOTAL PROTEIN 5.7 GM/DL (6.4-8.2); VANCOMYCIN RANDOM 14.2 UG/ML
[2020-08-02] MEDS ORDERED: cefTRIAXone SOD 1 GM in D5W MINI-BAG PLUS 50 ML IV SCH (08:00)
[2020-08-02] MEDS: predniSONE 20 MG TAB PO SCH (08:35)
[2020-08-02] MEDS: ATORVASTATIN 20 MG TAB PO SCH (08:35)
[2020-08-02] MEDS: HYDROXYCHLOROQUINE 200 MG TAB PO SCH ×2 (08:35→20:43)
[2020-08-02] MEDS: CEFEPIME HCL 1 GM in D5W MINI-BAG PLUS 50 ML IV SCH (08:47)
[2020-08-02] MEDS ORDERED: VANCOMYCIN HCL 750 MG, VIAL MATE ADAPTER 1 EACH in D5W 250 ML IV SCH (09:00)
[2020-08-02] MEDS ORDERED: VANCOMYCIN HCL 500 MG in D5W MINI-BAG PLUS 100 ML IV SCH (09:00)
[2020-08-02 09:40] LABS: LYMPHOCYTES 4 % (16-44); MONOCYTES 3 % (0-5); NEUTROPHILS 88 % (28-66)
[2020-08-02] MEDS: LIDOCAINE 5% (LIDODERM) PATCH TOP SCH (09:54)
[2020-08-02 09:58] LABS: CRENATED RBC 2+; PLATELET ESTIMATE NORMAL (NORMAL); TOXIC VACUOLATION 1+
[2020-08-02 09:59] LABS: ANISOCYTOSIS 1+; HYPOCHROMASIA 1+; POIKILOCYTOSIS 1+
[2020-08-02] MEDS: SODIUM BICARBONATE 75 MEQ in NS 0.45% 1,000 ML IV SCH (12:26)
[2020-08-02 12:42] LABS: APPEARANCE, URINE HAZY (CLEAR); BACTERIA, URINE AUTO NEGATIVE (NEGATIVE); BILIRUBIN, URINE AUTO NEGATIVE (NEGATIVE); BLOOD, URINE BLOOD 2+ (NEGATIVE); COLOR, URINE YELLOW (YELLOW); GLUCOSE, URINE (UA) AUTO NEGATIVE (NEGATIVE); KETONE, URINE AUTO NEGATIVE (NEGATIVE); LEUKOCYTE ESTERASE, URINE AUTO 3+ (NEGATIVE); NITRITE, URINE AUTO NEGATIVE (NEGATIVE); PROTEIN, URINE AUTO 2+ mg/dL (NEGATIVE); RBC, URINE AUTO 27 /HPF (0-3); SPECIFIC GRAVITY URINE AUTO 1.008 (1.002-1.035); SQUAMOUS EPITHELIAL CELL UR AU 0 /HPF (0-6); UROBILINOGEN, URINE AUTO 0.2 mg/dL (0.0-2.0); WBC, URINE AUTO 42 /HPF (0-3)
--- NOTE | 2020-08-02 12:59 | IPNPDOC ---
Date Seen The patient was seen on 08/02/20. Progress Note SUBJECTIVE: Cr worsened, nephrology following. WBC 30K, worsened so broadened abx while cx pending. Poison control following labs. Denies shortness of breath, n/v/d. OBJECTIVE: PHYSICAL EXAMINATION: VITAL SIGNS: Please see below. GENERAL APPEARANCE: well nourished / well developed / NAD, AAOx 3 HEENT: EOMI CARDIOVASCULAR: RRR/NMRG LUNGS: CTAB, no w/r/r ABDOMEN: obese / soft & NT on palpation MUSCULOSKELETAL: GERMANIA x 4 INTEGUMENT: has generalized pallor NEUROLOGICAL: CN 2-12 intact / speech not dyarthric PSYCHIATRIC: mood and affect appropriate. LABORATORY Please see below IMAGING: Renal US: 1. Small, echogenic left kidney consistent with chronic atrophy, similar to the prior exams. 2. Increased echogenicity but normal size of the right kidney. No hydronephrosis. CT head IMPRESSION: No acute abnormality or significant change. CT cervical spine IMPRESSION: Scarring or lesion in the right upper lung apex measuring 2.2 cm. Correlate with priors or recommend follow-up. Chest xray IMPRESSION: No acute findings. MICROBIOLOGY: Respiratory panel & covid neg BCx pending UA +, UCx pending ASSESSMENT: is a 75 yr old w a hx of CVAs , MDD/LAVERNE , CAD w stents, COPD, , GERD, chronic pain, HTN and DLP who presented w encephalopathy likely due to taking multiple medications; the AMS is resolving she will be admitted for tx of TONEY, acute anemia & UTI, sepsis. PLAN: Encephalopathy, possbily toxic vs. metabolic (polypharmacy vs. infection/sepsis ) -AAOx 3 today -Neuro checks neg -Continue to hold alprazolam, duloxetine, famotidine, gabapentin, methocarbamol, tizanidine & quetiapine and treat UTI below -Poison control following HTN- resolved hypotension -Currently BP high at 160's -Restarting BB and CCB -Continue to hold losartan, nitro, pramipexole. Leukocytosis possibly 2/2 to infection/sepsis vs. steroid-induced -Afebrile, WBC 17.5 --> 30K today -On prednisone (given 125 mg IV on 08/01/20) 40 mg PO daily -Lung have no wheezing, moving air better -Decreased further to prednisone 20 mg PO daily -UTI + with UX and BCx pending -D/monique ceftriaxone, started cefepime to vancomycin for now while cx pending -Daily CBC Acute COPD with mild exacerbation-improving -Currently on 2 L NC; however, can likely try to wean down/off today Possibly triggered by aspiration while she was unresponsive The chest xray and COVID are neg Plan: Solumedrol now / aspiration precautions / DuoNeb Q6H, Albuterol Q4HP, Prednisone / hold of PPI bc it can cause an increase in Cr UTI, sepsis -WBC worsened, afebrile -UX and Bcx pending -Cefepime -Daily labs Acute kidney injury on CKD stage III -Cr worsened today 4.83 -Acute likely oliguric renal failure 2/2 to sepsis, cannot r/o glomerulonephritis per nephro -Based on notes rheumatology was of the opinion that the patient may have some sort of vasculitis and had made plans to refer the patient to Nephro for a biopsy o/p -Holding all nephrotoxic medications, webster catheter in place -Urine: + protein -Once infection improved, then nephrology can further w/u proteinuria -Nephrology following Gapped metabolic acidosis likely 2/2 to acute renal failure, lactic acidosis -ABG: pH 7.33 / pCO2 26.1 / pO2 104 / pHCO3 13.5, improving since last ABG evening of 08/01/20 -LA now wnl -Remains on bicarb fluids, gap improving -F/u daily labs, ABG PRN -Nephrology managing DANIELLE, likely chronic disease -Iron low at 7 but Hgb >8, did not receive 1 unit PRBC -Started on ferrous sulfate BID, would benefit from iron infusion when sepsis resolved -Occult blood pending but no s/s of bleeding Hypokalemia- resolved -wnl this AM -F/u daily labs Lung lesion -F/u w PCP for spiral CT +/- IR consult for biopsy if size is confirmed to be > 1 cm Coronary artery disease status post stent / HLD / HX of multiple CVAs -ASA, statin, BB, CCB Osteoporosis -Hold alendronate bc GFR is <35 Depression/anxiety -Restart cymbalta, seroquel, benzo PRN Chronic Pain -lidocaine patches / hold gabapentin & methocarbamol Chronic Plaquenil use I was unable to find a diagnosis that correlates with the use of this med in recent notes; her PCP had mentioned that the patient had a positive RF and a rash and had made plans to refer her to Derm for a biopsy -Holding plaquenil DVT px -SCDs bc of anemia/ occult blood pending DISPOSITION: Inpatient status. Poison control following, nephrology consulted. Will need PT/OT. VS, I&O, 24H, Fishbone Vital Signs/I&O Vital Signs Date Time Temp Pulse Resp B/P (MAP) Pulse Ox O2 Delivery O2 Flow Rate FiO2 08/02/20 11:33 97.7 111 20 165/76 (105) 92 Nasal Cannula 2.0 I&O- Last 24 Hours up to 6 AM 08/02/20 05:59 Intake Total 1020 ml Output Total 0 ml Balance 1020 ml Laboratory Data 24H LABS Laboratory Tests 2 08/01/20 17:15: Anion Gap 12, Glomerular Filtration Rate 9.8L, Calcium Level 7.2L, Phosphorus Level 4.3, Albumin 2.1L 08/01/20 17:38: Bedside Glucose (Misc Panel) 133H 08/01/20 20:48: Anion Gap 11, Glomerular Filtration Rate 9.6L, Calcium Level 7.4L, Albumin 2.2L, Lactic Acid Level 2.7*H, Total Bilirubin 0.3, Aspartate Amino Transf (AST/SGOT) 10, Alanine Aminotransferase (ALT/SGPT) 8L, Alkaline Phosphatase 96, Total Protein 6.5, Albumin/Globulin Ratio 0.5L 08/01/20 21:34: Blood Gas Bicarbonate Standard 15.3L, Arterial Blood pH 7.315L, Arterial Blood Partial Pressure CO2 27.4L, Arterial Blood Partial Pressure O2 63.6L, Arterial Blood Total CO2 14.5L, Arterial Blood HCO3 13.6L, Arterial Blood Base Excess - 11.3L, Arterial Blood Oxygen Saturation 91.7L 08/02/20 01:13: Lactic Acid Followup at 4 Hours 2.1*H 08/02/20 05:36: Blood Gas Bicarbonate Standard 15.5L, Arterial Blood pH 7.333L, Arterial Blood Partial Pressure CO2 26.1L, Arterial Blood Partial Pressure O2 104.4H, Arterial Blood Total CO2 14.3L, Arterial Blood HCO3 13.5L, Arterial Blood Base Excess - 11.1L, Arterial Blood Oxygen Saturation 98.3 08/02/20 05:54: Neutrophils (%) (Auto) , Nucleated Red Blood Cells % (auto) 0.0, Neutrophils 88H, Band Neutrophils 5, Lymphocytes (Manual) 4L, Monocytes (Manual) 3, Hypochromasia 1+, Poikilocytosis 1+, Anisocytosis 1+, Crenated Cell 2+, Toxic Vacuolation 1+, Platelet Estimate NORMAL, Anion Gap 12, Glomerular Filtration Rate 9.4L, Lactic Acid Level 0.9, Calcium Level 7.2L, Total Bilirubin 0.3, Aspartate Amino Transf (AST/SGOT) 15, Alanine Aminotransferase (ALT/SGPT) 10L, Alkaline Phosphatase 100, Total Protein 5.7L, Albumin 2.3L, Albumin/Globulin Ratio 0.7L, Random Vancomycin Level 14.2 08/02/20 12:23: CBC/BMP Laboratory Tests 08/01/20 17:15 08/01/20 20:48 08/02/20 05:54 Microbiology Microbiology 08/02/20 Blood Culture, Received Pending 08/01/20 Blood Culture - Preliminary, Resulted No growth after 24 hours . All specim... 08/01/20 Urine Culture, Received Pending Current Medications Current Medications Medications (Trade) Dose Ordered Sig/Kate Route PRN Reason Start Time Stop Time Status Last Admin Dose Admin Acetaminophen (Tylenol Tab) 650 mg Q4H PRN PO PAIN OR FEVER 08/01/20 05:15 08/01/20 20:27 Al Hydrox/Mg Hydrox/Simethicone (Mylanta) 30 ml DAILY PRN PO DYSPEPSIA 08/01/20 05:15 Albuterol Sulfate (Proventil, Ventolin Hfa) 2 puff Q4H PRN INH SOB/WHEEZING 08/02/20 13:00 Albuterol/ Ipratropium (Combivent Respimat 100-20mcg) 1 puff Q6H INH 08/01/20 05:30 08/01/20 05:41 DC Albuterol/ Ipratropium (Duoneb (Ipr 0.5mg/Alb 2.5mg)) 3 ml RQ6H NEB 08/01/20 08:00 08/02/20 08:01 Amlodipine Besylate (Norvasc) 5 mg BID PO 08/02/20 09:00 Atorvastatin Calcium (Lipitor) 40 mg DAILY PO 08/01/20 09:00 08/02/20 08:35 Calcitonin [place] (Miacalcin (Fortical)) 1 sprays DAILY NA 08/01/20 09:00 08/01/20 12:37 DC 08/01/20 09:51 Cefepime HCl 1 gm/ Dextrose 50 ml @ 100 mls/hr Q24H IV 08/02/20 08:00 08/02/20 08:47 Ceftriaxone Sodium 1 gm/ Dextrose 50 ml @ 100 mls/hr Q24H IV 08/02/20 08:00 08/02/20 07:22 DC Enoxaparin Sodium (Lovenox) 30 mg DAILY SC 08/01/20 09:00 08/01/20 08:22 DC Fluticasone Propionate (Flonase 0.05% Nasal [place]) 1 spray DAILY PRN NARES CONGESTION 08/01/20 07:45 Home Med (Med Rec Complete!) ASDIRECTED XX 08/01/20 03:45 08/01/20 03:40 DC Hydroxychloroquine Sulfate (Plaquenil) 200 mg BID PO 08/01/20 09:00 08/02/20 08:35 Lidocaine (Lidoderm Patch) 1 patch DAILY TOP 08/01/20 09:00 08/02/20 09:54 Magnesium Hydroxide (Milk Of Magnesia) 30 ml DAILY PRN PO CONSTIPATION 08/01/20 05:15 08/01/20 08:22 DC Methylprednisolone (SOLUmedrol) 125 mg STAT STAT IV 08/01/20 05:28 08/01/20 05:30 DC 08/01/20 07:28 Metoprolol Tartrate (Lopressor) 25 mg DAILY PO 08/02/20 09:00 Non-Formulary Medication ( See Comment Field Below ) REMOVE LIDODERM PATCH DAILY@21 XX 08/01/20 21:00 08/01/20 21:00 Pantoprazole Sodium (Protonix) 40 mg DAILY PO 08/01/20 09:00 08/01/20 08:22 DC Pantoprazole Sodium (Protonix) 40 mg DAILY PO 08/02/20 09:00 Prednisone (Deltasone) 20 mg DAILY PO 08/03/20 09:00 Prednisone (Deltasone) 40 mg DAILY PO 08/01/20 09:00 08/02/20 12:51 DC 08/02/20 08:35 Sodium Bicarbonate 75 meq/Sodium Chloride 1,075 ml @ 40 mls/hr Q24H IV 08/01/20 15:00 08/03/20 07:49 08/02/20 12:26 Sodium Chloride 1,000 ml @ 60 mls/hr [id number] IV 08/01/20 09:00 08/01/20 12:38 DC 08/01/20 09:52 Sodium Chloride (Nacl 0.9%) 999 ml BOLUS IV 08/01/20 05:15 08/01/20 05:19 DC 08/01/20 06:44 Vancomycin HCl 500 mg/Dextrose 110 ml @ 110 mls/hr Q24H IV 08/02/20 09:00 08/02/20 06:46 DC Vancomycin HCl 750 mg/IV Miscellaneous Supplies 1 each/ Dextrose 275 ml @ 275 mls/hr Q24H IV 08/02/20 09:00 08/02/20 12:09 DC 08/02/20 09:54 Allergies Coded Allergies: No Known Allergies (Unverified , 12/19/18) Yandy Esposito MD Aug 02, 2020 12:59
[2020-08-02] MEDS ORDERED: ALBUTEROL 90 MCG/ACT 8GM HFA INHALER INH PRN (13:00)
[2020-08-02 13:10] LABS: CREATININE,RANDOM URINE 44.5 MG/DL; TOTAL PROTEIN,RANDOM URINE 120.6 MG/DL (0.0-12.0)
[2020-08-02] MEDS: PANTOPRAZOLE 40MG TAB (PROTONIX) PO SCH (14:43)
[2020-08-02] MEDS: ASPIRIN 81 MG ENTERIC TAB PO SCH (14:44)
[2020-08-02] MEDS: amLODIPine 5 MG TAB PO SCH ×2 (14:44→20:46)
[2020-08-02] MEDS: ACETAMINOPHEN TAB 650MG DOSE (2X325MG) PO PRN (14:44)
[2020-08-02] MEDS: FERROUS SULFATE 325MG TAB PO SCH ×2 (14:44→20:43)
[2020-08-02] MEDS: METOPROLOL TART 25 MG TABLET PO SCH (14:44)
--- NOTE | 2020-08-02 16:10 | IPN ---
NEPHROLOGY PROGRESS NOTE DATE: 08/02/2020 SUBJECTIVE: Patient was seen and examined at the bedside today morning. I was told by the nursing staff that patient was having wheezing overnight and I.V. fluid was stopped. She has a Lauren catheter right now, currently making around 30 to 40 cc an hour. Leukocytosis is worse today as compared with yesterday. No significant improvement in the renal function at this point. Creatinine remains high, however, lactic acidosis is better with the I.V. fluid hydration. She was given broad spectrum I.V. antibiotics yesterday. Her mental status is significantly better today as compared with yesterday. OBJECTIVE: VITAL SIGNS: Temperature 96.7 degrees Fahrenheit, blood pressure 165/76, pulse 111, respiratory rate 20, saturating 92% on nasal cannula at 2 liters. INTAKE AND OUTPUT: Urine output recorded as 505 mL. Weight in the bed scale is 73 kg. PHYSICAL EXAMINATION: GENERAL: Patient is awake, alert and oriented x2, lying in bed, in no apparent distress. HEAD/NECK: Extraocular muscles intact. Pupils equally round and reactive to light. Mucous membranes are moist. Neck is supple. Mildly elevated JVD. CARDIOVASCULAR: S1, S2, tachycardia. No significant edema of the bilateral lower extremities. RESPIRATORY: Mildly decreased breath sounds at the bases with mild inspiratory crackles at the bases bilaterally. ABDOMEN: Soft, positive bowel sounds, nontender. No organomegaly. GENITOURINARY: She has an indwelling Lauren catheter. Urine in the Lauren is slightly hazy; it is a lot better today as compared with yesterday. MUSCULOSKELETAL: No clubbing or cyanosis. Pulses are 2+. REHAB SERVICES AIDE: No focal deficit. Power is 5/5 in all extremities. LABORATORY REVIEW: CBC showed WBC 13.4, hemoglobin 8.1, platelets 310,000. BMP showed sodium 133, potassium 4, chloride 103, bicarb 18, BUN 49, creatinine 4.8, glucose 102. Lactic acid 0.9. Calcium 7.2. Toxicology: Random Vancomycin level is 14.2. Urine random protein today is 120 and random creatinine is 44.5. Urine white cell count is better today as compared with yesterday. MICROBIOLOGY: Blood cultures are negative. Urine cultures are still pending. CURRENT INPATIENT MEDICATIONS: Patient's medications were all reviewed by myself. Her I.V. fluid rate was decreased to sodium bicarbonate fluid at 40 cc an hour; she will finish the second batch. I.V. antibiotic has been changed to Cefepime. She was on Vancomycin, which has been stopped now because patient is oliguric and there is risk of Vancomycin accumulation and renal failure. She has been started on Amlodipine 5 mg p.o. twice a day. Her prednisone has been decreased to 20 mg p.o. daily. ASSESSMENT AND PLAN: 1. Acute renal failure: Patient has echogenic kidneys and atrophic left kidney. Acute renal failure most likely secondary to sepsis associated with urinary tract infection. Blood pressures are better now. I.V. fluids will be stopped after 2 liters. No urgent need of hemodialysis at this time. I am hopeful that her renal function will start recovering. Electrolytes are within the acceptable range at this time. 2. Metabolic acidosis: It is secondary to acute renal failure. Patient is getting bicarb in the I.V. fluids. Bicarb level is slowly improving. If needed, she will started on oral Bicitra. 3. Severe sepsis: Secondary to urinary tract infection. Lactic acid level is improving. She still has leukocytosis. Continue Cefepime and Vancomycin. Vancomycin was held today because levels are within the acceptable range. 4. Acute COPD exacerbation: Patient was given steroids. Currently her bleeding is getting better. Continue DuoNebs and antibiotics at this time. Prednisone is being tapered down by medical team. 5. Proteinuria: I believe that the proteinuria is most likely associated with urinary tract infection, however, I have ordered the serology to rule out glomerulonephritis. No urgent need of renal biopsy at this time in active infection. 6. History of osteoporosis: Avoid use of bisphosphonates at this time.
[2020-08-02] MEDS ORDERED: hydrALAZINE 20MG/ML 1ML VIAL (J0360 PER 20MG) IV PRN (18:00)
[2020-08-02] MEDS: DULoxetine 30 MG CAP (CYMBALTA) PO SCH (20:43)
[2020-08-02] MEDS: ALPRAZolam 0.5 MG TAB PO PRN (20:43)
[2020-08-02] MEDS: QUEtiapine FUMARATE 25 MG TAB PO SCH (20:43)
[2020-08-02] MEDS: **NOTE PATIENT COMMENT** MISC XX SCH (21:08)
[2020-08-03] VITALS: BP 120/88
[2020-08-03] MEDS: IPRATROPIUM 0.5MG/ALBUTEROL 2.5MG INH SOL UD 3ML (DUONEB) NEB SCH ×4 (02:00→19:32)
[2020-08-03 04:00] VITALS: BP 141/57
[2020-08-03 08:00] VITALS: BP 108/57
[2020-08-03] MEDS ORDERED: SLF 3 ML SYR IV PRN (08:00)
[2020-08-03 08:26] LABS: HEMATOCRIT 26.5 % (36.0-47.0); HEMOGLOBIN 8.7 g/dl (12.0-15.5); MEAN CORPUSCULAR HEMOGLOBIN 26.9 pg (27.0-33.0); MEAN CORPUSCULAR HGB CONC 32.8 g/dl (32.0-36.5); PLATELET COUNT, AUTOMATED 296 10^3/uL (150-450); RED BLOOD COUNT 3.23 10^6/uL (4.00-5.40); WHITE BLOOD COUNT 27.2 10^3/uL (4.0-10.0)
--- NOTE | 2020-08-03 08:36 | REP ---
INDICATION: incr O2 requirement, SOB. COMPARISON: Comparison portable chest x-ray 01 August 2020. TECHNIQUE: Two views.. FINDINGS: There is a new perihilar pattern of pulmonary parenchymal opacification predominantly interstitial. The pleural angles are sharp. Heart size is normal. This is upper lobe predominant. IMPRESSION: New bilateral perihilar interstitial infiltrates in the upper lobes consistent with pneumonia. Pulmonary edema less likely. Normal heart size.. <Electronically signed by Christiano Chris > 08/03/20 [id number]
[2020-08-03] MEDS ORDERED: predniSONE 20 MG TAB PO SCH (09:00)
[2020-08-03] MEDS: FERROUS SULFATE 325MG TAB PO SCH ×2 (09:10→20:27)
[2020-08-03] MEDS: LIDOCAINE 5% (LIDODERM) PATCH TOP SCH (09:10)
[2020-08-03] MEDS: PANTOPRAZOLE 40MG TAB (PROTONIX) PO SCH (09:10)
[2020-08-03] MEDS: CEFEPIME HCL 1 GM in D5W MINI-BAG PLUS 50 ML IV SCH (09:10)
[2020-08-03] MEDS: ATORVASTATIN 20 MG TAB PO SCH (09:10)
[2020-08-03] MEDS: ASPIRIN 81 MG ENTERIC TAB PO SCH (09:10)
[2020-08-03] MEDS: HYDROXYCHLOROQUINE 200 MG TAB PO SCH ×2 (09:10→20:27)
[2020-08-03] MEDS: amLODIPine 5 MG TAB PO SCH (09:11)
[2020-08-03] MEDS: METOPROLOL TART 25 MG TABLET PO SCH (09:11)
[2020-08-03] MEDS: DULoxetine 30 MG CAP (CYMBALTA) PO SCH ×2 (09:11→20:27)
[2020-08-03 09:22] LABS: ALBUMIN 2.1 GM/DL (3.2-5.2); BILIRUBIN,TOTAL 0.3 MG/DL (0.2-1.0); CALCIUM LEVEL 7.4 MG/DL (8.8-10.2); CALCIUM LEVEL 7.5 MG/DL (8.8-10.2); CREATININE FOR GFR 5.1 MG/DL (0.55-1.30); CREATININE FOR GFR 5.19 MG/DL (0.55-1.30); GLOMERULAR FILTRATION RATE 8.6 (>39); GLOMERULAR FILTRATION RATE 8.8 (>39); POTASSIUM SERUM 3.6 MEQ/L (3.5-5.1); POTASSIUM SERUM 3.7 MEQ/L (3.5-5.1); TOTAL PROTEIN 5.4 GM/DL (6.4-8.2); TOTAL PROTEIN 5.5 GM/DL (6.4-8.2); VANCOMYCIN LEVEL TROUGH 17.3 UG/ML (10.0-20.0)
[2020-08-03] MEDS ORDERED: FUROSEMIDE 40MG/4ML VIAL (J1940) IV ONE (10:00)
[2020-08-03 12:00] VITALS: BP 112/62
[2020-08-03] MEDS: BICITRA 30ML SOLN UDC PO SCH ×3 (12:55→20:26)
[2020-08-03 13:02] LABS: PTH INTACT 116.5 PG/ML (18.5-88.0); TOTAL 25(OH) VITAMIN D 10.3 NG/ML (30.0-100.0)
[2020-08-03 13:03] LABS: HEPATITIS B SURFACE ANTIBODY NEGATIVE (POSITIVE); VITAMIN B12 LEVEL 408 PG/ML (247-911)
[2020-08-03 13:04] LABS: FOLATE 5.7 NG/ML (>5.4)
--- NOTE | 2020-08-03 13:09 | IPN ---
PROGRESS NOTE DATE: 08/03/2020 SUBJECTIVE: Patient was seen and examined at the bedside today morning. Her mental status is significantly better today as compared with yesterday. Last 24 hour events were noted. Patient's blood pressures were elevated last night and hypertensive regimen was increased by the medical team. There is no significant improvement in the renal function. Creatinine remains high. She continues to be on low dose intravenous (IV) fluid. She was found to have Escherichia (E) coli in the urine culture and she continues to be on IV antibiotics. OBJECTIVE: VITAL SIGNS: Temperature 96.9 degrees Fahrenheit, blood pressure 108/57, pulse 94, respiratory rate 20, saturating 96% on nasal cannula on 2 liters. INTAKE AND OUTPUT: Urine output recorded is 1 liter yesterday, 400 mL so far today since overnight. Weight in the bed scale is 73.4 kg. PHYSICAL EXAMINATION: GENERAL: Patient is awake, alert, oriented times three, laying in the bed, no apparent distress. HEAD AND NECK EXAM: Extraocular muscles intact. Pupils equally round and reactive to light. Mucous membranes are moist. Neck is supple. Mildly elevated jugular venous distention (JVD) was noted. CARDIOVASCULAR: S1, S2. Regular rate. Trace edema of the bilateral lower extremities. RESPIRATORY: Mildly decreased breath sounds at the bases with inspiratory crackles at the bases. ABDOMEN: Soft. Positive bowel sounds. Nontender. GENITOURINARY: She has an indwelling Lauren catheter. MUSCULOSKELETAL: No clubbing or cyanosis. Pulses are 2+. CENTRAL NERVOUS SYSTEM (SQL REPORT ANALYST): No focal deficits. Power is 5/5 in all extremities. LABORATORY REVIEW: CBC showed a WBC 27.2, hemoglobin 8.7, platelets 296. BMP done today morning showed sodium 139, potassium 3.6, chloride 107, bicarbonate 18, BUN 59, creatinine 5.1, it was 5.1 yesterday as well, calcium 7.4. Pro-BNP 42,169. Immunology and serology is pending. MICROBIOLOGY: Urine cultures growing Escherichia (E) coli, with is sensitive to third generation cephalosporins. CURRENT INPATIENT MEDICATIONS: Patient's medications were all reviewed by myself. IV bicarbonate fluid has been stopped. Vancomycin has been stopped. She continues to be on IV cefepime. She has been started on amlodipine 5 mg by mouth twice a day. I have started her on Bicitra 10 mL by mouth three times a day. Patient was given a dose of Lasix 40 mg IV times one dose and prednisone has been stopped. ASSESSMENT AND PLAN: 1. Acute nonoliguric renal failure. Patient had urinary tract infection on arrival and she had severe sepsis. She also has echogenic kidneys and atrophic left kidney on imaging. IV fluids are being stopped because of elevated blood pressures and signs of fluid overload on examination. I actually gave her a dose of Lasix today. 2. Metabolic acidosis. IV's are being stopped. She was started on oral Bicitra. 3. Chronic obstructive pulmonary disease (COPD). Prednisone has been stopped. She is already on IV antibiotics, which should cover any infection in the lungs. 4. Escherichia (E) coli urinary tract infection. Patient is currently on third generation cephalosporin. Vancomycin has been stopped. Leukocytosis is slowly improving. 5. Proteinuria. Most likely this is associated with urinary tract infection; however, autoimmune serology was already sent yesterday. 6. Congestive heart failure. Patient has elevated BNP. She was given IV fluids and she is in acute renal failure. Latest echocardiogram done during last month showed a preserved left ventricular (LV) systolic function. Lasix 40 mg IV was given. Continue current dose of metoprolol 25 mg by mouth daily. Amlodipine dose will be decreased because patient would tend to get hypotensive with the higher dose.,
[2020-08-03 13:14] LABS: HEPATITIS B SURFACE ANTIGEN NEGATIVE (NEGATIVE)
[2020-08-03 13:39] LABS: HEPATITIS B CORE ANTIBODY IGM NEGATIVE (NEGATIVE)
--- NOTE | 2020-08-03 14:54 | IPNPDOC ---
Date Seen The patient was seen on 08/03/20. Progress Note SUBJECTIVE: Cr worsened, WBC slightly improved. BNP worsened, given lasix today. Denies shortness of breath, n/v/d. OBJECTIVE: PHYSICAL EXAMINATION: VITAL SIGNS: Please see below. GENERAL APPEARANCE: well nourished / well developed / NAD sitting in bed , AAOx 3 HEENT: EOMI CARDIOVASCULAR: RRR/NMRG LUNGS: crackels in b/l post lung warner , no w/r/r ABDOMEN: obese / soft & NT on palpation MUSCULOSKELETAL: GERMANIA x 4 INTEGUMENT: has generalized pallor NEUROLOGICAL: CN 2-12 intact / speech not dyarthric PSYCHIATRIC: mood and affect appropriate. LABORATORY Please see below IMAGING: CXR: New bilateral perihilar interstitial infiltrates in the upper lobes consistent with pneumonia. Pulmonary edema less likely. Normal heart size. Renal US: 1. Small, echogenic left kidney consistent with chronic atrophy, similar to the prior exams. 2. Increased echogenicity but normal size of the right kidney. No hydronephrosis. CT head IMPRESSION: No acute abnormality or significant change. CT cervical spine IMPRESSION: Scarring or lesion in the right upper lung apex measuring 2.2 cm. Correlate with priors or recommend follow-up. Chest xray IMPRESSION: No acute findings. Echocardiogram 07/2020: EF 60-65% 1. Study is of acceptable technical quality, underlying sinus rhythm. 2. Normal LV size with preserved LV systolic function and grade 1 diastolic dysfunction. 3. Aortic sclerosis, but no stenosis or insufficiency. 4. Trace mitral and tricuspid insufficiency. 5. Likely normal central venous pressure and normal pulmonary artery pressure. MICROBIOLOGY: Respiratory panel & covid neg BCx pending UA +, UCx pending ASSESSMENT: is a 75 yr old w a hx of CVAs , MDD/LAVERNE , CAD w stents, COPD, , GERD, chronic pain, HTN and DLP who presented w encephalopathy likely due to taking multiple medications; the AMS is resolving she will be admitted for tx of TONEY, acute anemia & UTI, sepsis. PLAN: Increased SOB likely multifactorial 2/2 to PNA, acute COPD with mild exacerbation, CHF exacerbation -Currently saturating well on 4 L NC -See individual treatment plans below Acute on chronic HFpEF with exacerbation -Last echo above, on 4 L NC, increased O2 demand overnight -Sodium bicarb gtt stopped -BNP 32321 -CXR: above, procalcitonin ordered. If neg, likely pulmonary edema seen -lasix dose given by nephrology, careful with TONEY, webster in place -C/w BB, CCB, holding losartan -If worsens, consider cardiology consult. -Monitor I&O's, daily wt, low salt/renal diet. HCAP vs. pulmonary edema on CXR -On Cefepime to cover both E. coli UTI and possible PnA -HF/polmonary edema tx above -F/u sputum cx if able, f/u procalcitonin- if normal/low can likely r/o PNA -MRSA pending, if + add vanco Acute COPD with mild exacerbation -Improving, no wheezing -Steroids stopped, c/w nebs, treatment above E. coli UTI, sepsis -WBC improved slightly, afebrile -Bcx NG -Cefepime -Daily labs Acute kidney injury on CKD stage III -Cr worsened today 5.10 -Acute likely oliguric renal failure 2/2 to sepsis, cannot r/o gl omerulonephritis per nephro -Based on notes rheumatology was of the opinion that the patient may have some sort of vasculitis and had made plans to refer the patient to Nephro for a biopsy o/p -Holding all nephrotoxic medications except for intermittent diuresis by nephro, webster catheter in place -Urine: + protein -Once infection improved, then nephrology can further w/u proteinuria -Nephrology following HTN -BP systolic 108-140 mmHg -Stopped gentle sodium bicarb gtt -C/w BB and CCB -Continue to hold losartan, nitro, pramipexole. Gapped metabolic acidosis likely 2/2 to acute renal failure, lactic acidosis- improved -LA now wnl -Stopped bicarb fluids, gap improving -F/u daily labs -Nephrology managing DANIELLE, likely chronic disease -Iron low at 7 but Hgb >8, did not receive 1 unit PRBC -Started on ferrous sulfate BID, would benefit from iron infusion when sepsis resolved -Occult blood pending but no s/s of bleeding Lung lesion -F/u w PCP for spiral CT +/- IR consult for biopsy if size is confirmed to be > 1 cm Coronary artery disease status post stent / HLD / HX of multiple CVAs -ASA, statin, BB, CCB Osteoporosis -Hold alendronate bc GFR is <35 Depression/anxiety -Restart cymbalta, seroquel, benzo PRN Chronic Pain -lidocaine patches / hold gabapentin & methocarbamol Chronic Plaquenil use I was unable to find a diagnosis that correlates with the use of this med in recent notes; her PCP had mentioned that the patient had a positive RF and a rash and had made plans to refer her to Derm for a biopsy -Holding plaquenil DVT px -SCDs bc of anemia/ occult blood pending REsolved issues: Encephalopathy, possbily toxic vs. metabolic (polypharmacy vs. infection/sepsis ) Hypokalemia DISPOSITION: Inpatient status. Nephrology consulted. Will need PT/OT. VS, I&O, 24H, Fishbone Vital Signs/I&O Vital Signs Date Time Temp Pulse Resp B/P (MAP) Pulse Ox O2 Delivery O2 Flow Rate FiO2 08/03/20 12:00 97.3 89 18 112/62 (79) 89 Non-Rebreather 6.0 I&O- Last 24 Hours up to 6 AM 08/03/20 06:00 Intake Total 1120 ml Output Total 1175 ml Balance -55 ml Laboratory Data 24H LABS Laboratory Tests 2 08/03/20 07:54: 08/03/20 08:02: Nucleated Red Blood Cells % (auto) 0.2H, Anion Gap 14, Glomerular Filtration Rat e 8.8L, Calcium Level 7.4L, Total Bilirubin 0.3, Aspartate Amino Transf (AST/SGOT) 16, Alanine Aminotransferase (ALT/SGPT) 11L, Alkaline Phosphatase 98, ID-Dpm-G-Type Natriuretic Peptide 64988M, Total Protein 5.4L, Albumin 2.1L, Albumin/Globulin Ratio 0.6L, Vancomycin Level Trough 17.3 CBC/BMP Laboratory Tests 08/03/20 08:02 Microbiology Microbiology 08/02/20 Blood Culture - Preliminary, Resulted No growth after 24 hours . All specim... 08/01/20 Blood Culture - Preliminary, Resulted No Growth after 48 hours. All Specime... 08/01/20 Urine Culture - Final, Complete Escherichia Coli Current Medications Current Medications Medications (Trade) Dose Ordered Sig/Kate Route PRN Reason Start Time Stop Time Status Last Admin Dose Admin Acetaminophen (Tylenol Tab) 650 mg Q4H PRN PO PAIN OR FEVER 08/01/20 05:15 08/02/20 14:44 Al Hydrox/Mg Hydrox/Simethicone (Mylanta) 30 ml DAILY PRN PO DYSPEPSIA 08/01/20 05:15 Albuterol Sulfate (Proventil, Ventolin Hfa) 2 puff Q4H PRN INH SOB/WHEEZING 08/02/20 13:00 Albuterol/ Ipratropium (Combivent Respimat 100-20mcg) 1 puff Q6H INH 08/01/20 05:30 08/01/20 05:41 DC Albuterol/ Ipratropium (Duoneb (Ipr 0.5mg/Alb 2.5mg)) 3 ml RQ6H NEB 08/01/20 08:00 08/03/20 13:17 Alprazolam (Xanax) 0.5 mg QHS PRN PO ANXIETY/AGITATION 08/02/20 13:30 08/02/20 20:43 Amlodipine Besylate (Norvasc) 5 mg BID PO 08/02/20 09:00 08/03/20 11:59 DC 08/03/20 09:11 Amlodipine Besylate (Norvasc) 5 mg DAILY PO 08/04/20 09:00 Aspirin (Ecotrin) 81 mg DAILY PO 08/02/20 09:00 08/03/20 09:10 Atorvastatin Calcium (Lipitor) 40 mg DAILY PO 08/01/20 09:00 08/03/20 09:10 Calcitonin [place] (Miacalcin (Fortical)) 1 sprays DAILY NA 08/01/20 09:00 08/01/20 12:37 DC 08/01/20 09:51 Cefepime HCl 1 gm/ Dextrose 50 ml @ 100 mls/hr Q24H IV 08/02/20 08:00 08/03/20 09:10 Ceftriaxone Sodium 1 gm/ Dextrose 50 ml @ 100 mls/hr Q24H IV 08/02/20 08:00 08/02/20 07:22 DC Citric Acid/ Sodium Citrate (Bicitra) 10 ml TID PO 08/03/20 09:00 08/06/20 08:59 08/03/20 12:55 Duloxetine HCl (Cymbalta) 60 mg BID PO 08/02/20 21:00 08/03/20 09:11 Enoxaparin Sodium (Lovenox) 30 mg DAILY SC 08/01/20 09:00 08/01/20 08:22 DC Ferrous Sulfate (Ferrous Sulfate) 325 mg BID PO 08/02/20 09:00 08/03/20 09:10 Fluticasone Propionate (Flonase 0.05% Nasal [place]) 1 spray DAILY PRN NARES CONGESTION 08/01/20 07:45 Home Med (Med Rec Complete!) ASDIRECTED XX 08/01/20 03:45 08/01/20 03:40 DC Hydralazine HCl (Apresoline) 10 mg Q8HP PRN IV SEE PROTOCOL 08/02/20 18:00 08/02/20 18:09 Hydroxychloroquine Sulfate (Plaquenil) 200 mg BID PO 08/01/20 09:00 08/03/20 09:10 Lidocaine (Lidoderm Patch) 1 patch DAILY TOP 08/01/20 09:00 08/03/20 09:10 Magnesium Hydroxide (Milk Of Magnesia) 30 ml DAILY PRN PO CONSTIPATION 08/01/20 05:15 08/01/20 08:22 DC Methylprednisolone (SOLUmedrol) 125 mg STAT STAT IV 08/01/20 05:28 08/01/20 05:30 DC 08/01/20 07:28 Metoprolol Tartrate (Lopressor) 25 mg DAILY PO 08/02/20 09:00 08/03/20 09:11 Non-Formulary Medication ( See Comment Field Below ) REMOVE LIDODERM PATCH DAILY@21 XX 08/01/20 21:00 08/02/20 21:08 Pantoprazole Sodium (Protonix) 40 mg DAILY PO 08/01/20 09:00 08/01/20 08:22 DC Pantoprazole Sodium (Protonix) 40 mg DAILY PO 08/02/20 09:00 08/03/20 09:10 Prednisone (Deltasone) 20 mg DAILY PO 08/03/20 09:00 08/03/20 09:25 DC 08/03/20 09:11 Prednisone (Deltasone) 40 mg DAILY PO 08/01/20 09:00 08/02/20 12:51 DC 08/02/20 08:35 Quetiapine Fumarate (SEROquel) 25 mg QHS PO 08/02/20 21:00 08/02/20 20:43 Sodium Bicarbonate 75 meq/Sodium Chloride 1,075 ml @ 40 mls/hr Q24H IV 08/01/20 15:00 08/03/20 07:49 DC 08/02/20 12:26 Sodium Chloride 1,000 ml @ 60 mls/hr [id number] IV 08/01/20 09:00 08/01/20 12:38 DC 08/01/20 09:52 Sodium Chloride (Nacl 0.9%) 999 ml BOLUS IV 08/01/20 05:15 08/01/20 05:19 DC 08/01/20 06:44 Sodium Chloride (Saline Lock Flush) 2 ml ASDIRECTED PRN IV SEE LABEL COMMENTS 08/03/20 08:00 Sodium Chloride (Saline Lock Flush) 2 ml SLF IV 08/03/20 14:00 Vancomycin HCl 500 mg/Dextrose 110 ml @ 110 mls/hr Q24H IV 08/02/20 09:00 08/02/20 06:46 DC Vancomycin HCl 750 mg/IV Miscellaneous Supplies 1 each/ Dextrose 275 ml @ 275 mls/hr Q24H IV 08/02/20 09:00 08/02/20 12:09 DC 08/02/20 09:54 Allergies Coded Allergies: No Known Allergies (Unverified , 12/19/18) Yandy Esposito MD Aug 03, 2020 14:54
[2020-08-03] MEDS: SLF 3 ML SYR IV SCH ×2 (14:58→20:28)
[2020-08-03 15:26] LABS: CREATININE, URINE 29.5 MG/DL; URINE TOTAL PROTEIN 69.2 MG/DL (0-12)
[2020-08-03 15:58] VITALS: BP 128/60
[2020-08-03 20:00] VITALS: BP 125/60
[2020-08-03] MEDS: QUEtiapine FUMARATE 25 MG TAB PO SCH (20:27)
[2020-08-03] MEDS: **NOTE PATIENT COMMENT** MISC XX SCH (20:28)
[2020-08-04] VITALS (20 sets, daily range): BP systolic 95–142; BP diastolic 52–94; O2SAT 93
[2020-08-04] MEDS: IPRATROPIUM 0.5MG/ALBUTEROL 2.5MG INH SOL UD 3ML (DUONEB) NEB SCH ×4 (00:19→19:57)
[2020-08-04 05:30] LABS: HEMATOCRIT 25.7 % (36.0-47.0); HEMOGLOBIN 8.3 g/dl (12.0-15.5); MEAN CORPUSCULAR HEMOGLOBIN 25.9 pg (27.0-33.0); MEAN CORPUSCULAR HGB CONC 32.3 g/dl (32.0-36.5); MEAN CORPUSCULAR VOLUME 80.3 fl (80.0-96.0); PLATELET COUNT, AUTOMATED 251 10^3/uL (150-450); WHITE BLOOD COUNT 21.3 10^3/uL (4.0-10.0)
[2020-08-04 06:08] LABS: ALBUMIN 2.1 GM/DL (3.2-5.2); BILIRUBIN,TOTAL 0.7 MG/DL (0.2-1.0); CALCIUM LEVEL 7.9 MG/DL (8.8-10.2); CREATININE FOR GFR 5.21 MG/DL (0.55-1.30); GLOMERULAR FILTRATION RATE 8.6 (>39); POTASSIUM SERUM 3.4 MEQ/L (3.5-5.1); TOTAL PROTEIN 5.5 GM/DL (6.4-8.2)
[2020-08-04] MEDS: SLF 3 ML SYR IV SCH ×3 (06:59→21:07)
[2020-08-04] MEDS ORDERED: FUROSEMIDE 100MG/10ML VIAL (J1940) IV STA ×2 (07:25→10:37)
[2020-08-04] MEDS: CEFEPIME HCL 1 GM in D5W MINI-BAG PLUS 50 ML IV SCH (07:42)
[2020-08-04] MEDS: BICITRA 30ML SOLN UDC PO SCH ×3 (07:43→21:00)
[2020-08-04] MEDS: ATORVASTATIN 20 MG TAB PO SCH (07:44)
[2020-08-04] MEDS: DULoxetine 30 MG CAP (CYMBALTA) PO SCH ×2 (07:44→21:00)
[2020-08-04] MEDS: HYDROXYCHLOROQUINE 200 MG TAB PO SCH (07:44)
[2020-08-04] MEDS: ASPIRIN 81 MG ENTERIC TAB PO SCH (07:44)
[2020-08-04] MEDS ORDERED: POTASSIUM CHLORIDE 10 MEQ SR TABLET PO ONE (07:45)
[2020-08-04] MEDS: METOPROLOL TART 25 MG TABLET PO SCH (07:45)
[2020-08-04] MEDS: FERROUS SULFATE 325MG TAB PO SCH (07:45)
[2020-08-04] MEDS: amLODIPine 5 MG TAB PO SCH (07:45)
[2020-08-04] MEDS: PANTOPRAZOLE 40MG TAB (PROTONIX) PO SCH (07:46)
[2020-08-04] MEDS: LIDOCAINE 5% (LIDODERM) PATCH TOP SCH (07:48)
[2020-08-04 08:03] LABS: TOTAL PROTEIN 24 HOUR URINE 968.8 MG/24HR (50-150); TOTAL VOLUME, URINE 1400 ML
[2020-08-04 08:10] LABS: MAGNESIUM LEVEL 2.3 MG/DL (1.8-2.4)
--- NOTE | 2020-08-04 08:58 | IPNPDOC ---
Text Note Date of Service The patient was seen on 08/04/20. NOTE SUBJECTIVE: Patient seen and examined at bedside. No acute overnight events reported. No new medical complaints this morning. Discussed code status, she confirms full code preference. Later in the morning her condition rapidly worsened, with labored breathing. OBJECTIVE: VITAL SIGNS: Please see below. GENERAL APPEARANCE: NAD, lying comfortably in bed HEENT: EOMI, NC/AT CARDIOVASCULAR: +S1S2, tachy, -M/R/G LUNGS: b/l basilar crackles ABDOMEN: soft, obese, NT, +BS Ext: trace edema A/P: 75F with PMHx #CVAs, MDD/LAVERNE, CAD/stents, COPD, GERD, chronic pain, HTN and DLP who presented w encephalopathy likely due to taking multiple medications, TONEY, acute anemia & UTI/sepsis. #SOB - appears to be flash pulmonary edema - CXR, ABG noted - remained of labs pending - pulmonary consulted - NIPPV - transfer to ICU - likely multifactorial 2/2 to PNA, acute COPD with mild exacerbation, CHF exacerbation #Acute on chronic HFpEF with exacerbation -BNP > 40,000 -lasix dose given by nephrology, careful with TONEY, webster in place -C/w BB, CCB, holding losartan -Monitor I&O's, daily wt, low salt/renal diet. #pneumonia -procalcitonin significantly elevated -HCAP vs. pulmonary edema on CXR -On Cefepime day #3 - renally dosed #Acute COPD with mild exacerbation -Improving, no wheezing -Steroids stopped, c/w nebs, treatment above #E. coli UTI -Bcx NG -Cefepime #Acute kidney injury on CKD stage III -Acute likely oliguric renal failure 2/2 to sepsis, cannot r/o gl omerulonephritis per nephro -Based on notes rheumatology was of the opinion that the patient may have some sort of vasculitis and had made plans to refer the patient to Nephro for a biopsy o/p -Holding all nephrotoxic medications except for intermittent diuresis by nephro, webster catheter in place -Urine: + protein -Once infection improved, then nephrology can further w/u proteinuria -Nephrology following #HTN -C/w BB and CCB - iv hydralazine prn - last dose 08/02 -Continue to hold losartan, nitro, pramipexole. #Gapped metabolic acidosis likely 2/2 to acute renal failure, lactic acidosis- improved -Stopped bicarb fluids, gap improving -F/u daily labs -Nephrology managing #DANIELLE, likely chronic disease -Started on ferrous sulfate BID -Occult blood pending but no s/s of bleeding #Lung lesion -F/u w PCP for spiral CT #Coronary artery disease status post stent / HLD / HX of multiple CVAs -ASA, statin, BB, CCB #Depression/anxiety -cymbalta, seroquel, benzo PRN #Chronic Pain -lidocaine patches / hold gabapentin & methocarbamol #DVT px -SCDs bc of anemia/ occult blood pending Resolved issues: Encephalopathy, possibly toxic vs. metabolic (polypharmacy vs. infection/sepsis ) Hypokalemia DISPOSITION: transfer to ICU, BiPap, pulm consulted, continue IV abx VS,Fishbone, I+O VS, Fishbone, I+O Laboratory Tests 08/04/20 05:09 Vital Signs Date Time Temp Pulse Resp B/P (MAP) Pulse Ox O2 Delivery O2 Flow Rate FiO2 08/04/20 07:45 133 122/59 08/04/20 07:30 97.5 34 89 Non-Rebreather 15.0 I&O- Last 24 Hours up to 6 AM 08/04/20 06:00 Intake Total 620 ml Output Total 1300 ml Balance -680 ml YUKI CLARK MD Aug 04, 2020 08:58
[2020-08-04 10:04] LABS: ABG BASE EXCESS -5.4 (-2.0-2.0); ABG O2 SATURATION 85.5 % (95.0-99.0); ABG PARTIAL PRESSURE CO2 32.6 mmHg (35.0-45.0); ABG PARTIAL PRESSURE O2 54.1 mmHg (75.0-100.0); ABG STANDARD HCO3 19.8 MEQ/L (22.0-26.0); ABG pH (ARTERIAL) 7.383 UNITS (7.350-7.450)
[2020-08-04 10:27] LABS: BASO % 0.1 % (0.0-1.0); HEMATOCRIT 26.4 % (36.0-47.0); HEMOGLOBIN 8.4 g/dl (12.0-15.5); LYMPH # 0.5 10^3/uL (1.5-5.0); LYMPH % 2.4 % (24.0-44.0); MEAN CORPUSCULAR HEMOGLOBIN 25.9 pg (27.0-33.0); MEAN CORPUSCULAR HGB CONC 31.8 g/dl (32.0-36.5); MEAN CORPUSCULAR VOLUME 81.5 fl (80.0-96.0); MONO # 0.9 10^3/uL (0.0-0.8); MONO % 4.2 % (0.0-5.0); NEUTROPHILS # 19.7 10^3/uL (1.5-8.5); NEUTROPHILS % 91.9 % (36.0-66.0); PLATELET COUNT, AUTOMATED 271 10^3/uL (150-450); RED BLOOD COUNT 3.24 10^6/uL (4.00-5.40); WHITE BLOOD COUNT 21.4 10^3/uL (4.0-10.0)
[2020-08-04] MEDS ORDERED: CHLOROTHIAZIDE 500 MG VIAL (J1205 PER 1) IV STA (10:37)
--- NOTE | 2020-08-04 10:40 | REP ---
INDICATION: sob. COMPARISON: Comparison chest x-ray August 03, 2020. TECHNIQUE: Portable upright AP chest radiograph. FINDINGS: Extensive interstitial lung disease is again seen in the upper lobes bilaterally and to a lesser extent in the lower lobes. This is these are similar findings to this study done on August 03, 2019. Heart is not felt to be enlarged. No pleural effusion is seen. The aorta is calcific and tortuous.. IMPRESSION: Extensive interstitial infiltrate/lung disease pattern bilaterally upper lobe predominant. Essentially unchanged from the August 03, 2020 study.. <Electronically signed by Christiano Chris > 08/04/20 [id number]
[2020-08-04] MEDS ORDERED: MORPHINE 2 MG/ML 1ML VIAL (J2270) IV ONE (10:45)
[2020-08-04 11:05] LABS: ALBUMIN 2.1 GM/DL (3.2-5.2); BILIRUBIN,TOTAL 0.5 MG/DL (0.2-1.0); CALCIUM LEVEL 8.4 MG/DL (8.8-10.2); CK-MB VALUE MASS 6.1 NG/ML (<3.6); CREATININE FOR GFR 5.26 MG/DL (0.55-1.30); GLOMERULAR FILTRATION RATE 8.5 (>39); MB/CK RELATIVE INDEX 6.85 (< OR =4); POTASSIUM SERUM 3.8 MEQ/L (3.5-5.1); TOTAL PROTEIN 6.6 GM/DL (6.4-8.2); TROPONIN I 0.14 NG/ML (< 0.10)
[2020-08-04] MEDS ORDERED: TORSEMIDE (DEMADEX) 50 MG PER 1/2 TAB PO SCH (12:00)
[2020-08-04] MEDS ORDERED: metOLazone 5 MG TAB PO ONE (12:00)
[2020-08-04] MEDS: HEPARIN SOD (PORCINE) 5000UNITS/ML 1ML VIAL/SYRINGE SQ SCH ×2 (12:56→21:00)
[2020-08-04] MEDS: NITROGLYCERIN 0.2 MG/HR PATCH TD SCH (12:57)
--- NOTE | 2020-08-04 13:08 | CCN ---
CRITICAL CARE NOTE DATE: 08/04/2020 SUBJECTIVE: I was called urgently to evaluate this 75-year-old woman who was admitted to the hospital with confusion. She was found to have oliguric renal failure and this morning was displaying increasing respiratory distress and tachypnea. Imaging is suggestive of pulmonary edema. OBJECTIVE: GENERAL APPEARANCE: On my arrival, she is in respiratory distress and tachypneic. VITAL SIGNS: Temperature 97, pulse rate 133, respirations 36, blood pressure 142/69. HEENT: Her pupils are reactive. Oral mucosa is pink. NECK: Supple. There is no obvious meningismus. HEART: Sounds are regular without appreciable murmur. LUNGS: Breath sounds with diffuse bilateral rales. CHEST: Symmetric. There is accessory muscle use with each breath. ABDOMEN: Soft and obese. EXTREMITIES: Show some edema. DIAGNOSTIC STUDIES: Her chest x-ray shows florid pulmonary edema. White cell count is down to 21.4 from a high of 30.4. Hemoglobin is low at 8.4, hematocrit 26.4, platelet count 271,000. Differential white cell count shows 91.9 neutrophils. Her electrolytes are sodium 141, potassium 3.8, chloride 108, CO2 of 20, BUN 66, creatinine 5.2, glucose 122. AST 19, ALT 12, albumin is 2.1. Arterial blood gases showed a pH of 7.38, pCO2 of 32, pO2 of 54 on 100% nonrebreather. On review of extensive medical records, she has a history of coronary artery disease status post stent placement and carotid artery disease status post cerebrovascular accident. ASSESSMENT AND PLAN: The primary problem requiring critical attention is acute hypoxic respiratory failure. We will initiate noninvasive positive pressure ventilation and recheck gas exchange. In the absence of prompt improvement, the patient may require intubation and mechanical ventilatory support. Pulmonary edema. I have discussed the case with nephrology who are actively diuresing her. If this is ineffective, dialysis will be initiated. Infectious disease. The patient has a urinary tract infection due to E. coli. White cell count does appear to be responding to Cefepime. The E. coli is pansensitive. Deep vein thrombosis (DVT) prophylaxis. We will start low dose heparin. Anemia. Hypoproliferative. The patient's condition is critical. Prognosis is guarded. I have updated the intensive care unit team and reviewed the case with nephrology. Goals of care have been outlined for the immediate future. CRITICAL CARE TIME: 72 minutes spent in the provision of bedside critical care and coordination; excluding any time for the performance of procedures.
[2020-08-04 13:23] LABS: ABG BASE EXCESS -9.1 (-2.0-2.0); ABG HCO3 15.9 MEQ/L (22.0-26.0); ABG O2 SATURATION 96.9 % (95.0-99.0); ABG PARTIAL PRESSURE O2 99.7 mmHg (75.0-100.0); ABG STANDARD HCO3 17.1 MEQ/L (22.0-26.0); ABG TOTAL CO2 16.9 MEQ/L (23.0-31.0); ABG pH (ARTERIAL) 7.329 UNITS (7.350-7.450)
[2020-08-04] MEDS ORDERED: LORazepam 2 MG/ML VIAL As Ordered ONE (17:10)
[2020-08-04] MEDS ORDERED: LORazepam 2 MG/ML VIAL IV STA (18:03)
[2020-08-04] MEDS ORDERED: FUROSEMIDE 100MG/10ML VIAL (J1940) IV ONE (18:45)
[2020-08-04 19:40] LABS: ALBUMIN 2.2 GM/DL (3.2-5.2); BLOOD UREA NITROGEN 72 MG/DL (7-18); CALCIUM LEVEL 8.3 MG/DL (8.8-10.2); CARBON DIOXIDE LEVEL 22 MEQ/L (21-32); CHLORIDE LEVEL 109 MEQ/L (98-107); CREATININE FOR GFR 5.59 MG/DL (0.55-1.30); GLOMERULAR FILTRATION RATE 7.9 (>39); GLUCOSE, FASTING 104 MG/DL (70-100); PHOSPHORUS LEVEL 5.1 MG/DL (2.5-4.9); POTASSIUM SERUM 4.4 MEQ/L (3.5-5.1); SODIUM LEVEL 142 MEQ/L (136-145)
[2020-08-04 19:53] LABS: HEPATITIS B SURFACE ANTIBODY NEGATIVE (POSITIVE)
[2020-08-04 20:04] LABS: HEPATITIS B SURFACE ANTIGEN NEGATIVE (NEGATIVE)
[2020-08-04 20:32] LABS: HEPATITIS C VIRUS ABY INDEX < 0.0 INDEX (<0.8)
[2020-08-04 20:33] LABS: HEPATITIS B CORE ANTIBODY IGM NEGATIVE (NEGATIVE)
[2020-08-04] MEDS: QUEtiapine FUMARATE 25 MG TAB PO SCH (21:00)
[2020-08-04] MEDS: **NOTE PATIENT COMMENT** MISC XX SCH (21:00)
--- NOTE | 2020-08-04 22:22 | IPN ---
NEPHROLOGY PROGRESS NOTE DATE: 08/04/2020 SUBJECTIVE: The patient was seen and examined at the bedside today morning. When I came in the morning the patient was wearing the non-rebreather. I had already given a dose of 80 mg of Lasix IV early in the morning. Despite that, the patient was in severe respiratory distress. She was actively wheezing and had labored breathing. I urgently requested help from the Pulmonary Service. Dr. Rizzo was called to the bedside and I appreciate his help. The patient was placed on BIPAP. Another dose of Lasix 80 mg IV stat with Diuril 500 mg IV stat and Morphine 2 mg IV was given and the patient was transferred to the ICU. OBJECTIVE: VITAL SIGNS: Temperature is 98.5 degrees Fahrenheit, blood pressure 103/57, pulse is 101, respiratory rate of 38, saturating 96% on BIPAP. INTAKE AND OUTPUT: Urine output recorded yesterday is 1.3 liters, and by the time I saw her, she had made about 400 mL of urine with 80 mg of Lasix that I gave her early in the morning. Weight in the bed scale is 70.3 kg. PHYSICAL EXAMINATION: GENERAL APPEARANCE: The patient is awake, in severe respiratory distress, restless. HEAD AND NECK: Pupils are equally round and reactive to light. Mucous membranes are moist. Neck is supple. There is significant elevated jugular venous distention. CARDIOVASCULAR: S1, S2, tachycardia. EXTREMITIES: 1+ edema of the bilateral lower extremities. RESPIRATORY: Diffuse crepitations and rhonchi all over the lungs, classic for flash pulmonary edema. ABDOMEN: Soft, positive bowel sounds, nontender, no organomegaly. GENITOURINARY: She has an indwelling Lauren catheter. MUSCULOSKELETAL: No clubbing, no cyanosis. She had cold extremities and 1+ edema of the bilateral lower extremities. CREDIT CARD SPECIALIST: The patient is agitated and restless because of her air hunger and shortness of breath. LAB REVIEW: CBC showed a white blood cell count of 21.4, hemoglobin is 8.4, platelet count is 271. Twenty-four urine protein is only 968 mg. ABG done today morning showed pH of 7.38, pco2 of 32, pO2 of 54, bicarbonate of 19. 02 sat was 85%. BMP today morning showed sodium 140, potassium 3.4, chloride 108, bicarbonate 22, BUN 68, creatinine of 5.2, calcium 7.9, pro BNP was 28,374. IMAGING: A chest x-ray was done yesterday because of shortness of breath which showed bilateral perihilar interstitial infiltrates. As read by myself, it was pulmonary edema. CURRENT INPATIENT MEDICATIONS: The patient's medications were all reviewed by myself. She continues to be on IV Cefepime. She is on DuoNeb nebulizations. She is on Amlodipine 5 mg p.o. daily, Lipitor 40 mg daily. As mentioned above, she was given a dose Diuril 500 mg and Lasix 80 mg stat. She continues to be on Hydralazine p.r.n. Plaquenil has been stopped. She is also on Metoprolol 25 mg p.o. daily, and she has also been started on Nitroglycerin 0.2 mg per hour patch daily. And she was given Potassium Chloride 40 mEq times one dose. ASSESSMENT AND PLAN: 1. Acute renal failure - The patient is in renal failure and fluid overload. After transfer to the ICU today, I tried placing a right femoral catheter in the groin, but because the patient was restless, I was unable to do that. I would request Interventional Radiology to place a catheter so we can dialyze the patient. At this point the main aim is to optimize the fluid status and she is getting a high dose of diuretics now. 2. Acute hypoxic respiratory failure secondary to flash pulmonary edema - The patient is on BIPAP now. She was given a combination of Diuril and Lasix in the morning. Another dose has been given in the evening and the third dose will be given at 3:00 in the morning. The patient has made about 1.3 liters of urine with the higher dose of diuretics. Her breath is improving. The rest of the fluid management will be done with dialysis if we are successful in getting a dialysis catheter placed. 3. E-coli urinary tract infection - The patient is currently on IV third generation Cephalosporin which cover the urinary tract infection as well. Urine is getting clear. 4. Proteinuria the patient's 24-hour urine shows less than one gram of protein, however autoimmune serology has already been sent. The results are still pending. 5. Acute decompensated diastolic congestive heart failure volume management is as per mentioned above as per flash pulmonary edema management. Continue Metoprolol at this time. Continue Nitroglycerin patch.
[2020-08-05] VITALS (54 sets, daily range): BP systolic 77–165; BP diastolic 40–84
--- NOTE | 2020-08-05 00:01 | RO ---
OPERATIVE NOTE DATE OF OPERATION: 08/04/2020 INDICATION FOR PROCEDURE: Acute renal failure/pulmonary edema. PREPROCEDURE DIAGNOSIS: Acute renal failure, pulmonary edema and decompensated congestive heart failure. POST-PROCEDURE DIAGNOSIS: Renal failure and pulmonary edema with acute hypoxemic respiratory failure. PROCEDURE: Placement of Double lumen HD catheter SURGEON: Chica Franklin MD CONSENT: Consent of the procedure was obtained from the patient's via phone call. Her 's name is Baljinder. DESCRIPTION OF PROCEDURE: After informed consent was obtained from the , patient was prepped and draped in a sterile fashion. In the right groin under ultrasound guidance, right femoral vein was localized and I tried to cannulate the femoral vein under ultrasound guidance, however since patient was restless despite getting Ativan I.V., I was unable to cannulate the vein. After the fourth attempt, I aborted the procedure and the decision was made to get the Permacath placed by interventional radiology tomorrow morning. There is no active bleeding at the procedure attempt site in the right groin and there was no hematoma noted. WHITNEY
[2020-08-05] MEDS: ALPRAZolam 0.5 MG TAB PO PRN (00:28)
[2020-08-05] MEDS: IPRATROPIUM 0.5MG/ALBUTEROL 2.5MG INH SOL UD 3ML (DUONEB) NEB SCH ×4 (02:58→20:55)
[2020-08-05] MEDS ORDERED: FUROSEMIDE 100MG/10ML VIAL (J1940) IV ONE (03:00)
[2020-08-05 05:39] LABS: HEMATOCRIT 24.9 % (36.0-47.0); HEMOGLOBIN 8.1 g/dl (12.0-15.5); MEAN CORPUSCULAR HEMOGLOBIN 26.2 pg (27.0-33.0); MEAN CORPUSCULAR HGB CONC 32.5 g/dl (32.0-36.5); MEAN CORPUSCULAR VOLUME 80.6 fl (80.0-96.0); PLATELET COUNT, AUTOMATED 243 10^3/uL (150-450); RED BLOOD COUNT 3.09 10^6/uL (4.00-5.40); WHITE BLOOD COUNT 22.2 10^3/uL (4.0-10.0)
[2020-08-05] MEDS: SLF 3 ML SYR IV SCH ×3 (06:05→21:49)
[2020-08-05 06:06] LABS: CALCIUM LEVEL 8.6 MG/DL (8.8-10.2); CREATININE FOR GFR 5.68 MG/DL (0.55-1.30); GLOMERULAR FILTRATION RATE 7.8 (>39); POTASSIUM SERUM 4.5 MEQ/L (3.5-5.1)
[2020-08-05 06:08] LABS: ABG BASE EXCESS -5.3 (-2.0-2.0); ABG HCO3 19.9 MEQ/L (22.0-26.0); ABG PARTIAL PRESSURE CO2 37.4 mmHg (35.0-45.0); ABG PARTIAL PRESSURE O2 67.1 mmHg (75.0-100.0); ABG STANDARD HCO3 19.9 MEQ/L (22.0-26.0); ABG pH (ARTERIAL) 7.343 UNITS (7.350-7.450)
[2020-08-05] MEDS: CEFEPIME HCL 1 GM in D5W MINI-BAG PLUS 50 ML IV SCH (07:56)
--- NOTE | 2020-08-05 08:15 | REP ---
INDICATION: pulm edema. COMPARISON: Comparison portable chest x-ray August 04, 2020. TECHNIQUE: Portable upright AP chest radiograph. FINDINGS: Monitoring electrodes and oxygen delivery tubing are again seen overlying the chest. There is diffuse interstitial the lung disease again noted bilaterally. Some increased markings are seen in the left base just above the left hemidiaphragm and behind the heart. The heart is not enlarged. The aorta is tortuous. No other new area of consolidation is seen. No pleural effusion is evident.. IMPRESSION: Extensive diffuse interstitial infiltrate/lung disease again noted. Some increased markings left base today.. <Electronically signed by Christiano Chris > 08/05/20 [id number]
[2020-08-05] MEDS: amLODIPine 5 MG TAB PO SCH ×2 (09:00→09:09)
[2020-08-05] MEDS: DULoxetine 30 MG CAP (CYMBALTA) PO SCH ×3 (09:00→21:00)
[2020-08-05] MEDS: PANTOPRAZOLE 40MG TAB (PROTONIX) PO SCH ×2 (09:00→09:11)
[2020-08-05] MEDS: BICITRA 30ML SOLN UDC PO SCH ×2 (09:00→09:10)
[2020-08-05] MEDS: METOPROLOL TART 25 MG TABLET PO SCH ×2 (09:00→09:09)
[2020-08-05] MEDS: ATORVASTATIN 20 MG TAB PO SCH ×2 (09:00→09:08)
[2020-08-05] MEDS: LIDOCAINE 5% (LIDODERM) PATCH TOP SCH (09:09)
[2020-08-05] MEDS: HEPARIN SOD (PORCINE) 5000UNITS/ML 1ML VIAL/SYRINGE SQ SCH ×2 (09:10→21:51)
[2020-08-05] MEDS: NITROGLYCERIN 0.2 MG/HR PATCH TD SCH (09:12)
[2020-08-05] MEDS ORDERED: LIDOCAINE 1% MDV 20ML VIAL As Ordered ONE (10:25)
[2020-08-05] MEDS ORDERED: ceFAZolin 1GM VIAL (J0690 PER 500MG) As Ordered ONE (10:25)
[2020-08-05] MEDS ORDERED: diphenhydrAMINE 50MG/ML VIAL (J1200) As Ordered ONE (10:38)
[2020-08-05] MEDS ORDERED: fentaNYL 100 MCG/2 ML INJECTION (J3010) As Ordered ONE (10:39)
[2020-08-05] MEDS ORDERED: PROMETHAZINE INJ 25 MG/ML VIAL (J2550) As Ordered ONE (10:39)
[2020-08-05] MEDS ORDERED: MIDAZOLAM INJ 2MG/2ML VIAL (J2250 PER 1MG) As Ordered ONE ×2 (10:40→20:11)
--- NOTE | 2020-08-05 10:41 | IPNPDOC ---
Text Note Date of Service The patient was seen on 08/05/20. NOTE SUBJECTIVE: Patient seen and examined at bedside. Overnight she was noted to be quite restless. This morning she is lying comfortably in bed, still wearing non- rebreather. Her code status was discussed at bedside, and she stated she would want intubation if needed. Her mentation is questionable. Family will be contacted. OBJECTIVE: VITAL SIGNS: Please see below. GENERAL APPEARANCE: NAD, lying comfortably in bed HEENT: NC/AT CARDIOVASCULAR: +S1S2, tachy, -M/R/G ABDOMEN: soft, obese, NT, +BS Ext: trace edema A/P: 75F with PMHx #CVAs, MDD/LAVERNE, CAD/stents, COPD, GERD, chronic pain, HTN and DLP who presented w encephalopathy likely due to taking multiple medications, TONEY, acute anemia & UTI/sepsis. #SOB - still requiring NIPPV - follow as per pulmonary - assistance appreciated - likely multifactorial 2/2 to PNA, COPD exacerbation, CHF exacerbation #Acute on chronic HFpEF with exacerbation -BNP > 20,000, trending down -C/w BB, CCB, holding losartan -Monitor I&O's, daily wt, low salt/renal diet. - pending placement of permacath for HD for fluid management #pneumonia -procalcitonin significantly elevated -HCAP vs. pulmonary edema on CXR -On Cefepime day #4 - renally dosed #E. coli UTI -Bcx NG -Cefepime as above #Acute kidney injury on CKD stage III -Acute likely oliguric renal failure 2/2 to sepsis, cannot r/o glomerulonephritis per nephro -Based on notes rheumatology was of the opinion that the patient may have some sort of vasculitis and had made plans to refer the patient to Nephro for a biopsy o/p -Holding all nephrotoxic medications except for intermittent diuresis by nephro, webster catheter in place -Urine: + protein -Once infection improved, then nephrology can further w/u proteinuria -Nephrology following - plan for catheter placement for HD #HTN -C/w BB and CCB - iv hydralazine prn - last dose 08/02 -Continue to hold losartan, nitro, pramipexole. #DANIELLE, likely chronic disease -Started on ferrous sulfate BID -Occult blood pending but no s/s of bleeding #Lung lesion -F/u w PCP as outpatient for further workup #Coronary artery disease status post stent / HLD / HX of multiple CVAs -ASA, statin, BB, CCB #Depression/anxiety -cymbalta, seroquel, benzo PRN #Chronic Pain -lidocaine patches / hold gabapentin & methocarbamol #DVT px -SCDs bc of anemia/ occult blood pending Resolved issues: Encephalopathy, possibly toxic vs. metabolic (polypharmacy vs. infection/sepsis ) Hypokalemia DISPOSITION: pending clinical improvement, pulm/nephro follow up, still requiring NIPPV, permacath for HD ADDENDUM: Permacath was obtained. During HD she became tachycardic and hypotensive. Amiodarone IV was administered, and HD terminated. She continued to be restless and agitated. There was concern for pulmonary/renal syndrome. Plan is possibly for intubation and bronchoscopy for further evaluation. Case was discussed with nephrology. Her family - daughter Enriqueta and son Edis (HCP) were also contacted and updated. They both confirmed that patient would want full code including intubation and CPR if needed. VS,Fishbone, I+O VS, Fishbone, I+O Laboratory Tests 08/04/20 19:01 08/05/20 05:11 Vital Signs Date Time Temp Pulse Resp B/P (MAP) Pulse Ox O2 Delivery O2 Flow Rate FiO2 08/05/20 08:00 60 08/05/20 08:00 97.0 119 30 154/63 (93) 97 NIPPV (BIPAP/CPAP) 08/04/20 08:00 15.0 I&O- Last 24 Hours up to 6 AM 08/05/20 06:00 Intake Total 300 ml Output Total 2525 ml Balance -2225 ml YUKI CLARK MD Aug 05, 2020 10:41
[2020-08-05] MEDS ORDERED: propofoL 200 MG/20 ML VIAL As Ordered ONE (11:42)
[2020-08-05 12:20] LABS: ALBUMIN 2.53 GM/DL (3.29-5.55); ALBUMIN % 44.4 % (55.8-66.1); ALPHA-1-GLOBULIN % 9.8 % (2.9-4.9); ALPHA-1-GLOBULINS 0.56 GM/DL (0.17-0.41); ALPHA-2-GLOBULINS 0.89 GM/DL (0.42-0.99); ALPHA-2-GLOBULINS % 15.6 % (7.1-11.8); BETA-1-GLOBULINS 0.38 GM/DL (0.28-0.60); BETA-1-GLOBULINS % 6.7 % (4.7-7.2); BETA-2-GLOBULINS 0.55 GM/DL (0.19-0.55); BETA-2-GLOBULINS % 9.6 % (3.2-6.5); GAMMA GLOBULIN % 13.9 % (11.1-18.8); GAMMA GLOBULINS 0.79 GM/DL (0.65-1.58)
[2020-08-05] MEDS ORDERED: HALOPERIDOL 5MG/ML VIAL (J1630 PER 1) IV PRN ×2 (13:15→18:30)
--- NOTE | 2020-08-05 13:21 | IPN ---
PROGRESS NOTE DATE: 08/05/2020 SUBJECTIVE: The patient was seen and examined at the bedside today morning in the ICU. The last 24 hour events were noted, the patient is still very restless, she is still requiring BiPAP, at least 60% FIO2. She is getting IV Lasix and she is making urine with that. She is non-oliguric but there is no improvement in the renal function, creatinine and BUN continue to rise. Chest x-ray still shows bilateral interstitial infiltrate. The patient was getting ready to go to IR for placement of Perm-A-Cath when I saw her in the morning. OBJECTIVE: VITAL SIGNS: Temperature is 97 degrees Fahrenheit, blood pressure is 154/63, pulse is 120, respiratory rate is 18, saturating 94% on BiPAP at 60% FIO2. INTAKE AND OUTPUT: Urine output recorded as 2 liters yesterday, 650 ml so far today since overnight. Weight on the bed scale is 68.6 kg. PHYSICAL EXAMINATION: GENERAL: The patient is awake, restless, wearing BiPAP. HEAD AND NECK: Pupils are equally round and reactive to light. Neck is supple, mildly elevated JVD. CARDIOVASCULAR: S1 and S2, tachycardia. Trace edema of the bilateral lower extremities. RESPIRATORY: Inspiratory crackles bilaterally from bases up to the upper lung zones. ABDOMEN: Soft, positive bowel sounds, nontender. No organomegaly. GENITOURINARY: She has an indwelling Lauren catheter. MUSCULOSKELETAL: No clubbing or cyanosis. STORAGE BATTERY CHARGER: The patient is awake and agitated. LABORATORY DATA: CBC showed a WBC of 22.2, hemoglobin is 8.1, platelets are 243,000. BMP showed a sodium of 145, potassium of 4.5, chloride 110, bicarbonate is 20, BUN is 80, creatinine is 5.6. Calcium is 8.6. Pro-BNP is 21,539. IMAGING: A chest x-ray was done today which showed extensive diffuse interstitial infiltrate, some increased markings in the left base. CURRENT INPATIENT MEDICATIONS: The patient's medications are all reviewed by myself. She continues to be on IV Cefepime. She was given IV Lasix yesterday. I am going to stop her Bicitra now. No other significant change in the medications today as compared with yesterday. ASSESSMENT AND PLAN: 1. Acute renal failure. Even the patient is non-oliguric at this time, the patient is still significantly volume overloaded. Creatinine and BUN are still high. Patient is going to get a catheter and after that she will be dialyzed at the bedside today. I would try to remove at least 2.5 kg of fluid. 2. Acute hypoxic respiratory failure requiring BiPAP at this time. Patient still have pulmonary edema on the chest x-ray. Continue the diuretics. Further volume status will be optimized with dialysis at bedside today. 3. E. coli urinary tract infection. Patient is currently on Cefepime which covers UTI. 4. Proteinuria, autoimmune serology is pending. Patient had sub-nephrotic range proteinuria on 24 hour urine. 5. Acute decompensated diastolic congestive heart failure. Volume status being managed with diuretics and Lasix as mentioned above. Continue metoprolol and Nitroglycerin patch. MTDD
--- NOTE | 2020-08-05 14:20 | CCN ---
CRITICAL CARE NOTE DATE: 08/05/2020 SUBJECTIVE: The patient is seen in the intensive care unit. This is hospital day #4, noninvasive positive pressure day #3. She is quite confused, but tolerating the face mask. OBJECTIVE: VITAL SIGNS: At bedside temperature is 97, pulse rate 128, respirations 18, blood pressure 154/63. INTAKE AND OUTPUT: For the past 24 hours 300 in and 2425 out; since midnight 0 in and 650 out. GENERAL APPEARANCE: She is ill-appearing, confused, and does appear to attend to voice, but does not answer verbally. HEENT: Oral mucosa is pink. NECK: Supple. There is no meningismus. Jugular veins are full. HEART: Sounds are irregular, distant. LUNGS: Breath sounds with diffuse rales bilaterally. CHEST: Symmetric with some accessory muscle use at rest. ABDOMEN: Soft and obese. EXTREMITIES: Show some edema. DIAGNOSTIC STUDIES: Her white blood cell count is 22.2. Differential white cell count yesterday showed 91.9 neutrophils, hemoglobin 8.1, hematocrit 24.9, platelet count 243,000. Electrolytes with sodium 145, potassium 4.5, chloride 110, CO2 of 20, BUN 80, creatinine 5.68, glucose 107, calcium 8.6. B-type natriuretic peptide 21,539. Arterial blood gas this morning showed a pH of 7.34, pCO2 of 37, pO2 of 67 on a noninvasive ventilation. Inspiratory pressure of 12/expiratory of 4 and FiO2 of 0.6. MEDICATION REVIEW: She is on day#4 of Cefepime. She is receiving DuoNeb q. six hours, Lopressor 25 mg a day, hydralazine 10 mg q. eight p.r.n., Norvasc 5 mg a day, heparin 5000 q. 12 hours. DIAGNOSTIC IMAGING REVIEW: Her chest x-ray looks a little bit better. There continue to be bilateral interstitial infiltrates consistent with pulmonary edema. MICROBIOLOGY REVIEW: Her urine culture is growing E. coli that is pansensitive. ASSESSMENT AND PLAN: 1. The primary problem requiring critical attention is acute hypoxic respiratory failure. The patient is tolerating noninvasive positive pressure ventilation and arterial blood gases are acceptable. We will continue with the current ventilator settings pending significant diuresis. 2. Pulmonary edema. The patient is scheduled for dialysis today. 3. Escherichia coli (E. coli) urinary tract infection. The bacteria appear to be pansensitive, although her white cell count remains elevated. We may need to consider a change in antibiotic therapy if she does not respond in the next 24 hours. 4. Deep vein thrombosis (DVT) and ulcer prophylaxis are in place. I have reviewed the case with the intensive care unit (ICU) team and plans of care for the day have been outlined. CRITICAL CARE TIME: 67 minutes spent in the provision of bedside critical care and coordination; excluding any time for the performance of procedures.
[2020-08-05] MEDS ORDERED: AMIODARONE HCL 150 MG in IV 1 EA IV ONE (18:00)
[2020-08-05 18:27] LABS: ABG BASE EXCESS -6.6 (-2.0-2.0); ABG HCO3 17.9 MEQ/L (22.0-26.0); ABG O2 SATURATION 84.6 % (95.0-99.0); ABG PARTIAL PRESSURE CO2 32.2 mmHg (35.0-45.0); ABG PARTIAL PRESSURE O2 54.1 mmHg (75.0-100.0); ABG STANDARD HCO3 18.8 MEQ/L (22.0-26.0); ABG TOTAL CO2 18.9 MEQ/L (23.0-31.0); ABG pH (ARTERIAL) 7.364 UNITS (7.350-7.450)
[2020-08-05] MEDS ORDERED: VANCOMYCIN HCL 1,000 MG, VIAL MATE ADAPTER 1 EACH in D5W 250 ML IV ONE (18:30)
[2020-08-05 18:50] LABS: ALBUMIN 2.1 GM/DL (3.2-5.2); BILIRUBIN,TOTAL 0.6 MG/DL (0.2-1.0); CK-MB VALUE MASS 7.1 NG/ML (<3.6); CREATININE FOR GFR 4.64 MG/DL (0.55-1.30); GLOMERULAR FILTRATION RATE 9.8 (>39); MB/CK RELATIVE INDEX 4.73 (< OR =4); TOTAL PROTEIN 7.1 GM/DL (6.4-8.2); TROPONIN I 0.12 NG/ML (< 0.10)
[2020-08-05 19:20] LABS: HEMATOCRIT 25.7 % (36.0-47.0); HEMOGLOBIN 8.2 g/dl (12.0-15.5); MEAN CORPUSCULAR HEMOGLOBIN 26.5 pg (27.0-33.0); MEAN CORPUSCULAR HGB CONC 31.9 g/dl (32.0-36.5); MEAN CORPUSCULAR VOLUME 83.2 fl (80.0-96.0); PLATELET COUNT, AUTOMATED 267 10^3/uL (150-450); RED BLOOD COUNT 3.09 10^6/uL (4.00-5.40); WHITE BLOOD COUNT 26.2 10^3/uL (4.0-10.0)
[2020-08-05 19:36] LABS: LYMPHOCYTES 3 % (16-44); MONOCYTES 1 % (0-5); NEUTROPHILS 95 % (28-66)
[2020-08-05 19:38] LABS: ANISOCYTOSIS 1+; HYPOCHROMASIA 1+; PLATELET ESTIMATE NORMAL (NORMAL); POIKILOCYTOSIS 1+
[2020-08-05 19:41] LABS: HYPERSEGMENTED POLYS 1+
[2020-08-05] MEDS ORDERED: methylPREDNISolone 1,000 MG, VIAL MATE ADAPTER 1 EACH in D5W 250 ML IV ONE (20:00)
[2020-08-05] MEDS ORDERED: LORazepam 2 MG/ML VIAL IV ONE (20:15)
[2020-08-05] MEDS ORDERED: MIDAZOLAM INJ 2MG/2ML VIAL (J2250 PER 1MG) IV STA ×3 (20:18→20:25)
[2020-08-05] MEDS: QUEtiapine FUMARATE 25 MG TAB PO SCH (21:00)
[2020-08-05 21:30] LABS: ABG BASE EXCESS -8.1 (-2.0-2.0); ABG HCO3 17.5 MEQ/L (22.0-26.0); ABG O2 SATURATION 97.5 % (95.0-99.0); ABG PARTIAL PRESSURE CO2 36.3 mmHg (35.0-45.0); ABG PARTIAL PRESSURE O2 114.2 mmHg (75.0-100.0); ABG STANDARD HCO3 17.8 MEQ/L (22.0-26.0); ABG TOTAL CO2 18.7 MEQ/L (23.0-31.0); ABG pH (ARTERIAL) 7.302 UNITS (7.350-7.450)
[2020-08-05] MEDS: MIDAZOLAM INJ 2MG/2ML VIAL (J2250 PER 1MG) IV PRN ×2 (21:35→22:07)
[2020-08-05] MEDS: **NOTE PATIENT COMMENT** MISC XX SCH (21:39)
[2020-08-05] MEDS: CHLORHEXIDINE GLUCONATE 0.12 % 15ML UDC (PERIDEX ORAL RINSE) MT SCH (21:51)
[2020-08-05] MEDS ORDERED: REFRIGERATOR IV KEYS XX PRN (22:00)
[2020-08-05] MEDS: MIDAZOLAM HCL 100 MG in D5W 80 ML IV SCH (22:04)
--- NOTE | 2020-08-05 22:35 | ECGEPIP ---
[facility] Test Date: 2020-08-05 Pat Name: MAHESH AQUINO Department: Room: U9547-04 Gender: Female [employer]: : 1945 Requested By: YUKI Kessler Order Number: [id number] Reading MD: Meliton Pardo Measurements Intervals [place] Rate: 133 P: 75 SC: 150 QRS: 18 QRSD: 74 T: 48 QT: 310 QTc: 461 Interpretive Statements Sinus tachycardia with premature atrial complexes Nonspecific ST abnormality Increased heart rate and PACs new compared with 07/24/2020. Electronically Signed on 08-05-2020 22:35:07 EST by Meliton Pardo
[2020-08-06] VITALS (60 sets, daily range): BP systolic 80–141; BP diastolic 5–73
[2020-08-06] MEDS: MORPHINE 2 MG/ML 1ML VIAL (J2270) IV PRN (00:49)
[2020-08-06] MEDS: IPRATROPIUM 0.5MG/ALBUTEROL 2.5MG INH SOL UD 3ML (DUONEB) NEB SCH ×8 (02:00→20:18)
--- NOTE | 2020-08-06 03:54 | REP ---
INDICATION: ETT COMPARISON: None. TECHNIQUE: Portable AP view of the chest FINDINGS: Endotracheal tube extends into the right mainstem bronchus and requires repositioning. Double-lumen central line with tip in the right atrium. Cardiac silhouette is normal. Diffuse interstitial infiltrates and subtle areas of consolidation are appreciated and may be slightly more prominent than prior examination. No effusion. No pneumothorax. Skeletal structures intact. IMPRESSION: 1. Endotracheal tube extends into the right mainstem bronchus and requires repositioning. 2. Diffuse bilateral airspace disease slightly increased from prior examination. <Electronically signed by Raoul Henriquez > 08/06/20 0353
[2020-08-06 05:27] LABS: HEMOGLOBIN 7.4 g/dl (12.0-15.5); MEAN CORPUSCULAR HEMOGLOBIN 26.2 pg (27.0-33.0); MEAN CORPUSCULAR HGB CONC 32.2 g/dl (32.0-36.5); MEAN CORPUSCULAR VOLUME 81.6 fl (80.0-96.0); PLATELET COUNT, AUTOMATED 279 10^3/uL (150-450); RED BLOOD COUNT 2.82 10^6/uL (4.00-5.40); WHITE BLOOD COUNT 17.2 10^3/uL (4.0-10.0)
[2020-08-06 05:54] LABS: ABG BASE EXCESS -5.1 (-2.0-2.0); ABG HCO3 20.3 MEQ/L (22.0-26.0); ABG O2 SATURATION 99.3 % (95.0-99.0); ABG PARTIAL PRESSURE CO2 39.1 mmHg (35.0-45.0); ABG PARTIAL PRESSURE O2 159.3 mmHg (75.0-100.0); ABG STANDARD HCO3 20.2 MEQ/L (22.0-26.0); ABG TOTAL CO2 21.5 MEQ/L (23.0-31.0); ABG pH (ARTERIAL) 7.334 UNITS (7.350-7.450)
[2020-08-06 05:56] LABS: CALCIUM LEVEL 8.2 MG/DL (8.8-10.2); CREATININE FOR GFR 5.75 MG/DL (0.55-1.30); GLOMERULAR FILTRATION RATE 7.7 (>39); POTASSIUM SERUM 4.3 MEQ/L (3.5-5.1)
[2020-08-06] MEDS: SLF 3 ML SYR IV SCH ×3 (05:57→22:16)
[2020-08-06] MEDS ORDERED: NS 500 ML IV ONE ×2 (06:15→18:00)
--- NOTE | 2020-08-06 08:00 | RO ---
OPERATIVE NOTE DATE OF OPERATION: 08/06/2020 PREOPERATIVE DIAGNOSIS: POSTOPERATIVE DIAGNOSIS: PROCEDURE: Endotracheal intubation. INDICATIONS FOR PROCEDURE: Hypoxic respiratory failure. PROCEDURE SSRS REPORT DEVELOPER: Sulaiman Albarado DO ATTENDING PHYSICIAN: Meliton Rizzo M.D. of pulmonary critical care medicine. ANESTHESIA: PROCEDURE SUMMARY: I wore gloves throughout the procedure. The patient was placed on cardiac monitoring and continuous pulse oximetry. The patient received 2 mg of IV Versed. No induction or paralysis was used. A GlideScope was used and was inserted. The vocal cords were visualized, although difficult due to dried secretions and dried blood. The endotracheal tube was placed, the cement was removed, and the cuff was inflated. Appropriate endotracheal position was confirmed by direct visualization of vocal cord passage following of the tube, CO2 colormetric indicator, and symmetric breath sounds. The tube was secured at approximately 24 cm from the lips. Post-intubation chest x-ray demonstrated proper positioning. My faculty preceptor, Meliton Rizzo M.D., for this patient encounter was physically present during the encounter and was fully available. All aspects of the patient interview, examination, medical decision making process, and medical care plan development were reviewed and approved by the faculty preceptor. The faculty preceptor is aware and concurs with the plan as stated in the body of this note and will attest to such by his/her co-signature.
--- NOTE | 2020-08-06 08:07 | CCN ---
CRITICAL CARE NOTE ADDENDUM DATE: 08/05/2020 SUBJECTIVE: I was called back urgently to the intensive care unit to reevaluate this patient regarding increasing respiratory distress and altered level of consciousness. OBJECTIVE: GENERAL APPEARANCE: On my arrival, she is confused and struggling. VITAL SIGNS: Her temperature is 98, pulse rate 140, respirations 30, blood pressure 101/55. HEENT: The patient does not focus to command. Her pupils appear round. Oral mucosa is dry. There is no obvious stridor. HEART: Sounds are regular rapid. LUNGS: Breath sounds coarse, diminished, rales bilaterally. ABDOMEN: Soft. EXTREMITIES: Pulses are palpable x4. She is moving about in the bed. DIAGNOSTIC STUDIES: An arterial blood gas was obtained. Her pH was 7.36, pCO2 of 32, pO2 of 54 on noninvasive positive pressure ventilation. ASSESSMENT AND PLAN: 1. The primary problem requiring critical attention is acute respiratory failure. The patient is failing noninvasive ventilation. I have discussed the case with nephrology and we will proceed with endotracheal tube intubation and mechanical ventilation. 2. Profound hypoxemia. Possibility has been raised of a pulmonary vasculitis versus a pulmonary renal syndrome. Steroids will be initiated and will arrange for a CT scan of the chest after she is stabilized on mechanical ventilation. Pending the results of the CT scan, bronchoscopy may be an option. CRITICAL CARE TIME: 37 minutes spent in the provision of bedside critical care and coordination; excluding any time for the performance of procedures.
--- NOTE | 2020-08-06 08:11 | REP ---
INDICATION: ETT, pulm edema/ vasculitis COMPARISON: 08/05/2020 TECHNIQUE: Portable AP view of the chest FINDINGS: Endotracheal tube at the kasey/right main stem bronchus and requires repositioning. Nasogastric tube courses below left hemidiaphragm in satisfactory position. Double-lumen catheter with tip in the SVC/right atrium. The mediastinum and cardiac silhouette are stable and within normal limits for portable technique. The lung warner demonstrate diffuse chronic changes and suspected superimposed alveolar/interstitial infiltrates which may be minimally improved from prior examination. No effusion. No pneumothorax. IMPRESSION: 1. Endotracheal tube requires repositioning. 2. Chronic interstitial changes with superimposed interstitial/alveolar infiltrates again noted. <Electronically signed by Raoul Henriquez > 08/06/20 0842
[2020-08-06] MEDS: NITROGLYCERIN 0.2 MG/HR PATCH TD SCH (09:00)
[2020-08-06] MEDS: DULoxetine 30 MG CAP (CYMBALTA) PO SCH ×2 (09:00→20:26)
[2020-08-06] MEDS: METOPROLOL TART 25 MG TABLET PO SCH (09:00)
[2020-08-06] MEDS: LIDOCAINE 5% (LIDODERM) PATCH TOP SCH (09:00)
[2020-08-06] MEDS: MIDAZOLAM INJ 2MG/2ML VIAL (J2250 PER 1MG) IV PRN ×4 (10:07→20:38)
[2020-08-06] MEDS: HEPARIN SOD (PORCINE) 5000UNITS/ML 1ML VIAL/SYRINGE SQ SCH ×2 (10:08→20:26)
[2020-08-06] MEDS: CHLORHEXIDINE GLUCONATE 0.12 % 15ML UDC (PERIDEX ORAL RINSE) MT SCH ×2 (10:08→20:26)
[2020-08-06] MEDS: PANTOPRAZOLE 40MG VIAL (C9113 PER 1) IV SCH (10:09)
--- NOTE | 2020-08-06 10:51 | POST-OPPD ---
Postoperative Procedure Note Date Of Procedure: Aug 05, 2020 Time Of Procedure: 16:00 IR PermCath placement. IR PermCath insertion under fluoroscopic and ultrasound guidance. IR Ultrasound of the right neck. Clinical Information:Renal failure. Physician: Dr. Loja. Procedure: The patient's next of kin was advised of the benefits, risks, and alternatives of the procedure and informed consent was obtained. A time out was performed with verification of the patient's name, MRN, site of procedure, and type of procedure to be performed. The patient was positioned in the supine position on the angiographic table. The site was prepped and draped in the usual sterile fashion. Anesthesia was performed by the anesthesia team. The physician spent 60 minutes of continuous [id number] time with the patient. Ultrasound of the right neck reveals a patent and compressible right internal jugular vein. A form setter helper radiograph reveals increased lung markings. The neck and anterior chest wall were anesthetized with lidocaine. The right internal jugular vein was accessed under ultrasound guidance, using a microintroducer needle via a lateral approach. A 0.018 cope wire was advanced into the superior vena cava, the needle was removed and a microintroducer sheath was placed. An Amplatz wire was then passed into the inferior vena cava under fluoroscopy guidance. Incisions at the internal jugular access site and anterior chest wall were made using a scalpel. A 19 cm palindrome catheter was inserted through subcutaneous tissues of the chest wall with a tunneling device. The microintroducer sheath was removed and the internal jugular puncture site was upsized with a dilator, over the wire and under fluoroscopic guidance. A peel-away sheath was placed over the wire, under fluoroscopy guidance and into the superior vena cava. The wire and insert were removed. The catheter was passed into the internal jugular vein via the sheath. The peel away sheath was then removed. The catheter tip was positioned at the right atrium. The puncture site was closed with glue. The catheter was secured in place using a 2-0 Prolene. Both sites were cleansed and sterile dressings were applied. At the conclusion of the procedure, the ports of the catheter aspirated and flushed freely. The catheter was locked with high-dose heparin. The patient tolerated the procedure well and was returned to the PRU in stable condition. EBL: < 5 ml. Complications: None. Conclusion: Successful placement of a 19 cm palindrome PermCath. The catheter is ready for immediate use. Thank you for this referral. REEMA LOJA MD Aug 06, 2020 10:51
[2020-08-06] MEDS: MIDAZOLAM HCL 100 MG in D5W 80 ML IV SCH ×2 (11:33→18:01)
[2020-08-06] MEDS ORDERED: NS 1,000 ML IV ONE (12:15)
[2020-08-06 13:07] LABS: ANA (HEP2) Negative (.); ANTI DS-DNA AB Negative (Negative); FREE KAPPA LIGHT CHAINS SERUM 69.6 mg/L (3.3-19.4); FREE LAMBDA LIGHT CHAINS SERUM 41.4 mg/L (5.7-26.3); KAPPA/LAMBDA RATIO SERUM 1.68 (0.26-1.65)
--- NOTE | 2020-08-06 14:03 | RO ---
OPERATIVE NOTE DATE OF OPERATION: 08/05/2020 PREOPERATIVE DIAGNOSIS: Hypoxemia. POSTOPERATIVE DIAGNOSIS: Hypoxemia. PROCEDURE PERFORMED: Emergent endotracheal tube intubation. PROCEDURE NOTE: Patient was seen in the Intensive Care Unit with acute respiratory failure, failing noninvasive positive pressure ventilation. An arterial blood gas was found abnormal and her airway was felt unstable. An 8.5 endotracheal tube was prepared and laryngoscopy was performed. Copious dried blood and secretions were appreciated. The tube was placed through the vocal cords and into the trachea to a distance of 22 cm. The balloon was inflated, good bilateral breath sounds were appreciated, and a post procedural chest x-ray shows adequate placement of the endotracheal tube. There were no apparent complications.
[2020-08-06 14:56] LABS: ABG BASE EXCESS -7.4 (-2.0-2.0); ABG HCO3 17.3 MEQ/L (22.0-26.0); ABG O2 SATURATION 92.4 % (95.0-99.0); ABG PARTIAL PRESSURE O2 68.1 mmHg (75.0-100.0); ABG STANDARD HCO3 18.3 MEQ/L (22.0-26.0); ABG TOTAL CO2 18.3 MEQ/L (23.0-31.0); ABG pH (ARTERIAL) 7.351 UNITS (7.350-7.450)
--- NOTE | 2020-08-06 14:59 | REP ---
INDICATION: Renal failure,Resp Failure. R/O Pulm Renal syndrome.. COMPARISON: 07/20/2020. TECHNIQUE: CT chest performed without the use of intravenous contrast. Sagittal and coronal reconstruction images are performed. FINDINGS: Lungs: There are diffuse ground-glass opacities throughout both lungs with a superimposed interlobular septal thickening diffusely, having a "crazy paving" appearance. These infiltrates are nonspecific but could be compatible with the clinical history of a pulmonary renal syndrome such as Goodpasture syndrome. Denser patches of parenchymal opacity are seen in the dependent portion of both lungs with mild extent. Mediastinum: No gross adenopathy. Kiara: No gross adenopathy. Axilla: No gross adenopathy. Pleura: No effusion. Heart: Not enlarged. Thoracic aorta: No aneurysm. Upper abdominal structures: There is left renal atrophy. Visualized osseous structures: Unremarkable. Endotracheal tube is seen with the tip at the kasey. A nasogastric tube is seen traversing into the stomach. There is a right central venous catheter with the tip in the right atrium. IMPRESSION: There are diffuse ground-glass opacities throughout both lungs with a superimposed interlobular septal thickening diffusely, having a "crazy paving" appearance. These infiltrates are nonspecific but could be compatible with the clinical history of a pulmonary renal syndrome such as Goodpasture syndrome. Denser patches of parenchymal opacity are seen in the dependent portion of both lungs with mild extent. <Electronically signed by Christophe Ayala > 08/06/20 [id number]
--- NOTE | 2020-08-06 15:03 | CCN ---
CRITICAL CARE NOTE DATE: 08/06/2020 The patient is seen in the intensive care unit intubated and mechanically ventilated, critical ill. This is hospital day #5, endotracheal tube day #2, dialysis catheter placed in interventional radiology (IR). Over the night, the patient's blood pressure has been variable. At bedside, temperature is 99.9, pulse rate 116, respirations 20, blood pressure 87/49. Intake and output for the past 24 hours is 0 in, 840 out, since midnight 0 in, 150 out. She is ill appearing. The endotracheal tube is in good position. Mucosa is dry. Neck is supple without meningismus. Heart sounds are regular, somewhat distant. Breath sounds are diminished globally. There are rales bilaterally. The chest moves symmetrically. The patient does engage accessory muscles when breathing over the mechanically ventilated breaths. Abdomen is soft. Extremities are cool. Pulses are diminished. DIAGNOSTIC STUDIES: Her white cell count is down this morning at 17.2, hemoglobin is down at 7.4, hematocrit 23, platelet count 279,000. Electrolytes are sodium 143, potassium 4.3, chloride 108, CO2 of 21, BUN 87, creatinine 5.75, glucose 163, lactic acid yesterday was 3.8. Calcium is 8.2. Arterial blood gases performed this morning show a pH of 7.33, pCO2 of 39, pO2 of 159. Multiple serologic studies are performed. Chest x-ray shows alveolar interstitial infiltrates. On review of medications, this is day #2 of Solu-Medrol. She has completed a course of cephalosporins. She is receiving DuoNeb, heparin for deep venous thrombosis (DVT) prophylaxis, and Protonix for ulcer prophylaxis. The primary problem requiring critical attention is acute respiratory failure. Arterial blood gases are better on mechanical ventilation. We will change her ventilatory mode in an effort to meet her flow demands and recheck arterial blood gases. 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 She has received 2 days of Solu-Medrol at this point. We are attempting to reach a point of stability that will allow us to do a chest CT scan, Perhaps this will guide biopsy procedure, yielding a more definitive diagnosis. Escherichia (E) coli urinary tract infection (UTI). The patient has received a course of cephalosporins. The bacterial was pansensitive. White cell count is somewhat better today. I will recheck a urine culture. Deep venous thrombosis (DVT) prophylaxis is being addressed with heparin. Ulcer prophylaxis is being addressed with Protonix. Nutritional support will need to be considered within the next 24 hours if the patient is unable to wean. I have discussed the case with nephrology and have updated the intensive care unit (ICU) team regarding goals of care for the day. Eighty-seven minutes was spent in the provision of bedside critical care and coordination, exclusive of any procedure time. SUBJECTIVE: OBJECTIVE: ASSESSMENT: PLAN:
[2020-08-06] MEDS ORDERED: methylPREDNISolone 1,000 MG, VIAL MATE ADAPTER 1 EACH in D5W 250 ML IV ONE (18:00)
[2020-08-06] MEDS: QUEtiapine FUMARATE 25 MG TAB PO SCH (20:26)
[2020-08-06] MEDS: **NOTE PATIENT COMMENT** MISC XX SCH (20:27)
[2020-08-06] MEDS: ACETAMINOPHEN TAB 650MG DOSE (2X325MG) PO PRN (22:16)
[2020-08-07] VITALS (23 sets, daily range): BP systolic 87–128; BP diastolic 50–72
[2020-08-07] MEDS: IPRATROPIUM 0.5MG/ALBUTEROL 2.5MG INH SOL UD 3ML (DUONEB) NEB SCH ×8 (00:34→20:19)
[2020-08-07] MEDS: SLF 3 ML SYR IV SCH ×3 (05:31→20:31)
[2020-08-07 05:37] LABS: ABG BASE EXCESS -7.3 (-2.0-2.0); ABG HCO3 16.9 MEQ/L (22.0-26.0); ABG O2 SATURATION 96.6 % (95.0-99.0); ABG PARTIAL PRESSURE CO2 29.1 mmHg (35.0-45.0); ABG PARTIAL PRESSURE O2 90.9 mmHg (75.0-100.0); ABG STANDARD HCO3 18.4 MEQ/L (22.0-26.0); ABG TOTAL CO2 17.8 MEQ/L (23.0-31.0); ABG pH (ARTERIAL) 7.382 UNITS (7.350-7.450)
[2020-08-07 05:42] LABS: BASO % 0.1 % (0.0-1.0); HEMATOCRIT 23.9 % (36.0-47.0); LYMPH # 0.9 10^3/uL (1.5-5.0); LYMPH % 4.2 % (24.0-44.0); MEAN CORPUSCULAR HEMOGLOBIN 27.5 pg (27.0-33.0); MEAN CORPUSCULAR HGB CONC 33.5 g/dl (32.0-36.5); MEAN CORPUSCULAR VOLUME 82.1 fl (80.0-96.0); MONO # 0.8 10^3/uL (0.0-0.8); MONO % 3.8 % (0.0-5.0); NEUTROPHILS # 18.9 10^3/uL (1.5-8.5); NEUTROPHILS % 89.8 % (36.0-66.0); PLATELET COUNT, AUTOMATED 270 10^3/uL (150-450); RED BLOOD COUNT 2.91 10^6/uL (4.00-5.40)
[2020-08-07 06:15] LABS: ALBUMIN 1.7 GM/DL (3.2-5.2); BILIRUBIN,TOTAL 0.6 MG/DL (0.2-1.0); CALCIUM LEVEL 7.6 MG/DL (8.8-10.2); CREATININE FOR GFR 6.5 MG/DL (0.55-1.30); GLOMERULAR FILTRATION RATE 6.7 (>39); PHOSPHORUS LEVEL 4.8 MG/DL (2.5-4.9); POTASSIUM SERUM 3.4 MEQ/L (3.5-5.1)
--- NOTE | 2020-08-07 07:55 | REP ---
INDICATION: ETT, pulm edema/ vasculitis COMPARISON: 08/06/2020 TECHNIQUE: Portable AP view of the chest FINDINGS: Endotracheal tube 1 cm above the kasey and warrants re-evaluation. Nasogastric tube courses below left hemidiaphragm. Double-lumen central line with tip in the SVC/right atrium. Mediastinum and cardiac silhouette are normal/stable. Lung warner demonstrate increased reticulonodular interstitial changes and subtle opacity similar to prior examination. No new acute consolidation, effusion, or pneumothorax. IMPRESSION: 1. Endotracheal tube warrants re-evaluation. 2. Diffuse reticulonodular interstitial changes and subtle opacity similar to prior examination. No effusion. <Electronically signed by Raoul Henriquez > 08/07/20 [id number]
[2020-08-07] MEDS: PANTOPRAZOLE 40MG VIAL (C9113 PER 1) IV SCH (08:57)
[2020-08-07] MEDS: DULoxetine 30 MG CAP (CYMBALTA) PO SCH ×2 (09:00→20:31)
[2020-08-07] MEDS: HEPARIN SOD (PORCINE) 5000UNITS/ML 1ML VIAL/SYRINGE SQ SCH ×2 (09:01→20:31)
[2020-08-07] MEDS: CHLORHEXIDINE GLUCONATE 0.12 % 15ML UDC (PERIDEX ORAL RINSE) MT SCH ×2 (09:04→20:51)
[2020-08-07] MEDS: LIDOCAINE 5% (LIDODERM) PATCH TOP SCH (09:04)
--- NOTE | 2020-08-07 11:07 | CCN ---
CRITICAL CARE NOTE DATE: 08/07/2020 START TIME: 904 STOP TIME: 944 SUBJECTIVE: I attended Carrie Calero here in the Intensive Care Unit. The patient has been examined, chart has been reviewed. T max overnight 99.0, blood pressure 91 to the low 100s, heart rate 80s to 120 with a sinus mechanism, respiratory rate anywhere from 16 to 24. Input and output midnight to midnight 2,969 mL in with 525 mL out. Chest x-ray done this morning I do believe does show some improvement overall in aeration. Attempts at ventilator changes were made at the bedside and she was completely intolerant of even a change to pressure regulated volume control even with significant tidal volumes and therefore was returned to pressure control mode. She does prefer drawing very significant tidal volumes. White blood cell count 21.0, hemoglobin 8.0, platelet count 270,000, 89.8% segs, no bands. Sodium 146, K 3.4, chloride 114, CO2 21, BUN 112, creatinine 6.5. Alkaline phosphatase 142, LDH 550, total CK 504, BNP remains elevated at 10,987. Blood gas done this morning on a pressure control mode with a minute ventilation of 10.2 liters has a pH of 7.32, pCO2 29.1, pO2 90.9. That is on 50% FiO2. No new culture data available. OBJECTIVE: GENERAL: She is sedate. Agitated when sedation is lightened but moves all extremities. HEENT: Pupils do react. Sclerae are clear. CHEST: Clear anteriorly. There are some dependent crackles. No convincing rhonchi or wheeze. CARDIAC: Cardiac exam intermittently tachycardic. Peripheral pulses are diminished. No convincing edema. ABDOMEN: Soft. There are active bowel sounds, no convincing organomegaly or masses. EXTREMITIES: No cyanosis or clubbing. NEURO: Neurologically as outlined above. THE MOST PRESSING PROBLEMS REQUIRING MY PRESENCE AT THE BEDSIDE: 1. Hypoxemic respiratory failure. 2. Respiratory failure requiring mechanical ventilatory support. 3. Renal failure. 4. Suspicion of pulmonary renal syndrome. 5. E. coli UTI. She remains on IV steroids and I do believe this is helping. Ulcer and DVT prophylaxis are in place. At this point she is intolerant of changes in her ventilatory support. We will continue with IV Solu-Medrol at 80 mg IV q.8h. I was told by Dr. Rizzo that a conversation was had with Dr. Franklin concerning whether she should have either a lung or kidney biopsy and certainly in view of her respiratory status, the risk for any pulmonary invasive procedure is starkly too high and if biopsy is required I would proceed with a renal biopsy but we will defer that to the nephrology service. In her chart there is a several year old MOLST form which states DO NOT INTUBATE. We will need to have that addressed. I will have a conversation with the previous primary service who attended her prior to her current intubation. For now she will be continued on her current antimicrobials. At this point she is not tolerating any changes in her ventilator and therefore weaning is unfortunately out of the question. At this point she remains quite critically ill. Her prognosis is guarded at best in view of the above. I await further input from the nephrology service today. I left the bedside at 0945 hours. Forty minutes of critical care time at the bedside not including procedures. WHITNEY
[2020-08-07] MEDS: cefTRIAXone SOD 1 GM in D5W MINI-BAG PLUS 50 ML IV SCH (11:55)
[2020-08-07] MEDS: methylPREDNISolone 125MG 2ML VIAL IV SCH (11:55)
[2020-08-07] MEDS ORDERED: D5W 1000ML IV ONE (13:00)
[2020-08-07] MEDS: METOCLOPRAMIDE INJ 10MG/2ML VIAL (J2765 PER 1) IV SCH ×2 (16:49→23:01)
[2020-08-07] MEDS ORDERED: methylPREDNISolone 1,000 MG, VIAL MATE ADAPTER 1 EACH in D5W 250 ML IV ONE (18:00)
--- NOTE | 2020-08-07 19:11 | IPN ---
NEPHROLOGY PROGRESS NOTE DATE: 08/07/2020 SUBJECTIVE: Patient was seen and examined at the bedside today morning in the ICU. She remains intubated. Her FIO2 requirement on the vent is 50%. She is currently not requiring any pressors. She is in oliguric renal failure. We planned to do CVVHDF at the bedside, however because of the COVID-19 pandemic and staffing situation, we are unable to do CVVHDF. Patient got second dose of pulsed steroids yesterday. She was started on tube feeds yesterday which she tolerated overnight, however, currently they are on hold because of residuals. OBJECTIVE: VITAL SIGNS: Temperature 99.4 degrees Fahrenheit, blood pressure 99/58, pulse 127, respiratory rate 16, saturating 95% on the vent with 50% FIO2. INTAKE AND OUTPUT: Urine output recorded as 525 mL yesterday, 242 mL so far today since overnight. Weight on the bed scale is 66.5 kg. PHYSICAL EXAMINATION: GENERAL: Patient is intubated, sedated, lying in bed. HEAD/NECK: Pupils are equally round and reactive to light. Mucous membranes are moist. Neck is supple. She has a right IJ tunneled hemodialysis catheter. CARDIOVASCULAR: S1, S2, regular rate. No significant edema of the bilateral lower extremities. RESPIRATORY: Coarse breath sounds bilaterally. She is currently vent dependent. ABDOMEN: Soft, positive bowel sounds, nontender. No organomegaly. GENITOURINARY: She has an indwelling Lauren catheter. Urine in the bag is light yellow. No hematuria was noted. MUSCULOSKELETAL: No clubbing or cyanosis. Pulses are 2+. SPEECH AND HEARING DIRECTOR: The patient is intubated, sedated and she moves extremities on painful stimuli. LABORATORY DATA: CBC showed WBC 21, hemoglobin 8, platelets 270,000. BMP showed sodium 146, potassium 3.4, chloride 114, bicarb 21, BUN 112, creatinine 6.5. Lactic acid 1.1. Calcium 7.6. Phosphorus 4.8. BNP 1,987. IMMUNOLOGY: LAKESHA is negative. Anti-double stranded DNA is negative. ANCA and anti-GBM antibodies are pending. Akeley/lambda ratio is 1.68. IMAGING STUDIES: A repeat chest x-ray was done today morning, which showed endotracheal tube is above the [place], diffuse reticulonodular interstitial changes and subtle opacity similar to the prior exam. CURRENT INPATIENT MEDICATIONS: Patient's medications are all reviewed by myself. She continues to be on I.V. Rocephin. She will get third dose of I.V. Solu-Medrol today. Metoprolol and Nitroglycerin pitch have been stopped and she was not receiving them either in the last few days. No other significant change in the medications today as compared with yesterday. ASSESSMENT AND PLAN: 1. Acute nonoliguric renal failure: Patient has mild proteinuria and hematuria on urinalysis. No renal biopsy is available. Given the clinical scenario, patient is behaving like pulmonary-renal syndrome. Today is the third dose of I.V. pulsed steroids. Because of the staffing issue, CVVDHF is not possible. I would try to do bedside hemodialysis for 3 hours with low blood flow and no fluid removal. 2. 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 Patient is empirically being covered with I.V. antibiotics. Third dose of I.V. pulsed steroids 1 gram will be given today. After that, she will be switched to I.V. lower dose Solu-Medrol. LAKESHA and anti-double stranded DNA antibody is negative. ANCA and anti-GBM antibodies are pending. We are in the process of having the patient transferred to [facility] or [place] if the bed is available for plasmapheresis and initiation of inpatient immunosuppression. I discussed the case with pulmonary service as well and because of her pulmonary situation, at this time it will be risky to do a bronchoscopy on the patient. 3. Anemia: Patient got PRBC transfusion yesterday, transfuse p.r.n. for hemoglobin less than 8. 4. E. Coli urinary tract infection: It has been adequately treated. E. Coli was sensitive to the antibiotic that patient was receiving. 5. Goals of care: Currently patient is being treated as possible pulmonary-renal syndrome. I discussed the case with the transfer center at [facility], they are ready to accept the patient, but there is no bed available. They do not have a waiting list at this time because of the COVID-19 pandemic and they asked us to get in touch with them again tomorrow. I discussed the case with patient's son, Edis, at cell phone and I updated him about patient's current status and about patient's possible transfer if a bed is available. Pulmonary service is also in touch with the [facility] for possible transfer if a bed is available. Patient needs plasmapheresis at this time, which is not available in our hospital and she would also need initiation of inpatient immunosuppression with Cytoxan or Rituxan. Total critical care time spent in the management of this patient today morning excluding all the procedures was 50 minutes.
[2020-08-07] MEDS: **NOTE PATIENT COMMENT** MISC XX SCH (20:31)
[2020-08-07] MEDS: QUEtiapine FUMARATE 25 MG TAB PO SCH (20:31)
[2020-08-07] MEDS: MORPHINE 2 MG/ML 1ML VIAL (J2270) IV PRN (20:34)
[2020-08-07] MEDS: MIDAZOLAM INJ 2MG/2ML VIAL (J2250 PER 1MG) IV PRN (20:51)
[2020-08-07] MEDS ORDERED: AMIODARONE 150MG/3ML INJ (J0282) IVP STA (21:02)
[2020-08-07] MEDS ORDERED: AMIODARONE HCL 150 MG in IV 1 EA IV ONE (21:15)
[2020-08-08] VITALS (35 sets, daily range): BP systolic 82–141; BP diastolic 45–64
[2020-08-08] MEDS: IPRATROPIUM 0.5MG/ALBUTEROL 2.5MG INH SOL UD 3ML (DUONEB) NEB SCH ×6 (02:00→19:56)
[2020-08-08] MEDS: MIDAZOLAM HCL 100 MG in D5W 80 ML IV SCH ×2 (03:44→21:15)
[2020-08-08] MEDS: METOCLOPRAMIDE INJ 10MG/2ML VIAL (J2765 PER 1) IV SCH ×4 (04:11→22:25)
[2020-08-08 05:34] LABS: BASO % 0.1 % (0.0-1.0); HEMATOCRIT 24.5 % (36.0-47.0); HEMOGLOBIN 8.3 g/dl (12.0-15.5); LYMPH # 0.9 10^3/uL (1.5-5.0); MEAN CORPUSCULAR HGB CONC 33.9 g/dl (32.0-36.5); MEAN CORPUSCULAR VOLUME 79.8 fl (80.0-96.0); MONO # 0.8 10^3/uL (0.0-0.8); MONO % 3.5 % (0.0-5.0); NEUTROPHILS # 19.9 10^3/uL (1.5-8.5); NEUTROPHILS % 91.1 % (36.0-66.0); PLATELET COUNT, AUTOMATED 228 10^3/uL (150-450); RED BLOOD COUNT 3.07 10^6/uL (4.00-5.40); WHITE BLOOD COUNT 21.9 10^3/uL (4.0-10.0)
[2020-08-08 05:38] LABS: ABG BASE EXCESS 2.4 (-2.0-2.0); ABG HCO3 25.7 MEQ/L (22.0-26.0); ABG O2 SATURATION 94.9 % (95.0-99.0); ABG PARTIAL PRESSURE CO2 34.3 mmHg (35.0-45.0); ABG PARTIAL PRESSURE O2 72.4 mmHg (75.0-100.0); ABG STANDARD HCO3 26.6 MEQ/L (22.0-26.0); ABG TOTAL CO2 26.7 MEQ/L (23.0-31.0); ABG pH (ARTERIAL) 7.492 UNITS (7.350-7.450)
[2020-08-08] MEDS: SLF 3 ML SYR IV SCH ×3 (06:00→22:25)
[2020-08-08 06:06] LABS: ALBUMIN 1.7 GM/DL (3.2-5.2); BILIRUBIN,TOTAL 0.4 MG/DL (0.2-1.0); CALCIUM LEVEL 7.2 MG/DL (8.8-10.2); CREATININE FOR GFR 3.38 MG/DL (0.55-1.30); GLOMERULAR FILTRATION RATE 14.2 (>39); PHOSPHORUS LEVEL 3.3 MG/DL (2.5-4.9); POTASSIUM SERUM 3.2 MEQ/L (3.5-5.1); TOTAL PROTEIN 5.2 GM/DL (6.4-8.2)
[2020-08-08] MEDS: CHLORHEXIDINE GLUCONATE 0.12 % 15ML UDC (PERIDEX ORAL RINSE) MT SCH ×2 (08:08→20:28)
[2020-08-08] MEDS: LIDOCAINE 5% (LIDODERM) PATCH TOP SCH (08:08)
[2020-08-08] MEDS: PANTOPRAZOLE 40MG VIAL (C9113 PER 1) IV SCH (08:08)
[2020-08-08] MEDS: HEPARIN SOD (PORCINE) 5000UNITS/ML 1ML VIAL/SYRINGE SQ SCH (08:09)
--- NOTE | 2020-08-08 10:11 | REP ---
INDICATION: ETT, pulm edema/ vasculitis. COMPARISON: 08/07/2020. TECHNIQUE: SINGLE PORTABLE AP VIEW OF THE CHEST WAS PERFORMED. FINDINGS: Endotracheal tube, nasogastric tube and right central venous catheter are grossly unchanged. Diffuse bilateral infiltrates have not significantly changed. The heart mediastinum are stable. IMPRESSION: Stable exam. <Electronically signed by Christophe Ayala > 08/08/20 1007
[2020-08-08] MEDS: cefTRIAXone SOD 1 GM in D5W MINI-BAG PLUS 50 ML IV SCH (11:34)
[2020-08-08] MEDS: methylPREDNISolone 125MG 2ML VIAL IV SCH ×2 (11:34→19:06)
[2020-08-08 12:35] LABS: MAGNESIUM LEVEL 1.8 MG/DL (1.8-2.4)
--- NOTE | 2020-08-08 12:44 | CCN ---
CRITICAL CARE NOTE DATE: 08/08/2020 START TIME: 904 STOP TIME: 942 I again attended Carrie Calero here in the intensive care unit. The patient has been examined, chart reviewed. I spoke at length with the nurse at the bedside as well as Dr. Franklin from nephrology. Multiple phone calls have been made to [facility] in hopes of obtaining her a bed to receive plasmapheresis, but none were available. She remains intubated, sedated, mechanically ventilated. When sedation is lightened she remains altered and agitated. Tympanic membrane overnight 98.4, blood pressure 87-120s systolic. Respiratory rate about 16 to occasionally the low 20s with no significant ventilator asynchrony. FiO2 requirements vary between 40%-60%. She was dialyzed yesterday. Chest x-ray done today shows lines and tubes in good positions. Endotracheal (ET) tube is just above the kasey, and we will pull that back some today. She does have a little bit more in the way of atelectasis at the left base today, but overall her vascular markings are improved from yesterday. White blood cell count 21.9, hemoglobin 8.3, platelet count 228,000, 91% segs. No bands. Sodium 138, potassium 3.2, chloride 101, CO2 of 26, BUN 49, creatinine 3.38 (she was dialyzed yesterday). Alkaline phosphatase 141, LDH 505; these are essentially unchanged. Blood gas done on a pressure control mode with pressure support at 20, rate of 16, PEEP of 5, and FiO2 of 60% has a pH 7.492, pCO2 of 34.3, and paO2 of 72.4, saturation 94.9%. On exam, she is sedate but agitated when aroused. Pupils do react. There is mild dysconjugate gaze in my opinion. Membranes are moist. Trachea is in the midline. She had some bloody secretions suctioned this morning. Chest does show some mild rhonchi, left greater than right, that does clear with suctioning. There are dependent crackles. Expansion reasonably symmetric. Cardiac exam is generally regular with some premature atrial contractions (PACs). Peripheral pulses palpable. Trace edema. Abdomen soft. There are active bowel sounds. Extremities: No cyanosis or clubbing. Neurologic: As outlined above. She has ot been tolerating her tube feeds. She has had some diarrhea this morning, and a comfort tube was placed by nursing. The most pressing problems requiring my presence at the bedside: 1. Respiratory failure, felt to be secondary to pulmonary renal syndrome. 2. Renal failure. 3. Encephalopathy. 4. Atrial fibrillation, intermittent. 5. Escherichia (E) coli urinary tract infection (UTI). A long discussion was had with Dr. Franklin. At this point, since we are unable to get her to an institution for plasmapheresis, we will continue steroids. The serologies were sent but are still pending. She is not at all a candidate for a biopsy at this point, and we have no pathology in the hospital to even look at it. For now, we will continue her current ventilator settings and adjustments have been made, as she had a little bit of an alkalosis. We will pull her ET tube back a little bit today. Her intermittent bloody secretions, again, would be more supportive of our suspicion with pulmonary renal syndrome, and her current therapy will be continued. We will continue intravenous (IV) steroids as well as empiric antimicrobials. Ulcer and deep venous thrombosis (DVT) prophylaxis are in place. From a nutritional standpoint, we will try again with low-dose feeds. I am reluctant to increase any motility agents given her diarrhea. If that keeps up, certainly in view of her antimicrobials, we will need to consider checking Clostridium (C) difficile. I spoke with Dr. Mac yesterday. Reportedly, discussions were had with the family prior to her intubation, and per their request her previous DO NOT INTUBATE was rescinded. Certainly in view of her multiorgan failure, at this point, if she does not improve, those discussions will need to be had again. At this point, her prognosis is guarded at best, and there is a very high likelihood she may not survive this hospitalization. The lack of progression in her mental status, I find, very troubling. Certainly, we cannot wean her in the face of that, and if the family wishes continued full support, she may end up needing tracheostomy. We will have that discussion when the time comes. In the interim, we will continue as outlined above. I left the bedside at 0943 hours. Thirty-eight minutes of critical care time spent at the bedside, not including procedures.
[2020-08-08] MEDS ORDERED: POTASSIUM CHLORIDE 10% LIQ 20 MEQ/15 ML UDC NG ONE (13:00)
[2020-08-08] MEDS ORDERED: NS 1,000 ML IV ONE (13:30)
[2020-08-08 15:50] LABS: ABG BASE EXCESS -0.9 (-2.0-2.0); ABG HCO3 23.2 MEQ/L (22.0-26.0); ABG O2 SATURATION 93.8 % (95.0-99.0); ABG PARTIAL PRESSURE CO2 35.9 mmHg (35.0-45.0); ABG PARTIAL PRESSURE O2 71.7 mmHg (75.0-100.0); ABG STANDARD HCO3 23.7 MEQ/L (22.0-26.0); ABG TOTAL CO2 24.3 MEQ/L (23.0-31.0); ABG pH (ARTERIAL) 7.428 UNITS (7.350-7.450)
[2020-08-08] MEDS: QUEtiapine FUMARATE 25 MG TAB PO SCH (20:28)
[2020-08-08] MEDS: **NOTE PATIENT COMMENT** MISC XX SCH (20:28)
[2020-08-08] MEDS: MIDAZOLAM INJ 2MG/2ML VIAL (J2250 PER 1MG) IV PRN ×2 (20:38→21:15)
--- NOTE | 2020-08-08 20:45 | IPN ---
NEPHROLOGY PROGRESS NOTE DATE: 08/08/2020 SUBJECTIVE: The patient was seen and examined at the bedside today morning. She remains intubated at this time. FiO2 requirement in the morning is 60%. She has received three doses of IV pulse steroids. She is currently on a lower dose of Hydrocortisone. She remains oliguric at this time. She was dialyzed at the bedside yesterday. No fluid removal was done. She tolerated the dialysis procedure, however later at night the patient was in atrial fibrillation with rapid ventricular response. She was given a dose of IV Amiodarone. I was told by the nursing staff that the patient is having blood tinged secretions from the airway that are being suctioned from the endotracheal tube. So far we have not had any luck in transferring the patient for a higher level of care. There are no beds available at [facility], [facility] or [facility]. OBJECTIVE: VITAL SIGNS: Temperature is 98.5 degrees Fahrenheit, blood pressure is 102/53, pulse is 111, respiratory rate of 16, saturating 94% on the ventilator with 60% FiO2. INTAKE AND OUTPUT: Urine output recorded as 279 mL yesterday, 58 mL so far today. Weight in the bed scale is 70.4 kg. PHYSICAL EXAMINATION: GENERAL APPEARANCE: The patient is intubated, sedated, laying in bed. HEAD AND NECK: Pupils are equally round and reactive to light. She has an endotracheal tube and orogastric tube. CARDIOVASCULAR: S1, S2, tachycardia. EXTREMITIES: No edema of the bilateral lower extremities. RESPIRATORY: The patient has mild respiratory crackles bilaterally. She is dependent on the ventilator. ABDOMEN: Soft, positive bowel sounds, nontender, no organomegaly. GENITOURINARY: She has an indwelling Lauren catheter. MUSCULOSKELETAL: No clubbing, no cyanosis. Pulses are 2+. CENTER DIRECTOR LEAD TEACHER: The patient is intubated and sedated and moves extremities on painful stimuli. LAB REVIEW: CBC showed a WBC of 21.9, hemoglobin is 8.3, platelet count 228. BMP showed sodium of 138, potassium 3.2, chloride 101, bicarbonate 26, BUN 49, creatinine is 3.3. Calcium is 7.2, phosphorous 3.3, magnesium is 1.8. Albumin is 1.7. IMAGING: A chest x-ray was done today morning which showed endotracheal tube, NG tube and right central venous catheter are unchanged. Diffuse bilateral infiltrates have not significantly changed. CURRENT INPATIENT MEDICATIONS: The patient's medications were all reviewed by myself. She was given a dose of IV Amiodarone. She continues to be on Ceftriaxone and IV Solu-Medrol. No other significant change in the medications today. ASSESSMENT AND PLAN: 1. Acute oliguric renal failure - with associated mild proteinuria and hematuria and acute respiratory failure high suspicion for pulmonary renal syndrome. No positive serology or renal biopsy is available at this time. She is empirically being treated with IV pulse steroids. The patient needs plasma pheresis and IV immunosuppression. If a bed is available at a [facility], the patient needs to be transferred. She was dialyzed yesterday. Next hemodialysis will be depending upon her volume status, either tomorrow or Monday. 2. Acute hypoxic respiratory failure It is most likely pulmonary renal syndrome. She is status post steroids as mentioned above. Solu-Medrol dose has been decreased. TBM antibodies and ANCA is pending. The patient is on the waiting list at [facility] for transfer. 3. Anemia - The patient has possible pulmonary hemorrhages. She is having a blood and sputum from the endotracheal tube's suctioning. Transfuse p.r.n. for hemoglobin less than 8. 4. Feeding - The patient is getting Nepro tube feeds as tolerated. 5. Disposition - The patient is pending transfer at a higher level of care if a bed is available. At this point I would continue the steroids. If I get a positive serology or a tissue biopsy available, then I would try to arrange IV Rituxan while the patient is in the ICU.
[2020-08-09] VITALS (24 sets, daily range): BP systolic 90–127; BP diastolic 50–68
[2020-08-09] MEDS: MIDAZOLAM INJ 2MG/2ML VIAL (J2250 PER 1MG) IV PRN ×3 (01:53→04:08)
[2020-08-09] MEDS: methylPREDNISolone 125MG 2ML VIAL IV SCH ×2 (03:20→11:15)
[2020-08-09] MEDS: METOCLOPRAMIDE INJ 10MG/2ML VIAL (J2765 PER 1) IV SCH ×3 (04:43→16:06)
[2020-08-09] MEDS: SLF 3 ML SYR IV SCH ×2 (04:43→14:38)
[2020-08-09 04:57] LABS: BASO % 0.1 % (0.0-1.0); HEMOGLOBIN 8.9 g/dl (12.0-15.5); LYMPH # 0.7 10^3/uL (1.5-5.0); MEAN CORPUSCULAR HEMOGLOBIN 27.1 pg (27.0-33.0); MEAN CORPUSCULAR VOLUME 82.3 fl (80.0-96.0); MONO # 0.8 10^3/uL (0.0-0.8); MONO % 3.4 % (0.0-5.0); NEUTROPHILS # 22.8 10^3/uL (1.5-8.5); NEUTROPHILS % 92.6 % (36.0-66.0); PLATELET COUNT, AUTOMATED 203 10^3/uL (150-450); RED BLOOD COUNT 3.28 10^6/uL (4.00-5.40); WHITE BLOOD COUNT 24.6 10^3/uL (4.0-10.0)
[2020-08-09 05:22] LABS: ALBUMIN 1.8 GM/DL (3.2-5.2); BILIRUBIN,TOTAL 0.3 MG/DL (0.2-1.0); CALCIUM LEVEL 7.5 MG/DL (8.8-10.2); CREATININE FOR GFR 4.59 MG/DL (0.55-1.30); GLOMERULAR FILTRATION RATE 9.9 (>39); PHOSPHORUS LEVEL 5.3 MG/DL (2.5-4.9); POTASSIUM SERUM 3.8 MEQ/L (3.5-5.1); TOTAL PROTEIN 5.4 GM/DL (6.4-8.2)
[2020-08-09 06:08] LABS: ABG BASE EXCESS -1.2 (-2.0-2.0); ABG HCO3 23.1 MEQ/L (22.0-26.0); ABG O2 SATURATION 94.3 % (95.0-99.0); ABG PARTIAL PRESSURE O2 74.4 mmHg (75.0-100.0); ABG STANDARD HCO3 23.4 MEQ/L (22.0-26.0); ABG TOTAL CO2 24.3 MEQ/L (23.0-31.0); ABG pH (ARTERIAL) 7.414 UNITS (7.350-7.450)
[2020-08-09] MEDS: IPRATROPIUM 0.5MG/ALBUTEROL 2.5MG INH SOL UD 3ML (DUONEB) NEB SCH ×3 (07:34→15:31)
[2020-08-09] MEDS: PANTOPRAZOLE 40MG VIAL (C9113 PER 1) IV SCH (08:07)
[2020-08-09] MEDS: CHLORHEXIDINE GLUCONATE 0.12 % 15ML UDC (PERIDEX ORAL RINSE) MT SCH (08:07)
[2020-08-09] MEDS: LIDOCAINE 5% (LIDODERM) PATCH TOP SCH (08:07)
[2020-08-09] MEDS: MORPHINE 2 MG/ML 1ML VIAL (J2270) IV PRN ×2 (08:08→12:03)
--- NOTE | 2020-08-09 08:55 | REP ---
INDICATION: ETT, pulm edema/ vasculitis. COMPARISON: 08/08/2020. TECHNIQUE: SINGLE PORTABLE AP VIEW OF THE CHEST WAS PERFORMED. FINDINGS: Diffuse bilateral infiltrates have not significantly changed. Heart mediastinum are unchanged. Right central venous catheter, endotracheal tube and nasogastric tube have not definitely changed. IMPRESSION: Stable exam. <Electronically signed by Christophe Ayala > 08/09/20 [id number]
[2020-08-09] MEDS ORDERED: BISACODYL 10 MG SUPP PR PRN (09:15)
[2020-08-09 10:44] LABS: ABG BASE EXCESS -1.6 (-2.0-2.0); ABG HCO3 23.1 MEQ/L (22.0-26.0); ABG O2 SATURATION 93.8 % (95.0-99.0); ABG PARTIAL PRESSURE CO2 38.4 mmHg (35.0-45.0); ABG PARTIAL PRESSURE O2 72.6 mmHg (75.0-100.0); ABG STANDARD HCO3 23.1 MEQ/L (22.0-26.0); ABG TOTAL CO2 24.3 MEQ/L (23.0-31.0); ABG pH (ARTERIAL) 7.397 UNITS (7.350-7.450)
[2020-08-09] MEDS: cefTRIAXone SOD 1 GM in D5W MINI-BAG PLUS 50 ML IV SCH (11:16)
--- NOTE | 2020-08-09 11:38 | CCN ---
CRITICAL CARE NOTE DATE: 08/09/2020 START TIME: 831. STOP TIME: 906 SUBJECTIVE: I again attended Carrie Calero here in the intensive care unit. The patient has been examined, chart reviewed. I spoke at length with the nurse at the bedside. T-max overnight 98.9, blood pressure 90-120 systolic. Respiratory rate occasionally over the ventilator without accessory muscle use. Heart rate 60s to occasionally 110s with sinus mechanism. I's and O's midnight to midnight 1865 mL with 480 mL out. She remains with minimal urine. Most recent laboratories show white blood cell count 24.6, hemoglobin 8.9, platelet count 203,000, 92% segs, no bands. Sodium 140, potassium 3.8, chloride 104, CO2 of 23, BUN 82, creatinine up to 4.59 today. Calcium 7.5. LDH 441, albumin remains depressed at 1.8. Most recent blood gas done on a pressure control mode rate of 16, with FiO2 of 60% shows a pH 7.414, pCO2 of 37, and pO2 of 74.4, saturation 94.3%. Chest x-ray compared to yesterday no significant change, maybe a little bit more markings in right mid lung zone. On exam, she is sedate but quite agitated when sedation is lightened. Pupils do react, sclerae clear. Trachea is in the midline. Chest showed dependent end-inspiratory crackles with an end-inspiratory squeak. There are rare rhonchi cleared with suctioning. Borderline egophony especially in the lower zones. Expiration lungs are diminished and symmetric. Cardiac exam is distant, tachycardic but regular. Peripheral pulses are diminished, trace edema. Abdomen soft. There are active bowel sounds, no organomegaly or mass. Extremities: No cyanosis or clubbing. Neurologic: She is sedate, intermittently agitated. Most pressing problems require my presence at the bedside: 1. Hypoxemic respiratory failure requiring mechanical ventilatory support. 2. 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 3. Renal failure on the basis of the above. 4. Encephalopathy. 5. Intermittent Afib. 6. E. coli UTI. At this point we will continue with IV steroids and full supportive care for presumed pulmonary renal syndrome. Her mental status when sedation lightened remains a significant issue and clearly impairs our ability to wean her from the ventilator as well as her difficulties with oxygenation status. However, we will try IMV with high pressure support mode today and see if she tolerates that a little better. Her chest x-ray shows endotracheal tube again to be migrated within a centimeter of the kasey. We will pull that back again. She has had some difficulties tolerating enteral feeds. We will continue as tolerated. She is on Reglan. We will add cathartics and see if that helps. She remains on ulcer and DVT prophylaxis. Appreciate nephrology help. She likely may require dialysis in the next day or so if her urine output does not moss picker. At this point we will continue her current level of supportive care. We will continue her current antimicrobials as well for now. Overall she remains quite critically ill. Her prognosis remains guarded at best. We continue to reach out to institutions in hopes of offering her plasmapheresis. I left the bedside at 0907 hours. 35 minutes of critical care time were at the bedside, not including procedures.
[2020-08-09] MEDS ORDERED: NS 500 ML IV ONE (12:30)
[2020-08-09] MEDS: MIDAZOLAM HCL 100 MG in D5W 80 ML IV SCH (12:53)
[2020-08-09] MEDS ORDERED: KCL 20MEQ IN D5/0.45NS 1000ML 1,000 ML IV SCH (13:00)
[2020-08-09] MEDS ORDERED: AZITHROMYCIN INJ 500 MG, VIAL MATE ADAPTER 1 EACH in D5W 250 ML IV ONE (13:00)
--- NOTE | 2020-08-09 16:22 | DSES ---
TRANSFER SUMMARY DATE OF ADMISSION: 08/01/2020 DATE OF DISCHARGE: 08/09/2020 ADMITTING DIAGNOSES: 1. Altered mental status. 2. Acute on chronic renal failure. 3. Underlying hypertension. 4. Pulmonary renal syndrome. 5. Hypoxemic respiratory failure requiring mechanical ventilatory support. 6. E. Coli UTI. MEDICATIONS AT THE TIME OF TRANSFER: 1. Tylenol p.r.n. 2. Mylanta p.r.n. 3. Flonase nasal spray. 4. Lidoderm patch. 5. Seroquel 25 mg q.h.s. 6. Alprazolam 10 mg I.V. every 8 hours p.r.n. 7. Haldol 0.5 mg I.V. p.r.n.; last dose given on 08/05/2020. 8. Versed via continuous infusion. 9. Morphine I.V. p.r.n. 10.DuoNebs. 11.Solu-Medrol 80 mg I.V. every 8 hours. 12.Protonix 40 mg I.V. daily. 13.Rocephin 1 gram I.V. daily. 14.Reglan 10 mg I.V. every 6 hours. 15.Dulcolax p.r.n. HISTORY: This is a 75-year-old female admitted on 08/01/2020 with altered mental status. Initial concern was that she had taken too much of her medications at home. She does have a history of atherosclerotic cerebrovascular disease as well as coronary artery disease with stent placement. She has had gastric surgery in the past as well. She was quite hypoxic as well at the time of admission and concern was over pulmonary edema. PHYSICAL EXAMINATION AT THE TIME OF ADMISSION: GENERAL: Showed her to be awake, but drowsy. VITAL SIGNS: Temperature 99 degrees, blood pressure at that time 120/60, heart rate 115 with a sinus mechanism. LUNGS: Diffuse crackles. CARDIAC: Exam was distant but regular. ABDOMEN: Benign. EXTREMITIES: No cyanosis or clubbing. NEUROLOGIC: She was confused. HOSPITAL COURSE: Patient was admitted essentially to the Intensive Care Unit. Initially was on high flow oxygen, and then was placed on non-invasive support. She had progressive decline in her oxygenation status and was having marked difficulties with non-invasive support, and therefore was intubated and ventilated. Concern was raised for pulmonary renal syndrome given her presentation. Lab work for that is pending. She did develop some hemoptysis certainly fitting with that diagnosis. She has been receiving dialysis for that with successful removal of fluid with no overall improvement in her oxygenation status or the appearance of her x-ray. Plans for either renal or lung biopsy were entertained, but are currently not available here. She has been on I.V. steroids without improvement and before further therapy can be instituted, biopsy would need to be obtained. Given the clinical setting, the discussion for instituting plasmapheresis was entertained, but unfortunately that is not available at this institution. No beds available at either [facility] or [facility], and therefore call was made to [facility], who has graciously accepted her in transfer. Dr. Wade of the Intensive Care Unit has accepted her. At the time transfer, her vital signs show her blood pressure to be 106/56, respiratory rate several breaths above the ventilator. Saturation currently 95% on 60% FIO2 and 5 of PEEP. She is on an SIMV of 20, tidal volume of 500, PEEP of 5, pressure support of 20 and FIO2 of 60%. Pertinent laboratories are in the chart and will accompany this dictation as will copies of her x-rays. At this point, her prognosis remains guarded. Her mental status has not improved nor has her oxygenation status. Her prognosis remains guarded, and our hope is that plasmapheresis will improve her overall status. She has been hemodynamically stable at the time of this dictation.
--- NOTE | 2020-08-09 21:48 | IPN ---
NEPHROLOGY PROGRESS NOTE DATE: 08/09/2020 SUBJECTIVE: The patient was seen and examined at the bedside today morning. She remains intubated and lightly sedated. She is requiring 60% FiO2 on the vent, currently not requiring any pressors. Last dialysis was 2 days ago. No significant improvement in the renal function. She is oliguric at this time. OBJECTIVE: VITAL SIGNS: Temperature is 98.8, degrees Fahrenheit, blood pressure is 104/52, pulse is 122, respiratory rate of 16, saturating 96% on the vent with 60% FiO2. INTAKE AND OUTPUT: Urine output recorded as 80 mL, yesterday 155 mL so far today since overnight. Weight in the bed scale is 71.4 kg. PHYSICAL EXAMINATION: GENERAL APPEARANCE: The patient is intubated, sedated. Eyes are closed. HEAD AND NECK: Pupils are equally round and reactive to light. She has an endotracheal tube and orogastric tube. Neck is supple. She has a right IJ tunneled hemodialysis catheter. CARDIOVASCULAR: S1, S2, regular rate. EXTREMITIES: No edema of the bilateral lower extremities. RESPIRATORY: Mild inspiratory crackles bilaterally in the lungs. ABDOMEN: Soft, positive bowel sounds, nontender, no organomegaly. GENITOURINARY: She has an indwelling Lauren catheter. MUSCULOSKELETAL: No clubbing, no cyanosis. Pulses are 2+. 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 Otherwise she moves on painful stimuli. LAB REVIEW: CBC showed a white blood cell count of 24.6, hemoglobin is 8.9, platelet count 203. ABG done today morning showed pH of 7.39, pco2 of 38, pO2 of 72, bicarbonate is 23, O2 sat is 93%. BMP showed sodium of 140, potassium 3.8, chloride 104, bicarbonate 23, BUN 82, creatinine is 4.5. Calcium is 7.5, phosphorous is 5.3, albumin is 1.8. Immunology: LAKESHA is negative. C-ANCA is negative. Anti-protein is negative. P-ANCA is negative. Atypical ANCA is negative. Myeloperoxidase antibody is elevated at 17.5. Anti-double standard DN antibodies is negative and low basement membrane antibody is still pending. CURRENT INPATIENT MEDICATIONS: The patient's medications were all reviewed by myself. I gave her a dose of IV Azithromycin. She continues to be on Ceftriaxone a 500 mL normal saline bolus was given. She continues to be on Solu-Medrol 80 mg IV q. 8 hourly. No other significant change in the medications today as compared with yesterday. ASSESSMENT AND PLAN: 1. Acute oliguric renal failure - The patient has sub-nephrotic range proteinuria and mild hematuria. Myeloperoxidase antibody is positive. The rest of the serologies are negative or pending. She has been given 3 days of pulse steroids one gram. Currently she is on Solu-Medrol 80 mg IV q. 8 hourly. There is a high suspicion of pulmonary renal syndrome. The case was discussed with [facility]. They have accepted the patient and the patient will be transferred under their care for possible plasma phoreses. Unfortunately no tissue biopsy specimen is available because the patient is intubated. We could not do the kidney biopsy and because of possible active pulmonary hemorrhage, no lung biopsy was done. 2. Acute hypoxic respiratory failure most likely pulmonary renal syndrome. Myeloperoxidase antibody just came back positive, status post pulse steroids. The patient will possibly get plasma phoreses at [facility]. 3. Nutrition - The patient is not tolerating the tube feeds - She has high residue. Tube feeding has been stopped. She has been started on Dextrose containing IV fluids. 4. Bilateral interstitial infiltrates on the x-ray most likely it is pulmonary renal syndrome, however serology for atypical pneumonia has been ordered and IV Azithromycin was also given one dose today. 5. Anemia - hemoglobin level is stable. No need of blood transfusion at this time. The patient has been accepted at [facility] by Dr. Arenas. She will be admitted to the ICU under their care. After she gets her plasma phoreses, we shall be happy to accept the patient back to our center. She would need IV Cytoxan or Rituxan initiated along with plasma phoreses. Total critical care time spent in managing and coordinating the care of this patient in the ICU excluding all the procedures was 50 minutes.
== END 2020-08-09 19:17 | disposition short-term general hospital (02) | DRG 871 ==
LOC: M ED 23:34 → EDBEDREQTM 08-01 05:05 → M ED INP 08-01 05:09 → CANBEDREQ 08-01 05:11 → M PCU 08-01 16:12
PROVIDERS: ADMIT Internal Medicine; ATTEND Internal Medicine Pulmonary Disease
PROC: 30233N1 Transfusion of Nonautologous Red Blood Cells into Peripheral Vein, Percutaneous Approach (ICD-10-PCS; 2020-08-01)
PROC: 02HV33Z Insertion of Infusion Device into Superior Vena Cava, Percutaneous Approach (ICD-10-PCS; 2020-08-05)
PROC: 0JH63XZ Insertion of Tunneled Vascular Access Device into Chest Subcutaneous Tissue and Fascia, Percutaneous Approach (ICD-10-PCS; 2020-08-05)
PROC: 0BH17EZ Insertion of Endotracheal Airway into Trachea, Via Natural or Artificial Opening (ICD-10-PCS; principal; 2020-08-06)
PROC: 5A1D70Z Performance of Urinary Filtration, Intermittent, Less than 6 Hours Per Day (ICD-10-PCS; 2020-08-07)
DX: A41.9 Sepsis, unspecified organism (principal); G93.41 Metabolic encephalopathy; I50.33 Acute on chronic diastolic (congestive) heart failure; J96.01 Acute respiratory failure with hypoxia; N39.0 Urinary tract infection, site not specified; J44.1 Chronic obstructive pulmonary disease with (acute) exacerbation; E87.2 Acidosis; I13.0 Hypertensive heart and chronic kidney disease with heart failure and stage 1 through stage 4 chronic kidney disease, or unspecified chronic kidney disease; M31.0 Hypersensitivity angiitis; N17.9 Acute kidney failure, unspecified; E87.6 Hypokalemia; E83.51 Hypocalcemia; I25.10 Atherosclerotic heart disease of native coronary artery without angina pectoris; R65.20 Severe sepsis without septic shock; N18.30 Chronic kidney disease, stage 3 unspecified; B96.20 Unspecified Escherichia coli [E. coli] as the cause of diseases classified elsewhere; E78.5 Hyperlipidemia, unspecified; I67.2 Cerebral atherosclerosis; F32.9 Major depressive disorder, single episode, unspecified; F41.9 Anxiety disorder, unspecified; F17.210 Nicotine dependence, cigarettes, uncomplicated; D63.8 Anemia in other chronic diseases classified elsewhere; M81.0 Age-related osteoporosis without current pathological fracture; R19.7 Diarrhea, unspecified; G25.81 Restless legs syndrome; I77.6 Arteritis, unspecified; K21.9 Gastro-esophageal reflux disease without esophagitis; G89.29 Other chronic pain; Z95.5 Presence of coronary angioplasty implant and graft; Z20.822 Contact with and (suspected) exposure to COVID-19; Z86.73 Personal history of transient ischemic attack (TIA), and cerebral infarction without residual deficits; Z79.82 Long term (current) use of aspirin; Z79.899 Other long term (current) drug therapy; Z53.09 Procedure and treatment not carried out because of other contraindication

== ENCOUNTER 2020-08-14 13:07 | Inpatient (IN) | payer MEDICARE, OTHER ==
[~2020-08-14] VITALS: Ht 162.6 cm; Wt 75.7 kg
[~2020-08-14 13:07] MED LIST changes: +LIDO1PAD TOP; +MED REC COMMENT; +METH-1165 PO
[2020-08-14] MEDS: CHLORHEXIDINE GLUCONATE 0.12 % 15ML UDC (PERIDEX ORAL RINSE) MT SCH (21:00)
[2020-08-15] VITALS (76 sets, daily range): BP systolic 63–175; BP diastolic 30–78; O2SAT 94
--- OUTSIDE RECORDS SUMMARY | 2020-08-15 02:02 | CCD | Continuity of Care Document ---
Author Author Carrie ARRIAZA Organization Unknown Address [address] [place] [address] Phone [phone] Care Team Providers Care Software Project Engineer Name Role Phone Kaylene Rain DO AUTM [phone] Maximo Rodriguez MD Unavailable Problems Active Problems [...] Héctor Hewitt MD 07/29/2020 Hydrocodone-Acetaminophen 5-325mg Tablets Take 1 Tablet By Mouth Every 8 Hours as Needed For Pain, MDD 3 12tabs S32.020A Jackeline Acosta MD 07/29/2020 Tramadol HCL 50mg Tablets take [...] Available Procedures Date Code Description Status 07/29/2020 93441 X-Ray Spine Thoracolumbar Ap & L ateral 2 Views Completed 06/18/2020 19450 X-Ray Spine Lumbosacral Ap & Lat eral 2-3 Views Completed Medical Devices Description No Information Available Encounters Type Date Location Provider Dx Diagnosis Office Visit 07/29/2020 10:15a [facility] S32.020A Wedge compression fracture of second lumbar vertebra, init S32.048A Oth fracture of fourth lumba r vertebra, init for clos fx Office Visit 06/18/2020 10:45a [facility] S32.040D Wedge comprsn fx fourth lum vert, subs for fx w routn heal M51.36 Other intervertebral disc de generation, lumbar region M47.896 Other spondylosis, lumbar re gion M16.0 Bilateral primary osteoarthr itis of hip Office Visit 04/28/2020 3:15p [place] [facility] M54.5 Low back pain M16.0 Bilateral primary osteoarthr itis of hip M70.61 Trochanteric bursitis, right hip M70.62 Trochanteric bursitis, left hip S32.040S Wedge compression fracture o f fourth lum vertebra, sequela Assessments Date Code Description Provider 07/29/2020 S32.020A Wedge compression fr acture of second lumbar vertebra, initial encounter for closed fracture [facility] 07/29/2020 S32.048A Other fracture of fo urth lumbar vertebra, initial encounter for closed fracture [facility] 06/18/2020 S32.040D Wedge compression fr acture of fourth lumbar vertebra, subsequent encounter for fracture with routine healing [facility] 06/18/2020 M51.36 Other intervertebral disc degene ration, lumbar region [facility] 06/18/2020 M47.896 Other spondylosis, lumbar region [facility] Davalos 06/18/2020 M16.0 Bilateral primary osteoarthritis of hip [facility] Davalos 05/20/2020 M51.36 Other intervertebral disc degene ration, lumbar region [facility] Dav[facility]os 05/20/2020 M47.896 Other spondylosis, lumbar region Sha Arriaza, PA 05/20/2020 M16.0 Bilateral primary osteoarthritis of [...] for fracture with routine healing [facility] Davalos Plan of Treatment Future Appointment(s):* 08/12/2020 1:15 pm - [facility] Davalos at [place] 07/29/2020 - [facility]os* S32.020A Wedge compression fracture of second lumbar vertebra, initial encounter for closed fracture* New Medication:* Tizanidine HCL 4 mg - 1 by mouth three times a day * Hydrocodone-Acetaminophen 5-325 mg - Take 1 Tablet By Mouth Every 8 Hours as Needed For Pain, MDD 3 * Follow up:* 2 weeks for back recheck with IID with repeat xrays * S32.048A Other fracture of fourth lumbar vertebra, initial encounter for closed fracture Functional Status Description No Information Available Mental Status Description No Information Available Referrals Refer to Dr Reason for Referral Status Appt Date Sha Arriaza Pac PT BASED ON MED. [facility] TO PT DEPT, NT Create d [address] [place] [address] [phone]
--- OUTSIDE RECORDS SUMMARY | 2020-08-15 02:06 | CCD ---
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 Name Role Phone Koffi, Kaylene DO Unavailable [...] DO Unavailable Unavailable Kocan, J Maria Elena HEAD WOOD GRINDER Unavailable Unavailable Kocan, J Maria Elena HEAD WOOD GRINDER Unavailable Unavailable Kocan, J Maria Elena HEAD WOOD GRINDER Unavailable Unavailable Kocan, J Maria Elena HEAD WOOD GRINDER Unavailable Unavailable Kocan, J Maria Elena HEAD WOOD GRINDER Unavailable Unavailable Kocan, J Maria Elena HEAD WOOD GRINDER Unavailable Unavailable Kocan, J Maria Elena HEAD WOOD GRINDER Unavailable Unavailable Kocan, J Maria Elena HEAD WOOD GRINDER Unavailable Unavailable Kocan, J Maria Elena HEAD WOOD GRINDER Unavailable Unavailable Kocan, J Maria Elena HEAD WOOD GRINDER Unavailable Unavailable Kocan, J Maria Elena HEAD WOOD GRINDER Unavailable Unavailable Kocan, J Maria Elena HEAD WOOD GRINDER Unavailable Unavailable Kocan, J Maria Elena HEAD WOOD GRINDER Unavailable Unavailable Koffi, Kaylene DO Unavailable Unavailable [...] I FIGUEROA PA Unavailable Unavailable DRAZEK, I FIGUERAO PA Unavailable Unavailable DRAZEK, I FIGUEROA PA [...] PA Unavailable Unavailable RODRIJAYSON MD Unavailable Unavailable RODRI, [...] RODRI, JAYSON CURRIE Unavailable Unavailable RODRI, JAYSON UCRRIE Unavailable Unavailable RODRI, JAYSON CURRIE Unavailable Unavailable [...] Unavailable Ali, Cruzito MD Unavailable Unavailable Ali, Rcuzito MD Unavailable Unavailable Ali, Cruzito MD Unavailable [...] is protected by Article 27-F of the [facility] Public Health law. If you continue [...] law may result in a fine or care home sentence or both. A general authorization for the release of medical or other information is NOT sufficient authorization for further disc losure. Family History Family Member Name Family Member Gender Family Member Status Date o f Status Description Data Source(s) Unknown Unknown Problem MEDENT ([facility]) Unknown Unknown Problem MED[facility] ([facility]) Unknown Unknown Problem [facility] ([facility]) Unknown Unknown Problem MED[facility] ([facility]) Unknown Unknown Problem MED[facility] ([facility]) Encounters Encounter Providers Location Date Indications Data Source(s ) Office Visit Attender: FIGUEROA VAZ Physical Therapy 2020 09:15:00 AM EST MEDENT ([facility]) Unknown [address] [facility] [facility] [id number] 07/28/2020 12:00:00 AM EST eCW1 ([facility]) Office Visit, Est Pt., Level 4 PC [address] [place] [address] 07/13/2020 12:00:00 AM EST eCW1 ([facility]) Office Visit Attender: Cruzito Tan MD Main office - [place] 07/01/2020 01:45:00 PM EST MEDENT ([facility]) Office Visit, Est Pt., Level 5 PC [address] [place] [address] 06/24/2020 12:00:00 AM EST eCW1 ([facility]) OFFICE OUTPATIENT VISIT 15 MINUTES Attender: FIGUEROA VAZ Phys ical Therapy 06/18/2020 09:45:00 AM EST MEDENT ([facility]) Outpatient Attender: Maria Elena STUART SJP.[email or web address]-SJP.ISRRAEL 2019 12:00:00 AM EST - 06/12/2020 02:38:36 PM EST [facility] Unknown [address] [facility] [id number] 06/09/2020 12:00:00 AM EST eCW1 ([facility]) Unknown [address] [facility] [id number] 06/08/2020 12:00:00 AM EST eCW1 ([facility]) Office Visit, Est Pt., Level 5 PC [address] [place] [address] 06/04/2020 12:00:00 AM EST eCW1 ([facility]) Outpatient Attender: Kaylene Desir 05/26 01:00:00 PM EST MEDENT ([facility] ) Unknown [address] [facility] [facility] [id number] 05/21/2020 12:00:00 AM EST eCW1 ([facility]) Outpatient [address] [facility] [facility] [id number] 05/19/2020 12:00:00 AM EST eCW1 ([facility]) Unknown [address] [facility] [facility] [address] 05/12/2020 12:00:00 AM EST eCW1 ([facility]) Outpatient [address] [facility] [facility] [id number] 05/05/2020 12:00:00 AM EST eCW1 ([facility]) OFFICE OUTPATIENT VISIT 15 MINUTES Attender: FIGUEROA VAZ Phys ical Therapy 04/28/2020 03:15:00 PM EDT MED[facility] ([facility]) Office Visit Attender: Cruzito Tan MD Main office - [place] 01/28/2020 02:00:00 PM EDT MED[facility] ([facility]) Outpatient [address] [facility] [facility] [id number] 01/21/2020 12:00:00 AM EDT eCW1 ([facility]) Outpatient Referrer: Kaylene Rain DO 12/23/2019 07:50:00 AM EDT [facility] Outpatient Attender: Kaylene Koffi Desir 12/18 02:00:00 PM EDT MEDENT ([facility] ) Outpatient Attender: JAYSON CRUZ 0 12:00:00 AM EDT - 10/24/2019 09:09:45 AM EDT [facility] Outpatient Attender: Kaylene Desir 10/21 02:45:00 PM EDT MEDENT ([facility] ) Outpatient Referrer: Kaylene Rain DO 10/10/2019 01:59:00 PM EDT [facility] Outpatient Referrer: Kaylene Rain DO 10/02/2019 03:18:00 PM EDT [facility] Outpatient Referrer: Kaylene Rain DO 10/02/2019 10:31:00 AM EDT [facility] Outpatient Attender: Kaylene Desir 09/22 02:45:00 PM EDT MEDENT ([facility] ) Outpatient Attender: Radha Dominguez/Gaye/Bryson/Laura purvis 09/17/2019 11:00:00 AM EDT MED[facility] ([facility]) Outpatient Attender: Kaylene Desir 09/05 01:00:00 PM EST MEDENT ([facility] ) Outpatient Referrer: JAYSON ECKERTISRRAEL 08/07/2019 12:00:00 AM EST [facility] Outpatient Attender: Kaylene Desir 07/23 12:30:00 PM EST MEDENT ([facility] ) Outpatient Attender: JAYSON MACE MDConsultant: JAYSON Avitia JP.ZEINAB 07/10/2019 12:22:38 PM EST - 07/10/2019 02:02:15 PM EST [facility] Outpatient Referrer: Kaylene Rain DO 07/08/2019 02:11:00 PM EST [facility] Outpatient Attender: Radha Dominguez/Gaye/Olaf purvis 06/19/2019 10:15:00 AM EST MED[facility] ([facility]) Outpatient Attender: Kaylene Desir 06/17 01:30:00 PM EST MEDENT ([facility] ) Immunizations Vaccine Date Status Description Data Source(s) INFLUENZA VIRUS VACCINE QUADRIVAL SPLIT 2019-21(65 YR UP)/PF 04/14/2020 12:00:00 AM EDT completed [facility] Medications Medication Brand Name Start Date Product Form Dose Route Admi nistrative Instructions Pharmacy Instructions Status Indications Reaction Description Data Source(s) 5-325 mg 07/31/2020 12:00:00 AM EST tablet 12 TAKE ONE TABLET BY MOUTH EVERY 8 HOURS NEEDED FOR PAIN MAXIMUM DAILY DOSE = 3 TABLETS TAKE ONE TABLET BY MOUTH EVERY 8 HOURS NEEDED FOR PAIN MAXIMUM DAILY DOSE = 3 TABLETS SOLD: 08/01/2020 [facility] Acetaminophen 325 MG / Hydrocodone Bitartrate 5 MG Ora l Tablet Hydrocodone-Acetaminophen 07/29/2020 12:00:00 AM EST active MED[facility] ([facility]) tizanidine 4 MG Oral Capsule Tizanidine HCL 07/29/2020 12:00:00 AM EST ORAL active [facility] ([facility]) 4 mg [...] SPRAY IN ONE NOSTRIL DAILY SOLD: 07/25/2020 [facility] Glycopyrrolate 1 MG Oral Tablet Glycopyrrolate 07/23/2020 12:00:00 AM EST ORAL completed MEDENT ([facility]) 35 mg 07/22/2020 12:00:00 AM [...] DAILY DOSE = 4 TABLETS SOLD: 07/21/2020 [facility] 5-325 mg 07/21/2020 12:00:00 AM EST [...] MOUTH EVERY DAY AT BEDTIME SOLD: 07/16/2020 [facility] Alprazolam 0.5 MG Oral Tablet ALPRAZOLAM 07/14/2020 [...] DAILY DOSE = 2 TABLETS SOLD: 06/17/2020 [facility] Alprazolam 0.5 MG Oral Tablet ALPRAZOLAM 06/14/2020 12:00:00 AM EST ta blet 30 TAKE ONE TABLET BY MOUTH AT BEDTIME NEEDED MAXIMUM DAILY DOSE = 1 TABLETS TAKE ONE TABLET BY MOUTH AT BEDTIME NEEDED MAXIMUM DAILY DOSE = 1 TABLETS SOLD: 06/14/2020 [facility] Alprazolam 0.5 MG Oral Tablet ALPRAZOLAM [...] active Take 25 mg by mouth daily [facility] 50 mg 06/02/2020 12:00:00 AM EST tablet [...] 12:00:00 AM EST ORAL active Alejandro VIVAS ([facility]) 25 mg 05/25/2020 12:00:00 AM EST tablet 30 TAKE ONE TABLET BY MOUTH EVERY DAY TAKE ONE TABLET BY MOUTH EVERY DAY SOLD: 07/21/2020 [facility] 25 mg 05/25/2020 12:00:00 AM EST tablet 30 TAKE ONE TABLET BY MOUTH EVERY DAY TAKE ONE TABLET BY MOUTH EVERY DAY SOLD: 06/22/2020 [facility] 25 mg 05/25/2020 12:00:00 AM EST tablet 30 TAKE ONE TABLET BY MOUTH EVERY DAY TAKE ONE TABLET BY MOUTH EVERY DAY SOLD: 05/25/2020 [facility] Famotidine 40 MG Oral Tablet famotidine (PEPCID) 40 MG tablet famotidine (PEPCID) 40 MG tablet 05/23/2020 12:00:00 AM EST 40 mg Oral active Take 40 mg by mouth daily [facility] 50 mg 05/20/2020 12:00:00 AM EST tablet [...] Triamcinolone Aceton zita 0.1 % eCW1 ([facility]) Triamcinolone Acetonide 0.001 MG/MG Topi reg[facility] Ointment Triamcinolone Acetonide 0.1 % Triamcinolone Acetonide 0.1 % 05/19/2020 12:00:00 AM EST 1.0 {application} active Triamcinolone Aceton zita 0.1 % eCW1 ([facility]) Triamcinolone Acetonide 0.001 MG/MG Topi regina Ointment Triamcinolone Acetonide 0.1 % Triamcinolone Acetonide 0.1 % 05/19/2020 12:00:00 AM EST 1.0 {application} active Triamcinolone Aceton zita 0.1 % eCW1 ([facility]) Triamcinolone Acetonide 0.001 MG/MG Topi regina Ointment Triamcinolone Acetonide 0.1 % Triamcinolone Acetonide 0.1 % 05/19/2020 12:00:00 AM EST 1.0 {application} active Triamcinolone Aceton zita 0.1 % eCW1 ([facility]) Triamcinolone Acetonide 0.001 MG/MG Topi regina Ointment Triamcinolone Acetonide 0.1 % Triamcinolone Acetonide 0.1 % 05/19/2020 12:00:00 AM EST 1.0 {application} active Triamcinolone Aceton zita 0.1 % eCW1 ([facility]) 1 mg 05/19/2020 12:00:00 AM EST tablet 90 TAKE ONE TABLET BY MOUTH EVERY DAY AT BEDTIME MAXIMUM DAILY DOSE = 1 TAKE ONE TABLET BY MOUTH EVERY DAY AT [facility] MAXIMUM DAILY DOSE = 1 SOLD: 05/19/2020 [facility] Triamcinolone Acetonide 0.001 MG/MG Topi regina Ointment Triamcinolone Acetonide 0.1 % Triamcinolone Acetonide 0.1 % 05/19/2020 12:00:00 AM EST 1.0 {application} active Triamcinolone Aceton zita 0.1 % eCW1 ([facility]) Triamcinolone Acetonide 0.001 MG/MG Topi regina Ointment Triamcinolone Acetonide 0.1 % Triamcinolone Acetonide 0.1 % 05/19/2020 12:00:00 AM EST 1.0 {application} active Triamcinolone Aceton zita 0.1 % eCW1 ([facility]) Triamcinolone Acetonide 0.001 MG/MG Topi reg[facility] Ointment Triamcinolone Acetonide 0.1 % Triamcinolone Acetonide 0.1 % 05/19/2020 12:00:00 AM EST 1.0 {application} active Triamcinolone Aceton zita 0.1 % eCW1 ([facility]) Triamcinolone Acetonide 0.001 MG/MG Topi regina Ointment Triamcinolone Acetonide 0.1 % Triamcinolone Acetonide 0.1 % 05/12/2020 12:00:00 AM EST 1.0 {application} active Triamcinolone Aceton zita 0.1 % eCW1 ([facility]) Triamcinolone Acetonide 0.001 MG/MG Topi reg[facility] Ointment Triamcinolone Acetonide 0.1 % Triamcinolone Acetonide 0.1 % 05/12/2020 12:00:00 AM EST 1.0 {application} active Triamcinolone Aceton zita 0.1 % eCW1 ([facility]) 0.1 % 05/12/2020 12:00:00 AM [...] Triamcinolone Aceton zita 0.1 % eCW1 ([facility]) Triamcinolone Acetonide 0.001 MG/MG Topi regina Ointment Triamcinolone Acetonide 0.1 % Triamcinolone Acetonide 0.1 % 05/12/2020 12:00:00 AM EST 1.0 {application} active Triamcinolone Aceton zita 0.1 % eCW1 ([facility]) Triamcinolone Acetonide 0.001 MG/MG Topi regina Ointment Triamcinolone Acetonide 0.1 % Triamcinolone Acetonide 0.1 % 05/12/2020 12:00:00 AM EST 1.0 {application} active Triamcinolone Aceton zita 0.1 % eCW1 ([facility]) Triamcinolone Acetonide 0.001 MG/MG Topi regina Ointment Triamcinolone Acetonide 0.1 % Triamcinolone Acetonide 0.1 % 05/12/2020 12:00:00 AM EST 1.0 {application} active Triamcinolone Aceton zita 0.1 % eCW1 ([facility]) Triamcinolone Acetonide 0.001 MG/MG Topi regina Ointment Triamcinolone Acetonide 0.1 % Triamcinolone Acetonide 0.1 % 05/12/2020 12:00:00 AM EST 1.0 {application} active Triamcinolone Aceton zita 0.1 % eCW1 ([facility]) 50 mg 05/12/2020 12:00:00 AM [...] Triamcinolone Aceton zita 0.1 % eCW1 ([facility]) Triamcinolone Acetonide 0.001 MG/MG Topi regina Ointment Triamcinolone Acetonide 0.1 % Triamcinolone Acetonide 0.1 % 05/12/2020 12:00:00 AM EST 1.0 {application} active Triamcinolone Aceton zita 0.1 % eCW1 ([facility]) Triamcinolone Acetonide 0.001 MG/MG Topi regina Ointment Triamcinolone Acetonide 0.1 % Triamcinolone Acetonide 0.1 % 05/12/2020 12:00:00 AM EST 1.0 {application} active Triamcinolone Aceton zita 0.1 % eCW1 ([facility]) 25 mg 05/11/2020 12:00:00 AM EST tablet 90 TAKE ONE TABLET BY MOUTH AT BEDTIME TAKE ONE TABLET BY MOUTH AT BEDTIME SOLD: 05/11/2020 [facility] Alprazolam 0.5 MG Oral Tablet ALPRAZOLAM 05/09/2020 [...] A DAY AFTER 7 DAYS SOLD: 07/03/2020 [facility] Hydroxychloroquine Sulfate 200 MG Oral Tablet HYDROXYCHLOROQ UINE SULFATE 05/08/2020 12:00:00 AM EST tablet 60 TAKE ONE TABLET BY MOUTH EVERY DAY, THEN INCREASE TO TWO TIMES A DAY AFTER 7 DAYS TAKE ONE TABLET BY MOUTH EVERY DAY, THEN INCREASE TO TWO TIMES A DAY AFTER 7 DAYS SOLD: 06/05/2020 [facility] Hydroxychloroquine Sulfate 200 MG Oral Tablet [...] A DAY AFTER 7 DAYS SOLD: 07/31/2020 [facility] 25 mg 05/08/2020 [...] 04/08/2020 12:00:00 AM EDT ORAL active MED[facility] ([facility]) 300-60 mg 04/07/2020 12:00:00 AM EDT tablet [...] MAXIMUM DAILY DOSE = 4 SOLD: 02/03/2020 [facility] Famotidine 40 MG Oral Tablet FAMOTIDINE [...] 12/02/2019 12:00:00 AM EDT ORAL active [facility] ([facility]) Acetaminophen 325 MG / Hydrocodone Bitartrate 5 MG Ora l Tablet Hydrocodone Bitartrate/Acetaminophen 11/27/2019 12:00:00 AM EDT ORAL active MED[facility] ([facility]) 5-325 mg [...] 11/06/2019 12:00:00 AM EDT ORAL completed [facility] ([facility]) 25 mg [...] 11/06/2019 12:00:00 AM EDT ORAL completed [facility] ([facility] tramadol hydrochloride 50 MG Oral [...] Prednisone 10/23/2019 12:00:00 AM EDT completed MEDENT ([facility]) Losartan Potassium 25 MG Oral Tablet [...] MOUTH ONCE DAILY SOLD: 04/10/2020 [facility] Alprazolam 0.5 MG Oral Tablet [...] EVERY DAY SOLD: 06/14/2020 [facility] Hydroxychloroquine Sulfate 200 MG [...] A DAY AFTER 7 DAYS SOLD: 11/15/2019 [facility] 40 mg 09/24/2019 12:00:00 AM [...] Sulfate 09/23/2019 12:00:00 AM EDT active MEDENT ([facility]) atorvastatin 40 MG Oral Tablet Atorvastatin Calcium 09/23/2019 1 2:00:00 AM EDT ORAL active [facility] ( [facility]) Alprazolam 0.5 MG Oral Tablet ALPRAZOLAM 09/18/2019 12:00:00 AM EDT ta blet 30 TAKE ONE TABLET BY MOUTH AT BEDTIME NEEDED MAXIMUM DAILY DOSE = 1 TAKE ONE TABLET BY MOUTH AT BEDTIME NEEDED MAXIMUM DAILY DOSE = 1 SOLD: 09/18/2019 [facility] Amlodipine 5 MG Oral Tablet Amlodipine Besylate 09/17/2019 12:00:00 A M EDT ORAL active MEDENT ([facility]) 5 mg 09/17/2019 12:00:00 AM [...] e Take 20 mg by mouth daily [facility] 20 mg 07/24/2019 12:00:00 AM EST tablet [...] TABLET BY MOUTH EVERY DAY SOLD: 11/06/2019 [facility] 40 mg 07/23/2019 12:00:00 AM EST [...] by mouth 2 (two) times a day [facility] Alprazolam 0.5 MG Oral Tablet ALPRAZOLAM 06/27/2019 [...] MOUTH AT BEDTIME SOLD: 08/05/2019 [facility] 300 mg 06/13/2019 12:00:00 AM EST capsule 180 TAKE ONE CAPSULE BY MOUTH TWICE A DAY TAKE ONE CAPSULE BY MOUTH TWICE A DAY SOLD: 09/08/2019 [facility] 25 mg 06/13/2019 [...] BEDTIME SOLD: 09/01/2019 [facility] 25 mg 05/01/2019 12:00:00 AM [...] MOUTH EVERY DAY SOLD: 09/10/2019 [facility] 324 mg (37.5 mg iron) [...] by mouth 2 (two) times a day [facility] Insurance Providers Payer name Policy type / Coverage type Policy ID Covered republican ID Covered republican's relationship to thompson Policy Thompson Plan Information IRAQI PROGRESSIVE [id number] SP [id number] MEDICARE [id number] SP [id number] MEDICARE C [id number] S [id number] AETNA MEDICARE [id number] SP [id number] [facility] [id number] SP [id number] [place] [id number] SP [id number] MEDICARE [id number] SP [id number] MEDICAID [id number] MEDICARE [id number] MEDICARE [id number] Jewell [id number] Y64 HUMANA GOLD O [id number] S [id number] MEDICAID M [id number] S [id number] HUMANA GOLD [id number] SP [id number] [place] [id number] SP [id number] MEDICAID [id number] SP [id number] MEDICARE [id number] Jewell [id number] Y64 MEDICARE [id number] SP [id number] MEDICAID [id number] SP [id number] 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 [id number] Self [id number] Medicaid Medigap Part B [id number] Self [id number] Medicare Natl Govt Servic Medicare Primary [id number] Self [id number] MEDICAID [id number] SP [id number] MEDICAID [id number] SP [id number] 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 [id number] Self [id number] Medicaid Medigap Part B [id number] Self [id number] Medicare Natl Govt Servic Medicare Primary [id number] Self [id number] 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 [id number] Self [id number] Medicaid Medigap Part B [id number] Self [id number] 63C Medicare Natl Govt Servic Medicare Primary [id number] Self [id number] Medicaid Medigap Part B [id number] Self [id number] 63C 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 [id number] Self [id number] Medicare Natl Govt Servic Medicare Primary [id number] Self [id number] Medicaid Medigap Part B [id number] Self [id number] 63C 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 [id number] Self [id number] Medicare Natl Govt Servic Medicare Primary [id number] Self [id number] Medicaid Medigap Part B [id number] Self [id number] 63C 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 [id number] Self [id number] Medicare Natl Govt Servic Medicare Primary [id number] Self [id number] Medicaid Medigap Part B [id number] Self [id number] 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 [id number] Self [id number] Medicare Natl Govt Servic Medicare Primary [id number] Self [id number] MEDICAID UNAVAILABLE UNA[place]ILA BLE Medicare [facility] Medicare Primary [id number] Self [id number] Medicaid Medigap Part B [id number] Self [id number] 63C 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 [id number] Self [id number] Medicare Natl Govt Servic Medicare Primary [id number] Self [id number] MEDICAID [id number] Jewell [id number] MEDICARE [id number] Jewell [id number] A Medicaid Medigap Part B [id number] Self [id number] 63C 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 [id number] Self [id number] Medicare Natl Govt Servic Medicare Primary [id number] Self [id number] Medicaid Medigap Part B [id number] Self [id number] 63C 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 [id number] Self [id number] Medicare Natl Govt Servic Medicare Primary [id number] Self [id number] Medicaid Medigap Part B [id number] Self [id number] 63C 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 [id number] Self [id number] Medicare Natl Govt Servic Medicare Primary [id number] Self [id number] MEDICARE PI PI Medicaid Medigap Part B [id number] Self [id number] 63C 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 [id number] Self [id number] Medicare Natl Govt Servic Medicare Primary [id number] Self [id number] Medicaid Medigap Part B [id number] Self [id number] 63C 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 [id number] Self [id number] Medicare Natl Govt Servic Medicare Primary [id number] Self [id number] Medicaid Medigap Part B [id number] Self [id number] 63C 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 [id number] Self [id number] Medicare Natl Govt Servic Medicare Primary [id number] Self [id number] MEDICARE C [id number] S [id number] A Medicaid Medigap Part B [id number] Self [id number] 63C 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 [id number] Self [id number] Medicare Natl Govt Servic Medicare Primary [id number] Self [id number] Medicaid Medigap Part B [id number] Self [id number] 63C 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 [id number] Self [id number] Medicare Natl Govt Servic Medicare Primary [id number] Self [id number] MEDICAID [id number] SP [id number] Medicaid Medigap Part B [id number] Self [id number] 63C 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 [id number] Self [id number] Medicare Natl Govt Servic Medicare Primary [id number] Self [id number] Medicaid Medigap Part B [id number] Self [id number] 63C 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 [id number] Self [id number] Medicare Natl Govt Servic Medicare Primary [id number] Self [id number] MEDICARE [id number] SP [id number] [place] Part B Self Medicare [place] Gov't Servi Medicare Primary Self Medicaid Medigap Part B 1 1 Self 1 1 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 Self Medicare [place] Primary Self [place] B Self [place] Primary Self State Ins [facility] () Workers 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 Self OTHER WORKERS COMPENSATION [id number] SP [id number] A Problems, Conditions, and Diagnoses Code Display Name Description Problem Type Effective Dates Data Source(s) I25.5 Ischemic cardiomyopathy Ischemic cardiomyopathy 828809 2020 12:00:00 AM EST [facility] M47.816 [id number] Lumbar spondylosis Problem 06/04/2020 12:00: 00 AM EST eCW1 ([facility]) I77.6 86173006 Vasculitis Problem 06/04/2020 12:00:00 AM ES T eCW1 ([facility]) M79.7 [id number] Fibromyalgia Problem 01/21/2020 12:00:00 AM EDT eCW1 ([facility]) 51502718 Neck pain Neck pain Problem 11/06/2019 12:00:00 AM ED T MEDENT ([facility]) [id number] 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 Problem 11/06/2019 12:00:00 AM EDT [facility] ([facility]) 67413247 Abnormal gait Abnormal gait Problem 10/30/2019 12:00:00 AM EDT [facility] ([facility]) [id number] Nervous system symptoms Nervous system symptoms Proble m 10/30/2019 12:00:00 AM EDT [facility] ([facility]) [id number] CVA - cerebrovascular accident due to ce rebral artery occlusion CVA - cerebrovascular accident due to cerebral artery occlusion Problem 06/18/2019 12:00:00 AM EST MED[facility] ([facility]) I10 Essential (primary) hypertension Essential (primary) h ypertension Diagnosis 06/12/2020 01:26:55 PM EST [facility] E78.5 Hyperlipidemia, unspecified Hyperlipidemia, unspecifie d Diagnosis 06/12/2020 01:26:55 PM EST [facility] N18.9 Chronic kidney disease, unspecified Chronic kidn ey disease, unspecified Diagnosis 06/12/2020 01:26:55 PM EST [facility] Z72.0 Tobacco use Tobacco use Diagnosis 06/12/2020 01:26:55 PM [facility] I25.83 Coronary atherosclerosis due to lipid ri ch plaque Coronary atherosclerosis due to lipid ri Diagnosis 06/12/2020 01:26:55 PM [facility] I25.10 Atherosclerotic heart diseas e of [place] coronary artery without angina pectoris Atherosclerotic heart disease of [place] Diagnosis 06/12/2020 01:26:55 PM [facility] F41.9 Anxiety disorder, unspecified Anxiety disorder, unspec ified Diagnosis 10/23/2019 12:50:14 PM EDT [facility] D64.9 Anemia, unspecified Anemia, unspecified Diagnosis 0 10/23/2019 12:50:14 PM EDT [facility] Z86.73 Personal history of transien t ischemic attack (TIA), and cerebral infarction without residual deficits Personal history of transient ischemic a Diagnosis 10/23/2019 12:50:14 PM EDT [facility] M79.606 Pain in leg, unspecified Pain in leg, unspecified Diag nosis 07/10/2019 12:22:38 PM [facility] Surgeries/Procedures Procedure Description Date Indications Data Source(s) X-Ray Spine Thoracolumbar Ap & Lateral 2 Views 021 12:00:00 AM EST MEDENT ([facility]) RADEX SPINE LUMBOSACRAL 2/3 VIEWS 06/18/2020 12:00:00 AM EST MED[facility] ([facility]) Needle electromyography, each extremity, with related paraspinal areas, when performed, done with nerve conduction, amplitude and latency/velocity study; complete, five or more muscles studied, innervated by three or more nerves or four or more spinal levels (list separately in addition to the code for primary procedure). 06/15/2020 12:00:00 AM EST MEDEN T ([facility] ) Needle electromyography, each extremity, with related paraspinal areas, when performed, done with nerve conduction, amplitude and latency/velocity study; complete, five or more muscles studied, innervated by three or more nerves or four or more spinal levels (list separately in addition to the code for primary procedure). 06/15/2020 12:00:00 AM EST MEDEN T ([facility] ) Nerve Conduction 11-12 Studies 06/15/2020 12:00:00 AM EST MEDENT ([facility] ) ECG ROUTINE ECG W/LEAST 12 LDS W/I&R POCT AMB EKG Routine 06/12/2020 5:31 PM EST Coronary artery disease due to lipid rich plaque Essential hypertension 06/12/2020 10:31:00 PM EST Essential hypertensionCoronary artery disease due to lipid rich plaque [facility] Essential hypertension Coronary artery disease due to lipid tristian h plaque HEPATIC FUNCTION PANEL HEPATIC FUNCTION PANEL Routine 05/26/2020 05/26/2020 12:00:00 AM EST [facility] BASIC METABOLIC PANEL CALCIUM TOTAL BASIC METABOLIC PANEL Routine 05/26/2020 05/26/2020 12:00:00 AM EST [facility] BLOOD COUNT COMPLETE AUTO&AUTO DIFRNTL WBC COUNT CBC AND DIFFER ENTIAL Routine 04/21/2020 04/21/2020 12:00:00 AM EDT [facility] Diabetic Retinal Eye Exam 02/25/2020 12:00:00 AM EDT MED[facility] ([facility]) RADEX SPINE LUMBOSACRAL 2/3 VIEWS 01/28/2020 12:00:00 AM EDT [facility] ([facility]) RADEX SPINE LUMBOSACRAL 2/3 VIEWS 12/16/2019 12:00:00 AM EDT [facility] ([facility] CLTX VRT BDY FX W/O MANJ REQ&W/CSTING/BRACING 12/02/19 12:00:00 AM EDT [facility] ([facility] ) MRI BRAIN BRAIN STEM W/O CONTRAST MATERIAL 11/02/2019 12:00:00 AM EDT [facility] ([facility] ) MRI BRAIN BRAIN STEM W/O CONTRAST MATERIAL 11/02/2019 12:00:00 AM EDT [facility] ([facility] ) MRI SPINAL CANAL CERVICAL W/O CONTRAST MATRL 0 12:00:00 AM EDT [facility] ([facility] ) MRI SPINAL CANAL CERVICAL W/O CONTRAST MATRL 0 12:00:00 AM EDT [facility] ([facility] ) RADEX HAND MINIMUM 3 VIEWS 08/23/2019 12:00:00 AM EST [facility] ([facility] ) RADEX HAND MINIMUM 3 VIEWS 07/25/2019 12:00:00 AM EST [facility] ([facility] ) RADEX HAND MINIMUM 3 VIEWS 07/11/2019 12:00:00 AM EST [facility] ([facility] ) APPLICATION CAST ELBOW FINGER SHORT ARM 07/04/2019 12: 00:00 AM EST [facility] ([facility] ) Results ID Date Data Source [id number] 08/01/2020 01:32:00 AM EST [facility] Name Value Range Interpretation Code Description Data Amber rce(s) Supporting Document(s) SARS coronavirus 2 RNA [Presence] in Res piratory specimen by JOSE with probe detection NEGATIVE [facility] This lab was ordered by [facility] a nd reported by [facility]. ID Date Data Source [id number] 07/24/2020 02:16:00 PM EST MED[facility] ([facility]) Name Value Range Interpretation Code Description Data Amber rce(s) Supporting Document(s) Laboratory test finding (navigational concept) 0.00 ng/mL 0.00-0.08 [facility] ([facility]) ID Date Data Source [id number] 07/24/2020 02:13:00 PM EST [facility] ([facility]) Name Value Range Interpretation Code Description Data Amber rce(s) Supporting Document(s) Laboratory test finding (navigational concept) 31.0 % 38.0-51.0 [facility] ([facility]) Laboratory test finding (navigational concept) 138 meq/L 136-145 [facility] ([facility]) Laboratory test finding (navigational concept) 97 mg/dL 70-105 [facility] ([facility]) Laboratory test finding (navigational concept) 4.4 mg/dL 4.5-5.3 [facility] ([facility]) Laboratory test finding (navigational concept) 4.0 meq/L 3.5-5.1 [facility] ([facility]) Laboratory test finding (navigational concept) 26.0 MM/L 23.0-27.0 [facility] ([facility]) Laboratory test finding (navigational concept) 11 mg/dL 8-26 [facility] ([facility]) Laboratory test finding (navigational concept) 105 meq/L 98-109 [facility] ([facility]) Laboratory test finding (navigational concept) 1.3 mg/dL 0.6-1.3 [facility] ([facility]) ID Date Data Source [id number] 07/24/2020 02:12:00 PM EST [facility] ([facility]) Name Value Range Interpretation Code Description Data Amber rce(s) Supporting Document(s) Lactate [Mass/volume] in Serum or Plasma 1.3 mmol/L 0.4-2.0 [facility] ([facility]) <content>note:<nlbl:demographic_changed> </content>
<content>Y/N query for Sepsis Lactate Rule: Y</content>
<content></content> ID Date Data Source [id number] 07/24/2020 02:12:00 PM EST [facility] ([facility]) Name Value Range Interpretation Code Description Data Amber rce(s) Supporting Document(s) White Blood Count 11.8 10 4.0-10.0 [facility] ([facility]) Hemoglobin 9.4 g/dL 12.0-15.5 [facility] Red Blood Count 3.46 10 4.00-5.40 [facility] ([facility]) Hematocrit 30.5 % 36.0-47.0 [facility] Mean Corpuscular Hemoglobin 27.2 pg 27.0-33.0 [place] [facility] ([facility]) Mean Corpuscular Volume 88.2 fl 80.0-96.0 [facility] ([facility]) Mean Corpuscular HGB Conc 30.8 g/dL 32.0-36.5 MEDE NT ([facility]) Platelet Count, Automated 445 10 150-450 MEDE NT ([facility]) Red Cell Distribution Width 15.6 % 11.5-14.5 [place] [facility] ([facility]) Neutrophils % 71.4 % 36.0-66.0 [facility] ([facility]) Eos % 4.4 % 0.0-3.0 [facility] [place] % 7.9 % 0.0-5.0 [facility] Lymph % 15.3 % 24.0-44.0 [facility] Immature Granulocyte % 0.5 % 0-3.0 [facility] ([facility]) Nucleated Red Blood Cell % 0.0 % 0-0 MED ENT ([facility]) Baso % 0.5 % 0.0-1.0 [facility] Lymph # 1.8 10 1.5-5.0 [facility] Neutrophils # 8.4 10 1.5-8.5 [facility] ([facility]) [place] # 0.9 10 0.0-0.8 [facility] Eos # 0.5 10 0.0-0.5 [facility] Baso # 0.1 10 0.0-0.2 [facility] ID Date Data Source [id number] 07/24/2020 02:11:00 PM EST [facility] ([facility]) Name Value Range Interpretation Code Description Data Amber rce(s) Supporting Document(s) Lipoprotein lipase [Enzymatic activity/volume] in Serum or Plasm a 48 U/L 73-393 [facility] ([facility]) <content>note:<nlbl:demographic_changed> </content>
<content></content> ID Date Data Source [id number] 07/24/2020 02:11:00 PM EST [facility] ([facility]) Name Value Range Interpretation Code Description Data Amber rce(s) Supporting Document(s) Ast/Sgot 9 U/L 7-37 [facility] ([facility] [place] Alt/SGPT 8 U/L 12-78 [facility] [place] Alkaline Phosphatase 93 U/L 45-117 [facility] ([facility]) Bilirubin,Total 0.3 mg/dL 0.2-1.0 [facility] ([facility]) Total Protein 6.8 GM/DL 6.4-8.2 [facility] ([facility]) Albumin 2.8 GM/DL 3.2-5.2 [facility] [place] Bilirubin,Direct 0.1 mg/dL 0.0-0.2 [facility] ([facility]) Albumin/Globulin Ratio 0.7 1.2-2.2 [facility] ([facility]) ID Date Data Source [id number] 07/24/2020 02:11:00 PM EST [facility] ([facility]) Name Value Range Interpretation Code Description Data Amber rce(s) Supporting Document(s) aPTT in Blood by Coagulation assay 31.0 s 24.2-38.5 [facility] ([facility]) ID Date Data Source [id number] 07/24/2020 02:11:00 PM EST [facility] ([facility]) Name Value Range Interpretation Code Description Data Amber rce(s) Supporting Document(s) Prothrombin Time 13.1 s 12.5-14.3 [facility] ([facility]) Inr 0.97 [facility] ([facility] [place] THERAPUTIC HUMAN INR VALUES INDICATIONS NORMAL RANGES PROPHYLAXIS/TREATMENT OF: VENOUS THROMBOSIS 2.0-3.0 PULMONARY EMBOLISM 2.0-3.0 PREVENTION OF SYSTEMIC EMBOLISM FROM: TISSUE HEART VALVES 2.0-3.0 ACUTE MYOCARDIAL INFARCTION 2.0-3.0 VALVULAR HEART DISEASE 2.0-3.0 ATRIAL FIBRILLATION 2.0-3.0 MECHANICAL VALVES(HIGH RISK) 2.5-3.5 RECURRENT MYOCARDIAL INFARCTION 2.5-3.5 ID Date Data Source [id number] 07/24/2020 02:00:00 PM EST [facility] ([facility]) Name Value Range Interpretation Code Description Data Amber rce(s) Supporting Document(s) Bedside Glucose 97 mg/dL 83-110 [facility] ([facility]) ID Date Data Source [id number] 07/20/2020 03:24:00 PM EST [facility] ([facility]) Name Value Range Interpretation Code Description Data Amber rce(s) Supporting Document(s) Influenza A Amplification Laboratory test result [facility] Negative results do not preclude influen za or RSV virus infection and should not be used as the sole basis for treatment or other patient management decisions. Influenza B Amplification Laboratory test result [facility] Negative results do not preclude influen za or RSV virus infection and should not be used as the sole basis for treatment or other patient management decisions. Laboratory test finding (navigational concept) Laboratory test result [facility] ([facility]) A false negative result may occur [...] pathogens. DISCLAIMER: Testing was performed using the [employer] SARS-CoV-2 test. This test was developed and its performance characteristics determined by [employer]. This test has not been FDA cleared [...] revoked sooner. RSV Amplification Laboratory test result [facility] ([facility]) Negative results do not preclude influen za or RSV virus infection and should not be used as the sole basis for treatment or other patient management decisions. ID Date Data Source [id number] 07/20/2020 03:24:00 PM EST [facility] Name Value Range Interpretation Code Description Data Amber rce(s) Supporting Document(s) SARS coronavirus 2 RNA [Presence] in Res piratory specimen by JOSE with probe detection NEGATIVE [facility] This lab was ordered by [facility] a nd reported by [facility]. ID Date Data Source [id number] 07/10/2020 03:17:00 PM EST [facility] ([facility]) Name Value Range Interpretation Code Description Data Amber rce(s) Supporting Document(s) Protein [Mass/volume] in Urine 198.0 mg/dL 0.0-12.0 [facility] ([facility]) <content>note:<nlbl:demographic_changed> </content>
<content></content> Creatinine [Mass/volume] in Urine 341.0 mg/dL [facility] ([facility]) <content>note:<nlbl:demographic_changed> </content>
<content></content> ID Date Data Source [id number] 07/10/2020 03:14:00 PM EST [facility] ([facility]) Name Value Range Interpretation Code Description Data Amber rce(s) Supporting Document(s) Complement C3 [Mass/volume] in Serum or Plasma 139 mg/dL 90-180 [facility] ([facility]) <content>note:<nlbl:demographic_changed> </content>
<content></content> C reactive protein [Mass/volume] in Serum or Plasma by High sensitivity method 2.83 mg/dL 0.00-0.30 [facility] ([facility] ) <content>note:<nlbl:demographic_changed> </content>
<content></content> Complement C4 [Mass/volume] in Serum or Plasma 29 mg/dL 10-40 [facility] ([facility]) <content>note:<nlbl:demographic_changed> </content>
<content></content> ID Date Data Source [id number] 07/10/2020 03:14:00 PM EST [facility] ([facility]) Name Value Range Interpretation Code Description Data Amber rce(s) Supporting Document(s) Blood Urea Nitrogen 15 mg/dL 7-18 [facility] ([facility]) Creatinine For GFR 1.55 mg/dL 0.55-1.30 [facility] ([facility]) Glucose, Fasting 110 mg/dL 70-100 [facility] ([facility]) Glomerular Filtration Rate 34.8 MED ENT ([facility]) <content>Units are mL/min/1.73 m2</content>
<content></content>
<content>Chronic Kidney Disease Staging per NKF:</content>
<content></content>
<content>Stage I & II GFR >=60 Normal to Mildly Decreased</content>
<content>Stage III GFR 30- 59 Moderately Decreased</content>
<content>Stage IV GFR 15-29 Severely Decreased</content>
<content>Stage V GFR <15 Very Little GFR Left</content>
<content>ESRD GFR <15 on ARTIFICIAL CANDY MAKER</content>
<content></content> Sodium Level 138 meq/L 136-145 [facility] ([facility]) Potassium Serum 4.9 meq/L 3.5-5.1 [facility] ([facility]) Chloride Level 110 meq/L 98-107 [facility] ([facility]) Anion Gap 4 meq/L 8-16 [facility] Carbon Dioxide Level 24 meq/L 21-32 [facility] ([facility]) Alt/SGPT 10 U/L 12-78 [facility] Calcium Level 8.5 mg/dL 8.8-10.2 [facility] ([facility]) Ast/Sgot 5 U/L 7-37 [facility] Bilirubin,Total 0.2 mg/dL 0.2-1.0 [facility] ([facility]) Total Protein 6.7 GM/DL 6.4-8.2 [facility] ([facility]) Alkaline Phosphatase 92 U/L 45-117 [facility] ([facility]) Albumin 2.7 GM/DL 3.2-5.2 [facility] Albumin/Globulin Ratio 0.7 1.2-2.2 [facility] ([facility]) ID Date Data Source [id number] 07/10/2020 03:14:00 PM EST [facility] ([facility]) Name Value Range Interpretation Code Description Data Amber rce(s) Supporting Document(s) Erythrocyte sedimentation rate by Westergren method 79 mm/hr 0-30 [facility] ([facility]) ID Date Data Source [id number] 07/10/2020 03:14:00 PM EST [facility] ([facility]) Name Value Range Interpretation Code Description Data Amber rce(s) Supporting Document(s) White Blood Count 11.3 10 4.0-10.0 [facility] ([facility]) Hemoglobin 9.7 g/dL 12.0-15.5 [facility] ([facility]) Red Blood Count 3.54 10 4.00-5.40 [facility] ([facility]) Hematocrit 32.0 % 36.0-47.0 [facility] ([facility]) Mean Corpuscular Volume 90.4 fl 80.0-96.0 [facility] ([facility]) Mean Corpuscular Hemoglobin 27.4 pg 27.0-33.0 [facility] ([facility]) Red Cell Distribution Width 16.1 % 11.5-14.5 [facility] ([facility]) Mean Corpuscular HGB Conc 30.3 g/dL 32.0-36.5 MEDE NT ([facility]) Platelet Count, Automated 450 10 150-450 MEDE NT ([facility]) Lymph % 18.6 % 24.0-44.0 [facility] Neutrophils % 61.2 % 36.0-66.0 [facility] ([facility]) [place] % 9.1 % 0.0-5.0 [facility] Immature Granulocyte % 0.4 % 0-3.0 [facility] ([facility]) Eos % 10.2 % 0.0-3.0 [facility] Baso % 0.5 % 0.0-1.0 [facility] Lymph # 2.1 10 1.5-5.0 [facility]) Neutrophils # 6.9 10 1.5-8.5 [facility]) Nucleated Red Blood Cell % 0.0 % 0-0 MED ENT ([facility]) [place] # 1.0 10 0.0-0.8 [facility] Baso # 0.1 10 0.0-0.2 [facility] Eos # 1.2 10 0.0-0.5 [facility] ID Date Data Source RHEUMATOID FACTOR QUANT 06/04/2020 12:00:00 AM EST eCW1 ([facility]) Name Value Range Interpretation Code Description Data Amber rce(s) Supporting Document(s) 67.1 <15.0 eCW1 ([facility]) ID Date Data Source IgG SUBCLASS 4 06/04/2020 12:00:00 AM EST eCW1 ([facility]) Name Value Range Interpretation Code Description Data Amber rce(s) Supporting Document(s) 237 2-96 eCW1 ([facility]) ID Date Data Source CREATININE,RANDOM URINE 06/04/2020 12:00:00 AM EST eCW1 ([facility]) Name Value Range Interpretation Code Description Data Amber rce(s) Supporting Document(s) 267.0 eCW1 ([facility]) ID Date Data Source LAKESHA TITER & PATTERN 06/04/2020 12:00:00 AM EST eCW1 ([facility]) Name Value Range Interpretation Code Description Data Amber rce(s) Supporting Document(s) Negative . eCW1 ([facility]) ID Date Data Source ANTI-SJOGRENS A&B ANTIBODIES 06/04/2020 12:00:00 AM EST eCW1 ([facility]) Name Value Range Interpretation Code Description Data Amber rce(s) Supporting Document(s) <0.2 0.0-0.9 eCW1 ([facility]) <0.2 0.0-0.9 eCW1 ([facility]) ID Date Data Source TOTAL PROTEIN,RANDOM URINE 06/04/2020 12:00:00 AM EST eCW1 ( [facility]) Name Value Range Interpretation Code Description Data Amber rce(s) Supporting Document(s) 147.1 0.0-12.0 eCW1 ([facility]) ID Date Data Source HEPATITIS C ANTIBODY INDEX 06/04/2020 12:00:00 AM EST eCW1 ( [facility]) Name Value Range Interpretation Code Description Data Amber rce(s) Supporting Document(s) 0.0 <0.8 eCW1 ([facility]) ID Date Data Source Lupus Anticoagulant with RFX Send Out ONLY 06/04/2020 12:00: 00 AM EST eCW1 ([facility]) Name Value Range Interpretation Code Description Data Amber rce(s) Supporting Document(s) 42.9 0.0-47.0 eCW1 ([facility]) 39.1 0.0-51.9 eCW1 ([facility]) Comment: . eCW1 ([facility]) ID Date Data Source CRYOGLOBULINS 06/04/2020 12:00:00 AM EST eCW1 ([facility]) Name Value Range Interpretation Code Description Data Amber rce(s) Supporting Document(s) NEGATIVE NEGATIVE eCW1 ([facility]) ID Date Data Source ANTI-CARDIOLIPIN ANTIBODIES 06/04/2020 12:00:00 AM EST eCW1 ([facility]) Name Value Range Interpretation Code Description Data Amber rce(s) Supporting Document(s) <9 0-12 eCW1 ([facility]) <9 0-11 eCW1 ([facility]) <9 0-14 eCW1 ([facility]) ID Date Data Source HEPATITIS B CORE ANTIBODY IGG 06/04/2020 12:00:00 AM EST eCW 1 ([facility]) Name Value Range Interpretation Code Description Data Amber rce(s) Supporting Document(s) Negative Negative eCW1 ([facility]) ID Date Data Source ERYTHROCYTE SEDIMENTATION RATE 06/04/2020 12:00:00 AM EST eC W1 ([facility]) Name Value Range Interpretation Code Description Data Amber rce(s) Supporting Document(s) 54 0-30 eCW1 ([facility]) ID Date Data Source HEPATITIS B SURFACE ANTIGEN 06/04/2020 12:00:00 AM EST eCW1 ([facility]) Name Value Range Interpretation Code Description Data Amber rce(s) Supporting Document(s) NEGATIVE NEGATIVE eCW1 ([facility]) ID Date Data Source CPK CREATINE PHOSPHOKINASE 06/04/2020 12:00:00 AM EST eCW1 ( [facility]) Name Value Range Interpretation Code Description Data Amber rce(s) Supporting Document(s) 42 26-192 eCW1 ([facility]) ID Date Data Source COMPLEMENT C4 06/04/2020 12:00:00 AM EST eCW1 ([facility]) Name Value Range Interpretation Code Description Data Amber rce(s) Supporting Document(s) 32 10-40 eCW1 ([facility]) ID Date Data Source COMPLEMENT C3 06/04/2020 12:00:00 AM EST eCW1 ([facility]) Name Value Range Interpretation Code Description Data Amber rce(s) Supporting Document(s) 156 90-180 eCW1 ([facility]) ID Date Data Source BETA-2 GLYCOPROTEIN 1 LEANN ROBERT 06/04/2020 12:00:00 AM EST eCW 1 ([facility]) Name Value Range Interpretation Code Description Data Amber rce(s) Supporting Document(s) <9 0-25 eCW1 ([facility]) <9 0-32 eCW1 ([facility]) <9 0-20 eCW1 ([facility]) ID Date Data Source [id number] 05/26/2020 01:48:00 PM EST MEDENT ([facility]) Name Value Range Interpretation Code Description Data Amber rce(s) Supporting Document(s) Erythrocytes [#/volume] in Blood by Automated count 3.79 x10*6/UL 4.2 0-6.30 MED[facility] ([facility]) Leukocytes [#/volume] in Blood by Automated count 11.9 x10*3/UL 4.1-1 0.9 [facility] ([facility]) Hemoglobin [Mass/volume] in Blood 10.7 g/dL 12.0-18.0 [facility] ([facility]) Hematocrit [Volume Fraction] of Blood by Automated count 32.1 % 3 7.0-51.0 [facility] ([facility]) MCV 84.7 fL 80.0-97.0 [facility] MCH 28.4 pg 26.0-32.0 [facility] Platelets [#/volume] in Blood by Automated count 560 x10*3/UL 140-440 [facility] ([facility]) Erythrocyte distribution width [Ratio] by Automated count 16.2 % 11.6-13.7 [facility] ([facility]) MCHC 33.5 g/dL 31.0-38.0 [facility] Mid % 5.5 % 1.7-9.3 [facility] Lymph % 17.9 % 10.0-58.5 [facility]) MPV 7.6 FL 7.8-11.0 [facility]) Mid # 0.7 x10*3/UL 0.1-0.6 [facility] ([facility]) Neut % 76.6 % 37.0-92.0 [facility] Lymph # 2.1 x10*3/UL 0.6-4.1 [facility] ([facility]) Neut # 9.1 x10*3/UL 2.0-7.8 [facility] ([facility]) ID Date Data Source [id number] 05/26/2020 01:48:00 PM EST MEDENT ([facility]) Name Value Range Interpretation Code Description Data Amber rce(s) Supporting Document(s) Urea nitrogen [Mass/volume] in Serum or Plasma 12 mg/dL 7-18 [facility] ([facility]) Glucose [Mass/volume] in Serum or Plasma 117 mg/dL 74-99 [facility] ([facility]) 100-125 mg/dL PRE-DIABETES/FASTING >126 mg/dL DIABETES/FASTING Sodium [Moles/volume] in Serum or Plasma 142 meq/L 136-145 [facility] ([facility]) Creatinine 1.6 mg/dL 0.6-1.3 [facility] ([facility] Potassium [Moles/volume] in Serum or Plasma 3.5 meq/L 3.5-5.1 [facility] ([facility]) Chloride [Moles/volume] in Serum or Plasma 106 meq/L 98-107 [facility] ([facility]) Carbon dioxide, total [Moles/volume] in Serum or Plasma 25 meq/L 21 -32 [facility] ([facility]) Calcium [Mass/volume] in Serum or Plasma 8.6 mg/dL 8.5-10.1 [facility] ([facility]) Total Bilirubin 0.2 mg/dL 0.2-1.0 MED[facility] ([facility]) Aspartate aminotransferase [Enzymatic activity/volume] in Serum or Plasma 12 U/L 15-37 [facility] ([facility] ) Alkaline phosphatase isoenzyme [Units/volume] in Serum or Pl asma 92 mg/dL 46-116 [facility] ([facility]) Alanine aminotransferase [Enzymatic activity/volume] in Seru m or Plasma 13 U/L 12-78 [facility] ([facility]) Albumin [Mass/volume] in Serum or Plasma 3.2 g/dL 3.4-5.0 [facility] ([facility]) Glomerular filtration rate/1.73 sq M pre dicted among non-blacks [Volume Rate/Area] in Serum or Plasma by Creatinine-based formula (MDRD) 32 mL/min [facility] ([facility]) Proteinase 3 Ab [Units/volume] in Serum 7.2 g/dL 6.4-8.2 [facility] ([facility]) A/G Ratio 0.80 CALC 1.00-1.90 [facility] Glomerular filtration rate/1.73 sq M pre dicted among blacks [Volume Rate/Area] in Serum or Plasma by Creatinine-based formula (MDRD) 38 mL/min [facility] ([facility]) <content>CHRONIC KIDNEY DISEASE STAGING PER NKF</content>
<content></content>
<content>STAGE I & II GFR >= 60 NORMAL TO MILDLY DECREASED</content>
<content>STAGE III GFR 30-59 MODERATELY DECREASED</content>
<content>STAGE IV GFR 15-29 SEVERELY DECREASED</content>
<content>STAGE V GFR <15 VERY LITTLE GFR LEFT</content>
<content>ESRD GFR <15 ON ARTIFICIAL CANDY MAKER</content>
<content></content> ID Date Data Source [id number] 05/14/2020 12:00:00 AM EST [facility] Patient Name: MAHESH [id number] Date of : 1945[place] [address] Date of Exam: 05/14/2020#: Fax: [phone] EXAM: [...] cm at the L3 level on the [id number] series. The diameter appears to be about [...] by: Rusty Yates MD 05/14/2020 11:48 AM [facility] ( [facility] [place])VradV/jmcTfely you for referring MAHESH AQUINO to our office. Electronically Signed - VRROSS 05/14/20 12:29 Name Value Range Interpretation Code Description Data Amber rce(s) Supporting Document(s) ID Date Data Source [id number] 04/29/2020 02:50:00 PM EDT [facility] ([facility]) Name Value Range Interpretation Code Description Data Amber rce(s) Supporting Document(s) Carcinoembryonic Ag [Mass/volume] in Serum or Plasma 4.0 ng/mL [facility] ([facility]) THE CEA ASSAY IS PERFORMED ON THE [email or web address] BY CHEMILUMINESCENCE AND SHOULD NOT BE COMPARED INTERCHANGEABLY WITH OTHER METHODS. IT SHOULD NOT BE USED ALONE A SCREENING TEST OR DIAGNOSIS FOR THE PRESENCE OR ABSENCE OF MALIGNANT DISEASE. PREDICTIONS OF DISEASE RECURRENCE SHOULD NOT BE BASED SOLELY ON VALUES OBTAINED FROM SERIAL PATIENT SERUM VALUES. ID Date Data Source [id number] 04/29/2020 02:50:00 PM EDT [facility] ([facility]) Name Value Range Interpretation Code Description Data Amber rce(s) Supporting Document(s) Glucose, Fasting 86 mg/dL 70-100 [facility] ([facility]) Glomerular Filtration Rate 31.8 [facility] ([facility]) <content>Units are mL/min/1.73 m2</content>
<content></content>
<content>Chronic Kidney Disease Staging per NKF:</content>
<content></content>
<content>Stage I & II GFR >=60 Normal to Mildly Decreased</content>
<content>Stage III GFR 30- 59 Moderately Decreased</content>
<content>Stage IV GFR 15-29 Severely Decreased</content>
<content>Stage V GFR <15 Very Little GFR Left</content>
<content>ESRD GFR <15 on ARTIFICIAL CANDY MAKER</content>
<content></content> Blood Urea Nitrogen 14 mg/dL 7-18 [facility] ([facility]) Creatinine For GFR 1.68 mg/dL 0.55-1.30 [facility] Chloride Level 110 meq/L 98-107 [facility] ([facility]) Sodium Level 140 meq/L 136-145 [facility] ([facility]) Potassium Serum 4.1 meq/L 3.5-5.1 [facility] ([facility]) Anion Gap 5 meq/L 8-16 [facility] [place] Carbon Dioxide Level 25 meq/L 21-32 [facility] ([facility] Alt/SGPT 9 U/L 12-78 [facility] ([facility] [place] Calcium Level 8.3 mg/dL 8.8-10.2 [facility] ([facility]) Ast/Sgot 4 U/L 7-37 [facility] ([facility] [place] Alkaline Phosphatase 85 U/L 45-117 [facility] Bilirubin,Total 0.2 mg/dL 0.2-1.0 [facility] ([facility]) Total Protein 6.8 GM/DL 6.4-8.2 [facility] ([facility]) Albumin/Globulin Ratio 0.8 1.2-2.2 [facility] ([facility]) Albumin 3.0 GM/DL 3.2-5.2 [facility] ID Date Data Source [id number] 04/29/2020 02:50:00 PM EDT [facility] ([facility]) Name Value Range Interpretation Code Description Data Amber rce(s) Supporting Document(s) Red Blood Count 3.57 10 4.00-5.40 [facility] ([facility]) White Blood Count 12.1 10 4.0-10.0 [facility] ([facility]) Hemoglobin 9.5 g/dL 12.0-15.5 [facility] Mean Corpuscular Volume 88.8 fl 80.0-96.0 [facility] ([facility]) Mean Corpuscular Hemoglobin 26.6 pg 27.0-33.0 [facility] ([facility]) Hematocrit 31.7 % 36.0-47.0 [facility]) Mean Corpuscular HGB Conc 30.0 g/dL 32.0-36.5 [facility] ([facility]) Red Cell Distribution Width 16.7 % 11.5-14.5 [facility] ([facility]) Platelet Count, Automated 439 10 150-450 [facility] ([facility]) [place] % 7.9 % 0.0-5.0 [facility] Neutrophils % 62.7 % 36.0-66.0 [facility] ([facility]) Lymph % 22.4 % 24.0-44.0 [facility] Eos % 6.0 % 0.0-3.0 [facility] Baso % 0.7 % 0.0-1.0 [facility] Immature Granulocyte % 0.3 % 0-3.0 [facility] ([facility]) Neutrophils # 7.6 10 1.5-8.5 [facility] ([facility]) Nucleated Red Blood Cell % 0.0 % 0-0 [facility] ([facility]) Eos # 0.7 10 0.0-0.5 [facility]) [place] # 1.0 10 0.0-0.8 [facility]) Lymph # 2.7 10 1.5-5.0 [facility] Baso # 0.1 10 0.0-0.2 [facility]) ID Date Data Source [id number] 03/13/2020 11:32:00 AM EDT [facility] ([facility]) Name Value Range Interpretation Code Description Data Amber rce(s) Supporting Document(s) Erythrocyte sedimentation rate by Westergren method 41 mm/hr 0-15 [facility] ([facility]) ID Date Data Source [id number] 03/13/2020 11:31:00 AM EDT [facility] ([facility]) Name Value Range Interpretation Code Description Data Amber rce(s) Supporting Document(s) Phospholipid phosphorus [Mass/volume] in Serum 151 mg/dL 150-250 [facility] ([facility]) Results for this test are for research p urposes only by the assay's [employer]. The performance characteristics of this product have not been established. Results should not be used as a diagnostic procedure without confirmation of the diagnosis by another medically established diagnostic product or procedure. Performed at: [address] [id number] String Cutter: Trevin Hardin MD, Phone: [phone] ID Date Data Source [id number] 03/13/2020 11:31:00 AM EDT [facility] ([facility]) Name Value Range Interpretation Code Description Data Amber rce(s) Supporting Document(s) Phquh-0-Uaqkvdel % 5.2 % 2.9-4.9 [facility] ([facility] Albumin % 53.1 % 55.8-66.1 [facility]) Cfxyv-9-Tsvpuiwpc % 14.0 % 7.1-11.8 [facility] Kbzs-0-Jdwajluwu % 7.2 % 4.7-7.2 [facility] ([facility]) Wpho-8-Oslgstsuu % 6.6 % 3.2-6.5 [facility] ([facility]) Gamma Globulin % 13.9 % 11.1-18.8 [facility] Lbokv-6-Kgdhnhxje 0.97 GM/DL 0.42-0.99 [facility] ([facility]) Zakgm-6-Oyjlgpbvu 0.36 GM/DL 0.17-0.41 [facility] ([facility] Albumin 3.66 GM/DL 3.29-5.55 [facility] ([facility]) Boxk-5-Hlvpykwmk 0.50 GM/DL 0.28-0.60 [facility] ([facility]) Gamma Globulins 0.96 GM/DL 0.65-1.58 [facility] Wwtr-3-Jupvyjyet 0.46 GM/DL 0.19-0.55 [facility] ([facility] Total Protein 6.9 GM/DL 6.4-8.2 [facility] ([facility]) Spep Interpretation Laboratory test result [facility] ([facility]) NO M-SPIKE(S)NOTED. Laboratory test finding (navigational concept) Laboratory test result [facility] ([facility]) REV'D BY O ADJAPONG ID Date Data Source [id number] 03/13/2020 11:31:00 AM EDT [facility] Name Value Range Interpretation Code Description Data Amber rce(s) Supporting Document(s) Perinuclear AB Anca-P Laboratory test result [facility] ([facility]) The presence of positive fluorescence ex hibiting P-ANCA or C-ANCA patterns alone is not specific for the diagnosis of Carmen's Granulomatosis (WG) or microscopic polyangiitis. Decisions about treatment should not be based solely on ANCA IFA results. The International ANCA Group Consensus recommends follow up testing of positive sera with both NH- 3 and MPO-ANCA enzyme immunoassays. As m any as 5% serum samples are positive only by EIA. Ref. AM J Clin Pathol 1999;111:507-513. Anca-Atypical Laboratory test result [facility] ([facility]) The atypical pANCA pattern has been obse rved in a significant percentage of patients with ulcerative colitis, primary sclerosing cholangitis and autoimmune hepatitis. Cytoplasmic Neutrop AB Anca-C Laboratory test result [facility] ([facility]) ID Date Data Source [id number] 02/12/2020 12:00:00 AM EDT [facility] Patient Name: MAHESH [id number] [facility] 1945[facility] [place] [address] Date of Exam: 02/12/2020#: Fax: [phone] EXAM: MRI PELVIS WITHOUT CONTRASTCLINICAL INFORMATION: Bilateral hip pain.There are no prior pelvic MRI's for comparison.3T multiplanar MRI imaging of the pelvis was obtained using varioussequences.The femoral heads are spherical in shape and symmetric in appearance.There is zdml-px-gmloalwr rather symmetric appearing hip joint spacenarrowing. No abnormal focal chondral or subchondral signal is seen in thefemoral or acetabular component of either hip. There is no hip jointeffusion. There is wwty-dn-yrhilrdu T2 hypersignal seen in thetrochanteric tendinobursal region of each hip. The signal and morphologythroughout the imaged musculature is within normal limits. There is noevidence of a mass or mass effect. The sacroiliac joints are within normallimits. The cortical and marrow signal seen throughout the imaged osseouspelvis is within normal limits.IMPRESSION:1. Gkbr-ag-anjsovnx bilateral hip degenerative changes.2. Muvk-nz-egvxmyth bilateral trochanteric tendinobursitis.Accredited by the [employer] in MR.Jasson ANGELIC Snow/Zoran hernandez for referring MAHESH AQUINO to our office. Electronically Signed - JASSON BETTS DO 02/12/20 17:50 Name Value Range Interpretation Code Description Data Amber rce(s) Supporting Document(s) ID Date Data Source [id number] 02/01/2020 09:00:00 PM EDT [facility] ([facility]) Name Value Range Interpretation Code Description Data Amber rce(s) Supporting Document(s) Prothrombin Time 13.2 s 11.8-14.0 [facility] ([facility]) Partial Thromboplastin Time 30.2 s 25.0-38.4 [facility] ([facility]) Inr 0.99 [facility] THERAPUTIC HUMAN INR VALUES INDICATIONS NORMAL RANGES PROPHYLAXIS/TREATMENT OF: VENOUS THROMBOSIS 2.0-3.0 PULMONARY EMBOLISM 2.0-3.0 PREVENTION OF SYSTEMIC EMBOLISM FROM: TISSUE HEART VALVES 2.0-3.0 ACUTE MYOCARDIAL INFARCTION 2.0-3.0 VALVULAR HEART DISEASE 2.0-3.0 ATRIAL FIBRILLATION 2.0-3.0 MECHANICAL VALVES(HIGH RISK) 2.5-3.5 RECURRENT MYOCARDIAL INFARCTION 2.5-3.5 ID Date Data Source [id number] 02/01/2020 08:40:00 PM EDT [facility] ([facility]) Name Value Range Interpretation Code Description Data Amber rce(s) Supporting Document(s) White Blood Count 9.8 10 4.0-10.0 [facility] ([facility]) Hemoglobin 10.0 g/dL 12.0-15.5 [facility]) Red Blood Count 3.59 10 4.00-5.40 [facility] ([facility]) Hematocrit 33.1 % 36.0-47.0 [facility]) Mean Corpuscular Volume 92.2 fl 80.0-96.0 [facility] ([facility]) Mean Corpuscular Hemoglobin 27.9 pg 27.0-33.0 [facility] ([facility]) Platelet Count, Automated 427 10 150-450 [facility] ([facility]) Red Cell Distribution Width 15.9 % 11.5-14.5 [facility] ([facility]) Mean Corpuscular HGB Conc 30.2 g/dL 32.0-36.5 [facility] ([facility]) [place] % 8.8 % 0.0-5.0 [facility]) Neutrophils % 56.1 % 36.0-66.0 [facility] ([facility]) Lymph % 28.3 % 24.0-44.0 [facility]) Eos % 5.8 % 0.0-3.0 [facility]) Immature Granulocyte % 0.3 % 0-3.0 [facility] ([facility]) Baso % 0.7 % 0.0-1.0 [facility] Nucleated Red Blood Cell % 0.0 % 0-0 [facility] ([facility]) Neutrophils # 5.5 10 1.5-8.5 [facility] ([facility]) Eos # 0.6 10 0.0-0.5 [facility]) Lymph # 2.8 10 1.5-5.0 [facility]) [place] # 0.9 10 0.0-0.8 [facility]) Baso # 0.1 10 0.0-0.2 [facility] ID Date Data Source [id number] 02/01/2020 08:40:00 PM EDT [facility] ([facility]) Name Value Range Interpretation Code Description Data Amber rce(s) Supporting Document(s) Troponin I.cardiac [Mass/volume] in Serum or Plasma Laboratory test result [facility] ([facility]) <content>Troponin I Reference Interval f or Siemens [place] LOCI:</content>
<content></content>
<content>99th Percentile= 0.00-0.045 ng/ml</content>
<content></content>
[...] ([facility]) ID Date Data Source [id number] 02/01/2020 08:40:00 PM EDT [facility] ([facility]) Name Value Range Interpretation Code Description Data Amber rce(s) Supporting Document(s) Glucose, Fasting 103 mg/dL 70-100 [facility] ([facility]) Blood Urea Nitrogen 10 mg/dL 7-18 [facility] Creatinine For GFR 1.34 mg/dL 0.55-1.30 [facility] ([facility] Sodium Level 138 meq/L 136-145 [facility] ([facility]) Glomerular Filtration Rate 41.3 [facility] <content>Units are mL/min/1.73 m2</content>
<content></content>
<content>Chronic Kidney Disease Staging per NKF:</content>
<content></content>
<content>Stage I & II GFR >=60 Normal to Mildly Decreased</content>
<content>Stage III GFR 30- 59 Moderately Decreased</content>
<content>Stage IV GFR 15-29 Severely Decreased</content>
<content>Stage V GFR <15 Very Little GFR Left</content>
<content>ESRD GFR <15 on ARTIFICIAL CANDY MAKER</content>
<content></content> Potassium Serum 4.4 meq/L 3.5-5.1 [facility] ([facility]) Chloride Level 107 meq/L 98-107 [facility] ([facility]) Carbon Dioxide Level 27 meq/L 21-32 [facility] ([facility]) Anion Gap 4 meq/L 8-16 [facility] Calcium Level 8.5 mg/dL 8.8-10.2 [facility] ([facility]) ID Date Data Source [id number] 02/01/2020 08:40:00 PM EDT [facility] ([facility]) Name Value Range Interpretation Code Description Data Amber rce(s) Supporting Document(s) Ast/Sgot 11 U/L 7-37 [facility] Alt/SGPT 11 U/L 12-78 [facility] ([facility] [place] Bilirubin,Total 0.1 mg/dL 0.2-1.0 [facility] ([facility]) Alkaline Phosphatase 101 U/L 45-117 [facility] ([facility]) Bilirubin,Direct Laboratory test result 0.0-0.2 [facility] ([facility]) Albumin 3.0 GM/DL 3.2-5.2 [facility] Total Protein 7.0 GM/DL 6.4-8.2 [facility] ([facility]) Albumin/Globulin Ratio 0.8 1.2-2.2 [facility] ([facility]) ID Date Data Source [id number] 02/01/2020 08:40:00 PM EDT [facility] ([facility]) Name Value Range Interpretation Code Description Data Amber rce(s) Supporting Document(s) CPK Creatine Phosphokinase 60 U/L 26-192 [facility] ([facility]) CK-MB Value Mass Laboratory test result [facility] MB/CK Relative Index 1.67 [facility] ([facility] <content>DIAGNOSIS CRITERIA</content>
<content>MMB ng/ml Relative Index (RI)</content>
<content>NON-AMI < or = 5 N/A</content>
<content>BLANC ZONE > 5 < or = 4</content>
<content>AMI > 5 > 4</content>
<content></content> ID Date Data Source [id number] 01/24/2020 01:00:00 PM EDT [facility] Name Value Range Interpretation Code Description Data Amber rce(s) Supporting Document(s) C reactive protein [Mass/volume] in Serum or Plasma by High sensitivity method Laboratory test result [facility] ID Date Data Source [id number] 01/24/2020 12:59:00 PM EDT [facility] Name Value Range Interpretation Code Description Data Amber rce(s) Supporting Document(s) Erythrocyte sedimentation rate by Westergren method 54 mm/hr 0-15 [facility] ID Date Data Source [id number] 12/31/2019 01:24:00 PM EDT [facility] Name Value Range Interpretation Code Description Data Amber rce(s) Supporting Document(s) Laboratory test finding (navigational concept) 122 mg/dL 70-105 [facility] ([facility]) Laboratory test finding (navigational concept) 31.0 % 38.0-51.0 [facility] ([facility]) Laboratory test finding (navigational concept) 3.8 meq/L 3.5-5.1 [facility] ([facility]) Laboratory test finding (navigational concept) 4.6 mg/dL 4.5-5.3 [facility] ([facility]) Laboratory test finding (navigational concept) 138 meq/L 136-145 [facility] ([facility]) Laboratory test finding (navigational concept) 9 mg/dL 8-26 [facility] ([facility]) Laboratory test finding (navigational concept) 20.0 MM/L 23.0-27.0 [facility] ([facility]) Laboratory test finding (navigational concept) 104 meq/L 98-109 [facility] ([facility]) Laboratory test finding (navigational concept) 1.3 mg/dL 0.6-1.3 [facility] ([facility]) ID Date Data Source [id number] 12/31/2019 01:22:00 PM EDT [facility] ([facility]) Name Value Range Interpretation Code Description Data Amber rce(s) Supporting Document(s) White Blood Count 13.4 10 4.0-10.0 [facility] ([facility]) Red Blood Count 3.12 10 4.00-5.40 [facility] ([facility]) Hematocrit 28.8 % 36.0-47.0 [facility] Hemoglobin 8.9 g/dL 12.0-15.5 [facility] ([facility]) Mean Corpuscular Volume 92.3 fl 80.0-96.0 [facility] ([facility]) Mean Corpuscular HGB Conc 30.9 g/dL 32.0-36.5 [facility] ([facility]) Mean Corpuscular Hemoglobin 28.5 pg 27.0-33.0 [facility] ([facility]) Red Cell Distribution Width 17.3 % 11.5-14.5 [facility] ([facility]) Neutrophils % 71.0 % 36.0-66.0 [facility] ([facility]) Platelet Count, Automated 449 10 150-450 [facility] ([facility]) [place] % 9.4 % 0.0-5.0 [facility]) Eos % 3.4 % 0.0-3.0 [facility]) Lymph % 15.3 % 24.0-44.0 [facility]) Baso % 0.5 % 0.0-1.0 [facility]) Immature Granulocyte % 0.4 % 0-3.0 [facility] ([facility]) Nucleated Red Blood Cell % 0.0 % 0-0 [facility] ([facility]) Neutrophils # 9.5 10 1.5-8.5 [facility] ([facility]) Lymph # 2.0 10 1.5-5.0 [facility]) [place] # 1.3 10 0.0-0.8 [facility] Eos # 0.5 10 0.0-0.5 [facility] Baso # 0.1 10 0.0-0.2 [facility] ID Date Data Source [id number] 12/31/2019 01:17:00 PM EDT [facility] ([facility]) Name Value Range Interpretation Code Description Data Amber rce(s) Supporting Document(s) Laboratory test finding (navigational concept) 0.00 ng/mL 0.00-0.08 [facility] ([facility]) ID Date Data Source [id number] 12/31/2019 01:17:00 PM EDT [facility] ([facility]) Name Value Range Interpretation Code Description Data Amber rce(s) Supporting Document(s) Troponin I.cardiac [Mass/volume] in Serum or Plasma Laboratory test result [facility] ([facility]) Laboratory test finding (navigational concept) 0.00 ng/mL 0.00-0.08 [facility] ([facility]) ID Date Data Source [id number] 12/19/2019 02:28:00 PM EDT [facility] ([facility]) Name Value Range Interpretation Code Description Data Amber rce(s) Supporting Document(s) Cholesterol [Mass/volume] in Serum or Plasma 109 mg/dL 131-200 [facility] ([facility]) Cholesterol in HDL [Mass/volume] in Serum or Plasma 52 mg/dL 35-60 [facility] ([facility]) Triglyceride [Mass/volume] in Serum or Plasma 93 mg/dL 30-150 [facility] ([facility]) Cholesterol in LDL [Mass/volume] in Serum or Plasma by calcu lation 38 CALC 50-159 [facility] ([facility]) ID Date Data Source [id number] 12/19/2019 02:28:00 PM EDT [facility] ([facility]) Name Value Range Interpretation Code Description Data Amber rce(s) Supporting Document(s) Urea nitrogen [Mass/volume] in Serum or Plasma 11 mg/dL 7-18 [facility] ([facility]) Creatinine 1.5 mg/dL 0.6-1.3 [facility] ([facility]) NOTE: RESULT VERIFIED. Glucose [Mass/volume] in Serum or Plasma 100 mg/dL 74-99 [facility] ([facility]) 100-125 mg/dL PRE-DIABETES/FASTING >126 mg/dL DIABETES/FASTING Sodium [Moles/volume] in Serum or Plasma 138 meq/L 136-145 [facility] ([facility]) Chloride [Moles/volume] in Serum or Plasma 104 meq/L 98-107 [facility] ([facility]) Potassium [Moles/volume] in Serum or Plasma 4.5 meq/L 3.5-5.1 [facility] ([facility]) Calcium [Mass/volume] in Serum or Plasma 8.0 mg/dL 8.5-10.1 [facility] ([facility]) NOTE: RESULT VERIFIED. Alkaline phosphatase isoenzyme [Units/volume] in Serum or Pl asma 96 mg/dL 46-116 [facility] ([facility]) Carbon dioxide, total [Moles/volume] in Serum or Plasma 27 meq/L 21 -32 [facility] ([facility]) Aspartate aminotransferase [Enzymatic activity/volume] in Serum or Plasma 10 U/L 15-37 [facility] ([facility] ) Alanine aminotransferase [Enzymatic activity/volume] in Seru m or Plasma 14 U/L 12-78 [facility] ([facility]) Total Bilirubin 0.2 mg/dL 0.2-1.0 [facility] ([facility]) A/G Ratio 0.61 CALC 1.00-1.90 [facility] Albumin [Mass/volume] in Serum or Plasma 2.7 g/dL 3.4-5.0 [facility] ([facility]) NOTE: RESULT VERIFIED. Proteinase 3 Ab [Units/volume] in Serum 7.1 g/dL 6.4-8.2 [facility] Glomerular filtration rate/1.73 sq M pre dicted among non-blacks [Volume Rate/Area] in Serum or Plasma by Creatinine-based formula (MDRD) 34 mL/min [facility] Glomerular filtration rate/1.73 sq M pre dicted among blacks [Volume Rate/Area] in Serum or Plasma by Creatinine-based formula (MDRD) 41 mL/min [facility] <content>CHRONIC KIDNEY DISEASE STAGING PER NKF</content>
<content></content>
<content>STAGE I & II GFR >= 60 NORMAL TO MILDLY DECREASED</content>
<content>STAGE III GFR 30-59 MODERATELY DECREASED</content>
<content>STAGE IV GFR 15-29 SEVERELY DECREASED</content>
<content>STAGE V GFR <15 VERY LITTLE GFR LEFT</content>
<content>ESRD GFR <15 ON ARTIFICIAL CANDY MAKER</content>
<content></content> ID Date Data Source [id number] 12/19/2019 02:28:00 PM EDT [facility] Name Value Range Interpretation Code Description Data Amber rce(s) Supporting Document(s) Erythrocyte sedimentation rate by Westergren method 55 mm/hr 0-15 [facility] ID Date Data Source [id number] 12/19/2019 02:28:00 PM EDT [facility] Name Value Range Interpretation Code Description Data Amber rce(s) Supporting Document(s) Leukocytes [#/volume] in Blood by Automated count 10.8 x10*3/UL 4.1-1 0.9 [facility] Erythrocytes [#/volume] in Blood by Automated count 3.41 x10*6/UL 4.2 0-6.30 [facility] Hemoglobin [Mass/volume] in Blood 9.7 g/dL 12.0-18.0 [facility] NOTE: RESULT VERIFIED. MCV 88.7 fL 80.0-97.0 [facility] MCH 28.6 pg 26.0-32.0 [facility] [place] Hematocrit [Volume Fraction] of Blood by Automated count 30.3 % 3 7.0-51.0 [facility] Erythrocyte distribution width [Ratio] by Automated count 17.2 % 11.6-13.7 [facility] Platelets [#/volume] in Blood by Automated count 530 x10*3/UL 140-440 [facility] MCHC 32.2 g/dL 31.0-38.0 [facility] MPV 7.0 FL 7.8-11.0 [facility] [place] [place] Mid % 7.6 % 1.7-9.3 [facility] ([facility] [place] Lymph % 21.6 % 10.0-58.5 [facility] ([facility] [place] Mid # 0.8 x10*3/UL 0.1-0.6 [facility] ([facility]) Neut % 70.8 % 37.0-92.0 [facility] ([facility] [place] Lymph # 2.3 x10*3/UL 0.6-4.1 [facility] ([facility]) Neut # 7.7 x10*3/UL 2.0-7.8 [facility] ([facility]) ID Date Data Source [id number] 10/22/2019 02:22:00 PM EDT [facility] ([facility] Name Value Range Interpretation Code Description Data Amber rce(s) Supporting Document(s) Cyclic citrullinated peptide IgG Ab [Units/volume] in Serum or Plasma 9 units 0-19 [facility] ([facility]) <content>Negative <20</con tent>
<content>Weak positive 20 - 39</content>
<content>Moderate positive 40 - 59</content>
<content>Strong positive >59</content>
<content>Performed at: [facility] [place]</content>
<content>[address], [place] [id number]</content>
<content>String Cutter: Trevin Hardin MD, Phone: [phone]</content>
<content></content> ID Date Data Source [id number] 10/22/2019 02:22:00 PM EDT [facility] ([facility]) Name Value Range Interpretation Code Description Data Amber rce(s) Supporting Document(s) Glucose [Mass/volume] in Serum or Plasma 131 mg/dL 74-99 [facility] ([facility]) 100-125 mg/dL PRE-DIABETES/FASTING >126 mg/dL DIABETES/FASTING Creatinine 1.9 mg/dL 0.6-1.3 [facility] ([facility]) Urea nitrogen [Mass/volume] in Serum or Plasma 17 mg/dL 7-18 [facility] ([facility]) Chloride [Moles/volume] in Serum or Plasma 103 meq/L 98-107 [facility] ([facility]) Carbon dioxide, total [Moles/volume] in Serum or Plasma 25 meq/L 21 -32 [facility] ([facility]) Sodium [Moles/volume] in Serum or Plasma 139 meq/L 136-145 [facility] ([facility]) Potassium [Moles/volume] in Serum or Plasma 3.7 meq/L 3.5-5.1 [facility] ([facility]) Glomerular filtration rate/1.73 sq M pre dicted among blacks [Volume Rate/Area] in Serum or Plasma by Creatinine-based formula (MDRD) 31 mL/min [facility] ([facility]) <content>CHRONIC KIDNEY DISEASE STAGING PER NKF</content>
<content></content>
<content>STAGE I & II GFR >= 60 NORMAL TO MILDLY DECREASED</content>
<content>STAGE III GFR 30-59 MODERATELY DECREASED</content>
<content>STAGE IV GFR 15-29 SEVERELY DECREASED</content>
<content>STAGE V GFR <15 VERY LITTLE GFR LEFT</content>
<content>ESRD GFR <15 ON ARTIFICIAL CANDY MAKER</content>
<content></content> Calcium [Mass/volume] in Serum or Plasma 8.3 mg/dL 8.5-10.1 [facility] Glomerular filtration rate/1.73 sq M pre dicted among non-blacks [Volume Rate/Area] in Serum or Plasma by Creatinine-based formula (MDRD) 26 mL/min [facility] ID Date Data Source [id number] 10/22/2019 02:22:00 PM EDT [facility] ([facility] Name Value Range Interpretation Code Description Data Amber rce(s) Supporting Document(s) Erythrocyte sedimentation rate by Westergren method 55 mm/hr 0-15 [facility] ID Date Data Source [id number] 10/22/2019 02:22:00 PM EDT [facility] ([facility] Name Value Range Interpretation Code Description Data Amber rce(s) Supporting Document(s) Erythrocytes [#/volume] in Blood by Automated count 3.58 x10*6/UL 4.2 0-6.30 [facility] Leukocytes [#/volume] in Blood by Automated count 14.0 x10*3/UL 4.1-1 0.9 [facility] NOTE: RESULT VERIFIED. MCH 28.5 pg 26.0-32.0 [facility] ([facility] [place] Hematocrit [Volume Fraction] of Blood by Automated count 30.5 % 3 7.0-51.0 [facility] Hemoglobin [Mass/volume] in Blood 10.2 g/dL 12.0-18.0 [facility] MCV 85.0 fL 80.0-97.0 [facility] ([facility] [place] MCHC 33.5 g/dL 31.0-38.0 [facility] ([facility] [place]) Platelets [#/volume] in Blood by Automated count 551 x10*3/UL 140-440 [facility] Erythrocyte distribution width [Ratio] by Automated count 15.5 % 11.6-13.7 [facility] Lymph % 17.5 % 10.0-58.5 [facility] Neut % 77.4 % 37.0-92.0 [facility]) MPV 7.6 FL 7.8-11.0 [facility]) Mid % 5.1 % 1.7-9.3 [facility]) Neut # 10.9 x10*3/UL 2.0-7.8 [facility] ([facility]) Lymph # 2.4 x10*3/UL 0.6-4.1 [facility] ([facility]) Mid # 0.7 x10*3/UL 0.1-0.6 [facility] ([facility]) ID Date Data Source [id number] 09/17/2019 02:25:00 PM EDT [facility] ([facility]) Name Value Range Interpretation Code Description Data Amber rce(s) Supporting Document(s) Urea nitrogen [Mass/volume] in Serum or Plasma 16 mg/dL 7-18 [facility] ([facility]) Sodium [Moles/volume] in Serum or Plasma 138 meq/L 136-145 [facility] ([facility]) Creatinine 1.8 mg/dL 0.6-1.3 [facility] ([facility]) Glucose [Mass/volume] in Serum or Plasma 123 mg/dL 74-99 [facility] ([facility]) 100-125 mg/dL PRE-DIABETES/FASTING >126 mg/dL DIABETES/FASTING Carbon dioxide, total [Moles/volume] in Serum or Plasma 26 meq/L 21 -32 [facility] ([facility]) Potassium [Moles/volume] in Serum or Plasma 3.6 meq/L 3.5-5.1 [facility] ([facility]) Calcium [Mass/volume] in Serum or Plasma 8.3 mg/dL 8.5-10.1 [facility] ([facility]) Chloride [Moles/volume] in Serum or Plasma 103 meq/L 98-107 [facility] ([facility]) Aspartate aminotransferase [Enzymatic activity/volume] in Se rum or Plasma 8 U/L 15-37 [facility] ([facility]) Alanine aminotransferase [Enzymatic activity/volume] in Seru m or Plasma 11 U/L 12-78 [facility] ([facility]) Alkaline phosphatase isoenzyme [Units/volume] in Serum or Pl asma 96 mg/dL 46-116 [facility] ([facility]) Total Bilirubin 0.2 mg/dL 0.2-1.0 [facility] ([facility]) Albumin [Mass/volume] in Serum or Plasma 2.9 g/dL 3.4-5.0 [facility] ([facility]) Proteinase 3 Ab [Units/volume] in Serum 7.9 g/dL 6.4-8.2 [facility] ([facility]) A/G Ratio 0.58 CALC 1.00-1.90 [facility] Glomerular filtration rate/1.73 sq M pre dicted among non-blacks [Volume Rate/Area] in Serum or Plasma by Creatinine-based formula (MDRD) 28 mL/min [facility] ([facility]) Glomerular filtration rate/1.73 sq M pre dicted among blacks [Volume Rate/Area] in Serum or Plasma by Creatinine-based formula (MDRD) 33 mL/min [facility] ([facility]) <content>CHRONIC KIDNEY DISEASE STAGING PER NKF</content>
<content></content>
<content>STAGE I & II GFR >= 60 NORMAL TO MILDLY DECREASED</content>
<content>STAGE III GFR 30-59 MODERATELY DECREASED</content>
<content>STAGE IV GFR 15-29 SEVERELY DECREASED</content>
<content>STAGE V GFR <15 VERY LITTLE GFR LEFT</content>
<content>ESRD GFR <15 ON ARTIFICIAL CANDY MAKER</content>
<content></content> ID Date Data Source [id number] 09/17/2019 02:25:00 PM EDT [facility] ([facility]) Name Value Range Interpretation Code Description Data Amber rce(s) Supporting Document(s) Creatine kinase [Enzymatic activity/volume] in Serum or Plasma 40 U /L 26-192 [facility] ([facility]) ID Date Data Source [id number] 09/17/2019 02:24:00 PM EDT [facility] ([facility]) Name Value Range Interpretation Code Description Data Amber rce(s) Supporting Document(s) Myoglobin Screen, Urine Laboratory test result [facility] ID Date Data Source [id number] 09/17/2019 02:24:00 PM EDT [facility] Name Value Range Interpretation Code Description Data Amber rce(s) Supporting Document(s) Color, Urine Laboratory test result [facility] Appearance, Urine Laboratory test result [facility]) Specific [place] Urine Auto 1.014 1.002-1.035 [facility] ([facility]) Protein, Urine Auto Laboratory test result [facility] PH,Urine 5.0 units 5.0-9.0 [facility]) Glucose, Urine (Ua) Auto Laboratory test result [facility] ([facility]) Ketone, Urine Auto Laboratory test result [facility] Bilirubin, Urine Auto Laboratory test result [facility] Urobilinogen, Urine Auto 0.2 mg/dL 0.0-2.0 [facility] Leukocyte Esterase, Urine Auto Laboratory test result [facility]) WBC, Urine Auto 7 /HPF 0-3 [facility] ([facility]) Blood, Urine Blood Laboratory test result [facility] Nitrite, Urine Auto Laboratory test result [facility] ([facility]) Bacteria, Urine Auto Laboratory test result [facility] Squamous Epithelial Cell Ur AU 2 /HPF 0-6 [facility] ([facility]) RBC, Urine Auto 4 /HPF 0-3 [facility] ([facility]) Transitional Epithelial Auto Laboratory test result [facility] Hyaline Cast, Urine Auto 0 /LPF 0-1 [facility] Mucus, Urine Laboratory test result [facility] ID Date Data Source [id number] 09/06/2019 02:22:00 PM EST [facility] Name Value Range Interpretation Code Description Data Amber rce(s) Supporting Document(s) PTT Lupus Type Anticoag Screen 1.1 0-1.2 [facility] ([facility]) RESULT IS [...] a specific inhibitor. ID Date Data Source [id number] 09/06/2019 02:22:00 PM [facility] ([facility]) Name Value Range Interpretation Code Description Data Amber rce(s) Supporting Document(s) Cyclic citrullinated peptide IgG Ab [Units/volume] in Serum or Plasma 9 units 0-19 [facility] ([facility]) <content>Negative <20</con tent>
<content>Weak positive 20 - 39</content>
<content>Moderate positive 40 - 59</content>
<content>Strong positive >59</content>
<content>Performed at: [facility] [place]</content>
<content>[address] [place] [id number]</content>
<content>String Cutter: Trevin Hardin MD, Phone: [phone]</content>
<content></content> ID Date Data Source [id number] 09/06/2019 02:18:00 PM EST [facility] Name Value Range Interpretation Code Description Data Amber rce(s) Supporting Document(s) Glucose [Mass/volume] in Serum or Plasma 130 mg/dL 74-99 [facility] ([facility]) 100-125 mg/dL PRE-DIABETES/FASTING >126 mg/dL DIABETES/FASTING Urea nitrogen [Mass/volume] in Serum or Plasma 18 mg/dL 7-18 [facility] ([facility]) Potassium [Moles/volume] in Serum or Plasma 3.8 meq/L 3.5-5.1 [facility] ([facility]) Creatinine 2.0 mg/dL 0.6-1.3 [facility] ([facility]) Sodium [Moles/volume] in Serum or Plasma 138 meq/L 136-145 [facility] ([facility]) Carbon dioxide, total [Moles/volume] in Serum or Plasma 23 meq/L 21 -32 [facility] ([facility]) Chloride [Moles/volume] in Serum or Plasma 103 meq/L 98-107 [facility] ([facility]) Calcium [Mass/volume] in Serum or Plasma 8.4 mg/dL 8.5-10.1 [facility] Glomerular filtration rate/1.73 sq M pre dicted among non-blacks [Volume Rate/Area] in Serum or Plasma by Creatinine-based formula (MDRD) 24 mL/min [facility] Glomerular filtration rate/1.73 sq M pre dicted among blacks [Volume Rate/Area] in Serum or Plasma by Creatinine-based formula (MDRD) 30 mL/min [facility] <content>CHRONIC KIDNEY DISEASE STAGING PER NKF</content>
<content></content>
<content>STAGE I & II GFR >= 60 NORMAL TO MILDLY DECREASED</content>
<content>STAGE III GFR 30-59 MODERATELY DECREASED</content>
<content>STAGE IV GFR 15-29 SEVERELY DECREASED</content>
<content>STAGE V GFR <15 VERY LITTLE GFR LEFT</content>
<content>ESRD GFR <15 ON ARTIFICIAL CANDY MAKER</content>
<content></content> ID Date Data Source [id number] 09/06/2019 02:18:00 PM EST [facility] ([facility]) Name Value Range Interpretation Code Description Data Amber rce(s) Supporting Document(s) Leukocytes [#/volume] in Blood by Automated count 10.4 x10*3/UL 4.1-1 0.9 [facility] ([facility]) Erythrocytes [#/volume] in Blood by Automated count 3.79 x10*6/UL 4.2 0-6.30 [facility] ([facility]) Hemoglobin [Mass/volume] in Blood 10.8 g/dL 12.0-18.0 [facility] ([facility]) Hematocrit [Volume Fraction] of Blood by Automated count 33.2 % 3 7.0-51.0 [facility] ([facility]) MCV 87.6 fL 80.0-97.0 [facility] MCHC 32.6 g/dL 31.0-38.0 [facility] MCH 28.5 pg 26.0-32.0 [facility]) Platelets [#/volume] in Blood by Automated count 455 x10*3/UL 140-440 [facility] Erythrocyte distribution width [Ratio] by Automated count 15.4 % 11.6-13.7 [facility] ([facility]) MPV 7.5 FL 7.8-11.0 [facility] Lymph % 17.2 % 10.0-58.5 [facility] Mid % 6.2 % 1.7-9.3 [facility] Mid # 0.8 x10*3/UL 0.1-0.6 [facility] ([facility]) Neut # 7.9 x10*3/UL 2.0-7.8 [facility] ([facility]) Lymph # 1.7 x10*3/UL 0.6-4.1 [facility] ([facility]) Neut % 76.6 % 37.0-92.0 [facility] ID Date Data Source [id number] 09/02/2019 12:48:00 PM EST [facility] ([facility]) Name Value Range Interpretation Code Description Data Amber rce(s) Supporting Document(s) Antinuclear Antibodies Laboratory test result [facility] ([facility]) Performed at: RN - [facility] [address] [id number] String Cutter: Jillian Miner MD, Phone: [phone] ID Date Data Source [id number] 09/02/2019 12:48:00 PM EST [facility] ([facility]) Name Value Range Interpretation Code Description Data Amber rce(s) Supporting Document(s) Rheumatoid Factor Quant 48.1 IU/ml [facility] <content>note:<nlbl:demographic_changed></content>
<content>note:<nlbl:demog raphic_changed></content>
<content>note:<nlbl:demographic_changed></content>
<content></content> Erythrocyte sedimentation rate by Westergren method 65 mm/hr 0-30 [facility] Bacteria identified in Blood by Culture Laboratory test result [facility] No growth after 72 hours . [...] by High sensitivity method 4.23 mg/dL 0.00-0.30 [facility] <content>note:<nlbl:demographic_changed></content>
<content>note:<nlbl:demog raphic_changed></content>
<content>note:<nlbl:demographic_changed></content>
<content></content> ID Date Data Source [id number] 09/02/2019 12:48:00 PM EST [facility] ([facility]) Name Value Range Interpretation Code Description Data Amber rce(s) Supporting Document(s) CPK Creatine Phosphokinase 87 U/L 26-192 [facility] ([facility]) MB/CK Relative Index 1.95 [facility] ([facility]) <content>DIAGNOSIS CRITERIA</content>
<content>MMB ng/ml Relative Index (RI)</content>
<content>NON-AMI < or = 5 N/A</content>
<content>BLANC ZONE > 5 < or = 4</content>
<content>AMI > 5 > 4</content>
<content></content> CK-MB Value Mass 1.7 ng/mL [facility] ([facility]) Troponin I Laboratory test result [facility]) <content>Troponin I Reference Interval f or Siemens [place] LOCI:</content>
<content></content>
<content>99th Percentile= 0.00-0.045 ng/ml</content>
<content></content>
<content>Risk Stratification:</content>
<content><= 0.10 ng/ml Decreased Risk for Adverse Clinical</content>
<content>Events.</content>
<content>0.10-1.50 ng/ml Increased Risk for Adverse Clinical</content>
<content>Events. Evaluation of additional</content>
<content>criterion and/or repeat testing in 2-6</content>
<content>hours is suggested to rule out myocardial</content>
<content>damage.</content>
<content>>= 1.50 ng/ml Indicative of Myocardial Injury.</content>
<content></content> ID Date Data Source [id number] 09/02/2019 12:48:00 PM EST [facility] ([facility]) Name Value Range Interpretation Code Description Data Amber rce(s) Supporting Document(s) Lactate [Mass/volume] in Serum or Plasma 1.6 mmol/L 0.4-2.0 [facility] <content>note:<nlbl:demographic_changed> </content>
<content>Y/N query for Sepsis Lactate Rule: Y</content>
<content></content> ID Date Data Source [id number] 09/02/2019 12:48:00 PM EST [facility] ([facility]) Name Value Range Interpretation Code Description Data Amber rce(s) Supporting Document(s) Glucose, Fasting 88 mg/dL 70-100 [facility] ([facility]) Blood Urea Nitrogen 15 mg/dL 7-18 [facility] ([facility]) Sodium Level 138 meq/L 136-145 [facility] ([facility]) Creatinine For GFR 1.66 mg/dL 0.55-1.30 [facility] ([facility]) Glomerular Filtration Rate 32.2 [facility] ([facility]) <content>Units are mL/min/1.73 m2</content>
<content></content>
<content>Chronic Kidney Disease Staging per NKF:</content>
<content></content>
<content>Stage I & II GFR >=60 Normal to Mildly Decreased</content>
<content>Stage III GFR 30- 59 Moderately Decreased</content>
<content>Stage IV GFR 15-29 Severely Decreased</content>
<content>Stage V GFR <15 Very Little GFR Left</content>
<content>ESRD GFR <15 on ARTIFICIAL CANDY MAKER</content>
<content></content> Carbon Dioxide Level 23 meq/L 21-32 [facility] ( [facility] Anion Gap 7 meq/L 8-16 [facility]) Potassium Serum 4.3 meq/L 3.5-5.1 [facility] ([facility]) Chloride Level 108 meq/L 98-107 [facility] ([facility]) Calcium Level 8.0 mg/dL 8.8-10.2 [facility] ([facility]) ID Date Data Source [id number] 09/02/2019 12:48:00 PM EST [facility] ([facility]) Name Value Range Interpretation Code Description Data Amber rce(s) Supporting Document(s) White Blood Count 12.6 10 4.0-10.0 [facility] Hematocrit 36.0 % 36.0-47.0 [facility] Red Blood Count 3.85 10 4.00-5.40 [facility] Hemoglobin 10.8 g/dL 12.0-15.5 [facility] Red Cell Distribution Width 16.1 % 11.5-14.5 [facility] ([facility]) Mean Corpuscular HGB Conc 30.0 g/dL 32.0-36.5 [facility] ([facility]) Mean Corpuscular Hemoglobin 28.1 pg 27.0-33.0 [facility] ([facility]) Mean Corpuscular Volume 93.5 fl 80.0-96.0 [facility] ([facility]) Lymph % 16.7 % 24.0-44.0 [facility]) Platelet Count, Automated 481 10 150-450 [facility] ([facility]) Neutrophils % 64.1 % 36.0-66.0 [facility] ([facility]) Baso % 0.7 % 0.0-1.0 [facility] Eos % 12.8 % 0.0-3.0 [facility]) [place] % 5.2 % 0.0-5.0 [facility] Lymph # 2.1 10 1.5-5.0 [facility]) Neutrophils # 8.1 10 1.5-8.5 [facility] ([facility] [facility]) Immature Granulocyte % 0.5 % 0-3.0 [facility] ([facility]) Nucleated Red Blood Cell % 0.0 % 0-0 MED ENT ([facility]) Eos # 1.6 10 0.0-0.5 [facility] ([facility]) Baso # 0.1 10 0.0-0.2 [facility] ([facility]) [place] # 0.7 10 0.0-0.8 [facility] ([facility]) ID Date Data Source [id number] 08/07/2019 10:04:30 PM EST [facility] Name Value Range Interpretation Code Description Data Amber rce(s) Supporting Document(s) &PDF [facility] OOSVJx6wBiCFWkFg56/TWQipANWtu8VyMJnyVYq5QZsgWYNxG3MlkXetJACKHVSOM00gKA9VCHPWIYIw yKE [file] cNFJ8spCYpRAhYzmA0imt/6isYC/R9VP3RaXIP8+DOOR MANAGER [file] +NVcYnAZJGTQUlMAOuDR0Ez3b7l/UbFFiZvP9OYnt0cm9EoOIV3GLaYKR4NnbxgRkT4nM+ZkEKGl+Certified Novell Administrator [file] AgICAgICAgICAgICAgICAgICAgICAgICAgICAgICAgICAgICAgICAgICAgICAgICAgICAgICAgICAgIC AgICAgICAgICANCiAgICAgICAgICAgICAgICAgICAg ICAgICAgICAgICAgICAgICAgICAgICAgICAgICAgICAgICAgICAgICAgICAgICAgICAgICAgICAgICAg ICAgICAgICAgICAgICAgICAgICANCiAgICAgICAgICAgICAgICAgICAgICAgICAgICAgICAgICAgICAg ICAgICAgICAgICAgICAgICAgICAgICAgICAgICAgIC AgICAgICAgICAgICAgICAgICAgICAgICAgICAgICANCiAgICAgICAgICAgICAgICAgICAgICAgICAgIC AgICAgICAgICAgICAgICAgICAgICAgICAgICAgICAgICAgICAgICAgICAgICAgICAgICAgICAgICAgIC AgICAgICAgICAgICANCiAgICAgICAgICAgICAgICAg ICAgICAgICAgICAgICAgICAgICAgICAgICAgICAgICAgICAgICAgICAgICAgICAgICAgICAgICAgICAg ICAgICAgICAgICAgICAgICAgICAgICANCiAgICAgICAgICAgICAgICAgICAgICAgICAgICAgICAgICAg ICAgICAgICAgICAgICAgICAgICAgICAgICAgICAgIC AgICAgICAgICAgICAgICAgICAgICAgICAgICAgICAgICANCiAgICAgICAgICAgICAgICAgICAgICAgIC AgICAgICAgICAgICAgICAgICAgICAgICAgICAgICAgICAgICAgICAgICAgICAgICAgICAgICAgICAgIC AgICAgICAgICAgICAgICANCiAgICAgICAgICAgICAg ICAgICAgICAgICAgICAgICAgICAgICAgICAgICAgICAgICAgICAgICAgICAgICAgICAgICAgICAgICAg ICAgICAgICAgICAgICAgICAgICAgICAgICANCiAgICAgICAgICAgICAgICAgICAgICAgICAgICAgICAg ICAgICAgICAgICAgICAgICAgICAgICAgICAgICAgIC AgICAgICAgICAgICAgICAgICAgICAgICAgICAgICAgICAgICANCiAgICAgICAgICAgICAgICAgICAgIC AgICAgICAgICAgICAgICAgICAgICAgICAgICAgICAgICAgICAgICAgICAgICAgICAgICAgICAgICAgIC AgICAgICAgICAgICAgICAgICANCjw/nSMsQ3kojKIa qwQ3J4tvYl7AUz6QUW1dd2TrSKDpBZymneTlShkLRtBqBUGxMraBXgt6MSwyBS0FpHJjV6RxK0VlAVrt PK4JSIRfECVdhEVeOLHaPEAzXdU5YKEoKJkgMB3LeWGwJTczLZHeFYWmNuUwZZDhGZ5VOABhJ450utLs Lx0MLg3OSbPsKU1zey4MPaWlKSBuDgeFVln4ENfbZV 3NjGQjG0ObgMGpb1zIDnMxJ7CVGMMoZOOsMt5WXTPoDkEeXJEcKJbvPQ7kEAGzHPAEaVkmteK9TO3MEY 0ltrCoYA4LKxUrJf3tGs6TFjSxE4KmF2WlMNGgVWQORAjoWO6OSWUvMBA8GEUrIbFoQAXGRcBtK43oRN 5PN0Xyn12mFnQ0AOAvEaFjSCboRR40dTwavcOjvHRw rGfxZD4MNh5+COqqqzPgKboPMrjgYNGHWjXdNzZYNdLaRCUwVDAeORNuBnS6JkUiFk3VZPYfWJGeLDBz AgXuCQUuYTGoFQklPTSuDOg8PsZfCSMxJZVnQA1LMdMiWAIvJRfmOMSvHLEqFIQbvb8GMMEdCOQxJZW7 SaZfLIZvAPBcCPjrCUWpLXEvKWZ9QFQgHCIaMG7YQx AvEMAbKVO6HlOzESEvHHOame8FOPQkCTApFIW7WJKyCZKbBSKfHLqoYLOjTBZ4VYd5RRNxVANdZC0SAk DeGYRlYDW8RpAtQKUyNIAmya7MRZXlKYFgTjkdLbHvODWzGAXuYYmeJLTrUKS9VZKoGZBuGGWvNX1RPs JjDUJnOYy8NDAdSZNjHGTnua6ZQJTuUGFpGHP6PZLe XQBxEJRvTLrkSBXyHZQ2SsRlDRCrVYZaEV5TNoBpZEJpHRNvUMsqIIYqMJGnms1TEZXuJDKgJkStFjMf POKmZFYhXVymFAJrKXJrAxP8LSIdQEQlLY9ECdAnOQGjIMJ1JHmfTNXrIZWsha4RKXQaOGZwDXDuZGEa UGMjNSHsZNywJMZuRUD5BFd8EHUrDSSjKV5PUnPjNR NkDFVvQpPkRNKxTAXrpw5RBYJrPVZaILNkZZAjEJGzBIRaFYbtYTQmDPApWIX0VIPySQXcIB8PPvFzCP WgCmAwPzobKADeRXFuer3VNDQpWKQaDMF2DHThHSDkOGPqBHjpYWVlTRN0QFUyUMTbMFYgLA2EEpCoOC CiKMOoHZprNILaSEQgnu6ZYDQpYTX9RrS1KEPwCVRr KWRkYNnoELXeEOw2QLR5JOPxGIAcMP3HHdJyKLAaSCCbQAzoUYOkFODotn4BXEKbFBD7XdB1FSLkPWHh SRFiKEdwHNArFKc1SAWcBRXxVVDeJL9FFiZgFHVtVXedBCgoEXCkNIAbwa4OhIWsuTevmv0RTNpUFo4R xRrhBWA1URhyIn4wzEOeOfEwLXTJLc7BpmUhAHJbZH FMRIhzIJYsKJMsGenrVjI8RYl1AvHsKPi9D4LrRRJtKOSvTGSyCOGfOgA7QLGlH0Y4MyaaLFywJVV1PE neSVA8IkKuYJAhVcV9WuG+FX8cNQe+Ph3Zx6GbeoQ0kqLrWGe3ZUU3CB6SJSDIH7GVSp== Procedure Social History Code Duration Value Status Description Data Source(s ) Smoking 07/13/2020 12:00:00 AM EST Current Smoker completed Curre nt Smoker eCW1 ([facility]) Smoking 07/13/2020 12:00:00 AM EST Current Smoker completed Curre nt Smoker eCW1 ([facility]) Smoking 06/24/2020 12:00:00 AM EST Current Smoker completed Curre nt Smoker eCW1 ([facility]) Alcohol intake 06/12/2020 12:00:00 AM EST Never completed [facility] Smoking 06/12/2020 12:00:00 AM EST Current every day smoker co mpleted Current every day smoker [facility] Smoking 06/04/2020 12:00:00 AM EST Current Smoker completed Curre nt Smoker eCW1 ([facility]) Smoking 06/04/2020 12:00:00 AM EST Current Smoker completed Curre nt Smoker eCW1 ([facility]) Smoking 06/04/2020 12:00:00 AM EST Current Smoker completed Curre nt Smoker eCW1 ([facility]) Smoking 05/19/2020 12:00:00 AM EST Current Smoker completed Curre nt Smoker eCW1 ([facility]) Smoking 05/19/2020 12:00:00 AM EST Current Smoker completed Curre nt Smoker eCW1 ([facility]) Smoking 05/05/2020 12:00:00 AM EST Current Smoker completed Curre nt Smoker eCW1 ([facility]) Smoking 05/05/2020 12:00:00 AM EST Current Smoker completed Curre nt Smoker eCW1 ([facility]) Smoking 01/21/2020 12:00:00 AM EDT Current Smoker completed Curre nt Smoker eCW1 ([facility]) Vital Signs ID Date Data Source UNK Name Value Range Interpretation Code Description Data Source(s) Body mass index (BMI) [Ratio] 27.9 kg/m2 27.9 k g/m2 [facility] ([facility] ) Body weight 160.00 [lb_av] 160.00 [lb_av] MEDEN T ([facility] ) Body height 63.5 [in_i] 63.5 [in_i] [facility] ([facility] ) 5'3.50" Body temperature 96.3 [degF] 96.3 [degF] MEDENT ([facility]) Diastolic blood pressure 68 mm[Hg] 68 mm[Hg] eCW1 ([facility]) Systolic blood pressure 128 mm[Hg] 128 mm[Hg] e CW1 ([facility]) Body temperature 98.2 [degF] 98.2 [degF] eCW1 ( [facility]) Respiratory rate 18 /min 18 /min eCW1 ([facility] Heart rate 76 /min 76 /min eCW1 ([facility]) Body mass index (BMI) [Ratio] 28.11 kg/m2 28.11 kg/m2 eCW1 ([facility]) Body height 64 [in_i] 64 [in_i] eCW1 ([facility]) Body weight 74.3 kg 74.3 kg eCW1 ([facility]) Body weight 163.8 [lb_av] 163.8 [lb_av] eCW1 ([facility]) Diastolic blood pressure 68 mm[Hg] 68 mm[Hg] eCW1 ([facility]) Systolic blood pressure 128 mm[Hg] 128 mm[Hg] e CW1 ([facility]) Body temperature 97.2 [degF] 97.2 [degF] eCW1 ( [facility]) Respiratory rate 20 /min 20 /min eCW1 ([facility]) Heart rate 105 /min 105 /min eCW1 ([facility]) Body mass index (BMI) [Ratio] 27.94 kg/m2 27.94 kg/m2 eCW1 ([facility]) Body height 64 [in_i] 64 [in_i] eCW1 ([facility]) Body weight 73.8 kg 73.8 kg eCW1 ([facility]) Body weight 162.8 [lb_av] 162.8 [lb_av] eCW1 ([facility]) Body temperature 96.4 [degF] 96.4 [degF] MEDENT ([facility]) Diastolic blood pressure 74 mm[Hg] 74 mm[Hg] [facility] Systolic blood pressure 124 mm[Hg] 124 mm[Hg] [facility] Oxygen saturation in Arterial blood by Pulse oximetry 98 % 98 % [facility] Body mass index (BMI) [Ratio] 28.34 kg/m2 28.34 kg/m2 [facility] Body weight 72.576 kg 72.576 kg [facility] Heart rate 92 /min 92 /min [facility] Diastolic blood pressure 66 mm[Hg] 66 mm[Hg] eCW1 ([facility]) Systolic blood pressure 124 mm[Hg] 124 mm[Hg] e CW1 ([facility]) Body temperature 97.8 [degF] 97.8 [degF] eCW1 ( [facility]) Respiratory rate 18 /min 18 /min eCW1 ([facility]) Heart rate 64 /min 64 /min eCW1 ([facility]) Body mass index (BMI) [Ratio] 27.63 kg/m2 27.63 kg/m2 eCW1 ([facility]) Body height 64 [in_i] 64 [in_i] eCW1 ([facility]) Body weight 73.0 kg 73.0 kg eCW1 ([facility]) Body weight 161.0 [lb_av] 161.0 [lb_av] eCW1 ([facility]) Body mass index (BMI) [Ratio] 28.0 kg/m2 28.0 k g/m2 MEDRICK ([facility]) Oxygen saturation in Arterial blood by Pulse oximetry 96 % 96 % MEDRICK ([facility]) Air Body weight 158.00 [lb_av] 158.00 [lb_av] KADENEN T ([facility]) Body height 63 [in_i] 63 [in_i] MEDENT ([facility]) 5'3" Diastolic blood pressure 82 mm[Hg] 82 mm[Hg] [facility] ([facility]) Systolic blood pressure 138 mm[Hg] 138 mm[Hg] M EDENT ([facility]) Body temperature 96.0 [degF] 96.0 [degF] MEDENT ([facility]) Body mass index (BMI) [Ratio] 27.12 kg/m2 27.12 kg/m2 eCW1 ([facility]) Body height 64 [in_i] 64 [in_i] eCW1 ([facility]) Body weight 158 [lb_av] 158 [lb_av] eCW1 ([facility]) Diastolic blood pressure 68 mm[Hg] 68 mm[Hg] eCW1 ([facility]) Systolic blood pressure 130 mm[Hg] 130 mm[Hg] e CW1 ([facility]) Body mass index (BMI) [Ratio] 27.12 kg/m2 27.12 kg/m2 eCW1 ([facility]) Body height 64 [in_i] 64 [in_i] eCW1 ([facility]) Body weight 158 [lb_av] 158 [lb_av] eCW1 ([facility]) Body temperature 97.8 [degF] 97.8 [degF] eCW1 ( [facility]) Respiratory rate 18 /min 18 /min eCW1 ([facility]) Heart rate 53 /min 53 /min eCW1 ([facility]) Body mass index (BMI) [Ratio] 26.71 kg/m2 26.71 kg/m2 W1 ([facility]) Body height 64 [in_i] 64 [in_i] eCW1 ([facility]) Body weight 70.6 kg 70.6 kg W1 ([facility]) Body weight 155.6 [lb_av] 155.6 [lb_av] eCW1 ([facility]) Body mass index (BMI) [Ratio] 28.5 kg/m2 28.5 k g/m2 MEDENT ([facility]) Body weight 161.00 [lb_av] 161.00 [lb_av] MEDEN T ([facility]) Body height 63 [in_i] 63 [in_i] MEDENT ([facility]) 5'3" Heart rate 63 /min 63 /min MEDENT ([facility]) Diastolic blood pressure 56 mm[Hg] 56 mm[Hg] [facility] ([facility]) Systolic blood pressure 102 mm[Hg] 102 mm[Hg] M EDENT ([facility]) Body mass index (BMI) [Ratio] 28.3 kg/m2 28.3 k g/m2 [facility] ([facility]) Oxygen saturation in Arterial blood by Pulse oximetry 97 % 97 % [facility] ([facility]) RM Air Body weight 160.00 [lb_av] 160.00 [lb_av] MEDEN T ([facility]) Body height 63 [in_i] 63 [in_i] MEDENT ([facility]) 5'3" Heart rate 73 /min 73 /min MED[facility] ([facility]) Diastolic blood pressure 60 mm[Hg] 60 mm[Hg] [facility] ([facility]) Systolic blood pressure 118 mm[Hg] 118 mm[Hg] [facility] ([facility]) Body weight 72.746 kg 72.746 kg [facility] ([facility]) Body mass index (BMI) [Ratio] 27.5 kg/m2 27.5 k g/m2 [facility] ([facility]) Body weight 160.38 [lb_av] 160.38 [lb_av] MEDEN T ([facility]) Body height 64 [in_i] 64 [in_i] [facility] ([facility]) 5'4" Body temperature 98.1 [degF] 98.1 [degF] [facility] ([facility]) Diastolic blood pressure 87 mm[Hg] 87 mm[Hg] [facility] ([facility]) Systolic blood pressure 147 mm[Hg] 147 mm[Hg] [facility] ([facility]) Body mass index (BMI) [Ratio] 28.2 kg/m2 28.2 k g/m2 [facility] ([facility]) Oxygen saturation in Arterial blood by Pulse oximetry 98 % 98 % [facility] ([facility]) RM Air Body weight 159.00 [lb_av] 159.00 [lb_av] MEDEN T ([facility]) Body height 63 [in_i] 63 [in_i] [facility] 5'3" Heart rate 86 /min 86 /min [facility]) Diastolic blood pressure 84 mm[Hg] 84 mm[Hg] [facility] ([facility]) Systolic blood pressure 130 mm[Hg] 130 mm[Hg] [facility] ([facility]) Body weight 73.540 kg 73.540 kg [facility] ([facility]) Body mass index (BMI) [Ratio] 27.8 kg/m2 27.8 k g/m2 [facility] ([facility]) Body weight 162.12 [lb_av] 162.12 [lb_av] MEDEN ([facility]) Body height 64 [in_i] 64 [in_i] [facility] ([facility]) 5'4" Diastolic blood pressure 62 mm[Hg] 62 mm[Hg] [facility] ([facility]) Systolic blood pressure 108 mm[Hg] 108 mm[Hg] [facility] ([facility]) Body mass index (BMI) [Ratio] 28.3 kg/m2 28.3 k g/m2 [facility] ([facility]) Oxygen saturation in Arterial blood by [facility]ulse oximetry 98 % 98 % [facility] RM Air Body weight 160.00 [lb_av] 160.00 [lb_av] MEDEN T ([facility]) Body height 63 [in_i] 63 [in_i] [facility] ([facility]) 5'3" Heart rate 84 /min 84 /min [facility] ([facility]) Diastolic blood pressure 90 mm[Hg] 90 mm[Hg] [facility] ([facility]) Systolic blood pressure 140 mm[Hg] 140 mm[Hg] [facility] ([facility]) Body mass index (BMI) [Ratio] 29.6 kg/m2 29.6 k g/m2 [facility] ([facility]) Oxygen saturation in Arterial blood by Pulse oximetry 97 % 97 % [facility] ([facility]) RM Air Body weight 167.00 [lb_av] 167.00 [lb_av] MEDEN T ([facility]) Body height 63 [in_i] 63 [in_i] [facility]) 5'3" Heart rate 66 /min 66 /min [facility] ([facility]) Diastolic blood pressure 84 mm[Hg] 84 mm[Hg] [facility] ([facility]) Systolic blood pressure 140 mm[Hg] 140 mm[Hg] [facility] ([facility]) Body weight 72.746 kg 72.746 kg [facility] ([facility]) Body mass index (BMI) [Ratio] 27.5 kg/m2 27.5 k g/m2 [facility] ([facility]) Body weight 160.38 [lb_av] 160.38 [lb_av] [facility] Body height 64 [in_i] 64 [in_i] [facility] ([facility]) 5'4" Diastolic blood pressure 83 mm[Hg] 83 mm[Hg] [facility] ([facility]) Systolic blood pressure 152 mm[Hg] 152 mm[Hg] [facility] ([facility]) Body mass index (BMI) [Ratio] 28.7 kg/m2 28.7 k g/m2 [facility] ([facility]) Oxygen saturation in Arterial blood by Pulse oximetry 98 % 98 % [facility] ([facility]) Body weight 162.00 [lb_av] 162.00 [lb_av] [facility] Body height 63 [in_i] 63 [in_i] [facility] ([facility]) 5'3" Heart rate 96 /min 96 /min [facility] ([facility]) Diastolic blood pressure 60 mm[Hg] 60 mm[Hg] [facility] ([facility]) Systolic blood pressure 126 mm[Hg] 126 mm[Hg] [facility] ([facility]) Patient Treatment Plan of Care Planned Activity Planned Date Details Description Data Source (s) Losartan Potassium 25 MG Oral Tablet 06/05/2020 12:00:00 AM EST [facility] Famotidine 40 MG Oral Tablet 05/23/2020 12:00:00 AM EST [facility] Triamcinolone Acetonide 0.001 MG/MG Topical Ointment 12:00:00 AM [place] [id number] ([facility]) Triamcinolone Acetonide 0.001 MG/MG Topical Ointment 12:00:00 AM EST eCW1 ([facility]) Triamcinolone Acetonide 0.001 MG/MG Topical Ointment 12:00:00 AM EST eCW1 ([facility]) Triamcinolone Acetonide 0.001 MG/MG Topical Ointment 12:00:00 AM EST eCW1 ([facility]) Furosemide 20 MG Oral Tablet 07/24/2019 12:00:00 AM EST [facility] Metoprolol Tartrate 25 MG Oral Tablet 07/10/2019 12:00:00 AM EST [facility] Losartan Potassium 50 MG Oral Tablet [facility]
[2020-08-15 03:17] LABS: ABG BASE EXCESS 2.1 (-2.0-2.0); ABG HCO3 27.4 MEQ/L (22.0-26.0); ABG O2 SATURATION 99.6 % (95.0-99.0); ABG PARTIAL PRESSURE CO2 47.2 mmHg (35.0-45.0); ABG PARTIAL PRESSURE O2 147.9 mmHg (75.0-100.0); ABG STANDARD HCO3 26.4 MEQ/L (22.0-26.0); ABG TOTAL CO2 28.9 MEQ/L (23.0-31.0); ABG pH (ARTERIAL) 7.382 UNITS (7.350-7.450)
[2020-08-15 03:57] LABS: BASO % 0.1 % (0.0-1.0); EOS # 0.2 10^3/uL (0.0-0.5); EOS % 0.5 % (0.0-3.0); LYMPH # 0.9 10^3/uL (1.5-5.0); LYMPH % 2.9 % (24.0-44.0); MEAN CORPUSCULAR HEMOGLOBIN 26.4 pg (27.0-33.0); MEAN CORPUSCULAR HGB CONC 31.1 g/dl (32.0-36.5); MEAN CORPUSCULAR VOLUME 85.1 fl (80.0-96.0); MONO # 0.9 10^3/uL (0.0-0.8); MONO % 3.1 % (2.0-8.0); NEUTROPHILS # 26.6 10^3/uL (1.5-8.5); NEUTROPHILS % 90.5 % (36.0-66.0); PLATELET COUNT, AUTOMATED 253 10^3/uL (150-450); RED BLOOD COUNT 2.42 10^6/uL (4.00-5.40); WHITE BLOOD COUNT 29.4 10^3/uL (4.0-10.0)
[2020-08-15] MEDS ORDERED: GLUCAGON INJ 1MG VIAL SC PRN (04:00)
[2020-08-15] MEDS ORDERED: COMBIVENT RESPIMAT 100-20MCG INHALER 4GM INH SCH (04:00)
[2020-08-15] MEDS ORDERED: HumaLOG INSULIN (NovoLOG) PER UNIT SC SCH (04:00)
[2020-08-15] MEDS ORDERED: DEXTROSE 50% 50 ML SYRINGE IV PRN (04:00)
[2020-08-15] MEDS ORDERED: GLUCOSE 4GM CHEW TABLET PO PRN (04:00)
[2020-08-15] MEDS: NOREPINEPHRINE BITARTRATE 8 MG in D5W 492 ML IV SCH (04:02)
[2020-08-15] MEDS: methylPREDNISolone 125MG 2ML VIAL IV SCH ×3 (04:08→20:13)
[2020-08-15 04:11] LABS: HEMATOCRIT 20.6 % (36.0-47.0)
[2020-08-15 04:12] LABS: HEMOGLOBIN 6.4 g/dl (12.0-15.5)
[2020-08-15 04:33] LABS: ALBUMIN 1.1 GM/DL (3.2-5.2); C REACTIVE PROTEIN QUANTITATIV 23.1 MG/DL (0.00-0.30); CALCIUM LEVEL 7.3 MG/DL (8.8-10.2); CREATININE FOR GFR 3.96 MG/DL (0.55-1.30); GLOMERULAR FILTRATION RATE 11.8 (>39); PHOSPHORUS LEVEL 5.6 MG/DL (2.5-4.9); POTASSIUM SERUM 3.4 MEQ/L (3.5-5.1)
[2020-08-15] MEDS ORDERED: PERI12LIQ SS (04:44)
[2020-08-15] MEDS ORDERED: [UNRECOGNIZED DRUG - CODE] IV (04:44)
[2020-08-15] MEDS ORDERED: [UNRECOGNIZED DRUG - CODE] IV (04:44)
[2020-08-15] MEDS ORDERED: [UNRECOGNIZED DRUG - CODE] IV (04:44)
[2020-08-15] MEDS ORDERED: LUBROIN4 OU (04:44)
[2020-08-15] MEDS ORDERED: IPRA0.00 INH (04:44)
[2020-08-15] MEDS ORDERED: ZOSY1SOL5 IV (04:44)
[2020-08-15] MEDS ORDERED: PANT40IN4 IV (04:44)
[2020-08-15] MEDS ORDERED: ATOV750S PO (04:44)
[2020-08-15] MEDS ORDERED: HEPA500057 SC (04:44)
[2020-08-15] MEDS ORDERED: INSURSD SC (04:44)
[2020-08-15] MEDS: HumaLOG INSULIN (NovoLOG) PER UNIT SC SCH ×3 (06:00→17:43)
[2020-08-15] MEDS: MICAFUNGIN SODIUM 100 MG in D5W MINI-BAG PLUS 100 ML IV SCH (06:23)
[2020-08-15] MEDS: VANCOMYCIN ORAL SOL 250MG/5ML ORAL SYRINGE PO SCH ×3 (06:25→17:43)
[2020-08-15] MEDS: HEPARIN SOD (PORCINE) 5000UNITS/ML 1ML VIAL/SYRINGE SC SCH ×3 (06:26→22:45)
[2020-08-15] MEDS: LINEZOLID 600 MG in IV 1 EA IV SCH ×2 (06:36→18:30)
[2020-08-15] MEDS: IPRATROPIUM 0.5MG/ALBUTEROL 2.5MG INH SOL UD 3ML (DUONEB) NEB SCH ×4 (07:03→20:07)
[2020-08-15] MEDS: MIDAZOLAM INJ 2MG/2ML VIAL (J2250 PER 1MG) IV PRN ×4 (07:26→22:45)
[2020-08-15] MEDS: CHLORHEXIDINE GLUCONATE 0.12 % 15ML UDC (PERIDEX ORAL RINSE) MT SCH ×2 (07:56→20:13)
[2020-08-15] MEDS: PANTOPRAZOLE 40MG VIAL (C9113 PER 1) IV SCH (07:56)
[2020-08-15] MEDS: MORPHINE 2 MG/ML 1ML VIAL (J2270) IV PRN ×3 (07:57→20:12)
--- NOTE | 2020-08-15 08:12 | REP ---
INDICATION: respiratory failure. COMPARISON: Comparison chest x-ray 09 August 2020. TECHNIQUE: Portable upright AP chest radiograph. FINDINGS: Endotracheal tube is seen in good position at the level of the transverse aorta. Nasogastric tube enters the left upper quadrant of the abdomen. Bilateral central venous lines terminate in the expected location of the superior vena cava. There is extensive bilateral essentially diffuse interstitial lung disease with areas of patchy more confluent consolidation in the right perihilar region and in both lung bases. These findings are more pronounced than on the 09 August 2020 study consistent with progressive pneumonia. Heart is not enlarged. The aorta is tortuous as before.. IMPRESSION: Progressive bibasilar and right perihilar infiltrates and more pronounced diffuse interstitial lung disease when compared with the prior study.. <Electronically signed by Christiano Chris > 08/15/20 [id number]
[2020-08-15] MEDS ORDERED: propofoL 1,000 MG in IV 1 EA IV SCH (08:29)
[2020-08-15] MEDS ORDERED: PROPOFOL 1,000 MG/100 ML VIAL As Ordered ONE (08:40)
[2020-08-15 08:52] LABS: ABG BASE EXCESS 0.2 (-2.0-2.0); ABG HCO3 25.5 MEQ/L (22.0-26.0); ABG O2 SATURATION 92.6 % (95.0-99.0); ABG PARTIAL PRESSURE O2 66.6 mmHg (75.0-100.0); ABG STANDARD HCO3 24.6 MEQ/L (22.0-26.0); ABG TOTAL CO2 26.9 MEQ/L (23.0-31.0); ABG pH (ARTERIAL) 7.381 UNITS (7.350-7.450)
[2020-08-15] MEDS: PIPERACILLIN/TAZOBACTAM SOD 2.25 GM in D5W MINI-BAG PLUS 50 ML IV SCH ×2 (08:54→17:43)
[2020-08-15 10:01] LABS: BASO # 0.1 10^3/uL (0.0-0.2); BASO % 0.2 % (0.0-1.0); HEMATOCRIT 28.9 % (36.0-47.0); LYMPH # 0.2 10^3/uL (1.5-5.0); LYMPH % 0.7 % (24.0-44.0); MEAN CORPUSCULAR HEMOGLOBIN 28.9 pg (27.0-33.0); MEAN CORPUSCULAR HGB CONC 33.6 g/dl (32.0-36.5); MONO # 0.3 10^3/uL (0.0-0.8); NEUTROPHILS % 96.5 % (36.0-66.0); PLATELET COUNT, AUTOMATED 219 10^3/uL (150-450); RED BLOOD COUNT 3.36 10^6/uL (4.00-5.40); WHITE BLOOD COUNT 28.1 10^3/uL (4.0-10.0)
--- NOTE | 2020-08-15 10:02 | CCN ---
CRITICAL CARE NOTE DATE: 08/15/2020 I spent 15 minutes on the phone with her son, Edis Calero, phone number [phone]; updating him on her current clinical picture. He was a little surprised by her respiratory status. He thought she would be coming off the ventilator soon. I have explained that she still requires the ventilator and that she was actually coughing up quite a bit of blood and having issues with her respiratory status. I explained it may be because the effect of the steroids had worn off after they were discontinued at the other hospital and I have reinitiated those steroids. The initial thought from [facility] was that her clinically picture was secondary to sepsis. The patient did have some areas of clinical improvement at [facility] including a decrease in her white count, which is now 29.4, but still has a 91% neutrophilia. Had some improvement with her kidney function and actually had some urine production, but still remains uremic this morning. After an extensive update on her clinical picture, the patient's son states that he would proceed with tracheostomy if needed and all blood transfusions based on the physicians discretion and the ICU and that he wants her to be full code. He believes that is what she would have wanted and wants to give her every chance at this point in time. He understands the prognosis is extremely guarded, but wishes to have aggressive care. I will therefore continue aggressive measures. Plan is for dialysis today. I have already spoken with Dr. Bud Short. She is prepared to see the patient and prescribe dialysis.
--- NOTE | 2020-08-15 10:02 | CCN ---
CRITICAL CARE NOTE DATE: 08/15/2020 ADDITIONAL CRITICAL CARE TIME: 30 minutes. The patient had labile blood pressure and was found to be severely anemic having episodes of hemoptysis. If it was not for the degree of uremia that she was having, I would say that she may be able to go without dialysis; however, because of the uremia, I think dialysis is indicated. Will contact nephrology. Her blood pressure while she wakes can go up to 200 systolic. She is no longer requiring Levophed after she received one unit of blood. The second unit is currently being transfused. Was not able to get a hold of anyone for consent for the blood; however, it was deemed urgent because of hypotension and hemoptysis. She remains on mechanical ventilation. Will obtain an arterial blood gas this morning. Currently she is 90% on 0.60 FiO2 nowhere near where she needs to be for weaning. Her chest x-ray is worse than when she was in acute respiratory failure and intubated. She has severe protein malnourishment and continued metabolic acidosis likely from uremia. Overall remains critically ill. Critical care time was an additional 30 minutes; this excludes all procedures, coordination for treatment of anemia, renal failure, respiratory failure. She will have blood redrawn at 10:00.
[2020-08-15] MEDS ORDERED: LIDOCAINE 1% SDV 5ML VIAL SQ ONE (10:15)
[2020-08-15 10:23] LABS: HEMOGLOBIN 9.7 g/dl (12.0-15.5)
[2020-08-15] MEDS ORDERED: DARBEPOETIN 100 MCG/0.5 ML *DIALYSIS* SYRINGE (J0882) IV SCH (10:30)
[2020-08-15 10:43] LABS: ALBUMIN 1.1 GM/DL (3.2-5.2); BILIRUBIN,TOTAL 0.6 MG/DL (0.2-1.0); CALCIUM LEVEL 7.5 MG/DL (8.8-10.2); CREATININE FOR GFR 3.83 MG/DL (0.55-1.30); GLOMERULAR FILTRATION RATE 12.3 (>39); POTASSIUM SERUM 3.8 MEQ/L (3.5-5.1); TOTAL PROTEIN 4.3 GM/DL (6.4-8.2)
[2020-08-15] MEDS ORDERED: SODIUM CHLORIDE 0.9% 1000ML IV PRN (11:15)
--- NOTE | 2020-08-15 11:31 | HPE ---
HISTORY AND PHYSICAL DATE OF ADMISSION: 08/15/2020 CRITICAL CARE TIME: 1 hour and 37 minutes HISTORY OF PRESENT ILLNESS: I was called yesterday to accept this patient in transfer from [facility] and the patient arrived 13 hours after my acceptance this morning just before 2:00 a.m. Carrie's history is quite extensive and complicated as seen by her 33 page discharge summary from [facility]. In summary, this is a 75-year-old female that presented with altered mental status, hypotension, fever, thought to initially have urosepsis. She then had respiratory failure. On intubation she had evidence of some bloody sputum in conjunction acute kidney injury and proteinuria/hematuria raised the question of possible pulmonary renal syndrome. The patient was transferred to [facility] for consideration of plasmapheresis. Despite mild elevations in ANCAs with myeloperoxidase antibody being positive here, it was felt that this was not a pulmonary renal syndrome by the scalp specialist there. Anti- GBM was negative at [facility]. C-ANCA was unremarkable. P-ANCA was slightly elevated. Rheumatology felt that if she had this severe presentation of a pulmonary renal syndrome, she would likely have higher ANCA levels. She was monitored there, had bronchoalveolar lavage the day she presented. Serial lavages did not show any evidence for alveolar hemorrhage. The results of the cytology from the bronchoalveolar lavage showed reactive pneumocytes, histiocytes, benign bronchial cells. There did not appear to be any transbronchial biopsies or actual tissue obtained. It does not appear that she had a kidney biopsy either. It was felt that this was secondary to sepsis. She had an elevated procalcitonin. She was changed to linezolid and Zosyn. She did require CRRT the first day. However, due to increased urine output, no further dialysis was performed. Her last dialysis was reported on August 11. On verbal report from the outside institution the patient had greater than 600 mL output in the last 24 hours. She continued to have altered mental status and continued hypoxic respiratory failure. MRI of the brain there again showing multiple old infarcts consistent with her prior history of multiple CVA. On 08/14/2020 she was started on Micafungin because of steroid use and findings of Aiyana glabrata in sputum and urine. There was also aspergillus species in the sputum and because of her ongoing hypoxic respiratory failure this was initiated. Endotracheal tube was exchanged just prior to transfer on 08/14/2020 due to a cuff leak. They had stopped steroids as they felt this was not a vasculitis. Her last steroid dose appeared to be August 11. She has had excessive mucus and mucus plugging. On my arrival the patient is hypoxic. With movement she desaturates to 80% while on FiO2 of 0.60. CT angio was repeated on August 12 at [facility] which did not show any evidence of pulmonary embolism, considered with bilateral patchy consolidations, mostly ground glass with predominance in the bilateral lower lobes. Chest x-ray continues to worsen over time. Antibiotic regimen has been linezolid and Zosyn while at [facility] and then added Micafungin on 08/14/2020. For a short period of time the patient was on atovaquone for concern of possible PCP. However, the patient had only been on a few days of high dose Solu-Medrol secondary to the concern for vasculitis and therefore this was discontinued. About an hour after she was here she started to wake up some. Blood pressure had spiked due to increased arousal up to 200 systolic. At that time the patient had voluminous amounts of fresh blood through the endotracheal tube. Therefore it makes me question whether or not there is a cardiac component to her hemoptysis. PAST MEDICAL HISTORY: Obtained from the chart which includes: 1. History of multiple CVAs. 2. Rheumatoid arthritis. 3. Suspicion for occult malignancy, currently being worked up by Dr. Black. SPEP was normal during the fall 2019 evaluation. 4. Coronary artery disease status post stenting. 5. Hypercholesterolemia. 6. Anxiety and depression disorder. 7. Chronic kidney disease. 8. Reported COPD with active tobacco dependency, not clear that she is seeing a educational therapist. 9. Restless leg syndrome. 10. History of abdominal aortic aneurysm without intervention. 11. GERD. 12. History of chronic pain thought to be secondary to osteoarthritis. 13. Total abdominal hysterectomy. 14. Tonsillectomy. The remainder of the history is in the chart for review. I am unable to obtain any history at this point in time as the patient is intubated. Therefore review of systems unobtainable. PHYSICAL EXAMINATION: Vital signs: Temperature 97.1, blood pressure is 116/57, mean arterial pressure 76, pulse 87, respiratory rate 93% on 0.60 FiO2. General: The patient is sedated on mechanical ventilation but when awake is able to move extremities, not yet following commands. However, sedation is required to keep her stable. She has a cough reflex and she over-breathes the vent. HEENT: Pupils are fairly pinpoint but reactive. Sclerae is clear and anicteric. Mucous membranes are moist. Tongue is midline. Endotracheal tube is 21 at the lip, 8.0 endotracheal tube. Now with bright red blood in the tube. Neck is supple. No jugular deviation or mass. Lymph: No cervical, supraclavicular, or axillary adenopathy. Cardiac: Regular S1, S2 with frequent ectopy to the point where it is difficult to assess whether the patient has a pulse pressure variation to determine volume status from the arterial line as there is such frequent ectopy. The patient remains on Levophed, a very low dose, 1-2 mcg. Pulmonary: Diffuse rhonchi without diffuse wheeze. No prolongation in the expiratory phase. Abdomen: Soft, nontender, nondistended with large amounts of bilious secretions being suctioned from the OG tube, approximately 400 mL since her arrival in the past hour. Reportedly patient tolerating tube feeds at the other hospital. Extremities: No cyanosis or clubbing. Skin: Pale. Minimal healing petechial rash on the left foot. Some decubitus ulcerations underneath the ankles and sacrum. Please refer to nursing documentation. Musculoskeletal: Appears to move all extremities. Labs are pending. I ordered scvO2 in addition to a renal profile and CBC. Chest x-ray shows diffuse interstitial abnormalities. There has actually been progression since the last time she was here. There is more dense infiltrate, especially in the right middle lobe. This is comparing chest x-ray from now to 08/09. There is a left IJ in the left radial arterial line. Other diagnostic testing as mentioned above. ScvO2 is 88. Testing from her last hospitalization showed elevated kappa light chains and negative double stranded DNA, a positive myeloperoxidase antibody. The atypical P-ANCA was unremarkable here, mildly elevated at [facility]. Antiproteinase antibody was unremarkable here and a negative LAKESHA screen. Rheumatoid factor was left eye at [facility] with a normal CCP. IMPRESSION: Extremely difficult presentation of hypoxic respiratory failure with intermittent hemorrhage. Acute kidney injury on chronic kidney disease also complicating the picture. She does not yet have what I consider to be a formal diagnosis despite being transferred to a higher level medical center. They felt this was not a vasculitic process. They felt this was not diffuse alveolar hemorrhage based on their testing. Overall there is a variety of potential diagnoses and the differential remains wide. This could continue to be sepsis. The patient had leukocytosis, reported significant amounts of mucus. However, here all we are getting is fresh blood with history of recent UTI. The fact that she has had some recovery of her kidney function according [facility] makes a vasculitic syndrome of the kidneys less likely if this is true. Our laboratory testing is still pending. The patient has not had a kidney biopsy nor lung biopsy as of yet. Other atypical presentations of acute inflammatory pneumonias, acute interstitial pneumonias, or an acute exacerbation of rheumatoid lung could potentially present with this and diffuse alveolar damage which could precipitate intermittent alveolar hemorrhage. Therefore I have added back steroids. The chest x-ray is actually worse and I do not know if this is because steroids were stopped or if it is a natural progression of the disease. I still believe the possibility of a vasculitic process exists. 1. Respiratory failure, undetermined etiology, severe, hypoxic in nature. Patient requiring more oxygen than when she left despite reports that she seemed to be improving in [facility]. Differential includes pneumonia. Therefore she remains on very broad spectrum antibiotics with linezolid and Zosyn. She did have elevated procalcitonin levels. Therefore we will complete this course. She was also started on Micafungin on 08/14/2020. We will continue this. 2. Possible sepsis with leukocytosis thought to be possibly pneumonia versus a urinary tract infection. I do not believe this explains the entire clinical picture. She remains on antibiotics as mentioned above. ScvO2 was checked and is adequate. We will an obtain echocardiogram in the morning due to her persistent hypotension. However, upon awakening she actually became hypertensive so minimal sedation may affect her blood pressure more than actual ongoing shock. Her prior acidemia appears to be clearing. However, electrolyte panel is still pending. 3. Renal failure. Nephrology will be consulted for continuing management of her ongoing renal failure and evaluation of her now oliguric renal failure. 4. Altered mental status with history of multiple strokes. We will continue to monitor. Likely the encephalopathy is metabolic and hopefully will recover when sedation is lifted. 5. Severe leukocytosis with diarrhea. The patient actually had a rectal tube in place because of the severity of the diarrhea. She has not been on p.o. Vancomycin despite being on antibiotics. I have added this today. 6. History of bronchiectasis, at risk for atypical infection. 7. Elevated free kappa light chain. Possibly she has a plasma cell disorder. She will continue outpatient workup with Dr. Black for the consideration of an occult malignancy. 8. Protein malnourishment. We will initiate tube feeds as soon as she appears to be able to tolerate. Currently she is having high OG output. 9. Pressure ulcers. We will ensure skin protection and scheduled position changes. 10. DVT prophylaxis with Heparin. 11. GI prophylaxis with Protonix. 12. Neuro prophylaxis. I have ordered MPO boots and MOVE program which is mobilization of ventilated and critically ill patients to help prevent ICU weakness and neuropathy/myopathy. PROGNOSIS: Overall I believe her prognosis is extremely guarded because of her age, her multiple comorbidities, and the fact that her diagnosis remains yet undetermined. I am very concerned about a pneumonic process that is more inflammatory than infectious. If this is an acute interstitial pneumonia from a rheumatoid exacerbation, the likelihood of is high. If this is vasculitis despite [facility]'s evaluation and clinical judgment it is not, the patient remains at high risk of . If this is ongoing sepsis despite significant broad spectrum antibiotics, again prognosis remains extremely guarded. I will have discussion with the patient's son today. WHITNEY
[2020-08-15 12:04] LABS: APPEARANCE, URINE HAZY (CLEAR); BACTERIA, URINE AUTO NEGATIVE (NEGATIVE); BILIRUBIN, URINE AUTO NEGATIVE (NEGATIVE); BLOOD, URINE BLOOD 3+ (NEGATIVE); COLOR, URINE YELLOW (YELLOW); GLUCOSE, URINE (UA) AUTO NEGATIVE (NEGATIVE); KETONE, URINE AUTO NEGATIVE (NEGATIVE); LEUKOCYTE ESTERASE, URINE AUTO 1+ (NEGATIVE); NITRITE, URINE AUTO NEGATIVE (NEGATIVE); PROTEIN, URINE AUTO 1+ mg/dL (NEGATIVE); RBC, URINE AUTO 3 /HPF (0-3); SPECIFIC GRAVITY URINE AUTO 1.017 (1.002-1.035); SQUAMOUS EPITHELIAL CELL UR AU 0 /HPF (0-6); UROBILINOGEN, URINE AUTO 0.2 mg/dL (0.0-2.0); WBC, URINE AUTO 7 /HPF (0-3)
[2020-08-15] MEDS: propofoL 1,000 MG in IV 1 EA IV SCH ×3 (13:34→23:38)
[2020-08-15 15:06] LABS: MAGNESIUM LEVEL 1.7 MG/DL (1.8-2.4); PERCENT SATURATION 15.6 % (13.2-45.0)
--- NOTE | 2020-08-15 15:07 | CR ---
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 HISTORY OF PRESENT ILLNESS: Carrie Calero is not previously known to me. However, she was seen by my colleague, Dr. Franklin on her recent admission to [facility] from August 01 to August [id number]. The patient was initially admitted to [facility] on August 01 with altered mental status and was significantly hypoxic over the course of her hospitalization and developed a hemoptysis and ultimately needed to be intubated and ventilated. She also had concurrent, severe renal failure during the admission and did develop dialysis needs and was hemodialyzed and further workup revealed subnephrotic proteinuria along with hematuria and serologic studies revealed an elevated myeloperoxidase antibody titer. In view of concomitant ventilator dependent respiratory failure with bhupinder hemoptysis along with acute renal failure in the setting of hematuria, proteinuria and elevated MPO antibody, there was a high suspicion of pulmonary renal syndrome and the patient was transferred to [facility] on August 09 for consideration of plasmapheresis. In [place], reevaluation by the rheumatology service over there felt that her antibody titer was not sufficiently high enough to clinch a diagnosis of pulmonary renal syndrome. Additionally unfortunately, the patient did not undergo any tissue diagnosis for neither lung nor kidney (due to risk of the procedure). In [place], the patient did require CRRT but then had apparently increasing urine output and last dialysis was on August 11. Most recent renal panel shows blood urea nitrogen is significantly elevated at 118 and creatinine is just under 4. In [place], her steroids were discontinued and the patient was started on a mycafungin and broad speculum antimicrobials were continued as well. The patient is seen and examined by myself in the intensive care unit this morning. She continues to have significant FiO2 requirements presently on 60% and her urine output remains suboptimal. Of note, the patient did have IV contrast procedure on August 12 at [place] (CT angiogram). She is off of Levophed pressure support. Her clinical course was discussed at the bedside with the lead clinical research coordinator, Dr. Boone. PAST MEDICAL HISTORY AND PAST SURGICAL HISTORY: 1. History of multiple CVAs, rheumatoid arthritis, suspicion for occult malignancy being worked by operations trainer. SPEP and serum free light chains were recently normal. 2. Coronary artery disease, status post stenting. 3. Dyslipidemia. 4. Anxiety and depression. 5. CKD stage 3 with baseline creatinine of 1.5. 6. COPD. 7. Restless legs syndrome. 8. History of abdominal aortic aneurysm without intervention. 9. GERD. 10. Osteoarthritis. 11. Total abdominal hysterectomy. 12. Tonsillectomy. REVIEW OF SYSTEMS: Unable to obtain secondary to clinical condition. FAMILY HISTORY: Father of lung cancer at age 54, mother age 75 SOCIAL HISTORY: She is a chronic active smoker for 30 plus years. There is no reported drug or alcohol abuse per the chart. She uses a walker and cane at baseline and lives alone. ALLERGIES: No known drug allergies. HOME MEDICATIONS: Reviewed by myself. PHYSICAL EXAMINATION: Vital signs: Temperature 97.6, pulse 80, respiratory rate 20, blood pressure 101/51, saturating 95% on 70% FiO2. Urine output since she arrived is 585 mL. Gastric drainage total is 575 mL of coffee ground fluid. Weight by scale today is 75.4 kg. General: The patient is sedated with Propofol. She is on mechanical ventilation. Her pupils are reactive to light. Her sclera is clear. Her mucous membranes are somewhat dry. There is an endotracheal tube present and there is bright red blood noted throughout the tubing to the vent. Neck is supple. There is a tunneled hemodialysis catheter in the right chest wall. There is a nasogastric tube that is draining coffee ground fluid. Heart sounds are fairly regular, S1, S2. She is not presently on pressor support. There is 1+ edema diffusely. Respiratory: There are diffuse rhonchi. She is breathing above the vent. Abdomen: Soft and there is a rectal tube present with liquid stool. There is also a nasogastric tube and coffee ground fluid noted, at least 500 mL. Extremities: Peripheral pulses are palpable. There is diffusely 1+ edema. Genitourinary shows indwelling Lauren catheter. Skin is very pale. There is a petechial rash that is most prominent on her feet and also somewhat on the chest wall. Neurologic: She is sedated. LABORATORY DATA: Today's labs show sodium 146, potassium 3.8, bicarbonate 26, BUN 118, creatinine 3.8, CRP 23, albumin 1.1, hemoglobin 6.4, platelets 253. Urinalysis shows 1% protein, 3+ blood. Chest x-ray this morning: Progressive bibasilar and right perihilar infiltrates and diffuse interstitial lung disease. Her chest x-ray has worsened since she was last here on August 09. INPATIENT MEDICATIONS: 1. Her Levophed is on hold. 2. Propofol. 3. Zylox 600 mg IV q.12 hourly. 4. Mycafungin 100 mg IV daily. 5. Zosyn 2.25 gm IV q.8 hourly. 6. Aranesp 100 mcg with dialysis. 7. Heparin 5000 units subcu q.8 hourly. 8. Insulin per protocol. 9. Solu-Medrol 80 mg IV q.8 hourly. 10. Versed p.r.n. 11. Morphine p.r.n. 12. Protonix 40 mg IV daily. 13. Vancomycin 125 mg p.o. q.6 hourly. PROBLEMS: 1. Acute kidney injury on CKD, stage 3. Her baseline creatinine is 1.5. Her renal failure is possibly related to a pulmonary renal syndrome in the setting of hemoptysis and ventilator dependent respiratory failure and urine studies with subnephrotic proteinuria along with hematuria and elevated myeloperoxidase antibody titer and the patient does see rheumatology and hematology as an outpatient and was being worked up for malignancy versus vasculitis prior to all these acute issues. She was evaluated in [place] and was not felt to require plasmapheresis or further immunosuppression. Indeed, her steroids were held while she was there. I will rediscuss with Dr. Loja next week to see if kidney biopsy is a possibility especially if she remains hemodialysis dependent. She did have IV contrast exposure on August 12 but she now appears to be nonoliguric. Given that her blood urea nitrogen is almost 120 and the patient did have IV contrast very recently, I will dialyze her today mostly for clearance with very little fluid removal. She will receive heparin-free dialysis in view of severe anemia along with what appears to be coffee ground fluid draining from the NG tube and bhupinder blood in the endotracheal tube. I feel that IV steroids should continue for the time being. 2. Ventilator dependent respiratory failure. FiO2 was 60-80% this morning. We do not have an accurate CBC. I am only going to remove one liter with her dialysis treatment today because frankly she does not look very wet and also I do not want to keep her on the extreme dry side as I am hopeful for improving urine output renal recovery. She is on broad spectrum antimicrobials and she also continues on IV steroids for concern of underlying pulmonary vasculitic process. 3. Protein calorie malnutrition. Albumin is down to 1.1. The patient is having significant drainage from her NG tube and TPN orders are being written. 4. Severe anemia. The patient is receiving heparin free dialysis. She received two units packed red blood cell transfusion this morning. I am concerned about the fluid draining from her NG tube. She will receive Aranesp for dialysis but we will not give any IV iron until infectious issues have been ruled out. She is on GI prophylaxis with Protonix.
[2020-08-15] MEDS ORDERED: POTASSIUM CHLORIDE IV SCH (18:00)
[2020-08-15] MEDS ORDERED: CALCIUM GLUCONATE IV SCH (18:00)
[2020-08-15] MEDS ORDERED: [UNRECOGNIZED DRUG - OTHER] IV SCH (18:00)
[2020-08-16] VITALS (83 sets, daily range): BP systolic 59–203; BP diastolic 37–93; O2SAT 95–98
[2020-08-16] MEDS: VANCOMYCIN ORAL SOL 250MG/5ML ORAL SYRINGE PO SCH ×5 (00:15→23:42)
[2020-08-16] MEDS: HumaLOG INSULIN (NovoLOG) PER UNIT SC SCH ×5 (00:16→23:41)
[2020-08-16] MEDS: PIPERACILLIN/TAZOBACTAM SOD 2.25 GM in D5W MINI-BAG PLUS 50 ML IV SCH ×3 (01:22→16:44)
[2020-08-16] MEDS: MICAFUNGIN SODIUM 100 MG in D5W MINI-BAG PLUS 100 ML IV SCH (03:46)
[2020-08-16] MEDS: methylPREDNISolone 125MG 2ML VIAL IV SCH ×3 (03:47→20:46)
[2020-08-16] MEDS: MORPHINE 2 MG/ML 1ML VIAL (J2270) IV PRN ×5 (04:03→23:41)
[2020-08-16] MEDS: propofoL 1,000 MG in IV 1 EA IV SCH ×3 (04:46→12:38)
[2020-08-16 05:27] LABS: HEMATOCRIT 28.1 % (36.0-47.0); HEMOGLOBIN 9.2 g/dl (12.0-15.5); MEAN CORPUSCULAR HEMOGLOBIN 28.3 pg (27.0-33.0); MEAN CORPUSCULAR HGB CONC 32.7 g/dl (32.0-36.5); MEAN CORPUSCULAR VOLUME 86.5 fl (80.0-96.0); PLATELET COUNT, AUTOMATED 228 10^3/uL (150-450); RED BLOOD COUNT 3.25 10^6/uL (4.00-5.40)
[2020-08-16 05:34] LABS: WHITE BLOOD COUNT 33.2 10^3/uL (4.0-10.0)
[2020-08-16] MEDS: HEPARIN SOD (PORCINE) 5000UNITS/ML 1ML VIAL/SYRINGE SC SCH ×3 (05:38→23:42)
[2020-08-16 05:42] LABS: ALBUMIN 1.2 GM/DL (3.2-5.2); CALCIUM LEVEL 7.6 MG/DL (8.8-10.2); CREATININE FOR GFR 2.08 MG/DL (0.55-1.30); GLOMERULAR FILTRATION RATE 24.8 (>39); PHOSPHORUS LEVEL 3.3 MG/DL (2.5-4.9); POTASSIUM SERUM 3.5 MEQ/L (3.5-5.1)
[2020-08-16 05:52] LABS: ABG BASE EXCESS -1.7 (-2.0-2.0); ABG HCO3 23.2 MEQ/L (22.0-26.0); ABG O2 SATURATION 92.2 % (95.0-99.0); ABG PARTIAL PRESSURE CO2 39.4 mmHg (35.0-45.0); ABG PARTIAL PRESSURE O2 67.1 mmHg (75.0-100.0); ABG TOTAL CO2 24.4 MEQ/L (23.0-31.0); ABG pH (ARTERIAL) 7.387 UNITS (7.350-7.450)
[2020-08-16] MEDS: LINEZOLID 600 MG in IV 1 EA IV SCH ×2 (06:15→17:51)
[2020-08-16] MEDS: IPRATROPIUM 0.5MG/ALBUTEROL 2.5MG INH SOL UD 3ML (DUONEB) NEB SCH ×4 (07:56→19:43)
--- NOTE | 2020-08-16 08:05 | REP ---
INDICATION: respiratory failure. COMPARISON: Comparison study August 15, 2020. TECHNIQUE: Portable upright AP chest radiograph. FINDINGS: Endotracheal tube is seen in good position at the level of the transverse aorta. Bilateral central venous lines are again noted in place. A nasogastric tube enters the left upper quadrant and monitoring electrodes are noted. Extensive diffuse interstitial lung disease and patchy infiltrates persist. The areas of confluent infiltrate are in the bases and right perihilar region essentially unchanged from yesterday's radiograph.. Progression is evident when compared with the 09 August 2020 prior radiograph. IMPRESSION: Extensive interstitial lung disease and patchy areas of consolidation persist. <Electronically signed by Christiano Chris > 08/16/20 0802
[2020-08-16] MEDS: PANTOPRAZOLE 40MG VIAL (C9113 PER 1) IV SCH (08:10)
[2020-08-16] MEDS: MIDAZOLAM INJ 2MG/2ML VIAL (J2250 PER 1MG) IV PRN ×9 (08:11→20:47)
[2020-08-16] MEDS: CHLORHEXIDINE GLUCONATE 0.12 % 15ML UDC (PERIDEX ORAL RINSE) MT SCH ×2 (08:11→20:46)
[2020-08-16] MEDS ORDERED: MIDAZOLAM INJ 2MG/2ML VIAL (J2250 PER 1MG) IV ONE ×2 (08:59→09:05)
[2020-08-16] MEDS ORDERED: NS 500 ML IV SCH (10:00)
[2020-08-16] MEDS: NOREPINEPHRINE BITARTRATE 8 MG in D5W 492 ML IV SCH (10:41)
--- NOTE | 2020-08-16 10:43 | CCN ---
PULMONARY CRITICAL CARE NOTE DATE: 08/16/2020 Critical care time was 1 hour and 15 minutes. This excludes all procedures. SUBJECTIVE: Patient overnight has had labile blood pressures, occasionally off and on mild doses of Levophed. Still continues with poor urine output. Tolerated dialysis well yesterday. According to blood work, no urgent indication for dialysis at this point in time. Appreciate nephrology continuing to follow the patient, as she will likely need intermittent dialysis at their discretion. As far as her hypoxia, she is more hypoxic this morning. Oxygen requirements have increased. Because of this, I performed a bedside bronchoscopy with clearance of secretions and found left lower lobe abnormalities with a cottage cheese-like consistency. Chest x-ray continues to show diffuse interstitial markings. Endotracheal tube is in good place. No significant improvement when compared to yesterday. However, I do not believe it is any worse. At this point in time, it appears that her blood loss has stopped. Her hemoglobin is unchanged from post-transfusion hemoglobin yesterday. Patient remains critically ill with a questionable diagnosis. Concern for possible pulmonary renal syndrome, concern for possible acute interstitial lung disease, concern for ongoing infection. At this point in time, I have no infectious disease specialist hr business partner consultant or stock shaper hr business partner consultant; however, I will attempt to speak to them remotely about the case and get their input. Patient remains on linezolid which is estimated day #5, oral vancomycin which is day #2, micafungin which is day #3, and has had at least six days of Zosyn. PHYSICAL EXAMINATION: Temperature 98.6, pulse 91, respiratory rate 29, blood pressure 131/60 with a mean arterial pressure 87, oxygen saturation 95% on 0.75 FiO2. GENERAL: Sedated on mechanical ventilation, but does awake. Is not purposeful, but moves both arms and legs. Unfortunately, when sedation is lifted she becomes unstable with severe hypertension, systolic blood pressures over 200 and significant coughing, which provokes hemoptysis and hypoxemia, and therefore she has been kept with a light sedation. HEENT: Sclerae clear and anicteric. Pupils are 7 mm and reactive to light. No significant scleral edema. Tongue is midline, pink, without lesions. Neck is supple. No tracheal deviation or mass. There is a tunneled dialysis catheter on the right. There is a left internal jugular (IJ) without surrounding erythema or exudate. PULMONARY: There is a diffuse expiratory wheeze heard mostly on the left side. A few rhonchi on the right. There is some prolongation in the expiratory phase. CARDIAC: Regular S1, S2 without audible murmur, rub or gallop. Tachycardic with frequent premature atrial contractions (PACs). I do not auscultate any murmur, rub or gallop. ABDOMEN: Soft, nontender, nondistended. No hepatosplenomegaly, but still has approximately 150 mL of gastrointestinal (GI) output every two hours. I am waiting for this to settle down in order to start tube feeds. EXTREMITIES: No cyanosis or clubbing. There is minimal edema of the upper extremities and feet. SKIN: No new rashes or jaundice. There is healing petechial abnormalities on the dorsum of the feet bilaterally, heel pressure wound, which is bandaged and protected at this point in time. MUSCULOSKELETAL: Significant muscle weakness. No evidence of joint effusion or nodules. LABORATORY EVALUATION: Arterial blood gas shows a pH of 7.38, pCO2 of 40, PaO2 of 67 on 0.75 FiO2. Sodium 136, potassium 3.5, chloride 98, bicarbonate 28, BUN 48, creatinine 2.08. Anion gap is down to 10; however, her albumin is 1.2 this morning. White count is up to 33.2, likely from administration of steroids, hemoglobin at 9.2, hematocrit at 28.1, platelet count of 228. Chest x-ray, as mentioned above, shows diffuse increased intersitial markings, endotracheal tube in place. IMPRESSION: 1. Respiratory failure. Question whether this is pulmonary renal syndrome, acute interstitial lung disease, infectious process with or without concomitant pulmonary edema. I do have a suspicion of concomitant pulmonary edema based on exam and swollen airways. Pressure is soft. Echocardiogram is pending. I have added albumin to see if this will help with fluid management. If blood pressure improves, may consider a trial of diuretics. In the meantime, patient remains on broad spectrum antibiotics, antifungals, especially with a finding on bronchoscopic exam today. New cultures have been sent. Adult respiratory distress syndrome (ARDS) remains in the differential. I will discuss this case with infectious disease and rheumatology. At this point in time, there is no availability of inpatient consults. 2. Hypotension. Intermittent in nature. Trial of albumin. Blood pressures extremely labile. Can fluctuate from a mean arterial pressure (MAP) of 50 to a systolic blood pressure in the high 200s in a matter of minutes. Variable low dose Levophed is available if needed to sustain a mean arterial pressure of 65. It does not appear that she is in shock. Central venous oxygen saturation was normal yesterday. 3. Renal failure. Appreciate nephrology's input. Unclear etiology. Consideration of renal biopsy. 4. Possible sepsis. Remains on antibiotics, as mentioned above. No evidence of ongoing shock at this point in time. 5. Bronchiectasis with risk for atypical infection. 6. Protein malnourishment. 7. Pressure ulcers. 8. Deep venous thrombosis (DVT) prophylaxis with heparin. 9. Gastrointestinal (GI) prophylaxis with Protonix. 10. Neurological prophylaxis. MPO boots and physical therapy have been ordered. The patient's status remains very guarded. Updated the son in regards to her current clinical picture, along with the results of the bronchoscopy this morning.
--- NOTE | 2020-08-16 11:28 | IPN ---
NEPHROLOGY PROGRESS NOTE DATE: 08/16/2020 SUBJECTIVE: Ms. Calero was seen and examined this morning in the intensive care unit and 24 hour events were reviewed with the intensive care unit (ICU) nurse at the bedside. She underwent a four hour hemodialysis treatment yesterday. Unfortunately, she became hypotensive quite early on during her treatment and has been back on Levophed pressor support, currently running at 4 mcg. She has significant output from her nasogastric tube (with coffee-ground) this morning about 100 mL an hour since 7:00 a.m. She also continues to have liquid stool output to the rectal tube, although that has not recently been quantified. She has been afebrile. She is status post bronchoscopy this morning with Dr. Boone. Her urine output has been very poor, since she has been hypotensive and back on the pressor. She continues on total parenteral nutrition (TPN). Her hypernatremia has corrected. PHYSICAL EXAMINATION: VITAL SIGNS: Temperature 98.7, pulse 91, respiratory rate 25, blood pressure 108/50, saturating 91-95% on 70-80% FiO2 on the ventilator. INTAKE AND OUTPUT: Intake yesterday was 2.7 liters. Urine output was 700 mL yesterday, but overnight has been very poor with less than 100 mL since 8:00 p.m. last night. Gastric drainage through the nasogastric (NG) tube is 600 mL. Hemodialysis yesterday removed 200 mL. GENERAL: Patient is seen intubated and sedated. She is on mechanical ventilation. HEENT: Her pupils are reactive to light. Her sclerae is clear. There is endotracheal tube present with bright red blood noted throughout the tubing to the vent. Neck is supple. Jugular veins do not look elevated. There is a tunneled hemodialysis catheter in the right chest wall. There is a nasogastric tube that is draining coffee-ground fluid. HEART SOUNDS: Fairly regular. S1, S2, but are tachycardic. There is 1+ edema diffusely in all four extremities, mild generalized anasarcic appearance. RESPIRATORY: Coarse breath sounds bilaterally. She is breathing above the vent. ABDOMEN: Soft. There are bowel sounds. There is a rectal tube with thick, brown liquid stool. GENITOURINARY: There is a Lauren catheter with very minimal urine. NEUROLOGIC: She is sedated. EXTREMITIES: Diffuse edema, about 1+, consistent with generalized mild anasarcic appearance. LABORATORY DATA: White count 33, hemoglobin 9.2, platelets 228. Sodium 136, potassium 3.5, bicarbonate 28, BUN 48, creatinine 2.0 (after dialysis yesterday), phosphorus 3.3, albumin 1.2. Chest x-ray this morning shows extensive diffuse interstitial lung disease with patchy infiltrates, which is progressive as compared to her chest x-ray one week ago. INPATIENT MEDICATIONS: She continues on TPN. She continues on: - Levophed at 4 mcg presently - propofol - Zyvox - micafungin - Zosyn - Aranesp with dialysis - I added normal saline at 100 an hour for only five hours - Solu-Medrol 80 mg IV every 8 hours - heparin 5000 units subcutaneous every 8 hours - Versed as needed - I added midodrine 5 mg three times a day - Protonix 40 mg IV daily - vancomycin 125 mg by mouth every 6 hours PROBLEMS: 1. Acute oligoanuric renal failure superimposed on chronic kidney disease (CKD) stage III. Patient has a baseline creatinine of 1.5. Yesterday, she did have an improving urine output with about 700 mL. However, she has been hypotensive overnight and is back on a Levophed drip and her urine output has significantly deteriorated. She will be assessed for dialysis needs on a daily basis. Please see yesterday's note for discussion of etiology of her renal failure. We will discuss with interventional radiology after the weekend to see if the patient would be a candidate for a kidney biopsy for a definitive diagnosis. 2. Hypotension. Patient continues on broad spectrum antifungal and antibiotic coverage with micafungin, Zosyn and Zyvox. Her white count is elevated, but of course, she is on IV steroids. I am going to get a GI polymerase chain reaction (PCR). She is also pending an echocardiogram in view of persistent hypotension. To improve her oncotic pressure, I have ordered further doses of albumin every 8 hours and we will also give her midodrine. 3. Protein calorie malnutrition. Patient is having significant output from her nasogastric tube. She remains without tube feeds at this time. Albumin is ordered and TPN is ordered as well. Her hypernatremia has resolved. 4. Ventilator-dependent respiratory failure. Patient is status post bronchoscopy this morning. FiO2 ranges from 70-80%. We do not have an accurate central venous pressure (CVP). However, given her output, both to the rectal tube and the nasogastric tube, I do not think that her intravascular volume is high. We are going to give albumin to help with oncotic pressure in view of Levophed pressor support, but I am also going to give her 500 mL of normal saline. Her chest x-ray is not consistent with any sort of pulmonary edema issue. She has been intubated for around nine days now and most likely will require tracheostomy in the very near future.
[2020-08-16] MEDS: MIDODRINE 5 MG TAB PO SCH ×2 (11:38→16:00)
[2020-08-16] MEDS: propofoL 2,400 MG in IV 1 EA IV SCH (16:21)
[2020-08-16] MEDS ORDERED: AMINO AC/ELECTROLYTE/DEX/CALC 2,000 ML IV SCH (18:00)
[2020-08-17] VITALS (38 sets, daily range): BP systolic 98–196; BP diastolic 52–88; O2SAT 91–96
[2020-08-17] MEDS: MIDAZOLAM INJ 2MG/2ML VIAL (J2250 PER 1MG) IV PRN ×4 (00:11→14:15)
[2020-08-17] MEDS: PIPERACILLIN/TAZOBACTAM SOD 2.25 GM in D5W MINI-BAG PLUS 50 ML IV SCH ×3 (01:11→17:40)
[2020-08-17] MEDS: propofoL 2,400 MG in IV 1 EA IV SCH ×2 (01:11→11:24)
[2020-08-17] MEDS: MORPHINE 2 MG/ML 1ML VIAL (J2270) IV PRN ×5 (01:58→15:00)
[2020-08-17] MEDS: propofoL 1,000 MG in IV 1 EA IV SCH ×2 (02:16→21:07)
[2020-08-17] MEDS: NOREPINEPHRINE BITARTRATE 8 MG in D5W 492 ML IV SCH (03:28)
[2020-08-17] MEDS: methylPREDNISolone 125MG 2ML VIAL IV SCH ×3 (04:38→20:36)
[2020-08-17] MEDS: MICAFUNGIN SODIUM 100 MG in D5W MINI-BAG PLUS 100 ML IV SCH (04:39)
[2020-08-17] MEDS: LINEZOLID 600 MG in IV 1 EA IV SCH ×2 (05:05→18:26)
[2020-08-17] MEDS: VANCOMYCIN ORAL SOL 250MG/5ML ORAL SYRINGE PO SCH ×4 (05:05→23:51)
[2020-08-17] MEDS: HumaLOG INSULIN (NovoLOG) PER UNIT SC SCH ×4 (05:06→23:51)
[2020-08-17] MEDS: HEPARIN SOD (PORCINE) 5000UNITS/ML 1ML VIAL/SYRINGE SC SCH ×3 (05:06→20:37)
[2020-08-17 05:12] LABS: HEMATOCRIT 22.7 % (36.0-47.0); HEMOGLOBIN 7.4 g/dl (12.0-15.5); MEAN CORPUSCULAR HEMOGLOBIN 28.5 pg (27.0-33.0); MEAN CORPUSCULAR HGB CONC 32.6 g/dl (32.0-36.5); MEAN CORPUSCULAR VOLUME 87.3 fl (80.0-96.0); PLATELET COUNT, AUTOMATED 194 10^3/uL (150-450); WHITE BLOOD COUNT 28.7 10^3/uL (4.0-10.0)
[2020-08-17 05:41] LABS: CALCIUM LEVEL 7.7 MG/DL (8.8-10.2); CREATININE FOR GFR 2.97 MG/DL (0.55-1.30); GLOMERULAR FILTRATION RATE 16.4 (>39); PHOSPHORUS LEVEL 4.8 MG/DL (2.5-4.9); POTASSIUM SERUM 3.4 MEQ/L (3.5-5.1)
[2020-08-17 06:01] LABS: ABG O2 SATURATION 93.6 % (95.0-99.0); ABG PARTIAL PRESSURE CO2 44.6 mmHg (35.0-45.0); ABG PARTIAL PRESSURE O2 71.1 mmHg (75.0-100.0); ABG TOTAL CO2 23.3 MEQ/L (23.0-31.0)
[2020-08-17] MEDS ORDERED: propofoL 1,000 MG in IV 1 EA IV ONE (07:15)
[2020-08-17] MEDS: IPRATROPIUM 0.5MG/ALBUTEROL 2.5MG INH SOL UD 3ML (DUONEB) NEB SCH ×4 (07:32→20:43)
[2020-08-17] MEDS ORDERED: PROPOFOL 1,000 MG/100 ML VIAL As Ordered ONE (07:32)
--- NOTE | 2020-08-17 07:57 | REP ---
INDICATION: respiratory failure. COMPARISON: Comparison chest x-ray 16 August 2020. TECHNIQUE: Portable upright AP chest radiograph. FINDINGS: Endotracheal tube is seen in good position at the level of the transverse aorta. NG tube enters the left upper quadrant. Left internal jugular central venous catheter terminates in the expected location of superior vena cava. A right internal jugular tunneled catheter is also noted in place in the expected location of the SVC. Diffuse interstitial lung disease is again noted. There is some improvement in the right perihilar opacity. Increased markings persist in the bases bilaterally. No new area of consolidation is seen. . IMPRESSION: Improvement noted right perihilar region. Diffuse interstitial lung disease persists. No new infiltrate. Lines and catheters unchanged.. <Electronically signed by Christiano Chris > 08/17/20 [id number]
[2020-08-17] MEDS: MIDODRINE 5 MG TAB PO SCH ×4 (08:00→16:00)
[2020-08-17 08:46] LABS: MAGNESIUM LEVEL 1.7 MG/DL (1.8-2.4)
[2020-08-17] MEDS: PANTOPRAZOLE 40MG VIAL (C9113 PER 1) IV SCH (08:59)
[2020-08-17] MEDS: CHLORHEXIDINE GLUCONATE 0.12 % 15ML UDC (PERIDEX ORAL RINSE) MT SCH ×2 (08:59→20:37)
[2020-08-17] MEDS ORDERED: SODIUM CHLORIDE 0.9% INJ 10 ML SYR IV PRN (10:30)
[2020-08-17] MEDS ORDERED: REFRIGERATOR IV KEYS XX PRN (10:45)
[2020-08-17 10:51] LABS: INR 1.03; PROTHROMBIN TIME 13.7 SECONDS (12.5-14.3)
[2020-08-17 10:52] LABS: PARTIAL THROMBOPLASTIN TIME 32.1 SECONDS (24.2-38.5)
--- NOTE | 2020-08-17 11:09 | CCN ---
CRITICAL CARE NOTE DATE: 08/17/2020 CRITICAL CARE TIME: 1 hour and 7 minutes. This excludes all procedures. SUBJECTIVE: This a.m. the patient is more hyponatremic, more hypertensive, slightly more anemic without evidence of any recent hemoptysis. Ventilatory settings mostly unchanged. FiO2 remains at 0.65. Uremia worsening today, expecting dialysis. Discussed with nephrology the possibility of fluid removal as I believe maybe her anemia, hyponatremia may be secondary to volume overload. The patient has been receiving albumin. Her Midodrine was on hold due to hypertension yesterday. She is now off Levophed. Results of transthoracic echocardiogram are pending. Sputum cultures from BAL so far Gram stain has shown no organisms, fungal cultures pending. 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 Continues to have spontaneous movements when off sedation. OBJECTIVE: VITAL SIGNS: Temperature 97.3, pulse 92, respiratory rate 26, blood pressure is 119/56 with MAP of 80. When I was in the room systolic blood pressure was up to 150 with good arterial line reading. Oxygen saturation 96% on 0.65 FiO2. GENERAL: The patient is sedated, on mechanical ventilation. Moves arms and legs appropriately. HEENT: Sclerae clear, anicteric. Pupils are approximately 7 mm, reactive to light. Mucous membranes moist, endotracheal tube in place. NECK: There is a tunneled right dialysis catheter. There is a left IJ without surrounding erythema or exudate but the __ port is not functioning at this point in time. No supraclavicular, cervical or axillary adenopathy. No crepitus to the chest wall. Trachea is midline. PULMONARY: Diffuse rales at the bases, minimal rhonchi. There is a prolonged expiratory phase. CARDIAC: Distant S1, S2, tachycardic. Frequent sinus arrhythmia. I do not auscultate murmur, rub or gallop, JVP is elevated. There is doughy edema systemically bilaterally. ABDOMEN; Soft, nontender, non-distended. No discernible hepatosplenomegaly or mass except for concentrated hematoma over the anterior right upper quadrant just above the umbilicus. This appears to have been secondary to Heparin injection and is contained. No evidence of fungal infection under the pannus. EXTREMITIES: Without cyanosis, clubbing or edema. Small healing ankle decubitus on the right, currently bandaged. SKIN: Pale without new rash or jaundice. LABORATORY EVALUATION: Sodium 129 which is much lower than prior, glucose is 245 so this is not all secondary to hyperglycemia. Hypokalemia with potassium of 3.4. Chloride 92, bicarb 22, anion gap 15. BUN up to 76, creatinine 2.96. Hemoglobin 7.4, platelet count 194. White blood cell count 28.7 which is down today. Chest x-ray shows continued diffuse interstitial infiltrates without any significant progression of effusion or infiltrate. Endotracheal tube in good position. There is no evidence of pneumothorax. IMPRESSION: 1. Respiratory failure, likely multifactorial. Again, exact cause has not been identified. There is evidence of possible fungal infection, the patient remains on day 4 of Micafungin. As far as possible bacterial infection the patient did have significantly elevated calcitonin, therefore is on estimated day 6 of Linezolid and at least 7 days of Zosyn, prior to that was on a cephalosporin and Vancomycin here. Interstitial lung disease remains on the differential especially given the history prior to admission of abnormal chest CT with ground-glass abnormalities. There continues to be concern for vasculitis. The patient was having a rash prior to admission which was biopsied for concerns for vasculitis. Myeloperoxidase antibodies are positive, however, this is not diagnostic of one single disease. Differential remains wide and could include such things as microscopic polyangiitis. Antiglomerular basement membrane antibodies were negative at [facility]. C-ANCA was unremarkable; therefore do not believe this is Marilin's. At this point in time it is felt that it is too dangerous to perform lung biopsy. Renal biopsy should be considered along with risks and benefits in order to help identify what inflammatory process is occurring. The patient does seem to improve while on steroids. After a few days of steroids being removed the patient had recurrent hemoptysis. Will maintain on mechanical ventilation. The patient's son who represents the family and is updating the family and is the designated healthcare proxy has indicated that she would want everything done including tracheostomy. He understands in the next few days if there is not significant clinical improvement will consider consulting ENT for tracheostomy. 2. Hyponatremia. I believe this is most likely volume related. I believe she is volume overloaded. It was difficult to remove fluid previously due to lower blood pressure; blood pressures are much more elevated today. I have discussed with nephrology the possibility of fluid removal. 3. Anemia, possibly partially dilutional. Will continue to monitor for signs of bleeding. She has had no further signs of hemoptysis. It is still possible to have alveolar hemorrhage without evidence of bhupinder hemoptysis. 4. Hypertension. Depending on the fluid removal the patient may now actually need medication for hypertension. I do believe there is likelihood of hypertensive heart disease. Echocardiogram is pending. Previous echocardiogram from mid July showed diastolic dysfunction, grade 1. 5. Renal failure. Appreciate nephrology input. The patient has had hematuria and proteinuria. Unclear etiology, there is consideration of pulmonary renal syndrome versus Corinne's opinion that this was simply secondary to sepsis. 6. Hyperglycemia. I have added Levemir onto the patient's drug regimen. Likely steroid-induced. 7. Previously suspected UTI, likely adequately treated with the broad spectrum antibiotic she has already received. 8. Encephalopathy, unclear etiology. At this point in time the patient becomes too unstable when all sedation is lifted. Therefore, low level sedation is continued to provide adequate patient safety. 9. Protein malnourishment. The patient on albumin and TPN. Once OG tube has decreased output will consider tube feeds. At this point in time there is fairly high OG output. The patient is still having bowel movements. 10. GI prophylaxis with Protonix. 11. DVT prophylaxis with Heparin. 12. Neuro prophylaxis with MPO boots, patient enrolled in [facility] program with physical therapy. 13. Infection prevention. Will consider changing central line to subclavian. I do not want the patient to have a femoral line as this will likely increase risk of infection. Overall the patient's prognosis remains extremely guarded. Continues to have severe hypoxic respiratory failure with ongoing renal failure, hyperglycemia, anemia, labile blood pressures, and severe protein malnourishment. I do not expect the patient to survive this hospitalization.
--- NOTE | 2020-08-17 12:12 | ECHO ---
DATE OF PROCEDURE: 08/15/2020 Age: 75 Gender: Female REFERRING PROVIDER: Caden Boone DO. PATIENT LOCATION: Room 3219. REASON FOR STUDY: Sepsis. 2D MEASUREMENTS: IVS 1.2 cm LV 4.0 cm LVPW 1.1 cm LA 3.3 cm Aorta 3.0 cm IVC 2.1 cm DOPPLER MEASUREMENT Peak velocity across the aortic valve 1.6 m/s Peak velocity across the LVOT 1.0 m/s Mitral E 0.77 Mitral A 0.95 with a ratio of 0.8 Maximum tricuspid valve velocity 2.2 m/s 2D COMMENTS: 1. Normal left ventricular size, wall thickness, and normal global left ventricular systolic function. The estimated left ventricular systolic ejection fraction is 60 to 65%. 2. Normal left atrium. Normal right atrium and right ventricle. 3. The atrial septum appeared to be normal without evidence of defect or shunt. 4. Normal aortic root. 5. Trace pericardial effusion noted. No evidence of cardiac tamponade. 6. Mildly calcified aortic valve with normal leaflet excursion. Mildly calcified mitral annulus with normal appearing mitral valve leaflet motion. Normal tricuspid valve. The pulmonic valve and proximal pulmonary artery branches were not well visualized. 7. The inferior vena cava is mildly enlarged, central venous pressure is most likely elevated. DOPPLER: It detects trace tricuspid regurgitation. Calculated pulmonary artery systolic pressure is normal. There are some features of left ventricular diastolic dysfunction manifested by abnormal relaxation. IMPRESSION: 1. Normal global left ventricular systolic function. There are some features of left ventricular diastolic dysfunction manifested by abnormal relaxation. 2. Aortic valve sclerosis without stenosis or aortic regurgitation. 3. Mitral annulus calcification with trace mitral regurgitation. 4. Trace tricuspid regurgitation with a normal calculated pulmonary artery systolic pressure. 5. Trace pericardial effusion. MTDD
[2020-08-17] MEDS ORDERED: LIDOCAINE 1% MDV 20ML VIAL As Ordered ONE (12:32)
--- NOTE | 2020-08-17 12:56 | IPN ---
CRITICAL CARE PROGRESS NOTE DATE: 08/17/2020 SUBJECTIVE: Mrs. Calero is seen this morning on her bedside in the Intensive Care Unit. She remains on the ventilator and sedated. Nursing staff reports that her blood pressure has been quite labile and this morning it was high due to which her Midodrine dose was held, however it is now down to just above 100 mmHg systolic and Midodrine was given. She has been off Levophed since yesterday. She had minimal urine output with only 5 ml of urine for the last [address] Boone performed bronchoscopy and noticed fungating structure in her bronchi suggestive of fungal infection. There was no mass. She was also noticed to be volume overloaded with pulmonary alveolar congestion. In any event, she remains on the ventilator and she is also on antibiotics, antifungal and steroids due to her respiratory failure. She did have hemodialysis on Monday which she did not tolerate very well as she developed hypotension and required Levophed, only minimal fluid could be removed due to hypotension. PHYSICAL EXAMINATION: VITAL SIGNS: Her temperature is 98.6 degrees Fahrenheit, heart rate about 116 per minute and respiratory rate 30 per minute. Blood pressure is about 110/60 mmHg. HEENT: Head is atraumatic. Endotracheal and orogastric tubes are in place. HEART: Heart sounds are tachycardic and without a pericardial friction rub. LUNGS: Bilateral rhonchi. ABDOMEN: Soft and bowel sounds are hypoactive. EXTREMITIES: Without any cyanosis or clubbing. NEUROLOGIC: She is sedated. LABORATORY DATA: Today's labs shows a sodium of 129, potassium 3.4, CO2 22, BUN 76 and creatinine 2.97. Glucose 245 and calcium 7.7. Phosphorus is 4.8 and magnesium is 1.7. Albumin is 2.0. WBC count is 28.7, hemoglobin 7.4 and hematocrit 22.7, platelets are 194,000. Chest x-ray done this morning showed some improvement in right perihilar region. She has diffuse intersitial lung disease. PROBLEMS: 1. Oliguric acute renal failure. Patient has still minimal urine output. She was dialyzed on Monday and will plan to do some kind of renal replacement therapy today. In my opinion, she is not likely to tolerate regular hemodialysis and we will start with CRRT. I have discussed with Dr. Boone. The patient needs fluid removal due to her respiratory failure and she did not tolerate fluid removal on Monday and required pressors. She is already quite tachycardic and very unlikely to tolerate regular dialysis. CRRT orders are being written. Will try to remove about 50 ml of fluid per hour and see how she tolerates. 2. Respiratory failure with fungal infection. Patient is being treated with antibiotics and antifungal. In addition, she is also receiving steroids intravenously. There was a concern about possible vasculitis involving her lungs. Initially, a kidney biopsy was considered, however, the patient was then transferred to [place] where she was seen by Rheumatology and did not feel kidney biopsy was needed. At this point the patient is on the ventilator and I have discontinued with Interventional Radiology to consider doing a kidney biopsy if possible. 3. Anemia. Her anemia is slightly worse. At this point, would consider to transfuse her as needed. 4. Electrolytes. Patient has hyponatremia and hypokalemia. She is also borderline low magnesium and this will be all corrected with CRRT and TPN. I have adjusted her TPN formula. 5. Nutrition. Patient has been on TPN and her TPN orders are being written. Forty-eight minute of Critical Care Time spent on the bedside during which no procedures were performed.
[2020-08-17] MEDS: MIDAZOLAM HCL 100 MG in D5W 80 ML IV SCH (13:00)
--- NOTE | 2020-08-17 14:40 | REP ---
INDICATION: central line placement. COMPARISON: Comparison chest x-ray 6:57 a.m. on this date 08/17/2020. TECHNIQUE: Portable upright AP chest radiograph. FINDINGS: Endotracheal tube is seen in good position at the level of the transverse aorta. NG tube enters the left upper quadrant. A tunneled catheter is seen via the right internal jugular vein region with its tip projecting in the expected location of the SVC. Left IJ central venous catheter remains in place unchanged. There is no visible pneumothorax. A pattern of diffuse interstitial lung disease and bibasilar infiltrates persists unchanged from the earlier film.. IMPRESSION: Bilateral central venous lines and endotracheal and nasogastric tubes remain in place. Diffuse interstitial lung disease unchanged.. <Electronically signed by Christiano Chris > 08/17/20 [id number]
[2020-08-17] MEDS: hydrALAZINE 20MG/ML 1ML VIAL (J0360 PER 20MG) IV SCH ×2 (16:15→22:00)
--- NOTE | 2020-08-17 16:44 | RO ---
OPERATIVE NOTE DATE OF OPERATION: 08/16/2020 PREOPERATIVE DIAGNOSIS: Hypoxia with questionable mucous plugging. POSTOPERATIVE DIAGNOSIS: Hypoxia with questionable mucous plugging. PROCEDURE: Bronchoscopy. SURGEON: Caden Boone D.O. DECKHAND ENGINEER: None. ANESTHESIA: Patient on propofol and additional Versed using during the procedure. INFORMED CONSENT: The son had given me permission yesterday to perform all procedures necessary to sustain her life including CPR, central lines, bronchoscopy, and blood transfusions. DESCRIPTION OF PROCEDURE: The patient was in the supine position. An 8.[address] Time-out was performed with two patient identifiers identify correct site and correct procedure. Cetacaine spray was used to anesthetize the airway. Direct vision bronchoscope was then inserted into the endotracheal tube. There were minimal amounts of bloody mucous. These were suctioned. Airways were quite swollen. Elva was somewhat splayed. Right mainstem again with swollen airways. RB1 through 10 minimal amounts of mucous with some minimal amounts of blood without bhupinder hemorrhage. This airway was suctioned. No endobronchial lesions RB1 through 10. Left mainstem was also swollen. Left upper lobe without endobronchial lesion and the takeoff of the left lower lobe proximal to the superior basal segment, there was a large area of whitish-brown material adhered to the wall of the airway; parts of it looked similar to cottage cheese like material. I did perform a BAL of this area and sent this off for culture both aerobic, anaerobic, and fungus. After airways were suctioned, oxygen saturation improved. The patient had temporary hypertension. During the bronchoscopy, she had very labile blood pressure. Bronchoscope was removed. She was returned to mechanical ventilation. There were no episodes of significant desaturation during the procedure. No observed complications. Sample sent for culture as outlined above. WHITNEY
[2020-08-17] MEDS ORDERED: FAT EMULSION IV 20% 500 ML IV SCH (18:00)
[2020-08-17] MEDS ORDERED: SODIUM CHLORIDE IV SCH ×7 (18:00)
[2020-08-17] MEDS ORDERED: [UNRECOGNIZED DRUG - OTHER] IV SCH ×7 (18:00)
[2020-08-17] MEDS ORDERED: POTASSIUM CHLORIDE IV SCH ×7 (18:00)
[2020-08-17 18:40] LABS: CALCIUM LEVEL 7.7 MG/DL (8.8-10.2); CREATININE FOR GFR 2.06 MG/DL (0.55-1.30); GLOMERULAR FILTRATION RATE 25.1 (>39); MAGNESIUM LEVEL 2.1 MG/DL (1.8-2.4); PHOSPHORUS LEVEL 3.6 MG/DL (2.5-4.9); POTASSIUM SERUM 3.5 MEQ/L (3.5-5.1)
[2020-08-17 18:42] LABS: HEMATOCRIT 24.9 % (36.0-47.0); HEMOGLOBIN 8.1 g/dl (12.0-15.5); MEAN CORPUSCULAR HEMOGLOBIN 28.5 pg (27.0-33.0); MEAN CORPUSCULAR HGB CONC 32.5 g/dl (32.0-36.5); MEAN CORPUSCULAR VOLUME 87.7 fl (80.0-96.0); PLATELET COUNT, AUTOMATED 198 10^3/uL (150-450); RED BLOOD COUNT 2.84 10^6/uL (4.00-5.40); WHITE BLOOD COUNT 29.7 10^3/uL (4.0-10.0)
[2020-08-17] MEDS ORDERED: propofoL 1,000 MG in IV 1 EA IV SCH (19:30)
[2020-08-17] MEDS: KCL 20MEQ IN 100ML SWI (KRUN) 20 MEQ in IV 1 EA IV SCH ×4 (20:39→21:59)
[2020-08-17] MEDS: CALCIUM GLUCONATE 1,000 MG in NS 100 ML IV SCH ×2 (20:42→21:59)
[2020-08-17] MEDS: LEVEMIR (INSULIN DETEMIR) 1 UNITS/0.01ML SC SCH (21:06)
[2020-08-18] VITALS (39 sets, daily range): BP systolic 80–174; BP diastolic 46–86; O2SAT 91–95
[2020-08-18] MEDS: PIPERACILLIN/TAZOBACTAM SOD 2.25 GM in D5W MINI-BAG PLUS 50 ML IV SCH ×3 (01:33→17:25)
[2020-08-18] MEDS: propofoL 1,000 MG in IV 1 EA IV SCH ×4 (02:39→22:43)
[2020-08-18] MEDS: methylPREDNISolone 125MG 2ML VIAL IV SCH ×3 (04:00→20:19)
[2020-08-18] MEDS: hydrALAZINE 20MG/ML 1ML VIAL (J0360 PER 20MG) IV SCH ×4 (04:00→21:49)
[2020-08-18] MEDS: MICAFUNGIN SODIUM 100 MG in D5W MINI-BAG PLUS 100 ML IV SCH (04:25)
[2020-08-18 05:34] LABS: ABG BASE EXCESS -0.4 (-2.0-2.0); ABG HCO3 24.5 MEQ/L (22.0-26.0); ABG O2 SATURATION 91.4 % (95.0-99.0); ABG PARTIAL PRESSURE CO2 40.8 mmHg (35.0-45.0); ABG PARTIAL PRESSURE O2 60.6 mmHg (75.0-100.0); ABG STANDARD HCO3 24.1 MEQ/L (22.0-26.0); ABG TOTAL CO2 25.7 MEQ/L (23.0-31.0); ABG pH (ARTERIAL) 7.396 UNITS (7.350-7.450)
[2020-08-18 05:40] LABS: HEMATOCRIT 22.6 % (36.0-47.0); HEMOGLOBIN 7.5 g/dl (12.0-15.5); MEAN CORPUSCULAR HEMOGLOBIN 28.6 pg (27.0-33.0); MEAN CORPUSCULAR HGB CONC 33.2 g/dl (32.0-36.5); MEAN CORPUSCULAR VOLUME 86.3 fl (80.0-96.0); PLATELET COUNT, AUTOMATED 151 10^3/uL (150-450); RED BLOOD COUNT 2.62 10^6/uL (4.00-5.40); WHITE BLOOD COUNT 28.7 10^3/uL (4.0-10.0)
[2020-08-18] MEDS: VANCOMYCIN ORAL SOL 250MG/5ML ORAL SYRINGE PO SCH (05:47)
[2020-08-18] MEDS: HEPARIN SOD (PORCINE) 5000UNITS/ML 1ML VIAL/SYRINGE SC SCH ×3 (05:48→21:49)
[2020-08-18] MEDS: LINEZOLID 600 MG in IV 1 EA IV SCH ×2 (05:48→17:42)
[2020-08-18 06:20] LABS: CALCIUM LEVEL 7.7 MG/DL (8.8-10.2); CREATININE FOR GFR 1.23 MG/DL (0.55-1.30); GLOMERULAR FILTRATION RATE 45.4 (>39); MAGNESIUM LEVEL 2.2 MG/DL (1.8-2.4); PHOSPHORUS LEVEL 1.6 MG/DL (2.5-4.9); POTASSIUM SERUM 3.9 MEQ/L (3.5-5.1)
[2020-08-18] MEDS: MIDAZOLAM HCL 100 MG in D5W 80 ML IV SCH (06:25)
[2020-08-18] MEDS: HumaLOG INSULIN (NovoLOG) PER UNIT SC SCH ×3 (06:48→17:24)
[2020-08-18] MEDS ORDERED: CALCIUM GLUCONATE 1,000 MG, VIAL MATE ADAPTER 1 EACH in NS 100 ML IV ONE (07:00)
[2020-08-18] MEDS: IPRATROPIUM 0.5MG/ALBUTEROL 2.5MG INH SOL UD 3ML (DUONEB) NEB SCH ×4 (07:51→20:11)
--- NOTE | 2020-08-18 07:58 | REP ---
INDICATION: respiratory failure COMPARISON: 08/17/2020 TECHNIQUE: Portable AP view of the chest FINDINGS: Endotracheal tube at the kasey requires repositioning. Nasogastric tube courses below left hemidiaphragm in satisfactory position. Left IJ line with tip in the SVC. Double-lumen catheter with tip in the right atrium. Diffuse bilateral opacities along with suspected bibasilar atelectasis and possible layering effusions again noted and similar to prior examination. Differential diagnosis includes CHF and pneumonia. IMPRESSION: 1. Endotracheal tube requires repositioning. 2. Diffuse bilateral opacities as described above similar to prior examination. Differential diagnosis includes pneumonia and CHF/pulmonary edema. <Electronically signed by Raoul Henriquez > 08/18/20 [id number]
[2020-08-18] MEDS ORDERED: SODIUM PHOSPHATE INJ 30 MMOL in D5W 500 ML IV ONE (08:00)
[2020-08-18] MEDS: CHLORHEXIDINE GLUCONATE 0.12 % 15ML UDC (PERIDEX ORAL RINSE) MT SCH ×2 (09:25→20:34)
--- NOTE | 2020-08-18 09:36 | CCN ---
CRITICAL CARE NOTE DATE: 08/18/2020 CRITICAL CARE TIME: 1 hour and 35 minutes. This excludes all procedures. SUBJECTIVE: Overnight patient had transient atrial fibrillation that was rate controlled. No therapy was administered as this was likely secondary to her current clinical state. This was reported to me by nursing staff. Upon entering the room, the patient was in sinus tachycardia and reported self converted. Echocardiogram was reviewed and remarkably fairly normal except for an elevated central venous pressure. Patient remains on mechanical ventilation. Oxygen requirements have increased. She does have hypophosphatemia today and remains on CRRT. Steroids were reduced to 60 mg IV q.8. I did speak with an outside energy management specialist yesterday. He states this case is quite difficult, that with small levels of myeloperoxidase antibody there could potentially still be a pulmonary-renal syndrome. My suspicion is there is underlying microscopic polyangiitis as there is now evidence of some GI hemorrhage. The issue that complicates this picture is that she has a significant fungal pneumonia, and the immunosuppression required to control this disease would likely allow the fungal pneumonia to progress. At this point in time, we are continuing IV Solu-Medrol and micafungin in attempts to treat both diseases. White count has been trending down. Stool for C. difficile is negative. Therefore, I will discontinue the p.o. vancomycin. Patient remains on linezolid and Zosyn due to the initial suspicion of sepsis. She continues to be anemic likely from blood loss, GI, lung, and kidney. Remains hypertensive overnight. Therefore, I am discontinuing the Levophed that has been held and discontinue the midodrine. Patient has p.r.n. hydralazine for systolic blood pressures above 170. Currently at bedside systolic blood pressure is 120. On propofol and Versed for sedation. When sedation is lifted, she makes appropriate movements but does not follow commands. Of course, she is hypothermic as of yesterday. Warming blanket has been applied. OBJECTIVE: VITAL SIGNS: Temperature is 95.3 rectally. Pulse is 71. Respiratory rate is 24. Blood pressure is 125/59. Oxygen saturation is 91% on 0.7 FiO2. I's and O's yesterday: Net diuresis from CRRT was approximately 500 mL. Patient remains on PRVC with tidal volumes 420. FiO2 is 0.80. GENERAL: Sedated on mechanical ventilation. Moves extremities appropriately. HEENT: Sclera clear, nonicteric. There is no conjunctival injection. Pupils are 7 mm and reactive to light bilaterally. Tongue is midline. Endotracheal tube positioned at 22 at the lip. NECK: Supple. No tracheal deviation or mass. There is a right tunneled IJ dialysis catheter. There is a left triple lumen venous catheter in the internal jugular vein which was replaced yesterday. There is minimal hemorrhage from this site. There is no surrounding erythema or exudate. LYMPH: No cervical, supraclavicular, or axillary adenopathy. CARDIAC: Tachycardic, S1 and S2 without audible murmur, rub, or gallop. PMI is difficult to palpate. There is elevated JVP. CVP will be measured this morning. Patient continues to have extensive edema both in upper and lower extremities. PULMONARY: Bibasilar rales are present. Occasional rhonchi that clears with suctioning. There is no wheeze. There is a slight prolongation of the expiratory phase, and there is no dullness to percussion. ABDOMEN: Obese, soft, nontender. Mild hematoma that has not changed in size over the right upper epigastric area. EXTREMITIES: No cyanosis or clubbing. MPO boots are in place. Edema as mentioned above. There is a decubitus ulcer on the right ankle which is unchanged from yesterday. SKIN: Pale without rashes or jaundice. NEUROLOGIC: As mentioned above moves all extremities appropriately. Does not yet follow commands but becomes unstable when sedation is fully removed. There is no evidence of myoclonus or seizure activity. LABORATORY DATA: Laboratory evaluation shows a sodium of 135 which is improved from yesterday, potassium 3.9, chloride 102, bicarb 25, BUN 35, creatinine 1.23 with a white blood cell count of 28.7, hemoglobin 7.5, hematocrit 22.6 with a platelet count of 151. Arterial blood gas shows worsening PaO2 today with a pH of 7.39, pCO2 of 41, PaO2 of 61. Chest x-ray shows that the endotracheal tube is slightly deep. Continues to have persistent bilateral interstitial abnormalities without any new dense consolidation. No evidence of pneumothorax. Minimal blunting of the costophrenic angles bilaterally. Echocardiogram was reviewed as mentioned above. Gram stain does show continued fungal organism, waiting for speciation. IMPRESSION: 1. 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 Fungal pneumonia is being addressed with micafungin. There does not appear to be any invasive aspergillus even though there were minimal amounts of aspergillus species found on prior culture. There are no cysts or destructive lesions on CT. As far as the possible vasculitis, patient is on Solu-Medrol. At this point in time even if we were able to confirm the diagnosis of a vasculitic process, she would not be able to undergo extensive immunosuppression due to the underlying fungal pneumonia. Volume overload, CRRT slowly removing fluid. However, this will take some time and depends on her labile blood pressure. 2. Atrial fibrillation, intermittent. At this point in time would not fully anticoagulate due to her evidence of bleeding. She remains on DVT prophylaxis. Currently in sinus rhythm. 3. Renal failure. On CRRT. Managed by Nephrology. I appreciate their input. 4. Metabolic encephalopathy. At this point in time unable to remove sedation due to the severity of her hypoxia, and she becomes unstable when doing so. 5. Hypertension. I have discontinued Levophed and midodrine. Has p.r.n. hydralazine. Will continue to monitor for the significant fluctuations in her blood pressure. Is on a slight amount of propofol as this seems to help with sedation and hypertension. 6. Hypophosphatemia. To be replaced by Nephrology. 7. 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 On Protonix. Will increase that to b.i.d. 8. Leukocytosis. Remains on broad spectrum antibiotics due to questionable sepsis and the severity of illness. Will consider removing linezolid in the near future along with Zosyn. Patient did have elevated calcitonin levels at [place]. 9. Hyperglycemia. Despite being n.p.o. patient remains hyperglycemic. Added Levemir yesterday. Will slowly increase this and attempt to avoid hypoglycemia. 10. Anemia. I believe she likely has continued sources of blood loss. Will transfuse today. 11. Edema. Attempting slow fluid removal with CRRT. 12. GI prophylaxis has been increased as mentioned above. 13. DVT prophylaxis with heparin. 14. Neuro prophylaxis. MPO boots are in place. Physical therapy ordered, not performed yesterday because of elevated blood pressure. 15. ID monitoring. Left IJ was changed yesterday, 08/17. Critical care time as mentioned above. This excludes all procedures. I have discussed this case on a daily basis with the son. He expresses he understands the severity of her disease, but I do not believe he understands the likely prognosis. He wishes that all things be done to save her life, which we will continue doing including tracheostomy, blood transfusions, and any necessary critical procedure.
[2020-08-18] MEDS: PANTOPRAZOLE 40MG VIAL (C9113 PER 1) IV SCH ×2 (09:49→20:43)
--- NOTE | 2020-08-18 10:22 | RO ---
OPERATIVE NOTE DATE OF OPERATION: 08/17/2020 PREPROCEDURE DIAGNOSIS: Need for vascular access and antibiotics. POSTPROCEDURE DIAGNOSIS: Need for vascular access and antibiotics. PROCEDURE: Insertion of left subclavian central line. This was aborted and placement of a left internal jugular venous line. SURGEON: Rigo Interiano M.D. OUTREACH CLINICIAN: None. ANESTHESIA: DESCRIPTION OF PROCEDURE: The patient is sedated with propofol on the ventilator. The infraclavicular fossa was prepped and draped in the usual sterile fashion. The subclavian vein could not be found on multiple tries, although the subclavian artery was. Pressure was held on the subclavian artery. After doing multiple tries, I therefore decided to rewire the existing internal jugular venous line. It was prepped and draped in the usual sterile fashion and the catheter itself was cutoff at the hub. A guidewire was placed within the larger lumen and threaded into the catheter. It did not go all the way through the catheter. I therefore went through the catheter continuing to push upon the guidewire. At a certain point when the catheter was almost out, the guidewire threaded with the production of PVCs. I suspect the line was kinked rather than blocked. A triple lumen catheter was then placed by Seldinger technique over the wire and secured to the neck with two 3-0 silk sutures. A 3-0 silk U-stitch was also placed as she was bleeding. A chest x-ray was obtained, which showed the line to be in good place and there was no pneumothorax.
[2020-08-18] MEDS ORDERED: SODIUM CHLORIDE IV SCH ×6 (18:00)
[2020-08-18] MEDS ORDERED: [UNRECOGNIZED DRUG - OTHER] IV SCH ×6 (18:00)
[2020-08-18] MEDS ORDERED: POTASSIUM CHLORIDE IV SCH ×6 (18:00)
--- NOTE | 2020-08-18 18:00 | IPN ---
NEPHROLOGY PROGRESS NOTE DATE: 08/18/2020 SUBJECTIVE: Mrs. Calero is seen this morning at her bedside. She remains intubated and sedated. CRRT is in progress at her bedside. She is still oliguric. Nursing staff reports that blood pressure was somewhat soft and her sedation was adjusted. She is not on pressors at this time. Dr. Boone has ordered a blood transfusion this morning due to drop in her hemoglobin to 7.5 and hematocrit 22.6. PHYSICAL EXAMINATION: VITAL SIGNS: Her temperature is 96.8 degrees Fahrenheit, heart rate 78 per minute and respiratory rate 32 per minute. Blood pressure is between 90/54 and 113/61 mm of mercury during the last couple of hours. Oxygen saturation is 95% on 70% FiO2 on the ventilator. HEENT: Head is atraumatic. Endotracheal and orogastric tubes are in place. NECK: Neck veins are difficult to be assessed. HEART: Irregular in rhythm. LUNGS: Bilateral rhonchi and crepitations. She is quite tachypneic. ABDOMEN: Soft and bowel sounds are present. EXTREMITIES: No cyanosis or clubbing. She has peripheral edema on her lower extremities. NEUROLOGICAL: She is sedated at present. LABORATORY STUDIES: Today's labs show a white blood cell count of 28.7, hemoglobin 7.5 and hematocrit 22.6, platelet count 151. Blood gas this morning showed a pH of 7.39, pco2 of 40.8, pO2 60.6 and bicarbonate 24. Chemistries this morning showed sodium of 135, potassium 3.9, chloride 92, CO2 25, BUN 35 and creatinine 1.23. Glucose 219 and calcium 7.7. Ionized calcium is 4.6 and phosphorous 1.6. Serum albumin is 2.0 and magnesium 2.2. PROBLEMS: 1. Oliguric acute renal failure this is related to sepsis and she remains oliguric. She is still on CRRT due to hypertension and a requirement of fluid removal. We will continue with CRRT and orders are being renewed. 2. Septic shock - The patient is still somewhat hypertensive. She is not pressors at present. She has no urine output so far. She remains on antifungal and antibacterial antibiotics. 3. Respiratory and renal failure - The patient has respiratory failure which is appears to be related to volume overload, fungal infection in her lungs and possible vasculitis as she does have significant hemoptysis. Her renal failure also fails to be probably related to sepsis or a combination of sepsis and vasculitis. Initially there was a plan for kidney biopsy. However it was postponed as the patient was intubated and then she got transferred to [place]. There was a plan for possible plasma phoreses, however Rheumatology was consulted in the [facility] and plasma phoreses was not felt to be a necessity and the patient was transferred back. We feel that a tissue biopsy is likely to help to definitively rule out or rule in the potential of a vasculitis. I have discussed with Dr. Boone and she is in agreement for a kidney biopsy. I have discussed with the nursing staff and with Interventional Radiology and we will plan to do a kidney biopsy at her bedside tomorrow. Interventional Radiology did not want to do the biopsy, so I will perform a kidney biopsy tomorrow at her bedside. 4. Anemia Anemia has worsened and Dr. Boone has ordered a transfusion, and I agree with 2 units of packed red blood cells transfusion today. CBC will be checked again in the evening. 5. Nutrition - The patient is not tolerating enteral feedings and remains on TPN. Her TPN orders are being renewed. 6. Abnormal electrolytes - The patient had various abnormalities in her electrolytes which are mostly corrected with CRRT and TPN adjustments. We will continue to replace and adjust her electrolytes as needed and have made some adjustments today. Sixty-five minutes of critical care time spent during which no procedures were performed.
[2020-08-18 18:02] LABS: HEMATOCRIT 32.3 % (36.0-47.0); HEMOGLOBIN 10.7 g/dl (12.0-15.5); MEAN CORPUSCULAR HEMOGLOBIN 28.5 pg (27.0-33.0); MEAN CORPUSCULAR HGB CONC 33.1 g/dl (32.0-36.5); MEAN CORPUSCULAR VOLUME 86.1 fl (80.0-96.0); PLATELET COUNT, AUTOMATED 135 10^3/uL (150-450); RED BLOOD COUNT 3.75 10^6/uL (4.00-5.40)
[2020-08-18 18:04] LABS: WHITE BLOOD COUNT 31.8 10^3/uL (4.0-10.0)
[2020-08-18 18:27] LABS: BLOOD UREA NITROGEN 25 MG/DL (7-18); CALCIUM LEVEL 7.8 MG/DL (8.8-10.2); CARBON DIOXIDE LEVEL 26 MEQ/L (21-32); CHLORIDE LEVEL 103 MEQ/L (98-107); CREATININE FOR GFR 0.88 MG/DL (0.55-1.30); GLOMERULAR FILTRATION RATE > 60.0 (>39); GLUCOSE, FASTING 198 MG/DL (70-100); MAGNESIUM LEVEL 2.3 MG/DL (1.8-2.4); PHOSPHORUS LEVEL 2.8 MG/DL (2.5-4.9); POTASSIUM SERUM 4.3 MEQ/L (3.5-5.1); SODIUM LEVEL 137 MEQ/L (136-145)
[2020-08-18] MEDS ORDERED: CALCIUM GLUCONATE 1,000 MG in NS MINI-BAG PLUS 100 ML IV SCH (19:00)
[2020-08-18] MEDS: MORPHINE 2 MG/ML 1ML VIAL (J2270) IV PRN ×2 (20:29→22:42)
[2020-08-18] MEDS: CALCIUM GLUCONATE 1,000 MG, VIAL MATE ADAPTER 1 EACH in NS 100 ML IV SCH ×2 (20:34→21:55)
[2020-08-18] MEDS: LEVEMIR (INSULIN DETEMIR) 1 UNITS/0.01ML SC SCH (20:34)
[2020-08-18] MEDS: MIDAZOLAM INJ 2MG/2ML VIAL (J2250 PER 1MG) IV PRN (22:11)
[2020-08-19] VITALS (37 sets, daily range): BP systolic 85–241; BP diastolic 49–221
[2020-08-19] MEDS: HumaLOG INSULIN (NovoLOG) PER UNIT SC SCH ×4 (01:20→17:18)
[2020-08-19] MEDS: PIPERACILLIN/TAZOBACTAM SOD 2.25 GM in D5W MINI-BAG PLUS 50 ML IV SCH ×3 (01:20→08:22)
[2020-08-19] MEDS: MIDAZOLAM HCL 100 MG in D5W 80 ML IV SCH ×2 (01:58→20:45)
[2020-08-19] MEDS: propofoL 1,000 MG in IV 1 EA IV SCH ×5 (02:58→22:00)
[2020-08-19] MEDS: hydrALAZINE 20MG/ML 1ML VIAL (J0360 PER 20MG) IV SCH ×4 (03:54→21:25)
[2020-08-19] MEDS: MICAFUNGIN SODIUM 100 MG in D5W MINI-BAG PLUS 100 ML IV SCH (04:14)
[2020-08-19] MEDS: methylPREDNISolone 125MG 2ML VIAL IV SCH ×3 (04:14→20:07)
[2020-08-19] MEDS: LINEZOLID 600 MG in IV 1 EA IV SCH ×2 (05:59→17:19)
[2020-08-19] MEDS: HEPARIN SOD (PORCINE) 5000UNITS/ML 1ML VIAL/SYRINGE SC SCH ×3 (06:00→21:24)
[2020-08-19 06:03] LABS: ABG BASE EXCESS -1.9 (-2.0-2.0); ABG HCO3 23.1 MEQ/L (22.0-26.0); ABG O2 SATURATION 94.2 % (95.0-99.0); ABG PARTIAL PRESSURE O2 71.2 mmHg (75.0-100.0); ABG STANDARD HCO3 22.8 MEQ/L (22.0-26.0); ABG TOTAL CO2 24.3 MEQ/L (23.0-31.0); ABG pH (ARTERIAL) 7.379 UNITS (7.350-7.450)
[2020-08-19 06:15] LABS: HEMATOCRIT 32.8 % (36.0-47.0); HEMOGLOBIN 10.8 g/dl (12.0-15.5); MEAN CORPUSCULAR HEMOGLOBIN 28.3 pg (27.0-33.0); MEAN CORPUSCULAR HGB CONC 32.9 g/dl (32.0-36.5); MEAN CORPUSCULAR VOLUME 86.1 fl (80.0-96.0); PLATELET COUNT, AUTOMATED 106 10^3/uL (150-450); RED BLOOD COUNT 3.81 10^6/uL (4.00-5.40)
[2020-08-19 06:19] LABS: WHITE BLOOD COUNT 34.8 10^3/uL (4.0-10.0)
[2020-08-19 06:38] LABS: BLOOD UREA NITROGEN 22 MG/DL (7-18); CALCIUM LEVEL 7.7 MG/DL (8.8-10.2); CARBON DIOXIDE LEVEL 25 MEQ/L (21-32); CHLORIDE LEVEL 104 MEQ/L (98-107); CREATININE FOR GFR 0.71 MG/DL (0.55-1.30); GLOMERULAR FILTRATION RATE > 60.0 (>39); GLUCOSE, FASTING 204 MG/DL (70-100); MAGNESIUM LEVEL 2.4 MG/DL (1.8-2.4); PHOSPHORUS LEVEL 2.3 MG/DL (2.5-4.9); POTASSIUM SERUM 4.2 MEQ/L (3.5-5.1); SODIUM LEVEL 137 MEQ/L (136-145)
[2020-08-19 06:41] LABS: ALBUMIN 2.1 GM/DL (3.2-5.2); BLOOD UREA NITROGEN 22 MG/DL (7-18); CALCIUM LEVEL 7.7 MG/DL (8.8-10.2); CARBON DIOXIDE LEVEL 25 MEQ/L (21-32); CHLORIDE LEVEL 105 MEQ/L (98-107); CREATININE FOR GFR 0.73 MG/DL (0.55-1.30); GLOMERULAR FILTRATION RATE > 60.0 (>39); GLUCOSE, FASTING 200 MG/DL (70-100); PHOSPHORUS LEVEL 2.4 MG/DL (2.5-4.9); POTASSIUM SERUM 4.3 MEQ/L (3.5-5.1); SODIUM LEVEL 137 MEQ/L (136-145)
[2020-08-19 07:26] LABS: INR 0.98; PROTHROMBIN TIME 13.2 SECONDS (12.5-14.3)
[2020-08-19 07:27] LABS: PARTIAL THROMBOPLASTIN TIME 32.8 SECONDS (24.2-38.5)
[2020-08-19] MEDS: IPRATROPIUM 0.5MG/ALBUTEROL 2.5MG INH SOL UD 3ML (DUONEB) NEB SCH ×4 (07:28→19:49)
[2020-08-19] MEDS: CALCIUM GLUCONATE 1,000 MG, VIAL MATE ADAPTER 1 EACH in NS 100 ML IV SCH ×2 (07:40→08:25)
[2020-08-19] MEDS ORDERED: POTASSIUM PHOSPHATE INJ 15 MMOL in D5W 250 ML IV ONE (08:00)
[2020-08-19] MEDS: CHLORHEXIDINE GLUCONATE 0.12 % 15ML UDC (PERIDEX ORAL RINSE) MT SCH ×2 (08:06→21:25)
[2020-08-19] MEDS: PANTOPRAZOLE 40MG VIAL (C9113 PER 1) IV SCH ×2 (08:06→21:22)
--- NOTE | 2020-08-19 08:38 | REP ---
INDICATION: respiratory failure. COMPARISON: Comparison chest x-ray August 18, 2020. TECHNIQUE: Portable upright AP chest radiograph. FINDINGS: Bilateral internal jugular central venous lines terminating in the region of the SVC. Endotracheal tube is seen in good position at the level of the transverse aorta. Heart is not enlarged. A nasogastric tube enters the left upper quadrant. Interstitial lung disease persists heaviest in the bases. No new focal consolidation is seen.. IMPRESSION: Diffuse interstitial lung disease persists. Lines and catheters unchanged.. <Electronically signed by Christiano Chris > 08/19/20 [id number]
[2020-08-19] MEDS ORDERED: NOREPINEPHRINE BITARTRATE 8 MG in D5W 492 ML IV SCH (09:00)
[2020-08-19] MEDS ORDERED: NOREPINEPHRINE 4 MG/4 ML AMP As Ordered ONE (09:10)
[2020-08-19] MEDS: NOREPINEPHRINE BITARTRATE 16 MG in D5W 484 ML IV SCH ×3 (09:25→23:58)
[2020-08-19] MEDS ORDERED: SODIUM CHLORIDE 0.9% INJ 10 ML SYR IV PRN (10:00)
--- NOTE | 2020-08-19 10:01 | CCN ---
CRITICAL CARE NOTE DATE: 08/19/2020 CRITICAL CARE TIME: 1 hour and 32 minutes. This excludes all procedures. SUBJECTIVE: Patient's son was updated today on the patient's progress. He agrees with the renal biopsy. He states that were contemplating renal biopsy prior to her coming to the hospital. Overnight her blood pressure continues to be labile. No significant arrhythmias on telemetry. Remains on mechanical ventilation, high level of FiO2 requirement. Possibly small improvement in oxygenation based on blood gas and the ability to reduce the FiO2 down to 0.65. Remains on mechanical ventilation. Does awaken with lightening of sedation. Has had less OG output. Less than 100ml this morning since 6:00 a.m. After renal biopsy is performed will start tube feeds and see if she is able to tolerate these. I discontinued her Zosyn today as it has been estimated over 10 days of Zosyn without evidence of bacterial infection to treat at this point in time, and despite being on Zosyn, leukocytosis was worsening. Solu-Medrol is currently at 60 IV q.8. May be coincidental, but at the time that this was dropped from 80, her leukocytosis started to increase. She remains on micafungin for fungal pneumonia. No evidence of invasive aspergillosis. Fungal cultures still pending from the BAL from Monday. Patient has had some hypothermia overnight, had some oozing from her IJ site. Hemoglobin is at 10.8. Patient remains on CRRT. Still reportedly net positive over the past 24 hours but just barely. Remains on TPN. OBJECTIVE: VITAL SIGNS: Temperature 94.0, pulse 66, blood pressure 102/53 with a MAP of 75, oxygen saturation 98% on 0.70 FiO2. GENERAL: Patient sedated on mechanical ventilation but does awake and move arms appropriately when sedation is lifted. HEENT: Sclera clear, nonicteric. Pupils equal and reactive to light. Mucous membranes are moist without lesion. Tongue is midline. NECK: Left IJ without surrounding erythema or exudate but some minimal hemorrhage. Right hemodialysis catheter without surrounding erythema or exudate. PULMONARY: Diffuse rales bilaterally. There is a prolongation of the expiratory phase. CARDIAC: Tachycardic, S1 and S2 without audible murmur, rub, or gallop. No discernible elevated JVP. However, this is obscured by line placement. LYMPH: No cervical, supraclavicular, or axillary adenopathy. ABDOMEN: Soft, nontender, nondistended. No hepatosplenomegaly or masses. EXTREMITIES: No cyanosis or clubbing. Continues with edema. Patient has full body edema, more prominent in the arms and legs. SKIN: No new rashes. Petechial abnormalities on her khan. LABORATORY DATA: Laboratory evaluation shows a white blood cell count of 34.8, hemoglobin 10.8, hematocrit 32.8 with a platelet count down to 106. Sodium 137, potassium 4.3, chloride 105, bicarb 25, BUN 22, creatinine 0.73. Arterial blood gas 7.38, pCO2 40, PaO2 72. That was on an FiO2 of 0.70. A chest x-ray continues to have diffuse interstitial infiltrate. Endotracheal tube in good position. PT 13.2, INR 0.98, PTT 32.8. Phosphorus improved to 2.4 from 1.6 yesterday. IMPRESSION/PLAN: 1. Severe hypoxic respiratory failure, likely multifactorial, still suspect inflammatory disease, whether it is an interstitial disease from a connective tissue disorder or a vasculitis process. Myeloperoxidase antibodies are positive. She has had evidence of GI bleed, hematuria, and pulmonary hemorrhage. I believe microscopic polyangiitis amongst other vasculitic processes remain in the differential. Biopsy is tentatively scheduled for today. There are risks with proning a patient that is this hypoxic. There could be dislodging of the tube, , and hemodynamic instability. Without this information, however, it makes it difficult to treat the patient as additional immunosuppression in the face of possible fungal pneumonia without a confirmatory diagnosis would be difficult. 2. Renal failure. Greatly appreciate the excellent care provided by Dr. Short and colleagues. Patient remains on CRRT. 3. Intermittent atrial fibrillation. At this point in time not fully anticoagulated due to her ongoing evidence of hemorrhage and now relative thrombocytopenia. She will return to heparin DVT prophylaxis after biopsy. Currently heparin is being held for biopsy to decrease the risk of bleeding. 4. Metabolic encephalopathy. At this point in time due to the severity of her hypoxia, she becomes too unstable with removing sedation. Therefore, she remains on sedation. 5. Hypertension. Has very labile blood pressures. Actually blood pressure is slightly lower now. I will place on Levophed in anticipation that with more sedation and paralytics her blood pressure will likely be lower. There is no evidence of shock at this point in time. 6. Hypophosphatemia. Replaced by Nephrology and improving. 7. GI blood loss. On Protonix b.i.d. 8. Leukocytosis worsening. There is no indication for Zosyn at this point in time so this has been discontinued. Has been on this antibiotic for more than 10 days without evidence of bacterial infection. 9. Hyperglycemia. Levemir has been increased yesterday. 10. Anemia. At this point in time does not require blood transfusion. Will continue to monitor. 11. Edema. Thought to be secondary to severe protein malnourishment and hypoalbuminemia. Will continue attempts towards fluid removal with CRRT as long as blood pressure can tolerate. 12. GI prophylaxis with Protonix. 13. DVT prophylaxis to be returned with heparin. 14. Neuro prophylaxis with MPO boots. Physical therapy is ordered. However, patient has been too unstable in order to perform physical therapy. Hopefully by tomorrow physical therapy can be performed at least with passive range of motion. 15. Prognosis. Critical care attention to the severe hypoxic respiratory failure. Prognosis is extremely poor given the lack of improvement over a two week period. Patient's son was updated this morning. He continues to want to continue all forms of aggressive treatment. He is willing to proceed with tracheostomy. I am hoping to get the patient's oxygen requirements decreased prior to requiring tracheostomy. However, if the patient is unable to be extubated by the end of the week, tracheostomy early next week is likely to occur. Overall I believe her likelihood of is very high. Addendum: Another 20 minutes of coordinating critical care I was called to bedside as patient's dialysis catheter now has hemorrhage around the site. It was deemed by nephrology that the risk of biopsy outweighs the benefit at this point in time as she is more unstable. Blood pressures are again lower and requiring levophed. Because of recent recurrent transfusion I have given 1 unit of FFP. We applied surgacell to the area around the catheter and placed pressure bags. WHITNEY
[2020-08-19] MEDS: MORPHINE 2 MG/ML 1ML VIAL (J2270) IV PRN ×3 (11:47→23:02)
[2020-08-19] MEDS: MIDAZOLAM INJ 2MG/2ML VIAL (J2250 PER 1MG) IV PRN ×2 (15:10→20:06)
[2020-08-19] MEDS ORDERED: SODIUM CHLORIDE IV SCH ×7 (18:00)
[2020-08-19] MEDS ORDERED: [UNRECOGNIZED DRUG - OTHER] IV SCH ×7 (18:00)
[2020-08-19] MEDS ORDERED: POTASSIUM PHOSPHATE IV SCH ×7 (18:00)
[2020-08-19 18:20] LABS: HEMATOCRIT 27.8 % (36.0-47.0); HEMOGLOBIN 9.3 g/dl (12.0-15.5); MEAN CORPUSCULAR HEMOGLOBIN 28.8 pg (27.0-33.0); MEAN CORPUSCULAR HGB CONC 33.5 g/dl (32.0-36.5); MEAN CORPUSCULAR VOLUME 86.1 fl (80.0-96.0); RED BLOOD COUNT 3.23 10^6/uL (4.00-5.40)
[2020-08-19 18:24] LABS: PLATELET COUNT, AUTOMATED 78 10^3/uL (150-450)
[2020-08-19 18:36] LABS: BLOOD UREA NITROGEN 22 MG/DL (7-18); CARBON DIOXIDE LEVEL 26 MEQ/L (21-32); CHLORIDE LEVEL 104 MEQ/L (98-107); CREATININE FOR GFR 0.66 MG/DL (0.55-1.30); GLOMERULAR FILTRATION RATE > 60.0 (>39); GLUCOSE, FASTING 210 MG/DL (70-100); MAGNESIUM LEVEL 2.4 MG/DL (1.8-2.4); PHOSPHORUS LEVEL 2.8 MG/DL (2.5-4.9); POTASSIUM SERUM 4.6 MEQ/L (3.5-5.1); SODIUM LEVEL 135 MEQ/L (136-145)
--- NOTE | 2020-08-19 20:04 | IPN ---
NEPHROLOGY PROGRESS NOTE DATE: 08/15/2020 SUBJECTIVE: Mrs. Calero is seen this morning at her bedside in the Intensive Care Unit. She is hypotensive and Levophed is being initiated as her blood pressure has gone down to in the 80 mm of mercury. She remains on the ventilator and quite tachypneic with respiratory rate about up to 40 per minute. She is also hyperthermic and remains on the ventilator with 60% FiO2 with minimal urine output. CRRT is in progress at her bedside. PHYSICAL EXAMINATION: VITAL SIGNS: Temperature 95.4 degrees Fahrenheit, heart rate 86 per minute, respiratory rate up to 39 per minute, blood pressure 95/53 mm of mercury and oxygen saturation is 96%. HEENT: Head is atraumatic. Endotracheal and orogastric tubes are in place. NECK: A central line is also present in the left side of her neck. Neck veins are difficult to be assessed. CHEST: She has a dialysis in the right upper chest with some oozing of blood from the catheter exit site. HEART: Irregular and without a pericardial friction rub. LUNGS: Bilateral rhonchi and diminished breath sounds at dependent parts. ABDOMEN: Soft and bowel sounds are present. EXTREMITIES: Without any clubbing or cyanosis. Lower extremity edema is at least 2+. NEUROLOGICALLY: She is sedated and not able to respond at present. INTAKE AND OUTPUT: Intake and output records show a positive fluid balance of about 520 mL over the last 24 hours. LABORATORY STUDIES: Today's labs show a white blood cell count up to 34.8, hemoglobin 10.8 and hematocrit 32.8, platelet count only 106 today. This morning's labs show sodium of 137, potassium 4.3, chloride 105, CO2 25, BUN 22 and creatinine 0.73. Glucose 200 and calcium 7.7. Phosphorous is 2.4 and albumin is 2.1. PROBLEMS: 1. Oliguric acute renal failure related to septic shock she is still oliguric and remains on CRRT. Her electrolytes have improved and we will continue with the CRRT for now. The patient is still quite hypotensive and now in fact requiring pressors. She will not be able to tolerate regular dialysis. 2. Respiratory failure this is related to some volume overload and primary infection. She is being treated for fungal and bacterial infections. We are trying to improve her volume status, however unable to remove much fluid at this time due to low back pain. She is being placed on Levophed and we will continue our efforts to remove fluid as tolerated. 3. 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 At this point the kidney biopsy is not likely to change her management, and she is quite unstable to go through an invasive procedure with the risk of complications. I have discussed with Dr. Boone and also discussed with the patient's son over the phone. Once she is hemodynamically more stable, then certainly a diagnostic kidney biopsy can be considered. The patient's son reported that prior to this illness a diagnostic kidney biopsy was being considered as the patient did have a skin rash and other symptoms suggestive of possible vasculitis. She is already being treated with steroids, so a kidney biopsy is not likely to add much to her care at this point. 4. Anemia her anemia did improve after she got transfused 2 units of packed RBCs. 5. Nutrition she remains on TPN and her TPN orders are being written. Forty-two minutes of critical care time spent at the bedside during which no procedures were performed.
[2020-08-19] MEDS: CALCIUM GLUCONATE 1,000 MG in NS 100 ML IV SCH ×2 (20:07→21:22)
[2020-08-19 20:13] LABS: CARDIOLIPIN IGA ANTIBODY <9 APL U/mL (0-11); CARDIOLIPIN IGG ANTIBODY <9 GPL U/mL (0-14); CARDIOLIPIN IGM ANTIBODY <9 MPL U/mL (0-12)
[2020-08-19] MEDS: LEVEMIR (INSULIN DETEMIR) 1 UNITS/0.01ML SC SCH (21:24)
[2020-08-20] VITALS (45 sets, daily range): BP systolic 5–188; BP diastolic 44–89
[2020-08-20] MEDS: HumaLOG INSULIN (NovoLOG) PER UNIT SC SCH ×4 (00:01→17:21)
[2020-08-20] MEDS: MORPHINE 2 MG/ML 1ML VIAL (J2270) IV PRN ×5 (01:26→20:11)
[2020-08-20] MEDS: propofoL 1,000 MG in IV 1 EA IV SCH ×5 (03:21→19:20)
[2020-08-20] MEDS: MICAFUNGIN SODIUM 100 MG in D5W MINI-BAG PLUS 100 ML IV SCH (03:46)
[2020-08-20] MEDS: hydrALAZINE 20MG/ML 1ML VIAL (J0360 PER 20MG) IV SCH ×4 (03:47→21:04)
[2020-08-20] MEDS: methylPREDNISolone 125MG 2ML VIAL IV SCH ×3 (03:47→19:20)
[2020-08-20] MEDS: MIDAZOLAM HCL 100 MG in D5W 80 ML IV SCH ×2 (04:00→12:56)
[2020-08-20 05:48] LABS: ABG BASE EXCESS -1.6 (-2.0-2.0); ABG HCO3 23.2 MEQ/L (22.0-26.0); ABG O2 SATURATION 94.8 % (95.0-99.0); ABG PARTIAL PRESSURE CO2 39.3 mmHg (35.0-45.0); ABG PARTIAL PRESSURE O2 73.2 mmHg (75.0-100.0); ABG STANDARD HCO3 23.1 MEQ/L (22.0-26.0); ABG TOTAL CO2 24.4 MEQ/L (23.0-31.0); ABG pH (ARTERIAL) 7.389 UNITS (7.350-7.450)
[2020-08-20 05:54] LABS: HEMOGLOBIN 8.5 g/dl (12.0-15.5); MEAN CORPUSCULAR HEMOGLOBIN 28.7 pg (27.0-33.0); MEAN CORPUSCULAR HGB CONC 32.7 g/dl (32.0-36.5); MEAN CORPUSCULAR VOLUME 87.8 fl (80.0-96.0); RED BLOOD COUNT 2.96 10^6/uL (4.00-5.40)
[2020-08-20 05:55] LABS: PLATELET COUNT, AUTOMATED 75 10^3/uL (150-450); WHITE BLOOD COUNT 37.3 10^3/uL (4.0-10.0)
[2020-08-20 06:35] LABS: BLOOD UREA NITROGEN 26 MG/DL (7-18); CALCIUM LEVEL 7.7 MG/DL (8.8-10.2); CARBON DIOXIDE LEVEL 27 MEQ/L (21-32); CHLORIDE LEVEL 104 MEQ/L (98-107); CREATININE FOR GFR 0.66 MG/DL (0.55-1.30); GLOMERULAR FILTRATION RATE > 60.0 (>39); GLUCOSE, FASTING 168 MG/DL (70-100); MAGNESIUM LEVEL 2.3 MG/DL (1.8-2.4); PHOSPHORUS LEVEL 2.8 MG/DL (2.5-4.9); POTASSIUM SERUM 4.7 MEQ/L (3.5-5.1); SODIUM LEVEL 137 MEQ/L (136-145)
[2020-08-20] MEDS: LINEZOLID 600 MG in IV 1 EA IV SCH ×2 (06:57→17:22)
[2020-08-20] MEDS: HEPARIN SOD (PORCINE) 5000UNITS/ML 1ML VIAL/SYRINGE SC SCH (07:07)
[2020-08-20] MEDS: IPRATROPIUM 0.5MG/ALBUTEROL 2.5MG INH SOL UD 3ML (DUONEB) NEB SCH ×4 (07:19→19:46)
[2020-08-20] MEDS: CALCIUM GLUCONATE 1,000 MG, VIAL MATE ADAPTER 1 EACH in NS 100 ML IV SCH ×2 (07:26→08:29)
[2020-08-20] MEDS: CHLORHEXIDINE GLUCONATE 0.12 % 15ML UDC (PERIDEX ORAL RINSE) MT SCH ×2 (08:11→20:10)
[2020-08-20] MEDS: PANTOPRAZOLE 40MG VIAL (C9113 PER 1) IV SCH ×2 (08:11→20:11)
--- NOTE | 2020-08-20 08:12 | REP ---
INDICATION: respiratory failure COMPARISON: 08/19/2020 TECHNIQUE: Portable AP view of the chest FINDINGS: Endotracheal tube, nasogastric tube, left IJ line, and double-lumen dialysis catheter are in stable satisfactory position. Mediastinum and cardiac silhouette are stable. Lung warner demonstrate diffuse acute on chronic interstitial infiltrates and subtle airspace disease relatively unchanged. No obvious effusion. No pneumothorax. Skeletal structures intact. IMPRESSION: No significant change from prior examination. <Electronically signed by Raoul Henriquez > 08/20/20 [id number]
--- NOTE | 2020-08-20 09:34 | CCN ---
CRITICAL CARE NOTE DATE: 08/20/2020 CRITICAL CARE TIME: One hour and 25 minutes. SUBJECTIVE: Ms. Calero is a 75-year-old female who overnight had some short lived episodes of hypoxia. FiO2 was increased to 0.70; however, over the past four hours, her oxygen saturations have been 97% on this. I have, therefore, decreased it to 65% and plan on attempting to taper overnight. Remains on CRRT with no urine output. She is currently off Levophed. Arouses some, but with lightening of sedation; however, becomes very hypertensive and tachypneic and therefore, slightly unstable; therefore, a full sedation vacation was not performed today. She remains on Solu-Medrol, Linezolid, and micafungin. I am not convinced that Linezolid is treating anything at this point in time. We have had no evidence of bacterial infection. We will likely discontinue this in the next few days. The patient's oozing has stopped from the dialysis catheter, where I placed Surgicel around the area; however, there has been oozing from small areas of heparin injections. Heparin injections have been discontinued. The patient is on 30 mL/hour of tube feeds. Did have a residual of 200 in the middle of the night and then, they were held for a short period of time and restarted at 6 a.m. this morning. If she continues to do well, we will advance these. She does have bowel sounds on exam. OBJECTIVE: VITAL SIGNS: Pulse is 79, blood pressure 103/59, respiratory rate is 31, oxygen saturation is 97% on 0.70 FiO2. Temperature 96.1. INTAKE AND OUTPUT: Net negative 177. GENERAL: Tachypneic. Arouses when sedation is lifted. Minimal movement of the extremities, but no evidence of paralysis or seizure activity. HEENT: Sclerae clear, anicteric. Pupils equal and reactive to light. Mucous membranes are moist without lesions. NECK: Supple. Right IJ tunneled dialysis catheter. Left IJ replaced on Monday. No surrounding erythema or exudate of either of these lines. CARDIAC: Tachycardic S1, S2. Central venous pressure is measured at 8. Appears less edematous than yesterday. PULMONARY: Diffuses rales. No rhonchi or wheeze. There is some prolongation of expiratory phase. ABDOMEN: Soft, nontender, and nondistended with normoactive bowel sounds. There are multiple hematomas over the abdomen. EXTREMITIES: No cyanosis or clubbing. Edema is decreased from yesterday. LABORATORY DATA: Shows a sodium of 137, potassium 4.7, chloride 104, bicarb of 27, BUN of 26, creatinine of 0.66 with a glucose of 168. Hemoglobin is 8.5 with hematocrit of 26.0, platelet count of 75,000. White count remains elevated at 37.3. IMAGING DATA: Chest x-ray again shows diffuse interstitial markings. Endotracheal tube is in place and I do not believe it is any worse, but does not appear to have any significant improvement. IMPRESSION: 1. Hypoxic respiratory failure severe in nature with poor prognosis. Has evidence of fungal pneumonia. Likely has either an inflammatory interstitial lung disease or a vasculitic process. This still remains in question. Biopsy was to be attempted yesterday; however, the patient was unstable and had issues with bleeding. Still has tendency to have significant oozing; therefore, not the time to perform biopsy. It would be difficult to immunosuppress the patient anymore in the face of a fungal pneumonia. The patient may also have some pulmonary edema. Continuous renal replacement therapy (CRRT) is continuing to slowly allow some fluid removal, as long as her blood pressure is adequate. 2. Thrombocytopenia. Heparin is held. Given fresh frozen plasma (FFP) yesterday. Has normal coag studies. The patient has Christine and Yovany for deep vein thrombosis (DVT) prophylaxis. 3. Renal failure. Appreciate nephrology's management and continued care. 4. Labile blood pressure. Has p.r.n. hydralazine for blood pressures above 180. At this point in time, the patient is not requiring any vasopressive therapy. 5. Gastrointestinal (GI) prophylaxis on Protonix initiating tube feeds. 6. Anemia. At this point in time, no indication for transfusion, but hemoglobin has declined from yesterday. I suspect tomorrow, she may require another two units. Overall, the patient remains critically ill with multifactorial hypoxic respiratory failure. The patient's son was contacted this morning and updates were given. He continues to want aggressive care and would want to pursue tracheostomy. Will discuss this next week as it has been nearly two weeks since she has been intubated. At this point in time, however, with her bleeding tendency, this is not likely to be the optimal time for tracheostomy. Hopefully, this will improve over the next few days.
[2020-08-20] MEDS ORDERED: SODIUM CHLORIDE 0.9% INJ 10 ML SYR IV PRN (10:15)
--- NOTE | 2020-08-20 12:04 | CCN ---
CRITICAL CARE NOTE DATE: 08/20/2020 SUBJECTIVE: Mrs. Calero is seen this morning on her bedside in the Intensive Care Unit. She remains on the ventilator and is quite tachypneic with a respiratory rate up to 40 per minute. She has been hypotensive requiring Levophed. She is still not making any urine and remains on CRRT. The nursing staff reports that she has been tolerating NG-tube feeding only at about 30 ml/hr and also remains on TPN for nutritional support. Overall, fluid removal has been a problem due to hypotension and need for pressors even with CRRT. PHYSICAL EXAMINATION: VITAL SIGNS: Temperature is 95.7 degrees Fahrenheit, heart rate is 83 per minute and respiratory rate is 40 per minute. Blood pressure 100/65 mmHg and oxygen saturation 94% on 65% oxygen on the ventilator. HEAD AND NECK: Head is atraumatic. Neck is supple. JVD difficult to be assessed. CHEST: Perm-A-Cath on right upper chest is present which is currently being used for her CRRT. HEART: Irregular in rhythm. LUNGS: Bilateral rhonchi at dependent parts. ABDOMEN: Soft. Bowel sounds are present. EXTREMITIES: Without any cyanosis or clubbing. Peripheral edema is noticed on all four limbs. NEUROLOGIC: She remains sedated. LABORATORY DATA: Today's labs showed WBC up to 37.3, hemoglobin 8.5 and hematocrit 26.0. Platelets are 75,000. Sodium 137, potassium 4.7, CO2 27, BUN 26 and creatinine 0.66. Glucose 168 and calcium 7.7. Serum albumin is only 2.0. PROBLEMS: 1. Oliguric acute renal failure. Patient remains oliguric and requiring dialysis. She is currently being treated with CRRT on her bedside. 2. Septic shock. Patient remains hypertensive and requiring pressors. We are unable to remove much fluid due to worsening hypotension. Patient remains on antifungal and antibacterial antibiotics for her pulmonary infections. 3. Anemia and thrombocytopenia. She did receive 2 units of packed RBCs yesterday and anemia improved initially but gradually trending down again. Her thrombocytopenia is also getting worse. This is most likely related to sepsis and medications. 4. Respiratory failure. This is related to pneumonia and some volume overload. We are going to remove as much fluid as she can tolerate with CRRT. 5. Nutrition. She has been on TPN and now also receiving some NG-tube feedings. I am going cut down the TPN rate to 60 ml/hr and new TPN orders are being written. Forty-six minutes of critical care time spent during which no procedures were performed.
[2020-08-20] MEDS: MIDAZOLAM INJ 2MG/2ML VIAL (J2250 PER 1MG) IV PRN ×2 (12:53→17:36)
[2020-08-20 17:56] LABS: HEMATOCRIT 24.8 % (36.0-47.0); MEAN CORPUSCULAR HEMOGLOBIN 28.7 pg (27.0-33.0); MEAN CORPUSCULAR HGB CONC 32.3 g/dl (32.0-36.5); MEAN CORPUSCULAR VOLUME 88.9 fl (80.0-96.0); RED BLOOD COUNT 2.79 10^6/uL (4.00-5.40)
[2020-08-20] MEDS ORDERED: [UNRECOGNIZED DRUG - OTHER] IV SCH ×5 (18:00)
[2020-08-20] MEDS ORDERED: POTASSIUM PHOSPHATE IV SCH ×5 (18:00)
[2020-08-20] MEDS ORDERED: SODIUM CHLORIDE IV SCH ×5 (18:00)
[2020-08-20 18:04] LABS: PLATELET COUNT, AUTOMATED 77 10^3/uL (150-450); WHITE BLOOD COUNT 43.7 10^3/uL (4.0-10.0)
[2020-08-20 18:22] LABS: BLOOD UREA NITROGEN 28 MG/DL (7-18); CALCIUM LEVEL 8.1 MG/DL (8.8-10.2); CARBON DIOXIDE LEVEL 25 MEQ/L (21-32); CHLORIDE LEVEL 105 MEQ/L (98-107); CREATININE FOR GFR 0.59 MG/DL (0.55-1.30); GLOMERULAR FILTRATION RATE > 60.0 (>39); GLUCOSE, FASTING 203 MG/DL (70-100); MAGNESIUM LEVEL 2.5 MG/DL (1.8-2.4); PHOSPHORUS LEVEL 2.8 MG/DL (2.5-4.9); POTASSIUM SERUM 4.9 MEQ/L (3.5-5.1); SODIUM LEVEL 138 MEQ/L (136-145)
[2020-08-20] MEDS: CALCIUM GLUCONATE 1,000 MG in NS 100 ML IV SCH ×2 (19:20→20:10)
[2020-08-20] MEDS: LEVEMIR (INSULIN DETEMIR) 1 UNITS/0.01ML SC SCH (20:11)
[2020-08-21] VITALS (54 sets, daily range): BP systolic 92–182; BP diastolic 47–84; O2SAT 91
[2020-08-21] MEDS: MORPHINE 2 MG/ML 1ML VIAL (J2270) IV PRN (00:25)
[2020-08-21] MEDS: HumaLOG INSULIN (NovoLOG) PER UNIT SC SCH ×4 (00:26→18:03)
[2020-08-21] MEDS: propofoL 1,000 MG in IV 1 EA IV SCH ×5 (00:29→23:06)
[2020-08-21] MEDS: MIDAZOLAM INJ 2MG/2ML VIAL (J2250 PER 1MG) IV PRN ×3 (01:15→16:21)
[2020-08-21] MEDS ORDERED: fentaNYL 100 MCG/2 ML INJECTION (J3010) As Ordered ONE (02:01)
[2020-08-21] MEDS: fentaNYL 100 MCG/2 ML INJECTION (J3010) IV PRN ×6 (02:28→23:08)
[2020-08-21] MEDS: hydrALAZINE 20MG/ML 1ML VIAL (J0360 PER 20MG) IV SCH ×4 (04:00→22:00)
[2020-08-21] MEDS: MICAFUNGIN SODIUM 100 MG in D5W MINI-BAG PLUS 100 ML IV SCH (04:10)
[2020-08-21] MEDS: methylPREDNISolone 125MG 2ML VIAL IV SCH ×3 (04:10→22:13)
[2020-08-21] MEDS: NOREPINEPHRINE BITARTRATE 16 MG in D5W 484 ML IV SCH ×3 (04:14)
[2020-08-21 05:29] LABS: ABG BASE EXCESS 3.2 (-2.0-2.0); ABG O2 SATURATION 94.3 % (95.0-99.0); ABG PARTIAL PRESSURE CO2 37.8 mmHg (35.0-45.0); ABG STANDARD HCO3 27.3 MEQ/L (22.0-26.0); ABG TOTAL CO2 28.2 MEQ/L (23.0-31.0); ABG pH (ARTERIAL) 7.472 UNITS (7.350-7.450)
[2020-08-21] MEDS: LINEZOLID 600 MG in IV 1 EA IV SCH ×2 (05:32→18:02)
[2020-08-21 05:42] LABS: HEMATOCRIT 22.3 % (36.0-47.0); HEMOGLOBIN 7.1 g/dl (12.0-15.5); MEAN CORPUSCULAR HEMOGLOBIN 28.5 pg (27.0-33.0); MEAN CORPUSCULAR HGB CONC 31.8 g/dl (32.0-36.5); MEAN CORPUSCULAR VOLUME 89.6 fl (80.0-96.0); RED BLOOD COUNT 2.49 10^6/uL (4.00-5.40)
[2020-08-21] MEDS: MIDAZOLAM HCL 100 MG in D5W 80 ML IV SCH ×2 (05:43→22:13)
[2020-08-21 05:49] LABS: PLATELET COUNT, AUTOMATED 67 10^3/uL (150-450)
[2020-08-21 05:51] LABS: WHITE BLOOD COUNT 45.3 10^3/uL (4.0-10.0)
[2020-08-21 06:13] LABS: ALBUMIN 1.8 GM/DL (3.2-5.2); BLOOD UREA NITROGEN 26 MG/DL (7-18); CALCIUM LEVEL 7.3 MG/DL (8.8-10.2); CARBON DIOXIDE LEVEL 25 MEQ/L (21-32); CHLORIDE LEVEL 106 MEQ/L (98-107); GLOMERULAR FILTRATION RATE > 60.0 (>39); GLUCOSE, FASTING 152 MG/DL (70-100); MAGNESIUM LEVEL 2.3 MG/DL (1.8-2.4); PHOSPHORUS LEVEL 2.7 MG/DL (2.5-4.9); POTASSIUM SERUM 5.1 MEQ/L (3.5-5.1); SODIUM LEVEL 140 MEQ/L (136-145)
[2020-08-21] MEDS ORDERED: CALCIUM GLUCONATE 1,000 MG, VIAL MATE ADAPTER 1 EACH in NS 100 ML IV ONE ×2 (07:00→19:00)
[2020-08-21] MEDS: IPRATROPIUM 0.5MG/ALBUTEROL 2.5MG INH SOL UD 3ML (DUONEB) NEB SCH ×4 (07:47→20:20)
--- NOTE | 2020-08-21 08:08 | REP ---
INDICATION: respiratory failure. COMPARISON: Comparison portable chest x-ray August 20, 2020. TECHNIQUE: Portable upright AP chest radiograph. FINDINGS: Endotracheal tube is seen in good position at the level of the proximal clavicles. NG tube enters the left upper quadrant. Bilateral central venous lines are again noted in place unchanged in position. Diffuse interstitial lung disease persists essentially unchanged from yesterday's radiograph. No new infiltrate is seen.. IMPRESSION: Diffuse interstitial lung disease persists essentially unchanged. Lines and catheters as above.. <Electronically signed by Christiano Chris > 08/21/20 [id number]
[2020-08-21] MEDS: PANTOPRAZOLE 40MG VIAL (C9113 PER 1) IV SCH ×2 (09:10→22:14)
[2020-08-21] MEDS: CHLORHEXIDINE GLUCONATE 0.12 % 15ML UDC (PERIDEX ORAL RINSE) MT SCH ×2 (09:10→22:12)
[2020-08-21 10:49] LABS: INR 0.94; PROTHROMBIN TIME 12.8 SECONDS (12.5-14.3)
[2020-08-21 10:50] LABS: PARTIAL THROMBOPLASTIN TIME 28.1 SECONDS (24.2-38.5)
[2020-08-21 10:52] LABS: D-DIMER QUANT 2400.33 ng/ml (<500)
[2020-08-21] MEDS ORDERED: ACETAMINOPHEN *IV* 1,000 MG in IV 1 EA IV ONE (11:00)
[2020-08-21] MEDS ORDERED: SODIUM CHLORIDE 0.9% INJ 10 ML SYR IV PRN ×2 (11:30→15:15)
[2020-08-21] MEDS ORDERED: PIPERACILLIN/TAZOBACTAM SOD 3.375 GM in D5W MINI-BAG PLUS 50 ML IV SCH (11:45)
[2020-08-21] MEDS: VANCOMYCIN ORAL SOL 250MG/5ML ORAL SYRINGE PO SCH ×2 (12:48→18:02)
--- NOTE | 2020-08-21 13:10 | CCN ---
CRITICAL CARE NOTE DATE: 08/21/2020 SUBJECTIVE: Mrs. Calero is seen this morning on her bedside in the Intensive Care Unit. She remains on the ventilator and sedated. The nursing staff reports that her blood pressure has remained low and she is still on Levophed. The patient has minimal urine output and remains on CRRT therapy due to renal failure. She is currently being treated for fungal pneumonia, however has responded poorly to the treatment so far. PHYSICAL EXAMINATION: VITAL SIGNS: Temperature is 96.4 degrees Fahrenheit, heart rate is 78 per minute and respiratory rate 40 per minute, blood pressure 105/48 mmHg and oxygen saturation 98% on the ventilator with 65% FIO2. Intake and output records have been almost even with only minimal fluid removal of 207 ml yesterday. HEAD AND NECK: Head is atraumatic. Endotracheal and orogastric tubes are in place. Tube feeding has been on hold due to high residual volume. HEART: Irregular in rhythm. LUNGS: Bilateral rhonchi. ABDOMEN: Soft, bowel sounds are present. EXTREMITIES: Without any cyanosis or clubbing. Lower extremity edema is still 2+. NEUROLOGIC: She is sedated and on the ventilator at present. LABORATORY DATA: Today's labs showed a WBC count up to 45.3, hemoglobin 7.1 and hematocrit 22.3, platelets 67,000. Sodium 140, potassium is 5.1, CO2 25, BUN 26 and creatinine 0.5, glucose 152 and lactic acid level 2.0. Calcium is 7.3. Phosphorus is 2.7. Albumin 1.8. Her D-Dimer is 2400 and fibrinogen level is 600. INR is 0.94. PROBLEMS: 1. Septic shock. Patient remains on Levophed and not making any progress with antibiotics and antifungal treatment. She is being managed by Critical Care Team. 2. Oliguric acute renal failure related to sepsis. Patient is still oliguric and remains dialysis dependent. CRRT is in progress on the bedside. We reviewed the CRRT orders and adjustments made according to her electrolytes. 3. Respiratory failure and hypervolemia. Patient is hypervolemic and also requiring medications and intravenous nutrition requiring daily fluid removal. We will continue with the CRRT for daily fluid removal. 4. Nutrition. Patient did not tolerate tube feeding and remains on TPN. Her TPN orders are being renewed and adjusted according to the need. 5. Anemia and thrombocytopenia. Her platelets have leveled off and hemoglobin still dropped down to 7.1. She is likely to require further transfusion. I will defer to Critical Care Team to make a final decision. 6. Pneumonia. Patient remains on broad-spectrum antibiotics including Vancomycin and Zosyn in addition to antifungal Micafungin. So far, she has responded poorly. Her family needs to make a decision about continuity of aggressive care. Thirty-six minutes of Critical Care time spent during which no procedures were performed.
[2020-08-21] MEDS ORDERED: LIDOCAINE 1% MDV 20ML VIAL As Ordered ONE (13:31)
[2020-08-21] MEDS ORDERED: PIPERACILLIN/TAZOBACTAM SOD 4.5 GM in D5W MINI-BAG PLUS 50 ML IV ONE (14:00)
--- NOTE | 2020-08-21 14:43 | CCN ---
CRITICAL CARE NOTE DATE: 08/21/2020 SUBJECTIVE: Patient was seen and examined this morning during bedside rounds. Overnight patient was noted to have worsening tachypnea as well as increased episodes of vent dyssynchrony. She is on Versed drip at 6 mg an hour for sedation as well as propofol, and overnight she did receive additional 2 mg p.r.n. of Versed as well as morphine with minimal improvement. She was, therefore, given p.r.n. Fentanyl and additional Versed which did improve her respiratory rate. She is still tachypneic, however, this morning. She does also appear more uncomfortable this morning. Patient has not been febrile, but she has been hypothermic and was on a warming blanket overnight. She also has intermittently been on Levophed for blood pressure support. This morning she has been requiring increasing doses of the Levophed than previous as initially she was only on intermittently 2 to 4 mcg pr hour and has been up to 6 or 8 mcg. Patient has also been noted to have difficulty tolerating tube feeds which were initiated yesterday. Later in the evening yesterday, she had significant residuals, and the tube feeds were discontinued. She does have bowel movements and had one overnight that was foul smelling reportedly and diarrhea. OBJECTIVE: VITAL SIGNS: Temperature 96.6, pulse 88, respirations 34 to 40, blood pressure 151/67, O2 sat 95% on 65% FiO2. Ins 4 liters, out 4.5 liters. GENERAL: Patient is intubated and sedated. She is tachypneic and has minimal withdrawal to painful stimuli. HEENT: Normocephalic/atraumatic. Pupils are small and sluggishly reactive to light. There are moist mucous membranes noted. NECK: Supple. Trachea is midline. There is a right IJ tunneled dialysis catheter with some dried blood around the gauze and insertion site. There is a left IJ in place as well with some dried blood around the dressing. CARDIAC: Regular rate and rhythm. Normal S1 and S2. Unable to clearly auscultate any murmurs. PULMONARY: There is bilateral fine rales noted. There is no significant rhonchi or wheeze. ABDOMEN: Obese, soft, nontender, nondistended. There are areas of ecchymosis over the abdomen. EXTREMITIES: There is +1-2 pitting edema bilaterally in the lower extremities as well as pitting edema in the upper extremities, although reportedly decreased. LABORATORY DATA: WBC increased to 45.3, hemoglobin decreasing to 7.1, platelets 67. Chemistry: Sodium 140, potassium 5.1, chloride 10, bicarb 25, BUN 26, creatinine 0.50, glucose 152, albumin 1.8, ionized calcium 4.5, phosphorus 2.7, mag 2.3, lactic acid 2.0. PTT 32.5. ABG: pH 7.472, pCO2 37.8, pO2 66. IMAGING: Chest x-ray this morning shows some diffuse interstitial markings. The previously seen right mid lung almost mass-like lesion a few days ago appears somewhat improved. There is a questionable cavity air-space lesion in that area. There are small bilateral pleural effusions. There is endotracheal tube in place and in satisfactory position. There is an OG tube in place. There is a right IJ tunneled catheter and a left IJ triple lumen catheter in place. ASSESSMENT AND PLAN: Ms. Calero is a 75-year-old female with a past medical history of hypertension, hyperlipidemia, CKD, and previous CVA who presented initially with complaints of altered mental status and acute hypoxemic respiratory failure. Patient had initially presented to the hospital in the beginning of August. During that admission, patient had altered mental status as well as fever and sepsis though initially to be in the setting of urosepsis. She also had acute hypoxemic respiratory failure with evidence of some pulmonary hemorrhage as well as worsening TONEY on CKD. Patient was intubated and placed on mechanical ventilation, and there was a possibility of a pulmonary renal syndrome. She was started on high doses of Solu-Medrol and transferred to [facility] for the possibility of plasmapheresis. She did have mild elevations in her P-ANCA in particular with the myeloperoxidase antibody. However, her anti-GBM and her C-ANCA was negative. At the facility, patient did require dialysis, and she did also have a bronchoscopy performed which did not show evidence of diffuse alveolar hemorrhage but was positive for Aspergillus as well as reportedly Aiyana glabrata in her sputum and urine. Patient was discontinued from the steroids as their rheumatology did not think that she actually did have a vasculitis. She was, therefore, transferred back to [facility] on 08/15/2020. Upon her transfer here, she did have an episode of hemorrhage. She also had worsening of urine output and had been started on hemodialysis again with CVVHD. Patient's steroids were restarted with Solu-Medrol, and she was continued on antibiotics and antifungal treatment as well. 1. Neuro: Patient is currently intubated and sedated. She had presented initially with altered mental status which was thought to be encephalopathy, likely multifactorial due to various metabolic insults including sepsis and renal failure. Patient continues to require high amounts of sedation as she has significant vent desynchrony with weaning of sedation and desaturation. Overnight she appears to be more dyssynchronous and uncomfortable with the ventilator and had required additional p.r.n. doses of Versed as well as Fentanyl. Continue with Versed drip and propofol drip for sedation with p.r.n. Versed as needed for agitation and Fentanyl p.r.n. for analgesia. Will discontinue the p.r.n. morphine. Patient's urine is green colored, likely secondary to her propofol. Will need to closely monitor for propofol infusion syndrome as she has been intubated now for more than two weeks and on sedation. Patient's mental status is somewhat difficult to assess. She did have an MRI supposedly at [facility] which had shown evidence of prior infarct with her previous history of CVA but no acute findings. 2. Cardiac: Patient has a history of labile blood pressure during her admission. At times she will be hypotensive and other times will require Levophed for blood pressure support. More recently, she has been requiring Levophed at increasing dosage to maintain her MAP above 65. She did have a lactic acid checked today which was normal. Will continue Levophed to maintain MAP above 65. If she is requiring increasing amounts of Levophed, then would start vasopressor for blood pressure support. Patient has a left IJ triple lumen for vascular access. She has a tunneled dialysis catheter on the right for hemodialysis access. Given her edema, she has difficulty getting other peripheral access, and so she will need a PICC line placed for vascular access. 3. Pulm: Patient with acute hypoxemic respiratory failure with the possibility of a pulmonary renal syndrome. She is still intubated on mechanical ventilation. There was also a possibility of a fungal pneumonia given her previous bronchoscopy cultures and sputum cultures at the outside hospital showing Aspergillus as well as Aiyana glabrata. Patient continues to require significant amounts of FiO2. Her x-ray does continue to show some diffuse interstitial markings, although there is some suggestion of improvement in the previous more mass-like consolidations. Will continue to attempt to wean down her FiO2 as tolerated. Patient, however, will likely have difficulty weaning from the ventilator due to her mental status. Will continue her with micafungin and will increase her to the 150 mg dosage given her increasing leukocytosis. Will also continue linezolid for now but will broaden her antibiotics as well to add additional gram-negative coverage with Zosyn given her leukocytosis as well as her hypothermia. Continue with Solu-Medrol which had been tapered down to 60 mg q8h. and will continue to wean down and taper slowly. Continue with daily ABGs and chest x-rays while intubated and continue with vent bundle care with head of bed elevation and chlorhexidine mouthwash. 4. Renal: Patient with acute renal failure with a previous history of CKD now on hemodialysis. She continues to have minimal urine output and has been continued with CVVHD as per Nephrology. Appreciate renal consult and their recommendations. Will continue CVVHD, and she has been tolerating some fluid removal. Would need to balance that, however, with her increasing vasopressor requirements in terms of fluid removal. Although she is grossly still edematous, it does appear to be improving slightly. 5. GI: Patient was started on tube feeds yesterday via her NG tube. She had difficulty tolerating the tube feeds due to residuals, and so they have been on hold still. She is on TPN still for nutrition, although she continues to be significantly hypoalbuminemic. Given patient's increased vasopressor requirements, she was given a dose of albumin. Patient also has had increasing leukocytosis and some episodes of diarrhea. Last episode was reportedly overnight. Will empirically start vancomycin p.o. again. Her previous stool culture was negative for C. difficile. However, given the significant leukocytosis, will start her empirically on p.o. vancomycin for now. 6. Heme: Patient with thrombocytopenia, likely multifactorial in the setting of her critical illness as well as from medications. She also has anemia and has been requiring p.r.n. transfusions, likely in the setting of her critical illness as well as with her episodes of pulmonary hemorrhage and hematuria. There is also suspicion of possible GI bleed as with her loose diarrhea that she had overnight there was almost a melanotic component. She does have significant leukocytosis which is likely reactive in nature from infection. Will keep active type and screen. Will transfuse patient additional 1 unit of PRBC. Will also check her coags in particular for a DIC panel. Will continue to monitor platelets and transfuse as needed. Can consider restarting heparin after her PICC line. GI prophylaxis: Protonix b.i.d. DVT prophylaxis: Heparin was on hold. TEDS/SCDs 9. Code status: Full code. Patient's son, Edis, was updated as to her condition. There had been previous discussions with the son about her goals of care, in particular the possibility of tracheostomy placement as she has been intubated now for more than two weeks and given her poor prognosis that she will likely not be weanable from the ventilator and we would need tracheostomy with ventilator support. Patient's son does admit today that he does not feel that would be acceptable quality of life if she were to remain on a ventilator via a tracheostomy tube for the possibility of weeks and months or even longer. This is if she is able to improve over her initial critical illness and survive this initial hospitalization which is also in question as she continues to remain critically ill. Patient's son is willing to discuss this with his two sisters about her goals of care and the possibility of a family meeting. Total critical care time spent not including any procedures approx 1 hr and 50 mins MTDD
--- NOTE | 2020-08-21 16:36 | REP ---
INDICATION: need more access poor IV access. COMPARISON: None. TECHNIQUE: The procedure was performed under the direct supervision of Dr. Chris. The risks and benefits of the procedure were explained and informed consent was obtained by the healthcare proxy. The procedure was performed at the bedside.. The right basilic vein was localized using ultrasound guidance. The skin was prepped and draped in a sterile fashion. 2% lidocaine was used as a local anesthetic. Using ultrasound guidance the vein was cannulated and a 0.018 guidewire was inserted. The needle was removed and a 5.5 [place] dilator and peel-away sheath was inserted over the guidewire. A 5.5 [place] dual lumen catheter was cut to a length of 40 cm. The dilator was removed and the catheter was inserted over the guidewire. A portable chest x-ray was performed and the image demonstrates the tip of the catheter to be in the SVC. The peel-away sheath was removed and the catheter were flushed with heparinized saline as per hospital protocol. The catheter was affixed to the skin and a sterile dressing was applied. The patient tolerated the procedure well and there were no immediate complications. FINDINGS: None IMPRESSION: PICC line insertion right basilic vein. <Electronically signed by Rashaun Goode > 08/21/20 [id number] <Electronically signed by Christiano Chris > 08/21/20 [id number]
[2020-08-21] MEDS ORDERED: [UNRECOGNIZED DRUG - OTHER] IV SCH ×7 (18:00)
[2020-08-21] MEDS ORDERED: POTASSIUM PHOSPHATE IV SCH ×7 (18:00)
[2020-08-21] MEDS ORDERED: SODIUM CHLORIDE IV SCH ×7 (18:00)
[2020-08-21] MEDS: SODIUM CHLORIDE 0.9% INJ 10 ML SYR IV SCH (18:03)
[2020-08-21 18:06] LABS: MEAN CORPUSCULAR HEMOGLOBIN 29.9 pg (27.0-33.0); MEAN CORPUSCULAR HGB CONC 32.8 g/dl (32.0-36.5); MEAN CORPUSCULAR VOLUME 91.2 fl (80.0-96.0); RED BLOOD COUNT 1.94 10^6/uL (4.00-5.40)
[2020-08-21 18:07] LABS: HEMATOCRIT 17.7 % (36.0-47.0)
[2020-08-21 18:08] LABS: PLATELET COUNT, AUTOMATED 56 10^3/uL (150-450)
[2020-08-21 18:09] LABS: HEMOGLOBIN 5.8 g/dl (12.0-15.5); WHITE BLOOD COUNT 30.8 10^3/uL (4.0-10.0)
[2020-08-21 18:30] LABS: BLOOD UREA NITROGEN 26 MG/DL (7-18); CALCIUM LEVEL 8.1 MG/DL (8.8-10.2); CARBON DIOXIDE LEVEL 27 MEQ/L (21-32); CHLORIDE LEVEL 105 MEQ/L (98-107); CREATININE FOR GFR 0.61 MG/DL (0.55-1.30); GLOMERULAR FILTRATION RATE > 60.0 (>39); GLUCOSE, FASTING 147 MG/DL (70-100); PHOSPHORUS LEVEL 3.1 MG/DL (2.5-4.9); POTASSIUM SERUM 5.1 MEQ/L (3.5-5.1); SODIUM LEVEL 138 MEQ/L (136-145)
[2020-08-21 18:53] LABS: MAGNESIUM LEVEL 2.2 MG/DL (1.8-2.4)
[2020-08-21 21:19] LABS: HEMATOCRIT 22.6 % (36.0-47.0); HEMOGLOBIN 7.5 g/dl (12.0-15.5); MEAN CORPUSCULAR HEMOGLOBIN 29.8 pg (27.0-33.0); MEAN CORPUSCULAR HGB CONC 33.2 g/dl (32.0-36.5); MEAN CORPUSCULAR VOLUME 89.7 fl (80.0-96.0); RED BLOOD COUNT 2.52 10^6/uL (4.00-5.40)
[2020-08-21 21:32] LABS: PLATELET COUNT, AUTOMATED 63 10^3/uL (150-450); WHITE BLOOD COUNT 34.8 10^3/uL (4.0-10.0)
[2020-08-21] MEDS: PIPERACILLIN/TAZOBACTAM SOD 2.25 GM in D5W MINI-BAG PLUS 50 ML IV SCH (22:11)
[2020-08-21] MEDS: LEVEMIR (INSULIN DETEMIR) 1 UNITS/0.01ML SC SCH (22:12)
[2020-08-22] VITALS (35 sets, daily range): BP systolic 79–197; BP diastolic 43–91; O2SAT 93–94
[2020-08-22] MEDS: VANCOMYCIN ORAL SOL 250MG/5ML ORAL SYRINGE PO SCH ×5 (00:38→23:00)
[2020-08-22] MEDS: PIPERACILLIN/TAZOBACTAM SOD 2.25 GM in D5W MINI-BAG PLUS 50 ML IV SCH ×4 (01:43→20:00)
[2020-08-22] MEDS: propofoL 1,000 MG in IV 1 EA IV SCH ×6 (02:34→22:05)
[2020-08-22] MEDS: fentaNYL 100 MCG/2 ML INJECTION (J3010) IV PRN ×4 (03:49→17:23)
[2020-08-22] MEDS: hydrALAZINE 20MG/ML 1ML VIAL (J0360 PER 20MG) IV SCH ×4 (04:00→22:00)
[2020-08-22] MEDS: MIDAZOLAM INJ 2MG/2ML VIAL (J2250 PER 1MG) IV PRN ×2 (04:30→17:19)
[2020-08-22] MEDS: methylPREDNISolone 125MG 2ML VIAL IV SCH ×2 (04:53→16:12)
[2020-08-22] MEDS: MICAFUNGIN SODIUM 150 MG in D5W 100 ML IV SCH (04:53)
[2020-08-22 05:31] LABS: MEAN CORPUSCULAR HEMOGLOBIN 29.7 pg (27.0-33.0); MEAN CORPUSCULAR HGB CONC 33.3 g/dl (32.0-36.5); MEAN CORPUSCULAR VOLUME 89.2 fl (80.0-96.0); RED BLOOD COUNT 2.32 10^6/uL (4.00-5.40)
[2020-08-22 05:34] LABS: HEMATOCRIT 20.7 % (36.0-47.0); HEMOGLOBIN 6.9 g/dl (12.0-15.5); PLATELET COUNT, AUTOMATED 56 10^3/uL (150-450); WHITE BLOOD COUNT 31.7 10^3/uL (4.0-10.0)
[2020-08-22 05:54] LABS: ABG BASE EXCESS 1.3 (-2.0-2.0); ABG O2 SATURATION 96.1 % (95.0-99.0); ABG PARTIAL PRESSURE CO2 34.7 mmHg (35.0-45.0); ABG PARTIAL PRESSURE O2 77.1 mmHg (75.0-100.0); ABG STANDARD HCO3 25.7 MEQ/L (22.0-26.0); ABG pH (ARTERIAL) 7.475 UNITS (7.350-7.450)
[2020-08-22] MEDS: HumaLOG INSULIN (NovoLOG) PER UNIT SC SCH ×5 (05:56→23:00)
[2020-08-22 05:57] LABS: ALBUMIN 2.1 GM/DL (3.2-5.2); BLOOD UREA NITROGEN 24 MG/DL (7-18); CALCIUM LEVEL 8.1 MG/DL (8.8-10.2); CARBON DIOXIDE LEVEL 25 MEQ/L (21-32); CHLORIDE LEVEL 105 MEQ/L (98-107); CPK CREATINE PHOSPHOKINASE 277 U/L (26-192); CREATININE FOR GFR 0.52 MG/DL (0.55-1.30); GLOMERULAR FILTRATION RATE > 60.0 (>39); GLUCOSE, FASTING 159 MG/DL (70-100); MAGNESIUM LEVEL 2.1 MG/DL (1.8-2.4); PHOSPHORUS LEVEL 2.7 MG/DL (2.5-4.9); POTASSIUM SERUM 4.2 MEQ/L (3.5-5.1); SODIUM LEVEL 139 MEQ/L (136-145); TRIGLYCERIDES LEVEL 102 MG/DL (<150)
[2020-08-22] MEDS: LINEZOLID 600 MG in IV 1 EA IV SCH (05:57)
[2020-08-22] MEDS: SODIUM CHLORIDE 0.9% INJ 10 ML SYR IV SCH ×2 (05:57→18:00)
[2020-08-22] MEDS: IPRATROPIUM 0.5MG/ALBUTEROL 2.5MG INH SOL UD 3ML (DUONEB) NEB SCH ×3 (07:17→15:08)
[2020-08-22] MEDS: PANTOPRAZOLE 40MG VIAL (C9113 PER 1) IV SCH ×2 (08:20→20:13)
[2020-08-22] MEDS: CHLORHEXIDINE GLUCONATE 0.12 % 15ML UDC (PERIDEX ORAL RINSE) MT SCH ×2 (08:20→20:13)
--- NOTE | 2020-08-22 08:58 | REP ---
INDICATION: respiratory failure. COMPARISON: 08/21/2020, 08/20/2020 TECHNIQUE: AP portable semi-erect chest FINDINGS: Endotracheal tube is about 3.8 cm above the kasey. The nasogastric tube and right jugular dialysis catheter are unchanged. There is a left jugular central venous catheter with tip in the SVC at the junction with the left brachiocephalic vein. Underlying chronic diffuse interstitial fibrotic changes are seen. Today's study is at a slightly improved level of inflation overall. There appear to be superimposed infiltrates in the right mid and lower lung zone in the left base as well as periphery of the left upper lobe. However this does not appear much changed. No gross effusion but posterior lower lung zones are poorly evaluated on portable semi-erect chest. IMPRESSION: Lines and tubes are unchanged. Extensive chronic interstitial of lung disease with superimposed infiltrates. Overall slightly better inflation. <Electronically signed by Gabino Rodriguez > 08/22/20 [id number]
[2020-08-22] MEDS ORDERED: SODIUM CHLORIDE 0.9% INJ 10 ML SYR IV PRN (11:15)
[2020-08-22] MEDS: MIDAZOLAM HCL 100 MG in D5W 80 ML IV SCH (12:21)
--- NOTE | 2020-08-22 12:52 | CCN ---
CRITICAL CARE NOTE DATE: 08/22/2020 SUBJECTIVE: The patient is seen and examined this morning during bedside rounds. Yesterday evening the patient continued to have episodes of tachypnea which would cause her ventilator to alarm with elevated peak pressures. She does have elevated plateau pressures, but they are currently below 30 this morning. She did require p.r.n. Fentanyl overnight for her continued tachypnea. She is still on sedation with Versed drip at 6 mg an hour as well as Propofol infusion. The patient was also noted to be significantly hypothermic yesterday evening with temperatures down to 93 degrees Fahrenheit. She did have a Lulu Hugger placed as well as warm fluids and her temperature has slowly improved. She was also bradycardic overnight but was able to maintain her blood pressures for the most part off of the Levophed. She did require a low dose of Levophed this morning to maintain her MAPS above 65. The patient was also noted overnight to have copious amounts of foul smelling diarrhea. She had a rectal tube placed for her diarrhea. OBJECTIVE: PHYSICAL EXAMINATION: VITAL SIGNS: Temperature 95.0, pulse 60, respirations 37, blood pressure 104/55, O2 sat 95% on 60% FiO2. INTAKE AND OUTPUT: In 2.3 liters, out 4.1 liters. Net negative 471 mL. GENERAL APPEARANCE: The patient is intubated and sedated. She is tachypneic and is withdrawing minimally to painful stimuli. HEENT: Normocephalic and atraumatic. Pupils are small and sluggishly reactive to light. There are moist mucous membranes noted. NECK: Supple. Trachea is midline. She has a right IJ tunneled dialysis catheter with some dried blood around tenderness gauze but no active oozing currently. There is a left IJ in place as well with dried blood around the dressing but no active bleeding. CARDIAC: Regular rate and rhythm, normal S1, S2, unable to clearly appreciate any murmurs. PULMONARY: Bilateral fine crackles noted with no significant rhonchi or wheeze. ABDOMEN: Obese, soft, nontender, nondistended. There are areas of ecchymosis on the abdomen which are circled. EXTREMITIES: There is improvement in her lower extremity edema with +1 pitting edema now bilaterally in the lower extremities as well as some mild pitting edema in the upper extremities. She does have a new right arm PICC line. LABORATORY STUDIES: WBC 31.7, hemoglobin 6.9, platelet count 56. Chemistries - sodium is 137, potassium is 4.2, chloride is 105, bicarbonate is 25, BUN 24, creatinine 0.52, glucose is 159, triglycerides are 102, CK is 277, magnesium is 2.1. ABG - pH of 7.475, pco2 of 34.7, p02 of 77.1. IMAGING: Chest x-ray this morning shows continued diffuse interstitial markings. There is also a suspicion of a possible mass-like opacity in the right mid lung field. She has an ET tube in place and an NG tube in place coursing below the diaphragm. There is a right IJ tunneled catheter and a left IJ triple lumen catheter. There is a new right sided PICC line. There is some mild blunting in the bilateral costophrenic angles. ASSESSMENT AND PLAN: Ms. Calero is a 75-year-old female with a past medical history of hypertension, hyperlipidemia, CKD and prior CVA who presented with complaints initially of altered mental status and acute hypoxic respiratory failure. The patient had initially presented to the hospital in the beginning of July with altered mental status, fever and sepsis. She also had acute hypoxic respiratory failure with evidence of pulmonary hemorrhage as well as worsening acute kidney injury on chronic kidney disease. The patient required intubation and mechanical ventilation and there was a possibility of pulmonary renal syndrome and she was started on high doses of Solu-Medrol. She was transferred to an outside medical facility for the possibility of plasmapheresis. She was noted to have mild elevations in her P-ANCA with the MPO- antibodies, however her anti-GBM and C-ANCA were negative. The patient did require hemodialysis at the outside facility - Rheumatology had been consulted and they had lower suspicion of vasculitis. Her steroids were therefore discontinued and she was transferred back to [facility] on 08/15/20. The patient did have previous cultures which did show nikole glabrata in her sputum and urine as well as BAL which showed aspergillus. Upon her transfer here, she did have another episode of pulmonary hemorrhage and had a repeat bronchoscopy in which she appeared to have evidence of fungal mucous plugs noted. She also had worsening urine output and had been started again on hemodialysis with CVVHD. Her steroids were also restarted on her repeat admission here. 1. Neuro the patient is intubated and sedated. She continues to have significant encephalopathy which is likely multifactorial due to her medications currently as well as her sepsis. The patient has difficulty with weaning off sedation given her vent desynchrony and tachypnea. We will continue with Versed drip as well as Propofol infusion for sedation with p.r.n. Fentanyl for analgesia and tachypnea. We did check her CP and triglycerides for a possible Propofol infusion syndrome - She does not appear to have any significant acidosis or significant laboratory findings to suggest that currently. 2. Cardiac - patient with a history of somewhat labile blood pressures during her admission. She does intermittently have episodes of hypotension and will require Levophed for blood pressure support to maintain her MAP above 65. The patient's lactic acid was normal yesterday we will continue with Levophed to maintain MAP above 65 and we will continue transfusions as well of PRBC for her anemia which is likely contributing to some of her hypotension. The patient has a left IJ triple lumen for vascular access she also had a right sided PICC line placed as she need additional vascular access for her multiple infusions and medications. She also had a tunneled dialysis catheter on the right IJ for hemodialysis access. 3. Pulmonary - patient with acute hypoxic respiratory failure with the possibility of a pulmonary renal syndrome. The patient is still intubated an on mechanical ventilation and her chest x-ray continues to show diffuse intersitial markings. She does have a significantly elevated plateau pressure still, and there is suspicion that some of these changes may become more fibrotic. There was a possibility of pulmonary edema contributing, however they have been able to remove fluid with dialysis and she has had minimal change in terms of her oxygen requirements or on imaging. We will continue with Zosyn and we will also check a procalcitonin to help aide in deescalation of antibiotics. The patient also with likely fungal pneumonia she had previous cultures which grew nikole glabrata as well as aspergillus. The patient has been on Micafungin which was increased to 150 mg dosage. Could consider changing her Micafungin to Voriconazole for aspergillus, however there is interaction with Fentanyl. It also appears we have only oral Voriconazole and given her issues with tolerating tube feeds it is unclear how much she will absorb with oral Voriconazole at this time. We will continue to discuss with Pharmacy about potentially adjusting her antifungal regimen. We will discontinue Linezolid - The patient has completed almost a 10-day course of antibiotics with the Linezolid. She was started on Zosyn for additional gram negative coverage which we will continue for now. We will continue with Solu-Medrol which we will wean down to 60 mg q. 12 hours. And we will continue to slowly wean steroids. Continue with daily ABGs and chest x-rays while intubated and continue with vent bundle care with head of bed elevation and Chlorhexidine mouthwash. 4. Renal - patient with acute renal failure with a previous history of chronic kidney disease and now on hemodialysis. Appreciate renal consult and recommendations we will continue CVVHD with fluid removal as tolerated as per Nephrology. We will continue electrolyte management as per Nephrology. 5. GI - The patient has been unable to tolerate tube feeds. She is on TPN still for nutrition, however we will attempt to restart tube feeds tomorrow at trickle rate to see if she will tolerate it. Patient also had worsening leukocytosis and hypothermia and diarrhea with suspicion for possible C-diff. She was started on p.o. Vancomycin and her leukocytosis has been improving. She does have significant diarrhea with a rectal tube currently. 6. Heme - patient with thrombocytopenia, likely multifactorial in the setting of her critical illness as well as from medications and sepsis - She also has anemia which is likely in the setting of her episodes of hematuria, previously as well as with continued blood draws and with her critical illness. There was also suspicion of possible GI bleed at one point. We will continue to transfuse to maintain a hemoglobin above 7 she received one unit of PRBCs yesterday but her hemoglobin has trended down. We will give an additional unit of PRBCs today. Her platelets are low but does not appear to have any active bleeding at this time. We will continue to monitor her coags as well and transfuse platelets and FFP as needed. GI prophylaxis - Protonix twice daily. DVT prophylaxis TEDS and SCDs. Code Status Full code. Patient's daughter has come to see her yesterday and her goals of care were discussed with the daughter. The patient has a daughter who lives in [place], who was the one who was able to visit yesterday and there is another daughter in [place], who is planning to fly and be here by Monday. Her son in [place] is also planning to be here by Monday as well for a family discussion about goals of care. They are discussing now the possibility of comfort measures as they had felt the patient would not have wanted to be maintained on a ventilator via tracheostomy for the possibility of weeks or months or even longer. Total critical care time spent not including procedures approximately one hour and ten minutes. WHITNEY
[2020-08-22] MEDS ORDERED: [UNRECOGNIZED DRUG - OTHER] IV SCH ×5 (18:00)
[2020-08-22] MEDS ORDERED: SODIUM CHLORIDE IV SCH ×5 (18:00)
[2020-08-22] MEDS ORDERED: POTASSIUM PHOSPHATE IV SCH ×5 (18:00)
[2020-08-22 18:24] LABS: BASO # 0.1 10^3/uL (0.0-0.2); BASO % 0.2 % (0.0-1.0); EOS # 0.1 10^3/uL (0.0-0.5); EOS % 0.3 % (0.0-3.0); HEMATOCRIT 26.6 % (36.0-47.0); HEMOGLOBIN 8.9 g/dl (12.0-15.5); LYMPH # 0.7 10^3/uL (1.5-5.0); LYMPH % 1.9 % (24.0-44.0); MEAN CORPUSCULAR HEMOGLOBIN 29.6 pg (27.0-33.0); MEAN CORPUSCULAR HGB CONC 33.5 g/dl (32.0-36.5); MEAN CORPUSCULAR VOLUME 88.4 fl (80.0-96.0); MONO # 0.9 10^3/uL (0.0-0.8); MONO % 2.6 % (2.0-8.0); NEUTROPHILS # 32.8 10^3/uL (1.5-8.5); NEUTROPHILS % 92.7 % (36.0-66.0); RED BLOOD COUNT 3.01 10^6/uL (4.00-5.40)
[2020-08-22 18:26] LABS: PLATELET COUNT, AUTOMATED 56 10^3/uL (150-450); WHITE BLOOD COUNT 35.4 10^3/uL (4.0-10.0)
[2020-08-22 18:47] LABS: BLOOD UREA NITROGEN 29 MG/DL (7-18); CALCIUM LEVEL 8.5 MG/DL (8.8-10.2); CARBON DIOXIDE LEVEL 26 MEQ/L (21-32); CHLORIDE LEVEL 104 MEQ/L (98-107); CREATININE FOR GFR 0.56 MG/DL (0.55-1.30); GLOMERULAR FILTRATION RATE > 60.0 (>39); GLUCOSE, FASTING 126 MG/DL (70-100); MAGNESIUM LEVEL 2.2 MG/DL (1.8-2.4); PHOSPHORUS LEVEL 2.8 MG/DL (2.5-4.9); POTASSIUM SERUM 4.3 MEQ/L (3.5-5.1); SODIUM LEVEL 137 MEQ/L (136-145)
[2020-08-22] MEDS ORDERED: CALCIUM GLUCONATE 1,000 MG, VIAL MATE ADAPTER 1 EACH in NS 100 ML IV ONE (20:00)
[2020-08-22] MEDS: LEVEMIR (INSULIN DETEMIR) 1 UNITS/0.01ML SC SCH (20:13)
--- NOTE | 2020-08-22 22:51 | IPN ---
NEPHROLOGY PROGRESS NOTE DATE: 08/22/2020 SUBJECTIVE: Patient was seen and examined at the bedside today morning. She is intubated, sedated. FIO2 requirement is 60%. She continues to be on CVVHDF and TPN at this time. Currently she is not requiring any pressors when I saw her in the morning. Volume status is getting better. She continues to be on I.V. anti-fungal and antibiotics at this time. OBJECTIVE: VITAL SIGNS: Temperature 95.5 degrees Fahrenheit, blood pressure 133/66, pulse 71, respiratory rate 39, saturating 93% on the vent with 65% FIO2. INTAKE AND OUTPUT: Patient is anuric at this time. Urine output is at 20 mL since overnight. Ultrafiltration with CVVHDF is 3.2 liters. Weight in the bed scale is 74.9 kg. PHYSICAL EXAMINATION: GENERAL: Patient is intubated, sedated. HEAD/NECK: Eyes are closed. Pupils equally round and reactive to light. She has an endotracheal tube and orogastric tube. Neck is supple. She has a right IJ tunneled hemodialysis catheter. CARDIOVASCULAR: S1, S2, regular rate. 2+ edema in the arms and 1+ edema in the legs was noted. RESPIRATORY: Chest is clear to auscultation bilaterally. Bilateral equal air entry. No active rales or rhonchi. ABDOMEN: Soft. Positive bowel sounds. She has a rectal tube at this time because she was having diarrhea. MUSCULOSKELETAL: No clubbing or cyanosis. Pulses are 2+. Edema of the extremities as noted above. FLOAT REMOVER: Patient is sedated and she moves extremities on painful stimuli. LABORATORY DATA: CBC showed WBC 35.4, hemoglobin 8.9; it was 6.9 in the morning, and PRBC transfusion was ordered. ABG done in the morning showed pH 7.47, pCO2 34, pO2 77, bicarb 25, O2 sat 96%. BMP showed sodium 137, potassium 4.3, chloride 104, bicarb 26, BUN 29, creatinine 0.5. Calcium 8.5. Phosphorus 2.8. Magnesium 2.2. MICROBIOLOGY: No cultures are positive so far except mold-like organism in the BAL. IMAGING: A chest x-ray was done today morning, which showed lines and tubes are unchanged, extensive chronic interstitial changes of lung with superimposed infiltrates. CURRENT INPATIENT MEDICATIONS: Patient's medications were all reviewed by myself. Her Levophed is on hold now. Her Zyvox has been stopped. She continues to be on I.V. Micafungin. She is also on I.V. Zosyn. Solu-Medrol dose has been changed to 60 mg I.V. every 12 hours. No other significant change in the medication except the addition of Vancomycin 125 mg p.o. every 6 hours. ASSESSMENT AND PLAN: 1. Acute renal failure: Patient has acute anuric renal failure, she continues to be CVVHDF dependent. She is tolerating the CVVHDF well at this time. 2. Septic shock: Patient is off of Levophed now, fluid removal is being done according to CVVHDF protocol. She continues to be on I.V. antibiotics and antifungal because of possible mold-like organism on bronchoalveolar lavage and superimposed infiltrates on the lung imaging. Decision to change antibiotic or antifungal is as per pulmonary team. 3. Vent dependent respiratory failure: There was a concern that patient might have pulmonary renal syndrome, but so far only positive serology we have from previous admission is mild myeloperoxidase antibody. The rest of the serology is negative so far. No tissue biopsy is available. Solu-Medrol dose is being decreased to 60 mg every 12 hours. 4. Nutrition: Patient is having diarrhea. She is not being fed through the tube. New TPN special order TPN was ordered by myself today morning. 5. Anemia and renal failure: Patient was given a PRBC transfusion. She is also on Aranesp once a week. 6. Diarrhea: Patient is currently on oral Vancomycin. C. diff done a few days ago is negative. Repeat one is pending. 7. Diabetes mellitus type 2 insulin dependent: Patient is on insulin Levemir and she is getting TPN at this time. Glucose levels are within the acceptable range. TOTAL CRITICAL CARE TIME SPENT: In the management of this patient today morning in the ICU excluding all the procedures was 40 minutes. MTDD
[2020-08-23] VITALS (42 sets, daily range): BP systolic 78–167; BP diastolic 40–85; O2SAT 93–98
[2020-08-23] MEDS: IPRATROPIUM 0.5MG/ALBUTEROL 2.5MG INH SOL UD 3ML (DUONEB) NEB SCH ×5 (00:39→19:47)
[2020-08-23] MEDS: PIPERACILLIN/TAZOBACTAM SOD 2.25 GM in D5W MINI-BAG PLUS 50 ML IV SCH ×4 (01:14→20:17)
[2020-08-23] MEDS: MIDAZOLAM HCL 100 MG in D5W 80 ML IV SCH ×2 (02:09→19:02)
[2020-08-23] MEDS: propofoL 1,000 MG in IV 1 EA IV SCH ×4 (02:50→18:24)
[2020-08-23] MEDS: MICAFUNGIN SODIUM 150 MG in D5W 100 ML IV SCH (03:13)
[2020-08-23] MEDS: methylPREDNISolone 125MG 2ML VIAL IV SCH ×2 (03:13→15:14)
[2020-08-23] MEDS: fentaNYL 100 MCG/2 ML INJECTION (J3010) IV PRN ×7 (03:24→18:21)
[2020-08-23] MEDS: hydrALAZINE 20MG/ML 1ML VIAL (J0360 PER 20MG) IV SCH ×4 (04:00→22:00)
[2020-08-23] MEDS: MIDAZOLAM INJ 2MG/2ML VIAL (J2250 PER 1MG) IV PRN ×5 (04:07→18:00)
[2020-08-23 05:50] LABS: ABG BASE EXCESS 0.9 (-2.0-2.0); ABG HCO3 25.2 MEQ/L (22.0-26.0); ABG PARTIAL PRESSURE CO2 38.8 mmHg (35.0-45.0); ABG PARTIAL PRESSURE O2 85.2 mmHg (75.0-100.0); ABG STANDARD HCO3 25.3 MEQ/L (22.0-26.0); ABG TOTAL CO2 26.4 MEQ/L (23.0-31.0)
[2020-08-23] MEDS: HumaLOG INSULIN (NovoLOG) PER UNIT SC SCH ×4 (05:50→23:18)
[2020-08-23] MEDS: VANCOMYCIN ORAL SOL 250MG/5ML ORAL SYRINGE PO SCH ×4 (05:50→23:18)
[2020-08-23] MEDS: SODIUM CHLORIDE 0.9% INJ 10 ML SYR IV SCH ×2 (05:51→17:56)
[2020-08-23 06:06] LABS: HEMATOCRIT 24.5 % (36.0-47.0); HEMOGLOBIN 8.3 g/dl (12.0-15.5); MEAN CORPUSCULAR HEMOGLOBIN 30.1 pg (27.0-33.0); MEAN CORPUSCULAR HGB CONC 33.9 g/dl (32.0-36.5); MEAN CORPUSCULAR VOLUME 88.8 fl (80.0-96.0); RED BLOOD COUNT 2.76 10^6/uL (4.00-5.40)
[2020-08-23 06:12] LABS: PLATELET COUNT, AUTOMATED 52 10^3/uL (150-450)
[2020-08-23 06:15] LABS: WHITE BLOOD COUNT 36.4 10^3/uL (4.0-10.0)
[2020-08-23 06:22] LABS: BLOOD UREA NITROGEN 31 MG/DL (7-18); CALCIUM LEVEL 7.5 MG/DL (8.8-10.2); CARBON DIOXIDE LEVEL 25 MEQ/L (21-32); CHLORIDE LEVEL 105 MEQ/L (98-107); CREATININE FOR GFR 0.57 MG/DL (0.55-1.30); GLOMERULAR FILTRATION RATE > 60.0 (>39); GLUCOSE, FASTING 118 MG/DL (70-100); MAGNESIUM LEVEL 2.3 MG/DL (1.8-2.4); PHOSPHORUS LEVEL 3.1 MG/DL (2.5-4.9); POTASSIUM SERUM 4.3 MEQ/L (3.5-5.1); SODIUM LEVEL 138 MEQ/L (136-145)
[2020-08-23] MEDS ORDERED: CALCIUM GLUCONATE 1,000 MG, VIAL MATE ADAPTER 1 EACH in NS 100 ML IV ONE ×2 (08:00→19:00)
[2020-08-23] MEDS: PANTOPRAZOLE 40MG VIAL (C9113 PER 1) IV SCH ×2 (08:12→20:17)
[2020-08-23] MEDS: CHLORHEXIDINE GLUCONATE 0.12 % 15ML UDC (PERIDEX ORAL RINSE) MT SCH ×2 (08:13→20:16)
--- NOTE | 2020-08-23 08:15 | REP ---
INDICATION: respiratory failure. COMPARISON: 08/22/2020, 08/21/2020. TECHNIQUE: AP portable semi-erect. FINDINGS: Endotracheal tube is about 1.6 cm from the kasey. Right jugular dialysis catheter, right subclavian PICC line and nasogastric tubes are again seen and unchanged. There is a left jugular central venous catheter with tip in the SVC. Extensive chronic interstitial lung change with superimposed infiltrates that appear heavier and yesterday's exam in the right lung, particularly in the base. Small effusions are suspected. Cardiomediastinal silhouette is unchanged. IMPRESSION: 1. Lines and tubes as described. The endotracheal tube is now 1.6 cm from the kasey. 2. Heavier consolidation in the right lung a compared to yesterday with underlying chronic diffuse interstitial change. Cardiomediastinal silhouette unchanged. <Electronically signed by Gabino Rodriguez > 08/23/20 0813
[2020-08-23 10:17] LABS: ABG BASE EXCESS 0.1 (-2.0-2.0); ABG HCO3 24.7 MEQ/L (22.0-26.0); ABG O2 SATURATION 94.9 % (95.0-99.0); ABG PARTIAL PRESSURE CO2 39.7 mmHg (35.0-45.0); ABG PARTIAL PRESSURE O2 70.4 mmHg (75.0-100.0); ABG STANDARD HCO3 24.5 MEQ/L (22.0-26.0); ABG TOTAL CO2 25.9 MEQ/L (23.0-31.0); ABG pH (ARTERIAL) 7.411 UNITS (7.350-7.450)
[2020-08-23] MEDS ORDERED: SODIUM CHLORIDE 0.9% INJ 10 ML SYR IV PRN (10:30)
[2020-08-23] MEDS ORDERED: ROCURONIUM BROMIDE 50 MG/5 ML VIAL IV ONE (11:45)
[2020-08-23] MEDS ORDERED: ROCURONIUM BROMIDE 50 MG/5 ML VIAL As Ordered ONE ×2 (11:45→11:46)
--- NOTE | 2020-08-23 11:55 | CCN ---
CRITICAL CARE NOTE DATE: 08/23/2020 SUBJECTIVE: The patient was seen and examined this morning during bedside rounds. Overnight, the patient continued to be hypothermic requiring a Lulu Hugger. She was able to be weaned off of the Levophed and for the most part, has been off of vasopressors, although occasionally she will require a low dose of Levophed, as she does still have very labile blood pressures. Other times, she will be hypertensive particularly with nursing care; although, that does quickly resolve. The patient was given an additional one unit of PRBC yesterday with appropriate response on her repeat hemoglobin. She does continue to be tachypneic and this morning, she was noted to have increasing peak pressures on the ventilator. The patient does continue to have some almost coffee-ground material from her NG tube when it is on the low intermittent suction. She does have some loose stool still in the rectal tube. The patient is still on CVVH, and she has minimal urine output in the Lauren. OBJECTIVE: VITAL SIGNS: Temperature 96.1, pulse 72, respirations 36, blood pressure 160/85, O2 saturation 94% on 65% FiO2. INTAKE AND OUTPUT: In 3.6 liters, out 4.0, net negative 404. GENERAL: The patient is intubated and sedated. She is tachypneic and appears to withdraw at times minimally to painful stimuli. HEENT: Normocephalic, atraumatic. Pupils are sluggishly reactive to light bilaterally. There are moist mucous membranes noted. NECK: Supple. Trachea is midline. She has a right IJ tunnel dialysis catheter with some evidence of blood oozing on the gauze actively. The left IJ triple lumen in place, dressing has been changed, and does not appear to have any active bleeding. CARDIAC: Regular rate and rhythm. Normal S1, S2. Possible faint murmur auscultated. PULMONARY: There are crackles noted bilaterally with an occasional rhonchi, but no significant wheeze. ABDOMEN: Obese, soft, nontender, and nondistended. There are areas of ecchymosis on her lower abdomen. EXTREMITIES: There is improvement in her lower extremity edema with trace to +1 pitting edema in the lower extremities, as well as continued pitting edema in the upper extremities. She does have a right arm PICC line in place with the dressing clean, dry, and intact. LABORATORY DATA: WBC 36.4, hemoglobin 8.3, platelets 52,000. Chemistries with sodium 138, potassium 4.3, chloride 105, bicarb 25, BUN 31, creatinine 0.57, glucose 118, calcium 7.5, magnesium 2.3. PTT is 28.3. ABG with pH of 7.430, pCO2 of 38.8, pO2 of 85.2. IMAGING DATA: Chest x-ray this morning shows ET tube in place 1.6 cm above the kasey. There is diffuse interstitial markings chronically bilaterally, which are unchanged. There is, however, increasing consolidation in the right lung more in the base noted today. Other lines are unchanged, including a right IJ tunneled catheter, a left IJ triple lumen, and a right-sided PICC line. There is also an NG tube in place. There is suggestion of small bilateral pleural effusion. ASSESSMENT AND PLAN: Ms. Calero is a 75-year-old female with a past medical history of hypertension, hyperlipidemia, chronic kidney disease (CKD), and prior cerebrovascular accident (CVA) who presented initially with altered mental status and acute hypoxemic respiratory failure. 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 She was intubated and on mechanical ventilation and was started on high doses of steroids with Solu-Medrol. She was transferred to an outside medical facility for the possibility of plasmapheresis. She did have mild elevations in her p-ANCA, in particular the MPO antibodies; however, her anti-GBM and c-ANCA were negative. The patient was not thought clinically to have vasculitis at the outside hospital and her steroids were discontinued. She was transferred back to [facility] on 08/15/2020. Upon transfer, she did have another episode of hemorrhage via the ET tube and had a repeat bronchoscopy done at that time, which did also show evidence of what appeared to be fungal mucous plugs noted. Her previous sputum and bronchoscopy cultures had grown Aiyana glabrata, as well as aspergillus. Her repeat bronchoscopy bronchoalveolar lavage (BAL) did show mild organisms. The patient also continued to have acute renal failure and was started on dialysis again with continuous veno-venous hemodialysis (CVVHD). 1. Neurologic. The patient is intubated and sedated. She continues to have significant encephalopathy, which is likely multifactorial in the setting of her sepsis currently, as well as with her sedation medication and critical illness. - The patient is on Versed drip and propofol infusion for sedation. She has Fentanyl p.r.n. for analgesia and tachypnea. The patient continues to have difficulty with weaning off of sedation and tolerating sedation vacations given vent dyssynchrony, worsening tachypnea, and increasing plateau pressures and hypoxia when sedation is weaned. 2. Cardiac. Patient with a history of labile blood pressures. She does intermittently have episodes of hypotension requiring Levophed to maintain blood pressure with a MAP above 65. - The patient is currently off of pressures. Plan to continue with Levophed p.r.n. to maintain MAP above 65. - For vascular access, the patient has a left internal jugular (IJ) triple lumen in place, as well as a right-sided peripherally inserted central catheter (PICC) line. She also has a tunneled hemodialysis catheter on the right IJ. 3. Pulmonary. Patient with acute hypoxemic respiratory failure with the possibility of a pulmonary renal syndrome. Patient also has possibility of a bacterial pneumonia, as well as fungal pneumonia given previous cultures, which had grown Aiyana glabrata, as well as aspergillus. The patient has been continued on micafungin and there was consideration of changing her to voriconazole, in particular for the aspergillus; however, as she does require Fentanyl still and there is an interaction currently, will continue with just the micafungin. - Will continue with Zosyn for broad-spectrum antibiotics. Her Linezolid was discontinued yesterday. She does have increasing leukocytosis today. Her procalcitonin is still pending. Will continue to follow up results and de-escalate antibiotics accordingly. - Continue with Solu-Medrol, which was tapered down to 60 mg every 12 hours and will continue to slowly wean down with steroids. - Continue with daily arterial blood gases (ABGs) and chest x-rays while intubated and continue with vent bundle care with head of bed elevation and chlorhexidine mouth wash. 4. Renal. Patient with acute renal failure with a previous history of chronic kidney disease (CKD) and continued on continuous veno-venous hemodialysis (CVVHD). - Appreciate nephrology consult and recommendations. Will continue with CVVHD as per nephrology. - Will continue with total parenteral nutrition (TPN) as per nephrology and electrolyte management. 5. Gastrointestinal (GI). The patient was started on p.o. vancomycin given her worsening leukocytosis and hypothermia, as well as with diarrhea due to suspicion of possible Clostridium difficile. Will continue with the p.o. vancomycin for now and with her rectal tube given her ongoing diarrhea. - Patient is on TPN still for nutrition as she was unable to tolerate tube feeds. She does have some coffee-ground output from her nasogastric (NG) tube currently with low intermittent suction. 6. Hematologic. Patient with anemia likely secondary to her critical illness, as well as the possibility of a gastrointestinal (GI) bleed. She has been requiring p.r.n. transfusion of packed red blood cells (PRBC) and did have a transfusion yesterday with appropriate response. Her hemoglobin and hematocrit (H&H) has been trending down slightly, but will hold off on transfusion unless hemoglobin is less than 7. - Patient also with thrombocytopenia likely multifactorial in the setting of her critical illness, as well as from her medications and sepsis. She does not appear to have very active or worsening bleeding at this time, so will continue monitoring her platelets and her coags and transfuse as needed. Gastrointestinal (GI) prophylaxis with Protonix b.i.d. Deep vein thrombosis (DVT) prophylaxis with TEDs and sequential compression devices (SCDs). Code status: FULL CODE. There is a plan for a family meeting on Monday with the patient's son who is arriving from [place], a daughter who is arriving from [place], and another daughter who lives locally. There is a discussion about the possibility of comfort measures and the family is also considering brining clergy as well. TOTAL CRITICAL CARE TIME: Not including procedures approximately 45 minutes. JIMYD
[2020-08-23] MEDS ORDERED: NOREPINEPHRINE 4 MG/4 ML AMP As Ordered ONE (12:56)
--- NOTE | 2020-08-23 12:58 | IPN ---
NEPHROLOGY PROGRESS NOTE DATE: 08/23/2020 SUBJECTIVE: The patient was seen and examined at the bedside today morning in the ICU. She continues to be on CVVHDF. She is not requiring any pressors at this time. We are able to keep her even according to the fluid balance sheet, and she is getting TPN at this time as well. OBJECTIVE: VITAL SIGNS: Temperature is 95.6 degrees Fahrenheit, blood pressure is 143/63, pulse is 85, respiratory rate of 44, saturating 91% on the vent with 60% FiO2. INTAKE AND OUTPUT: The patient remains anuric at this time. Urine output is only 16 mL. Fluid removal with the CVVHDF is 1.7 liters since overnight. Weight in the bed scale is not available today. Yesterday it was 74.9. PHYSICAL EXAMINATION: GENERAL APPEARANCE: The patient is intubated, sedated. HEAD AND NECK: Eyes are closed. Pupils are equally round and reactive to light. She has an endotracheal tube and orogastric tube. Neck is supple. She has a left neck triple lumen catheter and right IJ tunneled hemodialysis catheter which is being used for dialysis. CARDIOVASCULAR: S1, S2, regular rate. EXTREMITIES: 2+ edema of the bilateral upper and bilateral lower extremities. RESPIRATORY: Some decreased breath sounds at the bases, and she is vent dependent at this time. ABDOMEN: Soft, positive bowel sounds, multiple hematomas and small hematomas are noted in the abdominal wall. GENITOURINARY: She has an indwelling Lauren catheter. Very small amount of urine in the bag is noted. MUSCULOSKELETAL: No clubbing, no cyanosis. Pulses are 2+. RUBBLE PLACER: The patient is intubated and sedated. Moves extremities on painful stimuli. LAB REVIEW: CBC showed a white blood cell count of 36.4, hemoglobin 8.3, platelet count 52. ABG showed pH 7.4, pco2 of 39.4, pO2 70. Bicarbonate is 24.7, O2 sat 94.9%. BMP showed 41.38, potassium 4.3, chloride 105, bicarbonate 25, BUN 31, creatinine is 0.5, glucose is 118. IMAGING: A chest x-ray was done today morning which showed heavier consolidation in the right lung compared to yesterday. Chronic diffuse interstitial changes. CURRENT INPATIENT MEDICATIONS: The patient's medications were all reviewed by myself. No significant change in the medications today as compared with yesterday. She continues to be on Zosyn and Micafungin and oral Vancomycin. ASSESSMENT AND PLAN: 1. Acute renal failure - The patient dependent on CVVHDF I would keep her on CVVHDF for tonight for optimization of volume status and if she remains off of pressors, then I would stop the CRRT and switch her to every other day intermittent hemodialysis. 2. Septic shock - The patient is not requiring Levophed she continues to be on antifungal and antibacterial. She continues to have persistent leukocytosis. 3. Vent dependent respiratory failure there is worsening infiltrate on the right side. I will try to remove some fluid. She continues to be antibacterial and antifungal. Zosyn duration is as per Pulmonary Team. 4. Nutrition Special order TPN was again ordered according to her electrolytes. 5. Anemia and in renal failure - continue Aranesp. Transfuse p.r.n. for hemoglobin below 8. 6. Diarrhea - The patient continues to be on Vancomycin. 7. Diabetes mellitus type 2 - The patient is getting insulin Levemir and fingersticks with sliding scale coverage.
[2020-08-23] MEDS: NOREPINEPHRINE BITARTRATE 16 MG in D5W 484 ML IV SCH (13:24)
[2020-08-23] MEDS ORDERED: POTASSIUM PHOSPHATE IV SCH ×5 (18:00)
[2020-08-23] MEDS ORDERED: CISATRACURIUM 200 MG in NS 480 ML IV SCH (18:00)
[2020-08-23] MEDS ORDERED: SODIUM CHLORIDE IV SCH ×5 (18:00)
[2020-08-23] MEDS ORDERED: [UNRECOGNIZED DRUG - OTHER] IV SCH ×5 (18:00)
[2020-08-23 18:20] LABS: HEMATOCRIT 25.7 % (36.0-47.0); HEMOGLOBIN 8.7 g/dl (12.0-15.5); MEAN CORPUSCULAR HEMOGLOBIN 30.4 pg (27.0-33.0); MEAN CORPUSCULAR HGB CONC 33.9 g/dl (32.0-36.5); MEAN CORPUSCULAR VOLUME 89.9 fl (80.0-96.0); RED BLOOD COUNT 2.86 10^6/uL (4.00-5.40)
[2020-08-23 18:26] LABS: PLATELET COUNT, AUTOMATED 52 10^3/uL (150-450); WHITE BLOOD COUNT 37.6 10^3/uL (4.0-10.0)
[2020-08-23 19:02] LABS: BLOOD UREA NITROGEN 32 MG/DL (7-18); CALCIUM LEVEL 7.6 MG/DL (8.8-10.2); CARBON DIOXIDE LEVEL 26 MEQ/L (21-32); CHLORIDE LEVEL 105 MEQ/L (98-107); CREATININE FOR GFR 0.59 MG/DL (0.55-1.30); GLOMERULAR FILTRATION RATE > 60.0 (>39); GLUCOSE, FASTING 134 MG/DL (70-100); MAGNESIUM LEVEL 2.4 MG/DL (1.8-2.4); PHOSPHORUS LEVEL 3.9 MG/DL (2.5-4.9); POTASSIUM SERUM 4.9 MEQ/L (3.5-5.1); SODIUM LEVEL 138 MEQ/L (136-145)
[2020-08-23] MEDS: LEVEMIR (INSULIN DETEMIR) 1 UNITS/0.01ML SC SCH (20:16)
[2020-08-24] VITALS (50 sets, daily range): BP systolic 68–171; BP diastolic 40–86
[2020-08-24] MEDS: fentaNYL 100 MCG/2 ML INJECTION (J3010) IV PRN ×9 (00:18→16:25)
[2020-08-24] MEDS: PIPERACILLIN/TAZOBACTAM SOD 2.25 GM in D5W MINI-BAG PLUS 50 ML IV SCH ×4 (01:02→20:20)
[2020-08-24] MEDS: propofoL 1,000 MG in IV 1 EA IV SCH ×4 (02:16→20:53)
[2020-08-24] MEDS: methylPREDNISolone 125MG 2ML VIAL IV SCH ×2 (03:03→16:18)
[2020-08-24] MEDS: MICAFUNGIN SODIUM 150 MG in D5W 100 ML IV SCH (03:03)
[2020-08-24] MEDS: hydrALAZINE 20MG/ML 1ML VIAL (J0360 PER 20MG) IV SCH ×4 (04:00→22:00)
[2020-08-24 05:04] LABS: ABG BASE EXCESS 0.3 (-2.0-2.0); ABG HCO3 24.8 MEQ/L (22.0-26.0); ABG O2 SATURATION 88.3 % (95.0-99.0); ABG PARTIAL PRESSURE CO2 39.8 mmHg (35.0-45.0); ABG STANDARD HCO3 24.6 MEQ/L (22.0-26.0); ABG TOTAL CO2 26.1 MEQ/L (23.0-31.0); ABG pH (ARTERIAL) 7.413 UNITS (7.350-7.450)
[2020-08-24 05:14] LABS: BASO # 0.1 10^3/uL (0.0-0.2); BASO % 0.2 % (0.0-1.0); EOS # 0.3 10^3/uL (0.0-0.5); EOS % 0.9 % (0.0-3.0); HEMATOCRIT 25.8 % (36.0-47.0); HEMOGLOBIN 8.6 g/dl (12.0-15.5); LYMPH # 0.6 10^3/uL (1.5-5.0); LYMPH % 1.8 % (24.0-44.0); MEAN CORPUSCULAR HEMOGLOBIN 30.1 pg (27.0-33.0); MEAN CORPUSCULAR HGB CONC 33.3 g/dl (32.0-36.5); MEAN CORPUSCULAR VOLUME 90.2 fl (80.0-96.0); MONO # 1.2 10^3/uL (0.0-0.8); MONO % 3.5 % (2.0-8.0); NEUTROPHILS # 31.2 10^3/uL (1.5-8.5); RED BLOOD COUNT 2.86 10^6/uL (4.00-5.40)
[2020-08-24 05:17] LABS: PLATELET COUNT, AUTOMATED 51 10^3/uL (150-450); WHITE BLOOD COUNT 34.3 10^3/uL (4.0-10.0)
[2020-08-24 05:25] LABS: INR 0.99; PROTHROMBIN TIME 13.3 SECONDS (12.5-14.3)
[2020-08-24 05:26] LABS: PARTIAL THROMBOPLASTIN TIME 28.8 SECONDS (24.2-38.5)
[2020-08-24 05:29] LABS: GLUCOSE, FASTING 102 MG/DL (70-100)
[2020-08-24 05:30] LABS: BLOOD UREA NITROGEN 32 MG/DL (7-18); CALCIUM LEVEL 7.9 MG/DL (8.8-10.2); CARBON DIOXIDE LEVEL 26 MEQ/L (21-32); CHLORIDE LEVEL 106 MEQ/L (98-107); CREATININE FOR GFR 0.55 MG/DL (0.55-1.30); GLOMERULAR FILTRATION RATE > 60.0 (>39); MAGNESIUM LEVEL 2.4 MG/DL (1.8-2.4); POTASSIUM SERUM 4.8 MEQ/L (3.5-5.1); SODIUM LEVEL 139 MEQ/L (136-145)
[2020-08-24] MEDS: HumaLOG INSULIN (NovoLOG) PER UNIT SC SCH ×3 (05:48→18:00)
[2020-08-24] MEDS: VANCOMYCIN ORAL SOL 250MG/5ML ORAL SYRINGE PO SCH ×3 (05:49→18:34)
[2020-08-24] MEDS: SODIUM CHLORIDE 0.9% INJ 10 ML SYR IV SCH ×2 (05:49→18:00)
[2020-08-24] MEDS: MIDAZOLAM INJ 2MG/2ML VIAL (J2250 PER 1MG) IV PRN ×3 (06:51→15:21)
[2020-08-24 06:52] LABS: PHOSPHORUS LEVEL 3.5 MG/DL (2.5-4.9)
[2020-08-24] MEDS: IPRATROPIUM 0.5MG/ALBUTEROL 2.5MG INH SOL UD 3ML (DUONEB) NEB SCH ×4 (07:13→19:23)
[2020-08-24] MEDS ORDERED: NOREPINEPHRINE 4 MG/4 ML AMP As Ordered ONE (07:40)
[2020-08-24] MEDS: NOREPINEPHRINE BITARTRATE 16 MG in D5W 484 ML IV SCH ×2 (07:45→20:53)
[2020-08-24] MEDS ORDERED: CALCIUM GLUCONATE 1,000 MG, VIAL MATE ADAPTER 1 EACH in NS 100 ML IV ONE (08:00)
--- NOTE | 2020-08-24 08:00 | REP ---
INDICATION: vent. COMPARISON: Comparison chest x-ray 08/23/2020.. TECHNIQUE: Semi-erect AP portable chest x-ray. FINDINGS: The patient is rotated slightly to the left. Endotracheal tube remains in good position at the level of the transverse aorta. Bilateral central venous lines remain in place unchanged. A nasogastric tube enters the left upper quadrant of the abdomen. Monitoring electrodes are seen as before. Diffuse interstitial lung disease persists. No new infiltrate. Heart size is unchanged. IMPRESSION: No new finding. Diffuse interstitial lung disease persists essentially unchanged. <Electronically signed by Christiano Chris > 08/24/20 [id number]
[2020-08-24] MEDS: PANTOPRAZOLE 40MG VIAL (C9113 PER 1) IV SCH ×2 (08:50→21:40)
[2020-08-24] MEDS: CHLORHEXIDINE GLUCONATE 0.12 % 15ML UDC (PERIDEX ORAL RINSE) MT SCH ×2 (08:50→21:09)
[2020-08-24] MEDS ORDERED: SODIUM CHLORIDE 0.9% INJ 10 ML SYR IV PRN (11:15)
[2020-08-24] MEDS: MIDAZOLAM HCL 100 MG in D5W 80 ML IV SCH (11:34)
--- NOTE | 2020-08-24 11:45 | CCN ---
CRITICAL CARE NOTE DATE: 08/24/2020 SUBJECTIVE: The patient was seen and examined this morning during bedside rounds. Yesterday afternoon the patient was noted to have episodes of increased tachypnea and ventilator desynchrony where she was having peak pressures up into the 50's persistently. She was given p.r.n. Fentanyl and p.r.n. Versed with minimal improvement. The patient's plateau pressures at that time also appeared elevated although with her tachypnea and respiratory effort, was somewhat difficult to assess. She was given a dose of Rocuronium one time for a paralytic in order to assess her peak and plateau pressures more accurately. With the Rocuronium her peak and plateau pressures reduced into the 30's with peak of 34 and a plateau of 31 to 32. Afterwards the patient continued to have occasional episodes where she would have periodic vent desynchrony with elevated peak pressures. She was ordered for Nimbex for a paralytic if she did have persistent elevations and vent dyssynchrony, however overnight she did not require the Nimbex. She did continue to require her p.r.n. Fentanyl which has helped with her tachypnea and vent desynchrony somewhat. She is still on Versed and Propofol for sedation as well. She did also require a low dose of Levophed overnight and is currently on one mcg an hour although she continues to have somewhat labile blood pressures. The patient does continue to have significant output from her NG tube to low intermittent suction. She has very diminished bowel sounds. The patient has also continued to be hypothermic on the Lulu hugger. OBJECTIVE: PHYSICAL EXAMINATION: VITAL SIGNS: Temperature 95.4, pulse 78, respirations 36, blood pressure 113/57, O2 sat 99% on 75% FiO2. INTAKE AND OUTPUT: In 2.4 liters, out 2.9, net negative 531 mL. GENERAL APPEARANCE: The patient is intubated and sedated. She is tachypneic and withdraws minimally to painful stimuli. She did open her eyes but was not tracking or following commands. HEENT: Normocephalic and atraumatic. Pupils are reactive to light bilaterally although sluggish. There are moist mucous membranes noted. NECK: Supple. Trachea is midline. She has a right IJ tunneled dialysis catheter with evidence of some dried around the gauze. The left IJ triple lumen is in place. CARDIAC: Regular rate and rhythm, normal S1, S2, possible faint murmur auscultated. PULMONARY: There are coarse ventilator breath sounds bilaterally with crackles at the bases and occasional rhonchi. No significant wheezing. ABDOMEN: Obese, soft, nontender, nondistended. There are areas of ecchymosis in her lower abdomen. She has very hypoactive and diminished bowel sounds. EXTREMITIES: There is improvement with only trace lower extremity edema in the lower extremities. There is continued pitting edema in her upper extremities. She does have a right arm PICC line in place. LABORATORY STUDIES: WBC 34.3, hemoglobin 8.6, platelet count 51. Chemistries - sodium is 139, potassium 4.8, chloride 106, bicarbonate is 26, BUN 32, creatinine 0.55, glucose is 102. Calcium is 7.9, magnesium 2.4, INR is 0.69. PTT 28.8. PH 7.413, pco2 of 39.8, pO2 of 52. IMAGING: Chest x-ray shows diffuse interstitial markings chronically bilaterally with some increasing opacity in the right lung. Her ET tube is in satisfactory position and her NG tube is coursing below the left hemidiaphragm. Her other lines are unchanged. ASSESSMENT AND PLAN: Ms. Calero is a 75-year-old female with a past medical history of hypertension, hyperlipidemia, chronic kidney disease, prior history of CVA who presented with encephalopathy and acute hypoxic respiratory failure. 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 She was intubated and placed on mechanical ventilation and started on high doses of steroids. She was transferred to an outside medical facility for the possibility of plasma phoreses. She did have mild elevations in her P-ANCA and particularly with the MPO antibodies, however anti-GVM and C-ANCA's were negative. The patient was not thought clinically to have vasculitis at the outside hospital and her steroids were discontinued. She was transferred back to [facility] after having endotracheal tube exchange just prior to her transfer on 08/15/20. Upon arrival to [facility], she did have another episode of hemorrhage and repeat bronchoscopy done which had shown evidence of what appeared to be fungal mucous plugs noted. Her prior sputum and bronchoscopy cultures have grown nikole glabrata as well as aspergillus. The patient continued to require significant support on the ventilator as well as sedation for her vent desynchrony. She also is on CVVHD still for her acute renal failure. 1. Neurologic - The patient is intubated and sedated. She does continue to require significant amounts of sedation due to her tachypnea and vent desynchrony. She did also require a dose of paralytic yesterday. - Continue the patient on Versed drip and Propofol for sedation she has Fentanyl p.r.n. for analgesia and tachypnea. If she has worsening vent desynchrony with significant elevations in her peak and plateau pressures, then she may need additional paralytic with Nimbex. If she were to be started on Nimbex, would need to monitor train of fours for a goal of 2/4. 2. Cardiac - The patient has a history of somewhat labile blood pressures and intermittently is requiring Levophed to maintain her MAP above 65. - The patient was restarted on Levophed overnight which we will continue as needed to maintain the MAP above 65. - For vascular access, the patient has a left IJ triple lumen catheter in place as well as a right sided PICC line. She also has a tunneled hemodialysis catheter on the right IJ. 3. Pulmonary - patient with acute hypoxemic respiratory failure with a possibility of a pulmonary renal syndrome. She also had likely a bacterial pneumonia as well as fungal pneumonia with cultures previously growing nikole glabrata as well as aspergillus. - We will continue the patient with Micafungin we will discuss with the Pharmacy about the potential of Voriconazole, although we appear to have only p.o. formulations, and there is interaction with the Fentanyl which she does require. Changing to Voriconazole would be in particular for aspergillus pneumonia. - We will continue broad spectrum antibiotics with Zosyn. she does continue to have leukocytosis. Her repeat procalcitonin is still pending. She had completed a course of Linezolid. - We will continue with Solu-Medrol which was tapered down to 60 mg q. 12 hours. We will taper down today to 40 mg q. 12 hours. - Continue with daily ABGs and chest x-rays while intubated and continue with vent bundle care with head of bed elevation and Chlorhexidine mouthwash. 4. Renal - patient with acute renal failure with a prior history of chronic kidney disease. She is still on CVVHD as she continues to have minimal urine output. - Appreciate Nephrology consult and recommendations we will continue CVVHD as per Nephrology with management of electrolytes as per Nephrology. - She is still on TPN for nutrition managed by Nephrology. 5. GI - patient had worsening leukocytosis as well as episodes of diarrhea she was started on p.o. Vancomycin for a possibility of C-diff infection. We will continue with the p.o. Vancomycin for now. - The patient continues to have hypoactive bowel sounds and significant output from her NG tube she was unable to tolerate tube feeds previously. We will continue with TPN for now for nutritional support. 6. Heme patient with anemia, likely secondary to critical illness as well as possibly of a GI bleed. She had required p.r.n. transfusions of PRBC, but her hemoglobin has remained stable now in the past 24 hours. - She continues to have thrombocytopenia, likely multifactorial in the setting of her critical illness as well as from her medications and sepsis. She does not have any significant coagulopathy noted today we will continue to monitor her platelets and transfuse as needed. GI prophylaxis - Protonix twice daily. DVT prophylaxis TEDS and SCDs. Code Status full code. The patient's daughter from [place] had arrived yesterday and was able to visit briefly with the patient. The son who is eldest is planning to arrive from [place] tomorrow with a plan for a family meeting and discussion of potential comfort measures only. Total critical care time spent not including any procedures approximately 40 minutes. MTDD
--- NOTE | 2020-08-24 14:43 | IPN ---
NEPHROLOGY PROGRESS NOTE DATE: 08/24/2020 SUBJECTIVE: The patient was seen and examined at the bedside today morning in the ICU. Last 24-hour events were noted. She continues to be on CVVHDF. She is requiring Levophed again now. She was around one and a half mcg in the morning when I saw her. Blood pressures are optimal. She is tolerating the fluid removal. She continues to be anuric. FiO2 requirement on the vent remains at 60%. She was very dyschronous with the vent yesterday and she needed to be paralyzed yesterday by Pulmonary Service. OBJECTIVE: VITAL SIGNS: Temperature is 97 degrees Fahrenheit, blood pressure 156/67, pulse is 89, respiratory rate of 40, saturating 94% on the vent with 70% FiO2 now. INTAKE AND OUTPUT: Urine output recorded as 21 mL. Gastric drainage is 250 mL. Ultrafiltration with CRRT is 1.4 liters so far. Weight in the bed scale is 75.7 kg. PHYSICAL EXAMINATION: GENERAL APPEARANCE: The patient is intubated, sedated. Eyes are closed. She has an endotracheal tube and orogastric tube. HEAD AND NECK: Neck is supple. She has a left IJ triple lumen catheter. CARDIOVASCULAR: S1, S2, regular rate. EXTREMITIES: 2+ edema of the bilateral upper and lower extremities. RESPIRATORY: Mildly decreased breath sounds at the bases. She is vent dependent at this time. ABDOMEN: Soft. She has multiple hematomas in the abdominal wall. Decreased bowel sounds are noted. GENITOURINARY: She has an indwelling Lauren catheter and a rectal tube. MUSCULOSKELETAL: 2+ edema of the bilateral lower and upper extremities, as mentioned above. BLOWER OPERATOR: She is sedated at this time, however she moves extremities on painful stimuli. LAB REVIEW: CBC showed a WBC of 34.3, hemoglobin 8.6, platelet count 51. BMP showed sodium of 139, potassium 4.8, chloride 106, bicarbonate 26, BUN 32, creatinine is 0.5. IMAGING: A chest x-ray was done today morning which showed no new findings. Diffuse interstitial lung disease persists. CURRENT INPATIENT MEDICATIONS: The patient's medications were all reviewed by myself. She continues to be on IV Zosyn and IV Micafungin and Levophed has been restarted as mentioned above in my note. ASSESSMENT AND PLAN: 1. Acute anuric renal failure the patient remains dependent on CVVHDF. Once the patient is able to be weaned off Levophed, then I will switch her to intermittent hemodialysis. Fluid is being removed according to MAP parameters. 2. Septic shock - The patient is back on Levophed. She is currently on combination of antifungal and antibacterial. Clinically she is not making much progress. 3. Loose stools and diarrhea - The patient is on oral Vancomycin at this time for possible C-diff. 4. Vent dependent respiratory failure - The patient is still requiring 70% FiO2 at this time. Vent management is as per Pulmonary Team. 5. Nutrition special TNP order was again written for her. She is not tolerating tube feeds and she has diarrhea. 6. Diabetes mellitus type 2 - continue insulin Levemir and fingerstick coverage. 7. Disposition the patient is not making much progress clinically. Family is discussing the goals of care with the Pulmonary Critical Care Service. At this point the patient is a full code.
[2020-08-24 17:42] LABS: ABG BASE EXCESS -5.8 (-2.0-2.0); ABG HCO3 21.2 MEQ/L (22.0-26.0); ABG O2 SATURATION 94.1 % (95.0-99.0); ABG PARTIAL PRESSURE CO2 48.8 mmHg (35.0-45.0); ABG PARTIAL PRESSURE O2 80.7 mmHg (75.0-100.0); ABG STANDARD HCO3 19.6 MEQ/L (22.0-26.0); ABG TOTAL CO2 22.7 MEQ/L (23.0-31.0); ABG pH (ARTERIAL) 7.256 UNITS (7.350-7.450)
[2020-08-24 17:51] LABS: HEMATOCRIT 27.1 % (36.0-47.0); HEMOGLOBIN 8.5 g/dl (12.0-15.5); MEAN CORPUSCULAR HEMOGLOBIN 29.8 pg (27.0-33.0); MEAN CORPUSCULAR HGB CONC 31.4 g/dl (32.0-36.5); MEAN CORPUSCULAR VOLUME 95.1 fl (80.0-96.0); RED BLOOD COUNT 2.85 10^6/uL (4.00-5.40)
[2020-08-24 17:55] LABS: PLATELET COUNT, AUTOMATED 63 10^3/uL (150-450); WHITE BLOOD COUNT 39.1 10^3/uL (4.0-10.0)
[2020-08-24] MEDS ORDERED: [UNRECOGNIZED DRUG - OTHER] IV SCH ×7 (18:00)
[2020-08-24] MEDS ORDERED: SODIUM PHOSPHATE IV SCH ×7 (18:00)
[2020-08-24] MEDS ORDERED: ACETAMINOPHEN *IV* 1,000 MG in IV 1 EA IV ONE (18:00)
[2020-08-24] MEDS ORDERED: SODIUM CHLORIDE IV SCH ×7 (18:00)
[2020-08-24 18:23] LABS: BILIRUBIN,DIRECT 1.4 MG/DL (0.0-0.2); BILIRUBIN,TOTAL 1.6 MG/DL (0.2-1.0); BLOOD UREA NITROGEN 41 MG/DL (7-18); CALCIUM LEVEL 7.6 MG/DL (8.8-10.2); CARBON DIOXIDE LEVEL 25 MEQ/L (21-32); CHLORIDE LEVEL 104 MEQ/L (98-107); CREATININE FOR GFR 0.83 MG/DL (0.55-1.30); GLOMERULAR FILTRATION RATE > 60.0 (>39); GLUCOSE, FASTING 103 MG/DL (70-100); MAGNESIUM LEVEL 2.4 MG/DL (1.8-2.4); PHOSPHORUS LEVEL 5.6 MG/DL (2.5-4.9); POTASSIUM SERUM 5.6 MEQ/L (3.5-5.1); SODIUM LEVEL 137 MEQ/L (136-145)
[2020-08-24] MEDS ORDERED: CALCIUM GLUCONATE 1,000 MG in D5W MINI-BAG PLUS 100 ML IV ONE ×2 (20:00→21:00)
[2020-08-24 20:40] LABS: ABG BASE EXCESS -1.9 (-2.0-2.0); ABG HCO3 24.1 MEQ/L (22.0-26.0); ABG MODE OF VENT prvc; ABG O2 LITER FLOW 70; ABG O2 SATURATION 98.4 % (95.0-99.0); ABG PARTIAL PRESSURE CO2 47.1 mmHg (35.0-45.0); ABG PARTIAL PRESSURE O2 110.8 mmHg (75.0-100.0); ABG PATIENT RESP RATE 32 /MIN; ABG PEEP 5; ABG STANDARD HCO3 22.9 MEQ/L (22.0-26.0); ABG TIDAL VOLUME 400 cc; ABG TOTAL CO2 25.5 MEQ/L (23.0-31.0); ABG pH (ARTERIAL) 7.326 UNITS (7.350-7.450)
[2020-08-24] MEDS: LEVEMIR (INSULIN DETEMIR) 1 UNITS/0.01ML SC SCH (21:10)
[2020-08-25] VITALS (65 sets, daily range): BP systolic 67–169; BP diastolic 43–81
[2020-08-25] MEDS: VANCOMYCIN ORAL SOL 250MG/5ML ORAL SYRINGE PO SCH ×3 (00:22→13:26)
[2020-08-25 00:34] LABS: ALBUMIN 1.6 GM/DL (3.2-5.2); BLOOD UREA NITROGEN 36 MG/DL (7-18); CALCIUM LEVEL 7.9 MG/DL (8.8-10.2); CARBON DIOXIDE LEVEL 25 MEQ/L (21-32); CHLORIDE LEVEL 105 MEQ/L (98-107); CREATININE FOR GFR 0.72 MG/DL (0.55-1.30); GLOMERULAR FILTRATION RATE > 60.0 (>39); GLUCOSE, FASTING 160 MG/DL (70-100); PHOSPHORUS LEVEL 4.8 MG/DL (2.5-4.9); POTASSIUM SERUM 5.1 MEQ/L (3.5-5.1); SODIUM LEVEL 138 MEQ/L (136-145)
[2020-08-25] MEDS: PIPERACILLIN/TAZOBACTAM SOD 2.25 GM in D5W MINI-BAG PLUS 50 ML IV SCH ×3 (01:22→13:56)
[2020-08-25] MEDS: HumaLOG INSULIN (NovoLOG) PER UNIT SC SCH ×3 (01:22→12:00)
[2020-08-25] MEDS: propofoL 1,000 MG in IV 1 EA IV SCH ×4 (02:18→17:39)
[2020-08-25] MEDS: fentaNYL 100 MCG/2 ML INJECTION (J3010) IV PRN ×2 (02:19→18:29)
[2020-08-25] MEDS: CISATRACURIUM 200 MG in NS 480 ML IV SCH ×2 (02:19→12:14)
[2020-08-25] MEDS: hydrALAZINE 20MG/ML 1ML VIAL (J0360 PER 20MG) IV SCH ×3 (03:53→17:38)
[2020-08-25] MEDS: MICAFUNGIN SODIUM 150 MG in D5W 100 ML IV SCH (04:21)
[2020-08-25] MEDS: methylPREDNISolone 125MG 2ML VIAL IV SCH (04:22)
[2020-08-25 05:50] LABS: ABG BASE EXCESS -1.7 (-2.0-2.0); ABG HCO3 24.6 MEQ/L (22.0-26.0); ABG O2 SATURATION 93.2 % (95.0-99.0); ABG PARTIAL PRESSURE CO2 49.7 mmHg (35.0-45.0); ABG TOTAL CO2 26.1 MEQ/L (23.0-31.0); ABG pH (ARTERIAL) 7.312 UNITS (7.350-7.450)
[2020-08-25 05:58] LABS: HEMATOCRIT 23.3 % (36.0-47.0); HEMOGLOBIN 7.4 g/dl (12.0-15.5); MEAN CORPUSCULAR HEMOGLOBIN 29.7 pg (27.0-33.0); MEAN CORPUSCULAR HGB CONC 31.8 g/dl (32.0-36.5); MEAN CORPUSCULAR VOLUME 93.6 fl (80.0-96.0); RED BLOOD COUNT 2.49 10^6/uL (4.00-5.40)
[2020-08-25 05:59] LABS: PLATELET COUNT, AUTOMATED 59 10^3/uL (150-450); WHITE BLOOD COUNT 35.4 10^3/uL (4.0-10.0)
[2020-08-25] MEDS: SODIUM CHLORIDE 0.9% INJ 10 ML SYR IV SCH ×2 (06:00→18:12)
[2020-08-25] MEDS: MIDAZOLAM HCL 100 MG in D5W 80 ML IV SCH (06:19)
[2020-08-25 06:26] LABS: BLOOD UREA NITROGEN 33 MG/DL (7-18); CALCIUM LEVEL 7.4 MG/DL (8.8-10.2); CARBON DIOXIDE LEVEL 24 MEQ/L (21-32); CHLORIDE LEVEL 103 MEQ/L (98-107); CREATININE FOR GFR 0.62 MG/DL (0.55-1.30); GLOMERULAR FILTRATION RATE > 60.0 (>39); GLUCOSE, FASTING 114 MG/DL (70-100); MAGNESIUM LEVEL 2.3 MG/DL (1.8-2.4); PHOSPHORUS LEVEL 4.6 MG/DL (2.5-4.9); POTASSIUM SERUM 4.6 MEQ/L (3.5-5.1); SODIUM LEVEL 136 MEQ/L (136-145)
[2020-08-25] MEDS ORDERED: CALCIUM GLUCONATE 1,000 MG in D5W MINI-BAG PLUS 100 ML IV ONE ×2 (06:30→10:00)
[2020-08-25] MEDS: IPRATROPIUM 0.5MG/ALBUTEROL 2.5MG INH SOL UD 3ML (DUONEB) NEB SCH ×3 (08:01→15:35)
[2020-08-25] MEDS ORDERED: VORICONAZOLE 200 MG PO SCH (09:00)
[2020-08-25] MEDS: CHLORHEXIDINE GLUCONATE 0.12 % 15ML UDC (PERIDEX ORAL RINSE) MT SCH (09:04)
[2020-08-25] MEDS: PANTOPRAZOLE 40MG VIAL (C9113 PER 1) IV SCH (09:04)
[2020-08-25] MEDS ORDERED: SODIUM CHLORIDE 0.9% INJ 10 ML SYR IV PRN (10:15)
--- NOTE | 2020-08-25 10:20 | REP ---
INDICATION: Daily PCXR. COMPARISON: 08/24/2020, 08/23/2020, 08/22/2020. TECHNIQUE: Portable AP seated chest FINDINGS: Tracheostomy tube seen and tip above 3 cm from the kasey. Nasogastric tube, right and left jugular catheters are all unchanged. There is extensive the underlying interstitial fibrosis and alveolar and patchy consolidation bilaterally in the lower lung zones and perihilar region right as well as upper lung zones to lesser degree. Allowing for differences in positioning technique, I do not see any change from yesterday. IMPRESSION: Lines and tubes unchanged. The cardio pulmonary appearance is also unchanged on this examination. Underlying interstitial fibrosis and extensive alveolar and interstitial infiltrates present. Cardiomediastinal silhouette as before. <Electronically signed by Gabino Rodriguez > 08/25/20 [id number]
--- NOTE | 2020-08-25 13:05 | IPN ---
NEPHROLOGY PROGRESS NOTE DATE: 08/25/2020 SUBJECTIVE: Patient was seen and examined at the bedside today morning in the ICU. She continues to be intubated, sedated. She is requiring Levophed at 1 mcg. She is on CVVHDF and getting TPN. FIO2 requirement on the vent is 60% at this time. OBJECTIVE: VITAL SIGNS: Temperature 97.5 degrees Fahrenheit, blood pressure 101/62, pulse 66, respiratory rate 32, saturating 94% on the vent with 60% FIO2. INTAKE AND OUTPUT: Patient is anuric at this time. Urine output is only 27 mL. Gastric drainage is 200 mL. Ultrafiltration with CVVHDF is 2.8 liters so far. PHYSICAL EXAMINATION: GENERAL: Patient is intubated, sedated, paralyzed. HEAD/NECK: Pupils equally round and reactive to light. She has an endotracheal tube and an orogastric tube. CVS: S1, S2, regular rate. 2+ edema of the bilateral upper and lower extremities. RESPIRATORY: Mildly decreased breath sounds at the bases. Otherwise no active rales or rhonchi. ABDOMEN: Soft, positive bowel sounds, but they are sluggish. Multiple small hematomas are noted in the abdomen. GENITOURINARY: She has an indwelling Lauren catheter. MUSCULOSKELETAL: 2+ edema of the lower extremities. No clubbing or cyanosis. CLINICAL OB: Patient is intubated, sedated and paralyzed at this time. LABORATORY REVIEW: CBC showed WBC 35.4, hemoglobin 7.4, platelets 59,000. ABG showed pH 7.31, pCO2 49, pO2 72, bicarb 26, O2 sat 93%. BMP showed sodium 136, potassium 4.6, chloride 103, bicarb 24, BUN 33, creatinine 0.6. Calcium 7.4. MICROBIOLOGY: Bronchoalveolar lavage result is finally back and patient is growing Aspergillus fumigatus. IMAGING: A chest x-ray was done today morning, which showed cardiopulmonary appearance is unchanged, extensive interstitial alveolar infiltrates are present. CURRENT INPATIENT MEDICATIONS: Patient's medications were all reviewed by myself. I.V. Micafungin has stopped. She has been started on Voriconazole. I have decreased the Levemir to 40 mg I.V. twice a day. She continues to be on p.o. Vancomycin. She also continues to be on I.V. Zosyn. ASSESSMENT AND PLAN: 1. Acute anuric renal failure: Patient continues to be dependent on CVVHDF. New CVVHDF order and fluid removal parameters were changed. 2. Septic shock: Patient is growing Aspergillus fumigatus in bronchoalveolar lavage. Antifungal has been changed into oral Voriconazole. I.V. Voriconazole is not available. Micafungin has been stopped. She is still requiring low dose of Levophed. I recommend stopping her Zosyn as well. 3. Loose stools and diarrhea: Continue oral Vancomycin. Patient is not tolerating tube feeds. 4. Nutrition: Patient continues to be on TPN. Special order TPN was ordered today. 5. 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 Continue Voriconazole. 6. Diabetes mellitus type 2: Insulin Levemir and fingerstick coverage at this time. 7. Anemia: Hemoglobin level is below 8. I have ordered 1 unit of PRBC transfusion. DISPOSITION: Patient is DNR at this time. Continue current care. Family members are going to discuss comfort measures with the pulmonary team today. Total critical care time spent in the management of this patient today morning in the ICU, excluding all the procedures, was 35 minutes.
--- NOTE | 2020-08-25 13:34 | CCN ---
CRITICAL CARE NOTE DATE: 08/25/2020 SUBJECTIVE: Patient was seen and examined this morning during bedside rounds. Yesterday patient was noted to have episodes of low grade fever. She had previously been hypothermic and had been continued on a Lulu Hugger. She was given IV Tylenol instead for her fever and did have improvement. She was then hypothermic again overnight and required replacement of the Lulu Hugger to maintain her temperature. Patient was also having episodes of vent dyssynchrony yesterday and did require paralytic with Nimbex with improvement in her vent dyssynchrony. She also had intermittently required a low dose of Levophed yesterday which did continue on into the morning. Patient has remained on CVVHD and occasionally is able to have some slight fluid removal with CVVHD. Her bronchoscopy cultures did return this morning which grew Aspergillus species, and she was changed to voriconazole instead of the micafungin. OBJECTIVE: VITALS: Temperature 96.9, pulse 72, respirations 32, blood pressure 108/64, O2 sat 97% on 60% FiO2. In 2.0, out 2.7. GENERAL: Patient is intubated and sedated. She is currently paralyzed. She is not withdrawing to painful stimuli. HEENT: Normocephalic/atraumatic. Pupils are reactive to light bilaterally although sluggish. There are moist mucous membranes noted. NECK: Supple. Trachea is midline. She has a right IJ tunneled dialysis catheter as well as a left IJ triple lumen catheter in place. CARDIAC: Regular rate and rhythm. Normal S1 and S2. Possible faint murmur auscultated. PULMONARY: There are coarse ventilator breath sounds bilaterally with a few crackles at the bases. No significant wheezing or rhonchi. ABDOMEN: Obese, soft, nontender, nondistended. There are areas of ecchymosis in her lower abdomen. She has hypoactive and diminished bowel sounds. EXTREMITIES: There is +1 pitting edema in the bilateral lower extremities. She has some continued pitting edema in her upper extremities. There is a right arm PICC line in place. LABORATORY DATA: WBC 35.4, hemoglobin 7.4, platelets 59. Chemistries: Sodium 136, potassium 4.6, chloride 103, bicarb 24, BUN 33, creatinine 0.62, glucose 114, albumin 1.6, calcium 7.4. ABG: pH 7.312, pCO2 49.7, pO2 72. PTT 26.8. IMAGING: Chest x-ray this morning shows unchanged diffuse interstitial markings bilaterally which are chronic. Her ET tube is in satisfactory position. She has an OG tube as well, and her other lines are unchanged. ASSESSMENT AND PLAN: Ms. Calero is a 75-year-old female with a past medical history of hypertension, hyperlipidemia, CKD, and prior history of CVA who presented with encephalopathy and acute hypoxemic respiratory failure. 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 She was intubated and placed on mechanical ventilation and started on high dose steroids initially. She did have antibodies which were positive for MPO with P-ANCA mildly elevated. She had negative anti-GBM and C-ANCA. She was transferred to an outside medical facility for the possibility of plasmapheresis. Their suspicion, however, for vasculitis was lower, and she was not given plasmapheresis, and her steroids were discontinued. She was transferred back to [facility] on 08/15/2020 where upon arrival she did have another episode of hemorrhage and had a repeat bronchoscopy performed. During that bronchoscopy, she appeared to have some fungal mucous plugs noted. Her previous sputum cultures and bronch cultures had grown Aiyana glabrata as well as Aspergillus. She was on micafungin for her fungal infection. Patient was also still on broad spectrum antibiotics and was restarted on steroids. She was also continued on CVVHD for her acute renal failure. 1. Neurologic: Patient is intubated and sedated. She is also paralyzed with a Nimbex drip given her significant vent dyssynchrony. Will continue to monitor her train of four with initial goal of two to three out of four. Will likely hold her Nimbex later this morning and continue with just the Versed drip and propofol for sedation with fentanyl p.r.n. for analgesia. 2. Cardiac: Patient has a history of somewhat labile blood pressures at times and has intermittently been requiring Levophed usually at low doses to maintain her MAP above 65. She has not had any significant lactic acidosis. For vascular access, patient has a left IJ triple lumen catheter as well as a right-sided PICC line. She also has a tunneled hemodialysis catheter in the right IJ. 3. Pulmonary: Patient with acute hypoxemic respiratory failure with the possibility of pulmonary-renal syndrome. She also had likely superimposed bacterial pneumonia as well as a fungal pneumonia with cultures previously growing Aiyana glabrata as well as Aspergillus. Her repeat bronchoscopy continues to show Aspergillus fumigatus, and so her micafungin was changed to voriconazole. a. She has completed a course of linezolid during her hospitalization. She is still on Zosyn for broad spectrum antibiotics. b. She is still on Solu-Medrol which was tapered to 40 mg q.12 hours. c. Continue with daily ABGs and check saturations while intubated and continue with vent bundle care with head of bed elevation and chlorhexidine mouthwash. 4. Renal: Patient with acute renal failure with a prior history of CKD. She is continue on CVVHD as she continues to have minimal urine output as well as electrolyte derangements when off of CVVHD. a. Appreciate Nephrology consult and recommendations. She is also still on TPN, managed by Nephrology for nutritional support. 5. GI: Patient with worsening leukocytosis and continued episodes of diarrhea. She was started on p.o. vancomycin for the possibility of C. difficile infection. She did have some improvement in her leukocytosis with the p.o. vancomycin, and given her significant antibiotic needs, would continue at least for prophylaxis at this time. a. Patient continues to have diminished bowel sounds and continued output from her NG tube. She had difficulty tolerating tube feeds previously, and now that she is paralyzed will continue her n.p.o. and with TPN for nutrition. 6. Heme: Patient with anemia likely secondary to critical illness as well as possibility of GI bleed. She has continued to require p.r.n. transfusions of PRBC, and her hemoglobin did trend down today. She is due for another unit with dialysis. a. Thrombocytopenia likely multifactorial in the setting of her critical illness as well as from her medications and sepsis. She has not had any worsening thrombocytopenia and no significant coagulopathy noted but will continue to monitor and transfuse as needed. 7. GI prophylaxis: Protonix. 8. DVT prophylaxis: TEDS and SCDs. 9. Code status: DNR. After discussion with the patient's son, Edis, as well as with the daughter, patient's family yesterday had made her DNR and is still planning for a family meeting later this afternoon to discuss comfort measures and palliative extubation. TOTAL CRITICAL CARE TIME SPENT NOT INCLUDING PROCEDURES: Approximately 55 minutes.
[2020-08-25] MEDS ORDERED: methylPREDNISolone 125MG 2ML VIAL IV SCH (16:00)
[2020-08-25] MEDS ORDERED: MORPHINE SULF IN 0.9% NACL 100 MG in IV 1 EA IV SCH ×2 (17:39)
[2020-08-25] MEDS ORDERED: ONDANSETRON 4MG/2ML VIAL IV PRN (17:45)
[2020-08-25] MEDS ORDERED: SCOPOLAMINE 1MG TRANSDERMAL PATCH TOP PRN (17:45)
[2020-08-25] MEDS ORDERED: [UNRECOGNIZED DRUG - OTHER] IV SCH ×5 (18:00)
[2020-08-25] MEDS ORDERED: POTASSIUM PHOSPHATE IV SCH ×5 (18:00)
[2020-08-25] MEDS ORDERED: SODIUM CHLORIDE IV SCH ×5 (18:00)
[2020-08-25] MEDS: MIDAZOLAM INJ 2MG/2ML VIAL (J2250 PER 1MG) IV PRN (18:28)
[2020-08-25] MEDS ORDERED: fentaNYL 100 MCG/2 ML INJECTION (J3010) IV ONE (19:00)
--- NOTE | 2020-08-25 20:32 | DS.PDOC ---
Discharge Summary General Date of Admission Aug 15, 2020 at 01:36 Date of Discharge 08/25/20 Discharge Summary PROCEDURES PERFORMED DURING STAY: Central line placement, tunneled hemodialysis catheter ADMITTING DIAGNOSES: 1. Acute hypoxemic respiratory failure 2. Hemoptysis, anemia 3. Pneumonia, fungal pneumonia 4. Acute on chronic renal failure 5. Septic shock 6. Encephalopathy DISCHARGE DIAGNOSES: 1. Acute hypoxemic respiratory failure 2. Pulmonary hemorrhage 3. Pneumonia, fungal pneumonia 4. Acute on chronic renal failure 5. Septic shock 6. Encephalopathy 7. Protein malnutrition 8. GIB 9. Thrombocytopenia COMPLICATIONS/CHIEF COMPLAINT: Respiratory And Renal Failure. HISTORY OF PRESENT ILLNESS: 75-year-old female with a history of RA, CAD who presented to [facility] initially in a prior admission with altered mental status, hypotension, and fever, thought to initially have urosepsis and medication overdose. Patient then was noted during that admission to have acute hypoxemic respiratory failure requiring intubation and mechanical ventilation. Patient was also noted to have acute on chronic renal failure with proteinuria/hematuria raising suspicion for a pulmonary-renal syndrome. She was started on high doses of corticosteroids with solumedrol and transferred to [facility] for consideration of plasmapheresis. Despite mild elevations in ANCAs with myeloperoxidase antibody being positive here, it was felt that this was not a pulmonary renal syndrome by the crime scene specialist there. Anti-GBM was negative at [place]. C-ANCA was unremarkable. P-ANCA was slightly elevated. Rheumatology felt that if she had this severe presentation of a pulmonary renal syndrome, she would likely have higher ANCA levels. She was monitored there, had bronchoalveolar lavage theday she presented. Serial lavages did not show any evidence for alveolar hemorrhage. The results of the cytology from the bronchoalveolar lavage showed reactive pneumocytes, histiocytes, benign bronchial cells. There did not appear to be any transbronchial biopsies or actual tissue obtained. It does not appear that she had a kidney biopsy either. It was felt that this was secondary to sepsis. She had an elevated procalcitonin. She was changed to linezolid and Zosyn. She did require CRRT the first day. She continued to have altered mental status and continued hypoxic respiratory failure. MRI of the brain there again showing multiple old infarcts consistent with her prior history of multiple CVA. On 08/14/2020 she was started on Micafungin because of steroid use and findings of Aiyana glabrata in sputum and urine. There was also aspergillus species in the sputum and because of her ongoing hypo xic respiratory failure this was initiated. Endotracheal tube was exchanged just prior to transfer on 08/14/2020 due to a cuff leak. They had stopped steroids as they felt this was not a vasculitis. Her last steroid dose appeared to be August 11. She has had excessive mucus and mucus plugging. CT angio was repeated on August 12 at [facility] which did not show any evidence of pulmonary embolism, considered with bilateral patchy consolidations, mostly ground glass with predominance in the bilateral lower lobes. Chest x-ray had continued to worsen over time. Antibiotic regimen has been linezolid and Zosyn while at [facility] and then added Micafungin on 08/14/2020. HOSPITAL COURSE: Upon transfer to [facility] on 08/15/20 patient was hypoxic. She started having vo luminous hemorrhage from entrotracheal tube again and solumedrol was restarted due to concern still for a vasculitic process. Patient also with worsening metabolic acidosis and uremia requiring re-initiation of hemodialysis with CVVHD. Patient continued to be hypoxic and had a repeat bronchoscopy performed which showed old clots and mucous plugs with white/brown plugs consistent with fungal process. BAL grew mold species. She was continued on broad spectrum antibiotics and micafungin. Patient continued to have persistent diffuse increased interstitial markings on CXR and required continued significant support on the ventilator. She also had difficulty weaning sedation due to vent dysynchrony. Patient had increasing leukocytosis up to 45.3K with hypothermia and worsening thrombocytopenia thought to be secondary to sepsis. She had also continued episodes of hypotension intermittently requiring levophed for blood pressure support. Her initial C diff was negative but patient was having foul smelling liquid stools. She was started on PO vancomycin due to suspicion of C diff as well as due to her prolonged course of broad spectrum antibiotics for prophylaxis. Patient had also been on TPN during this stay due to inability to tolerate tube feeds. 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 Patients son had been updated regularly on her condition. Patient had been intubated now for almost 3 weeks and the family was deciding about possibility for tracheostomy. Patient's family did understand her poor prognosis and had agreed to make her code state DNR. After an extensive discussion with her children, her daughter Abby Angel and son Edis on 08/25/20 the family stated that she would not have wanted prolonged mechanical ventilation including tracheostomy tube placement. The decision was then made for a palliative extubation with comfort measures only. Patient was pronounced at 7:09pm DISCHARGE MEDICATIONS: Please see below. ALLERGIES: Please see below. PHYSICAL EXAMINATION ON DISCHARGE: VITALS: Temperature 96.9, pulse 72, respirations 32, blood pressure 108/64, O2 sat 97% on 60% FiO2. In 2.0, out 2.7. GENERAL: Patient is intubated and sedated. She is currently paralyzed. She is not withdrawing to painful stimuli. HEENT: Normocephalic/atraumatic. Pupils are reactive to light bilaterally although sluggish. There are moist mucous membranes noted. NECK: Supple. Trachea is midline. She has a right IJ tunneled dialysis catheter as well as a left IJ triple lumen catheter in place. CARDIAC: Regular rate and rhythm. Normal S1 and S2. Possible faint murmur auscultated. PULMONARY: There are coarse ventilator breath sounds bilaterally with a few crackles at the bases. No significant wheezing or rhonchi. ABDOMEN: Obese, soft, nontender, nondistended. There are areas of ecchymosis in her lower abdomen. She has hypoactive and diminished bowel sounds. EXTREMITIES: There is +1 pitting edema in the bilateral lower extremities. She has some continued pitting edema in her upper extremities. There is a right arm PICC line in place. LABORATORY DATA: Please see below. IMAGING: Chest x-ray this morning shows unchanged diffuse interstitial markings bilaterally which are chronic. Her ET tube is in satisfactory position. She has an OG tube as well, and her RIJ tunneled HD catheter and LIJ triple lumen are unchanged PROGNOSIS: Poor- DIET: None DISCHARGE PLAN: DISPOSITION: DISCHARGE CONDITION: TIME SPENT ON DISCHARGE: Greater than 30 minutes. Vital Signs/I&Os Vital Signs Date Time Temp Pulse Resp B/P (MAP) Pulse Ox O2 Delivery O2 Flow Rate FiO2 08/25/20 19:00 96.1 66 16 121/64 94 Nasal Cannula 08/25/20 18:34 60 08/24/20 10:26 70.0 I&O- Last 24 Hours up to 6 AM 08/25/20 06:00 Intake Total 2442.5 ml Output Total 3507 ml Balance -1064.5 ml Laboratory Data Labs 24H Laboratory Tests 2 08/24/20 20:29: Blood Gas Bicarbonate Standard 22.9, Arterial Blood pH 7.326L, Arterial Blood Partial Pressure CO2 47.1H, Arterial Blood Partial Pressure O2 110.8H, Arterial Blood Total CO2 25.5, Arterial Blood HCO3 24.1, Arterial Blood Base Excess -1.9, Arterial Blood Oxygen Saturation 98.4, Arterial Blood Gas Vent Mode prvc, Arterial Blood Gas Tidal Volume 400, Arterial Blood Gas Respiration Rate 32, Arterial Blood Gas Liter Flow 70, Arterial Blood Gas PEEP 5, Oxygen Delivery Device MECHAN. VENT 08/24/20 21:12: Bedside Glucose (Misc Panel) 125H 08/25/20 00:00: Anion Gap 8, Glomerular Filtration Rate > 60.0, Calcium Level 7.9L, Phosphorus Level 4.8, Albumin 1.6L 08/25/20 05:37: Blood Gas Bicarbonate Standard 23.0, Arterial Blood pH 7.312L, Arterial Blood Partial Pressure CO2 49.7H, Arterial Blood Partial Pressure O2 72.0L, Arterial Blood Total CO2 26.1, Arterial Blood HCO3 24.6, Arterial Blood Base Excess -1.7, Arterial Blood Oxygen Saturation 93.2L, Anion Gap 9, Glomerular Filtration Rate > 60.0, Calcium Level 7.4L, Phosphorus Level 4.6, Nucleated Red Blood Cells % (auto) 0.2H, Activated Partial Thromboplast Time 28.8, Whole Blood Ionized Christopher cium 4.4L, Magnesium Level 2.3 08/25/20 12:07: Bedside Glucose (Misc Panel) 130H CBC/BMP Laboratory Tests 08/25/20 00:00 08/25/20 05:37 FSBS Laboratory Tests Test 08/24/20 21:12 08/25/20 12:07 Range/Units Bedside Glucose (Misc Panel) 125 130 83-110 MG/DL Microbiology Microbiology 08/16/20 Gastrointestinal Tract Panel (PCR) - Final, Complete 08/16/20 Fungal Smear - Final, Resulted 08/16/20 Fungal Culture - Preliminary, Resulted 08/16/20 Yeast/Fungus Identification - Final, Resulted Asperigillus Fumigatus 08/16/20 Gram Stain - Final, Complete 08/16/20 Bronchoalveolar Lavage Culture - Final, Complete Mold Like Organism Discharge Medications Scheduled Alendronate Sodium (Alendronate Sodium) 35 Mg Tablet, 35 MG PO QWEEK, (Reported) Amlodipine Besylate (Amlodipine Besylate) 5 Mg Tablet, 5 MG PO BID, (Reported) Aspirin (Aspirin EC) 81 Mg Tablet.dr, 81 MG PO DAILY, (Reported) Atorvastatin Calcium (Atorvastatin Calcium) 40 Mg Tablet, 40 MG PO DAILY, (Reported) Atovaquone (Atovaquone) 750 Mg/5 Ml Oral.susp, 1,500 MG PO QAM, (Reported) Calcitonin Damascus (Calcitonin-Damascus) 3.7 Ml Sherwood.pump, 1 SPRAY NA DAILY, ( Reported) Calcium Carbonate/Vitamin D3 (Calcium 1,000 + D3 Caplet) 1 Each Tablet, 1 TAB PO DAILY, (Reported) Chlorhexidine Gluconate (Chlorhexidine Gluconate) 473 Ml Mouthwash, 15 ML SS BID, (Reported) Dexmedetomidine in 0.9 % NaCl (Precedex 400 Mcg/100 ml Inject) 400 Mcg/100 Ml Infus..btl, 1 INJ IV ASDIRECTED, (Reported) TITRATE PER PRECEDEX SEDATION RASS PROTOCOL Duloxetine Hcl (Duloxetine HCl) 60 Mg Capsule.dr, 60 MG PO BID, (Reported) Famotidine (Famotidine) 40 Mg Tablet, 40 MG PO DAILY, (Reported) Heparin Sodium,Porcine/Pf (Heparin Sod 5,000 Unit/ml Syrg) 5,000 Unit/1 Ml Syringe, 5,000 UNIT SC BID, (Reported) Hydroxychloroquine Sulfate (Hydroxychloroquine Sulfate) 200 Mg Tablet, 200 MG PO BID, (Reported) Insulin Human Regular (Humulin R) 100 Unit/1 Ml Vial, 1 DOSE SC Q6H, (Reported) PER SLIDING SCALE Lidocaine (Lidocaine) 5% Adh..patch, 1 PATCH TOP DAILY, (Reported) ON 12 HOURS OFF 12 HOURS Losartan Potassium (Losartan Potassium) 25 Mg Tablet, 25 MG PO DAILY, (Reported) Methocarbamol (Robaxin-750) 750 Mg Tablet, 1 TAB PO TID Metoprolol Tartrate (Metoprolol Tartrate) 25 Mg Tab, 25 MG PO DAILY, (Reported) Pantoprazole Sodium (Pantoprazole Sodium) 40 Mg Vial, 40 MG IV DAILY, (Reported) GIVEN AT [facility]. [id number],Iso (Zosyn 3.375 gm/50 ml Galaxy) 3.375 Gm/50 Ml Froz.piggy, 1 BARON IV Q12H, (Reported) Pramipexole Di-HCl (Pramipexole Dihydrochloride) 1 Mg Tablet, 1 MG PO QHS, (Reported) Quetiapine Fumarate (Quetiapine Fumarate) 25 Mg Tablet, 25 MG PO QHS, (Reported) Scheduled PRN Albuterol Sulfate (Ventolin Hfa) 18 Gm Hfa.aer.ad, 2 PUFF INH Q4H PRN for SOB/WHEEZING, (Reported) Alprazolam (Alprazolam) 0.5 Mg Tablet, 0.5 MG PO QHS PRN for ANXIETY/AGITATION, (Reported) Fentanyl Citrate/Pf (Fentanyl 100 Mcg/2 ml Carpujct) 100 Mcg/2 Ml Cartridge, 100 MCG IV Q1H PRN for BREAKTHROUGH PAIN, (Reported) Fluticasone Propionate (Fluticasone Propionate) 16 Gm Sherwood.susp, 1 SPRAY NARES DAILY PRN for CONGESTION, (Reported) Ipratropium/Albuterol Sulfate (Iprat-Albut 0.5-3(2.5) mg/3 ml) 3 Ml Ampul.neb, 1 VIAL INH Q4H PRN for SOB/WHEEZING, (Reported) Methocarbamol (Methocarbamol) 750 Mg Tablet, 750 MG PO TID PRN for MUSCLE SPASMS, (Reported) Midazolam HCl/Pf (Midazolam 2 mg/2 ml Syringe) 2 Mg/2 Ml Syringe, 2 MG IV Q30MIN PRN for ANXIETY/AGITATION, (Reported) Mineral Oil/Petrolatum,White (Lubricant Eye Ointment) 3.5 Gm Oint...g., 1 APPLIC OU Q4H PRN for DRY EYES, (Reported) Nitroglycerin (Nitroglycerin) 0.4 Mg Sub, 0.4 MG SL NITRO PRN for CHEST PAIN, (Reported) Tizanidine HCl (Tizanidine HCl) 4 Mg Capsule, 4 MG PO TID PRN for MUSCLE SPASMS, (Reported) Allergies Coded Allergies: No Known Allergies (Unverified , 12/19/18) MIKE SANCHEZ MD Aug 25, 2020 20:32
[2020-08-26] MEDS ORDERED: VORICONAZOLE 200 MG PO SCH ×2 (09:00)
== END 2020-08-25 19:08 | disposition expired | DRG 870 ==
LOC: M PCU 08-15 01:36 → M ICU 08-24 16:36
PROVIDERS: ADMIT Internal Medicine Pulmonary Disease; ATTEND Internal Medicine Pulmonary Disease
PROC: 6A601ZZ Phototherapy of Skin, Multiple (ICD-10-PCS; 2020-08-15)
PROC: 5A1955Z Respiratory Ventilation, Greater than 96 Consecutive Hours (ICD-10-PCS; principal; 2020-08-16)
PROC: 0BJ08ZZ Inspection of Tracheobronchial Tree, Via Natural or Artificial Opening Endoscopic (ICD-10-PCS; 2020-08-16)
PROC: 05HN33Z Insertion of Infusion Device into Left Internal Jugular Vein, Percutaneous Approach (ICD-10-PCS; 2020-08-17)
PROC: 30233N1 Transfusion of Nonautologous Red Blood Cells into Peripheral Vein, Percutaneous Approach (ICD-10-PCS; 2020-08-18)
DX: A41.9 Sepsis, unspecified organism (principal); J18.9 Pneumonia, unspecified organism; J96.01 Acute respiratory failure with hypoxia; G93.41 Metabolic encephalopathy; E43 Unspecified severe protein-calorie malnutrition; R65.21 Severe sepsis with septic shock; N17.9 Acute kidney failure, unspecified; R04.89 Hemorrhage from other sites in respiratory passages; E87.2 Acidosis; E87.1 Hypo-osmolality and hyponatremia; I95.9 Hypotension, unspecified; D69.6 Thrombocytopenia, unspecified; M06.9 Rheumatoid arthritis, unspecified; I25.10 Atherosclerotic heart disease of native coronary artery without angina pectoris; Z51.5 Encounter for palliative care; Z66 Do not resuscitate; Z79.899 Other long term (current) drug therapy; Z79.82 Long term (current) use of aspirin; Z79.4 Long term (current) use of insulin; Z86.73 Personal history of transient ischemic attack (TIA), and cerebral infarction without residual deficits; Z95.2 Presence of prosthetic heart valve; F41.9 Anxiety disorder, unspecified; F32.9 Major depressive disorder, single episode, unspecified; E78.00 Pure hypercholesterolemia, unspecified; J44.9 Chronic obstructive pulmonary disease, unspecified; F17.200 Nicotine dependence, unspecified, uncomplicated; G25.81 Restless legs syndrome; I71.4 Abdominal aortic aneurysm, without rupture; K21.9 Gastro-esophageal reflux disease without esophagitis; M19.90 Unspecified osteoarthritis, unspecified site; N18.30 Chronic kidney disease, stage 3 unspecified; I48.91 Unspecified atrial fibrillation; R68.0 Hypothermia, not associated with low environmental temperature; E11.65 Type 2 diabetes mellitus with hyperglycemia; D63.1 Anemia in chronic kidney disease